=== PATIENT | female | born 1960 | race Caucasian/White ===

== ENCOUNTER 2022-06-24 13:10 | Outpatient (CLI) | payer MEDICARE, OTHER, SELFPAY ==
[2022-06-24 15:20] LABS: Prothrombin Time 31.7 Seconds
[2022-06-24 15:52] LABS: Creatinine Urine 14.8 mg/dL
[2022-06-24 15:57] LABS: Microalbumin Creatinine Ratio 60 mg/g (0-30); Microalbumin Urine < 1 mg/dL
== END 2022-06-24 13:11 | disposition home or self-care (01) ==
PROVIDERS: PCP Internal Medicine; Visit Provider Internal Medicine
DX: E11.9 Type 2 diabetes mellitus without complications (principal); I48.91 Unspecified atrial fibrillation
CPT/HCPCS: 82043; 82570; 85610

== ENCOUNTER 2022-07-14 13:48 | Outpatient (CLI) | payer OTHER, SELFPAY ==
--- NOTE | 2022-07-14 14:00 | CRLHL7_ITS ---
For Patients: As a result of the Cures Act, medical imaging exams and procedure reports are released immediately into your electronic medical record. You may view this report before your referring provider. If you have questions, please contact your health care provider. BILATERAL SCREENING MAMMOGRAM WITH COMPUTER-AIDED DETECTION AND TOMOSYNTHESIS TECHNIQUE: CC and MLO views were obtained. These mammographic images have been obtained using full-field digital technique. These mammographic images were interpreted with the benefit of computer-aided detection. Breast Tomosynthesis was used in this interpretation. COMPARISON FILM: 03/24/14, 03/01/13. FINDINGS: The breasts are heterogeneously dense, which may obscure small masses IMPRESSION: There is no radiographic evidence for malignancy. ASSESSMENT: BI-RADS Category 1: Negative RECOMMENDATION: Routine screening mammogram in 1 year. A lay language report of this examination will be provided to the patient. Jasper Amador M.D. Diagnostic Radiologist [email or web address] Transcribed: 2:47 p.mStephany baca/Dictated by: Jasper Amador MD @ 07/15/2022 9:51:00 AM (Electronically Signed)
--- NOTE | 2022-09-11 18:32 | ED.NURSE ---
Patient called as her med planning assistant (lives at [facility]) gave her incorrect evening medications. She reports she was given oxycodone instead of diluadid. She wants advice on what to take, interactions, etc. Patient advised to contact poison control for information re: interactions, etc. Patient understands she can call primary care # for triage line assistance as well. We are available to evaluate patient in emergency department if she'd like. Patient verbalizes understanding, denies further questions or concerns.
== END 2022-07-14 13:49 | disposition home or self-care (01) ==
LOC: MAMMO 13:50
PROVIDERS: PCP Internal Medicine; Visit Provider Internal Medicine
DX: Z12.31 Encounter for screening mammogram for malignant neoplasm of breast (principal); R92.2 Inconclusive mammogram
CPT/HCPCS: 77063; 77067

== ENCOUNTER 2022-11-11 09:28 | Outpatient (CLI) | payer MEDICAID, SELFPAY ==
--- OUTSIDE RECORDS SUMMARY | 2022-11-11 09:31 | XMS_ITS | Continuity of Care Document ---
Author Name Unknown Organization [facility] Address [address] [place] [id number] Care Team Providers Care Breaker Engineer Name Role Phone Simba Lowry CRNA Unavailable Unavailable Procedures Procedure Date ANESTH, HEAD/NECK/PTRUNK ANESTH PERC IMG TX SP PROC Advance Directives Directive Yes / No Effective Date File Name No Information Encounters Encounter Description Practice Location Reason(s) For Visit Diagnoses Date Provider Providers Copied on Encounter [facility], [address] [place] [address], [id number], [facility] No Information Alen Cottrell. [address] [place] [address], [id number], . tel:[phone] Referring Provider: Michelle Cummings, [address] [place] [address], [id number] . tel:[phone] [facility], [address] [place] [address], [id number], [facility] No Information Asad Ramirez. [address], [place], [place], [id number], . tel:[phone] Referring Provider: Too Del Cid, [address] [place], [address] . tel:[phone] Family History Family Member Type Diagnosis Age At Onset No Information Payers Payer name Insurance type Covered alliance party ID Authoriza tion(s) No Information Social History Type Description Quantity Date Captured Comments Sex Female Smoking Status No Information Chief Complaint And Reason For Visit No Information Reason For Referral Reason For Referral No Information Plan Of Treatment Date Type Action Status No Information History Of Present Illness Encounter Date Complaint History Of Prese nt Illness No Information Functional Status Date Functional Assessmen t No Information Instructions Date Instruction Additional Infor mation No Information Assessments Type Assessment Date No Information Patient Care Teams Name Effective Dates (start - stop) Status Members No Information
--- OUTSIDE RECORDS SUMMARY | 2022-11-11 09:31 | XMS_ITS | Continuity of Care Document ---
Author Name Unknown Organization [facility] Address [address] [place] [id number] Care Team Providers Care Road Inspector Name Role Phone [facility] Unavailable Unav ailable Procedures Procedure Date IMPLANT NEUROELECTRODES IMPLANT NEUROELECTRODES INSRT/REDO SPINE N GENERATOR Implt neurostim elctr each FLUOROGUIDE FOR SPINE INJECT IMPLANT NEUROELECTRODES IMPLANT NEUROELECTRODES IMPLANT NEUROELECTRODES Implt neurostim elctr each Inj, bupivacaine liposome FLUOROGUIDE FOR SPINE INJECT No Charge For Visit Per Prov Advance Directives Directive Yes / No Effective Date File Name No Information Encounters Encounter Description Practice Location Reason(s) For Visit Diagnoses Date Provider Providers Copied on Encounter [facility], [address] [place] [address], [id number], [facility] No Information [facility]. [address] [place], [place], [id number], [place]. tel:[phone] Referring Provider: Michelle Cummings, [address] [place], [address]. tel:[phone] [facility], [address] [place], [place], [id number], [facility] No Information [facility]. [address] [facility] [place], [place], [id number], [place]. tel:[phone] Referring Provider: Too Del Cid, [address] [place], [address]. tel:[phone] [facility], [address] [place], [place], [id number], [place] [facility] No Information [facility]. [address] [place], [place], [id number], . tel:[phone] Referring Provider: Michelle Cummings, [address] [place], [address]. tel:[phone] Family History Family Member Type Diagnosis Age [...]
--- OUTSIDE RECORDS SUMMARY | 2022-11-11 09:32 | XMS_ITS | Continuity of Care Document ---
Author Name Unknown Organization [facility] rajiv Address [address] [place] [address] Phone Care Team Providers Care Hotel General Manager Name Role Phone Dionte Granados Unavailable Unavailable Allergies, Adverse Reactions, Alerts Substance Reaction Status Criticality ragweed pollen Active No Informatio n tree and shrub pollen Active No Inf ormation mold Active No Information TRAMADOL HCL Rash Active No Information troleandomycin Active No Informatio n tolmetin Active No Information sulfanilamide Rash Active No Information penicillin G procaine Rash Active No Inf ormation NSAIDS (Non-Steroidal Anti-Inflammatory Drug) Active No Information naproxen Rash Active No Information Macrolide Antibiotics Active No Inf ormation etodolac GI ProblemsEdema Active No Informat ion ciprofloxacin Rash Active No Information Cephalosporins Unknown Active No Informatio n CEPHALEXIN MONOHYDRATE Rash Active No In formation trimethoprim RashEdema Active No Information sulfamethoxazole RashEdema Active No Informat ion aspirin GI Bleeding Active No Information adhesive Rash Active No Information Sulfa (Sulfonamide Antibiotics) Rash Active No Information PENICILLIN Rash Active No Information erythromycin base RashEdema Active No Informa tion cephalexin RashEdema Active No Information Medications Medication Instructions Dosage Effective Dates (start - stop) Status Comments pregabalin 150 mg capsule take 1 capsule by oral route 3 times every day 150 MG - Active topiramate 25 mg tablet Take two tablets at bedtime - Active haloperidol 0.5 mg tablet Take 0.5-1 Tablets (0.25-0.5 mg) by mouth 2 times daily if needed for Agitation (anxiety). Further refills will be prescribed during an appointment - Active hydroxyzine HCl 50 mg tablet Take one tablet every six hours as needed - Active cyclobenzaprine 10 mg tablet take 1 tablet by oral route 3 times every day 10 MG - Active triamcinolone acetonide 0.1 % topical cream APPLY THIN LAYER TO ITCHY AREA OF SKIN 1-2X DAILY FOR UP TO 2 WEEKS AT A TIME , TAKE 2 WEEKS OF THEN REPEAT NEEDED FOR FLARES - Active ketoconazole 2 % shampoo WASH TO AFFECTED AREA ON SCALP AND CHEST 3 TIMES WEEKLY LATHER AND LET SIT FOR SEVERAL MINUTES BEFORE RINSING - Active clindamycin 1 % lotion - Active sumatriptan 50 mg tablet One tablet at onset of migraine headache, may repeat in 2 hours if needed. Give at minimum 2hrs apart. Max Dose: 100mg per 24hrs. Maximum use 10 tablets per month. - Active Triple Antibiotic 3.5 mg-400 unit-5,000 unit/gram topical ointment - Active cephalexin 500 mg capsule take 1 capsule by oral route every 6 hours 500 MG - Active dextroamphetamine sulfate 5 mg tablet take 1 tablet by oral route 2 times every day 5 MG - Active HYDROXYZINE HCL (unknown strength) Not Available - Active prazosin 1 mg capsule take 2 capsule by oral route every day 2 MG - Active nystatin 100,000 unit/gram topical cream apply by topical route 3 times every day to the affected area(s) Not Available - Active ammonium lactate 12 % topical cream - Active senna 8.6 mg capsule take 1 capsule by oral route 2 times every day 8.6 MG - Active sotalol 120 mg tablet take 1 tablet by oral route 2 times every day 120 MG - Active loratadine 10 mg tablet take 1 tablet by oral route every day 10 MG - Active metoprolol tartrate 100 mg tablet take 1 tablet by oral route 2 times every day with meals 100 MG - Active Vitamin D2 1,250 mcg (50,000 unit) capsule - Active Linda-Lanta 200 mg-200 mg-20 mg/5 mL oral suspension take 10 milliliter by oral route between meals and at bedtime as needed as needed 10.00 milliliter - Active Replens vaginal gel as needed - Active cyanocobalamin (vit B-12) 1,000 mcg/mL injection solution inject 1 milliliter by subcutaneous route every month 1000 MCG - Active doxycycline monohydrate 50 mg capsule take 1 capsule by oral route every 12 hours 50 MG - Active ALBUTEROL SULFATE (unknown strength) inhale 1 milliliter by nebulization route 4 times every day Not Available - Active ondansetron HCl 4 mg tablet take 1 tablet by oral route every day 4 MG - Active Beano 300 unit disintegrating tablet - Active Gas Relief Extra Strength 125 mg capsule - Active metformin 500 mg tablet take 1 tablet by oral route every day with morning and evening meals 500 MG - Active polyethylene glycol 3350 17 gram/dose oral powder take (17G) by oral route every day mixed with 8 oz. water, juice, soda, coffee or tea - Active Wixela Inhub 250 mcg-50 mcg/dose powder for inhalation inhale 1 puff by inhalation route 2 times every day in the morning and evening approximately 12 hours apart 1.00 puff - Active zolpidem 5 mg tablet take 1 tablet by ORAL route every day at bedtime as needed 5 MG - Active Biotene Dry Mouth Oral Rinse mouthwash - Active WARFARIN SODIUM (unknown strength) take 1 tablet by oral route every day Not Available - Active Senexon-S 8.6 mg-50 mg tablet take 2 tablet by oral route 2 times every day 2 tablet - Active Flonase Allergy Relief 50 mcg/actuation nasal spray,suspension spray 1 - 2 spray by intranasal route every day in each nostril as needed 50-100 MCG - Active chlorhexidine gluconate 0.12 % mouthwash place 15 milliliter by mucous membrane route 2 times every day in the mouth (after meals), swish in mouth for 30 seconds then spit out 15.00 milliliter - Active Banophen 25 mg capsule take 2 capsule by oral route every 4 - 6 hours as needed as needed 50 MG - Active Nystop 100,000 unit/gram topical powder apply by topical route 2 times every day to the affected area(s) as needed 0.00 - Active Milk of Magnesia 400 mg/5 mL oral suspension take 30 milliliter by oral route every day as needed, followed by a full glass (8 oz) of liquid 30.00 milliliter - Active Lyrica 100 mg capsule take 1 capsule by oral route 3 times every day 100 MG - Active pantoprazole 40 mg tablet,delayed release take 1 tablet by oral route every day 40 MG - Active sertraline 100 mg tablet take 1 tablet by oral route every day 100 MG - Active torsemide 20 mg tablet take 2 tablet by oral route every day 40 MG - Active clindamycin HCl 150 mg capsule take 1 capsule by oral route every 6 hours 150 MG - Active hydrocortisone 1 % topical ointment apply by topical route 2 times every day a thin layer to the affected area(s) 0.00 - Active Tylenol Extra Strength 500 mg tablet take 2 tablet by oral route every 4 - 6 hours as needed not to exceed 8 tablets per 24hrs 1000 MG - Active atorvastatin 40 mg tablet take 1 tablet by oral route every day 40 MG - Active azelastine 137 mcg (0.1 %) nasal spray aerosol spray 2 spray by intranasal route 2 times every day in each nostril - Active Calci-Mix 500 mg calcium (1,250 mg) capsule - Active ipratropium 0.5 mg-albuterol 3 mg (2.5 mg base)/3 mL nebulization soln inhale 3 milliliter by nebulization route 4 times every day 3.00 milliliter - Active Dilaudid 2 mg tablet take 1 -2 tablets by oral route every 4 - 6 hours as needed for chronic pain; max 5/day - No Longer Active Fill when able Dilaudid 2 mg tablet take 1 -2 tablets by oral route every 4 - 6 hours as needed for chronic pain; max 5/day - No Longer Active may fill and start 06/30 Emgality Pen 120 mg/mL subcutaneous pen injector inject (120MG) by subcutaneous route every month in the abdomen, thigh, outer upper arm, or buttocks 120 MG - No Longer Active Vistaril 50 mg capsule take 1 capsule by oral route 4 times daily as needed every 4-6 hours - No Longer Active Procedures Procedure Date Foll-up eval q3mo opiod tx OFFICE VISIT, EST TELEMEDICINE Foll-up eval q3mo opiod tx OFFICE VISIT, EST TELEMEDICINE PT EVAL MOD COMPLEX 30 MIN Psych Dx Eval Psych Dx Eval OFFICE/OUTPATIENT VISIT, EST Drug Urine Toxology With Chromatography Drug test def 15-21 classes Foll-up eval q3mo opiod tx OFFICE VISIT, EST TELEMEDICINE Foll-up eval q3mo opiod tx OFFICE VISIT, EST TELEMEDICINE Foll-up eval q3mo opiod tx OFFICE VISIT, EST TELEMEDICINE Foll-up eval q3mo opiod tx OFFICE/OUTPATIENT VISIT, EST Foll-up eval q3mo opiod tx OFFICE/OUTPATIENT VISIT, EST INJECT TRIGGER POINTS, =/> 3 Foll-up eval q3mo opiod tx INJECT TRIGGER POINTS, =/> 3 OFFICE/OUTPATIENT VISIT, EST Foll-up eval q3mo opiod tx OFFICE VISIT, EST TELEMEDICINE INJECT TRIGGER POINTS, =/> 3 Foll-up eval q3mo opiod tx OFFICE/OUTPATIENT VISIT, EST Drug Urine Toxology With Chromatography Drug test def 1-7 classes INJECT TRIGGER POINTS, =/> 3 PT-FOCUSED HLTH RISK ASSMT OFFICE/OUTPATIENT VISIT, EST Foll-up eval q3mo opiod tx Foll-up eval q3mo opiod tx OFFICE VISIT, EST TELEMEDICINE INJECT TRIGGER POINTS, =/> 3 OFFICE/OUTPATIENT VISIT, EST Foll-up eval q3mo opiod tx OFFICE VISIT, EST TELEMEDICINE ANALYZE NEUROSTIM, COMPLEX INJECT TRIGGER POINTS, =/> 3 Foll-up eval q3mo opiod tx OFFICE/OUTPATIENT VISIT, EST INJ TRIGGER POINT, 1/2 MUSCL Foll-up eval q3mo opiod tx OFFICE/OUTPATIENT VISIT, EST INJECT TRIGGER POINTS, =/> 3 Foll-up eval q3mo opiod tx OFFICE/OUTPATIENT VISIT, EST ANALYZE NEUROSTIM, COMPLEX INJECT TRIGGER POINTS, =/> 3 Foll-up eval q3mo opiod tx OFFICE/OUTPATIENT VISIT, EST ANALYZE NEUROSTIM, COMPLEX PT-FOCUSED HLTH RISK ASSMT INJECT TRIGGER POINTS, =/> 3 Foll-up eval q3mo opiod tx OFFICE/OUTPATIENT VISIT, EST INJECT TRIGGER POINTS, =/> 3 Injection, bupivicaine hydro OFFICE/OUTPATIENT VISIT, EST Foll-up eval q3mo opiod tx ANALYZE NEUROSTIM, COMPLEX Foll-up eval q3mo opiod tx OFFICE/OUTPATIENT VISIT, EST SCS Post Op Satellite OFFICE VISIT, EST TELEMEDICINE Foll-up eval q3mo opiod tx SCS Post Op Valorie No Charge For Visit Per Prov IMPLANT NEUROELECTRODES ASC IMPLANT NEUROELECTRODES ASC INSRT/REDO SPINE N GENERATOR OFFICE VISIT, EST TELEMEDICINE Foll-up eval q3mo opiod tx INJECT TRIGGER POINTS, =/> 3 Kenalog Triamcinolone acetonide inj Foll-up eval q3mo opiod tx OFFICE/OUTPATIENT VISIT, EST Ketorolac tromethamine inj SCS Lead Pull Satellite INJECT TRIGGER POINTS, =/> 3 Ketorolac tromethamine inj No Charge For Visit Per Prov SCS Mid Trial Satellite No Charge For Visit Per Prov IMPLANT NEUROELECTRODES ASC IMPLANT NEUROELECTRODES ASC Implt neurostim elctr each FLUOROGUIDE FOR SPINE INJECTION 020 Foll-up eval q3mo opiod tx OFFICE VISIT, EST TELEMEDICINE 20 Intramuscular Injection Ketorolac tromethamine inj Intramuscular Injection No Charge For Visit Per Prov OFFICE VISIT, EST TELEMEDICINE 20 Foll-up eval q3mo opiod tx OFFICE VISIT, EST TELEMEDICINE 20 Foll-up eval q3mo opiod tx OFFICE VISIT, EST TELEMEDICINE 20 Foll-up eval q3mo opiod tx Foll-up eval q3mo opiod tx OFFICE VISIT, EST TELEMEDICINE 20 Psych Dx Eval Foll-up eval q3mo opiod tx OFFICE VISIT, EST TELEMEDICINE 20 OFFICE VISIT, EST TELEMEDICINE 20 Foll-up eval q3mo opiod tx Foll-up eval q3mo opiod tx OFFICE VISIT, EST TELEMEDICINE 20 Foll-up eval q3mo opiod tx OFFICE VISIT, EST TELEMEDICINE 20 Foll-up eval q3mo opiod tx OFFICE VISIT, EST TELEMEDICINE 20 Foll-up eval q3mo opiod tx OFFICE VISIT, EST TELEMEDICINE 20 OFFICE VISIT, [facility] TELEMEDICINE 20 Foll-up eval q3mo opiod tx OFFICE/OUTPATIENT VISIT, EST Drug Urine Toxology With Chromatography SCS Trial Procedure Ordered INJ TRIGGER POINT, 1/2 MUSCL OFFICE/OUTPATIENT VISIT, NEW Advance Directives Directive Yes / No Effective Date File Name No Information Encounters Encounter Description Practice Location Reason(s) For Visit Diagnoses Date Provider Providers Copied on Encounter OFFICE VISIT, [facility], [address] [place], [place], [id number] , [place] tel:[phone] [facility] [place] Widespread pain (chief complaint) Pain in right kneePain in left ankle and joints of left footRadiculopa thy, lumbar regionMyalgia, other sitePostlamine ctomy syndrome, not elsewhere classifiedLong term (current) use of opiate analgesic 3 Mayra Rapp. [address], [place], [place], [id number] , [place]. tel:[phone] anticoagulant prescriber: Aleksey Smith [address], [address]. tel:[phone] Provider: Too Del Cid, [address] [place], [address]. tel:[phone] OFFICE VISIT, [facility], [address] [place], [place], [id number] , [place] tel:[phone] [facility] Widespread pain (chief complaint) Postlaminectom y syndrome, not elsewhere classifiedRadi culopathy, lumbar regionMyalgia, other sitePain in left ankle and joints of left footPain in right kneeLong term (current) use of opiate analgesic 3 Shay Morales. [address], [place], [id number] , [place]. tel:[phone] anticoagulant prescriber: Aleksey Smith [address], [address]. tel:[phone] [facility], [address] [place] [address], [id number] , [place] tel:[phone] [facility] [place] pain (chief complaint) Postlaminectom y syndrome, not elsewhere classified 2 Indu Dalal. [address] [place] [address], [id number] , [place]. tel:[phone] Psych Dx Eval [facility], [address] [place] [address], [id number] , [place] tel:[phone] Telehealth Pain disorder with related psychological factorsPost-tr aumatic stress disorder, unspecified 2 Tess Cristiano Peg. [address] [place] [address], [id number] , [place]. tel:[phone] Referring Provider: Too Del Cid, [address] [place] [address], [address]. tel:[phone] Psych Dx al [facility], [address] [place] [address], [id number] , [place] tel:[phone] Telehealth Pain disorder with related psychological factorsAnxiety disorder 2 Tess Cristiano Peg. [address] [place] [address], [id number] , [place]. tel:[phone] OFFICE/OUTPAT IENT VISIT, EST [facility], [address] [place] [address], [id number] , [place] tel:[phone] [facility] [place] Widespread pain (chief complaint) Pain in right hipPain in right kneePain in left ankle and joints of left footRadiculopa thy, lumbar regionPostlami nectomy syndrome, not elsewhere classifiedLong term (current) use of opiate analgesicMyalg ia, other site 2 Heriberto Gage. [address] [place] [address], [id number] , [place]. [phone] anticoagulant prescriber: Aleksey Smith, [address], [address]. tel:[phone] Provider: Too Del Cid, [address] [place] [address], [id number]. tel:[phone] OFFICE VISIT, EST TELEMEDICINE [facility], [address] [place] [address], [id number] , [place] tel:[phone] [facility] [place] Back Pain (chief complaint) Pain in right kneePain in left ankle and joints of left footRadiculopa thy, lumbar regionMyalgia, other sitePostlamine ctomy syndrome, not elsewhere classifiedLong term (current) use of opiate analgesicPain in right hip Apr- 2 Nunezjonny Rapp. [address] [place] [address] [address], [place], [place], [id number] , [place]. tel:[phone] anticoagulant prescriber: Aleksey Smith, [address], [address]. tel:[phone] OFFICE VISIT, EST TELEMEDICINE [facility], [address] [place] [address], [id number] , [place] tel:[phone] [facility] Back Pain (chief complaint) Pain in right kneePain in left ankle and joints of left footRadiculopa thy, lumbar regionMyalgia, other sitePostlamine ctomy syndrome, not elsewhere classifiedLong term (current) use of opiate analgesic Mar- 2 Nunez Dionte. [address] [place] [address] [address], [place], [place], [id number] , [place]. tel:[phone] anticoagulant prescriber: Aleksey Smith, [address], [address]. tel:[phone] OFFICE VISIT, EST TELEMEDICINE [facility], [address] [place] [address], [id number] , [place] tel:[phone] [facility] Back Pain (chief complaint) Pain in right kneePain in left ankle and joints of left footRadiculopa thy, lumbar regionMyalgia, other sitePostlamine ctomy syndrome, not elsewhere classifiedLong term (current) use of opiate analgesic Sep-2 2 Nunez Dionte. [address] [place] [address] [address], [place], [place], [id number] , [place]. tel:[phone] Referring Provider: Too Del Cid, [address] [place] [address], [address]. tel:[phone] OFFICE/OUTPAT IENT VISIT, [facility], [address] [place] [address], [id number] , [place] tel:[phone] [facility] Back Pain (chief complaint) Pain in right kneePain in right ankle and joints of right footPain in left ankle and joints of left footRadiculopa thy, lumbar regionMyalgia, other sitePostlamine ctomy syndrome, not elsewhere classifiedLong term (current) use of opiate analgesic 2 Nunez Dionte. [address] [place] [address] [address] [facility] [address], [place], [place], [id number] , [place]. tel:[phone] Referring Provider: Too Del Cid, [address] [place] [address], [id number]. tel:[phone] [facility], [address] [place] [address], [id number] , [place] tel:[phone] [facility] No Information 2 Will Too. [address] [place] [address], [id number] , [place]. tel:[phone] OFFICE/OUTPAT IENT VISIT, [facility], [address] [place] [address], [id number] , [place] tel:[phone] [facility] Back Pain (chief complaint) Pain in right shoulderPain in right kneePain in right ankle and joints of right footPain in left ankle and joints of left footRadiculopa thy, lumbar regionMyalgia, other sitePostlamine ctomy syndrome, not elsewhere classifiedLong term (current) use of opiate analgesic 2 Nuneznadeen Rapp. [address] [place] [address] [address], [place], [id number] , [place]. tel:[phone] Referring Provider: Too Del Cid, [address] [place] [address], [id number]. tel:[phone] OFFICE/OUTPAT IENT VISIT, [facility], [address] [place] [address], [id number] , [place] [phone] [facility] Back Pain (chief complaint) Chronic migraine without aura, intractable, without status migrainosusPai n in right shoulderPain in right kneePain in right ankle and joints of right footPain in left ankle and joints of left footRadiculopa thy, lumbar regionMyalgia, other sitePostlamine ctomy syndrome, not elsewhere classifiedLong term (current) use of opiate analgesicSpond ylosis without myelopathy or radiculopathy, lumbar region 2 Mayra Rapp. [address] [place] [address] [address], [facility] [place], [id number] , [place]. tel:[phone] Referring Provider: Too Del Cid, [address] [place] [address], [id number]. tel:[phone] OFFICE VISIT, EST [facility], [address] [place] [address], [id number] , [place] [phone] [facility] Back Pain (chief complaint) Chronic migraine without aura, intractable, without status migrainosusPai n in right shoulderPain in right kneeRadiculopa thy, lumbar regionMyalgia, other sitePostlamine ctomy syndrome, not elsewhere classifiedLong term (current) use of opiate analgesicPain in left ankle and joints of left footPain in right ankle and joints of right foot 2 Mayra Rapp. [address] [place] [address] [address], [place], [id number] , [place]. [phone] OFFICE/OUTPAT IENT VISIT, [facility], [address] [place] [address], [id number] , [place] [phone] [facility] Back Pain (chief complaint) Myalgia, other sitePain in right shoulderPain in right kneeRadiculopa thy, lumbar regionPostlami nectomy syndrome, not elsewhere classifiedLong term (current) use of opiate analgesicChron ic migraine without aura, intractable, without status migrainosus Aug- 2 Mayra Rapp. [address] [place] [address] [address], [place], [place], [id number] , [place]. tel:[phone] Referring Provider: Too Del Cid, [address] [place] [address], [id number]. tel:[phone] [facility], [address] [place] [address], [id number] , [place] tel:[phone] [facility] No Information 2 Will Too. [address] [place] [address], [id number] , [place]. tel:[phone] [facility], [address] [place] [address], [id number] , [place] tel:[phone] [facility] No Information 2 Mayra Rapp. [address] [place] [address] [address], [place], [place], [id number] , [place]. tel:[phone] Referring Provider: Too Del Cid, [address] [place] [address], [address]. tel:[phone] OFFICE/OUTPAT IENT VISIT, EST [facility], [address] [place] [address], [id number] , [place] tel:[phone] [facility] Back Pain (chief complaint) Radiculopathy, lumbar regionMyalgia, other sitePostlamine ctomy syndrome, not elsewhere classifiedLong term (current) use of opiate analgesicEncou nter for therapeutic drug level monitoringEnco unter for screening for other disorderPain in right shoulderPain in right knee Jul- 2 Mayra Rapp. [address] [place] [address] [address], [place], [place], [id number] , [place]. tel:[phone] Referring Provider: Caleb Ontiveros, [place] [address] [place], [address]. tel:[phone] OFFICE VISIT, [facility], [address] [place] [address], [id number] , [place] tel: [phone] [facility] Back Pain (chief complaint) Postlaminectom y syndrome, not elsewhere classifiedRadi culopathy, lumbar regionMyalgia, other siteLong term (current) use of opiate analgesic 2 Mayra Rapp. [address] [place] [address] [address], [place], [place], [id number] , [place]. tel:[phone] Referring Provider: Too Del Cid, [address] [place] [address], [address]. tel:[phone] OFFICE/OUTPAT IENT VISIT, [facility], [address] [place] [address], [id number] , [place] tel:[phone] [facility] Back Pain (chief complaint) Myalgia, other sitePostlamine ctomy syndrome, not elsewhere classifiedRadi culopathy, lumbar regionLong term (current) use of opiate analgesic 1 Mayra Rapp. [address] [place] [address] [address], [place], [place], [id number] , [place]. tel:[phone] Referring Provider: Too Del Cid, [address] [place] [address], [address]. tel:[phone] OFFICE VISIT, [facility], [address] [place] [address], [id number] , [place] tel:[phone] [facility] low back pain (chief complaint) Radiculopathy, lumbar regionMyalgia, other siteLong term (current) use of opiate analgesicPostl aminectomy syndrome, not elsewhere classified Nov- 1 Mayra Rapp. [address] [place] [address] [address], [place], [place], [id number] , [place]. tel:[phone] Referring Provider: Too Del Cid, [address] [place] [address], [address]. tel:[phone] [facility], [address] [place] [address], [id number] , [place] tel:[phone] [facility] Postlaminectom y syndrome, not elsewhere classified 1 Nuneznadeen Wilburnel. [address] [place] [address] [address], [place], [place], [id number] , [place]. tel:[phone] Referring Provider: Too Del Cid, [address] [place] [address], [address]. tel:[phone] OFFICE/OUTPAT IENT VISIT, [facility], [address] [place] [address], [id number] , [place] tel:[phone] [facility] Widespread pain (chief complaint) Postlaminectom y syndrome, not elsewhere classifiedRadi culopathy, lumbar regionMyalgia, other siteLong term (current) use of opiate analgesic 1 Mayra Rapp. [address] [place] [address] [address], [place], [place], [id number] , [place]. tel:[phone] Referring Provider: Too Del Cid, [address] [place] [address], [address]. tel:[phone] [facility], [address] [place] [address], [id number] , [place] tel:[phone] [facility] No Information 1 Mayra Rapp. [address] [place] [address] [address], [place], [place], [id number] , [place]. tel:[phone] Referring Provider: Too Del Cid, [address] [place] [address], [address]. tel:[phone] OFFICE/OUTPAT IENT VISIT, [facility], [address] [place] [address], [id number] , [place] tel:[phone] [facility] Widespread pain (chief complaint) Postlaminectom y syndrome, not elsewhere classifiedRadi culopathy, lumbar regionMyalgia, other siteLong term (current) use of opiate analgesic 1 Mayra Rapp. [address] [place] [address] [address], [place], [place], [id number] , [place]. [phone] Referring Provider: Too Del Cid, [address] [place] [address], [address]. tel:[phone] OFFICE/OUTPAT IENT VISIT, [facility], [address] [place] [address], [id number] , [place] tel:[phone] [facility] Widespread pain (chief complaint) Postlaminectom y syndrome, not elsewhere classifiedRadi culopathy, lumbar regionMyalgia, other siteLong term (current) use of opiate analgesic 1 Mayra Rapp. [address] [place] [address] [address], [place], [place], [id number] , [place]. [phone] Referring Provider: Too Del Cid, [address] [place] [address], [address]. tel:[phone] [facility], [address] [place] [address], [id number] , [place] [phone] [facility] Postlaminectom y syndrome, not elsewhere classified 1 Mayra Rapp. [address] [place] [address] [address], [place], [place], [id number] , [place]. [phone] Referring Provider: Too Del Cid, [address] [place] [address], [address]. tel:[phone] OFFICE/OUTPAT IENT VISIT, [facility], [address] [place] [address], [id number] , [place] [phone] [facility] Widespread pain (chief complaint) Radiculopathy, lumbar regionMyalgia, other siteLong term (current) use of opiate analgesicPostl aminectomy syndrome, not elsewhere classified 1 Mayra Rapp. [address] [place] [address] [address], [place], [place], [id number] , [place]. [phone] Referring Provider: Too Del Cid, [address] [place] [address], [address]. tel:[phone] [facility], [address] [place] [address], [id number] , [place] tel:[phone] [facility] Postlaminectom y syndrome, not elsewhere classified Apr-0 - 1 Mayra Rapp. [address] [place] [address] [address], [place], [place], [id number] , [place]. tel:[phone] Referring Provider: Too Del Cid, [address] [place] [address], [address]. tel:[phone] OFFICE/OUTPAT IENT VISIT, [facility], [address] [place] [address], [id number] , [place] tel:[phone] [facility] Widespread pain (chief complaint) Postlaminectom y syndrome, not elsewhere classifiedRadi culopathy, lumbar regionMyalgia, other siteLong term (current) use of opiate analgesicEncou nter for screening for other disorder Apr-0 - 1 Mayra Rapp. [address] [place] [address] [address], [place], [place], [id number] , [place]. tel:[phone] Referring Provider: Too Del Cid, [address] [place] [address], [address]. tel:[phone] OFFICE/OUTPAT IENT VISIT, [facility], [address] [place] [address], [id number] , [place] tel:[phone] [facility] Widespread pain (chief complaint) Postlaminectom y syndrome, not elsewhere classifiedRadi culopathy, lumbar regionMyalgia, other siteLong term (current) use of opiate analgesic Mar-0 1 Mayra Rapp. [address] [place] [address] [address], [place], [place], [id number] , [place]. tel:[phone] Referring Provider: Too Del Cid, [address] [place] [address], [address]. tel:[phone] [facility], [address] [place] [address], [id number] , [place] [phone] [facility] [place] Postlaminectom y syndrome, not elsewhere classified 1 Mayra Rapp. [address] [place] [address] [address], [facility], [place], [id number] , [place]. [phone] Referring Provider: Too Del Cid, [address] [place] [address], [address]. tel:[phone] [facility], [address] [place] [address], [id number] , [place] tel:[phone] [facility] [place] No Information 1 Mayra Rapp. [address] [place] [address] [address], [place], [place], [id number] , [place]. [phone] OFFICE/OUTPAT IENT VISIT, EST [facility], [address] [place] [address], [id number] , [place] tel:[phone] [facility] Widespread pain (chief complaint) Postlaminectom y syndrome, not elsewhere classifiedRadi culopathy, lumbar regionMyalgia, other siteLong term (current) use of opiate analgesicPain in right kneeChronic pain syndrome 1 Mayra Rapp. [address] [place] [address] [address], [place], [place], [id number] , [place]. tel:[phone] Referring Provider: Too Del Cid, [address] [place] [address], [address]. tel:[phone] OFFICE VISIT, EST TELEMEDICINE [facility], [address] [place] [address], [id number] , [place] [phone] [facility] [place] Widespread pain (chief complaint) Postlaminectom y syndrome, not elsewhere classifiedRadi culopathy, lumbar regionMyalgia, other siteLong term (current) use of opiate analgesicPain in right kneeChronic pain syndrome 0 Nunez Dionte. [address] [facility] [address], [place], [place], [id number] , [place]. tel:[phone] Referring Provider: Too Del Cid, [address] [place] [address], [address]. tel:[phone] [facility], [address] [place] [address], [id number] , [place] tel:[phone] [facility] Postlaminectom y syndrome, not elsewhere classified 0 Nunez Dionte. [address] [facility] [address], [place], [place], [id number] , [place]. tel:[phone] Referring Provider: Too Del Cid, [address] [place] [address], [address]. tel:[phone] [facility], [address] [place] [address], [id number] , [place] tel:[phone] [facility] Postlaminectom y syndrome, not elsewhere classified 0 Emiliano Martinez. [address] [place] [address], [id number] , [place]. tel:[phone] Referring Provider: Too Del Cid, [address] [place] [address], [address]. tel:[phone] OFFICE VISIT, EST TELEMEDICINE [facility], [address] [place] [address], [id number] , [place] tel:[phone] [facility] Widespread pain (chief complaint) Radiculopathy, lumbar regionMyalgia, other siteLong term (current) use of opiate analgesicPain in right kneeChronic pain syndromePostla minectomy syndrome, not elsewhere classified 3 0 Mayra Rapp. [address] [facility] [address], [place], [place], [id number] , [place]. tel:[phone] Referring Provider: Too Del Cid, [address] [place] [address], [address]. tel:[phone] OFFICE/OUTPAT IENT VISIT, EST [facility], [address] [place] [address], [id number] , [place] tel:[phone] [facility] [place] Widespread pain (chief complaint) Myalgia, other siteRadiculopa thy, lumbar regionPostlami nectomy syndrome, not elsewhere classifiedLong term (current) use of opiate analgesicPain in right kneeChronic pain syndrome 0 Mayra Rapp. [address] [facility] [address], [place], [place], [id number] , [place]. tel:[phone] Referring Provider: Too Del Cid, [address] [place] [address], [address]. tel:[phone] [facility], [address] [place] [address], [id number] , [place] tel:[phone] [facility] Postlaminectom y syndrome, not elsewhere classifiedMyal isabel, other site 0 Mayra Hays. [address] [facility] [address], [place], [place], [id number] , [place]. tel:[phone] Referring Provider: Too Del Cid, [address] [place] [address], [address]. tel:[phone] [facility], [address] [place] [address], [id number] , [place] tel:[phone] [facility] [place] Radiculopathy, lumbar regionPostlami nectomy syndrome, not elsewhere classified 0 Mayra Rapp. [address] [facility] [address], [place], [place], [id number] , [place]. tel:[phone] Referring Provider: Too Del Cid, [address] [place] [address], [address]. tel:[phone] [facility], [address] [place] [address], [id number] , [place] tel: [phone] [facility] No Information Oct-0 6-202 0 Will Too. [address] [place] [address], [id number] , [place]. tel:[phone] Referring Provider: Too Del Cid, [address] [place] [address], [address]. tel:[phone] OFFICE VISIT, EST TELEMEDICINE [facility], [address] [place] [address], [id number] , [place] tel:[phone] [facility] [place] Widespread pain (chief complaint) Radiculopathy, lumbar regionLong term (current) use of opiate analgesicMyalg ia, other sitePain in right kneeChronic pain syndromePostla minectomy syndrome, not elsewhere classified Sep-2 5-202 0 Mayra Rapp. [address] [facility] [address], [place], [place], [id number] , [place]. tel:[phone] Referring Provider: Too Del Cid, [address] [place] [address], [address]. tel:[phone] [facility], [address] [place] [address], [id number] , [place] tel:[phone] [facility] Radiculopathy, lumbar region Sep-0 3-202 0 Cummings Michelle. [address] [place] [address], [id number] , [place]. tel:[phone] Referring Provider: Too Del Cid, [address] [place] [address], [address]. tel:[phone] [facility], [address] [place] [address], [id number] , [place] tel:[phone] [facility] No Information Sep-0 3-202 0 Cummings Michelle. [address] [place] [address], [id number] , [place]. tel:[phone] Referring Provider: Too Del Cid, [address] [place] [address], [address]. tel:[phone] OFFICE VISIT, EST TELEMEDICINE [facility], [address] [place] [address], [id number] , [place] tel:[phone] [facility] [place] Widespread pain (chief complaint) Postlaminectom y syndrome, not elsewhere classifiedLong term (current) use of opiate analgesicRadic ulopathy, lumbar regionMyalgia, other sitePain in right kneeChronic pain syndrome 0 Nunez Dionte. [address] [place] [address] [address], [facility], [place], [id number] , [place]. tel: [phone] Referring Provider: Too Del Cid, [address] [place] [address], [address]. tel:[phone] [facility], [address] [place] [address], [id number] , [place] tel: [phone] [facility] [place] Postlaminectom y syndrome, not elsewhere classified 0 Nunez Dionte. [address] [place] [address] [address], [facility], [place], [id number] , [place]. tel: [phone] OFFICE VISIT, EST TELEMEDICINE [facility], [address] [place] [address], [id number] , [place] tel: [phone] [facility] Widespread pain (chief complaint) Pain in right kneeChronic pain syndromePostla minectomy syndrome, not elsewhere classifiedLong term (current) use of opiate analgesicRadic ulopathy, lumbar regionMyalgia, other site 0 Nunez Dionte. [address] [place] [address] [address], [place], [place], [id number] , [place]. tel:[phone] Referring Provider: Too Del Cid, [address] [place] [address], [address]. tel:[phone] OFFICE VISIT, EST TELEMEDICINE [facility], [address] [place] [address], [id number] , [place] tel:[phone] [facility] Widespread pain (chief complaint) Pain in right kneeChronic pain syndromePostla minectomy syndrome, not elsewhere classifiedLong term (current) use of opiate analgesicRadic ulopathy, lumbar regionMyalgia, other site 0 Mayra Rapp. [address] [place] [address] [address], [place], [place], [id number] , [place]. tel:[phone] Referring Provider: Too Del Cid, [address] [place] [address], [address]. tel:[phone] OFFICE VISIT, EST TELEMEDICINE [facility], [address] [place] [address], [id number] , [place] tel:[phone] [facility] Widespread pain (chief complaint) Postlaminectom y syndrome, not elsewhere classifiedPain in right kneeChronic pain syndromeLong term (current) use of opiate analgesicRadic ulopathy, lumbar regionMyalgia, other site 0 Mayra Rapp. [address] [place] [address] 100, [place], [place], [id number] , [place]. tel:[phone] Referring Provider: Too Del Cid, [address] [place] [address], [address]. tel:[phone] Psych Dx Eval [facility], [address] [place] [address], [id number] , [place] tel:[phone] [facility] Pain disorder with related psychological factorsPost-tr aumatic stress disorder, unspecified 0 Tess Aguialr. [address] [place] [address], [id number] , [place]. [phone] Referring Provider: Too Del Cid, [address] [place] [address], [address]. tel:[phone] OFFICE VISIT, EST TELEMEDICINE [facility], [address] [place] [address], [id number] , [place] [phone] [facility] Widespread pain (chief complaint) Chronic pain syndromePain in right kneePostlamine ctomy syndrome, not elsewhere classifiedLong term (current) use of opiate analgesicMyalg ia, other siteRadiculopa thy, lumbar region 0 Mayra Rapp. [address] [place] [address] [address], [place], [place], [id number] , [place]. tel:[phone] Referring Provider: Too Del Cid, [address] [place] [address], [address]. tel:[phone] OFFICE VISIT, [facility] TELEMEDICINE [facility], [address] [place] [address], [id number] , [place] tel:[phone] [facility] Widespread pain (chief complaint) Chronic pain syndromePain in right kneePostlamine ctomy syndrome, not elsewhere classifiedLong term (current) use of opiate analgesic Amos-0 2-202 0 Nunez Dionte. [address] [place] [address] [address], [place], [place], [id number] , [place]. tel:[phone] Referring Provider: Too Del Cid, [address] [place] [address], [address]. tel:[phone] OFFICE VISIT, [facility], [address] [place] [address], [id number] , [place] tel: [phone] [facility] Widespread pain (chief complaint) Postlaminectom y syndrome, not elsewhere classifiedPain in right kneeChronic pain syndromeLong term (current) use of opiate analgesic September- 0 Nunez Dionte. [address] [place] [address] [address], [place], [place], [id number] , [place]. tel:[phone] Referring Provider: Too Del Cid, [address] [place] [address], [address]. tel:[phone] OFFICE VISIT, EST [facility], [address] [place] [address], [id number] , [place] tel: [phone] [facility] Widespread pain (chief complaint) Postlaminectom y syndrome, not elsewhere classifiedPain in right kneeChronic pain syndromeLong term (current) use of opiate analgesicPain in left hip September-0 - 0 Nunez Dionte. [address] [place] [address] [address], [place], [place], [id number] , [place]. tel:[phone] OFFICE VISIT, EST [facility], [address] [place] [address], [id number] , [place] tel: [phone] [facility] Widespread pain (chief complaint) Postlaminectom y syndrome, not elsewhere classifiedPain in right kneeChronic pain syndromeLong term (current) use of opiate analgesic Apr-2 0-202 0 Nunez Dionte. [address] [place] [address] [address], [place], [place], [id number] , [place]. tel:[phone] Referring Provider: Too Del Cid, [address] [place] [address], [address]. tel:[phone] OFFICE VISIT, EST TELEMEDICINE [facility], [address] [place] [address], [id number] , [place] tel:[phone] [facility] Widespread pain (chief complaint) Postlaminectom y syndrome, not elsewhere classifiedPain in right kneeChronic pain syndromeLong term (current) use of opiate analgesic Apr-0 2-202 0 Nunez Dionte. [address] [place] [address] [address], [place], [place], [id number] , [place]. tel:[phone] Referring Provider: Too Del Cid, [address] [place] [address], [address]. 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 [address] [place] [address] [address], [place], [place], [id number] , [place]. tel:[phone] Referring Provider: Too Del Cid, [address] [place] [address], [address]. tel:[phone] [facility], [address] [place] [address], [id number] , [place] tel:[phone] [facility] [place] No Information Jul- 0-202 0 Mayra Rapp. [address] [place] [address] [address], [facility], [place], [id number] , [place]. tel:[phone] OFFICE/OUTPAT IENT VISIT, [facility], [address] [place], [place], [id number] , [place] tel:[phone] [facility] Widespread pain (chief complaint) Chronic pain syndromePostla minectomy syndrome, not elsewhere classifiedPain in right kneeLong term (current) use of opiate analgesic Jul-0 0 Mayra Rapp. [address] [facility] [address], [place], [place], [id number] , [place]. tel:[phone] Referring Provider: Too Del Cid, [address] [place], [address]. tel:[phone] OFFICE/OUTPAT IENT VISIT, [facility], [address] [place], [place], [id number] , [place] tel:[phone] [facility] Widespread pain (chief complaint) Chronic pain syndromePostla minectomy syndrome, not elsewhere classifiedMyal isabel, other sitePain in right kneeEncounter for therapeutic drug level monitoringLong term (current) use of opiate analgesic 0 Mayra Rapp. [address] [facility] [address], [place], [place], [id number] , [place]. tel:[phone] Referring Provider: Caleb Ontiveros, [facility] [address] [facility], [place], [address]. tel:[phone] Family History Family Member Type Diagnosis Age At Onset No Information Payers Payer name Insurance type Covered libertarian ID Authoriza tiada(s) Harryfermin MA [facility] Replacement [id number] Social History Type Description Quantity Date Captured Comments Alcohol Use Details Unknown Caffeine Use Details Unknown Tobacco Use Status Smoking Status No Information Sex Female Chief Complaint And Reason For Visit From encounter dated '07/17/2022 08:53'. Widespread pain (chief complaint). Description: Severity level is 9. Duration: chronic. It occurs persistently. The problem is worsening. Reason For Referral Reason For Referral No Information Plan Of Treatment Date Type Action Status Goal Order Annual PT. Due on due Goal ALT (SGPT). Due on due Goal OARS. Due on due Goal UDT. Due on due Goal AST (SGOT). Due on due Goal METROLOGY SPECIALIST Scanned. Due on due Goal HUMAN RESOURCES TRAINING MANAGER Paperwork. Due on due Goal Creatinine. Due on due Goal Height. Due on d ue Goal Tobacco Use. Due on due Goal Weight. Due on d ue Goal Lipid panel. Due on due Goal Update Social Hi story. Due on due Goal Unhealthy drug u se screening. Due on due Goal Review Allergy L ist. Due on due Goal FIT-DNA. Due on due Goal Hepatitis C scre ening. Due on due Goal PHQ-9. Due on du e Goal Zoster vaccine ( 1st). Due on due Goal HPV. Due on due Goal FIT. Due on due Goal Medication Recon ciliation. Due on due Goal CT-Colonography. Due on due Goal HUMAN RESOURCES TRAINING MANAGER Paperwork. Due on due Goal OARS. Due on due Goal METROLOGY SPECIALIST Scanned. Due on due Goal ALT (SGPT). Due on due Goal Order Annual PT. Due on due Goal UDT. Due on due Goal Creatinine. Due on due Goal AST (SGOT). Due on due Goal Tobacco Use. Due on due Goal Height. Due on d ue Goal HPV. Due on due Goal FIT-DNA. Due on due Goal PHQ-9. Due on du e Goal Zoster vaccine ( ). Due on due Goal FIT. Due on due Goal Unhealthy drug u se screening. Due on due Goal Review Allergy L ist. Due on due Goal Hepatitis C scre ening. Due on due Goal Update Social Hi story. Due on due Goal Weight. Due on d ue Goal CT-Colonography. Due on due Goal Medication Recon ciliation. Due on due Goal Lipid panel. Due on due Goal ALT (SGPT). Due on due Goal OARS. Due on due Goal HUMAN RESOURCES TRAINING MANAGER Paperwork. Due on due Goal Creatinine. Due on due Goal UDT. Due on due Goal Order Annual PT. Due on due Goal AST (SGOT). Due on due Goal METROLOGY SPECIALIST Scanned. Due on due Goal Unhealthy drug u se screening. Due on due Goal Hepatitis C scre ening. Due on due Goal PHQ-9. Due on du e Goal Height. Due on d ue Goal Weight. Due on d ue Goal FIT-DNA. Due on due Goal Review Allergy L ist. Due on due Goal HPV. Due on due Goal Tobacco Use. Due on due Goal CT-Colonography. Due on due Goal Zoster vaccine ( 1st). Due on due Goal FIT. Due on due Goal Update Social Hi story. Due on due Goal Lipid panel. Due on due Goal Medication Recon ciliation. Due on due Goal Creatinine. Due on due Goal OARS. Due on due Goal METROLOGY SPECIALIST Scanned. Due on due Goal Order Annual PT. Due on due Goal AST (SGOT). Due on due Goal ALT (SGPT). Due on due Goal HUMAN RESOURCES TRAINING MANAGER Paperwork. Due on due Goal UDT. Due on due Goal Zoster vaccine ( ). Due on due Goal CT-Colonography. Due on due Goal Weight. Due on d ue Goal Medication Recon ciliation. Due on due Goal PHQ-9. Due on du e Goal Tobacco Use. Due on due Goal Update Social Hi story. Due on due Goal Review Allergy L ist. Due on due Goal FIT. Due on due Goal Height. Due on d ue Goal FIT-DNA. Due on due Goal HPV. Due on due Goal Hepatitis C scre ening. Due on due Goal Unhealthy drug u se screening. Due on due Goal Lipid panel. Due on due Goal METROLOGY SPECIALIST Scanned. Due on due Goal Zoster vaccine ( ). Due on due Goal Creatinine. Due on due Goal OARS. Due on due Goal AST (SGOT). Due on due Goal Order Annual PT. Due on due Goal UDT. Due on due Goal HUMAN RESOURCES TRAINING MANAGER Paperwork. Due on due Goal ALT (SGPT). Due on due Goal Review Allergy L ist. Due on due Goal Update Social Hi story. Due on due Goal FIT. Due on due Goal Hepatitis C scre ening. Due on due Goal Medication Recon ciliation. Due on due Goal Lipid panel. Due on due Goal FIT-DNA. Due on due Goal PHQ-9. Due on du e Goal Height. Due on d ue Goal Weight. Due on d ue Goal Tobacco Use. Due on due Goal Unhealthy drug u se screening. Due on due Goal CT-Colonography. Due on due Goal HPV. Due on due Goal Creatinine. Due on due Goal HUMAN RESOURCES TRAINING MANAGER Paperwork. Due on due Goal ALT (SGPT). Due on due Goal Order Annual PT. Due on due Goal METROLOGY SPECIALIST Scanned. Due on due Goal OARS. Due on due Goal AST (SGOT). Due on due Goal UDT. Due on due Goal CT-Colonography. Due on due Goal Medication Recon ciliation. Due on due Goal Zoster vaccine ( 1st). Due on due Goal Update Social Hi story. Due on due Goal Unhealthy drug u se screening. Due on due Goal Review Allergy L ist. Due on due Goal PHQ-9. Due on du e Goal HPV. Due on due Goal Weight. Due on d ue Goal FIT-DNA. Due on due Goal Height. Due on d ue Goal Tobacco Use. Due on due Goal FIT. Due on due Goal Hepatitis C scre ening. Due on due Goal Lipid panel. Due on due Goal Creatinine. Due on due Goal METROLOGY SPECIALIST Scanned. Due on due Goal HUMAN RESOURCES TRAINING MANAGER Paperwork. Due on due Goal OARS. Due on due Goal AST (SGOT). Due on due Goal UDT. Due on due Goal ALT (SGPT). Due on due Goal Order Annual PT. Due on due Goal Update Social Hi story. Due on due Goal Height. Due on d ue Goal Review Allergy L ist. Due on due Goal FIT. Due on due Goal FIT-DNA. Due on due Goal Hepatitis C scre ening. Due on due Goal Lipid panel. Due on due Goal PHQ-9. Due on du e Goal Medication Recon ciliation. Due on due Goal CT-Colonography. Due on due Goal HPV. Due on due Goal Weight. Due on d ue Goal Unhealthy drug u se screening. Due on due Goal Zoster vaccine ( 1st). Due on due Goal Tobacco Use. Due on due Goal UDT. Due on due Goal METROLOGY SPECIALIST Scanned. Due on due Goal Creatinine. Due on due Goal ALT (SGPT). Due on due Goal Order Annual PT. Due on due Goal HUMAN RESOURCES TRAINING MANAGER Paperwork. Due on due Goal OARS. Due on due Goal AST (SGOT). Due on due Goal Weight. Due on d ue Goal Height. Due on d ue Goal Unhealthy drug u se screening. Due on due Goal Hepatitis C scre ening. Due on due Goal Update Social Hi story. Due on due Goal Tobacco Use. Due on due Goal FIT-DNA. Due on due Goal CT-Colonography. Due on due Goal Lipid panel. Due on due Goal FIT. Due on due Goal Review Allergy L ist. Due on due Goal PHQ-9. Due on du e Goal Medication Recon ciliation. Due on due Goal HPV. Due on due Goal Zoster vaccine ( 1st). Due on due Goal UDT. Due on due Goal Creatinine. Due on due Goal METROLOGY SPECIALIST Scanned. Due on due Goal OARS. Due on due Goal AST (SGOT). Due on due Goal ALT (SGPT). Due on due Goal Order Annual PT. Due on due Goal HUMAN RESOURCES TRAINING MANAGER Paperwork. Due on due Goal Unhealthy drug u se screening. Due on due Goal Medication Recon ciliation. Due on due Goal CT-Colonography. Due on due Goal PHQ-9. Due on du e Goal Height. Due on d ue Goal FIT-DNA. Due on due Goal HPV. Due on due Goal FIT. Due on due Goal Tobacco Use. Due on due Goal Lipid panel. Due on due Goal Weight. Due on d ue Goal Hepatitis C scre ening. Due on due Goal Zoster vaccine ( ). Due on due Goal Update Social Hi story. Due on due Goal Review Allergy L ist. Due on due Goal METROLOGY SPECIALIST Scanned. Due on due Goal ALT (SGPT). Due on due Goal UDT. Due on due Goal AST (SGOT). Due on due Goal HUMAN RESOURCES TRAINING MANAGER Paperwork. Due on due Goal Order Annual PT. Due on due Goal Creatinine. Due on due Goal OARS. Due on due Goal Height. Due on d ue Goal FIT. Due on due Goal CT-Colonography. Due on due Goal Review Allergy L ist. Due on due Goal HPV. Due on due Goal Weight. Due on d ue Goal Unhealthy drug u se screening. Due on due Goal Tobacco Use. Due on due Goal Medication Recon ciliation. Due on due Goal Zoster vaccine ( ). Due on due Goal FIT-DNA. Due on due Goal Update Social Hi story. Due on due Goal PHQ-9. Due on du e Goal Lipid panel. Due on due Goal Hepatitis C scre ening. Due on due Goal Order Annual PT. Due on due Goal HUMAN RESOURCES TRAINING MANAGER Paperwork. Due on due Goal AST (SGOT). Due on due Goal ALT (SGPT). Due on due Goal UDT. Due on due Goal OARS. Due on due Goal METROLOGY SPECIALIST Scanned. Due on due Goal Creatinine. Due on due Goal CT-Colonography. Due on due Goal Lipid panel. Due on due Goal Update Social Hi story. Due on due Goal Zoster vaccine ( ). Due on due Goal FIT-DNA. Due on due Goal HPV. Due on due Goal FIT. Due on due Goal Tobacco Use. Due on due Goal Review Allergy L ist. Due on due Goal Height. Due on d ue Goal Hepatitis C scre ening. Due on due Goal Medication Recon ciliation. Due on due Goal Weight. Due on d ue Goal PHQ-9. Due on du e Goal Unhealthy drug u se screening. Due on due Goal METROLOGY SPECIALIST Scanned. Due on due Goal HUMAN RESOURCES TRAINING MANAGER Paperwork. Due on due Goal ALT (SGPT). Due on due Goal OARS. Due on due Goal AST (SGOT). Due on due Goal UDT. Due on due Goal Creatinine. Due on due Goal Order Annual PT. Due on due Goal Hepatitis C scre ening. Due on due Goal Update Social Hi story. Due on due Goal Lipid panel. Due on due Goal Height. Due on d ue Goal Weight. Due on d ue Goal FIT. Due on due Goal PHQ-9. Due on du e Goal Unhealthy drug u se screening. Due on due Goal HPV. Due on due Goal FIT-DNA. Due on due Goal Review Allergy L ist. Due on due Goal Zoster vaccine ( 1st). Due on due Goal Medication Recon ciliation. Due on due Goal CT-Colonography. Due on due Goal Tobacco Use. Due on due Goal HUMAN RESOURCES TRAINING MANAGER Paperwork. Due on due Goal Creatinine. Due on due Goal AST (SGOT). Due on due Goal OARS. Due on due Goal ALT (SGPT). Due on due Goal UDT. Due on due Goal METROLOGY SPECIALIST Scanned. Due on due Goal Order Annual PT. Due on due Goal Review Allergy L ist. Due on due Goal HPV. Due on due Goal Weight. Due on d ue Goal CT-Colonography. Due on due Goal FIT. Due on due Goal FIT-DNA. Due on due Goal PHQ-9. Due on du e Goal Medication Recon ciliation. Due on due Goal Unhealthy drug u se screening. Due on due Goal Lipid panel. Due on due Goal Update Social Hi story. Due on due Goal Zoster vaccine ( 1st). Due on due Goal Hepatitis C scre ening. Due on due Goal Height. Due on d ue Goal Tobacco Use. Due on due Goal HUMAN RESOURCES TRAINING MANAGER Paperwork. Due on due Goal UDT. Due on due Goal METROLOGY SPECIALIST Scanned. Due on due Goal Order Annual PT. Due on due Goal Creatinine. Due on due Goal AST (SGOT). Due on due Goal OARS. Due on due Goal ALT (SGPT). Due on due Goal FIT-DNA. Due on due Goal Lipid panel. Due on due Goal HPV. Due on due Goal Medication Recon ciliation. Due on due Goal Weight. Due on d ue Goal Zoster vaccine ( 1st). Due on due Goal FIT. Due on due Goal Review Allergy L ist. Due on due Goal CT-Colonography. Due on due Goal Hepatitis C scre ening. Due on due Goal Height. Due on d ue Goal Update Social Hi story. Due on due Goal Tobacco Use. Due on due Goal PHQ-9. Due on du e Goal Unhealthy drug u se screening. Due on due Goal AST (SGOT). Due on due Goal UDT. Due on due Goal HUMAN RESOURCES TRAINING MANAGER Paperwork. Due on due Goal OARS. Due on due Goal Creatinine. Due on due Goal METROLOGY SPECIALIST Scanned. Due on due Goal Order Annual PT. Due on due Goal ALT (SGPT). Due on due Goal FIT-DNA. Due on due Goal Weight. Due on d ue Goal CT-Colonography. Due on due Goal Lipid panel. Due on due Goal Hepatitis C scre ening. Due on due Goal FIT. Due on due Goal Medication Recon ciliation. Due on due Goal Review Allergy L ist. Due on due Goal Zoster vaccine ( 1st). Due on due Goal Unhealthy drug u se screening. Due on due Goal Update Social Hi story. Due on due Goal PHQ-9. Due on du e Goal Height. Due on d ue Goal HPV. Due on due Goal Tobacco Use. Due on due Goal Order Annual PT. Due on due Goal METROLOGY SPECIALIST Scanned. Due on due Goal UDT. Due on due Goal AST (SGOT). Due on due Goal Creatinine. Due on due Goal OARS. Due on due Goal HUMAN RESOURCES TRAINING MANAGER Paperwork. Due on due Goal ALT (SGPT). Due on due Goal FIT. Due on due Goal PHQ-9. Due on du e Goal Medication Recon ciliation. Due on due Goal Unhealthy drug u se screening. Due on due Goal Review Allergy L ist. Due on due Goal FIT-DNA. Due on due Goal CT-Colonography. Due on due Goal Update Social Hi story. Due on due Goal Lipid panel. Due on due Goal Height. Due on d ue Goal Zoster vaccine ( 1st). Due on due Goal Weight. Due on d ue Goal Hepatitis C scre ening. Due on due Goal HPV. Due on due Goal Tobacco Use. Due on due Goal Order Annual PT. Due on due Goal AST (SGOT). Due on due Goal OARS. Due on due Goal ALT (SGPT). Due on due Goal METROLOGY SPECIALIST Scanned. Due on due Goal Creatinine. Due on due Goal HUMAN RESOURCES TRAINING MANAGER Paperwork. Due on due Goal UDT. Due on due Goal Zoster vaccine ( 1st). Due on due Goal FIT. Due on due Goal Unhealthy drug u se screening. Due on due Goal Weight. Due on d ue Goal Height. Due on d ue Goal Medication Recon ciliation. Due on due Goal HPV. Due on due Goal CT-Colonography. Due on due Goal FIT-DNA. Due on due Goal Tobacco Use. Due on due Goal Review Allergy L ist. Due on due Goal Lipid panel. Due on due Goal PHQ-9. Due on du e Goal Update Social Hi story. Due on due Goal Hepatitis C scre ening. Due on due Goal METROLOGY SPECIALIST Scanned. Due on due Goal OARS. Due on due Goal Creatinine. Due on due Goal HUMAN RESOURCES TRAINING MANAGER Paperwork. Due on due Goal ALT (SGPT). Due on due Goal UDT. Due on due Goal AST (SGOT). Due on due Goal Order Annual PT. Due on due Goal Medication Recon ciliation. Due on due Goal Tobacco Use. Due on due Goal Review Allergy L ist. Due on due Goal PHQ-9. Due on du e Goal Update Social Hi story. Due on due Goal Height. Due on d ue Goal Weight. Due on d ue Goal CT-Colonography. Due on due Goal FIT. Due on due Goal FIT-DNA. Due on due Goal Hepatitis C scre ening. Due on due Goal HPV. Due on due Goal Lipid panel. Due on due Goal Unhealthy drug u se screening. Due on due Goal Zoster vaccine ( 1st). Due on due Goal Order Annual PT. Due on due Goal HUMAN RESOURCES TRAINING MANAGER Paperwork. Due on due Goal AST (SGOT). Due on due Goal METROLOGY SPECIALIST Scanned. Due on due Goal ALT (SGPT). Due on due Goal UDT. Due on due Goal OARS. Due on due Goal Creatinine. Due on due Goal PHQ-9. Due on du e Goal Height. Due on d ue Goal Review Allergy L ist. Due on due Goal Weight. Due on d ue Goal Medication Recon ciliation. Due on due Goal Update Social Hi story. Due on due Goal Tobacco Use. Due on due Goal Order Annual PT. Due on due Goal HUMAN RESOURCES TRAINING MANAGER Paperwork. Due on due Goal AST (SGOT). Due on due Goal METROLOGY SPECIALIST Scanned. Due on due Goal ALT (SGPT). Due on due Goal UDT. Due on due Goal OARS. Due on due Goal Creatinine. Due on due Goal PHQ-9. Due on du e Goal Height. Due on d ue Goal Review Allergy L ist. Due on due Goal Weight. Due on d ue Goal Medication Recon ciliation. Due on due Goal Update Social Hi story. Due on due Goal Tobacco Use. Due on due Goal UDT. Due on due Goal OARS. Due on due Goal Creatinine. Due on due Goal Order Annual PT. Due on due Goal HUMAN RESOURCES TRAINING MANAGER Paperwork. Due on due Goal AST (SGOT). Due on due Goal METROLOGY SPECIALIST Scanned. Due on due Goal ALT (SGPT). Due on due Goal PHQ-9. Due on du e Goal Height. Due on d ue Goal Review Allergy L ist. Due on due Goal Weight. Due on d ue Goal Medication Recon ciliation. Due on due Goal Update Social Hi story. Due on due Goal Tobacco Use. Due on due Goal UDT. Due on due Goal OARS. Due on due Goal Creatinine. Due on due Goal Order Annual PT. Due on due Goal HUMAN RESOURCES TRAINING MANAGER Paperwork. Due on due Goal AST (SGOT). Due on due Goal METROLOGY SPECIALIST Scanned. Due on due Goal ALT (SGPT). Due on due Goal PHQ-9. Due on du e Goal Height. Due on d ue Goal Review Allergy L ist. Due on due Goal Weight. Due on d ue Goal Medication Recon ciliation. Due on due Goal Update Social Hi story. Due on due Goal Tobacco Use. Due on due Goal UDT. Due on due Goal OARS. Due on due Goal Creatinine. Due on due Goal Order Annual PT. Due on due Goal HUMAN RESOURCES TRAINING MANAGER Paperwork. Due on due Goal AST (SGOT). Due on due Goal METROLOGY SPECIALIST Scanned. Due on due Goal ALT (SGPT). Due on due Goal PHQ-9. Due on du e Goal Height. Due on d ue Goal Review Allergy L ist. Due on due Goal Weight. Due on d ue Goal Medication Recon ciliation. Due on due Goal Update Social Hi story. Due on due Goal Tobacco Use. Due on due Goal UDT. Due on due Goal OARS. Due on due Goal Creatinine. Due on due Goal Order Annual PT. Due on due Goal HUMAN RESOURCES TRAINING MANAGER Paperwork. Due on due Goal AST (SGOT). Due on due Goal METROLOGY SPECIALIST Scanned. Due on due Goal ALT (SGPT). Due on due Goal PHQ-9. Due on du e Goal Height. Due on d ue Goal Review Allergy L ist. Due on due Goal Weight. Due on d ue Goal Medication Recon ciliation. Due on due Goal Update Social Hi story. Due on due Goal Tobacco Use. Due on due Goal UDT. Due on due Goal OARS. Due on due Goal Creatinine. Due on due Goal Order Annual PT. Due on due Goal HUMAN RESOURCES TRAINING MANAGER Paperwork. Due on due Goal AST (SGOT). Due on due Goal METROLOGY SPECIALIST Scanned. Due on due Goal ALT (SGPT). Due on due Goal PHQ-9. Due on du e Goal Height. Due on d ue Goal Review Allergy L ist. Due on due Goal Weight. Due on d ue Goal Medication Recon ciliation. Due on due Goal Update Social Hi story. Due on due Goal Tobacco Use. Due on due Goal OARS. Due on due Goal Creatinine. Due on due Goal Order Annual PT. Due on due Goal HUMAN RESOURCES TRAINING MANAGER Paperwork. Due on due Goal AST (SGOT). Due on due Goal METROLOGY SPECIALIST Scanned. Due on due Goal ALT (SGPT). Due on due Goal UDT. Due on due Goal PHQ-9. Due on du e Goal Height. Due on d ue Goal Review Allergy L ist. Due on due Goal Weight. Due on d ue Goal Medication Recon ciliation. Due on due Goal Update Social Hi story. Due on due Goal Tobacco Use. Due on due Goal OARS. Due on due Goal Creatinine. Due on due Goal Order Annual PT. Due on due Goal HUMAN RESOURCES TRAINING MANAGER Paperwork. Due on due Goal AST (SGOT). Due on due Goal METROLOGY SPECIALIST Scanned. Due on due Goal ALT (SGPT). Due on due Goal UDT. Due on due Goal PHQ-9. Due on du e Goal Height. Due on d ue Goal Review Allergy L ist. Due on due Goal Weight. Due on d ue Goal Medication Recon ciliation. Due on due Goal Update Social Hi story. Due on due Goal Tobacco Use. Due on due Goal OARS. Due on due Goal Creatinine. Due on due Goal Order Annual PT. Due on due Goal HUMAN RESOURCES TRAINING MANAGER Paperwork. Due on due Goal AST (SGOT). Due on due Goal METROLOGY SPECIALIST Scanned. Due on due Goal ALT (SGPT). Due on due Goal UDT. Due on due Goal PHQ-9. Due on du e Goal Height. Due on d ue Goal Review Allergy L ist. Due on due Goal Weight. Due on d ue Goal Medication Recon ciliation. Due on due Goal Update Social Hi story. Due on due Goal Tobacco Use. Due on due Goal Tobacco cessation counseling completed [facility], [facility] Referral Ordered: [facility] : Family Medicine (related to Radiculopathy, lumbar region) ordered Referral Referred To: [facility] [address] [place], [address] [phone] Ordered: Referrals: Family Medicine. [facility] ordered Referral Ordered: X-RAY EXAM OF HIPS LT hip ordered Referral Ordered: [facility] : Family Medicine (related to Postlaminectomy syndrome, not elsewhere classified) ordered Referral Referred To: Azael Regan [facility]
[address] [place], [address] [phone] Ordered: Referrals: [facility] : Family Medicine. Azael Regan ordered Future Order: Radiology Order MR I Scan (CDIMRI), Sent on: Sent Future Order: Radiology Order MR Lumbar WO ([id number]), Sent on: Sent Future Order: Radiology Order MR Cervical WO (MRCERVWO), Sent on: Sent Future Order: Radiology Order MR Thoracic WO (MRTHORWO), Sent on: Sent Future Order: Radiology Order MR Shoulder WO Right (MRSHOUWO), Sent on: Sent Future Order: Lab Order Drug Mari t Def 22+ Classes (G0483), Ordered on: Ordered History Of Present Illness Encounter Date Complaint History Of Prese nt Illness Comments: Brandee is present here today for virtual follow up and medication refill for ongoing widespread pain, more so in mid-low back and left ankle. States pain has gotten worse since last OV. Most of today's visit was spent discussing the patient's recent discharge from the clinic d/t her inappropriate behavior and language used toward staff. Patient expresses frustrations with termination.Reports current medication regimen provides 60% pain relief. Denies any side effects with current medication. Medications continue to provide pain relief and allows the patient to do everyday tasks. No other concerns today. Widespread pain Severity level i s 9. Duration: chronic. It occurs persistently. The problem is worsening. Comments: Brandee is present here today for follow up and medication refill for ongoing widespread pain, more so in mid-low back and left ankle. States pain has gotten worse since last OV. She has been schedule for the IT pain pump trial on 07/24 and presents with questions today. Reports current medication regimen provides 60% pain relief. Denies any side effects with current medication. Medications continue to provide pain relief and allows the patient to do everyday tasks, however she had run out of her oral Dilaudid about 2 days ago and is currently experiencing withdrawal symptoms. No other concerns today. Widespread pain Severity level i s 9. Duration: chronic. Location of the pain is lower back, right hip and left ankle. It occurs persistently. The problem is worsening. Pertinent negatives include diarrhea, fatigue, fever and incontinence (urinary). pain Patient is a 62 year old female presenting with complaints of complex severe chronic lower back pain ,hip pain and knee pain that has been on going for around 3 years. She notes that she is currently experiencing severe pain located across her lower back into her right hip and occasionally down the left leg as well as midback pain. Her symptoms also include sharp shooting pain and deep achy pain in her lower back. she also gets hot poker pain in her left foot. Her symptoms are increased with standing, walking, lifting, carrying, bending, and sitting to long. Patient is currently living in an assisted living facility which helps with food prep and cares as needed. She is able to walk only short distance with her wheeled walker and is looking into using her scooter for improved mobility. Symptoms are somewhat relieved with lying down, medications, use of rest and heat. She has tried multiple different interventions, including PT but has very low tolerance due to the pain. She notes that her current level of discomfort limits all of her daily activity including ADLS. She lives in an assisted living and has occasional help with personal cares. She struggles with standing longer than a few minutes for ADLs. . She would like to decrease her overall discomfort to allow her to perform her daily, functional activities with less limitation and an improved quality of life. Patient is hopeful that the implantable pump device will give her adequate relief to perform her daily activities with less limitation.Upper extremity MMT strength assessment unable to be performed due to virtual session. 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 The distance site for this visit was the providers office, the originating site was the patients home. The patient and we understand the limitations of a telemedicine visit and the possibility of missing subtle findings on physical exam. The patient elected to proceed with the visit. Widespread pain Location of the pain is lower back, right hip and left ankle. The client describes it as stiff, sharp and achy. It occurs persistently. The problem is worsening. Symptom is aggravated by bending, walking upstairs, walking downstairs and pulling. Pertinent negatives include diarrhea, fatigue, fever and incontinence (urinary). Comments: Brandee presents for a follow up and medication refill in the setting of chronic low back, right hip and left ankle pain. Overall, pain has worsened since her last office visit. She reports that she is scheduled to undergo a right hip MRI in the near future for worsening discomfort. Patient was meeting with Jose from [employer] today and expressed her frustration with charging. She states that the SCS has not provided great pain relief and that she would like the device explanted. After conversation, she expressed that she would be open to moving the device to the anterior and possibly switching to the rechargeable option. The patient also expressed interest in a IT pain pump, but questioned if she would have to remove the SCS if pursuing the pump. She reports >50% relief with her medication regimen. Denies any side effects. Of note, her medications are managed by her living facility. No other concerns. Back Pain Severity level i s 8. Duration: chronic. The problem is worsening. It occurs persistently. Location of pain is lower back. Comments: Brandee presents for a virtual follow up and medication refill. Patient c/o chronic low back pain with radiation down her BLE. Pain has been worse since last visit. Continues to report difficulties with her [employer] lumbar SCS. She is still interested in pursuing explantation, but has not scheduled at this time. Notes increased pain in her right hip. States she is only able to walk 10-15 weeks. Reports swelling on the lateral aspect. She has completed imaging which was unremarkable, per patient. Inquires about completing an MRI. Her left ankle pain continues to persist. She will f/u with her orthopedic surgeon on 04/30/2022. Medication provides 60% relief and allows for increased functionality per patient intake. Notes decreased efficacy with use of Dilaudid 2mg. Inquires about addition of Tramadol or IT pain pump. Denies side effects from current medication regimen. No other concerns today. Back Pain Duration: chroni c. The problem is stable. It occurs persistently. Location of pain is lower back. Comments: Brandee is here for phone follow up and medication management. Reports her pain today is worse lately and feels it may be due to the weather.Notes that she is still having issues with her [employer] lumbar spinal cord stimulator and will schedule the explant after 04/06/2022. She will plan to update her imaging following her SCS explant. She reports >50% relief with her medication regimen. Denies any side effects. Of note, her medications are managed by her living facility. No other concerns. Back Pain Severity level i s 8. Duration: chronic. The problem is changing in character. It occurs intermittently. Location of pain is middle back, lower back and neck. Pain is radiated to the left calf and right calf. The client describes the pain as deep. Symptoms are aggravated by ascending stairs, changing positions, descending stairs and walking. Symptoms are relieved by pain meds/drugs and rest. Comments: Brandee is here for follow up and medication management. She reports >50% relief with her medication regimen. Denies any side effects. Requests a refill on her Dilaudid today. Of note, her medications are properly manged by her living facility.Reports her pain today is fluctuating. Notes that she is still having issues with her [employer]tronic lumbar spinal cord stimulator. She plans to move forward with her explant as previously discussed, however, transportation is an issue for her.She will plan to update her imaging following her SCS explant. Remains interested in pursuing lumbar RFA. No other concerns. Back Pain Severity level i s 9. Duration: chronic. The problem is worsening. It occurs persistently. The client describes the pain as an ache, burning and sharp. Symptoms are aggravated by running, sitting, standing, twisting, walking and prolonged positioning. Symptoms are relieved by heat, lying down, pain meds/drugs and rest. Comments: Brandee is here today for follow up and medication management. Reports that her low back pain is worsening today. Notes pain in BL legs. States that she has ongoing frustrations with her [employer]onic spinal cord stimulator in regards to charging and programming. Hopes to obtain updated imaging. Reports difficulties getting imaging d/t SCS. Requests explant as it no longer provides relief.She also reports BL (L>R) ankle/foot pain, worsening since last OV, with swelling in her left ankle. Presents wearing left ankle brace. Considering a left ankle fusion.She reports 50% relief with the treatment plan and has been taking her daily medication beginning during the night and runs out in the middle of the day. Denies any side effects. Of note, her medications are currently controlled by her living facility. Patient is not accompanied today. No other concerns. Back Pain Duration: chroni c. The problem is worsening. It occurs persistently. Location of pain is lower back. The client describes the pain as an ache, burning and sharp. Symptoms are aggravated by bending, lifting, running, sitting, standing, twisting, walking and prolonged positioning. Symptoms are relieved by heat, lying down, pain meds/drugs and rest. Comments: Brandee is here today for follow up and medication management. Reports that her low back pain is worsening today. States that she has ongoing frustrations with her [employer]onic spinal cord stimulator in regards to charging and programming. Continues to consider explant and is scheduling imaging for the next week.She also reports BL (L>R) ankle/foot pain, worsening since last OV, with swelling in her left ankle. Presents wearing left ankle brace. Considering a left ankle fusion.She reports 50% relief with the treatment plan and has been taking her daily medication beginning during the night and runs out in the middle of the day. Denies any side effects. Of note, her medications are currently controlled by her living facility. Patient is not accompanied today. No other concerns. Comments: Brandee is here today for follow up medication management. She reports greater than 60% relief with the treatment plan. Denies any side effects. Requests TPIs today. Notes increased pain and inflammation in feet and ankles. Reports new burning sensation. Inquires about RFA.Reports that her mid back pain is worsening today. States that she has ongoing frustrations with her Medtronic spinal cord stimulator in regards to charging and programming. Continues to consider explant.Continues to struggle with worsening right shoulder pain and headaches. She also reports new concern of ankle/foot pain since she was last seen. Endorses significant inflammation that has progressively worsened. She would like to proceed with updated imaging and possible consideration of injection for management.Of note, her medications are currently controlled by her living facility. Patient is not accompanied today. No other concerns. Back Pain Severity level i s 9. Duration: chronic. The problem is worsening. It occurs persistently. The client describes the pain as an ache, burning, sharp and shooting. Symptoms are aggravated by ascending stairs, bending, descending stairs, lifting, lying/rest, running, sitting, standing, twisting, walking, prolonged positioning, housework and movement. Symptoms are relieved by heat, ice, lying down, massage, pain meds/drugs, physical therapy, stretching, rest, sitting and changing positions. Comments: Brandee is here today virtually for medication management and trigger point injections. She reports greater than 50% relief with the treatment plan. Denies any side effects.Reports that her mid back pain is worsening today. States that she has ongoing frustrations with her Medtronic spinal cord stimulator in regards to charging and programming.Continues to struggle with worsening right shoulder pain and headaches. She also reports new concern of ankle/foot pain since she was last seen. Endorses significant inflammation that has progressively worsened. She would like to proceed with updated imaging and possible consideration of injection for management.Of note, her medications are currently controlled by her living facility. Patient is not accompanied today. No other concerns. Back Pain Severity level i s 7. Duration: chronic. The problem is worsening. It occurs persistently. Location of pain is lower back and neck. The client describes the pain as an ache, burning and sharp. Symptoms are aggravated by bending, lying/rest, housework and movement. Symptoms are relieved by heat, ice, lying down, pain meds/drugs, rest and chiropractic. Comments: Brandee is here today for medication management and trigger point injections. She reports greater than 50% relief with the treatment plan. Denies any side effects.Reports that her mid back pain is worsening today. States that she has ongoing frustrations with her Medtronic spinal cord stimulator in regards to charging and programming.Reports that right knee pain is well-controlled status post right TKA on July 09, 2021.Continues to struggle with worsening right shoulder pain and headaches. States that her Imitrex prescribed by Dr. Regan is starting to become less effective. Reports that her headaches are poorly controlled. She inquired today about alternative medications.Requests points today as they provide ongoing significant relief along with her medications. Of note, her medications are currently controlled by her living facility.Patient is not accompanied today. No other concerns. Back Pain Severity level i s 7. The client describes the pain as an ache, burning, sharp and tingling. Symptoms are aggravated by ascending stairs, bending, lifting, lying/rest, sitting, standing, twisting, walking, housework, movement and prolonged positioning. Symptoms are relieved by heat, ice, lying down, massage, pain meds/drugs, physical therapy, stretching, rest, sitting, changing positions, walking and chiropractic. Associated symptoms include weakness, weight gain, leg swelling and anxiety. Pertinent negatives include bladder incontinence and diarrhea. Back Pain Severity level i s 7. Duration: chronic. The problem is fluctuating. It occurs persistently. The client describes the pain as an ache, burning, sharp, shooting and tingling. Symptoms are aggravated by ascending stairs, bending, descending stairs, lifting, lying/rest, sitting, standing, twisting, walking, housework, movement, reaching and prolonged positioning. Symptoms are relieved by heat, ice, lying down, massage, pain meds/drugs, physical therapy, stretching, rest, changing positions, chiropractor and walking. Comments: Brandee is here for follow-up and medication management. Her current medication regimen offers greater than 50% pain relief. Her medications are currently managed by her living facility.S/p right TKA on 07/09/[address] Camara from [facility]. [facility] was reviewed and shows pt was rx'ed 2mg Dilaudid max 7/day for post op pain. She was rx'ed #49tabs on 08/23/21, #49tabs on 08/19/21 and #49 tabs on 08/08/21. Her chronic dose at [facility] is #5tabs a day, patient agreeable to returning to this dose. Neck and back pain continues to be especially bothersome. Presents with her SCS turned off because she does not charge her device. She states she is considering explant with replacement of non-rechargeable battery. She expresses interest in updated imaging of her entire spine. Additionally, she reports an onset of increased R shoulder pain with crepitus. Agreeable to updating imaging of her R shoulder. Patient is not accompanied today. No other concerns. Back Pain Severity level i s 8. Duration: chronic. The problem is worsening. It occurs persistently. Location of pain is lower back and bilateral knees.The patient describes the pain as an ache, burning, sharp and tingling. Symptoms are aggravated by bending, lifting, standing, twisting, walking and movement. Symptoms are relieved by pain meds/drugs, physical therapy, stretching, rest and walking. Back Pain (comments) Brandee is he re for follow-up and medication management. Her current medication regimen offers greater than 50% pain relief. Her medications are currently managed by her living facility.Her chronic pain today is worse. Notes that her right TKA was rescheduled for 07/09/[address] Camara from [facility]. Surgeon will manage post-op pain. Lower back pain continues to be especially bothersome. She would like updated imaging and to potentially pursue RFW. Discussed that we will wait to work on her back until after she is healed from R TKA, patient was agreeable. Patient is not accompanied today. No other concerns. Back Pain Severity level i s 8. Duration: chronic. The problem is worsening. It occurs intermittently. Location of pain is middle back, lower back and gluteal area. Pain is radiated to the left calf and right calf.The patient describes the pain as an ache, burning and deep. Symptoms are aggravated by ascending stairs, changing positions and descending stairs. Symptoms are relieved by pain meds/drugs and rest. Back Pain (comments) Brandee is he re for follow-up and medication management. Her current medication regimen offers greater than 50% pain relief. Her medications are currently managed by her living facility.Her chronic pain today is worse. Notes that her right TKA was rescheduled for [address] Lino or from [facility]. It was canceled due to no hospital beds available with [facility].Expresses her ongoing frustration regarding her lumbar Medtronic spinal cord stimulator. Notes that it is turned off again. She is interested in pursuing a non-rechargeable battery for the future.Request to repeat TPI's today as they provide good relief along with her Dilaudid. Notes that her med riot has not been compliant with her appointments. She is frustrated regarding that today.Patient is not accompanied today. No other concerns. low back pain Severity level i s 7. Duration: chronic. The problem is fluctuating. It occurs intermittently. Location of pain is middle back and gluteal area.The patient describes the pain as an ache, burning and dull. Symptoms are aggravated by ascending stairs, daily activities and defecation. Symptoms are relieved by pain meds/drugs and rest. low back pain (comments) Brandee arrieta resents for followup and medication management for her widespread pain. Continues to heal from R hip replacement. In the next month, she has scheduled R TKA with Dr. Camara through [facility]. Discussed post-op pain management. Also continues to detail difficulty with SCS. States it has been and she has been unable to charge it. Reports current medication regimen provides 50% pain relief and allows increased functionality. Denies side effects from current medication regimen. No other concerns today. Widespread pain Severity level i s 6. Location of the pain is lower back, mid back, upper back, bilateral shoulder and widespread. The patient describes it as achy, burning and tingling. Symptom is aggravated by bending, walking upstairs, walking downstairs, running, sitting, standing, walking, supine, twisting, prolonged positioning and housework. Relieving factors include heat, cold, meds, PT, TENs, walking, supine and changing position. Widespread pain (comments) Brandee presents for followup and medication management for her widespread pain. Presents after recent R hip replacement. Continues to heal from R hip replacement. Has a follow-up scheduled with her surgeon d/t an in-grown stitch. No signs or symptoms of infection are present or reported. Continues to participate in OT and PT, requests new PT order. She looks forward to reprogramming with [employer] today as she has had questions about her device. Requests TPIs today as they have provided significant relief in the past. Reports current medication regimen provides 50% pain relief and allows increased functionality. Denies side effects from current medication regimen. No other concerns today. Widespread pain Severity level i s 6. Duration: chronic. Location of the pain is feet, legs, lower back and L shoulder. The patient describes it as sharp, achy and burning. It occurs persistently. The problem is fluctuating. Symptom is aggravated by bending, walking upstairs, walking downstairs, running, sitting, standing, walking, supine, prolonged positioning, movement and housework. Relieving factors include sitting, walking, stretching, rest, heat, cold, changing positions, massage and chiro. Pertinent negatives include diarrhea, fatigue, fever and incontinence (urinary). Widespread pain (comments) Brandee presents for followup and medication management for her widespread pain. Presents after recent R hip replacement. Notes healing has been going well, but does have some concerns about the wound. Continues to participate in OT and PT. Requests TPIs today as they have provided significant relief in the past. Of note, continues to have the SCS device turned off.Reports current medication regimen provides 50% pain relief and allows increased functionality. Denies side effects from current medication regimen. No other concerns today. Widespread pain Duration: chroni c. Location of the pain is lower back and mid back. It occurs persistently. The problem is stable. Symptom is aggravated by bending, walking downstairs, sitting, standing and walking. Relieving factors include rest, heat, cold and medications. Pertinent negatives include diarrhea, fatigue, fever and incontinence (urinary). Widespread pain (comments) Brandee presents for followup and medication management for her widespread pain. Presents after recent R hip replacement. She has been managed on Dilaudid, max of 6 per day. Notes she has been participating in extensive OT and PT. She denies relief with previous use of oxycodone and requests to be managed on Dilaudid. Requests TPIs today. Of note, continues to have the SCS device turned off and requests to meet with [employer]. She is not accompanied today and has no other concerns today. Widespread pain Duration: chroni c. It occurs persistently. The problem is stable. Pertinent negatives include diarrhea, fatigue, fever and incontinence (urinary). Widespread pain (comments) Brandee is here for follow-up and medication refills. She returns with widespread pain most bothersome in her low back and knees. Pain has been worse. She went to [facility] two weeks ago with atrial fibrillation. She completed work-up and was put on warfarin. She met with her orthopedist at [facility] regarding her R knee pain. Orthopedist recommended replacement and she plans to schedule surgery next month. She requests repeat TPIs today. She is looking forward to meeting with [employer] later today for SCS reprogramming. Reports current medication regimen provides at least 50% pain relief. Denies side effects from current medication regimen. No other concerns today. Widespread pain (comments) Brandee is here for follow-up and medication refills. She presents with widespread pain most bothersome in her low back pain and abdomen. Her wound from panniculectomy completed in June continues to heal. She is no longer using a wound vac but she has a home nurse three times a week that helps her pack her wound. She is scheduled for a follow up with a wound doctor on Thursday. She is looking forward to meeting with [employer] for reprogramming later today. She requests repeat TPIs today and a refill of her current medication regimen. Reports current medication regimen provides at least 50% pain relief. Denies side effects from current medication regimen. No other concerns today. Widespread pain Severity level i s 6. Duration: chronic. Location of the pain is lower back and mid back. It occurs persistently. The problem is stable. Symptom is aggravated by bending, walking upstairs, walking downstairs and standing. Relieving factors include rest, heat and cold. Pertinent negatives include diarrhea, fatigue, fever and incontinence (urinary). Widespread pain Severity level i s 8. Duration: chronic. Location of the pain is lower back and hip. The patient describes it as sharp, achy and burning. It occurs persistently. The problem is stable. Symptom is aggravated by bending, walking upstairs, walking downstairs and standing. Relieving factors include rest, heat, cold and Rx Meds. Pertinent negatives include diarrhea, fatigue, fever and incontinence (urinary). Widespread pain (comments) Brandee is here for follow-up and medication refills. She presents with widespread pain most bothersome in her low back and hip pain. Pain has been fluctuating. Her open wound from panniculectomy in early June continues to heal with wound vac. She also has a a nurse come out to her house three times a week to monitor her wound. R knee steroid injection with orthopedist is on hold until her wound heals. Notes her SCS implant is currently turned off and she requests a full reboot at the next reprogramming. Interested in TPIs today. Requests a refill of her current medication regimen.Reports current medication regimen provides at least 50% pain relief. Denies side effects from current medication regimen. No other concerns today. Widespread pain (comments) Brandee is here for follow-up and medication refills. She returns with widespread pain most bothersome in her low back, R knee and abdomen. Brandee had a panniculectomy in early June. She has an open abdominal wound which is managed with a wound vac.She used her chronic medication regimen of oxycodone 5mg QID for post-operative pain. Her surgeon also prescribed her post-operative medication. There was confusion between her facility nurse, who manages her medication, and Brandee on which medication she was suppose to use for post-operative pain. She explains this will not happen again.Reports her SCS has not been working well for multiple days. She feels like the battery might be coming through her skin. She forgot her recharging battery system at home and she will reschedule reprogramming for next month.Reports current medication regimen provides at least 50% pain relief. Denies side effects from current medication regimen. No other concerns today. Widespread pain Duration: chroni c. The patient describes it as sharp, achy and burning. It occurs persistently. The problem is stable. Symptom is aggravated by bending, walking upstairs, walking downstairs and standing. Relieving factors include rest, heat, cold and Rx Meds. Pertinent negatives include diarrhea, fatigue, fever and incontinence (urinary). Widespread pain (comments) Brandee is here for 2-week post-op and medication refills. S/p lumbar [employer] SCS implant with Dr. Cummings on 05/07. She notes her right leg and right hip is not getting much relief. She will also have to charge her battery more often than she was told. Reports good pain relief in her low back and left leg. She can walk farther distances without her walker since the implant. She is able to fully straighten her back while she walks which she has not been able to do in the past. She will be having another surgery on June 07 and notes her orthopedist will be prescribing her post-op medication. Reports current medication regimen provides at least 50% pain relief. Denies side effects from current medication regimen. No other concerns today. Widespread pain Duration: chroni c. Location of the pain is lower back and R knee. The patient describes it as sharp, achy and burning. Symptom is aggravated by bending, walking upstairs, walking downstairs, standing and walking. Relieving factors include rest, heat and cold. Pertinent negatives include diarrhea, fatigue, fever and incontinence (urinary). Widespread pain (comments) Brandee is here for virtual follow-up and medication refills. Ongoing low back pain persists, tolerable with medication. Pain has been fluctuating. She is looking forward to [employer] SCS implant with Dr. Cummings on 05/07. She is aware she has to hold Eliquis 6 days prior to the procedure. She notes she recently switched living facilities. Reports current medication regimen provides at least 50% pain relief. Denies side effects from current medication regimen. No other concerns today. Widespread pain Duration: chroni c. Location of the pain is lower back. The patient describes it as sharp, achy and burning. It occurs persistently. The problem is stable. Symptom is aggravated by bending, walking upstairs, walking downstairs and standing. Relieving factors include rest, heat and Rx Meds. Widespread pain (comments) Brandee is here for follow-up and medication refills. She presents with widespread pain most bothersome in her low back which radiates down to her BL groin. Reports her pain has been worse since her SCS lead pull on 03/09. Inquires about the status of her SCS implant with insurance. She request a Toradol injection and repeat TPIs today.Reports current medication regimen provides at least 50% pain relief. Denies side effects from current medication regimen. No other concerns today. Widespread pain Duration: chroni c. Location of the pain is lower back, mid back and legs. It occurs persistently. The problem is stable. Symptom is aggravated by bending, walking upstairs, walking downstairs, sitting and standing. Relieving factors include rest, heat, cold and Rx Meds. Widespread pain Duration: chroni c. Location of the pain is lower back, L hip andR knee. The patient describes it as sharp, achy and burning. It occurs persistently. The problem is worsening. Symptom is aggravated by bending, walking upstairs, walking downstairs, standing and supine. Relieving factors include supine, walking, rest, heat, cold and Rx Meds. Pertinent negatives include diarrhea, fatigue, fever and incontinence (urinary). Widespread pain (comments) Brandee is here for follow-up and medication refills. She presents with widespread pain which has been worse. Notes increased nerve pain radiating down her R knee. She recently had imaging completed yesterday. Per patient, her orthopedic surgeon believes her hardware has moved in her R hip. She is scheduled to follow up with Dr. Gleason on Thursday to further discuss the results. She is looking forward to SCS trial. Reports current medication regimen provides at less than 50% pain relief. Denies side effects from current medication regimen. No other concerns today. Widespread pain (comments) Brandee is here for virtual follow-up and medication refills. Ongoing low back pain persists, tolerable with medication. Reports new mid back pain that radiates down her legs and groin and up her spine. Inquires if she should be completing lumbar LEANDRA before SCS trial. She is looking forward to Medtronic SCS trial on 02/[address] Cummings. Continues to follow-up with chiropractics, PT, and acupuncture. Reports current medication regimen provides 50% pain relief. Denies side effects from current medication regimen. No other concerns today. Widespread pain Duration: chroni c. Location of the pain is lower back and R knee. The patient describes it as sharp, achy and burning. It occurs persistently. The problem is stable. Symptom is aggravated by bending, walking upstairs, walking downstairs, sitting, standing and walking. Relieving factors include rest, heat, cold, Rx Meds and chiropractic. Pertinent negatives include diarrhea, fatigue, fever and incontinence (urinary). Widespread pain Severity level i s 10. Duration: chronic. Location of the pain is lower back, mid back and L hip. The patient describes it as sharp, achy, burning and tingling. It occurs persistently. The problem is worsening. Symptom is aggravated by bending, walking upstairs, walking downstairs, lifting and housework. Relieving factors include rest, heat, Rx Meds and TENs. Pertinent negatives include diarrhea, fatigue, fever and incontinence (urinary). Widespread pain (comments) Loni hines is here for virtual follow-up and medication refills. She presents with wide spread pain most bothersome in her low back. She reports a new pain in her L hip which radiates down the back and front of her thigh and groin.Brandee reports her pain has been worse this month due to visiting her daughter in [place]. She realized she can not walk long distances with her walker. Had a injection scheduled with [facility] but taxi service could not provide her the ride from [place]. She is excited about the recently approved for lumbar Medtronic SCS trial. She will not go forward with rescheduling injection and just focus on the SCS trial. Reports current medication regimen provides 50% pain relief. Denies side effects from current medication regimen. No other concerns today. Widespread pain Severity level i s 9. Location of the pain is back and R knee. The patient describes it as sharp, achy and burning. It occurs persistently. The problem is worsening. Symptom is aggravated by bending, supine, housework and movement. Relieving factors include supine, stretching, cold, Rx Meds and changing positions. Widespread pain (comments) Loni hines is here for follow-up and medication refills. She presents with widespread pain, most bothersome in the low back and R knee. She is still interested in Medtronic SCS trial.She had a recent lumbar MRI with [facility] and per patient the imaging showed herniation and disc slippage at multiple levels. She said [facility] recommend a injection. With previous injections, she explains having a reaction to the procedure. She scheduled the injection on 12/[address] estrella at [facility].Reports current medication regimen provides at least 20% pain relief. She reports her current medication only lasting 1.5 hours. She also manages her pain with ice, heat, and stretching. She inquires about pain medication cream. Denies side effects from current medication regimen. No other concerns today. Widespread pain Severity level i s 8. Duration: chronic. Location of the pain is lower back and right knee. The patient describes it as sharp, achy, burning and tingling. It occurs persistently. The problem is stable. Symptom is aggravated by bending, walking, lifting, movement and housework. Relieving factors include rest, heat, cold, Rx Meds and chiropractic. Widespread pain (comments) Brandee presents for a virtual follow up and medications refill for her widespread pain. Pain has been worse with her back which radiates into her hips. She is still interested in pursuing SCS trial pending insurance approval. Notes an upcoming appt. with a back surgeon through [facility] next week to be evaluated. Reports current medication regimen provides 20+% pain relief and allows for increased functionality. Denies side effects from current medication regimen.No other concerns today. Widespread pain Severity level i s 8. Duration: chronic. Location of the pain is lower back. The patient describes it as sharp, achy, burning and numbness. It occurs persistently. The problem is worsening. Symptom is aggravated by bending, lifting, lying down and movement. Relieving factors include heat, changing positions, chiropractic and lying down. Widespread pain (comments) Brandee presents for follow up and medication refill. Reports current medication is providing a 20% for pain relief and allows for increased functioning. Denies side effects from current medication regimen. C/o increased Neck pain r/t whiplash secondary to low and mid-back pain radiating into BL groin. Notes of increase pain in the BL buttocks (R>L) having to tilt her hip when she sits. She fell asleep with her TENS unit on and almost had to go to the ER for her shot nerves. Has been having worse pain. Inquires about scheduling a psych eval for her Medtronic SCS implant trial. Inquires if she may keep the Stimulator on and sleep on it without any drawbacks. Inquires if she may have a dose increase of her opioids of muscle relaxers. Has been seeing chiropractor over the last year with her next appointment being in July.No other concerns today. Widespread pain (comments) Brandee is here for a follow up via virtual visit.Reports that she returned home from her daughters and quarantined herself for 2 weeks. States that she visited her grandchild although c/o increased low and mid-back pain radiating into BL groin when sitting and holding her. Notes that pain radiates into R groin when walking but not the L side. Pt feels that pressure in her back is reduced when bending forward. Pt is hopeful that SCS trial is effective because she feels that her TENs unit is helpful. Notes that her quality of life is decreased because she is having difficulty performing daily activities.Pt feels that tizanidine has not been working well. Inquires if she could increase oxycodone because she feels that the 4/day does not provide long-lasting relief. Notes that she occasionally will need to take her nighttime dose during the day and therefore will not have a pill to use at nighttime which is difficult for her. Pt notes that she dropped off her psych implant evaluation paperwork at the clinic, although it has not been uploaded into EHR to be reviewed. Pt is scheduled to follow up with her psychologist today and will have the paperwork faxed over.Notes that she followed up with her fine arts model yesterday. States that she has arrythmia although not currently. Widespread pain Severity level i s 7. Duration: chronic. Location of the pain is lower back and bilateral hip. The patient describes it as sharp, achy, tingling and numbness. It occurs persistently. The problem is stable. Symptom is aggravated by bending, sitting, standing, walking, supine, housework, lifting, movement and prolonged positionin. Relieving factors include supine, stretching, rest, heat, cold, Rx Meds, changing positions, chiropractic, TENS and PT. Pertinent negatives include diarrhea, fatigue, fever and incontinence (urinary). Widespread pain Severity level i s 7. Duration: chronic. Location of the pain is lower back. It occurs persistently. The problem is stable. Symptom is aggravated by bending, walking upstairs, walking downstairs, running, standing and walking. Relieving factors include massage, rest, heat, cold, Rx Meds and chiropractic. Widespread pain (comments) Brandee presents for follow up and medication management. Reports 70-80% relief with current medication regime. Denies SE.Pt checked in 15 minutes late to today's scheduled virtual visit.C/o worsening back pain, describes she feels her back pain is deteriorating. Pt continues to stay active and walk daily, but notes she is sore several days after. Continues to use TENS unit as needed with benefit. Secondarily, pt reports her knee pain clicks, but notes she is pushing through it. Pt continues to be interested in pursuing lumbar Medtronic SCS trial. Reports she presented to [facility] and dropped off her psych evaluation report, completed by her psychologist Gasper Patterson (note not available in EHR for review). Of note, pt c/o increased frequency of hot flashes and is unsure if she is experiencing post-menopausal symptoms. No other concerns today. Widespread pain Severity level i s 7. Duration: chronic. The patient describes it as achy, burning, tingling and numbness. It occurs persistently. The problem is improving. Symptom is aggravated by daily activities. Relieving factors include rest, heat, cold, changing positions, chiropractic, lying down and TENS. Widespread pain (comments) Brandee presents for follow up and medication management. Reports 70-80% relief with current medication regime. Denies SE.States she has been utilizing her walker so that she is able to be more active in efforts towards weight loss. Recently started traction belt that was given to her after surgery which has offered relief. Remains interested in SCS trial when able. Requests updated imaging of L hip prior to this as she has been experiencing more clicking. Ongoing increased anxiety when in more pain, but continues with regular psych appointments. No further questions or concerns. Widespread pain Duration: chroni c. The patient describes it as sharp, achy, burning, tingling and numbness. It occurs persistently. The problem is worsening. Symptom is aggravated by housework, lifting and movement. Relieving factors include stretching, massage, rest, heat, cold, Rx Meds, changing positions, lying down, chiropractic and PT. Pertinent negatives include diarrhea, fatigue, fever and incontinence (urinary). Widespread pain (comments) Brandee presents for follow up and medication management. Reports three hours of relief with each dose of current regimen and denies any side effects.Details increased pain over the past month with not being able to participate in chiropractic sessions. TENS unit and hot baths are helpful. Notes she was out of medication all weekend as she had difficulty setting up a virtual visit. More pain tends to lead to increased anxiety. No further questions or concerns. Widespread pain Severity level i s moderate-severe. Duration: chronic. Location of the pain is lower back and mid back. The patient describes it as tender and throbbing. It occurs persistently. The problem is fluctuating. Symptom is aggravated by overuse. Relieving factors include rest, heat, cold and Rx Meds. Pertinent negatives include diarrhea, fatigue, fever and incontinence (urinary). Widespread pain (comments) Brandee is here today for follow up and medication management via telephone visit d/t the ongoing COVID-19 pandemic. Reports 50%+ pain relief with her current regimen and denies any side effects. She is disappointed that her lumbar SCS trial will be delayed due to the ongoing Coronavirus and she is also unable to attend managed care provider which she significantly benefits from. She still has routine foot injections with Dr. Caleb Ontiveros. She inquires if she can temporarily increase her medications until she is able to trial the spinal cord stimulator.No additional questions or concerns. Patient is not accompanied today and has no other questions or concerns. Widespread pain (comments) Brandee is here today for a followup and medication refill for persistent widespread pain. Pain today is worse across L>R low back traveling down her left leg. Remains interested in SCS trial and was able to complete psychology evaluation last week. States her psychologist should have sent her approval via fax last week. States her anxiety is also exacerbated by her pain. Reports only about 3 hours of pain relief from her medication. Medications are managed by [facility]. Denies side effects.Patient is not accompanied today and has no further questions or other concerns. Widespread pain Duration: chroni c. Location of the pain is lower back, left hip and right knee. The patient describes it as sharp, achy, burning and tingling. It occurs persistently. Symptom is aggravated by bending, housework, lifting, lying down and movement. Relieving factors include Rx Meds, changing positions, chiropractic, heat and ice. Pertinent negatives include diarrhea, fatigue, fever and incontinence (urinary). Widespread pain (comments) Brandee is here today for a followup and after initial consult for widespread pain. Pain today is worse, especially in her right hip. Reports minimal benefit from trigger point injections administered last OV. She has started physical therapy at [facility] and intends on continuing twice weekly. She would like to restart oxycodone therapy today which has provided good relief in the past. Inquires about prescription for muscle relaxant which she recalls providing her with some pain relief previously as well.Patient is not accompanied today and has no further questions or other concerns. Widespread pain Severity level i s 8. Duration: chronic. Location of the pain is lower back, mid back, upper back, neck, bilateral shoulder, right hip, right knee and left ankle. The patient describes it as sharp, achy, burning and tingling. It occurs persistently. The problem is worsening. Symptom is aggravated by bending, walking upstairs, walking downstairs, running, sitting, standing, walking and all activity. Relieving factors include stretching, rest, chiropractic, heat, ice, lying down, PT and TENS. Pertinent negatives include diarrhea, fatigue, fever and incontinence (urinary). Widespread pain Severity level i s 8. Duration: chronic. Location of the pain is lower back, mid back, upper back, neck, bilateral shoulder and bilateral knee. The patient describes it as sharp, achy, burning and pins & needles. It occurs persistently. Symptom is aggravated by bending, walking upstairs, walking downstairs, walking, lifting, lying down, sitting, twisting and walking. Relieving factors include stretching, rest, heat, cold and chiropractic. Pertinent negatives include diarrhea, dyspnea, fever and incontinence (urinary). Widespread pain (comments) Brandee is here for an initial consult for widespread pain, referred by Dr. Ontiveros. States her pain began gradually 3-4 years ago without inciting event or injury. Pain is widespread and varies day to day. Reports hx of lumbar fusion and frequently experiences back pain in the levels above her surgeries. She also has a hx of L MED. Secondary concern of R>L knee pain. Has been recommended for possible R TKA at [facility], but no date has been scheduled. States her pain causes her lots of anxiety because she has tried many treatments without significant benefit. She is currently enrolled in PT at [facility] in [facility]. She also regularly attends the chiropractor. TENS unit, heat therapy, and rest are somewhat helpful. She has trialed HAWK injections and RFA without significant pain reduction. She takes 4,000mg Tylenol and Ibuprofen prn daily. Reports she has previously trialed Gabapentin, Lyrica, Cymbalta, muscle relaxers, and various opiates. She reports oxycodone has provided significant relief in the past and she expresses interest in restarting. Brandee is interested in medication management and other recommended therapies and would like [facility] to assume management of pain care. Functional Status Date Functional Assessmen t No Information Instructions Date Instruction Additional Infor mation No Information Assessments Type Assessment Date assessment Pain in right knee impression S/p right TKA on 12/[address] Camara from [facility]. Has been participating in PT with good benefit. Pain has been worse since [facility] assessment Pain in left ankle and joints of left foot impression Worsening pain in th e left ankle and is considering an ankle fusion assessment Radiculopathy, lumbar region Jul impression Lower back pain with radiation into her BLE, continues to worsen since [facility] assessment Myalgia, other site impression TPIs in the past wit hout benefit. PO muscle relaxers provide moderate relief assessment Postlaminectomy syndrome, not el sewhere classified impression Hx of L4-S1 fusion. She has an SCS implant but may be interested in an explant assessment group home (current) use of opiat e analgesic impression The medication relie ves at least 60% of the pain, does not cause significant side effects, increases the patient's daily activity level. Medication managed by facility.Most of today's visit was spent discussing the patient's recent discharge from the clinic d/t her inappropriate behavior and language used toward staff. Patient expresses frustrations with termination. H[employer] TRAIN[employer]NA[employer] terminated.Most recent UDT results reviewed and appropriate. Not appropriate to continue opioid therapy d/t issues with inappropriate behavior. Current MME 30 Mental Status Date Cognitive Assessment Orientation - Harwood ed to time, place, person, situation. Patient Care Teams Name Effective Dates (start - stop) Status Members No Information
--- OUTSIDE RECORDS SUMMARY | 2022-11-11 09:32 | XMS_ITS | Continuity of Care Document ---
Author Name Unknown Organization [facility] Address [address] [place] [address] Phone Care Team Providers Care Hydration Plant Operator Name Role Phone Odalys BOLES, Homar Unavailable Unavailable Allergies, Adverse Reactions, Alerts Substance Reaction Status Criticality tramadol Active No Information CEPHALEXIN MONOHYDRATE Active No In formation Sulfa (Sulfonamide Antibiotics) Active No Information Penicillins Active No Information erythromycin base Active No Informa tion Medications Medication Instructions Dosage Effective Dates (start - stop) Status Comments Do Not Prescribe NO MORE meds this office. These were written by VERA due to med restrictions and Donn is taking these to hospital for pt. d/c to a SNIF - Active Procedures Procedure Date Pa Assist Lumbar Spine Fusion, Posterola teral Pa Assist Spine Fusion, Each Add'Lverteb ra Remove Lumbar Spine Lamina, 1 Seg Pa Assist Insert Spine Seg Fix, Post, 3- 6 Seg PA Assist Insert interbody cage w/fusion Lumbar Spine Fusion, Posterolateral Spine Fusion, Each Add'Lvertebra 2017 Lumbar Spine Fusion W/Bone Graft 2017 Spinal Fusion, Ea Add'L Interspace Remove Lumbar Spine Lamina, 1 Seg Insert Spine Seg Fix, Post, 3-6 Seg Insert interbody cage w/fusion 18 Office/Outpatient Visit,Est, Mod 2016 X-Ray Exam Lower Spine 2-3 Views 2016 Postop Followup Visit Arthdsis Post/Posterolatrl/Postinterbody Lumbar Arthdsis Post/Posterlatrl/Postintrbdyadl Spc/Seg Insert Spine Seg Fix, Post, 3-6 Seg Apply Spinal Prosthetic Device 16 Allograft, Spine Surg, Morselized Autograft, Spine Surgery, Local 016 Pa Arthdsis Post/Posterolatrl/Postinterb ivana Lumbar Pa Arthdsis Post/Posterlatrl/Postintrbdy adl Spc/Seg Pa Assist Insert Spine Seg Fix, Post, 3- 6 Seg Pa Assist Apply Spinal Prosthetic Device Advance Directives Directive Yes / No Effective Date File Name No Information Encounters Encounter Description Practice Location Reason(s) For Visit Diagnoses Date Provider Providers Copied on Encounter [facility], [address], [place], [place], [id number], [place] tel:[phone] [facility] No Information 8 Odalys Graf. [facility], [address] [place] [address] [address], [place], [place], [id number] , [place]. tel:[phone] [facility], [address], [place], [place], [id number], [place] tel:[phone] [facility] No Information 8 Odalys Graf. [facility], [address] [place] [address] [address], [place], [place], [id number] , [place]. tel:[phone] [facility], [address], [place], [place], [id number], [place] tel:[phone] [facility] No Information 8 Rodrick Pop. [facility], [address] [place] [address] [address], [place], [place], [id number] , [place]. tel:[phone] Referring Provider: Homar Morrow, [facility] [address] [place] [address] [address], [place], [address] . tel:[phone] [facility], [address], [place], [id number], [place] tel:[phone] [facility] No Information 6 8 Odalys Graf. [facility], [address], [place], [place], [id number] , [place]. [phone] Referring Provider: Homar Morrow, [facility] [address], [place], [address] . tel:[phone] Office/Outpat ient Visit,Est, Mod [facility], [address], [place], [place], [id number], [place] tel:[phone] [facility] Spinal stenosis, lumbar region 5 7 Odalys Graf. [facility], [address], [place], [place], [address] , [place]. [phone] Referring Provider: Homar Morrow, [facility] [address], [place], [address] . tel:[phone] [facility], [address], [place], [place], [id number], [place] tel:[phone] [facility] Spinal stenosis, lumbar region 0-201 6 Odalys Graf. [facility], [address], [place], [place], [address] , [place]. [phone] Referring Provider: Homar Morrow, [facility] [address], [place], [address] . tel:[phone] [facility], [address], [place], [place], [id number], [place] tel:[phone] [facility] Arthrodesis status 1-201 6 Odalys Graf. [facility], [address], [place], [place], [id number] , [place]. [phone] [facility], [address], [place], [id number], [place] tel:[phone] [facility] No Information Sep-2 6 Odalys Rowlandin. [facility], [address], [place], [id number] , [place]. tel:[phone] Referring Provider: Homar Morrow, [facility] [address], [place], [address] . tel:[phone] Family History Family Member Type Diagnosis Age At Onset No Information Payers Payer name Insurance type Covered green party ID Authoreneida aaron(s) Medicare [id number] Social History Type Description Quantity Date Captured Comments Sex Female Smoking Status No Information Chief Complaint And Reason For Visit No Information Reason For Referral Reason For Referral No Information Plan Of Treatment Date Type Action Status Future Order: Radiology Order AP Lateral Lumbar (APLatLumb), Ordered on: Ordered Future Order: Radiology Order Fe rguson (Padilla), Ordered on: Ordered History Of Present Illness Encounter Date Complaint History Of Prese nt Illness No Information Functional Status Date Functional Assessmen t No Information Instructions Date Instruction Additional Infor jaylene Weight Management Education Rela brodie to Overweight Weight management: I nstructed to return to General Practitioner timeframe: 1 Month. Related to Overweight Assessments Type Assessment Date No Information Patient Care Teams Name Effective Dates (start - stop) Status Members No Information
== END 2022-11-11 09:29 | disposition home or self-care (01) ==
LOC: NFLDREF 09:29
PROVIDERS: PCP Internal Medicine; Visit Provider Internal Medicine
DX: I48.91 Unspecified atrial fibrillation (principal); Z79.01 Long term (current) use of anticoagulants; R53.83 Other fatigue
CPT/HCPCS: 85610

== ENCOUNTER 2022-12-03 09:56 | Outpatient (CLI) | payer OTHER, SELFPAY ==
--- OUTSIDE RECORDS SUMMARY | 2022-12-03 10:03 | XMS_ITS | Continuity of Care Document ---
Author Name Unknown Organization [facility] Address [address] [place] [address] Phone Care Team Providers Care Plastic Boat Buffer Name Role Phone Odalys BOLES, Homar Unavailable [...] C, [address], [place], [place], [id number], [place] tel:[phone] [facility] No Information 8 Odalys Graf. [facility], [address] [place] [address] [address], [place], [place], [id number] , [place]. tel:[phone] [facility], [address], [place], [place], [id number], [place] tel:[phone] [facility] No Information 8 Odalys Graf. [facility], [address] [place] [address] [address], [place], [place], [id number] , [place]. tel:[phone] [facility], [address], [place], [id number], [place] tel:[phone] [facility] No Information 8 Rodrick Pop. [facility], [address] [place] [address] [address], [place], [place], [id number] , [place]. tel:[phone] Referring Provider: Homar Morrow, [facility] [address] [place] [address] [address], [place], [address] . tel:[phone] [facility], [address], [place], [id number], [place] tel:[phone] [facility] No Information 6 8 Odalys Graf. [facility], [address], [place], [place], [id number] , [place]. [phone] Referring Provider: Homar Morrow, [facility] [address], [place], [address] . tel:[phone] Office/Outpat ient Visit,Est, Mod [facility], [address], [place], [id number], [place] tel:[phone] [facility] Spinal stenosis, lumbar region 5 7 Odalys Graf. [facility], [address], [place], [place], [id number] , [place]. [phone] Referring Provider: Homar Morrow, [facility] [address], [place], [address] . tel:[phone] [facility], [address], [place], [id number], [place] tel:[phone] [facility] Spinal stenosis, lumbar region 0-201 6 Odalys Graf. [facility], [address], [place], [address] , [place]. [phone] Referring Provider: Homar Morrow, [facility] [address], [place], [address] . tel:[phone] [facility], [address], [place], [id number], [place] tel:[phone] [facility] Arthrodesis status 1-201 6 Odalys Graf. [facility], [address], [place], [address] , [place]. [phone] [facility], [address], [place], [id number], [place] tel:[phone] [facility] No Information Sep-2 6 Odalys Rowlandin. [facility], [address], [place], [id number] , [place]. tel:[phone] Referring Provider: Homar Morrow, [facility] [address], [place], [address] . tel:[phone] Family History Family Member Type Diagnosis Age At Onset No Information Payers Payer name Insurance type Covered libertarian ID Authoreneida aaron(s) Medicare [id number] Social History Type Description Quantity Date Captured [...]
--- OUTSIDE RECORDS SUMMARY | 2022-12-03 10:03 | XMS_ITS | Continuity of Care Document ---
Author Name Unknown Organization [facility] Address [address] [place] [address] Care Team Providers Care Student Support Advisor Name Role Phone [facility] Unavailable Unav ailable Procedures Procedure Date IMPLANT [...] Diagnoses Date Provider Providers Copied on Encounter [facility], [address] [place] [address], [id number], [facility] No Information [facility]. [address] [place], [place], [id number], [place]. tel:[phone] Referring Provider: Michelle Cummings, [address] [place], [address]. tel:[phone] [facility], [address] [place], [place], [id number], [facility] No Information [facility]. [address] [facility] [place], [place], [id number], [place]. tel:[phone] Referring Provider: Too Del Cid, [address] [place], [address]. tel:[phone] [facility], [address] [place], [place], [id number], [place] [facility] No Information [facility]. [address] [place], [place], [id number], . tel:[phone] Referring Provider: Michelle Cummings, [address] [place], [address]. tel:[phone] Family History Family Member Type Diagnosis Age [...]
--- OUTSIDE RECORDS SUMMARY | 2022-12-03 10:03 | XMS_ITS | Continuity of Care Document ---
Author Name Unknown Organization [facility] Address [address] [place] [address] Care Team Providers Care Brim Blocker Name Role Phone Simba Lowry CRNA Unavailable Unavailable Procedures Procedure Date ANESTH, HEAD/NECK/PTRUNK ANESTH PERC IMG TX SP PROC Advance Directives Directive Yes / No Effective Date File Name No Information Encounters Encounter Description Practice Location Reason(s) For Visit Diagnoses Date Provider Providers Copied on Encounter [facility], [address] [place] [address], [id number], [facility] No Information Alen Cottrell. [address] [place] [address], [id number], . tel:[phone] Referring Provider: Michelle Cummings, [address] [place] [address], [address] . tel:[phone] [facility], [address] [place] [address], [id number], [facility] No Information Asad Ramirez. [address], [place], [place], [id number], . tel:[phone] Referring Provider: Too Del Cid, [address] [place], [address] . tel:[phone] Family History Family Member Type Diagnosis Age [...]
--- OUTSIDE RECORDS SUMMARY | 2022-12-03 10:04 | XMS_ITS | Continuity of Care Document ---
Author Name Unknown Organization [facility] rajiv Address [address] [place] [address] Phone Care Team Providers Care Senior Linux Engineer Name Role Phone Dionte Granados Unavailable Unavailable [...] Effective Dates (start - stop) Status Comments topiramate 25 mg tablet Take two tablets at bedtime - Active haloperidol 0.5 mg tablet Take 0.5-1 Tablets (0.25-0.5 mg) by mouth 2 times daily if needed for Agitation (anxiety). Further refills will be prescribed during an appointment - Active hydroxyzine HCl 50 mg tablet Take one tablet every six hours as needed - Active triamcinolone acetonide 0.1 % topical [...] Longer Active may fill and start 06/30 pregabalin 150 mg capsule take 1 capsule by oral route 3 times every day 150 MG - No Longer Active cyclobenzaprine 10 mg tablet take 1 tablet by oral route 3 times every day 10 MG - No Longer Active Emgality Pen 120 mg/mL subcutaneous pen injector [...] eval q3mo opiod tx SCS Post Op [place] No Charge For Visit Per Prov IMPLANT [...] OFFICE VISIT, EST TELEMEDICINE 20 OFFICE VISIT, [facility] TELEMEDICINE 20 Foll-up eval q3mo opiod tx OFFICE/OUTPATIENT VISIT, EST Drug Urine Toxology With Chromatography SCS Trial Procedure Ordered INJ TRIGGER POINT, 1/2 MUSCL OFFICE/OUTPATIENT VISIT, NEW Advance Directives Directive Yes / No Effective Date File Name No Information Encounters Encounter Description Practice Location Reason(s) For Visit Diagnoses Date Provider Providers Copied on Encounter OFFICE VISIT, [facility], [address] [place], [place], [id number] , [place] tel:[phone] [facility] [place] Widespread pain (chief complaint) Pain in right kneePain in left ankle and joints of left footRadiculopa thy, lumbar regionMyalgia, other sitePostlamine ctomy syndrome, not elsewhere classifiedLong term (current) use of opiate analgesic 3 Mayra Rapp. [address] [facility] [address], [place], [place], [id number] , [place]. tel:[phone] anticoagulant prescriber: Aleksey Smith [address], [address]. tel:[phone] Provider: Too Del Cid, [address] [place], [address]. tel:[phone] OFFICE VISIT, [facility], [address] [place], [place], [id number] , [place] tel:[phone] [facility] Widespread pain (chief complaint) Postlaminectom y syndrome, not elsewhere classifiedRadi culopathy, lumbar regionMyalgia, other sitePain in left ankle and joints of left footPain in right kneeLong term (current) use of opiate analgesic 3 Shay Morales. [address] [place], [place], [id number] , [place]. tel:[phone] anticoagulant prescriber: Aleksey Smith [address], [address]. tel:[phone] [facility], [address] [place] [address], [id number] , [place] tel:[phone] [facility] [place] pain (chief complaint) Postlaminectom y syndrome, not elsewhere classified 2 Indu Dalal. [address] [place] [address], [id number] , [place]. tel:[phone] Psych Dx Eval [facility], [address] [place] [address], [id number] , [place] tel:[phone] Telehealth Pain disorder with related psychological factorsPost-tr aumatic stress disorder, unspecified 2 Tess Cristiano Peg. [address] [place] [address], [id number] , [place]. tel:[phone] Referring Provider: Too Del Cid, [address] [place] [address], [address]. tel:[phone] Psych Dx al [facility], [address] [place] [address], [id number] , [place] tel: [phone] Telehealth Pain disorder with related psychological factorsAnxiety disorder 2 Tess Cristiano Peg. [address] [place] [address], [id number] , [place]. tel:[phone] OFFICE/OUTPAT IENT VISIT, EST [facility], [address] [place] [address], [id number] , [place] tel: [phone] [facility] [place] Widespread pain (chief complaint) Pain in right hipPain in right kneePain in left ankle and joints of left footRadiculopa thy, lumbar regionPostlami nectomy syndrome, not elsewhere classifiedLong term (current) use of opiate analgesicMyalg ia, other site 2 Heriberto Gage. [address] [place] [address], [id number] , [place]. tel:[phone] anticoagulant prescriber: Aleksey Smith, [address], [address]. tel:[phone] Provider: Too Del Cid, [address] [place] [address], [address]. tel:[phone] OFFICE VISIT, EST TELEMEDICINE [facility], [address] [place] [address], [id number] , [place] tel:[phone] [facility] Back Pain (chief complaint) Pain in right kneePain in left ankle and joints of left footRadiculopa thy, lumbar regionMyalgia, other sitePostlamine ctomy syndrome, not elsewhere classifiedLong term (current) use of opiate analgesicPain in right hip 2 Nunez Idonte. [address] [place] [address] [address], [place], [place], [id number] , [place]. tel:[phone] anticoagulant prescriber: Aleksey Smith, [address], [address]. tel:[phone] OFFICE VISIT, EST TELEMEDICINE [facility], [address] [place] [address], [id number] , [place] tel:[phone] [facility] Back Pain (chief complaint) Pain in right kneePain in left ankle and joints of left footRadiculopa thy, lumbar regionMyalgia, other sitePostlamine ctomy syndrome, not elsewhere classifiedLong term (current) use of opiate analgesic Mar- 2 Mayra Rapp. [address] [place] [address] [address], [place], [place], [id number] , [place]. tel:[phone] anticoagulant prescriber: Aleksey Smith, [address], [address]. tel:[phone] OFFICE VISIT, EST TELEMEDICINE [facility], [address] [place] [address], [id number] , [place] tel:[phone] [facility] Back Pain (chief complaint) Pain in right kneePain in left ankle and joints of left footRadiculopa thy, lumbar regionMyalgia, other sitePostlamine ctomy syndrome, not elsewhere classifiedLong term (current) use of opiate analgesic 2 Nuneznadeen Rapp. [address] [place] [address] [address], [place], [id number] , [place]. tel:[phone] Referring Provider: Too Del Cid, [address] [place] [address], [address]. tel:[phone] OFFICE/OUTPAT IENT VISIT, [facility], [address] [place] [address], [id number] , [place] [phone] [facility] Back Pain (chief complaint) Pain in right kneePain in right ankle and joints of right footPain in left ankle and joints of left footRadiculopa thy, lumbar regionMyalgia, other sitePostlamine ctomy syndrome, not elsewhere classifiedLong term (current) use of opiate analgesic 2 Mayra Wilburnel. [address] [place] [address] [address] [facility] [address], [place], [id number] , [place]. [phone] Referring Provider: Too Del Cid, [address] [place] [address], [address]. tel:[phone] [facility], [address] [place] [address], [id number] , [place] tel:[phone] [facility] No Information 2 Will Too. [address] [place] [address], [id number] , [place]. [phone] OFFICE/OUTPAT IENT VISIT, [facility], [address] [place] [address], [id number] , [place] tel:[phone] [facility] Back Pain (chief complaint) Pain in right shoulderPain in right kneePain in right ankle and joints of right footPain in left ankle and joints of left footRadiculopa thy, lumbar regionMyalgia, other sitePostlamine ctomy syndrome, not elsewhere classifiedLong term (current) use of opiate analgesic 2 Nunezjonny Rapp. [address] [place] [address] [address], [place], [id number] , [place]. tel:[phone] Referring Provider: Too Del Cid, [address] [place] [address], [address]. tel:[phone] OFFICE/OUTPAT IENT VISIT, [facility], [address] [place] [address], [id number] , [place] [phone] [facility] Back Pain (chief complaint) Chronic migraine without aura, intractable, without status migrainosusPai n in right shoulderPain in right kneePain in right ankle and joints of right footPain in left ankle and joints of left footRadiculopa thy, lumbar regionMyalgia, other sitePostlamine ctomy syndrome, not elsewhere classifiedLong term (current) use of opiate analgesicSpond ylosis without myelopathy or radiculopathy, lumbar region 2 Mayra Rapp. [address] [place] [address] [address], [place], [id number] , [place]. [phone] Referring Provider: Too Del Cid, [address] [place] [address], [address]. tel:[phone] OFFICE VISIT, EST [facility], [address] [place] [address], [id number] , [place] [phone] [facility] Back Pain (chief complaint) Chronic migraine without aura, intractable, without status migrainosusPai n in right shoulderPain in right kneeRadiculopa thy, lumbar regionMyalgia, other sitePostlamine ctomy syndrome, not elsewhere classifiedLong term (current) use of opiate analgesicPain in left ankle and joints of left footPain in right ankle and joints of right foot 2 Mayra Rapp. [address] [place] [address] [address], [place], [id number] , [place]. tel:[phone] OFFICE/OUTPAT IENT VISIT, [facility], [address] [place] [address], [id number] , [place] [phone] [facility] Back Pain (chief complaint) Myalgia, other sitePain in right shoulderPain in right kneeRadiculopa thy, lumbar regionPostlami nectomy syndrome, not elsewhere classifiedLong term (current) use of opiate analgesicChron ic migraine without aura, intractable, without status migrainosus 2 Mayra Rapp. [address] [place] [address] [address], [place], [place], [id number] , [place]. tel:[phone] Referring Provider: Too Del Cid, [address] [place] [address], [address]. tel:[phone] [facility], [address] [place] [address], [id number] , [place] tel:[phone] [facility] [place] No Information 2 Will Too. [address] [place] [address], [id number] , [place]. tel:[phone] [facility], [address] [place] [address], [id number] , [place] tel:[phone] [facility] No Information 2 Mayra Rapp. [address] [place] [address] [address], [place], [place], [id number] , [place]. tel:[phone] Referring Provider: Too Del Cid, [address] [place] [address], [address]. tel:[phone] OFFICE/OUTPAT IENT VISIT, EST [facility], [address] [place] [address], [id number] , [place] tel:[phone] [facility] Back Pain (chief complaint) Radiculopathy, lumbar regionMyalgia, other sitePostlamine ctomy syndrome, not elsewhere classifiedLong term (current) use of opiate analgesicEncou nter for therapeutic drug level monitoringEnco unter for screening for other disorderPain in right shoulderPain in right knee 2 Mayra Rapp. [address] [place] [address] [address], [place], [place], [id number] , [place]. tel:[phone] Referring Provider: Caleb Ontiveros, [address], [place], [address]. tel:[phone] OFFICE VISIT, [facility], [address] [place] [address], [id number] , [place] tel:[phone] [facility] Back Pain (chief complaint) Postlaminectom y syndrome, not elsewhere classifiedRadi culopathy, lumbar regionMyalgia, other siteLong term (current) use of opiate analgesic 0- 2 Mayra Rapp. [address] [place] [address] [address], [place], [place], [id number] , [place]. tel:[phone] Referring Provider: Too Del Cid, [address] [place] [address], [address]. tel:[phone] OFFICE/OUTPAT IENT VISIT, [facility], [address] [place] [address], [id number] , [place] tel:[phone] [facility] Back Pain (chief complaint) Myalgia, other sitePostlamine ctomy syndrome, not elsewhere classifiedRadi culopathy, lumbar regionLong term (current) use of opiate analgesic May- 1 Mayra Rapp. [address] [place] [address] [address], [place], [place], [id number] , [place]. tel:[phone] Referring Provider: Too Del Cid, [address] [place] [address], [address]. tel:[phone] OFFICE VISIT, [facility], [address] [place] [address], [id number] , [place] tel:[phone] [facility] low back pain (chief complaint) Radiculopathy, lumbar regionMyalgia, other siteLong term (current) use of opiate analgesicPostl aminectomy syndrome, not elsewhere classified Nov-0 - 1 Mayra Rapp. [address] [place] [address] [address], [place], [place], [id number] , [place]. tel:[phone] Referring Provider: Too Del Cid, [address] [place] [address], [address]. tel:[phone] [facility], [address] [place] [address], [id number] , [place] tel:[phone] [facility] Postlaminectom y syndrome, not elsewhere classified 1 Nunez Dionte. [address] [place] [address] [address], [place], [place], [id number] , [place]. tel: [phone] Referring Provider: Too Del Cid, [address] [place] [address], [address]. [phone] OFFICE/OUTPAT IENT VISIT, EST [facility], [address] [place] [address], [id number] , [place] tel:[phone] [facility] Widespread pain (chief complaint) Postlaminectom y syndrome, not elsewhere classifiedRadi culopathy, lumbar regionMyalgia, other siteLong term (current) use of opiate analgesic 1 Mayra Rapp. [address] [place] [address] [address], [place], [place], [id number] , [place]. tel:[phone] Referring Provider: Too Del Cid, [address] [place] [address], [address]. tel:[phone] [facility], [address] [place] [address], [id number] , [place] tel: [phone] [facility] No Information 1 Nunez Dionte. [address] [place] [address] [address], [place], [place], [id number] , [place]. tel: [phone] Referring Provider: Too Del Cid, [address] [place] [address], [address]. tel:[phone] OFFICE/OUTPAT IENT VISIT, [facility], [address] [place] [address], [id number] , [place] tel: [phone] [facility] Widespread pain (chief complaint) Postlaminectom y syndrome, not elsewhere classifiedRadi culopathy, lumbar regionMyalgia, other siteLong term (current) use of opiate analgesic 1 Mayra Rapp. [address] [place] [address] [address], [place], [place], [id number] , [place]. [phone] Referring Provider: Too Del Cid, [address] [place] [address], [address]. [phone] OFFICE/OUTPAT IENT VISIT, [facility], [address] [place] [address], [id number] , [place] [phone] [facility] Widespread pain (chief complaint) Postlaminectom y syndrome, not elsewhere classifiedRadi culopathy, lumbar regionMyalgia, other siteLong term (current) use of opiate analgesic 1 Mayra Rapp. [address] [place] [address] [address], [place], [place], [id number] , [place]. [phone] Referring Provider: Too Del Cid, [address] [place] [address], [address]. tel:[phone] [address] [place] [address] Pain Clinic, [address] [place] [address], [id number] , [place] [phone] [facility] Postlaminectom y syndrome, not elsewhere classified 1 Mayra Rapp. [address] [place] [address] [address], [place], [place], [id number] , [place]. [phone] Referring Provider: Too Del Cid, [address] [place] [address], [address]. tel:[phone] OFFICE/OUTPAT IENT VISIT, [facility], [address] [place] [address], [id number] , [place] tel:[phone] [facility] Widespread pain (chief complaint) Radiculopathy, lumbar regionMyalgia, other siteLong term (current) use of opiate analgesicPostl aminectomy syndrome, not elsewhere classified 1 Mayra Rapp. [address] [place] [address] [address], [place], [place], [id number] , [place]. tel:[phone] Referring Provider: Too Del Cid, [address] [place] [address], [address]. [phone] [address] [place] [address] Pain Clinic, [address] [place] [address], [id number] , [place] tel:[phone] [facility] Postlaminectom y syndrome, not elsewhere classified Apr-0 - 1 Mayra Rapp. [address] [place] [address] [address], [place], [place], [id number] , [place]. tel:[phone] Referring Provider: Too Del Cid, [address] [place] [address], [address]. tel:[phone] OFFICE/OUTPAT IENT VISIT, [facility], [address] [place] [address], [id number] , [place] tel: [phone] [facility] Widespread pain (chief complaint) Postlaminectom y syndrome, not elsewhere classifiedRadi culopathy, lumbar regionMyalgia, other siteLong term (current) use of opiate analgesicEncou nter for screening for other disorder Apr-0 1 Mayra Rapp. [address] [place] [address] [address], [place], [place], [id number] , [place]. tel: [phone] Referring Provider: Too Del Cid, [address] [place] [address], [address]. tel:[phone] OFFICE/OUTPAT IENT VISIT, [facility], [address] [place] [address], [id number] , [place] tel: [phone] [facility] Widespread pain (chief complaint) Postlaminectom y syndrome, not elsewhere classifiedRadi culopathy, lumbar regionMyalgia, other siteLong term (current) use of opiate analgesic Mar-0 1 Mayra Rapp. [address] [place] [address] [address], [place], [place], [id number] , [place]. tel:[phone] Referring Provider: Too Del Cid, [address] [place] [address], [address]. tel:[phone] [facility], [address] [place] [address], [id number] , [place] tel:[phone] [facility] [place] Postlaminectom y syndrome, not elsewhere classified 1 Mayra Rapp. [address] [place] [address] [address], [place], [place], [id number] , [place]. [phone] Referring Provider: Too Del Cid, [address] [place] [address], [address]. tel:[phone] [facility], [address] [place] [address], [id number] , [place] tel:[phone] [facility] [place] No Information 1 Mayra Rapp. [address] [place] [address] [address], [place], [place], [id number] , [place]. tel:[phone] OFFICE/OUTPAT IENT VISIT, EST [facility], [address] [place] [address], [id number] , [place] tel:[phone] [facility] Widespread pain (chief complaint) Postlaminectom y syndrome, not elsewhere classifiedRadi culopathy, lumbar regionMyalgia, other siteLong term (current) use of opiate analgesicPain in right kneeChronic pain syndrome 1 Mayra Rapp. [address] [place] [address] [address], [place], [place], [id number] , [place]. tel:[phone] Referring Provider: Too Del Cid, [address] [place] [address], [address]. tel:[phone] OFFICE VISIT, EST TELEMEDICINE [facility], [address] [place] [address], [id number] , [place] tel:[phone] [facility] [place] Widespread pain (chief complaint) Postlaminectom y syndrome, not elsewhere classifiedRadi culopathy, lumbar regionMyalgia, other siteLong term (current) use of opiate analgesicPain in right kneeChronic pain syndrome 0 Mayra Rapp. [address] [facility] [address], [place], [place], [id number] , [place]. tel:[phone] Referring Provider: Too Del Cid, [address] [place] [address], [address]. tel:[phone] [facility], [address] [place] [address], [id number] , [place] tel:[phone] [facility] Postlaminectom y syndrome, not elsewhere classified [address] [place] [address] [address], [place], [place], [id number] , [place]. tel:[phone] Referring Provider: Too Del Cid, [address] [place] [address], [address]. tel:[phone] [facility], [address] [place] [address], [id number] , [place] tel:[phone] [facility] [place] Postlaminectom y syndrome, not elsewhere classified 0 Emiliano Martinez. [address] [place] [address], [id number] , [place]. tel:[phone] Referring Provider: Too eDl Cid, [address] [place] [address], [address]. tel:[phone] OFFICE VISIT, EST TELEMEDICINE [facility], [address] [place] [address], [id number] , [place] tel:[phone] [facility] Widespread pain (chief complaint) Radiculopathy, lumbar regionMyalgia, other siteLong term (current) use of opiate analgesicPain in right kneeChronic pain syndromePostla minectomy syndrome, not elsewhere classified 0 Mayra Rapp. [address] [facility] [address], [place], [place], [id number] , [place]. tel:[phone] Referring Provider: Too Del Cid, [address] [place] [address], [address]. tel:[phone] OFFICE/OUTPAT IENT VISIT, EST [facility], [address] [place] [address], [id number] , [place] tel: [phone] [facility] [place] Widespread pain (chief complaint) Myalgia, other siteRadiculopa thy, lumbar regionPostlami nectomy syndrome, not elsewhere classifiedLong term (current) use of opiate analgesicPain in right kneeChronic pain syndrome 0 Mayra Rapp. [address] [facility] [address], [place], [place], [id number] , [place]. tel: [phone] Referring Provider: Too Del Cid, [address] [place] [address], [address]. [phone] [address] [place] [address] Pain Clinic, [address] [place] [address], [id number] , [place] tel: [phone] [facility] Postlaminectom y syndrome, not elsewhere classifiedMyal isabel, other site 0 Mayra Hays. [address] [facility] [address], [place], [place], [id number] , [place]. tel:[phone] Referring Provider: Too Del Cid, [address] [place] [address], [address]. tel:[phone] [facility], [address] [place] [address], [id number] , [place] tel:[phone] [facility] Radiculopathy, lumbar regionPostlami nectomy syndrome, not elsewhere classified 0 Mayra Rapp. [address] [facility] [address], [place], [place], [id number] , [place]. tel:[phone] Referring Provider: Too Del Cid, [address] [place] [address], [address]. tel:[phone] [facility], [address] [place] [address], [id number] , [place] tel:[phone] [facility] No Information 0 Heriberto Gage. [address] [place] [address], [id number] , [place]. tel:[phone] Referring Provider: Too Del Cid, [address] [place] [address], [address]. tel:[phone] OFFICE VISIT, EST TELEMEDICINE [facility], [address] [place] [address], [id number] , [place] tel:[phone] [facility] [place] Widespread pain (chief complaint) Radiculopathy, lumbar regionLong term (current) use of opiate analgesicMyalg ia, other sitePain in right kneeChronic pain syndromePostla minectomy syndrome, not elsewhere classified Sep-2 5-202 0 Mayra Rapp. [facility] [facility] [address], [place], [place], [id number] , [place]. tel:[phone] Referring Provider: Too Del Cid, [address] [place] [address], [address]. tel:[phone] [facility], [address] [place] [address], [id number] , [place] tel:[phone] [facility] Pain [facility] Radiculopathy, lumbar region Sep-0 3-202 0 Cummings Michelle. [address] [place] [address], [id number] , [place]. tel:[phone] Referring Provider: Too Del Cid, [address] [place] [address], [id number]. tel:[phone] [facility], [address] [place] [address], [id number] , [place] tel:[phone] [facility] No Information Sep-0 3-202 0 Cummings Michelle. [address] [place] [address], [id number] , [place]. tel:[phone] Referring Provider: Too Del Cid, [address] [place] [address], [id number]. tel:[phone] OFFICE VISIT, EST TELEMEDICINE [facility], [address] [place] [address], [id number] , [place] tel: [phone] [facility] [place] Widespread pain (chief complaint) Postlaminectom y syndrome, not elsewhere classifiedLong term (current) use of opiate analgesicRadic ulopathy, lumbar regionMyalgia, other sitePain in right kneeChronic pain syndrome 0 Nunez Dionte. [address] [place] [address] [address], [facility], [place], [id number] , [place]. tel:[phone] Referring Provider: Too Del Cid, [address] [place] [address], [address]. tel:[phone] [facility], [address] [place] [address], [id number] , [place] tel:[phone] [facility] [place] Postlaminectom y syndrome, not elsewhere classified 0 Nunez Dionte. [facility]5 [facility] [address], [facility], [place], [id number] , [place]. tel:[phone] OFFICE VISIT, EST TELEMEDICINE [facility], [address] [place] [address], [id number] , [place] tel: [phone] [facility] Pain [facility] Widespread pain (chief complaint) Pain in right kneeChronic pain syndromePostla minectomy syndrome, not elsewhere classifiedLong term (current) use of opiate analgesicRadic ulopathy, lumbar regionMyalgia, other site 0 Nunez Dionte. [address] [place] [address] [address], [place], [place], [id number] , [place]. tel:[phone] Referring Provider: Too Del Cid, [address] [place] [address], [address]. tel:[phone] OFFICE VISIT, EST TELEMEDICINE [facility], [address] [place] [address], [id number] , [place] tel:[phone] [facility] Widespread pain (chief complaint) Pain in right kneeChronic pain syndromePostla minectomy syndrome, not elsewhere classifiedLong term (current) use of opiate analgesicRadic ulopathy, lumbar regionMyalgia, other site 0 Nunez Dionte. [address] [place] [address] [address], [place], [place], [id number] , [place]. tel:[phone] Referring Provider: Too Del Cid, [address] [place] [address], [id number]. tel:[phone] OFFICE VISIT, EST TELEMEDICINE [facility], [address] [place] [address], [id number] , [place] [phone] [facility] Widespread pain (chief complaint) Postlaminectom y syndrome, not elsewhere classifiedPain in right kneeChronic pain syndromeLong term (current) use of opiate analgesicRadic ulopathy, lumbar regionMyalgia, other site 0 Mayra Rapp. [address] [place] [address] [address], [place], [place], [id number] , [place]. [phone] Referring Provider: Too Del Cid, [address] [place] [address], [address]. tel:[phone] Psych Dx Eval [facility], [address] [place] [address], [id number] , [place] tel:[phone] [facility] Pain disorder with related psychological factorsPost-tr aumatic stress disorder, unspecified 0 Tess Aguilar. [address] [place] [address], [id number] , [place]. tel:[phone] Referring Provider: Too Del Cid, [address] [place] [address], [address]. tel:[phone] OFFICE VISIT, EST TELEMEDICINE [facility], [address] [place] [address], [id number] , [place] tel:[phone] [facility] Widespread pain (chief complaint) Chronic pain syndromePain in right kneePostlamine ctomy syndrome, not elsewhere classifiedLong term (current) use of opiate analgesicMyalg ia, other siteRadiculopa thy, lumbar region 0 Mayra Rapp. [address] [place] [address] [address], [place], [place], [id number] , [place]. tel:[phone] Referring Provider: Too Del Cid, [address] [place] [address], [address]. tel:[phone] OFFICE VISIT, [facility], [address] [place] [address], [id number] , [place] tel: [phone] [facility] Widespread pain (chief complaint) Chronic pain syndromePain in right kneePostlamine ctomy syndrome, not elsewhere classifiedLong term (current) use of opiate analgesic Amos-0 - 0 Nunez Dionte. [address] [place] [address] [address], [place], [place], [id number] , [place]. tel: [phone] Referring Provider: Too Del Cid, [address] [place] [address], [address]. tel:[phone] OFFICE VISIT, [facility], [address] [place] [address], [id number] , [place] tel: [phone] [facility] Widespread pain (chief complaint) Postlaminectom y syndrome, not elsewhere classifiedPain in right kneeChronic pain syndromeLong term (current) use of opiate analgesic September- 0 Nunez Dionte. [address] [place] [address] [address], [place], [place], [id number] , [place]. tel: [phone] Referring Provider: Too Del Cid, [address] [place] [address], [address]. tel:[phone] OFFICE VISIT, [facility], [address] [place] [address], [id number] , [place] tel: [phone] [facility] Widespread pain (chief complaint) Postlaminectom y syndrome, not elsewhere classifiedPain in right kneeChronic pain syndromeLong term (current) use of opiate analgesicPain in left hip September-0 0 Nunez Dionte. [address] [place] [address] [address], [place], [place], [id number] , [place]. tel: [phone] OFFICE VISIT, [facility], [address] [place] [address], [id number] , [place] tel: [phone] [facility] Widespread pain (chief complaint) Postlaminectom y syndrome, not elsewhere classifiedPain in right kneeChronic pain syndromeLong term (current) use of opiate analgesic Apr-2 0-202 0 Mayra Rapp. [address] [facility] [address], [place], [place], [id number] , [place]. tel:[phone] Referring Provider: Too Del Cid, [address] [place] [address], [address]. [phone] OFFICE VISIT, EST TELEMEDICINE [facility], [address] [place] [address], [id number] , [place] tel:[phone] [facility] Widespread pain (chief complaint) Postlaminectom y syndrome, not elsewhere classifiedPain in right kneeChronic pain syndromeLong term (current) use of opiate analgesic Apr-0 2-202 0 Mayra Rapp. [address] [place] [address] [address], [place], [place], [id number] , [place]. tel:[phone] Referring Provider: Too Del Cid, [address] [place] [address], [address]. tel:[phone] OFFICE VISIT, EST TELEMEDICINE [facility], [address] [place] [address], [id number] , [place] tel:[phone] [facility] Pain [facility] Widespread pain (chief complaint) longterm (current) use of opiate analgesicPostl aminectomy syndrome, not elsewhere classifiedPain in right kneeChronic pain syndrome 8 0 Mayra Rapp. [address] [place] [address] [address], [place], [place], [id number] , [place]. tel:[phone] Referring Provider: Too Del Cid, [address] [place] [address], [address]. tel:[phone] [facility], [address] [place] [address], [id number] , [place] tel:[phone] [facility] [place] No Information Jul- 0-202 0 Mayra Rapp. [address] [place] [address] [address], [place], [place], [id number] , [place]. tel:[phone] OFFICE/OUTPAT IENT VISIT, [facility], [address] [place], [place], [id number] , [place] tel:[phone] [facility] Pain [facility] Widespread pain (chief complaint) Chronic pain syndromePostla minectomy syndrome, not elsewhere classifiedPain in right kneeLong term (current) use of opiate analgesic Jul-0 - 0 Mayra Rapp. [address] [facility] [address], [place], [place], [id number] , [place]. tel:[phone] Referring Provider: Too Del Cid, [address] [place] [address], [address]. tel:[phone] OFFICE/OUTPAT IENT VISIT, [facility], [address] [place], [place], [id number] , [place] tel:[phone] [facility] Widespread pain (chief complaint) Chronic pain syndromePostla minectomy syndrome, not elsewhere classifiedMyal isabel, other sitePain in right kneeEncounter for therapeutic drug level monitoringLong term (current) use of opiate analgesic Jul-2 0 Nunez Dionte. [address] [facility] [address], [place], [place], [id number] , [place]. tel:[phone] Referring Provider: Caleb Ontiveros [facility] [address] [facility], [place], [address]. tel:[phone] Family History Family Member Type Diagnosis Age At Onset No Information Payers Payer name Insurance type Covered alliance party ID Authorfrankoa agnieszka(s) Marcela MA [facility] Replacement [id number] Social History Type Description Quantity Date Captured [...] due Goal OARS. Due on due Goal Update Social Hi story. Due on due Goal Hepatitis C scre ening. Due on due Goal VISUAL AID EXPERT Scanned. Due on due Goal Creatinine. Due on due Goal Tobacco Use. Due on due Goal PHQ-9. Due on du e Goal Height. Due on d ue Goal Weight. Due on d ue Goal FIT-DNA. Due on due Goal ALT (SGPT). Due on due Goal Review Allergy L ist. Due on due Goal Lipid panel. Due on due Goal Zoster vaccine ( 1st). Due on due Goal MANAGER SHAREPOINT Paperwork. Due on due Goal UDT. Due on due Goal Unhealthy drug u se screening. Due on due Goal HPV. Due on due Goal Medication Recon ciliation. Due on due Goal FIT. Due on due Goal CT-Colonography. Due on due Goal Height. Due on d ue Goal Order Annual PT. Due on due Goal Tobacco Use. Due on due Goal PHQ-9. Due on du e Goal VISUAL AID EXPERT Scanned. Due on due Goal MANAGER SHAREPOINT Paperwork. Due on due Goal Creatinine. Due on due Goal Unhealthy drug u se screening. Due on due Goal ALT (SGPT). Due on due Goal Review Allergy L ist. Due on due Goal OARS. Due on due Goal UDT. Due on due Goal AST (SGOT). Due on due Goal FIT-DNA. Due on due Goal Zoster vaccine ( 1st). Due on due Goal HPV. Due on due Goal FIT. Due on due Goal Hepatitis C scre ening. Due on due Goal Medication Recon ciliation. Due on due Goal CT-Colonography. Due on due Goal Weight. Due on d ue Goal Lipid panel. Due on due Goal Update Social Hi story. Due on due Goal UDT. Due on due Goal PHQ-9. Due on du e Goal FIT-DNA. Due on due Goal Weight. Due on d ue Goal Creatinine. Due on due Goal MANAGER SHAREPOINT Paperwork. Due on due Goal OARS. Due on due Goal ALT (SGPT). Due on due Goal Hepatitis C scre ening. Due on due Goal VISUAL AID EXPERT Scanned. Due on due Goal Order Annual PT. Due on due Goal Height. Due on d ue Goal Unhealthy drug u se screening. Due on due Goal HPV. Due on due Goal Review Allergy L ist. Due on due Goal AST (SGOT). Due on due Goal Zoster vaccine ( 1st). Due on due Goal FIT. Due on due Goal Medication Recon ciliation. Due on due Goal CT-Colonography. Due on due Goal Lipid panel. Due on due Goal Update Social Hi story. Due on due Goal Tobacco Use. Due on due Goal Unhealthy drug u se screening. Due on due Goal ALT (SGPT). Due on due Goal Hepatitis C scre ening. Due on due Goal PHQ-9. Due on du e Goal OARS. Due on due Goal MANAGER SHAREPOINT Paperwork. Due on due Goal Height. Due on d ue Goal Weight. Due on d ue Goal FIT-DNA. Due on due Goal Review Allergy L ist. Due on due Goal Creatinine. Due on due Goal HPV. Due on due Goal UDT. Due on due Goal Tobacco Use. Due on due Goal CT-Colonography. Due on due Goal Zoster vaccine ( ). Due on due Goal FIT. Due on due Goal Update Social Hi story. Due on due Goal Lipid panel. Due on due Goal Order Annual PT. Due on due Goal Medication Recon ciliation. Due on due Goal AST (SGOT). Due on due Goal VISUAL AID EXPERT Scanned. Due on due Goal VISUAL AID EXPERT Scanned. Due on due Goal Zoster vaccine ( ). Due on due Goal ALT (SGPT). Due on due Goal MANAGER SHAREPOINT Paperwork. Due on due Goal Creatinine. Due on due Goal UDT. Due on due Goal AST (SGOT). Due on due Goal Review Allergy L ist. Due on due Goal OARS. Due on due Goal Update Social Hi story. Due on due Goal Order Annual PT. Due on due Goal Lipid panel. Due on due Goal Unhealthy drug u se screening. Due on due Goal Hepatitis C scre ening. Due on due Goal HPV. Due on due Goal FIT. Due on due Goal FIT-DNA. Due on due Goal Height. Due on d ue Goal Tobacco Use. Due on due Goal PHQ-9. Due on du e Goal Medication Recon ciliation. Due on due Goal Weight. Due on d ue Goal CT-Colonography. Due on due Goal VISUAL AID EXPERT Scanned. Due on due Goal Creatinine. Due on due Goal Review Allergy L ist. Due on due Goal OARS. Due on due Goal Update Social Hi story. Due on due Goal Zoster vaccine ( 1st). Due on due Goal FIT. Due on due Goal Hepatitis C scre ening. Due on due Goal AST (SGOT). Due on due Goal Order Annual PT. Due on due Goal Medication Recon ciliation. Due on due Goal UDT. Due on due Goal Lipid panel. Due on due Goal FIT-DNA. Due on due Goal PHQ-9. Due on du e Goal MANAGER SHAREPOINT Paperwork. Due on due Goal Height. Due on d ue Goal Weight. Due on d ue Goal Tobacco Use. Due on due Goal Unhealthy drug u se screening. Due on due Goal ALT (SGPT). Due on due Goal CT-Colonography. Due on due Goal HPV. Due on due Goal Creatinine. Due on due Goal CT-Colonography. Due on due Goal MANAGER SHAREPOINT Paperwork. Due on due Goal ALT (SGPT). Due on due Goal Medication Recon ciliation. Due on due Goal Order Annual PT. Due on due Goal Zoster vaccine ( 1st). Due on due Goal Update Social Hi story. Due on due Goal Unhealthy drug u se screening. Due on due Goal Review Allergy L ist. Due on due Goal PHQ-9. Due on du e Goal HPV. Due on due Goal Weight. Due on d ue Goal VISUAL AID EXPERT Scanned. Due on due Goal FIT-DNA. Due on due Goal Height. Due on d ue Goal Tobacco Use. Due on due Goal FIT. Due on due Goal OARS. Due on due Goal AST (SGOT). Due on due Goal UDT. Due on due Goal Hepatitis C scre ening. Due on due Goal Lipid panel. Due on due Goal UDT. Due on due Goal Weight. Due on d ue Goal AST (SGOT). Due on due Goal Creatinine. Due on due Goal Order Annual PT. Due on due Goal VISUAL AID EXPERT Scanned. Due on due Goal ALT (SGPT). Due on due Goal Height. Due on d ue Goal OARS. Due on due Goal MANAGER SHAREPOINT Paperwork. Due on due Goal Lipid panel. Due on due Goal Update Social Hi story. Due on due Goal Zoster vaccine ( 1st). Due on due Goal FIT-DNA. Due on due Goal Tobacco Use. Due on due Goal PHQ-9. Due on du e Goal Review Allergy L ist. Due on due Goal FIT. Due on due Goal CT-Colonography. Due on due Goal HPV. Due on due Goal Medication Recon ciliation. Due on due Goal Unhealthy drug u se screening. Due on due Goal Hepatitis C scre ening. Due on due Goal UDT. Due on due Goal Unhealthy drug u se screening. Due on due Goal VISUAL AID EXPERT Scanned. Due on due Goal Tobacco Use. Due on due Goal FIT-DNA. Due on due Goal CT-Colonography. Due on due Goal Lipid panel. Due on due Goal Creatinine. Due on due Goal FIT. Due on due Goal Review Allergy L ist. Due on due Goal ALT (SGPT). Due on due Goal PHQ-9. Due on du e Goal Medication Recon ciliation. Due on due Goal Order Annual PT. Due on due Goal MANAGER SHAREPOINT Paperwork. Due on due Goal HPV. Due on due Goal Zoster vaccine ( 1st). Due on due Goal OARS. Due on due Goal AST (SGOT). Due on due Goal Weight. Due on d ue Goal Height. Due on d ue Goal Hepatitis C scre ening. Due on due Goal Update Social Hi story. Due on due Goal MANAGER SHAREPOINT Paperwork. Due on due Goal OARS. Due on due Goal ALT (SGPT). Due on due Goal VISUAL AID EXPERT Scanned. Due on due Goal UDT. Due on due Goal Creatinine. Due on due Goal AST (SGOT). Due on due Goal Order Annual PT. Due on due Goal Lipid panel. Due on due Goal CT-Colonography. Due on due Goal Unhealthy drug u se screening. Due on due Goal FIT. Due on due Goal Tobacco Use. Due on due Goal Update Social Hi story. Due on due Goal Zoster vaccine ( 1st). Due on due Goal Medication Recon ciliation. Due on due Goal Weight. Due on d ue Goal HPV. Due on due Goal Review Allergy L ist. Due on due Goal PHQ-9. Due on du e Goal Hepatitis C scre ening. Due on due Goal Height. Due on d ue Goal FIT-DNA. Due on due Goal UDT. Due on due Goal ALT (SGPT). Due on due Goal AST (SGOT). Due on due Goal Order Annual PT. Due on due Goal MANAGER SHAREPOINT Paperwork. Due on due Goal Creatinine. Due on due Goal VISUAL AID EXPERT Scanned. Due on due Goal OARS. Due on due Goal Medication Recon ciliation. Due on due Goal Lipid panel. Due on due Goal Review Allergy L ist. Due on due Goal HPV. Due on due Goal Tobacco Use. Due on due Goal Height. Due on d ue Goal CT-Colonography. Due on due Goal Zoster vaccine ( 1st). Due on due Goal PHQ-9. Due on du e Goal Weight. Due on d ue Goal Update Social Hi story. Due on due Goal FIT-DNA. Due on due Goal FIT. Due on due Goal Unhealthy drug u se screening. Due on due Goal Hepatitis C scre ening. Due on due Goal VISUAL AID EXPERT Scanned. Due on due Goal Creatinine. Due on due Goal OARS. Due on due Goal Order Annual PT. Due on due Goal MANAGER SHAREPOINT Paperwork. Due on due Goal AST (SGOT). Due on due Goal ALT (SGPT). Due on due Goal UDT. Due on due Goal Tobacco Use. Due on due Goal Review Allergy L ist. Due on due Goal Height. Due on d ue Goal Hepatitis C scre ening. Due on due Goal FIT-DNA. Due on due Goal HPV. Due on due Goal FIT. Due on due Goal CT-Colonography. [...] Social Hi story. Due on due Goal UDT. Due on due Goal CT-Colonography. Due on due Goal Unhealthy drug u se screening. Due on due Goal Order Annual PT. Due on due Goal FIT-DNA. Due on due Goal HPV. Due on due Goal VISUAL AID EXPERT Scanned. Due on due Goal AST (SGOT). Due on due Goal Lipid panel. Due on due Goal PHQ-9. Due on du e Goal Creatinine. Due on due Goal FIT. Due on due Goal Medication Recon ciliation. Due on due Goal Weight. Due on d ue Goal MANAGER SHAREPOINT Paperwork. Due on due Goal Review Allergy L ist. Due on due Goal ALT (SGPT). Due on due Goal OARS. Due on due Goal Height. Due on d ue Goal Hepatitis C scre ening. Due on due Goal Zoster vaccine ( 1st). Due on due Goal Tobacco Use. Due on due Goal Zoster vaccine ( 1st). Due on due Goal Medication Recon ciliation. Due on due Goal Hepatitis C scre ening. Due on due Goal FIT. Due on due Goal Weight. Due on d ue Goal VISUAL AID EXPERT Scanned. Due on due Goal ALT (SGPT). Due on due Goal Order Annual PT. Due on due Goal AST (SGOT). Due on due Goal Unhealthy drug u se screening. Due on due Goal PHQ-9. Due on du e Goal Height. Due on d ue Goal Creatinine. Due on due Goal FIT-DNA. Due on due Goal Lipid panel. Due on due Goal Update Social Hi story. Due on due Goal Review Allergy L ist. Due on due Goal CT-Colonography. Due on due Goal MANAGER SHAREPOINT Paperwork. Due on due Goal OARS. Due on due Goal UDT. Due on due Goal Tobacco Use. Due on due Goal HPV. Due on due Goal MANAGER SHAREPOINT Paperwork. Due on due Goal FIT-DNA. Due on due Goal Lipid panel. Due on due Goal Weight. Due on d ue Goal UDT. Due on due Goal VISUAL AID EXPERT Scanned. Due on due Goal OARS. Due on due Goal Hepatitis C scre ening. Due on due Goal ALT (SGPT). Due on due Goal Creatinine. Due on due Goal Order Annual PT. Due on due Goal AST (SGOT). Due on due Goal CT-Colonography. Due on due Goal Update Social Hi story. Due on due Goal Zoster vaccine ( 1st). Due on due Goal Tobacco Use. Due on due Goal PHQ-9. Due on du e Goal Unhealthy drug u se screening. Due on due Goal Height. Due on d ue Goal FIT. Due on due Goal Review Allergy L ist. Due on due Goal HPV. Due on due Goal Medication Recon ciliation. Due on due Goal UDT. Due on due Goal Order Annual PT. Due on due Goal VISUAL AID EXPERT Scanned. Due on due Goal Creatinine. Due on due Goal OARS. Due on due Goal AST (SGOT). Due on due Goal FIT-DNA. Due on due Goal Weight. Due on d ue Goal CT-Colonography. Due on due Goal Lipid panel. Due on due Goal Hepatitis C scre ening. Due on due Goal FIT. Due on due Goal Medication Recon ciliation. Due on due Goal Review Allergy L ist. Due on due Goal ALT (SGPT). Due on due Goal Height. Due on d ue Goal PHQ-9. Due on du e Goal Update Social Hi story. Due on due Goal Unhealthy drug u se screening. Due on due Goal Tobacco Use. Due on due Goal HPV. Due on due Goal Zoster vaccine ( 1st). Due on due Goal MANAGER SHAREPOINT Paperwork. Due on due Goal Order Annual PT. Due on due Goal FIT. Due on due Goal VISUAL AID EXPERT Scanned. Due on due Goal PHQ-9. Due on du e Goal UDT. Due on due Goal Medication Recon ciliation. Due on due Goal Unhealthy drug u se screening. Due on due Goal Review Allergy L ist. Due on due Goal FIT-DNA. Due on due Goal CT-Colonography. Due on due Goal Update Social Hi story. Due on due Goal Lipid panel. Due on due Goal Height. Due on d ue Goal Zoster vaccine ( ). Due on due Goal AST (SGOT). Due on due Goal Weight. Due on d ue Goal Hepatitis C scre ening. Due on due Goal HPV. Due on due Goal Creatinine. Due on due Goal OARS. Due on due Goal MANAGER SHAREPOINT Paperwork. Due on due Goal ALT (SGPT). Due on due Goal Tobacco Use. Due on due Goal Zoster vaccine ( ). Due on due Goal Order Annual PT. Due on due Goal FIT. Due on due Goal AST (SGOT). Due on due Goal Unhealthy drug u se screening. Due on due Goal Weight. Due on d ue Goal OARS. Due on due Goal Height. Due on d ue Goal ALT (SGPT). Due on due Goal Medication Recon ciliation. Due on due Goal HPV. Due on due Goal CT-Colonography. Due on due Goal VISUAL AID EXPERT Scanned. Due on due Goal FIT-DNA. Due on due Goal Tobacco Use. Due on due Goal Creatinine. Due on due Goal Review Allergy L ist. Due on due Goal Lipid panel. Due on due Goal MANAGER SHAREPOINT Paperwork. Due on due Goal UDT. Due on due Goal PHQ-9. Due on du e Goal Update Social Hi story. Due on due Goal Hepatitis C scre ening. Due on due Goal VISUAL AID EXPERT Scanned. Due on due Goal Medication Recon ciliation. Due on due Goal OARS. Due on due Goal Tobacco Use. Due on due Goal Creatinine. Due on due Goal MANAGER SHAREPOINT Paperwork. Due on due Goal ALT (SGPT). Due on due Goal Review Allergy L ist. Due on due Goal PHQ-9. Due on du e Goal Update Social Hi story. Due on due Goal Height. Due on d ue Goal UDT. Due on due Goal AST (SGOT). Due on due Goal Weight. Due on d ue Goal Order Annual PT. Due on due Goal AST (SGOT). Due on due Goal ALT (SGPT). Due on due Goal MANAGER SHAREPOINT Paperwork. Due on due Goal PHQ-9. Due on du e Goal Creatinine. Due on due Goal UDT. Due on due Goal Medication Recon ciliation. Due on due Goal VISUAL AID EXPERT Scanned. Due on due Goal Update Social Hi story. Due on due Goal Height. Due on d ue Goal Weight. Due on d ue Goal Review Allergy L ist. Due on due Goal Tobacco Use. Due on due Goal OARS. Due on due Goal Order Annual PT. Due on due Goal MANAGER SHAREPOINT Paperwork. Due on due Goal Tobacco Use. Due on due Goal PHQ-9. Due on du e Goal ALT (SGPT). Due on due Goal Update Social Hi story. Due on due Goal OARS. Due on due Goal Order Annual PT. Due on due Goal Creatinine. Due on due Goal AST (SGOT). Due on due Goal VISUAL AID EXPERT Scanned. Due on due Goal Review Allergy L ist. Due on due Goal Height. Due on d ue Goal UDT. Due on due Goal Weight. Due on d ue Goal Medication Recon ciliation. Due on due Goal OARS. Due on due Goal Creatinine. Due on due Goal VISUAL AID EXPERT Scanned. Due on due Goal Order Annual PT. Due on due Goal ALT (SGPT). Due on due Goal Update Social Hi story. Due on due Goal Review Allergy L ist. Due on due Goal AST (SGOT). Due on due Goal UDT. Due on due Goal Weight. Due on d ue Goal Medication Recon ciliation. Due on due Goal MANAGER SHAREPOINT Paperwork. Due on due Goal PHQ-9. Due on du e Goal Height. Due on d ue Goal Tobacco Use. Due on due Goal Creatinine. Due on due Goal OARS. Due on due Goal ALT (SGPT). Due on due Goal AST (SGOT). Due on due Goal Order Annual PT. Due on due Goal Review Allergy L ist. Due on due Goal Weight. Due on d ue Goal VISUAL AID EXPERT Scanned. Due on due Goal PHQ-9. Due on du e Goal MANAGER SHAREPOINT Paperwork. Due on due Goal Medication Recon ciliation. Due on due Goal Tobacco Use. Due on due Goal UDT. Due on due Goal Update Social Hi story. Due on due Goal Height. Due on d ue Goal VISUAL AID EXPERT Scanned. Due on due Goal Order Annual PT. Due on due Goal MANAGER SHAREPOINT Paperwork. Due on due Goal UDT. Due on due Goal Height. Due on d ue Goal PHQ-9. Due on du e Goal AST (SGOT). Due on due Goal Creatinine. Due on due Goal OARS. Due on due Goal ALT (SGPT). Due on due Goal Update Social Hi story. Due on due Goal Tobacco Use. Due on due Goal Medication Recon ciliation. Due on due Goal Weight. Due on d ue Goal Review Allergy L ist. Due on due Goal UDT. Due on due Goal AST (SGOT). Due on due Goal Order Annual PT. Due on due Goal OARS. Due on due Goal MANAGER SHAREPOINT Paperwork. Due on due Goal VISUAL AID EXPERT Scanned. Due on due Goal Creatinine. Due on due Goal Review Allergy L ist. Due on due Goal Height. Due on d ue Goal Tobacco Use. Due on due Goal Weight. Due on d ue Goal ALT (SGPT). Due on due Goal Medication Recon ciliation. Due on due Goal PHQ-9. Due on du e Goal Update Social Hi story. Due on due Goal Update Social Hi story. Due on due Goal ALT (SGPT). Due on due Goal Tobacco Use. Due on due Goal Height. Due on d ue Goal VISUAL AID EXPERT Scanned. Due on due Goal OARS. Due on due Goal Creatinine. Due on due Goal Weight. Due on d ue Goal UDT. Due on due Goal AST (SGOT). Due on due Goal Order Annual PT. Due on due Goal PHQ-9. Due on du e Goal MANAGER SHAREPOINT Paperwork. Due on due Goal Review Allergy L ist. Due on due Goal Medication Recon ciliation. Due on due Goal AST (SGOT). Due on due Goal Height. Due on d ue Goal PHQ-9. Due on du e Goal Order Annual PT. Due on due Goal Medication Recon ciliation. Due on due Goal Tobacco Use. Due on due Goal MANAGER SHAREPOINT Paperwork. Due on due Goal Review Allergy L ist. Due on due Goal Creatinine. Due on due Goal ALT (SGPT). Due on due Goal Update Social Hi story. Due on due Goal UDT. Due on due Goal OARS. Due on due Goal Weight. Due on d ue Goal VISUAL AID EXPERT Scanned. Due on due Goal UDT. Due on due Goal OARS. Due on due Goal Creatinine. Due on due Goal VISUAL AID EXPERT Scanned. Due on due Goal Review Allergy L ist. Due on due Goal Order Annual PT. Due on due Goal ALT (SGPT). Due on due Goal Tobacco Use. Due on due Goal PHQ-9. Due on du e Goal Update Social Lancope story. Due on due Goal MANAGER SHAREPOINT Paperwork. Due on due Goal AST (SGOT). Due on due Goal Medication Recon ciliation. Due on due Goal Height. Due on d ue Goal Weight. Due on d ue Goal Tobacco cessation counseling completed [facility] Referral Ordered: Azael Regan [facility] : Family Medicine (related to Radiculopathy, lumbar region) ordered Referral Referred To: [facility] [address] [facility] [place], [address] [phone] Ordered: Referrals: Family Medicine. [facility] Health ordered Referral Ordered: X-RAY EXAM OF HIPS LT hip ordered Referral Ordered: Azael Regan [facility] : Family Medicine (related to Postlaminectomy syndrome, not elsewhere classified) ordered Referral Referred To: Azael Regan [facility]
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 Patient was meeting with Jose from [employer] today and expressed her frustration with charging. [...] TKA on 07/09/[address] Camara from [facility]. VISUAL AID EXPERT was reviewed and shows pt was rx'ed 2mg Dilaudid max 7/day for post op pain. She was rx'ed #49tabs on 08/23/21, #49tabs on 08/19/21 and #49 tabs on 08/08/21. Her chronic dose at [facility] is #5tabs a day, patient agreeable to [...] rescheduled for 07/09/[address] Camara from [facility]. Surgeon will manage post-op pain. Lower [...] for [address] Lino or from [facility]. It was canceled due to no hospital beds available with [facility].Expresses her ongoing frustration regarding her lumbar Medtronic [...] scheduled R TKA with Dr. Camara through [facility]. Discussed post-op pain management. Also continues [...] order. She looks forward to reprogramming with [employer] today as she has had questions about [...] Pain has been worse. She went to [facility] two weeks ago with atrial fibrillation. She completed work-up and was put on warfarin. She met with her orthopedist at [facility] regarding her R knee pain. Orthopedist recommended [...] month due to visiting her daughter in [place]. She realized she can not walk long distances with her walker. Had a injection scheduled with [facility] but [employer] service could not provide her the ride from [place]. She is excited about the recently approved [...] trial.She had a recent lumbar MRI with [facility] and per patient the imaging showed herniation and disc slippage at multiple levels. She said [facility] recommend a injection. With previous injections, she explains having a reaction to the procedure. She scheduled the injection on 12/[address] estrella at [facility].Reports current medication regimen provides at least [...] upcoming appt. with a back surgeon through [facility] next week to be evaluated. Reports [...] over.Notes that she followed up with her billing spec yesterday. States that she has arrythmia although [...] Medtronic SCS trial. Reports she presented to [facility] and dropped off her psych evaluation report, [...] and she is also unable to attend adult caregiver which she significantly benefits from. She still [...] her medication. Medications are managed by [facility]. Denies side effects.Patient is not accompanied today [...] been recommended for possible R TKA at [facility], but no date has been scheduled. States her pain causes her lots of anxiety because she has tried many treatments without significant benefit. She is currently enrolled in PT at [facility] in [facility]. She also regularly attends the chiropractor. TENS [...] and other recommended therapies and would like [facility] to assume management of pain care. Functional Status Date Functional Assessmen t No Information Instructions Date Instruction Additional Infor mation No Information Assessments Type Assessment Date assessment Pain in right knee impression S/p right TKA on 12/[address] Camara from [facility]. Has been participating in PT with good benefit. Pain has been worse since [facility] assessment Pain in left ankle and joints of left foot impression Worsening pain in th e left ankle and is considering an ankle fusion assessment Radiculopathy, lumbar region Jul impression Lower back pain with radiation into her BLE, continues to worsen since [facility] assessment Myalgia, other site impression TPIs in the past wit hout benefit. PO muscle relaxers provide moderate relief assessment Postlaminectomy syndrome, not el sewhere classified impression Hx of L4-S1 fusion. 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 Medication managed by facility.Most of today's visit was spent discussing the patient's recent discharge from the clinic d/t her inappropriate behavior and language used toward staff. Patient expresses frustrations with termination. MANAGER SHAREPOINT terminated.Most recent UDT results reviewed and appropriate. Not appropriate to continue opioid therapy d/t issues with inappropriate behavior. Current MME 30 Mental Status Date Cognitive Assessment Orientation - Hooper ed to time, place, person, situation. Patient Care Teams Name Effective Dates (start - stop) Status Members No Information"
== END 2022-12-03 09:57 | disposition home or self-care (01) ==
PROVIDERS: PCP Internal Medicine; Visit Provider Internal Medicine
DX: I48.91 Unspecified atrial fibrillation (principal); R10.9 Unspecified abdominal pain; R53.83 Other fatigue; I10 Essential (primary) hypertension; E11.9 Type 2 diabetes mellitus without complications
CPT/HCPCS: 80053; 85610

== ENCOUNTER 2022-12-17 11:56 | Outpatient (CLI) | payer OTHER, SELFPAY ==
--- OUTSIDE RECORDS SUMMARY | 2022-12-17 12:01 | XMS_ITS | Continuity of Care Document ---
Author Name Unknown Organization [facility] Address [address] [place] [address] Care Team Providers Care Ultrasonographer Name Role Phone [facility] Unavailable Unav ailable Procedures Procedure Date IMPLANT [...] Diagnoses Date Provider Providers Copied on Encounter [facility], [address] [place] [address], [id number], [facility] No Information [facility]. [address] [place], [place], [id number], [place]. tel:[phone] Referring Provider: Michelle Cummings, [address] [place], [address]. tel:[phone] [facility], [address] [place], [place], [id number], [facility] No Information [facility]. [address] [facility] [place], [place], [id number], [place]. tel:[phone] Referring Provider: Too Del Cid, [address] [place], [address]. tel:[phone] [facility], [address] [place], [place], [id number], [place] [facility] No Information [facility]. [address] [place], [place], [id number], . tel:[phone] Referring Provider: Michelle Cummings, [address] [place], [address]. tel:[phone] Family History Family Member Type Diagnosis Age [...]
--- OUTSIDE RECORDS SUMMARY | 2022-12-17 12:01 | XMS_ITS | Continuity of Care Document ---
Author Name Unknown Organization [facility] Address [address] [place] [address] Phone Care Team Providers Care Patient Monitor Name Role Phone Odalys BOLES, Homar Unavailable [...] C, [address], [place], [place], [id number], [place] tel:[phone] [facility] No Information 8 Odalys Graf. [facility], [address] [place] [address] [address], [place], [place], [id number] , [place]. tel:[phone] [facility], [address], [place], [place], [id number], [place] tel:[phone] [facility] No Information 8 Odalys Graf. [facility], [address] [place] [address] [address], [place], [place], [id number] , [place]. tel:[phone] [facility], [address], [place], [place], [id number], [place] tel:[phone] [facility] No Information 8 Rodrick Pop. [facility], [address] [place] [address] [address], [place], [place], [id number] , [place]. tel:[phone] Referring Provider: Homar Morrow, [facility] [address] [place] [address] [address], [place], [address] . tel:[phone] [facility], [address], [place], [id number], [place] tel:[phone] [facility] No Information 6 8 Odalys Graf. [facility], [address], [place], [place], [address] , [place]. [phone] Referring Provider: Homar Morrow, [facility] [address], [place], [address] . tel:[phone] Office/Outpat ient Visit,Est, Mod [facility], [address], [place], [id number], [place] tel:[phone] [facility] Spinal stenosis, lumbar region 5 7 Odalys Graf. [facility], [address], [place], [address] , [place]. [phone] Referring Provider: Homar Morrow, [facility] [address], [place], [address] . tel:[phone] [facility], [address], [place], [id number], [place] tel:[phone] [facility] Spinal stenosis, lumbar region 0-201 6 Odalys Graf. [facility], [address], [place], [place], [address] , [place]. [phone] Referring Provider: Homar Morrow, [facility] [address], [place], [address] . tel:[phone] [facility], [address], [place], [id number], [place] tel:[phone] [facility] Arthrodes[facility] status [phone] Odalys Graf. [facility], [address], [place], [address] , [place]. [phone] [facility], [address], [place], [id number], [place] tel:[phone] [facility] No Information Sep-2 6 Odalys Rowlandin. [facility], [address], [place], [id number] , [place]. tel:[phone] Referring Provider: Homar Morrow, [facility] [address], [place], [address] . tel:[phone] Family History Family Member Type Diagnosis Age At Onset No Information Payers Payer name Insurance type Covered constitution party ID Authoreneida aaron(s) Medicare [id number] Social History Type Description Quantity Date Captured [...] Additional Infor jaylene Weight Management Education Rela bordie to Overweight Weight management: I nstructed to return to General Practitioner timeframe: 1 Month. Related to Overweight Assessments Type Assessment Date No Information Patient Care Teams Name Effective Dates (start - stop) Status Members No Information
--- OUTSIDE RECORDS SUMMARY | 2022-12-17 12:01 | XMS_ITS | Continuity of Care Document ---
Author Name Unknown Organization [facility] Address [address] [place] [address] Care Team Providers Care Neck Band Maker Name Role Phone Simba Lowry CRNA Unavailable Unavailable Procedures Procedure Date ANESTH, HEAD/NECK/PTRUNK ANESTH PERC IMG TX SP PROC Advance Directives Directive Yes / No Effective Date File Name No Information Encounters Encounter Description Practice Location Reason(s) For Visit Diagnoses Date Provider Providers Copied on Encounter [facility], [address] [place] [address], [id number], [facility] No Information Alen Cottrell. [address] [place] [address], [id number], . tel:[phone] Referring Provider: Michelle Cummings, [address] [place] [address], [address] . tel:[phone] [facility], [address] [place] [address], [id number], [facility] No Information Asad Ramirez. [address], [place], [place], [id number], . tel:[phone] Referring Provider: Too Del Cid, [address] [place], [address] . tel:[phone] Family History Family Member Type Diagnosis Age [...]
--- OUTSIDE RECORDS SUMMARY | 2022-12-17 12:02 | XMS_ITS | Continuity of Care Document ---
Author Name Unknown Organization [facility] rajiv Address [address] [place] [address] Phone Care Team Providers Care Layboy Operator Name Role Phone Dionte Granados Unavailable Unavailable [...] eval q3mo opiod tx [facility] Post Op [place] No Charge For Visit Per Prov IMPLANT [...] OFFICE VISIT, EST TELEMEDICINE 20 OFFICE VISIT, [facility] TELEMEDICINE 20 Foll-up eval q3mo opiod tx OFFICE/OUTPATIENT VISIT, EST Drug Urine Toxology With Chromatography SCS Trial Procedure Ordered INJ TRIGGER POINT, 1/2 MUSCL OFFICE/OUTPATIENT VISIT, NEW Advance Directives Directive Yes / No Effective Date File Name No Information Encounters Encounter Description Practice Location Reason(s) For Visit Diagnoses Date Provider Providers Copied on Encounter OFFICE VISIT, [facility], [address] [place], [place], [id number] , [place] tel:[phone] [facility] [place] Widespread pain (chief complaint) Pain in right kneePain in left ankle and joints of left footRadiculopa thy, lumbar regionMyalgia, other sitePostlamine ctomy syndrome, not elsewhere classifiedLong term (current) use of opiate analgesic 3 Mayra Rapp. [address], [place], [place], [id number] , [place]. tel:[phone] anticoagulant prescriber: Aleksey Smith [address], [address]. tel:[phone] Provider: Too Del Cid, [address] [place], [address]. tel:[phone] OFFICE VISIT, [facility], [address], [place], [id number] , [place] tel:[phone] [facility] Widespread pain (chief complaint) Postlaminectom y syndrome, not elsewhere classifiedRadi culopathy, lumbar regionMyalgia, other sitePain in left ankle and joints of left footPain in right kneeLong term (current) use of opiate analgesic 3 Shay Morales. [address], [place], [id number] , [place]. tel:[phone] anticoagulant prescriber: Aleksey Smith [address], [address]. tel:[phone] [facility], [address] [place] [address], [id number] , [place] tel:[phone] [facility] [place] pain (chief complaint) Postlaminectom y syndrome, not elsewhere classified 2 Indu Dalal. [address] [place] [address], [id number] , [place]. tel:[phone] Psych Dx Eval [facility], [address] [place] [address], [id number] , [place] tel:[phone] Telehealth Pain disorder with related psychological factorsPost-tr aumatic stress disorder, unspecified 2 Tess Cristiano Peg. [address] [place] [address], [id number] , [place]. tel:[phone] Referring Provider: Too Del Cid, [address] [place] [address], [address]. tel:[phone] Psych Dx al [facility], [address] [place] [address], [id number] , [place] tel: [phone] Telehealth Pain disorder with related psychological factorsAnxiety disorder 2 Tess Cristiano Peg. [address] [place] [address], [id number] , [place]. tel:[phone] OFFICE/OUTPAT IENT VISIT, EST [facility], [address] [place] [address], [id number] , [place] tel: [phone] [facility] [place] Widespread pain (chief complaint) Pain in right hipPain in right kneePain in left ankle and joints of left footRadiculopa thy, lumbar regionPostlami nectomy syndrome, not elsewhere classifiedLong term (current) use of opiate analgesicMyalg ia, other site 2 Heriberto Gage. [address] [place] [address], [id number] , [place]. tel:[phone] anticoagulant prescriber: Aleksey Smith, [address], [address]. tel:[phone] Provider: Too Del Cid, [address] [place] [address], [address]. tel:[phone] OFFICE VISIT, EST TELEMEDICINE [facility], [address] [place] [address], [id number] , [place] tel:[phone] [facility] Back Pain (chief complaint) Pain in right kneePain in left ankle and joints of left footRadiculopa thy, lumbar regionMyalgia, other sitePostlamine ctomy syndrome, not elsewhere classifiedLong term (current) use of opiate analgesicPain in right hip 2 Nunez Dionte. [address] [place] [address] [address], [place], [place], [id number] , [place]. tel:[phone] anticoagulant prescriber: Aleksey Smith, [address], [address]. tel:[phone] OFFICE VISIT, EST TELEMEDICINE [facility], [address] [place] [address], [id number] , [place] tel:[phone] [facility] Back Pain (chief complaint) Pain in right kneePain in left ankle and joints of left footRadiculopa thy, lumbar regionMyalgia, other sitePostlamine ctomy syndrome, not elsewhere classifiedLong term (current) use of opiate analgesic Mar- 2 Mayra Rapp. [address] [place] [address] [address], [place], [place], [id number] , [place]. tel:[phone] anticoagulant prescriber: Aleksey Smith, [address], [address]. tel:[phone] OFFICE VISIT, EST TELEMEDICINE [facility], [address] [place] [address], [id number] , [place] tel:[phone] [facility] Back Pain (chief complaint) Pain in right kneePain in left ankle and joints of left footRadiculopa thy, lumbar regionMyalgia, other sitePostlamine ctomy syndrome, not elsewhere classifiedLong term (current) use of opiate analgesic 2 Nuneznadeen Rapp. [address] [place] [address] [address], [place] Daniels, [id number] , [place]. tel:[phone] Referring Provider: Too Del Cid, [address] [place] [address], [address]. tel:[phone] OFFICE/OUTPAT IENT VISIT, [facility], [address] [place] [address], [id number] , [place] [phone] [facility] Back Pain (chief complaint) Pain in right kneePain in right ankle and joints of right footPain in left ankle and joints of left footRadiculopa thy, lumbar regionMyalgia, other sitePostlamine ctomy syndrome, not elsewhere classifiedLong term (current) use of opiate analgesic 2 Mayra Wilburnel. [address] [place] [address] [address] [facility] [address], [place], [id number] , [place]. [phone] Referring Provider: Too Del Cid, [address] [place] [address], [address]. tel:[phone] [facility], [address] [place] [address], [id number] , [place] tel:[phone] [facility] No Information 2 Will Too. [address] [place] [address], [id number] , [place]. [phone] OFFICE/OUTPAT IENT VISIT, [facility], [address] [place] [address], [id number] , [place] tel:[phone] [facility] Back Pain (chief complaint) Pain in right shoulderPain in right kneePain in right ankle and joints of right footPain in left ankle and joints of left footRadiculopa thy, lumbar regionMyalgia, other sitePostlamine ctomy syndrome, not elsewhere classifiedLong term (current) use of opiate analgesic 2 Nunezjonny Rapp. [address] [place] [address] [address], [place], [id number] , [place]. tel:[phone] Referring Provider: Too Del Cid, [address] [place] [address], [address]. tel:[phone] OFFICE/OUTPAT IENT VISIT, [facility], [address] [place] [address], [id number] , [place] [phone] [facility] Back Pain (chief complaint) Chronic migraine without aura, intractable, without status migrainosusPai n in right shoulderPain in right kneePain in right ankle and joints of right footPain in left ankle and joints of left footRadiculopa thy, lumbar regionMyalgia, other sitePostlamine ctomy syndrome, not elsewhere classifiedLong term (current) use of opiate analgesicSpond ylosis without myelopathy or radiculopathy, lumbar region 2 Mayra Rapp. [address] [place] [address] [address], [place], [id number] , [place]. [phone] Referring Provider: Too Del Cid, [address] [place] [address], [address]. tel:[phone] OFFICE VISIT, EST [facility], [address] [place] [address], [id number] , [place] [phone] [facility] Back Pain (chief complaint) Chronic migraine without aura, intractable, without status migrainosusPai n in right shoulderPain in right kneeRadiculopa thy, lumbar regionMyalgia, other sitePostlamine ctomy syndrome, not elsewhere classifiedLong term (current) use of opiate analgesicPain in left ankle and joints of left footPain in right ankle and joints of right foot 2 Mayra Rapp. [address] [place] [address] [address], [place], [id number] , [place]. tel:[phone] OFFICE/OUTPAT IENT VISIT, [facility], [address] [place] [address], [id number] , [place] [phone] [facility] Back Pain (chief complaint) Myalgia, other sitePain in right shoulderPain in right kneeRadiculopa thy, lumbar regionPostlami nectomy syndrome, not elsewhere classifiedLong term (current) use of opiate analgesicChron ic migraine without aura, intractable, without status migrainosus 2 Mayra Rapp. [address] [place] [address] [address], [place], [place], [id number] , [place]. tel:[phone] Referring Provider: Too Del Cid, [address] [place] [address], [address]. tel:[phone] [facility], [address] [place] [address], [id number] , [place] tel:[phone] [facility] [place] No Information 2 Will Too. [address] [place] [address], [id number] , [place]. tel: [phone] [facility], [address] [place] [address], [id number] , [place] tel:[phone] [facility] No Information 2 Mayra Rapp. [address] [place] [address] [address], [place], [place], [id number] , [place]. tel:[phone] Referring Provider: Too Del Cid, [address] [place] [address], [address]. tel:[phone] OFFICE/OUTPAT IENT VISIT, EST [facility], [address] [place] [address], [id number] , [place] tel:[phone] [facility] Back Pain (chief complaint) Radiculopathy, lumbar regionMyalgia, other sitePostlamine ctomy syndrome, not elsewhere classifiedLong term (current) use of opiate analgesicEncou nter for therapeutic drug level monitoringEnco unter for screening for other disorderPain in right shoulderPain in right knee 2 Mayra Rapp. [address] [place] [address] [address], [place], [place], [id number] , [place]. tel:[phone] Referring Provider: Caleb Ontiveros, [address], [place], [address]. tel:[phone] OFFICE VISIT, [facility], [address] [place] [address], [id number] , [place] tel:[phone] [facility] Back Pain (chief complaint) Postlaminectom y syndrome, not elsewhere classifiedRadi culopathy, lumbar regionMyalgia, other siteLong term (current) use of opiate analgesic 0- 2 Mayra Rapp. [address] [place] [address] [address], [place], [place], [id number] , [place]. tel:[phone] Referring Provider: Too Del Cid, [address] [place] [address], [address]. tel:[phone] OFFICE/OUTPAT IENT VISIT, [facility], [address] [place] [address], [id number] , [place] tel:[phone] [facility] Back Pain (chief complaint) Myalgia, other sitePostlamine ctomy syndrome, not elsewhere classifiedRadi culopathy, lumbar regionLong term (current) use of opiate analgesic May- 1 Mayra Rapp. [address] [place] [address] [address], [place], [place], [id number] , [place]. tel:[phone] Referring Provider: Too Del Cid, [address] [place] [address], [address]. tel:[phone] OFFICE VISIT, [facility], [address] [place] [address], [id number] , [place] tel:[phone] [facility] low back pain (chief complaint) Radiculopathy, lumbar regionMyalgia, other siteLong term (current) use of opiate analgesicPostl aminectomy syndrome, not elsewhere classified Nov-0 - 1 Mayra Rapp. [address] [place] [address] [address], [place], [place], [id number] , [place]. tel:[phone] Referring Provider: Too Del Cid, [address] [place] [address], [address]. tel:[phone] [facility], [address] [place] [address], [id number] , [place] tel:[phone] [facility] Postlaminectom y syndrome, not elsewhere classified 1 Nunez Dionte. [address] [place] [address] [address], [place], [place], [id number] , [place]. tel: [phone] Referring Provider: Too Del Cid, [address] [place] [address], [address]. tel:[phone] OFFICE/OUTPAT IENT VISIT, EST [facility], [address] [place] [address], [id number] , [place] tel:[phone] [facility] Widespread pain (chief complaint) Postlaminectom y syndrome, not elsewhere classifiedRadi culopathy, lumbar regionMyalgia, other siteLong term (current) use of opiate analgesic 1 Mayra Rapp. [address] [place] [address] [address], [place], [place], [id number] , [place]. tel:[phone] Referring Provider: Too Del Cid, [address] [place] [address], [address]. [phone] [facility], [address] [place] [address], [id number] , [place] tel: [phone] [facility] No Information 1 Nunez Dionte. [address] [place] [address] [address], [place], [place], [id number] , [place]. tel: [phone] Referring Provider: Too Del Cid, [address] [place] [address], [address]. tel:[phone] OFFICE/OUTPAT IENT VISIT, [facility], [address] [place] [address], [id number] , [place] tel: [phone] [facility] Widespread pain (chief complaint) Postlaminectom y syndrome, not elsewhere classifiedRadi culopathy, lumbar regionMyalgia, other siteLong term (current) use of opiate analgesic 1 Mayra Rapp. [address] [place] [address] [address], [place], [place], [id number] , [place]. [phone] Referring Provider: Too Del Cid, [address] [place] [address], [address]. tel:[phone] OFFICE/OUTPAT IENT VISIT, [facility], [address] [place] [address], [id number] , [place] [phone] [facility] Widespread pain (chief complaint) Postlaminectom y syndrome, not elsewhere classifiedRadi culopathy, lumbar regionMyalgia, other siteLong term (current) use of opiate analgesic 1 Mayra Rapp. [address] [place] [address], [place], [place], [id number] , [place]. [phone] Referring Provider: Too Del Cid, [address] [place] [address], [address]. tel:[phone] [address] [place] [address] Pain Clinic, [address] [place] [address], [id number] , [place] [phone] [facility] Postlaminectom y syndrome, not elsewhere classified 1 Mayra Rapp. [address] [place] [address] [address], [place], [place], [id number] , [place]. [phone] Referring Provider: Too Del Cid, [address] [place] [address], [address]. tel:[phone] OFFICE/OUTPAT IENT VISIT, [facility], [address] [place] [address], [id number] , [place] tel:[phone] [facility] Widespread pain (chief complaint) Radiculopathy, lumbar regionMyalgia, other siteLong term (current) use of opiate analgesicPostl aminectomy syndrome, not elsewhere classified 1 Mayra Rapp. [address] [place] [address] [address], [place], [place], [id number] , [place]. tel:[phone] Referring Provider: Too Del Cid, [address] [place] [address], [address]. [phone] [place] [address] Pain Clinic, [address] [place] [address], [id number] , [place] tel:[phone] [facility] Postlaminectom y syndrome, not elsewhere classified Apr-0 - 1 Mayra Rapp. [address] [place] [address] [address], [place], [place], [id number] , [place]. tel:[phone] Referring Provider: Too Del Cid, [address] [place] [address], [address]. tel:[phone] OFFICE/OUTPAT IENT VISIT, [facility], [address] [place] [address], [id number] , [place] tel: [phone] [facility] Widespread pain (chief complaint) Postlaminectom y syndrome, not elsewhere classifiedRadi culopathy, lumbar regionMyalgia, other siteLong term (current) use of opiate analgesicEncou nter for screening for other disorder Apr-0 1 Mayra Rapp. [address] [place] [address] [address], [place], [place], [id number] , [place]. tel: [phone] Referring Provider: oTo Del Cid, [address] [place] [address], [address]. tel:[phone] OFFICE/OUTPAT IENT VISIT, [facility], [address] [place] [address], [id number] , [place] tel: [phone] [facility] Widespread pain (chief complaint) Postlaminectom y syndrome, not elsewhere classifiedRadi culopathy, lumbar regionMyalgia, other siteLong term (current) use of opiate analgesic Mar-0 1 Mayra Rapp. [address] [place] [address] [address], [place], [place], [id number] , [place]. tel:[phone] Referring Provider: Too Del Cid, [address] [place] [address], [address]. tel:[phone] [facility], [address] [place] [address], [id number] , [place] tel:[phone] [facility] [place] Postlaminectom y syndrome, not elsewhere classified 1 Mayra Rapp. [address] [place] [address] [address], [place], [place], [id number] , [place]. [phone] Referring Provider: Too Del Cid, [address] [place] [address], [address]. tel:[phone] [facility], [address] [place] [address], [id number] , [place] tel:[phone] [facility] [place] No Information 1 Mayra Rapp. [address] [place] [address] [address], [place], [place], [id number] , [place]. tel:[phone] OFFICE/OUTPAT IENT VISIT, EST [facility], [address] [place] [address], [id number] , [place] tel:[phone] [facility] Widespread pain (chief complaint) Postlaminectom y syndrome, not elsewhere classifiedRadi culopathy, lumbar regionMyalgia, other siteLong term (current) use of opiate analgesicPain in right kneeChronic pain syndrome 1 Mayra Rapp. [address] [place] [address] [address], [place], [place], [id number] , [place]. tel:[phone] Referring Provider: Too Del Cid, [address] [place] [address], [address]. tel:[phone] OFFICE VISIT, EST TELEMEDICINE [facility], [address] [place] [address], [id number] , [place] tel:[phone] [facility] [place] Widespread pain (chief complaint) Postlaminectom y syndrome, not elsewhere classifiedRadi culopathy, lumbar regionMyalgia, other siteLong term (current) use of opiate analgesicPain in right kneeChronic pain syndrome 0 Mayra Rapp. [address] [facility] [address], [place], [place], [id number] , [place]. tel:[phone] Referring Provider: Too Del Cid, [address] [place] [address], [address]. tel:[phone] [facility], [address] [place] [address], [id number] , [place] tel:[phone] [facility] Postlaminectom y syndrome, not elsewhere classified 0 Mayra Rapp. [address] [place] [address] [address], [place], [place], [id number] , [place]. tel:[phone] Referring Provider: Too Del Cid, [address] [place] [address], [address]. tel:[phone] [facility], [address] [place] [address], [id number] , [place] tel:[phone] [facility] [place] Postlaminectom y syndrome, not elsewhere classified 0 Emiliano Martinez. [address] [place] [address], [id number] , [place]. tel:[phone] Referring Provider: Too Del Cid, [address] [place] [address], [address]. tel:[phone] OFFICE VISIT, EST TELEMEDICINE [facility], [address] [place] [address], [id number] , [place] tel:[phone] [facility] Widespread pain (chief complaint) Radiculopathy, lumbar regionMyalgia, other siteLong term (current) use of opiate analgesicPain in right kneeChronic pain syndromePostla minectomy syndrome, not elsewhere classified 0 Mayra Rapp. [address] [facility] [address], [place], [place], [id number] , [place]. tel:[phone] Referring Provider: Too Del Cid, [address] [place] [address], [address]. tel:[phone] OFFICE/OUTPAT IENT VISIT, EST [facility], [address] [place] [address], [id number] , [place] tel: [phone] [facility] [place] Widespread pain (chief complaint) Myalgia, other siteRadiculopa thy, lumbar regionPostlami nectomy syndrome, not elsewhere classifiedLong term (current) use of opiate analgesicPain in right kneeChronic pain syndrome 0 Mayra Rapp. [address] [facility] [address], [place], [place], [id number] , [place]. tel: [phone] Referring Provider: Too Del Cid, [address] [place] [address], [address]. tel:[phone] [phone] [place] [address] Pain Clinic, [address] [place] [address], [id number] , [place] tel: [phone] [facility] Postlaminectom y syndrome, not elsewhere classifiedMyal isabel, other site 0 Mayra Hays. [address] [facility] [address], [place], [place], [id number] , [place]. tel:[phone] Referring Provider: Too Del Cid, [address] [place] [address], [address]. tel:[phone] [facility], [address] [place] [address], [id number] , [place] tel:[phone] [facility] Radiculopathy, lumbar regionPostlami nectomy syndrome, not elsewhere classified 0 Mayra Rapp. [address] [facility] [address], [place], [place], [id number] , [place]. tel:[phone] Referring Provider: Too Del Cid, [address] [place] [address], [address]. tel:[phone] [facility], [address] [place] [address], [id number] , [place] tel:[phone] [facility] No Information 0 Heriberto Gage. [address] [place] [address], [id number] , [place]. tel:[phone] Referring Provider: Too Del Cid, [address] [place] [address], [address]. tel:[phone] OFFICE VISIT, EST TELEMEDICINE [facility], [address] [place] [address], [id number] , [place] tel:[phone] [facility] [place] Widespread pain (chief complaint) Radiculopathy, lumbar regionLong term (current) use of opiate analgesicMyalg ia, other sitePain in right kneeChronic pain syndromePostla minectomy syndrome, not elsewhere classified Sep-2 5-202 0 Mayra Rapp. [facility] [facility] [address], [place], [place], [id number] , [place]. tel:[phone] Referring Provider: Too Del Cid, [address] [place] [address], [address]. tel:[phone] [facility], [address] [place] [address], [id number] , [place] tel:[phone] [facility] Radiculopathy, lumbar region Sep-0 3-202 0 Cummings Michelle. [address] [place] [address], [id number] , [place]. tel:[phone] Referring Provider: Too Del Cid, [address] [place] [address], [address]. tel:[phone] [facility], [address] [place] [address], [id number] , [place] tel:[phone] [facility] No Information Sep-0 3-202 0 Cummings Michelle. [address] [place] [address], [id number] , [place]. tel:[phone] Referring Provider: Too Del Cid, [address] [place] [address], [address]. tel:[phone] OFFICE VISIT, EST TELEMEDICINE [facility], [address] [place] [address], [id number] , [place] tel: [phone] [facility] [place] Widespread pain (chief complaint) Postlaminectom y syndrome, not elsewhere classifiedLong term (current) use of opiate analgesicRadic ulopathy, lumbar regionMyalgia, other sitePain in right kneeChronic pain syndrome 0 Nunez Dionte. [address] [place] [address] [address], [facility], [place], [id number] , [place]. tel:[phone] Referring Provider: Too Del Cid, [address] [place] [address], [address]. tel:[phone] [facility], [address] [place] [address], [id number] , [place] tel:[phone] [facility] [place] Postlaminectom y syndrome, not elsewhere classified 0 Nunez Dionte. [facility] [address], [facility], [place], [id number] , [place]. tel:[phone] OFFICE VISIT, EST TELEMEDICINE [facility], [address] [place] [address], [id number] , [place] tel: [phone] [facility] Widespread pain (chief complaint) Pain in right kneeChronic pain syndromePostla minectomy syndrome, not elsewhere classifiedLong term (current) use of opiate analgesicRadic ulopathy, lumbar regionMyalgia, other site 0 Nunez Dionte. [address] [place] [address] [address], [place], [place], [id number] , [place]. tel:[phone] Referring Provider: Too Del Cid, [address] [place] [address], [address]. tel:[phone] OFFICE VISIT, EST TELEMEDICINE [facility], [address] [place] [address], [id number] , [place] tel:[phone] Tele[facility] Widespread pain (chief complaint) Pain in right kneeChronic pain syndromePostla minectomy syndrome, not elsewhere classifiedLong term (current) use of opiate analgesicRadic ulopathy, lumbar regionMyalgia, other site 0 Nunez Dionte. [address] [place] [address] [address], [place], [place], [id number] , [place]. tel:[phone] Referring Provider: Too Del Cid, [address] [place] [address], [address]. tel:[phone] OFFICE VISIT, EST TELEMEDICINE [facility], [address] [place] [address], [id number] , [place] [phone] Tele[facility] Widespread pain (chief complaint) Postlaminectom y syndrome, not elsewhere classifiedPain in right kneeChronic pain syndromeLong term (current) use of opiate analgesicRadic ulopathy, lumbar regionMyalgia, other site 0 Mayra Rapp. [address] [place] [address] [address], [place], [place], [id number] , [place]. [phone] Referring Provider: Too Del Cid, [address] [place] [address], [address]. tel:[phone] Psych Dx Eval [facility], [address] [place] [address], [id number] , [place] tel:[phone] Telehealth Pain disorder with related psychological factorsPost-tr aumatic stress disorder, unspecified 0 Tess Aguilar. [address] [place] [address], [id number] , [place]. tel:[phone] Referring Provider: Too Del iCd, [address] [place] [address], [address]. tel:[phone] OFFICE VISIT, EST TELEMEDICINE [facility], [address] [place] [address], [id number] , [place] tel:[phone] Tele[facility] Widespread pain (chief complaint) Chronic pain syndromePain in right kneePostlamine ctomy syndrome, not elsewhere classifiedLong term (current) use of opiate analgesicMyalg ia, other siteRadiculopa thy, lumbar region 0 Mayra Rapp. [address] [place] [address] [address], [place], [place], [id number] , [place]. tel:[phone] Referring Provider: Too Del Cid, [address] [place] [address], [address]. tel:[phone] OFFICE VISIT, [facility], [address] [place] [address], [id number] , [place] tel: [phone] Telehealth Widespread pain (chief complaint) Chronic pain syndromePain in right kneePostlamine ctomy syndrome, not elsewhere classifiedLong term (current) use of opiate analgesic Amos-0 - 0 Nunez Dionte. [address] [place] [address] [address], [place], [place], [id number] , [place]. tel: [phone] Referring Provider: Too Del Cid, [address] [place] [address], [address]. tel:[phone] OFFICE VISIT, [facility], [address] [place] [address], [id number] , [place] tel: [phone] Telehealth Widespread pain (chief complaint) Postlaminectom y syndrome, not elsewhere classifiedPain in right kneeChronic pain syndromeLong term (current) use of opiate analgesic September- 0 Nunez Dionte. [address] [place] [address] [address], [place], [place], [id number] , [place]. tel: [phone] Referring Provider: Too Del Cid, [address] [place] [address], [address]. tel:[phone] OFFICE VISIT, [facility], [address] [place] [address], [id number] , [place] tel: [phone] Tele[facility] Widespread pain (chief complaint) Postlaminectom y syndrome, not elsewhere classifiedPain in right kneeChronic pain syndromeLong term (current) use of opiate analgesicPain in left hip September-0 0 Nunez Dionte. [address] [place] [address] [address], [place], [place], [id number] , [place]. tel: [phone] OFFICE VISIT, [facility], [address] [place] [address], [id number] , [place] tel: [phone] Tele[facility] Widespread pain (chief complaint) Postlaminectom y syndrome, not elsewhere classifiedPain in right kneeChronic pain syndromeLong term (current) use of opiate analgesic Apr-2 0-202 0 Mayra Rapp. [address] [facility] [address], [place], [place], [id number] , [place]. tel:[phone] Referring Provider: Too Del Cid, [address] [place] [address], [address]. tel:[phone] OFFICE VISIT, EST TELEMEDICINE [facility], [address] [place] [address], [id number] , [place] tel:[phone] Tele[facility] Widespread pain (chief complaint) Postlaminectom y syndrome, not elsewhere classifiedPain in right kneeChronic pain syndromeLong term (current) use of opiate analgesic Apr-0 2-202 0 Mayra Rapp. [address] [place] [address] [address], [place], [place], [id number] , [place]. tel:[phone] Referring Provider: Too Del Cid, [address] [place] [address], [address]. 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 [address] [place] [address] [address], [place], [place], [id number] , [place]. tel:[phone] Referring Provider: Too Del Cid, [address] [place] [address], [address]. tel:[phone] [facility], [address] [place] [address], [id number] , [place] tel:[phone] [facility] [place] No Information Jul- 0-202 0 Mayra Rapp. [address] [place] [address] [address], [place], [place], [id number] , [place]. tel:[phone] OFFICE/OUTPAT IENT VISIT, [facility], [address] [place], [place], [id number] , [place] tel:[phone] [facility] Widespread pain (chief complaint) Chronic pain syndromePostla minectomy syndrome, not elsewhere classifiedPain in right kneeLong term (current) use of opiate analgesic Jul-0 - 0 Mayra Rapp. [address] [facility] [address], [place], [place], [id number] , [place]. tel:[phone] Referring Provider: Too Del Cid, [address] [place] [address], [address]. tel:[phone] OFFICE/OUTPAT IENT VISIT, [facility], [address] [place], [place], [id number] , [place] tel:[phone] [facility] Widespread pain (chief complaint) Chronic pain syndromePostla minectomy syndrome, not elsewhere classifiedMyal isabel, other sitePain in right kneeEncounter for therapeutic drug level monitoringLong term (current) use of opiate analgesic Jul-2 0 Nunez Dionte. [address] [facility] [address], [place], [place], [id number] , [place]. tel:[phone] Referring Provider: Caleb Ontiveros [facility] [address] [facility], [place], [address]. tel:[phone] Family History Family Member Type Diagnosis Age At Onset No Information Payers Payer name Insurance type Covered republican ID Authorfrankoa agnieszka(s) Marcela MA [facility] Replacement [id number] Social History Type Description Quantity Date Captured [...] C scre ening. Due on due Goal DIRECTOR OF PROFESSIONAL SERVICES Scanned. Due on due Goal Creatinine. Due [...] vaccine ( 1st). Due on due Goal COLLECTION ANALYST Paperwork. Due on due Goal UDT. Due [...] Goal PHQ-9. Due on du e Goal DIRECTOR OF PROFESSIONAL SERVICES Scanned. Due on due Goal COLLECTION ANALYST Paperwork. Due on due Goal Creatinine. Due [...] due Goal CT-Colonography. Due on due Goal UDT. Due on due Goal PHQ-9. Due on du e Goal FIT-DNA. Due on due Goal Weight. Due on d ue Goal Creatinine. Due on due Goal COLLECTION ANALYST Paperwork. Due on due Goal OARS. Due on due Goal ALT (SGPT). Due on due Goal Hepatitis C scre ening. Due on due Goal DIRECTOR OF PROFESSIONAL SERVICES Scanned. Due on due Goal Order Annual PT. Due on due Goal Height. Due on d ue Goal Unhealthy drug u se screening. Due on due Goal HPV. Due on due Goal Review Allergy L ist. Due on due Goal AST (SGOT). Due on due Goal Update Social Hi [...] Goal AST (SGOT). Due on due Goal DIRECTOR OF PROFESSIONAL SERVICES Scanned. Due on due Goal ALT (SGPT). Due on due Goal Hepatitis C scre ening. Due on due Goal PHQ-9. Due on du e Goal OARS. Due on due Goal COLLECTION ANALYST Paperwork. Due on due Goal Height. Due [...] ue Goal CT-Colonography. Due on due Goal PHQ-9. Due on du e Goal DIRECTOR OF PROFESSIONAL SERVICES Scanned. Due on due Goal Zoster vaccine ( 1st). Due on due Goal Lipid panel. Due on due Goal Unhealthy drug u se screening. Due on due Goal Hepatitis C scre ening. Due on due Goal HPV. Due on due Goal FIT. Due on due Goal FIT-DNA. Due on due Goal Height. Due on d ue Goal Medication Recon ciliation. Due on due Goal ALT (SGPT). Due on due Goal COLLECTION ANALYST Paperwork. Due on due Goal Creatinine. Due [...] C scre ening. Due on due Goal DIRECTOR OF PROFESSIONAL SERVICES Scanned. Due on due Goal Creatinine. Due on due Goal Review Allergy L ist. Due on due Goal OARS. Due on due Goal Update Social Hi story. Due on due Goal Zoster vaccine ( 1st). Due on due Goal AST (SGOT). Due on due Goal Order Annual PT. Due on due Goal Medication Recon ciliation. Due on due Goal UDT. Due on due Goal Lipid panel. Due on due Goal FIT-DNA. Due on due Goal PHQ-9. Due on du e Goal COLLECTION ANALYST Paperwork. Due on due Goal Height. Due [...] ue Goal Creatinine. Due on due Goal CT-Colonography. Due on due Goal COLLECTION ANALYST Paperwork. Due on due Goal ALT (SGPT). [...] Goal Weight. Due on d ue Goal DIRECTOR OF PROFESSIONAL SERVICES Scanned. Due on due Goal Tobacco Use. Due on due Goal FIT. Due on due Goal OARS. Due on due Goal AST (SGOT). Due on due Goal UDT. Due on due Goal FIT. Due on due Goal Unhealthy drug u se screening. Due on due Goal Hepatitis C scre ening. Due on due Goal CT-Colonography. Due on due Goal UDT. Due on due Goal Weight. Due on d ue Goal AST (SGOT). Due on due Goal Creatinine. Due on due Goal Order Annual PT. Due on due Goal DIRECTOR OF PROFESSIONAL SERVICES Scanned. Due on due Goal ALT (SGPT). Due on due Goal Height. Due on d ue Goal OARS. Due on due Goal COLLECTION ANALYST Paperwork. Due on due Goal Lipid panel. [...] Order Annual PT. Due on due Goal COLLECTION ANALYST Paperwork. Due on due Goal HPV. Due [...] u se screening. Due on due Goal DIRECTOR OF PROFESSIONAL SERVICES Scanned. Due on due Goal Tobacco Use. Due on due Goal FIT-DNA. Due on due Goal CT-Colonography. Due on due Goal Lipid panel. Due on due Goal Creatinine. Due on due Goal FIT. Due on due Goal Review Allergy L ist. Due on due Goal ALT (SGPT). Due on due Goal PHQ-9. Due on du e Goal COLLECTION ANALYST Paperwork. Due on due Goal OARS. Due on due Goal ALT (SGPT). Due on due Goal DIRECTOR OF PROFESSIONAL SERVICES Scanned. Due on due Goal UDT. Due on due Goal Creatinine. Due on due Goal AST (SGOT). Due on due Goal Order Annual PT. Due on due Goal Height. Due on d ue Goal FIT-DNA. Due on due Goal Lipid [...] Order Annual PT. Due on due Goal COLLECTION ANALYST Paperwork. Due on due Goal Creatinine. Due on due Goal DIRECTOR OF PROFESSIONAL SERVICES Scanned. Due on due Goal OARS. Due on due Goal Unhealthy drug u [...] due Goal FIT. Due on due Goal ALT (SGPT). Due on due Goal UDT. Due on due Goal DIRECTOR OF PROFESSIONAL SERVICES Scanned. Due on due Goal Creatinine. Due on due Goal OARS. Due on due Goal Order Annual PT. Due on due Goal COLLECTION ANALYST Paperwork. Due on due Goal AST (SGOT). [...] due Goal HPV. Due on due Goal DIRECTOR OF PROFESSIONAL SERVICES Scanned. Due on due Goal AST (SGOT). Due on due Goal Lipid panel. Due on due Goal PHQ-9. Due on du e Goal Creatinine. Due on due Goal FIT. Due on due Goal Medication Recon ciliation. Due on due Goal Weight. Due on d ue Goal COLLECTION ANALYST Paperwork. Due on due Goal Review Allergy L ist. Due on due Goal ALT (SGPT). Due on due Goal OARS. Due on due Goal Zoster vaccine ( 1st). Due on due Goal Tobacco Use. Due on due Goal Height. Due on d ue Goal Hepatitis C scre ening. Due on due Goal Zoster vaccine ( 1st). Due on due Goal Update Social Hi story. Due on due Goal Review Allergy L ist. Due on due Goal CT-Colonography. Due on due Goal COLLECTION ANALYST Paperwork. Due on due Goal OARS. Due on due Goal UDT. Due on due Goal Tobacco Use. Due on due Goal HPV. Due on due Goal Medication Recon ciliation. Due on due Goal Hepatitis C scre ening. Due on due Goal FIT. Due on due Goal Weight. Due on d ue Goal DIRECTOR OF PROFESSIONAL SERVICES Scanned. Due on due Goal ALT (SGPT). [...] due Goal UDT. Due on due Goal DIRECTOR OF PROFESSIONAL SERVICES Scanned. Due on due Goal COLLECTION ANALYST Paperwork. Due on due Goal FIT-DNA. Due on due Goal Lipid panel. Due on due Goal Weight. Due on d ue Goal OARS. Due on due Goal Hepatitis [...] Order Annual PT. Due on due Goal DIRECTOR OF PROFESSIONAL SERVICES Scanned. Due on due Goal Creatinine. Due on due Goal OARS. Due on due Goal AST (SGOT). Due on due Goal Zoster vaccine ( 1st). Due on due Goal COLLECTION ANALYST Paperwork. Due on due Goal FIT-DNA. Due [...] due Goal HPV. Due on due Goal Order Annual PT. Due on due Goal ALT (SGPT). Due on due Goal Tobacco Use. Due on due Goal FIT. Due on due Goal DIRECTOR OF PROFESSIONAL SERVICES Scanned. Due on due Goal PHQ-9. Due [...] due Goal OARS. Due on due Goal COLLECTION ANALYST Paperwork. Due on due Goal Zoster vaccine ( [...] due Goal CT-Colonography. Due on due Goal DIRECTOR OF PROFESSIONAL SERVICES Scanned. Due on due Goal FIT-DNA. Due on due Goal Tobacco Use. Due on due Goal Creatinine. Due on due Goal Review Allergy L ist. Due on due Goal Lipid panel. Due on due Goal COLLECTION ANALYST Paperwork. Due on due Goal UDT. Due on due Goal PHQ-9. Due on du e Goal ALT (SGPT). Due on due Goal Weight. Due on d ue Goal Order Annual PT. Due on due Goal DIRECTOR OF PROFESSIONAL SERVICES Scanned. Due on due Goal Medication Recon ciliation. Due on due Goal OARS. Due on due Goal Tobacco Use. Due on due Goal Creatinine. Due on due Goal COLLECTION ANALYST Paperwork. Due on due Goal Review Allergy [...] Social Hi story. Due on due Goal DIRECTOR OF PROFESSIONAL SERVICES Scanned. Due on due Goal Medication Recon ciliation. Due on due Goal UDT. Due on due Goal Creatinine. Due on due Goal PHQ-9. Due on du e Goal COLLECTION ANALYST Paperwork. Due on due Goal ALT (SGPT). Due on due Goal AST (SGOT). Due on due Goal COLLECTION ANALYST Paperwork. Due on due Goal Tobacco Use. Due on due Goal PHQ-9. Due on du e Goal ALT (SGPT). Due on due Goal Update Social Hi story. Due on due Goal OARS. Due on due Goal Order Annual PT. Due on due Goal Creatinine. Due on due Goal AST (SGOT). Due on due Goal DIRECTOR OF PROFESSIONAL SERVICES Scanned. Due on due Goal Review Allergy L ist. Due on due Goal Height. Due on d ue Goal UDT. Due on due Goal Weight. Due on d ue Goal Medication Recon ciliation. Due on due Goal OARS. Due on due Goal Creatinine. Due on due Goal DIRECTOR OF PROFESSIONAL SERVICES Scanned. Due on due Goal Order Annual PT. Due on due Goal ALT (SGPT). Due on due Goal Update Social Hi story. Due on due Goal Review Allergy L ist. Due on due Goal AST (SGOT). Due on due Goal UDT. Due on due Goal Weight. Due on d ue Goal Medication Recon ciliation. Due on due Goal COLLECTION ANALYST Paperwork. Due on due Goal PHQ-9. Due on du e Goal Height. Due on d ue Goal Tobacco Use. Due on due Goal Weight. Due on d ue Goal DIRECTOR OF PROFESSIONAL SERVICES Scanned. Due on due Goal PHQ-9. Due on du e Goal COLLECTION ANALYST Paperwork. Due on due Goal Medication Recon ciliation. Due on due Goal Tobacco Use. Due on due Goal UDT. Due on due Goal Update Social Hi story. Due on due Goal Height. Due on d ue Goal Creatinine. Due on due Goal OARS. Due on due Goal ALT (SGPT). Due on due Goal AST (SGOT). Due on due Goal Order Annual PT. Due on due Goal Review Allergy L ist. Due on due Goal AST (SGOT). Due on due Goal Creatinine. Due on due Goal DIRECTOR OF PROFESSIONAL SERVICES Scanned. Due on due Goal Order Annual PT. Due on due Goal COLLECTION ANALYST Paperwork. Due on due Goal UDT. Due on due Goal Height. Due on d ue Goal PHQ-9. Due on du e Goal OARS. Due on due Goal ALT [...] due Goal OARS. Due on due Goal COLLECTION ANALYST Paperwork. Due on due Goal DIRECTOR OF PROFESSIONAL SERVICES Scanned. Due on due Goal Review Allergy [...] Goal Height. Due on d ue Goal DIRECTOR OF PROFESSIONAL SERVICES Scanned. Due on due Goal OARS. Due on due Goal Creatinine. Due on due Goal Weight. Due on d ue Goal UDT. Due on due Goal AST (SGOT). Due on due Goal Order Annual PT. Due on due Goal PHQ-9. Due on du e Goal COLLECTION ANALYST Paperwork. Due on due Goal Review Allergy L ist. Due on due Goal Medication Recon ciliation. Due on due Goal AST (SGOT). Due on due Goal Height. Due on d ue Goal PHQ-9. Due on du e Goal Order Annual PT. Due on due Goal Medication Recon ciliation. Due on due Goal Tobacco Use. Due on due Goal COLLECTION ANALYST Paperwork. Due on due Goal Review Allergy L ist. Due on due Goal Creatinine. Due on due Goal ALT (SGPT). Due on due Goal Update Social Hi story. Due on due Goal UDT. Due on due Goal OARS. Due on due Goal Weight. Due on d ue Goal DIRECTOR OF PROFESSIONAL SERVICES Scanned. Due on due Goal Order Annual PT. Due on due Goal ALT (SGPT). Due on due Goal Tobacco Use. Due on due Goal PHQ-9. Due on du e Goal Update Social Memet[employer] story. Due on due Goal COLLECTION ANALYST Paperwork. Due on due Goal AST (SGOT). Due on due Goal Medication Recon ciliation. Due on due Goal Height. Due on d ue Goal Weight. Due on d ue Goal Review Allergy L ist. Due on due Goal DIRECTOR OF PROFESSIONAL SERVICES Scanned. Due on due Goal Creatinine. Due on due Goal OARS. Due on due Goal UDT. Due on due Goal Tobacco cessation counseling completed Referral Ordered: Azael Regan -Allopathic [facility] Osteopathic Physicians : Family Medicine (related to Radiculopathy, lumbar region) ordered Referral Ordered: [email or web address] -Family Medicine (related to Radiculopathy, lumbar region) ordered Referral Referred To: [facility] [address] [facility] [place], [address] [phone] Ordered: Referrals: Family Medicine. [facility] ordered Referral Ordered: X-RAY EXAM OF HIPS LT hip ordered Referral Ordered: Azael Regan -[facility]opathic [facility]opathic Physicians : Family Medicine (related to Postlaminectomy syndrome, not elsewhere classified) ordered Referral [facility]
[address] [place], [address] [phone] Ordered: Referrals: Allopathic & Osteopathic Physicians : [...] It occurs persistently. The problem is worsening. Widespread pain Severity level i s 9. Duration: chronic. Location of the pain is lower back, right hip and left ankle. It occurs persistently. The problem is worsening. Pertinent negatives include diarrhea, fatigue, fever and incontinence (urinary). Comments: Brandee is present here today for [...] experiencing withdrawal symptoms. No other concerns today. 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 Comments: Brandee presents for a follow up and medication refill in the setting of chronic low back, right hip and left ankle pain. Overall, pain has worsened since her last office visit. She reports that she is scheduled to undergo a right hip MRI in the near future for worsening discomfort. Patient was meeting with Jose from [employer] today and expressed her frustration with charging. [...] by her living facility. No other concerns. Widespread pain Location of the pain is lower back, right hip and left ankle. The client describes it as stiff, sharp and achy. It occurs persistently. The problem is worsening. Symptom is aggravated by bending, walking upstairs, walking downstairs and pulling. Pertinent negatives include diarrhea, fatigue, fever and incontinence (urinary). Back Pain Severity level i s 8. [...] lying down, pain meds/drugs, rest and chiropractic. Back Pain Severity level i s 7. [...] Pertinent negatives include bladder incontinence and diarrhea. Comments: Brandee is here today for medication [...] TKA on 07/09/[address] Camara from [facility]. DIRECTOR OF PROFESSIONAL SERVICES was reviewed and shows pt was rx'ed 2mg Dilaudid max 7/day for post op pain. She was rx'ed #49tabs on 08/23/21, #49tabs on 08/19/21 and #49 tabs on 08/08/21. Her chronic dose at [facility] is #5tabs a day, patient [...] accompanied today. No other concerns. Back Pain (comments) Brandee is he re for follow-up and medication management. Her current medication regimen offers greater than 50% pain relief. Her medications are currently managed by her living facility.Her chronic pain today is worse. Notes that her right TKA was rescheduled for 07/09/[address] Camara from [facility]. Surgeon will manage post-op pain. Lower [...] therapy, stretching, rest and walking. Back Pain Severity level i s 8. [...] for [address] Lino or from [facility]. It was canceled due to no hospital beds available with [facility].Expresses her ongoing frustration regarding her lumbar Medtronic [...] scheduled R TKA with Dr. Camara through [facility]. Discussed post-op pain management. Also continues [...] order. She looks forward to reprogramming with [facility] today as she has had questions about [...] Pain has been worse. She went to [facility] two weeks ago with atrial fibrillation. She completed work-up and was put on warfarin. She met with her orthopedist at [facility] regarding her R knee pain. Orthopedist recommended [...] fatigue, fever and incontinence (urinary). Widespread pain Duration: chroni c. Location of [...] rest, heat and Rx Meds. Widespread pain Duration: chroni c. Location of the pain is lower back, mid back and legs. It occurs persistently. The problem is stable. Symptom is aggravated by bending, walking upstairs, walking downstairs, sitting and standing. Relieving factors include rest, heat, cold and Rx Meds. Widespread pain (comments) Brandee [...] month due to visiting her daughter in [place]. She realized she can not walk long distances with her walker. Had a injection scheduled with [facility] but [employer] service could not provide her the ride from [place]. She is excited about the recently approved [...] injection on 12/[address] estrella at [facility].Reports current medication regimen provides at least [...] upcoming appt. with a back surgeon through [facility] next week to be evaluated. Reports [...] over.Notes that she followed up with her general internist and physician leader yesterday. States that she has arrythmia although [...] Medtronic SCS trial. Reports she presented to [facility] and dropped off her psych [...] and she is also unable to attend md do resident urgent care which she significantly benefits from. She still [...] her medication. Medications are managed by [facility]. Denies side effects.Patient is not [...] has started physical therapy at [facility] and intends on continuing twice weekly. She [...] been recommended for possible R TKA at [facility], but no date has been scheduled. States her pain causes her lots of anxiety because she has tried many treatments without significant benefit. She is currently enrolled in PT at [facility] in [facility]. She also regularly attends the chiropractor. TENS [...] and other recommended therapies and would like [facility] to assume management of pain care. Functional Status Date Functional Assessmen t No Information Instructions Date Instruction Additional Infor mation No Information Assessments Type Assessment Date assessment Pain in right knee impression S/p right TKA on 12/[address] Camara from [facility]. Has been participating in PT with good benefit. Pain has been worse since [facility] assessment Pain in left ankle and joints of left foot impression Worsening pain in th e left ankle and is considering an ankle fusion assessment Radiculopathy, lumbar region Jul impression Lower back pain with radiation into her BLE, continues to worsen since [facility] assessment Myalgia, other site impression TPIs in the past wit hout benefit. PO muscle relaxers provide moderate relief assessment Postlaminectomy syndrome, not el sewhere classified impression Hx of L4-S1 fusion. 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 Medication managed by facility.Most of today's visit was spent discussing the patient's recent discharge from the clinic d/t her inappropriate behavior and language used toward staff. Patient expresses frustrations with termination. COLLECTION ANALYST terminated.Most recent UDT results reviewed and appropriate. Not appropriate to continue opioid therapy d/t issues with inappropriate behavior. Current MME 30 Mental Status Date Cognitive Assessment Orientation - [place] ed to time, place, person, situation. Patient Care Teams Name Effective Dates (start - stop) Status Members No Information
--- NOTE | 2022-12-17 13:00 | CRLHL7_ITS ---
For Patients: As a result of the Century Cures Act, medical imaging exams and procedure reports are released immediately into your electronic medical record. You may view this report before your referring provider. If you have questions, please contact your health care provider. INDICATION: Neck pain. COMPARISON: None. TECHNIQUE: Sagittal T1, T2, and STIR sequences. Axial T2/gradient sequences. FINDINGS: Motion artifact. Straightening of the normal cervical lordosis which may be secondary to most spasm or patient positioning. Trace degenerative anterolisthesis of C3 on C4 and C4 on C5 measuring approximately 2 mm. Otherwise, normal alignment. No fractures. No vertebral body loss of height. No ligamentous injury. No suspicious osseous lesions. Allowing for artifact, grossly normal cord signal. No intradural mass or lesion. C1-2: No spinal canal narrowing. C2-3: No spinal canal or neural foraminal narrowing. C3-4: Grade 1 anterolisthesis. No narrowing of spinal canal. Uncovertebral set joint hypertrophy results in moderate narrowing of the right neural foramen. No narrowing of the left neural foramen. C4-5: Grade 1 anterolisthesis. No narrowing of spinal canal. Uncovertebral joint hypertrophy results in mild narrowing of the right neural foramen. No narrowing of the left neural foramen. C5-6: Disc degeneration and posterior disc bulging disc osteophyte complex. Effacement of ventral thecal sac and mild narrowing of spinal canal. Moderate narrowing of bilateral foramina. C6-7: Disc degeneration with posterior disc bulge or disc osteophyte complex. No spinal canal neural foraminal narrowing. C7-T1: No spinal canal or neural foraminal narrowing. IMPRESSION: 1. Straightening of the normal cervical lordosis. 2. Trace degenerative anterolisthesis of C3 on C4 and C4 on C5. Otherwise normal alignment. No fractures 3. Grossly normal cord signal. No intradural mass or lesion. 4. At C3-4, moderate narrowing of the right neural foramen 5. At C4-5, mild narrowing of the right neuroforamen. 6. At C5-6, mild narrowing of the spinal canal. Moderate narrowing of the bilateral neural foramina Dictated by Kadeem Venegas MD @ 12/18/2022 1:48:52 PM (Electronically Signed)
--- NOTE | 2022-12-17 13:45 | CRLHL7_ITS ---
For Patients: As a result of the Century Cures Act, medical imaging exams and procedure reports are released immediately into your electronic medical record. You may view this report before your referring provider. If you have questions, please contact your health care provider. INDICATION: Back pain. COMPARISON: None. TECHNIQUE: Sagittal T1, T2, and STIR sequences. Axial T2/gradient sequences. FINDINGS: Motion artifact compromises image detail particularly on the axial sequences Normal vertebral body facet alignment. No fractures. No vertebral body loss of height. No spondylolisthesis. No ligamentous injury. No suspicious osseous lesions. Spinal stimulator lead enters the dorsal epidural space at T12-L1 and extends cephalad to the level of T8. Associated artifact. Normal cord signal. No intradural mass or lesion. Thoracic spondylosis with multilevel disc degeneration. T8-9: Disc degeneration. Posterior disc bulge. No spinal canal or neural foraminal narrowing. T9-10: Disk degeneration. No spinal canal neural foraminal narrowing. T10-11 and T11-12: Disc degeneration and posterior disc bulging. No narrowing of the spinal canal. No neural foraminal narrowing. T12-L1: Disc degeneration and posterior disc bulge. No narrowing of the spinal canal. No neural foraminal narrowing. Normal paraspinal soft tissues. IMPRESSION: 1. Motion artifact 2. Normal alignment. No fractures 3. Normal cord signal. 4. Spinal stimulator lead enters the dorsal epidural space at T12-L1 and extends cephalad to the level of T8. There is associated artifact. 5. Thoracic spondylosis. 6. At T10-11 T11-12, posterior disc bulging. Otherwise, no spinal canal or neural foraminal narrowing. 7. No spinal canal or neural foraminal narrowing at the remaining levels Dictated by Kadeem Venegas MD @ 12/18/2022 1:56:44 PM (Electronically Signed)
--- NOTE | 2022-12-17 14:00 | CRLHL7_ITS ---
For Patients: As a result of the Century Cures Act, medical imaging exams and procedure reports are released immediately into your electronic medical record. You may view this report before your referring provider. If you have questions, please contact your health care provider. INDICATION: Left-sided abdominal pain. TECHNIQUE: Contrast enhanced CT of the abdomen and pelvis. 99 cc nonionic Isovue-370 administered. COMPARISON: September 30, 2014. FINDINGS: Minor fibrosis or atelectasis at each lung base. When compared to the prior study the patient has undergone bilateral hip arthroplasties and fusion L2-S1. Surgically absent gallbladder. Post gastric bypass changes. New stimulation pack projected over the posterior right lower hemithorax with its lead wires extending into the lower thoracic spinal canal. The liver is negative for masses or biliary dilatation. The spleen is not enlarged. The pancreas, adrenal glands, and left kidney are within normal limits. 2.8 x 2.3 cm right renal cyst previously 1.1 cm. There is no bowel obstruction or ileus. No ascites or lymphadenopathy. Postsurgical change within the anterior abdominal wall from hernia repair with extensive mesh placement. Vascular calcification within a normal caliber abdominal aorta and iliac arteries. Vascular calcification within the proximal renal arteries. The urinary bladder is largely obscured by metallic artifact from bilateral hip arthroplasties. Nonvisualization of the uterus and ovaries. IMPRESSION: 1. No acute abdominopelvic process identified. 2. New postsurgical change from multilevel lumbosacral fusion, bilateral hip replacement, and stimulation pack posterior right lower hemithorax with lead wires extending into the thoracic spinal canal. 3. Old postsurgical change from gastric bypass surgery. Cholecystectomy. 4. Enlarging simple cyst right kidney. 5. Ventral abdominal wall hernia repair with mesh placement. No convincing evidence for a recurrent anterior abdominal wall hernias. Please note that all CT scans at this facility use dose modulation, iterative reconstruction, and/or weight-based dosing when appropriate to reduce radiation dose to as low as reasonably achievable. Dictated by Champ Ling MD @ 12/17/2022 7:14:01 PM (Electronically Signed)
== END 2022-12-17 11:57 | disposition home or self-care (01) ==
PROVIDERS: PCP Internal Medicine; Visit Provider Orthopaedic Surgery
DX: R10.9 Unspecified abdominal pain (principal); N28.1 Cyst of kidney, acquired; K43.9 Ventral hernia without obstruction or gangrene; M54.2 Cervicalgia; M50.21 Other cervical disc displacement, high cervical region; M50.222 Other cervical disc displacement at C5-C6 level; M40.40 Postural lordosis, site unspecified; M54.9 Dorsalgia, unspecified; M51.24 Other intervertebral disc displacement, thoracic region; M47.894 Other spondylosis, thoracic region
CPT/HCPCS: 72141; 72146; 74177; Q9967

== ENCOUNTER 2022-12-19 09:02 | Outpatient (CLI) | payer OTHER, SELFPAY ==
--- OUTSIDE RECORDS SUMMARY | 2022-12-19 09:05 | XMS_ITS | Continuity of Care Document ---
Author Name Unknown Organization [facility] Address [address] [place] [id number] Care Team Providers Care Dowel Sander Operator Name Role Phone [facility] Unavailable Unav ailable Procedures Procedure Date IMPLANT [...] Diagnoses Date Provider Providers Copied on Encounter [facility], [address] [place] [address], [id number], [facility] No Information [facility]. [address] [facility] [place], [place], [id number], [place]. tel:[phone] Referring Provider: Michelle Cummings, [address] [place], [address]. tel:[phone] [facility], [address] [place], [place], [id number], [facility] No Information [facility]. [address] [facility] [place], [place], [id number], [place]. tel:[phone] Referring Provider: Too Del Cid, [address] [place], [address]. tel:[phone] [facility], [address] [place], [place], [id number], [place] [facility] No Information [facility]. [address] [place], [place], [id number], . tel:[phone] Referring Provider: Michelle Cummings, [address] [place], [address]. tel:[phone] Family History Family Member Type Diagnosis Age At Onset No Information Payers Payer name Insurance type Covered green party ID Authoriza tion(s) No Information Social History Type Description Quantity Date Captured Comments Sex Female Smoking Status No Information Chief Complaint And Reason For Visit No Information Reason For Referral Reason For Referral No Information History Of Present Illness Encounter Date Complaint History Of Prese nt Illness No Information Functional Status Date Functional Assessmen t No Information Instructions Date Instruction Additional Infor mation No Information Assessments Type Assessment Date No Information Patient Care Teams Name Effective Dates (start - stop) Status Members No Information
--- OUTSIDE RECORDS SUMMARY | 2022-12-19 09:05 | XMS_ITS | Continuity of Care Document ---
Author Name Unknown Organization [facility] Address [address] [place] [id number] Care Team Providers Care Project Assistant Name Role Phone Simba Lowry CRNA Unavailable Unavailable Procedures Procedure Date ANESTH, HEAD/NECK/PTRUNK ANESTH PERC IMG TX SP PROC Advance Directives Directive Yes / No Effective Date File Name No Information Encounters Encounter Description Practice Location Reason(s) For Visit Diagnoses Date Provider Providers Copied on Encounter [facility], [address] [place] [address], [id number], [facility] No Information Alen Cottrell. [address] [place] [address], [id number], . tel:[phone] Referring Provider: Michelle Cummings, [address] [place] [address], [address] . tel:[phone] [facility], [address] [place] [address], [id number], [facility] No Information Asad Ramirez. [address], [place], [place], [id number], . tel:[phone] Referring Provider: Too Del Cid, [address] [place], [address] . tel:[phone] Family History Family Member Type Diagnosis Age At Onset No Information Payers Payer name Insurance type Covered libertarian ID Authoriza tion(s) No Information Social History [...]
--- OUTSIDE RECORDS SUMMARY | 2022-12-19 09:05 | XMS_ITS | Continuity of Care Document ---
Author Name Unknown Organization [facility] Address [address] [place] [address] Phone Care Team Providers Care Collection Systems Administrator Name Role Phone Odalys BOLES, Homar Unavailable [...] C, [address], [place], [place], [id number], [place] tel:[phone] [facility] No Information 8 Odalys Graf. [facility], [address] [place] [address] [address], [place], [place], [id number] , [place]. tel:[phone] [facility], [address], [place], [place], [id number], [place] tel:[phone] [facility] No Information 8 Odalys Graf. [facility], [address] [place] [address] [address], [place], [place], [id number] , [place]. tel:[phone] [facility], [address], [place], [place], [id number], [place] tel:[phone] [facility] No Information 8 Rodrick Pop. [facility], [address] [place] [address] [address], [place], [place], [id number] , [place]. tel:[phone] Referring Provider: Homar Morrow, [facility] [address] [place] [address] [address], [place], [address] . tel:[phone] [facility], [address], [place], [id number], [place] tel:[phone] [facility] No Information 6 8 Odalys Graf. [facility], [address], [place], [place], [id number] , [place]. [phone] Referring Provider: Homar Morrow, [facility] [address], [place], [address] . tel:[phone] Office/Outpat ient Visit,Est, Mod [facility], [address], [place], [place], [id number], [place] tel:[phone] [facility] Spinal stenosis, lumbar region 5 7 Odalys Graf. [facility], [address], [place], [place], [id number] , [place]. [phone] Referring Provider: Homar Morrow, [facility] [address], [place], [address] . tel:[phone] [facility], [address], [place], [id number], [place] tel:[phone] [facility] Spinal stenosis, lumbar region 0-201 6 Odalys Graf. [facility], [address], [place], [id number] , [place]. [phone] Referring Provider: Homar Morrow, [facility] [address], [place], [address] . tel:[phone] [facility], [address], [place], [place], [id number], [place] tel:[phone] [facility] Arthrodesis status 1-201 6 Odalys Graf. [facility], [address], [place], [id number] , [place]. [phone] [facility], [address], [place], [id number], [place] tel:[phone] [facility] No Information Sep-2 6 Odalys Rowlandin. [facility], [address], [place], [id number] , [place]. tel:[phone] Referring Provider: Homar Morrow, [facility] [address], [place], [address] . tel:[phone] Family History Family Member Type Diagnosis Age At Onset No Information Payers Payer name Insurance type Covered democrat ID Authoreneida aaron(s) Medicare [id number] Social History Type Description Quantity Date Captured [...]
--- OUTSIDE RECORDS SUMMARY | 2022-12-19 09:06 | XMS_ITS | Continuity of Care Document ---
Author Name Unknown Organization [facility] rajiv Address [address] [place] [address] Phone Care Team Providers Care Retoucher Photoengraving Name Role Phone Dionte Granados Unavailable Unavailable [...] be prescribed during an appointment - Active triamcinolone acetonide 0.1 % topical [...] day 150 MG - No Longer Active hydroxyzine HCl 50 mg tablet Take one tablet every six hours as needed - No Longer Active cyclobenzaprine 10 mg [...] eval q3mo opiod tx [facility] Post Op [place] No Charge For Visit Per Prov IMPLANT [...] OFFICE VISIT, EST TELEMEDICINE 20 OFFICE VISIT, [facility] TELEMEDICINE 20 Foll-up eval q3mo opiod tx OFFICE/OUTPATIENT VISIT, EST Drug Urine Toxology With Chromatography SCS Trial Procedure Ordered INJ TRIGGER POINT, 1/2 MUSCL OFFICE/OUTPATIENT VISIT, NEW Advance Directives Directive Yes / No Effective Date File Name No Information Encounters Encounter Description Practice Location Reason(s) For Visit Diagnoses Date Provider Providers Copied on Encounter OFFICE VISIT, [facility], [address], [place], [id number] , [place] tel:[phone] [facility] [place] Widespread pain (chief complaint) Pain in right kneePain in left ankle and joints of left footRadiculopa thy, lumbar regionMyalgia, other sitePostlamine ctomy syndrome, not elsewhere classifiedLong term (current) use of opiate analgesic 3 Mayra Rapp. [address] [facility] [facility] [address], [place], [place], [id number] , [place]. tel:[phone] anticoagulant prescriber: Aleksey Smith [address], [address]. tel:[phone] Provider: Too Del Cid, [address] [place], [address]. tel:[phone] OFFICE VISIT, [facility], [address], [place], [id number] , [place] tel:[phone] [facility] Widespread pain (chief complaint) Postlaminectom y syndrome, not elsewhere classifiedRadi culopathy, lumbar regionMyalgia, other sitePain in left ankle and joints of left footPain in right kneeLong term (current) use of opiate analgesic 3 Shay Morales. [address], [place], [id number] , [place]. tel:[phone] anticoagulant prescriber: Aleksey Smith [address] [place], [address]. tel:[phone] [facility], [address] [place] [address], [id number] , [place] tel:[phone] [facility] [place] pain (chief complaint) Postlaminectom y syndrome, not elsewhere classified 2 Indu Dalal. [address], [place], [id number] , [place]. tel:[phone] Psych Dx Eval [facility], [address] [place] [address], [id number] , [place] tel:[phone] Telehealth Pain disorder with related psychological factorsPost-tr aumatic stress disorder, unspecified 2 Tess Cristiano Peg. [address] [place] [address], [id number] , [place]. tel:[phone] Referring Provider: Too Del Cid, [address] [place] [address], [address]. tel:[phone] Psych Dx Eval [facility], [address] [place] [address], [id number] , [place] tel:[phone] Telehealth Pain disorder with related psychological factorsAnxiety disorder 2 Tess Cristiano Peg. [address] [place] [address], [id number] , [place]. tel:[phone] OFFICE/OUTPAT IENT VISIT, [facility], [address] [place] [address], [id number] , [place] tel:[phone] [facility] [place] Widespread pain (chief complaint) Pain in right hipPain in right kneePain in left ankle and joints of left footRadiculopa thy, lumbar regionPostlami nectomy syndrome, not elsewhere classifiedLong term (current) use of opiate analgesicMyalg ia, other site 2 Heriberto Gage. [address] [place] [address], [id number] , [place]. tel:[phone] anticoagulant prescriber: Aleksey Smith, [address], [address]. tel:[phone] Provider: Too Del Cid, [address] [place] [address], [address]. tel:[phone] OFFICE VISIT, EST TELEMEDICINE [facility], [address] [place] [address], [id number] , [place] tel:[phone] [facility] Back Pain (chief complaint) Pain in right kneePain in left ankle and joints of left footRadiculopa thy, lumbar regionMyalgia, other sitePostlamine ctomy syndrome, not elsewhere classifiedLong term (current) use of opiate analgesicPain in right hip 2 Mayra Rapp. [address] [place] [address] [address], [place], [place], [id number] , [place]. tel:[phone] anticoagulant prescriber: Aleksey Smith, [address], [address]. tel:[phone] OFFICE VISIT, EST TELEMEDICINE [facility], [address] [place] [address], [id number] , [place] tel:[phone] [facility] Back Pain (chief complaint) Pain in right kneePain in left ankle and joints of left footRadiculopa thy, lumbar regionMyalgia, other sitePostlamine ctomy syndrome, not elsewhere classifiedLong term (current) use of opiate analgesic 2 Nunez Dionte. [address] [place] [address] [address], [place], [place], [id number] , [place]. tel:[phone] anticoagulant prescriber: Aleksey Smith [address], [address]. tel:[phone] OFFICE VISIT, EST TELEMEDICINE [facility], [address] [place] [address], [id number] , [place] tel:[phone] [facility] Back Pain (chief complaint) Pain in right kneePain in left ankle and joints of left footRadiculopa thy, lumbar regionMyalgia, other sitePostlamine ctomy syndrome, not elsewhere classifiedLong term (current) use of opiate analgesic 2 Mayra Rapp. [address] [place] [address] [address], [place], [id number] , [place]. tel:[phone] Referring Provider: Too Del Cid, [address] [place] [address], [address]. tel:[phone] OFFICE/OUTPAT IENT VISIT, [facility], [address] [place] [address], [id number] , [place] tel:[phone] [facility] Back Pain (chief complaint) Pain in right kneePain in right ankle and joints of right footPain in left ankle and joints of left footRadiculopa thy, lumbar regionMyalgia, other sitePostlamine ctomy syndrome, not elsewhere classifiedLong term (current) use of opiate analgesic 2 Mayra Rapp. [address] [place] [address] [address], [place], [id number] , [place]. [phone] Referring Provider: Too Del Cid, [address] [place] [address], [address]. tel:[phone] [facility], [address] [place] [address], [id number] , [place] tel:[phone] [facility] No Information 2 Will Too. [address] [place] [address], [id number] , [place]. [phone] OFFICE/OUTPAT IENT VISIT, [facility], [address] [place] [address], [id number] , [place] tel:[phone] [facility] Back Pain (chief complaint) Pain in right shoulderPain in right kneePain in right ankle and joints of right footPain in left ankle and joints of left footRadiculopa thy, lumbar regionMyalgia, other sitePostlamine ctomy syndrome, not elsewhere classifiedLong term (current) use of opiate analgesic 2 Mayra Rapp. [address] [place] [address] [address], [place], [id number] , [place]. [phone] Referring Provider: Too Del Cid, [address] [place] [address], [address]. tel:[phone] OFFICE/OUTPAT IENT VISIT, [facility], [address] [place] [address], [id number] , [place] tel:[phone] [facility] Back Pain (chief complaint) Chronic migraine without aura, intractable, without status migrainosusPai n in right shoulderPain in right kneePain in right ankle and joints of right footPain in left ankle and joints of left footRadiculopa thy, lumbar regionMyalgia, other sitePostlamine ctomy syndrome, not elsewhere classifiedLong term (current) use of opiate analgesicSpond ylosis without myelopathy or radiculopathy, lumbar region 2 Mayra Rapp. [address] [place] [address] [address], [place], [id number] , [place]. tel:[phone] Referring Provider: Too Del Cid, [address] [place] [address], [address]. tel:[phone] OFFICE VISIT, [facility], [address] [place] [address], [id number] , [place] [phone] [facility] Back Pain (chief complaint) Chronic migraine without aura, intractable, without status migrainosusPai n in right shoulderPain in right kneeRadiculopa thy, lumbar regionMyalgia, other sitePostlamine ctomy syndrome, not elsewhere classifiedLong term (current) use of opiate analgesicPain in left ankle and joints of left footPain in right ankle and joints of right foot 2 Mayra Rapp. [address] [place] [address] [address], [place], [id number] , [place]. tel:[phone] OFFICE/OUTPAT IENT VISIT, [facility], [address] [place] [address], [id number] , [place] [phone] [facility] Back Pain (chief complaint) Myalgia, other sitePain in right shoulderPain in right kneeRadiculopa thy, lumbar regionPostlami nectomy syndrome, not elsewhere classifiedLong term (current) use of opiate analgesicChron ic migraine without aura, intractable, without status migrainosus Aug- 2 Mayra Rapp. [address] [place] [address] [address], [place], [place], [id number] , [place]. tel:[phone] Referring Provider: Too Del Cid, [address] [place] [address], [address]. tel:[phone] [facility], [address] [place] [address], [id number] , [place] tel:[phone] [facility] [place] No Information Aug- 2 Will Too. [address] [place] [address], [id number] , [place]. tel:[phone] [facility], [address] [place] [address], [id number] , [place] tel:[phone] [facility] No Information Jul- 2 Mayra Rapp. [address] [place] [address] [address], [place], [place], [id number] , [place]. tel:[phone] Referring Provider: Too Del Cid, [address] [place] [address], [address]. tel:[phone] OFFICE/OUTPAT IENT VISIT, EST [facility], [address] [place] [address], [id number] , [place] tel:[phone] [facility] Back Pain (chief complaint) Radiculopathy, lumbar regionMyalgia, other sitePostlamine ctomy syndrome, not elsewhere classifiedLong term (current) use of opiate analgesicEncou nter for therapeutic drug level monitoringEnco unter for screening for other disorderPain in right shoulderPain in right knee Jul- 2 Mayra Rapp. [address] [place] [address] [address], [place], [place], [id number] , [place]. tel:[phone] Referring Provider: Caleb Ontiveros, [facility] [address] [facility], [place], [address]. tel:[phone] OFFICE VISIT, [facility], [address] [place] [address], [id number] , [place] tel: [phone] [facility] Back Pain (chief complaint) Postlaminectom y syndrome, not elsewhere classifiedRadi culopathy, lumbar regionMyalgia, other siteLong term (current) use of opiate analgesic - 2 Mayra Rapp. [facility] [facility] [address], [place], [place], [id number] , [place]. tel:[phone] Referring Provider: Too Del Cid, [address] [place] [address], [address]. tel:[phone] OFFICE/OUTPAT IENT VISIT, [facility], [address] [place] [address], [id number] , [place] tel:[phone] [facility] Back Pain (chief complaint) Myalgia, other sitePostlamine ctomy syndrome, not elsewhere classifiedRadi culopathy, lumbar regionLong term (current) use of opiate analgesic 1 Mayra Rpap. [address] [place] [address] [address], [place], [place], [id number] , [place]. tel:[phone] Referring Provider: Too Del Cid, [address] [place] [address], [address]. tel:[phone] OFFICE VISIT, [facility], [address] [place] [address], [id number] , [place] tel:[phone] [facility] low back pain (chief complaint) Radiculopathy, lumbar regionMyalgia, other siteLong term (current) use of opiate analgesicPostl aminectomy syndrome, not elsewhere classified Nov- 1 Mayra Rapp. [address] [facility] [address], [place], [place], [id number] , [place]. tel:[phone] Referring Provider: Too Del Cid, [address] [place] [address], [address]. tel:[phone] [facility], [address] [place] [address], [id number] , [place] tel:[phone] [facility] Postlaminectom y syndrome, not elsewhere classified 1 Mayra Rapp. [address] [place] [address] [address], [place], [place], [id number] , [place]. tel:[phone] Referring Provider: Too Del Cid, [address] [place] [address], [address]. [phone] OFFICE/OUTPAT IENT VISIT, EST [facility], [address] [place] [address], [id number] , [place] tel:[phone] [facility] Widespread pain (chief complaint) Postlaminectom y syndrome, not elsewhere classifiedRadi culopathy, lumbar regionMyalgia, other siteLong term (current) use of opiate analgesic 1 Mayra Rapp. [address] [place] [address] [address], [place], [place], [id number] , [place]. tel:[phone] Referring Provider: Too Del Cid, [address] [place] [address], [address]. tel:[phone] [facility], [address] [place] [address], [id number] , [place] tel:[phone] [facility] No Information 1 Mayra Rapp. [address] [place] [address] [address], [place], [place], [id number] , [place]. tel:[phone] Referring Provider: Too Del Cid, [address] [place] [address], [address]. tel:[phone] OFFICE/OUTPAT IENT VISIT, [facility], [address] [place] [address], [id number] , [place] tel:[phone] [facility] Widespread pain (chief complaint) Postlaminectom y syndrome, not elsewhere classifiedRadi culopathy, lumbar regionMyalgia, other siteLong term (current) use of opiate analgesic 1 Mayra Rapp. [address] [place] [address] [address], [place], [place], [id number] , [place]. [phone] Referring Provider: Too Del Cid, [address] [place] [address], [address]. tel:[phone] OFFICE/OUTPAT IENT VISIT, [facility], [address] [place] [address], [id number] , [place] [phone] [facility] Widespread pain (chief complaint) Postlaminectom y syndrome, not elsewhere classifiedRadi culopathy, lumbar regionMyalgia, other siteLong term (current) use of opiate analgesic 1 Mayra Rapp. [address] [place] [address] [address], [place], [place], [id number] , [place]. [phone] Referring Provider: Too Del Cid, [address] [place] [address], [address]. tel:[phone] [place] [address] [facility] Clinic, [address] [place] [address], [id number] , [place] [phone] [facility] Postlaminectom y syndrome, not elsewhere classified 1 Mayra Rapp. [address] [place] [address] [address], [place], [place], [id number] , [place]. tel:[phone] Referring Provider: Too Del Cid, [address] [place] [address], [address]. tel:[phone] OFFICE/OUTPAT IENT VISIT, [facility], [address] [place] [address], [id number] , [place] tel:[phone] [facility] Widespread pain (chief complaint) Radiculopathy, lumbar regionMyalgia, other siteLong term (current) use of opiate analgesicPostl aminectomy syndrome, not elsewhere classified 1 Mayra Rapp. [address] [place] [address] [address], [place], [id number] , [place]. tel:[phone] Referring Provider: Too Del Cid, [address] [place] [address], [address]. tel:[phone] [facility], [address] [place] [address], [id number] , [place] tel:[phone] [facility] Postlaminectom y syndrome, not elsewhere classified Apr-0 1 Nunez Dionte. [address] [place] [address] [address], [place], [place], [id number] , [place]. tel:[phone] Referring Provider: Too Del Cid, [address] [place] [address], [address]. tel:[phone] OFFICE/OUTPAT IENT VISIT, [facility], [address] [place] [address], [id number] , [place] tel:[phone] [facility] Widespread pain (chief complaint) Postlaminectom y syndrome, not elsewhere classifiedRadi culopathy, lumbar regionMyalgia, other siteLong term (current) use of opiate analgesicEncou nter for screening for other disorder Apr-0 1 Mayra Rapp. [address] [place] [address] [address], [place], [place], [id number] , [place]. tel:[phone] Referring Provider: Too Del Cid, [address] [place] [address], [address]. [phone] OFFICE/OUTPAT IENT VISIT, [facility], [address] [place] [address], [id number] , [place] tel:[phone] [facility] Widespread pain (chief complaint) Postlaminectom y syndrome, not elsewhere classifiedRadi culopathy, lumbar regionMyalgia, other siteLong term (current) use of opiate analgesic Mar-0 1 Mayra Rapp. [address] [place] [address] [address], [place], [place], [id number] , [place]. tel:[phone] Referring Provider: Too Del Cid, [address] [place] [address], [address]. tel:[phone] [facility], [address] [place] [address], [id number] , [place] tel: [phone] [facility] [place] Postlaminectom y syndrome, not elsewhere classified 1 Mayra Rapp. [address] [place] [address] [address], [place], [place], [id number] , [place]. tel:[phone] Referring Provider: Too Del Cid, [address] [place] [address], [address]. tel:[phone] [place] [address] [facility], [address] [place] [address], [id number] , [place] tel:[phone] [facility] [place] No Information 1 Mayra Rapp. [address] [place] [address], [place], [place], [id number] , [place]. tel:[phone] OFFICE/OUTPAT IENT VISIT, EST [facility], [address] [place] [address], [id number] , [place] tel: [phone] [facility] [place] Widespread pain (chief complaint) Postlaminectom y syndrome, not elsewhere classifiedRadi culopathy, lumbar regionMyalgia, other siteLong term (current) use of opiate analgesicPain in right kneeChronic pain syndrome 1 Mayra Rapp. [address] [place] [address] [address], [place], [place], [id number] , [place]. tel:[phone] Referring Provider: Too Del Cid, [address] [place] [address], [address]. tel:[phone] OFFICE VISIT, EST TELEMEDICINE [facility], [address] [place] [address], [id number] , [place] tel: [phone] [facility] [place] Widespread pain (chief complaint) Postlaminectom y syndrome, not elsewhere classifiedRadi culopathy, lumbar regionMyalgia, other siteLong term (current) use of opiate analgesicPain in right kneeChronic pain syndrome 0 Mayra Rapp. [address] [place] [address] [address], [place], [place], [id number] , [place]. tel:[phone] Referring Provider: Too Del Cid, [address] [place] [address], [address]. tel:[phone] [facility], [address] [place] [address], [id number] , [place] tel:[phone] [facility] Postlaminectom y syndrome, not elsewhere classified 0 Mayra Rapp. [address] [place] [address] [address], [place], [place], [id number] , [place]. tel:[phone] Referring Provider: Too Del Cid, [address] [place] [address], [address]. tel:[phone] [facility], [address] [place] [address], [id number] , [place] tel:[phone] [facility] Postlaminectom y syndrome, not elsewhere classified 0 Emiliano Martinez. [address] [place] [address], [id number] , [place]. tel:[phone] Referring Provider: Too Del Cid, [address] [place] [address], [address]. tel:[phone] OFFICE VISIT, EST TELEMEDICINE [facility], [address] [place] [address], [id number] , [place] tel:[phone] [facility] Widespread pain (chief complaint) Radiculopathy, lumbar regionMyalgia, other siteLong term (current) use of opiate analgesicPain in right kneeChronic pain syndromePostla minectomy syndrome, not elsewhere classified 0 Mayra Rapp. [address] [place] [address] [address], [place], [place], [id number] , [place]. tel:[phone] Referring Provider: Too Del Cid, [address] [place] [address], [address]. tel:[phone] OFFICE/OUTPAT IENT VISIT, EST [facility], [address] [place] [address], [id number] , [place] tel:[phone] [facility] [place] Widespread pain (chief complaint) Myalgia, other siteRadiculopa thy, lumbar regionPostlami nectomy syndrome, not elsewhere classifiedLong term (current) use of opiate analgesicPain in right kneeChronic pain syndrome 0 Nunez Dionte. [address] [facility] [facility] [address], [place], [place], [id number] , [place]. tel:[phone] Referring Provider: Too Del Cid, [address] [place] [address], [address]. tel:[phone] [facility], [address] [place] [address], [id number] , [place] tel:[phone] [facility] Postlaminectom y syndrome, not elsewhere classifiedMyal isabel, other site 0 Nyjoe Hays. [address] [facility] [address], [place], [place], [id number] , [place]. tel:[phone] Referring Provider: Too Del Cid, [address] [place] [address], [address]. tel:[phone] [facility], [address] [place] [address], [id number] , [place] tel:[phone] [facility] Radiculopathy, lumbar regionPostlami nectomy syndrome, not elsewhere classified 0 Mayra Rapp. [address] [facility] [address], [place], [place], [id number] , [place]. tel:[phone] Referring Provider: Too Del Cid, [address] [place] [address], [address]. tel:[phone] [facility], [address] [place] [address], [id number] , [place] tel:[phone] [facility] No Information Oct-0 6-202 0 Will Too. [address] [place] [address], [id number] , [place]. [phone] Referring Provider: Too Del Cid, [address] [place] [address], [address]. tel:[phone] OFFICE VISIT, EST TELEMEDICINE [facility], [address] [place] [address], [id number] , [place] tel:[phone] [facility] [place] Widespread pain (chief complaint) Radiculopathy, lumbar regionLong term (current) use of opiate analgesicMyalg ia, other sitePain in right kneeChronic pain syndromePostla minectomy syndrome, not elsewhere classified Sep-2 5-202 0 Mayra Rapp. [facility] [facility] [address], [place], [place], [id number] , [place]. [phone] Referring Provider: Too Del Cid, [address] [place] [address], [address]. tel:[phone] [facility], [address] [place] [address], [id number] , [place] [phone] [facility] Radiculopathy, lumbar region Sep-0 -202 0 Cummings Michelle. [address] [place] [address], [id number] , [place]. [phone] Referring Provider: Too Del Cid, [address] [place] [address], [address]. tel:[phone] [facility], [address] [place] [address], [id number] , [place] tel:[phone] [facility] No Information Sep-0 3-202 0 Cummings Michelle. [address] [place] [address], [id number] , [place]. [phone] Referring Provider: Too Del Cid, [address] [place] [address], [address]. tel:[phone] OFFICE VISIT, EST TELEMEDICINE [facility], [address] [place] [address], [id number] , [place] tel: [phone] [facility] [place] Widespread pain (chief complaint) Postlaminectom y syndrome, not elsewhere classifiedLong term (current) use of opiate analgesicRadic ulopathy, lumbar regionMyalgia, other sitePain in right kneeChronic pain syndrome 0 Nunez Dionte. [address] [place] [address] [address], [place], [place], [id number] , [place]. tel:[phone] Referring Provider: Too Del Cid, [address] [place] [address], [address]. tel:[phone] [facility], [address] [place] [address], [id number] , [place] tel: [phone] [facility] [place] Postlaminectom y syndrome, not elsewhere classified 0 Nunez Dionte. [address] [place] [address] [address], [facility], [place], [id number] , [place]. tel:[phone] OFFICE VISIT, EST TELEMEDICINE [facility], [address] [place] [address], [id number] , [place] tel: [phone] [facility] [place] Widespread pain (chief complaint) Pain in right kneeChronic pain syndromePostla minectomy syndrome, not elsewhere classifiedLong term (current) use of opiate analgesicRadic ulopathy, lumbar regionMyalgia, other site 0 Nunez Dionte. [address] [place] [address] [address], [facility], [place], [id number] , [place]. tel:[phone] Referring Provider: Too Del Cid, [address] [place] [address], [address]. tel:[phone] OFFICE VISIT, EST TELEMEDICINE [facility], [address] [place] [address], [id number] , [place] tel:[phone] Telehealth Widespread pain (chief complaint) Pain in right kneeChronic pain syndromePostla minectomy syndrome, not elsewhere classifiedLong term (current) use of opiate analgesicRadic ulopathy, lumbar regionMyalgia, other site 0 Mayra Rapp. [address] [place] [address] [address], [place], [place], [id number] , [place]. tel:[phone] Referring Provider: Too Del Cid, [address] [place] [address], [address]. tel:[phone] OFFICE VISIT, EST TELEMEDICINE [facility], [address] [place] [address], [id number] , [place] tel:[phone] Telehealth Widespread pain (chief complaint) Postlaminectom y syndrome, not elsewhere classifiedPain in right kneeChronic pain syndromeLong term (current) use of opiate analgesicRadic ulopathy, lumbar regionMyalgia, other site 0 Mayra Rapp. [address] [place] [address] [address], [place], [place], [id number] , [place]. tel:[phone] Referring Provider: Too Del Cid, [address] [place] [address], [address]. tel:[phone] Psych Dx Eval [facility], [address] [place] [address], [id number] , [place] tel:[phone] Telehealth Pain disorder with related psychological factorsPost-tr aumatic stress disorder, unspecified 0 Tess Aguilar. [address] [place] [address], [id number] , [place]. [phone] Referring Provider: Too Del Cid, [address] [place] [address], [address]. tel:[phone] OFFICE VISIT, EST TELEMEDICINE [facility], [address] [place] [address], [id number] , [place] tel:[phone] Telehealth Widespread pain (chief complaint) Chronic pain syndromePain in right kneePostlamine ctomy syndrome, not elsewhere classifiedLong term (current) use of opiate analgesicMyalg ia, other siteRadiculopa thy, lumbar region 0 Mayra Rapp. [address] [place] [address] [address], [place], [place], [id number] , [place]. tel:[phone] Referring Provider: Too Del Cid, [address] [place] [address], [address]. tel:[phone] OFFICE VISIT, EST [facility], [address] [place] [address], [id number] , [place] tel: [phone] Telehealth Widespread pain (chief complaint) Chronic pain syndromePain in right kneePostlamine ctomy syndrome, not elsewhere classifiedLong term (current) use of opiate analgesic Amos-0 2- 0 Nunez Dionte. [address] [place] [address] [address], [place], [place], [id number] , [place]. tel:[phone] Referring Provider: Too Del Cid, [address] [place] [address], [address]. tel:[phone] OFFICE VISIT, [facility], [address] [place] [address], [id number] , [place] tel: [phone] Telehealth Widespread pain (chief complaint) Postlaminectom y syndrome, not elsewhere classifiedPain in right kneeChronic pain syndromeLong term (current) use of opiate analgesic September- 0 Nunez Dionte. [address] [place] [address] [address], [place], [place], [id number] , [place]. tel: [phone] Referring Provider: Too Del Cid, [address] [place] [address], [address]. tel:[phone] OFFICE VISIT, [facility], [address] [place] [address], [id number] , [place] tel: [phone] Telehealth Widespread pain (chief complaint) Postlaminectom y syndrome, not elsewhere classifiedPain in right kneeChronic pain syndromeLong term (current) use of opiate analgesicPain in left hip September-0 0 Nunez Dionte. [address] [place] [address] [address], [place], [place], [id number] , [place]. tel: [phone] OFFICE VISIT, EST [facility], [address] [place] [address], [id number] , [place] tel:[phone] Telehealth Widespread pain (chief complaint) Postlaminectom y syndrome, not elsewhere classifiedPain in right kneeChronic pain syndromeLong term (current) use of opiate analgesic Apr-2 0-202 0 Mayra Rapp. [address] [facility] [address], [place], [place], [id number] , [place]. [phone] Referring Provider: Too Del Cid, [address] [place] [address], [address]. tel:[phone] OFFICE VISIT, EST TELEMEDICINE [facility], [address] [place] [address], [id number] , [place] tel:[phone] Telehealth Widespread pain (chief complaint) Postlaminectom y syndrome, not elsewhere classifiedPain in right kneeChronic pain syndromeLong term (current) use of opiate analgesic Apr-0 2-202 0 Mayra Rapp. [address] [place] [address] [address], [place], [place], [id number] , [place]. tel:[phone] Referring Provider: Too Del Cid, [address] [place] [address], [address]. 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 [address] [place] [address] [address], [place], [place], [id number] , [place]. tel:[phone] Referring Provider: Too Del Cid, [address] [place] [address], [address]. tel:[phone] [facility], [address] [place] [address], [id number] , [place] [phone] [facility] [place] No Information Jul- 0- 0 Mayra Rapp. [address] [place] [address] [address], [facility], [place], [id number] , [place]. tel:[phone] OFFICE/OUTPAT IENT VISIT, [facility], [address] [place], [place], [id number] , [place] tel:[phone] [facility] Widespread pain (chief complaint) Chronic pain syndromePostla minectomy syndrome, not elsewhere classifiedPain in right kneeLong term (current) use of opiate analgesic Jul-0 - 0 Mayra Rapp. [address] [facility] [address], [place], [place], [id number] , [place]. tel: [phone] Referring Provider: Too Del Cid, [address] [place], [address]. tel:[phone] OFFICE/OUTPAT IENT VISIT, [facility], [address] [place], [place], [id number] , [place] tel:[phone] [facility] Widespread pain (chief complaint) Chronic pain syndromePostla minectomy syndrome, not elsewhere classifiedMyal isabel, other sitePain in right kneeEncounter for therapeutic drug level monitoringLong term (current) use of opiate analgesic 2 0 Nunez Dionte. [address] [facility] [address], [place], [place], [id number] , [place]. [phone] Referring Provider: Caleb Ontiveros [facility] [address] [facility], [place], [address]. tel:[phone] Family History Family Member Type Diagnosis Age At Onset No Information Payers Payer name Insurance type Covered republican ID Authoriza tiada(s) [employer] [facility] Replacement [id number] Social History Type Description Quantity Date Captured [...] vaccine ( 1st). Due on due Goal BEVERAGE MANAGER Paperwork. Due on due Goal UDT. Due on due Goal Unhealthy drug u se screening. Due on due Goal AST (SGOT). Due on due Goal OARS. Due on due Goal Update Social Hi story. Due on due Goal Hepatitis C scre ening. Due on due Goal ROOF PANEL HANGER Scanned. Due on due Goal Creatinine. Due on due Goal Tobacco Use. Due on due Goal PHQ-9. Due on du e Goal Height. Due on d ue Goal Weight. Due on d ue Goal FIT-DNA. Due on due Goal ALT (SGPT). Due on due Goal HPV. Due on due Goal Medication Recon ciliation. Due on due Goal FIT. Due on due Goal CT-Colonography. Due on due Goal Height. Due on d ue Goal Order Annual PT. Due on due Goal Tobacco Use. Due on due Goal PHQ-9. Due on du e Goal ROOF PANEL HANGER Scanned. Due on due Goal BEVERAGE MANAGER Paperwork. Due on due Goal Creatinine. [...] due Goal FIT. Due on due Goal Lipid panel. Due on due Goal Update Social Hi story. Due on due Goal Hepatitis C scre ening. Due on due Goal Medication Recon ciliation. Due on due Goal CT-Colonography. Due on due Goal Weight. Due on d ue Goal UDT. Due on due Goal PHQ-9. Due on du e Goal FIT-DNA. Due on due Goal Weight. Due on d ue Goal Creatinine. Due on due Goal BEVERAGE MANAGER Paperwork. Due on due Goal OARS. Due on due Goal ALT (SGPT). Due on due Goal Hepatitis C scre ening. Due on due Goal ROOF PANEL HANGER Scanned. Due on due Goal Order Annual [...] Goal AST (SGOT). Due on due Goal ROOF PANEL HANGER Scanned. Due on due Goal ALT (SGPT). Due on due Goal HPV. Due on [...] e Goal OARS. Due on due Goal BEVERAGE MANAGER Paperwork. Due on due Goal Height. Due [...] ue Goal CT-Colonography. Due on due Goal ROOF PANEL HANGER Scanned. Due on due Goal Zoster vaccine ( 1st). Due on due Goal ALT (SGPT). Due on due Goal BEVERAGE MANAGER Paperwork. Due on due Goal Creatinine. [...] due Goal HPV. Due on due Goal ROOF PANEL HANGER Scanned. Due on due Goal Creatinine. Due [...] Goal PHQ-9. Due on du e Goal BEVERAGE MANAGER Paperwork. Due on due Goal Height. Due [...] due Goal CT-Colonography. Due on due Goal BEVERAGE MANAGER Paperwork. Due on due Goal ALT [...] Goal Weight. Due on d ue Goal ROOF PANEL HANGER Scanned. Due on due Goal Tobacco Use. [...] Order Annual PT. Due on due Goal ROOF PANEL HANGER Scanned. Due on due Goal ALT (SGPT). Due on due Goal Height. Due on d ue Goal OARS. Due on due Goal BEVERAGE MANAGER Paperwork. Due on due Goal UDT. Due on due Goal Hepatitis C scre ening. Due on due Goal Update Social Hi story. Due on due Goal Unhealthy drug u se screening. Due on due Goal ROOF PANEL HANGER Scanned. Due on due Goal Tobacco Use. [...] Order Annual PT. Due on due Goal BEVERAGE MANAGER Paperwork. Due on due Goal HPV. Due on due Goal Zoster vaccine ( 1st). Due on due Goal OARS. Due on due Goal AST (SGOT). Due on due Goal Weight. Due on d ue Goal Height. Due on d ue Goal Medication Recon ciliation. Due on due Goal Height. Due on d ue Goal FIT-DNA. Due on due Goal Weight. Due on d ue Goal BEVERAGE MANAGER Paperwork. Due on due Goal OARS. Due on due Goal ALT (SGPT). Due on due Goal ROOF PANEL HANGER Scanned. Due on due Goal UDT. Due [...] Order Annual PT. Due on due Goal BEVERAGE MANAGER Paperwork. Due on due Goal Creatinine. Due on due Goal ROOF PANEL HANGER Scanned. Due on due Goal OARS. Due [...] due Goal FIT. Due on due Goal ROOF PANEL HANGER Scanned. Due on due Goal Creatinine. Due on due Goal Unhealthy drug u se screening. Due on due Goal OARS. Due on due Goal Order Annual PT. Due on due Goal BEVERAGE MANAGER Paperwork. Due on due Goal AST [...] due Goal HPV. Due on due Goal ROOF PANEL HANGER Scanned. Due on due Goal AST (SGOT). Due on due Goal Lipid panel. Due on due Goal PHQ-9. Due on du e Goal Creatinine. Due on due Goal FIT. Due on due Goal Medication Recon ciliation. Due on due Goal Weight. Due on d ue Goal BEVERAGE MANAGER Paperwork. Due on due Goal Review Allergy L ist. Due on due Goal ALT (SGPT). Due on due Goal OARS. Due on due Goal Zoster vaccine ( 1st). Due on due Goal Tobacco Use. Due on due Goal Height. Due on d ue Goal Hepatitis C scre ening. Due on due Goal ROOF PANEL HANGER Scanned. Due on due Goal Tobacco Use. Due on due Goal HPV. Due on due Goal ALT (SGPT). Due [...] due Goal CT-Colonography. Due on due Goal BEVERAGE MANAGER Paperwork. Due on due Goal OARS. Due on due Goal UDT. Due on due Goal BEVERAGE MANAGER Paperwork. Due on due Goal FIT-DNA. Due on due Goal Lipid panel. Due on due Goal Weight. Due on d ue Goal UDT. Due on due Goal ROOF PANEL HANGER Scanned. Due on due Goal OARS. Due [...] vaccine ( 1st). Due on due Goal BEVERAGE MANAGER Paperwork. Due on due Goal Order Annual PT. Due on due Goal ROOF PANEL HANGER Scanned. Due on due Goal Creatinine. Due [...] due Goal FIT. Due on due Goal ROOF PANEL HANGER Scanned. Due on due Goal PHQ-9. Due [...] due Goal OARS. Due on due Goal BEVERAGE MANAGER Paperwork. Due on due Goal Zoster vaccine [...] due Goal CT-Colonography. Due on due Goal ROOF PANEL HANGER Scanned. Due on due Goal FIT-DNA. Due on due Goal Tobacco Use. Due on due Goal Creatinine. Due on due Goal Review Allergy L ist. Due on due Goal Lipid panel. Due on due Goal BEVERAGE MANAGER Paperwork. Due on due Goal UDT. Due on due Goal PHQ-9. Due on du e Goal ALT (SGPT). Due on due Goal Weight. Due on d ue Goal Order Annual PT. Due on due Goal ROOF PANEL HANGER Scanned. Due on due Goal Medication Recon ciliation. Due on due Goal OARS. Due on due Goal Tobacco Use. Due on due Goal Creatinine. Due on due Goal BEVERAGE MANAGER Paperwork. Due on due Goal Review Allergy [...] Social Hi story. Due on due Goal ROOF PANEL HANGER Scanned. Due on due Goal Medication Recon ciliation. Due on due Goal UDT. Due on due Goal Creatinine. Due on due Goal PHQ-9. Due on du e Goal BEVERAGE MANAGER Paperwork. Due on due Goal ALT (SGPT). Due on due Goal AST (SGOT). Due on due Goal BEVERAGE MANAGER Paperwork. Due on due Goal Tobacco Use. Due on due Goal PHQ-9. Due on du e Goal ALT (SGPT). Due on due Goal Update Social Hi story. Due on due Goal OARS. Due on due Goal Order Annual PT. Due on due Goal Creatinine. Due on due Goal AST (SGOT). Due on due Goal ROOF PANEL HANGER Scanned. Due on due Goal Review Allergy L ist. Due on due Goal Height. Due on d ue Goal UDT. Due on due Goal Weight. Due on d ue Goal Medication Recon ciliation. Due on due Goal Creatinine. Due on due Goal ROOF PANEL HANGER Scanned. Due on due Goal Order Annual PT. Due on due Goal ALT (SGPT). Due on due Goal Update Social Hi story. Due on due Goal Review Allergy L ist. Due on due Goal AST (SGOT). Due on due Goal UDT. Due on due Goal Weight. Due on d ue Goal OARS. Due on due Goal Medication Recon ciliation. Due on due Goal BEVERAGE MANAGER Paperwork. Due on due Goal PHQ-9. Due on du e Goal Height. Due on d ue Goal Tobacco Use. Due on due Goal Weight. Due on d ue Goal ROOF PANEL HANGER Scanned. Due on due Goal PHQ-9. Due on du e Goal BEVERAGE MANAGER Paperwork. Due on due Goal Medication Recon [...] due Goal Creatinine. Due on due Goal ROOF PANEL HANGER Scanned. Due on due Goal Order Annual PT. Due on due Goal BEVERAGE MANAGER Paperwork. Due on due Goal UDT. [...] due Goal OARS. Due on due Goal BEVERAGE MANAGER Paperwork. Due on due Goal ROOF PANEL HANGER Scanned. Due on due Goal Review Allergy L ist. Due on due Goal Height. Due on d ue Goal Tobacco Use. Due on due Goal Weight. Due on d ue Goal ALT (SGPT). Due on due Goal Medication Recon ciliation. Due on due Goal PHQ-9. Due on du e Goal Update Social Hi story. Due on due Goal Creatinine. Due on due Goal Weight. Due on d ue Goal UDT. Due on due Goal AST (SGOT). Due on due Goal Order Annual PT. Due on due Goal PHQ-9. Due on du e Goal BEVERAGE MANAGER Paperwork. Due on due Goal Review Allergy L ist. Due on due Goal Medication Recon ciliation. Due on due Goal Update Social Hi story. Due on due Goal ALT (SGPT). Due on due Goal Tobacco Use. Due on due Goal Height. Due on d ue Goal ROOF PANEL HANGER Scanned. Due on due Goal OARS. Due on due Goal AST (SGOT). Due on due Goal Height. Due on d ue Goal PHQ-9. Due on du e Goal Order Annual PT. Due on due Goal Medication Recon ciliation. Due on due Goal Tobacco Use. Due on due Goal BEVERAGE MANAGER Paperwork. Due on due Goal Review Allergy L ist. Due on due Goal Creatinine. Due on due Goal ALT (SGPT). Due on due Goal Update Social Hi story. Due on due Goal UDT. Due on due Goal OARS. Due on due Goal Weight. Due on d ue Goal ROOF PANEL HANGER Scanned. Due on due Goal Order Annual PT. Due on due Goal ALT (SGPT). Due on due Goal Tobacco Use. Due on due Goal PHQ-9. Due on du e Goal Update Social Hi story. Due on due Goal BEVERAGE MANAGER Paperwork. Due on due Goal AST (SGOT). Due on due Goal Medication Recon ciliation. Due on due Goal Height. Due on d ue Goal Weight. Due on d ue Goal Review Allergy L ist. Due on due Goal ROOF PANEL HANGER Scanned. Due on due Goal Creatinine. Due on due Goal OARS. Due on due Goal UDT. Due on due Goal Tobacco cessation counseling completed Referral Ordered: Azael Regan -Allopathic & Osteopathic Physicians : Family Medicine (related to Radiculopathy, lumbar region) ordered Referral Ordered: [facility] -Family Medicine (related to Radiculopathy, lumbar region) ordered Referral Referred To: [facility] [address] [place], [address] [phone] Ordered: Referrals: Family Medicine. [facility] ordered Referral Ordered: X-RAY EXAM OF HIPS LT hip ordered Referral Ordered: Azael Regan -Allopathic & Osteopathic Physicians : Family Medicine (related to Postlaminectomy syndrome, not elsewhere classified) ordered Referral Referred To: Azael Regan [facility]
[address] [place], [phone] Ordered: Referrals: Allopathic & Osteopathic Physicians : [...] assessment:Difficulty reaching, lifting, carrying, pushing, pulling, and manager of training and development is hopeful that the SCS device will [...] discomfort. Patient was meeting with Jose from [employer] today and expressed her frustration with charging. [...] by her living facility. No other concerns. Comments: Brandee is here for follow up [...] by pain meds/drugs and rest. Back Pain Severity level i s 9. [...] therapy, stretching, rest, sitting and changing positions. Back Pain Severity level i s 7. Duration: chronic. The problem is worsening. It occurs persistently. Location of pain is lower back and neck. The client describes the pain as an ache, burning and sharp. Symptoms are aggravated by bending, lying/rest, housework and movement. Symptoms are relieved by heat, ice, lying down, pain meds/drugs, rest and chiropractic. Comments: Brandee is here today virtually for [...] No other concerns. Comments: Brandee is here for follow-up and medication management. Her current medication regimen offers greater than 50% pain relief. Her medications are currently managed by her living facility.S/p right TKA on 07/09/[address] Camara from [facility]. ROOF PANEL HANGER was reviewed and shows pt was rx'ed 2mg Dilaudid max 7/day for post op pain. She was rx'ed #49tabs on 08/23/21, #49tabs on 08/19/21 and #49 tabs on 08/08/21. Her chronic dose at [facility] is #5tabs a day, patient [...] stretching, rest, changing positions, chiropractor and walking. Back Pain (comments) Brandee is he re for follow-up and medication management. Her current medication regimen offers greater than 50% pain relief. Her medications are currently managed by her living facility.Her chronic pain today is worse. Notes that her right TKA was rescheduled for 07/09/[address] Camara from [facility]. Surgeon will manage post-op pain. Lower [...] for [address] Lino or from [facility]. It was canceled due to no hospital beds available with [facility].Expresses her ongoing frustration regarding her lumbar Medtronic [...] pain meds/drugs and rest. low back pain Severity level i s [...] scheduled R TKA with Dr. Camara through [facility]. Discussed post-op pain management. Also continues [...] order. She looks forward to reprogramming with [employer] today as she has had questions about [...] Pain has been worse. She went to [facility] two weeks ago with atrial fibrillation. She completed work-up and was put on warfarin. She met with her orthopedist at [facility] regarding her R knee pain. Orthopedist recommended [...] month due to visiting her daughter in [place]. She realized she can not walk long distances with her walker. Had a injection scheduled with [facility] but [employer] [facility] could not provide her the ride from [place]. She is excited about the recently approved [...] trial.She had a recent lumbar MRI with [facility] and per patient the imaging showed herniation and disc slippage at multiple levels. She said [facility] recommend a injection. With previous injections, she explains having a reaction to the procedure. She scheduled the injection on 12/[address] estrella at [facility].Reports current medication regimen provides at least [...] upcoming appt. with a back surgeon through [facility] next week to be evaluated. 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 States that she has arrythmia although [...] Medtronic SCS trial. Reports she presented to [facility] and dropped off her psych [...] No further questions or concerns. Widespread pain (comments) Brandee presents for follow [...] (urinary). Widespread pain Severity level i s moderate-severe. [...] and she is also unable to attend healthcare liaison which she significantly benefits from. She still [...] her medication. Medications are managed by [facility]. Denies side effects.Patient is not accompanied today [...] OV. She has started physical therapy at [facility] in [facility] and intends on continuing twice weekly. She would like to restart oxycodone therapy today which has provided good relief in the past. Inquires about prescription for muscle relaxant which she recalls providing her with some pain relief previously as well.Patient is not accompanied today and has no further questions or other concerns. Widespread pain (comments) Brandee is here for [...] been recommended for possible R TKA at [facility], but no date has been scheduled. States her pain causes her lots of anxiety because she has tried many treatments without significant benefit. She is currently enrolled in PT at [facility] in [facility]. She also regularly attends the chiropractor. TENS [...] and other recommended therapies and would like [facility] to assume management of pain care. Widespread pain Severity level i s 8. [...] include diarrhea, dyspnea, fever and incontinence (urinary). Functional Status Date Functional Assessmen t No Information Instructions Date Instruction Additional Infor mation No Information Assessments Type Assessment Date assessment Pain in right knee impression S/p right TKA on 12/[address] Camara from [facility]. Has been participating in PT with good benefit. Pain has been worse since [facility] assessment Pain in left ankle and joints of left foot impression Worsening pain in th e left ankle and is considering an ankle fusion assessment Radiculopathy, lumbar region Jul impression Lower back pain with radiation into her BLE, continues to worsen since [facility] assessment Myalgia, other site impression TPIs in the past wit hout benefit. PO muscle relaxers provide moderate relief assessment Postlaminectomy syndrome, not el sewhere classified impression Hx of L4-S1 fusion. She has an SCS implant but may be interested in an explant assessment half-way (current) use of opiat e analgesic impression The medication relie ves at least 60% of the pain, does not cause significant side effects, increases the patient's daily activity level. Medication managed by facility.Most of today's visit was spent discussing the patient's recent discharge from the clinic d/t her inappropriate behavior and language used toward staff. Patient expresses frustrations with termination. BEVERAGE MANAGER terminated.Most recent UDT results reviewed and appropriate. Not appropriate to continue opioid therapy d/t issues with inappropriate behavior. Current MME 30 Mental Status Date Cognitive Assessment Orientation - Lincoln ed to time, place, person, situation. Patient Care Teams Name Effective Dates (start - stop) Status Members No Information
--- NOTE | 2022-12-19 09:15 | CRLHL7_ITS ---
For Patients: As a result of the Century Cures Act, medical imaging exams and procedure reports are released immediately into your electronic medical record. You may view this report before your referring provider. If you have questions, please contact your health care provider. INDICATION: Low back pain. TECHNIQUE: Noncontrast MRI of the lumbar spine is performed in the usual fashion. No comparisons. FINDINGS: Postoperative changes compatible with an anterior/posterior L3-S1 fusion with solid appearing anterior bony fusion. There is degenerative retrolisthesis of L2 on 3 a distance of approximately 8 mm. The overall stature, alignment and intrinsic marrow signal within the remainder of the lumbar spine is within normal limits. Conus is within normal limits. 3.3 cm the cystic lesion in the inferior pole right kidney likely representing a simple renal cyst. T11-T12, T12-L1: Mild posterior disc bulge results in no significant central canal or foraminal narrowing. L1-2: Minor circumferential disk bulge results in no significant central canal or foraminal narrowing. L2-3: Degenerative retrolisthesis with moderate bilateral facet arthropathy results in moderate to severe central canal narrowing with severe bilateral foraminal narrowing and compression of the exiting L2 nerve roots. L3-4, L4-5: Central canal and neural foramina are patent. L5-S1: Mild endplate osteophyte and bilateral facet arthropathy results in mild bilateral foraminal narrowing with no central canal narrowing. Evidence of fatty infiltration of the posterior paraspinous musculature as well as the left gluteal muscle that may be due to denervation or disuse atrophy. IMPRESSION: 1. Solid appearing anterior/posterior L3-S1 fusion. 2. Degenerate retrolisthesis L2 on 3 resulting moderate to severe central canal narrowing with severe bilateral foraminal narrowing and compression of the exiting L2 nerve roots. 3. Milder degenerative changes within the remainder of the lumbar spine as outlined above. Dictated by Lance Samaniego MD @ 12/20/2022 3:54:42 PM (Electronically Signed)
== END 2022-12-19 09:03 | disposition home or self-care (01) ==
LOC: MRI 09:03
PROVIDERS: PCP Internal Medicine; Visit Provider Orthopaedic Surgery
DX: M54.50 Low back pain, unspecified (principal); M51.36 Other intervertebral disc degeneration, lumbar region
CPT/HCPCS: 72148

== ENCOUNTER 2023-01-05 10:06 | Outpatient (CLI) | payer OTHER, SELFPAY ==
--- OUTSIDE RECORDS SUMMARY | 2023-01-05 10:08 | XMS_ITS | Continuity of Care Document ---
Author Name Unknown Organization [facility] Address [address] [place] [address] Phone Care Team Providers Care Logistics/Shipper Name Role Phone Odalys BOLES, Homar Unavailable [...] C, [address], [place], [place], [id number], [place] tel:[phone] [facility] No Information 8 Odalys Graf. [facility], [address] [place] [address] [address], [place], [place], [id number] , [place]. tel:[phone] [facility], [address], [place], [id number], [place] tel:[phone] [facility] No Information 8 Odalys Graf. [facility], [address] [place] [address] [address], [place], [address] , [place]. tel:[phone] [facility], [address], [place], [id number], [place] tel:[phone] [facility] No Information 8 Rodrick Pop. [facility], [address] [place] [address] [address], [place], [address] , [place]. tel:[phone] Referring Provider: Homar Morrow, [facility] [address] [place] [address] [address], [place], [address] . tel:[phone] [facility], [address], [place], [address], [place] tel:[phone] [facility] No Information 6 8 Odalys Graf. [facility], [address], [place], [place], [address] , [place]. [phone] Referring Provider: Homar Morrow, [facility] [address], [place], [address] . tel:[phone] Office/Outpat ient Visit,Est, Mod [facility], [address], [place], [place], [address], [place] tel:[phone] [facility] Spinal stenosis, lumbar region 5 7 Odalys Graf. [facility], [address], [place], [place], [address] , [place]. [phone] Referring Provider: Homar Morrow, [facility] [address], [place], [address] . tel:[phone] [facility], [address], [place], [address], [place] tel:[phone] [facility] Spinal stenosis, lumbar region 0-201 6 Odalys Graf. [facility], [address], [place], [address] , [place]. [phone] Referring Provider: Homar Morrow, [facility] [address], [place], [address] . tel:[phone] [facility], [address], [place], [place], [address], [place] tel:[phone] [facility] Arthrodes[facility] status 1-201 6 Odalys Graf. [facility], [address], [place], [address] , [place]. [phone] [facility], [address], [place], [id number], [place] tel:[phone] [facility] No Information Sep-2 6 Odalys Rowlandin. [facility], [address], [place], [id number] , [place]. tel:[phone] Referring Provider: Homar Morrow, [facility] [address], [place], [address] . tel:[phone] Family History Family Member Type Diagnosis Age At Onset No Information Payers Payer name Insurance type Covered constitution party ID Authoreneida aaron(s) Medicare [id number] Social History Type Description Quantity Date Captured [...]
--- OUTSIDE RECORDS SUMMARY | 2023-01-05 10:09 | XMS_ITS | Continuity of Care Document ---
Author Name Unknown Organization [facility] Address [address] [place] [address] Care Team Providers Care Retail Sales Associate Seasonal Name Role Phone Simba Lowry CRNA Unavailable Unavailable Procedures Procedure Date ANESTH, HEAD/NECK/PTRUNK ANESTH PERC IMG TX SP PROC Advance Directives Directive Yes / No Effective Date File Name No Information Encounters Encounter Description Practice Location Reason(s) For Visit Diagnoses Date Provider Providers Copied on Encounter [facility], [address] [place] [address], [id number], [facility] No Information Alen Cottrell. [address] [place] [address], [id number], . tel:[phone] Referring Provider: Michelle Cummings, [address] [place] [address], [address] . tel:[phone] [facility], [address] [place] [address], [id number], [facility] No Information Asad Ramirez. [address], [place], [place], [id number], . tel:[phone] Referring Provider: Too Del Cid, [address] [place], [address] . tel:[phone] Family History Family Member Type Diagnosis Age At Onset No Information Payers Payer name Insurance type Covered democrat ID Authoriza tion(s) No Information Social History [...]
--- OUTSIDE RECORDS SUMMARY | 2023-01-05 10:09 | XMS_ITS | Continuity of Care Document ---
Author Name Unknown Organization [facility] Address [address] [place] [address] Care Team Providers Care Vamper Name Role Phone [facility] Unavailable Unav ailable Procedures Procedure Date [...] Diagnoses Date Provider Providers Copied on Encounter [facility], [address] [place] [address], [id number], [facility] No Information [facility]. [address] [place], [place], [id number], [place]. tel:[phone] Referring Provider: Michelle Cummings, [address] [place], [address]. tel:[phone] [facility], [address] [place], [place], [id number], [facility] No Information [facility]. [address] [facility] [place], [place], [id number], [place]. tel:[phone] Referring Provider: Too Del Cid, [address] [place], [address]. tel:[phone] [facility], [address] [place], [place], [id number], [place] [facility] No Information [facility]. [address] [place], [place], [id number], . tel:[phone] Referring Provider: Michelle Cummings, [address] [place], [address]. tel:[phone] Family History Family Member Type Diagnosis Age [...]
== END 2023-01-05 10:07 | disposition home or self-care (01) ==
LOC: NFLDREF 10:07
PROVIDERS: PCP Internal Medicine; Visit Provider Internal Medicine
DX: R10.9 Unspecified abdominal pain (principal); R53.83 Other fatigue; I10 Essential (primary) hypertension; E11.9 Type 2 diabetes mellitus without complications; Z79.01 Long term (current) use of anticoagulants
CPT/HCPCS: 84443; 85610

== ENCOUNTER 2023-01-08 07:03 | Outpatient (CLI) | payer OTHER, SELFPAY ==
--- OUTSIDE RECORDS SUMMARY | 2023-01-12 09:33 | XMS_ITS | Continuity of Care Document ---
Author Name Unknown Organization [facility] Address [address] [place] [id number] Care Team Providers Care Split [facility]ather Department Supervisor Name Role Phone [facility] [...] Diagnoses Date Provider Providers Copied on Encounter [facility], [address] [place] [address], [id number], [facility] No Information [facility]. [address] [place], [place], [id number], [place]. tel:[phone] Referring Provider: Michelle Cummings, [address] [place], [address]. tel:[phone] [facility], [address], [place], [id number], [facility] No Information [facility]. [address] [facility] [place], [place], [id number], [place]. tel:[phone] Referring Provider: Too Del Cid, [address] [place], [address]. tel:[phone] [facility] [place], [address], [place], [id number], [place] [facility] [place] No Information [facility]. [address], [place], [id number], . tel:[phone] Referring Provider: Michelle Cummings, [address] [place], [address]. tel:[phone] Family History Family Member Type Diagnosis Age [...]
--- OUTSIDE RECORDS SUMMARY | 2023-01-12 09:33 | XMS_ITS | Continuity of Care Document ---
Author Name Unknown Organization [facility] Address [address] [place] [id number] Care Team Providers Care Prescription Benefit Specialist Name Role Phone Simba Lowry CRNA Unavailable Unavailable Procedures Procedure Date ANESTH, HEAD/NECK/PTRUNK ANESTH PERC IMG TX SP PROC Advance Directives Directive Yes / No Effective Date File Name No Information Encounters Encounter Description Practice Location Reason(s) For Visit Diagnoses Date Provider Providers Copied on Encounter [facility], [address] [place] [address], [id number], [facility] No Information Alen Cottrell. [address] [place] [address], [id number], . tel:[phone] Referring Provider: Michelle Cummings, [address] [place] [address], [id number] . tel:[phone] [facility], [address] [place] [address], [id number], [facility] No Information Asad Ramirez. [address], [place], [place], [id number], . tel:[phone] Referring Provider: Too Del Cid, [address] [place], [address] . tel:[phone] Family History Family Member Type Diagnosis Age At Onset No Information Payers Payer name Insurance type Covered republican ID Authoriza tion(s) No Information Social History [...]
--- OUTSIDE RECORDS SUMMARY | 2023-01-12 09:33 | XMS_ITS | Continuity of Care Document ---
Author Name Unknown Organization [facility] Address [address] [place] [address] Phone Care Team Providers Care Rack Maker Name Role Phone Odalys BOLES, Homar Unavailable [...] C, [address], [place], [place], [id number], [place] tel:[phone] [facility] No Information 8 Odalys Graf. [facility], [address] [place] [address] [address], [place], [place], [id number] , [place]. tel:[phone] [facility], [address], [place], [place], [id number], [place] tel:[phone] [facility] No Information 8 Odalys Graf. [facility], [address] [place] [address] [address], [place], [place], [id number] , [place]. tel:[phone] [facility], [address], [place], [id number], [place] tel:[phone] [facility] No Information 8 Rodrick Pop. [facility], [address] [place] [address] [address], [place], [place], [id number] , [place]. tel:[phone] Referring Provider: Homar Morrow, [facility] [address] [place] [address] [address], [place], [address] . tel:[phone] [facility], [address], [place], [id number], [place] tel:[phone] [facility] No Information 6 8 Odalys Graf. [facility], [address], [place], [place], [id number] , [place]. [phone] Referring Provider: Homar Morrow, [facility] [address], [place], [address] . tel:[phone] Office/Outpat ient Visit,Est, Mod [facility], [address], [place], [id number], [place] tel:[phone] [facility] Spinal stenosis, lumbar region 5 7 Odalys Graf. [facility], [address], [place], [place], [id number] , [place]. [phone] Referring Provider: Homar Morrow, [facility] [address], [place], [address] . tel:[phone] [facility], [address], [place], [id number], [place] tel:[phone] [facility] Spinal stenosis, lumbar region 0-201 6 Odalys Graf. [facility], [address], [place], [id number] , [place]. [phone] Referring Provider: Homar Morrow, [facility] [address], [place], [address] . tel:[phone] [facility], [address], [place], [id number], [place] tel:[phone] [facility] Arthrodesis status 1-201 6 Odalys Graf. [facility], [address], [place], [id number] , [place]. [phone] [facility], [address], [place], [id number], [place] tel:[phone] [facility] No Information Sep-2 6 Odalys [place]. [facility], [address], [place], [id number] , [place]. tel:[phone] Referring Provider: Homar Morrow, [facility] [address], [place], [address] . tel:[phone] Family History Family Member Type Diagnosis Age At Onset No Information Payers Payer name Insurance type Covered democrat ID Authoreneida aaron(s) Medicare [id number] Social History Type Description Quantity Date Captured [...]
--- OUTSIDE RECORDS SUMMARY | 2023-01-12 09:34 | XMS_ITS | Continuity of Care Document ---
Author Name Unknown Organization [facility] rajiv Address [address] [place] [address] Phone Care Team Providers Care School Psychologist Name Role Phone Dionte Granados Unavailable Unavailable [...] be prescribed during an appointment - Active clindamycin 1 % lotion Amos-14-2022 - Active ketoconazole 2 % shampoo WASH TO AFFECTED AREA ON SCALP AND CHEST 3 TIMES WEEKLY LATHER AND LET SIT FOR SEVERAL MINUTES BEFORE RINSING - Active triamcinolone acetonide 0.1 % topical cream APPLY THIN LAYER TO ITCHY AREA OF SKIN 1-2X DAILY FOR UP TO 2 WEEKS AT A TIME , TAKE 2 WEEKS OF THEN REPEAT NEEDED FOR FLARES - Active sumatriptan 50 mg tablet One [...] HCL (unknown strength) Not Available - Active sotalol 120 mg tablet take 1 tablet by oral route 2 times every day 120 MG - Active senna 8.6 mg capsule take 1 capsule by oral route 2 times every day 8.6 MG - Active ammonium lactate 12 % topical cream - Active nystatin 100,000 unit/gram topical cream apply by topical route 3 times every day to the affected area(s) Not Available - Active prazosin 1 mg capsule take 2 capsule by oral route every day 2 MG - Active loratadine 10 mg tablet [...] Dry Mouth Oral Rinse mouthwash - Active Senexon-S 8.6 mg-50 mg tablet take 2 tablet by oral route 2 times every day 2 tablet - Active WARFARIN SODIUM (unknown strength) take 1 tablet by oral route every day Not Available - Active chlorhexidine gluconate 0.12 % mouthwash place 15 milliliter by mucous membrane route 2 times every day in the mouth (after meals), swish in mouth for 30 seconds then spit out 15.00 milliliter - Active Banophen 25 mg capsule take 2 capsule by oral route every 4 - 6 hours as needed as needed 50 MG - Active Flonase Allergy Relief 50 mcg/actuation nasal spray,suspension spray 1 - 2 spray by intranasal route every day in each nostril as needed 50-100 MCG - Active Nystop 100,000 unit/gram topical powder apply by topical route 2 times every day to the affected area(s) as needed 0.00 - Active Milk of Magnesia 400 mg/5 mL oral suspension take 30 milliliter by oral route every day as needed, followed by a full glass (8 oz) of liquid 30.00 milliliter - Active sertraline 100 mg tablet take [...] tablets per 24hrs 1000 MG - Active ipratropium 0.5 mg-albuterol 3 mg (2.5 mg base)/3 mL nebulization soln inhale 3 milliliter by nebulization route 4 times every day 3.00 milliliter - Active Calci-Mix 500 mg calcium (1,250 mg) capsule - Active azelastine 137 mcg (0.1 %) nasal spray aerosol spray 2 spray by intranasal route 2 times every day in each nostril - Active atorvastatin 40 mg tablet take 1 tablet by oral route every day 40 MG - Active pantoprazole 40 mg tablet,delayed release take 1 tablet by oral route every day 40 MG - Active Lyrica 100 mg capsule take 1 capsule by oral route 3 times every day 100 MG - Active Dilaudid 2 mg tablet take [...] eval q3mo opiod tx [facility] Post Op [place] No Charge For Visit Per Prov IMPLANT [...] OFFICE VISIT, EST TELEMEDICINE 20 OFFICE VISIT, [facility] TELEMEDICINE 20 Foll-up eval q3mo opiod tx OFFICE/OUTPATIENT VISIT, EST Drug Urine Toxology With Chromatography SCS Trial Procedure Ordered INJ TRIGGER POINT, 1/2 MUSCL OFFICE/OUTPATIENT VISIT, NEW Advance Directives Directive Yes / No Effective Date File Name No Information Encounters Encounter Description Practice Location Reason(s) For Visit Diagnoses Date Provider Providers Copied on Encounter OFFICE VISIT, [facility], [address] [place] [address], [place], [id number] , [place] tel:[phone] [facility] B[facility] Widespread pain (chief complaint) Pain in right kneePain in left ankle and joints of left footRadiculopa thy, lumbar regionMyalgia, other sitePostlamine ctomy syndrome, not elsewhere classifiedLong term (current) use of opiate analgesic 3 Mayra Rapp. [address], [place], [place], [id number] , [place]. tel:[phone] anticoagulant prescriber: Aleksey Smith [address], [address]. tel:[phone] Provider: Too Del Cid, [address] [place], [address]. tel:[phone] OFFICE VISIT, [facility], [address], [place], [id number] , [place] tel:[phone] [facility] Widespread pain (chief complaint) Postlaminectom y syndrome, not elsewhere classifiedRadi culopathy, lumbar regionMyalgia, other sitePain in left ankle and joints of left footPain in right kneeLong term (current) use of opiate analgesic 3 Shay Morales. [address] [place] [address], [place], [id number] , [place]. tel:[phone] anticoagulant prescriber: Aleksey Smith [address] [place], [address]. tel:[phone] [facility], [address] [place] [address], [id number] , [place] tel:[phone] [facility] Charenton pain (chief complaint) Postlaminectom y syndrome, not elsewhere classified 2 Indu aDlal. [address] [place], [place], [id number] , [place]. tel:[phone] Psych Dx Eval [facility], [address] [place] [address], [id number] , [place] tel: [phone] Telehealth Pain disorder with related psychological factorsPost-tr aumatic stress disorder, unspecified 2 Tess Cristiano Peg. [address] [place] [address], [id number] , [place]. tel:[phone] Referring Provider: Too Del Cid, [address] [place] [address], [address]. tel:[phone] Psych Dx Eval [facility], [address] [place] [address], [id number] , [place] tel:[phone] Telehealth Pain disorder with related psychological factorsAnxiety disorder 2 Tess Cristiano Peg. [address] [place] [address], [id number] , [place]. tel:[phone] OFFICE/OUTPAT IENT VISIT, [facility], [address] [place] [address], [id number] , [place] tel:[phone] [facility] [place] Widespread pain (chief complaint) Pain in right hipPain in right kneePain in left ankle and joints of left footRadiculopa thy, lumbar regionPostlami nectomy syndrome, not elsewhere classifiedLong term (current) use of opiate analgesicMyalg ia, other site 2 Heriberto Gage. [address] [place] [address], [id number] , [place]. tel:[phone] anticoagulant prescriber: Aleksey Smith, [address], [address]. tel:[phone] Provider: Too Del Cid, [address] [place] [address], [address]. tel:[phone] OFFICE VISIT, EST TELEMEDICINE [facility], [address] [place] [address], [id number] , [place] tel:[phone] [facility] Back Pain (chief complaint) Pain in right kneePain in left ankle and joints of left footRadiculopa thy, lumbar regionMyalgia, other sitePostlamine ctomy syndrome, not elsewhere classifiedLong term (current) use of opiate analgesicPain in right hip 2 Mayra Rapp. [address] [place] [address] Rd [address], [place], [place], [id number] , [place]. tel:[phone] anticoagulant prescriber: Aleksey Smith, [address], [address]. tel:[phone] OFFICE VISIT, EST TELEMEDICINE [facility], [address] [place] [address], [id number] , [place] tel:[phone] [facility] (chief complaint) Pain in right kneePain in left ankle and joints of left footRadiculopa thy, lumbar regionMyalgia, other sitePostlamine ctomy syndrome, not elsewhere classifiedLong term (current) use of opiate analgesic 2 Nunez Dionte. [address] [place] [address] [address], [place], [place], [id number] , [place]. tel:[phone] anticoagulant prescriber: Aleksey Smith [address], [address]. tel:[phone] OFFICE VISIT, EST TELEMEDICINE [facility], [address] [place] [address], [id number] , [place] tel:[phone] [facility] Back Pain (chief complaint) Pain in right kneePain in left ankle and joints of left footRadiculopa thy, lumbar regionMyalgia, other sitePostlamine ctomy syndrome, not elsewhere classifiedLong term (current) use of opiate analgesic 2 Mayra Rapp. [address] [place] [address] [address], [place], [id number] , [place]. tel:[phone] Referring Provider: Too Del Cid, [address] [place] [address], [address]. tel:[phone] OFFICE/OUTPAT IENT VISIT, [facility], [address] [place] [address], [id number] , [place] tel:[phone] [facility] Back Pain (chief complaint) Pain in right kneePain in right ankle and joints of right footPain in left ankle and joints of left footRadiculopa thy, lumbar regionMyalgia, other sitePostlamine ctomy syndrome, not elsewhere classifiedLong term (current) use of opiate analgesic 2 Mayra Rapp. [address] [place] [address] [address], [place], [id number] , [place]. [phone] Referring Provider: Too Del Cid, [address] [place] [address], [address]. tel:[phone] [facility], [address] [place] [address], [id number] , [place] tel:[phone] [facility] No Information 2 Will Too. [address] [place] [address], [id number] , [place]. [phone] OFFICE/OUTPAT IENT VISIT, [facility], [address] [place] [address], [id number] , [place] tel:[phone] [facility] Back Pain (chief complaint) Pain in right shoulderPain in right kneePain in right ankle and joints of right footPain in left ankle and joints of left footRadiculopa thy, lumbar regionMyalgia, other sitePostlamine ctomy syndrome, not elsewhere classifiedLong term (current) use of opiate analgesic 2 Mayra Rapp. [address] [place] [address] [address], [place], [id number] , [place]. [phone] Referring Provider: Too Del Cid, [address] [place] [address], [address]. tel:[phone] OFFICE/OUTPAT IENT VISIT, [facility], [address] [place] [address], [id number] , [place] tel:[phone] [facility] (chief complaint) Chronic migraine without aura, intractable, without status migrainosusPai n in right shoulderPain in right kneePain in right ankle and joints of right footPain in left ankle and joints of left footRadiculopa thy, lumbar regionMyalgia, other sitePostlamine ctomy syndrome, not elsewhere classifiedLong term (current) use of opiate analgesicSpond ylosis without myelopathy or radiculopathy, lumbar region 2 Mayra Rapp. [address] [place] [address] [address], [place], [id number] , [place]. tel:[phone] Referring Provider: Too Del Cid, [address] [place] [address], [address]. tel:[phone] OFFICE VISIT, [facility], [address] [place] [address], [id number] , [place] [phone] [facility] (chief complaint) Chronic migraine without aura, intractable, without status migrainosusPai n in right shoulderPain in right kneeRadiculopa thy, lumbar regionMyalgia, other sitePostlamine ctomy syndrome, not elsewhere classifiedLong term (current) use of opiate analgesicPain in left ankle and joints of left footPain in right ankle and joints of right foot 2 Mayra Rapp. [address] [place] [address] [address], [place], [id number] , [place]. tel:[phone] OFFICE/OUTPAT IENT VISIT, [facility], [address] [place] [address], [id number] , [place] [phone] [facility] Back Pain (chief complaint) Myalgia, other sitePain in right shoulderPain in right kneeRadiculopa thy, lumbar regionPostlami nectomy syndrome, not elsewhere classifiedLong term (current) use of opiate analgesicChron ic migraine without aura, intractable, without status migrainosus Aug- 2 Mayra Rapp. [address] [place] [address] [address], [place], [place], [id number] , [place]. tel:[phone] Referring Provider: Too Del Cid, [address] [place] [address], [address]. tel:[phone] [facility], [address] [place] [address], [id number] , [place] tel:[phone] [facility] [place] No Information Aug- 2 Will Too. [address] [place] [address], [id number] , [place]. tel:[phone] [facility], [address] [place] [address], [id number] , [place] tel:[phone] [facility] No Information Jul- 2 Mayra Rapp. [address] [place] [address] [address], [place], [place], [id number] , [place]. tel:[phone] Referring Provider: Too Del Cid, [address] [place] [address], [address]. tel:[phone] OFFICE/OUTPAT IENT VISIT, EST [facility], [address] [place] [address], [id number] , [place] tel:[phone] [facility] Back Pain (chief complaint) Radiculopathy, lumbar regionMyalgia, other sitePostlamine ctomy syndrome, not elsewhere classifiedLong term (current) use of opiate analgesicEncou nter for therapeutic drug level monitoringEnco unter for screening for other disorderPain in right shoulderPain in right knee Jul- 2 Mayra Rapp. [address] [place] [address] [address], [place], [place], [id number] , [place]. tel:[phone] Referring Provider: Caleb Ontiveros, [facility] [address] [facility], [place], [address]. tel:[phone] OFFICE VISIT, [facility], [address] [place] [address], [id number] , [place] tel: [phone] [facility] (chief complaint) Postlaminectom y syndrome, not elsewhere classifiedRadi culopathy, lumbar regionMyalgia, other siteLong term (current) use of opiate analgesic - 2 Mayra Rapp. [facility] Count Includes [facility] [address], [place], [place], [id number] , [place]. tel:[phone] Referring Provider: Too Del Cid, [address] [place] [address], [address]. tel:[phone] OFFICE/OUTPAT IENT VISIT, [facility], [address] [place] [address], [id number] , [place] tel:[phone] [facility] (chief complaint) Myalgia, other sitePostlamine ctomy syndrome, not elsewhere classifiedRadi culopathy, lumbar regionLong term (current) use of opiate analgesic 1 Mayra Rapp. [address] [place] [address] [address], [place], [place], [id number] , [place]. tel:[phone] Referring Provider: Too Del Cid, [address] [place] [address], [address]. tel:[phone] OFFICE VISIT, [facility], [address] [place] [address], [id number] , [place] tel:[phone] [facility] low back pain (chief complaint) Radiculopathy, lumbar regionMyalgia, other siteLong term (current) use of opiate analgesicPostl aminectomy syndrome, not elsewhere classified Nov- 1 Mayra Rapp. [address] Count Includes [facility] [address], [place], [place], [id number] , [place]. tel:[phone] Referring Provider: Too Del Cid, [address] [place] [address], [address]. tel:[phone] [facility], [address] [place] [address], [id number] , [place] tel:[phone] [facility] Postlaminectom y syndrome, not elsewhere classified 1 Mayra Rapp. [address] [place] [address] [address], [place], [place], [id number] , [place]. tel:[phone] Referring Provider: Too Del Cid, [address] [place] [address], [address]. [phone] OFFICE/OUTPAT IENT VISIT, EST [facility], [address] [place] [address], [id number] , [place] tel:[phone] [facility] Widespread pain (chief complaint) Postlaminectom y syndrome, not elsewhere classifiedRadi culopathy, lumbar regionMyalgia, other siteLong term (current) use of opiate analgesic 1 Mayra Rapp. [address] [place] [address] [address], [place], [place], [id number] , [place]. tel:[phone] Referring Provider: Too Del Cid, [address] [place] [address], [address]. tel:[phone] [facility], [address] [place] [address], [id number] , [place] tel:[phone] [facility] No Information 1 Mayra Rapp. [address] [place] [address] [address], [place], [place], [id number] , [place]. tel:[phone] Referring Provider: Too Del Cid, [address] [place] [address], [address]. tel:[phone] OFFICE/OUTPAT IENT VISIT, [facility], [address] [place] [address], [id number] , [place] tel:[phone] [facility] Widespread pain (chief complaint) Postlaminectom y syndrome, not elsewhere classifiedRadi culopathy, lumbar regionMyalgia, other siteLong term (current) use of opiate analgesic 1 Mayra Rapp. [address] [place] [address] [address], [place], [place], [id number] , [place]. [phone] Referring Provider: Too Del Cid, [address] [place] [address], [address]. tel:[phone] OFFICE/OUTPAT IENT VISIT, [facility], [address] [place] [address], [id number] , [place] [phone] [facility] Widespread pain (chief complaint) Postlaminectom y syndrome, not elsewhere classifiedRadi culopathy, lumbar regionMyalgia, other siteLong term (current) use of opiate analgesic 1 Mayra Rapp. [address] [place] [address] [address], [place], [place], [id number] , [place]. [phone] Referring Provider: Too Del Cid, [address] [place] [address], [address]. tel:[phone] [address] [place] [address] [facility], [address] [place] [address], [id number] , [place] [phone] [facility] Postlaminectom y syndrome, not elsewhere classified 1 Mayra Rapp. [address] [place] [address] [address], [place], [place], [id number] , [place]. tel:[phone] Referring Provider: Too Del Cid, [address] [place] [address], [address]. tel:[phone] OFFICE/OUTPAT IENT VISIT, [facility], [address] [place] [address], [id number] , [place] tel:[phone] [facility] Widespread pain (chief complaint) Radiculopathy, lumbar regionMyalgia, other siteLong term (current) use of opiate analgesicPostl aminectomy syndrome, not elsewhere classified 1 Mayra Rapp. [address] [place] [address] [address], [place], [id number] , [place]. tel:[phone] Referring Provider: Too Del Cid, [address] [place] [address], [address]. tel:[phone] [facility], [address] [place] [address], [id number] , [place] tel:[phone] [facility] Postlaminectom y syndrome, not elsewhere classified Apr-0 1 Nunez Dionte. [address] [place] [address] [address], [place], [place], [id number] , [place]. tel:[phone] Referring Provider: Too Del Cid, [address] [place] [address], [address]. tel:[phone] OFFICE/OUTPAT IENT VISIT, [facility], [address] [place] [address], [id number] , [place] tel:[phone] [facility] Widespread pain (chief complaint) Postlaminectom y syndrome, not elsewhere classifiedRadi culopathy, lumbar regionMyalgia, other siteLong term (current) use of opiate analgesicEncou nter for screening for other disorder Apr-0 1 Mayra Rapp. [address] [place] [address] [address], [place], [place], [id number] , [place]. tel:[phone] Referring Provider: Too Del Cid, [address] [place] [address], [address]. tel:[phone] OFFICE/OUTPAT IENT VISIT, [facility], [address] [place] [address], [id number] , [place] tel:[phone] [facility] Widespread pain (chief complaint) Postlaminectom y syndrome, not elsewhere classifiedRadi culopathy, lumbar regionMyalgia, other siteLong term (current) use of opiate analgesic Mar-0 1 Mayra Rapp. [address] [place] [address] [address], [place], [place], [id number] , [place]. tel:[phone] Referring Provider: Too Del Cid, [address] [place] [address], [address]. tel:[phone] [facility], [address] [place] [address], [id number] , [place] tel: [phone] [facility] Boring Postlaminectom y syndrome, not elsewhere classified 1 Mayra Rapp. [address] [place] [address] [address], [place], [place], [id number] , [place]. tel:[phone] Referring Provider: Too Del Cid, [address] [place] [address], [address]. tel:[phone] [address] [place] [address] [facility], [address] [place] [address], [id number] , [place] tel:[phone] [facility] No Information 1 Mayra Rapp. [address] [place] [address], [place], [place], [id number] , [place]. tel:[phone] OFFICE/OUTPAT IENT VISIT, EST [facility], [address] [place] [address], [id number] , [place] tel: [phone] [facility] Widespread pain (chief complaint) Postlaminectom y syndrome, not elsewhere classifiedRadi culopathy, lumbar regionMyalgia, other siteLong term (current) use of opiate analgesicPain in right kneeChronic pain syndrome 1 Mayra Rapp. [address] [place] [address] [address], [place], [place], [id number] , [place]. tel:[phone] Referring Provider: Too Del Cid, [address] [place] [address], [address]. tel:[phone] OFFICE VISIT, EST TELEMEDICINE [facility], [address] [place] [address], [id number] , [place] tel: [phone] [facility] [place] Widespread pain (chief complaint) Postlaminectom y syndrome, not elsewhere classifiedRadi culopathy, lumbar regionMyalgia, other siteLong term (current) use of opiate analgesicPain in right kneeChronic pain syndrome 0 Mayra Rapp. [address] [place] [address] [address], [place], [place], [id number] , [place]. tel:[phone] Referring Provider: Too Del Cid, [address] [place] [address], [address]. tel:[phone] [facility], [address] [place] [address], [id number] , [place] tel:[phone] [facility] Postlaminectom y syndrome, not elsewhere classified 0 Mayra Rapp. [address] [place] [address] [address], [place], [place], [id number] , [place]. tel:[phone] Referring Provider: Too Del Cid, [address] [place] [address], [address]. tel:[phone] [facility], [address] [place] [address], [id number] , [place] tel:[phone] [facility] Postlaminectom y syndrome, not elsewhere classified 0 Emiliano Martinez. [address] [place] [address], [id number] , [place]. tel:[phone] Referring Provider: Too Del Cid, [address] [place] [address], [address]. tel:[phone] OFFICE VISIT, EST TELEMEDICINE [facility], [address] [place] [address], [id number] , [place] tel:[phone] [facility] Widespread pain (chief complaint) Radiculopathy, lumbar regionMyalgia, other siteLong term (current) use of opiate analgesicPain in right kneeChronic pain syndromePostla minectomy syndrome, not elsewhere classified 0 Mayra Rapp. [address] [place] [address] [address], [place], [place], [id number] , [place]. tel:[phone] Referring Provider: Too Del Cid, [address] [place] [address], [address]. [phone] OFFICE/OUTPAT IENT VISIT, EST [facility], [address] [place] [address], [id number] , [place] tel: [phone] [facility] Widespread pain (chief complaint) Myalgia, other siteRadiculopa thy, lumbar regionPostlami nectomy syndrome, not elsewhere classifiedLong term (current) use of opiate analgesicPain in right kneeChronic pain syndrome 0 Nunez Dionte. [address], [place], [place], [id number] , [place]. tel:[phone] Referring Provider: Too Del Cid, [address] [place] [address], [address]. tel:[phone] [facility], [address] [place] [address], [id number] , [place] tel:[phone] [facility] Postlaminectom y syndrome, not elsewhere classifiedMyal isabel, other site 0 Nyjoe Hays. [address], [place], [place], [id number] , [place]. tel:[phone] Referring Provider: Too Del Cid, [address] [place] [address], [address]. tel:[phone] [facility], [address] [place] [address], [id number] , [place] tel:[phone] [facility] Radiculopathy, lumbar regionPostlami nectomy syndrome, not elsewhere classified 0 Mayra Rapp. [address] Count Includes [facility] [address], [place], [place], [id number] , [place]. tel:[phone] Referring Provider: Too Del Cid, [address] [place] [address], [address]. tel:[phone] [facility], [address] [place] [address], [id number] , [place] tel:[phone] [facility] No Information Oct-0 6-202 0 Will Too. [address] [place] [address], [id number] , [place]. [phone] Referring Provider: Too Del Cid, [address] [place] [address], [address]. tel:[phone] OFFICE VISIT, EST TELEMEDICINE [facility], [address] [place] [address], [id number] , [place] tel:[phone] [facility] [place] Widespread pain (chief complaint) Radiculopathy, lumbar regionLong term (current) use of opiate analgesicMyalg ia, other sitePain in right kneeChronic pain syndromePostla minectomy syndrome, not elsewhere classified Sep-2 5-202 0 Mayra Rapp. [facility], [place], [place], [id number] , [place]. [phone] Referring Provider: Too Del Cid, [address] [place] [address], [address]. tel:[phone] [facility], [address] [place] [address], [id number] , [place] [phone] [facility] Radiculopathy, lumbar region Sep-0 -202 0 Cummings Michelle. [address] [place] [address], [id number] , [place]. [phone] Referring Provider: Too Del Cid, [address] [place] [address], [address]. tel:[phone] [facility], [address] [place] [address], [id number] , [place] tel:[phone] [facility] No Information Sep-0 3-202 0 Cummings Michelle. [address] [place] [address], [id number] , [place]. [phone] Referring Provider: Too Del Cid, [address] [place] [address], [address]. tel:[phone] OFFICE VISIT, EST TELEMEDICINE [facility], [address] [place] [address], [id number] , [place] tel: [phone] [facility] [place] Widespread pain (chief complaint) Postlaminectom y syndrome, not elsewhere classifiedLong term (current) use of opiate analgesicRadic ulopathy, lumbar regionMyalgia, other sitePain in right kneeChronic pain syndrome 0 Nunez Dionte. [address] [place] [address] [address], [place], [place], [id number] , [place]. tel:[phone] Referring Provider: Too Del Cid, [address] [place] [address], [address]. tel:[phone] [facility], [address] [place] [address], [id number] , [place] tel: [phone] [facility] [place] Postlaminectom y syndrome, not elsewhere classified 0 Nunez Dionte. [address] [place] [address] [address], [facility], [place], [id number] , [place]. tel:[phone] OFFICE VISIT, EST TELEMEDICINE [facility], [address] [place] [address], [id number] , [place] tel: [phone] [facility] [place] Widespread pain (chief complaint) Pain in right kneeChronic pain syndromePostla minectomy syndrome, not elsewhere classifiedLong term (current) use of opiate analgesicRadic ulopathy, lumbar regionMyalgia, other site 0 Nunez Dionte. [address] [place] [address] 100, [facility], [place], [id number] , [place]. tel:[phone] Referring Provider: Too Del Cid, [address] [place] [address], [address]. tel:[phone] OFFICE VISIT, EST TELEMEDICINE [facility], [address] [place] [address], [id number] , [place] tel:[phone] Telehealth Widespread pain (chief complaint) Pain in right kneeChronic pain syndromePostla minectomy syndrome, not elsewhere classifiedLong term (current) use of opiate analgesicRadic ulopathy, lumbar regionMyalgia, other site 0 Mayra Rapp. [address] [place] [address] [address], [place], [place], [id number] , [place]. tel:[phone] Referring Provider: Too Del Cid, [address] [place] [address], [address]. tel:[phone] OFFICE VISIT, EST TELEMEDICINE [facility], [address] [place] [address], [id number] , [place] tel:[phone] Telehealth Widespread pain (chief complaint) Postlaminectom y syndrome, not elsewhere classifiedPain in right kneeChronic pain syndromeLong term (current) use of opiate analgesicRadic ulopathy, lumbar regionMyalgia, other site 0 Mayra Rapp. [address] [place] [address] [address], [place], [place], [id number] , [place]. tel:[phone] Referring Provider: Too Del Cid, [address] [place] [address], [address]. tel:[phone] Psych Dx Eval [facility], [address] [place] [address], [id number] , [place] tel:[phone] Telehealth Pain disorder with related psychological factorsPost-tr aumatic stress disorder, unspecified 0 Tess Aguilar. [address] [place] [address], [id number] , [place]. [phone] Referring Provider: Too Del Cid, [address] [place] [address], [address]. tel:[phone] OFFICE VISIT, EST TELEMEDICINE [facility], [address] [place] [address], [id number] , [place] tel:[phone] Telehealth Widespread pain (chief complaint) Chronic pain syndromePain in right kneePostlamine ctomy syndrome, not elsewhere classifiedLong term (current) use of opiate analgesicMyalg ia, other siteRadiculopa thy, lumbar region 0 Mayra Rapp. [address] [place] [address] [address], [place], [place], [id number] , [place]. tel:[phone] Referring Provider: Too Del Cid, [address] [place] [address], [address]. tel:[phone] OFFICE VISIT, EST [facility], [address] [place] [address], [id number] , [place] tel: [phone] Telehealth Widespread pain (chief complaint) Chronic pain syndromePain in right kneePostlamine ctomy syndrome, not elsewhere classifiedLong term (current) use of opiate analgesic Amos-0 2- 0 Nunez Dionte. [address] [place] [address] [address], [place], [place], [id number] , [place]. tel:[phone] Referring Provider: Too Del Cid, [address] [place] [address], [address]. tel:[phone] OFFICE VISIT, [facility], [address] [place] [address], [id number] , [place] tel: [phone] Telehealth Widespread pain (chief complaint) Postlaminectom y syndrome, not elsewhere classifiedPain in right kneeChronic pain syndromeLong term (current) use of opiate analgesic September- 0 Nunez Dionte. [address] [place] [address] [address], [place], [place], [id number] , [place]. tel: [phone] Referring Provider: Too Del Cid, [address] [place] [address], [address]. tel:[phone] OFFICE VISIT, [facility], [address] [place] [address], [id number] , [place] tel: [phone] Telehealth Widespread pain (chief complaint) Postlaminectom y syndrome, not elsewhere classifiedPain in right kneeChronic pain syndromeLong term (current) use of opiate analgesicPain in left hip September-0 0 Nunez Dionte. [address] [place] [address] [address], [place], [place], [id number] , [place]. tel: [phone] OFFICE VISIT, EST [facility], [address] [place] [address], [id number] , [place] tel:[phone] Telehealth Widespread pain (chief complaint) Postlaminectom y syndrome, not elsewhere classifiedPain in right kneeChronic pain syndromeLong term (current) use of opiate analgesic Apr-2 0-202 0 Mayra Rapp. [address] Count Includes [facility] [address], [place], [place], [id number] , [place]. tel:[phone] Referring Provider: Too Del Cid, [address] [place] [address], [address]. tel:[phone] OFFICE VISIT, EST TELEMEDICINE [facility], [address] [place] [address], [id number] , [place] tel:[phone] Telehealth Widespread pain (chief complaint) Postlaminectom y syndrome, not elsewhere classifiedPain in right kneeChronic pain syndromeLong term (current) use of opiate analgesic Apr-0 2-202 0 Mayra Rapp. [address] [place] [address] [address], [place], [place], [id number] , [place]. tel:[phone] Referring Provider: Too De lCid, [address] [place] [address], [address]. tel:[phone] OFFICE VISIT, EST TELEMEDICINE [facility], [address] [place] [address], [id number] , [place] tel:[phone] [facility] Widespread pain (chief complaint) detention (current) use of opiate analgesicPostl aminectomy syndrome, not elsewhere classifiedPain in right kneeChronic pain syndrome 8 0 Mayra Rapp. [address] [place] [address] [address], [place], [place], [id number] , [place]. tel:[phone] Referring Provider: Too Del Cid, [address] [place] [address], [address]. tel:[phone] [facility], [address] [place] [address], [id number] , [place] [phone] [facility] [place] No Information Jul- 0- 0 Mayra Rapp. [address] [place] [address] [address], [facility], [place], [id number] , [place]. tel:[phone] OFFICE/OUTPAT IENT VISIT, [facility], [address] [place], [place], [id number] , [place] tel:[phone] [facility] Widespread pain (chief complaint) Chronic pain syndromePostla minectomy syndrome, not elsewhere classifiedPain in right kneeLong term (current) use of opiate analgesic Jul-0 - 0 Mayra Rapp. [address] Count Includes [facility] [address], [place], [place], [id number] , [place]. tel: [phone] Referring Provider: Too Del Cid, [address] [place], [address]. tel:[phone] OFFICE/OUTPAT IENT VISIT, [facility], [address] [place], [place], [id number] , [place] tel:[phone] [facility] Widespread pain (chief complaint) Chronic pain syndromePostla minectomy syndrome, not elsewhere classifiedMyal isabel, other sitePain in right kneeEncounter for therapeutic drug level monitoringLong term (current) use of opiate analgesic 2 0 Nunez Dionte. 1455 Count Includes [facility] [address], [place], [place], [id number] , [place]. [phone] Referring Provider: Caleb Ontiveros [facility] [address] [facility], [place], [address]. tel:[phone] Family History Family Member Type Diagnosis Age At Onset No Information Payers Payer name Insurance type Covered alliance party ID Authoriza tiada(s) [employer] [facility] Replacement [id number] Social History Type Description Quantity Date Captured [...] C scre ening. Due on due Goal LEGAL PROCESS SPECIALIST Scanned. Due on due Goal Creatinine. [...] vaccine ( 1st). Due on due Goal IRB COMPLIANCE COORDINATOR Paperwork. Due on due Goal UDT. Due [...] Goal PHQ-9. Due on du e Goal LEGAL PROCESS SPECIALIST Scanned. Due on due Goal IRB COMPLIANCE COORDINATOR Paperwork. Due on due Goal Creatinine. Due [...] due Goal FIT. Due on due Goal HPV. Due on [...] ue Goal Creatinine. Due on due Goal IRB COMPLIANCE COORDINATOR Paperwork. Due on due Goal OARS. Due on due Goal ALT (SGPT). Due on due Goal Hepatitis C scre ening. Due on due Goal LEGAL PROCESS SPECIALIST Scanned. Due on due Goal Order [...] Goal AST (SGOT). Due on due Goal LEGAL PROCESS SPECIALIST Scanned. Due on due Goal ALT (SGPT). Due on due Goal Hepatitis C scre ening. Due on due Goal PHQ-9. Due on du e Goal OARS. Due on due Goal IRB COMPLIANCE COORDINATOR Paperwork. Due on due Goal Height. Due [...] ue Goal CT-Colonography. Due on due Goal Tobacco Use. Due on due Goal LEGAL PROCESS SPECIALIST Scanned. Due on due Goal Zoster [...] Goal ALT (SGPT). Due on due Goal IRB COMPLIANCE COORDINATOR Paperwork. Due on due Goal Creatinine. Due [...] Order Annual PT. Due on due Goal LEGAL PROCESS SPECIALIST Scanned. Due on due Goal Creatinine. [...] Goal PHQ-9. Due on du e Goal IRB COMPLIANCE COORDINATOR Paperwork. Due on due Goal Height. Due [...] due Goal CT-Colonography. Due on due Goal IRB COMPLIANCE COORDINATOR Paperwork. Due on due Goal ALT (SGPT). [...] Goal Weight. Due on d ue Goal LEGAL PROCESS SPECIALIST Scanned. Due on due Goal Tobacco Use. [...] Order Annual PT. Due on due Goal LEGAL PROCESS SPECIALIST Scanned. Due on due Goal ALT (SGPT). Due on due Goal Height. Due on d ue Goal OARS. Due on due Goal IRB COMPLIANCE COORDINATOR Paperwork. Due on due Goal Lipid panel. [...] u se screening. Due on due Goal LEGAL PROCESS SPECIALIST Scanned. Due on due Goal Tobacco Use. Due on due Goal Medication Recon ciliation. Due on due Goal Order Annual PT. Due on due Goal IRB COMPLIANCE COORDINATOR Paperwork. Due on due Goal HPV. Due on due Goal Zoster vaccine ( 1st). Due on due Goal OARS. Due on due Goal AST (SGOT). Due on due Goal Weight. Due on d ue Goal Height. Due on d ue Goal FIT-DNA. Due on due Goal CT-Colonography. Due on due Goal Lipid panel. Due on due Goal Creatinine. Due on due Goal FIT. Due on due Goal Review Allergy L ist. Due on due Goal ALT (SGPT). Due on due Goal PHQ-9. Due on du e Goal IRB COMPLIANCE COORDINATOR Paperwork. Due on due Goal OARS. Due on due Goal ALT (SGPT). Due on due Goal LEGAL PROCESS SPECIALIST Scanned. Due on due Goal UDT. [...] Social Hi story. Due on due Goal HPV. Due on due Goal Review Allergy L ist. Due on due Goal PHQ-9. Due on du e Goal Hepatitis C scre ening. Due on due Goal Zoster vaccine ( 1st). Due on due Goal UDT. Due on due Goal ALT (SGPT). Due on due Goal AST (SGOT). Due on due Goal Order Annual PT. Due on due Goal IRB COMPLIANCE COORDINATOR Paperwork. Due on due Goal Creatinine. Due on due Goal LEGAL PROCESS SPECIALIST Scanned. Due on due Goal OARS. [...] due Goal UDT. Due on due Goal LEGAL PROCESS SPECIALIST Scanned. Due on due Goal Creatinine. Due on due Goal OARS. Due on due Goal Order Annual PT. Due on due Goal IRB COMPLIANCE COORDINATOR Paperwork. Due on due Goal AST (SGOT). Due on due Goal PHQ-9. Due on [...] due Goal HPV. Due on due Goal LEGAL PROCESS SPECIALIST Scanned. Due on due Goal AST (SGOT). Due on due Goal Lipid panel. Due on due Goal PHQ-9. Due on du e Goal Creatinine. Due on due Goal FIT. Due on due Goal Medication Recon ciliation. Due on due Goal Weight. Due on d ue Goal IRB COMPLIANCE COORDINATOR Paperwork. Due on due Goal Review Allergy L ist. Due on due Goal ALT (SGPT). Due on due Goal OARS. Due on due Goal Zoster vaccine ( 1st). Due on due Goal Tobacco Use. Due on due Goal Height. Due on d ue Goal Hepatitis C scre ening. Due on due Goal LEGAL PROCESS SPECIALIST Scanned. Due on due Goal ALT [...] due Goal CT-Colonography. Due on due Goal IRB COMPLIANCE COORDINATOR Paperwork. Due on due Goal OARS. Due [...] ue Goal UDT. Due on due Goal LEGAL PROCESS SPECIALIST Scanned. Due on due Goal OARS. Due on due Goal Hepatitis C scre ening. Due on due Goal ALT (SGPT). Due on due Goal Creatinine. Due on due Goal Order Annual PT. Due on due Goal AST (SGOT). Due on due Goal CT-Colonography. Due on due Goal IRB COMPLIANCE COORDINATOR Paperwork. Due on due Goal FIT-DNA. Due [...] Order Annual PT. Due on due Goal LEGAL PROCESS SPECIALIST Scanned. Due on due Goal Creatinine. [...] vaccine ( 1st). Due on due Goal IRB COMPLIANCE COORDINATOR Paperwork. Due on due Goal Order Annual PT. Due on due Goal ALT (SGPT). Due on due Goal Tobacco Use. Due on due Goal FIT. Due on due Goal LEGAL PROCESS SPECIALIST Scanned. Due on due Goal PHQ-9. Due [...] due Goal OARS. Due on due Goal IRB COMPLIANCE COORDINATOR Paperwork. Due on due Goal Zoster vaccine [...] due Goal CT-Colonography. Due on due Goal LEGAL PROCESS SPECIALIST Scanned. Due on due Goal FIT-DNA. Due on due Goal Tobacco Use. Due on due Goal Creatinine. Due on due Goal Review Allergy L ist. Due on due Goal Lipid panel. Due on due Goal IRB COMPLIANCE COORDINATOR Paperwork. Due on due Goal UDT. Due on due Goal PHQ-9. Due on du e Goal ALT (SGPT). Due on due Goal Weight. Due on d ue Goal Order Annual PT. Due on due Goal LEGAL PROCESS SPECIALIST Scanned. Due on due Goal Medication Recon ciliation. Due on due Goal OARS. Due on due Goal Tobacco Use. Due on due Goal Creatinine. Due on due Goal IRB COMPLIANCE COORDINATOR Paperwork. Due on due Goal Review Allergy [...] Social Hi story. Due on due Goal LEGAL PROCESS SPECIALIST Scanned. Due on due Goal Medication Recon ciliation. Due on due Goal UDT. Due on due Goal Creatinine. Due on due Goal PHQ-9. Due on du e Goal IRB COMPLIANCE COORDINATOR Paperwork. Due on due Goal ALT (SGPT). Due on due Goal AST (SGOT). Due on due Goal Order Annual PT. Due on due Goal Creatinine. Due on due Goal IRB COMPLIANCE COORDINATOR Paperwork. Due on due Goal Tobacco Use. Due on due Goal PHQ-9. Due on du e Goal ALT (SGPT). Due on due Goal Update Social Hi story. Due on due Goal OARS. Due on due Goal AST (SGOT). Due on due Goal LEGAL PROCESS SPECIALIST Scanned. Due on due Goal Review Allergy L ist. Due on due Goal Height. Due on d ue Goal UDT. Due on due Goal Weight. Due on d ue Goal Medication Recon ciliation. Due on due Goal OARS. Due on due Goal Creatinine. Due on due Goal LEGAL PROCESS SPECIALIST Scanned. Due on due Goal Order Annual PT. Due on due Goal ALT (SGPT). Due on due Goal Update Social Hi story. Due on due Goal Review Allergy L ist. Due on due Goal AST (SGOT). Due on due Goal UDT. Due on due Goal Weight. Due on d ue Goal Medication Recon ciliation. Due on due Goal IRB COMPLIANCE COORDINATOR Paperwork. Due on due Goal PHQ-9. Due on du e Goal Height. Due on d ue Goal Tobacco Use. Due on due Goal Weight. Due on d ue Goal LEGAL PROCESS SPECIALIST Scanned. Due on due Goal PHQ-9. Due on du e Goal IRB COMPLIANCE COORDINATOR Paperwork. Due on due Goal Creatinine. Due [...] Goal Height. Due on d ue Goal AST (SGOT). Due on due Goal Creatinine. Due on due Goal OARS. Due on due Goal ALT (SGPT). Due on due Goal LEGAL PROCESS SPECIALIST Scanned. Due on due Goal Order Annual PT. Due on due Goal IRB COMPLIANCE COORDINATOR Paperwork. Due on due Goal UDT. Due [...] due Goal OARS. Due on due Goal IRB COMPLIANCE COORDINATOR Paperwork. Due on due Goal LEGAL PROCESS SPECIALIST Scanned. Due on due Goal Review Allergy [...] Goal Height. Due on d ue Goal LEGAL PROCESS SPECIALIST Scanned. Due on due Goal OARS. Due on due Goal Creatinine. Due on due Goal Weight. Due on d ue Goal UDT. Due on due Goal AST (SGOT). Due on due Goal Order Annual PT. Due on due Goal PHQ-9. Due on du e Goal IRB COMPLIANCE COORDINATOR Paperwork. Due on due Goal Review Allergy L ist. Due on due Goal Medication Recon ciliation. Due on due Goal AST (SGOT). Due on due Goal Height. Due on d ue Goal PHQ-9. Due on du e Goal Order Annual PT. Due on due Goal Medication Recon ciliation. Due on due Goal Tobacco Use. Due on due Goal IRB COMPLIANCE COORDINATOR Paperwork. Due on due Goal Review Allergy L ist. Due on due Goal Creatinine. Due on due Goal ALT (SGPT). Due on due Goal Update Social Hi story. Due on due Goal UDT. Due on due Goal OARS. Due on due Goal Weight. Due on d ue Goal LEGAL PROCESS SPECIALIST Scanned. Due on due Goal Order Annual PT. Due on due Goal ALT (SGPT). Due on due Goal Tobacco Use. Due on due Goal PHQ-9. Due on du e Goal Update Social Hi story. Due on due Goal IRB COMPLIANCE COORDINATOR Paperwork. Due on due Goal AST (SGOT). Due on due Goal Medication Recon ciliation. Due on due Goal Height. Due on d ue Goal Weight. Due on d ue Goal Review Allergy L ist. Due on due Goal LEGAL PROCESS SPECIALIST Scanned. Due on due Goal Creatinine. Due on due Goal OARS. Due on due Goal UDT. Due on due Goal Tobacco cessation counseling completed Referral Ordered: Azael Regan -Allopathic & Osteopathic Physicians : Family Medicine (related to Radiculopathy, lumbar region) ordered [facility]erral [facility] (related to Radiculopathy, lumbar region) ordered Referral [facility] To: [facility] [address] [place], [phone] Ordered: Referrals: [facility] Medicine. [facility] ordered Referral Ordered: X-RAY EXAM OF HIPS LT hip ordered Referral Ordered: Azael Regan -Allopathic & Osteopathic Physicians : Family Medicine (related to Postlaminectomy syndrome, not elsewhere classified) ordered Referral Referred To: Azael Regan [facility]
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 Patient was meeting with Jose from [employer] today and expressed her frustration with charging. [...] living facility. No other concerns. Comments: Brandee presents for a virtual follow [...] regimen. No other concerns today. Back Pain Severity level i s 8. Duration: chronic. The problem is worsening. It occurs persistently. Location of pain is lower back. Back Pain Duration: chroni c. The problem [...] TKA on 07/09/[address] Camara from [facility]. LEGAL PROCESS SPECIALIST was reviewed and shows pt was rx'ed 2mg Dilaudid max 7/day for post op pain. She was rx'ed #49tabs on 08/23/21, #49tabs on 08/19/21 and #49 tabs on 08/08/21. Her chronic dose at [facility] is #5tabs a day, patient agreeable to [...] changing positions, chiropractor and walking. Back Pain Severity level i [...] rescheduled for 07/09/[address] Camara from [facility]. Surgeon will manage post-op pain. Lower [...] for [address] Lino or from [facility]. It was canceled due to no hospital beds available with [facility].Expresses her ongoing frustration regarding her lumbar [...] scheduled R TKA with Dr. Camara through [facility]. Discussed post-op pain management. Also continues [...] order. She looks forward to reprogramming with [employer] today as she has had questions about [...] Pain has been worse. She went to [facility] two weeks ago with atrial fibrillation. She completed work-up and was put on warfarin. She met with her orthopedist at [facility] regarding her R knee pain. Orthopedist recommended [...] month due to visiting her daughter in [place]. She realized she can not walk long distances with her walker. Had a injection scheduled with [facility] but [facility] could not provide her the ride from [place]. She is excited about the recently approved [...] trial.She had a recent lumbar MRI with [facility] and per patient the imaging showed herniation and disc slippage at multiple levels. She said [facility] recommend a injection. With previous injections, she explains having a reaction to the procedure. She scheduled the injection on 12/[address] estrella at [facility].Reports current medication regimen provides at least [...] upcoming appt. with a back surgeon through [facility] next week to be evaluated. Reports [...] in July.No other concerns today. Widespread pain Severity level [...] over.Notes that she followed up with her technical product manager yesterday. States that she has arrythmia although [...] [employer] SCS trial. 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 She still [...] her medication. Medications are managed by [facility]. Denies side effects.Patient is not accompanied [...] has started physical therapy at [facility] and intends on continuing twice weekly. She [...] been recommended for possible R TKA at [facility], but no date has been scheduled. States her pain causes her lots of anxiety because she has tried many treatments without significant benefit. She is currently enrolled in PT at [facility] in [facility]. She also regularly attends the chiropractor. TENS [...] and other recommended therapies and would like [facility] [place] to assume management of pain care. Functional Status Date Functional Assessmen t No Information Instructions Date Instruction Additional Infor mation No Information Assessments Type Assessment Date assessment Pain in right knee impression S/p right TKA on 12/[address] Camara from [facility]. Has been participating in PT with good benefit. Pain has been worse since [facility] assessment Pain in left ankle and joints of left foot impression Worsening pain in th e left ankle and is considering an ankle fusion assessment Radiculopathy, lumbar region Jul impression Lower back pain with radiation into her BLE, continues to worsen since [facility] assessment Myalgia, other site impression TPIs in the past wit hout benefit. PO muscle relaxers provide moderate relief assessment Postlaminectomy syndrome, not el sewhere classified impression Hx of L4-S1 fusion. She has an SCS implant but may be interested in an explant assessment detention (current) use of opiat e analgesic impression The medication relie ves at least 60% of the pain, does not cause significant side effects, increases the patient's daily activity level. Medication managed by facility.Most of today's visit was spent discussing the patient's recent discharge from the clinic d/t her inappropriate behavior and language used toward staff. Patient expresses frustrations with termination. IRB COMPLIANCE COORDINATOR terminated.Most recent UDT results reviewed and appropriate. Not appropriate to continue opioid therapy d/t issues with inappropriate behavior. Current MME 30 Mental Status Date Cognitive Assessment Orientation - [place] ed to time, place, person, situation. Patient Care Teams Name Effective Dates (start - stop) Status Members No Information
== END 2023-01-08 07:04 | disposition home or self-care (01) ==
LOC: AMB 01-12 09:31
PROVIDERS: PCP Internal Medicine; Visit Provider Emergency Medicine
DX: R41.82 Altered mental status, unspecified (principal); T50.991A Poisoning by other drugs, medicaments and biological substances, accidental (unintentional), initial encounter
CPT/HCPCS: A0425; A0427

== ENCOUNTER 2023-01-08 07:42 | Inpatient (IN) | payer OTHER, SELFPAY ==
[2023-01-08] VITALS (53 sets, daily range): BP systolic 96–173; BP diastolic 66–124; PULSE 80–146; RESP 16–24; TEMP 35.6–36.7; O2SAT 86–100; BMI 39.3
[2023-01-08] MEDS: NALOXONE 1 MG/ML SYRINGE 0.4 MG IV ×2 (07:53→08:33)
[2023-01-08] MEDS: 0.9 % SODIUM CHLORIDE 1000 ml 1,000 ML IV (08:00)
[2023-01-08 08:34] LABS: Basophils Absolute Auto 0.04 K/uL (0.00-0.30); Basophils Percent Auto 0.6 % (0.0-3.0); Eosinophils Absolute Auto 0.07 K/uL (0.00-0.50); Eosinophils Percent Auto 1.1 % (0.0-7.0); HCO3 VBG 27 mmol/L (21-28); Hematocrit 33.9 % (33.0-51.0); Hemoglobin* 10.1 gm/dL (12.0-16.0); Immature Granulocytes Abs Auto 0.01 K/uL (0.00-0.30); Immature Granulocytes Pct Auto 0.2 %; Mean Corpuscular HGB Conc 30 gm/dL (32-36); Mean Corpuscular Hemoglobin 24 pg (26-34); Mean Corpuscular Volume 81 fL (80-100); Monocytes Percent Auto 10.1 % (0.0-11.0); PCO2 VBG 45 mmHG (40-50); PO2 VBG 32.9 mmHG (25-47); Platelet Count* 189 K/uL (140-440); RDW Coefficient of Variation % 18.2 % (11.5-15.5); White Blood Count* 6.33 K/uL (4.50-11.00); pH VBG 7.375 (7.32-7.43)
[2023-01-08 08:35] LABS: Lactate Sepsis w/Reflex* 1.1 mmol/L (0.5-1.9)
--- NOTE | 2023-01-08 08:35 | ED.NURSE ---
was given 2nd dose of narcan. is speaking now and responding, daughters and x is here.
[2023-01-08 08:36] LABS: Slide Review Reflex No
--- OUTSIDE RECORDS SUMMARY | 2023-01-08 08:48 | XMS_ITS | Continuity of Care Document ---
Author Name Unknown Organization [facility] Address [address] [place] [address] Phone Care Team Providers Care Lamp Decorator Name Role Phone Odalys BOLES, Homar Unavailable [...] C, [address], [place], [place], [address], [place] tel:[phone] [facility] No Information 8 Odalys Graf. [facility], [address] [place] [address] [address], [place], [place], [address] , [place]. tel:[phone] [facility], [address], [place], [address], [place] tel:[phone] [facility] No Information 8 Odalys Graf. [facility], [address] [place] [address] [address], [place], [place], [address] , [place]. tel:[phone] [facility], [address], [place], [place], [address], [place] tel:[phone] [facility] No Information 8 Rodrick Pop. [facility], [address] [place] [address] [address], [place], [place], [address] , [place]. tel:[phone] Referring Provider: Homar Morrow, [facility] [address] [place] [address] [address], [place], [address] . tel:[phone] [facility], [address], [place], [address], [place] tel:[phone] [facility] No Information 6 8 Odalys Graf. [facility], [address], [place], [place], [address] , [place]. [phone] Referring Provider: Homar Morrow, [facility] [address], [place], [address] . tel:[phone] Office/Outpat ient Visit,Est, Mod [facility], [address], [place], [address], [place] tel:[phone] [facility] Spinal stenosis, lumbar region 5 7 Odalys Graf. [facility], [address], [place], [place], [address] , [place]. [phone] Referring Provider: Homar Morrow, [facility] [address], [place], [address] . tel:[phone] [facility], [address], [place], [address], [place] tel:[phone] [facility] Spinal stenosis, lumbar region 0-201 6 Odalys Graf. [facility], [address], [place], [place], [address] , [place]. [phone] Referring Provider: Homar Morrow, [facility] [address], [place], [address] . tel:[phone] [facility], [address], [place], [address], [place] tel:[phone] [facility] status 1-201 6 Odalys Graf. [facility], [address], [place], [address] , [place]. [phone] [facility], [address], [place], [id number], [place] tel:[phone] [facility] No Information Sep-2 6 Odalys Rowlandin. [facility], [address], [place], [id number] , [place]. tel:[phone] Referring Provider: Homar Morrow, [facility] [address], [place], [address] . tel:[phone] Family History Family Member Type Diagnosis Age At Onset No Information Payers Payer name Insurance type Covered republican ID Authoreneida aaron(s) Medicare [id number] Social History Type Description Quantity Date Captured Comments Sex Female Smoking Status No Information Chief Complaint And Reason For Visit No Information Reason For Referral Reason For Referral No Information Plan Of Treatment Date Type Action Status Future Order: Radiology Order AP Lateral Lumbar (APLatLumb), Ordered on: Ordered Future Order: Radiology Order Fe rguson (Apdilla), Ordered on: Ordered History Of Present Illness [...]
[2023-01-08 08:51] LABS: Albumin* 3.7 g/dL (3.3-5.0); Chloride* 112 mmol/L (96-114); Sodium* 143 mmol/L (135-149)
[2023-01-08 08:52] LABS: Potassium* 4.1 mmol/L (3.6-5.1)
[2023-01-08 08:54] LABS: Alanine Aminotransferase* 45 U/L (4-35); Alkaline Phosphatase* 89 U/L (40-150); Aspartate Amino Transferase* 39 U/L (12-35); Bilirubin Total* 0.3 mg/dL (0.1-1.5); Blood Urea Nitrogen* 21 mg/dL (7-30); Calcium* 8.6 mg/dL (8.4-10.6); Carbon Dioxide* 27 mmol/L (20-32); Creatinine* 0.6 mg/dL (0.5-1.5); Estimated Glomerular Filt Rate 101 ml/min; Glucose* 162 mg/dL (60-115); Total Protein* 6.5 g/dL (6.0-8.3)
[2023-01-08 08:56] LABS: Prothrombin Time 31.7 Seconds
[2023-01-08 09:02] LABS: Appearance Urine Clear (Clear); Bilirubin Urine Negative (Negative); Blood Urine Negative (Negative); Color Urine Yellow (Yellow); Glucose Urine Negative (Negative); Ketones Urine Negative (Negative); Leukocyte Esterase Urine Negative (Negative); Nitrite Urine Negative (Negative); Protein Urine Negative (Negative); Urobilinogen Urine 0.2 (0.2-1.0)
[2023-01-08 09:03] LABS: Salicylate* < 1.0 mg/dL (1.0-10)
[2023-01-08 09:06] LABS: Acetaminophen* < 10.0 ug/mL (10.0-30.0); Ethanol* < 0.01 % (0.01-0.03); Troponin I* < 0.01 ng/mL (0.01-0.04)
[2023-01-08 09:13] LABS: Amphetamine Screen Urine POSITIVE (Negative); Barbiturate Screen Urine Negative (Negative); Benzodiazepines Screen Urine Negative (Negative); Cannabinoid Screen Urine POSITIVE (Negative); Cocaine Screen Urine Negative (Negative); Methadone Screen Urine Negative (Negative); Methamphetamines Screen Urine Negative (Negative); Opiate Screen Urine Negative (Negative); Oxycodone Screen Urine Negative (Negative); Phencyclidine Screen Urine Negative (Negative); Tricyclic Antidepressant Urine POSITIVE (Negative)
--- NOTE | 2023-01-08 09:19 | ED.NURSE ---
family reports that she has been placing topical pain med in her rectum at home. daughter at bedside. has refused to have a ct scan. is talking more and stated she didn't want it.
[2023-01-08 09:22] LABS: RBC Urine 0-2 (0-2); WBC Urine 0-2 (0-5)
--- NOTE | 2023-01-08 09:48 | XR_ITS ---
Patient: HUGO CORDOVA Facility:?[facility] Patient ID:?[id number] Site Patient ID:?[id number]. Site :?[id number] Study:?XRay-Chest PORTABLE-01/08/2023 10:16:25 AM Ordering Physician:Katerin Harris Final Report: INDICATION: Shortness of breath. TECHNIQUE: Chest 1 views. COMPARISON: None. FINDINGS: The patient is rotated leftward. Heart and mediastinum: AP technique contributes to an increased transverse dimension of the cardiac silhouette. An enlarged cardiac silhouette is not excluded. Lungs and pleural spaces: Lungs are clear. No sign of infiltrate or mass. No sign of pleural effusion. No pneumothorax. Bones and soft tissues: Intact left shoulder arthroplasty. The leads of a spinal stimulator noted superimposed upon the lower thoracic spine.. IMPRESSION: No acute cardiopulmonary process. Incidental findings described above. Dictated by Raji Gomes MD @ 01/08/2023 10:39:24 AM Signed by:?Raji Gomes MD @01/08/2023 10:39:24 AM (Electronic Signature)
[2023-01-08] MEDS: dilTIAZem 5 MG/ML inj 10 MG IVP ×3 (09:53→20:33)
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
--- NOTE | 2023-01-08 11:25 | ED.NURSE ---
daughter Rebeca was inquiring as to why she had her pain meds discontinued at [facility]. she wanted to talk to dr santos. dr costello did speak to rebeca as kina also wanted her to be transferred to [facility], report was called to Raji manning. was transferred to [facility].
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
--- NOTE | 2023-01-08 12:08 | CRLHL7_ITS ---
For Patients: As a result of the Century Cures Act, medical imaging exams and procedure reports are released immediately into your electronic medical record. You may view this report before your referring provider. If you have questions, please contact your health care provider. Indication: Altered mental status Technique: Volumetric multidetector CT images of the head were obtained without the administration of low osmolar intravenous contrast. Comparison: None available Findings: Exam is moderately limited due to motion artifact which may obscure subtle fluid collections along the cerebral convexities. No evidence of large intra-axial or extra-axial hemorrhage is identified. There is no mass effect or midline shift. There is age-related cortical atrophy with mild sulcal widening and ex vacuo dilatation of the lateral ventricles. There are chronic small vessel disease changes in the subcortical and periventricular white matter without lost smith-white differentiation. The orbits and their contents are grossly within normal limits. The bony calvarium is grossly intact. The paranasal sinuses are clear. The mastoid air cells are well aerated. Impression: Moderately limited exam due to motion artifact which may obscure subtle findings along the cerebral convexities. Otherwise, is related and chronic small-vessel disease changes of the brain without acute intracranial abnormality. Please note that all CT scans at this facility use dose modulation, iterative reconstruction, and/or weight-based dosing when appropriate to reduce radiation dose to as low as reasonably achievable. Dictated by Pb Shaw MD @ 01/08/2023 3:02:18 PM (Electronically Signed)
[2023-01-08 12:27] LABS: Creatine Kinase* 72 U/L (41-117)
[2023-01-08] MEDS: ATORVASTATIN CALCIUM 40 MG TABLET PO (14:42)
[2023-01-08] MEDS: ACETAMINOPHEN 500 MG TABLET 1000 MG PO (14:43)
[2023-01-08] MEDS: SERTRALINE 100 MG TABLET PO (14:43)
[2023-01-08] MEDS: METOPROLOL TARTRATE 50 MG TABLET PO (15:09)
[2023-01-08] MEDS: ALBUTEROL INHALER 2 PUFF IH (15:12)
[2023-01-08] MEDS: LORazepam 2 MG/ML inj 0.5 MG IVP ×2 (17:07→23:36)
[2023-01-08] MEDS: diphenhydrAMINE 50 MG/ML inj 25 MG IVP (17:07)
[2023-01-08] MEDS: 0.9 % SODIUM CHLORIDE 500 ML 500 ML IV (18:23)
[2023-01-08 18:28] LABS: Hemoglobin* 10.7 gm/dL (12.0-16.0)
[2023-01-08] MEDS: HYDROmorphone 2 MG TABLET PO ×2 (18:47→20:35)
[2023-01-08] MEDS: WARFARIN 3 MG TABLET PO (18:53)
--- NOTE | 2023-01-08 19:54 | PC.NURSE ---
end of shift., pt came up to ED via cot. o2 on @ 2L nc. [place] is patent. she is alert to self and place off to date month and year. she was tired and sleepy. 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 tele shows A-Fib. she was doing good till 1630 she woke up mad, anxious and wanted to go home. talked to md and got Ativan and Benadryl ordered. pt also had some blood in her [place]. md was update and hgb was rechecked 10.7 it was 10.1. pain in abd was 3-4 until 1730 then pt said it was 10/10. talked to md and 2 mg po Dilaudid was ordered. pt has been on RA. @ 1630 she also complained of not being able to breath o2 on RA was 94 LSC he was coughing and talking with no problems. put o2 on 2 2l nc and got RT to see her. RT saw put Sao2 was 99% and o2 was turned off, md did come to see pt and no breathing problems where noted. pt has pain at [place] site. [place] was check with female RN and everything appears normal,. asked pt if she pulled on the [place] and she said no.
[2023-01-08] MEDS: METFORMIN 500 MG TABLET PO (20:31)
[2023-01-08] MEDS: SOTALOL HCL 120 MG TABLET 60 MG PO (20:34)
[2023-01-08] MEDS: SODIUM CHLORIDE 0.9 % (FLUSH) 10 ML SYRINGE 5 ML IVF ×2 (20:34→23:36)
--- NOTE | 2023-01-08 22:02 | CRLHL7_ITS ---
For Patients: As a result of the Century Cures Act, medical imaging exams and procedure reports are released immediately into your electronic medical record. You may view this report before your referring provider. If you have questions, please contact your health care provider. Indication: Shortness of breath Technique: Chest 1 view Comparison: January 08, 2023 Findings/Impression: Cardiomegaly. Mild pulmonary venous congestion. No focal infiltrate, effusion, or pneumothorax. Status post left shoulder arthroplasty. Dictated by Cesilia Orosco MD @ 01/08/2023 10:46:01 PM (Electronically Signed)
--- NOTE | 2023-01-08 23:32 | W.PM.CROSSCO ---
Subjective Subjective Interval history: Cardiomegaly. Mild pulmonary venous congestion. No focal infiltrate, effusion, or pneumothorax. Status post left shoulder arthroplasty. prn ativan and dilaudid ordered
[2023-01-09] VITALS (50 sets, daily range): BP systolic 132–171; BP diastolic 92–133; PULSE 81–144; RESP 18–30; TEMP 36.2–36.8; O2SAT 64–96; BMI 39.3
[2023-01-09] MEDS: METOPROLOL TARTRATE 1 MG/ML inj 5 MG IVP (00:34)
[2023-01-09] MEDS: LORazepam 2 MG/ML inj 0.5 MG IVP (01:23)
[2023-01-09] MEDS: SODIUM CHLORIDE 0.9 % (FLUSH) 10 ML SYRINGE 5 ML IVF ×8 (01:23→20:46)
--- NOTE | 2023-01-09 02:27 | P.CCN_ITS ---
Subjective Subjective Time Seen by Provider: 02:25 Date Seen: 01/09/23 Principal diagnosis: Uncontrolled atrial fibrillation. Polysubstance abuse. Interval history: The [facility] Hospitalist Progress Note. The local provider initiating contact: RAQUEL Tafoya. Purpose of contact: Patient Reassessment/Rapid Response. HPI: This patient is a 62-year-old lady who was admitted in an unresponsive state earlier on 01/08/2023. She has a history of polysubstance abuse and atrial fibrillation. It was noted that the long term she is living and stopped her narcotic medications because of evidence of concurrent alcohol misuse. Patient was found to be in atrial fibrillation with RVR. She also demonstrated signs and symptoms of withdrawal. The patient's RN called tonight because the patient has a tendency to become hyperalert and agitated. This appears to contribute to increased tachycardia. Right now she is in atrial fibrillation with a heart rate of about 1 30-1 50. There is been no concurrent drop in systolic blood pressure. The patient has been given as needed Ativan and this seems to show evidence that she is less agitated at this time. The RN feels that might be beneficial if we consider a CIWA protocol. We also discussed the probable benefit of starting a Cardizem infusion with heart rate and blood pressure parameters. She is currently on sotalol and as needed IVP doses of metoprolol. Pertinent information was reviewed and gathered from the patient's hospital chart. VITAL SIGNS: T 97.8. P 141. RR 30. BP 132/113. SPO2 92%. FIO2 room air. GENERAL: Currently somnolent but arousable. Answers simple questions appropriately. Follows basic commands normally. No sign of distress are displayed. Pain level claimed: 0/10. HEENT: NC/AT. Facial features symmetric. PERRL. EOM function WNL. No jaundice seen. No cyanosis seen. Oropharynx is partially visualized. Normal mucous membranes seen. NECK: Supple. No JVD seen. CHEST: Chest wall is not tender. Respiratory motion appears normal. LUNGS: Breath sounds heard in all lung carey, bilaterally. No coarse rhonchi heard. No wheezes heard. No rales heard. HEART: RR. Tachycardia noted no murmurs heard. No gallops heard. Full, symmetric pulses palpated. ABD: Bowel sounds present in 4 quadrants. Soft. No rebound rigidity or guarding palpated. : Not examined. EXTREMITIES: No dependent leg edema seen. SKIN: No rashes seen. No primary skin lesions identified. NEUROLOGICAL: Sleepy but arousable. Moves all extremities purposefully or on command. Cranial nerve 2-12 function WNL. Strength symmetric. No tremors seen. No myoclonus seen. Assessment: 1. Atrial fibrillation with RVR. The patient is not hypotensive. There are no signs or symptoms of pulmonary edema. 2. Acute withdrawal symptoms. Patient has a history of narcotic drug abuse as well as alcohol misuse. 3. Chronic atrial fibrillation, uncontrolled. Plans: 1. CIWA protocol. 1 hour protocol requested. 2. Ativan to help control symptoms of withdrawal. 3. Diltiazem infusion. We will attempt to titrate the infusion to keep the patient's heart rate in the 60 to 110 bpm range. Will hold infusion if the systolic blood pressure is less than 100. 4. We will continue to follow the patient and provide cross coverage services and reassessments as needed for any further acute status changes. Recommendations: 1. Every 4 hours vital signs. 2. Continuous pulse oximetry if the patient tolerates monitoring. 3. Continue telemetry. 4. Continue anticoagulation therapy. I have reviewed this case in consultation. Information has been gathered from conversations with the local provider, a review of the patient's chart, and by a patient evaluation if requested by the local provider or if deemed beneficial by the [facility]. Thank you for including [facility] in the patient's care. This service is available for further assistance as requested by your care team by calling [phone]. Objective Objective Data Details: See note above. Assessment and Plan Assessment and plan (1) Atrial fibrillation with rapid ventricular response: Problem comment: - likely related to acute illness, dehydration - responded well to IV Diltiazem in ED - on oral Metoprolol as an outpatient, restart this and follow on telemetry Status: Acute (2) Altered mental status: Status: Acute Plan See above.
[2023-01-09] MEDS: dilTIAZem HCL 125 MG in 0.9 % SODIUM CHLORIDE 100 ml 100 ML 10 MG IVPB ×3 (03:01→18:14)
[2023-01-09] MEDS: LORazepam 2 MG/ML inj IVP ×10 (03:44→21:43)
[2023-01-09] MEDS: FUROSEMIDE 10 MG/ML inj 20 MG IVP (04:51)
[2023-01-09 06:50] LABS: HCO3 VBG 23 mmol/L (21-28); Ionized Calcium* 1.06 mmol/L (1.11-1.30); PCO2 VBG 32 mmHG (40-50); PO2 VBG 82.9 mmHG (25-47); pH VBG 7.466 (7.32-7.43)
[2023-01-09 06:57] LABS: Basophils Absolute Auto 0.06 K/uL (0.00-0.30); Basophils Percent Auto 0.9 % (0.0-3.0); Eosinophils Absolute Auto 0.16 K/uL (0.00-0.50); Eosinophils Percent Auto 2.5 % (0.0-7.0); Hematocrit 34.9 % (33.0-51.0); Hemoglobin* 10.6 gm/dL (12.0-16.0); Immature Granulocytes Abs Auto 0.01 K/uL (0.00-0.30); Immature Granulocytes Pct Auto 0.2 %; Mean Corpuscular HGB Conc 30 gm/dL (32-36); Mean Corpuscular Hemoglobin 24 pg (26-34); Mean Corpuscular Volume 80 fL (80-100); Neutrophils Percent Auto 72.4 % (42.0-72.0); Platelet Count* 207 K/uL (140-440); RDW Coefficient of Variation % 18.3 % (11.5-15.5); Red Blood Count 4.38 m/uL (4.00-5.20); White Blood Count* 6.38 K/uL (4.50-11.00)
[2023-01-09 07:24] LABS: INR 2.83 (0.91-1.10); Prothrombin Time 31.1 Seconds
[2023-01-09 07:25] LABS: Chloride* 107 mmol/L (96-114); Sodium* 141 mmol/L (135-149)
[2023-01-09 07:27] LABS: Bilirubin Total* 0.7 mg/dL (0.1-1.5); Creatinine* 0.4 mg/dL (0.5-1.5); Est. Creatinine Clearance* 46.13; Estimated Glomerular Filt Rate 112 ml/min
[2023-01-09 07:28] LABS: Alanine Aminotransferase* 99 U/L (4-35); Alkaline Phosphatase* 99 U/L (40-150); Aspartate Amino Transferase* 121 U/L (12-35); Blood Urea Nitrogen* 18 mg/dL (7-30); Calcium* 8.3 mg/dL (8.4-10.6); Carbon Dioxide* 24 mmol/L (20-32); Glucose* 161 mg/dL (60-115); Total Protein* 6.8 g/dL (6.0-8.3)
[2023-01-09 07:34] LABS: Slide Review Reflex No
--- NOTE | 2023-01-09 07:38 | PC.NURSE ---
shift note: Pt oriented to self and place, unaware of date/time/month. Pt restless much of the shift, dangling at bedside to wiggle around feet, legs were very restless this shift. Pt stated she was unable to get comfortable, frequently changing position from laying on back, to laying on side, to sitting up at bedside. Pt c/o abd pain, stated she gets acid reflux from Tylenol, offered tums, pt refused. Pt stated her ?tummy? pain might be ?gas pains?, offered pt a walk, pt declined & stated maybe she is constipated, PRN stool softener ordered. Pt cooperative, however is also impulsive ? thrashing or moving around in such a way she was pulling on [place]/Pulse Oximeter/BP Cuff.?Pts HR 100-150s, PRNs for HR given, HR remained elevated, Bernabe hospitalist updated on pts HR, BP and anxiety/agitation, Diltiazem Drip Initiated as well as CIWAs. Diltiazem running at 15mg/hr, HR at end of shift 90s-120s. Placed pt on O2 via NC, had pt on 3L initially, titrated down to 1L and maintaining in the low 90s, MD gave verbal order to give Lasix if pts O2 sats dropped. Oorna was draining bright red urine, with minimal output, after 20mg Lasix administered, UOP increased and urine color at end of shift is light yellow. ?
--- NOTE | 2023-01-09 07:56 | REH.OT ---
OT/PT evaluations on hold today until pt. is medically appropriate for therapy.
[2023-01-09] MEDS: POTASSIUM CHLORIDE 10 MEQ/100 ML PIGGYBACK 100 MEQ IVPB ×2 (09:28→10:05)
[2023-01-09] MEDS: TORSEMIDE 100 MG TABLET 50 MG PO (09:28)
[2023-01-09] MEDS: POTASSIUM BICARB 25 MEQ EFFERVESCENT TAB PO ×3 (09:30→17:35)
[2023-01-09] MEDS: SERTRALINE 100 MG TABLET 200 MG PO (09:34)
[2023-01-09] MEDS: ATORVASTATIN CALCIUM 40 MG TABLET PO (09:35)
[2023-01-09] MEDS: ACETAMINOPHEN 500 MG TABLET 1000 MG PO (09:35)
[2023-01-09] MEDS: SOTALOL HCL 120 MG TABLET 60 MG PO (09:36)
[2023-01-09] MEDS: METFORMIN 500 MG TABLET PO (09:38)
[2023-01-09] MEDS: HYDROmorphone 2 MG TABLET PO ×4 (10:33→16:31)
[2023-01-09 10:39] LABS: Magnesium* 1.8 mg/dL (1.5-2.6)
[2023-01-09 14:40] LABS: Albumin* 4.5 g/dL (3.3-5.0); Chloride* 100 mmol/L (96-114); Potassium* 3.6 mmol/L (3.6-5.1); Sodium* 140 mmol/L (135-149)
--- NOTE | 2023-01-09 14:40 | PM.IMPN1 ---
Progress Note: A&P Assessment and plan (1) Altered mental status: Problem details: - differential diagnosis is broad and includes substance use, including methamphetamine, cocaine, PCP, withdrawal from opiates or benzodiazepines or methamphetamine, encephalopathy, ETOH withdrawal, intracranial process, atypical ACS, serotonin syndrome - admit to CCU on telemetry, urgent head CT (patient now agreeable), follow closely - no concerning symptoms for opiate withdrawal, will continue to watch closely Status: Acute Assessment and Plan: 1. Continue with CIWA driven alcohol withdrawal protocol with as needed benzodiazepines 2. Continue one-to-one care as needed (2) Atrial fibrillation with rapid ventricular response: Problem details: - likely related to acute illness, dehydration - responding to IV Diltiazem - on oral Metoprolol as an outpatient, restart this and follow on telemetry Status: Acute Assessment and Plan: 1. Continue with IV diltiazem and oral metoprolol. 2. Continue with anticoagulation (3) Polypharmacy: Problem details: This will warrant ongoing management efforts Status: Acute (4) Diabetes mellitus: Problem details: - A1C 7.4 on 10/22/22 - continue home medications with SSI and holding parameters pending po intake Status: Acute (5) Bipolar disorder: Status: Acute Assessment and Plan: Continue to monitor this closely (6) Hypertension: Status: Acute (7) Microcytic anemia: Problem details: - chronic, likely 2/2 gastric bypass surgery - routine outpatient f/u Status: Acute (8) Hypokalemia: Status: Acute Assessment and Plan: Potassium supplementation Plan 1. Reviewed with patient. Answered her questions. 2. Will attempt to reach family. 3. Plans and recommendations as specified above. 4. Patient agreeable to above stated plan recommendations. Time Spent With Patient Total time spent: 50 minutes Subjective Time Seen by Provider: 09:00 Date Seen: 01/09/23 Interval history: Exerpts from her HPI: 62-year-old lady who was admitted in an unresponsive state earlier on 01/08/2023. She has a history of polysubstance abuse and atrial fibrillation. It was noted that the custodial she is living [in] stopped her narcotic medications because of evidence of concurrent alcohol misuse. Patient was found to be in atrial fibrillation with RVR. She also demonstrated signs and symptoms of withdrawal. The patient's RN called ... because the patient has a tendency to become hyperalert and agitated. This appears to contribute to increased tachycardia. Right now she is in atrial fibrillation with a heart rate of about [130-150]. There [has] been no concurrent drop in systolic blood pressure. The patient has been given as needed Ativan and this seems to show evidence that she is less agitated at this time. The RN feels that might be beneficial if we consider a CIWA protocol. We also discussed the probable benefit of starting a Cardizem infusion with heart rate and blood pressure parameters. She is currently on [metoprolol] and as needed IVP doses of metoprolol. This morning she is sleepy. She is arousable. Has some interaction. Does not answer questions reliably all the time. Unable to tell me what transpired in her living setting which ultimately culminated in her being admitted to the hospital. I ask her specifically about drinking alcohol, taking her prescribed medications, and using other nonprescription drugs and medications and her answer is not comprehendible. Although when she was found there was drug paraphernalia on her and in her bed, she denies this. Presently denies chest heaviness, pressure, tightness, or pain. Denies dyspnea. Denies cough. Denies syncope or near-syncope. Denies orthostasis, lightheadedness, vertigo. Denies nausea vomiting. Did eat about 25% of her morning meal. Denies palpitations or chest fluttering with heart rates 100-120 as I evaluate her. Acknowledges a sense of restlessness. Denies other discomforts. Exam Narrative: Exam Narrative: When I 1st examined her early in the morning she is sound asleep and appears comfortable. Later when I examine her she is more agitated and moves every minute or so. I ask her if she is comfortable, and in at 1 moment she says she is comfortable, and add another moment she says she feels anxious. When she is awake she is alert and oriented to self and place not so much to time or situation. Not able to engage in any spontaneous conversation. May or may not answer questions I ask her, and if she does I may or may not understand her. Able to follow simple 1 step commands. Tympanic membranes are normal. Hearing seems preserved. Grossly her vision seems intact. Pupils are equally round reactive line accommodation. Extraocular muscles are intact. No icterus or conjunctival injection. Neck is supple. Midline trachea. No JVD or hepatojugular reflux. No carotid bruits. Lungs fairly clear to auscultation. Soft systolic murmur across precordium. Tachycardia. Irregular rhythm. Abdomen is obese with active bowel sounds, soft, nontender. Extremities without edema. Palpable pulses in lower extremities and upper extremities. Capillary refill less than 3 seconds. No focal motor neurologic deficits. Const: Vital Signs, click to edit/add: Vital Signs - 24 hr 01/08/23 15:10 01/08/23 15:10 01/08/23 15:30 Temperature 97.0 F L Pulse Rate Pulse Rate [Left R adial] 118 H 118 H Respiratory Rate 16 16 16 Blood Pressure [Ri ght Arm] 145/120 H Pulse Oximetry 95 95 Oxygen Delivery Me thod Room Air Room Air Oxygen Flow Rate 01/08/23 15:35 01/08/23 16:10 01/08/23 18:24 Temperature 96.9 F L Pulse Rate 97 Pulse Rate [Left R adial] 118 H 126 H Respiratory Rate 16 22 Blood Pressure [Ri ght Arm] 166/120 H 148/112 H Pulse Oximetry 93 98 Oxygen Delivery Mt thod Room Air Room Air Oxygen Flow Rate 01/08/23 19:30 01/08/23 19:49 01/08/23 20:30 Temperature 98.1 F Pulse Rate 129 H Pulse Rate [Left R adial] 128 H 128 H Respiratory Rate 22 22 Blood Pressure [Ri ght Arm] 147/116 H Pulse Oximetry 96 Oxygen Delivery Mt thod Room Air Oxygen Flow Rate 01/08/23 21:46 01/08/23 22:30 01/08/23 23:00 Temperature 97.8 F Pulse Rate 120 H Pulse Rate [Left R adial] 107 H 118 H Respiratory Rate 22 24 Blood Pressure [Ri ght Arm] 152/117 H Pulse Oximetry 95 Oxygen Delivery Mt thod Room Air Oxygen Flow Rate 01/08/23 23:00 01/09/23 00:00 01/09/23 01:51 Temperature 97.8 F Pulse Rate Pulse Rate [Left R adial] 124 H 141 H Respiratory Rate 24 24 30 H Blood Pressure [Ri ght Arm] 148/107 H 132/113 H Pulse Oximetry 93 95 92 Oxygen Delivery Me thod Room Air Room Air Room Air Oxygen Flow Rate 01/09/23 02:30 01/09/23 03:00 01/09/23 03:15 Temperature Pulse Rate Pulse Rate [Left R adial] 135 H 144 H Respiratory Rate 24 24 24 Blood Pressure [Ri ght Arm] 144/103 H 133/113 H Pulse Oximetry 92 94 Oxygen Delivery Me thod Room Air Room Air Oxygen Flow Rate 01/09/23 03:21 01/09/23 03:32 01/09/23 03:45 Temperature Pulse Rate 133 H Pulse Rate [Left R adial] 138 H 131 H Respiratory Rate 28 H 26 H Blood Pressure [Ri ght Arm] 158/129 H 138/113 H Pulse Oximetry 92 93 Oxygen Delivery Me thod Room Air Oxygen Flow Rate 01/09/23 04:00 01/09/23 04:30 01/09/23 04:30 Temperature Pulse Rate Pulse Rate [Left R adial] 138 H 111 H Respiratory Rate 24 28 H Blood Pressure [Ri ght Arm] 141/110 H 150/118 H Pulse Oximetry 90 93 Oxygen Delivery Me thod Nasal Cannula Oxygen Flow Rate 3 01/09/23 04:45 01/09/23 05:00 01/09/23 05:03 Temperature 97.2 F L Pulse Rate Pulse Rate [Left R adial] 107 H 114 H 114 H Respiratory Rate 26 H 28 H 28 H Blood Pressure [Ri ght Arm] 145/101 H 162/115 H 162/115 H Pulse Oximetry 93 93 93 Oxygen Delivery Me thod Nasal Cannula Nasal Cannula Nasal Cannula Oxygen Flow Rate 3 3 3 01/09/23 05:15 01/09/23 05:30 01/09/23 05:45 Temperature Pulse Rate Pulse Rate [Left R adial] 97 94 103 H Respiratory Rate Blood Pressure [Ri ght Arm] 147/116 H 150/112 H 143/123 H Pulse Oximetry 93 92 91 Oxygen Delivery Me thod Nasal Cannula Nasal Cannula Nasal Cannula Oxygen Flow Rate 3 2 2 01/09/23 06:00 01/09/23 06:15 01/09/23 06:30 Temperature Pulse Rate Pulse Rate [Left R adial] 92 97 104 H Respiratory Rate Blood Pressure [Ri ght Arm] 158/100 H 137/105 H 150/109 H Pulse Oximetry 93 92 Oxygen Delivery Me thod Nasal Cannula Nasal Cannula Oxygen Flow Rate 2 2 01/09/23 06:45 01/09/23 07:00 01/09/23 07:00 Temperature Pulse Rate Pulse Rate [Left R adial] 91 95 Respiratory Rate 24 Blood Pressure [Ri ght Arm] 144/115 H 142/104 H Pulse Oximetry 92 92 64 L Oxygen Delivery Me thod Nasal Cannula Nasal Cannula Nasal Cannula Oxygen Flow Rate 1 1 1 01/09/23 07:15 01/09/23 13:00 01/09/23 13:51 Temperature Pulse Rate 99 84 Pulse Rate [Left R adial] 95 Respiratory Rate 24 Blood Pressure [Ri ght Arm] Pulse Oximetry Oxygen Delivery Me thod Oxygen Flow Rate Documenting provider has reviewed patient's vital signs: yes Labs Labs: Laboratory Results - last 24 hr 01/08/23 01/09/23 18:22 06:44 WBC 6.38 RBC 4.38 Hgb 10.7 L 10.6 L Hct 34.9 MCV 80 MCH 24 L MCHC 30 L RDW Coeff of Fito 18.3 H Plt Count 207 Neut % (Auto) 72.4 H Lymph % (Auto) 16.0 L Reagan % (Auto) 8.0 Eos % (Auto) 2.5 Baso % (Auto) 0.9 Neut # (Auto) 4.60 Lymph # (Auto) 1.00 Reagan # (Auto) 0.50 Eos # (Auto) 0.16 Baso # (Auto) 0.06 Abs Immat Gran (auto) 0.01 Imm/Tot Granulo (auto) 0.2 INR 2.83 H VBG pH 7.466 H VBG pCO2 32 L VBG pO2 82.9 H VBG HCO3 23 Sodium 141 Potassium 3.0 L Chloride 107 Carbon Dioxide 24 BUN 18 Creatinine 0.4 L Estimated Creat Clear 46.13 Estimated GFR 112 Glucose 161 H Calcium 8.3 L Ionized Calcium Jackie 1.06 L Magnesium 1.8 Total Bilirubin 0.7 AST 121 H ALT 99 H Alkaline Phosphatase 99 Total Protein 6.8 Albumin 4.0 Lab Acknowledgement Test Added
[2023-01-09 14:43] LABS: Blood Urea Nitrogen* 16 mg/dL (7-30); Calcium* 8.9 mg/dL (8.4-10.6); Carbon Dioxide* 27 mmol/L (20-32); Creatinine* 0.5 mg/dL (0.5-1.5); Est. Creatinine Clearance* 46.13; Estimated Glomerular Filt Rate 106 ml/min; Glucose* 198 mg/dL (60-115); Phosphorus* 3.3 mg/dL (2.5-4.5)
--- NOTE | 2023-01-09 14:59 | PC.SOCIAL ---
Social work requested to be present when patient's landlord ([facility]) presented a termination of her lease. Letter in her chart. Letter/Packet left for her in her room. Brandee was somewhat responsive during this meeting. Social work to follow up as needed.
--- NOTE | 2023-01-09 16:11 | PC.NURSE ---
Pt slept at onset of day shift. CIWA scores of 13 triggered 2 mg of IV Ativan @ 1020am and 1328 pm. In addition pt very restless and agitated, c/o pain with movement. She received Dilaudid 2 mg PO @ 1033 and 1339. Please see eMar for scheduled medications provided on day shift. Pt remains in atrial fibrillation, hypertensive and actively withdrawing. Needs assist with all cares and feeding. Calming patch applied with little relief. Pt was visited by 2 representatives of [facility] in [place] and notified of her eviction d/to breach in use of drugs at their facility. SW aware of this change in d/c plan. No family present at this time. Eviction paperwork in manila envelope in patient's room. Pt grunts, moans and becomes restless when her medicine wears off. She discontinued her Left AC IV during Dr. Munoz rounds. Diltiazem gtt continues at 15mg/hr. New bag mixed and verified with Royer Fink Vanessa Oron[place] to DD. Pt drops her right leg off of the bed and twirls it which causes some pink urine intermittently. Pt had two 10 mEq bags of potassium infused over 1 hour each. She drank entire 1st dose of effervescent potassium, however she completed only 1/2 of her second dose before she knocked it onto the floor I don't like the taste of that stuff. Adequate I and O. Report provided to Kanchan Acosta RN for evening shift, pt remains CCU status at this time.
[2023-01-09] MEDS: diphenhydrAMINE 50 MG/ML inj 25 MG IVP (17:19)
[2023-01-09] MEDS: WARFARIN 3 MG TABLET PO (17:35)
[2023-01-09] MEDS: HYDROmorphone 0.5 mg/0.5 ml inj IVP ×2 (18:39→21:44)
--- NOTE | 2023-01-09 20:02 | PC.NURSE ---
End of shift-- Pt oriented to person and year, but is unsure of location at times and is unsure why she is here. Hypertensive with B/Ps 160s/100s, tachycardic with HR in low 100s, occasionally tachypneic but patient is afebrile. SPO2 maintained >90% on RA. She c/o pain in her back this evening which she was unable to rate and was given Dilaudid with apparent relief. CIWAs as high as 13 this evening and pt was given Ativan per protocol. See eMAR for details. LS CTA. Telemetry shows afib with RVR. Diltiazem drip is running at 15mg/hr. She denied nausea, but was unable to eat anything this evening. [place] is patent and draining large amounts of light heriberto urine. 1:1 SILVER at bedside PRN. Report to RAQUEL Bautista.
--- NOTE | 2023-01-09 20:17 | PC.NURSE ---
Got ok from Joe to talk to her daughter Autumn. Updated daughter. Would like to be called if condition changes.
[2023-01-10] VITALS (29 sets, daily range): BP systolic 116–169; BP diastolic 79–139; PULSE 74–111; RESP 20–24; TEMP 35.9–37; O2SAT 89–95
[2023-01-10] MEDS: SODIUM CHLORIDE 0.9 % (FLUSH) 10 ML SYRINGE 5 ML IVF ×4 (00:15→21:28)
[2023-01-10] MEDS: LORazepam 2 MG/ML inj IVP ×10 (00:15→17:04)
[2023-01-10] MEDS: HYDROmorphone 2 MG TABLET PO ×3 (05:05→16:27)
--- NOTE | 2023-01-10 06:44 | PC.NURSE ---
Pt cont to withdrawl. Elevated HR and BP. Restless most of the noc. Has been getting 2mg of Ativan every hr or two for CIWA scores 10 and above. Pt knows her name and thats it at this time. Tele is still Afib with a controlled rate in the low to mid 20's. T & R as needed. received Dilaudid IV once and Dilaudid po once.minimal response to med. cont to watch. [place] draining straw colored urine She did refused her bed time meds several time.
[2023-01-10 06:54] LABS: Hematocrit 40.7 % (33.0-51.0); Hemoglobin* 12.3 gm/dL (12.0-16.0); Mean Corpuscular HGB Conc 30 gm/dL (32-36); Mean Corpuscular Hemoglobin 24 pg (26-34); Mean Corpuscular Volume 80 fL (80-100); Platelet Count* 198 K/uL (140-440); Slide Review Reflex No; White Blood Count* 6.31 K/uL (4.50-11.00)
[2023-01-10 08:01] LABS: Albumin* 4.4 g/dL (3.3-5.0); Chloride* 100 mmol/L (96-114); Sodium* 140 mmol/L (135-149)
[2023-01-10 08:02] LABS: Potassium* 3.2 mmol/L (3.6-5.1)
[2023-01-10 08:04] LABS: Creatinine* 0.5 mg/dL (0.5-1.5); Est. Creatinine Clearance* 46.13; Estimated Glomerular Filt Rate 106 ml/min
[2023-01-10 08:05] LABS: Alanine Aminotransferase* 81 U/L (4-35); Alkaline Phosphatase* 123 U/L (40-150); Aspartate Amino Transferase* 57 U/L (12-35); Bilirubin Direct* 0.3 mg/dL (0.0-0.5); Bilirubin Total* 1.3 mg/dL (0.1-1.5); Blood Urea Nitrogen* 16 mg/dL (7-30); Carbon Dioxide* 28 mmol/L (20-32); Glucose* 178 mg/dL (60-115); Lipase* 107 U/L (23-300); Magnesium* 1.9 mg/dL (1.5-2.6); Phosphorus* 3.7 mg/dL (2.5-4.5); Total Protein* 7.7 g/dL (6.0-8.3)
[2023-01-10 08:08] LABS: C Reactive Protein* 3.2 mg/dL (0.5-1.0)
[2023-01-10] MEDS: SERTRALINE 100 MG TABLET 200 MG PO (08:18)
[2023-01-10] MEDS: ATORVASTATIN CALCIUM 40 MG TABLET PO (08:18)
[2023-01-10] MEDS: METOPROLOL TARTRATE 50 MG TABLET PO ×2 (08:19→21:27)
[2023-01-10] MEDS: OMEPRAZOLE 20 MG CAPSULE DR PO ×2 (08:19→21:27)
[2023-01-10 08:24] LABS: NT Pro B Type NatriureticPept* 3950 pg/mL
[2023-01-10] MEDS: 0.9 % SODIUM CHLORIDE 500 ML 500 ML IV (08:25)
[2023-01-10] MEDS: ACETAMINOPHEN 325 MG TABLET 650 MG PO ×3 (08:32→21:27)
[2023-01-10 08:49] LABS: INR 2.63 (0.91-1.10); Prothrombin Time 29.4 Seconds
[2023-01-10 08:58] LABS: Troponin I* < 0.01 ng/mL (0.01-0.04)
[2023-01-10] MEDS: SOTALOL HCL 120 MG TABLET 60 MG PO (09:42)
[2023-01-10] MEDS: TORSEMIDE 100 MG TABLET 50 MG PO (09:44)
[2023-01-10 10:12] LABS: Lactate* 1.2 mmol/L (0.5-1.9)
[2023-01-10 10:57] LABS: Troponin I* < 0.01 ng/mL (0.01-0.04)
--- NOTE | 2023-01-10 11:09 | REH.PT ---
Per nsg, patient still not medically stable for OT/PT eval. Held evaluation for both PT and OT today and will check on status tomorrow.
[2023-01-10] MEDS: dilTIAZem HCL 125 MG in 0.9 % SODIUM CHLORIDE 100 ml 100 ML 10 MG IVPB (11:56)
--- NOTE | 2023-01-10 13:14 | PM.IMPN1 ---
Progress Note: A&P Assessment and plan (1) Altered mental status: Problem details: - differential diagnosis is broad and includes substance use, including methamphetamine, cocaine, PCP, withdrawal from opiates or benzodiazepines or methamphetamine, encephalopathy, ETOH withdrawal, intracranial process, atypical ACS, serotonin syndrome - admit to CCU on telemetry, urgent head CT (patient now agreeable), follow closely - no concerning symptoms for opiate withdrawal, will continue to watch closely Status: Acute (2) Atrial fibrillation with rapid ventricular response: Problem details: - likely related to acute illness, dehydration - responding to IV Diltiazem, and will attempt to transition to oral diltiazem - on oral Metoprolol as an outpatient, restart this and follow on telemetry - check echocardiogram Status: Acute (3) Polypharmacy: Problem details: This will warrant ongoing management efforts Status: Acute (4) Diabetes mellitus: Problem details: - A1C 7.4 on 10/22/22 - continue home medications with SSI and holding parameters pending po intake Status: Acute (5) Bipolar disorder: Problem details: Obviously this too can be driving her altered mental status state. Status: Acute (6) Hypertension: Problem details: Will attempt transitioning to scheduled oral metoprolol and scheduled diltiazem. Consider adding additional antihypertensive treatment if warranted Status: Acute (7) Microcytic anemia: Problem details: - chronic, likely 2/2 gastric bypass surgery - routine outpatient f/u Status: Acute (8) Hypokalemia: Status: Acute Assessment and Plan: Ongoing potassium supplementation Plan 1. Reviewed impression with patient. 2. Attempt to reach patient's family again. 3. Plantar conditions as specified above. Continue to monitor for now. Very slowly stabilizing. Unclear specifically why she continues to have altered mental status state. Time Spent With Patient Total time spent: 40 minutes Subjective Time Seen by Provider: 07:30 Date Seen: 01/10/23 Interval history: Exerpts from her HPI: 62-year-old lady who was admitted in an unresponsive state earlier on 01/08/2023. She has a history of polysubstance abuse and atrial fibrillation. It was noted that the snf she is living [in] stopped her narcotic medications because of evidence of concurrent alcohol misuse. Patient was found to be in atrial fibrillation with RVR. She also demonstrated signs and symptoms of withdrawal. The patient's RN called ... because the patient has a tendency to become hyperalert and agitated. This appears to contribute to increased tachycardia. Right now she is in atrial fibrillation with a heart rate of about [130-150]. There [has] been no concurrent drop in systolic blood pressure. The patient has been given as needed Ativan and this seems to show evidence that she is less agitated at this time. The RN feels that might be beneficial if we consider a CIWA protocol. We also discussed the probable benefit of starting a Cardizem infusion with heart rate and blood pressure parameters. She is currently on [metoprolol] and as needed IVP doses of metoprolol. This morning she remains sleepy. She is easily arousable. Has some interaction. Still does not answer questions reliably all the time. Remains unable to tell me what transpired in her living setting which ultimately culminated in her being admitted to the hospital. Presently denies chest heaviness, pressure, tightness, or pain. Did have a transient episode of chest pain earlier this morning which subsequently spontaneously resolved. Denies dyspnea. Denies cough. Denies syncope or near-syncope. Denies orthostasis, lightheadedness, vertigo. Denies nausea vomiting. Did eat about 25% of her morning meal. Denies palpitations or chest fluttering with heart rates 100-120 as I evaluate her. Acknowledges a sense of restlessness. Denies other discomforts. Exam Narrative: Exam Narrative: I examine her in her hospital bed in her hospital room. When we finally get her situated she finally looks comfortable otherwise she is restless. Was complaining of back discomfort, which improved with repositioning efforts. Asleep. Easily aroused with call of her name. Oriented to self, in part to time, not oriented to place or situation. Does not speak spontaneously. Responses are short and sometimes not understandable. She expresses gratitude and relief when the patient's nurse and I reposition her in her bed. Neck is supple. Midline trachea. No JVD or hepatojugular reflux. No carotid bruits. Lungs for the most part clear to auscultation. Heart tones with chaotic rhythm. Normal S1-S2. Heart rates 100-120 when I 1st see her this morning. Later in the afternoon her heart rates in the 70s to 100 range. No gallops or rubs. Abdomen obese with active bowel sounds, soft, nontender. No rebound or guarding. Extremities without edema. No focal motor neurologic deficits. Skin is intact. Const: Vital Signs, click to edit/add: Vital Signs - 24 hr 01/09/23 13:30 01/09/23 13:30 01/09/23 13:51 Temperature Pulse Rate 84 Pulse Rate [Left R adial] 81 88 Respiratory Rate 24 24 Blood Pressure [Ri ght Arm] 153/108 H 153/108 H Pulse Oximetry 88 88 Oxygen Delivery Me thod [place] Nasal Ca nnula [place] Nasal Ca nnula Oxygen Flow Rate 1 1 01/09/23 14:00 01/09/23 14:45 01/09/23 15:00 Temperature Pulse Rate Pulse Rate [Left R adial] 85 104 H Respiratory Rate 24 24 Blood Pressure [Ri ght Arm] 152/114 H 151/107 H Pulse Oximetry 95 96 96 Oxygen Delivery Me thod [place] Nasal Ca nnula [place] Nasal Ca nnula [place] Nasal Ca nnula Oxygen Flow Rate 1 1 1 01/09/23 15:00 01/09/23 15:00 01/09/23 15:11 Temperature 98.3 F 98.3 F Pulse Rate 102 H Pulse Rate [Left R adial] 118 H 118 H Respiratory Rate 24 24 Blood Pressure [Ri ght Arm] 146/102 H 146/102 H Pulse Oximetry 96 96 96 Oxygen Delivery Me thod [place] Nasal Ca nnula [place] Nasal Ca nnula Oxygen Flow Rate 1 1 01/09/23 15:15 01/09/23 16:28 01/09/23 16:29 Temperature 98.3 F Pulse Rate 92 Pulse Rate [Left R adial] 91 91 Respiratory Rate 20 20 Blood Pressure [Ri ght Arm] 159/116 H 159/116 H Pulse Oximetry 93 93 Oxygen Delivery Me thod Nasal Cannula Nasal Cannula Oxygen Flow Rate 1 1 01/09/23 17:00 01/09/23 17:00 01/09/23 17:30 Temperature Pulse Rate Pulse Rate [Left R adial] 92 87 123 H Respiratory Rate 18 24 24 Blood Pressure [Ri ght Arm] 136/111 H 136/111 H Pulse Oximetry 93 92 Oxygen Delivery Me thod Room Air Room Air Oxygen Flow Rate 01/09/23 18:00 01/09/23 18:30 01/09/23 19:49 Temperature 97.6 F 97.6 F Pulse Rate Pulse Rate [Left R adial] 103 H 87 Respiratory Rate 24 24 24 Blood Pressure [Ri ght Arm] 166/109 H 171/133 H Pulse Oximetry 92 91 91 Oxygen Delivery Me thod Room Air Room Air Room Air Oxygen Flow Rate 01/09/23 19:50 01/09/23 20:00 01/09/23 22:00 Temperature 97.6 F Pulse Rate 104 H Pulse Rate [Left R adial] 144 H 97 Respiratory Rate 24 22 Blood Pressure [Ri ght Arm] 169/131 H 167/114 H Pulse Oximetry 93 90 Oxygen Delivery Me thod Room Air Room Air Oxygen Flow Rate 01/09/23 22:00 01/09/23 23:00 01/09/23 23:00 Temperature 97.6 F Pulse Rate 101 H Pulse Rate [Left R adial] 94 Respiratory Rate 22 Blood Pressure [Ri ght Arm] 167/114 H Pulse Oximetry 91 91 Oxygen Delivery Me thod Room Air Room Air Oxygen Flow Rate 01/10/23 00:00 01/10/23 01:00 01/10/23 01:00 Temperature 97.6 F 97.6 F Pulse Rate Pulse Rate [Left R adial] 94 92 94 Respiratory Rate 24 22 Blood Pressure [Ri ght Arm] 159/100 H Pulse Oximetry 91 91 Oxygen Delivery Me thod Room Air Room Air Oxygen Flow Rate 01/10/23 02:00 01/10/23 03:00 01/10/23 04:07 Temperature 96.8 F L 97.8 F 97.9 F Pulse Rate Pulse Rate [Left R adial] 107 H 100 92 Respiratory Rate 22 22 22 Blood Pressure [Ri ght Arm] 139/112 H 156/117 H 154/115 H Pulse Oximetry 91 94 91 Oxygen Delivery Me thod Room Air Room Air Room Air Oxygen Flow Rate 01/10/23 05:00 01/10/23 05:00 01/10/23 06:00 Temperature 97.9 F 97.6 F Pulse Rate Pulse Rate [Left R adial] 111 H 111 H 99 Respiratory Rate 22 22 Blood Pressure [Ri ght Arm] 154/115 H 169/112 H Pulse Oximetry 93 94 Oxygen Delivery Me thod Room Air Room Air Oxygen Flow Rate 01/10/23 06:00 01/10/23 07:00 01/10/23 07:00 Temperature 97 F L 97.6 F Pulse Rate Pulse Rate [Left R adial] 94 101 H Respiratory Rate 22 22 Blood Pressure [Ri ght Arm] 169/112 H 156/111 H Pulse Oximetry 92 91 Oxygen Delivery Me thod Room Air Room Air Room Air Oxygen Flow Rate 01/10/23 07:00 01/10/23 08:00 01/10/23 08:00 Temperature 97.7 F Pulse Rate Pulse Rate [Left R adial] 96 111 H 96 Respiratory Rate 22 22 22 Blood Pressure [Ri ght Arm] 164/108 H 164/108 H Pulse Oximetry 95 94 Oxygen Delivery Me thod Room Air Room Air Oxygen Flow Rate 01/10/23 09:00 01/10/23 09:20 01/10/23 10:00 Temperature 98.6 F Pulse Rate 95 Pulse Rate [Left R adial] 103 H 75 Respiratory Rate 20 Blood Pressure [Ri ght Arm] 165/117 H 164/103 H Pulse Oximetry 93 90 Oxygen Delivery Me thod Room Air Room Air Oxygen Flow Rate 01/10/23 10:00 01/10/23 11:00 01/10/23 11:00 Temperature 98.6 F 98.6 F Pulse Rate Pulse Rate [Left R adial] 75 75 75 Respiratory Rate 20 24 24 Blood Pressure [Ri ght Arm] 164/103 H 154/112 H Pulse Oximetry 90 92 Oxygen Delivery Me thod Room Air Room Air Oxygen Flow Rate 0 0 01/10/23 11:15 01/10/23 11:52 01/10/23 12:00 Temperature 97.3 F L Pulse Rate 79 Pulse Rate [Left R adial] 81 83 Respiratory Rate 24 24 Blood Pressure [Ri ght Arm] 145/121 H 164/106 H Pulse Oximetry 94 90 Oxygen Delivery Me thod Room Air Room Air Oxygen Flow Rate 01/10/23 12:00 01/10/23 13:00 Temperature 97.7 F Pulse Rate Pulse Rate [Left R adial] 78 88 Respiratory Rate 22 24 Blood Pressure [Ri ght Arm] 162/125 H 156/120 H Pulse Oximetry 94 91 Oxygen Delivery Me thod Room Air Room Air Oxygen Flow Rate Documenting provider has reviewed patient's vital signs: yes Labs Labs: Laboratory Results - last 24 hr 01/09/23 01/10/23 01/10/23 14:17 06:10 07:42 WBC 6.31 RBC 5.10 Hgb 12.3 Hct 40.7 MCV 80 MCH 24 L MCHC 30 L Plt Count 198 INR 2.63 H Sodium 140 140 Potassium 3.6 3.2 L Chloride 100 100 Carbon Dioxide 27 28 BUN 16 16 Creatinine 0.5 0.5 Estimated Creat Clear 46.13 46.13 Estimated GFR 106 106 Glucose 198 H 178 H Lactate 2.0 H Calcium 8.9 9.0 Phosphorus 3.3 3.7 Magnesium 1.9 Total Bilirubin 1.3 Direct Bilirubin 0.3 AST 57 H ALT 81 H Alkaline Phosphatase 123 Troponin I < 0.01 L C-Reactive Protein 3.2 H NT-Pro-B Natriuret Pep 3950 Total Protein 7.7 Albumin 4.5 4.4 Lipase 107 TSH 1.300 Lab Acknowledgement Test Added 01/10/23 01/10/23 07:55 10:05 WBC RBC Hgb Hct MCV MCH MCHC Plt Count INR Sodium Potassium Chloride Carbon Dioxide BUN Creatinine Estimated Creat Clear Estimated GFR Glucose Lactate 1.2 Calcium Phosphorus Magnesium Total Bilirubin Direct Bilirubin AST ALT Alkaline Phosphatase Troponin I < 0.01 L C-Reactive Protein NT-Pro-B Natriuret Pep Total Protein Albumin Lipase TSH Lab Acknowledgement Test Added
[2023-01-10] MEDS: dilTIAZem 120 MG CAP.ER.24H PO (14:59)
[2023-01-10] MEDS: dilTIAZem 30 MG TABLET PO (17:15)
--- NOTE | 2023-01-10 19:22 | PC.NURSE ---
End of shift-- VSS. Pt hypertensive and tachycardic early on this shift, which improved this afternoon and Cardizem drip was discontinued. This evening pt has become increasingly tachycardic and hypertensive. MD was notified and pt was given PO Cardizem per MD order. CIWAs from 5-13 and pt was given Ativan per protocol. At times drowsy but arousable to name and at other times restless. Pt is oriented to person and year only. Primarily pleasant and cooperative, but occasionally pt appears angry. This morning pt was much more alert for a while and was up to the chair with assist of 2, belt and walker. She tolerated it well, but did appear to fall asleep on her feet longterm to the chair. Telemetry shows atrial fibrillation. LS clear but diminished. Orona is patent and drained large amounts of clear, yellow urine this shift. Report to RAQUEL Bautista.
[2023-01-11] VITALS (29 sets, daily range): BP systolic 114–164; BP diastolic 84–132; PULSE 86–157; RESP 18–35; TEMP 35.7–36.6; O2SAT 93–100
[2023-01-11] MEDS: LORazepam 2 MG/ML inj IVP ×8 (01:30→21:09)
--- NOTE | 2023-01-11 06:17 | PC.NURSE ---
Pt has been pleasant and cooperative. Up with 2 asist tothe commode and did have a moderate formed stool. Up in the chair earlier this am and tolerated that well . Is back in bed at this time. Yeyo put out 450 of urine this shift. She is much clearer this am. She adanmently wants to go home. But does remember she cant go back to [facility],
[2023-01-11 06:58] LABS: HCO3 VBG 26 mmol/L (21-28); PCO2 VBG 36 mmHG (40-50); pH VBG 7.457 (7.32-7.43)
[2023-01-11 07:01] LABS: Lactate* 1.8 mmol/L (0.5-1.9); PO2 VBG 73.2 mmHG (25-47)
[2023-01-11 07:08] LABS: Hematocrit 43.1 % (33.0-51.0); Hemoglobin* 13.2 gm/dL (12.0-16.0); Mean Corpuscular HGB Conc 31 gm/dL (32-36); Mean Corpuscular Hemoglobin 24 pg (26-34); Mean Corpuscular Volume 79 fL (80-100); Platelet Count* 224 K/uL (140-440); Red Blood Count 5.45 m/uL (4.00-5.20)
[2023-01-11 07:16] LABS: Slide Review Reflex No
[2023-01-11 07:24] LABS: D Dimer Quantitative* 0.52 ug/ml (0.00-0.50)
[2023-01-11 07:30] LABS: Chloride* 98 mmol/L (96-114); Potassium* 3.4 mmol/L (3.6-5.1); Sodium* 136 mmol/L (135-149)
[2023-01-11 07:33] LABS: Creatinine* 0.6 mg/dL (0.5-1.5); Est. Creatinine Clearance* 46.13; Estimated Glomerular Filt Rate 101 ml/min
[2023-01-11 07:34] LABS: Blood Urea Nitrogen* 21 mg/dL (7-30); Calcium* 8.9 mg/dL (8.4-10.6); Carbon Dioxide* 25 mmol/L (20-32); Glucose* 191 mg/dL (60-115); Phosphorus* 4.8 mg/dL (2.5-4.5)
[2023-01-11 07:35] LABS: Magnesium* 1.7 mg/dL (1.5-2.6)
[2023-01-11 07:37] LABS: C Reactive Protein* 2.2 mg/dL (0.5-1.0)
[2023-01-11] MEDS: dilTIAZem 30 MG TABLET 60 MG PO ×3 (07:38→20:19)
[2023-01-11 07:50] LABS: Procalcitonin* 0.08 ng/mL (<0.50)
[2023-01-11 07:51] LABS: NT Pro B Type NatriureticPept* 2670 pg/mL
[2023-01-11] MEDS: METOPROLOL TARTRATE 1 MG/ML inj 5 MG IVP ×2 (08:05→17:35)
[2023-01-11] MEDS: METOPROLOL TARTRATE 50 MG TABLET PO ×2 (09:36→21:05)
[2023-01-11] MEDS: METFORMIN 500 MG TABLET PO ×2 (09:36→21:05)
[2023-01-11] MEDS: ACETAMINOPHEN 325 MG TABLET 650 MG PO ×3 (09:36→21:04)
[2023-01-11] MEDS: OMEPRAZOLE 20 MG CAPSULE DR PO ×2 (09:37→21:05)
[2023-01-11] MEDS: SERTRALINE 100 MG TABLET 200 MG PO (09:37)
[2023-01-11] MEDS: TORSEMIDE 100 MG TABLET 50 MG PO (09:38)
[2023-01-11] MEDS: SODIUM CHLORIDE 0.9 % (FLUSH) 10 ML SYRINGE 5 ML IVF ×2 (09:38→21:07)
[2023-01-11] MEDS: ATORVASTATIN CALCIUM 40 MG TABLET PO (09:38)
[2023-01-11] MEDS: SOTALOL HCL 120 MG TABLET 60 MG PO ×2 (09:40→21:07)
[2023-01-11 10:07] LABS: INR 2.36 (0.91-1.10)
--- NOTE | 2023-01-11 12:16 | REH.PT ---
Pt refused PT eval in the AM, asleep this PM. Will reattempted eval tomorrow.
--- NOTE | 2023-01-11 12:37 | PC.NURSE ---
Patient's daughter was here and reported to the hospitalist that patient had obtained some ketamine cream and was inserting this cream rectally. Hospitalist had me contact poison control regarding this matter to see what withdrawal we might be dealing with. Poison control looked it up and said giving the patient benzodiazepine is what treatment would be for this. Explained to poison control her symptoms are similar to alcohol withdrawal and she agreed they would be but the cream would clear 4-8 hours. Explained that patient has been here since 01/08 and hasn't had any ketamine cream since before her arrival here. She explain as time passes she should be more coherent. Information was passed to Hospitalist. Poison control did give a case # [id number]
--- NOTE | 2023-01-11 13:14 | REH.OT ---
Pt alseep this PM with OT attempt to eval. Pt refused PT eval this am. Will attempt therapies again tomorrow.
--- NOTE | 2023-01-11 16:11 | P.IMPN_ITS ---
Progress Note: A&P Assessment and plan (1) Altered mental status: Problem details: - differential diagnosis is broad and includes substance use, including methamphetamine, cocaine, PCP, withdrawal from opiates or benzodiazepines or methamphetamine, encephalopathy, ETOH withdrawal, intracranial process, atypical ACS, serotonin syndrome. On 01/11/2023 we learned that patient has been administering ketamine topical lotion via her rectum for some time. [facility], [place], indicated that it is possible that her current condition is a reflection of her withdrawal from the ketamine she has been self administering in this fashion. - admit to CCU on telemetry, urgent head CT (patient now agreeable), follow closely - no concerning symptoms for opiate withdrawal, will continue to watch closely Status: Acute (2) Atrial fibrillation with rapid ventricular response: Problem details: - likely related to acute illness, dehydration - responding to IV Diltiazem, and will attempt to transition to oral diltiazem - on oral Metoprolol as an outpatient, restart this and follow on telemetry - check echocardiogram Status: Acute (3) Polypharmacy: Problem details: This will warrant ongoing management efforts Status: Acute (4) Diabetes mellitus: Problem details: - A1C 7.4 on 10/22/22 - continue home medications with SSI and holding parameters pending po intake Status: Acute (5) Bipolar disorder: Problem details: Obviously this too can be driving her altered mental status state. Status: Acute (6) Hypertension: Problem details: Will attempt transitioning to scheduled oral metoprolol and scheduled diltiazem. Consider adding additional antihypertensive treatment if warranted Status: Acute (7) Microcytic anemia: Problem details: - chronic, likely 2/2 gastric bypass surgery - routine outpatient f/u Status: Acute (8) Hypokalemia: Status: Acute Plan 1. Reviewed impression with patient and daughter. Answered their questions. 2. Continue with efforts to keep patient stable. 3. Continue to work with poison Control as warranted. Time Spent With Patient Total time spent: 45 minutes Subjective Time Seen by Provider: 13:00 Date Seen: 01/11/23 Interval history: Exerpts from her HPI: 62-year-old lady who was admitted in an unresponsive state earlier on 01/08/2023. She has a history of polysubstance abuse and atrial fibrillation. It was noted that the senior living she is living [in] stopped her narcotic medications because of evidence of concurrent alcohol misuse. Patient was found to be in atrial fibrillation with RVR. She also demonstrated signs and symptoms of withdrawal. The patient's RN called ... because the patient has a tendency to become hyperalert and agitated. This appears to contribute to increased tachycardia. Right now she is in atrial fibrillation with a heart rate of about [130-150]. There [has] been no concurrent drop in systolic blood pressure. The patient has been given as needed Ativan and this seems to show evidence that she is less agitated at this time. The RN feels that might be beneficial if we consider a CIWA protocol. We also discussed the probable benefit of starting a Cardizem infusion with heart rate and blood pressure parameters. She is currently on [metoprolol] and as needed IVP doses of metoprolol. Patient more awake and interactive. I visit the patient often on throughout the day today. This afternoon when I visit the patient, her daughter, Autumn, is with her mother as well. Autumn informs me that she and her sister are very suspicious that her mother has been administering ketamine lotion, intended for topical use, via rectum. Medardo sister informed Autumn that her mother had divulge this to her. When Autumn confronted her mother about this her mother laughed, in fashion typical of her mother when she is not speaking the truth. We subsequently call and discuss this with the poison Control staff for the [facility]. 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 Patient able to identify her daughter and 2 grandchildren that are with her today. Patient able to indicate when she is hungry and thirsty and needs to go to the bathroom in an appropriate fashion. Denies other pains or concerns. Exam Narrative: Exam Narrative: I examined the patient multiple times throughout the day in her hospital room. Patient still on telemetry. Patient's AFib RVR worsened overnight. She is responding to oral negative chronotropic agent administration efforts. For while AFib RVR rate was 120-140. More recently heart rates 80-110. Heart rates do increase with activity. Vision and hearing are grossly normal. When she is awake, she is alert and oriented to self, place, not so much to time or situation. She is articulate, cooperative. Still not entirely oriented. At times speaks nonsensically. Level in awareness and i interactiveness is vastly improved today compared to yesterday. Lungs remain clear to auscultation. Heart tones chaotic. Abdomen with active bowel sounds, soft. Able to eat and drink safely. Transfers with assist. No focal motor neurologic deficits. Const: Vital Signs, click to edit/add: Vital Signs - 24 hr 01/10/23 16:58 01/10/23 18:00 01/10/23 18:00 Temperature 97.1 F L 97.1 F L Pulse Rate Pulse Rate [Left R adial] 105 H 104 H 104 H Respiratory Rate 20 20 20 Blood Pressure [Le ft Arm] 164/138 H 164/118 H 164/118 H Blood Pressure [Ri ght Arm] Pulse Oximetry 93 93 93 Oxygen Delivery Me thod Room Air Room Air Room Air Oxygen Flow Rate 0 01/10/23 19:00 01/10/23 19:00 01/10/23 22:00 Temperature 98 F Pulse Rate Pulse Rate [Left R adial] 108 H 106 H 96 Respiratory Rate 20 22 Blood Pressure [Le ft Arm] 134/100 H 146/121 H Blood Pressure [Ri ght Arm] Pulse Oximetry 93 93 Oxygen Delivery Me thod Room Air Room Air Oxygen Flow Rate 01/10/23 23:00 01/10/23 23:30 01/11/23 00:00 Temperature 98 F Pulse Rate 107 H Pulse Rate [Left R adial] 95 Respiratory Rate 22 22 Blood Pressure [Le ft Arm] 158/128 H Blood Pressure [Ri ght Arm] Pulse Oximetry 95 93 Oxygen Delivery Me thod Room Air Room Air Oxygen Flow Rate 01/11/23 02:00 01/11/23 03:00 01/11/23 04:00 Temperature 98 F 98 F 98 F Pulse Rate Pulse Rate [Left R adial] 106 H 107 H Respiratory Rate 20 22 22 Blood Pressure [Le ft Arm] 148/103 H 155/118 H 137/116 H Blood Pressure [Ri ght Arm] Pulse Oximetry 94 95 95 Oxygen Delivery Me thod Room Air Room Air Room Air Oxygen Flow Rate 01/11/23 05:00 01/11/23 06:00 01/11/23 06:00 Temperature 98 F 98 F 98 F Pulse Rate Pulse Rate [Left R adial] 125 H 147 H 147 H Respiratory Rate 22 22 22 Blood Pressure [Le ft Arm] 138/97 H 147/126 H 147/126 H Blood Pressure [Ri ght Arm] 119/84 Pulse Oximetry 95 98 94 Oxygen Delivery Me thod Room Air Room Air Room Air Oxygen Flow Rate 01/11/23 06:03 01/11/23 07:00 01/11/23 07:00 Temperature 98 F Pulse Rate 157 H Pulse Rate [Left R adial] 147 H Respiratory Rate 22 26 H Blood Pressure [Le ft Arm] 147/126 H Blood Pressure [Ri ght Arm] 119/84 Pulse Oximetry 98 94 Oxygen Delivery Me thod Room Air Room Air Oxygen Flow Rate 01/11/23 07:33 01/11/23 08:00 01/11/23 09:00 Temperature 97.6 F Pulse Rate Pulse Rate [Left R adial] 130 H 132 H 112 H Respiratory Rate 26 H 24 22 Blood Pressure [Le ft Arm] 144/105 H 164/132 H 157/102 H Blood Pressure [Ri ght Arm] Pulse Oximetry 95 96 95 Oxygen Delivery Me thod Room Air Room Air Room Air Oxygen Flow Rate 0 01/11/23 10:00 01/11/23 10:00 01/11/23 11:00 Temperature 97.6 F 96.3 F L Pulse Rate Pulse Rate [Left R adial] 94 94 89 Respiratory Rate 18 18 24 Blood Pressure [Le ft Arm] 135/118 H 135/118 H 142/119 H Blood Pressure [Ri ght Arm] 119/84 Pulse Oximetry 93 93 95 Oxygen Delivery Me thod Room Air Room Air Room Air Oxygen Flow Rate 0 01/11/23 11:00 01/11/23 11:00 01/11/23 11:56 Temperature Pulse Rate 99 Pulse Rate [Left R adial] 113 H 110 H Respiratory Rate 24 20 Blood Pressure [Le ft Arm] 133/107 H Blood Pressure [Ri ght Arm] Pulse Oximetry 96 Oxygen Delivery Me thod Room Air Oxygen Flow Rate 01/11/23 12:00 01/11/23 12:51 01/11/23 14:00 Temperature Pulse Rate Pulse Rate [Left R adial] 114 H 113 H 98 Respiratory Rate 24 24 22 Blood Pressure [Le ft Arm] 146/125 H 146/125 H 123/109 H Blood Pressure [Ri ght Arm] Pulse Oximetry 96 95 96 Oxygen Delivery Me thod Room Air Room Air Room Air Oxygen Flow Rate 01/11/23 15:00 01/11/23 15:00 01/11/23 15:00 Temperature 97.6 F Pulse Rate Pulse Rate [Left R adial] 101 H 101 H Respiratory Rate 35 H 35 H 35 H Blood Pressure [Le ft Arm] 130/126 H Blood Pressure [Ri ght Arm] 119/84 Pulse Oximetry 100 95 Oxygen Delivery Me thod Room Air Room Air Oxygen Flow Rate 0 01/11/23 15:36 Temperature 97.6 F Pulse Rate Pulse Rate [Left R adial] 101 H Respiratory Rate 35 H Blood Pressure [Le ft Arm] 130/126 H Blood Pressure [Ri ght Arm] Pulse Oximetry 100 Oxygen Delivery Me thod Room Air Oxygen Flow Rate Documenting provider has reviewed patient's vital signs: yes Labs Labs: Laboratory Results - last 24 hr 01/11/23 06:22 WBC 9.90 RBC 5.45 H Hgb 13.2 Hct 43.1 MCV 79 L MCH 24 L MCHC 31 L Plt Count 224 INR 2.36 H D-Dimer Quant (PE/DVT) 0.52 H VBG pH 7.457 H VBG pCO2 36 L VBG pO2 73.2 H VBG HCO3 26 Sodium 136 Potassium 3.4 L Chloride 98 Carbon Dioxide 25 BUN 21 Creatinine 0.6 Estimated Creat Clear 46.13 Estimated GFR 101 Glucose 191 H Lactate 1.8 Calcium 8.9 Phosphorus 4.8 H Magnesium 1.7 C-Reactive Protein 2.2 H NT-Pro-B Natriuret Pep 2670 Procalcitonin 0.08
[2023-01-11] MEDS: WARFARIN 3 MG TABLET PO (16:48)
[2023-01-11] MEDS: dilTIAZem 120 MG CAP.ER.24H PO (16:48)
[2023-01-11] MEDS: LORazepam 2 MG/ML inj 0.5 MG IVP (18:29)
--- NOTE | 2023-01-11 19:37 | PC.NURSE ---
End of [id number]-- Pt more alert today and pleasant. She remains delirious, but was oriented to person, place and year today. Pt tachycardic this morning with HR noted as high as 150s-170s and MD was notified. Pt given PO Cardizem and IVP metoprolol. Pt remained tachycardic afterward, but with HR from 100-120. Hypertensive. Eupneic and afebrile. SPO2 maintained >94% on RA. CIWAs from 3-14 today and pt was given a total of 6mg Ativan per protocol. See eMAR for details. LS CTA. BS+ x4, pt denied nausea and had an XL loose BM today. She was up to the chair and commode today with assist of 2 and walker and required a great deal of direction. Telemetry shows afib with RVR. Daughter was updated at bedside today and all questions were answered. Per report from charge nurse, poison control was contacted per MD request and recommendations were to continue current treatment plan. Report to RAQUEL Quintero.
--- NOTE | 2023-01-11 20:02 | PC.NURSE ---
Nursing Care Hours: [id number] Pt this shift agitated and restless. CIWA being done hourly, treated per protocol. Treatment effective at calming pt and decreasing withdrawal symptoms. When pt calm, appears oriented to self and place and some situations. She knows that she can no longer go back to [facility] and that staff took away my meds. Pt reported to daughter over the phone that she had an echo done and that she was getting Ativan. [place] patent, draining clear yellow u/o. IV was leaking, redressed and patent. Insulin given per sliding scale. Stable on room air.
[2023-01-11] MEDS: POTASSIUM BICARB 25 MEQ EFFERVESCENT TAB PO (20:19)
[2023-01-11] MEDS: HYDROmorphone 2 MG TABLET PO (20:20)
--- NOTE | 2023-01-11 23:23 | PC.NURSE ---
SHIFT NOTE 19-23: Pt CIWA 11 around 2100, PRN Ativan given and effective. Pt up 2 assist with a walker, moves well but is hard to direct, back and forth from recliner to bed x1. [place] patent and draining. Pt with a 1:1 sitter this shift.
[2023-01-12] VITALS (28 sets, daily range): BP systolic 104–160; BP diastolic 78–123; PULSE 76–133; RESP 16–22; TEMP 35.5–36.6; O2SAT 92–100
[2023-01-12] MEDS: dilTIAZem 30 MG TABLET 60 MG PO ×3 (01:14→12:57)
[2023-01-12] MEDS: LORazepam 1 MG TABLET PO ×3 (01:14→12:57)
--- NOTE | 2023-01-12 02:27 | P.IMPN_ITS ---
Subjective Time Seen by Provider: 03:04 Date Seen: 01/12/23 Interval history: [facility] Progress Note. The local provider initiating contact: RAQUEL Vines. Purpose of contact: Rapid Response HPI: This patient is a 62-year-old lady admitted on 01/09/2020 with altered menta tion and signs and symptoms of withdrawal. She has history of polysubstance abuse including amphetamines, narcotics, and alcohol. She has a history of atrial fibrillation and had RVR on presentation. She remains on a CIWA protocol. She has had variable heart rate levels due to atrial fibrillation. She has not been hypotensive. And there is no evidence that she is experiencing chest pain or other abnormalities associated with the change in her heart rate. The RN rosa notes that the patient has been awake and experiencing episodes of less alert states. She complained of chest pain and her vital signs educated a rapid ventricular rate, [facility] An E[facility] was performed which showes atrial fibrillation with a rate of 109 bpm. The axis is -25 (moderate LVH). The QTc is 548 (prolonged), and persisting ST segment depression is noted anterolaterally. Pertinent information was reviewed and gathered from the patient's hospital chart. VITAL SIGNS: T 97.1. P 103. RR 22. BP 148/107. SPO2 95%. FIO2 room air. GENERAL APPEARANCE: Patient is somnolent but responds to voice and tactile stimuli and does wake up to answer very brief simple questions. She claims no pain at this time. No labored respirations are seen. HEENT: Facial features are symmetric. Mucous membranes are generally normal- appearing. NECK: Supple. No JVD is seen CHEST: Normal respiratory motion seen. LUNGS: The anterior lung carey are clear without rales, wheezes, and coarse rhonchi. HEART: The rhythm is irregularly irregular. No murmurs are heard. ABDOMEN: Soft and nontender. EXTREMITIES: 1/4 bilateral lower leg edema is noted. SKIN: No discoloration. No rashes. No primary skin lesions. NEUROLOGICAL: The patient is spontaneously moving all 4 extremities. No tremors or myoclonus are seen. Assessment: 1. Chest pain. Pain is currently resolved. 2. Atrial fibrillation with RVR. 3. Prolonged QTc on the latest EKG. 2. Withdrawal syndrome. 3. History of polysubstance abuse. Plans: 1. Troponin I level now. 2. Complete physical exam now. 3. Repeat troponin level in 3 hours. Recommendations: 1. Consider restarting a diltiazem infusion as patient has continuous or prolonged episodes of tachycardia with heart rates greater than 120. I have reviewed this case in consultation. Information has been gathered from conversations with the local provider, a review of the patient's chart, and by [facility] Thank you for including [facility] in the patient's care. This service is available for further assistance as requested by your care team by calling [phone]. Exam Const: Vital Signs, click to edit/add: Vital Signs - 24 hr 01/11/23 03:00 01/11/23 04:00 01/11/23 05:00 Temperature 98 F 98 F 98 F Pulse Rate Pulse Rate [Left R adial] 107 H 125 H Respiratory Rate 22 22 22 Blood Pressure [Le ft Arm] 155/118 H 137/116 H 138/97 H Blood Pressure [Ri ght Arm] 119/84 Pulse Oximetry 95 95 95 Oxygen Delivery Me thod Room Air Room Air Room Air Oxygen Flow Rate 01/11/23 06:00 01/11/23 06:00 01/11/23 06:03 Temperature 98 F 98 F 98 F Pulse Rate Pulse Rate [Left R adial] 147 H 147 H 147 H Respiratory Rate 22 22 22 Blood Pressure [Le ft Arm] 147/126 H 147/126 H 147/126 H Blood Pressure [Ri ght Arm] 119/84 Pulse Oximetry 98 94 98 Oxygen Delivery Me thod Room Air Room Air Room Air Oxygen Flow Rate 01/11/23 07:00 01/11/23 07:00 01/11/23 07:33 Temperature 97.6 F Pulse Rate 157 H Pulse Rate [Left R adial] 130 H Respiratory Rate 26 H 26 H Blood Pressure [Le ft Arm] 144/105 H Blood Pressure [Ri ght Arm] Pulse Oximetry 94 95 Oxygen Delivery Me thod Room Air Room Air Oxygen Flow Rate 01/11/23 08:00 01/11/23 09:00 01/11/23 10:00 Temperature Pulse Rate Pulse Rate [Left R adial] 132 H 112 H 94 Respiratory Rate 24 22 18 Blood Pressure [Le ft Arm] 164/132 H 157/102 H 135/118 H Blood Pressure [Ri ght Arm] Pulse Oximetry 96 95 93 Oxygen Delivery Me thod Room Air Room Air Room Air Oxygen Flow Rate 0 01/11/23 10:00 01/11/23 11:00 01/11/23 11:00 Temperature 97.6 F 96.3 F L Pulse Rate 99 Pulse Rate [Left R adial] 94 89 Respiratory Rate 18 24 Blood Pressure [Le ft Arm] 135/118 H 142/119 H Blood Pressure [Ri ght Arm] 119/84 Pulse Oximetry 93 95 Oxygen Delivery Me thod Room Air Room Air Oxygen Flow Rate 0 01/11/23 11:00 01/11/23 11:56 01/11/23 12:00 Temperature Pulse Rate Pulse Rate [Left R adial] 113 H 110 H 114 H Respiratory Rate 24 20 24 Blood Pressure [Le ft Arm] 133/107 H 146/125 H Blood Pressure [Ri ght Arm] Pulse Oximetry 96 96 Oxygen Delivery Me thod Room Air Room Air Oxygen Flow Rate 01/11/23 12:51 01/11/23 14:00 01/11/23 15:00 Temperature 97.6 F Pulse Rate Pulse Rate [Left R adial] 113 H 98 101 H Respiratory Rate 24 22 35 H Blood Pressure [Le ft Arm] 146/125 H 123/109 H 130/126 H Blood Pressure [Ri ght Arm] 119/84 Pulse Oximetry 95 96 100 Oxygen Delivery Me thod Room Air Room Air Room Air Oxygen Flow Rate 0 01/11/23 15:00 01/11/23 15:00 01/11/23 15:36 Temperature 97.6 F Pulse Rate Pulse Rate [Left R adial] 101 H 101 H Respiratory Rate 35 H 35 H 35 H Blood Pressure [Le ft Arm] 130/126 H Blood Pressure [Ri ght Arm] Pulse Oximetry 95 100 Oxygen Delivery Me thod Room Air Room Air Oxygen Flow Rate 01/11/23 16:38 01/11/23 18:50 01/11/23 19:00 Temperature Pulse Rate Pulse Rate [Left R adial] 86 90 90 Respiratory Rate 26 H 25 H 25 H Blood Pressure [Le ft Arm] 114/104 H 124/85 124/85 Blood Pressure [Ri ght Arm] Pulse Oximetry 97 99 99 Oxygen Delivery Me thod Room Air Room Air Room Air Oxygen Flow Rate 0 01/11/23 19:50 01/11/23 21:00 01/11/23 22:32 Temperature 97.2 F L 97.3 F L Pulse Rate 100 Pulse Rate [Left R adial] 101 H 86 Respiratory Rate 20 20 Blood Pressure [Le ft Arm] 133/97 H Blood Pressure [Ri ght Arm] 139/95 H Pulse Oximetry 99 98 Oxygen Delivery [place] thod Room Air Room Air Oxygen Flow Rate 0 0 01/11/23 23:00 01/11/23 23:00 01/11/23 23:06 Temperature 97.4 F L Pulse Rate 91 Pulse Rate [Left R adial] 86 Respiratory Rate 22 20 Blood Pressure [Le ft Arm] Blood Pressure [Ri ght Arm] 124/98 H Pulse Oximetry 97 99 [facility] Room Air Oxygen Flow Rate 0 01/11/23 23:13 01/11/23 23:36 01/12/23 00:00 Temperature 97.5 F L 97.5 F L Pulse Rate Pulse Rate [Left R adial] 87 87 103 H Respiratory Rate 22 22 20 Blood Pressure [Le ft Arm] Blood Pressure [Ri ght Arm] 134/107 H 134/107 H 135/111 H Pulse Oximetry 97 97 98 Oxygen Delivery [place] thod Room Air Room Air Room Air Oxygen Flow Rate 01/12/23 01:08 01/12/23 02:00 Temperature 96.8 F L 97.1 F L Pulse Rate Pulse Rate [Left R adial] 103 H 97 Respiratory Rate 20 22 Blood Pressure [Le ft Arm] Blood Pressure [Ri ght Arm] 105/78 127/91 H Pulse Oximetry 96 95 Oxygen Delivery Me thod Room Air Room Air Oxygen Flow Rate Labs Labs: Laboratory Results - last 24 hr 01/11/23 06:22 WBC 9.90 RBC 5.45 H Hgb 13.2 Hct 43.1 MCV 79 L MCH 24 L MCHC 31 L Plt Count 224 INR 2.36 H D-Dimer Quant (PE/DVT) 0.52 H VBG pH 7.457 H VBG pCO2 36 L VBG pO2 73.2 H VBG HCO3 26 Sodium 136 Potassium 3.4 L Chloride 98 Carbon Dioxide 25 BUN 21 Creatinine 0.6 Estimated Creat Clear 46.13 Estimated GFR 101 Glucose 191 H Lactate 1.8 Calcium 8.9 Phosphorus 4.8 H Magnesium 1.7 C-Reactive Protein 2.2 H NT-Pro-B Natriuret Pep 2670 Procalcitonin 0.08
[2023-01-12] MEDS: SODIUM CHLORIDE 0.9 % (FLUSH) 10 ML SYRINGE 5 ML IVF ×4 (03:04→20:49)
[2023-01-12] MEDS: LORazepam 2 MG/ML inj IVP ×3 (03:04→07:05)
[2023-01-12 03:08] LABS: Troponin I* < 0.01 ng/mL (0.01-0.04)
[2023-01-12] MEDS: METOPROLOL TARTRATE 1 MG/ML inj 5 MG IVP ×2 (05:15→18:10)
--- NOTE | 2023-01-12 06:44 | PC.NURSE ---
[id number]: Patient restless and confused. CIWA's ranging from 5-12 with Ativan administered according to protocol. Patient repeatedly asking for more Ativan. Patient educated on importance of following protocol. A2/walker/GB. at 0130 patient c/o chest pain. EKG done, Bernabe updated, BP 127/91. Bernabe assessed patient at 0230 via iPad. See orders. PRN Metoprolol administered for [id number]'s. Low urine output in [place] Cath, fluids encouraged.
[2023-01-12 06:50] LABS: Hematocrit 45.3 % (33.0-51.0); Hemoglobin* 13.9 gm/dL (12.0-16.0); Mean Corpuscular HGB Conc 31 gm/dL (32-36); Mean Corpuscular Hemoglobin 24 pg (26-34); Mean Corpuscular Volume 78 fL (80-100); Platelet Count* 290 K/uL (140-440); Red Blood Count 5.79 m/uL (4.00-5.20); White Blood Count* 11.51 K/uL (4.50-11.00)
[2023-01-12 07:04] LABS: Potassium* 3.1 mmol/L (3.6-5.1)
[2023-01-12 07:10] LABS: C Reactive Protein* 2.3 mg/dL (0.5-1.0)
[2023-01-12 07:13] LABS: INR 2.86 (0.91-1.10); Prothrombin Time 31.4 Seconds
[2023-01-12 07:27] LABS: Troponin I* < 0.01 ng/mL (0.01-0.04)
[2023-01-12 07:33] LABS: Slide Review Reflex No
[2023-01-12] MEDS: METOPROLOL TARTRATE 50 MG TABLET PO (08:19)
[2023-01-12] MEDS: TORSEMIDE 100 MG TABLET 50 MG PO (08:20)
[2023-01-12] MEDS: SOTALOL HCL 120 MG TABLET 60 MG PO (08:20)
[2023-01-12] MEDS: OMEPRAZOLE 20 MG CAPSULE DR PO ×2 (08:26→20:48)
[2023-01-12] MEDS: CALCIUM CARBONATE 500 MG CHEW PO ×2 (08:30→18:10)
--- NOTE | 2023-01-12 08:30 | PC.NURSE ---
MD notifed that BP is 160/120, HR is 130-160s, pt very restless and complaining of severe heartburn and bloating. PRN tums given, scheduled meds given.
[2023-01-12] MEDS: ACETAMINOPHEN 325 MG TABLET 650 MG PO ×4 (09:50→20:48)
[2023-01-12] MEDS: ATORVASTATIN CALCIUM 40 MG TABLET PO (09:51)
[2023-01-12] MEDS: METFORMIN 500 MG TABLET PO ×2 (09:51→20:48)
[2023-01-12] MEDS: SERTRALINE 100 MG TABLET 200 MG PO (09:52)
--- NOTE | 2023-01-12 10:30 | PC.NURSE ---
notified that patient has had 3 loose, foul smelling BMs. Order for cdiff, collected and sent to lab.
[2023-01-12 10:41] LABS: Magnesium* 1.7 mg/dL (1.5-2.6)
[2023-01-12] MEDS: SOTALOL HCL 80 MG TABLET 60 MG PO (11:30)
[2023-01-12] MEDS: POTASSIUM CHLORIDE 10 MEQ CAPSULE ER 40 MEQ PO ×2 (11:30→15:10)
[2023-01-12 11:48] LABS: C.Difficile Negative (Negative); CDIFFEPI 027 PRESUMPTIVE NEGATIVE (Negative)
--- NOTE | 2023-01-12 12:41 | NUTR.NU ---
RDN visited with patient in room on this day to discuss acceptance of ONS. Per gauger chief, patient has been eating on average 0-25% of meals since 01/09/23. Patient did not order a breakfast tray this morning. Patient reports not getting Enlive BID. RDN will re-order Enlive BID and notify culinary services and nursing staff of supplement order. Patient continues to be accepting of Enlive BID in between meals d/t poor oral intakes. Ensure Enlive BID daily provides ~700 kcals and ~40 grams protein. Per weight records, weight is down 11lbs in ~1 day with current weight at 203lbs 01/12/23 and weight of 214lbs on 01/11/23. RDN will request re-weight from nursing. RDN will continue to monitor ONS acceptance, weight, and lab values.
[2023-01-12] MEDS: 0.9 % SODIUM CHLORIDE 1000 ml 1,000 ML IV (12:54)
[2023-01-12] MEDS: LOPERAMIDE HCL 2 MG CAPSULE 4 MG PO (12:58)
--- NOTE | 2023-01-12 13:45 | PC.NURSE ---
End of shift note: Patient has been up to bedside commode 8 times this shift. Has had 4 large, loose, foul smelling BMs. Cdiff was sent and this came back negative. Did receive 1 dose of Imodium. BP and HR have been elevated most of shift. Med adjustments were made. CIWAs have been q1h as pt is still requiring lorazepam. Level of consciousness has fluctuated throughout the day. It was reported that she was up most of the night. She did complain if a bloated stomach and heart burn this morning. Omeprazole and tums were provided for that. Once she started passing liquid stool, she has started to feel better. No appetite though. Has had 2 puddings and some powerade. Might try and ensure this afternoon. [place] was removed as urine output was adequate. Has voided X1 but mixed with stool. Requiring 1-2 assist from bed to commode. Patient is unable to follow directions at times. Skin is intact. Noted that there is an intrathecal pain pump on her right lower back. MD was notified of this. Potassium was low and was replaced today. No fever. Orthostatic BPs completed and 1L bolus given due to the results of this. Patient has been cooperative and pleasant this shift but is feeling very wore out from the diarrhea. Patient spoke to her daughter Jasmyn on the phone this morning and her mother called to check on her this afternoon but pt did not feel like talking at that point. PIV in right AC is patent and intact. Wore SCDs off and on but would take them off when she was restless. Sat in the chair a couple of times today but was too weak to ambulate. PT/OT consulted. Patient received a bed bath and hair wash. pulse ox sticker and telemetry stickers were replaced today. Continues to be in Afib.
[2023-01-12] MEDS: LOPERAMIDE HCL 2 MG CAPSULE PO (15:11)
[2023-01-12] MEDS: dilTIAZem 240 MG CAP (CD) PO (16:08)
--- NOTE | 2023-01-12 16:18 | PC.SOCIAL ---
Discharge Planning: This typewriter mechanic was unable to talk with patient, as she did not wake for conversation. Talked with daughter, Autumn about plan for her mom and where she will live after discharge, as her landlord served her notice. Autumn stated that she thought the landlord was wrong and she wanted to challenge the eviction. Given number for [facility]. Stephanie work to follow up as needed.
[2023-01-12] MEDS: WARFARIN 3 MG TABLET PO (16:36)
[2023-01-12] MEDS: DIGOXIN 250 MCG TABLET PO ×3 (16:36→23:48)
--- NOTE | 2023-01-12 16:52 | P.IMPN_ITS ---
Progress Note: A&P Assessment and plan (1) Altered mental status: Problem details: - differential diagnosis is broad and includes substance use, including methamphetamine, cocaine, PCP, withdrawal from opiates or benzodiazepines or methamphetamine, encephalopathy, ETOH withdrawal, intracranial process, atypical ACS, serotonin syndrome. On 01/11/2023 we learned that patient has been administering ketamine topical lotion via her rectum for some time. [place], [place], indicated that it is possible that her current condition is a reflection of her withdrawal from the ketamine she has been self administering in this fashion. - admit to CCU on telemetry, urgent head CT (patient now agreeable), follow closely - no concerning symptoms for opiate withdrawal, will continue to watch closely Status: Acute Assessment and Plan: Condition gradually improving. (2) Atrial fibrillation with rapid ventricular response: Problem details: - likely related to acute illness, dehydration - responded to IV Diltiazem, transitioned to oral diltiazem which was successful only for short period of time. Start Cardizem CD 240 mg once daily today and continue with 60 mg p.o. q.6 hours p.r.n. of the immediate release formula. - on oral sotalol 60 mg BID as an outpatient. Increased dose to 80 mg BID 01/12/2023. - check daily electrocardiogram due to sotalol dose increase. - blood with digoxin 250 mcg for 3 doses today than starting tomorrow 125 mcg daily. Check digit level tomorrow morning. Status: Acute (3) Polypharmacy: Problem details: This will warrant ongoing management efforts Status: Acute (4) Diabetes mellitus: Problem details: - A1C 7.4 on 10/22/22 - continue home medications with SSI and holding parameters pending po intake Status: Acute (5) Bipolar disorder: Problem details: Obviously this too can be driving her altered mental status state. Status: Acute Assessment and Plan: Will hold off on adding atypical antipsychotic due to patient being on sotalol and increased risk of QT prolongation. May need to consider low-dose atypical antipsychotic in the future. (6) Hypertension: Problem details: Increased dose of sotalol and diltiazem. Consider adding additional antihypertensive treatment if warranted. Status: Acute (7) Microcytic anemia: Problem details: - chronic, likely 2/2 gastric bypass surgery - routine outpatient f/u Status: Acute (8) Hypokalemia: Problem details: Continue with potassium supplementation. Monitor magnesium. Status: Acute Plan 1. Reviewed impression with patient. 2. Continue to try to work with patient's daughter, Autumn. 3. Presser Machine now involved in assisting us with discharge disposition planning. Time Spent With Patient Total time spent: 60 minutes Subjective Time Seen by Provider: 13:00 Date Seen: 01/12/23 Interval history: Exerpts from her HPI: 62-year-old lady who was admitted in an unresponsive state earlier on 01/08/2023. She has a history of polysubstance abuse and atrial fibrillation. It was noted that the [place] [facility] [place] living [facility]in[facility] stopped her narcotic medications because of evidence of concurrent alcohol misuse. Patient was found to be in atrial fibrillation with RVR. She also demonstrated signs and symptoms of withdrawal. The patient's RN called ... because the patient has a tendency to become hyperalert and agitated. This appears to contribute to increased tachycardia. Right now she is in atrial fibrillation with a heart rate of about [130-150]. There [has] been no concurrent drop in systolic blood pressure. The patient has been given as needed Ativan and this seems to show evidence that she is less agitated at this time. The RN feels that might be beneficial if we consider a CIWA protocol. We also discussed the probable benefit of starting a Cardizem infusion with heart rate and blood pressure parameters. She is currently on sotalol and as needed IVP doses of metoprolol. Patient even slightly more awake and interactive today compared to yesterday. I visit the patient multiple times throughout the day today. She has more lightheadedness today than she had previously. She does have orthostatic changes in association with this. Drinking fluids. Not eating much. Denies nausea or vomiting. Denies abdominal pain. Denies chest heaviness, pressure, tightness, or pain. She has little recollection of any of the details that transpired that culminated in her arrival to the hospital at this time. She informs me she has never heard of ketamine in the past. Exam Narrative: Exam Narrative: I examined her in her hospital room. Vision and hearing are grossly normal. Alert and oriented to self and not so much to place, time, or situation. She tells me she is at [facility]. Unable to articulate time or situation details. Talkative. Will talk about things that are not pertinent to what is transpiring around her. For instance, I ask her how she arrived at the hospital and she starts talking about a ball bound seen in her room. Lungs are clear to auscultation. No CVA tenderness. Heart tones with chaotic rhythm. Still has intermittent AFib RVR throughout the day. Abdomen with active bowel sounds, soft, nontender. With standby assist she is able to transfer from supine to sitting sitting to standing and walk a few steps to a bedside commode or recliner chair. No dependent edema. Const: Vital Signs, click to edit/add: Vital Signs - 24 hr 01/11/23 18:50 01/11/23 19:00 01/11/23 19:50 Temperature 97.2 F L Pulse Rate Pulse Rate [Left R adial] 90 90 101 H Pulse Rate [orthos tatic lying Pulse Oximeter] Pulse Rate [orthos tatic sitting Puls e Oximeter] Pulse Rate [orthos tatic standing Pul se Oximeter] Respiratory Rate 25 H 25 H 20 Blood Pressure [Le ft Arm] 124/85 124/85 133/97 H Blood Pressure [Ri ght Arm] Blood Pressure [or thostatic lying Le ft Arm] Blood Pressure [or thostatic sitting Left Arm] Blood Pressure [or thostatic standing Left Arm] Pulse Oximetry 99 99 99 Oxygen Delivery Me thod Room Air Room Air Room Air Oxygen Flow Rate 0 0 01/11/23 21:00 01/11/23 22:32 01/11/23 23:00 Temperature 97.3 F L Pulse Rate 100 91 Pulse Rate [Left R adial] 86 Pulse Rate [orthos tatic lying Pulse Oximeter] Pulse Rate [orthos tatic sitting Puls e Oximeter] Pulse Rate [orthos tatic standing Pul se Oximeter] Respiratory Rate 20 Blood Pressure [Le ft Arm] Blood Pressure [Ri ght Arm] 139/95 H Blood Pressure [or thostatic lying Le ft Arm] Blood Pressure [or thostatic sitting Left Arm] Blood Pressure [or thostatic standing Left Arm] Pulse Oximetry 98 Oxygen Delivery Me thod Room Air Oxygen Flow Rate 0 01/11/23 23:00 01/11/23 23:06 01/11/23 23:13 Temperature 97.4 F L 97.5 F L Pulse Rate Pulse Rate [Left R adial] 86 87 Pulse Rate [orthos tatic lying Pulse Oximeter] Pulse Rate [orthos tatic sitting Puls e Oximeter] Pulse Rate [orthos tatic standing Pul se Oximeter] Respiratory Rate 22 20 22 Blood Pressure [Le ft Arm] Blood Pressure [Ri ght Arm] 124/98 H 134/107 H Blood Pressure [or thostatic lying Le ft Arm] Blood Pressure [or thostatic sitting Left Arm] Blood Pressure [or thostatic standing Left Arm] Pulse Oximetry 97 99 97 Oxygen Delivery Me thod Room Air Room Air Room Air Oxygen Flow Rate 0 01/11/23 23:36 01/12/23 00:00 01/12/23 01:08 Temperature 97.5 F L 96.8 F L Pulse Rate Pulse Rate [Left R adial] 87 103 H 103 H Pulse Rate [orthos tatic lying Pulse Oximeter] Pulse Rate [orthos tatic sitting Puls e Oximeter] Pulse Rate [orthos tatic standing Pul se Oximeter] Respiratory Rate 22 20 20 Blood Pressure [Le ft Arm] Blood Pressure [Ri ght Arm] 134/107 H 135/111 H 105/78 Blood Pressure [or thostatic lying Le ft Arm] Blood Pressure [or thostatic sitting Left Arm] Blood Pressure [or thostatic standing Left Arm] Pulse Oximetry 97 98 96 Oxygen Delivery Me thod Room Air Room Air Room Air Oxygen Flow Rate 01/12/23 01:34 01/12/23 02:00 01/12/23 03:01 Temperature 97.1 F L 97.1 F L Pulse Rate Pulse Rate [Left R adial] 76 97 114 H Pulse Rate [orthos tatic lying Pulse Oximeter] Pulse Rate [orthos tatic sitting Puls e Oximeter] Pulse Rate [orthos tatic standing Pul se Oximeter] Respiratory Rate 22 22 22 Blood Pressure [Le ft Arm] Blood Pressure [Ri ght Arm] 127/91 H 127/91 H 123/84 Blood Pressure [or thostatic lying Le ft Arm] Blood Pressure [or thostatic sitting Left Arm] Blood Pressure [or thostatic standing Left Arm] Pulse Oximetry 95 95 92 Oxygen Delivery Me thod Room Air Room Air Room Air Oxygen Flow Rate 01/12/23 03:03 01/12/23 04:00 01/12/23 05:00 Temperature 97.1 F L Pulse Rate Pulse Rate [Left R adial] 114 H 97 111 H Pulse Rate [orthos tatic lying Pulse Oximeter] Pulse Rate [orthos tatic sitting Puls e Oximeter] Pulse Rate [orthos tatic standing Pul se Oximeter] Respiratory Rate 22 20 22 Blood Pressure [Le ft Arm] Blood Pressure [Ri ght Arm] 123/84 146/112 H 154/113 H Blood Pressure [or thostatic lying Le ft Arm] Blood Pressure [or thostatic sitting Left Arm] Blood Pressure [or thostatic standing Left Arm] Pulse Oximetry 92 97 96 Oxygen Delivery Me thod Room Air Room Air Oxygen Flow Rate 0 01/12/23 06:00 01/12/23 07:30 01/12/23 08:05 Temperature 97.6 F 95.9 F L Pulse Rate 109 H Pulse Rate [Left R adial] 116 H 133 H Pulse Rate [orthos tatic lying Pulse Oximeter] Pulse Rate [orthos tatic sitting Puls e Oximeter] Pulse Rate [orthos tatic standing Pul se Oximeter] Respiratory Rate 22 16 Blood Pressure [Le ft Arm] 148/123 H 160/120 H Blood Pressure [Ri ght Arm] Blood Pressure [or thostatic lying Le ft Arm] Blood Pressure [or thostatic sitting Left Arm] Blood Pressure [or thostatic standing Left Arm] Pulse Oximetry 95 94 Oxygen Delivery Me thod Room Air Room Air Oxygen Flow Rate 01/12/23 08:45 01/12/23 09:05 01/12/23 09:45 Temperature 95.9 F L 95.9 F L 97.4 F L Pulse Rate Pulse Rate [Left R adial] 133 H 122 H 103 H Pulse Rate [orthos tatic lying Pulse Oximeter] Pulse Rate [orthos tatic sitting Puls e Oximeter] Pulse Rate [orthos tatic standing Pul se Oximeter] Respiratory Rate 16 18 16 Blood Pressure [Le ft Arm] 160/120 H 156/104 H 156/104 H Blood Pressure [Ri ght Arm] Blood Pressure [or thostatic lying Le ft Arm] Blood Pressure [or thostatic sitting Left Arm] Blood Pressure [or thostatic standing Left Arm] Pulse Oximetry 97 95 97 Oxygen Delivery Me thod Room Air Room Air Room Air Oxygen Flow Rate 01/12/23 10:02 01/12/23 10:31 01/12/23 11:44 Temperature 97.4 F L Pulse Rate Pulse Rate [Left R adial] 99 Pulse Rate [orthos tatic lying Pulse Oximeter] 107 H Pulse Rate [orthos tatic sitting Puls e Oximeter] 96 Pulse Rate [orthos tatic standing Pul se Oximeter] 117 H Respiratory Rate 16 Blood Pressure [Le ft Arm] 148/102 H Blood Pressure [Ri ght Arm] Blood Pressure [or thostatic lying Le ft Arm] 150/112 H Blood Pressure [or thostatic sitting Left Arm] 138/110 H Blood Pressure [or thostatic standing Left Arm] 120/100 H Pulse Oximetry 92 97 Oxygen Delivery Me thod Room Air Room Air Oxygen Flow Rate 01/12/23 11:46 01/12/23 12:55 01/12/23 14:04 Temperature 97.0 F L 97.5 F L Pulse Rate Pulse Rate [Left R adial] 107 H 112 H 82 Pulse Rate [orthos tatic lying Pulse Oximeter] Pulse Rate [orthos tatic sitting Puls e Oximeter] Pulse Rate [orthos tatic standing Pul se Oximeter] Respiratory Rate 16 16 16 Blood Pressure [Le ft Arm] 150/112 H 128/101 H 119/85 Blood Pressure [Ri ght Arm] Blood Pressure [or thostatic lying Le ft Arm] Blood Pressure [or thostatic sitting Left Arm] Blood Pressure [or thostatic standing Left Arm] Pulse Oximetry 97 98 95 Oxygen Delivery Me thod Room Air Room Air Room Air Oxygen Flow Rate 01/12/23 15:12 01/12/23 15:43 01/12/23 16:36 Temperature 97.1 F L Pulse Rate 104 H 114 H Pulse Rate [Left R adial] 104 H Pulse Rate [orthos tatic lying Pulse Oximeter] Pulse Rate [orthos tatic sitting Puls e Oximeter] Pulse Rate [orthos tatic standing Pul se Oximeter] Respiratory Rate 16 Blood Pressure [Le ft Arm] 121/98 H Blood Pressure [Ri ght Arm] Blood Pressure [or thostatic lying Le ft Arm] Blood Pressure [or thostatic sitting Left Arm] Blood Pressure [or thostatic standing Left Arm] Pulse Oximetry 97 Oxygen Delivery Me thod Room Air Oxygen Flow Rate Labs Labs: Laboratory Results - last 24 hr 01/12/23 01/12/23 01/12/23 02:35 05:40 05:45 WBC 11.51 H RBC 5.79 H Hgb 13.9 Hct 45.3 MCV 78 L MCH 24 L MCHC 31 L Plt Count 290 INR 2.86 H Potassium 3.1 L Magnesium 1.7 Troponin I < 0.01 L < 0.01 L Cancelled C-Reactive Protein 2.3 H Stl C. diff Tox B Gene Stl C. diff NAP-BI Lab Acknowledgement 01/12/23 01/12/23 10:21 10:53 WBC RBC Hgb Hct MCV MCH MCHC Plt Count INR Potassium Magnesium Troponin I C-Reactive Protein Stl C. diff Tox B Gene Negative Stl C. diff -BI PRESUMPTIVE NEGATIVE Lab Acknowledgement Test Added
[2023-01-12] MEDS: SOTALOL HCL 80 MG TABLET PO (20:51)
--- NOTE | 2023-01-12 22:39 | PC.NURSE ---
Shift [id number]- Patient naps on and off throughout shift. She complains of bloatedness, declines to eat. She does not have any stools this afternoon or evening, but is passing a lot of gas. Does not complain of pain, CIWAs <9. She asks for ativan, is provided education about ativan administration. SILVER remains 1:1- patient is up to chair and commode with assist. PRN metoprolol is administered for sustained HR>110- she remains in A-fib- see eMAR for administration.
[2023-01-13] VITALS (29 sets, daily range): BP systolic 86–149; BP diastolic 61–117; PULSE 84–160; RESP 16–20; TEMP 35.6–36.7; O2SAT 93–100
[2023-01-13] MEDS: METOPROLOL TARTRATE 1 MG/ML inj 5 MG IVP ×2 (01:57→05:36)
--- NOTE | 2023-01-13 06:05 | PC.NURSE ---
Shift note: Pt has been calm sleeping throughout the night. Alert and arouse by name but disoriented to place, person and time. No anxiety, perspiration, hallucination and delusion observed. Telemetry continue to show A.fib with irregular HR ranges between 88 and 113. Metoprolol PRN given 2x tonight. A1 to bedside commode. O2>90% on room air.
[2023-01-13 06:59] LABS: Hematocrit 43.1 % (33.0-51.0); Hemoglobin* 13.2 gm/dL (12.0-16.0); Mean Corpuscular HGB Conc 31 gm/dL (32-36); Mean Corpuscular Hemoglobin 24 pg (26-34); Mean Corpuscular Volume 80 fL (80-100); Platelet Count* 248 K/uL (140-440); White Blood Count* 7.94 K/uL (4.50-11.00)
[2023-01-13 07:05] LABS: Slide Review Reflex No
[2023-01-13 07:16] LABS: Chloride* 101 mmol/L (96-114); Potassium* 3.8 mmol/L (3.6-5.1); Sodium* 140 mmol/L (135-149)
[2023-01-13 07:17] LABS: INR 3.52 (0.91-1.10); Prothrombin Time 36.9 Seconds
[2023-01-13 07:18] LABS: Creatinine* 0.5 mg/dL (0.5-1.5); Est. Creatinine Clearance* 46.13; Estimated Glomerular Filt Rate 106 ml/min
[2023-01-13 07:19] LABS: Blood Urea Nitrogen* 23 mg/dL (7-30); Calcium* 9.1 mg/dL (8.4-10.6); Carbon Dioxide* 26 mmol/L (20-32); Glucose* 151 mg/dL (60-115); Phosphorus* 4.1 mg/dL (2.5-4.5)
[2023-01-13 07:42] LABS: Digoxin* 0.8 ng/mL (0.8-2.0)
[2023-01-13] MEDS: ACETAMINOPHEN 325 MG TABLET 650 MG PO ×3 (08:39→21:38)
[2023-01-13] MEDS: SERTRALINE 100 MG TABLET 200 MG PO (08:39)
[2023-01-13] MEDS: DIGOXIN 125 MCG TABLET PO (08:39)
[2023-01-13] MEDS: clonazePAM 0.5 MG TABLET 1 MG PO ×2 (08:39→21:39)
[2023-01-13] MEDS: ATORVASTATIN CALCIUM 40 MG TABLET PO (08:39)
[2023-01-13] MEDS: METFORMIN 500 MG TABLET PO ×2 (08:40→21:38)
[2023-01-13] MEDS: SODIUM CHLORIDE 0.9 % (FLUSH) 10 ML SYRINGE 5 ML IVF ×2 (08:40→21:39)
[2023-01-13] MEDS: TORSEMIDE 100 MG TABLET 50 MG PO (08:40)
--- NOTE | 2023-01-13 09:00 | PC.NURSE ---
Unable to swallow Diltiazem ER, Metoprolol ER, and Omeprazole. MD notified. Requested to give IV diltiazem in until he sorts through meds. This was given and tolerated well by patient.
[2023-01-13] MEDS: dilTIAZem 5 MG/ML inj 10 MG IVP (09:08)
[2023-01-13] MEDS: LOPERAMIDE HCL 2 MG CAPSULE PO ×2 (09:12→12:04)
--- NOTE | 2023-01-13 10:06 | PC.NURSE ---
Orthostatic BPs completed and reported findings to Dr. Villavicencio
[2023-01-13] MEDS: PANTOPRAZOLE SODIUM 40 MG INJ IVP (10:18)
[2023-01-13] MEDS: METOPROLOL TARTRATE 50 MG TABLET PO ×3 (10:19→23:12)
[2023-01-13] MEDS: 0.9 % SODIUM CHLORIDE 1000 ml 1,000 ML 6000 ML IV (10:19)
[2023-01-13] MEDS: dilTIAZem 30 MG TABLET 60 MG PO ×3 (10:19→23:12)
[2023-01-13] MEDS: 0.9 % SODIUM CHLORIDE 1000 ml 1,000 ML 75 ML IV ×2 (12:03→23:13)
[2023-01-13] MEDS: LORazepam 1 MG TABLET PO ×3 (12:12→17:47)
--- NOTE | 2023-01-13 13:00 | PC.NURSE ---
Missed a call from daughter, shawna. Attempted to call her back, no answer.
--- NOTE | 2023-01-13 14:53 | PM.IMPN1 ---
Progress Note: A&P Assessment and plan (1) Altered mental status: Problem details: - differential diagnosis is broad and includes substance use, including methamphetamine, cocaine, PCP, withdrawal from opiates or benzodiazepines or methamphetamine, encephalopathy, ETOH withdrawal, intracranial process, atypical ACS, serotonin syndrome. On 01/11/2023 we learned that patient had been administering ketamine topical lotion via her rectum for some time. [place], [place], indicated that it is possible that her current condition is a reflection of her withdrawal from the ketamine she has been self administering in this fashion. - transferred from unit status to floor status with one-to-one nursing associate as needed - 01/13/2023 initiated clonazepam 1 mg p.o. b.i.d. and for now continue with p.r.n. lorazepam Status: Acute (2) Atrial fibrillation with rapid ventricular response: Problem details: Historically has had paroxysmal atrial fibrillation for number of years. Initially treated with rate control using metoprolol and anticoagulation. My understanding of her medical records is that an attempt was made at pharmacologic cardioversion utilizing amiodarone at 1 time. That was unsuccessful. She was started on sotalol. Last time she was seen by her solvent recoverer was in March of 2021. Has not had follow-up since then. Presented to our hospital on sotalol with AFib RVR. Rhythm has not changed entire time she has been in the hospital. I made the decision to stop the antiarhythmic and focus on rate control only utilizing metoprolol, diltiazem, and digoxin. Continues with anticoagulation. Status: Acute (3) Polypharmacy: Problem details: This will warrant ongoing management efforts Status: Acute (4) Diabetes mellitus: Problem details: - A1C 7.4 on 10/22/22 - continue home medications with SSI and holding parameters pending po intake Status: Acute (5) Bipolar disorder: Problem details: Obviously this too can be driving her altered mental status state. Not able to add atypical antipsychotic until more time has evolved since her last dose of sotalol. Status: Acute (6) Hypertension: Problem details: Increased dose of metoprolol and diltiazem. With ongoing adjustment in negative chronotropic agents, will hold off on adding DAYO-inhibitor or ARB for now. Status: Acute (7) Microcytic anemia: Problem details: - chronic, likely 2/2 gastric bypass surgery - routine outpatient f/u Status: Acute (8) Hypokalemia: Problem details: Continue with potassium supplementation. Monitor magnesium. Status: Acute (9) Dehydration: Problem details: Orthostatic. Not consuming adequately to meet her needs. Status: Acute Assessment and Plan: Normal saline IV fluid bolus then 75 mL/hour x2 more L. (10) Difficulty swallowing: Status: Acute Assessment and Plan: 1. Order swallowing eval. 2. Change medications to accommodate current difficulty with swallowing. Plan 1. Reviewed impression with patient 2. Continue with plan as specified above 3. Continue work with social media campaign manager for discharge disposition planning Time Spent With Patient Total time spent: 50 Subjective Time Seen by Provider: 09:00 Date Seen: 01/13/23 Interval history: Hospital day 6. Exerpts from her HPI: 62-year-old lady who was admitted in an unresponsive state earlier on 01/08/2023. She has a history of polysubstance abuse and atrial fibrillation. It was noted that the [place] [facility] she [facility] living [facility]in] stopped her narcotic medications because of evidence of concurrent alcohol misuse. Patient was found to be in atrial fibrillation with RVR. She also demonstrated signs and symptoms of withdrawal. The patient's RN called ... because the patient has a tendency to become hyperalert and agitated. This appears to contribute to increased tachycardia. Right now she is in atrial fibrillation with a heart rate of about [130-150]. There [has] been no concurrent drop in systolic blood pressure. The patient has been given as needed Ativan and this seems to show evidence that she is less agitated at this time. The RN feels that might be beneficial if we consider a CIWA protocol. We also discussed the probable benefit of starting a Cardizem infusion with heart rate and blood pressure parameters. She is currently on sotalol and as needed IVP doses of metoprolol. Patient similarly awake and interactive today compared to yesterday. I visit the patient a few times throughout the day today. She has more lightheadedness today than she had previously. She does have orthostatic changes in association with this. Drinking fluids. Still not eating much. Denies nausea or vomiting. Denies abdominal pain. Denies chest heaviness, pressure, tightness, or pain. She is intermittently easily agitated and quite jovial with nursing staff. Exam Narrative: Exam Narrative: I examine her in her hospital room. She is requiring intermittent 1-1 attendance. When awake she is alert and oriented to self and in part to place not so much to time or situation. For the most part she is friendly and cooperative. In great measure oblivious about her condition. Lungs clear to auscultation. Heart tones chaotic. Abdomen with active bowel sounds soft. Extremities without edema. Able to transfer and ambulate with standby assist. Const: Vital Signs, click to edit/add: Vital Signs - 24 hr 01/12/23 15:12 01/12/23 15:43 01/12/23 16:00 Temperature 97.1 F L Pulse Rate 104 H Pulse Rate [Left R adial] 104 H Pulse Rate [orthos tatic lying Pulse Oximeter] Pulse Rate [orthos tatic sitting Puls e Oximeter] Pulse Rate [orthos tatic standing Pul se Oximeter] Respiratory Rate 16 Blood Pressure [Le ft Arm] 121/98 H Blood Pressure [or thostatic lying Le ft Arm] Blood Pressure [or thostatic sitting Left Arm] Blood Pressure [or thostatic standing Left Arm] Pulse Oximetry 97 98 Oxygen Delivery Me thod Room Air Room Air 01/12/23 16:00 01/12/23 16:36 01/12/23 19:15 Temperature 97.5 F L 98 F Pulse Rate 114 H Pulse Rate [Left R adial] 121 H 107 H Pulse Rate [orthos tatic lying Pulse Oximeter] Pulse Rate [orthos tatic sitting Puls e Oximeter] Pulse Rate [orthos tatic standing Pul se Oximeter] Respiratory Rate 18 18 Blood Pressure [Le ft Arm] 132/88 127/94 H Blood Pressure [or thostatic lying Le ft Arm] Blood Pressure [or thostatic sitting Left Arm] Blood Pressure [or thostatic standing Left Arm] Pulse Oximetry 98 100 Oxygen Delivery Me thod Room Air Room Air 01/12/23 19:54 01/12/23 23:00 01/12/23 23:00 Temperature 97.9 F Pulse Rate 106 H 86 Pulse Rate [Left R adial] 94 Pulse Rate [orthos tatic lying Pulse Oximeter] Pulse Rate [orthos tatic sitting Puls e Oximeter] Pulse Rate [orthos tatic standing Pul se Oximeter] Respiratory Rate 18 Blood Pressure [Le ft Arm] 104/93 H Blood Pressure [or thostatic lying Le ft Arm] Blood Pressure [or thostatic sitting Left Arm] Blood Pressure [or thostatic standing Left Arm] Pulse Oximetry 99 Oxygen Delivery Me thod Room Air 01/12/23 23:00 01/12/23 23:00 01/12/23 23:48 Temperature Pulse Rate 94 Pulse Rate [Left R adial] 94 Pulse Rate [orthos tatic lying Pulse Oximeter] Pulse Rate [orthos tatic sitting Puls e Oximeter] Pulse Rate [orthos tatic standing Pul se Oximeter] Respiratory Rate 18 Blood Pressure [Le ft Arm] Blood Pressure [or thostatic lying Le ft Arm] Blood Pressure [or thostatic sitting Left Arm] Blood Pressure [or thostatic standing Left Arm] Pulse Oximetry 99 Oxygen Delivery Me thod Room Air 01/13/23 01:56 01/13/23 03:00 01/13/23 05:34 Temperature 98 F Pulse Rate Pulse Rate [Left R adial] 113 H 95 113 H Pulse Rate [orthos tatic lying Pulse Oximeter] Pulse Rate [orthos tatic sitting Puls e Oximeter] Pulse Rate [orthos tatic standing Pul se Oximeter] Respiratory Rate 18 Blood Pressure [Le ft Arm] 113/98 H 134/94 H 128/99 H Blood Pressure [or thostatic lying Le ft Arm] Blood Pressure [or thostatic sitting Left Arm] Blood Pressure [or thostatic standing Left Arm] Pulse Oximetry 99 Oxygen Delivery Me thod Room Air 01/13/23 07:44 01/13/23 08:39 01/13/23 09:08 Temperature 96.9 F L Pulse Rate 136 H Pulse Rate [Left R adial] 110 H 160 H Pulse Rate [orthos tatic lying Pulse Oximeter] Pulse Rate [orthos tatic sitting Puls e Oximeter] Pulse Rate [orthos tatic standing Pul se Oximeter] Respiratory Rate 16 16 Blood Pressure [Le ft Arm] 129/110 H 143/94 H Blood Pressure [or thostatic lying Le ft Arm] Blood Pressure [or thostatic sitting Left Arm] Blood Pressure [or thostatic standing Left Arm] Pulse Oximetry 99 Oxygen Delivery Me thod Room Air 01/13/23 09:09 01/13/23 09:15 01/13/23 09:20 Temperature Pulse Rate Pulse Rate [Left R adial] 150 H 135 H 122 H Pulse Rate [orthos tatic lying Pulse Oximeter] Pulse Rate [orthos tatic sitting Puls e Oximeter] Pulse Rate [orthos tatic standing Pul se Oximeter] Respiratory Rate Blood Pressure [Le ft Arm] 139/80 141/92 H 149/98 H Blood Pressure [or thostatic lying Le ft Arm] Blood Pressure [or thostatic sitting Left Arm] Blood Pressure [or thostatic standing Left Arm] Pulse Oximetry Oxygen Delivery Me thod 01/13/23 09:30 01/13/23 09:31 01/13/23 09:31 Temperature Pulse Rate 96 Pulse Rate [Left R adial] 111 H Pulse Rate [orthos tatic lying Pulse Oximeter] Pulse Rate [orthos tatic sitting Puls e Oximeter] Pulse Rate [orthos tatic standing Pul se Oximeter] Respiratory Rate Blood Pressure [Le ft Arm] 149/98 H Blood Pressure [or thostatic lying Le ft Arm] Blood Pressure [or thostatic sitting Left Arm] Blood Pressure [or thostatic standing Left Arm] Pulse Oximetry 99 Oxygen Delivery Me thod Room Air 01/13/23 09:35 01/13/23 09:45 01/13/23 10:08 Temperature Pulse Rate Pulse Rate [Left R adial] 115 H 109 H Pulse Rate [orthos tatic lying Pulse Oximeter] 122 H Pulse Rate [orthos tatic sitting Puls e Oximeter] 116 H Pulse Rate [orthos tatic standing Pul se Oximeter] 126 H Respiratory Rate Blood Pressure [Le ft Arm] 149/98 H 137/98 H Blood Pressure [or thostatic lying Le ft Arm] 133/99 H Blood Pressure [or thostatic sitting Left Arm] 129/90 H Blood Pressure [or thostatic standing Left Arm] 86/61 L Pulse Oximetry Oxygen Delivery Me thod 01/13/23 11:56 01/13/23 12:41 Temperature 96.8 F L Pulse Rate Pulse Rate [Left R adial] 106 H 88 Pulse Rate [orthos tatic lying Pulse Oximeter] Pulse Rate [orthos tatic sitting Puls e Oximeter] Pulse Rate [orthos tatic standing Pul se Oximeter] Respiratory Rate 16 Blood Pressure [Le ft Arm] 127/97 H Blood Pressure [or thostatic lying Le ft Arm] Blood Pressure [or thostatic sitting Left Arm] Blood Pressure [or thostatic standing Left Arm] Pulse Oximetry 97 Oxygen Delivery Me thod Room Air Documenting provider has reviewed patient's vital signs: yes Labs Labs: Laboratory Results - last 24 hr 01/13/23 05:28 WBC 7.94 RBC 5.40 H Hgb 13.2 Hct 43.1 MCV 80 MCH 24 L MCHC 31 L Plt Count 248 INR 3.52 H Sodium 140 Potassium 3.8 Chloride 101 Carbon Dioxide 26 BUN 23 Creatinine 0.5 Estimated Creat Clear 46.13 Estimated GFR 106 Glucose 151 H Calcium 9.1 Phosphorus 4.1 Albumin 4.0 Digoxin 0.8 ECG Attestation: I personally reviewed and interpreted this ECG as follows: Prior ECG tracings: available for review Interpretation: Atrial fibrillation with rapid ventricular response, rate 90-110. QT 342 milliseconds. QTC 458 milliseconds.
--- NOTE | 2023-01-13 14:55 | PC.NURSE ---
End of shift report: Patient had an elevated heart rate of 160 at the start of the shift. Was unable to swallow the medications that are extended release so these were changed to immediate released so these could be crushed. Was given IV diltiazem in the mean time. Has maintained around 80-110 since then. New PIV placed in left wrist. 1L fluid bolus post orthostatic BPs. .9 @ 75/hr. Having chronic abominal pain. Passing a lot of flatus. Has had 2 loose stools. Has received 2 doses of Imodium. CIWAs q1h since ramping up since noon. Has received 2 doses of lorazepam PO. Patient often requesting lorazepam even when calm. States It helps my abdominal pain. Patient requested CT scan of abdomin. MD notified and stated there is no indication at this time. Patient has been frequently voiding. Bladder scanned for 6cc. Continues to go about 200-300cc every time. Ate a good breakfast, had an ensure but refused lunch. Did have a cookie. Patient is stand by assist to commode and chair. Becomes very weak and dizzy with any activity. Patient frequently asks when she can go home. Asking if she can go back into her apartment or if she is kicked out. International Guest Coordinator unsure the answer to that. Blood sugars QID. Getting SS insulin. MD continues to adjust medications. Remains in afib and attempting to get a good rate control. Patient has been on a 1:1 with an SILVER due to impusivity.
[2023-01-14] VITALS (11 sets, daily range): BP systolic 104–139; BP diastolic 84–118; PULSE 64–122; RESP 18–20; TEMP 35.6–37; O2SAT 95–100
[2023-01-14] MEDS: dilTIAZem 30 MG TABLET 60 MG PO ×4 (04:33→21:30)
[2023-01-14] MEDS: METOPROLOL TARTRATE 50 MG TABLET PO ×4 (04:34→21:31)
--- NOTE | 2023-01-14 05:21 | PC.NURSE ---
[id number]: Patient displaying increased awareness, alertness and even pleasant at times. PRN Ativan x1 for CIWA per protocol. Patient requested Ativan numerous times during shift but was easily distracted. Patient rested well during noc and cooperative with cares. A1 to BSC and remained continent. HR 80-115 but mostly stayed under 100. Encouraged PO intake with some success.
[2023-01-14 06:31] LABS: Lactate* 2.2 mmol/L (0.5-1.9)
[2023-01-14 06:42] LABS: Hemoglobin* 12.4 gm/dL (12.0-16.0); Mean Corpuscular HGB Conc 30 gm/dL (32-36); Mean Corpuscular Hemoglobin 24 pg (26-34); Mean Corpuscular Volume 80 fL (80-100); Platelet Count* 218 K/uL (140-440); Red Blood Count 5.15 m/uL (4.00-5.20); White Blood Count* 7.38 K/uL (4.50-11.00)
[2023-01-14 07:00] LABS: INR 2.69 (0.91-1.10); Prothrombin Time 29.9 Seconds; Slide Review Reflex No
[2023-01-14 07:06] LABS: Chloride* 102 mmol/L (96-114); Potassium* 3.8 mmol/L (3.6-5.1); Sodium* 139 mmol/L (135-149)
[2023-01-14 07:09] LABS: Blood Urea Nitrogen* 22 mg/dL (7-30); Calcium* 9.4 mg/dL (8.4-10.6); Carbon Dioxide* 26 mmol/L (20-32); Creatinine* 0.5 mg/dL (0.5-1.5); Est. Creatinine Clearance* 46.13; Estimated Glomerular Filt Rate 106 ml/min; Glucose* 158 mg/dL (60-115); Phosphorus* 3.8 mg/dL (2.5-4.5)
[2023-01-14 07:10] LABS: Magnesium* 1.6 mg/dL (1.5-2.6)
[2023-01-14 07:18] LABS: NT Pro B Type NatriureticPept* 983 pg/mL
[2023-01-14] MEDS: PANTOPRAZOLE SODIUM 40 MG INJ IVP (08:07)
[2023-01-14] MEDS: ATORVASTATIN CALCIUM 40 MG TABLET PO (08:07)
[2023-01-14] MEDS: clonazePAM 0.5 MG TABLET 1 MG PO ×2 (08:07→20:31)
[2023-01-14] MEDS: DIGOXIN 125 MCG TABLET PO (08:08)
[2023-01-14] MEDS: SERTRALINE 100 MG TABLET 200 MG PO (08:08)
[2023-01-14] MEDS: ACETAMINOPHEN 500 MG TABLET 1000 MG PO (08:09)
[2023-01-14] MEDS: TORSEMIDE 5 MG TABLET 25 MG PO (08:09)
[2023-01-14] MEDS: SODIUM CHLORIDE 0.9 % (FLUSH) 10 ML SYRINGE 5 ML IVF ×2 (08:09→20:31)
[2023-01-14] MEDS: METFORMIN 500 MG TABLET PO ×2 (08:12→20:30)
--- NOTE | 2023-01-14 11:50 | PC.SOCIAL ---
Discharge Planning: This feature writer contacted daughter, Autumn about recommendation on Brandee going to an SNF for temporary placement. Autumn did not want any phone calls made to facilities until she spoke to her Aunt first. Autumn says that her Aunt has contacts and will call Social work back this morning. No call back yet. Social work to follow up as needed.
[2023-01-14] MEDS: LORazepam 1 MG TABLET PO ×2 (11:53→16:04)
[2023-01-14] MEDS: ALBUTEROL INHALER 2 PUFF IH (11:54)
--- NOTE | 2023-01-14 13:07 | PM.IMPN1 ---
Progress Note: A&P Assessment and plan (1) Altered mental status: Problem details: - differential diagnosis is broad and includes substance use, including methamphetamine, cocaine, PCP, withdrawal from opiates or benzodiazepines or methamphetamine, encephalopathy, ETOH withdrawal, intracranial process, atypical ACS, serotonin syndrome. On 01/11/2023 we learned that patient had been administering ketamine topical lotion via her rectum for some time. [place], [place], indicated that it is possible that her current condition is a reflection of her withdrawal from the ketamine she has been self administering in this fashion. - continues on floor status with one-to-one nursing home director as needed - 01/13/2023 initiated clonazepam 1 mg p.o. b.i.d. and for now continue with p.r.n. lorazepam Status: Acute (2) Atrial fibrillation with rapid ventricular response: Problem details: Historically has had paroxysmal atrial fibrillation for number of years. Initially treated with rate control using metoprolol and anticoagulation. My understanding of her medical records is that an attempt was made at pharmacologic cardioversion utilizing amiodarone at 1 time. That was unsuccessful. She was started on sotalol. Last time she was seen by her inside sales account representative was in March of 2021. Has not had follow-up since then. Presented to our hospital on sotalol with AFib RVR. Rhythm has not changed entire time she has been in the hospital. I made the decision to stop the antiarhythmic and focus on rate control only utilizing metoprolol, diltiazem, and digoxin. Continues with anticoagulation. Status: Acute (3) Polypharmacy: Problem details: This will warrant ongoing supportive management efforts Status: Acute (4) Diabetes mellitus: Problem details: - A1C 7.4 on 10/22/22 - continue home medications with SSI and holding parameters pending po intake Status: Acute (5) Bipolar disorder: Problem details: Obviously this too can be driving her altered mental status state. Not able to add atypical antipsychotic until more time has evolved since her last dose of sotalol. Consider adding quetiapine as early as tomorrow starting at bedtime. Status: Acute (6) Hypertension: Problem details: Increased dose of metoprolol and diltiazem. With ongoing adjustment in negative chronotropic agents, will hold off on adding DAYO-inhibitor or ARB for now. Status: Acute (7) Microcytic anemia: Problem details: - chronic, likely 2/2 gastric bypass surgery - routine outpatient f/u Status: Acute (8) Hypokalemia: Problem details: Continue with potassium supplementation. Monitor magnesium. Status: Acute (9) Dehydration: Problem details: Orthostatic. Still not entirely consuming adequately to meet her needs. Status: Acute Assessment and Plan: Continue to monitor the status. (10) Difficulty swallowing: Problem details: Swallows liquids and food well. Does not swallow tablets or capsules well. Status: Acute (11) Physical debility: Problem details: For appeared time patient will need help with activities of daily living, safety. Continue with inpatient physical therapy and occupational therapy support. Status: Acute Plan 1. Reviewed impression with patient 2. Patient axis upset that daughters informed us the patient was self-administering ketamine lotion via her rectum. 3. Patient still agreeable to transitional care services for peer to time. Time Spent With Patient Total time spent: 45 minutes Subjective Time Seen by Provider: 09:00 Date Seen: 01/14/23 Interval history: Hospital day 7. Exerpts from her HPI: 62-year-old lady who was admitted in an unresponsive state earlier on 01/08/2023. She has a history of polysubstance abuse and atrial fibrillation. It was noted that the long-term she is living [in] stopped her narcotic medications because of evidence of concurrent alcohol misuse. Patient was found to be in atrial fibrillation with RVR. She also demonstrated signs and symptoms of withdrawal. The patient's RN called ... because the patient has a tendency to become hyperalert and agitated. This appears to contribute to increased tachycardia. Right now she is in atrial fibrillation with a heart rate of about [130-150]. There [has] been no concurrent drop in systolic blood pressure. The patient has been given as needed Ativan and this seems to show evidence that she is less agitated at this time. The RN feels that might be beneficial if we consider a CIWA protocol. We also discussed the probable benefit of starting a Cardizem infusion with heart rate and blood pressure parameters. She is currently on sotalol and as needed IVP doses of metoprolol. Patient more awake and interactive today compared to yesterday. I visit the patient a few times throughout the day today. She has less lightheadedness today than she had previously. Drinking fluids. Eating more. Denies nausea or vomiting. Denies abdominal pain. Denies chest heaviness, pressure, tightness, or pain. She is intermittently easily agitated and quite jovial with nursing staff. Bedside swallowing assessment reveals patient quite capable of drinking and eating food. She seems to have an aversion to swallowing tablets. Is able to swallow tablets with pudding or applesauce. Exam Narrative: Exam Narrative: I examine her in her hospital room. She is variously in her bed, or in the chair at the side of her bed. Still requires standby assist for transfers and short steps. Vision and hearing are grossly normal. Alert and oriented to self, and in part to a place, time, and situation. Articulate. For the most part cooperative. Moods can vary quite rapidly from jovial to agitation. When agitated she is easily redirected. Edentulous. Neck supple. No JVD or hepatojugular reflux. Weight is down to 91.6 kg. Admission weight was 97 kg. Lungs clear to auscultation. Heart tones chaotic, rate better controlled. Abdomen is obese with active bowel sounds, soft, nontender. Extremities without edema. Capillary refill less than 3 seconds. Moves all 4 extremities. No focal motor neurologic deficits. Const: Vital Signs, click to edit/add: Vital Signs - 24 hr 01/13/23 14:54 01/13/23 15:00 01/13/23 15:00 Temperature Pulse Rate 111 H Pulse Rate [Left R adial] 97 Pulse Rate [orthos tatic lying Pulse Oximeter] Pulse Rate [orthos tatic sitting Puls e Oximeter] Pulse Rate [orthos tatic standing Pul se Oximeter] Respiratory Rate 16 20 Blood Pressure [Le ft Arm] 125/72 Blood Pressure [Ri ght Arm] Blood Pressure [or thostatic lying Le ft Arm] Blood Pressure [or thostatic sitting Left Arm] Blood Pressure [or thostatic standing Left Arm] Pulse Oximetry 94 Oxygen Delivery Me thod Room Air Oxygen Flow Rate 0 01/13/23 15:00 01/13/23 15:30 01/13/23 16:00 Temperature 97.2 F L Pulse Rate Pulse Rate [Left R adial] 111 H 110 H 101 H Pulse Rate [orthos tatic lying Pulse Oximeter] Pulse Rate [orthos tatic sitting Puls e Oximeter] Pulse Rate [orthos tatic standing Pul se Oximeter] Respiratory Rate 20 20 Blood Pressure [Le ft Arm] 122/82 139/74 Blood Pressure [Ri ght Arm] Blood Pressure [or thostatic lying Le ft Arm] Blood Pressure [or thostatic sitting Left Arm] Blood Pressure [or thostatic standing Left Arm] Pulse Oximetry 97 97 Oxygen Delivery Me thod Room Air Room Air Oxygen Flow Rate 01/13/23 17:00 01/13/23 19:00 01/13/23 19:00 Temperature Pulse Rate Pulse Rate [Left R adial] 107 H 87 94 Pulse Rate [orthos tatic lying Pulse Oximeter] Pulse Rate [orthos tatic sitting Puls e Oximeter] Pulse Rate [orthos tatic standing Pul se Oximeter] Respiratory Rate 20 20 Blood Pressure [Le ft Arm] 141/86 H 109/96 H 109/96 H Blood Pressure [Ri ght Arm] Blood Pressure [or thostatic lying Le ft Arm] Blood Pressure [or thostatic sitting Left Arm] Blood Pressure [or thostatic standing Left Arm] Pulse Oximetry 98 94 97 Oxygen Delivery Me thod Room Air Room Air Room Air Oxygen Flow Rate 01/13/23 21:00 01/13/23 22:40 01/13/23 22:41 Temperature 98.1 F Pulse Rate 104 H Pulse Rate [Left R adial] 84 90 Pulse Rate [orthos tatic lying Pulse Oximeter] Pulse Rate [orthos tatic sitting Puls e Oximeter] Pulse Rate [orthos tatic standing Pul se Oximeter] Respiratory Rate 18 Blood Pressure [Le ft Arm] 144/94 H 128/117 H Blood Pressure [Ri ght Arm] Blood Pressure [or thostatic lying Le ft Arm] Blood Pressure [or thostatic sitting Left Arm] Blood Pressure [or thostatic standing Left Arm] Pulse Oximetry 93 100 Oxygen Delivery Me thod Room Air Room Air Oxygen Flow Rate 01/13/23 22:43 01/13/23 22:44 01/13/23 23:16 Temperature 96.1 F L Pulse Rate Pulse Rate [Left R adial] 104 H 104 H Pulse Rate [orthos tatic lying Pulse Oximeter] Pulse Rate [orthos tatic sitting Puls e Oximeter] Pulse Rate [orthos tatic standing Pul se Oximeter] Respiratory Rate 18 18 Blood Pressure [Le ft Arm] 128/79 Blood Pressure [Ri ght Arm] Blood Pressure [or thostatic lying Le ft Arm] Blood Pressure [or thostatic sitting Left Arm] Blood Pressure [or thostatic standing Left Arm] Pulse Oximetry 100 96 Oxygen Delivery Me thod Room Air Room Air Oxygen Flow Rate 0 01/13/23 23:19 01/14/23 03:35 01/14/23 03:40 Temperature 96.1 F L 96.1 F L 96.1 F L Pulse Rate Pulse Rate [Left R adial] 104 H 114 H 114 H Pulse Rate [orthos tatic lying Pulse Oximeter] Pulse Rate [orthos tatic sitting Puls e Oximeter] Pulse Rate [orthos tatic standing Pul se Oximeter] Respiratory Rate 18 20 20 Blood Pressure [Le ft Arm] 128/79 Blood Pressure [Ri ght Arm] 139/118 H 139/118 H Blood Pressure [or thostatic lying Le ft Arm] Blood Pressure [or thostatic sitting Left Arm] Blood Pressure [or thostatic standing Left Arm] Pulse Oximetry 96 98 98 Oxygen Delivery Ks thod Room Air Room Air Room Air Oxygen Flow Rate 0 0 01/14/23 07:00 01/14/23 07:00 01/14/23 07:00 Temperature 97.5 F L Pulse Rate 87 Pulse Rate [Left R adial] 104 H Pulse Rate [orthos tatic lying Pulse Oximeter] Pulse Rate [orthos tatic sitting Puls e Oximeter] Pulse Rate [orthos tatic standing Pul se Oximeter] Respiratory Rate 20 Blood Pressure [Le ft Arm] 133/106 H Blood Pressure [Ri ght Arm] Blood Pressure [or thostatic lying Le ft Arm] Blood Pressure [or thostatic sitting Left Arm] Blood Pressure [or thostatic standing Left Arm] Pulse Oximetry 97 97 Oxygen Delivery Me thod Room Air Room Air Oxygen Flow Rate 01/14/23 07:00 01/14/23 07:00 01/14/23 08:08 Temperature 97.4 F L Pulse Rate 104 H Pulse Rate [Left R adial] 104 H 104 H Pulse Rate [orthos tatic lying Pulse Oximeter] Pulse Rate [orthos tatic sitting Puls e Oximeter] Pulse Rate [orthos tatic standing Pul se Oximeter] Respiratory Rate 20 20 Blood Pressure [Le ft Arm] 133/106 H Blood Pressure [Ri ght Arm] Blood Pressure [or thostatic lying Le ft Arm] Blood Pressure [or thostatic sitting Left Arm] Blood Pressure [or thostatic standing Left Arm] Pulse Oximetry 97 Oxygen Delivery Me thod Room Air Oxygen Flow Rate 01/14/23 10:47 01/14/23 11:00 Temperature 97.4 F L Pulse Rate Pulse Rate [Left R adial] Pulse Rate [orthos tatic lying Pulse Oximeter] 85 Pulse Rate [orthos tatic sitting Puls e Oximeter] 64 Pulse Rate [orthos tatic standing Pul se Oximeter] 88 Respiratory Rate 20 Blood Pressure [Le ft Arm] Blood Pressure [Ri ght Arm] 126/100 H Blood Pressure [or thostatic lying Le ft Arm] 126/104 H Blood Pressure [or thostatic sitting Left Arm] 125/86 Blood Pressure [or thostatic standing Left Arm] 124/104 H Pulse Oximetry 97 Oxygen Delivery Me thod Room Air Oxygen Flow Rate Documenting provider has reviewed patient's vital signs: yes Labs Labs: Laboratory Results - last 24 hr 01/14/23 05:44 WBC 7.38 RBC 5.15 Hgb 12.4 Hct 41.0 MCV 80 MCH 24 L MCHC 30 L Plt Count 218 INR 2.69 H Sodium 139 Potassium 3.8 Chloride 102 Carbon Dioxide 26 BUN 22 Creatinine 0.5 Estimated Creat Clear 46.13 Estimated GFR 106 Glucose 158 H Lactate 2.2 H Calcium 9.4 Phosphorus 3.8 Magnesium 1.6 NT-Pro-B Natriuret Pep 983
--- NOTE | 2023-01-14 13:14 | PC.NURSE ---
End of Shift Note: Patient appears to be more orientated today. She can tell me her name, , where she is and then she complains about the primary provider discontinuing her medication prior to her arrival here. She did do most of her cares after cueing. Ate indep. Does frequently request ativan and have explained to her that we need to go by the hospitalist directions on when she can have this medication. She has received a scheduled dose of clonopin and x1 ativan as she was getting agitated without it. She did not order a lunch as she is currently sleeping will offer her lunch when she wakes up.
--- NOTE | 2023-01-14 16:05 | PC.SOCIAL ---
Discharge planning: Spoke with dtr Autumn ([phone]) regarding discharge plan. Autumn states she does not think pt should have been discharged from [facility] and has reached out to the [facility] department for assistance in challenging this decision. Dtr is aware of current need for SNF with 24/7 care available at discharge adn requested a newer facility in the [place], [place] and [place] areas. She would refuse placement at [facility]. Emailed list of area and extended list of nursing home facilities so that she can provide additional facilities to contact if those already provided do not have availability. pastoral worker called [facility] adult worker who states dtr has not left a message for her. She suggested dtr contact the [facility] office for her questions regarding [facility]. Provided [facility] contact information to dtr to follow up.pastoral worker to follow up as needed. pastoral worker to follow up as needed.
[2023-01-14] MEDS: ACETAMINOPHEN 325 MG TABLET 650 MG PO ×2 (16:43→20:30)
[2023-01-14] MEDS: HYDROmorphone 2 MG TABLET PO ×3 (18:40→23:56)
--- NOTE | 2023-01-14 22:40 | PC.NURSE ---
Addendum entered by Rubi Roche RN 01/14/23 22:47: She states her heart is hurting this afternoon. She denies pain radiation or SOB; endorses palpitations. She states this has come and gone this afternoon. updated- no new orders. Original Note: Shift [id number]- Patient pleasant and cooperative throughout shift. She requests ativan at times, and pain medication for lower back pain- see eMAR for administrations. She also requests to walk in guidry as she feel like she is a bit weak- which is done with SILVER, gait belt and walker. She is also up to chair for supper.
[2023-01-15] VITALS (11 sets, daily range): BP systolic 124–150; BP diastolic 88–110; PULSE 83–103; RESP 16–20; TEMP 36.1–37; O2SAT 95–100
[2023-01-15] MEDS: dilTIAZem 30 MG TABLET 60 MG PO ×4 (03:36→21:48)
[2023-01-15] MEDS: METOPROLOL TARTRATE 50 MG TABLET PO ×4 (03:36→21:48)
[2023-01-15] MEDS: LORazepam 1 MG TABLET PO (03:37)
--- NOTE | 2023-01-15 06:27 | PC.NURSE ---
[id number]: Patient restless during noc asking for pain medications and Ativan. PO Dilaudid x1 and Ativan x1 for minimal relief. HR 80-105 on Tele monitor. A1/walker to BR and tolerates well. Eating and voiding.
[2023-01-15] MEDS: ACETAMINOPHEN 325 MG TABLET 650 MG PO ×4 (09:15→20:24)
[2023-01-15] MEDS: ATORVASTATIN CALCIUM 40 MG TABLET PO (09:16)
[2023-01-15] MEDS: clonazePAM 0.5 MG TABLET 1 MG PO ×2 (09:16→20:25)
[2023-01-15] MEDS: METFORMIN 500 MG TABLET PO ×2 (09:17→20:24)
[2023-01-15] MEDS: DIGOXIN 125 MCG TABLET PO (09:17)
[2023-01-15] MEDS: PANTOPRAZOLE SODIUM 40 MG INJ IVP ×2 (09:17→09:36)
[2023-01-15] MEDS: SODIUM CHLORIDE 0.9 % (FLUSH) 10 ML SYRINGE 5 ML IVF ×2 (09:18→20:36)
[2023-01-15] MEDS: TORSEMIDE 5 MG TABLET 25 MG PO (09:18)
[2023-01-15] MEDS: SERTRALINE 100 MG TABLET 200 MG PO (09:18)
[2023-01-15] MEDS: HYDROmorphone 0.5 mg/0.5 ml inj IVP (09:36)
--- NOTE | 2023-01-15 10:14 | NUTR.NU ---
RDN with nutrition follow-up. Patient reports a good appetite today. Per nursing documentation, patient ate 0-25% of meals 01/12/23, 0-50% of meals 01/13/23, and 0-100% of meals on 01/14/23. Meal intakes are improving per documentation. Patient reports liking the Enlive and would like to continue with this as ordered. Mighty shake, Ensure Clear, or Magic cup offered if patient refused Enlive. Per nursing documentation, patient consumed 50-75% of Enlive on 01/13/23 and consumed 0-50% of Enlive on 01/14/23. Enlive BID provides ~700 kcals and ~40 grams of protein. VICTORIAN LITERATURE PROFESSOR completed bedside evaluation. Patient swallows liquids and foods well, but does have difficultly swallowing tablets per VICTORIAN LITERATURE PROFESSOR. Admission weight of 215lbs 01/08/23 shows weight loss of 19lbs or 8.8% with current weight at 196lbs on 01/15/23. Of note, resident is currently taking Torsemide. Resident continues on a regular diet, per MD and VICTORIAN LITERATURE PROFESSOR order. RDN will continue to follow and monitor.
--- NOTE | 2023-01-15 11:06 | PC.SOCIAL ---
Addendum entered by Shannon Castillo LCSW 01/15/23 16:17: [facility] left message that they had openings. (Fany [phone] ext [phone]) Faxed packet to [facility] in [place] (fax [phone]) Addendum entered by Shannon Castillo LCSW 01/15/23 11:49: [facility] declined patient due to needs and previous durg use Original Note: Discharge Planning: Social work made calls to facilities for placement: 1.[facility]- Message left 2.[facility]- Message left 3.[facility]- Called, packet faxed and facility is accessing. Social work to follow up a s needed.
[2023-01-15] MEDS: LORazepam 2 MG/ML inj 0.5 MG IVP ×2 (11:25→20:35)
[2023-01-15] MEDS: HYDROmorphone 2 MG TABLET PO ×3 (12:55→20:25)
--- NOTE | 2023-01-15 15:44 | PM.IMPN1 ---
Progress Note: A&P Assessment and plan (1) Altered mental status: Problem details: - differential diagnosis is broad and includes substance use, including methamphetamine, cocaine, PCP, withdrawal from opiates or benzodiazepines or methamphetamine, encephalopathy, ETOH withdrawal, intracranial process, atypical ACS, serotonin syndrome. On 01/11/2023 we learned that patient had been administering ketamine topical lotion via her rectum for some time. [place], [place], indicated that it is possible that her current condition is a reflection of her withdrawal from the ketamine she has been self administering in this fashion. - continues on floor status with one-to-one nursing home aide as needed - 01/13/2023 initiated clonazepam 1 mg p.o. b.i.d. and for now continue with p.r.n. lorazepam Status: Acute (2) Atrial fibrillation with rapid ventricular response: Problem details: Historically has had paroxysmal atrial fibrillation for number of years. Initially treated with rate control using metoprolol and anticoagulation. My understanding of her medical records is that an attempt was made at pharmacologic cardioversion utilizing amiodarone at 1 time. That was unsuccessful. She was started on sotalol. Last time she was seen by her deputy chief counsel was in March of 2021. Has not had follow-up since then. Presented to our hospital on sotalol with AFib RVR. Rhythm has not changed entire time she has been in the hospital. I made the decision to stop the antiarhythmic and focus on rate control only utilizing metoprolol, diltiazem, and digoxin. Continues with warfarin anticoagulation with daily INRs. Status: Acute (3) Polypharmacy: Problem details: This will warrant ongoing supportive management efforts Status: Acute (4) Diabetes mellitus: Problem details: - A1C 7.4 on 10/22/22 - continue home medications with SSI and holding parameters pending po intake Status: Acute (5) Bipolar disorder: Problem details: Obviously this too can be driving her altered mental status state. Not able to add atypical antipsychotic until more time has evolved since her last dose of sotalol. Consider adding quetiapine as early as tomorrow starting at bedtime. Status: Acute (6) Hypertension: Problem details: Increased dose of metoprolol and diltiazem. With ongoing adjustment in negative chronotropic agents, will hold off on adding DAYO-inhibitor or ARB for now. Status: Acute (7) Microcytic anemia: Problem details: - chronic, likely 2/2 gastric bypass surgery - routine outpatient f/u Status: Acute (8) Hypokalemia: Problem details: Continue with potassium supplementation. Monitor magnesium. Status: Acute (9) Dehydration: Problem details: Orthostatic. Still not entirely consuming adequately to meet her needs. Status: Acute (10) Difficulty swallowing: Problem details: Bedside swallow evaluation demonstrates patient quite able of swallowing liquids and food well. Does not swallow tablets or capsules well, seemingly an aversion. Status: Acute (11) Physical debility: Problem details: For appeared time patient will need help with activities of daily living, safety. Continue with inpatient physical therapy and occupational therapy support. Status: Acute Plan 1. Reviewed impression with patient 2. Discuss with hospice social worker and nursing staff and morning report. 3. Continue with plans for transitional care services if at all possible. 4. Continue with short-acting negative chronotropic agents as presently instituted. Given patient's version to swallowing tablets she is presently not a candidate for long-acting negative chronotropic agents. 5. Continue with warfarin dosing daily and INRs daily. On presentation was on warfarin 3 mg daily. Presently I am initiating warfarin 2 mg daily. 6. Continue to work with occupational therapy to assess her cognitive abilities. 7. Continue to work with physical therapy and occupational therapy for safe ambulation and ability to carry out own ADLs. Time Spent With Patient Total time spent: 40 Subjective Time Seen by Provider: 09:00 Date Seen: 01/15/23 Interval history: Hospital day 7. Exerpts from her HPI: 62-year-old lady who was admitted in an unresponsive state earlier on 01/08/2023. She has a history of polysubstance abuse and atrial fibrillation. It was noted that the residential she is living [in] stopped her narcotic medications because of evidence of concurrent alcohol misuse. Patient was found to be in atrial fibrillation with RVR. She also demonstrated signs and symptoms of withdrawal. The patient's RN called ... because the patient has a tendency to become hyperalert and agitated. This appears to contribute to increased tachycardia. Right now she is in atrial fibrillation with a heart rate of about [130-150]. There [has] been no concurrent drop in systolic blood pressure. The patient has been given as needed Ativan and this seems to show evidence that she is less agitated at this time. The RN feels that might be beneficial if we consider a CIWA protocol. We also discussed the probable benefit of starting a Cardizem infusion with heart rate and blood pressure parameters. She is currently on sotalol and as needed IVP doses of metoprolol. Continues to be generally more awake and interactive compared to previous days. I visit the patient a few times throughout the day today. Denies lightheadedness. Drinking fluids. Eating more. Denies nausea or vomiting. Denies abdominal pain. Denies chest heaviness, pressure, tightness, or pain. She is intermittently easily agitated and quite jovial with nursing and rehabilitation staff. Bedside swallowing assessment 01/14/2023 reveals patient quite capable of drinking and eating food. She seems to have an aversion to swallowing tablets. Is able to swallow tablets with pudding or applesauce. Exam Narrative: Exam Narrative: Appears comfortable and in no acute distress. Able to indicate when she needs help. Hearing and vision are grossly normal. Alert, oriented to self, place, is able to be oriented to time and somewhat to situation. Friendly and talkative. Struggles to stay on track with a conversation. Lungs clear to auscultation. Heart tones with chaotic rhythm. Abdomen with active bowel sounds, soft, nontender. Extremities without edema. Transfers with standby assist and use of walker and gait belt. Able to feed self. Const: Vital Signs, click to edit/add: Vital Signs - 24 hr 01/14/23 16:00 01/14/23 16:00 01/14/23 16:13 Temperature 97.3 F L Pulse Rate 122 H Pulse Rate [Left R adial] 81 Respiratory Rate 18 Blood Pressure [Le ft Arm] 104/84 Pulse Oximetry 98 98 Oxygen Delivery Me thod Room Air Room Air 01/14/23 18:57 01/14/23 23:00 01/14/23 23:00 Temperature Pulse Rate 101 H Pulse Rate [Left R adial] 76 Respiratory Rate 18 20 Blood Pressure [Le ft Arm] 139/89 Pulse Oximetry 100 95 Oxygen Delivery Me thod Room Air Room Air 01/14/23 23:45 01/15/23 00:32 01/15/23 03:33 Temperature 98.6 F 98.6 F 96.9 F L Pulse Rate Pulse Rate [Left R adial] 98 98 103 H Respiratory Rate 20 20 20 Blood Pressure [Le ft Arm] 136/103 H 136/103 H 125/105 H Pulse Oximetry 95 95 100 Oxygen Delivery Me thod Room Air Room Air Room Air 01/15/23 04:02 01/15/23 07:00 01/15/23 07:00 Temperature 96.9 F L Pulse Rate 83 Pulse Rate [Left R adial] 103 H 90 Respiratory Rate 20 20 Blood Pressure [Le ft Arm] 125/105 H Pulse Oximetry 100 Oxygen Delivery Or thod Room Air 01/15/23 07:00 01/15/23 07:00 01/15/23 09:17 Temperature 97.9 F Pulse Rate 85 Pulse Rate [Left R adial] 90 Respiratory Rate 20 20 Blood Pressure [Le ft Arm] 150/94 H Pulse Oximetry 99 99 Oxygen Delivery Or thod Room Air Room Air 01/15/23 10:53 Temperature 97.6 F Pulse Rate Pulse Rate [Left R adial] 90 Respiratory Rate 20 Blood Pressure [Le ft Arm] 128/110 H Pulse Oximetry 99 Oxygen Delivery Or thod Room Air Documenting provider has reviewed patient's vital signs: yes
[2023-01-15] MEDS: WARFARIN 2 MG TABLET PO (18:44)
[2023-01-16] VITALS (10 sets, daily range): BP systolic 131–164; BP diastolic 86–119; PULSE 70–119; RESP 18; TEMP 36.1–36.7; O2SAT 97–100
[2023-01-16] MEDS: HYDROmorphone 2 MG TABLET PO ×5 (00:34→20:42)
[2023-01-16] MEDS: METOPROLOL TARTRATE 50 MG TABLET PO ×3 (03:34→15:55)
[2023-01-16] MEDS: dilTIAZem 30 MG TABLET 60 MG PO ×4 (03:34→23:00)
[2023-01-16] MEDS: LORazepam 1 MG TABLET PO ×2 (03:35→12:48)
[2023-01-16] MEDS: OMEPRAZOLE 20 MG CAPSULE DR PO (06:44)
[2023-01-16 06:56] LABS: Lactate* 1.9 mmol/L (0.5-1.9)
--- NOTE | 2023-01-16 06:58 | PC.NURSE ---
A&O, pleasant and cooperative. HR in the high 90s. Pt restless, PRN Ativan given. Complains of back pain, PRN dilated given x1. A1 w/ walker and gait belt. Bed alarm in place.
[2023-01-16 07:03] LABS: Hemoglobin* 12.3 gm/dL (12.0-16.0); Mean Corpuscular HGB Conc 30 gm/dL (32-36); Mean Corpuscular Hemoglobin 25 pg (26-34); Mean Corpuscular Volume 83 fL (80-100); Platelet Count* 192 K/uL (140-440); Red Blood Count 4.95 m/uL (4.00-5.20); White Blood Count* 5.46 K/uL (4.50-11.00)
[2023-01-16 07:17] LABS: INR 1.77 (0.91-1.10); Prothrombin Time 21.6 Seconds
[2023-01-16 07:35] LABS: NT Pro B Type NatriureticPept* 1010 pg/mL
[2023-01-16 07:49] LABS: Slide Review Reflex Yes
[2023-01-16 07:55] LABS: Slide Review Acceptable Review (Acceptable)
[2023-01-16] MEDS: clonazePAM 0.5 MG TABLET 1 MG PO ×2 (09:03→20:42)
[2023-01-16] MEDS: ATORVASTATIN CALCIUM 40 MG TABLET PO (09:03)
[2023-01-16] MEDS: DIGOXIN 125 MCG TABLET PO (09:03)
[2023-01-16] MEDS: SERTRALINE 100 MG TABLET 200 MG PO (09:04)
[2023-01-16] MEDS: TORSEMIDE 5 MG TABLET 25 MG PO (09:04)
[2023-01-16] MEDS: METFORMIN 500 MG TABLET PO ×2 (09:04→20:42)
--- NOTE | 2023-01-16 13:54 | PC.SOCIAL ---
Discharge Planning: Left another message for daughterAuutmn to call back on placement. [facility] will continue to contact SNFs for possible placement. Still waiting for phone call back from [facility]. Social work to follow up.
--- NOTE | 2023-01-16 15:34 | PC.NURSE ---
Nursing Care Hours: [id number] pt this shift calm and cooperative. Alert to self. Intermittent confusion about situation. Ativan given per eMAR for restlessness and agitation. Dilaudid given PRN for low back pain. Eating and drinking. Insulin given per eMAR. pt picked scab open on R upper arm, not bleeding and pt refused bandaid. Showered end of shift with OT. Impulsive behavior and setting off bed and chair alarms and putting papers in the BSC for storage. Orthostatics pressures done.
--- NOTE | 2023-01-16 16:10 | P.IMPN_ITS ---
Progress Note: A&P Assessment and plan (1) Altered mental status: Problem details: - differential diagnosis is broad and includes substance use, including methamphetamine, cocaine, PCP, withdrawal from opiates or benzodiazepines or methamphetamine, encephalopathy, ETOH withdrawal, intracranial process, atypical ACS, serotonin syndrome. On 01/11/2023 we learned that patient had been administering ketamine topical lotion via her rectum for some time. [place], [place], indicated that it is possible that her current condition is a reflection of her withdrawal from the ketamine she has been self administering in this fashion. - continues on floor status with one-to-one occupational health nursing director as needed - 01/13/2023 initiated clonazepam 1 mg p.o. b.i.d. and for now continue with p.r.n. lorazepam Status: Acute Assessment and Plan: Condition vastly improved from when she 1st presented. Much more stable on scheduled clonazepam 1 mg b.i.d.. Consider decreasing dose if appropriate. (2) Atrial fibrillation with rapid ventricular response: Problem details: Historically has had paroxysmal atrial fibrillation for number of years. Initially treated with rate control using metoprolol and anticoagulation. My understanding of her medical records is that an attempt was made at pharmacologic cardioversion utilizing amiodarone at 1 time. That was unsuccessful. She was started on sotalol. Last time she was seen by her battery charger tester was in March of 2021. Has not had follow-up since then. Presented to our hospital on sotalol with AFib RVR. Rhythm has not changed entire time she has been in the hospital. I made the decision to stop the antiarhythmic and focus on rate control only utilizing metoprolol, diltiazem, and digoxin. Continues with warfarin anticoagulation with daily INRs. Status: Acute Assessment and Plan: Doing well on immediate release oral metoprolol and diltiazem. Does not do well with metoprolol succinate or diltiazem CD, because patient tries to chew these medicines and set of swallowing them. Continue with daily INRs and warfarin dosing. For today we will give her warfarin 4 mg and then start scheduling her back on her usual dose of warfarin 3 mg daily. INR goal is 2-3 due to her atrial fibrillation. (3) Polypharmacy: Problem details: This will warrant ongoing supportive management efforts Status: Acute (4) Diabetes mellitus: Problem details: - A1C 7.4 on 10/22/22 - continue home medications with SSI and holding parameters pending po intake Status: Acute (5) Bipolar disorder: Problem details: Obviously this too can be driving her altered mental status state. Not able to add atypical antipsychotic until more time has evolved since her last dose of sotalol. Consider adding quetiapine as early as tomorrow starting at bedtime. Status: Acute Assessment and Plan: Currently not on an atypical antipsychotic. Consider if needed. Currently not manic or hypomanic. (6) Hypertension: Problem details: Increased dose of metoprolol and diltiazem. With ongoing adjustment in negative chronotropic agents, will hold off on adding DAYO-inhibitor or ARB for now. Status: Acute (7) Microcytic anemia: Problem details: - chronic, likely 2/2 gastric bypass surgery - routine outpatient f/u Status: Acute (8) Hypokalemia: Problem details: Continue with potassium supplementation. Monitor magnesium. Status: Acute (9) Dehydration: Problem details: Orthostatic. Still not entirely consuming adequately to meet her needs. Status: Acute (10) Difficulty swallowing: Problem details: Bedside swallow evaluation demonstrates patient quite able of swallowing liquids and food well. Does not swallow tablets or capsules well, seemingly an aversion. Status: Acute (11) Physical debility: Problem details: For appeared time patient will need help with activities of daily living, safety. Continue with inpatient physical therapy and occupational therapy support. Status: Acute Plan 1. Reviewed impression with patient. It seems clear that she does not understand the complexity of her underlying conditions. She is agreeable to transitional care services. 2. Await snf facility availability. [employer] Consultant continues to work toward trying to establish this. 3. Continue with physical and occupational therapy support. Time Spent With Patient Total time spent: 30 minutes Subjective Time Seen by Provider: 09:00 Date Seen: 01/16/23 Interval history: Hospital day 8. Exerpts from her HPI: 62-year-old lady who was admitted in an unresponsive state earlier on 01/08/2023. She has a history of polysubstance abuse and atrial fibrillation. It was noted that the custodial she is living [in] stopped her narcotic medications because of evidence of concurrent alcohol misuse. Patient was found to be in atrial fibrillation with RVR. She also demonstrated signs and symptoms of withdrawal. The patient's RN called ... because the patient has a tendency to become hyperalert and agitated. This appears to contribute to increased tachycardia. Right now she is in atrial fibrillation with a heart rate of about [130-150]. There [has] been no concurrent drop in systolic blood pressure. The patient has been given as needed Ativan and this seems to show evidence that she is less agitated at this time. The RN feels that might be beneficial if we consider a CIWA protocol. We also discussed the probable benefit of starting a Cardizem infusion with heart rate and blood pressure pa rameters. She is currently on sotalol and as needed IVP doses of metoprolol. Her level of alertness and orientation remains much improved than when she 1st came in. While she takes short naps often on throughout the day she remains more awake and interactive compared to previous days. I visit the patient a few times throughout the day today. Denies lightheadedness. Drinking fluids. Eating more. Denies nausea or vomiting. Denies abdominal pain. Denies chest heaviness, pressure, tightness, or pain. She is less easily agitated and quite jovial with nursing and rehabilitation staff. She is more independent. Not requiring directing any longer. No longer requiring one-to-one nursing cares. Still impulsive and needs some supervision and monitoring. Bedside swallowing assessment 01/14/2023 reveals patient quite capable of drinking and eating food. She seems to have an aversion to swallowing tablets. Is able to swallow tablets with pudding or applesauce. Eating independently in the room after food prep and setup. Exam Narrative: Exam Narrative: I examined in her hospital room. She is sitting in a chair at bedside eating independently. Appears comfortable and in no acute distress. Alert and oriented to self, place, in part to time, in part to situation. Pleasant. Enjoys talking. Not able to stay focused when she talks. I ask her about 1 subject and she starts to answer the subject and then she wonders off when some other thoughts. Easily redirected. This is much improved from previously. Edentulous. Lungs remain clear to auscultation. Heart tones with chaotic rhythm but rate much better controlled. Abdomen with active bowel sounds, soft, nontender. Extremities without edema. Able to transfer with standby assist and gait belt and walker. Able to walk a few steps with standby assist and gait belt and walker. No focal motor neurologic deficits. Const: Vital Signs, click to edit/add: Vital Signs - 24 hr 01/15/23 19:21 01/15/23 20:06 01/15/23 23:00 Temperature 97.5 F L 97.5 F L Pulse Rate Pulse Rate [Left R adial] 88 88 Pulse Rate [orthos tatic lying Pulse Oximeter] Pulse Rate [orthos tatic sitting Puls e Oximeter] Pulse Rate [orthos tatic standing Pul se Oximeter] Respiratory Rate 16 16 20 Blood Pressure [Le ft Arm] 133/97 H 133/97 H Blood Pressure [Ri ght Arm] 126/100 H Blood Pressure [or thostatic lying Le ft Arm] Blood Pressure [or thostatic sitting Left Arm] Blood Pressure [or thostatic standing Left Arm] Pulse Oximetry 97 97 96 Oxygen Delivery Me thod Room Air Room Air Room Air Oxygen Flow Rate 0 01/15/23 23:00 01/15/23 23:30 01/16/23 03:00 Temperature 97.0 F L Pulse Rate Pulse Rate [Left R adial] 93 93 Pulse Rate [orthos tatic lying Pulse Oximeter] Pulse Rate [orthos tatic sitting Puls e Oximeter] Pulse Rate [orthos tatic standing Pul se Oximeter] Respiratory Rate 20 18 Blood Pressure [Le ft Arm] 124/92 H Blood Pressure [Ri ght Arm] 152/97 H Blood Pressure [or thostatic lying Le ft Arm] Blood Pressure [or thostatic sitting Left Arm] Blood Pressure [or thostatic standing Left Arm] Pulse Oximetry 96 Oxygen Delivery Me thod Room Air Oxygen Flow Rate 01/16/23 05:23 01/16/23 07:00 01/16/23 07:00 Temperature Pulse Rate Pulse Rate [Left R adial] 86 Pulse Rate [orthos tatic lying Pulse Oximeter] Pulse Rate [orthos tatic sitting Puls e Oximeter] Pulse Rate [orthos tatic standing Pul se Oximeter] Respiratory Rate 18 18 18 Blood Pressure [Le ft Arm] Blood Pressure [Ri ght Arm] Blood Pressure [or thostatic lying Le ft Arm] Blood Pressure [or thostatic sitting Left Arm] Blood Pressure [or thostatic standing Left Arm] Pulse Oximetry 100 Oxygen Delivery Me thod Room Air Oxygen Flow Rate 01/16/23 07:00 01/16/23 09:03 01/16/23 11:00 Temperature Pulse Rate 86 Pulse Rate [Left R adial] 107 H Pulse Rate [orthos tatic lying Pulse Oximeter] Pulse Rate [orthos tatic sitting Puls e Oximeter] Pulse Rate [orthos tatic standing Pul se Oximeter] Respiratory Rate 18 18 Blood Pressure [Le ft Arm] 145/86 H Blood Pressure [Ri ght Arm] 143/111 H Blood Pressure [or thostatic lying Le ft Arm] Blood Pressure [or thostatic sitting Left Arm] Blood Pressure [or thostatic standing Left Arm] Pulse Oximetry 100 Oxygen Delivery Me thod Room Air Oxygen Flow Rate 01/16/23 13:00 01/16/23 15:37 01/16/23 15:37 Temperature 96.9 F L Pulse Rate Pulse Rate [Left R adial] 70 Pulse Rate [orthos tatic lying Pulse Oximeter] 111 H Pulse Rate [orthos tatic sitting Puls e Oximeter] 119 H Pulse Rate [orthos tatic standing Pul se Oximeter] 108 H Respiratory Rate 18 Blood Pressure [Le ft Arm] 131/94 H Blood Pressure [Ri ght Arm] Blood Pressure [or thostatic lying Le ft Arm] 143/111 H Blood Pressure [or thostatic sitting Left Arm] 164/119 H Blood Pressure [or thostatic standing Left Arm] 157/114 H Pulse Oximetry 100 100 Oxygen Delivery Me thod Room Air Room Air Oxygen Flow Rate Documenting provider has reviewed patient's vital signs: yes Labs Labs: Laboratory Results - last 24 hr 01/16/23 05:47 WBC 5.46 RBC 4.95 Hgb 12.3 Hct 41.0 MCV 83 MCH 25 L MCHC 30 L Plt Count 192 Diff Slide Review Acceptable Review INR 1.77 H Lactate 1.9 NT-Pro-B Natriuret Pep 1010
[2023-01-16] MEDS: WARFARIN 2 MG TABLET 4 MG PO (16:30)
[2023-01-16] MEDS: METOPROLOL SUCCINATE (XL) 100 MG TAB PO (20:42)
--- NOTE | 2023-01-16 23:19 | PC.NURSE ---
Shift [id number]- Patient is pleasant and cooperative, making non-sensical (though good-natured) conversation at times. She showers with PT this afternoon. Pain medication administered per request- see eMAR.
[2023-01-17] VITALS (7 sets, daily range): BP systolic 124–141; BP diastolic 74–127; PULSE 68–96; RESP 16–18; TEMP 36.4–36.6; O2SAT 97–99
[2023-01-17] MEDS: HYDROmorphone 2 MG TABLET PO ×5 (00:22→20:24)
[2023-01-17 06:13] LABS: Hemoglobin* 12.2 gm/dL (12.0-16.0)
[2023-01-17] MEDS: OMEPRAZOLE 20 MG CAPSULE DR PO (06:15)
[2023-01-17 06:26] LABS: Chloride* 103 mmol/L (96-114); Potassium* 3.6 mmol/L (3.6-5.1); Sodium* 139 mmol/L (135-149)
[2023-01-17 06:27] LABS: INR 1.75 (0.91-1.10); Prothrombin Time 21.3 Seconds
[2023-01-17 06:29] LABS: Blood Urea Nitrogen* 18 mg/dL (7-30); Carbon Dioxide* 28 mmol/L (20-32); Creatinine* 0.5 mg/dL (0.5-1.5); Est. Creatinine Clearance* 46.13; Estimated Glomerular Filt Rate 106 ml/min; Glucose* 141 mg/dL (60-115)
[2023-01-17 06:30] LABS: Calcium* 9.2 mg/dL (8.4-10.6); Phosphorus* 4.5 mg/dL (2.5-4.5)
--- NOTE | 2023-01-17 06:55 | PC.NURSE ---
Pt pleasant and cooperative. She has slept all night. Up to BR x2. EKG done this morning.
[2023-01-17] MEDS: ATORVASTATIN CALCIUM 40 MG TABLET PO (09:56)
[2023-01-17] MEDS: METOPROLOL SUCCINATE (XL) 100 MG TAB PO ×2 (09:56→20:24)
[2023-01-17] MEDS: METFORMIN 500 MG TABLET PO ×2 (09:56→20:24)
[2023-01-17] MEDS: TORSEMIDE 5 MG TABLET 25 MG PO (09:56)
[2023-01-17] MEDS: clonazePAM 0.5 MG TABLET 1 MG PO ×2 (09:56→20:23)
[2023-01-17] MEDS: DIGOXIN 125 MCG TABLET PO (09:57)
[2023-01-17] MEDS: SERTRALINE 100 MG TABLET 200 MG PO (09:58)
[2023-01-17] MEDS: SODIUM CHLORIDE 0.9 % (FLUSH) 10 ML SYRINGE 5 ML IVF ×2 (09:59→20:28)
[2023-01-17] MEDS: LORazepam 0.5 MG TABLET PO ×2 (12:26→20:24)
--- NOTE | 2023-01-17 16:38 | PM.IMPN1 ---
Progress Note: A&P Assessment and plan (1) Altered mental status: Problem details: - differential diagnosis is broad and includes substance use, including methamphetamine, cocaine, PCP, withdrawal from opiates or benzodiazepines or methamphetamine, encephalopathy, ETOH withdrawal, intracranial process, atypical ACS, serotonin syndrome. On 01/11/2023 we learned that patient had been administering ketamine topical lotion via her rectum for some time. [place], [place], indicated that it is possible that her current condition is a reflection of her withdrawal from the ketamine she has been self administering in this fashion. - continues on floor status with one-to-one doctor of nursing practice as needed - 01/13/2023 initiated clonazepam 1 mg p.o. b.i.d. and for now continue with p.r.n. lorazepam - 01/17/23 Improving. Pleasant. Status: Acute (2) Atrial fibrillation with rapid ventricular response: Problem details: - Historically has had paroxysmal atrial fibrillation for number of years. Initially treated with rate control using metoprolol and anticoagulation. My understanding of her medical records is that an attempt was made at pharmacologic cardioversion utilizing amiodarone at 1 time. That was unsuccessful. She was started on sotalol. Last time she was seen by her research associate was in March of 2021. Has not had follow-up since then. - Presented to our hospital on sotalol with AFib RVR. Rhythm has not changed entire time she has been in the hospital. I made the decision to stop the antiarhythmic and focus on rate control only utilizing metoprolol, diltiazem, and digoxin. Continues with warfarin anticoagulation with daily INRs. - Rate control variable, elevated last evening. Continue current regimen for rate control. I do not think she would tolerate coming off digoxin. Check level on Thu or . - INR is subtherapeutic. Increase dose today. Status: Acute (3) Polypharmacy: Problem details: This will warrant ongoing supportive management efforts Status: Acute (4) Diabetes mellitus: Problem details: - A1C 7.4 on 10/22/22 - continue home medications with SSI. - Gluc elevated. Increase SSI. Status: Acute (5) Bipolar disorder: Problem details: Obviously this too can be driving her altered mental status state. Not able to add atypical antipsychotic until more time has evolved since her last dose of sotalol. Consider adding quetiapine as early as tomorrow starting at bedtime. Currently not on an atypical antipsychotic. Consider if needed. Currently not manic or hypomanic. Status: Acute (6) Hypertension: Problem details: DBP remains elevated. Add Gabe-inh. Status: Acute (7) Microcytic anemia: Problem details: - chronic, likely 2/2 gastric bypass surgery - routine outpatient f/u Status: Acute (8) Hypokalemia: Problem details: Continue with potassium supplementation. Monitor magnesium. Status: Resolved (9) Difficulty swallowing: Problem details: Bedside swallow evaluation demonstrates patient quite able of swallowing liquids and food well. Does not swallow tablets or capsules well, seemingly an aversion. Status: Acute (10) Physical debility: Problem details: For appeared time patient will need help with activities of daily living, safety. Continue with inpatient physical therapy and occupational therapy support. Status: Acute Plan Await correction facility availability. [facility]er continues to work toward trying to establish this. Continue with physical and occupational therapy support. Subjective Time Seen by Provider: 09:00 Date Seen: 01/17/23 Interval history: Brandee came out to the nurses station disheveled with one sock on and the other missing. She had a blanket wrapped around her and was just chatting with anyone at the station. I walked her back into her room and she said she was hungry for breakfast. She has no complaints. Exam Narrative: Exam Narrative: General: No acute distress. Awake, alert, oriented to self, place and month, not day or day of the week. No pallor. No jaundice. Oropharynx: Clear. Mucous membranes moist. Cardiovascular: Irregularly irregular. No murmurs, gallops, or rubs. Respiratory: Clear to auscultation bilaterally. No wheezes or crackles. Abdomen: Bowel sounds present. Soft, nondistended, nontender. Extremities: No pedal edema. Const: Vital Signs, click to edit/add: Vital Signs - 24 hr 01/16/23 19:00 01/16/23 19:52 01/16/23 23:00 Temperature 98.1 F Pulse Rate Pulse Rate [Left R adial] 89 Respiratory Rate 18 Blood Pressure [Le ft Arm] 134/101 H Pulse Oximetry 97 97 Oxygen Delivery Me thod Room Air Oxygen Flow Rate 01/16/23 23:00 01/17/23 07:00 01/17/23 07:00 Temperature 97.8 F Pulse Rate Pulse Rate [Left R adial] 89 89 Respiratory Rate 18 18 18 Blood Pressure [Le ft Arm] 145/105 H Pulse Oximetry 97 97 Oxygen Delivery Me thod Room Air Room Air Oxygen Flow Rate 0 01/17/23 07:00 01/17/23 09:57 Temperature 97.9 F Pulse Rate 91 Pulse Rate [Left R adial] 91 Respiratory Rate 18 Blood Pressure [Le ft Arm] 141/127 H Pulse Oximetry 97 Oxygen Delivery Me thod Room Air Oxygen Flow Rate 0 Labs Labs: Laboratory Results - last 24 hr 01/17/23 05:30 Hgb 12.2 INR 1.75 H Sodium 139 Potassium 3.6 Chloride 103 Carbon Dioxide 28 BUN 18 Creatinine 0.5 Estimated Creat Clear 46.13 Estimated GFR 106 Glucose 141 H Calcium 9.2 Phosphorus 4.5 Albumin 4.0
[2023-01-17] MEDS: WARFARIN 2 MG TABLET 4 MG PO (18:43)
[2023-01-17] MEDS: dilTIAZem 30 MG TABLET 60 MG PO (21:03)
[2023-01-18] VITALS (9 sets, daily range): BP systolic 124–128; BP diastolic 78–90; PULSE 87–98; RESP 16–18; TEMP 36.6; O2SAT 96–98
[2023-01-18] MEDS: OMEPRAZOLE 20 MG CAPSULE DR PO (06:09)
[2023-01-18 07:17] LABS: INR 2.03 (0.91-1.10)
[2023-01-18] MEDS: ATORVASTATIN CALCIUM 40 MG TABLET PO (08:48)
[2023-01-18] MEDS: METOPROLOL SUCCINATE (XL) 100 MG TAB PO ×2 (08:48→20:40)
[2023-01-18] MEDS: lisinopriL 10 MG TABLET PO (08:49)
[2023-01-18] MEDS: METFORMIN 500 MG TABLET PO ×2 (08:49→20:40)
[2023-01-18] MEDS: SERTRALINE 100 MG TABLET 200 MG PO (08:49)
[2023-01-18] MEDS: DIGOXIN 125 MCG TABLET PO (08:49)
[2023-01-18] MEDS: clonazePAM 0.5 MG TABLET 1 MG PO ×2 (08:49→20:40)
[2023-01-18] MEDS: TORSEMIDE 5 MG TABLET 25 MG PO (08:49)
[2023-01-18] MEDS: SODIUM CHLORIDE 0.9 % (FLUSH) 10 ML SYRINGE 5 ML IVF ×2 (08:50→20:46)
--- NOTE | 2023-01-18 09:08 | P.IMPN_ITS ---
Progress Note: A&P Assessment and plan (1) Altered mental status: Problem details: - differential diagnosis is broad and includes substance use, including methamphetamine, cocaine, PCP, withdrawal from opiates or benzodiazepines or methamphetamine, encephalopathy, ETOH withdrawal, intracranial process, atypical ACS, serotonin syndrome. On 01/11/2023 we learned that patient had been administering ketamine topical lotion via her rectum for some time. [place], [place], indicated that it is possible that her current condition is a reflection of her withdrawal from the ketamine she has been self administering in this fashion. - continues on floor status with one-to-one nursing informatics clinical analyst as needed - 01/13/2023 initiated clonazepam 1 mg p.o. b.i.d. and for now continue with p.r.n. lorazepam - 01/17/23 Improving. Pleasant. - 01/18 Mostly pleasant. Remains somewhat confused and unable to do ADLs, executive function and problem solving are significantly impaired. Status: Acute (2) Atrial fibrillation with rapid ventricular response: Problem details: - Historically has had paroxysmal atrial fibrillation for number of years. Initially treated with rate control using metoprolol and anticoagulation. My understanding of her medical records is that an attempt was made at pharmacologic cardioversion utilizing amiodarone at 1 time. That was unsuccessful. She was started on sotalol. Last time she was seen by her bonsai tender was in March of 2021. Has not had follow-up since then. - Presented to our hospital on sotalol with AFib RVR. Rhythm has not changed entire time she has been in the hospital. I made the decision to stop the antiarhythmic and focus on rate control only utilizing metoprolol, diltiazem, and digoxin. Continues with warfarin anticoagulation with daily INRs. - Rate control variable, elevated last evening. Continue current regimen for rate control. I do not think she would tolerate coming off digoxin. Check level on Mon or . - INR is therapeutic, continue current warfarin dosing, which is slightly higher than outpatient dosing. Status: Acute (3) Polypharmacy: Problem details: This will warrant ongoing supportive management efforts Status: Acute (4) Diabetes mellitus: Problem details: - A1C 7.4 on 10/22/22 - continue home medications with SSI. - 01/17 increased SSI - 01/18 glucose adequate control now. Status: Acute (5) Bipolar disorder: Problem details: Obviously this too can be driving her altered mental status state. Not able to add atypical antipsychotic until more time has evolved since her last dose of sotalol. Consider adding quetiapine as early as tomorrow starting at bedtime. Currently not on an atypical antipsychotic. Consider if needed. Currently not manic or hypomanic. Status: Acute (6) Hypertension: Problem details: - 01/17 DBP remains elevated. Added lisinopril. - 01/18 BP better control today. Monitor. Status: Acute (7) Microcytic anemia: Problem details: - chronic, likely 2/2 gastric bypass surgery - routine outpatient f/u Status: Acute (8) Hypokalemia: Problem details: Continue with potassium supplementation. Monitor magnesium. Status: Resolved (9) Difficulty swallowing: Problem details: Bedside swallow evaluation demonstrates patient quite able of swallowing liquids and food well. Does not swallow tablets or capsules well, seemingly an aversion. Status: Acute (10) Physical debility: Problem details: For appeared time patient will need help with activities of daily living, safety. Continue with inpatient physical therapy and occupational therapy support. Status: Acute Plan Await residential facility availability. Annual Greenhouse Manager continues to work toward trying to establish this. Continue with physical and occupational therapy support. Subjective Time Seen by Provider: 08:55 Date Seen: 01/18/23 Interval history: Brandee and I started to have a pleasant conversation this morning about her birthday coming up in a few days. The topic of discharge came up and she seemed unaware that we were seeking rehab at a prison for her. She said she was here in the hospital in the 1st place because the stopped giving her her pain medication for 3 days and she went through withdrawal. She was very upset that we were seeking prison placement for her and told me that she was going to go home with her daughter and live there. She refused to tell me her daughter's name. She said she had not yet talked with her daughter about this plan and did not want me doing so either. While I was talking with Brandee, her breakfast tray was delivered. She picked up some milk, which had a plastic cover over the glass, and started trying to drink it with a cover on. After being unsuccessful, she wondered out loud at how she could get the milk out, but had no idea to take off the cover. She looked at the rest of her food, which also had covers on it, and was unable to figure out how to eat it. I helped her take the covers off of her food and get it set up so she could needed to, and then she was able to drink from the milk. I have reviewed therapies notes and find that she has not demonstrated the ability to manage her self cares and mobility independently and safely yet. She continues to demonstrate need for 24 hours supervision and assistance. A setting with SNF with therapies verses other setting with 24 hour supervision in therapy available is recommended. Exam Narrative: Exam Narrative: General: No acute distress. Awake, alert, oriented to self and place. No pallor. No jaundice. Oropharynx: Clear. Mucous membranes moist. Cardiovascular: Irregularly irregular. No murmurs, gallops, or rubs. Respiratory: Clear to auscultation bilaterally. No wheezes or crackles. Abdomen: Bowel sounds present. Soft, nondistended, nontender. Extremities: No pedal edema. Const: Vital Signs, click to edit/add: Vital Signs - 24 hr 01/17/23 09:57 01/17/23 15:00 01/17/23 15:00 Temperature Pulse Rate 91 Pulse Rate [Left R adial] 91 Respiratory Rate 18 18 Blood Pressure [Le ft Arm] Blood Pressure [Ri ght Arm] Pulse Oximetry 97 Oxygen Delivery Me thod Room Air Oxygen Flow Rate 0 01/17/23 15:00 01/17/23 19:00 01/17/23 22:17 Temperature 98 F 97.5 F L 98 F Pulse Rate Pulse Rate [Left R adial] 79 68 96 Respiratory Rate 18 16 16 Blood Pressure [Le ft Arm] 132/87 125/93 H Blood Pressure [Ri ght Arm] 124/74 Pulse Oximetry 97 99 98 Oxygen Delivery Ca thod Room Air Room Air Room Air Oxygen Flow Rate 0 01/17/23 22:19 01/17/23 22:19 01/17/23 22:36 Temperature Pulse Rate Pulse Rate [Left R adial] 96 Respiratory Rate 16 16 Blood Pressure [Le ft Arm] Blood Pressure [Ri ght Arm] Pulse Oximetry 98 Oxygen Delivery Ca thod Room Air Oxygen Flow Rate 01/18/23 02:41 01/18/23 05:00 01/18/23 08:49 Temperature Pulse Rate 87 Pulse Rate [Left R adial] Respiratory Rate 16 16 Blood Pressure [Le ft Arm] Blood Pressure [Ri ght Arm] Pulse Oximetry Oxygen Delivery Me thod Oxygen Flow Rate Labs Labs: Laboratory Results - last 24 hr 01/18/23 06:36 INR 2.03 H
[2023-01-18] MEDS: HYDROmorphone 2 MG TABLET PO ×3 (12:11→20:40)
[2023-01-18] MEDS: DOCUSATE SODIUM 100 MG CAPSULE PO ×2 (12:13→17:46)
[2023-01-18] MEDS: LORazepam 0.5 MG TABLET PO (17:46)
[2023-01-18] MEDS: WARFARIN 2 MG TABLET 4 MG PO (17:46)
--- NOTE | 2023-01-18 19:23 | PC.NURSE ---
Patient pleasant and cooperative this shift. Patient does not answer questions appropriately at times and is Unable to engage in meaningful conversation. Not oriented to place or time. However easily redirectable and follows commands. Pt up for a walk in the guidry with nursing staff.
[2023-01-19] VITALS (9 sets, daily range): BP systolic 116–135; BP diastolic 84–100; PULSE 81–111; RESP 16–18; TEMP 36.5–36.7; O2SAT 95–99
[2023-01-19] MEDS: LORazepam 0.5 MG TABLET PO ×2 (00:30→09:14)
[2023-01-19] MEDS: OMEPRAZOLE 20 MG CAPSULE DR PO (06:01)
[2023-01-19 08:03] LABS: INR 2.38 (0.91-1.10); Prothrombin Time 27.2 Seconds
[2023-01-19 08:08] LABS: Chloride* 102 mmol/L (96-114); Potassium* 3.2 mmol/L (3.6-5.1); Sodium* 141 mmol/L (135-149)
[2023-01-19 08:11] LABS: Blood Urea Nitrogen* 16 mg/dL (7-30); Carbon Dioxide* 26 mmol/L (20-32); Creatinine* 0.6 mg/dL (0.5-1.5); Est. Creatinine Clearance* 46.13; Estimated Glomerular Filt Rate 101 ml/min
[2023-01-19 08:12] LABS: Calcium* 9.1 mg/dL (8.4-10.6); Glucose* 209 mg/dL (60-115)
[2023-01-19] MEDS: SERTRALINE 100 MG TABLET 200 MG PO (09:13)
[2023-01-19] MEDS: DIGOXIN 125 MCG TABLET PO (09:13)
[2023-01-19] MEDS: clonazePAM 0.5 MG TABLET 1 MG PO (09:13)
[2023-01-19] MEDS: TORSEMIDE 5 MG TABLET 25 MG PO (09:13)
[2023-01-19] MEDS: lisinopriL 10 MG TABLET PO (09:13)
[2023-01-19] MEDS: ATORVASTATIN CALCIUM 40 MG TABLET PO (09:13)
[2023-01-19] MEDS: METFORMIN 500 MG TABLET PO ×2 (09:13→20:17)
[2023-01-19] MEDS: METOPROLOL SUCCINATE (XL) 100 MG TAB PO ×2 (09:14→20:17)
[2023-01-19] MEDS: POTASSIUM BICARB 25 MEQ EFFERVESCENT TAB PO ×2 (12:09→13:55)
--- NOTE | 2023-01-19 13:30 | PC.SOCIAL ---
Discharge Planning: Met with patient in room. Brandee appeared confused when this functional tester typewriters talked about a transitional care stay for her to get stronger. Brandee stated that this functional tester typewriters has it wrong and she was not going to be picking her own words out of her own. She became a bit agitated stating that the Doctor does not know it. Brandee started eating her muffin paper wrapper and then spit it on the floor. Brandee appeared unable to comprehend or answer simple questions. This functional tester typewriters attempted to call her daughter, Autumn again, but her mailbox is now full and a message cannot be left. Awaiting possible MOCA and DEC results. Social work to follow up as needed.
[2023-01-19] MEDS: HYDROmorphone 2 MG TABLET PO ×2 (14:08→20:18)
--- NOTE | 2023-01-19 14:13 | PC.NURSE ---
Pt alert to self. Pt ambulating independently. Pt had 3 walks in hallways with staff assist.Pt had pain ranging from 0-7; see EMAR for intervention. Pt took pills in pudding. Pt pleasant and cooperative druing shift.
--- NOTE | 2023-01-19 17:28 | P.IMPN_ITS ---
Progress Note: A&P Assessment and plan (1) Altered mental status: Problem details: - differential diagnosis is broad and includes substance use, including methamphetamine, cocaine, PCP, withdrawal from opiates or benzodiazepines or methamphetamine, encephalopathy, ETOH withdrawal, intracranial process, atypical ACS, serotonin syndrome. On 01/11/2023 we learned that patient had been administering ketamine topical lotion via her rectum for some time. [place], [place], indicated that it is possible that her current condition is a reflection of her withdrawal from the ketamine she has been self administering in this fashion. - continues on floor status with one-to-one logistics assistant as needed - 01/13/2023 initiated clonazepam 1 mg p.o. b.i.d. and for now continue with p.r.n. lorazepam - 01/17/23 Improving. Pleasant. - 01/18 Mostly pleasant. Remains somewhat confused and unable to do ADLs, executive function and problem solving are significantly impaired. - 01/19 while she has been improving, it appears that she is not yet back at baseline. She is overall calm. There are no focal deficits. She had a head CT during this hospital stay which was largely unremarkable. With the amount of time that she has been here, any substances she was using would be out of her s ystem and withdrawal should be complete. She was started on clonazepam and lorazepam here. I will discontinue lorazepam and cut down clonazepam. Start Haldol as she was taking as an outpatient for agitation. If these do not help, consider repeating head CT for possible stroke. I do not think she would hold still enough for an MRI, but could consider sedating her to get 1. I am not sure if she would consent to that however. Repeat labs tomorrow. Consider tele neurology consult verses deck assessment for Psychiatry. Status: Acute (2) Atrial fibrillation with rapid ventricular response: Problem details: - Historically has had paroxysmal atrial fibrillation for number of years. Initially treated with rate control using metoprolol and anticoagulation. My understanding of her medical records is that an attempt was made at pharmacologic cardioversion utilizing amiodarone at 1 time. That was unsuccessful. She was started on sotalol. Last time she was seen by her geothermal powerplant mechanic was in March of 2021. Has not had follow-up since then. - Presented to our hospital on sotalol with AFib RVR. Rhythm has not changed entire time she has been in the hospital. I made the decision to stop the antiarhythmic and focus on rate control only utilizing metoprolol, diltiazem, and digoxin. Continues with warfarin anticoagulation with daily INRs. - Rate control variable, elevated last evening. Continue current regimen for rate control. I do not think she would tolerate coming off digoxin. Check level on Mon or . - INR is therapeutic, continue current warfarin dosing, which is slightly higher than outpatient dosing. Status: Acute (3) Polypharmacy: Problem details: This will warrant ongoing supportive management efforts Status: Acute (4) Diabetes mellitus: Problem details: - A1C 7.4 on 10/22/22 - continue home medications with SSI. - 01/17 increased SSI - 01/18 glucose adequate control now. Status: Acute (5) Bipolar disorder: Problem details: Obviously this too can be driving her altered mental status state. Not able to add atypical antipsychotic until more time has evolved since her last dose of sotalol. Consider adding quetiapine as early as tomorrow starting at bedtime. Currently not on an atypical antipsychotic. Consider if needed. Currently not manic or hypomanic. Status: Acute (6) Hypertension: Problem details: - 01/17 DBP remains elevated. Added lisinopril. - 01/18 BP better control today. Monitor. Status: Acute (7) Microcytic anemia: Problem details: - chronic, likely 2/2 gastric bypass surgery - routine outpatient f/u Status: Acute (8) Hypokalemia: Problem details: Continue with potassium supplementation. Monitor magnesium. Status: Resolved (9) Difficulty swallowing: Problem details: Bedside swallow evaluation demonstrates patient quite able of swallowing liquids and food well. Does not swallow tablets or capsules well, seemingly an aversion. Status: Acute (10) Physical debility: Problem details: For appeared time patient will need help with activities of daily living, safety. Continue with inpatient physical therapy and occupational therapy support. Status: Acute Plan Await detention facility availability. Senior Financial Analyst continues to work toward trying to establish this. Continue with physical and occupational therapy support. Subjective Time Seen by Provider: 11:00 Date Seen: 01/19/23 Interval history: Brandee's ex- was visiting when I came in. He stayed for the duration of my interview and examination of her. He also spoke with me outside the room. He talks with her about once every 2-3 weeks over the phone and says that she is not at her baseline yet. She still seems somewhat confused to him. He said he is having trouble understanding her because she jumps from topic to topic and sometimes speaks nonsense. Brandee said she was agreeable to go to rehab today because she is agrees that she could use some before going back home. Occupational therapy said that she was bumping into things with her walker today, which they had not seen her do previously. According to outpatient [facility] records, she had been using Haldol twice a day as an outpatient. Exam Narrative: Exam Narrative: General: No acute distress. Awake, alert, oriented to self and place. No pallor. No jaundice. Oropharynx: Clear. Mucous membranes moist. Extremities: No pedal edema. Neuro: No focal deficits, moves all extremities, able to ambulate with a walker to the bathroom. Const: Vital Signs, click to edit/add: Vital Signs - 24 hr 01/18/23 19:26 01/18/23 22:40 01/18/23 22:40 Temperature 98 F Pulse Rate Pulse Rate [Left R adial] 89 89 Respiratory Rate 18 18 18 Blood Pressure [Le ft Arm] 124/90 H Blood Pressure [Ri ght Arm] Pulse Oximetry 98 98 Oxygen Delivery Me thod Room Air Room Air Oxygen Flow Rate 0 0 01/18/23 22:44 01/19/23 01:17 01/19/23 05:05 Temperature Pulse Rate Pulse Rate [Left R adial] Respiratory Rate 18 16 18 Blood Pressure [Le ft Arm] Blood Pressure [Ri ght Arm] Pulse Oximetry Oxygen Delivery Me thod Oxygen Flow Rate 01/19/23 09:00 01/19/23 09:08 01/19/23 09:13 Temperature 97.7 F Pulse Rate 99 Pulse Rate [Left R adial] 99 Respiratory Rate 18 18 Blood Pressure [Le ft Arm] 135/100 H Blood Pressure [Ri ght Arm] Pulse Oximetry 99 99 Oxygen Delivery Me thod Room Air Oxygen Flow Rate 0 01/19/23 15:00 01/19/23 15:00 01/19/23 15:00 Temperature Pulse Rate Pulse Rate [Left R adial] 81 81 Respiratory Rate 18 18 18 Blood Pressure [Le ft Arm] Blood Pressure [Ri ght Arm] 135/84 Pulse Oximetry 95 95 Oxygen Delivery Me thod Room Air Room Air Oxygen Flow Rate Labs Labs: Laboratory Results - last 24 hr 01/19/23 07:38 INR 2.38 H Sodium 141 Potassium 3.2 L Chloride 102 Carbon Dioxide 26 BUN 16 Creatinine 0.6 Estimated Creat Clear 46.13 Estimated GFR 101 Glucose 209 H Calcium 9.1
[2023-01-19] MEDS: WARFARIN 2 MG TABLET 4 MG PO (18:00)
--- NOTE | 2023-01-19 18:51 | PC.NURSE ---
Nursing Care Hours: [id number] Pt this shift up independently with walker, walking halls and in room. Alert and oriented with occasional episodes of behavior or comments not appropriate for situation. Eating and drinking, voiding in toilet. Pt c/o hemorrhoids bothering her, news writer brought tucks pads but then pt refused stating I think they are taken care of. Pt picking at scabs on face, open to air. Insulin given per sliding scale. No c/o pain this shift.
[2023-01-19] MEDS: clonazePAM 0.5 MG TABLET PO (20:17)
[2023-01-19] MEDS: ACETAMINOPHEN 500 MG TABLET 1000 MG PO (20:18)
--- NOTE | 2023-01-19 22:38 | PC.NURSE ---
Pleasant and cooperative with cares. Reports low back pain, pain well managed with prn medications. Ambulates independently with walker. Denies any shortness of breath or chest pain.
[2023-01-19] MEDS: haloperidoL 1 MG TABLET 0.5 MG PO (23:47)
[2023-01-20] VITALS (8 sets, daily range): BP systolic 110–125; BP diastolic 62–102; PULSE 62–95; RESP 16–18; TEMP 35.8–36.4; O2SAT 93–99; BMI 36.7
[2023-01-20] MEDS: OMEPRAZOLE 20 MG CAPSULE DR PO (06:36)
[2023-01-20] MEDS: HYDROmorphone 2 MG TABLET PO ×4 (06:42→23:15)
--- NOTE | 2023-01-20 06:47 | PC.NURSE ---
Alert and orientated w/ bouts of confusion but pleasant and cooperative w/ cares. Pt complained of restlessness and anxiety, PRN Haldol given per pt request. Pt was able to rest after this. Complained of 7/10 back pain, PRN pain medication given. Ind w/ walker. ? ?
[2023-01-20 06:52] LABS: Hematocrit 47.1 % (33.0-51.0); Hemoglobin* 14.1 gm/dL (12.0-16.0); Mean Corpuscular Hemoglobin 25 pg (26-34); Mean Corpuscular Volume 83 fL (80-100); Red Blood Count 5.67 m/uL (4.00-5.20); White Blood Count* 7.11 K/uL (4.50-11.00)
[2023-01-20 06:53] LABS: Basophils Absolute Auto 0.05 K/uL (0.00-0.30); Basophils Percent Auto 0.7 % (0.0-3.0); Eosinophils Absolute Auto 0.26 K/uL (0.00-0.50); Eosinophils Percent Auto 3.7 % (0.0-7.0); Immature Granulocytes Abs Auto 0.03 K/uL (0.00-0.30); Immature Granulocytes Pct Auto 0.4 %; Lymphocytes Absolute Auto 1.94 K/uL (0.90-2.90); Lymphocytes Percent Auto 27.3 % (20-44); Mean Corpuscular HGB Conc 30 gm/dL (32-36); Monocytes Percent Auto 7.7 % (0.0-11.0); Neutrophils Absolute Auto 4.28 K/uL (1.7-7.0); Neutrophils Percent Auto 60.2 % (42.0-72.0); Platelet Count* 247 K/uL (140-440); RDW Coefficient of Variation % 19.3 % (11.5-15.5)
[2023-01-20 07:10] LABS: Albumin* 4.7 g/dL (3.3-5.0); Chloride* 101 mmol/L (96-114); Sodium* 142 mmol/L (135-149)
[2023-01-20 07:11] LABS: INR 2.88 (0.91-1.10); Prothrombin Time 31.5 Seconds
[2023-01-20 07:13] LABS: Alanine Aminotransferase* 111 U/L (4-35); Alkaline Phosphatase* 131 U/L (40-150); Anion Gap 12 mEq/L (7-15); Aspartate Amino Transferase* 71 U/L (12-35); Bilirubin Total* 0.5 mg/dL (0.1-1.5); Blood Urea Nitrogen* 18 mg/dL (7-30); Carbon Dioxide* 29 mmol/L (20-32); Creatinine* 0.5 mg/dL (0.5-1.5); Est. Creatinine Clearance* 46.13; Estimated Glomerular Filt Rate 106 ml/min; Total Protein* 8.1 g/dL (6.0-8.3)
[2023-01-20 07:14] LABS: Glucose* 154 mg/dL (60-115); Magnesium* 1.9 mg/dL (1.5-2.6)
[2023-01-20 07:41] LABS: Slide Review Reflex Yes
[2023-01-20 07:42] LABS: Slide Review Acceptable Review (Acceptable)
[2023-01-20 07:49] LABS: Digoxin* 0.6 ng/mL (0.8-2.0)
[2023-01-20] MEDS: SERTRALINE 100 MG TABLET 200 MG PO (08:19)
[2023-01-20] MEDS: TORSEMIDE 5 MG TABLET PO (08:19)
[2023-01-20] MEDS: DOCUSATE SODIUM 100 MG CAPSULE PO (08:20)
[2023-01-20] MEDS: lisinopriL 10 MG TABLET PO (08:20)
[2023-01-20] MEDS: METOPROLOL SUCCINATE (XL) 100 MG TAB PO ×2 (08:20→20:33)
[2023-01-20] MEDS: ATORVASTATIN CALCIUM 40 MG TABLET PO (08:20)
[2023-01-20] MEDS: DIGOXIN 125 MCG TABLET PO (08:20)
[2023-01-20] MEDS: TORSEMIDE 20 MG TABLET PO (08:20)
[2023-01-20] MEDS: METFORMIN 500 MG TABLET PO ×2 (08:21→20:33)
[2023-01-20] MEDS: clonazePAM 0.5 MG TABLET PO ×2 (08:22→21:04)
--- NOTE | 2023-01-20 09:30 | CRLHL7_ITS ---
For Patients: As a result of the Cures Act, medical imaging exams and procedure reports are released immediately into your electronic medical record. You may view this report before your referring provider. If you have questions, please contact your health care provider. Indication: Altered mental status. Technique: Multiplanar, multisequence MRI of the brain was performed without intravenous contrast. Comparison: CT head 01/08/2023. MR brain 03/01/2018. Findings: Mild thinning of the corpus callosum. The pituitary gland and clivus appear intact. Mild degenerative change visualized upper cervical spine. There is no restricted diffusion. No intracranial hemorrhage. The ventricles are proportionate to the cerebral sulci. The 4th ventricle appears midline. The basal cisterns appear patent. No abnormal extra-axial fluid collection identified. Small chronic subcortical infarct of the right precentral gyrus. Mild parenchymal volume loss. Scattered T2 FLAIR hyperintense foci within the subcortical and periventricular white matter, favored to represent chronic ischemic microvascular disease. There is no intracranial mass, abnormal mass-effect or midline shift identified. Major intracranial vascular flow voids appear grossly intact. Both globes are preserved. Impression: 1. No acute/subacute infarct. 2. 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 3. Minimal chronic ischemic microvascular disease. Dictated by Gerson Bridges MD @ 01/20/2023 12:44:43 PM (Electronically Signed)
[2023-01-20] MEDS: LORazepam 1 MG TABLET 2 MG PO (10:51)
--- NOTE | 2023-01-20 12:44 | PC.SOCIAL ---
Social work: Received communication from [facility], Carroll Ocampo, stating he has filed an appeal on patient's behalf on her contract termination from the [facility] with the Office of Administrative Hearings at [facility].
--- NOTE | 2023-01-20 12:51 | P.IMPN_ITS ---
Progress Note: A&P Assessment and plan (1) Altered mental status: Problem details: - differential diagnosis is broad and includes substance use, including methamphetamine, cocaine, PCP, withdrawal from opiates or benzodiazepines or methamphetamine, encephalopathy, ETOH withdrawal, intracranial process, atypical ACS, serotonin syndrome. On 01/11/2023 we learned that patient had been administering ketamine topical lotion via her rectum for some time. [place], [place], indicated that it is possible that her current condition is a reflection of her withdrawal from the ketamine she has been self administering in this fashion. - continues on floor status with one-to-one nursing executive as needed - 01/13/2023 initiated clonazepam 1 mg p.o. b.i.d. and for now continue with p.r.n. lorazepam - 01/17/23 Improving. Pleasant. - 01/18 Mostly pleasant. Remains somewhat confused and unable to do ADLs, executive function and problem solving are significantly impaired. - 01/19 while she has been improving, it appears that she is not yet back at baseline. She is overall calm. There are no focal deficits. She had a head CT during this hospital stay which was largely unremarkable. With the amount of time that she has been here, any substances she was using would be out of her s ystem and withdrawal should be complete. She was started on clonazepam and lorazepam here. I will discontinue lorazepam and cut down clonazepam. Start Haldol as she was taking as an outpatient for agitation. If these do not help, consider repeating head CT for possible stroke. I do not think she would hold still enough for an MRI, but could consider sedating her to get 1. I am not sure if she would consent to that however. 01/20 - it appears cutting back on ativan and clonazepam and adding haldol as made a significant improvement. she is calm, more clear, more steady on her feet. MR as above. will do tele-stroke visit 01/21 Status: Acute (2) CVA (cerebral vascular accident): Problem details: chronic subcortical infarct the right precentral gyrus - not seen on CT at admission. will do a tele-stroke consult with [facility] Status: Acute (3) Atrial fibrillation with rapid ventricular response: Problem details: - Historically has had paroxysmal atrial fibrillation for number of years. Initially treated with rate control using metoprolol and anticoagulation. My understanding of her medical records is that an attempt was made at pharmacologic cardioversion utilizing amiodarone at 1 time. That was unsuccessful. She was started on sotalol. Last time she was seen by her senior oracle database developer was in March of 2021. Has not had follow-up since then. - Presented to our hospital on sotalol with AFib RVR. Rhythm has not changed entire time she has been in the hospital. I made the decision to stop the antiarhythmic and focus on rate control only utilizing metoprolol, diltiazem, and digoxin. Continues with warfarin anticoagulation with daily INRs. - Rate control variable, elevated last evening. Continue current regimen for rate control. I do not think she would tolerate coming off digoxin. Check level on Mon or . - INR is therapeutic, continue current warfarin dosing, which is slightly higher than outpatient dosing. Status: Acute (4) Polypharmacy: Problem details: This will warrant ongoing supportive management efforts Status: Acute (5) Diabetes mellitus: Problem details: - A1C 7.4 on 10/22/22 - continue home medications with SSI. - 01/17 increased SSI - 01/18 glucose adequate control now. Status: Acute (6) Bipolar disorder: Problem details: Obviously, this too can be driving her altered mental status state. we held antipsychotic secondary to her sotalol dose; now sotalol is off and rate control is achieved. restart Haldol cautious use of benzos; the reduction has helped her sensorium. Status: Acute (7) Hypertension: Problem details: - 01/17 DBP remains elevated. Added lisinopril. - 01/18 BP better control today. Monitor. Status: Acute (8) Microcytic anemia: Problem details: - chronic, likely 2/2 gastric bypass surgery - routine outpatient f/u Status: Acute (9) Hypokalemia: Problem details: Continue with potassium supplementation. Monitor magnesium. Status: Resolved (10) Difficulty swallowing: Problem details: Bedside swallow evaluation demonstrates patient quite able of swallowing liquids and food well. Does not swallow tablets or capsules well, seemingly an aversion. Status: Acute (11) Physical debility: Problem details: For appeared time patient will need help with activities of daily living, safety. Continue with inpatient physical therapy and occupational therapy support. Status: Acute Subjective Date Seen: 01/20/23 Interval history: Daily Progress Note - Hospital Medicine Day #: 13 (admitted on 01/08) CC: AMS, OD, AFIB RVR OVERNIGHT UPDATES FROM STAFF & MED, LAB, IMAGING UPDATES Dr. Guajardo held the ativan and decreased klonopin - this may have helped clear her sensorium. She did only get a 10 on her MOCA this morning BUT at least she is cooperating and making more sense. I observe her get up from bed, walk with a subtle wide based gait to her walker and go in the bathroom. Afebrile Blood pressure 116/90. Pulse 60s to 70s. AFib but now rate controlled. Respiratory rate nonlabored at 16. Pulse ox is 97-99% on room air. Weight is 91.3 kilos CBC updated today reveals a normal white blood cell count. A normal hemoglobin. And normal platelets. Her INR this morning is 2.88 BMP is completely normal. Blood sugar 154. LFTs have been up and down. Currently AST is 71. High in this hospitalization is 121. ALT is the highest it has been at this hospitalization 111. Alk-phos and total bilirubin are normal. Brain MRI Impression: 1. No acute/subacute infarct. 2. 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 3. Minimal chronic ischemic microvascular disease. DAY OF ADMISSION NOTE: Brandee Brown is a 62 year old female who presented to the ED this morning by ambulance for AMS. Patient unable to provide me any history; I did discuss the case with interim director at [facility], where patient lives. On 01/05, patient was found by staff to be more confused and was slurring her words. They were worried that she may have been using alcohol, and called PCP (Dr. Smith) with these concerns. Dr. Smith subsequently stopped her hydromorphone, lorazepam, and Adderall: - last dose of Hydromorphone 01/06 in the morning, was taking 4-6 mg per day - last prn Alprazolam dose 01/04 in the afternoon, was taking 0.5mg once/day for anxiety - last Adderall dose 01/06 in the morning, was taking 20mg daily She continued to have access to Tylenol, Meloxicam, Sertraline, and prn Lidocaine patches for pain. Medications are all administered by [facility] staff. There was some frustration from patient and family regarding the discontinuation of medications, but no known withdrawal symptoms. This morning, family could not get hold of patient and they asked staff at [facility] to let them in her room. She was then found on her bed with drug paraphernalia surrounding her, nonresponsive. EMS transported her to ED. ER Course and Findings: - AFib with RVR on EKG, rate in the 120s - given IV diltiazem 10 mg with improvement - therapeutic INR at 2.9 (on Coumadin for AFib) - hemoglobin 10.1, close to baseline - no acute infectious process on UA, UDS + TCAs, amphetamines, Marijuana Objective: slight slur to her words; gets off topic at times but is generally cooperative and making sense. Vitals: see above Lungs: Clear. Cardiac: S1S2. legs: 1+ edema Disposition/Potential discharge - likely will need SNF - CVA rehab; chronic polysubstance rehab Today I spent 50minutes seeing the patient, reviewing Expanse and EPIC notes/diagnostics, discussing the care plan with our care time that includes social work, PT/OT, pharmacy, RT, longterm and documenting my impressions and plan in the medical record. Exam Const: Vital Signs, click to edit/add: Vital Signs - 24 hr 01/19/23 15:00 01/19/23 15:00 01/19/23 15:00 Temperature Pulse Rate Pulse Rate [Left R adial] 81 81 Pulse Rate [Pulse Oximeter] Respiratory Rate 18 18 18 Blood Pressure [Le ft Arm] Blood Pressure [Ri ght Arm] 135/84 Pulse Oximetry 95 95 Oxygen Delivery Me thod Room Air Room Air 01/19/23 23:10 01/19/23 23:11 01/19/23 23:30 Temperature 98.1 F Pulse Rate Pulse Rate [Left R adial] Pulse Rate [Pulse Oximeter] 111 H Respiratory Rate 18 18 Blood Pressure [Le ft Arm] 116/89 Blood Pressure [Ri ght Arm] Pulse Oximetry 95 95 Oxygen Delivery Me thod Room Air Room Air 01/20/23 06:00 01/20/23 07:28 01/20/23 07:30 Temperature 97.5 F L Pulse Rate Pulse Rate [Left R adial] Pulse Rate [Pulse Oximeter] 70 Respiratory Rate 18 16 Blood Pressure [Le ft Arm] 120/69 Blood Pressure [Ri ght Arm] Pulse Oximetry 97 97 Oxygen Delivery Me thod Room Air Room Air 01/20/23 08:20 01/20/23 11:01 Temperature 96.5 F L Pulse Rate 71 Pulse Rate [Left R adial] Pulse Rate [Pulse Oximeter] 62 Respiratory Rate 16 Blood Pressure [Le ft Arm] Blood Pressure [Ri ght Arm] 116/90 H Pulse Oximetry 99 Oxygen Delivery Me thod Room Air Labs Labs: Laboratory Results - last 24 hr 01/20/23 06:39 WBC 7.11 RBC 5.67 H Hgb 14.1 Hct 47.1 MCV 83 MCH 25 L MCHC 30 L RDW Coeff of Fito 19.3 H Plt Count 247 Neut % (Auto) 60.2 Lymph % (Auto) 27.3 Jefferson % (Auto) 7.7 Eos % (Auto) 3.7 Baso % (Auto) 0.7 Neut # (Auto) 4.28 Lymph # (Auto) 1.94 Jefferson # (Auto) 0.50 Eos # (Auto) 0.26 Baso # (Auto) 0.05 Abs Immat Gran (auto) 0.03 Imm/Tot Granulo (auto) 0.4 Diff Slide Review Acceptable Review INR 2.88 H Sodium 142 Potassium 4.0 Chloride 101 Carbon Dioxide 29 Anion Gap 12 BUN 18 Creatinine 0.5 Estimated Creat Clear 46.13 Estimated GFR 106 Glucose 154 H Magnesium 1.9 Total Bilirubin 0.5 AST 71 H ALT 111 H Alkaline Phosphatase 131 Total Protein 8.1 Albumin 4.7 Digoxin 0.6 L
--- NOTE | 2023-01-20 14:39 | PC.NURSE ---
End of shift note: Patient has been independent in room. Participated with OT today to perform a MOCA assessment. Showered and linen changed. MRI completed of head. No PIV. Tolerating a diabetic diet. Blood sugars monitored and insulin given. Disposition still pending. Has been pleasant and cooperative this shift. No family visited. Has complained of feeling bloated. Has not had a BM since 01/17. Gave PRN colace. Lung sounds clear, bowel sounds active, passing flatus. Alert and oriented X3, but does ask repetitive questions.
[2023-01-20] MEDS: WARFARIN 2 MG TABLET 4 MG PO (17:29)
[2023-01-20] MEDS: haloperidoL 1 MG TABLET 0.5 MG PO (23:15)
[2023-01-21] MEDS: HYDROmorphone 2 MG TABLET PO ×4 (03:30→21:17)
--- NOTE | 2023-01-21 05:55 | PC.NURSE ---
Patient alert, oriented to self and birthdate only. Reporting pain to bilateral lower extremities throughout the shift, she reports that she has restless leg syndrome, patient received PRN dilaudid with moderate relief of symptoms. Requesting medication for anxiety at bedtime, haldol administered with effective results. Ambulates independently with standard walker.
[2023-01-21] MEDS: OMEPRAZOLE 20 MG CAPSULE DR PO (06:06)
[2023-01-21 07:00] VITALS: BP 109/94; PULSE 68; PULSE 99; RESP 16; TEMP 36.4; O2SAT 97
--- NOTE | 2023-01-21 08:53 | PC.NURSE ---
Called [facility] Patient access center to get clarification on when the neuro consult will take place. Per Autumn, the only way to communicate with the physician on-call (Dr. Beltran) is to repage with a change in condition. [facility]iscose Department Worker reiterated that we attempted to place consult yesterday for today as patient received Ativan prior to MRI and we wanted this clear before consult took place. Autumn continued to recommend that we repage for a change in condition. This was done and Dr. Beltran called back right away and stated he would log into our system and then call us back to speak to MD and then see patient. This was communicated to Dr. Jayjay MD.
[2023-01-21 09:10] VITALS: PULSE 68
[2023-01-21] MEDS: lisinopriL 10 MG TABLET PO (09:10)
[2023-01-21] MEDS: METOPROLOL SUCCINATE (XL) 100 MG TAB PO ×2 (09:10→21:08)
[2023-01-21] MEDS: DIGOXIN 125 MCG TABLET PO (09:10)
[2023-01-21] MEDS: METFORMIN 500 MG TABLET PO ×2 (09:10→21:09)
[2023-01-21] MEDS: TORSEMIDE 5 MG TABLET PO (09:10)
[2023-01-21] MEDS: TORSEMIDE 20 MG TABLET PO (09:10)
[2023-01-21] MEDS: clonazePAM 0.5 MG TABLET PO ×2 (09:10→21:09)
[2023-01-21] MEDS: SERTRALINE 100 MG TABLET 200 MG PO (09:10)
[2023-01-21] MEDS: ATORVASTATIN CALCIUM 40 MG TABLET PO (09:10)
[2023-01-21] MEDS: SODIUM CHLORIDE 0.9 % (FLUSH) 10 ML SYRINGE 5 ML IVF (09:12)
[2023-01-21] MEDS: DOCUSATE SODIUM 100 MG CAPSULE PO ×2 (11:11→21:09)
[2023-01-21 12:37] LABS: Appearance Urine Clear (Clear); Bilirubin Urine Negative (Negative); Blood Urine Negative (Negative); Color Urine Yellow (Yellow); Glucose Urine Negative (Negative); Ketones Urine Negative (Negative); Leukocyte Esterase Urine Negative (Negative); Nitrite Urine Negative (Negative); Protein Urine Negative (Negative); Urobilinogen Urine 0.2 (0.2-1.0)
[2023-01-21 12:53] LABS: Calcium Oxalate Crystals Urine Few; Hyaline Casts Urine Few (None-Few); Mucus Urine Few; RBC Urine 0-2 (0-2); Squamous Epithelial Cell Urine Few (None-Few); WBC Urine 0-2 (0-5)
--- NOTE | 2023-01-21 13:43 | P.IMPN_ITS ---
Progress Note: A&P Assessment and plan (1) Altered mental status: Problem details: - At admission: differential diagnosis is broad and includes substance use, including methamphetamine, withdrawal from opiates or benzodiazepines or methamphetamine, encephalopathy, ETOH withdrawal, intracranial process, atypical ACS, serotonin syndrome. On 01/11/2023 we learned that patient had been administering ketamine topical lotion via her rectum for some time. [place], [place], indicated that it is possible that her current condition is a reflection of her withdrawal from the ketamine she has been self administering in this fashion. - continues on floor status with one-to-one hospital administrative assistant as needed - 01/13/2023 initiated clonazepam 1 mg p.o. b.i.d. and for now continue with p.r.n. lorazepam - 01/17/23 Improving. Pleasant. - 01/18 Mostly pleasant. Remains somewhat confused and unable to do ADLs, executive function and problem solving are significantly impaired. - 01/19 while she has been improving, it appears that she is not yet back at baseline. She is overall calm. There are no focal deficits. She had a head CT during this hospital stay which was largely unremarkable. With the amount of time that she has been here, any substances she was using would be out of her system and withdrawal should be complete. She was started on clonazepam and lorazepam here. I will discontinue lorazepam and cut down clonazepam. Start Haldol as she was taking as an outpatient for agitation. If these do not help, consider repeating head CT for possible stroke. I do not think she would hold still enough for an MRI, but could consider sedating her to get 1. I am not sure if she would consent to that however. 01/20 - it appears cutting back on ativan and clonazepam and adding haldol as made a significant improvement. she is calm, more clear, more steady on her feet. MR as above. will do tele-stroke visit 01/21 01/21 - CVA is a not an active contributor to her current clinical presentation/situation. Dementia with new less functional baseline considered the diagnosis and this dementia likely multifactorial related to history of alcohol and drug use, long standing HTN and resultant stroke, and acute episode on or about 01/08 with additional encephalopathy. Status: Acute (2) CVA (cerebral vascular accident): Problem details: chronic subcortical infarct the right precentral gyrus - not seen on CT at admission. [facility]: ASSESSMENT: # acute obtundation from drug abuse, improved. Now with cognitive impairment (MoCA 10/30), likely dementia. # small, chronic R precentral gyral infarct in the setting of afib. Likely incidental finding, not related to her obtundation, with negligible contribution to her dementia. Status: Acute (3) Atrial fibrillation with rapid ventricular response: Problem details: - Historically has had paroxysmal atrial fibrillation for number of years. Initially treated with rate control using metoprolol and anticoagulation. My understanding of her medical records is that an attempt was made at pharmacologic cardioversion utilizing amiodarone at 1 time. That was unsuccessful. She was started on sotalol. Last time she was seen by her special police was in March of 2021. Has not had follow-up since then. - Presented to our hospital on sotalol with AFib RVR. Rhythm has not changed entire time she has been in the hospital. I made the decision to stop the antiarhythmic and focus on rate control only utilizing metoprolol, diltiazem, and digoxin. Continues with warfarin anticoagulation with daily INRs. - Rate control variable, elevated last evening. Continue current regimen for rate control. I do not think she would tolerate coming off digoxin. Check level on Mon or . - INR is therapeutic, continue current warfarin dosing, which is slightly higher than outpatient dosing. Status: Acute (4) Polypharmacy: Problem details: This will warrant ongoing supportive management efforts Status: Acute (5) Diabetes mellitus: Problem details: - A1C 7.4 on 10/22/22 - continue home medications with SSI. - 01/17 increased SSI - 01/18 glucose adequate control now. Status: Acute (6) Bipolar disorder: Problem details: Obviously, this too can be driving her altered mental status state. we held antipsychotic secondary to her sotalol dose; now sotalol is off and rate control is achieved. restart Haldol cautious use of benzos; the reduction has helped her sensorium. Status: Acute (7) Hypertension: Problem details: - 01/17 DBP remains elevated. Added lisinopril. - 01/18 BP better control today. Monitor. Status: Acute (8) Microcytic anemia: Problem details: - chronic, likely 2/2 gastric bypass surgery - routine outpatient f/u Status: Acute (9) Hypokalemia: Problem details: Continue with potassium supplementation. Monitor magnesium. Status: Resolved (10) Difficulty swallowing: Problem details: Bedside swallow evaluation demonstrates patient quite able of swallowing liquids and food well. Does not swallow tablets or capsules well, seemingly an aversion. Status: Acute (11) Physical debility: Problem details: For appeared time patient will need help with activities of daily living, safety. Continue with inpatient physical therapy and occupational therapy support. Status: Acute Subjective Date Seen: 01/21/23 Interval history: Daily Progress Note - Hospital Medicine Day #: 14 (admitted on 01/08) CC: AMS, OD, AFIB RVR OVERNIGHT UPDATES FROM STAFF & MED, LAB, IMAGING UPDATES Stable night. Pt still demonstrates poor inhibition and executive decision making. She had her shirt off and wandered out of the room. She asks for pyschotropic meds but is easily redirectable. She is sleeping better. Much less agitation/anxiety. pleasant with conversation; loses train of thought and is confused to setting at times. Earlier this week, Dr. Guajardo held the ativan and decreased klonopin - this may have helped clear her sensorium. She did only get a 10 on her MOCA on 01/20/23 BUT at least she is cooperating and making more sense. I observe her get up from bed, walk with a subtle wide based gait to her walker and go in the bathroom. Bedside tele-Neuro done this am. No focal deficits on exam. pt cooperative with neuro exam and asked some insightful questions but at other times seemed confused and wouldn't answer questions or telling stories about radioactive substance for Lupus that was in the drawer. Not clear what she was trying to describe. Afebrile Blood pressure 116/90. Pulse 60s to 70s. AFib but now rate controlled. Respiratory rate nonlabored at 16. Pulse ox is 97-99% on room air. Weight is 91.3 kilos No new labs today. Brain MRI Impression: 1. No acute/subacute infarct. 2. 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 3. Minimal chronic ischemic microvascular disease. DAY OF ADMISSION NOTE: Brandee Brown is a 62 year old female who presented to the ED this morning by ambulance for AMS. Patient unable to provide me any history; I did discuss the case with interim director at [facility], where patient lives. On 01/05, patient was found by staff to be more confused and was slurring her words. They were worried that she may have been using alcohol, and called PCP (Dr. Smith) with these concerns. Dr. Smith subsequently stopped her hydromorphone, lorazepam, and Adderall: - last dose of Hydromorphone 01/06 in the morning, was taking 4-6 mg per day - last prn Alprazolam dose 01/04 in the afternoon, was taking 0.5mg once/day for anxiety - last Adderall dose 01/06 in the morning, was taking 20mg daily She continued to have access to Tylenol, Meloxicam, Sertraline, and prn Lidocaine patches for pain. Medications are all administered by [facility] staff. There was some frustration from patient and family regarding the discontinuation of medications, but no known withdrawal symptoms. This morning, family could not get hold of patient and they asked staff at [facility] to let them in her room. She was then found on her bed with drug paraphernalia surrounding her, nonresponsive. EMS transported her to ED. ER Course and Findings: - AFib with RVR on EKG, rate in the 120s - given IV diltiazem 10 mg with improvement - therapeutic INR at 2.9 (on Coumadin for AFib) - hemoglobin 10.1, close to baseline - no acute infectious process on UA, UDS + TCAs, amphetamines, Marijuana Objective: slight slur to her words; gets off topic at times but is generally cooperative and making sense. Vitals: see above Lungs: Clear. Cardiac: S1S2. legs: 1+ edema Disposition/Potential discharge - likely will need 24/7 memory care. Today I spent 50minutes seeing the patient, reviewing Expanse and EPIC notes/diagnostics, discussing the care plan with our care time that includes s ocial work, PT/OT, pharmacy, RT, half-way and documenting my impressions and plan in the medical record. Prolonged Physician Services [id number] ([facility]) in conjunction with: [id number] (subsequent visit; 50 mins + 15 mins extra = 65) I spent additional time 15 mins prior to my visit with Dr. Elena from [place] [facility] (by phone) discussing her history, my acute neuro concerns, MRI findings. I spent additional 15 mins after my visit with the daughter (Autumn, by phone) going over my recommendations and prognosis. I recommended we seek memory care and she should seek legal guardianship. Exam Const: Vital Signs, click to edit/add: Vital Signs - 24 hr 01/20/23 15:00 01/20/23 15:00 01/20/23 15:00 Temperature 97.6 F Pulse Rate Pulse Rate [Left R adial] 95 Pulse Rate [Pulse Oximeter] 95 Respiratory Rate 16 16 16 Blood Pressure [Le ft Arm] Blood Pressure [Ri ght Arm] 110/62 Pulse Oximetry 99 99 Oxygen Delivery Me thod Room Air Room Air Oxygen Flow Rate 0 0 01/20/23 23:00 01/20/23 23:00 01/20/23 23:30 Temperature Pulse Rate Pulse Rate [Left R adial] Pulse Rate [Pulse Oximeter] 68 Respiratory Rate 18 18 16 Blood Pressure [Le ft Arm] 125/102 H Blood Pressure [Ri ght Arm] Pulse Oximetry 93 93 Oxygen Delivery Me thod Room Air Room Air Oxygen Flow Rate 01/21/23 07:00 01/21/23 07:00 01/21/23 07:00 Temperature 97.6 F Pulse Rate Pulse Rate [Left R adial] Pulse Rate [Pulse Oximeter] 99 68 Respiratory Rate 16 16 16 Blood Pressure [Le ft Arm] 109/94 H Blood Pressure [Ri ght Arm] Pulse Oximetry 97 97 Oxygen Delivery Me thod Room Air Room Air Oxygen Flow Rate 01/21/23 09:10 Temperature Pulse Rate 68 Pulse Rate [Left R adial] Pulse Rate [Pulse Oximeter] Respiratory Rate Blood Pressure [Le ft Arm] Blood Pressure [Ri ght Arm] Pulse Oximetry Oxygen Delivery Me thod Oxygen Flow Rate Labs Labs: Laboratory Results - last 24 hr 01/21/23 12:06 Urine Color Yellow Urine Appearance Clear Urine pH 7.0 Ur Specific Bally 1.020 Urine Protein Negative Urine Glucose (UA) Negative Urine Ketones Negative Urine Blood Negative Urine Nitrite Negative Urine Bilirubin Negative Urine Urobilinogen 0.2 Ur Leukocyte Esterase Negative Urine RBC 0-2 Urine WBC 0-2 Ur Squamous Epith Cells Few Calcium Oxalate Crystal Few A Urine Bacteria None Hyaline Casts Few Urine Mucus Few A
--- NOTE | 2023-01-21 14:47 | PC.NURSE ---
End of Shift: Pt pleasant and cooperative throughout shift. Tolerating regular diet well. Intermittent confusion, pt easily redirected. Pt expressed concerns on future living situation stating they want to put me in memory care and I don't belong there. Pt c/o pain at bottom and difficulty producing BM. PRN colace administered. Redness on bottom noted. UA ordered and sent to lab, cream ordered by MD. Pain reported at 8/10, PO dilauded administered. Pain improved.
[2023-01-21 15:00] VITALS: BP 106/71; PULSE 90; RESP 18; TEMP 36.6; O2SAT 98
[2023-01-21] MEDS: ACETAMINOPHEN 500 MG TABLET 1000 MG PO (15:06)
--- NOTE | 2023-01-21 17:03 | PC.SOCIAL ---
Discharge planning: Called [facility] Yaritza ÁLVAREZ ([phone]) and left message requsting call back about whether the memory care unit at the facility could accept pt at discharge. Awaiting call back from [facility]. Called [facility] on [facility] and spoke with Zoraida kirk. Faxed information and awaiting call back with a decision on admit to [facility] unit. beet worker to follow up as needed.
[2023-01-21] MEDS: WARFARIN 2 MG TABLET 4 MG PO (17:34)
[2023-01-21] MEDS: CLOTRIMAZOLE 1 % CREAM 1 APPLIC TOPICAL ×2 (17:35→21:09)
--- NOTE | 2023-01-21 21:52 | PC.NURSE ---
End of Shift: Patient pleasant and cooperative. Afebrile. C/o pain in bottom 7/10, PRN Dilaudid x1 and cream applied. Tolerating regular diet with no nausea. Up independently in room and walking in hallway.
[2023-01-22] VITALS (8 sets, daily range): BP systolic 99–124; BP diastolic 67–105; PULSE 63–97; RESP 16–20; TEMP 36.2–36.7; O2SAT 96–100
[2023-01-22] MEDS: HYDROmorphone 2 MG TABLET PO ×4 (00:54→14:07)
--- NOTE | 2023-01-22 05:55 | PC.NURSE ---
END OF SHIFT NOTE: PT PLEASANT AND COOPERATIVE. PT DENIES CP, SOB, N/V. AMBULATES WITHIN ROOM AND HALLS INDEPENDENTLY WITH 4WW. VSS ON RA; AFEBRILE. PT REPORTS LOWER BACK PAIN 8/10 WITH RELIEF FROM REPOSITIONING AND PRN DILAUDID. CALL LIGHT WITHIN PT?S REACH.
[2023-01-22] MEDS: OMEPRAZOLE 20 MG CAPSULE DR PO (06:50)
[2023-01-22 07:00] LABS: INR 3.84 (0.91-1.10); Prothrombin Time 39.5 Seconds
[2023-01-22] MEDS: clonazePAM 0.5 MG TABLET PO ×2 (08:19→20:16)
[2023-01-22] MEDS: SENNOSIDES 1 TAB TABLET 2 TAB PO ×2 (08:20→20:15)
[2023-01-22] MEDS: METFORMIN 500 MG TABLET PO ×2 (08:21→20:16)
[2023-01-22] MEDS: DOCUSATE SODIUM 100 MG CAPSULE PO (08:21)
[2023-01-22] MEDS: CLOTRIMAZOLE 1 % CREAM 1 APPLIC TOPICAL ×3 (09:02→20:18)
[2023-01-22] MEDS: ALBUTEROL INHALER 2 PUFF IH (09:02)
[2023-01-22] MEDS: METOPROLOL SUCCINATE (XL) 100 MG TAB PO ×2 (09:03→20:16)
[2023-01-22] MEDS: DIGOXIN 125 MCG TABLET PO (09:03)
[2023-01-22] MEDS: TORSEMIDE 5 MG TABLET PO (09:03)
[2023-01-22] MEDS: lisinopriL 10 MG TABLET PO (09:03)
[2023-01-22] MEDS: TORSEMIDE 20 MG TABLET PO (09:04)
[2023-01-22] MEDS: SERTRALINE 100 MG TABLET 200 MG PO ×2 (09:04)
[2023-01-22] MEDS: ATORVASTATIN CALCIUM 40 MG TABLET PO (09:04)
--- NOTE | 2023-01-22 11:33 | PC.SOCIAL ---
Discharge planning: During previous conversations, dtr has requested pt return to [facility] or be placed in a facility in [facility] or [place]. 1. Called [facility] and spoke with PREETI Vigil, who states they are unable to accept pt back to her previous apartment or to memory care due to her needs and history of substance use and mental health needs. 2. Called [facility] and who stated they do not have a secure unit, so would not be able to meet pt's needs. Called [email or web address] and left message requesting call back. Information was faxed last week and multiple messages have been left requesting a call with decision on admit. 3. [facility] has already refused pt due to substance use history. 4. Called [facility]'s secure memory care unit, [facility], who state they are unable to accept pt. Called [facility] and left message requsting call back to discuss other areas and facilitiies for placement. [facility] PREETI provided a [facility] Payroll And Benefits Manager's contact information, Nellie Martínez [phone]. kitchen and counter worker to follow up as needed.
[2023-01-22] MEDS: CALCIUM CARBONATE 500 MG CHEW PO (14:07)
[2023-01-22] MEDS: ACETAMINOPHEN 500 MG TABLET 1000 MG PO (14:07)
--- NOTE | 2023-01-22 14:50 | PC.NURSE ---
Pt cooperative with nsg cares. Needs frequent redirection, rambling, repetitive speech, see Emar for multiple prn and scheduled meds provided on day shift. Pt frequently develops a new symptom or complaint when nurse is in the room. She also comes out to tell the same symptom to the trimming assembler at the desk. Pt awaiting evaluation by hospitalist. TITI in room and hallway. report will be provided to oncoming shift RN.
--- NOTE | 2023-01-22 15:34 | P.IMPN_ITS ---
Progress Note: A&P Assessment and plan (1) Altered mental status: Problem details: - At admission: differential diagnosis is broad and includes substance use, including methamphetamine, withdrawal from opiates or benzodiazepines or methamphetamine, encephalopathy, ETOH withdrawal, intracranial process, atypical ACS, serotonin syndrome. On 01/11/2023 we learned that patient had been administering ketamine topical lotion via her rectum for some time. [place], [place], indicated that it is possible that her current condition is a reflection of her withdrawal from the ketamine she has been self administering in this fashion. - continues on floor status with one-to-one associate of science in nursing as needed - 01/13/2023 initiated clonazepam 1 mg p.o. b.i.d. and for now continue with p.r.n. lorazepam - 01/17/23 Improving. Pleasant. - 01/18 Mostly pleasant. Remains somewhat confused and unable to do ADLs, executive function and problem solving are significantly impaired. - 01/19 while she has been improving, it appears that she is not yet back at baseline. She is overall calm. There are no focal deficits. She had a head CT during this hospital stay which was largely unremarkable. With the amount of time that she has been here, any substances she was using would be out of her system and withdrawal should be complete. She was started on clonazepam and lorazepam here. I will discontinue lorazepam and cut down clonazepam. Start Haldol as she was taking as an outpatient for agitation. If these do not help, consider repeating head CT for possible stroke. I do not think she would hold still enough for an MRI, but could consider sedating her to get 1. I am not sure if she would consent to that however. 01/20 - it appears cutting back on ativan and clonazepam and adding haldol prn as made a significant improvement. she is calm, more clear, more steady on her feet. MR as above. will do tele-stroke visit 01/21 01/21 - CVA is a not an active contributor to her current clinical presentation/situation. Dementia with new less functional baseline considered the diagnosis and this dementia likely multifactorial related to history of alcohol and drug use, long standing HTN and resultant stroke, and acute episode on or about 01/08 with additional encephalopathy. 01/22 - Patient is likely at baseline for her. No aggressive behaviors. I still feel she needs 24/7 care. Status: Acute (2) CVA (cerebral vascular accident): Problem details: chronic subcortical infarct the right precentral gyrus - not seen on CT at admission. [facility]: ASSESSMENT: # acute obtundation from drug abuse, improved. Now with cognitive impairment (MoCA 10/30), likely dementia. # small, chronic R precentral gyral infarct in the setting of afib. Likely incidental finding, not related to her obtundation, with negligible contribution to her dementia. Status: Acute (3) Atrial fibrillation with rapid ventricular response: Problem details: - Historically has had paroxysmal atrial fibrillation for number of years. Initially treated with rate control using metoprolol and anticoagulation. My understanding of her medical records is that an attempt was made at pharmacologic cardioversion utilizing amiodarone at 1 time. That was unsuccessful. She was started on sotalol. Last time she was seen by her supervisor fertilizer was in March of 2021. Has not had follow-up since then. - Presented to our hospital on sotalol with AFib RVR. Rhythm has not changed entire time she has been in the hospital. I made the decision to stop the antiarhythmic and focus on rate control only utilizing metoprolol, diltiazem, and digoxin. Continues with warfarin anticoagulation with daily INRs. - Rate control variable, elevated last evening. Continue current regimen for rate control. I do not think she would tolerate coming off digoxin. Check level on Mon or . - INR is therapeutic, continue current warfarin dosing, which is slightly higher than outpatient dosing. Status: Acute (4) Polypharmacy: Problem details: This will warrant ongoing supportive management efforts Status: Acute (5) Diabetes mellitus: Problem details: - A1C 7.4 on 10/22/22 - continue home medications with SSI. - 01/17 increased SSI - 01/18 glucose adequate control now. Status: Acute (6) Bipolar disorder: Problem details: Obviously, this too can be driving her altered mental status state. we held antipsychotic secondary to her sotalol dose; now sotalol is off and rate control is achieved. restart Haldol cautious use of benzos; the reduction has helped her sensorium. Status: Acute (7) Hypertension: Problem details: - 01/17 DBP remains elevated. Added lisinopril. - 01/18 BP better control today. Monitor. Status: Acute (8) Microcytic anemia: Problem details: - chronic, likely 2/2 gastric bypass surgery - routine outpatient f/u Status: Acute (9) Hypokalemia: Problem details: Continue with potassium supplementation. Monitor magnesium. Status: Resolved (10) Difficulty swallowing: Problem details: Bedside swallow evaluation demonstrates patient quite able of swallowing liquids and food well. Does not swallow tablets or capsules well, seemingly an aversion. Status: Acute (11) Physical debility: Problem details: For appeared time patient will need help with activities of daily living, safety. Continue with inpatient physical therapy and occupational therapy support. Status: Acute (12) Urinary tract infection: Problem details: Proteus. Given her list of allergies, Cipro 250 p.o. b.i.d. for 6 doses. apply antifungal and barrier cream to her buttocks/gluteal fold. Status: Acute Subjective Date Seen: 01/22/23 Interval history: Daily Progress Note - [facility] Medicine #: [id number] (admitted on 01/08) CC: AMS, OD, AFIB RVR OVERNIGHT UPDATES FROM STAFF & MED, LAB, IMAGING UPDATES Stable night. Pt still demonstrates poor inhibition and executive decision making. She applied hemhorroid cream to her feet and vaseline/barrier oint to her face. She changed her clothes three times today. Brain MRI Impression: 1. No acute/subacute infarct. 2. 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 3. Minimal chronic ischemic microvascular disease. DAY OF ADMISSION NOTE: Brandee Brown is a 62 year old female who presented to the ED this morning by ambulance for AMS. Patient unable to provide me any history; I did discuss the case with interim director at [facility], where patient lives. On 01/05, patient was found by staff to be more confused and was slurring her words. They were worried that she may have been using alcohol, and called PCP (Dr. Smith) with these concerns. Dr. Smith subsequently stopped her hydromorphone, lorazepam, and Adderall: - last dose of Hydromorphone 01/06 in the morning, was taking 4-6 mg per day - last prn Alprazolam dose 01/04 in the afternoon, was taking 0.5mg once/day for anxiety - last Adderall dose 01/06 in the morning, was taking 20mg daily She continued to have access to Tylenol, Meloxicam, Sertraline, and prn Lidocaine patches for pain. Medications are all administered by [facility] staff. There was some frustration from patient and family regarding the discontinuation of medications, but no known withdrawal symptoms. This morning, family could not get hold of patient and they asked staff at [facility] to let them in her room. She was then found on her bed with drug paraphernalia surrounding her, nonresponsive. EMS transported her to ED. ER Course and Findings: - AFib with RVR on EKG, rate in the 120s - given IV diltiazem 10 mg with improvement - therapeutic INR at 2.9 (on Coumadin for AFib) - hemoglobin 10.1, close to baseline - no acute infectious process on UA, UDS + TCAs, amphetamines, Marijuana Objective: slight slur to her words; gets off topic at times but is generally cooperative and making sense. Vitals: see above Lungs: Clear. Cardiac: S1S2. legs: 1+ edema Disposition/Potential discharge - likely will need / memory care. Today I spent 50minutes seeing the patient, reviewing Expanse and EPIC notes/diagnostics, discussing the care plan with our care time that includes social work, PT/OT, pharmacy, RT, long term and documenting my impressions and plan in the medical record. Exam Const: Vital Signs, click to edit/add: Vital Signs - 24 hr 01/22/23 00:52 01/22/23 00:52 01/22/23 00:52 Temperature 97.9 F Pulse Rate Pulse Rate [Left R adial] Pulse Rate [Pulse Oximeter] 82 82 Respiratory Rate 16 16 16 Blood Pressure [Le ft Arm] Blood Pressure [Ri ght Arm] 123/105 H Pulse Oximetry 97 97 Oxygen Delivery Me thod Room Air Room Air Oxygen Flow Rate 0 0 01/22/23 00:52 01/22/23 05:35 01/22/23 07:35 Temperature Pulse Rate Pulse Rate [Left R adial] Pulse Rate [Pulse Oximeter] Respiratory Rate 16 18 Blood Pressure [Le ft Arm] Blood Pressure [Ri ght Arm] Pulse Oximetry 97 Oxygen Delivery Me thod Room Air Oxygen Flow Rate 01/22/23 07:35 01/22/23 09:03 01/22/23 11:00 Temperature 97.8 F 97.7 F Pulse Rate 84 Pulse Rate [Left R adial] 83 Pulse Rate [Pulse Oximeter] 83 97 Respiratory Rate 18 20 Blood Pressure [Le ft Arm] 99/67 108/77 Blood Pressure [Ri ght Arm] Pulse Oximetry 97 96 Oxygen Delivery Me thod Room Air Room Air Oxygen Flow Rate Labs Labs: Laboratory Results - last 24 hr 01/22/23 05:42 INR 3.84 H
[2023-01-22] MEDS: diphenhydrAMINE 25 MG CAPSULE PO (18:34)
--- NOTE | 2023-01-22 19:13 | PC.NURSE ---
End of shift-- Pt has been pleasant and cooperative. Alert and oriented. VSS and pt is afebrile. SPO2 maintained >90% on RA. She c/o some mild pain in lower back, but declined intervention for it. LS CTA. BS+x4 and pt had a BM today. She denied nausea and tolerated a regular diet without difficulty. Blood sugar 121. Pt was given a Benadryl x1 this evening for itching. Report to RAQUEL Rivera.
[2023-01-22] MEDS: ROPINIROLE HCL 0.25 MG TABLET 0.5 MG PO (20:16)
[2023-01-22] MEDS: CIPROFLOXACIN 250 MG TABLET PO (20:16)
[2023-01-22 20:26] LABS: Calcium* 9.8 mg/dL (8.4-10.6)
[2023-01-23] MEDS: HYDROmorphone 2 MG TABLET PO ×3 (03:16→14:06)
--- NOTE | 2023-01-23 05:12 | PC.NURSE ---
SHIFT NOTE: Uneventful shift, pt pleasant and cooperative. Pt's birthday today, when asked by a staff member how old she was, the pt was unable to state her age, pt giggled and said I'm not quite sure, technical report writer told pt she was 63 and pt said yeah that sounds about right. Pt given PRN Dilaudid for back pain, effective. Pt Up independent, walked in the halls several times. Denied SOB, CP, and N/V. VSS on RA.
[2023-01-23 06:00] VITALS: RESP 18
[2023-01-23] MEDS: OMEPRAZOLE 20 MG CAPSULE DR PO (06:10)
[2023-01-23 06:54] LABS: INR 2.94 (0.91-1.10); Prothrombin Time 32.1 Seconds
[2023-01-23 07:40] VITALS: BP 121/88; PULSE 78; RESP 16; TEMP 36.8; O2SAT 98
[2023-01-23 08:44] VITALS: PULSE 78
[2023-01-23] MEDS: METFORMIN 500 MG TABLET PO ×2 (08:44→20:51)
[2023-01-23] MEDS: clonazePAM 0.5 MG TABLET PO ×2 (08:44→20:51)
[2023-01-23] MEDS: ATORVASTATIN CALCIUM 40 MG TABLET PO (08:44)
[2023-01-23] MEDS: DIGOXIN 125 MCG TABLET PO (08:44)
[2023-01-23] MEDS: TORSEMIDE 20 MG TABLET PO (08:44)
[2023-01-23] MEDS: lisinopriL 10 MG TABLET PO (08:45)
[2023-01-23] MEDS: CIPROFLOXACIN 250 MG TABLET PO ×2 (08:45→20:51)
[2023-01-23] MEDS: TORSEMIDE 5 MG TABLET PO (08:45)
[2023-01-23] MEDS: SENNOSIDES 1 TAB TABLET 2 TAB PO ×2 (08:45→20:52)
[2023-01-23] MEDS: METOPROLOL SUCCINATE (XL) 100 MG TAB PO ×2 (08:46→20:51)
[2023-01-23] MEDS: CLOTRIMAZOLE 1 % CREAM 1 APPLIC TOPICAL ×2 (08:46→20:52)
[2023-01-23] MEDS: CALCIUM CARBONATE 500 MG CHEW PO (11:22)
[2023-01-23] MEDS: ONDANSETRON ODT 4 MG TAB PO (11:58)
[2023-01-23] MEDS: polyethylene glycoL 3350 17 GM PACK PO (13:54)
[2023-01-23] MEDS: haloperidoL 1 MG TABLET 0.5 MG PO ×2 (14:07→21:28)
--- NOTE | 2023-01-23 14:58 | P.IMPN_ITS ---
Progress Note: A&P Assessment and plan (1) Altered mental status: Problem details: - At admission: differential diagnosis is broad and includes substance use, including methamphetamine, withdrawal from opiates or benzodiazepines or methamphetamine, encephalopathy, ETOH withdrawal, intracranial process, atypical ACS, serotonin syndrome. On 01/11/2023 we learned that patient had been administering ketamine topical lotion via her rectum for some time. [place], [place], indicated that it is possible that her current condition is a reflection of her withdrawal from the ketamine she has been self administering in this fashion. - continues on floor status with one-to-one nursing administrator as needed - 01/13/2023 initiated clonazepam 1 mg p.o. b.i.d. and for now continue with p.r.n. lorazepam - 01/17/23 Improving. Pleasant. - 01/18 Mostly pleasant. Remains somewhat confused and unable to do ADLs, executive function and problem solving are significantly impaired. - 01/19 while she has been improving, it appears that she is not yet back at baseline. She is overall calm. There are no focal deficits. She had a head CT during this hospital stay which was largely unremarkable. With the amount of time that she has been here, any substances she was using would be out of her system and withdrawal should be complete. She was started on clonazepam and lorazepam here. I will discontinue lorazepam and cut down clonazepam. Start Haldol as she was taking as an outpatient for agitation. If these do not help, consider repeating head CT for possible stroke. I do not think she would hold still enough for an MRI, but could consider sedating her to get 1. I am not sure if she would consent to that however. 01/20 - it appears cutting back on ativan and clonazepam and adding haldol prn as made a significant improvement. she is calm, more clear, more steady on her feet. MR as above. will do tele-stroke visit 01/21 01/21 - CVA is a not an active contributor to her current clinical presentation/situation. Dementia with new less functional baseline considered the diagnosis and this dementia likely multifactorial related to history of alcohol and drug use, long standing HTN and resultant stroke, and acute episode on or about 01/08 with additional encephalopathy. 01/22 - Patient is likely at baseline for her. No aggressive behaviors. I still feel she needs 24/7 care. Status: Acute (2) CVA (cerebral vascular accident): Problem details: chronic subcortical infarct the right precentral gyrus - not seen on CT at admission. [facility]: ASSESSMENT: # acute obtundation from drug abuse, improved. Now with cognitive impairment (MoCA 10/30), likely dementia. # small, chronic R precentral gyral infarct in the setting of afib. Likely incidental finding, not related to her obtundation, with negligible contribution to her dementia. Status: Acute (3) Atrial fibrillation with rapid ventricular response: Problem details: - Historically has had paroxysmal atrial fibrillation for number of years. Initially treated with rate control using metoprolol and anticoagulation. My understanding of her medical records is that an attempt was made at pharmacologic cardioversion utilizing amiodarone at 1 time. That was unsuccessful. She was started on sotalol. Last time she was seen by her clinical nurse occupational medicine was in March of 2021. Has not had follow-up since then. - Presented to our hospital on sotalol with AFib RVR. Rhythm has not changed entire time she has been in the hospital. I made the decision to stop the antiarhythmic and focus on rate control only utilizing metoprolol, diltiazem, and digoxin. Continues with warfarin anticoagulation with daily INRs. - Rate control variable, elevated last evening. Continue current regimen for rate control. I do not think she would tolerate coming off digoxin. Check level on Mon or . - INR is therapeutic, continue current warfarin dosing, which is slightly higher than outpatient dosing. Status: Acute (4) Polypharmacy: Problem details: This will warrant ongoing supportive management efforts Status: Acute (5) Diabetes mellitus: Problem details: - A1C 7.4 on 10/22/22 - continue home medications with SSI. - 01/17 increased SSI - 01/18 glucose adequate control now. Status: Acute (6) Bipolar disorder: Problem details: Obviously, this too can be driving her altered mental status state. we held antipsychotic secondary to her sotalol dose; now sotalol is off and rate control is achieved. restart Haldol cautious use of benzos; the reduction has helped her sensorium. Status: Acute (7) Hypertension: Problem details: - 01/17 DBP remains elevated. Added lisinopril. - 01/18 BP better control today. Monitor. Status: Acute (8) Microcytic anemia: Problem details: - chronic, likely 2/2 gastric bypass surgery - routine outpatient f/u Status: Acute (9) Hypokalemia: Problem details: Continue with potassium supplementation. Monitor magnesium. Status: Resolved (10) Difficulty swallowing: Problem details: Bedside swallow evaluation demonstrates patient quite able of swallowing liquids and food well. Does not swallow tablets or capsules well, seemingly an aversion. Status: Acute (11) Physical debility: Problem details: For appeared time patient will need help with activities of daily living, safety. Continue with inpatient physical therapy and occupational therapy support. Status: Acute (12) Urinary tract infection: Problem details: Proteus. Given her list of allergies, Cipro 250 p.o. b.i.d. for 6 doses. apply antifungal and barrier cream to her buttocks/gluteal fold. Status: Acute Subjective Date Seen: 01/23/23 Interval history: Daily Progress Note - Hospital Medicine #: 16 (admitted on 01/08) CC: AMS, OD, AFIB RVR OVERNIGHT UPDATES FROM STAFF & MED, LAB, IMAGING UPDATES Stable night. Asking for medications for RLS and constipation. I am not going to restart her ativan. I will scheduled her haldol, miralax. I started low dose requip for her RLS. Tobacco Vape pen was found in her room this afternoon. Pt is in need of memory care and unfortunately no specific skilled needs. We are awaiting disposition. Brain MRI Impression: 1. No acute/subacute infarct. 2. 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 3. Minimal chronic ischemic microvascular disease. DAY OF ADMISSION NOTE: Brandee Brown is a 62 year old female who presented to the ED this morning by ambulance for AMS. Patient unable to provide me any history; I did discuss the case with interim director at [facility], where patient lives. On 01/05, patient was found by staff to be more confused and was slurring her words. They were worried that she may have been using alcohol, and called PCP (Dr. Smith) with these concerns. Dr. Smith subsequently stopped her hydromorphone, lorazepam, and Adderall: - last dose of Hydromorphone 01/06 in the morning, was taking 4-6 mg per day - last prn Alprazolam dose 01/04 in the afternoon, was taking 0.5mg once/day for anxiety - last Adderall dose 01/06 in the morning, was taking 20mg daily She continued to have access to Tylenol, Meloxicam, Sertraline, and prn Lidocaine patches for pain. Medications are all administered by [facility] staff. There was some frustration from patient and family regarding the discontinuation of medications, but no known withdrawal symptoms. This morning, family could not get hold of patient and they asked staff at [facility] to let them in her room. She was then found on her bed with drug paraphernalia surrounding her, nonresponsive. EMS transported her to ED. ER Course and Findings: - AFib with RVR on EKG, rate in the 120s - given IV diltiazem 10 mg with improvement - therapeutic INR at 2.9 (on Coumadin for AFib) - hemoglobin 10.1, close to baseline - no acute infectious process on UA, UDS + TCAs, amphetamines, Marijuana Objective: slight slur to her words; gets off topic at times but is generally cooperative and making sense. Vitals: see above Lungs: Clear. Cardiac: S1S2. legs: 1+ edema Disposition/Potential discharge - likely will need 22/12 memory care. Today I spent 50minutes seeing the patient, reviewing Expanse and EPIC notes/diagnostics, discussing the care plan with our care time that includes social work, PT/OT, pharmacy, RT, intermediate and documenting my impressions and plan in the medical record. Exam Const: Vital Signs, click to edit/add: Vital Signs - 24 hr 01/22/23 15:00 01/22/23 15:00 01/22/23 15:00 Temperature 97.1 F L Pulse Rate Pulse Rate [Pulse Oximeter] 63 63 Respiratory Rate 16 16 Blood Pressure [Le ft Arm] Blood Pressure [Ri ght Arm] 101/88 Pulse Oximetry 100 100 Oxygen Delivery Me thod Room Air Room Air Oxygen Flow Rate 01/22/23 23:00 01/22/23 23:00 01/22/23 23:30 Temperature 98.1 F Pulse Rate Pulse Rate [Pulse Oximeter] 88 Respiratory Rate 18 18 18 Blood Pressure [Le ft Arm] 124/78 Blood Pressure [Ri ght Arm] Pulse Oximetry 97 97 Oxygen Delivery Me thod Room Air Room Air Oxygen Flow Rate 0 0 01/23/23 06:00 01/23/23 07:40 01/23/23 07:40 Temperature 98.2 F Pulse Rate Pulse Rate [Pulse Oximeter] 78 Respiratory Rate 18 16 16 Blood Pressure [Le ft Arm] 121/88 Blood Pressure [Ri ght Arm] Pulse Oximetry 98 98 Oxygen Delivery Me thod Room Air Room Air Oxygen Flow Rate 0 01/23/23 08:44 Temperature Pulse Rate 78 Pulse Rate [Pulse Oximeter] Respiratory Rate Blood Pressure [Le ft Arm] Blood Pressure [Ri ght Arm] Pulse Oximetry Oxygen Delivery Me thod Oxygen Flow Rate Labs Labs: Laboratory Results - last 24 hr 01/20/23 01/23/23 06:39 05:48 INR 2.94 H Calcium 9.8
[2023-01-23 15:00] VITALS: RESP 16; O2SAT 97
--- NOTE | 2023-01-23 15:39 | PC.SOCIAL ---
Discharge planning: Continuing to contact the following SNF's requesting a call back for availability and possible secure memory unit: [facility] [phone] msg left [facility] [phone] [facility] [phone] msg left This film writer spoke to patientBrandee, her daughter, Arabella and patient's ex-(?). Mentioned that this film writer was continuing to call facilities for discharge and asked if she wanted to look [facility] as daughter Autumn had mentioned. Daughter, Arabella said that she did not want her to go to a facility because of her PTSD might get worse. Ex- said that Autumn makes these decisions. Patient, Brandee stated that she did not want to go anywhere else but back home to [facility]. Brandee stated that she has an Ombudsman and that he told her that she will win the case and be able to go back home. She stated that she was not going to go to a memory care either. She then stated that it was her birthday today and she did not want to talk about this anymore. Social work to follow up.
--- NOTE | 2023-01-23 16:16 | PC.SOCIAL ---
Discharge Planning: Received call from [facility] Marilyn, Carroll Ocampo, who has met with pt and spoken with family and [place]. Per Carroll, [place] did not follow the correct procedure when she was evicted and since he has appealed on her behalf, she has a right to return to her apartment if she chooses to do that. Carroll also states that if she needs increased services the facility has to provide that and if she requests memory care, and [place] had an available bed, they would need to move her to that unit. Carroll states pt has an appointment with a airplane first officer from [employer] on Thursday at 2:15. This will be a phone appointment coordinated with her daughter, Autumn, who will be at the hospital with pt for this phone call. Hospital does not need to facilitate this call or provide any equipment for pt to participate as her daughter will be with her to facilitate.
--- NOTE | 2023-01-23 17:12 | PC.NURSE ---
Pt pleasant and cooperative. Pt alert to self and time. Pt takes medications whole in pudding. Pt had no complaints of pain. Pt up independently in room. Pt does not have IV in place. Pt had pain ranging from 4-5; see EMAR for intervention. Pt walked in hallways x 3.?
[2023-01-23 20:40] VITALS: BP 92/67; PULSE 108; RESP 18; TEMP 37; O2SAT 98
[2023-01-23] MEDS: ROPINIROLE HCL 0.25 MG TABLET 0.5 MG PO (21:30)
[2023-01-24 00:33] VITALS: RESP 18
[2023-01-24] MEDS: HYDROmorphone 2 MG TABLET PO ×3 (00:33→15:10)
--- NOTE | 2023-01-24 04:05 | PC.NURSE ---
Incident charting: Called by pt's nurse @ 194 as daughter Autumn was present and requesting vape pen back that was found under pt's pillow during the day. Call placed to wide area network administrator on-call to discuss visitation rights of driss Leyva as she left paraphernalia for pt in room. Decision was made to discuss with driss Leyva leaving paraphernalia for pt and if it were to happen again, visitation restrictions may need to be placed. Driss Leyva denied giving pt vape pen, states, I accidently left it here. Autumn also denies asking for vape pen back despite a nurse and the TELEPHONE SERVICES SALES REPRESENTATIVE confirming that she specifically asked them to get it back. Autumn verbalized understanding of discussion and left shortly after without retrieving her vape pen.
[2023-01-24 06:00] VITALS: RESP 18
[2023-01-24] MEDS: OMEPRAZOLE 20 MG CAPSULE DR PO (06:43)
--- NOTE | 2023-01-24 06:56 | PC.NURSE ---
END OF SHIFT NOTE: PT PLEASANT AND COOPERATIVE. A&Ox3. DENIES?CP, SOB, N/V. AMBULATES INDEPENDENTLY WITH 4WW. VSS ON RA; AFEBRILE. C/O LOWER BACK PAIN 02/08 WITH RELIEF FROM REPOSITIONING AND PRN DILAUDID. CALL LIGHT WITHIN PT?S REACH.?PER NURSING REPORT VAPE FOUND HIDDEN UNDER PT?S PILLOW TODAY (01/23). VAPE REMOVED FROM PT?S POSSESSION, PLACED IN BAG, LABELED PLACED IN LOCKED DRAWER. PT AND DTG-CRYSTAL EDUCATED ON HOSPITAL SMOKING AND PARAPHERNALIA POLICY BY GLOBAL CTO YANELI Benson RN.?PT REPORTED BLOOD IN STOOL. PT FLUSHED TOILET PRIOR TO NURSE OBSERVING. PLACED HAT IN TOILET TO COLLECT NEXT BM. RELEASE OF INFORMATION SIGNED AND SCANNED IN. LABS AND DOCTOR NOTES FROM 01/08-01/23 GIVEN TO DAUGHTER PER REQUEST FOR COURT DATE ON FRIDAY 01/26.
[2023-01-24 07:38] LABS: INR 1.63 (0.91-1.10); Prothrombin Time 20.3 Seconds
[2023-01-24 08:39] VITALS: BP 120/88; PULSE 92; RESP 16; TEMP 36.5; O2SAT 100
[2023-01-24 08:40] VITALS: RESP 16; O2SAT 100
[2023-01-24 08:43] VITALS: PULSE 92
[2023-01-24] MEDS: haloperidoL 1 MG TABLET 0.5 MG PO ×2 (08:43→20:50)
[2023-01-24] MEDS: CIPROFLOXACIN 250 MG TABLET PO ×2 (08:43→20:49)
[2023-01-24] MEDS: DIGOXIN 125 MCG TABLET PO (08:43)
[2023-01-24] MEDS: clonazePAM 0.5 MG TABLET PO ×2 (08:44→20:50)
[2023-01-24] MEDS: METOPROLOL SUCCINATE (XL) 100 MG TAB PO ×2 (08:44→20:50)
[2023-01-24] MEDS: METFORMIN 500 MG TABLET PO ×2 (08:44→20:49)
[2023-01-24] MEDS: TORSEMIDE 20 MG TABLET PO (08:44)
[2023-01-24] MEDS: TORSEMIDE 5 MG TABLET PO (08:44)
[2023-01-24] MEDS: polyethylene glycoL 3350 17 GM PACK PO (08:44)
[2023-01-24] MEDS: ATORVASTATIN CALCIUM 40 MG TABLET PO (08:44)
[2023-01-24] MEDS: SENNOSIDES 1 TAB TABLET 2 TAB PO ×2 (08:44→20:49)
[2023-01-24] MEDS: lisinopriL 10 MG TABLET PO (08:44)
[2023-01-24] MEDS: SERTRALINE 100 MG TABLET 200 MG PO (08:44)
[2023-01-24] MEDS: CLOTRIMAZOLE 1 % CREAM 1 APPLIC TOPICAL ×2 (08:45→20:50)
--- NOTE | 2023-01-24 09:21 | P.IMPN_ITS ---
Progress Note: A&P Assessment and plan (1) Altered mental status: Problem details: - At admission: differential diagnosis is broad and includes substance use, including methamphetamine, withdrawal from opiates or benzodiazepines or methamphetamine, encephalopathy, ETOH withdrawal, intracranial process, atypical ACS, serotonin syndrome. On 01/11/2023 we learned that patient had been administering ketamine topical lotion via her rectum for some time. [place], [place], indicated that it is possible that her current condition is a reflection of her withdrawal from the ketamine she has been self administering in this fashion. - continues on floor status with one-to-one nursing home social worker as needed - 01/13/2023 initiated clonazepam 1 mg p.o. b.i.d. and for now continue with p.r.n. lorazepam - 01/17/23 Improving. Pleasant. - 01/18 Mostly pleasant. Remains somewhat confused and unable to do ADLs, executive function and problem solving are significantly impaired. - 01/19 while she has been improving, it appears that she is not yet back at baseline. She is overall calm. There are no focal deficits. She had a head CT during this hospital stay which was largely unremarkable. With the amount of time that she has been here, any substances she was using would be out of her system and withdrawal should be complete. She was started on clonazepam and lorazepam here. I will discontinue lorazepam and cut down clonazepam. Start Haldol as she was taking as an outpatient for agitation. If these do not help, consider repeating head CT for possible stroke. I do not think she would hold still enough for an MRI, but could consider sedating her to get 1. I am not sure if she would consent to that however. 01/20 - it appears cutting back on ativan and clonazepam and adding haldol prn as made a significant improvement. she is calm, more clear, more steady on her feet. MR as above. will do tele-stroke visit 01/21 01/21 - CVA is a not an active contributor to her current clinical presentation/situation. Dementia with new less functional baseline considered the diagnosis and this dementia likely multifactorial related to history of alcohol and drug use, long standing HTN and resultant stroke, and acute episode on or about 01/08 with additional encephalopathy. 01/22 - Patient is likely at baseline for her. No aggressive behaviors. I still feel she needs 24/7 care. Status: Acute (2) CVA (cerebral vascular accident): Problem details: chronic subcortical infarct the right precentral gyrus - not seen on CT at admission. [facility]: ASSESSMENT: # acute obtundation from drug abuse, improved. Now with cognitive impairment (MoCA 10/30), likely dementia. # small, chronic R precentral gyral infarct in the setting of afib. Likely incidental finding, not related to her obtundation, with negligible contribution to her dementia. Status: Acute (3) Atrial fibrillation with rapid ventricular response: Problem details: - Historically has had paroxysmal atrial fibrillation for number of years. Initially treated with rate control using metoprolol and anticoagulation. My understanding of her medical records is that an attempt was made at pharmacologic cardioversion utilizing amiodarone at 1 time. That was unsuccessful. She was started on sotalol. Last time she was seen by her airport tower controller was in March of 2021. Has not had follow-up since then. - Presented to our hospital on sotalol with AFib RVR. Rhythm has not changed entire time she has been in the hospital. I made the decision to stop the antiarhythmic and focus on rate control only utilizing metoprolol, diltiazem, and digoxin. Continues with warfarin anticoagulation with daily INRs. - Rate control variable, elevated last evening. Continue current regimen for rate control. I do not think she would tolerate coming off digoxin. Check level on Thu or . 01/24: INR subtherapeutic; warfarin was on hold last dose 01/21; will resume at higher dose 5mg daily Status: Acute (4) Polypharmacy: Problem details: This will warrant ongoing supportive management efforts Status: Acute (5) Diabetes mellitus: Problem details: - A1C 7.4 on 10/22/22 - continue home medications with SSI. - 01/17 increased SSI - 01/18 glucose adequate control now. Status: Acute (6) Bipolar disorder: Problem details: Obviously, this too can be driving her altered mental status state. we held antipsychotic secondary to her sotalol dose; now sotalol is off and rate control is achieved. restart Haldol cautious use of benzos; the reduction has helped her sensorium. Status: Acute (7) Hypertension: Problem details: - 01/17 DBP remains elevated. Added lisinopril. - 01/18 BP better control today. Monitor. Status: Acute (8) Physical debility: Problem details: For appeared time patient will need help with activities of daily living, sa fety. Continue with inpatient physical therapy and occupational therapy support. Status: Acute (9) Hypokalemia: Problem details: Continue with potassium supplementation. Monitor magnesium. Status: Resolved (10) Anticoagulant long-term use: Problem details: - on warfarin for afib with lifelong goal of INR 2-3 - high risk patient for anticoagulation given fall risk Status: Acute Subjective Date Seen: 01/24/23 Interval history: No acute events overnight patient sleepy this morning has no complaints INR subtherapeutic today at 1.6, last dose per RN was 01/21 Exam Narrative: Exam Narrative: Gen: no acute dist ress HEENT: NCAT E KALIA mmm CV: RRR no rmal s1 s2 Lungs: CTAB Abd: Soft,nt, nd Neuro: Alert, nonfocal screening ?exam Psych: flat affect MSK: age ap propriate muscle m ass Const: Vital Signs, click to edit/add: Vital Signs - 24 hr 01/23/23 15:00 01/23/23 20:40 01/23/23 20:40 Temperature 98.6 F Pulse Rate Pulse Rate [Pulse Oximeter] 108 H Respiratory Rate 16 18 18 Blood Pressure [Le ft Arm] Blood Pressure [Ri ght Arm] 92/67 Pulse Oximetry 97 98 98 Oxygen Delivery Me thod Room Air Room Air Room Air Oxygen Flow Rate 0 01/24/23 00:33 01/24/23 06:00 01/24/23 08:39 Temperature 97.7 F Pulse Rate Pulse Rate [Pulse Oximeter] 92 Respiratory Rate 18 18 16 Blood Pressure [Le ft Arm] 120/88 Blood Pressure [Ri ght Arm] Pulse Oximetry 100 Oxygen Delivery Me thod Room Air Oxygen Flow Rate 01/24/23 08:43 Temperature Pulse Rate 92 Pulse Rate [Pulse Oximeter] Respiratory Rate Blood Pressure [Le ft Arm] Blood Pressure [Ri ght Arm] Pulse Oximetry Oxygen Delivery Me thod Oxygen Flow Rate Labs Labs: Laboratory Results - last 24 hr 01/24/23 05:30 INR 1.63 H
[2023-01-24] MEDS: ONDANSETRON ODT 4 MG TAB PO (10:16)
[2023-01-24] MEDS: CALCIUM CARBONATE 500 MG CHEW PO (15:16)
[2023-01-24] MEDS: diphenhydrAMINE 25 MG CAPSULE PO (16:31)
--- NOTE | 2023-01-24 16:35 | PC.NURSE ---
Pt pleasant and cooperative. Pt alert to self and place. Pt takes medications whole in pudding.? Pt up independently in room. Pt does not have IV in place. Pt had pain ranging from 0-8; see EMAR for intervention. Pt had nausea mid-morning; see EMAR for intervention. Pt slept most of [id number] afternoon. Pt refused lunch. Ordered snack midafternoon. Pt had complaints of stomach pain midafternoon; see EMAR for intervention. Hospitalist notified. ? ?
[2023-01-24] MEDS: WARFARIN 5 MG TABLET PO (17:31)
[2023-01-24 20:00] VITALS: BP 112/90; PULSE 83; RESP 16; TEMP 36.6; O2SAT 98
[2023-01-24] MEDS: ROPINIROLE HCL 0.25 MG TABLET 0.5 MG PO (22:03)
[2023-01-25] MEDS: HYDROmorphone 2 MG TABLET PO ×4 (00:19→17:55)
[2023-01-25] MEDS: ACETAMINOPHEN 500 MG TABLET 1000 MG PO ×2 (03:16→22:40)
[2023-01-25] MEDS: OMEPRAZOLE 20 MG CAPSULE DR PO (06:18)
--- NOTE | 2023-01-25 06:36 | PC.NURSE ---
19: pleasant and cooperative. Pt took a bath at . Walks halls with gb indep. c/o ?osteo? pain, PRN medications given, offered relief.
[2023-01-25 07:57] VITALS: BP 106/71; PULSE 78; RESP 16; TEMP 36.7; O2SAT 98
[2023-01-25] MEDS: CLOTRIMAZOLE 1 % CREAM 1 APPLIC TOPICAL ×2 (08:37→20:34)
[2023-01-25] MEDS: polyethylene glycoL 3350 17 GM PACK PO (08:38)
[2023-01-25] MEDS: haloperidoL 1 MG TABLET 0.5 MG PO ×2 (08:38→20:33)
[2023-01-25] MEDS: clonazePAM 0.5 MG TABLET PO ×2 (08:39→20:33)
[2023-01-25] MEDS: METOPROLOL SUCCINATE (XL) 100 MG TAB PO ×2 (08:39→20:33)
[2023-01-25] MEDS: CIPROFLOXACIN 250 MG TABLET PO (08:39)
[2023-01-25 08:40] VITALS: PULSE 78
[2023-01-25] MEDS: DIGOXIN 125 MCG TABLET PO (08:40)
[2023-01-25] MEDS: ATORVASTATIN CALCIUM 40 MG TABLET PO (08:40)
[2023-01-25] MEDS: SENNOSIDES 1 TAB TABLET 2 TAB PO ×2 (08:40→20:32)
[2023-01-25] MEDS: TORSEMIDE 20 MG TABLET PO (08:40)
[2023-01-25] MEDS: lisinopriL 10 MG TABLET PO (08:40)
[2023-01-25] MEDS: TORSEMIDE 5 MG TABLET PO (08:40)
[2023-01-25] MEDS: METFORMIN 500 MG TABLET PO ×2 (08:40→20:33)
[2023-01-25] MEDS: GLYCERIN SUPP (ADULT) 1 SUPP PR (08:41)
[2023-01-25] MEDS: SERTRALINE 100 MG TABLET 200 MG PO (08:41)
--- NOTE | 2023-01-25 13:13 | P.IMPN_ITS ---
Progress Note: A&P Assessment and plan (1) Altered mental status: Problem details: - At admission: Wide differential. -after 18 days of admission, CT of the brain, MRI of the brain, neuro consult: Essentially, I believe she was using recreational drugs (ketamine rectally), THC that acutely altered her sensorium. I think at a baseline she has severe personality disorder and dementia that is progressing as well as a progressive encephalopathy related to chronic drug use. -she asks for medication for every symptom or diagnosis she knows she has. She is most functional and clear minded when taking schedule doses of Haldol and clonazepam. -01/13/2023 initiated clonazepam 1 mg p.o. b.i.d. and for now continue with p.r.n. lorazepam - 01/17/23 Improving. Pleasant. - 01/18 Mostly pleasant. Remains somewhat confused and unable to do ADLs, executive function and problem solving are significantly impaired. - 01/19 while she has been improving, it appears that she is not yet back at baseline. Hold Ativan, reduce clonazepam. Haldol p.r.n. 01/20 - it appears cutting back on ativan and clonazepam as made a significant improvement. she is calm, more clear, more steady on her feet. MR revealed an old stroke. will do tele-stroke visit 01/21 01/21 - CVA is a not an active contributor to her current clinical presentation/situation. Dementia with new less functional baseline considered the diagnosis and this dementia likely multifactorial related to history of alcohol and drug use, long standing HTN and resultant stroke in longstanding psychiatric diagnoses. This is superimposed with an acute episode on or about 01/08 with additional encephalopathy from drug use. This acute episode has now resolved. 01/22 -01/25- Patient is likely at baseline for her. No aggressive behaviors. I still feel she needs 22/12 care. Status: Acute (2) CVA (cerebral vascular accident): Problem details: chronic subcortical infarct the right precentral gyrus - not seen on CT at admission. [facility]: ASSESSMENT: # acute obtundation from drug abuse, improved. Now with cognitive impairment (MoCA 10/30), likely dementia. # small, chronic R precentral gyral infarct in the setting of afib. Likely inc idental finding, not related to her obtundation, with negligible contribution to her dementia. Status: Acute (3) Atrial fibrillation with rapid ventricular response: Problem details: - Historically has had paroxysmal atrial fibrillation for number of years. Initially treated with rate control using metoprolol and anticoagulation. My understanding of her medical records is that an attempt was made at pharmacologic cardioversion utilizing amiodarone at 1 time. That was unsuccessful. She was started on sotalol. Last time she was seen by her stem setter was in March of 2021. Has not had follow-up since then. - Presented to our hospital on sotalol with AFib RVR. Rhythm has not changed en tire time she has been in the hospital. I made the decision to stop the antiarhythmic and focus on rate control only utilizing metoprolol, diltiazem, and digoxin. Continues with warfarin anticoagulation with daily INRs. - Rate control variable, elevated last evening. Continue current regimen for rate control. I do not think she would tolerate coming off digoxin. Check level on Mon or . 01/24: INR subtherapeutic; warfarin was on hold last dose 01/21; will resume at higher dose 5mg daily Status: Acute (4) Polypharmacy: Problem details: This will warrant ongoing supportive management efforts Status: Acute (5) Diabetes mellitus: Problem details: - A1C 7.4 on 10/22/22 - continue home medications with SSI. - 01/17 increased SSI - 01/18 glucose adequate control now. Status: Acute (6) Bipolar disorder: Problem details: Obviously, this too can be driving her altered mental status state. we held antipsychotic secondary to her sotalol dose; now sotalol is off and rate control is achieved. Scheduled clonazepam and Haldol cautious use of benzos; the reduction in clonazepam and discontinuing the Ativan has helped her sensorium. Status: Acute (7) Hypertension: Problem details: - 01/17 DBP remains elevated. Added lisinopril. - 01/18 BP better control today. Monitor. Status: Acute (8) Physical debility: Problem details: For appeared time patient will need help with activities of daily living, safety. Continue with inpatient physical therapy and occupational therapy support. Status: Acute (9) Hypokalemia: Problem details: Continue with potassium supplementation. Monitor magnesium. Status: Resolved (10) Anticoagulant long-term use: Problem details: - on warfarin for afib with lifelong goal of INR 2-3 - high risk patient for anticoagulation given fall risk Status: Acute Subjective Date Seen: 01/25/23 Interval history: Daily Progress Note - Hospital Medicine Day #: 18 (admitted on 01/08) CC: AMS, OD, AFIB RVR OVERNIGHT UPDATES FROM STAFF & MED, LAB, IMAGING UPDATES Stable night. Asking for medications for RLS and constipation. I am not going to restart her ativan. I will scheduled her haldol, miralax. I started low dose requip for her RLS. Tobacco Vape pen was found in her room this afternoon. Pt is in need of memory care and unfortunately no specific skilled needs. We are awaiting disposition. Brain MRI Impression: 1. No acute/subacute infarct. 2. 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 3. Minimal chronic ischemic microvascular disease. DAY OF ADMISSION NOTE: Brandee Brown is a 62 year old female who presented to the ED this morning by ambulance for AMS. Patient unable to provide me any history; I did discuss the case with interim director at [facility], where patient lives. On 01/05, patient was found by staff to be more confused and was slurring her words. They were worried that she may have been using alcohol, and called PCP (Dr. Smith) with these concerns. Dr. Smith subsequently stopped her hydromorphone, lorazepam, and Adderall: - last dose of Hydromorphone 01/06 in the morning, was taking 4-6 mg per day - last prn Alprazolam dose 01/04 in the afternoon, was taking 0.5mg once/day for anxiety - last Adderall dose 01/06 in the morning, was taking 20mg daily She continued to have access to Tylenol, Meloxicam, Sertraline, and prn Lidocaine patches for pain. Medications are all administered by [facility] staff. There was some frustration from patient and family regarding the discontinuation of medications, but no known withdrawal symptoms. This morning, family could not get hold of patient and they asked staff at [facility] to let them in her room. She was then found on her bed with drug paraphernalia surrounding her, nonresponsive. EMS transported her to ED. ER Course and Findings: - AFib with RVR on EKG, rate in the 120s - given IV diltiazem 10 mg with improvement - therapeutic INR at 2.9 (on Coumadin for AFib) - hemoglobin 10.1, close to baseline - no acute infectious process on UA, UDS + TCAs, amphetamines, Marijuana Objective: slight slur to her words; gets off topic at times but is generally cooperative and making sense. Vitals: see above Lungs: Clear. Cardiac: S1S2. legs: 1+ edema Disposition/Potential discharge - likely will need 24/ memory care. Today I spent 50minutes seeing the patient, reviewing Expanse and EPIC notes/diagnostics, discussing the care plan with our care time that includes social work, PT/OT, pharmacy, RT, fci and documenting my impressions and plan in the medical record. Exam Const: Vital Signs, click to edit/add: Vital Signs - 24 hr 01/24/23 20:00 01/25/23 07:57 01/25/23 08:40 Temperature 97.8 F 98.0 F Pulse Rate 78 Pulse Rate [Pulse Oximeter] 83 78 Respiratory Rate 16 16 Blood Pressure [Ri ght Arm] 112/90 H 106/71 Pulse Oximetry 98 98 Oxygen Delivery Me thod Room Air Room Air Oxygen Flow Rate 0 0 Labs Labs: Laboratory Results - last 24 hr 01/25/23 05:32 INR 1.30 H
[2023-01-25] MEDS: WARFARIN 5 MG TABLET PO (17:53)
--- NOTE | 2023-01-25 18:49 | PC.NURSE ---
Pt pleasant and cooperative. VSS. Pt alert to self and place, Pt takes medications whole in pudding.? Pt up independently in room. Pt does not have IV in place. Pt had pain ranging from 5-9 see EMAR for intervention. Suppository given with morning medications. Pt had bowel movement; PT flushed toilet without calling staff like instructed. Pt reported it was a small bowel movement. Pt wanted to take medications without pudding trialed with pain medication in early afternoon tolerated well. Pt took evening pills without pudding and tolerated well.?
[2023-01-25 19:00] VITALS: BP 102/57; PULSE 84; RESP 18; TEMP 36.7; O2SAT 98
[2023-01-25] MEDS: diphenhydrAMINE 25 MG CAPSULE PO (22:41)
[2023-01-25] MEDS: ROPINIROLE HCL 0.25 MG TABLET 0.5 MG PO (22:41)
[2023-01-26] MEDS: HYDROmorphone 2 MG TABLET PO ×4 (01:00→21:54)
--- NOTE | 2023-01-26 03:57 | PC.NURSE ---
PATIENT PLEASANT, VERY FORGETFUL, OFTEN REPEATS THE SAME QUESTIONS, REPORTING GI PAIN IN ABDOMEN AND SOME ITCHING ON STOMACH, SEE PRN MEDICATIONS FOR MANAGEMENT, UP IND WITH 4WW.
[2023-01-26] MEDS: OMEPRAZOLE 20 MG CAPSULE DR PO (07:31)
[2023-01-26 07:51] LABS: INR 1.83 (0.91-1.10); Prothrombin Time 22.1 Seconds
[2023-01-26 08:20] VITALS: BP 113/74; PULSE 83; RESP 16; TEMP 36.7; O2SAT 97
[2023-01-26 08:20] LABS: Chloride* 102 mmol/L (96-114); Sodium* 140 mmol/L (135-149)
[2023-01-26 08:21] LABS: Potassium* 4.3 mmol/L (3.6-5.1)
[2023-01-26 08:23] LABS: Anion Gap 8 mEq/L (7-15); Carbon Dioxide* 30 mmol/L (20-32); Creatinine* 0.4 mg/dL (0.5-1.5); Est. Creatinine Clearance* 45.54; Estimated Glomerular Filt Rate 111 ml/min
[2023-01-26 08:24] LABS: Blood Urea Nitrogen* 14 mg/dL (7-30); Calcium* 9.7 mg/dL (8.4-10.6); Glucose* 120 mg/dL (60-115)
[2023-01-26] MEDS: CLOTRIMAZOLE 1 % CREAM 1 APPLIC TOPICAL ×2 (08:32→20:33)
[2023-01-26] MEDS: polyethylene glycoL 3350 17 GM PACK PO (08:32)
[2023-01-26] MEDS: lisinopriL 10 MG TABLET PO (08:33)
[2023-01-26] MEDS: SERTRALINE 100 MG TABLET 200 MG PO (08:33)
[2023-01-26] MEDS: METFORMIN 500 MG TABLET PO ×2 (08:33→20:33)
[2023-01-26] MEDS: TORSEMIDE 20 MG TABLET PO (08:33)
[2023-01-26 08:34] VITALS: PULSE 83
[2023-01-26] MEDS: METOPROLOL SUCCINATE (XL) 100 MG TAB PO ×2 (08:34→20:33)
[2023-01-26] MEDS: DIGOXIN 125 MCG TABLET PO (08:34)
[2023-01-26] MEDS: SENNOSIDES 1 TAB TABLET 2 TAB PO ×2 (08:34→20:33)
[2023-01-26] MEDS: TORSEMIDE 5 MG TABLET PO (08:34)
[2023-01-26] MEDS: clonazePAM 0.5 MG TABLET PO ×2 (08:34→20:33)
[2023-01-26] MEDS: ATORVASTATIN CALCIUM 40 MG TABLET PO (08:34)
[2023-01-26] MEDS: haloperidoL 1 MG TABLET 0.5 MG PO ×2 (08:36→20:33)
[2023-01-26 08:43] LABS: HCO3 VBG 32 mmol/L (21-28); PCO2 VBG 52 mmHG (40-50); PO2 VBG 33.6 mmHG (25-47); pH VBG 7.392 (7.32-7.43)
[2023-01-26] MEDS: ALBUTEROL INHALER 2 PUFF IH (08:50)
--- NOTE | 2023-01-26 09:04 | REH.OTCOG ---
Addendum entered and electronically signed by MELI Rayo/Thanh 01/26/23 09:25: CPT completed on 01/25/23 by MAYELA Corado and Cognitive note recorded 01/26/23 by this OT. Original Note: Cognitive Assessment Report [facility]: Occupational Therapy Department Patient: Brandee Brown Date: 01/26/23 Tests Performed and Interpretations 1. [employer] Cognitive Assessment (MoCA) Score: 10/30 on 01/20/23 26-30 = Normal cognition A score of less than 26 indicates need for further cognitive assessments Cognitive Performance Test (CPT) Score: 4.6 on 01/24/23 Normal function = 5.6 CPT Interpretation: CPT Level 4.6-4.8: Good at some things, slipping on others. Person may not be aware of his or her own deficits and may be able to verbally speak better than they can actually perform. Can learn new information with repetition, but learning may not easily generalize to different settings. May live alone with daily assistance ? senior apartment, assisted living, home with daily checks Considerations: 1) Managing medications and health care Supervision for set-up and compliance Medication box Medication schedule 2) Managing finances May require total or close supervision Automatic bill pay Online banking for family to check transactions [place] power of trial attorney 3) Driving Driving evaluation Alternative transportation arrangements 4) Meal planning and preparation Assistance recommended with meal planning, grocery shopping, and cooking 5) Shopping Shop with someone Create shopping lists 6) Managing schedule/calendar Use of a large calendar in plain sight Assistance to establish and maintain a daily routine Daily/weekly planners 7) Safety Shower adaptive equipment: shower chair/bath bench, grab bars, and hand held shower head Supervise use of power tools Remove unsteady furniture, small rugs, and objects from floor 8) Dressing and hygiene Reminders to wash/dress appropriately Reminders to use sunscreen 9) Laundry Assistance to monitor frequency Brandee is demonstrating the ability to manage basic ADLs and mobility mod I with use of DME. This is in a controlled healthcare environment where her medications are being managed by nursing and MDs and she does not have access to unprescribed substances that were found in her system upon initial admit. It is recommended she be in a setting with assistance for showering with use of bench and grab bars, assist with meals, home management tasks, IADLs of finances, transportation, managing medical appointments.
--- NOTE | 2023-01-26 09:54 | PC.SOCIAL ---
Discharge plan: Pt has indicated she wants to return to her apartment at [facility] at discharge. Called dtr, Autumn, who is agreeable to meet at the hospital this afternoon to discuss discharge plan with physician and social media campaign manager. Autumn is aware pt will be ready for discharge tomorrow and is planning to return to [facility]. Autumn states a family member will be able to provide transportation back tomorrow. Called [facility] nurseYaritza([phone], who instructed social media campaign manager to call [facility] advertising account executive, Nellie at [phone], to discuss discharge plans. slab worker left message for Nellie and awaiting call back. slab worker to follow up as needed.
--- NOTE | 2023-01-26 13:53 | PC.NURSE ---
Pt pleasant and cooperative. VSS. Pt alert to self and place. Pt taking medications whole. Pt up independently in room. Pt does not have IV in place. Pt had pain ranging from 0-9 see EMAR for intervention. ?
--- NOTE | 2023-01-26 14:17 | PC.NURSE ---
Late entry01/26/23: Per hospitalist on 01/25/23- Okay to trial medications whole with out pudding. Pt requested this change.
--- NOTE | 2023-01-26 14:31 | P.IMPN_ITS ---
Progress Note: A&P Assessment and plan (1) Altered mental status: Problem details: - At admission: Wide differential. -after 19 days of admission, CT of the brain, MRI of the brain, neuro consult: Essentially, I believe she was using recreational drugs (ketamine rectally), THC that acutely altered her sensorium. I think at a baseline she has severe personality disorder and dementia that is progressing as well as a progressive encephalopathy related to chronic drug use. -she asks for medication for every symptom or diagnosis she knows she has. She is most functional and clear minded when taking schedule doses of Haldol and clonazepam. -01/13/2023 initiated clonazepam 1 mg p.o. b.i.d. and for now continue with p.r.n. lorazepam - 01/17/23 Improving. Pleasant. - 01/18 Mostly pleasant. Remains somewhat confused and unable to do ADLs, executive function and problem solving are significantly impaired. - 01/19 while she has been improving, it appears that she is not yet back at baseline. Hold Ativan, reduce clonazepam. Haldol p.r.n. 01/20 - it appears cutting back on ativan and clonazepam as made a significant improvement. she is calm, more clear, more steady on her feet. MR revealed an old stroke. will do tele-stroke visit 01/21 01/21 - CVA is a not an active contributor to her current clinical presentation/situation. Dementia with new less functional baseline considered the diagnosis and this dementia likely multifactorial related to history of alcohol and drug use, long standing HTN and resultant stroke in longstanding psychiatric diagnoses. This is superimposed with an acute episode on or about 01/08 with additional encephalopathy from drug use. This acute episode has now resolved. 01/26- Patient is likely at baseline for her. No aggressive behaviors. May possibly be able to reside in assisted living facility. Status: Acute (2) CVA (cerebral vascular accident): Problem details: chronic subcortical infarct the right precentral gyrus - not seen on CT at admission. [facility]: ASSESSMENT: # acute obtundation from drug abuse, improved. Now with cognitive impairment (MoCA 10/30), likely dementia. # small, chronic R precentral gyral infarct in the setting of afib. Likely incidental finding, not related to her obtundation, with negligible contribution to her dementia. Status: Acute (3) Atrial fibrillation with rapid ventricular response: Problem details: - Historically has had paroxysmal atrial fibrillation for number of years. Initially treated with rate control using metoprolol and anticoagulation. My understanding of her medical records is that an attempt was made at pharmacologic cardioversion utilizing amiodarone at 1 time. That was unsucce ssful. She was started on sotalol. Last time she was seen by her nuclear equipment test engineer was in March of 2021. Has not had follow-up since then. - Presented to our hospital on sotalol with AFib RVR. Rhythm has not changed entire time she has been in the hospital. I made the decision to stop the antiarhythmic and focus on rate control only utilizing metoprolol, diltiazem, and digoxin. Continues with warfarin anticoagulation with daily INRs. - Rate control variable, elevated last evening. Continue current regimen for rate control. I do not think she would tolerate coming off digoxin. Check level on Mon or . 01/24: INR subtherapeutic; warfarin was on hold last dose 01/21; will resume at higher dose 5mg daily Status: Acute (4) Polypharmacy: Problem details: This will warrant ongoing supportive management efforts Status: Acute (5) Diabetes mellitus: Problem details: - A1C 7.4 on 10/22/22 - continue home medications with SSI. - 01/17 increased SSI - 01/18 glucose adequate control now. Status: Acute (6) Bipolar disorder: Problem details: Obviously, this too can be driving her altered mental status state. we held antipsychotic secondary to her sotalol dose; now sotalol is off and rate control is achieved. Scheduled clonazepam and Haldol cautious use of benzos; the reduction in clonazepam and discontinuing the Ativan has helped her sensorium. Status: Acute (7) Hypertension: Problem details: - 01/17 DBP remains elevated. Added lisinopril. - 01/18 BP better control today. Monitor. Status: Acute (8) Physical debility: Problem details: For appeared time patient will need help with activities of daily living, safety. Continue with inpatient physical therapy and occupational therapy support. Status: Acute (9) Hypokalemia: Problem details: Continue with potassium supplementation. Monitor magnesium. Status: Resolved (10) Anticoagulant long-term use: Problem details: - on warfarin for afib with lifelong goal of INR 2-3 - high risk patient for anticoagulation given fall risk Status: Acute Plan 1. Reviewed with patient 2. Discussed in morning Huddle with social work program coordinator, nursing staff, physical therapy, occupational therapy, pharmacist, dietary. It is possible patient might be able to return to an assisted living facility with support as she previously had. 3. May need to attempt family conference in order to further define patient's goals, need for support, possible living setting beyond hospitalization. Time Spent With Patient Total time spent: 40 minutes Subjective Time Seen by Provider: 08:00 Date Seen: 01/26/23 Interval history: Daily Progress Note - Hospital Medicine Day #: 19 (admitted on 01/08) CC: AMS, OD, AFIB RVR Subjectively the patient indicates she is feeling well. When I cared for her earlier in the course of her hospitalization she was not as readily interactive as she presently is. She states she is feeling well and doing well. She indicates she is anxious to return to her home at the [facility]. I received word from the hospital director social welfare that it is possible that the [facility] will accept her back to their facility and provider with a similar level of support as they did previously including med passing. I also indicated to the patient that if they do ultimately decide to allow her to return that she will need to not use any street drugs or any other drugs in a non-prescribed fashion while living there. Denies chest heaviness, pressure, tightness, or pain. Denies dyspnea at rest, paroxysmal nocturnal dyspnea, orthopnea. Tolerating increased activities with use of her walker in the hallway. Eating and drinking without difficulties. Denies nausea or vomiting or abdominal pain. States bowel and bladder function are satisfactory. Brain MRI Impression: 1. No acute/subacute infarct. 2. 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 3. Minimal chronic ischemic microvascular disease. DAY OF ADMISSION NOTE: Brandee Brown is a 62 year old female who presented to the ED this morning by ambulance for AMS. Patient unable to provide me any history; I did discuss the case with interim director at [facility], where patient lives. On 01/05, patient was found by staff to be more confused and was slurring her words. They were worried that she may have been using alcohol, and called PCP (Dr. Smith) with these concerns. Dr. Smith subsequently stopped her hydromorphone, lorazepam, and Adderall: - last dose of Hydromorphone 01/06 in the morning, was taking 4-6 mg per day - last prn Alprazolam dose 01/04 in the afternoon, was taking 0.5mg once/day for anxiety - last Adderall dose 01/06 in the morning, was taking 20mg daily She continued to have access to Tylenol, Meloxicam, Sertraline, and prn Lidocaine patches for pain. Medications are all administered by [facility] staff. There was some frustration from patient and family regarding the discontinuation of medications, but no known withdrawal symptoms. This morning, family could not get hold of patient and they asked staff at [facility] to let them in her room. She was then found on her bed with drug paraphernalia surrounding her, nonresponsive. EMS transported her to ED. ER Course and Findings: - AFib with RVR on EKG, rate in the 120s - given IV diltiazem 10 mg with improvement - therapeutic INR at 2.9 (on Coumadin for AFib) - hemoglobin 10.1, close to baseline - no acute infectious process on UA, UDS + TCAs, amphetamines, Marijuana Exam Narrative: Exam Narrative: Appears comfortable and in no acute distress. I examine her in her room. Vision and hearing are grossly normal. Alert and oriented to self, place, time, and situation. Friendly, cooperative, with mood and affect congruent. Able to track conversation today Lungs clear to auscultation. Heart tones with regular rhythm. Abdomen with active bowel sounds, soft, nontender. Trace edema pretibially bilaterally lower extremities. No obvious focal motor neurologic deficits. Ambulates independently with walker. Feed self without any assistance. Const: Vital Signs, click to edit/add: Vital Signs - 24 hr 01/25/23 19:00 01/26/23 08:20 01/26/23 08:34 Temperature 98.0 F 98.0 F Pulse Rate 83 Pulse Rate [Pulse Oximeter] 84 83 Respiratory Rate 18 16 Blood Pressure [Le ft Arm] 113/74 Blood Pressure [Ri ght Arm] 102/57 L Pulse Oximetry 98 97 Oxygen Delivery Me thod Room Air Room Air Oxygen Flow Rate 0 Documenting provider has reviewed patient's vital signs: yes Labs Labs: Laboratory Results - last 24 hr 01/26/23 07:23 INR 1.83 H VBG pH 7.392 VBG pCO2 52 H VBG pO2 33.6 VBG HCO3 32 H Sodium 140 Potassium 4.3 Chloride 102 Carbon Dioxide 30 Anion Gap 8 BUN 14 Creatinine 0.4 L Estimated Creat Clear 45.54 Estimated GFR 111 Glucose 120 H Calcium 9.7
[2023-01-26] MEDS: WARFARIN 5 MG TABLET PO (17:17)
[2023-01-26 19:00] VITALS: BP 120/85; PULSE 93; RESP 18; TEMP 36.6; O2SAT 97
[2023-01-26] MEDS: ROPINIROLE HCL 0.25 MG TABLET 0.5 MG PO (20:50)
--- NOTE | 2023-01-26 22:17 | PC.NURSE ---
End of Shift: Patient pleasant and cooperative. Afebrile. C/o pain in back up to 8/10, PRN Dilaudid given x2. Up independently in room. Tolerating regular diet with no nausea.
[2023-01-27] MEDS: HYDROmorphone 2 MG TABLET PO ×4 (03:52→23:07)
--- NOTE | 2023-01-27 05:12 | PC.NURSE ---
[id number]: Patient pleasant and cooperative. Independent w/4ww. c/o lower back pain w/prn medication for relief. Appeared to rest well during noc.
[2023-01-27 06:29] LABS: HCO3 VBG 30 mmol/L (21-28); PCO2 VBG 48 mmHG (40-50); PO2 VBG 48.9 mmHG (25-47); pH VBG 7.407 (7.32-7.43)
[2023-01-27] MEDS: OMEPRAZOLE 20 MG CAPSULE DR PO (06:41)
[2023-01-27 06:46] LABS: INR 2.46 (0.91-1.10); Prothrombin Time 27.9 Seconds
[2023-01-27 06:48] LABS: Albumin* 3.6 g/dL (3.3-5.0); Chloride* 103 mmol/L (96-114); Potassium* 4.4 mmol/L (3.6-5.1); Sodium* 137 mmol/L (135-149)
[2023-01-27 06:51] LABS: Alanine Aminotransferase* 60 U/L (4-35); Alkaline Phosphatase* 80 U/L (40-150); Anion Gap 5 mEq/L (7-15); Aspartate Amino Transferase* 53 U/L (12-35); Bilirubin Direct* 0.1 mg/dL (0.0-0.5); Bilirubin Total* 0.4 mg/dL (0.1-1.5); Blood Urea Nitrogen* 17 mg/dL (7-30); Calcium* 8.8 mg/dL (8.4-10.6); Carbon Dioxide* 29 mmol/L (20-32); Creatinine* 0.4 mg/dL (0.5-1.5); Est. Creatinine Clearance* 45.54; Estimated Glomerular Filt Rate 111 ml/min; Glucose* 131 mg/dL (60-115); Total Protein* 6.2 g/dL (6.0-8.3)
[2023-01-27 07:00] VITALS: BP 115/78; PULSE 93; RESP 16; TEMP 36.6; O2SAT 99
[2023-01-27 09:06] VITALS: BMI 37.5
[2023-01-27 09:11] VITALS: PULSE 93
[2023-01-27] MEDS: DIGOXIN 125 MCG TABLET PO (09:11)
[2023-01-27] MEDS: CLOTRIMAZOLE 1 % CREAM 1 APPLIC TOPICAL ×2 (09:11→20:52)
[2023-01-27] MEDS: polyethylene glycoL 3350 17 GM PACK PO (09:11)
[2023-01-27] MEDS: SERTRALINE 100 MG TABLET 200 MG PO (09:11)
[2023-01-27] MEDS: METOPROLOL SUCCINATE (XL) 100 MG TAB PO ×2 (09:12→20:51)
[2023-01-27] MEDS: ATORVASTATIN CALCIUM 40 MG TABLET PO (09:12)
[2023-01-27] MEDS: TORSEMIDE 5 MG TABLET PO (09:12)
[2023-01-27] MEDS: TORSEMIDE 20 MG TABLET PO (09:12)
[2023-01-27] MEDS: lisinopriL 10 MG TABLET PO (09:12)
[2023-01-27] MEDS: SENNOSIDES 1 TAB TABLET 2 TAB PO ×2 (09:12→20:51)
[2023-01-27] MEDS: METFORMIN 500 MG TABLET PO ×2 (09:13→20:52)
[2023-01-27] MEDS: clonazePAM 0.5 MG TABLET PO ×2 (09:13→20:51)
[2023-01-27] MEDS: ACETAMINOPHEN 500 MG TABLET 1000 MG PO (09:21)
[2023-01-27] MEDS: haloperidoL 1 MG TABLET 0.5 MG PO ×2 (09:22→20:52)
--- NOTE | 2023-01-27 12:01 | PC.SOCIAL ---
Discharge plan: Received call back from nurse, Yaritza, at [facility], stating they have not received the information faxed form the hospital yesterday and requested it be refaxed. Refaxed information and awaiting decision on pt returning at discharge. pet care worker to follow up as needed.
[2023-01-27] MEDS: diphenhydrAMINE 25 MG CAPSULE PO (12:15)
--- NOTE | 2023-01-27 14:09 | P.IMPN_ITS ---
Progress Note: A&P Assessment and plan (1) Altered mental status: Problem details: - At admission: Wide differential. -after 19 days of admission, CT of the brain, MRI of the brain, neuro consult: Essentially, I believe she was using recreational drugs (ketamine rectally), THC that acutely altered her sensorium. I think at a baseline she has severe personality disorder and dementia that is progressing as well as a progressive encephalopathy related to chronic drug use. -she asks for medication for every symptom or diagnosis she knows she has. She is most functional and clear minded when taking schedule doses of Haldol and clonazepam. -01/13/2023 initiated clonazepam 1 mg p.o. b.i.d. and for now continue with p.r.n. lorazepam - 01/17/23 Improving. Pleasant. - 01/18 Mostly pleasant. Remains somewhat confused and unable to do ADLs, executive function and problem solving are significantly impaired. - 01/19 while she has been improving, it appears that she is not yet back at baseline. Hold Ativan, reduce clonazepam. Haldol p.r.n. 01/20 - it appears cutting back on ativan and clonazepam as made a significant improvement. she is calm, more clear, more steady on her feet. MR revealed an old stroke. will do tele-stroke visit 01/21 01/21 - CVA is a not an active contributor to her current clinical presentation/situation. Dementia with new less functional baseline considered the diagnosis and this dementia likely multifactorial related to history of alcohol and drug use, long standing HTN and resultant stroke in longstanding psychiatric diagnoses. This is superimposed with an acute episode on or about 01/08 with additional encephalopathy from drug use. This acute episode has now resolved. 01/26- Patient is likely at baseline for her. No aggressive behaviors. May possibly be able to reside in assisted living facility. Status: Acute (2) CVA (cerebral vascular accident): Problem details: chronic subcortical infarct the right precentral gyrus - not seen on CT at admission. [facility]: ASSESSMENT: # acute obtundation from drug abuse, improved. Now with cognitive impairment (MoCA 10/30), likely dementia. # small, chronic R precentral gyral infarct in the setting of afib. Likely incidental finding, not related to her obtundation, with negligible contribution to her dementia. Status: Acute (3) Atrial fibrillation with rapid ventricular response: Problem details: - Historically has had paroxysmal atrial fibrillation for number of years. Initially treated with rate control using metoprolol and anticoagulation. My understanding of her medical records is that an attempt was made at pharmacologic cardioversion utilizing amiodarone at 1 time. That was unsucce ssful. She was started on sotalol. Last time she was seen by her director intelligence analysis programs was in March of 2021. Has not had follow-up since then. - Presented to our hospital on sotalol with AFib RVR. Rhythm has not changed entire time she has been in the hospital. I made the decision to stop the antiarhythmic and focus on rate control only utilizing metoprolol, diltiazem, and digoxin. Continues with warfarin anticoagulation with daily INRs. - Rate control variable, elevated last evening. Continue current regimen for rate control. I do not think she would tolerate coming off digoxin. Check level on Mon or . 01/24: INR subtherapeutic; warfarin was on hold last dose 01/21; will resume at higher dose 5mg daily Status: Acute (4) Polypharmacy: Problem details: This will warrant ongoing supportive management efforts Status: Acute (5) Diabetes mellitus: Problem details: - A1C 7.4 on 10/22/22 - continue home medications with SSI. - 01/17 increased SSI - 01/18 glucose adequate control now. Status: Acute (6) Bipolar disorder: Problem details: Obviously, this too can be driving her altered mental status state. we held antipsychotic secondary to her sotalol dose; now sotalol is off and rate control is achieved. Scheduled clonazepam and Haldol cautious use of benzos; the reduction in clonazepam and discontinuing the Ativan has helped her sensorium. Status: Acute (7) Hypertension: Problem details: - 01/17 DBP remains elevated. Added lisinopril. - 01/18 BP better control today. Monitor. Status: Acute (8) Physical debility: Problem details: For appeared time patient will need help with activities of daily living, safety. Continue with inpatient physical therapy and occupational therapy support. Status: Acute (9) Hypokalemia: Problem details: Continue with potassium supplementation. Monitor magnesium. Status: Resolved (10) Anticoagulant long-term use: Problem details: - on warfarin for afib with lifelong goal of INR 2-3 - high risk patient for anticoagulation given fall risk Status: Acute Plan 1. Reviewed impression with patient, 2. Answered patient's questions to her satisfaction. 3. billet worker continues to work with the staff from the [facility] as well as the [facility] person. 4. Patient agreeable. Time Spent With Patient Total time spent: 25 Subjective Time Seen by Provider: 09:00 Date Seen: 01/27/23 Interval history: Daily Progress Note - Hospital Medicine Day #: 20 (admitted on 01/08) CC: AMS, OD, AFIB RVR Subjectively the patient indicates she is feeling well. When I cared for her earlier in the course of her hospitalization she was not as readily interactive as she presently is. She states she is feeling well and doing well. She indicates she is anxious to return to her home at the [facility]. Our hospital social studies department chair indicates that staff from the [facility] will perform an assessment of the patient here in the hospital to determine if they can accept her back to their facility and provider her with a similar level of support as they did previously, including med passing. I also indicated to the patient that if they do ultimately decide to allow her to return that she will need to not use any street drugs or any other drugs in a non-prescribed fashion while living there. Denies chest heaviness, pressure, tightness, or pain. Denies dyspnea at rest, paroxysmal nocturnal dyspnea, orthopnea. Tolerating increased activities with use of her walker in the hallway. Eating and drinking without difficulties. Denies nausea or vomiting or abdominal pain. States bowel and bladder function are satisfactory. Brain MRI Impression: 1. No acute/subacute infarct. 2. 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 3. Minimal chronic ischemic microvascular disease. DAY OF ADMISSION NOTE: Brandee Brown is a 62 year old female who presented to the ED this morning by ambulance for AMS. Patient unable to provide me any history; I did discuss the case with interim director at [facility], where patient lives. On 01/05, patient was found by staff to be more confused and was slurring her words. They were worried that she may have been using alcohol, and called PCP (Dr. Smith) with these concerns. Dr. Smith subsequently stopped her hydromorphone, lorazepam, and Adderall: - last dose of Hydromorphone 01/06 in the morning, was taking 4-6 mg per day - last prn Alprazolam dose 01/04 in the afternoon, was taking 0.5mg once/day for anxiety - last Adderall dose 01/06 in the morning, was taking 20mg daily She continued to have access to Tylenol, Meloxicam, Sertraline, and prn Lidocaine patches for pain. Medications are all administered by [facility] staff. There was some frustration from patient and family regarding the discontinuation of medications, but no known withdrawal symptoms. This morning, family could not get hold of patient and they asked staff at [facility] to let them in her room. She was then found on her bed with drug paraphernalia surrounding her, nonresponsive. EMS transported her to ED. ER Course and Findings: - AFib with RVR on EKG, rate in the 120s - given IV diltiazem 10 mg with improvement - therapeutic INR at 2.9 (on Coumadin for AFib) - hemoglobin 10.1, close to baseline - no acute infectious process on UA, UDS + TCAs, amphetamines, Marijuana Exam Narrative: Exam Narrative: Examined the patient in her hospital room and I observe her ambulating in the hallway with her walker without any assistance from others. Appears comfortable and in no acute distress. Vision and hearing are grossly normal. Alert and oriented to self, place, time, and situation. Friendly cooperative. Mood and affect are congruent. Lungs clear to auscultation. Heart tone and regular rhythm. Abdomen with active bowel sounds, soft, nontender. Independent with transfer and gait with use of walker. Only trace edema pretibially bilaterally. Weight 93.3 kg. Const: Vital Signs, click to edit/add: Vital Signs - 24 hr 01/26/23 19:00 01/27/23 07:00 01/27/23 07:00 Temperature 97.8 F 97.8 F Pulse Rate Pulse Rate [Pulse Oximeter] 93 93 93 Respiratory Rate 18 16 16 Blood Pressure [Le ft Arm] 120/85 115/78 Pulse Oximetry 97 99 Oxygen Delivery Me thod Room Air Room Air Oxygen Flow Rate 0 01/27/23 09:11 Temperature Pulse Rate 93 Pulse Rate [Pulse Oximeter] Respiratory Rate Blood Pressure [Le ft Arm] Pulse Oximetry Oxygen Delivery Me thod Oxygen Flow Rate Documenting provider has reviewed patient's vital signs: yes Labs Labs: Laboratory Results - last 24 hr 01/27/23 05:48 INR 2.46 H VBG pH 7.407 VBG pCO2 48 VBG pO2 48.9 H VBG HCO3 30 H Sodium 137 Potassium 4.4 Chloride 103 Carbon Dioxide 29 Anion Gap 5 L BUN 17 Creatinine 0.4 L Estimated Creat Clear 45.54 Estimated GFR 111 Glucose 131 H Calcium 8.8 Total Bilirubin 0.4 Direct Bilirubin 0.1 AST 53 H ALT 60 H Alkaline Phosphatase 80 Total Protein 6.2 Albumin 3.6
--- NOTE | 2023-01-27 15:42 | PC.SOCIAL ---
Social work: Received call from [facility] nurse, Yaritza, stating they have received the faxed information and are considering pt for a bed in their memory care unit due to the MOCA score. workers compensation defense attorney reminded nurse that the recommendation from the hospital team is for pt to return to her assisted living apartment, not memory care. Yaritza states she needs to compete an in person assessment and will come this evening around 6:00 pm to complete it. Faxed additional information with recent OT testing to Yaritza in support of assisted living placement. Called pt's dtr, Autumn who is aware and plans to be at the hospital for the in-person nursing assessment this evening. Provided Autumn with information on the POA for healthcare forms and will leave those forms for her tonight. workers compensation defense attorney to follow up as needed.
[2023-01-27] MEDS: WARFARIN 5 MG TABLET PO (17:01)
--- NOTE | 2023-01-27 19:22 | PC.NURSE ---
Patient pleasant and cooperative. Independent w/4ww. c/o lower back pain w/prn medication for relief. Patient c/o itching in legs prn Benedryl administered.
[2023-01-27 20:47] VITALS: BP 99/67; PULSE 95; RESP 20; TEMP 36.4; O2SAT 97
[2023-01-28] MEDS: ACETAMINOPHEN 500 MG TABLET 1000 MG PO ×3 (04:23→21:12)
[2023-01-28] MEDS: HYDROmorphone 2 MG TABLET PO ×4 (04:58→23:32)
[2023-01-28] MEDS: OMEPRAZOLE 20 MG CAPSULE DR PO (04:58)
--- NOTE | 2023-01-28 06:03 | PC.NURSE ---
[id number]: Patient cooperative with cares. Takes PO Dilaudid PRN for chronic lower back pain. Appeared to rest well during noc.
[2023-01-28 06:52] LABS: HCO3 VBG 30 mmol/L (21-28); PCO2 VBG 51 mmHG (40-50); PO2 VBG 42.3 mmHG (25-47); pH VBG 7.373 (7.32-7.43)
[2023-01-28 07:11] LABS: Prothrombin Time 38.3 Seconds
[2023-01-28 07:24] LABS: Chloride* 102 mmol/L (96-114); Sodium* 140 mmol/L (135-149)
[2023-01-28 07:25] LABS: Potassium* 4.2 mmol/L (3.6-5.1)
[2023-01-28 07:27] LABS: Anion Gap 7 mEq/L (7-15); Carbon Dioxide* 31 mmol/L (20-32); Creatinine* 0.4 mg/dL (0.5-1.5); Est. Creatinine Clearance* 45.54; Estimated Glomerular Filt Rate 111 ml/min
[2023-01-28 07:28] VITALS: BP 107/67; PULSE 81; RESP 16; TEMP 36.4; O2SAT 97
[2023-01-28 07:28] LABS: Blood Urea Nitrogen* 16 mg/dL (7-30); Calcium* 8.6 mg/dL (8.4-10.6); Glucose* 126 mg/dL (60-115)
[2023-01-28] MEDS: ATORVASTATIN CALCIUM 40 MG TABLET PO (08:02)
[2023-01-28] MEDS: clonazePAM 0.5 MG TABLET PO ×2 (08:02→20:31)
[2023-01-28 08:03] VITALS: PULSE 81
[2023-01-28] MEDS: METOPROLOL SUCCINATE (XL) 100 MG TAB PO ×2 (08:03→20:32)
[2023-01-28] MEDS: METFORMIN 500 MG TABLET PO ×2 (08:03→20:32)
[2023-01-28] MEDS: DIGOXIN 125 MCG TABLET PO (08:03)
[2023-01-28] MEDS: lisinopriL 10 MG TABLET PO (08:03)
[2023-01-28] MEDS: TORSEMIDE 20 MG TABLET PO ×2 (08:04→08:05)
[2023-01-28] MEDS: SERTRALINE 100 MG TABLET 200 MG PO (08:04)
[2023-01-28] MEDS: SENNOSIDES 1 TAB TABLET 2 TAB PO ×2 (08:04→20:32)
[2023-01-28] MEDS: polyethylene glycoL 3350 17 GM PACK PO (08:04)
[2023-01-28] MEDS: TORSEMIDE 5 MG TABLET PO (08:05)
[2023-01-28] MEDS: haloperidoL 1 MG TABLET 0.5 MG PO ×2 (08:06→20:31)
[2023-01-28] MEDS: CLOTRIMAZOLE 1 % CREAM 1 APPLIC TOPICAL ×2 (08:07→20:30)
--- NOTE | 2023-01-28 10:06 | PC.SOCIAL ---
Addendum entered by Maryse Mensah MEDICAL RECORD TRANSCRIBER 01/29/23 09:03: Called back and cancelled request for call from on-call [facility] has agreed to accept pt back to her assisted living apartment which is what she wishes. Original Note: Discharge planning: Called [facility], Carroll Sam, . Carroll's voicemail states he is on vacation until 02/03/23 and directed callers to contact the [facility] office and request the [facility] action finisher if needed at [phone]. Called the main office and requested call back from on-call [facility]. family service worker to follow up as needed.
--- NOTE | 2023-01-28 10:17 | PC.NURSE ---
Yaritza from [facility] here for assessment.
--- NOTE | 2023-01-28 11:18 | PC.NURSE ---
[facility] were here to assess patient. Patient was requesting to have her daughter on the phone while they were conducting their interview. I called Chian and unfortunately she was just starting a class and could not be available by phone. She asked if Brandee could record the conversation on her cell phone. I told China I would try and help Barndee with this otherwise I would stand by her behalf while they conducted their interview. Nurse Vigil asked her different questions and Brandee provided her answers. After the list of questions were asked Nurse Vigil then discussed with Brandee about what services she feels she would need. Brandee agreed to med management. Also Nurse Vigil has spoken with Dr. Smith who was the patient's primary care physician prior to her hospitalization and has agreed to continue to see Brandee. The conclusion was that Brandee will return to her assisted living apartment tomorrow with a tentative discharge time of 10 am. Also [facility] is requesting discharge orders be sent today so that they can get things arranged with patient's spring encaser Shanika.
--- NOTE | 2023-01-28 13:48 | PC.NURSE ---
End of shift note: Patient has been up independently in room. Taking pills whole with pudding. Has chronic pain and takes Dilaudid PO PRN and Tylenol PO PRN. Voiding, had a large BM today. Tolerating a regular diet. Ambulating independently with walker. Pleasant and cooperative. Did not want to shower today. VSS, lung sounds clear, active bowel sounds. Had assessment by the [facility] today and will return tomorrow with family transporting.
--- NOTE | 2023-01-28 14:05 | PC.NURSE ---
Pt requesting something for restless legs. PRN qHS ropinirole is ordered but it is 1400. MD notified and will look into options.
--- NOTE | 2023-01-28 15:08 | PM.IMPN1 ---
Progress Note: A&P Assessment and plan (1) Altered mental status: Problem details: - At admission: Wide differential. -after 19 days of admission, CT of the brain, MRI of the brain, neuro consult: Essentially, I believe she was using recreational drugs (ketamine rectally), THC that acutely altered her sensorium. I think at a baseline she has severe personality disorder and dementia that is progressing as well as a progressive encephalopathy related to chronic drug use. -she asks for medication for every symptom or diagnosis she knows she has. She is most functional and clear minded when taking schedule doses of Haldol and clonazepam. -01/13/2023 initiated clonazepam 1 mg p.o. b.i.d. and for now continue with p.r.n. lorazepam - 01/17/23 Improving. Pleasant. - 01/18 Mostly pleasant. Remains somewhat confused and unable to do ADLs, executive function and problem solving are significantly impaired. - 01/19 while she has been improving, it appears that she is not yet back at baseline. Hold Ativan, reduce clonazepam. Haldol p.r.n. 01/20 - it appears cutting back on ativan and clonazepam as made a significant improvement. she is calm, more clear, more steady on her feet. MR revealed an old stroke. will do tele-stroke visit 01/21 01/21 - CVA is a not an active contributor to her current clinical presentation/situation. Dementia with new less functional baseline considered the diagnosis and this dementia likely multifactorial related to history of alcohol and drug use, long standing HTN and resultant stroke in longstanding psychiatric diagnoses. This is superimposed with an acute episode on or about 01/08 with additional encephalopathy from drug use. This acute episode has now resolved. 01/26- Patient is likely at baseline for her. No aggressive behaviors. May possibly be able to reside in assisted living facility. Status: Acute (2) CVA (cerebral vascular accident): Problem details: chronic subcortical infarct the right precentral gyrus - not seen on CT at admission. [facility]: ASSESSMENT: # acute obtundation from drug abuse, improved. Initially had residual cognitive impairment (MoCA 10/30). Later had additional testing and although mildly abnormal was deemed quite sufficient for her to be able to reside in an assisted living facility with support. # small, chronic R precentral gyral infarct in the setting of a fib. Likely incidental finding, not related to her obtundation, with negligible contribution to her dementia. Status: Acute (3) Atrial fibrillation with rapid ventricular response: Problem details: - Historically has had paroxysmal atrial fibrillation for number of years. Initially treated with rate control using metoprolol and anticoagulation. My understanding of her medical records is that an attempt was made at pharmacologic cardioversion utilizing amiodarone at 1 time. That was unsuccessful. She was started on sotalol. 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 Has not had follow-up since then. - Presented to our hospital on sotalol with AFib RVR. Rhythm has not changed entire time she has been in the hospital. I made the decision to stop the antiarhythmic and focus on rate control only utilizing metoprolol, diltiazem, and digoxin. Continues with warfarin anticoagulation with daily INRs. - Rate control variable, elevated last evening. Continue current regimen for rate control. I do not think she would tolerate coming off digoxin. Check level on Thu or . 01/24: INR subtherapeutic; warfarin was on hold last dose 01/21; will resume at higher dose 5mg daily Status: Acute (4) Polypharmacy: Problem details: Discontinued multiple medications at time of admission. Will be discharged from hospital and not restart multiple medications that she has not required while in the hospital. Status: Acute (5) Diabetes mellitus: Problem details: - A1C 7.4 on 10/22/22 - continue home medications with SSI. - 01/17 increased SSI - 01/18 glucose adequate control now. Status: Acute (6) Bipolar disorder: Problem details: Obviously, this too can be driving her altered mental status state. we held antipsychotic secondary to her sotalol dose; now sotalol is off and rate control is achieved. Scheduled clonazepam and Haldol cautious use of benzos; the reduction in clonazepam and discontinuing the Ativan has helped her sensorium. Status: Acute (7) Hypertension: Problem details: - 01/17 DBP remains elevated. Added lisinopril. - 01/18 BP better control today. Monitor. Status: Acute (8) Physical debility: Problem details: Initially required inpatient physical therapy and occupational therapy support. After roughly 2 weeks she no longer required there daily support. Status: Acute (9) Hypokalemia: Problem details: Resolved with supplementation of potassium and magnesium. Status: Resolved (10) Anticoagulant long-term use: Problem details: - on warfarin for afib with lifelong goal of INR 2-3 - will require ongoing monitoring of INR and adjustment of warfarin. Status: Acute Plan 1. If [facility] accepts her back, it is possible she might be able to return back to the [facility] with supportive services as early as tomorrow or the following day. 2. Continue with supportive efforts. 3. Answered patient's questions are satisfaction. Time Spent With Patient Total time spent: 40 minutes Subjective Time Seen by Provider: 09:00 Date Seen: 01/28/23 Interval history: Daily Progress Note - Hospital Medicine #: [id number] (admitted on 01/08) CC: AMS, OD, AFIB RVR Subjectively the patient indicates she is feeling well. When I cared for her earlier in the course of her hospitalization she was not as readily interactive as she presently is. She states she is feeling well and doing well. She indicates she is anxious to return to her home at the [facility]. She will have the staff from the [facility] assess her today to possibly readmit to their assisted living setting if they think they could meet her healthcare needs. I again indicated to the patient that if they do ultimately decide to allow her to return that she will need to not use any street drugs or any other drugs in a non-prescribed fashion while living there. Denies chest heaviness, pressure, tightness, or pain. Denies dyspnea at rest, paroxysmal nocturnal dyspnea, orthopnea. Tolerating increased activities with use of her walker in the hallway. Eating and drinking without difficulties. Denies nausea or vomiting or abdominal pain. States bowel and bladder function are satisfactory. Patient often seeks medications to address various concerns. Today she notes she has restless legs and does not think to get up and walk but asked for medications. We try to redirect her. Brain MRI Impression: 1. No acute/subacute infarct. 2. 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 3. Minimal chronic ischemic microvascular disease. DAY OF ADMISSION NOTE: Brandee Brown is a 62 year old female who presented to the ED this morning by ambulance for AMS. Patient unable to provide me any history; I did discuss the case with interim director at [facility], where patient lives. On 01/05, patient was found by staff to be more confused and was slurring her words. They were worried that she may have been using alcohol, and called PCP (Dr. Smith) with these concerns. Dr. Smith subsequently stopped her hydromorphone, lorazepam, and Adderall: - last dose of Hydromorphone 01/06 in the morning, was taking 4-6 mg per day - last prn Alprazolam dose 01/04 in the afternoon, was taking 0.5mg once/day for anxiety - last Adderall dose 01/06 in the morning, was taking 20mg daily She continued to have access to Tylenol, Meloxicam, Sertraline, and prn Lidocaine patches for pain. Medications are all administered by [facility] staff. There was some frustration from patient and family regarding the discontinuation of medications, but no known withdrawal symptoms. This morning, family could not get hold of patient and they asked staff at [facility] to let them in her room. She was then found on her bed with drug paraphernalia surrounding her, nonresponsive. EMS transported her to ED. ER Course and Findings: - AFib with RVR on EKG, rate in the 120s - given IV diltiazem 10 mg with improvement - therapeutic INR at 2.9 (on Coumadin for AFib) - hemoglobin 10.1, close to baseline - no acute infectious process on UA, UDS + TCAs, amphetamines, Marijuana Exam Narrative: Exam Narrative: I evaluate her in her room and in the hallway. Appears comfortable no acute distress. Vision and hearing are grossly normal. Alert and oriented to self, place, time, situation. Friendly, articulate, cooperative. Continues to have difficulty with problem solving and judgment, often looking for medications to address concerns instead of other means. For instance she indicated she felt her legs were restless and wanted we can give her medications instead of getting up and trying to walk. Does accept our advice after we listen to her and assure her and give her the advice. Lungs clear to auscultation. Heart tones with regular rhythm. Abdomen benign. Independent transfer, station, and gait, with her roller walker. Const: Vital Signs, click to edit/add: Vital Signs - 24 hr 01/27/23 20:47 01/28/23 07:28 01/28/23 08:03 Temperature 97.6 F 97.6 F Pulse Rate 81 Pulse Rate [Pulse Oximeter] 95 81 Respiratory Rate 20 16 Blood Pressure [Le ft Arm] 107/67 Blood Pressure [Ri ght Arm] 99/67 Pulse Oximetry 97 97 Oxygen Delivery Me thod Room Air Room Air Documenting provider has reviewed patient's vital signs: yes Labs Labs: Laboratory Results - last 24 hr 01/28/23 05:51 INR 3.70 H VBG pH 7.373 VBG pCO2 51 H VBG pO2 42.3 VBG HCO3 30 H Sodium 140 Potassium 4.2 Chloride 102 Carbon Dioxide 31 Anion Gap 7 BUN 16 Creatinine 0.4 L Estimated Creat Clear 45.54 Estimated GFR 111 Glucose 126 H Calcium 8.6
[2023-01-28 17:03] VITALS: BP 120/96; PULSE 107; RESP 16; TEMP 36.4; O2SAT 98
--- NOTE | 2023-01-28 20:00 | PC.NURSE ---
Sent forms for Crystal to fill out and green vape pen home with granddaughter Odette @ 1999.
[2023-01-28] MEDS: ROPINIROLE HCL 0.25 MG TABLET 0.5 MG PO (20:44)
[2023-01-28 21:10] VITALS: BP 113/79; PULSE 89; RESP 16; TEMP 36.4; O2SAT 98
--- NOTE | 2023-01-28 22:31 | PC.NURSE ---
End of Shift: Patient pleasant and cooperative. Patient vitally stable, lungs clear, BS WNL, NO IV. Patient rates back and ankle pain 7-8/10, tylenol and dilauded given when due. Patient had 1 small BM. Patient tolerating regular diet and urinating. Patient independent in room and walking the halls.
[2023-01-29] MEDS: diphenhydrAMINE 25 MG CAPSULE PO (02:59)
[2023-01-29] MEDS: OMEPRAZOLE 20 MG CAPSULE DR PO (05:57)
[2023-01-29] MEDS: HYDROmorphone 2 MG TABLET PO (05:57)
--- NOTE | 2023-01-29 06:21 | PC.NURSE ---
Pain reported to low back, patient utilizing prn diluadid Q6H and prn tylenol. Brandee becomes agitated when she asks for a dilaudid but is unable to have one due to the timing, patient asked at 0250 and show card writer reminded patient it was available next at 0530. Patient will raise voice and states that's just the stupidest thing, I should be able to have it if I need it. Why don't you bring it at 0530 then and then I will call a taxi to take me home, I am not waiting for another one after that. Document Management Consultant offered relaxation techniques or repositioning for comfort. Ambulates independently with walker. Patient verbalizing happiness over being able to go back to [facility].
[2023-01-29 07:00] VITALS: BP 131/95; PULSE 92; RESP 18; TEMP 36.6; O2SAT 100
[2023-01-29 07:05] LABS: Chloride* 100 mmol/L (96-114); Potassium* 4.3 mmol/L (3.6-5.1); Sodium* 140 mmol/L (135-149)
[2023-01-29 07:06] LABS: INR 2.58 (0.91-1.10)
[2023-01-29 07:08] LABS: Anion Gap 9 mEq/L (7-15); Blood Urea Nitrogen* 15 mg/dL (7-30); Carbon Dioxide* 31 mmol/L (20-32); Creatinine* 0.5 mg/dL (0.5-1.5); Est. Creatinine Clearance* 45.54; Estimated Glomerular Filt Rate 105 ml/min
[2023-01-29 07:09] LABS: Calcium* 9.8 mg/dL (8.4-10.6); Glucose* 128 mg/dL (60-115); HCO3 VBG 31 mmol/L (21-28); PCO2 VBG 53 mmHG (40-50); PO2 VBG 20.1 mmHG (25-47)
[2023-01-29] MEDS: TORSEMIDE 5 MG TABLET PO (08:46)
[2023-01-29] MEDS: ATORVASTATIN CALCIUM 40 MG TABLET PO (08:46)
[2023-01-29 08:48] VITALS: PULSE 91
[2023-01-29] MEDS: METOPROLOL SUCCINATE (XL) 100 MG TAB PO (08:48)
[2023-01-29] MEDS: METFORMIN 500 MG TABLET PO (08:48)
[2023-01-29] MEDS: DIGOXIN 125 MCG TABLET PO (08:48)
[2023-01-29] MEDS: clonazePAM 0.5 MG TABLET PO (08:49)
[2023-01-29] MEDS: lisinopriL 10 MG TABLET PO (08:49)
[2023-01-29] MEDS: SERTRALINE 100 MG TABLET 200 MG PO (08:49)
[2023-01-29] MEDS: SENNOSIDES 1 TAB TABLET 2 TAB PO (08:49)
[2023-01-29] MEDS: TORSEMIDE 20 MG TABLET PO (08:50)
--- NOTE | 2023-01-29 09:36 | PC.NURSE ---
Have attempted to call the [facility] to verified they did receive the faxed orders we sent yesterday and to let them know that she is being picked up by her granddaughter at 10 am.
--- NOTE | 2023-01-29 10:06 | PC.NURSE ---
Received a call from Nurse Vigil from the [facility] they have received the fax both times that we have sent it. And they will be awaiting her arrival.
--- NOTE | 2023-01-29 10:37 | PC.NURSE ---
Pt UAL, assisted with packing up her belongings. Eval by Dr. Munoz. Please see eMar for medications provided. No dysphagia with meds. Adequate I and O. Pt discharged via w/c back to her apartment @ [facility] with her dtr as transportation @ 1015 with all her personal belongings. Marianne rossi RN notifed [facility] via phone that patient will be returning to their facility later today.
--- NOTE | 2023-01-29 11:54 | PM.DS1 ---
DS: Providers Provider Time Seen by Provider: 08:00 Date Seen: 01/29/23 Date of admission: 01/08/23 13:14 Primary care physician: Aleksey Smith MD Admitting Clinician: Val Teran MD Consults: 01/08/23 12:16 Consult to Nutrition [CONS] Routine Comment: Reason for consult:: Miscellaneous Comment: h/o gastric bypass, anemia, poor nutrition Consult to Physical Therapy [CONS] Routine Comment: Reason(s) for PT Consult:: Evaluate and Treat Any Restrictions?:: No Restrictions Comment: start 01/09 please 01/08/23 12:17 Consult to Occupational Therapy [CONS] Routine Comment: Reason(s) for OT Consult:: Evaluate and Treat Any Restrictions?:: No Restrictions Comment: start 01/09 please 01/14/23 08:26 Consult to Speech Therapy [CONS] Routine Comment: Reason(s) for Speech Consult:: Swallowing Difficulty Comment: Bedside swallowing evaluation Attending Physician on discharge: Wayne Munoz MD Date of Discharge: 01/29/23 DS: Diagnosis Discharge Diagnosis (1) Altered mental status: Status: Acute Problem details: - At admission: Wide differential. -after 19 days of admission, CT of the brain, MRI of the brain, neuro consult: Essentially, I believe she was using recreational drugs (ketamine rectally), THC that acutely altered her sensorium. I think at a baseline she has severe personality disorder and dementia that is progressing as well as a progressive encephalopathy related to chronic drug use. -she asks for medication for every symptom or diagnosis she knows she has. She is most functional and clear minded when taking schedule doses of Haldol and clonazepam. -01/13/2023 initiated clonazepam 1 mg p.o. b.i.d. and for now continue with p.r.n. lorazepam - 01/17/23 Improving. Pleasant. - 01/18 Mostly pleasant. Remains somewhat confused and unable to do ADLs, executive function and problem solving are significantly impaired. - 01/19 while she has been improving, it appears that she is not yet back at baseline. Hold Ativan, reduce clonazepam. Haldol p.r.n. 01/20 - it appears cutting back on ativan and clonazepam as made a significant improvement. she is calm, more clear, more steady on her feet. MR revealed an old stroke. will do tele-stroke visit 01/21 01/21 - CVA is a not an active contributor to her current clinical presentation/situation. Dementia with new less functional baseline considered the diagnosis and this dementia likely multifactorial related to history of alcohol and drug use, long standing HTN and resultant stroke in longstanding psychiatric diagnoses. This is superimposed with an acute episode on or about 01/08 with additional encephalopathy from drug use. This acute episode has now resolved. 01/26- Patient is likely at baseline for her. No aggressive behaviors. May possibly be able to reside in assisted living facility. (2) Polypharmacy: Status: Acute Problem details: Discontinued multiple medications at time of admission. Will be discharged from hospital and not restart multiple medications that she has not required while in the hospital. (3) Atrial fibrillation with rapid ventricular response: Status: Acute Problem details: - Historically has had paroxysmal atrial fibrillation for number of years. Initially treated with rate control using metoprolol and anticoagulation. My understanding of her medical records is that an attempt was made at pharmacologic cardioversion utilizing amiodarone at 1 time. That was unsuccessful. She was started on sotalol. 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 Has not had follow-up since then. - Presented to our hospital on sotalol with AFib RVR. Rhythm has not changed entire time she has been in the hospital. I made the decision to stop the antiarhythmic and focus on rate control only utilizing metoprolol, diltiazem, and digoxin. Continues with warfarin anticoagulation with daily INRs. - Rate control variable, elevated last evening. Continue current regimen for rate control. I do not think she would tolerate coming off digoxin. Check level on Thu or . 01/24: INR subtherapeutic; warfarin was on hold last dose 01/21; will resume at higher dose 5mg daily (4) Atrial fibrillation: Status: Acute (5) Anticoagulant long-term use: Status: Acute Problem details: - on warfarin for afib with lifelong goal of INR 2-3 - will require ongoing monitoring of INR and adjustment of warfarin. (6) Physical debility: Status: Acute Problem details: Initially required inpatient physical therapy and occupational therapy support. After roughly 2 weeks she no longer required there daily support. (7) Difficulty swallowing: Status: Acute Problem details: Bedside swallow evaluation demonstrates patient quite able of swallowing liquids and food well. Does not swallow tablets or capsules well, seemingly an aversion. (8) Dehydration: Status: Acute Problem details: Orthostatic. Still not entirely consuming adequately to meet her needs. (9) Hypokalemia: Status: Resolved Problem details: Resolved with supplementation of potassium and magnesium. (10) Abdominal pain: Status: Acute (11) Yeast infection: Status: Acute (12) Microcytic anemia: Status: Acute Problem details: - chronic, likely 2/2 gastric bypass surgery - routine outpatient f/u (13) Fatigue: Status: Acute (14) Chronic back pain: Status: Acute (15) Hypertension: Status: Acute Problem details: - 01/17 DBP remains elevated. Added lisinopril. - 01/18 BP better control today. Monitor. (16) ADHD: Status: Acute (17) Diabetes mellitus: Status: Acute Problem details: - A1C 7.4 on 10/22/22 - continue home medications with SSI. - 01/17 increased SSI - 01/18 glucose adequate control now. (18) Bipolar disorder: Status: Acute Problem details: Obviously, this too can be driving her altered mental status state. we held antipsychotic secondary to her sotalol dose; now sotalol is off and rate control is achieved. Scheduled clonazepam and Haldol cautious use of benzos; the reduction in clonazepam and discontinuing the Ativan has helped her sensorium. (19) Urinary tract infection: Status: Acute Problem details: Proteus. Given her list of allergies, Cipro 250 p.o. b.i.d. for 6 doses. apply antifungal and barrier cream to her buttocks/gluteal fold. (20) GERD (gastroesophageal reflux disease): Status: Acute (21) CVA (cerebral vascular accident): Status: Acute Problem details: chronic subcortical infarct the right precentral gyrus - not seen on CT at admission. [facility]: ASSESSMENT: # acute obtundation from drug abuse, improved. Initially had residual cognitive impairment (MoCA 10/30). Later had additional testing and although mildly abnormal was deemed quite sufficient for her to be able to reside in an assisted living facility with support. # small, chronic R precentral gyral infarct in the setting of a fib. Likely incidental finding, not related to her obtundation, with negligible contribution to her dementia. (22) Insomnia: Status: Acute DS: Summary Hospital Course Hospital Course: HPI: Brandee Brown is a 62 year old female who presented to the ED this morning by ambulance for AMS. Patient unable to provide me any history; I did discuss the case with interim director at [facility], where patient lives. On 01/05, patient was found by staff to be more confused and was slurring her words. They were worried that she may have been using alcohol, and called PCP (Dr. Smith) with these concerns. Dr. Smith subsequently stopped her hydromorphone, lorazepam, and Adderall: - last dose of Hydromorphone 01/06 in the morning, was taking 4-6 mg per day - last prn Alprazolam dose 01/04 in the afternoon, was taking 0.5mg once/day for anxiety - last Adderall dose 01/06 in the morning, was taking 20mg daily She continued to have access to Tylenol, Meloxicam, Sertraline, and prn Lidocaine patches for pain. Medications are all administered by [facility] staff. There was some frustration from patient and family regarding the discontinuation of medications, but no known withdrawal symptoms. This morning, family could not get hold of patient and they asked staff at [facility] to let them in her room. She was then found on her bed with drug paraphernalia surrounding her, nonresponsive. EMS transported her to ED. ER Course and Findings: - AFib with RVR on EKG, rate in the 120s - given IV diltiazem 10 mg with improvement - therapeutic INR at 2.9 (on Coumadin for AFib) - hemoglobin 10.1, close to baseline - no acute infectious process on UA, UDS + TCAs, amphetamines, Marijuana Patient declined head CT in the emergency room. Given AFib with RVR and multiple comorbidities, admitted to the hospital. Several her medications were held are not given throughout the course of hospital stay. Her mentation gradually improved over time. Did require clonazepam on a scheduled basis and p.r.n.. Did require opioid administration on a p.r.n. basis. AFib RVR eventually responded to IV diltiazem, IV metoprolol, and oral digoxin. Over time we were able to transition to oral medications. Initially required immediate acting oral medications because patient was trying to chew all her medicines. In time we were able to transition to longer acting medications. Later where we were able to stop the diltiazem altogether. Throughout this we managed to try to help her remain therapeutically anticoagulated by adjusting her dose of warfarin. Initially she was physically too weak to be able to safely move independently. Physical therapy and Occupational therapy worked with her extensively. Gradually over time she regained her ability to transfer and ambulate more safely with use of walker. As such initially there was of thrust to try to help place her in a fpc facility for transitional care services. However over time her condition normalized. At this juncture alternative placement options were again considered. In time the [facility] accepted the patient back to the assisted living setting that she was in prior to admission to this hospitalization. About 1 week into the hospitalization, Autumn, patient's daughter, informed us that her mom had been misusing a ketamine lotion which had been prescribed to her for pain control. The patient had been administering this to herself rectally. Patient has denied this throughout the hospital stay. We made it very clear to the patient that she is to only use medications or drugs that are prescribed by her physician in a manner consistent with how the medication is prescribed to be used. Patient is agreeable to this. Status at Discharge Functional status at discharge: uses cane/walker Overall status at discharge: patient is back to baseline Time Spent with Patient Time attestation: Total time spent providing and/or coordinating discharge services: Time spent: Greater than 30 minutes Exam Narrative: Exam Narrative: I evaluate her in her room and in the hallway. Appears comfortable no acute distress. Vision and hearing are grossly normal. Alert and oriented to self, place, time, situation. Friendly, articulate, cooperative. Continues to have difficulty with problem solving and judgment, often looking for medications to address concerns instead of other means. For instance she indicated she felt her legs were restless and wanted we can give her medications instead of getting up and trying to walk. Does accept our advice after we listen to her and assure her and give her the advice. Lungs clear to auscultation. Heart tones with regular rhythm. Abdomen benign. Independent transfer, station, and gait, with her roller walker. Const: Vital Signs, click to edit/add: Vital Signs - 24 hr 01/28/23 17:03 01/28/23 21:10 01/29/23 07:00 Temperature 97.5 F L 97.6 F 97.8 F Pulse Rate Pulse Rate [Pulse Oximeter] 107 H 89 92 Respiratory Rate 16 16 18 Blood Pressure [Le ft Arm] 113/79 131/95 H Blood Pressure [Ri ght Arm] 120/96 H Pulse Oximetry 98 98 100 Oxygen Delivery Me thod Room Air Room Air Room Air 01/29/23 08:48 Temperature Pulse Rate 91 Pulse Rate [Pulse Oximeter] Respiratory Rate Blood Pressure [Le ft Arm] Blood Pressure [Ri ght Arm] Pulse Oximetry Oxygen Delivery Me thod Documenting provider has reviewed patient's vital signs: yes DS: Data Data Completed and Pending Labs on day of discharge: Labs from last 24 hours 01/29/23 05:57 INR 2.58 H VBG pH 7.380 VBG pCO2 53 H VBG pO2 20.1 L VBG HCO3 31 H Sodium 140 Potassium 4.3 Chloride 100 Carbon Dioxide 31 Anion Gap 9 BUN 15 Creatinine 0.5 Estimated Creat Clear 45.54 Estimated GFR 105 Glucose 128 H Calcium 9.8 Imaging Chest x-ray: Attestation: I have reviewed the pertinent imaging results. Radiologist's impression: 01/08/2023 Findings/Impression: Cardiomegaly. Mild pulmonary venous congestion. No focal infiltrate, effusion, or pneumothorax. Status post left shoulder arthroplasty. CT scan - head: Radiologist's impression: 01/08/2023 Impression: Moderately limited exam due to motion artifact which may obscure subtle findings along the cerebral convexities. Otherwise, is related and chronic small-vessel disease changes of the brain without acute intracranial abnormality. MRI - head: Radiologist's impression: 01/20/2023 Impression: 1. No acute/subacute infarct. 2. 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 3. Minimal chronic ischemic microvascular disease. Discharge Plan Discharge Disposition: [facility] Date of Admission: 01/08/23 13:14 Attending Provider on Discharge: Wayne Munoz Primary Care Provider: Aleksey Smith Condition: Stable Anticipated Discharge Date/Time: 01/29/23 10:52 Discharge Medications: New sennosides [Senna Lax] 8.6 mg Tablet 8.6 mg PO BID 30 Days Qty: 60 1RF torsemide 20 mg Tablet 20 mg PO DAILY 30 Days Qty: 30 1RF loperamide 2 mg Capsule 2 mg PO Q2H PRN30 Days Qty: 30 0RF polyethylene glycol 3350 [Miralax] 17 gram Powder In Packet 17 g PO DAILY 30 Days Qty: 30 1RF clonazepam 0.5 mg Tablet 0.5 mg PO BID 30 Days Qty: 60 0RF metoprolol succinate 100 mg Tablet Extended Release 24 Hr 100 mg PO BID 30 Days Qty: 60 1RF haloperidol 1 mg Tablet 0.5 mg PO BID 30 Days Qty: 30 1RF ropinirole 0.25 mg Tablet 0.5 mg PO HS PRN (Reason: restless leg) 30 Days Qty: 60 1RF torsemide 5 mg Tablet 5 mg PO DAILY 30 Days Qty: 30 1RF lisinopril 10 mg Tablet 10 mg PO DAILY 30 Days Qty: 30 1RF omeprazole 20 mg Capsule,Delayed Release(Dr/Ec) 20 mg PO DAILY@0700 30 Days Qty: 30 1RF digoxin 125 mcg (0.125 mg) Tablet 125 mcg PO DAILY 30 Days Qty: 30 1RF clotrimazole 1 % Cream 1 applic topical BID 14 Days Qty: 14 1RF glycerin (adult) [Fleet Glycerin (Adult)] Suppository 1 supp VA DAILY PRN (Reason: Abdominal Distention) 30 Days Qty: 12 0RF hydromorphone 2 mg Tablet 2 mg PO Q6H PRN30 Days Qty: 20 0RF gabapentin 300 mg capsule 300 mg PO BID Qty: 60 2RF warfarin 2.5 mg tablet 2.5 mg PO DAILY Qty: 30 2RF Continued loratadine 10 mg tablet 10 mg PO DAILY metformin 500 mg tablet 500 mg PO BID sertraline 100 mg tablet 200 mg PO DAILY atorvastatin 40 mg tablet 40 mg PO HS Emgality Pen 120 mg/mL pen injector 120 mg subcut .MONTHLY Patient Comments: once monthly cyanocobalamin (vitamin B-12) 1,000 mcg/mL solution 1,000 mcg IM .MONTHLY albuterol sulfate 90 mcg/actuation HFA aerosol inhaler 2 puff inhalation Q4H PRN fluticasone propionate 50 mcg/actuation spray,suspension 1 spray intranasal BID azelastine 137 mcg (0.1 %) aerosol,spray 1 spray intranasal BID Patient Comments: [NO ORIGINAL SIG] nystatin 100,000 unit/gram powder 1 applic topical BID PRN ondansetron 4 mg tablet,disintegrating 4 mg PO Q8H PRN ketoconazole 2 % shampoo 1 applic topical .3X/WEEK PRN triamcinolone acetonide 0.1 % cream 1 applic topical BID PRN fluticasone propion-salmeterol [Wixela Inhub] 250-50 mcg/dose blister with device 1 ea inhalation BID hydroxyzine HCl 50 mg tablet 50 mg PO Q6H PRN acetaminophen 500 mg tablet 1,000 mg PO Q8H PRN calcium carbonate 500 mg/5 mL (1,250 mg/5 mL) suspension 500 mg PO DAILY Beano Ultra 800 mg PO TIDWMEAL lidocaine 5 % adhesive patch,medicated 1 patch topical DAILY prazosin 1 mg capsule 1 mg PO HS prazosin 2 mg capsule 2 mg PO HS topiramate 25 mg tablet 50 mg PO HS chlorhexidine gluconate 0.12 % mouthwash 15 ml PO BID Rx Instructions: swish and spit diclofenac sodium 1 % gel 1 ea topical QID PRN ipratropium-albuterol 0.5 mg-3 mg(2.5 mg base)/3 mL solution for nebulization 3 ml INHALATION BID carboxymethylcellulose sodium [Refresh Liquigel] 1 % drops, liquid gel 1 drp ophthalmic (eye) QID PRN naloxone 4 mg/actuation spray,non-aerosol 1 spray INTRANASAL DIRECTED PRN sumatriptan succinate 50 mg tablet 50 mg PO DIRECTED PRN ammonium lactate 12 % lotion 1 applic topical BID PRN Biotene Dry Mouth Oral Rinse Mouthwash 15 ml mucous membrane QID PRN Rx Instructions: swish for 15-30 secs , then spit out; do not swallow Replens Gel 1 ea vaginal Q72H PRN Discontinued cyclobenzaprine 10 mg tablet 10 mg PO TID mupirocin 2 % ointment 1 applic topical BID PRN Rx Instructions: SELF ADMIN torsemide 20 mg tablet 50 mg PO QAM sotalol 120 mg tablet 60 mg PO BID Rx Instructions: half tab BID pantoprazole 40 mg tablet,delayed release (DR/EC) 40 mg PO BID Qty: 90 3RF hydrocortisone 2.5 % ointment 1 applic topical BID PRN Rx Instructions: FOR UP TO 2 WEEKS AT A TIME polyethylene glycol 3350 17 gram/dose powder 17 g PO BID PRN carboxymethylcellulose sodium [Refresh Tears] 0.5 % drops 1 drp ophthalmic (eye) Q2H PRN Patient Comments: [NO ORIGINAL SIG] diphenhydramine HCl [Banophen] 25 mg capsule 25 mg PO Q6H PRN clindamycin phosphate 1 % lotion 1 applic topical BID hydromorphone 2 mg tablet 2 mg PO Q4-6H PRN (Reason: Chronic Pain) Qty: 30 0RF Hold Instructions: Doctor's Order gabapentin 600 mg tablet 600 mg PO BID simethicone [Gas Relief Extra Strength] 125 mg capsule 125 mg PO QID acetylcysteine 600 mg capsule 600 mg PO DAILY sennosides-docusate sodium [Senexon-S] 8.6-50 mg tablet 3 tab-cap PO BID warfarin [Jantoven] 3 mg tablet 3 mg PO DAILY hydrocortisone 2.5 % cream 1 applic topical BID PRN Rx Instructions: for up to 2 weeks at a time clindamycin HCl 300 mg capsule 600 mg PO DIRECTED Rx Instructions: PRIOR TO DENTAL APPT haloperidol 0.5 mg tablet 0.5 mg PO Q6H PRN capsaicin 0.025 % cream 1 applic topical TID PRN magnesium hydroxide [Milk of Magnesia] 400 mg/5 mL suspension 30 ml PO DAILY PRN zolpidem 5 mg tablet 5 mg PO HS Hold Instructions: Doctor's Order alprazolam 0.5 mg tablet 0.5 mg PO BID PRN (Reason: anxiety) Qty: 40 0RF Hold Instructions: Doctor's Order dextroamphetamine-amphetamine [Adderall] 15 mg tablet 15 mg PO QDAY Qty: 30 0RF Hold Instructions: Doctor's Order dextroamphetamine-amphetamine 20 mg capsule,extended release 24hr 1 cap PO QAM Qty: 30 0RF Hold Instructions: Doctor's Order Discharge Orders: Discharge Order (Routine); Ordered 01/29/23 Ordered By: Wayne Munoz Activity Level: Activity as Tolerated and Use Walker Discharge Diet: Diabetic and Heart Healthy (2 gm sodium, low fat) Dysphagia Food: Level 6- Soft & Bite size Follow Up Appointments: [facility] [Outside] (Patient being discharged to [facility].) Aleksey Smith MD [Primary Care Provider] - (5-10 days) Admit to: Assisted Living Discharge Potential: Poor Length of Stay: >90 days Can use facility standing orders?: Yes Code Status: Full Code Oxygen: No Urinary Catheter: No Orders are good >30 days: Yes Signature: Wayne Munoz
--- NOTE | 2023-01-29 13:54 | PC.NURSE ---
Received a call from the [facility] re: patient has not arrived to their facility and they are wondering if she has left. Patient had been picked up at 10:15 this am by her granddaughter Holly. Called daughter China who was going to follow up and find out what is going on.
--- NOTE | 2023-01-29 14:38 | PC.NURSE ---
Received another phone call from Yaritza Shaw from the [facility] stating she received a call from Brandee and that she may not check into the [facility] tonight as she has all the meds she needs for tonight. Yaritza was inquiring what medication that she may have. After checking with the primary nurse Jade only medication sent with patient was her cream and a inhaler.
== END 2023-01-29 10:15 | disposition home or self-care (01) | DRG 896 ==
LOC: ED 10:04 → MEDSURG 11:32
PROVIDERS: Emergency Medicine; Family Medicine; Hospitalist; Internal Medicine; Admitting Provider Family Medicine; Emergency Provider Family Medicine; PCP Internal Medicine; Visit Provider Family Medicine
DX: F13.139 Sedative, hypnotic or anxiolytic abuse with withdrawal, unspecified (principal); G92.8 Other toxic encephalopathy; F03.911 Unspecified dementia, unspecified severity, with agitation; N39.0 Urinary tract infection, site not specified; I48.20 Chronic atrial fibrillation, unspecified; I48.0 Paroxysmal atrial fibrillation; R41.82 Altered mental status, unspecified; F10.10 Alcohol abuse, uncomplicated; F12.10 Cannabis abuse, uncomplicated; Z79.01 Long term (current) use of anticoagulants; E87.6 Hypokalemia; E86.0 Dehydration; R00.0 Tachycardia, unspecified; F15.11 Other stimulant abuse, in remission; I10 Essential (primary) hypertension; B96.4 Proteus (mirabilis) (morganii) as the cause of diseases classified elsewhere; F60.89 Other specific personality disorders; R10.9 Unspecified abdominal pain; B37.9 Candidiasis, unspecified; Z86.73 Personal history of transient ischemic attack (TIA), and cerebral infarction without residual deficits; R94.31 Abnormal electrocardiogram [ECG] [EKG]; G47.00 Insomnia, unspecified; F31.9 Bipolar disorder, unspecified; F90.9 Attention-deficit hyperactivity disorder, unspecified type; R13.10 Dysphagia, unspecified; D50.9 Iron deficiency anemia, unspecified; E11.9 Type 2 diabetes mellitus without complications; Z79.84 Long term (current) use of oral hypoglycemic drugs; G89.29 Other chronic pain; M54.9 Dorsalgia, unspecified; E66.9 Obesity, unspecified; Z68.37 Body mass index [BMI] 37.0-37.9, adult; K21.9 Gastro-esophageal reflux disease without esophagitis
CPT/HCPCS: 36415; 51798; 70450; 70551; 71045; 80048; 80053; 80069; 80076; 80143; 80162; 80179; 80306; 81001; 82077; 82330; 82550; 82803; 82962; 83605; 83690; 83735; 83880; 84100; 84132; 84145; 84443; 84484; 85018; 85025; 85027; 85379; 85610; 86140; 87081; 87086; 87186; 87493; 92610; 93005; 93306; 94761; 97110; 97112; 97116; 97162; 97165; 97530; 97535; 99285; A9270; C9113; J1170; J1200; J1940; J2060; J2310; J3480; J3490; J7030; J7120

== ENCOUNTER 2023-02-03 22:08 | Outpatient (CLI) | payer OTHER, SELFPAY | END 2023-02-03 22:09 | disposition home or self-care (01) | LOC: AMB 02-04 12:29 | PROVIDERS: PCP Internal Medicine; Visit Provider Family Medicine | DX: R10.9 Unspecified abdominal pain (principal) | CPT/HCPCS: A0425; A0427 ==

== ENCOUNTER 2023-02-03 22:45 | Emergency (ER) | payer OTHER, SELFPAY ==
[2023-02-03 22:51] VITALS: BP 101/74; PULSE 110; RESP 20; O2SAT 96; BMI 36.6
--- NOTE | 2023-02-04 00:13 | CRLHL7_ITS ---
For Patients: As a result of the Century Cures Act, medical imaging exams and procedure reports are released immediately into your electronic medical record. You may view this report before your referring provider. If you have questions, please contact your health care provider. INDICATION: Abdominal pain. TECHNIQUE: CT abdomen and pelvis acquired with 98 cc Isovue 370 IV contrast. COMPARISON: 12/17/2022. FINDINGS: Lower chest: Bibasilar atelectasis. Coronary artery calcifications. Liver: Enlarged liver, unchanged. Hypodense lesions in the peripheral left hepatic lobe, unchanged. Gallbladder and bile ducts: Status post cholecystectomy. Spleen: Unremarkable. Normal in size. No masses. Adrenal glands: Unremarkable. No nodules. Pancreas: Unremarkable. No mass or inflammation. Kidneys: Right renal cysts. Left renal cortical scarring. 3 mm nonobstructive calculus in the left inferior pole. No hydronephrosis. GI tract: Postsurgical changes of gastric bypass. No evidence of obstruction. Moderate colonic stool load. Normal appendix. Lymph nodes: No lymphadenopathy. Vasculature: Scattered atherosclerotic calcifications. Omentum/Peritoneum/Abdominal Wall: Postsurgical changes of ventral abdominal wall hernia repair. Right flank generator pack with spinal stimulator leads. No free air or significant free fluid. Pelvis: Status post hysterectomy. Bones: Degenerative changes of the spine. L3-S1 instrumented fusion. Mild grade 1 retrolisthesis L2-L3 with vacuum disc phenomenon, suggestive of adjacent segment disease. IMPRESSION: 1. No acute abdominal or pelvic abnormality. 2. Small left nonobstructive nephrolithiasis. 3. Moderate colonic stool load. Please note that all CT scans at this facility use dose modulation, iterative reconstruction, and/or weight-based dosing when appropriate to reduce radiation dose to as low as reasonably achievable. Dictated by Michel Pennington MD @ 02/04/2023 3:28:44 AM (Electronically Signed)
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
[2023-02-04] MEDS: KETOROLAC 15 MG/ML inj IVP (00:25)
--- OUTSIDE RECORDS SUMMARY | 2023-02-04 00:40 | XMS_ITS | Continuity of Care Document ---
Author Name Unknown Organization [facility] Address [address] [place] [address] Care Team Providers Care Stone Rigger Name Role Phone [facility] Unavailable Unav ailable Procedures Procedure [...] Diagnoses Date Provider Providers Copied on Encounter [facility], [address] [place] [address], [id number], [facility] No Information [facility]. [address] [place], [place], [id number], [place]. tel:[phone] Referring Provider: Michelle Cummings, [address] [place], [address]. tel:[phone] [facility], [address] [place], [place], [id number], [facility] No Information [facility]. [address] [facility] [place], [place], [id number], [place]. tel:[phone] Referring Provider: Too Del Cid, [address] [place], [address]. tel:[phone] [facility] [place], [address] [place], [place], [id number], [place] [facility] [place] No Information [facility]. [address] [place], [place], [id number], . tel:[phone] Referring Provider: Michelle Cummings, [address] [place], [address]. tel:[phone] Family History Family Member Type Diagnosis Age At Onset No Information Payers Payer name Insurance type Covered constitution party ID Authoriza tion(s) No Information Social [...]
--- OUTSIDE RECORDS SUMMARY | 2023-02-04 00:40 | XMS_ITS | Continuity of Care Document ---
Author Name Unknown Organization [facility] Address [address] [place] [id number] Care Team Providers Care Batter Out Name Role Phone Simba Lowry CRNA Unavailable Unavailable Procedures Procedure Date ANESTH, HEAD/NECK/PTRUNK ANESTH PERC IMG TX SP PROC Advance Directives Directive Yes / No Effective Date File Name No Information Encounters Encounter Description Practice Location Reason(s) For Visit Diagnoses Date Provider Providers Copied on Encounter [facility], [address] [place] [address], [id number], [facility] No Information Alen Cottrell. [address] [place] [address], [id number], . tel:[phone] Referring Provider: Michelle Cummings, [address] [place] [address], [address] . tel:[phone] [facility], [address] [place] [address], [id number], [facility] No Information Asad Ramirez. [address] [facility] [address], [place], [place], [id number], . tel:[phone] Referring Provider: Too Del Cid, [address] [place], [address] . tel:[phone] Family History Family Member Type Diagnosis Age [...]
--- OUTSIDE RECORDS SUMMARY | 2023-02-04 00:40 | XMS_ITS | Continuity of Care Document ---
Author Name Unknown Organization [facility] Address [address] [place] [address] Phone Care Team Providers Care Foundation Coordinator Name Role Phone Odalys BOLES, Homar Unavailable [...] C, [address], [place], [id number], [place] tel:[phone] [facility] No Information 8 Odalys Graf. [facility], [address] [place] [address] [address], [place], [place], [id number] , [place]. tel:[phone] [facility], [address], [place], [id number], [place] tel:[phone] [facility] No Information 8 Odalys Graf. [facility], [address] [place] [address] [address], [place], [place], [id number] , [place]. tel:[phone] [facility], [address], [place], [id number], [place] tel:[phone] [facility] No Information 8 Rodrick Pop. [facility], [address] [place] [address] [address], [place], [id number] , [place]. tel:[phone] Referring Provider: Homar Morrow, [facility] [address] [place] [address] [address], [place], [address] . tel:[phone] [facility], [address], [place], [id number], [place] tel:[phone] [facility] No Information 6 8 Odalys Graf. [facility], [address], [place], [place], [id number] , [place]. [phone] Referring Provider: Homar Morrow, [facility] [address], [place], [address] . tel:[phone] Office/Outpat ient Visit,Est, Mod [facility], [address], [place], [id number], [place] tel:[phone] [facility] Spinal stenosis, lumbar region 5 7 Odalys Graf. [facility], [address], [place], [place], [id number] , [place]. [phone] Referring Provider: Homar Morrow, [facility] [address], [place], [address] . tel:[phone] [facility], [address], [place], [id number], [place] tel:[phone] [facility] Spinal stenosis, lumbar region 0-201 6 Odalys Graf. [facility], [address], [place], [id number] , [place]. [phone] Referring Provider: Homar Morrow, [facility] [address], [place], [address] . tel:[phone] [facility], [address], [place], [id number], [place] tel:[phone] [facility] Arthrodesis status 1-201 6 Odalys Graf. [facility], [address], [place], [id number] , [place]. [phone] [facility], [address], [place], [id number], [place] tel:[phone] [facility] No Information Sep-2 6 Odalys Rowlandin. [facility], [address], [place], [id number] , [place]. tel:[phone] Referring Provider: Homar Morrow, [facility] [address], [place], [address] . tel:[phone] Family History Family Member Type Diagnosis Age At Onset No Information Payers Payer name Insurance type Covered libertarian ID Authoreneida aaron(s) Medicare [id number] Social History Type Description Quantity Date Captured [...]
--- OUTSIDE RECORDS SUMMARY | 2023-02-04 00:41 | XMS_ITS | Continuity of Care Document ---
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 Name Role Phone Dionte Granados Unavailable Unavailable [...] eval q3mo opiod tx SCS Post Op [place] No Charge For Visit Per Prov IMPLANT [...] OFFICE VISIT, EST TELEMEDICINE 20 OFFICE VISIT, [facility] TELEMEDICINE 20 Foll-up eval q3mo opiod tx OFFICE/OUTPATIENT VISIT, EST Drug Urine Toxology With Chromatography SCS Trial Procedure Ordered INJ TRIGGER POINT, 1/2 MUSCL OFFICE/OUTPATIENT VISIT, NEW Advance Directives Directive Yes / No Effective Date File Name No Information Encounters Encounter Description Practice Location Reason(s) For Visit Diagnoses Date Provider Providers Copied on Encounter OFFICE VISIT, [facility], [address] [place], [place], [id number] , [place] tel:[phone] [facility] [place] Widespread pain (chief complaint) Pain in right kneePain in left ankle and joints of left footRadiculopa thy, lumbar regionMyalgia, other sitePostlamine ctomy syndrome, not elsewhere classifiedLong term (current) use of opiate analgesic [address], [place], [place], [id number] , [place]. tel:[phone] anticoagulant prescriber: Aleksey Smith [address], [address]. tel:[phone] Provider: Too Del Cid, [address] [place], [address]. tel:[phone] OFFICE VISIT, [facility], [address], [place], [id number] , [place] tel:[phone] [facility] Widespread pain (chief complaint) Postlaminectom y syndrome, not elsewhere classifiedRadi culopathy, lumbar regionMyalgia, other sitePain in left ankle and joints of left footPain in right kneeLong term (current) use of opiate analgesic 3 Shay Morales. [address], [place], [id number] , [place]. tel:[phone] anticoagulant prescriber: Aleksey Smith [address] [place], [address]. tel:[phone] [facility], [address] [place] [address], [id number] , [place] tel:[phone] [facility] Epsom pain (chief complaint) Postlaminectom y syndrome, not elsewhere classified 2 Indu Dalal. [address] [place], [place], [id number] , [place]. tel:[phone] Psych Dx Eval [facility], [address] [place] [address], [id number] , [place] tel:[phone] Telehealth Pain disorder with related psychological factorsPost-tr aumatic stress disorder, unspecified 2 Tess Cristiano Peg. [address] [place] [address], [id number] , [place]. tel:[phone] Referring Provider: Too Del Cid, [address] [place] [address], [address]. tel:[phone] Psych Dx Eval [facility], [address] [place] [address], [id number] , [place] tel:[phone] Telehealth Pain disorder with related psychological factorsAnxiety disorder 2 Tess Cristiano Peg. [address] [place] [address], [id number] , [place]. tel:[phone] OFFICE/OUTPAT IENT VISIT, [facility], [address] [place] [address], [id number] , [place] tel:[phone] [facility] [place] Widespread pain (chief complaint) Pain in right hipPain in right kneePain in left ankle and joints of left footRadiculopa thy, lumbar regionPostlami nectomy syndrome, not elsewhere classifiedLong term (current) use of opiate analgesicMyalg ia, other site 2 Heriberto Gage. [address] [place] [address], [id number] , [place]. tel:[phone] anticoagulant prescriber: Aleksey Smith, [address], [address]. tel:[phone] Provider: Too Del Cid, [address] [place] [address], [address]. tel:[phone] OFFICE VISIT, EST TELEMEDICINE [facility], [address] [place] [address], [id number] , [place] tel:[phone] [facility] Back Pain (chief complaint) Pain in right kneePain in left ankle and joints of left footRadiculopa thy, lumbar regionMyalgia, other sitePostlamine ctomy syndrome, not elsewhere classifiedLong term (current) use of opiate analgesicPain in right hip 2 Mayra Rapp. [address] [place] [address] Rd [address], [place], [place], [id number] , [place]. tel:[phone] anticoagulant prescriber: Aleksey Smith, [address], [address]. tel:[phone] OFFICE VISIT, EST TELEMEDICINE [facility], [address] [place] [address], [id number] , [place] tel:[phone] [facility] Back Pain (chief complaint) Pain in right kneePain in left ankle and joints of left footRadiculopa thy, lumbar regionMyalgia, other sitePostlamine ctomy syndrome, not elsewhere classifiedLong term (current) use of opiate analgesic 2 Nunez Dionte. [address] [place] [address] [address], [place], [place], [id number] , [place]. tel:[phone] anticoagulant prescriber: Aleksey Smith [address], [address]. tel:[phone] OFFICE VISIT, EST TELEMEDICINE [facility], [address] [place] [address], [id number] , [place] tel:[phone] [facility] Back Pain (chief complaint) Pain in right kneePain in left ankle and joints of left footRadiculopa thy, lumbar regionMyalgia, other sitePostlamine ctomy syndrome, not elsewhere classifiedLong term (current) use of opiate analgesic 2 Mayra Rapp. [address] [place] [address] [address], [place], [id number] , [place]. tel:[phone] Referring Provider: Too Del Cid, [address] [place] [address], [address]. tel:[phone] OFFICE/OUTPAT IENT VISIT, [facility], [address] [place] [address], [id number] , [place] tel:[phone] [facility] Back Pain (chief complaint) Pain in right kneePain in right ankle and joints of right footPain in left ankle and joints of left footRadiculopa thy, lumbar regionMyalgia, other sitePostlamine ctomy syndrome, not elsewhere classifiedLong term (current) use of opiate analgesic 2 [place]ra Rapp. [address] [place] [address] [address], [place], [id number] , [place]. [phone] Referring Provider: Too Del Cid, [address] [place] [address], [address]. tel:[phone] [facility], [address] [place] [address], [id number] , [place] tel:[phone] [facility] No Information 2 Will Too. [address] [place] [address], [id number] , [place]. [phone] OFFICE/OUTPAT IENT VISIT, [facility], [address] [place] [address], [id number] , [place] tel:[phone] [facility] Back Pain (chief complaint) Pain in right shoulderPain in right kneePain in right ankle and joints of right footPain in left ankle and joints of left footRadiculopa thy, lumbar regionMyalgia, other sitePostlamine ctomy syndrome, not elsewhere classifiedLong term (current) use of opiate analgesic 2 Mayra Rapp. [address] [place] [address] [address], [place], [id number] , [place]. [phone] Referring Provider: Too Del Cid, [address] [place] [address], [address]. tel:[phone] OFFICE/OUTPAT IENT VISIT, [facility], [address] [place] [address], [id number] , [place] tel:[phone] [facility] Back Pain (chief complaint) Chronic migraine without aura, intractable, without status migrainosusPai n in right shoulderPain in right kneePain in right ankle and joints of right footPain in left ankle and joints of left footRadiculopa thy, lumbar regionMyalgia, other sitePostlamine ctomy syndrome, not elsewhere classifiedLong term (current) use of opiate analgesicSpond ylosis without myelopathy or radiculopathy, lumbar region 2 Mayra Rapp. [address] [place] [address] [address], [place], [id number] , [place]. tel:[phone] Referring Provider: Too Del Cid, [address] [place] [address], [address]. tel:[phone] OFFICE VISIT, [facility], [address] [place] [address], [id number] , [place] [phone] [facility] Back Pain (chief complaint) Chronic migraine without aura, intractable, without status migrainosusPai n in right shoulderPain in right kneeRadiculopa thy, lumbar regionMyalgia, other sitePostlamine ctomy syndrome, not elsewhere classifiedLong term (current) use of opiate analgesicPain in left ankle and joints of left footPain in right ankle and joints of right foot 2 Mayra Rapp. [address] [place] [address] [address], [place], [id number] , [place]. tel:[phone] OFFICE/OUTPAT IENT VISIT, [facility], [address] [place] [address], [id number] , [place] [phone] [facility] Back Pain (chief complaint) Myalgia, other sitePain in right shoulderPain in right kneeRadiculopa thy, lumbar regionPostlami nectomy syndrome, not elsewhere classifiedLong term (current) use of opiate analgesicChron ic migraine without aura, intractable, without status migrainosus Aug- 2 Mayra Rapp. [address] [place] [address] [address], [place], [place], [id number] , [place]. tel:[phone] Referring Provider: Too Del Cid, [address] [place] [address], [id number]. tel:[phone] [facility], [address] [place] [address], [id number] , [place] tel:[phone] [facility] [place] No Information Aug- 2 Will Too. [address] [place] [address], [id number] , [place]. tel:[phone] [facility], [address] [place] [address], [id number] , [place] tel:[phone] [facility] No Information Jul- 2 Mayra Rapp. [address] [place] [address] [address], [place], [place], [id number] , [place]. tel:[phone] Referring Provider: Too Del Cid, [address] [place] [address], [address]. tel:[phone] OFFICE/OUTPAT IENT VISIT, EST [facility], [address] [place] [address], [id number] , [place] tel:[phone] [facility] Back Pain (chief complaint) Radiculopathy, lumbar regionMyalgia, other sitePostlamine ctomy syndrome, not elsewhere classifiedLong term (current) use of opiate analgesicEncou nter for therapeutic drug level monitoringEnco unter for screening for other disorderPain in right shoulderPain in right knee Jul- 2 Mayra Rapp. [address] [place] [address] [address], [place], [place], [id number] , [place]. tel:[phone] Referring Provider: Caleb Ontiveros, [facility] [address] [facility], [place], [address]. tel:[phone] OFFICE VISIT, [facility], [address] [place] [address], [id number] , [place] tel: [phone] [facility] Back Pain (chief complaint) Postlaminectom y syndrome, not elsewhere classifiedRadi culopathy, lumbar regionMyalgia, other siteLong term (current) use of opiate analgesic - 2 [place] Rapp. [facility] [address], [place], [place], [id number] , [place]. tel:[phone] Referring Provider: Too Del Cid, [address] [place] [address], [address]. tel:[phone] OFFICE/OUTPAT IENT VISIT, [facility], [address] [place] [address], [id number] , [place] tel:[phone] [facility] Back Pain (chief complaint) Myalgia, other sitePostlamine ctomy syndrome, not elsewhere classifiedRadi culopathy, lumbar regionLong term (current) use of opiate analgesic 1 [place] Rapp. [address] [place] [address] [address], [place], [place], [id number] , [place]. tel:[phone] Referring Provider: Too Del Cid, [address] [place] [address], [address]. tel:[phone] OFFICE VISIT, [facility], [address] [place] [address], [id number] , [place] tel:[phone] [facility] low back pain (chief complaint) Radiculopathy, lumbar regionMyalgia, other siteLong term (current) use of opiate analgesicPostl aminectomy syndrome, not elsewhere classified Nov- 1 May[place] Rapp. [address] [facility] [address], [place], [place], [id number] , [place]. tel:[phone] Referring Provider: Too Del Cid, [address] [place] [address], [address]. tel:[phone] [facility], [address] [place] [address], [id number] , [place] tel:[phone] [facility] Postlaminectom y syndrome, not elsewhere classified 1 [place]ra Rapp. [address] [place] [address] [address], [place], [place], [id number] , [place]. tel:[phone] Referring Provider: Too Del Cid, [address] [place] [address], [address]. tel:[phone] OFFICE/OUTPAT IENT VISIT, EST [facility], [address] [place] [address], [id number] , [place] tel:[phone] [facility] Widespread pain (chief complaint) Postlaminectom y syndrome, not elsewhere classifiedRadi culopathy, lumbar regionMyalgia, other siteLong term (current) use of opiate analgesic 1 Mayra Rapp. [address] [place] [address] [address], [place], [place], [id number] , [place]. tel:[phone] Referring Provider: Too Del Cid, [address] [place] [address], [address]. tel:[phone] [facility], [address] [place] [address], [id number] , [place] tel:[phone] [facility] No Information 1 Mayra Rapp. [address] [place] [address] [address], [place], [place], [id number] , [place]. tel:[phone] Referring Provider: Too Del Cid, [address] [place] [address], [address]. tel:[phone] OFFICE/OUTPAT IENT VISIT, [facility], [address] [place] [address], [id number] , [place] tel:[phone] [facility] Widespread pain (chief complaint) Postlaminectom y syndrome, not elsewhere classifiedRadi culopathy, lumbar regionMyalgia, other siteLong term (current) use of opiate analgesic 1 Mayra Rapp. [address] [place] [address] [address], [place], [place], [id number] , [place]. [phone] Referring Provider: Too Del Cid, [address] [place] [address], [address]. tel:[phone] OFFICE/OUTPAT IENT VISIT, [facility], [address] [place] [address], [id number] , [place] [phone] [facility] Widespread pain (chief complaint) Postlaminectom y syndrome, not elsewhere classifiedRadi culopathy, lumbar regionMyalgia, other siteLong term (current) use of opiate analgesic 1 Mayra Rapp. [address] [place] [address] [address], [place], [place], [id number] , [place]. [phone] Referring Provider: Too Del Cid, [address] [place] [address], [address]. tel:[phone] [place] [address] [facility], [address] [place] [address], [id number] , [place] [phone] [facility] Postlaminectom y syndrome, not elsewhere classified 1 [place]ra Rapp. [address] [place] [address] [address], [place], [place], [id number] , [place]. tel:[phone] Referring Provider: Too Del Cid, [address] [place] [address], [address]. tel:[phone] OFFICE/OUTPAT IENT VISIT, [facility], [address] [place] [address], [id number] , [place] tel:[phone] [facility] Widespread pain (chief complaint) Radiculopathy, lumbar regionMyalgia, other siteLong term (current) use of opiate analgesicPostl aminectomy syndrome, not elsewhere classified 1 Mayra Rapp. [address] [place] [address] [address], [place], [id number] , [place]. tel:[phone] Referring Provider: Too Del Cid, [address] [place] [address], [address]. tel:[phone] [facility], [address] [place] [address], [id number] , [place] tel:[phone] [facility] Postlaminectom y syndrome, not elsewhere classified Apr-0 1 Nunez Dionte. [address] [place] [address] [address], [place], [place], [id number] , [place]. tel:[phone] Referring Provider: Too Del Cid, [address] [place] [address], [address]. [phone] OFFICE/OUTPAT IENT VISIT, [facility], [address] [place] [address], [id number] , [place] tel:[phone] [facility] Widespread pain (chief complaint) Postlaminectom y syndrome, not elsewhere classifiedRadi culopathy, lumbar regionMyalgia, other siteLong term (current) use of opiate analgesicEncou nter for screening for other disorder Apr-0 1 Mayra Rapp. [address] [place] [address] [address], [place], [place], [id number] , [place]. tel:[phone] Referring Provider: Too Del Cid, [address] [place] [address], [address]. tel:[phone] OFFICE/OUTPAT IENT VISIT, [facility], [address] [place] [address], [id number] , [place] tel:[phone] [facility] Widespread pain (chief complaint) Postlaminectom y syndrome, not elsewhere classifiedRadi culopathy, lumbar regionMyalgia, other siteLong term (current) use of opiate analgesic Mar-0 1 Mayra Rapp. [address] [place] [address] [address], [place], [place], [id number] , [place]. tel:[phone] Referring Provider: Too Del Cid, [address] [place] [address], [address]. tel:[phone] [facility], [address] [place] [address], [id number] , [place] tel: [phone] [facility] [place] Postlaminectom y syndrome, not elsewhere classified 1 Mayra Rapp. [address] [place] [address] [address], [place], [place], [id number] , [place]. tel:[phone] Referring Provider: Too Del Cid, [address] [place] [address], [address]. tel:[phone] [place] [address] [facility], [address] [place] [address], [id number] , [place] tel:[phone] [facility] [place] No Information 1 Mayra Rapp. [address] [place] [address], [place], [place], [id number] , [place]. tel:[phone] OFFICE/OUTPAT IENT VISIT, EST [facility], [address] [place] [address], [id number] , [place] tel: [phone] [facility] [place] Widespread pain (chief complaint) Postlaminectom y syndrome, not elsewhere classifiedRadi culopathy, lumbar regionMyalgia, other siteLong term (current) use of opiate analgesicPain in right kneeChronic pain syndrome 1 Mayra Rapp. [address] [place] [address] [address], [place], [place], [id number] , [place]. tel:[phone] Referring Provider: Too Del Cid, [address] [place] [address], [address]. tel:[phone] OFFICE VISIT, EST TELEMEDICINE [facility], [address] [place] [address], [id number] , [place] tel: [phone] [facility] [place] Widespread pain (chief complaint) Postlaminectom y syndrome, not elsewhere classifiedRadi culopathy, lumbar regionMyalgia, other siteLong term (current) use of opiate analgesicPain in right kneeChronic pain syndrome 0 Mayra Rapp. [address] [place] [address] [address], [place], [place], [id number] , [place]. tel:[phone] Referring Provider: Too Del Cid, [address] [place] [address], [address]. tel:[phone] [facility], [address] [place] [address], [id number] , [place] tel:[phone] [facility] Postlaminectom y syndrome, not elsewhere classified 0 Mayra Rapp. [address] [place] [address] [address], [place], [place], [id number] , [place]. tel:[phone] Referring Provider: Too Del Cid, [address] [place] [address], [address]. tel:[phone] [facility], [address] [place] [address], [id number] , [place] tel:[phone] [facility] Postlaminectom y syndrome, not elsewhere classified 0 Emiliano Martinez. [address] [place] [address], [id number] , [place]. tel:[phone] Referring Provider: Too Del Cid, [address] [place] [address], [address]. tel:[phone] OFFICE VISIT, EST TELEMEDICINE [facility], [address] [place] [address], [id number] , [place] tel:[phone] [facility] Widespread pain (chief complaint) Radiculopathy, lumbar regionMyalgia, other siteLong term (current) use of opiate analgesicPain in right kneeChronic pain syndromePostla minectomy syndrome, not elsewhere classified 0 Mayra Rapp. [address] [place] [address] [address], [place], [place], [id number] , [place]. tel:[phone] Referring Provider: Too Del Cid, [address] [place] [address], [address]. tel:[phone] OFFICE/OUTPAT IENT VISIT, EST [facility], [address] [place] [address], [id number] , [place] tel:[phone] [facility] [place] Widespread pain (chief complaint) Myalgia, other siteRadiculopa thy, lumbar regionPostlami nectomy syndrome, not elsewhere classifiedLong term (current) use of opiate analgesicPain in right kneeChronic pain syndrome [address] [facility], [place], [place], [id number] , [place]. tel:[phone] Referring Provider: Too Del Cid, [address] [place] [address], [address]. tel:[phone] [facility], [address] [place] [address], [id number] , [place] tel:[phone] [facility] Postlaminectom y syndrome, not elsewhere classifiedMyal isabel, other site [address] [facility], [place], [place], [id number] , [place]. tel:[phone] Referring Provider: Too Del Cid, [address] [place] [address], [address]. tel:[phone] [facility], [address] [place] [address], [id number] , [place] tel:[phone] [facility] Radiculopathy, lumbar regionPostlami nectomy syndrome, not elsewhere classified 0 Mayra Rapp. [address] [facility] [address], [place], [place], [id number] , [place]. tel:[phone] Referring Provider: Too Del Cid, [address] [place] [address], [address]. tel:[phone] [facility], [address] [place] [address], [id number] , [place] tel:[phone] [facility] No Information Oct-0 6-202 0 Will Too. [address] [place] [address], [id number] , [place]. [phone] Referring Provider: Too Del Cid, [address] [place] [address], [id number]. tel:[phone] OFFICE VISIT, EST TELEMEDICINE [facility], [address] [place] [address], [id number] , [place] tel:[phone] [facility] [place] Widespread pain (chief complaint) Radiculopathy, lumbar regionLong term (current) use of opiate analgesicMyalg ia, other sitePain in right kneeChronic pain syndromePostla minectomy syndrome, not elsewhere classified Sep-2 5-202 0 [place] Rapp. [facility] [facility], [place], [place], [id number] , [place]. [phone] Referring Provider: Too Del Cid, [address] [place] [address], [id number]. tel:[phone] [facility], [address] [place] [address], [id number] , [place] [phone] [facility] Radiculopathy, lumbar region Sep-0 -202 0 Cummings Michelle. [address] [place] [address], [id number] , [place]. [phone] Referring Provider: Too Del Cid, [address] [place] [address], [address]. tel:[phone] [facility], [address] [place] [address], [id number] , [place] tel:[phone] [facility] No Information Sep-0 3-202 0 Cummings Michelle. [address] [place] [address], [id number] , [place]. [phone] Referring Provider: Too Del Cid, [address] [place] [address], [address]. tel:[phone] OFFICE VISIT, EST TELEMEDICINE [facility], [address] [place] [address], [id number] , [place] tel: [phone] [facility] [place] Widespread pain (chief complaint) Postlaminectom y syndrome, not elsewhere classifiedLong term (current) use of opiate analgesicRadic ulopathy, lumbar regionMyalgia, other sitePain in right kneeChronic pain syndrome 0 Nunez Dionte. [address] [place] [address] [address], [place], [place], [id number] , [place]. tel:[phone] Referring Provider: Too Del Cid, [address] [place] [address], [id number]. tel:[phone] [facility], [address] [place] [address], [id number] , [place] tel: [phone] [facility] [place] Postlaminectom y syndrome, not elsewhere classified 0 Nunez Dionte. [address] [place] [address] [address], [facility], [place], [id number] , [place]. tel:[phone] OFFICE VISIT, EST TELEMEDICINE [facility], [address] [place] [address], [id number] , [place] tel: [phone] [facility] [place] Widespread pain (chief complaint) Pain in right kneeChronic pain syndromePostla minectomy syndrome, not elsewhere classifiedLong term (current) use of opiate analgesicRadic ulopathy, lumbar regionMyalgia, other site 0 Nunez Dionte. [address] [place] [address] [address], [facility], [place], [id number] , [place]. tel:[phone] Referring Provider: Too Del Cid, [address] [place] [address], [address]. tel:[phone] OFFICE VISIT, EST TELEMEDICINE [facility], [address] [place] [address], [id number] , [place] tel:[phone] Telehealth Widespread pain (chief complaint) Pain in right kneeChronic pain syndromePostla minectomy syndrome, not elsewhere classifiedLong term (current) use of opiate analgesicRadic ulopathy, lumbar regionMyalgia, other site 0 [place] Rapp. [address] [place] [address] [address], [place], [place], [id number] , [place]. tel:[phone] Referring Provider: Too Del Cid, [address] [place] [address], [address]. tel:[phone] OFFICE VISIT, EST TELEMEDICINE [facility], [address] [place] [address], [id number] , [place] tel:[phone] Telehealth Widespread pain (chief complaint) Postlaminectom y syndrome, not elsewhere classifiedPain in right kneeChronic pain syndromeLong term (current) use of opiate analgesicRadic ulopathy, lumbar regionMyalgia, other site 0 [place] Rapp. [address] [place] [address] [address], [place], [place], [id number] , [place]. tel:[phone] Referring Provider: Too Del Cid, [address] [place] [address], [address]. tel:[phone] Psych Dx Eval [facility], [address] [place] [address], [id number] , [place] tel:[phone] Telehealth Pain disorder with related psychological factorsPost-tr aumatic stress disorder, unspecified 0 Tess Aguilar. [address] [place] [address], [id number] , [place]. [phone] Referring Provider: Too Del Cid, [address] [place] [address], [address]. tel:[phone] OFFICE VISIT, EST TELEMEDICINE [facility], [address] [place] [address], [id number] , [place] tel:[phone] Telehealth Widespread pain (chief complaint) Chronic pain syndromePain in right kneePostlamine ctomy syndrome, not elsewhere classifiedLong term (current) use of opiate analgesicMyalg ia, other siteRadiculopa thy, lumbar region 0 [place] Rapp. [address] [place] [address] [address], [place], [place], [id number] , [place]. tel:[phone] Referring Provider: Too Del Cid, [address] [place] [address], [address]. tel:[phone] OFFICE VISIT, EST [facility], [address] [place] [address], [id number] , [place] tel: [phone] Telehealth Widespread pain (chief complaint) Chronic pain syndromePain in right kneePostlamine ctomy syndrome, not elsewhere classifiedLong term (current) use of opiate analgesic Amos-0 2- 0 Nunez Dionte. [address] [place] [address] [address], [place], [place], [id number] , [place]. tel:[phone] Referring Provider: Too Del Cid, [address] [place] [address], [address]. tel:[phone] OFFICE VISIT, [facility], [address] [place] [address], [id number] , [place] tel: [phone] Telehealth Widespread pain (chief complaint) Postlaminectom y syndrome, not elsewhere classifiedPain in right kneeChronic pain syndromeLong term (current) use of opiate analgesic September- 0 Nunez Dionte. [address] [place] [address] [address], [place], [place], [id number] , [place]. tel: [phone] Referring Provider: Too Del Cid, [address] [place] [address], [address]. tel:[phone] OFFICE VISIT, [facility], [address] [place] [address], [id number] , [place] tel: [phone] Telehealth Widespread pain (chief complaint) Postlaminectom y syndrome, not elsewhere classifiedPain in right kneeChronic pain syndromeLong term (current) use of opiate analgesicPain in left hip September-0 0 Nunez Dionte. [address] [place] [address] [address], [place], [place], [id number] , [place]. tel: [phone] OFFICE VISIT, EST [facility], [address] [place] [address], [id number] , [place] tel:[phone] Telehealth Widespread pain (chief complaint) Postlaminectom y syndrome, not elsewhere classifiedPain in right kneeChronic pain syndromeLong term (current) use of opiate analgesic Apr-2 0-202 0 [place] Rapp. [address] [facility] [address], [place], [place], [id number] , [place]. tel:[phone] Referring Provider: Too Del Cid, [address] [place] [address], [address]. tel:[phone] OFFICE VISIT, EST TELEMEDICINE [facility], [address] [place] [address], [id number] , [place] tel:[phone] Telehealth Widespread pain (chief complaint) Postlaminectom y syndrome, not elsewhere classifiedPain in right kneeChronic pain syndromeLong term (current) use of opiate analgesic Apr-0 2-202 0 [place] Rapp. [address] [place] [address] [address], [place], [place], [id number] , [place]. tel:[phone] Referring Provider: Too Del Cid, [address] [place] [address], [address]. tel:[phone] OFFICE VISIT, EST TELEMEDICINE [facility], [address] [place] [address], [id number] , [place] tel:[phone] [facility] Widespread pain (chief complaint) technician terminal and repeater (current) use of opiate analgesicPostl aminectomy syndrome, not elsewhere classifiedPain in right kneeChronic pain syndrome 8 0 [place] Rapp. [address] [place] [address] [address], [place], [place], [id number] , [place]. tel:[phone] Referring Provider: Too Del Cid, [address] [place] [address], [address]. tel:[phone] [facility], [address] [place] [address], [id number] , [place] [phone] [facility] [place] No Information Jul- 0- 0 [place] Rapp. [address] [place] [address] [address], [facility], [place], [id number] , [place]. tel:[phone] OFFICE/OUTPAT IENT VISIT, [facility], [address] [place], [place], [id number] , [place] tel:[phone] [facility] Widespread pain (chief complaint) Chronic pain syndromePostla minectomy syndrome, not elsewhere classifiedPain in right kneeLong term (current) use of opiate analgesic Jul-0 - 0 [place] Rapp. [address] [facility] [address], [place], [place], [id number] , [place]. tel:[phone] Referring Provider: Too Del Cid, [address] [place], [address]. tel:[phone] OFFICE/OUTPAT IENT VISIT, [facility], [address] [place], [place], [id number] , [place] tel:[phone] [facility] Widespread pain (chief complaint) Chronic pain syndromePostla minectomy syndrome, not elsewhere classifiedMyal isabel, other sitePain in right kneeEncounter for therapeutic drug level monitoringLong term (current) use of opiate analgesic 2 0 Nunez Dionte. [address] [facility] [address], [place], [place], [id number] , [place]. tel:[phone] Referring Provider: Caleb Ontiveros [facility] [address] [facility], [place], [address]. tel:[phone] Family History Family Member Type Diagnosis Age At Onset No Information Payers Payer name Insurance type Covered alliance party ID Authoriza tiada(s) [employer] [facility] Replacement [id number] Social History Type Description Quantity Date Captured [...] Goal AST (SGOT). Due on due Goal SCREEN TENDER Scanned. Due on due Goal COLLAR FOLDER OPERATOR Paperwork. Due on due Goal Creatinine. Due [...] due Goal FIT. Due on due Goal COLLAR FOLDER OPERATOR Paperwork. Due on due Goal OARS. Due on due Goal SCREEN TENDER Scanned. Due on due Goal ALT (SGPT). [...] ue Goal CT-Colonography. Due on due Goal ALT (SGPT). Due on due Goal OARS. Due on due Goal COLLAR FOLDER OPERATOR Paperwork. Due on due Goal Creatinine. Due on due Goal UDT. Due on due Goal Order Annual PT. Due on due Goal AST (SGOT). Due on due Goal SCREEN TENDER Scanned. Due on due Goal Unhealthy drug [...] Goal Lipid panel. Due on due Goal OARS. Due on due Goal SCREEN TENDER Scanned. Due on due Goal Order Annual PT. Due on due Goal AST (SGOT). Due on due Goal ALT (SGPT). Due on due Goal COLLAR FOLDER OPERATOR Paperwork. Due on due Goal UDT. Due on due Goal Zoster vaccine ( 1st). Due on due Goal CT-Colonography. Due on [...] C scre ening. Due on due Goal SCREEN TENDER Scanned. Due on due Goal Height. Due on d ue Goal HPV. Due on due Goal Weight. Due on d ue Goal Tobacco Use. Due on due Goal Zoster vaccine ( 1st). Due on due Goal Creatinine. Due on due Goal OARS. Due on due Goal AST (SGOT). Due on due Goal Order Annual PT. Due on due Goal UDT. Due on due Goal COLLAR FOLDER OPERATOR Paperwork. Due on due Goal ALT (SGPT). [...] due Goal CT-Colonography. Due on due Goal AST (SGOT). Due on due Goal Hepatitis C scre ening. Due on due Goal Lipid panel. Due on due Goal UDT. Due on due Goal Creatinine. Due on due Goal COLLAR FOLDER OPERATOR Paperwork. Due on due Goal ALT (SGPT). Due on due Goal Order Annual PT. Due on due Goal SCREEN TENDER Scanned. Due on due Goal OARS. Due on due Goal CT-Colonography. Due on [...] e Goal Creatinine. Due on due Goal SCREEN TENDER Scanned. Due on due Goal COLLAR FOLDER OPERATOR Paperwork. Due on due Goal OARS. Due [...] vaccine ( 1st). Due on due Goal Review Allergy L ist. Due on due Goal UDT. Due on due Goal SCREEN TENDER Scanned. Due on 022 due Goal Creatinine. Due on due Goal ALT (SGPT). Due on due Goal Order Annual PT. Due on due Goal COLLAR FOLDER OPERATOR Paperwork. Due on due Goal OARS. Due [...] due Goal Creatinine. Due on due Goal SCREEN TENDER Scanned. Due on due Goal OARS. Due on due Goal AST (SGOT). Due on due Goal ALT (SGPT). Due on due Goal Order Annual PT. Due on due Goal COLLAR FOLDER OPERATOR Paperwork. Due on due Goal Unhealthy drug [...] Medication Recon ciliation. Due on due Goal SCREEN TENDER Scanned. Due on due Goal ALT (SGPT). Due on due Goal UDT. Due on due Goal AST (SGOT). Due on due Goal COLLAR FOLDER OPERATOR Paperwork. Due on due Goal Order Annual [...] Order Annual PT. Due on due Goal COLLAR FOLDER OPERATOR Paperwork. Due on due Goal AST (SGOT). Due on due Goal ALT (SGPT). Due on due Goal UDT. Due on due Goal OARS. Due on due Goal SCREEN TENDER Scanned. Due on due Goal Creatinine. Due [...] Goal Weight. Due on d ue Goal SCREEN TENDER Scanned. Due on due Goal COLLAR FOLDER OPERATOR Paperwork. Due on due Goal ALT (SGPT). Due on due Goal OARS. Due on due Goal AST (SGOT). Due on due Goal UDT. Due on due Goal Creatinine. Due on due Goal Order Annual PT. Due on due Goal CT-Colonography. Due on due Goal Tobacco Use. Due on due Goal Hepatitis C scre [...] Medication Recon ciliation. Due on due Goal COLLAR FOLDER OPERATOR Paperwork. Due on due Goal Creatinine. Due on due Goal AST (SGOT). Due on due Goal OARS. Due on due Goal ALT (SGPT). Due on due Goal UDT. Due on due Goal SCREEN TENDER Scanned. Due on 022 due Goal Order Annual PT. Due on [...] Goal Tobacco Use. Due on due Goal COLLAR FOLDER OPERATOR Paperwork. Due on due Goal UDT. Due on due Goal SCREEN TENDER Scanned. Due on due Goal Order Annual PT. Due on due Goal Creatinine. Due on due Goal Creatinine. Due on due Goal SCREEN TENDER Scanned. Due on due Goal AST (SGOT). Due on due Goal UDT. Due on due Goal COLLAR FOLDER OPERATOR Paperwork. Due on due Goal OARS. Due [...] Order Annual PT. Due on due Goal SCREEN TENDER Scanned. Due on due Goal UDT. Due on due Goal AST (SGOT). Due on due Goal Creatinine. Due on due Goal OARS. Due on due Goal HPV. Due on due Goal Tobacco Use. Due on due Goal COLLAR FOLDER OPERATOR Paperwork. Due on due Goal ALT (SGPT). [...] Goal ALT (SGPT). Due on due Goal SCREEN TENDER Scanned. Due on due Goal Creatinine. Due on due Goal COLLAR FOLDER OPERATOR Paperwork. Due on due Goal UDT. Due [...] Goal PHQ-9. Due on du e Goal SCREEN TENDER Scanned. Due on due Goal Unhealthy drug u se screening. Due on due Goal Zoster vaccine ( 1st). Due on due Goal OARS. Due on due Goal Creatinine. Due on due Goal COLLAR FOLDER OPERATOR Paperwork. Due on due Goal ALT (SGPT). [...] Goal Lipid panel. Due on due Goal OARS. Due on [...] Order Annual PT. Due on due Goal COLLAR FOLDER OPERATOR Paperwork. Due on due Goal AST (SGOT). Due on due Goal SCREEN TENDER Scanned. Due on due Goal ALT (SGPT). Due on due Goal UDT. Due on due Goal Tobacco Use. Due on due Goal Update Social Hi story. Due on due Goal Medication Recon ciliation. Due on due Goal Weight. Due on d ue Goal Review Allergy L ist. Due on due Goal Height. Due on d ue Goal PHQ-9. Due on du e Goal Creatinine. Due on due Goal OARS. Due on due Goal UDT. Due on due Goal ALT (SGPT). Due on due Goal SCREEN TENDER Scanned. Due on due Goal AST (SGOT). Due on due Goal COLLAR FOLDER OPERATOR Paperwork. Due on due Goal Order Annual PT. Due on due Goal SCREEN TENDER Scanned. Due on due Goal ALT (SGPT). Due on due Goal UDT. Due on due Goal OARS. Due on due Goal Creatinine. Due on due Goal Order Annual PT. Due on due Goal COLLAR FOLDER OPERATOR Paperwork. Due on due Goal AST (SGOT). Due on due Goal PHQ-9. Due on du e Goal Height. Due on d ue Goal Review Allergy L ist. Due on due Goal Weight. Due on d ue Goal Medication Recon ciliation. Due on due Goal Update Social Hi story. Due on due Goal Tobacco Use. Due on due Goal SCREEN TENDER Scanned. Due on due Goal ALT (SGPT). [...] Order Annual PT. Due on due Goal COLLAR FOLDER OPERATOR Paperwork. Due on due Goal AST (SGOT). [...] Order Annual PT. Due on due Goal COLLAR FOLDER OPERATOR Paperwork. Due on due Goal AST (SGOT). Due on due Goal SCREEN TENDER Scanned. Due on due Goal ALT (SGPT). Due on due Goal PHQ-9. Due on du e Goal Height. Due on d ue Goal Review Allergy L ist. Due on due Goal Review Allergy L ist. Due on due Goal Weight. Due on d ue Goal Medication Recon ciliation. Due on due Goal Update Social Hi story. Due on due Goal Tobacco Use. Due on due Goal SCREEN TENDER Scanned. Due on due Goal ALT (SGPT). Due on due Goal PHQ-9. Due on du e Goal Height. Due on d ue Goal UDT. Due on due Goal OARS. Due on due Goal Creatinine. Due on due Goal Order Annual PT. Due on due Goal COLLAR FOLDER OPERATOR Paperwork. Due on due Goal AST (SGOT). Due on due Goal UDT. Due on due Goal OARS. Due on due Goal Creatinine. Due on due Goal Order Annual PT. Due on due Goal COLLAR FOLDER OPERATOR Paperwork. Due on due Goal AST (SGOT). Due on due Goal SCREEN TENDER Scanned. Due on due Goal ALT (SGPT). Due on due Goal PHQ-9. Due on du e Goal Height. Due on d ue Goal Review Allergy L ist. Due on due Goal Weight. Due on d ue Goal Medication Recon ciliation. Due on due Goal Update Social Hi story. Due on due Goal Tobacco Use. Due on due Goal ALT (SGPT). Due [...] Order Annual PT. Due on due Goal COLLAR FOLDER OPERATOR Paperwork. Due on due Goal AST (SGOT). Due on due Goal SCREEN TENDER Scanned. Due on due Goal Tobacco Use. Due on due Goal SCREEN TENDER Scanned. Due on due Goal ALT (SGPT). Due on due Goal UDT. Due on due Goal PHQ-9. Due on du e Goal Height. Due on d ue Goal Review Allergy L ist. Due on due Goal Weight. Due on d ue Goal Medication Recon ciliation. Due on due Goal Update Social Hi story. Due on due Goal Tobacco Use. Due on due Goal AST (SGOT). Due on due Goal COLLAR FOLDER OPERATOR Paperwork. Due on due Goal Order Annual PT. Due on due Goal Creatinine. Due on due Goal OARS. Due on due Goal OARS. Due on due Goal Creatinine. Due on due Goal Order Annual PT. Due on due Goal COLLAR FOLDER OPERATOR Paperwork. Due on due Goal AST (SGOT). Due on due Goal SCREEN TENDER Scanned. Due on due Goal ALT (SGPT). [...] Goal Tobacco cessation counseling completed Referral Ordered: [facility] -Family Medicine (related to Radiculopathy, lumbar region) ordered Referral Ordered: Azael Regan -Allopathic [facility] Osteopathic Physicians : Family Medicine (related to Radiculopathy, lumbar region) ordered Referral Referred To: [facility] [address] [place], [phone] Ordered: Referrals: Family Medicine. [facility] ordered Referral Ordered: X-RAY EXAM OF HIPS LT hip ordered Referral Ordered: Azael Regan -[facility] : Family Medicine (related to Postlaminectomy syndrome, not elsewhere classified) ordered Referral Referred To: Azael Regan [facility]
[address] [place], [phone] Ordered: Referrals: Allopathic & Osteopathic Physicians : [...] assessment:Difficulty reaching, lifting, carrying, pushing, pulling, and system technologist is hopeful that the SCS device will [...] discomfort. Patient was meeting with Jose from [employer] today and expressed her frustration with charging. [...] living facility. No other concerns. Back Pain Duration: chroni c. The problem is stable. It occurs persistently. Location of pain is lower back. Comments: Brandee is here for follow up [...] TKA on 07/09/[address] Camara from [facility]. SCREEN TENDER was reviewed and shows pt was rx'ed 2mg Dilaudid max 7/day for post op pain. She was rx'ed #49tabs on 08/23/21, #49tabs on 08/19/21 and #49 tabs on 08/08/21. Her chronic dose at [facility] is #5tabs a day, patient agreeable to [...] rescheduled for 07/09/[address] Camara from [facility]. Surgeon will manage post-op pain. Lower [...] for [address] Lino or from [facility]. It was canceled due to no [...] today. No other concerns. low back pain (comments) Brandee arrieta resents for followup and medication management for her widespread pain. Continues to heal from R hip replacement. In the next month, she has scheduled R TKA with Dr. Camara through [facility]. Discussed post-op pain management. Also continues to detail difficulty with SCS. States it has been and she has been unable to charge it. Reports current medication regimen provides 50% pain relief and allows increased functionality. Denies side effects from current medication regimen. No other concerns today. low back pain Severity level i s 7. Duration: chronic. The problem is fluctuating. It occurs intermittently. Location of pain is middle back and gluteal area.The patient describes the pain as an ache, burning and dull. Symptoms are aggravated by ascending stairs, daily activities and defecation. Symptoms are relieved by pain meds/drugs and rest. Widespread pain Severity level i s 6. [...] order. She looks forward to reprogramming with [employer] today as she has had questions about her device. Requests TPIs today as they have provided significant relief in the past. Reports current medication regimen provides 50% pain relief and allows increased functionality. Denies side effects from current medication regimen. No other concerns today. Widespread pain (comments) Brandee presents for followup [...] Pain has been worse. She went to [facility] two weeks ago with atrial fibrillation. She completed work-up and was put on warfarin. She met with her orthopedist at [facility] regarding her R knee pain. Orthopedist recommended [...] month due to visiting her daughter in [place]. She realized she can not walk long distances with her walker. Had a injection scheduled with [facility] but [employer] service could not provide her the ride from [place]. She is excited about the recently approved for lumbar Medtronic SCS trial. She will not go forward with rescheduling injection and just focus on the SCS trial. Reports current medication regimen provides 50% pain relief. Denies side effects from current medication regimen. No other concerns today. Widespread pain Severity level i s 10. [...] (urinary). Widespread pain Severity level i s 9. [...] trial.She had a recent lumbar MRI with [facility] and per patient the imaging showed herniation and disc slippage at multiple levels. She said [facility] recommend a injection. With previous injections, she explains having a reaction to the procedure. She scheduled the injection on 12/[address] estrella at [facility].Reports current medication regimen provides at least 20% [...] upcoming appt. with a back surgeon through [facility] next week to be evaluated. 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 States that she has arrythmia although not currently. Widespread pain (comments) Brandee presents for follow [...] Medtronic SCS trial. Reports she presented to [facility] and dropped off her psych evaluation report, [...] cold, Rx Meds and chiropractic. Widespread pain Severity level i s 7. [...] and she is also unable to attend clinical manager home care which she significantly benefits from. She [...] her medication. Medications are managed by [facility]. Denies side effects.Patient is not accompanied [...] has started physical therapy at [facility] [place] [facility] and intends on continuing twice [...] been recommended for possible R TKA at [facility], but no date has been scheduled. States her pain causes her lots of anxiety because she has tried many treatments without significant benefit. She is currently enrolled in PT at [facility] in [facility]. She also regularly attends the [...] and other recommended therapies and would like [facility] to assume management of pain care. Functional Status Date Functional Assessmen t No Information Instructions Date Instruction Additional Infor mation No Information Assessments Type Assessment Date assessment Pain in right knee impression S/p right TKA on 12/[address] Camara from [facility]. Has been participating in PT with good benefit. Pain has been worse since [facility] assessment Pain in left ankle and joints of left foot impression Worsening pain in th e left ankle and is considering an ankle fusion assessment Radiculopathy, lumbar region Jul impression Lower back pain with radiation into her BLE, continues to worsen since [facility] assessment Myalgia, other site impression TPIs in the past wit hout benefit. PO muscle relaxers provide moderate relief assessment Postlaminectomy syndrome, not el sewhere classified impression Hx of L4-S1 fusion. She has an SCS implant but may be interested in an explant assessment [facility] (current) use of opiat e analgesic impression The medication relie ves at least 60% of the pain, does not cause significant side effects, increases the patient's daily activity level. Medication managed by facility.Most of today's visit was spent discussing the patient's recent discharge from the clinic d/t her inappropriate behavior and language used toward staff. Patient expresses frustrations with termination. [employer] terminated.Most recent UDT results reviewed and appropriate. Not appropriate to continue opioid therapy d/t issues with inappropriate behavior. Current MME 30 Mental Status Date Cognitive Assessment Orientation - [place] ed to time, place, person, situation. Patient Care Teams Name Effective Dates (start - stop) Status Members No Information
[2023-02-04 00:47] LABS: Basophils Absolute Auto 0.03 K/uL (0.00-0.30); Basophils Percent Auto 0.6 % (0.0-3.0); Eosinophils Absolute Auto 0.26 K/uL (0.00-0.50); Hematocrit 33.3 % (33.0-51.0); Hemoglobin* 10.3 gm/dL (12.0-16.0); Immature Granulocytes Abs Auto 0.01 K/uL (0.00-0.30); Immature Granulocytes Pct Auto 0.2 %; Lymphocytes Percent Auto 19.2 % (20-44); Mean Corpuscular HGB Conc 31 gm/dL (32-36); Mean Corpuscular Hemoglobin 26 pg (26-34); Mean Corpuscular Volume 84 fL (80-100); Monocytes Percent Auto 7.9 % (0.0-11.0); Neutrophils Absolute Auto 3.46 K/uL (1.7-7.0); Neutrophils Percent Auto 67.1 % (42.0-72.0); Platelet Count* 169 K/uL (140-440); RDW Coefficient of Variation % 18.9 % (11.5-15.5); Red Blood Count 3.97 m/uL (4.00-5.20); White Blood Count* 5.16 K/uL (4.50-11.00)
[2023-02-04 00:48] LABS: Slide Review Reflex No
[2023-02-04 00:50] LABS: Chloride* 101 mmol/L (96-114); Sodium* 136 mmol/L (135-149)
[2023-02-04 00:51] LABS: Potassium* 3.2 mmol/L (3.6-5.1)
[2023-02-04 00:52] LABS: Amylase* 41 U/L (18-89); Creatinine* 0.4 mg/dL (0.5-1.5); Est. Creatinine Clearance* 45.54; Estimated Glomerular Filt Rate 111 ml/min
[2023-02-04 00:53] LABS: Alanine Aminotransferase* 30 U/L (4-35); Alkaline Phosphatase* 93 U/L (40-150); Anion Gap 5 mEq/L (7-15); Aspartate Amino Transferase* 25 U/L (12-35); Bilirubin Total* 0.3 mg/dL (0.1-1.5); Blood Urea Nitrogen* 15 mg/dL (7-30); Carbon Dioxide* 30 mmol/L (20-32); Glucose* 181 mg/dL (60-115); INR 2.18 (0.91-1.10); Lipase* 45 U/L (23-300); Prothrombin Time 25.3 Seconds; Total Protein* 5.7 g/dL (6.0-8.3)
[2023-02-04 00:54] LABS: Appearance Urine Clear (Clear); Bilirubin Urine Negative (Negative); Blood Urine Negative (Negative); Color Urine Yellow (Yellow); Glucose Urine Negative (Negative); Ketones Urine Negative (Negative); Leukocyte Esterase Urine Negative (Negative); Nitrite Urine Negative (Negative); Protein Urine Negative (Negative); Urobilinogen Urine 0.2 (0.2-1.0)
[2023-02-04 00:54] LABS: Calcium* 8.4 mg/dL (8.4-10.6)
[2023-02-04 00:56] LABS: C Reactive Protein* 6.9 mg/dL (0.5-1.0)
--- NOTE | 2023-02-04 00:57 | ED.NURSE ---
patient requesting additional pain medication.
--- NOTE | 2023-02-04 04:15 | ED.NURSE ---
RN gave patient report to staff member Cosmo at [facility]. Cosmo can be reached at [phone]
[2023-02-04 04:16] VITALS: BP 92/78; PULSE 91
[2023-02-04] MEDS: polyethylene glycoL 3350 17 GM PACK PO (04:18)
--- NOTE | 2023-03-17 00:35 | ED.NURSE ---
securities underwriter in chart to print off wheelchair transport and consent forms for EMS.
== END 2023-02-04 04:40 | disposition home or self-care (01) ==
PROVIDERS: Emergency Provider Family Medicine; PCP Internal Medicine
DX: K59.00 Constipation, unspecified (principal)
CPT/HCPCS: 36415; 74177; 80053; 81003; 82150; 83690; 85025; 85610; 86140; 96374; 99283; 99284; 99285; A9270; J1885; Q9967

== ENCOUNTER 2023-02-04 04:40 | Outpatient (CLI) | payer MEDICAID, SELFPAY ==
--- OUTSIDE RECORDS SUMMARY | 2023-02-14 20:05 | XMS_ITS | Continuity of Care Document ---
Author Name Unknown Organization [facility] Address [address] [place] [address] Phone Care Team Providers Care Lug Breaker And Wire Puller Name Role Phone Odalys BOLES, Homar Unavailable [...] C, [address], [place], [place], [id number], [place] tel:[phone] [facility] No Information 8 Odalys Graf. [facility] [place], [address] [place] [address] [address], [place], [place], [id number] , [place]. tel:[phone] [facility], [address], [place], [place], [id number], [place] tel:[phone] [facility] No Information 8 Odalys Graf. [facility] [place], [address] [place] [address] [address], [place], [place], [id number] , [place]. tel:[phone] [facility], [address], [place], [place], [id number], [place] tel:[phone] [facility] No Information 8 Rodrick Pop. [facility] [place], [address] [place] [address] [address], [place], [place], [id number] , [place]. tel:[phone] Referring Provider: Homar Morrow, [facility] [place] [address] [place] [address] [address], [place], [address] . tel:[phone] [facility], [address], [place], [place], [id number], [place] tel:[phone] [facility] No Information 6 8 Odalys Graf. [facility], [address], [place], [place], [id number] , [place]. [phone] Referring Provider: Homar Morrow, [facility] [address], [place], [address] . tel:[phone] Office/Outpat ient Visit,Est, Mod [facility], [address], [place], [place], [id number], [place] tel:[phone] [facility] Spinal stenosis, lumbar region 5 7 Odalys Graf. [facility] [place], [address], [place], [place], [id number] , [place]. [phone] Referring Provider: Homar Morrow, [facility] [address], [place], [address] . tel:[phone] [facility], [address], [place], [place], [id number], [place] tel:[phone] [facility] Spinal stenosis, lumbar region 0-201 6 Odalys Graf. [facility] [place], [address], [place], [id number] , [place]. [phone] Referring Provider: Homar Morrow, [facility] [address], [place], [address] . tel:[phone] [facility], [address], [place], [place], [id number], [place] tel:[phone] [facility] Arthrodesis status 1-201 6 Odalys Graf. [facility] [place], [address], [place], [place], [id number] , [place]. [phone] [facility], [address], [place], [id number], [place] tel:[phone] [facility] No Information Sep-2 6 Odalys Rowlandin. [facility], [address], [place], [id number] , [place]. tel:[phone] Referring Provider: Homar Morrow, [facility] [address], [place], [address] . tel:[phone] Family History Family Member Type Diagnosis Age At Onset No Information Payers Payer name Insurance type Covered constitution party ID Authoreneida sampsonada(s) Medicare [id number] Social History Type Description Quantity Date Captured [...]
--- OUTSIDE RECORDS SUMMARY | 2023-02-14 20:05 | XMS_ITS | Continuity of Care Document ---
Author Name Unknown Organization [facility] Address [address] [place] [id number] Care Team Providers Care Classroom Coordinator Name Role Phone [facility] Unavailable Unav ailable Procedures Procedure [...] Diagnoses Date Provider Providers Copied on Encounter [facility], [address] [place] [address], [id number], [facility] No Information [facility]. [address] [place], [place], [id number], [place]. tel:[phone] Referring Provider: Michelle Cummings, [address] [place], [address]. tel:[phone] [facility], [address] [place], [place], [id number], [facility] No Information [facility]. [address] [facility] [place], [place], [id number], [place]. tel:[phone] Referring Provider: Too Del Cid, [address] [place], [address]. tel:[phone] [facility] [place], [address], [place], [id number], [place] [facility] No Information [facility]. [address] [place], [place], [id number], . tel:[phone] Referring Provider: Michelle Cummings, [address] [place], [address]. tel:[phone] Family History Family Member Type Diagnosis Age [...]
--- OUTSIDE RECORDS SUMMARY | 2023-02-14 20:05 | XMS_ITS | Continuity of Care Document ---
Author Name Unknown Organization [facility] Address [address] [place] [address] Care Team Providers Care Director Cloud Transformation Name Role Phone Simba Lowry CRNA Unavailable Unavailable Procedures Procedure Date ANESTH, HEAD/NECK/PTRUNK ANESTH PERC IMG TX SP PROC Advance Directives Directive Yes / No Effective Date File Name No Information Encounters Encounter Description Practice Location Reason(s) For Visit Diagnoses Date Provider Providers Copied on Encounter [facility], [address] [place] [address], [id number], [facility] No Information Alen Cottrell. [address] [place] [address], [id number], . tel:[phone] Referring Provider: Michelle Cummings, [address] [place] [address], [address] . tel:[phone] [facility], [address] [place] [address], [id number], [facility] No Information Asad Ramirez. [address] [facility] [address] [address], [place], [place], [id number], . tel:[phone] Referring Provider: Too Del Cid, [address] [place], [address] . tel:[phone] Family History Family Member Type Diagnosis Age [...]
--- OUTSIDE RECORDS SUMMARY | 2023-02-14 20:06 | XMS_ITS | Continuity of Care Document ---
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 Phone Dionte Granados Unavailable Unavailable [...] OFFICE VISIT, EST TELEMEDICINE 20 OFFICE VISIT, [facility] TELEMEDICINE 20 Foll-up eval q3mo opiod tx OFFICE/OUTPATIENT VISIT, EST Drug Urine Toxology With Chromatography SCS Trial Procedure Ordered INJ TRIGGER POINT, 1/2 MUSCL OFFICE/OUTPATIENT VISIT, NEW Advance Directives Directive Yes / No Effective Date File Name No Information Encounters Encounter Description Practice Location Reason(s) For Visit Diagnoses Date Provider Providers Copied on Encounter OFFICE VISIT, [facility], [address] [place], [place], [id number] , [place] tel:[phone] [facility] [place] Widespread pain (chief complaint) Pain in right kneePain in left ankle and joints of left footRadiculopa thy, lumbar regionMyalgia, other sitePostlamine ctomy syndrome, not elsewhere classifiedLong term (current) use of opiate analgesic 3 Mayra Rapp. [address] [facility] [address], [place], [place], [id number] , [place]. tel:[phone] anticoagulant prescriber: Aleksey Smith [address], [address]. tel:[phone] Provider: Too Del Cid, [address] [place], [address]. tel:[phone] OFFICE VISIT, [facility], [address], [place], [id number] , [place] tel:[phone] [facility] Widespread pain (chief complaint) Postlaminectom y syndrome, not elsewhere classifiedRadi culopathy, lumbar regionMyalgia, other sitePain in left ankle and joints of left footPain in right kneeLong term (current) use of opiate analgesic 3 Shay Morales. [address], [place], [id number] , [place]. tel:[phone] anticoagulant prescriber: Aleksey Smith [address] [place], [address]. tel:[phone] [facility], [address] [place] [address], [id number] , [place] tel:[phone] [facility] [place] pain (chief complaint) Postlaminectom y syndrome, not elsewhere classified 2 Indu Dalal. [address] [place], [place], [id number] , [place]. tel:[phone] Psych Dx Eval [facility], [address] [place] [address], [id number] , [place] tel:[phone] Telehealth Pain disorder with related psychological factorsPost-tr aumatic stress disorder, unspecified 2 Tess Cristiano Peg. [address] [place] [address], [id number] , [place]. tel:[phone] Referring Provider: Too Del Cid, [address] [place] [address], [address]. tel:[phone] Psych Dx Eval [facility], [address] [place] [address], [id number] , [place] tel:[phone] Telehealth Pain disorder with related psychological factorsAnxiety disorder 2 Tess Cristiano Peg. [address] [place] [address], [id number] , [place]. tel:[phone] OFFICE/OUTPAT IENT VISIT, [facility], [address] [place] [address], [id number] , [place] tel:[phone] [facility] [place] Widespread pain (chief complaint) Pain in right hipPain in right kneePain in left ankle and joints of left footRadiculopa thy, lumbar regionPostlami nectomy syndrome, not elsewhere classifiedLong term (current) use of opiate analgesicMyalg ia, other site 2 Heriberto Gage. [address] [place] [address], [id number] , [place]. tel:[phone] anticoagulant prescriber: Aleksey Smith, [address], [address]. tel:[phone] Provider: Too Del Cid, [address] [place] [address], [address]. tel:[phone] OFFICE VISIT, EST TELEMEDICINE [facility], [address] [place] [address], [id number] , [place] tel:[phone] [facility] Back Pain (chief complaint) Pain in right kneePain in left ankle and joints of left footRadiculopa thy, lumbar regionMyalgia, other sitePostlamine ctomy syndrome, not elsewhere classifiedLong term (current) use of opiate analgesicPain in right hip 2 Mayra Rapp. [address] [place] [address] [address], [place], [place], [id number] , [place]. tel:[phone] anticoagulant prescriber: Aleksey Smith, [address], [address]. tel:[phone] OFFICE VISIT, EST TELEMEDICINE [facility], [address] [place] [address], [id number] , [place] tel:[phone] [facility] Back Pain (chief complaint) Pain in right kneePain in left ankle and joints of left footRadiculopa thy, lumbar regionMyalgia, other sitePostlamine ctomy syndrome, not elsewhere classifiedLong term (current) use of opiate analgesic 2 Nunez Dionte. [address] [place] [address] [address], [place], [place], [id number] , [place]. tel:[phone] anticoagulant prescriber: Aleksey Smith [address], [address]. tel:[phone] OFFICE VISIT, EST TELEMEDICINE [facility], [address] [place] [address], [id number] , [place] tel:[phone] [facility] Back Pain (chief complaint) Pain in right kneePain in left ankle and joints of left footRadiculopa thy, lumbar regionMyalgia, other sitePostlamine ctomy syndrome, not elsewhere classifiedLong term (current) use of opiate analgesic 2 Mayra Rapp. [address] [place] [address] [address], [place], [id number] , [place]. tel:[phone] Referring Provider: Too Del Cid, [address] [place] [address], [address]. tel:[phone] OFFICE/OUTPAT IENT VISIT, [facility], [address] [place] [address], [id number] , [place] tel:[phone] [facility] Back Pain (chief complaint) Pain in right kneePain in right ankle and joints of right footPain in left ankle and joints of left footRadiculopa thy, lumbar regionMyalgia, other sitePostlamine ctomy syndrome, not elsewhere classifiedLong term (current) use of opiate analgesic 2 Mayra Rapp. [address] [place] [address] [address], [place], [id number] , [place]. [phone] Referring Provider: Too Del Cid, [address] [place] [address], [address]. tel:[phone] [facility], [address] [place] [address], [id number] , [place] tel:[phone] [facility] No Information 2 Will Too. [address] [place] [address], [id number] , [place]. [phone] OFFICE/OUTPAT IENT VISIT, [facility], [address] [place] [address], [id number] , [place] tel:[phone] [facility] Back Pain (chief complaint) Pain in right shoulderPain in right kneePain in right ankle and joints of right footPain in left ankle and joints of left footRadiculopa thy, lumbar regionMyalgia, other sitePostlamine ctomy syndrome, not elsewhere classifiedLong term (current) use of opiate analgesic 2 Mayra Rapp. [address] [place] [address] [address], [place], [id number] , [place]. [phone] Referring Provider: Too Del Cid, [address] [place] [address], [address]. tel:[phone] OFFICE/OUTPAT IENT VISIT, [facility], [address] [place] [address], [id number] , [place] tel:[phone] [facility] Back Pain (chief complaint) Chronic migraine without aura, intractable, without status migrainosusPai n in right shoulderPain in right kneePain in right ankle and joints of right footPain in left ankle and joints of left footRadiculopa thy, lumbar regionMyalgia, other sitePostlamine ctomy syndrome, not elsewhere classifiedLong term (current) use of opiate analgesicSpond ylosis without myelopathy or radiculopathy, lumbar region 2 Mayra Rapp. [address] [place] [address] [address], [place], [id number] , [place]. tel:[phone] Referring Provider: Too Del Cid, [address] [place] [address], [address]. tel:[phone] OFFICE VISIT, [facility], [address] [place] [address], [id number] , [place] [phone] [facility] Back Pain (chief complaint) Chronic migraine without aura, intractable, without status migrainosusPai n in right shoulderPain in right kneeRadiculopa thy, lumbar regionMyalgia, other sitePostlamine ctomy syndrome, not elsewhere classifiedLong term (current) use of opiate analgesicPain in left ankle and joints of left footPain in right ankle and joints of right foot 2 Mayra Rapp. [address] [place] [address] [address], [place], [id number] , [place]. tel:[phone] OFFICE/OUTPAT IENT VISIT, [facility], [address] [place] [address], [id number] , [place] [phone] [facility] Back Pain (chief complaint) Myalgia, other sitePain in right shoulderPain in right kneeRadiculopa thy, lumbar regionPostlami nectomy syndrome, not elsewhere classifiedLong term (current) use of opiate analgesicChron ic migraine without aura, intractable, without status migrainosus Aug- 2 Mayra Rapp. [address] [place] [address] [address], [place], [place], [id number] , [place]. tel:[phone] Referring Provider: Too Del Cid, [address] [place] [address], [address]. tel:[phone] [facility], [address] [place] [address], [id number] , [place] tel:[phone] [facility] [place] No Information Aug- 2 Will Too. [address] [place] [address], [id number] , [place]. tel:[phone] [facility], [address] [place] [address], [id number] , [place] tel:[phone] [facility] No Information Jul- 2 Mayra Rapp. [address] [place] [address] [address], [place], [place], [id number] , [place]. tel:[phone] Referring Provider: Too Del Cid, [address] [place] [address], [address]. tel:[phone] OFFICE/OUTPAT IENT VISIT, EST [facility], [address] [place] [address], [id number] , [place] tel:[phone] [facility] Back Pain (chief complaint) Radiculopathy, lumbar regionMyalgia, other sitePostlamine ctomy syndrome, not elsewhere classifiedLong term (current) use of opiate analgesicEncou nter for therapeutic drug level monitoringEnco unter for screening for other disorderPain in right shoulderPain in right knee Jul- 2 Mayra Rapp. [address] [place] [address] [address], [place], [place], [id number] , [place]. tel:[phone] Referring Provider: Caleb Ontiveros, [facility] [address] [facility] [place] [facility], [place], [address]. tel:[phone] OFFICE VISIT, [facility], [address] [place] [address], [id number] , [place] tel: [phone] [facility] Back Pain (chief complaint) Postlaminectom y syndrome, not elsewhere classifiedRadi culopathy, lumbar regionMyalgia, other siteLong term (current) use of opiate analgesic - 2 Mayra Rapp. [facility] [address], [place], [place], [id number] , [place]. tel:[phone] Referring Provider: Too Del Cid, [address] [place] [address], [address]. tel:[phone] OFFICE/OUTPAT IENT VISIT, [facility], [address] [place] [address], [id number] , [place] tel:[phone] [facility] Back Pain (chief complaint) Myalgia, other sitePostlamine ctomy syndrome, not elsewhere classifiedRadi culopathy, lumbar regionLong term (current) use of opiate analgesic 1 Mayra Rapp. [address] [place] [address] [address], [place], [place], [id number] , [place]. tel:[phone] Referring Provider: Too Del Cid, [address] [place] [address], [address]. tel:[phone] OFFICE VISIT, [facility], [address] [place] [address], [id number] , [place] tel:[phone] [facility] low back pain (chief complaint) Radiculopathy, lumbar regionMyalgia, other siteLong term (current) use of opiate analgesicPostl aminectomy syndrome, not elsewhere classified Nov- 1 Mayra Rapp. [address] [facility] [address], [place], [place], [id number] , [place]. tel:[phone] Referring Provider: Too Del Cid, [address] [place] [address], [address]. tel:[phone] [facility], [address] [place] [address], [id number] , [place] tel:[phone] [facility] Postlaminectom y syndrome, not elsewhere classified 1 Mayra Rapp. [address] [place] [address] [address], [place], [place], [id number] , [place]. tel:[phone] Referring Provider: Too Del Cid, [address] [place] [address], [address]. [phone] OFFICE/OUTPAT IENT VISIT, EST [facility], [address] [place] [address], [id number] , [place] tel:[phone] [facility] Widespread pain (chief complaint) Postlaminectom y syndrome, not elsewhere classifiedRadi culopathy, lumbar regionMyalgia, other siteLong term (current) use of opiate analgesic 1 Mayra Rapp. [address] [place] [address] [address], [place], [place], [id number] , [place]. tel:[phone] Referring Provider: Too Del Cid, [address] [place] [address], [address]. tel:[phone] [facility], [address] [place] [address], [id number] , [place] tel:[phone] [facility] No Information 1 Mayra Rapp. [address] [place] [address] [address], [place], [place], [id number] , [place]. tel:[phone] Referring Provider: Too Del Cid, [address] [place] [address], [address]. tel:[phone] OFFICE/OUTPAT IENT VISIT, [facility], [address] [place] [address], [id number] , [place] tel:[phone] [facility] Widespread pain (chief complaint) Postlaminectom y syndrome, not elsewhere classifiedRadi culopathy, lumbar regionMyalgia, other siteLong term (current) use of opiate analgesic 1 Mayra Rapp. [address] [place] [address] [address], [place], [place], [id number] , [place]. [phone] Referring Provider: Too Del Cid, [address] [place] [address], [address]. tel:[phone] OFFICE/OUTPAT IENT VISIT, [facility], [address] [place] [address], [id number] , [place] [phone] [facility] Widespread pain (chief complaint) Postlaminectom y syndrome, not elsewhere classifiedRadi culopathy, lumbar regionMyalgia, other siteLong term (current) use of opiate analgesic 1 Mayra Rapp. [address] [place] [address] [address], [place], [place], [id number] , [place]. [phone] Referring Provider: Too Del Cid, [address] [place] [address], [address]. tel:[phone] [place] [address] [facility] Clinic, [address] [place] [address], [id number] , [place] [phone] [facility] Postlaminectom y syndrome, not elsewhere classified 1 Mayra Rapp. [address] [place] [address] [address], [place], [place], [id number] , [place]. tel:[phone] Referring Provider: Too Del Cid, [address] [place] [address], [address]. tel:[phone] OFFICE/OUTPAT IENT VISIT, [facility], [address] [place] [address], [id number] , [place] tel:[phone] [facility] Widespread pain (chief complaint) Radiculopathy, lumbar regionMyalgia, other siteLong term (current) use of opiate analgesicPostl aminectomy syndrome, not elsewhere classified 1 Mayra Rapp. [address] [place] [address] [address], [place], [id number] , [place]. tel:[phone] Referring Provider: Too Del Cid, [address] [place] [address], [address]. tel:[phone] [facility], [address] [place] [address], [id number] , [place] tel:[phone] [facility] Postlaminectom y syndrome, not elsewhere classified Apr-0 1 Nunez Dionte. [address] [place] [address] [address], [place], [place], [id number] , [place]. tel:[phone] Referring Provider: Too Del Cid, [address] [place] [address], [address]. [phone] OFFICE/OUTPAT IENT VISIT, [facility], [address] [place] [address], [id number] , [place] tel:[phone] [facility] Widespread pain (chief complaint) Postlaminectom y syndrome, not elsewhere classifiedRadi culopathy, lumbar regionMyalgia, other siteLong term (current) use of opiate analgesicEncou nter for screening for other disorder Apr-0 1 Mayra Rapp. [address] [place] [address] [address], [place], [place], [id number] , [place]. tel:[phone] Referring Provider: Too Del Cid, [address] [place] [address], [address]. [phone] OFFICE/OUTPAT IENT VISIT, [facility], [address] [place] [address], [id number] , [place] tel:[phone] [facility] Widespread pain (chief complaint) Postlaminectom y syndrome, not elsewhere classifiedRadi culopathy, lumbar regionMyalgia, other siteLong term (current) use of opiate analgesic Mar-0 1 Mayra Rapp. [address] [place] [address] [address], [place], [place], [id number] , [place]. tel:[phone] Referring Provider: Too Del Cid, [address] [place] [address], [address]. tel:[phone] [facility], [address] [place] [address], [id number] , [place] tel: [phone] [facility] [place] Postlaminectom y syndrome, not elsewhere classified 1 Mayra Rapp. [address] [place] [address] [address], [place], [place], [id number] , [place]. tel:[phone] Referring Provider: Too Del Cid, [address] [place] [address], [address]. tel:[phone] [place] [address] [facility], [address] [place] [address], [id number] , [place] tel:[phone] [facility] [place] No Information 1 Mayra Rapp. [address] [place] [address], [place], [place], [id number] , [place]. tel:[phone] OFFICE/OUTPAT IENT VISIT, EST [facility], [address] [place] [address], [id number] , [place] tel: [phone] [facility] [place] Widespread pain (chief complaint) Postlaminectom y syndrome, not elsewhere classifiedRadi culopathy, lumbar regionMyalgia, other siteLong term (current) use of opiate analgesicPain in right kneeChronic pain syndrome 1 Mayra Rapp. [address] [place] [address] [address], [place], [place], [id number] , [place]. tel:[phone] Referring Provider: Too Del Cid, [address] [place] [address], [address]. tel:[phone] OFFICE VISIT, EST TELEMEDICINE [facility], [address] [place] [address], [id number] , [place] tel: [phone] [facility] [place] Widespread pain (chief complaint) Postlaminectom y syndrome, not elsewhere classifiedRadi culopathy, lumbar regionMyalgia, other siteLong term (current) use of opiate analgesicPain in right kneeChronic pain syndrome 0 Mayra Rapp. [address] [place] [address] [address], [place], [place], [id number] , [place]. tel:[phone] Referring Provider: Too Del Cid, [address] [place] [address], [address]. tel:[phone] [facility], [address] [place] [address], [id number] , [place] tel:[phone] [facility] Postlaminectom y syndrome, not elsewhere classified 0 Mayra Rapp. [address] [place] [address] [address], [place], [place], [id number] , [place]. tel:[phone] Referring Provider: Too Del Cid, [address] [place] [address], [address]. tel:[phone] [facility], [address] [place] [address], [id number] , [place] tel:[phone] [facility] Postlaminectom y syndrome, not elsewhere classified 0 Emiliano Martinez. [address] [place] [address], [id number] , [place]. tel:[phone] Referring Provider: Too Del Cid, [address] [place] [address], [address]. tel:[phone] OFFICE VISIT, EST TELEMEDICINE [facility], [address] [place] [address], [id number] , [place] tel:[phone] [facility] Widespread pain (chief complaint) Radiculopathy, lumbar regionMyalgia, other siteLong term (current) use of opiate analgesicPain in right kneeChronic pain syndromePostla minectomy syndrome, not elsewhere classified 0 Mayra Rapp. [address] [place] [address] [address], [place], [place], [id number] , [place]. tel:[phone] Referring Provider: Too Del Cid, [address] [place] [address], [address]. tel:[phone] OFFICE/OUTPAT IENT VISIT, EST [facility], [address] [place] [address], [id number] , [place] tel:[phone] [facility] [place] Widespread pain (chief complaint) Myalgia, other siteRadiculopa thy, lumbar regionPostlami nectomy syndrome, not elsewhere classifiedLong term (current) use of opiate analgesicPain in right kneeChronic pain syndrome 0 Nunez Dionte. [address] [facility] [address], [place], [place], [id number] , [place]. tel:[phone] Referring Provider: Too Del Cid, [address] [place] [address], [address]. tel:[phone] [facility], [address] [place] [address], [id number] , [place] tel:[phone] [facility] Postlaminectom y syndrome, not elsewhere classifiedMyal isabel, other site 0 Nyjoe Hays. [address] [facility] [address], [place], [place], [id number] , [place]. tel:[phone] Referring Provider: Too Del Cid, [address] [place] [address], [address]. tel:[phone] [facility], [address] [place] [address], [id number] , [place] tel:[phone] [facility] Radiculopathy, lumbar regionPostlami nectomy syndrome, not elsewhere classified 0 Mayra Rapp. [address] [facility] [address], [place], [place], [id number] , [place]. tel:[phone] Referring Provider: Too Del Cid, [address] [place] [address], [address]. tel:[phone] [facility], [address] [place] [address], [id number] , [place] tel:[phone] [facility] No Information Oct-0 6-202 0 Will Too. [address] [place] [address], [id number] , [place]. [phone] Referring Provider: Too Del Cid, [address] [place] [address], [address]. tel:[phone] OFFICE VISIT, EST TELEMEDICINE [facility], [address] [place] [address], [id number] , [place] tel:[phone] [facility] [place] Widespread pain (chief complaint) Radiculopathy, lumbar regionLong term (current) use of opiate analgesicMyalg ia, other sitePain in right kneeChronic pain syndromePostla minectomy syndrome, not elsewhere classified Sep-2 5-202 0 Mayra Rapp. [facility] [address], [place], [place], [id number] , [place]. [phone] Referring Provider: Too Del Cid, [address] [place] [address], [address]. tel:[phone] [facility], [address] [place] [address], [id number] , [place] [phone] [facility] Radiculopathy, lumbar region Sep-0 -202 0 Cummings Michelle. [address] [place] [address], [id number] , [place]. [phone] Referring Provider: Too Del Cid, [address] [place] [address], [address]. tel:[phone] [facility], [address] [place] [address], [id number] , [place] tel:[phone] [facility] No Information Sep-0 3-202 0 Cummings Michelle. [address] [place] [address], [id number] , [place]. [phone] Referring Provider: Too Del Cid, [address] [place] [address], [address]. tel:[phone] OFFICE VISIT, EST TELEMEDICINE [facility], [address] [place] [address], [id number] , [place] tel: [phone] [facility] [place] Widespread pain (chief complaint) Postlaminectom y syndrome, not elsewhere classifiedLong term (current) use of opiate analgesicRadic ulopathy, lumbar regionMyalgia, other sitePain in right kneeChronic pain syndrome 0 Nunez Dionte. [address] [place] [address] [address], [place], [id number] , [place]. tel:[phone] Referring Provider: Too Del Cid, [address] [place] [address], [address]. tel:[phone] [facility], [address] [place] [address], [id number] , [place] tel: [phone] [facility] [place] Postlaminectom y syndrome, not elsewhere classified 0 Nunez Dionte. [address] [place] [address] [address], [facility], [place], [id number] , [place]. tel:[phone] OFFICE VISIT, EST TELEMEDICINE [facility], [address] [place] [address], [id number] , [place] tel: [phone] [facility] [place] Widespread pain (chief complaint) Pain in right kneeChronic pain syndromePostla minectomy syndrome, not elsewhere classifiedLong term (current) use of opiate analgesicRadic ulopathy, lumbar regionMyalgia, other site 0 Nunez Dionte. [address] [place] [address] 100, [facility], [place], [id number] , [place]. tel:[phone] Referring Provider: Too Del Cid, [address] [place] [address], [address]. tel:[phone] OFFICE VISIT, EST TELEMEDICINE [facility], [address] [place] [address], [id number] , [place] tel:[phone] Telehealth Widespread pain (chief complaint) Pain in right kneeChronic pain syndromePostla minectomy syndrome, not elsewhere classifiedLong term (current) use of opiate analgesicRadic ulopathy, lumbar regionMyalgia, other site 0 Mayra Rapp. [address] [place] [address] [address], [place], [place], [id number] , [place]. tel:[phone] Referring Provider: Too Del Cid, [address] [place] [address], [address]. tel:[phone] OFFICE VISIT, EST TELEMEDICINE [facility], [address] [place] [address], [id number] , [place] tel:[phone] Tele[facility] Widespread pain (chief complaint) Postlaminectom y syndrome, not elsewhere classifiedPain in right kneeChronic pain syndromeLong term (current) use of opiate analgesicRadic ulopathy, lumbar regionMyalgia, other site 0 Mayra Rapp. [address] [place] [address] [address], [place], [place], [id number] , [place]. tel:[phone] Referring Provider: Too Del Cid, [address] [place] [address], [address]. tel:[phone] Psych Dx Eval [facility], [address] [place] [address], [id number] , [place] tel:[phone] Telehealth Pain disorder with related psychological factorsPost-tr aumatic stress disorder, unspecified 0 Tess Aguilar. [address] [place] [address], [id number] , [place]. [phone] Referring Provider: Too Del Cid, [address] [place] [address], [address]. tel:[phone] OFFICE VISIT, EST TELEMEDICINE [facility], [address] [place] [address], [id number] , [place] tel:[phone] Telehealth Widespread pain (chief complaint) Chronic pain syndromePain in right kneePostlamine ctomy syndrome, not elsewhere classifiedLong term (current) use of opiate analgesicMyalg ia, other siteRadiculopa thy, lumbar region 0 Mayra Rapp. [address] [place] [address] [address], [place], [place], [id number] , [place]. tel:[phone] Referring Provider: Too Del Cid, [address] [place] [address], [address]. tel:[phone] OFFICE VISIT, EST [facility], [address] [place] [address], [id number] , [place] tel: [phone] Telehealth Widespread pain (chief complaint) Chronic pain syndromePain in right kneePostlamine ctomy syndrome, not elsewhere classifiedLong term (current) use of opiate analgesic Amos-0 2- 0 Nunez Dionte. [address] [place] [address] [address], [place], [place], [id number] , [place]. tel:[phone] Referring Provider: Too Del Cid, [address] [place] [address], [address]. tel:[phone] OFFICE VISIT, [facility], [address] [place] [address], [id number] , [place] tel: [phone] Telehealth Widespread pain (chief complaint) Postlaminectom y syndrome, not elsewhere classifiedPain in right kneeChronic pain syndromeLong term (current) use of opiate analgesic September- 0 Nunez Dionte. [address] [place] [address] [address], [place], [place], [id number] , [place]. tel: [phone] Referring Provider: Too Del Cid, [address] [place] [address], [address]. tel:[phone] OFFICE VISIT, [facility], [address] [place] [address], [id number] , [place] tel: [phone] Telehealth Widespread pain (chief complaint) Postlaminectom y syndrome, not elsewhere classifiedPain in right kneeChronic pain syndromeLong term (current) use of opiate analgesicPain in left hip September-0 0 Nunez Dionte. [address] [place] [address] [address], [place], [place], [id number] , [place]. tel: [phone] OFFICE VISIT, EST [facility], [address] [place] [address], [id number] , [place] tel:[phone] Telehealth Widespread pain (chief complaint) Postlaminectom y syndrome, not elsewhere classifiedPain in right kneeChronic pain syndromeLong term (current) use of opiate analgesic Apr-2 0-202 0 Mayra Rapp. [address] [facility] [address], [place], [place], [id number] , [place]. tel:[phone] Referring Provider: Too Del Cid, [address] [place] [address], [address]. tel:[phone] OFFICE VISIT, EST TELEMEDICINE [facility], [address] [place] [address], [id number] , [place] tel:[phone] Telehealth Widespread pain (chief complaint) Postlaminectom y syndrome, not elsewhere classifiedPain in right kneeChronic pain syndromeLong term (current) use of opiate analgesic Apr-0 2-202 0 Mayra Rapp. [address] [place] [address] [address], [place], [place], [id number] , [place]. tel:[phone] Referring Provider: Too Del Cid, [address] [place] [address], [address]. 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 [address] [place] [address] [address], [place], [place], [id number] , [place]. tel:[phone] Referring Provider: Too Del Cid, [address] [place] [address], [address]. tel:[phone] [facility], [address] [place] [address], [id number] , [place] [phone] [facility] [place] No Information Jul- 0- 0 Mayra Rapp. [address] [place] [address] [address], [facility], [place], [id number] , [place]. tel:[phone] OFFICE/OUTPAT IENT VISIT, [facility], [address] [place], [place], [id number] , [place] tel:[phone] [facility] Widespread pain (chief complaint) Chronic pain syndromePostla minectomy syndrome, not elsewhere classifiedPain in right kneeLong term (current) use of opiate analgesic Jul-0 - 0 Mayra Rapp. 1455 [facility] [address], [place], [place], [id number] , [place]. tel:[phone] Referring Provider: Too Del Cid, [address] [place], [address]. tel:[phone] OFFICE/OUTPAT IENT VISIT, [facility], [address] [place], [place], [id number] , [place] tel:[phone] [facility] Widespread pain (chief complaint) Chronic pain syndromePostla minectomy syndrome, not elsewhere classifiedMyal isabel, other sitePain in right kneeEncounter for therapeutic drug level monitoringLong term (current) use of opiate analgesic 2 0 Nunez Dionte. 14[address] [facility] [address], [place], [place], [id number] , [place]. tel: [phone] Referring Provider: Caleb Ontiveros [facility] [address] [facility] [place] [facility], [place], [address]. tel:[phone] Family History Family Member Type Diagnosis Age At Onset No Information Payers Payer name Insurance type Covered democrat ID Authoriza tiada(s) [employer] MA [facility] Replacement [id number] Social History Type Description Quantity Date Captured [...] Goal AST (SGOT). Due on due Goal HOT DIP TINNING SUPERVISOR Scanned. Due on due Goal FISH STRINGER ASSEMBLER Paperwork. Due on due Goal Creatinine. Due [...] due Goal FIT. Due on due Goal FISH STRINGER ASSEMBLER Paperwork. Due on due Goal Medication Recon ciliation. Due on due Goal Lipid panel. Due on due Goal OARS. Due on due Goal HOT DIP TINNING SUPERVISOR Scanned. Due on due Goal ALT (SGPT). [...] Goal ALT (SGPT). Due on due Goal Lipid panel. Due on due Goal Medication Recon ciliation. Due on due Goal OARS. Due on due Goal FISH STRINGER ASSEMBLER Paperwork. Due on due Goal Creatinine. Due on due Goal UDT. Due on due Goal Order Annual PT. Due on due Goal AST (SGOT). Due on due Goal HOT DIP TINNING SUPERVISOR Scanned. Due on due Goal Unhealthy drug [...] due Goal OARS. Due on due Goal HOT DIP TINNING SUPERVISOR Scanned. Due on due Goal Order Annual PT. Due on due Goal AST (SGOT). Due on due Goal ALT (SGPT). Due on due Goal FISH STRINGER ASSEMBLER Paperwork. Due on due Goal UDT. Due [...] C scre ening. Due on due Goal Weight. Due on d ue Goal CT-Colonography. Due on due Goal HPV. Due on due Goal Tobacco Use. Due on due Goal HOT DIP TINNING SUPERVISOR Scanned. Due on due Goal Zoster vaccine [...] u se screening. Due on due Goal Creatinine. Due on due Goal OARS. Due on due Goal AST (SGOT). Due on due Goal Order Annual PT. Due on due Goal UDT. Due on due Goal FISH STRINGER ASSEMBLER Paperwork. Due on due Goal ALT (SGPT). Due on due Goal Review Allergy L ist. Due on due Goal Update Social Hi story. Due on due Goal AST (SGOT). Due on due Goal Hepatitis C scre ening. Due on due Goal Lipid panel. Due on due Goal UDT. Due on due Goal Creatinine. Due on due Goal FISH STRINGER ASSEMBLER Paperwork. Due on due Goal ALT (SGPT). Due on due Goal Order Annual PT. Due on due Goal HOT DIP TINNING SUPERVISOR Scanned. Due on due Goal OARS. Due [...] due Goal FIT. Due on due Goal Creatinine. Due on due Goal Zoster vaccine ( 1st). Due on due Goal Tobacco Use. Due on due Goal HOT DIP TINNING SUPERVISOR Scanned. Due on due Goal FISH STRINGER ASSEMBLER Paperwork. Due on due Goal OARS. Due [...] due Goal UDT. Due on due Goal HOT DIP TINNING SUPERVISOR Scanned. Due on due Goal Creatinine. Due on due Goal ALT (SGPT). Due on due Goal Order Annual PT. Due on due Goal FISH STRINGER ASSEMBLER Paperwork. Due on due Goal OARS. Due [...] due Goal Creatinine. Due on due Goal HOT DIP TINNING SUPERVISOR Scanned. Due on due Goal OARS. Due on due Goal FIT-DNA. Due on due Goal HPV. Due on due Goal FIT. Due on due Goal Tobacco Use. Due on due Goal Lipid panel. Due on due Goal Weight. Due on d ue Goal Hepatitis C scre ening. Due on due Goal Zoster vaccine ( 1st). Due on due Goal Update Social Hi story. Due on due Goal AST (SGOT). Due on due Goal ALT (SGPT). Due on due Goal Order Annual PT. Due on due Goal FISH STRINGER ASSEMBLER Paperwork. Due on due Goal Unhealthy drug u se screening. Due on due Goal Medication Recon ciliation. Due on due Goal CT-Colonography. Due on due Goal PHQ-9. Due on du e Goal HOT DIP TINNING SUPERVISOR Scanned. Due on due Goal ALT (SGPT). Due on due Goal UDT. Due on due Goal AST (SGOT). Due on due Goal FISH STRINGER ASSEMBLER Paperwork. Due on due Goal Order Annual PT. Due on due Goal Creatinine. Due on due Goal OARS. Due on due Goal Lipid panel. Due [...] u se screening. Due on due Goal FISH STRINGER ASSEMBLER Paperwork. Due on due Goal AST (SGOT). Due on due Goal ALT (SGPT). Due on due Goal UDT. Due on due Goal OARS. Due on due Goal HOT DIP TINNING SUPERVISOR Scanned. Due on due Goal Creatinine. Due [...] ue Goal Creatinine. Due on due Goal Order Annual PT. Due on due Goal HOT DIP TINNING SUPERVISOR Scanned. Due on due Goal FISH STRINGER ASSEMBLER Paperwork. Due on due Goal ALT (SGPT). [...] Medication Recon ciliation. Due on due Goal FISH STRINGER ASSEMBLER Paperwork. Due on due Goal Creatinine. Due on due Goal AST (SGOT). Due on due Goal OARS. Due on due Goal ALT (SGPT). Due on due Goal UDT. Due on due Goal HOT DIP TINNING SUPERVISOR Scanned. Due on 022 due Goal Order [...] vaccine ( 1st). Due on due Goal FISH STRINGER ASSEMBLER Paperwork. Due on due Goal UDT. Due on due Goal HOT DIP TINNING SUPERVISOR Scanned. Due on due Goal Order Annual [...] due Goal UDT. Due on due Goal FISH STRINGER ASSEMBLER Paperwork. Due on due Goal OARS. Due on due Goal Creatinine. Due on due Goal HOT DIP TINNING SUPERVISOR Scanned. Due on due Goal Order Annual PT. Due on due Goal ALT (SGPT). Due on due Goal FIT-DNA. Due on due Goal Weight. Due on d ue Goal CT-Colonography. Due on due Goal Lipid panel. Due on due Goal Hepatitis C scre ening. Due on due Goal FIT. Due on due Goal Medication Recon ciliation. Due on due Goal FISH STRINGER ASSEMBLER Paperwork. Due on due Goal ALT (SGPT). [...] Order Annual PT. Due on due Goal HOT DIP TINNING SUPERVISOR Scanned. Due on due Goal UDT. Due [...] Goal ALT (SGPT). Due on due Goal HOT DIP TINNING SUPERVISOR Scanned. Due on due Goal Creatinine. Due on due Goal FISH STRINGER ASSEMBLER Paperwork. Due on due Goal UDT. Due [...] Goal PHQ-9. Due on du e Goal HOT DIP TINNING SUPERVISOR Scanned. Due on due Goal Unhealthy drug u se screening. Due on due Goal Zoster vaccine ( 1st). Due on due Goal OARS. Due on due Goal Creatinine. Due on due Goal FISH STRINGER ASSEMBLER Paperwork. Due on due Goal ALT (SGPT). [...] Order Annual PT. Due on due Goal FISH STRINGER ASSEMBLER Paperwork. Due on due Goal AST (SGOT). Due on due Goal HOT DIP TINNING SUPERVISOR Scanned. Due on due Goal ALT (SGPT). [...] Goal ALT (SGPT). Due on due Goal HOT DIP TINNING SUPERVISOR Scanned. Due on due Goal AST (SGOT). Due on due Goal FISH STRINGER ASSEMBLER Paperwork. Due on due Goal Order Annual PT. Due on due Goal UDT. Due on due Goal OARS. Due on due Goal Creatinine. Due on due Goal Order Annual PT. Due on due Goal FISH STRINGER ASSEMBLER Paperwork. Due on due Goal AST (SGOT). Due on due Goal HOT DIP TINNING SUPERVISOR Scanned. Due on due Goal ALT (SGPT). [...] Order Annual PT. Due on due Goal FISH STRINGER ASSEMBLER Paperwork. Due on due Goal AST (SGOT). Due on due Goal HOT DIP TINNING SUPERVISOR Scanned. Due on due Goal ALT (SGPT). Due on due Goal PHQ-9. Due on du e Goal Height. Due on d ue Goal UDT. Due on due Goal Review Allergy L ist. Due on due Goal Weight. Due on d ue Goal Medication Recon ciliation. Due on due Goal Update Social Hi story. Due on due Goal Tobacco Use. Due on due Goal HOT DIP TINNING SUPERVISOR Scanned. Due on due Goal ALT (SGPT). [...] Order Annual PT. Due on due Goal FISH STRINGER ASSEMBLER Paperwork. Due on due Goal AST (SGOT). Due on due Goal UDT. Due on due Goal OARS. Due on due Goal Creatinine. Due on due Goal Order Annual PT. Due on due Goal FISH STRINGER ASSEMBLER Paperwork. Due on due Goal AST (SGOT). Due on due Goal HOT DIP TINNING SUPERVISOR Scanned. Due on due Goal ALT (SGPT). Due on due Goal PHQ-9. Due on du e Goal Height. Due on d ue Goal Review Allergy L ist. Due on due Goal Weight. Due on d ue Goal Medication Recon ciliation. Due on due Goal Update Social Hi story. Due on due Goal Tobacco Use. Due on due Goal HOT DIP TINNING SUPERVISOR Scanned. Due on due Goal UDT. Due on due Goal OARS. Due on due Goal Creatinine. Due on due Goal Order Annual PT. Due on due Goal FISH STRINGER ASSEMBLER Paperwork. Due on due Goal AST (SGOT). [...] Order Annual PT. Due on due Goal FISH STRINGER ASSEMBLER Paperwork. Due on due Goal AST (SGOT). Due on due Goal HOT DIP TINNING SUPERVISOR Scanned. Due on due Goal OARS. Due on due Goal Creatinine. Due on due Goal Order Annual PT. Due on due Goal FISH STRINGER ASSEMBLER Paperwork. Due on due Goal AST (SGOT). Due on due Goal HOT DIP TINNING SUPERVISOR Scanned. Due on due Goal ALT (SGPT). Due on due Goal UDT. Due on due Goal PHQ-9. Due on du e Goal Height. Due on d ue Goal Review Allergy L ist. Due on due Goal Weight. Due on d ue Goal Medication Recon ciliation. Due on due Goal Update Social Hi story. Due on due Goal Tobacco Use. Due on due Goal HOT DIP TINNING SUPERVISOR Scanned. Due on due Goal ALT (SGPT). [...] Goal AST (SGOT). Due on due Goal FISH STRINGER ASSEMBLER Paperwork. Due on due Goal Order Annual PT. Due on due Goal Creatinine. Due on due Goal OARS. Due on due Goal Tobacco cessation counseling completed Referral Ordered: [facility] -Family Medicine (related to Radiculopathy, lumbar region) ordered Referral Ordered: Azael Regan -Allopathic & Osteopathic Physicians : Family Medicine (related to Radiculopathy, lumbar region) ordered Referral Referred To: [facility] [address] [place], [address] [phone] Ordered: Referrals: Family Medicine. [facility] ordered Referral Ordered: X-RAY EXAM OF HIPS LT hip ordered Referral Ordered: Azael Regan -[facility] Phys[facility] : Family Medicine (related to Postlaminectomy syndrome, not elsewhere classified) ordered Referral Referred To: Azael Regan [facility]
[address] [place], [address] [phone] Ordered: Referrals: Allopathic & Osteopathic Physicians : [...] assessment:Difficulty reaching, lifting, carrying, pushing, pulling, and tuck pointer is hopeful that the SCS device will [...] discomfort. Patient was meeting with Jose from [facility] today and expressed her frustration with charging. [...] current medication regimen. No other concerns today. Comments: Brandee is here for phone follow [...] incontinence and diarrhea. Comments: Brandee is here for follow-up and medication management. Her current medication regimen offers greater than 50% pain relief. Her medications are currently managed by her living facility.S/p right TKA on 07/09/[address] Camara from [facility]. HOT DIP TINNING SUPERVISOR was reviewed and shows pt was rx'ed 2mg Dilaudid max 7/day for post op pain. She was rx'ed #49tabs on 08/23/21, #49tabs on 08/19/21 and #49 tabs on 08/08/21. Her chronic dose at [facility] is #5tabs a day, patient [...] rescheduled for 07/09/[address] Camara from [facility]. Surgeon will manage post-op pain. Lower [...] for [address] Lino or from [facility]. It was canceled due to no [...] scheduled R TKA with Dr. Camara through [facility]. Discussed post-op pain management. Also continues [...] order. She looks forward to reprogramming with [employer] today as she has had questions about [...] Pain has been worse. She went to [facility] two weeks ago with atrial fibrillation. She completed work-up and was put on warfarin. She met with her orthopedist at [facility] regarding her R knee pain. Orthopedist recommended [...] month due to visiting her daughter in [place]. She realized she can not walk long distances with her walker. Had a injection scheduled with [facility] but [employer] service could not provide her the ride from [place]. She is excited about the recently approved [...] trial.She had a recent lumbar MRI with [facility] and per patient the imaging showed herniation and disc slippage at multiple levels. She said [facility] recommend a injection. With previous injections, she explains having a reaction to the procedure. She scheduled the injection on 12/[address] estrella at [facility].Reports current medication regimen provides at least [...] upcoming appt. with a back surgeon through [facility] next week to be evaluated. Reports [...] over.Notes that she followed up with her window trimmer apprentice yesterday. States that she has arrythmia although [...] trial. Reports she presented to [facility] and dropped off her psych [...] and she is also unable to attend career coach which she significantly benefits from. She still has routine foot injections with Dr. Caleb Ontievros. She inquires if she can temporarily increase [...] her medication. Medications are managed by [facility]. Denies side effects.Patient is not accompanied [...] has started physical therapy at [facility] and intends on continuing twice weekly. She [...] been recommended for possible R TKA at [facility], but no date has been scheduled. States her pain causes her lots of anxiety because she has tried many treatments without significant benefit. She is currently enrolled in PT at [facility] in [facility]. She also regularly attends the chiropractor. [...] recommended therapies and would like [facility] to assume management of pain care. Functional Status Date Functional Assessmen t No Information Instructions Date Instruction Additional Infor mation No Information Assessments Type Assessment Date assessment Pain in right knee impression S/p right TKA on 12/[address] Camara from [facility]. Has been participating in PT with good benefit. Pain has been worse since [facility] assessment Pain in left ankle and joints of left foot impression Worsening pain in th e left ankle and is considering an ankle fusion assessment Radiculopathy, lumbar region Jul impression Lower back pain with radiation into her BLE, continues to worsen since [facility] assessment Myalgia, other site impression TPIs in the past wit hout benefit. PO muscle relaxers provide moderate relief assessment Postlaminectomy syndrome, not el sewhere classified impression Hx of L4-S1 fusion. She has an SCS implant but may be interested in an explant assessment skilled nursing (current) use of opiat e analgesic impression The medication relie ves at least 60% of the pain, does not cause significant side effects, increases the patient's daily activity level. Medication managed by facility.Most of today's visit was spent discussing the patient's recent discharge from the clinic d/t her inappropriate behavior and language used toward staff. Patient expresses frustrations with termination. FISH STRINGER ASSEMBLER terminated.Most recent UDT results reviewed and appropriate. Not appropriate to continue opioid therapy d/t issues with inappropriate behavior. Current MME 30 Mental Status Date Cognitive Assessment Orientation - [place] ed to time, place, person, situation. Patient Care Teams Name Effective Dates (start - stop) Status Members No Information
== END 2023-02-04 04:41 | disposition home or self-care (01) ==
PROVIDERS: PCP Internal Medicine; Visit Provider Family Medicine
DX: Z99.3 Dependence on wheelchair (principal)
CPT/HCPCS: A0425; A0428

== ENCOUNTER 2023-02-06 12:15 | Outpatient (CLI) | payer OTHER, SELFPAY | END 2023-02-06 12:16 | disposition home or self-care (01) | PROVIDERS: PCP Internal Medicine; Visit Provider Family Medicine | DX: R10.9 Unspecified abdominal pain (principal) | CPT/HCPCS: A0425; A0427 ==

== ENCOUNTER 2023-02-06 12:49 | Observation (INO) | payer OTHER, SELFPAY ==
[2023-02-06] VITALS (14 sets, daily range): BP systolic 118–141; BP diastolic 84–100; PULSE 82–130; RESP 14–22; TEMP 36.4–36.6; O2SAT 89–98; BMI 32.9; BMI 39.3
--- NOTE | 2023-02-06 13:29 | ED.NURSE ---
Per report from Dyana KELLY; Pt states she feels nobody cares about her and that she is ready to walk out. This was after pt was assisted to the bathroom and proceeded to urinate all over the ER bathroom floor. UA and U Tox was collected from this urine. Vitals repeated by LETICIA. Dr. Troy notified of pt's increasing behavior. Security present. Video monitoring in place for patient and staff safety at this time.
[2023-02-06 13:33] LABS: Appearance Urine Clear (Clear); Bilirubin Urine Negative (Negative); Blood Urine Negative (Negative); Color Urine Yellow (Yellow); Glucose Urine Negative (Negative); Ketones Urine Negative (Negative); Leukocyte Esterase Urine Negative (Negative); Nitrite Urine Negative (Negative); Protein Urine Negative (Negative); Specific Gravity Urine 1.015 (1.000-1.030); Urobilinogen Urine 0.2 (0.2-1.0)
[2023-02-06 13:40] LABS: Amphetamine Screen Urine Negative (Negative); Barbiturate Screen Urine Negative (Negative); Benzodiazepines Screen Urine Negative (Negative); Cannabinoid Screen Urine Negative (Negative); Cocaine Screen Urine Negative (Negative); Methadone Screen Urine Negative (Negative); Methamphetamines Screen Urine Negative (Negative); Opiate Screen Urine POSITIVE (Negative); Oxycodone Screen Urine Negative (Negative); Phencyclidine Screen Urine Negative (Negative); Tricyclic Antidepressant Urine Negative (Negative)
[2023-02-06 14:00] LABS: RBC Urine 0-2 (0-2); Squamous Epithelial Cell Urine Few (None-Few); WBC Urine 0-2 (0-5)
--- NOTE | 2023-02-06 14:00 | CRLHL7_ITS ---
For Patients: As a result of the Century Cures Act, medical imaging exams and procedure reports are released immediately into your electronic medical record. You may view this report before your referring provider. If you have questions, please contact your health care provider. Indication: Mid abdominal Pain Technique: Supine view abdomen was obtained. Comparison: CT abdomen and pelvis February 04, 2023 Findings: There is a non-obstructive, non-specific bowel gas pattern. There is a moderate amount of stool seen throughout the colon. There is no pathologic calculus. Postoperative changes of the lumbar spine and bilateral hips are appreciated Surgical clips are seen scattered over the abdomen with prior ventral hernia repair. Impression: Nonspecific, nonobstructive bowel gas pattern. Mild to moderate stool. No evidence of pathologic calculus. Dictated by Pb Shaw MD @ 02/06/2023 3:51:24 PM (Electronically Signed)
[2023-02-06] MEDS: droperidoL 2.5 MG/ML inj 0.625 MG IV (14:17)
[2023-02-06] MEDS: 0.9 % SODIUM CHLORIDE 1000 ml 1,000 ML 1200 ML IV (14:18)
--- NOTE | 2023-02-06 14:53 | ED_ITS ---
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 (0.00-0.50) K/uL Baso # (Auto) (0.00-0.30) K/uL Abs Immat Gran (auto) (0.00-0.30) K/uL Imm/Tot Granulo (auto) % INR (0.91-1.10) Sodium (135-149) mmol/L Potassium Cancelled (3.6-5.1) mmol/L Chloride 107 Cancelled (96-114) mmol/L Carbon Dioxide 28 Cancelled (20-32) mmol/L Anion Gap 7 (7-15) mEq/L BUN (7-30) mg/dL Creatinine (0.5-1.5) mg/dL Estimated Creat Clear Estimated GFR ml/min Glucose (60-115) mg/dL Calcium (8.4-10.6) mg/dL Magnesium (1.5-2.6) mg/dL Total Bilirubin (0.1-1.5) mg/dL Direct Bilirubin (0.0-0.5) mg/dL AST (12-35) U/L ALT (4-35) U/L Alkaline Phosphatase (40-150) U/L C-Reactive Protein (0.5-1.0) mg/dL Total Protein (6.0-8.3) g/dL Albumin (3.3-5.0) g/dL Lipase (23-300) U/L Urine Color (Yellow) Urine Appearance (Clear) Urine pH (5.0-8.5) Ur Specific [place] (1.000-1.030) Urine Protein (Negative) Urine Glucose (UA) (Negative) Urine Ketones (Negative) Urine Blood (Negative) Urine Nitrite (Negative) Urine Bilirubin (Negative) Urine Urobilinogen (0.2-1.0) Ur Leukocyte Esterase (Negative) Urine RBC (0-2) Urine WBC (0-5) Ur Squamous Epith Cells (None-Few) Urine Bacteria (None) Digoxin (0.8-2.0) ng/mL Urine Opiates Screen (Negative) Ur Oxycodone Screen (Negative) Urine Methadone Screen (Negative) Ur Propoxyphene Screen (Negative) Ur Barbiturates Screen (Negative) U Tricyclic Antidepress (Negative) Ur Phencyclidine Scrn (Negative) Ur Amphetamines Screen (Negative) U Methamphetamines Scrn (Negative) U Benzodiazepines Scrn (Negative) Urine Cocaine Screen (Negative) U Marijuana (THC) Screen (Negative) Ur Drug Screen Comment 02/06/23 02/06/23 02/06/23 Range/Units 17:24 17:24 17:24 WBC (4.50-11.00) K/uL RBC (4.00-5.20) m/uL Hgb (12.0-16.0) gm/dL Hct (33.0-51.0) % MCV (80-100) fL MCH (26-34) pg MCHC (32-36) gm/dL RDW Coeff of Fito (11.5-15.5) % Plt Count (140-440) K/uL Neut % (Auto) (42.0-72.0) % Lymph % (Auto) (20-44) % [place] % (Auto) (0.0-11.0) % Eos % (Auto) (0.0-7.0) % Baso % (Auto) (0.0-3.0) % Neut # (Auto) (1.7-7.0) K/uL Lymph # (Auto) (0.90-2.90) K/uL [place] # (Auto) (0.00-0.90) K/UL Eos # (Auto) (0.00-0.50) K/uL Baso # (Auto) (0.00-0.30) K/uL Abs Immat Gran (auto) (0.00-0.30) K/uL Imm/Tot Granulo (auto) % INR (0.91-1.10) Sodium (135-149) mmol/L Potassium (3.6-5.1) mmol/L Chloride (96-114) mmol/L Carbon Dioxide (20-32) mmol/L Anion Gap Cancelled (7-15) mEq/L BUN 9 Cancelled (7-30) mg/dL Creatinine 0.5 Cancelled (0.5-1.5) mg/dL Estimated Creat Clear 45.54 Estimated GFR ml/min Glucose (60-115) mg/dL Calcium (8.4-10.6) mg/dL Magnesium (1.5-2.6) mg/dL Total Bilirubin (0.1-1.5) mg/dL Direct Bilirubin (0.0-0.5) mg/dL AST (12-35) U/L ALT (4-35) U/L Alkaline Phosphatase (40-150) U/L C-Reactive Protein (0.5-1.0) mg/dL Total Protein (6.0-8.3) g/dL Albumin (3.3-5.0) g/dL Lipase (23-300) U/L Urine Color (Yellow) Urine Appearance (Clear) Urine pH (5.0-8.5) Ur Specific [place] (1.000-1.030) Urine Protein (Negative) Urine Glucose (UA) (Negative) Urine Ketones (Negative) Urine Blood (Negative) Urine Nitrite (Negative) Urine Bilirubin (Negative) Urine Urobilinogen (0.2-1.0) Ur Leukocyte Esterase (Negative) Urine RBC (0-2) Urine WBC (0-5) Ur Squamous Epith Cells (None-Few) Urine Bacteria (None) Digoxin (0.8-2.0) ng/mL Urine Opiates Screen (Negative) Ur Oxycodone Screen (Negative) Urine Methadone Screen (Negative) Ur Propoxyphene Screen (Negative) Ur Barbiturates Screen (Negative) U Tricyclic Antidepress (Negative) Ur Phencyclidine Scrn (Negative) Ur Amphetamines Screen (Negative) U Methamphetamines Scrn (Negative) U Benzodiazepines Scrn (Negative) Urine Cocaine Screen (Negative) U Marijuana (THC) Screen (Negative) Ur Drug Screen Comment 02/06/23 02/06/23 02/06/23 Range/Units 17:24 17:24 17:24 WBC (4.50-11.00) K/uL RBC (4.00-5.20) m/uL Hgb (12.0-16.0) gm/dL Hct (33.0-51.0) % MCV (80-100) fL MCH (26-34) pg MCHC (32-36) gm/dL RDW Coeff of Fito (11.5-15.5) % Plt Count (140-440) K/uL Neut % (Auto) (42.0-72.0) % Lymph % (Auto) (20-44) % [place] % (Auto) (0.0-11.0) % Eos % (Auto) (0.0-7.0) % Baso % (Auto) (0.0-3.0) % Neut # (Auto) (1.7-7.0) K/uL Lymph # (Auto) (0.90-2.90) K/uL [place] # (Auto) (0.00-0.90) K/UL Eos # (Auto) (0.00-0.50) K/uL Baso # (Auto) (0.00-0.30) K/uL Abs Immat Gran (auto) (0.00-0.30) K/uL Imm/Tot Granulo (auto) % INR (0.91-1.10) Sodium (135-149) mmol/L Potassium (3.6-5.1) mmol/L Chloride (96-114) mmol/L Carbon Dioxide (20-32) mmol/L Anion Gap (7-15) mEq/L BUN (7-30) mg/dL Creatinine (0.5-1.5) mg/dL Estimated Creat Clear Cancelled Estimated GFR 105 Cancelled ml/min Glucose 132 H Cancelled (60-115) mg/dL Calcium 8.6 (8.4-10.6) mg/dL Magnesium (1.5-2.6) mg/dL Total Bilirubin (0.1-1.5) mg/dL Direct Bilirubin (0.0-0.5) mg/dL AST (12-35) U/L ALT (4-35) U/L Alkaline Phosphatase (40-150) U/L C-Reactive Protein (0.5-1.0) mg/dL Total Protein (6.0-8.3) g/dL Albumin (3.3-5.0) g/dL Lipase (23-300) U/L Urine Color (Yellow) Urine Appearance (Clear) Urine pH (5.0-8.5) Ur Specific [place] (1.000-1.030) Urine Protein (Negative) Urine Glucose (UA) (Negative) Urine Ketones (Negative) Urine Blood (Negative) Urine Nitrite (Negative) Urine Bilirubin (Negative) Urine Urobilinogen (0.2-1.0) Ur Leukocyte Esterase (Negative) Urine RBC (0-2) Urine WBC (0-5) Ur Squamous Epith Cells (None-Few) Urine Bacteria (None) Digoxin (0.8-2.0) ng/mL Urine Opiates Screen (Negative) Ur Oxycodone Screen (Negative) Urine Methadone Screen (Negative) Ur Propoxyphene Screen (Negative) Ur Barbiturates Screen (Negative) U Tricyclic Antidepress (Negative) Ur Phencyclidine Scrn (Negative) Ur Amphetamines Screen (Negative) U Methamphetamines Scrn (Negative) U Benzodiazepines Scrn (Negative) Urine Cocaine Screen (Negative) U Marijuana (THC) Screen (Negative) Ur Drug Screen Comment 02/06/23 Range/Units 17:24 WBC (4.50-11.00) K/uL RBC (4.00-5.20) m/uL Hgb (12.0-16.0) gm/dL Hct (33.0-51.0) % MCV (80-100) fL MCH (26-34) pg MCHC (32-36) gm/dL RDW Coeff of Fito (11.5-15.5) % Plt Count (140-440) K/uL Neut % (Auto) (42.0-72.0) % Lymph % (Auto) (20-44) % [place] % (Auto) (0.0-11.0) % Eos % (Auto) (0.0-7.0) % Baso % (Auto) (0.0-3.0) % Neut # (Auto) (1.7-7.0) K/uL Lymph # (Auto) (0.90-2.90) K/uL [place] # (Auto) (0.00-0.90) K/UL Eos # (Auto) (0.00-0.50) K/uL Baso # (Auto) (0.00-0.30) K/uL Abs Immat Gran (auto) (0.00-0.30) K/uL Imm/Tot Granulo (auto) % INR (0.91-1.10) Sodium (135-149) mmol/L Potassium (3.6-5.1) mmol/L Chloride (96-114) mmol/L Carbon Dioxide (20-32) mmol/L Anion Gap (7-15) mEq/L BUN (7-30) mg/dL Creatinine (0.5-1.5) mg/dL Estimated Creat Clear Estimated GFR ml/min Glucose (60-115) mg/dL Calcium Cancelled (8.4-10.6) mg/dL Magnesium 2.2 (1.5-2.6) mg/dL Total Bilirubin 0.2 (0.1-1.5) mg/dL Direct Bilirubin 0.1 (0.0-0.5) mg/dL AST 28 (12-35) U/L ALT 29 (4-35) U/L Alkaline Phosphatase 94 (40-150) U/L C-Reactive Protein 2.2 H (0.5-1.0) mg/dL Total Protein 5.9 L (6.0-8.3) g/dL Albumin 3.2 L (3.3-5.0) g/dL Lipase 83 (23-300) U/L Urine Color (Yellow) Urine Appearance (Clear) Urine pH (5.0-8.5) Ur Specific [place] (1.000-1.030) Urine Protein (Negative) Urine Glucose (UA) (Negative) Urine Ketones (Negative) Urine Blood (Negative) Urine Nitrite (Negative) Urine Bilirubin (Negative) Urine Urobilinogen (0.2-1.0) Ur Leukocyte Esterase (Negative) Urine RBC (0-2) Urine WBC (0-5) Ur Squamous Epith Cells (None-Few) Urine Bacteria (None) Digoxin 0.7 L (0.8-2.0) ng/mL Urine Opiates Screen (Negative) Ur Oxycodone Screen (Negative) Urine Methadone Screen (Negative) Ur Propoxyphene Screen (Negative) Ur Barbiturates Screen (Negative) U Tricyclic Antidepress (Negative) Ur Phencyclidine Scrn (Negative) Ur Amphetamines Screen (Negative) U Methamphetamines Scrn (Negative) U Benzodiazepines Scrn (Negative) Urine Cocaine Screen (Negative) U Marijuana (THC) Screen (Negative) Ur Drug Screen Comment Discharge Plan Discharge Clinical Impression: Other social stressor, Anemia, Abdominal pain, Vomiting Patient Disposition: Admitted As Observation Condition: Stable Activity Level: Activity as Tolerated Discharge Diet: Regular
--- NOTE | 2023-02-06 15:59 | ED.NURSE ---
Received call from nurse, Lis, and director, Yaritza, at [facility]. They expressed concerns about taking patient back due to behaviors. She states the patient is verbally aggressive towards staff and other residents. They state she enters the locked memory care unit seeking her narcotic medications frequently. They stated Lida is already involved with this patient. This justowriter operator informed them that the patient has been calm, cooperative, and sleeping the majority of her time in the ER. They requested we speak to Dr. Smith regarding patient. Call transferred to Dr. Troy to discuss next steps of patient since facility will not take patient back.
--- OUTSIDE RECORDS SUMMARY | 2023-02-06 16:08 | XMS_ITS | Continuity of Care Document ---
Author Name Unknown Organization [facility] Address [address] [place] [address] Care Team Providers Care Sportspersons Name Role Phone Simba Lowry CRNA Unavailable Unavailable Procedures Procedure Date ANESTH, HEAD/NECK/PTRUNK ANESTH PERC IMG TX SP PROC Advance Directives Directive Yes / No Effective Date File Name No Information Encounters Encounter Description Practice Location Reason(s) For Visit Diagnoses Date Provider Providers Copied on Encounter [facility], [address] [place] [address], [id number], [facility] No Information Alen Cottrell. [address] [place] [address], [id number], . tel:[phone] Referring Provider: Michelle Cummings, [address] [place] [address], [id number] . tel:[phone] [facility], [address] [place] [address], [id number], [facility] No Information Asad Ramirez. [address], [place], [place], [id number], . tel:[phone] Referring Provider: Too Del Cid, [address] [place], [address] . tel:[phone] Family History Family Member Type Diagnosis Age [...]
--- OUTSIDE RECORDS SUMMARY | 2023-02-06 16:08 | XMS_ITS | Continuity of Care Document ---
Author Name Unknown Organization [facility] Address [address] [place] [address] Phone Care Team Providers Care Tool/Die Maker Name Role Phone Odalys BOLES, Homar [...] C, [address], [place], [place], [id number], [place] tel:[phone] [facility] No Information 8 Odalys Graf. [facility], [address] [place] [address] [address], [place], [place], [id number] , [place]. tel:[phone] [facility], [address], [place], [place], [id number], [place] tel:[phone] [facility] No Information 8 Odalys Graf. [facility], [address] [place] [address] [address], [place], [place], [id number] , [place]. tel:[phone] [facility], [address], [place], [id number], [place] tel:[phone] [facility] No Information 8 Rodrick Pop. [facility], [address] [place] [address] [address], [place], [place], [id number] , [place]. tel:[phone] Referring Provider: Homar Morrow, [facility] [address] [place] [address] [address], [place], [address] . tel:[phone] [facility], [address], [place], [id number], [place] tel:[phone] [facility] No Information 6 8 Odalys Graf. [facility], [address], [place], [id number] , [place]. [phone] Referring Provider: Homar Morrow, [facility] [address], [place], [address] . tel:[phone] Office/Outpat ient Visit,Est, Mod [facility], [address], [place], [id number], [place] tel:[phone] [facility] Spinal stenosis, lumbar region 5 7 Odalys Graf. [facility], [address], [place], [place], [id number] , [place]. [phone] Referring Provider: Homar Morrow, [facility] [address], [place], [address] . tel:[phone] [facility], [address], [place], [id number], [place] tel:[phone] [facility] Spinal stenosis, lumbar region 0-201 6 Odalys Grfa. [facility], [address], [place], [id number] , [place]. [phone] Referring Provider: Homar Morrow, [facility] [address], [place], [address] . tel:[phone] [facility], [address], [place], [id number], [place] tel:[phone] [facility] Arthrodesis status 1-201 6 Odalys Graf. [facility], [address], [place], [id number] , [place]. [phone] [facility], [address], [place], [id number], [place] tel:[phone] [facility] No Information Sep-2 6 Odalys Rowlandin. [facility], [address], [place], [id number] , [place]. tel:[phone] Referring Provider: Homar Morrow, [facility] [address], [place], [address] . tel:[phone] Family History Family Member Type Diagnosis Age At Onset No Information Payers Payer name Insurance type Covered libertarian ID Authoreneida sampsonada(s) Medicare [id number] Social History Type Description Quantity Date Captured [...] Instructions Date Instruction Additional Infor jaylene Weight management: I nstructed to return to General Practitioner timeframe: 1 Month. Related to Overweight Weight Management Education Rela brodie to Overweight Assessments Type Assessment Date No Information Patient Care Teams Name Effective Dates (start - stop) Status Members No Information
--- OUTSIDE RECORDS SUMMARY | 2023-02-06 16:08 | XMS_ITS | Continuity of Care Document ---
Author Name Unknown Organization [facility] Address [address] [place] [address] Care Team Providers Care Observation Nurse Name Role Phone [facility] Unavailable Unav ailable Procedures Procedure [...] Diagnoses Date Provider Providers Copied on Encounter [facility], [address] [place] [address], [id number], [facility] No Information [facility]. [address] [place], [place], [id number], [place]. tel:[phone] Referring Provider: Michelle Cummings, [address] [place], [address]. tel:[phone] [facility], [address] [place], [place], [id number], [facility] No Information [facility]. [address] [facility] [place], [place], [id number], [place]. tel:[phone] Referring Provider: Too Del Cid, [address] [place], [address]. tel:[phone] [facility], [address] [place], [place], [id number], [place] [facility] No Information [facility]. [address] [place], [place], [id number], . tel:[phone] Referring Provider: Michelle Cummings, [address] [place], [address]. tel:[phone] Family History Family Member Type Diagnosis Age [...]
--- OUTSIDE RECORDS SUMMARY | 2023-02-06 16:09 | XMS_ITS | Continuity of Care Document ---
Author Name Unknown Organization [facility] rajiv Address [address] [place] [address] Phone Care Team Providers Care Product Development Assistant Name Role Phone Dionte Granados Unavailable Unavailable [...] eval q3mo opiod tx [facility] Post Op [place] No Charge For Visit Per Prov IMPLANT [...] OFFICE VISIT, EST TELEMEDICINE 20 OFFICE VISIT, [facility] TELEMEDICINE 20 Foll-up eval q3mo opiod tx OFFICE/OUTPATIENT VISIT, EST Drug Urine Toxology With Chromatography SCS Trial Procedure Ordered INJ TRIGGER POINT, 1/2 MUSCL OFFICE/OUTPATIENT VISIT, NEW Advance Directives Directive Yes / No Effective Date File Name No Information Encounters Encounter Description Practice Location Reason(s) For Visit Diagnoses Date Provider Providers Copied on Encounter OFFICE VISIT, [facility], [address] [place], [place], [id number] , [place] tel:[phone] [facility] Max Widespread pain (chief complaint) Pain in right kneePain in left ankle and joints of left footRadiculopa thy, lumbar regionMyalgia, other sitePostlamine ctomy syndrome, not elsewhere classifiedLong term (current) use of opiate analgesic 3 Mayra Rapp. [address] [facility] [address], [place], [place], [id number] , [place]. tel:[phone] anticoagulant prescriber: Aleksey Smith [address], [address]. tel:[phone] Provider: Too Del Cid, [address] [place], [address]. tel:[phone] OFFICE VISIT, [facility], [address] [place], [place], [id number] , [place] tel:[phone] [facility] Widespread pain (chief complaint) Postlaminectom y syndrome, not elsewhere classifiedRadi culopathy, lumbar regionMyalgia, other sitePain in left ankle and joints of left footPain in right kneeLong term (current) use of opiate analgesic 3 Shay Morales. [address] [place], [place], [id number] , [place]. tel:[phone] anticoagulant prescriber: Aleksey Smith [address] [place], [address]. tel:[phone] [facility], [address] [place] [address], [id number] , [place] tel:[phone] [facility] [place] pain (chief complaint) Postlaminectom y syndrome, not elsewhere classified 2 Indu Dalal. [address] [place], [place], [id number] , [place]. tel:[phone] Psych Dx Eval [facility], [address] [place] [address], [id number] , [place] tel:[phone] Telehealth Pain disorder with related psychological factorsPost-tr aumatic stress disorder, unspecified 2 Tess Cristiano Peg. [address] [place] [address], [id number] , [place]. tel:[phone] Referring Provider: Too Del Cid, [address] [place] [address], [address]. tel:[phone] Psych Dx Eval [facility], [address] [place] [address], [id number] , [place] tel:[phone] Telehealth Pain disorder with related psychological factorsAnxiety disorder 2 Tess Cristiano Peg. [address] [place] [address], [id number] , [place]. tel:[phone] OFFICE/OUTPAT IENT VISIT, [facility], [address] [place] [address], [id number] , [place] tel:[phone] [facility] Max Widespread pain (chief complaint) Pain in right hipPain in right kneePain in left ankle and joints of left footRadiculopa thy, lumbar regionPostlami nectomy syndrome, not elsewhere classifiedLong term (current) use of opiate analgesicMyalg ia, other site 2 Heriberto Gage. [address] [place] [address], [id number] , [place]. tel:[phone] anticoagulant prescriber: Aleksey Smith, [address], [address]. tel:[phone] Provider: Too Del Cid, [address] [place] [address], [address]. tel:[phone] OFFICE VISIT, EST TELEMEDICINE [facility], [address] [place] [address], [id number] , [place] tel:[phone] [facility] Back Pain (chief complaint) Pain in right kneePain in left ankle and joints of left footRadiculopa thy, lumbar regionMyalgia, other sitePostlamine ctomy syndrome, not elsewhere classifiedLong term (current) use of opiate analgesicPain in right hip 2 Mayra Rapp. [address] [place] [address] [address], [place], [place], [id number] , [place]. tel:[phone] anticoagulant prescriber: Aleksey Smith, [address], [address]. tel:[phone] OFFICE VISIT, EST TELEMEDICINE [facility], [address] [place] [address], [id number] , [place] tel:[phone] [facility] Back Pain (chief complaint) Pain in right kneePain in left ankle and joints of left footRadiculopa thy, lumbar regionMyalgia, other sitePostlamine ctomy syndrome, not elsewhere classifiedLong term (current) use of opiate analgesic 2 Nunez Dionte. [address] [place] [address] [address], [place], [place], [id number] , [place]. tel:[phone] anticoagulant prescriber: Aleksey Smith [address], [address]. tel:[phone] OFFICE VISIT, EST TELEMEDICINE [facility], [address] [place] [address], [id number] , [place] tel:[phone] [facility] Back Pain (chief complaint) Pain in right kneePain in left ankle and joints of left footRadiculopa thy, lumbar regionMyalgia, other sitePostlamine ctomy syndrome, not elsewhere classifiedLong term (current) use of opiate analgesic 2 Mayra Rapp. [address] [place] [address] [address], [place], [id number] , [place]. tel:[phone] Referring Provider: Too Del Cid, [address] [place] [address], [address]. tel:[phone] OFFICE/OUTPAT IENT VISIT, [facility], [address] [place] [address], [id number] , [place] tel:[phone] [facility] Back Pain (chief complaint) Pain in right kneePain in right ankle and joints of right footPain in left ankle and joints of left footRadiculopa thy, lumbar regionMyalgia, other sitePostlamine ctomy syndrome, not elsewhere classifiedLong term (current) use of opiate analgesic 2 Mayra Rapp. [address] [place] [address] [address], [place], [id number] , [place]. [phone] Referring Provider: Too Del Cid, [address] [place] [address], [address]. tel:[phone] [facility], [address] [place] [address], [id number] , [place] tel:[phone] [facility] No Information 2 Will Too. [address] [place] [address], [id number] , [place]. [phone] OFFICE/OUTPAT IENT VISIT, [facility], [address] [place] [address], [id number] , [place] tel:[phone] [facility] Back Pain (chief complaint) Pain in right shoulderPain in right kneePain in right ankle and joints of right footPain in left ankle and joints of left footRadiculopa thy, lumbar regionMyalgia, other sitePostlamine ctomy syndrome, not elsewhere classifiedLong term (current) use of opiate analgesic 2 Mayra Rapp. [address] [place] [address] [address], [place], [id number] , [place]. [phone] Referring Provider: Too Del Cid, [address] [place] [address], [id number]. tel:[phone] OFFICE/OUTPAT IENT VISIT, [facility], [address] [place] [address], [id number] , [place] tel:[phone] [facility] Back Pain (chief complaint) Chronic migraine without aura, intractable, without status migrainosusPai n in right shoulderPain in right kneePain in right ankle and joints of right footPain in left ankle and joints of left footRadiculopa thy, lumbar regionMyalgia, other sitePostlamine ctomy syndrome, not elsewhere classifiedLong term (current) use of opiate analgesicSpond ylosis without myelopathy or radiculopathy, lumbar region 2 Mayra Rapp. [address] [place] [address] [address], [place], [id number] , [place]. tel:[phone] Referring Provider: Too Del Cid, [address] [place] [address], [id number]. tel:[phone] OFFICE VISIT, [facility], [address] [place] [address], [id number] , [place] [phone] [facility] Back Pain (chief complaint) Chronic migraine without aura, intractable, without status migrainosusPai n in right shoulderPain in right kneeRadiculopa thy, lumbar regionMyalgia, other sitePostlamine ctomy syndrome, not elsewhere classifiedLong term (current) use of opiate analgesicPain in left ankle and joints of left footPain in right ankle and joints of right foot 2 Mayra Rapp. [address] [place] [address] [address], [place], [id number] , [place]. tel:[phone] OFFICE/OUTPAT IENT VISIT, [facility], [address] [place] [address], [id number] , [place] [phone] [facility] Back Pain (chief complaint) Myalgia, other sitePain in right shoulderPain in right kneeRadiculopa thy, lumbar regionPostlami nectomy syndrome, not elsewhere classifiedLong term (current) use of opiate analgesicChron ic migraine without aura, intractable, without status migrainosus Aug- 2 Mayra Rapp. [address] [place] [address] [address], [place], [place], [id number] , [place]. tel:[phone] Referring Provider: Too Del Cid, [address] [place] [address], [address]. tel:[phone] [facility], [address] [place] [address], [id number] , [place] tel:[phone] [facility] [place] No Information Aug- 2 Will Too. [address] [place] [address], [id number] , [place]. tel:[phone] [facility], [address] [place] [address], [id number] , [place] tel:[phone] [facility] No Information Jul- 2 Mayra Rapp. [address] [place] [address] [address], [place], [place], [id number] , [place]. tel:[phone] Referring Provider: Too Del Cid, [address] [place] [address], [address]. tel:[phone] OFFICE/OUTPAT IENT VISIT, EST [facility], [address] [place] [address], [id number] , [place] tel:[phone] [facility] Back Pain (chief complaint) Radiculopathy, lumbar regionMyalgia, other sitePostlamine ctomy syndrome, not elsewhere classifiedLong term (current) use of opiate analgesicEncou nter for therapeutic drug level monitoringEnco unter for screening for other disorderPain in right shoulderPain in right knee Jul- 2 Mayra Rapp. [address] [place] [address] [address], [place], [place], [id number] , [place]. tel:[phone] Referring Provider: Caleb Ontiveros, [facility] [address] [facility], [place], [address]. tel:[phone] OFFICE VISIT, [facility], [address] [place] [address], [id number] , [place] tel: [phone] [facility] Back Pain (chief complaint) Postlaminectom y syndrome, not elsewhere classifiedRadi culopathy, lumbar regionMyalgia, other siteLong term (current) use of opiate analgesic - 2 Mayra Rapp. [facility]5 [facility] [address], [place], [place], [id number] , [place]. tel:[phone] Referring Provider: Too Del Cid, [address] [place] [address], [address]. tel:[phone] OFFICE/OUTPAT IENT VISIT, [facility], [address] [place] [address], [id number] , [place] tel:[phone] [facility] Back Pain (chief complaint) Myalgia, other sitePostlamine ctomy syndrome, not elsewhere classifiedRadi culopathy, lumbar regionLong term (current) use of opiate analgesic 1 Mayra Rapp. [address] [place] [address] [address], [place], [place], [id number] , [place]. tel:[phone] Referring Provider: Too Del Cid, [address] [place] [address], [address]. tel:[phone] OFFICE VISIT, [facility], [address] [place] [address], [id number] , [place] tel:[phone] [facility] low back pain (chief complaint) Radiculopathy, lumbar regionMyalgia, other siteLong term (current) use of opiate analgesicPostl aminectomy syndrome, not elsewhere classified Nov- 1 Mayra Rapp. [address] [facility] [address], [place], [place], [id number] , [place]. tel:[phone] Referring Provider: Too Del Cid, [address] [place] [address], [address]. tel:[phone] [facility], [address] [place] [address], [id number] , [place] tel:[phone] [facility] Postlaminectom y syndrome, not elsewhere classified 1 Mayra Rapp. [address] [place] [address] [address], [place], [place], [id number] , [place]. tel:[phone] Referring Provider: Too Del Cid, [address] [place] [address], [address]. [phone] OFFICE/OUTPAT IENT VISIT, EST [facility], [address] [place] [address], [id number] , [place] tel:[phone] [facility] Widespread pain (chief complaint) Postlaminectom y syndrome, not elsewhere classifiedRadi culopathy, lumbar regionMyalgia, other siteLong term (current) use of opiate analgesic 1 Mayra Rapp. [address] [place] [address] [address], [place], [place], [id number] , [place]. tel:[phone] Referring Provider: Too Del Cid, [address] [place] [address], [address]. tel:[phone] [facility], [address] [place] [address], [id number] , [place] tel:[phone] [facility] No Information 1 Mayra Rapp. [address] [place] [address] [address], [place], [place], [id number] , [place]. tel:[phone] Referring Provider: Too Del Cid, [address] [place] [address], [address]. tel:[phone] OFFICE/OUTPAT IENT VISIT, [facility], [address] [place] [address], [id number] , [place] tel:[phone] [facility] Widespread pain (chief complaint) Postlaminectom y syndrome, not elsewhere classifiedRadi culopathy, lumbar regionMyalgia, other siteLong term (current) use of opiate analgesic 1 Mayra Rapp. [address] [place] [address] [address], [place], [place], [id number] , [place]. [phone] Referring Provider: Too Del Cid, [address] [place] [address], [address]. tel:[phone] OFFICE/OUTPAT IENT VISIT, [facility], [address] [place] [address], [id number] , [place] [phone] [facility] Widespread pain (chief complaint) Postlaminectom y syndrome, not elsewhere classifiedRadi culopathy, lumbar regionMyalgia, other siteLong term (current) use of opiate analgesic 1 Mayra Rapp. [address] [place] [address] [address], [place], [place], [id number] , [place]. [phone] Referring Provider: Too Del Cid, [address] [place] [address], [id number]. tel:[phone] [place] [address] [facility] Clinic, [address] [place] [address], [id number] , [place] [phone] [facility] Postlaminectom y syndrome, not elsewhere classified 1 Mayra Rapp. [address] [place] [address] [address], [place], [place], [id number] , [place]. tel:[phone] Referring Provider: Too Del Cid, [address] [place] [address], [address]. tel:[phone] OFFICE/OUTPAT IENT VISIT, [facility], [address] [place] [address], [id number] , [place] tel:[phone] [facility] Widespread pain (chief complaint) Radiculopathy, lumbar regionMyalgia, other siteLong term (current) use of opiate analgesicPostl aminectomy syndrome, not elsewhere classified 1 Mayra Rapp. [address] [place] [address] [address], [place], [id number] , [place]. tel:[phone] Referring Provider: Too Del Cid, [address] [place] [address], [address]. tel:[phone] [facility], [address] [place] [address], [id number] , [place] tel:[phone] [facility] Postlaminectom y syndrome, not elsewhere classified Apr-0 1 Nunez Dionte. [address] [place] [address] [address], [place], [place], [id number] , [place]. tel:[phone] Referring Provider: Too Del Cid, [address] [place] [address], [address]. [phone] OFFICE/OUTPAT IENT VISIT, [facility], [address] [place] [address], [id number] , [place] tel:[phone] [facility] Widespread pain (chief complaint) Postlaminectom y syndrome, not elsewhere classifiedRadi culopathy, lumbar regionMyalgia, other siteLong term (current) use of opiate analgesicEncou nter for screening for other disorder Apr-0 1 Mayra Rapp. [address] [place] [address] [address], [place], [place], [id number] , [place]. tel:[phone] Referring Provider: Too Del Cid, [address] [place] [address], [address]. tel:[phone] OFFICE/OUTPAT IENT VISIT, [facility], [address] [place] [address], [id number] , [place] tel:[phone] [facility] Widespread pain (chief complaint) Postlaminectom y syndrome, not elsewhere classifiedRadi culopathy, lumbar regionMyalgia, other siteLong term (current) use of opiate analgesic Mar-0 1 Mayra Rapp. [address] [place] [address] [address], [place], [place], [id number] , [place]. tel:[phone] Referring Provider: Too Del Cid, [address] [place] [address], [address]. tel:[phone] [facility], [address] [place] [address], [id number] , [place] tel: [phone] [facility] Max Postlaminectom y syndrome, not elsewhere classified 1 Mayra Rapp. [address] [place] [address] [address], [place], [place], [id number] , [place]. tel:[phone] Referring Provider: Too Del Cid, [address] [place] [address], [address]. tel:[phone] [place] [address] [facility], [address] [place] [address], [id number] , [place] tel:[phone] [facility] Max No Information 1 Mayra Rapp. [address] [place] [address], [place], [place], [id number] , [place]. tel:[phone] OFFICE/OUTPAT IENT VISIT, EST [facility], [address] [place] [address], [id number] , [place] tel: [phone] [facility] Max Widespread pain (chief complaint) Postlaminectom y syndrome, not elsewhere classifiedRadi culopathy, lumbar regionMyalgia, other siteLong term (current) use of opiate analgesicPain in right kneeChronic pain syndrome 1 Mayra Rapp. [address] [place] [address] [address], [place], [place], [id number] , [place]. tel:[phone] Referring Provider: Too Del Cid, [address] [place] [address], [address]. tel:[phone] OFFICE VISIT, EST TELEMEDICINE [facility], [address] [place] [address], [id number] , [place] tel: [phone] [facility] [place] Widespread pain (chief complaint) Postlaminectom y syndrome, not elsewhere classifiedRadi culopathy, lumbar regionMyalgia, other siteLong term (current) use of opiate analgesicPain in right kneeChronic pain syndrome [address] Rapp[address] [place] [address] [address], [place], [place], [id number] , [place]. tel:[phone] Referring Provider: Too Del Cid, [address] [place] [address], [address]. tel:[phone] [facility], [address] [place] [address], [id number] , [place] tel:[phone] [facility] Postlaminectom y syndrome, not elsewhere classified 0 Mayra Rapp. [address] [place] [address] [address], [place], [place], [id number] , [place]. tel:[phone] Referring Provider: Too Del Cid, [address] [place] [address], [address]. tel:[phone] [facility], [address] [place] [address], [id number] , [place] tel:[phone] [facility] Postlaminectom y syndrome, not elsewhere classified 0 Emiliano Martinez. [address] [place] [address], [id number] , [place]. tel:[phone] Referring Provider: Too Del Cid, [address] [place] [address], [address]. tel:[phone] OFFICE VISIT, EST TELEMEDICINE [facility], [address] [place] [address], [id number] , [place] tel:[phone] [facility] Widespread pain (chief complaint) Radiculopathy, lumbar regionMyalgia, other siteLong term (current) use of opiate analgesicPain in right kneeChronic pain syndromePostla minectomy syndrome, not elsewhere classified 0 Mayra Rapp. [address] [place] [address] [address], [place], [place], [id number] , [place]. tel:[phone] Referring Provider: Too Del Cid, [address] [place] [address], [address]. tel:[phone] OFFICE/OUTPAT IENT VISIT, EST [facility], [address] [place] [address], [id number] , [place] tel:[phone] [facility] Max Widespread pain (chief complaint) Myalgia, other siteRadiculopa thy, lumbar regionPostlami nectomy syndrome, not elsewhere classifiedLong term (current) use of opiate analgesicPain in right kneeChronic pain syndrome 0 Nunez Dionte. [address] [facility] [address], [place], [place], [id number] , [place]. tel:[phone] Referring Provider: Too Del Cid, [address] [place] [address], [address]. tel:[phone] [facility], [address] [place] [address], [id number] , [place] tel:[phone] [facility] Postlaminectom y syndrome, not elsewhere classifiedMyal isabel, other site 0 Nyjoe Hays. [address] [facility] [address], [place], [place], [id number] , [place]. tel:[phone] Referring Provider: Too Del Cid, [address] [place] [address], [address]. tel:[phone] [facility], [address] [place] [address], [id number] , [place] tel:[phone] [facility] Radiculopathy, lumbar regionPostlami nectomy syndrome, not elsewhere classified 0 Mayra Rapp. 14[address] [facility] [address], [place], [place], [id number] , [place]. tel:[phone] Referring Provider: Too Del Cid, [address] [place] [address], [address]. tel:[phone] [facility], [address] [place] [address], [id number] , [place] tel:[phone] [facility] No Information Oct-0 6-202 0 Will Too. [address] [place] [address], [id number] , [place]. [phone] Referring Provider: Too Del Cid, [address] [place] [address], [address]. tel:[phone] OFFICE VISIT, EST TELEMEDICINE [facility], [address] [place] [address], [id number] , [place] tel:[phone] [facility] [facility] Widespread pain (chief complaint) Radiculopathy, lumbar regionLong term (current) use of opiate analgesicMyalg ia, other sitePain in right kneeChronic pain syndromePostla minectomy syndrome, not elsewhere classified Sep-2 5-202 0 Mayra Rapp. [facility] [facility] [address], [place], [place], [id number] , [place]. [phone] Referring Provider: Too Del Cid, [address] [place] [address], [address]. tel:[phone] [facility], [address] [place] [address], [id number] , [place] [phone] [facility] Radiculopathy, lumbar region Sep-0 -202 0 Cummings Michelle. [address] [place] [address], [id number] , [place]. [phone] Referring Provider: Too Del Cid, [address] [place] [address], [address]. tel:[phone] [facility], [address] [place] [address], [id number] , [place] tel:[phone] [facility] No Information Sep-0 3-202 0 Cummings Michelle. [address] [place] [address], [id number] , [place]. [phone] Referring Provider: Too Del Cid, [address] [place] [address], [address]. tel:[phone] OFFICE VISIT, EST TELEMEDICINE [facility], [address] [place] [address], [id number] , [place] tel: [phone] [facility] Max Widespread pain (chief complaint) Postlaminectom y syndrome, not elsewhere classifiedLong term (current) use of opiate analgesicRadic ulopathy, lumbar regionMyalgia, other sitePain in right kneeChronic pain syndrome 0 Nunez Dionte. [address] [place] [address] [address], [place], [place], [id number] , [place]. tel:[phone] Referring Provider: Too Del Cid, [address] [place] [address], [id number]. tel:[phone] [facility], [address] [place] [address], [id number] , [place] tel: [phone] [facility] [place] Postlaminectom y syndrome, not elsewhere classified 0 Nunez Dionte. [address] [place] [address] [address], [facility], [place], [id number] , [place]. tel:[phone] OFFICE VISIT, EST TELEMEDICINE [facility], [address] [place] [address], [id number] , [place] tel: [phone] [facility] Max Widespread pain (chief complaint) Pain in right kneeChronic pain syndromePostla minectomy syndrome, not elsewhere classifiedLong term (current) use of opiate analgesicRadic ulopathy, lumbar regionMyalgia, other site 0 Nunez Dionte. [address] [place] [address] 100, [facility], [place], [id number] , [place]. tel:[phone] Referring Provider: Too Del Cid, [address] [place] [address], [address]. tel:[phone] OFFICE VISIT, EST TELEMEDICINE [facility], [address] [place] [address], [id number] , [place] tel:[phone] Telehealth Widespread pain (chief complaint) Pain in right kneeChronic pain syndromePostla minectomy syndrome, not elsewhere classifiedLong term (current) use of opiate analgesicRadic ulopathy, lumbar regionMyalgia, other site 0 Mayra Rapp. [address] [place] [address] [address], [place], [place], [id number] , [place]. tel:[phone] Referring Provider: Too Del Cid, [address] [place] [address], [id number]. tel:[phone] OFFICE VISIT, EST TELEMEDICINE [facility], [address] [place] [address], [id number] , [place] tel:[phone] Telehealth Widespread pain (chief complaint) Postlaminectom y syndrome, not elsewhere classifiedPain in right kneeChronic pain syndromeLong term (current) use of opiate analgesicRadic ulopathy, lumbar regionMyalgia, other site 0 Mayra Rapp. [address] [place] [address] [address], [place], [place], [id number] , [place]. tel:[phone] Referring Provider: Too Del Cid, [address] [place] [address], [address]. tel:[phone] Psych Dx Eval [facility], [address] [place] [address], [id number] , [place] tel:[phone] Telehealth Pain disorder with related psychological factorsPost-tr aumatic stress disorder, unspecified 0 Tess Aguilar. [address] [place] [address], [id number] , [place]. [phone] Referring Provider: Too Del Cid, [address] [place] [address], [address]. tel:[phone] OFFICE VISIT, EST TELEMEDICINE [facility], [address] [place] [address], [id number] , [place] tel:[phone] Telehealth Widespread pain (chief complaint) Chronic pain syndromePain in right kneePostlamine ctomy syndrome, not elsewhere classifiedLong term (current) use of opiate analgesicMyalg ia, other siteRadiculopa thy, lumbar region 0 Mayra Rapp. [address] [place] [address] [address], [place], [place], [id number] , [place]. tel:[phone] Referring Provider: Too Del Cid, [address] [place] [address], [address]. tel:[phone] OFFICE VISIT, EST [facility], [address] [place] [address], [id number] , [place] tel: [phone] Telehealth Widespread pain (chief complaint) Chronic pain syndromePain in right kneePostlamine ctomy syndrome, not elsewhere classifiedLong term (current) use of opiate analgesic Amos-0 2- 0 Nunez Dionte. [address] [place] [address] [address], [place], [place], [id number] , [place]. [phone] Referring Provider: Too Del Cid, [address] [place] [address], [id number]. tel:[phone] OFFICE VISIT, [facility], [address] [place] [address], [id number] , [place] tel: [phone] Telehealth Widespread pain (chief complaint) Postlaminectom y syndrome, not elsewhere classifiedPain in right kneeChronic pain syndromeLong term (current) use of opiate analgesic September- 0 Nunez Dionte. [address] [place] [address] [address], [place], [place], [id number] , [place]. tel: [phone] Referring Provider: Too Del Cid, [address] [place] [address], [address]. tel:[phone] OFFICE VISIT, [facility], [address] [place] [address], [id number] , [place] tel: [phone] Telehealth Widespread pain (chief complaint) Postlaminectom y syndrome, not elsewhere classifiedPain in right kneeChronic pain syndromeLong term (current) use of opiate analgesicPain in left hip September-0 0 Nunez Dionte. [address] [place] [address] [address], [place], [place], [id number] , [place]. tel: [phone] OFFICE VISIT, EST [facility], [address] [place] [address], [id number] , [place] tel:[phone] Telehealth Widespread pain (chief complaint) Postlaminectom y syndrome, not elsewhere classifiedPain in right kneeChronic pain syndromeLong term (current) use of opiate analgesic Apr-2 0-202 0 Mayra Rapp. 1455 [facility] [address], [place], [place], [id number] , [place]. [phone] Referring Provider: Too Del Cid, [address] [place] [address], [address]. tel:[phone] OFFICE VISIT, EST TELEMEDICINE [facility], [address] [place] [address], [id number] , [place] tel:[phone] Telehealth Widespread pain (chief complaint) Postlaminectom y syndrome, not elsewhere classifiedPain in right kneeChronic pain syndromeLong term (current) use of opiate analgesic Apr-0 2-202 [address] Mayra Rapp[address] [place] [address] [address], [place], [place], [id number] , [place]. [phone] Referring Provider: Too Del Cid, [address] [place] [address], [address]. 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 [address] [place] [address] [address], [place], [place], [id number] , [place]. tel:[phone] Referring Provider: Too Del Cid, [address] [place] [address], [address]. tel:[phone] [facility], [address] [place] [address], [id number] , [place] [phone] [facility] Max No Information Jul- 0- 0 Mayra Rapp. [address] [place] [address] [address], [facility], [place], [id number] , [place]. tel:[phone] OFFICE/OUTPAT IENT VISIT, [facility], [address] [place], [place], [id number] , [place] tel:[phone] [facility] Widespread pain (chief complaint) Chronic pain syndromePostla minectomy syndrome, not elsewhere classifiedPain in right kneeLong term (current) use of opiate analgesic Jul-0 - 0 Mayra Rapp. 1455 [facility] [address], [place], [place], [id number] , [place]. tel:[phone] Referring Provider: Too Del Cid, [address] [place], [address]. tel:[phone] OFFICE/OUTPAT IENT VISIT, [facility], [address] [place], [place], [id number] , [place] tel:[phone] [facility] Widespread pain (chief complaint) Chronic pain syndromePostla minectomy syndrome, not elsewhere classifiedMyal isabel, other sitePain in right kneeEncounter for therapeutic drug level monitoringLong term (current) use of opiate analgesic 2 0 Nunez Dionte. 1455 [facility] [address], [place], [place], [id number] , [place]. [phone] Referring Provider: Caleb Ontiveros [facility] [address] [facility], [place], [address]. tel:[phone] Family History Family Member Type Diagnosis Age At Onset No Information Payers Payer name Insurance type Covered democrat ID Authoriza tiada(s) [employer] [facility] Replacement [id number] Social History Type Description Quantity Date Captured [...] Of Treatment Date Type Action Status Goal Medication Recon ciliation. Due on due Goal FIT. Due on due Goal CT-Colonography. Due on due Goal Order Annual PT. Due on due Goal AST (SGOT). Due on due Goal OARS. Due on due Goal Update Social Hi story. Due on due Goal Hepatitis C scre ening. Due on due Goal [employer] Scanned. Due on due Goal Creatinine. Due [...] vaccine ( 1st). Due on due Goal [employer] Paperwork. Due on due Goal UDT. Due on due Goal Unhealthy drug u se screening. Due on due Goal HPV. Due on due Goal Height. Due on d ue Goal Order Annual PT. Due on due Goal Tobacco Use. Due on due Goal PHQ-9. Due on du e Goal [employer] Scanned. Due on due Goal [employer] Paperwork. Due on due Goal Creatinine. Due [...] ue Goal Creatinine. Due on due Goal [employer] Paperwork. Due on due Goal OARS. Due on due Goal ALT (SGPT). Due on due Goal Hepatitis C scre ening. Due on due Goal [employer] Scanned. Due on due Goal Order Annual [...] Goal AST (SGOT). Due on due Goal [employer] Scanned. Due on due Goal ALT (SGPT). Due on due Goal Hepatitis C scre ening. Due on due Goal PHQ-9. Due on du e Goal OARS. Due on due Goal [employer] Paperwork. Due on due Goal Height. Due on d ue Goal Weight. Due on d ue Goal FIT-DNA. Due on due Goal Review Allergy L ist. Due on due Goal Creatinine. Due on due Goal Zoster vaccine ( ). Due on due Goal [employer] Scanned. Due on due Goal Weight. Due on d ue Goal ALT (SGPT). Due on due Goal [employer] Paperwork. Due on due Goal Creatinine. Due [...] due Goal CT-Colonography. Due on due Goal FIT. Due on due Goal CT-Colonography. Due on due Goal HPV. Due on due Goal Hepatitis C scre ening. Due on due Goal [employer] Scanned. Due on due Goal Creatinine. Due [...] Goal PHQ-9. Due on du e Goal [employer] Paperwork. Due on due Goal Height. Due [...] due Goal CT-Colonography. Due on due Goal DR[employer] Paperwork. Due on due Goal ALT (SGPT). [...] Goal Weight. Due on d ue Goal [employer] Scanned. Due on due Goal Tobacco Use. [...] Order Annual PT. Due on due Goal [employer] Scanned. Due on due Goal ALT (SGPT). Due on due Goal Height. Due on d ue Goal OARS. Due on due Goal [employer] Paperwork. Due on due Goal UDT. Due on due Goal Hepatitis C scre ening. Due on due Goal Update Social Hi story. Due on due Goal Unhealthy drug u se screening. Due on due Goal [employer] Scanned. Due on due Goal Tobacco Use. [...] Order Annual PT. Due on due Goal [employer] Paperwork. Due on due Goal HPV. Due [...] Goal Weight. Due on d ue Goal DRY[employer] Paperwork. Due on due Goal OARS. Due on due Goal ALT (SGPT). Due on due Goal [employer] Scanned. Due on due Goal UDT. Due [...] Order Annual PT. Due on due Goal [employer] Paperwork. Due on due Goal Creatinine. Due on due Goal [employer] Scanned. Due on due Goal OARS. Due [...] due Goal FIT. Due on due Goal [employer] Scanned. Due on due Goal Creatinine. Due on due Goal OARS. Due on due Goal Order Annual PT. Due on due Goal [employer] Paperwork. Due on due Goal AST (SGOT). [...] due Goal HPV. Due on due Goal [employer] Scanned. Due on due Goal AST (SGOT). Due on due Goal Lipid panel. Due on due Goal PHQ-9. Due on du e Goal Creatinine. Due on due Goal FIT. Due on due Goal Medication Recon ciliation. Due on due Goal Weight. Due on d ue Goal [employer] Paperwork. Due on due Goal Review Allergy [...] due Goal CT-Colonography. Due on due Goal [employer] Paperwork. Due on due Goal OARS. Due on due Goal Zoster vaccine ( 1st). Due on due Goal Medication Recon ciliation. Due on due Goal Hepatitis C scre ening. Due on due Goal FIT. Due on due Goal Weight. Due on d ue Goal [employer] Scanned. Due on due Goal UDT. Due on due Goal UDT. Due on due Goal [employer] Scanned. Due on due Goal DR[employer] Paperwork. Due on due Goal FIT-DNA. Due [...] Order Annual PT. Due on due Goal [employer] Scanned. Due on due Goal Creatinine. Due on due Goal OARS. Due on due Goal AST (SGOT). Due on due Goal Zoster vaccine ( 1st). Due on due Goal DR[employer] Paperwork. Due on due Goal FIT-DNA. Due [...] due Goal FIT. Due on due Goal [employer] Scanned. Due on due Goal PHQ-9. Due [...] due Goal OARS. Due on due Goal DRY[employer] Paperwork. Due on due Goal Zoster vaccine [...] due Goal CT-Colonography. Due on due Goal [employer] Scanned. Due on due Goal FIT-DNA. Due on due Goal Tobacco Use. Due on due Goal Creatinine. Due on due Goal Review Allergy L ist. Due on due Goal Lipid panel. Due on due Goal DR[employer] Paperwork. Due on due Goal UDT. Due on due Goal PHQ-9. Due on du e Goal ALT (SGPT). Due on due Goal Weight. Due on d ue Goal Order Annual PT. Due on due Goal [employer] Scanned. Due on due Goal Medication Recon ciliation. Due on due Goal OARS. Due on due Goal Tobacco Use. Due on due Goal Creatinine. Due on due Goal DR[employer] Paperwork. Due on due Goal Review Allergy [...] Social Hi story. Due on due Goal [employer] Scanned. Due on due Goal Medication Recon ciliation. Due on due Goal UDT. Due on due Goal Creatinine. Due on due Goal PHQ-9. Due on du e Goal [employer] Paperwork. Due on due Goal ALT (SGPT). Due on due Goal AST (SGOT). Due on due Goal Order Annual PT. Due on due Goal Creatinine. Due on due Goal [employer] Paperwork. Due on due Goal Tobacco Use. Due on due Goal PHQ-9. Due on du e Goal ALT (SGPT). Due on due Goal Update Social Hi story. Due on due Goal OARS. Due on due Goal AST (SGOT). Due on due Goal [employer] Scanned. Due on due Goal Review Allergy L ist. Due on due Goal Height. Due on d ue Goal UDT. Due on due Goal Weight. Due on d ue Goal Medication Recon ciliation. Due on due Goal Tobacco Use. Due on due Goal Creatinine. Due on due Goal [employer] Scanned. Due on due Goal Order Annual PT. Due on due Goal ALT (SGPT). Due on due Goal Update Social Hi story. Due on due Goal Review Allergy L ist. Due on due Goal AST (SGOT). Due on due Goal UDT. Due on due Goal Weight. Due on d ue Goal Medication Recon ciliation. Due on due Goal [employer] Paperwork. Due on due Goal PHQ-9. Due on du e Goal Height. Due on d ue Goal OARS. Due on due Goal OARS. Due on due Goal ALT (SGPT). Due on due Goal AST (SGOT). Due on due Goal Order Annual PT. Due on due Goal Review Allergy L ist. Due on due Goal Weight. Due on d ue Goal [employer] Scanned. Due on due Goal PHQ-9. Due on du e Goal DR[employer] Paperwork. Due on due Goal Medication Recon ciliation. Due on due Goal Tobacco Use. Due on due Goal UDT. Due on due Goal Update Social Hi story. Due on due Goal Height. Due on d ue Goal Creatinine. Due on due Goal [employer] Scanned. Due on due Goal Order Annual PT. Due on due Goal DRY[employer]ALL [employer] Paperwork. Due on due Goal UDT. Due [...] due Goal OARS. Due on due Goal [employer] Paperwork. Due on due Goal [employer] Scanned. Due on due Goal Review Allergy [...] Goal Height. Due on d ue Goal [employer] Scanned. Due on due Goal OARS. Due on due Goal Creatinine. Due on due Goal Weight. Due on d ue Goal UDT. Due on due Goal AST (SGOT). Due on due Goal Order Annual PT. Due on due Goal PHQ-9. Due on du e Goal DRY[employer]ALL [employer]EM[employer] Paperwork. Due on due Goal Review Allergy [...] Goal Tobacco Use. Due on due Goal [employer] Paperwork. Due on due Goal Review Allergy L ist. Due on due Goal Creatinine. Due on due Goal ALT (SGPT). Due on due Goal Update Social Hi story. Due on due Goal UDT. Due on due Goal OARS. Due on due Goal Weight. Due on d ue Goal [employer] Scanned. Due on due Goal Order Annual PT. Due on due Goal ALT (SGPT). Due on due Goal Tobacco Use. Due on due Goal PHQ-9. Due on du e Goal Update Social Hi story. Due on due Goal [employer] Paperwork. Due on due Goal AST (SGOT). Due on due Goal Medication Recon ciliation. Due on due Goal Height. Due on d ue Goal Weight. Due on d ue Goal Review Allergy L ist. Due on due Goal [employer] Scanned. Due on due Goal Creatinine. Due on due Goal OARS. Due on due Goal UDT. Due on due Goal Tobacco cessation counseling completed Referral Ordered: Azael Regan -Allopathic & Osteopathic Physicians : Family Medicine (related to Radiculopathy, lumbar region) ordered Referral Ordered: [facility] [facility] -[facility] Medicine (related to Radiculopathy, lumbar region) ordered Referral Referred To: [facility] [facility] [address] [place], [phone] Ordered: Referrals: Family Medicine. [employer] [facility] [facility] ordered Referral Ordered: X-RAY EXAM OF HIPS LT hip ordered Referral Ordered: Azael Regan -[facility] Phys[facility] : Family Medicine (related to Postlaminectomy syndrome, not elsewhere classified) ordered Referral Referred To: Azael Regan [facility]
[address] [place], [phone] Ordered: Referrals: Allopathic & Osteopathic Physicians : [...] assessment:Difficulty reaching, lifting, carrying, pushing, pulling, and publicist is hopeful that the SCS device will [...] discomfort. Patient was meeting with Jose from [facility] today and expressed her frustration with charging. [...] heat, lying down, pain meds/drugs and rest. Back Pain Duration: chroni c. The problem [...] TKA on 07/09/[address] Camara from [facility]. [employer] was reviewed and shows pt was rx'ed 2mg Dilaudid max 7/day for post op pain. She was rx'ed #49tabs on 08/23/21, #49tabs on 08/19/21 and #49 tabs on 08/08/21. Her chronic dose at [facility] is #5tabs a day, patient [...] rescheduled for 07/09/[address] Camara from [facility]. Surgeon will manage post-op pain. Lower [...] for [address] Lino or from [facility]. It was canceled due to no hospital beds available with [facility].Expresses her ongoing frustration regarding her lumbar Medtronic [...] scheduled R TKA with Dr. Camara through [facility]. Discussed post-op pain management. Also continues [...] order. She looks forward to reprogramming with [employer] today as she has had questions about [...] Pain has been worse. She went to [facility] two weeks ago with atrial fibrillation. She completed work-up and was put on warfarin. She met with her orthopedist at [facility] regarding her R knee pain. Orthopedist recommended [...] SCS trial. She is looking forward to [employer] SCS trial on 02/[address] Cummings. [...] month due to visiting her daughter in [place]. She realized she can not walk long distances with her walker. Had a injection scheduled with [facility] but [facility] service could not provide her the ride from [place]. She is excited about the recently approved [...] trial.She had a recent lumbar MRI with [facility] and per patient the imaging showed herniation and disc slippage at multiple levels. She said [facility] recommend a injection. With previous injections, she explains having a reaction to the procedure. She scheduled the injection on 12/[address] estrella at [facility].Reports current medication regimen provides at least 20% [...] upcoming appt. with a back surgeon through [facility] next week to be evaluated. 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 States that she has arrythmia although [...] Medtronic SCS trial. 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 She still [...] her medication. Medications are managed by [facility]. Denies side effects.Patient is not [...] been recommended for possible R TKA at [facility], but no date has been scheduled. States her pain causes her lots of anxiety because she has tried many treatments without significant benefit. She is currently enrolled in [facility] at [facility] [...] and other recommended therapies and would like [facility] to assume management of pain care. Functional Status Date Functional Assessmen t No Information Instructions Date Instruction Additional Infor mation No Information Assessments Type Assessment Date assessment Pain in right knee impression S/p right TKA on 12/[address] Camara from [facility]. Has been participating in PT with good benefit. Pain has been worse since [facility] assessment Pain in left ankle and joints of left foot impression Worsening pain in th e left ankle and is considering an ankle fusion assessment Radiculopathy, lumbar region Jul impression Lower back pain with radiation into her BLE, continues to worsen since [facility] assessment Myalgia, other site impression TPIs in the past wit hout benefit. PO muscle relaxers provide moderate relief assessment Postlaminectomy syndrome, not el sewhere classified impression Hx of L4-S1 fusion. She has an SCS implant but may be interested in an explant assessment alf (current) use of opiat e analgesic impression The medication relie ves at least 60% of the pain, does not cause significant side effects, increases the patient's daily activity level. Medication managed by facility.Most of today's visit was spent discussing the patient's recent discharge from the clinic d/t her inappropriate behavior and language used toward staff. Patient expresses frustrations with termination. [employer] terminated.Most recent UDT results reviewed and appropriate. Not appropriate to continue opioid therapy d/t issues with inappropriate behavior. Current MME 30 Mental Status Date Cognitive Assessment Orientation - [place] ed to time, place, person, situation. Patient Care Teams Name Effective Dates (start - stop) Status Members No Information
--- NOTE | 2023-02-06 17:26 | PC.SOCIAL ---
Addendum entered by SÁNCHEZ Altamirano 02/09/23 13:17: Additional notes from phone call with PREETI Vigil at [facility] on 02/06/23. Discussed with Yaritza, that pt has been medically cleared by physician for discharge back to [facility]. Yaritza stated that if pt is discharged back to [facility], they will call the police again and have her sent right back to the hospital by EMS. Per Yaritza, she expected pt to be sent for an in-pt mental health stay from [facility] and that she did not think she would be returning to their facility today. Addendum entered by SÁNCHEZ Altamirano 02/06/23 19:04: weld lay out worker filed [facility] report #[id number]. Addendum entered by SÁNCHEZ Altamirano 02/06/23 18:22: Spoke with pt's dtr, Autumn, by phone regarding discharge plan. Autumn states the facility has not contacted her about any behavior concerns. Dtr states she spoke with a staff person at [facility] who told her pt was being sent to the hospital because they were unable to get the pain medication that was prescribed and would not have any staff to administer it over the weekend even if they could get it. Per dtr, staff told pt the only way she would get pain medication was to come to the hospital, so that is why pt agreed to come to the hospital. Dtr states there is a meeting with the staff at [facility] on Thursday. Dtr would like pt to return to her apartment at [facility] from the hospital. Dtr states that if pt can fill pain medication prescription, then dtr will manage her medications over the weekend as she has been spending a lot of time at pt's apartment. Dtr states that maybe pt can come home with her and spend the weekend with her if the pain medications can be provided. Dtr was appreciative of the phone call and is willing and requesting to be involved with discussions on discharge options. Dtr shared multiple concerns about lack of appropriate caregiving at [facility] by staff, including that pt was not fed for four days and has not been receiving her medications as prescribed. Provided dtr with [facility] reporting contact phone number and informed her of the opportunity for her to make a [facility] report based on her concerns. weld lay out worker to make [facility] report based on concerns shared by dtr and conversation with [facility] nurse, Yaritza. Original Note: Social work: Called DON at [facility] (where pt resides), Yaritza, who states they were instructed by pt's primary care physician, Dr. Smith, to send pt to the hospital for mental health placement. Yaritza states they are unable to accept her back because of her behaviors. She is looking for narcotics at their facility and they will not take her back. Yaritza stated they have filed a [facility] report and are working with the [facility] and have a court case that will determine if she can return. Asked Yaritza what the criteria pt needs to achieve to return to their facility are, and she stated she can not return to the facility. Attempted to contact [facility], Carroll Vargas, and left message as it was after hours. Called [facility] main number , to talk with [facility] non clinical advisor and recorded message stated they are closed for the weekend. weld lay out worker to follow up as needed.
--- NOTE | 2023-02-06 17:44 | ED.NURSE ---
[facility] 17:43:29; case file number: [id number].
[2023-02-06 17:55] LABS: INR 2.65 (0.91-1.10); Prothrombin Time 29.6 Seconds
[2023-02-06 17:56] LABS: Albumin* 3.2 g/dL (3.3-5.0); Chloride* 107 mmol/L (96-114)
[2023-02-06 17:57] LABS: Potassium* 4.1 mmol/L (3.6-5.1); Sodium* 142 mmol/L (135-149)
[2023-02-06 17:59] LABS: Creatinine* 0.5 mg/dL (0.5-1.5); Est. Creatinine Clearance* 45.54; Estimated Glomerular Filt Rate 105 ml/min
[2023-02-06 18:00] LABS: Alanine Aminotransferase* 29 U/L (4-35); Alkaline Phosphatase* 94 U/L (40-150); Anion Gap 7 mEq/L (7-15); Aspartate Amino Transferase* 28 U/L (12-35); Bilirubin Direct* 0.1 mg/dL (0.0-0.5); Bilirubin Total* 0.2 mg/dL (0.1-1.5); Blood Urea Nitrogen* 9 mg/dL (7-30); Calcium* 8.6 mg/dL (8.4-10.6); Carbon Dioxide* 28 mmol/L (20-32); Glucose* 132 mg/dL (60-115); Lipase* 83 U/L (23-300); Magnesium* 2.2 mg/dL (1.5-2.6); Total Protein* 5.9 g/dL (6.0-8.3)
[2023-02-06 18:02] LABS: C Reactive Protein* 2.2 mg/dL (0.5-1.0)
[2023-02-06 18:09] LABS: Basophils Percent Auto 0.5 % (0.0-3.0); Eosinophils Percent Auto 4.8 % (0.0-7.0); Hemoglobin* 10.1 gm/dL (12.0-16.0); Immature Granulocytes Pct Auto 1.3 %; Lymphocytes Percent Auto 22.2 % (20-44); Mean Corpuscular HGB Conc 30 gm/dL (32-36); Mean Corpuscular Hemoglobin 26 pg (26-34); Mean Corpuscular Volume 87 fL (80-100); Monocytes Percent Auto 9.3 % (0.0-11.0); Neutrophils Percent Auto 61.9 % (42.0-72.0); Platelet Count* 172 K/uL (140-440); RDW Coefficient of Variation % 19.3 % (11.5-15.5); Red Blood Count 3.91 m/uL (4.00-5.20); Slide Review Reflex No; White Blood Count* 3.96 K/uL (4.50-11.00)
[2023-02-06 18:13] LABS: Digoxin* 0.7 ng/mL (0.8-2.0)
--- NOTE | 2023-02-06 18:25 | ED.NURSE ---
Patient continues to be calm and cooperative. Video monitoring continues to be in place.
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
[2023-02-06] MEDS: hydrOXYzine pamoate 25 MG CAPSULE 50 MG PO (19:51)
[2023-02-06] MEDS: HYDROmorphone 2 MG TABLET PO (19:51)
[2023-02-06] MEDS: SODIUM CHLORIDE 0.9 % (FLUSH) 10 ML SYRINGE 5 ML IVF (20:47)
[2023-02-06] MEDS: GABAPENTIN 300 MG CAPSULE PO (20:48)
[2023-02-06] MEDS: SENNOSIDES/DOCUSATE TABLET 2 TAB PO (20:48)
[2023-02-06] MEDS: clonazePAM 0.5 MG TABLET PO (20:48)
[2023-02-06] MEDS: ATORVASTATIN CALCIUM 40 MG TABLET PO (20:48)
[2023-02-06] MEDS: METOPROLOL SUCCINATE (XL) 100 MG TAB PO (20:48)
[2023-02-06] MEDS: IPRAT-ALBUT 0.5-2.5 MG/3 ML NEB 1 NEB IH (20:49)
[2023-02-06] MEDS: FLUTICASONE PROPIONATE NASAL 1 SPRAY NOSTRIL-B (21:15)
[2023-02-06] MEDS: PRAZOSIN HCL 1 MG CAPSULE PO (21:15)
[2023-02-06] MEDS: haloperidoL 1 MG TABLET 0.5 MG PO (21:15)
[2023-02-06] MEDS: METFORMIN 500 MG TABLET PO (21:15)
[2023-02-06] MEDS: TOPIRAMATE 25 MG TABLET 50 MG PO (21:18)
--- NOTE | 2023-02-06 22:19 | PC.NURSE ---
Shift [id number]- Patient arrives ~1900 from ED. She is pleasant, cooperative, and oriented. She states abdominal discomfort, understands need to eliminate stool. She states she spurts small amounts during bowel movements. She is up with walker ad tracy. A couple small scabs to face.
[2023-02-07] VITALS (8 sets, daily range): BP systolic 102–144; BP diastolic 75–122; PULSE 82–120; RESP 16–20; TEMP 36.6; O2SAT 94–97
[2023-02-07] MEDS: HYDROmorphone 2 MG TABLET PO ×4 (03:54→17:25)
--- NOTE | 2023-02-07 04:09 | PC.NURSE ---
Patient is alert and oriented. Much more lucid than previous stay. Requesting pain meds. Pleasant and cooperative. Up Walking halls. Afebrile.
[2023-02-07] MEDS: OMEPRAZOLE 20 MG CAPSULE DR PO (06:52)
[2023-02-07] MEDS: METFORMIN 500 MG TABLET PO ×2 (07:35→17:19)
[2023-02-07] MEDS: SENNOSIDES/DOCUSATE TABLET 2 TAB PO ×2 (07:51→20:12)
[2023-02-07] MEDS: polyethylene glycoL 3350 17 GM PACK PO (07:51)
[2023-02-07] MEDS: LIDOCAINE 5% PATCH 1 PATCH TRANSDERMA (09:52)
[2023-02-07] MEDS: CALCIUM CARBONATE 500 MG TABLET PO (09:55)
[2023-02-07] MEDS: clonazePAM 0.5 MG TABLET PO ×2 (09:56→20:13)
[2023-02-07] MEDS: DIGOXIN 125 MCG TABLET PO (09:56)
[2023-02-07] MEDS: FLUTICASONE PROPIONATE NASAL 1 SPRAY NOSTRIL-B ×2 (09:56→20:13)
[2023-02-07] MEDS: IPRAT-ALBUT 0.5-2.5 MG/3 ML NEB 1 NEB IH (09:57)
[2023-02-07] MEDS: lisinopriL 10 MG TABLET PO (09:57)
[2023-02-07] MEDS: GABAPENTIN 300 MG CAPSULE PO ×2 (09:57→20:11)
[2023-02-07] MEDS: haloperidoL 1 MG TABLET 0.5 MG PO ×2 (09:57→20:13)
[2023-02-07] MEDS: SERTRALINE 100 MG TABLET 200 MG PO (09:58)
[2023-02-07] MEDS: LORATADINE 10 MG TABLET PO (09:58)
[2023-02-07] MEDS: METOPROLOL SUCCINATE (XL) 100 MG TAB PO ×2 (09:58→20:13)
[2023-02-07] MEDS: SODIUM CHLORIDE 0.9 % (FLUSH) 10 ML SYRINGE 5 ML IVF ×2 (09:59→20:09)
[2023-02-07] MEDS: TORSEMIDE 20 MG TABLET PO (09:59)
--- NOTE | 2023-02-07 11:37 | P.IMPN_ITS ---
Progress Note: A&P Assessment and plan (1) Abdominal pain: Problem details: Chronic. 02/06/2023 in part related to constipation. Status: Acute (2) Constipation: Problem details: Noted on CT scan of abdomen and pelvis on 02/04/2023 and on abdominal x-ray 02/06/2023. At least in part related to chronic opioid use and inadequate nonpharmacologic and pharmacologic measures to address this. -daily scheduled suppositories for the next 2-3 days -increased fluid intake Status: Acute (3) Chronic, continuous use of opioids: Problem details: Dilaudid p.o. p.r.n. Hydroxyzine p.o. p.r.n. Robinul p.r.n. Scheduled Klonopin b.i.d. Status: Acute (4) Polypharmacy: Problem details: Discontinued multiple medications at time of admission. Will be discharged from hospital and not restart multiple medications that she has not required while in the hospital. As of 02/07/2023 -scheduled gabapentin, Haldol, prazosin -in addition to her other chronic medical, non psychological, medications Status: Acute (5) Polysubstance abuse: Problem details: History of polysubstance abuse with on going continuous use of opioids through pain clinic Status: Acute (6) Microcytic anemia: Problem details: - chronic, likely 2/2 gastric bypass surgery - routine outpatient f/u - Hemoglobin had been trending 12-14 mg/dL. 02/04/2023 hemoglobin dropped to 10. 02/07/2023 hemoglobin remains 10. - Dr. Ro spoke with Dr. Smith her PCP today, 02/07/2023. He is not planning on scoping her any time soon. He feels her chronic iron deficiency anemia is likely related to her history of gastric bypass Status: Acute (7) Other social stressor: Problem details: Her living situation at the [facility] currently seems uncertain, at best. Status: Acute (8) Diabetes mellitus: Problem details: - A1C 7.4 on 10/22/22 - continue home medications with SSI. - 01/17 increased SSI - 01/18 glucose adequate control now. Status: Acute (9) GERD (gastroesophageal reflux disease): Problem details: -increasing omeprazole to 40 mg b.i.d., 1 dose of IV pantoprazole this morning. Status: Acute (10) Hypertension: Problem details: - 01/17 DBP remains elevated. Added lisinopril. - 01/18 BP better control today. Monitor. Status: Acute (11) Chronic back pain: Status: Acute (12) Anxiety: Status: Acute Subjective Date Seen: 02/07/23 Interval history: Daily Progress Note - Hospital Medicine Day #: 2 CC: No meds. OVERNIGHT UPDATES FROM STAFF & MED, LAB, IMAGING UPDATES See admission H&P. Quiet night. Patient is having some heartburn and increased burping today. This is a chronic issue. Ordered some increased PPI cares, Maalox, Tums and a suppository. Really this is just a [place] care situation as Brandee is at her baseline. Objective: better than I've ever seen her. She is up walking with walker, insightful, and at her baseline. Vitals: see above Lungs: Clear. Cardiac: S1S2. Disposition/Potential discharge - Difficult issue. will need supervised setting. Today I spent 50minutes seeing the patient, reviewing Expanse and EPIC notes/diagnostics, discussing the care plan with our care time that includes social work, PT/OT, pharmacy, RT, correction and documenting my impressions and plan in the medical record. Exam Const: Vital Signs, click to edit/add: Vital Signs - 24 hr 02/06/23 12:57 02/06/23 16:58 02/06/23 16:59 Temperature 97.5 F L Pulse Rate 95 Pulse Rate [Pulse Oximeter] Pulse Rate [Right Femoral] 130 H 93 Respiratory Rate 18 14 Blood Pressure 121/87 Blood Pressure [Le ft Arm] Blood Pressure [Ri ght Upper Arm] 122/84 121/87 Pulse Oximetry 97 98 96 Oxygen Delivery Me thod Room Air Room Air 02/06/23 16:59 02/06/23 17:00 02/06/23 17:02 Temperature Pulse Rate 92 107 H 82 Pulse Rate [Pulse Oximeter] Pulse Rate [Right Femoral] Respiratory Rate Blood Pressure 129/100 H Blood Pressure [Le ft Arm] Blood Pressure [Ri ght Upper Arm] Pulse Oximetry 98 97 98 Oxygen Delivery Me thod 02/06/23 17:30 02/06/23 17:32 02/06/23 18:00 Temperature Pulse Rate 97 88 88 Pulse Rate [Pulse Oximeter] Pulse Rate [Right Femoral] Respiratory Rate Blood Pressure 135/98 H Blood Pressure [Le ft Arm] Blood Pressure [Ri ght Upper Arm] Pulse Oximetry 89 98 94 [facility] 02/06/23 18:02 02/06/23 18:30 02/06/23 18:32 Temperature Pulse Rate 97 109 H 101 H Pulse Rate [Pulse Oximeter] Pulse Rate [Right Femoral] Respiratory Rate Blood Pressure 122/95 H 141/84 H Blood Pressure [Le ft Arm] Blood Pressure [Ri ght Upper Arm] Pulse Oximetry 94 91 91 Oxygen Delivery [facility] 02/06/23 19:44 02/06/23 22:25 02/06/23 22:27 Temperature 98 F 98 F Pulse Rate Pulse Rate [Pulse Oximeter] 103 H 112 H Pulse Rate [Right Femoral] Respiratory Rate 22 20 20 Blood Pressure Blood Pressure [Le ft Arm] 135/92 H 118/95 H Blood Pressure [Ri ght Upper Arm] Pulse Oximetry 93 94 94 Oxygen Delivery [facility] Room Air Room Air Room Air 02/06/23 22:27 02/07/23 02:48 02/07/23 07:00 Temperature 98 F Pulse Rate Pulse Rate [Pulse Oximeter] 112 H 96 104 H Pulse Rate [Right Femoral] Respiratory Rate 20 16 18 Blood Pressure Blood Pressure [Le ft Arm] 102/83 Blood Pressure [Ri ght Upper Arm] Pulse Oximetry 96 Oxygen Delivery [facility] 02/07/23 07:00 02/07/23 07:00 02/07/23 09:56 Temperature Pulse Rate 104 H Pulse Rate [Pulse Oximeter] 104 H Pulse Rate [Right Femoral] Respiratory Rate 18 18 Blood Pressure Blood Pressure [Le ft Arm] 142/103 H Blood Pressure [Ri ght Upper Arm] Pulse Oximetry 97 97 [facility] Room Air Labs Labs: Laboratory Results - last 24 hr 02/06/23 02/06/23 02/06/23 13:20 17:24 17:24 WBC 3.96 L RBC 3.91 L Hgb 10.1 L Hct 34.0 MCV 87 MCH 26 MCHC 30 L RDW Coeff of Fito 19.3 H Plt Count 172 Neut % (Auto) 61.9 Lymph % (Auto) 22.2 [place] % (Auto) 9.3 Eos % (Auto) 4.8 Baso % (Auto) 0.5 Neut # (Auto) 2.50 Lymph # (Auto) 0.90 [place] # (Auto) 0.40 Eos # (Auto) 0.20 Baso # (Auto) 0.00 Abs Immat Gran (auto) 0.10 Imm/Tot Granulo (auto) 1.3 INR 2.65 H Sodium 142 Cancelled Potassium 4.1 Chloride Carbon Dioxide Anion Gap BUN Creatinine Estimated Creat Clear Estimated GFR Glucose Calcium Magnesium Total Bilirubin Direct Bilirubin AST ALT Alkaline Phosphatase C-Reactive Protein Total Protein Albumin Lipase Urine Color Yellow Urine Appearance Clear Urine pH 7.0 Ur Specific [place] 1.015 Urine Protein Negative Urine Glucose (UA) Negative Urine Ketones Negative Urine Blood Negative Urine Nitrite Negative Urine Bilirubin Negative Urine Urobilinogen 0.2 Ur Leukocyte Esterase Negative Urine RBC 0-2 Urine WBC 0-2 Ur Squamous Epith Cells Few Urine Bacteria None Digoxin Urine Opiates Screen POSITIVE A Ur Oxycodone Screen Negative Urine Methadone Screen Negative Ur Propoxyphene Screen Negative Ur Barbiturates Screen Negative U Tricyclic Antidepress Negative Ur Phencyclidine Scrn Negative Ur Amphetamines Screen Negative U Methamphetamines Scrn Negative U Benzodiazepines Scrn Negative Urine Cocaine Screen Negative U Marijuana (THC) Screen Negative Ur Drug Screen Comment See Note 02/06/23 02/06/23 02/06/23 17:24 17:24 17:24 WBC RBC Hgb Hct MCV MCH MCHC RDW Coeff of Fito Plt Count Neut % (Auto) Lymph % (Auto) [place] % (Auto) Eos % (Auto) Baso % (Auto) Neut # (Auto) Lymph # (Auto) [place] # (Auto) Eos # (Auto) Baso # (Auto) Abs Immat Gran (auto) Imm/Tot Granulo (auto) INR Sodium Potassium Cancelled Chloride 107 Cancelled Carbon Dioxide 28 Cancelled Anion Gap 7 BUN Creatinine Estimated Creat Clear Estimated GFR Glucose Calcium Magnesium Total Bilirubin Direct Bilirubin AST ALT Alkaline Phosphatase C-Reactive Protein Total Protein Albumin Lipase Urine Color Urine Appearance Urine pH Ur Specific [place] Urine Protein Urine Glucose (UA) Urine Ketones Urine Blood Urine Nitrite Urine Bilirubin Urine Urobilinogen Ur Leukocyte Esterase Urine RBC Urine WBC Ur Squamous Epith Cells Urine Bacteria Digoxin Urine Opiates Screen Ur Oxycodone Screen Urine Methadone Screen Ur Propoxyphene Screen Ur Barbiturates Screen U Tricyclic Antidepress Ur Phencyclidine Scrn Ur Amphetamines Screen U Methamphetamines Scrn U Benzodiazepines Scrn Urine Cocaine Screen U Marijuana (THC) Screen Ur Drug Screen Comment 02/06/23 02/06/23 02/06/23 17:24 17:24 17:24 WBC RBC Hgb Hct MCV MCH MCHC RDW Coeff of Fito Plt Count Neut % (Auto) Lymph % (Auto) [place] % (Auto) Eos % (Auto) Baso % (Auto) Neut # (Auto) Lymph # (Auto) [place] # (Auto) Eos # (Auto) Baso # (Auto) Abs Immat Gran (auto) Imm/Tot Granulo (auto) INR Sodium Potassium Chloride Carbon Dioxide Anion Gap Cancelled BUN 9 Cancelled Creatinine 0.5 Cancelled Estimated Creat Clear 45.54 Estimated GFR Glucose Calcium Magnesium Total Bilirubin Direct Bilirubin AST ALT Alkaline Phosphatase C-Reactive Protein Total Protein Albumin Lipase Urine Color Urine Appearance Urine pH Ur Specific [place] Urine Protein Urine Glucose (UA) Urine Ketones Urine Blood Urine Nitrite Urine Bilirubin Urine Urobilinogen Ur Leukocyte Esterase Urine RBC Urine WBC Ur Squamous Epith Cells Urine Bacteria Digoxin Urine Opiates Screen Ur Oxycodone Screen Urine Methadone Screen Ur Propoxyphene Screen Ur Barbiturates Screen U Tricyclic Antidepress Ur Phencyclidine Scrn Ur Amphetamines Screen U Methamphetamines Scrn U Benzodiazepines Scrn Urine Cocaine Screen U Marijuana (THC) Screen Ur Drug Screen Comment 02/06/23 02/06/23 02/06/23 17:24 17:24 17:24 WBC RBC Hgb Hct MCV MCH MCHC RDW Coeff of Fito Plt Count Neut % (Auto) Lymph % (Auto) [place] % (Auto) Eos % (Auto) Baso % (Auto) Neut # (Auto) Lymph # (Auto) [place] # (Auto) Eos # (Auto) Baso # (Auto) Abs Immat Gran (auto) Imm/Tot Granulo (auto) INR Sodium Potassium Chloride Carbon Dioxide Anion Gap BUN Creatinine Estimated Creat Clear Cancelled Estimated GFR 105 Cancelled Glucose 132 H Cancelled Calcium 8.6 Magnesium Total Bilirubin Direct Bilirubin AST ALT Alkaline Phosphatase C-Reactive Protein Total Protein Albumin Lipase Urine Color Urine Appearance Urine pH Ur Specific [place] Urine Protein Urine Glucose (UA) Urine Ketones Urine Blood Urine Nitrite Urine Bilirubin Urine Urobilinogen Ur Leukocyte Esterase Urine RBC Urine WBC Ur Squamous Epith Cells Urine Bacteria Digoxin Urine Opiates Screen Ur Oxycodone Screen Urine Methadone Screen Ur Propoxyphene Screen Ur Barbiturates Screen U Tricyclic Antidepress Ur Phencyclidine Scrn Ur Amphetamines Screen U Methamphetamines Scrn U Benzodiazepines Scrn Urine Cocaine Screen U Marijuana (THC) Screen Ur Drug Screen Comment 02/06/23 17:24 WBC RBC Hgb Hct MCV MCH MCHC RDW Coeff of Fito Plt Count Neut % (Auto) Lymph % (Auto) [place] % (Auto) Eos % (Auto) Baso % (Auto) Neut # (Auto) Lymph # (Auto) [place] # (Auto) Eos # (Auto) Baso # (Auto) Abs Immat Gran (auto) Imm/Tot Granulo (auto) INR Sodium Potassium Chloride Carbon Dioxide Anion Gap BUN Creatinine Estimated Creat Clear Estimated GFR Glucose Calcium Cancelled Magnesium 2.2 Total Bilirubin 0.2 Direct Bilirubin 0.1 AST 28 ALT 29 Alkaline Phosphatase 94 C-Reactive Protein 2.2 H Total Protein 5.9 L Albumin 3.2 L Lipase 83 Urine Color Urine Appearance Urine pH Ur Specific [place] Urine Protein Urine Glucose (UA) Urine Ketones Urine Blood Urine Nitrite Urine Bilirubin Urine Urobilinogen Ur Leukocyte Esterase Urine RBC Urine WBC Ur Squamous Epith Cells Urine Bacteria Digoxin 0.7 L Urine Opiates Screen Ur Oxycodone Screen Urine Methadone Screen Ur Propoxyphene Screen Ur Barbiturates Screen U Tricyclic Antidepress Ur Phencyclidine Scrn Ur Amphetamines Screen U Methamphetamines Scrn U Benzodiazepines Scrn Urine Cocaine Screen U Marijuana (THC) Screen Ur Drug Screen Comment
[2023-02-07] MEDS: MAG HYDROX/ALUMINUM HYD/SIMETH 30 ML ORAL.SUSP 15 ML PO (11:40)
[2023-02-07] MEDS: PANTOPRAZOLE SODIUM 40 MG INJ IVP (11:41)
[2023-02-07] MEDS: TORSEMIDE 5 MG TABLET PO (12:09)
--- NOTE | 2023-02-07 18:55 | PC.NURSE ---
Nursing Care Hours: [id number] pt this shift alert and oriented. Calm and cooperative. Some restlessness throughout day d/t abdominal discomfort. BS active, pt reports passing gas and sm formed BM. C/o heartburn followed by emesis x2. New orders in place, effective for sx. Pt states feeling better after PRN treatments. C/o chronic back pain, treated per eMAR. Pt accepted heating pad for back. Educated on bowel elimination techniques such as walking and water. Discussed eating small frequent meals throughout day vs large meals d/t abdominal pressure. Insulin given per sliding scale. Pt refused warfarin d/t scheduled colonoscopy on Thursday. Alignment Specialist discussed the possibility of patient needing to reschedule d/t not having the colon cleanse prep. Pt did not feel comfortable taking warfarin and so non admistered.
[2023-02-07] MEDS: TOPIRAMATE 25 MG TABLET 50 MG PO (20:10)
[2023-02-07] MEDS: ATORVASTATIN CALCIUM 40 MG TABLET PO (20:12)
[2023-02-07] MEDS: OMEPRAZOLE 20 MG CAPSULE DR 40 MG PO (20:12)
[2023-02-07] MEDS: PRAZOSIN HCL 1 MG CAPSULE PO (20:15)
[2023-02-07] MEDS: PRAZOSIN HCL 1 MG CAPSULE 2 MG PO (20:16)
[2023-02-08] VITALS (9 sets, daily range): BP systolic 103–138; BP diastolic 81–97; PULSE 73–95; RESP 14–18; TEMP 36.4–36.8; O2SAT 94–97
[2023-02-08] MEDS: HYDROmorphone 2 MG TABLET PO ×6 (02:36→22:31)
--- NOTE | 2023-02-08 06:05 | PC.NURSE ---
Pt pleasant cooperative. IND in room. No change in status.
[2023-02-08] MEDS: METFORMIN 500 MG TABLET PO ×2 (07:41→17:51)
--- NOTE | 2023-02-08 07:49 | P.IMPN_ITS ---
Progress Note: A&P Assessment and plan (1) Abdominal pain: Problem details: -improved but chronic. likely related to opioid induced constipation. Status: Acute (2) Constipation: Problem details: Noted on CT scan of abdomen and pelvis on 02/04/2023 and on abdominal x-ray 02/06/2023. At least in part related to chronic opioid use and inadequate nonpharmacologic and pharmacologic measures to address this. -daily scheduled suppositories for the next 2-3 days -increased fluid intake Status: Acute (3) Chronic, continuous use of opioids: Problem details: Dilaudid p.o. p.r.n. Hydroxyzine p.o. p.r.n. Robinul p.r.n. Scheduled Klonopin b.i.d. Status: Acute (4) Polypharmacy: Problem details: Discontinued multiple medications at time of admission. Will be discharged from hospital and not restart multiple medications that she has not required while in the hospital. As of 02/07/2023 -scheduled gabapentin, Haldol, prazosin -in addition to her other chronic medical, non psychological, medications Status: Acute (5) Polysubstance abuse: Problem details: History of polysubstance abuse with on going continuous use of opioids through pain clinic Status: Acute (6) Microcytic anemia: Problem details: - chronic, likely 2/2 gastric bypass surgery - routine outpatient f/u - Hemoglobin had been trending 12-14 mg/dL. 02/04/2023 hemoglobin dropped to 10. 02/07/2023 hemoglobin remains 10. - Dr. Ro spoke with Dr. Smith her PCP today, 02/07/2023. He is not planning on scoping her any time soon. He feels her chronic iron deficiency anemia is likely related to her history of gastric bypass Status: Acute (7) Other social stressor: Problem details: Her living situation at the [facility] [place] currently seems uncertain, at best. Status: Acute (8) Diabetes mellitus: Problem details: - A1C 7.4 on 10/22/22 - continue home medications with SSI. - 01/17 increased SSI - 01/18 glucose adequate control now. Status: Acute (9) GERD (gastroesophageal reflux disease): Problem details: -increasing omeprazole to 40 mg b.i.d., 1 dose of IV pantoprazole this morning. Status: Acute (10) Hypertension: Problem details: - 01/17 DBP remains elevated. Added lisinopril. - 01/18 BP better control today. Monitor. Status: Acute (11) Chronic back pain: Status: Acute (12) Anxiety: Status: Acute Subjective Date Seen: 02/08/23 Interval history: Daily Progress Note - Hospital Medicine #: 3 CC: No meds. OVERNIGHT UPDATES FROM STAFF & MED, LAB, IMAGING UPDATES Quiet night. Afebrile. Blood pressure is stable. Pulse rate is 80s to 90s. Respiratory rate is unlabored. She is on pauline air. RN: Pt jhonatan arteaga. IND in room. No change in status. Really this is just a correction care situation as Brandee is at her baseline. Objective: better than I've ever seen her. She is up walking with walker, insightful, and at her baseline. Vitals: see above Lungs: Clear. Cardiac: S1S2. Disposition/Potential discharge - Difficult issue. will need supervised setting. Today I spent 50minutes seeing the patient, reviewing Expanse and EPIC notes/diagnostics, discussing the care plan with our care time that includes social work, PT/OT, pharmacy, RT, fpc and documenting my impressions and plan in the medical record. Exam Const: Vital Signs, click to edit/add: Vital Signs - 24 hr 02/07/23 09:56 02/07/23 11:00 02/07/23 15:00 Temperature Pulse Rate 104 H Pulse Rate [Pulse Oximeter] 112 H 120 H Respiratory Rate 20 20 Blood Pressure [Le ft Arm] 144/122 H Pulse Oximetry 95 Oxygen Delivery Me thod Room Air 02/07/23 15:00 02/07/23 15:00 02/07/23 19:16 Temperature 98 F Pulse Rate Pulse Rate [Pulse Oximeter] 120 H 106 H Respiratory Rate 20 20 18 Blood Pressure [Le ft Arm] 120/83 109/75 Pulse Oximetry 94 94 96 Oxygen Delivery Me thod Room Air Room Air Room Air 02/07/23 22:41 02/07/23 22:41 02/07/23 22:49 Temperature 98 F Pulse Rate Pulse Rate [Pulse Oximeter] 106 H 82 Respiratory Rate 18 18 18 Blood Pressure [Le ft Arm] 109/75 Pulse Oximetry 96 94 Oxygen Delivery Me thod Room Air Room Air 02/08/23 02:37 Temperature 98 F Pulse Rate Pulse Rate [Pulse Oximeter] 90 Respiratory Rate 16 Blood Pressure [Le ft Arm] 131/88 Pulse Oximetry 95 Oxygen Delivery Me thod Room Air
[2023-02-08] MEDS: clonazePAM 0.5 MG TABLET PO ×2 (09:38→20:11)
[2023-02-08] MEDS: OMEPRAZOLE 20 MG CAPSULE DR 40 MG PO ×2 (09:39→20:11)
[2023-02-08] MEDS: GABAPENTIN 300 MG CAPSULE PO ×2 (09:39→20:10)
[2023-02-08] MEDS: DIGOXIN 125 MCG TABLET PO (09:39)
[2023-02-08] MEDS: SERTRALINE 100 MG TABLET 200 MG PO (09:40)
[2023-02-08] MEDS: CALCIUM CARBONATE 500 MG TABLET PO (09:40)
[2023-02-08] MEDS: haloperidoL 1 MG TABLET 0.5 MG PO ×2 (09:40→20:12)
[2023-02-08] MEDS: METOPROLOL SUCCINATE (XL) 100 MG TAB PO ×2 (09:40→20:11)
[2023-02-08] MEDS: SENNOSIDES/DOCUSATE TABLET 2 TAB PO ×2 (09:41→20:12)
[2023-02-08] MEDS: lisinopriL 10 MG TABLET PO ×2 (09:41)
[2023-02-08] MEDS: TORSEMIDE 20 MG TABLET PO (09:42)
[2023-02-08] MEDS: IPRAT-ALBUT 0.5-2.5 MG/3 ML NEB 1 NEB IH (09:42)
[2023-02-08] MEDS: polyethylene glycoL 3350 17 GM PACK PO (09:42)
[2023-02-08] MEDS: TORSEMIDE 5 MG TABLET PO (09:42)
[2023-02-08] MEDS: LORATADINE 10 MG TABLET PO (09:42)
[2023-02-08] MEDS: FLUTICASONE PROPIONATE NASAL 1 SPRAY NOSTRIL-B ×2 (09:43→20:14)
[2023-02-08] MEDS: bisacodyL 10 MG SUPP.RECT PR (09:43)
[2023-02-08] MEDS: SODIUM CHLORIDE 0.9 % (FLUSH) 10 ML SYRINGE 5 ML IVF ×2 (09:52→20:13)
[2023-02-08] MEDS: LIDOCAINE 5% PATCH 1 PATCH TRANSDERMA (10:20)
[2023-02-08] MEDS: WARFARIN 2.5 MG TABLET PO (17:18)
[2023-02-08] MEDS: hydrOXYzine pamoate 25 MG CAPSULE 50 MG PO (17:57)
--- NOTE | 2023-02-08 17:59 | PC.NURSE ---
End of Shift: Patient pleasant and cooperative. Patient vitally stable, lungs clear, BS WNL, IV SL and intact. Patient independent in room. Patient rates pain at most 7/10, dilauded given every 4 hours. Patient had large formed BM today and urinating well. Patient reported a deep good itchiness, 25 of Vistaril given. Patient tolerating regular diet blood sugars 177, 169, 184. Lidocaine patch on mid lower back. Patient showered today.
[2023-02-08] MEDS: TOPIRAMATE 25 MG TABLET 50 MG PO (20:11)
[2023-02-08] MEDS: ATORVASTATIN CALCIUM 40 MG TABLET PO (20:13)
[2023-02-08] MEDS: PRAZOSIN HCL 1 MG CAPSULE 2 MG PO (20:13)
[2023-02-08] MEDS: PRAZOSIN HCL 1 MG CAPSULE PO (20:13)
[2023-02-09 02:49] VITALS: BP 114/95; PULSE 90; RESP 18; TEMP 36.8; O2SAT 95
[2023-02-09] MEDS: HYDROmorphone 2 MG TABLET PO ×2 (04:14→08:13)
[2023-02-09 07:00] VITALS: BP 108/73; PULSE 82; RESP 18; TEMP 36.7; O2SAT 94
[2023-02-09] MEDS: METFORMIN 500 MG TABLET PO (07:43)
[2023-02-09] MEDS: OMEPRAZOLE 20 MG CAPSULE DR 40 MG PO (07:45)
[2023-02-09] MEDS: NON-FORMULARY MEDICATION 1 EACH TOPICAL (08:13)
[2023-02-09] MEDS: polyethylene glycoL 3350 17 GM PACK PO (09:29)
[2023-02-09] MEDS: LORATADINE 10 MG TABLET PO (09:29)
[2023-02-09] MEDS: SERTRALINE 100 MG TABLET 200 MG PO (09:29)
[2023-02-09 09:30] VITALS: PULSE 95
[2023-02-09] MEDS: GABAPENTIN 300 MG CAPSULE PO (09:30)
[2023-02-09] MEDS: CALCIUM CARBONATE 500 MG TABLET PO (09:30)
[2023-02-09] MEDS: DIGOXIN 125 MCG TABLET PO (09:30)
[2023-02-09] MEDS: clonazePAM 0.5 MG TABLET PO (09:30)
[2023-02-09] MEDS: METOPROLOL SUCCINATE (XL) 100 MG TAB PO (09:30)
[2023-02-09] MEDS: SENNOSIDES/DOCUSATE TABLET 2 TAB PO (09:30)
[2023-02-09] MEDS: TORSEMIDE 20 MG TABLET PO (09:30)
[2023-02-09] MEDS: IPRAT-ALBUT 0.5-2.5 MG/3 ML NEB 1 NEB IH (09:31)
[2023-02-09] MEDS: haloperidoL 1 MG TABLET 0.5 MG PO (09:31)
[2023-02-09] MEDS: FLUTICASONE PROPIONATE NASAL 1 SPRAY NOSTRIL-B (09:31)
[2023-02-09] MEDS: LIDOCAINE 5% PATCH 1 PATCH TRANSDERMA (09:32)
[2023-02-09] MEDS: bisacodyL 10 MG SUPP.RECT PR (09:35)
[2023-02-09] MEDS: TORSEMIDE 5 MG TABLET PO (09:35)
--- NOTE | 2023-02-09 10:51 | P.DS_ITS ---
DS: Providers Provider Date Seen: 02/09/23 Date of admission: 02/06/23 18:57 Primary care physician: Aleksey Smith MD Admitting Clinician: Wayne Munoz MD Attending Physician on discharge: Val Teran MD Date of Discharge: 02/09/23 DS: Diagnosis Discharge Diagnosis (1) Chronic, continuous use of opioids: Status: Acute Problem details: - receives #150 of Dilaudid 2mg tabs from the pain clinic monthly per PREASSEMBLER AND INSPECTOR review (2) Polysubstance abuse: Status: Acute Problem details: - history (3) Microcytic anemia: Status: Acute Problem details: - chronic, likely 2/2 gastric bypass surgery - Hemoglobin had been trending 12-14; noted to be 10 on 02/04/23 admission - no evidence of acute bleeding, normal BUN - Dr. Ro spoke PCP Luis on 02/07, will follow this as an outpatient. Given history of gastric bypass, doesn't need urgent scope (4) Anticoagulant long-term use: Status: Acute Problem details: - on warfarin for afib with lifelong goal of INR 2-3 - will require ongoing monitoring of INR and adjustment of warfarin (5) Abdominal pain: Status: Acute Problem details: - improved but chronic. likely related to opioid induced constipation - better on 02/09 (6) Constipation: Status: Acute Problem details: - noted on CT Ab/pelvis 02/04/2023; chronic opiates contributing - daily scheduled suppositories for the next 2-3 days - increased fluid intake DS: Summary Hospital Course Hospital Course: Patient admitted to the hospital on 02/06 for acute on chronic abdominal pain. She was found to have fairly severe constipation on imaging (both CT and x-ray) without associated symptoms. No evidence of obstruction noted. She was ambulating, passing gas, tolerating p.o. intake, and did have a bowel movement during stay. She felt comfortable with discharge home on 02/09. She did not have access to her chronic opiates (on 2 mg of hydromorphone every 4-6 hours; receives #150 tabs per month through her pain clinic). Brandee had a lengthy hospital stay in December, was discharged back to her assisted living facility on 01/29. During this time period, the assisted living facility destroyed her oral hydromorphone and patient did not have an appointment with her clinic set up until this Thursday, 02/13. I called patient's assisted living facility to confirm that her medications had been destroyed, and prescribed a 5 day course to bridge her until her appointment on Thursday. Discussed that tapering opiates would be a good idea given her chronic constipation and acute on chronic abdominal pain. Brandee is pre contemplative regarding this recommendation. Status at Discharge Functional status at discharge: uses cane/walker Overall status at discharge: patient is back to baseline Time Spent with Patient Time attestation: Total time spent providing and/or coordinating discharge services: Time spent: Greater than 30 minutes Specific discharge activities: Medication reconciliation, discussing plan of care with Pain Clinic and patient, update to family and assisted living center Exam Narrative: Exam Narrative: GEN: Alert and answering questions appropriately HEENT: Poor dentition without evidence of acute infection, no scleral icterus CV: RRR, No concerning murmurs, rubs, or gallops R: LCTA bilaterally without concerning wheezing, rales, or rhonchi Ext: wwp, no concerning edema Neuro: No focal deficits, no resting tremor Psych: Appears to have mild cognitive impairment, no agitation, fairly appropriate with responses Const: Vital Signs, click to edit/add: Vital Signs - 24 hr 02/08/23 11:00 02/08/23 15:24 02/08/23 15:24 Temperature 97.5 F L 97.8 F Pulse Rate Pulse Rate [Pulse Oximeter] 89 73 73 Respiratory Rate 16 14 14 Blood Pressure [Le ft Arm] 138/92 H 135/81 Pulse Oximetry 94 95 Oxygen Delivery Ny thod Room Air Room Air 02/08/23 15:24 02/08/23 19:15 02/08/23 22:34 Temperature 98.2 F 98.2 F Pulse Rate Pulse Rate [Pulse Oximeter] 90 95 Respiratory Rate 14 16 16 Blood Pressure [Le ft Arm] 127/95 H 111/97 H Pulse Oximetry 95 97 [facility] Room Air 02/08/23 23:23 02/08/23 23:23 02/09/23 02:49 Temperature 98.2 F Pulse Rate Pulse Rate [Pulse Oximeter] 95 90 Respiratory Rate 16 18 18 Blood Pressure [Le ft Arm] 114/95 H Pulse Oximetry 95 95 [facility] Air 02/09/23 07:00 02/09/23 07:00 02/09/23 07:00 Temperature 98.1 F Pulse Rate Pulse Rate [Pulse Oximeter] 82 82 Respiratory Rate 18 18 Blood Pressure [Le ft Arm] 108/73 Pulse Oximetry 94 94 Oxygen Delivery Me thod Room Air Room Air 02/09/23 09:30 Temperature Pulse Rate 95 Pulse Rate [Pulse Oximeter] Respiratory Rate Blood Pressure [Le ft Arm] Pulse Oximetry Oxygen Delivery Me thod DS: Data Data Completed and Pending Completed studies during hospitalization: Procedures Detoxification Services for Substance Abuse Treatment (01/08/23) Discharge Plan Discharge Disposition: Xfer Other Date of Admission: 02/06/23 18:57 Attending Provider on Discharge: Val Teran Primary Care Provider: Aleksey Smith Condition: Stable Anticipated Discharge Date/Time: 02/09/23 10:43 Discharge Medications: New hydromorphone 2 mg Tablet 2 mg PO Q4H PRNQty: 25 0RF Rx Instructions: Max of 5 tabs in 24 hours. No refill until f/u with Pain Clinic on 02/13 Continued loratadine 10 mg tablet 10 mg PO DAILY metformin 500 mg tablet 500 mg PO BID sertraline 100 mg tablet 200 mg PO DAILY atorvastatin 40 mg tablet 40 mg PO HS Emgality Pen 120 mg/mL pen injector 120 mg subcut .MONTHLY Patient Comments: once monthly cyanocobalamin (vitamin B-12) 1,000 mcg/mL solution 1,000 mcg IM .MONTHLY albuterol sulfate 90 mcg/actuation HFA aerosol inhaler 2 puff inhalation Q4H PRN fluticasone propionate 50 mcg/actuation spray,suspension 1 spray intranasal BID azelastine 137 mcg (0.1 %) aerosol,spray 1 spray intranasal BID Patient Comments: [NO ORIGINAL SIG] nystatin 100,000 unit/gram powder 1 applic topical BID PRN ondansetron 4 mg tablet,disintegrating 4 mg PO Q8H PRN ketoconazole 2 % shampoo 1 applic topical .3X/WEEK PRN triamcinolone acetonide 0.1 % cream 1 applic topical BID PRN fluticasone propion-salmeterol [Wixela Inhub] 250-50 mcg/dose blister with device 1 ea inhalation BID hydroxyzine HCl 50 mg tablet 50 mg PO Q6H PRN acetaminophen 500 mg tablet 1,000 mg PO Q8H PRN calcium carbonate 500 mg/5 mL (1,250 mg/5 mL) suspension 500 mg PO DAILY Beano Ultra 800 mg PO TIDWMEAL lidocaine 5 % adhesive patch,medicated 1 patch topical DAILY prazosin 1 mg capsule 1 mg PO HS prazosin 2 mg capsule 2 mg PO HS topiramate 25 mg tablet 50 mg PO HS chlorhexidine gluconate 0.12 % mouthwash 15 ml PO BID Rx Instructions: swish and spit diclofenac sodium 1 % gel 1 ea topical QID PRN ipratropium-albuterol 0.5 mg-3 mg(2.5 mg base)/3 mL solution for nebulization 3 ml INHALATION BID carboxymethylcellulose sodium [Refresh Liquigel] 1 % drops, liquid gel 1 drp ophthalmic (eye) QID PRN naloxone 4 mg/actuation spray,non-aerosol 1 spray INTRANASAL DIRECTED PRN sumatriptan succinate 50 mg tablet 50 mg PO DIRECTED PRN ammonium lactate 12 % lotion 1 applic topical BID PRN Biotene Dry Mouth Oral Rinse Mouthwash 15 ml mucous membrane QID PRN Rx Instructions: swish for 15-30 secs , then spit out; do not swallow Replens Gel 1 ea vaginal Q72H PRN torsemide 20 mg Tablet 20 mg PO DAILY 30 Days Qty: 30 1RF loperamide 2 mg Capsule 2 mg PO Q2H PRN30 Days Qty: 30 0RF polyethylene glycol 3350 [Miralax] 17 gram Powder In Packet 17 g PO DAILY 30 Days Qty: 30 1RF clonazepam 0.5 mg Tablet 0.5 mg PO BID 30 Days Qty: 60 0RF metoprolol succinate 100 mg Tablet Extended Release 24 Hr 100 mg PO BID 30 Days Qty: 60 1RF haloperidol 1 mg Tablet 0.5 mg PO BID 30 Days Qty: 30 1RF ropinirole 0.25 mg Tablet 0.5 mg PO HS PRN (Reason: restless leg) 30 Days Qty: 60 1RF torsemide 5 mg Tablet 5 mg PO DAILY 30 Days Qty: 30 1RF lisinopril 10 mg Tablet 10 mg PO DAILY 30 Days Qty: 30 1RF omeprazole 20 mg Capsule,Delayed Release(Dr/Ec) 20 mg PO DAILY@0700 30 Days Qty: 30 1RF digoxin 125 mcg (0.125 mg) Tablet 125 mcg PO DAILY 30 Days Qty: 30 1RF clotrimazole 1 % Cream 1 applic topical BID 14 Days Qty: 14 1RF glycerin (adult) [Fleet Glycerin (Adult)] Suppository 1 supp MS DAILY PRN (Reason: Abdominal Distention) 30 Days Qty: 12 0RF hydromorphone 2 mg Tablet 2 mg PO Q6H PRN30 Days Qty: 20 0RF gabapentin 300 mg capsule 300 mg PO BID Qty: 60 2RF warfarin 2.5 mg tablet 2.5 mg PO DAILY Qty: 30 2RF Discharge Orders: Discharge Order (Routine); Ordered 02/09/23 Ordered By: Val Teran Additional Instructions: We are sending you home with a short course of pain medications (same dose as with Pain Clinic, no more that 5 tabs/24 hours). You have an appointment at the Pain Clinic's [place] location on 02/13 at NOON. Make sure you keep that appointment to discuss [facility] pain management plan. Activity Level: Activity as Tolerated Discharge Diet: Regular Follow Up Appointments: Aleksey Smith MD [Primary Care Provider] - 02/10/23 9:30 am ([facility] appt already scheduled at the [facility] pain clinic in [place] on Thursday, 02/13 at noon.) [facility]: [facility]
--- NOTE | 2023-02-09 11:34 | PC.SOCIAL ---
Discharge plan: At pt request, called [employer] for transport at 12:30. [facility] to pay for this transport at discharge.
--- NOTE | 2023-02-09 12:39 | PC.NURSE ---
End of shift-- Pleasant and cooperative, alert and oriented patient discharged to [facility] (where patient resides) at 12:30pm via [facility]. VSS and pt is afebrile. SPO2 maintained >90% on RA. Back pain appears to be well managed with PO Dilaudid q4-6 hours PRN and lidocaine patch which was applied this morning. LS CTA. BS+ x4 and pt was given suppository per MD order this morning with small result. She denied nausea and ate a regular diet independently without difficulty. SL was removed with tip intact.
== END 2023-02-09 12:30 | disposition other institution (70) ==
LOC: ED 18:19 → MEDSURG 18:58
PROVIDERS: Admitting Provider Internal Medicine; Emergency Provider Family Medicine; PCP Internal Medicine; Visit Provider Internal Medicine
DX: K59.00 Constipation, unspecified (principal); Z79.891 Long term (current) use of opiate analgesic; D64.9 Anemia, unspecified; Z65.9 Problem related to unspecified psychosocial circumstances; E11.9 Type 2 diabetes mellitus without complications; K21.9 Gastro-esophageal reflux disease without esophagitis; I10 Essential (primary) hypertension; I48.91 Unspecified atrial fibrillation; D50.9 Iron deficiency anemia, unspecified; R12 Heartburn; M54.9 Dorsalgia, unspecified; G89.29 Other chronic pain; F41.9 Anxiety disorder, unspecified; F17.290 Nicotine dependence, other tobacco product, uncomplicated; R11.10 Vomiting, unspecified; Z79.899 Other long term (current) drug therapy; R10.9 Unspecified abdominal pain; F19.10 Other psychoactive substance abuse, uncomplicated; Z79.01 Long term (current) use of anticoagulants; Z79.84 Long term (current) use of oral hypoglycemic drugs; Z87.898 Personal history of other specified conditions; Z96.643 Presence of artificial hip joint, bilateral; Z96.612 Presence of left artificial shoulder joint; Z96.651 Presence of right artificial knee joint; Z98.890 Other specified postprocedural states; Z87.19 Personal history of other diseases of the digestive system; Z90.711 Acquired absence of uterus with remaining cervical stump; Z98.84 Bariatric surgery status
CPT/HCPCS: 36415; 74018; 80048; 80076; 80162; 80306; 81001; 82962; 83690; 83735; 85025; 85610; 86140; 94640; 96361; 96372; 96374; 99284; 99285; A9270; C9113; G0378; J1790; J7030

== ENCOUNTER 2023-02-16 13:41 | Outpatient (CLI) | payer OTHER, SELFPAY ==
--- OUTSIDE RECORDS SUMMARY | 2023-02-16 13:44 | XMS_ITS | Continuity of Care Document ---
Author Name Unknown Organization [facility] Address [address] [place] [id number] Care Team Providers Care Institutional Cook Name Role Phone Simba Lowry CRNA Unavailable Unavailable Procedures Procedure Date ANESTH, HEAD/NECK/PTRUNK ANESTH PERC IMG TX SP PROC Advance Directives Directive Yes / No Effective Date File Name No Information Encounters Encounter Description Practice Location Reason(s) For Visit Diagnoses Date Provider Providers Copied on Encounter [facility], [address] [place] [address], [id number], [facility] No Information Alen Cottrell. [address] [place] [address], [id number], . tel:[phone] Referring Provider: Michelle Cummings, [address] [place] [address], [address] . tel:[phone] [facility], [address] [place] [address], [id number], [facility] No Information Asad Ramirez. [address], [place], [place], [id number], . tel:[phone] Referring Provider: Too Del Cid, [address] [place], [address] . tel:[phone] Family History Family Member Type Diagnosis Age [...]
--- OUTSIDE RECORDS SUMMARY | 2023-02-16 13:44 | XMS_ITS | Continuity of Care Document ---
Author Name Unknown Organization [facility] Address [address] [place] [id number] Care Team Providers Care Communications Instructor Name Role Phone [facility] Unavailable Unav ailable Procedures Procedure Date [...] Diagnoses Date Provider Providers Copied on Encounter [facility], [address] [place] [address], [id number], [facility] No Information [facility]. [address] [place], [place], [id number], [place]. tel:[phone] Referring Provider: Michelle Cummings, [address] [place], [address]. tel:[phone] [facility], [address] [place], [place], [id number], [facility] No Information [facility]. [address] [facility] [place], [place], [id number], [place]. tel:[phone] Referring Provider: Too Del Cid, [address] [place], [address]. tel:[phone] [facility], [address] [place], [place], [id number], [place] [facility] No Information [facility]. [address] [place], [place], [id number], . tel:[phone] Referring Provider: Michelle Cummings, [address] [place], [address]. tel:[phone] Family History Family Member Type Diagnosis Age [...]
--- OUTSIDE RECORDS SUMMARY | 2023-02-16 13:44 | XMS_ITS | Continuity of Care Document ---
Author Name Unknown Organization [facility] Address [address] [place] [address] Phone Care Team Providers Care Group Activities Aide Name Role Phone Odalys BOLES, Homar Unavailable [...] C, [address], [place], [id number], [place] tel:[phone] [facility] No Information 8 Odalys Graf. [facility], [address] [place] [address] [address], [place], [place], [id number] , [place]. tel:[phone] [facility], [address], [place], [place], [id number], [place] tel:[phone] [facility] No Information 8 Odalys Graf. [facility], [address] [place] [address] [address], [place], [place], [id number] , [place]. tel:[phone] [facility], [address], [place], [id number], [place] tel:[phone] [facility] No Information 8 Rodrick Pop. [facility], [address] [place] [address] [address], [place], [place], [id number] , [place]. tel:[phone] Referring Provider: Homar Morrow, [facility] [address] [place] [address] [address], [place], [address] . tel:[phone] [facility], [address], [place], [id number], [place] tel:[phone] [facility] No Information 6 8 Odalys Graf. [facility], [address], [place], [place], [id number] , [place]. [phone] Referring Provider: Homar Morrow, [facility] [address], [place], [address] . tel:[phone] Office/Outpat ient Visit,Est, Mod [facility], [address], [place], [id number], [place] tel:[phone] [facility] Spinal stenosis, lumbar region 5 7 Odalys Graf. [facility], [address], [place], [id number] , [place]. [phone] Referring Provider: Homar Morrow, [facility] [address], [place], [address] . tel:[phone] [facility], [address], [place], [id number], [place] tel:[phone] [facility] Spinal stenosis, lumbar region 0-201 6 Odalys Graf. [facility], [address], [place], [id number] , [place]. [phone] Referring Provider: Homar Morrow, [facility] [address], [place], [address] . tel:[phone] [facility], [address], [place], [id number], [place] tel:[phone] [facility] Arthrodesis status 1-201 6 Odalys Graf. [facility], [address], [place], [id number] , [place]. [phone] [facility], [address], [place], [id number], [place] tel:[phone] [facility] No Information Sep-2 6 Odalys Rowlandin. [facility], [address], [place], [id number] , [place]. tel:[phone] Referring Provider: Homar Morrow, [facility] [address], [place], [address] . tel:[phone] Family History Family Member Type Diagnosis Age At Onset No Information Payers Payer name Insurance type Covered libertarian ID Authoreneida aaron(s) Medicare [id number] Social History Type Description Quantity Date Captured [...]
--- OUTSIDE RECORDS SUMMARY | 2023-02-16 13:45 | XMS_ITS | Continuity of Care Document ---
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, [address] [place], [place], [id number] , [place] tel:[phone] [facility] [place] Widespread pain (chief complaint) Pain in right kneePain in left ankle and joints of left footRadiculopa thy, lumbar regionMyalgia, other sitePostlamine ctomy syndrome, not elsewhere classifiedLong term (current) use of opiate analgesic 3 Mayra Rapp. [address], [place], [place], [id number] , [place]. tel:[phone] anticoagulant prescriber: Aleksey Smith [address], [address]. tel:[phone] Provider: Too Del Cid, [address] [place], [address]. tel:[phone] OFFICE VISIT, [facility], [address] [place], [place], [id number] , [place] tel:[phone] [facility] Widespread pain (chief complaint) Postlaminectom y syndrome, not elsewhere classifiedRadi culopathy, lumbar regionMyalgia, other sitePain in left ankle and joints of left footPain in right kneeLong term (current) use of opiate analgesic 3 Shay Morales. [address] [place], [place], [id number] , [place]. tel:[phone] anticoagulant prescriber: Aleksey Smith [address] [place], [address]. tel:[phone] [facility], [address] [place] [address], [id number] , [place] tel:[phone] [facility] [place] pain (chief complaint) Postlaminectom y syndrome, not elsewhere classified 2 Indu Dalal. [address] [place], [place], [id number] , [place]. tel:[phone] Psych Dx Eval [facility], [address] [place] [address], [id number] , [place] tel:[phone] Telehealth Pain disorder with related psychological factorsPost-tr aumatic stress disorder, unspecified 2 Tess Cristiano Peg. [address] [place] [address], [id number] , [place]. tel:[phone] Referring Provider: Too Del Cid, [address] [place] [address], [address]. tel:[phone] Psych Dx Eval [facility], [address] [place] [address], [id number] , [place] tel:[phone] Telehealth Pain disorder with related psychological factorsAnxiety disorder 2 Tess Cirstiano Peg. [address] [place] [address], [id number] , [place]. tel:[phone] OFFICE/OUTPAT IENT VISIT, [facility], [address] [place] [address], [id number] , [place] tel:[phone] [facility] [place] Widespread pain (chief complaint) Pain in right hipPain in right kneePain in left ankle and joints of left footRadiculopa thy, lumbar regionPostlami nectomy syndrome, not elsewhere classifiedLong term (current) use of opiate analgesicMyalg ia, other site 2 Heriberto Gage. [address] [place] [address], [id number] , [place]. tel:[phone] anticoagulant prescriber: Aleksey Smith, [address], [address]. tel:[phone] Provider: Too Del Cid, [address] [place] [address], [address]. tel:[phone] OFFICE VISIT, EST TELEMEDICINE [facility], [address] [place] [address], [id number] , [place] tel:[phone] [facility] Back Pain (chief complaint) Pain in right kneePain in left ankle and joints of left footRadiculopa thy, lumbar regionMyalgia, other sitePostlamine ctomy syndrome, not elsewhere classifiedLong term (current) use of opiate analgesicPain in right hip 2 Mayra Rapp. [address] [place] [address] [address], [place], [place], [id number] , [place]. tel:[phone] anticoagulant prescriber: Aleksey Smith, [address], [address]. tel:[phone] OFFICE VISIT, EST TELEMEDICINE [facility], [address] [place] [address], [id number] , [place] tel:[phone] [facility] Back Pain (chief complaint) Pain in right kneePain in left ankle and joints of left footRadiculopa thy, lumbar regionMyalgia, other sitePostlamine ctomy syndrome, not elsewhere classifiedLong term (current) use of opiate analgesic 2 Nunez Dionte. [address] [place] [address] [address], [place], [place], [id number] , [place]. tel:[phone] anticoagulant prescriber: Aleksey Smith [address], [address]. tel:[phone] OFFICE VISIT, EST TELEMEDICINE [facility], [address] [place] [address], [id number] , [place] tel:[phone] [facility] Back Pain (chief complaint) Pain in right kneePain in left ankle and joints of left footRadiculopa thy, lumbar regionMyalgia, other sitePostlamine ctomy syndrome, not elsewhere classifiedLong term (current) use of opiate analgesic 2 Mayra Rapp. [address] [place] [address] [address], [place] Daniels, [id number] , [place]. tel:[phone] Referring Provider: Too Del Cid, [address] [place] [address], [address]. tel:[phone] OFFICE/OUTPAT IENT VISIT, [facility], [address] [place] [address], [id number] , [place] tel:[phone] [facility] Back Pain (chief complaint) Pain in right kneePain in right ankle and joints of right footPain in left ankle and joints of left footRadiculopa thy, lumbar regionMyalgia, other sitePostlamine ctomy syndrome, not elsewhere classifiedLong term (current) use of opiate analgesic 2 Mayra Rapp. [address] [place] [address] [address], [place], [id number] , [place]. [phone] Referring Provider: Too Del Cid, [address] [place] [address], [address]. tel:[phone] [facility], [address] [place] [address], [id number] , [place] tel:[phone] [facility] No Information 2 Will Too. [address] [place] [address], [id number] , [place]. [phone] OFFICE/OUTPAT IENT VISIT, [facility], [address] [place] [address], [id number] , [place] tel:[phone] [facility] Back Pain (chief complaint) Pain in right shoulderPain in right kneePain in right ankle and joints of right footPain in left ankle and joints of left footRadiculopa thy, lumbar regionMyalgia, other sitePostlamine ctomy syndrome, not elsewhere classifiedLong term (current) use of opiate analgesic 2 Mayra Rapp. [address] [place] [address] [address], [place], [id number] , [place]. [phone] Referring Provider: Too Del Cid, [address] [place] [address], [address]. tel:[phone] OFFICE/OUTPAT IENT VISIT, [facility], [address] [place] [address], [id number] , [place] tel:[phone] [facility] Back Pain (chief complaint) Chronic migraine without aura, intractable, without status migrainosusPai n in right shoulderPain in right kneePain in right ankle and joints of right footPain in left ankle and joints of left footRadiculopa thy, lumbar regionMyalgia, other sitePostlamine ctomy syndrome, not elsewhere classifiedLong term (current) use of opiate analgesicSpond ylosis without myelopathy or radiculopathy, lumbar region 2 Mayra Rapp. [address] [place] [address] [address], [place], [id number] , [place]. tel:[phone] Referring Provider: Too Del Cid, [address] [place] [address], [address]. tel:[phone] OFFICE VISIT, [facility], [address] [place] [address], [id number] , [place] [phone] [facility] Back Pain (chief complaint) Chronic migraine without aura, intractable, without status migrainosusPai n in right shoulderPain in right kneeRadiculopa thy, lumbar regionMyalgia, other sitePostlamine ctomy syndrome, not elsewhere classifiedLong term (current) use of opiate analgesicPain in left ankle and joints of left footPain in right ankle and joints of right foot 2 Mayra Rapp. [address] [place] [address] [address], [place], [id number] , [place]. tel:[phone] OFFICE/OUTPAT IENT VISIT, [facility], [address] [place] [address], [id number] , [place] [phone] [facility] Back Pain (chief complaint) Myalgia, other sitePain in right shoulderPain in right kneeRadiculopa thy, lumbar regionPostlami nectomy syndrome, not elsewhere classifiedLong term (current) use of opiate analgesicChron ic migraine without aura, intractable, without status migrainosus Aug- 2 Mayra Rapp. [address] [place] [address] [address], [place], [place], [id number] , [place]. tel:[phone] Referring Provider: Too Del Cid, [address] [place] [address], [address]. tel:[phone] [facility], [address] [place] [address], [id number] , [place] tel:[phone] [facility] [place] No Information Aug- 2 Will Too. [address] [place] [address], [id number] , [place]. tel:[phone] [facility], [address] [place] [address], [id number] , [place] tel:[phone] [facility] No Information Jul- 2 Mayra Rapp. [address] [place] [address] [address], [place], [place], [id number] , [place]. tel:[phone] Referring Provider: Too Del Cid, [address] [place] [address], [address]. tel:[phone] OFFICE/OUTPAT IENT VISIT, EST [facility], [address] [place] [address], [id number] , [place] tel:[phone] [facility] Back Pain (chief complaint) Radiculopathy, lumbar regionMyalgia, other sitePostlamine ctomy syndrome, not elsewhere classifiedLong term (current) use of opiate analgesicEncou nter for therapeutic drug level monitoringEnco unter for screening for other disorderPain in right shoulderPain in right knee Jul- 2 Mayra Rapp. [address] [place] [address] [address], [place], [place], [id number] , [place]. tel: [phone] Referring Provider: Caleb Ontiveros, [facility] [address] [facility], [place], [address]. tel:[phone] OFFICE VISIT, [facility], [address] [place] [address], [id number] , [place] tel: [phone] [facility] Back Pain (chief complaint) Postlaminectom y syndrome, not elsewhere classifiedRadi culopathy, lumbar regionMyalgia, other siteLong term (current) use of opiate analgesic - 2 Mayra Rapp. [facility] [address], [place], [place], [id number] , [place]. tel:[phone] Referring Provider: Too Del Cid, [address] [place] [address], [address]. tel:[phone] OFFICE/OUTPAT IENT VISIT, [facility], [address] [place] [address], [id number] , [place] tel:[phone] [facility] Back Pain (chief complaint) Myalgia, other sitePostlamine ctomy syndrome, not elsewhere classifiedRadi culopathy, lumbar regionLong term (current) use of opiate analgesic 1 Mayra Rapp. [address] [place] [address] [address], [place], [place], [id number] , [place]. tel:[phone] Referring Provider: Too Del Cid, [address] [place] [address], [address]. tel:[phone] OFFICE VISIT, [facility], [address] [place] [address], [id number] , [place] tel:[phone] [facility] low back pain (chief complaint) Radiculopathy, lumbar regionMyalgia, other siteLong term (current) use of opiate analgesicPostl aminectomy syndrome, not elsewhere classified Nov- 1 Mayra Rapp. [address] [facility] [address], [place], [place], [id number] , [place]. tel:[phone] Referring Provider: Too Del Cid, [address] [place] [address], [address]. tel:[phone] [facility], [address] [place] [address], [id number] , [place] tel:[phone] [facility] Postlaminectom y syndrome, not elsewhere classified 1 Mayra Rapp. [address] [place] [address] [address], [place], [place], [id number] , [place]. tel:[phone] Referring Provider: Too Del Cid, [address] [place] [address], [address]. tel:[phone] OFFICE/OUTPAT IENT VISIT, EST [facility], [address] [place] [address], [id number] , [place] tel:[phone] [facility] Widespread pain (chief complaint) Postlaminectom y syndrome, not elsewhere classifiedRadi culopathy, lumbar regionMyalgia, other siteLong term (current) use of opiate analgesic 1 Mayra Rapp. [address] [place] [address] [address], [place], [place], [id number] , [place]. tel:[phone] Referring Provider: Too Del Cid, [address] [place] [address], [address]. tel:[phone] [facility], [address] [place] [address], [id number] , [place] tel:[phone] [facility] No Information 1 Mayra Rapp. [address] [place] [address] [address], [place], [place], [id number] , [place]. tel:[phone] Referring Provider: Too Del Cid, [address] [place] [address], [address]. tel:[phone] OFFICE/OUTPAT IENT VISIT, [facility], [address] [place] [address], [id number] , [place] tel:[phone] [facility] Widespread pain (chief complaint) Postlaminectom y syndrome, not elsewhere classifiedRadi culopathy, lumbar regionMyalgia, other siteLong term (current) use of opiate analgesic 1 Mayra Rapp. [address] [place] [address] [address], [place], [place], [id number] , [place]. [phone] Referring Provider: Too Del Cid, [address] [place] [address], [address]. tel:[phone] OFFICE/OUTPAT IENT VISIT, [facility], [address] [place] [address], [id number] , [place] [phone] [facility] Widespread pain (chief complaint) Postlaminectom y syndrome, not elsewhere classifiedRadi culopathy, lumbar regionMyalgia, other siteLong term (current) use of opiate analgesic 1 Mayra Rapp. [address] [place] [address] [address], [place], [place], [id number] , [place]. [phone] Referring Provider: oTo Del Cid, [address] [place] [address], [address]. tel:[phone] [place] [address] Pain Clinic, [address] [place] [address], [id number] , [place] [phone] [facility] Postlaminectom y syndrome, not elsewhere classified 1 Mayra Rapp. [address] [place] [address] [address], [place], [place], [id number] , [place]. tel:[phone] Referring Provider: Too Del Cid, [address] [place] [address], [address]. tel:[phone] OFFICE/OUTPAT IENT VISIT, [facility], [address] [place] [address], [id number] , [place] tel:[phone] [facility] Widespread pain (chief complaint) Radiculopathy, lumbar regionMyalgia, other siteLong term (current) use of opiate analgesicPostl aminectomy syndrome, not elsewhere classified 1 Mayra Rapp. [address] [place] [address] [address], [place], [id number] , [place]. tel:[phone] Referring Provider: Too Del Cid, [address] [place] [address], [address]. tel:[phone] [facility], [address] [place] [address], [id number] , [place] tel:[phone] [facility] Postlaminectom y syndrome, not elsewhere classified Apr-0 1 Nunez Dionte. [address] [place] [address] [address], [place], [place], [id number] , [place]. tel:[phone] Referring Provider: Too Del Cid, [address] [place] [address], [address]. tel:[phone] OFFICE/OUTPAT IENT VISIT, [facility], [address] [place] [address], [id number] , [place] tel:[phone] [facility] Widespread pain (chief complaint) Postlaminectom y syndrome, not elsewhere classifiedRadi culopathy, lumbar regionMyalgia, other siteLong term (current) use of opiate analgesicEncou nter for screening for other disorder Apr-0 1 Mayra Rapp. [address] [place] [address] [address], [place], [place], [id number] , [place]. tel:[phone] Referring Provider: Too Del Cid, [address] [place] [address], [address]. tel:[phone] OFFICE/OUTPAT IENT VISIT, [facility], [address] [place] [address], [id number] , [place] tel:[phone] [facility] Widespread pain (chief complaint) Postlaminectom y syndrome, not elsewhere classifiedRadi culopathy, lumbar regionMyalgia, other siteLong term (current) use of opiate analgesic Mar-0 1 Mayra Rapp. [address] [place] [address] [address], [place], [place], [id number] , [place]. tel:[phone] Referring Provider: Too Del Cid, [address] [place] [address], [address]. tel:[phone] [facility], [address] [place] [address], [id number] , [place] tel: [phone] [facility] Postlaminectom y syndrome, not elsewhere classified 1 Mayra Rapp. [address] [place] [address] [address], [place], [place], [id number] , [place]. tel:[phone] Referring Provider: Too Del Cid, [address] [place] [address], [address]. tel:[phone] [place] [address] [facility] Clinic, [address] [place] [address], [id number] , [place] tel:[phone] [facility] No Information 1 Mayra Rapp. [address] [place] [address], [place], [place], [id number] , [place]. tel:[phone] OFFICE/OUTPAT IENT VISIT, EST [facility], [address] [place] [address], [id number] , [place] tel: [phone] [facility] Widespread pain (chief complaint) Postlaminectom y syndrome, not elsewhere classifiedRadi culopathy, lumbar regionMyalgia, other siteLong term (current) use of opiate analgesicPain in right kneeChronic pain syndrome 1 Mayra Rapp. [address] [place] [address] [address], [place], [place], [id number] , [place]. tel: [phone] Referring Provider: Too Del Cid, [address] [place] [address], [address]. tel:[phone] OFFICE VISIT, EST TELEMEDICINE [facility], [address] [place] [address], [id number] , [place] tel: [phone] [facility] [place] Widespread pain (chief complaint) Postlaminectom y syndrome, not elsewhere classifiedRadi culopathy, lumbar regionMyalgia, other siteLong term (current) use of opiate analgesicPain in right kneeChronic pain syndrome 0 Mayra Rapp. [address] [place] [address] [address], [place], [place], [id number] , [place]. tel:[phone] Referring Provider: Too Del Cid, [address] [place] [address], [address]. tel:[phone] [facility], [address] [place] [address], [id number] , [place] tel:[phone] [facility] Postlaminectom y syndrome, not elsewhere classified 0 Mayra Rapp. [address] [place] [address] [address], [place], [place], [id number] , [place]. tel:[phone] Referring Provider: Too Del Cid, [address] [place] [address], [address]. tel:[phone] [facility], [address] [place] [address], [id number] , [place] tel:[phone] [facility] Postlaminectom y syndrome, not elsewhere classified 0 Emiliano Martinez. [address] [place] [address], [id number] , [place]. tel:[phone] Referring Provider: Too Del Cid, [address] [place] [address], [address]. tel:[phone] OFFICE VISIT, EST TELEMEDICINE [facility], [address] [place] [address], [id number] , [place] tel:[phone] [facility] Widespread pain (chief complaint) Radiculopathy, lumbar regionMyalgia, other siteLong term (current) use of opiate analgesicPain in right kneeChronic pain syndromePostla minectomy syndrome, not elsewhere classified 0 Mayra Rapp. [address] [place] [address] [address], [place], [place], [id number] , [place]. tel:[phone] Referring Provider: Too Del Cid, [address] [place] [address], [address]. tel:[phone] OFFICE/OUTPAT IENT VISIT, EST [facility], [address] [place] [address], [id number] , [place] tel:[phone] [facility] Widespread pain (chief complaint) Myalgia, other siteRadiculopa thy, lumbar regionPostlami nectomy syndrome, not elsewhere classifiedLong term (current) use of opiate analgesicPain in right kneeChronic pain syndrome 0 Nunez Dionte. [address] [facility] [address] [facility] [address], [place], [place], [id number] , [place]. tel:[phone] Referring Provider: Too Del Cid, [address] [place] [address], [address]. tel:[phone] [facility], [address] [place] [address], [id number] , [place] tel:[phone] [facility] Postlaminectom y syndrome, not elsewhere classifiedMyal isabel, other site 0 Nyjoe Hays. [address] [facility] [address], [place], [place], [id number] , [place]. tel:[phone] Referring Provider: Too Del Cid, [address] [place] [address], [address]. tel:[phone] [facility], [address] [place] [address], [id number] , [place] tel:[phone] [facility] Radiculopathy, lumbar regionPostlami nectomy syndrome, not elsewhere classified 0 Mayra Rapp. [address] [facility] [address], [place], [place], [id number] , [place]. tel:[phone] Referring Provider: Too Del Cid, [address] [place] [address], [address]. tel:[phone] [facility], [address] [place] [address], [id number] , [place] tel:[phone] [facility] No Information Oct-0 6-202 0 Will Too. [address] [place] [address], [id number] , [place]. [phone] Referring Provider: Too Del Cid, [address] [place] [address], [address]. tel:[phone] OFFICE VISIT, EST TELEMEDICINE [facility], [address] [place] [address], [id number] , [place] tel:[phone] [facility] Widespread pain (chief complaint) Radiculopathy, lumbar regionLong term (current) use of opiate analgesicMyalg ia, other sitePain in right kneeChronic pain syndromePostla minectomy syndrome, not elsewhere classified Sep-2 5-202 0 Mayra Rapp. [facility] [facility] [address], [place], [place], [id number] , [place]. [phone] Referring Provider: Too Del Cid, [address] [place] [address], [address]. tel:[phone] [facility], [address] [place] [address], [id number] , [place] [phone] [facility] Radiculopathy, lumbar region Sep-0 -202 0 Cummings Michelle. [address] [place] [address], [id number] , [place]. [phone] Referring Provider: Too Del Cid, [address] [place] [address], [address]. tel:[phone] [facility], [address] [place] [address], [id number] , [place] tel:[phone] [facility] No Information Sep-0 3-202 0 Cummings Michelle. [address] [place] [address], [id number] , [place]. [phone] Referring Provider: Too Del Cid, [address] [place] [address], [id number]. tel:[phone] OFFICE VISIT, EST TELEMEDICINE [facility], [address] [place] [address], [id number] , [place] tel: [phone] [facility] Pax Widespread pain (chief complaint) Postlaminectom y syndrome, not elsewhere classifiedLong term (current) use of opiate analgesicRadic ulopathy, lumbar regionMyalgia, other sitePain in right kneeChronic pain syndrome 0 Nunez Dionte. [address] [place] [address] [address], [place], [id number] , [place]. tel:[phone] Referring Provider: Too Del Cid, [address] [place] [address], [address]. tel:[phone] [facility], [address] [place] [address], [id number] , [place] tel: [phone] [facility] [place] Postlaminectom y syndrome, not elsewhere classified 0 Nunez Dionte. [address] [place] [address] [address], [facility], [place], [id number] , [place]. tel:[phone] OFFICE VISIT, EST TELEMEDICINE [facility], [address] [place] [address], [id number] , [place] tel: [phone] [facility] Pax Widespread pain (chief complaint) Pain in right kneeChronic pain syndromePostla minectomy syndrome, not elsewhere classifiedLong term (current) use of opiate analgesicRadic ulopathy, lumbar regionMyalgia, other site 0 Nunez Dionte. [address] [place] [address] 100, [facility], [place], [id number] , [place]. tel:[phone] Referring Provider: Too Del Cid, [address] [place] [address], [address]. tel:[phone] OFFICE VISIT, EST TELEMEDICINE [facility], [address] [place] [address], [id number] , [place] tel:[phone] Telehealth Widespread pain (chief complaint) Pain in right kneeChronic pain syndromePostla minectomy syndrome, not elsewhere classifiedLong term (current) use of opiate analgesicRadic ulopathy, lumbar regionMyalgia, other site 0 Mayra Rapp. [address] [place] [address] [address], [place], [place], [id number] , [place]. tel:[phone] Referring Provider: Too Del Cid, [address] [place] [address], [address]. tel:[phone] OFFICE VISIT, EST TELEMEDICINE [facility], [address] [place] [address], [id number] , [place] tel:[phone] Telehealth Widespread pain (chief complaint) Postlaminectom y syndrome, not elsewhere classifiedPain in right kneeChronic pain syndromeLong term (current) use of opiate analgesicRadic ulopathy, lumbar regionMyalgia, other site 0 Mayra Rapp. [address] [place] [address] [address], [place], [place], [id number] , [place]. tel:[phone] Referring Provider: Too Del Cid, [address] [place] [address], [address]. tel:[phone] Psych Dx Eval [facility], [address] [place] [address], [id number] , [place] tel:[phone] Telehealth Pain disorder with related psychological factorsPost-tr aumatic stress disorder, unspecified 0 Tess Aguilar. [address] [place] [address], [id number] , [place]. [phone] Referring Provider: Too Del Cid, [address] [place] [address], [address]. tel:[phone] OFFICE VISIT, EST TELEMEDICINE [facility], [address] [place] [address], [id number] , [place] tel:[phone] Telehealth Widespread pain (chief complaint) Chronic pain syndromePain in right kneePostlamine ctomy syndrome, not elsewhere classifiedLong term (current) use of opiate analgesicMyalg ia, other siteRadiculopa thy, lumbar region 0 Mayra Rapp. [address] [place] [address] [address], [place], [place], [id number] , [place]. tel:[phone] Referring Provider: Too Del Cid, [address] [place] [address], [address]. tel:[phone] OFFICE VISIT, EST [facility], [address] [place] [address], [id number] , [place] tel: [phone] Telehealth Widespread pain (chief complaint) Chronic pain syndromePain in right kneePostlamine ctomy syndrome, not elsewhere classifiedLong term (current) use of opiate analgesic Amos-0 2- 0 Nunez Dionte. [address] [place] [address] [address], [place], [place], [id number] , [place]. tel:[phone] Referring Provider: Too Del Cid, [address] [place] [address], [address]. tel:[phone] OFFICE VISIT, [facility], [address] [place] [address], [id number] , [place] tel: [phone] Telehealth Widespread pain (chief complaint) Postlaminectom y syndrome, not elsewhere classifiedPain in right kneeChronic pain syndromeLong term (current) use of opiate analgesic September- 0 Nunez Dionte. [address] [place] [address] [address], [place], [place], [id number] , [place]. tel: [phone] Referring Provider: Too Del Cid, [address] [place] [address], [address]. tel:[phone] OFFICE VISIT, [facility], [address] [place] [address], [id number] , [place] tel: [phone] Telehealth Widespread pain (chief complaint) Postlaminectom y syndrome, not elsewhere classifiedPain in right kneeChronic pain syndromeLong term (current) use of opiate analgesicPain in left hip September-0 0 Nunez Dionte. [address] [place] [address] [address], [place], [place], [id number] , [place]. tel: [phone] OFFICE VISIT, EST [facility], [address] [place] [address], [id number] , [place] tel:[phone] Telehealth Widespread pain (chief complaint) Postlaminectom y syndrome, not elsewhere classifiedPain in right kneeChronic pain syndromeLong term (current) use of opiate analgesic Apr-2 0-202 0 Mayra Rapp. [address] [facility] [address], [place], [place], [id number] , [place]. tel:[phone] Referring Provider: Too Del Cid, [address] [place] [address], [address]. tel:[phone] OFFICE VISIT, EST TELEMEDICINE [facility], [address] [place] [address], [id number] , [place] tel:[phone] Telehealth Widespread pain (chief complaint) Postlaminectom y syndrome, not elsewhere classifiedPain in right kneeChronic pain syndromeLong term (current) use of opiate analgesic Apr-0 2-202 0 Mayra Rapp. [address] [place] [address] [address], [place], [place], [id number] , [place]. tel:[phone] Referring Provider: Too Del Cid, [address] [place] [address], [address]. 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 [address] [place] [address] [address], [place], [place], [id number] , [place]. tel:[phone] Referring Provider: Too Del Cid, [address] [place] [address], [address]. tel:[phone] [facility], [address] [place] [address], [id number] , [place] [phone] [facility] Pax No Information Jul- 0- 0 Mayra Rapp. [address] [place] [address] [address], [facility], [place], [id number] , [place]. tel:[phone] OFFICE/OUTPAT IENT VISIT, [facility], [address] [place], [place], [id number] , [place] tel:[phone] [facility] Widespread pain (chief complaint) Chronic pain syndromePostla minectomy syndrome, not elsewhere classifiedPain in right kneeLong term (current) use of opiate analgesic Jul-0 - 0 Mayra Rapp. [address] [facility] [address], [place], [place], [id number] , [place]. tel:[phone] Referring Provider: Too Del Cid, [address] [place], [address]. tel:[phone] OFFICE/OUTPAT IENT VISIT, [facility], [address] [place], [place], [id number] , [place] tel:[phone] [facility] Widespread pain (chief complaint) Chronic pain syndromePostla minectomy syndrome, not elsewhere classifiedMyal isabel, other sitePain in right kneeEncounter for therapeutic drug level monitoringLong term (current) use of opiate analgesic 2 0 Nunez Dionte. [address] [facility] [address], [place], [place], [id number] , [place]. tel:[phone] Referring Provider: Caleb Ontiveros [facility] [address] [facility], [place], [address]. tel:[phone] Family History Family Member Type Diagnosis Age At Onset No Information Payers Payer name Insurance type Covered constitution party ID Authoriza tiada(s) [facility] Replacement [id number] Social History Type Description Quantity Date Captured [...] C scre ening. Due on due Goal SENIOR BILLING CONSULTANT Scanned. Due on due Goal Creatinine. Due [...] vaccine ( 1st). Due on due Goal MEDIA INTERN Paperwork. Due on due Goal UDT. Due [...] Goal PHQ-9. Due on du e Goal SENIOR BILLING CONSULTANT Scanned. Due on due Goal MEDIA INTERN Paperwork. Due on due Goal Creatinine. Due [...] ue Goal Creatinine. Due on due Goal MEDIA INTERN Paperwork. Due on due Goal OARS. Due on due Goal ALT (SGPT). Due on due Goal Hepatitis C scre ening. Due on due Goal SENIOR BILLING CONSULTANT Scanned. Due on due Goal Order Annual [...] e Goal OARS. Due on due Goal MEDIA INTERN Paperwork. Due on due Goal Height. Due [...] Goal AST (SGOT). Due on due Goal SENIOR BILLING CONSULTANT Scanned. Due on due Goal SENIOR BILLING CONSULTANT Scanned. Due on due Goal Zoster vaccine ( 1st). Due on due Goal ALT (SGPT). Due on due Goal MEDIA INTERN Paperwork. Due on due Goal Creatinine. Due [...] ue Goal CT-Colonography. Due on due Goal SENIOR BILLING CONSULTANT Scanned. Due on due Goal Creatinine. Due [...] Goal PHQ-9. Due on du e Goal MEDIA INTERN Paperwork. Due on due Goal Height. Due on d ue Goal Weight. Due on d ue Goal Tobacco Use. Due on due Goal Unhealthy drug u se screening. Due on due Goal ALT (SGPT). Due on due Goal CT-Colonography. Due on due Goal HPV. Due on due Goal Creatinine. Due on due Goal CT-Colonography. Due on due Goal MEDIA INTERN Paperwork. Due on due Goal ALT (SGPT). [...] Goal Weight. Due on d ue Goal SENIOR BILLING CONSULTANT Scanned. Due on due Goal FIT-DNA. Due [...] Order Annual PT. Due on due Goal SENIOR BILLING CONSULTANT Scanned. Due on due Goal ALT (SGPT). Due on due Goal Height. Due on d ue Goal OARS. Due on due Goal MEDIA INTERN Paperwork. Due on due Goal Lipid panel. [...] u se screening. Due on due Goal SENIOR BILLING CONSULTANT Scanned. Due on due Goal Tobacco Use. [...] Order Annual PT. Due on due Goal MEDIA INTERN Paperwork. Due on due Goal HPV. Due on due Goal Zoster vaccine ( 1st). Due on due Goal OARS. Due on due Goal AST (SGOT). Due on due Goal Weight. Due on d ue Goal Height. Due on d ue Goal Hepatitis C scre ening. Due on due Goal Update Social Hi story. Due on due Goal MEDIA INTERN Paperwork. Due on due Goal OARS. Due on due Goal ALT (SGPT). Due on due Goal SENIOR BILLING CONSULTANT Scanned. Due on due Goal UDT. Due [...] Order Annual PT. Due on due Goal MEDIA INTERN Paperwork. Due on due Goal Creatinine. Due on due Goal SENIOR BILLING CONSULTANT Scanned. Due on due Goal OARS. Due [...] C scre ening. Due on due Goal SENIOR BILLING CONSULTANT Scanned. Due on due Goal Creatinine. Due on due Goal OARS. Due on due Goal Order Annual PT. Due on due Goal MEDIA INTERN Paperwork. Due on due Goal AST (SGOT). [...] due Goal HPV. Due on due Goal SENIOR BILLING CONSULTANT Scanned. Due on due Goal AST (SGOT). Due on due Goal Lipid panel. Due on due Goal PHQ-9. Due on du e Goal Creatinine. Due on due Goal FIT. Due on due Goal Medication Recon ciliation. Due on due Goal Weight. Due on d ue Goal MEDIA INTERN Paperwork. Due on due Goal Review Allergy [...] Goal Weight. Due on d ue Goal SENIOR BILLING CONSULTANT Scanned. Due on due Goal ALT (SGPT). [...] due Goal CT-Colonography. Due on due Goal MEDIA INTERN Paperwork. Due on due Goal OARS. Due on due Goal UDT. Due on due Goal Tobacco Use. Due on due Goal HPV. Due on due Goal MEDIA INTERN Paperwork. Due on due Goal FIT-DNA. Due on due Goal Lipid panel. Due on due Goal Weight. Due on d ue Goal UDT. Due on due Goal SENIOR BILLING CONSULTANT Scanned. Due on due Goal OARS. Due [...] Order Annual PT. Due on due Goal SENIOR BILLING CONSULTANT Scanned. Due on due Goal Creatinine. Due [...] vaccine ( 1st). Due on due Goal MEDIA INTERN Paperwork. Due on due Goal Order Annual PT. Due on due Goal FIT. Due on due Goal SENIOR BILLING CONSULTANT Scanned. Due on due Goal PHQ-9. Due [...] due Goal OARS. Due on due Goal MEDIA INTERN Paperwork. Due on due Goal ALT (SGPT). [...] due Goal CT-Colonography. Due on due Goal SENIOR BILLING CONSULTANT Scanned. Due on due Goal FIT-DNA. Due on due Goal Tobacco Use. Due on due Goal Creatinine. Due on due Goal Review Allergy L ist. Due on due Goal Lipid panel. Due on due Goal MEDIA INTERN Paperwork. Due on due Goal UDT. Due on due Goal PHQ-9. Due on du e Goal Update Social Hi story. Due on due Goal Hepatitis C scre ening. Due on due Goal SENIOR BILLING CONSULTANT Scanned. Due on due Goal Medication Recon ciliation. Due on due Goal OARS. Due on due Goal Tobacco Use. Due on due Goal Creatinine. Due on due Goal MEDIA INTERN Paperwork. Due on due Goal ALT (SGPT). [...] Goal ALT (SGPT). Due on due Goal MEDIA INTERN Paperwork. Due on due Goal PHQ-9. Due on du e Goal Creatinine. Due on due Goal UDT. Due on due Goal Medication Recon ciliation. Due on due Goal SENIOR BILLING CONSULTANT Scanned. Due on due Goal Update Social Hi story. Due on due Goal Height. Due on d ue Goal Weight. Due on d ue Goal Review Allergy L ist. Due on due Goal Tobacco Use. Due on due Goal OARS. Due on due Goal Order Annual PT. Due on due Goal MEDIA INTERN Paperwork. Due on due Goal Tobacco Use. Due on due Goal PHQ-9. Due on du e Goal ALT (SGPT). Due on due Goal Update Social Hi story. Due on due Goal OARS. Due on due Goal Order Annual PT. Due on due Goal Creatinine. Due on due Goal AST (SGOT). Due on due Goal SENIOR BILLING CONSULTANT Scanned. Due on due Goal Review Allergy L ist. Due on due Goal Height. Due on d ue Goal UDT. Due on due Goal Weight. Due on d ue Goal Medication Recon ciliation. Due on due Goal OARS. Due on due Goal Creatinine. Due on due Goal SENIOR BILLING CONSULTANT Scanned. Due on due Goal Order Annual PT. Due on due Goal ALT (SGPT). Due on due Goal Update Social Hi story. Due on due Goal Review Allergy L ist. Due on due Goal AST (SGOT). Due on due Goal UDT. Due on due Goal Weight. Due on d ue Goal Medication Recon ciliation. Due on due Goal MEDIA INTERN Paperwork. Due on due Goal PHQ-9. Due [...] Goal Weight. Due on d ue Goal SENIOR BILLING CONSULTANT Scanned. Due on due Goal PHQ-9. Due on du e Goal MEDIA INTERN Paperwork. Due on due Goal Medication Recon ciliation. Due on due Goal Tobacco Use. Due on due Goal UDT. Due on due Goal Update Social Hi story. Due on due Goal Height. Due on d ue Goal SENIOR BILLING CONSULTANT Scanned. Due on due Goal Order Annual PT. Due on due Goal MEDIA INTERN Paperwork. Due on due Goal UDT. Due [...] due Goal OARS. Due on due Goal MEDIA INTERN Paperwork. Due on due Goal SENIOR BILLING CONSULTANT Scanned. Due on due Goal Creatinine. Due [...] Goal Height. Due on d ue Goal SENIOR BILLING CONSULTANT Scanned. Due on due Goal OARS. Due on due Goal Creatinine. Due on due Goal Weight. Due on d ue Goal UDT. Due on due Goal AST (SGOT). Due on due Goal Order Annual PT. Due on due Goal PHQ-9. Due on du e Goal MEDIA INTERN Paperwork. Due on due Goal Review Allergy L ist. Due on due Goal Medication Recon ciliation. Due on due Goal AST (SGOT). Due on due Goal Height. Due on d ue Goal PHQ-9. Due on du e Goal Order Annual PT. Due on due Goal Medication Recon ciliation. Due on due Goal Tobacco Use. Due on due Goal MEDIA INTERN Paperwork. Due on due Goal Review Allergy L ist. Due on due Goal Creatinine. Due on due Goal ALT (SGPT). Due on due Goal Update Social Hi story. Due on due Goal UDT. Due on due Goal OARS. Due on due Goal Weight. Due on d ue Goal SENIOR BILLING CONSULTANT Scanned. Due on due Goal UDT. Due on due Goal OARS. Due on due Goal Creatinine. Due on due Goal SENIOR BILLING CONSULTANT Scanned. Due on due Goal Review Allergy L ist. Due on due Goal Order Annual PT. Due on due Goal ALT (SGPT). Due on due Goal Tobacco Use. Due on due Goal PHQ-9. Due on du e Goal Update Social [place] story. Due on due Goal MEDIA INTERN Paperwork. Due on due Goal AST (SGOT). [...] Radiculopathy, lumbar region) ordered Referral Referred To: [facility] [address] [place], [address] [phone] Ordered: Referrals: Family Medicine. [facility] ordered Referral Ordered: X-RAY EXAM OF HIPS LT hip ordered Referral Ordered: Azael Regan -[facility] : Family Medicine (related to Postlaminectomy syndrome, not elsewhere classified) ordered Referral Referred To: Azael Regan [facility]
[address] [place], [address] [phone] Ordered: Referrals: [facility]opathic Physicians : [...] assessment:Difficulty reaching, lifting, carrying, pushing, pulling, and ore tester is hopeful that the SCS device will [...] discomfort. Patient was meeting with Jose from [facility] [employer] [facility] today and expressed her frustration with charging. [...] TKA on 07/09/[address] Camara from [facility]. SENIOR BILLING CONSULTANT was reviewed and shows pt was rx'ed 2mg Dilaudid max 7/day for post op pain. She was rx'ed #49tabs on 08/23/21, #49tabs on 08/19/21 and #49 tabs on 08/08/21. Her chronic dose at [facility] is #5tabs a day, patient [...] rescheduled for 07/09/[address] Camara from [facility]. Surgeon will manage post-op pain. Lower [...] for [address] Lino or from [facility]. It was canceled due to no hospital beds available with [facility].Expresses her ongoing frustration regarding her lumbar [...] scheduled R TKA with Dr. Camara through [facility]. Discussed post-op pain management. Also continues [...] order. She looks forward to reprogramming with [facility] [employer] [facility] today as she has had questions about [...] Pain has been worse. She went to [facility] two weeks ago with atrial fibrillation. She completed work-up and was put on warfarin. She met with her orthopedist at [facility] regarding her R knee pain. Orthopedist recommended [...] and incontinence (urinary). Widespread pain (comments) Loni hinse is here for virtual follow-up and medication refills. She presents with wide spread pain most bothersome in her low back. She reports a new pain in her L hip which radiates down the back and front of her thigh and groin.Brandee reports her pain has been worse this month due to visiting her daughter in [place]. She realized she can not walk long distances with her walker. Had a injection scheduled with [facility] but [employer] service could not provide her the ride from [place]. She is excited about the recently approved [...] trial.She had a recent lumbar MRI with [facility] and per patient the imaging showed herniation and disc slippage at multiple levels. She said [facility] recommend a injection. With previous injections, she explains having a reaction to the procedure. She scheduled the injection on 12/[address] estrella at [facility].Reports current medication regimen provides at least [...] upcoming appt. with a back surgeon through [facility] next week to be evaluated. Reports [...] over.Notes that she followed up with her spectral scientist yesterday. States that she has arrythmia although [...] [employer] SCS trial. 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 She still has routine foot injections with Dr. Caleb Ontiveros. She inquires if she can temporarily increase her medications until she is able to trial the spinal cord stimulator.No additional questions or concerns. Patient is not accompanied today and has no other questions or concerns. Widespread pain (comments) Branede is here today for a followup and [...] medication. Medications are managed by [facility] facility. Denies side effects.Patient is not accompanied today [...] She is currently enrolled in PT at [facility] in [facility]. She also regularly attends the chiropractor. [...] and other recommended therapies and would like [facility] to assume management of pain care. Functional Status Date Functional Assessmen t No Information Instructions Date Instruction Additional Infor mation No Information Assessments Type Assessment Date assessment Pain in right knee impression S/p right TKA on 12/[address] Camara from [facility]. Has been participating in PT with good benefit. Pain has been worse since [facility] assessment Pain in left ankle and joints of left foot impression Worsening pain in th e left ankle and is considering an ankle fusion assessment Radiculopathy, lumbar region Jul impression Lower back pain with radiation into her BLE, continues to worsen since [facility] assessment Myalgia, other site impression TPIs in the past wit hout benefit. PO muscle relaxers provide moderate relief assessment Postlaminectomy syndrome, not el sewhere classified impression Hx of L4-S1 fusion. She has an SCS implant but may be interested in an explant assessment [facility] (current) use of opiat e analgesic impression The medication relie ves at least 60% of the pain, does not cause significant side effects, increases the patient's daily activity level. Medication managed by facility.Most of today's visit was spent discussing the patient's recent discharge from the clinic d/t her inappropriate behavior and language used toward staff. Patient expresses frustrations with termination. MEDIA INTERN terminated.Most recent UDT results reviewed and appropriate. Not appropriate to continue opioid therapy d/t issues with inappropriate behavior. Current MME 30 Mental Status Date Cognitive Assessment Orientation - [place] ed to time, place, person, situation. Patient Care Teams Name Effective Dates (start - stop) Status Members No Information
== END 2023-02-16 13:42 | disposition home or self-care (01) ==
PROVIDERS: PCP Internal Medicine; Visit Provider Internal Medicine
DX: I48.91 Unspecified atrial fibrillation (principal); R53.83 Other fatigue
CPT/HCPCS: 85610

== ENCOUNTER 2023-03-03 10:25 | Outpatient (CLI) | payer OTHER, SELFPAY ==
--- OUTSIDE RECORDS SUMMARY | 2023-03-03 10:29 | XMS_ITS | Continuity of Care Document ---
Author Name Unknown Organization [facility] Address [address] [place] [id number] Care Team Providers Care [employer] Name Role Phone [facility] Unavailable Unav ailable Procedures Procedure Date [...] Date Provider Providers Copied on Encounter [facility], [address] [place] [address], [id number], [facility] No Information [facility]. [address] [place], [place], [id number], [place]. tel:[phone] Referring Provider: Michelle Cummings, [address] [place], [address]. tel:[phone] [facility], [address] [place], [place], [id number], [facility] No Information [facility]. [address] [facility] [place], [place], [id number], [place]. tel:[phone] Referring Provider: Too Del Cid, [address] [place], [address]. tel:[phone] [facility], [address] [place], [place], [id number], [place] [facility] No Information [facility]. [address], [place], [id number], . tel:[phone] Referring Provider: Michelle Cummings, [address] [place], [address]. tel:[phone] Family History Family Member Type Diagnosis Age [...]
--- OUTSIDE RECORDS SUMMARY | 2023-03-03 10:29 | XMS_ITS | Continuity of Care Document ---
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 TELEMEDICINE 20 Foll-up eval q3mo opiod tx OFFICE/OUTPATIENT VISIT, EST Drug Urine Toxology With Chromatography SCS Trial Procedure Ordered INJ TRIGGER POINT, 1/2 MUSCL OFFICE/OUTPATIENT VISIT, NEW Advance Directives Directive Yes / No Effective Date File Name No Information Encounters Encounter Description Practice Location Reason(s) For Visit Diagnoses Date Provider Providers Copied on Encounter OFFICE VISIT, [facility], [address] [place], [place], [id number] , [place] tel:[phone] [facility] [place] Widespread pain (chief complaint) Pain in right kneePain in left ankle and joints of left footRadiculopa thy, lumbar regionMyalgia, other sitePostlamine ctomy syndrome, not elsewhere classifiedLong term (current) use of opiate analgesic 3 Mayra Rapp. [address] [facility] [address], [place], [place], [id number] , [place]. tel:[phone] anticoagulant prescriber: Aleksey Smith [address], [address]. tel:[phone] Provider: Too Del Cid, [address] [place], [address]. tel:[phone] OFFICE VISIT, [facility], [address], [place], [id number] , [place] tel:[phone] [facility] Widespread pain (chief complaint) Postlaminectom y syndrome, not elsewhere classifiedRadi culopathy, lumbar regionMyalgia, other sitePain in left ankle and joints of left footPain in right kneeLong term (current) use of opiate analgesic 3 Shay Morales. [address], [place], [id number] , [place]. tel:[phone] anticoagulant prescriber: Aleksey Smith [address] [place], [address]. tel:[phone] [facility], [address] [place] [address], [id number] , [place] tel:[phone] [facility] Rebecca pain (chief complaint) Postlaminectom y syndrome, not elsewhere classified 2 Indu Dalal. [address] [place], [place], [id number] , [place]. tel:[phone] Psych Dx Eval [facility], [address] [place] [address], [id number] , [place] tel:[phone] Telehealth Pain disorder with related psychological factorsPost-tr aumatic stress disorder, unspecified 2 Tess Cristiano Peg. [address] [place] [address], [id number] , [place]. tel:[phone] Referring Provider: Too Del Cid, [address] [place] [address], [address]. tel:[phone] Psych Dx Eval [facility], [address] [place] [address], [id number] , [place] tel:[phone] Telehealth Pain disorder with related psychological factorsAnxiety disorder 2 Tess Cristiano Peg. [address] [place] [address], [id number] , [place]. tel:[phone] OFFICE/OUTPAT IENT VISIT, [facility], [address] [place] [address], [id number] , [place] tel:[phone] [facility] [place] Widespread pain (chief complaint) Pain in right hipPain in right kneePain in left ankle and joints of left footRadiculopa thy, lumbar regionPostlami nectomy syndrome, not elsewhere classifiedLong term (current) use of opiate analgesicMyalg ia, other site 2 Heriberto Gage. [address] [place] [address], [id number] , [place]. tel:[phone] anticoagulant prescriber: Aleksey Smith, [address], [address]. tel:[phone] Provider: Too Del Cid, [address] [place] [address], [address]. tel:[phone] OFFICE VISIT, EST TELEMEDICINE [facility], [address] [place] [address], [id number] , [place] tel:[phone] [facility] Back Pain (chief complaint) Pain in right kneePain in left ankle and joints of left footRadiculopa thy, lumbar regionMyalgia, other sitePostlamine ctomy syndrome, not elsewhere classifiedLong term (current) use of opiate analgesicPain in right hip 2 Mayra Rapp. [address] [place] [address] [address], [place], [place], [id number] , [place]. tel:[phone] anticoagulant prescriber: Aleksey Smith, [address], [address]. tel:[phone] OFFICE VISIT, EST TELEMEDICINE [facility], [address] [place] [address], [id number] , [place] tel:[phone] [facility] Back Pain (chief complaint) Pain in right kneePain in left ankle and joints of left footRadiculopa thy, lumbar regionMyalgia, other sitePostlamine ctomy syndrome, not elsewhere classifiedLong term (current) use of opiate analgesic 2 Nunez Dionte. [address] [place] [address] [address], [place], [place], [id number] , [place]. tel:[phone] anticoagulant prescriber: Aleksey Smith [address], [address]. tel:[phone] OFFICE VISIT, EST TELEMEDICINE [facility], [address] [place] [address], [id number] , [place] tel:[phone] [facility] Back Pain (chief complaint) Pain in right kneePain in left ankle and joints of left footRadiculopa thy, lumbar regionMyalgia, other sitePostlamine ctomy syndrome, not elsewhere classifiedLong term (current) use of opiate analgesic 2 Mayra Rapp. [address] [place] [address] [address], [place] Daniels, [id number] , [place]. tel:[phone] Referring Provider: Too Del Cid, [address] [place] [address], [address]. tel:[phone] OFFICE/OUTPAT IENT VISIT, [facility], [address] [place] [address], [id number] , [place] tel:[phone] [facility] Back Pain (chief complaint) Pain in right kneePain in right ankle and joints of right footPain in left ankle and joints of left footRadiculopa thy, lumbar regionMyalgia, other sitePostlamine ctomy syndrome, not elsewhere classifiedLong term (current) use of opiate analgesic 2 Mayra Rapp. [address] [place] [address] [address], [place], [id number] , [place]. [phone] Referring Provider: Too Del Cid, [address] [place] [address], [address]. tel:[phone] [facility], [address] [place] [address], [id number] , [place] tel:[phone] [facility] No Information 2 Will Too. [address] [place] [address], [id number] , [place]. [phone] OFFICE/OUTPAT IENT VISIT, [facility], [address] [place] [address], [id number] , [place] tel:[phone] [facility] Back Pain (chief complaint) Pain in right shoulderPain in right kneePain in right ankle and joints of right footPain in left ankle and joints of left footRadiculopa thy, lumbar regionMyalgia, other sitePostlamine ctomy syndrome, not elsewhere classifiedLong term (current) use of opiate analgesic 2 Mayra Rapp. [address] [place] [address] [address], [place], [id number] , [place]. [phone] Referring Provider: Too Del Cid, [address] [place] [address], [address]. tel:[phone] OFFICE/OUTPAT IENT VISIT, [facility], [address] [place] [address], [id number] , [place] tel:[phone] [facility] Back Pain (chief complaint) Chronic migraine without aura, intractable, without status migrainosusPai n in right shoulderPain in right kneePain in right ankle and joints of right footPain in left ankle and joints of left footRadiculopa thy, lumbar regionMyalgia, other sitePostlamine ctomy syndrome, not elsewhere classifiedLong term (current) use of opiate analgesicSpond ylosis without myelopathy or radiculopathy, lumbar region 2 Mayra Rapp. [address] [place] [address] [address], [place], [id number] , [place]. tel:[phone] Referring Provider: Too Del Cid, [address] [place] [address], [address]. tel:[phone] OFFICE VISIT, [facility], [address] [place] [address], [id number] , [place] [phone] [facility] Back Pain (chief complaint) Chronic migraine without aura, intractable, without status migrainosusPai n in right shoulderPain in right kneeRadiculopa thy, lumbar regionMyalgia, other sitePostlamine ctomy syndrome, not elsewhere classifiedLong term (current) use of opiate analgesicPain in left ankle and joints of left footPain in right ankle and joints of right foot 2 Mayra Rapp. [address] [place] [address] [address], [place], [id number] , [place]. tel:[phone] OFFICE/OUTPAT IENT VISIT, [facility], [address] [place] [address], [id number] , [place] [phone] [facility] Back Pain (chief complaint) Myalgia, other sitePain in right shoulderPain in right kneeRadiculopa thy, lumbar regionPostlami nectomy syndrome, not elsewhere classifiedLong term (current) use of opiate analgesicChron ic migraine without aura, intractable, without status migrainosus Aug- 2 Mayra Rapp. [address] [place] [address] [address], [place], [place], [id number] , [place]. tel:[phone] Referring Provider: Too Dle Cid, [address] [place] [address], [address]. tel:[phone] [facility], [address] [place] [address], [id number] , [place] tel:[phone] [facility] [place] No Information Aug- 2 Will Too. [address] [place] [address], [id number] , [place]. tel:[phone] [facility], [address] [place] [address], [id number] , [place] tel:[phone] [facility] No Information Jul- 2 Mayra Rapp. [address] [place] [address] [address], [place], [place], [id number] , [place]. tel:[phone] Referring Provider: Too Del Cid, [address] [place] [address], [address]. tel:[phone] OFFICE/OUTPAT IENT VISIT, EST [facility], [address] [place] [address], [id number] , [place] tel:[phone] [facility] Back Pain (chief complaint) Radiculopathy, lumbar regionMyalgia, other sitePostlamine ctomy syndrome, not elsewhere classifiedLong term (current) use of opiate analgesicEncou nter for therapeutic drug level monitoringEnco unter for screening for other disorderPain in right shoulderPain in right knee Jul- 2 Mayra Rapp. [address] [place] [address] [address], [place], [place], [id number] , [place]. tel:[phone] Referring Provider: Caleb Ontiveros, [facility] [address] [facility], [place], [address]. tel:[phone] OFFICE VISIT, [facility], [address] [place] [address], [id number] , [place] tel: [phone] [facility] Back Pain (chief complaint) Postlaminectom y syndrome, not elsewhere classifiedRadi culopathy, lumbar regionMyalgia, other siteLong term (current) use of opiate analgesic - 2 Mayra Rapp. [facility] [address], [place], [place], [id number] , [place]. tel:[phone] Referring Provider: Too Del Cid, [address] [place] [address], [address]. tel:[phone] OFFICE/OUTPAT IENT VISIT, [facility], [address] [place] [address], [id number] , [place] tel:[phone] [facility] Back Pain (chief complaint) Myalgia, other sitePostlamine ctomy syndrome, not elsewhere classifiedRadi culopathy, lumbar regionLong term (current) use of opiate analgesic 1 Mayra Rapp. [address] [place] [address] [address], [place], [place], [id number] , [place]. tel:[phone] Referring Provider: Too Del Cid, [address] [place] [address], [address]. tel:[phone] OFFICE VISIT, [facility], [address] [place] [address], [id number] , [place] tel:[phone] [facility] low back pain (chief complaint) Radiculopathy, lumbar regionMyalgia, other siteLong term (current) use of opiate analgesicPostl aminectomy syndrome, not elsewhere classified Nov- 1 Mayra Rapp. [address] [facility] [address], [place], [place], [id number] , [place]. tel:[phone] Referring Provider: Too Del Cid, [address] [place] [address], [address]. tel:[phone] [facility], [address] [place] [address], [id number] , [place] tel:[phone] [facility] Postlaminectom y syndrome, not elsewhere classified 1 Mayra Rapp. [address] [place] [address] [address], [place], [place], [id number] , [place]. tel:[phone] Referring Provider: Too Del Cid, [address] [place] [address], [address]. tel:[phone] OFFICE/OUTPAT IENT VISIT, EST [facility], [address] [place] [address], [id number] , [place] tel:[phone] [facility] Widespread pain (chief complaint) Postlaminectom y syndrome, not elsewhere classifiedRadi culopathy, lumbar regionMyalgia, other siteLong term (current) use of opiate analgesic 1 Mayra Rapp. [address] [place] [address] [address], [place], [place], [id number] , [place]. tel:[phone] Referring Provider: Too Del Cid, [address] [place] [address], [address]. tel:[phone] [facility], [address] [place] [address], [id number] , [place] tel:[phone] [facility] No Information 1 Mayra Rapp. [address] [place] [address] [address], [place], [place], [id number] , [place]. tel:[phone] Referring Provider: Too Del Cid, [address] [place] [address], [address]. tel:[phone] OFFICE/OUTPAT IENT VISIT, [facility], [address] [place] [address], [id number] , [place] tel:[phone] [facility] Widespread pain (chief complaint) Postlaminectom y syndrome, not elsewhere classifiedRadi culopathy, lumbar regionMyalgia, other siteLong term (current) use of opiate analgesic 1 aMyra Rapp. [address] [place] [address] [address], [place], [place], [id number] , [place]. [phone] Referring Provider: Too Del Cid, [address] [place] [address], [address]. tel:[phone] OFFICE/OUTPAT IENT VISIT, [facility], [address] [place] [address], [id number] , [place] [phone] [facility] Widespread pain (chief complaint) Postlaminectom y syndrome, not elsewhere classifiedRadi culopathy, lumbar regionMyalgia, other siteLong term (current) use of opiate analgesic 1 Mayra Rapp. [address] [place] [address] [address], [place], [place], [id number] , [place]. [phone] Referring Provider: Too Del Cid, [address] [place] [address], [address]. tel:[phone] [place] [address] [facility] Clinic, [address] [place] [address], [id number] , [place] [phone] [facility] Postlaminectom y syndrome, not elsewhere classified 1 Mayra Rapp. [address] [place] [address] [address], [place], [place], [id number] , [place]. tel:[phone] Referring Provider: Too Del Cid, [address] [place] [address], [address]. tel:[phone] OFFICE/OUTPAT IENT VISIT, [facility], [address] [place] [address], [id number] , [place] tel:[phone] [facility] Widespread pain (chief complaint) Radiculopathy, lumbar regionMyalgia, other siteLong term (current) use of opiate analgesicPostl aminectomy syndrome, not elsewhere classified 1 Mayra Rapp. [address] [place] [address] [address], [place], [id number] , [place]. tel:[phone] Referring Provider: Too Del Cid, [address] [place] [address], [address]. tel:[phone] [facility], [address] [place] [address], [id number] , [place] tel:[phone] [facility] Postlaminectom y syndrome, not elsewhere classified Apr-0 1 Nunez Dionte. [address] [place] [address] [address], [place], [place], [id number] , [place]. tel:[phone] Referring Provider: Too Del Cid, [address] [place] [address], [address]. tel:[phone] OFFICE/OUTPAT IENT VISIT, [facility], [address] [place] [address], [id number] , [place] tel:[phone] [facility] Widespread pain (chief complaint) Postlaminectom y syndrome, not elsewhere classifiedRadi culopathy, lumbar regionMyalgia, other siteLong term (current) use of opiate analgesicEncou nter for screening for other disorder Apr-0 1 Mayra Rapp. [address] [place] [address] [address], [place], [place], [id number] , [place]. tel:[phone] Referring Provider: Too Del Cid, [address] [place] [address], [address]. [phone] OFFICE/OUTPAT IENT VISIT, [facility], [address] [place] [address], [id number] , [place] tel:[phone] [facility] Widespread pain (chief complaint) Postlaminectom y syndrome, not elsewhere classifiedRadi culopathy, lumbar regionMyalgia, other siteLong term (current) use of opiate analgesic Mar-0 1 Mayra Rapp. [address] [place] [address] [address], [place], [place], [id number] , [place]. tel:[phone] Referring Provider: Too Del Cid, [address] [place] [address], [address]. tel:[phone] [facility], [address] [place] [address], [id number] , [place] tel: [phone] [facility] [place] Postlaminectom y syndrome, not elsewhere classified 1 Mayra Rapp. [address] [place] [address] [address], [place], [place], [id number] , [place]. tel:[phone] Referring Provider: Too Del Cid, [address] [place] [address], [address]. tel:[phone] [place] [address] [facility], [address] [place] [address], [id number] , [place] tel:[phone] [facility] [place] No Information 1 Mayra Rapp. [address] [place] [address], [place], [place], [id number] , [place]. tel:[phone] OFFICE/OUTPAT IENT VISIT, EST [facility], [address] [place] [address], [id number] , [place] tel: [phone] [facility] [place] Widespread pain (chief complaint) Postlaminectom y syndrome, not elsewhere classifiedRadi culopathy, lumbar regionMyalgia, other siteLong term (current) use of opiate analgesicPain in right kneeChronic pain syndrome 1 Mayra Rapp. [address] [place] [address] [address], [place], [place], [id number] , [place]. tel:[phone] Referring Provider: Too Del Cid, [address] [place] [address], [address]. tel:[phone] OFFICE VISIT, EST TELEMEDICINE [facility], [address] [place] [address], [id number] , [place] tel: [phone] [facility] [place] Widespread pain (chief complaint) Postlaminectom y syndrome, not elsewhere classifiedRadi culopathy, lumbar regionMyalgia, other siteLong term (current) use of opiate analgesicPain in right kneeChronic pain syndrome 0 Mayra Rapp. [address] [place] [address] [address], [place], [place], [id number] , [place]. tel:[phone] Referring Provider: Too Del Cid, [address] [place] [address], [address]. tel:[phone] [facility], [address] [place] [address], [id number] , [place] tel:[phone] [facility] Postlaminectom y syndrome, not elsewhere classified 0 Mayra Rapp. [address] [place] [address] [address], [place], [place], [id number] , [place]. tel:[phone] Referring Provider: Too Del Cid, [address] [place] [address], [address]. tel:[phone] [facility], [address] [place] [address], [id number] , [place] tel:[phone] [facility] Postlaminectom y syndrome, not elsewhere classified 0 Emiliano Martinez. [address] [place] [address], [id number] , [place]. tel:[phone] Referring Provider: Too Del Cid, [address] [place] [address], [address]. tel:[phone] OFFICE VISIT, EST TELEMEDICINE [facility], [address] [place] [address], [id number] , [place] tel:[phone] [facility] Widespread pain (chief complaint) Radiculopathy, lumbar regionMyalgia, other siteLong term (current) use of opiate analgesicPain in right kneeChronic pain syndromePostla minectomy syndrome, not elsewhere classified 0 Mayra Rapp. [address] [place] [address] [address], [place], [place], [id number] , [place]. tel:[phone] Referring Provider: Too Del Cid, [address] [place] [address], [address]. tel:[phone] OFFICE/OUTPAT IENT VISIT, EST [facility], [address] [place] [address], [id number] , [place] tel:[phone] [facility] [place] Widespread pain (chief complaint) Myalgia, other siteRadiculopa thy, lumbar regionPostlami nectomy syndrome, not elsewhere classifiedLong term (current) use of opiate analgesicPain in right kneeChronic pain syndrome 0 Nunez Dionte. [address] [facility] [address], [place], [place], [id number] , [place]. tel:[phone] Referring Provider: Too Del Cid, [address] [place] [address], [address]. tel:[phone] [facility], [address] [place] [address], [id number] , [place] tel:[phone] [facility] Postlaminectom y syndrome, not elsewhere classifiedMyal isabel, other site 0 Nyjoe Hays. [address] [facility] [address], [place], [place], [id number] , [place]. tel:[phone] Referring Provider: Too Del Cid, [address] [place] [address], [address]. tel:[phone] [facility], [address] [place] [address], [id number] , [place] tel:[phone] [facility] Radiculopathy, lumbar regionPostlami nectomy syndrome, not elsewhere classified 0 Mayra Rapp. [address] [facility] [address], [place], [place], [id number] , [place]. tel:[phone] Referring Provider: Too Del Cid, [address] [place] [address], [address]. tel:[phone] [facility], [address] [place] [address], [id number] , [place] tel:[phone] [facility] No Information Oct-0 6-202 0 Will Too. [address] [place] [address], [id number] , [place]. [phone] Referring Provider: Too Del Cid, [address] [place] [address], [address]. tel:[phone] OFFICE VISIT, EST TELEMEDICINE [facility], [address] [place] [address], [id number] , [place] tel:[phone] [facility] [place] Widespread pain (chief complaint) Radiculopathy, lumbar regionLong term (current) use of opiate analgesicMyalg ia, other sitePain in right kneeChronic pain syndromePostla minectomy syndrome, not elsewhere classified Sep-2 5-202 0 Mayra Rapp. [facility] [facility] [address], [place], [place], [id number] , [place]. [phone] Referring Provider: Too Del Cid, [address] [place] [address], [address]. tel:[phone] [facility], [address] [place] [address], [id number] , [place] [phone] [facility] Radiculopathy, lumbar region Sep-0 -202 0 Cummings Michelle. [address] [place] [address], [id number] , [place]. [phone] Referring Provider: Too Del Cid, [address] [place] [address], [address]. tel:[phone] [facility], [address] [place] [address], [id number] , [place] tel:[phone] [facility] No Information Sep-0 3-202 0 Cummings Michelle. [address] [place] [address], [id number] , [place]. [phone] Referring Provider: Too Del Cid, [address] [place] [address], [address]. tel:[phone] OFFICE VISIT, EST TELEMEDICINE [facility], [address] [place] [address], [id number] , [place] tel: [phone] [facility] [place] Widespread pain (chief complaint) Postlaminectom y syndrome, not elsewhere classifiedLong term (current) use of opiate analgesicRadic ulopathy, lumbar regionMyalgia, other sitePain in right kneeChronic pain syndrome 0 Nunez Dionte. [address] [place] [address] [address], [place], [id number] , [place]. tel:[phone] Referring Provider: Too Del Cid, [address] [place] [address], [address]. tel:[phone] [facility], [address] [place] [address], [id number] , [place] tel: [phone] [facility] Rebecca Postlaminectom y syndrome, not elsewhere classified 0 Nunez Dionte. [address] [place] [address] [address], [facility], [place], [id number] , [place]. tel:[phone] OFFICE VISIT, EST TELEMEDICINE [facility], [address] [place] [address], [id number] , [place] tel: [phone] [facility] [place] Widespread pain (chief complaint) Pain in right kneeChronic pain syndromePostla minectomy syndrome, not elsewhere classifiedLong term (current) use of opiate analgesicRadic ulopathy, lumbar regionMyalgia, other site 0 Nunez Dionte. [address] [place] [address] 100, [facility], [place], [id number] , [place]. tel:[phone] Referring Provider: Too Del Cid, [address] [place] [address], [address]. tel:[phone] OFFICE VISIT, EST TELEMEDICINE [facility], [address] [place] [address], [id number] , [place] tel:[phone] Telehealth Widespread pain (chief complaint) Pain in right kneeChronic pain syndromePostla minectomy syndrome, not elsewhere classifiedLong term (current) use of opiate analgesicRadic ulopathy, lumbar regionMyalgia, other site 0 Mayra Rapp. [address] [place] [address] [address], [place], [place], [id number] , [place]. tel:[phone] Referring Provider: Too Del Cid, [address] [place] [address], [address]. tel:[phone] OFFICE VISIT, EST TELEMEDICINE [facility], [address] [place] [address], [id number] , [place] tel:[phone] Telehealth Widespread pain (chief complaint) Postlaminectom y syndrome, not elsewhere classifiedPain in right kneeChronic pain syndromeLong term (current) use of opiate analgesicRadic ulopathy, lumbar regionMyalgia, other site 0 Mayra Rapp. [address] [place] [address] [address], [place], [place], [id number] , [place]. tel:[phone] Referring Provider: Too Del Cid, [address] [place] [address], [address]. tel:[phone] Psych Dx Eval [facility], [address] [place] [address], [id number] , [place] tel:[phone] Telehealth Pain disorder with related psychological factorsPost-tr aumatic stress disorder, unspecified 0 Tess Aguilar. [address] [place] [address], [id number] , [place]. [phone] Referring Provider: Too Del Cid, [address] [place] [address], [address]. tel:[phone] OFFICE VISIT, EST TELEMEDICINE [facility], [address] [place] [address], [id number] , [place] tel:[phone] Telehealth Widespread pain (chief complaint) Chronic pain syndromePain in right kneePostlamine ctomy syndrome, not elsewhere classifiedLong term (current) use of opiate analgesicMyalg ia, other siteRadiculopa thy, lumbar region 0 Mayra Rapp. [address] [place] [address] [address], [place], [place], [id number] , [place]. tel:[phone] Referring Provider: Too Del Cid, [address] [place] [address], [address]. tel:[phone] OFFICE VISIT, EST [facility], [address] [place] [address], [id number] , [place] tel: [phone] Telehealth Widespread pain (chief complaint) Chronic pain syndromePain in right kneePostlamine ctomy syndrome, not elsewhere classifiedLong term (current) use of opiate analgesic Amos-0 2- 0 Nunez Dionte. [address] [place] [address] [address], [place], [place], [id number] , [place]. tel:[phone] Referring Provider: Too Del Cid, [address] [place] [address], [address]. tel:[phone] OFFICE VISIT, [facility], [address] [place] [address], [id number] , [place] tel: [phone] Telehealth Widespread pain (chief complaint) Postlaminectom y syndrome, not elsewhere classifiedPain in right kneeChronic pain syndromeLong term (current) use of opiate analgesic September- 0 Nunez Dionte. [address] [place] [address] [address], [place], [place], [id number] , [place]. tel: [phone] Referring Provider: Too Del Cid, [address] [place] [address], [address]. tel:[phone] OFFICE VISIT, [facility], [address] [place] [address], [id number] , [place] tel: [phone] Telehealth Widespread pain (chief complaint) Postlaminectom y syndrome, not elsewhere classifiedPain in right kneeChronic pain syndromeLong term (current) use of opiate analgesicPain in left hip September-0 0 Nunez Dionte. [address] [place] [address] [address], [place], [place], [id number] , [place]. tel: [phone] OFFICE VISIT, EST [facility], [address] [place] [address], [id number] , [place] tel:[phone] Telehealth Widespread pain (chief complaint) Postlaminectom y syndrome, not elsewhere classifiedPain in right kneeChronic pain syndromeLong term (current) use of opiate analgesic Apr-2 0-202 0 Mayra Rapp. 1455 [facility] [address], [place], [place], [id number] , [place]. tel:[phone] Referring Provider: Too Del Cid, [address] [place] [address], [address]. tel:[phone] OFFICE VISIT, EST TELEMEDICINE [facility], [address] [place] [address], [id number] , [place] tel:[phone] Telehealth Widespread pain (chief complaint) Postlaminectom y syndrome, not elsewhere classifiedPain in right kneeChronic pain syndromeLong term (current) use of opiate analgesic Apr-0 2-202 0 Mayra Rapp. [address] [place] [address] [address], [place], [place], [id number] , [place]. tel:[phone] Referring Provider: Too Del Cid, [address] [place] [address], [address]. tel:[phone] OFFICE VISIT, EST TELEMEDICINE [facility], [address] [place] [address], [id number] , [place] tel:[phone] [facility] Widespread pain (chief complaint) halfway (current) use of opiate analgesicPostl aminectomy syndrome, not elsewhere classifiedPain in right kneeChronic pain syndrome 8 0 Mayra Rapp. [address] [place] [address] [address], [place], [place], [id number] , [place]. tel:[phone] Referring Provider: Too Del Cid, [address] [place] [address], [address]. tel:[phone] [facility], [address] [place] [address], [id number] , [place] [phone] [facility] [place] No Information Jul- 0- 0 Mayra Rapp. [address] [place] [address] [address], [facility], [place], [id number] , [place]. tel:[phone] OFFICE/OUTPAT IENT VISIT, [facility], [address] [place], [place], [id number] , [place] tel:[phone] [facility] Widespread pain (chief complaint) Chronic pain syndromePostla minectomy syndrome, not elsewhere classifiedPain in right kneeLong term (current) use of opiate analgesic Jul-0 - 0 Mayra Rapp. 1455 [facility] [address], [place], [place], [id number] , [place]. tel:[phone] Referring Provider: Too Del Cid, [address] [place], [address]. tel:[phone] OFFICE/OUTPAT IENT VISIT, [facility], [address] [place], [place], [id number] , [place] tel: [phone] [facility] Widespread pain (chief complaint) Chronic pain syndromePostla minectomy syndrome, not elsewhere classifiedMyal isabel, other sitePain in right kneeEncounter for therapeutic drug level monitoringLong term (current) use of opiate analgesic 2 0 Nunez Dionte. 1455 [facility] [address], [place], [place], [id number] , [place]. tel:[phone] Referring Provider: Caleb Ontiveros [facility] [address] [facility], [place], [address]. tel:[phone] Family History Family Member Type Diagnosis Age At Onset No Information Payers Payer name Insurance type Covered libertarian ID Authoriza tiada(s) [employer] [place] [facility] Replacement [id number] Social History Type Description Quantity Date Captured [...] Goal AST (SGOT). Due on due Goal SCRAP COLLECTOR Scanned. Due on due Goal EXPLOSIVE ORDNANCE MANAGER Paperwork. Due on due Goal Creatinine. [...] due Goal CT-Colonography. Due on due Goal EXPLOSIVE ORDNANCE MANAGER Paperwork. Due on due Goal OARS. Due on due Goal SCRAP COLLECTOR Scanned. Due on due Goal ALT (SGPT). [...] due Goal OARS. Due on due Goal EXPLOSIVE ORDNANCE MANAGER Paperwork. Due on due Goal Creatinine. Due on due Goal UDT. Due on due Goal Order Annual PT. Due on due Goal AST (SGOT). Due on due Goal SCRAP COLLECTOR Scanned. Due on due Goal Unhealthy drug [...] due Goal OARS. Due on due Goal SCRAP COLLECTOR Scanned. Due on due Goal Order Annual PT. Due on due Goal AST (SGOT). Due on due Goal ALT (SGPT). Due on due Goal EXPLOSIVE ORDNANCE MANAGER Paperwork. Due on due Goal UDT. [...] Goal Lipid panel. Due on due Goal SCRAP COLLECTOR Scanned. Due on due Goal Zoster vaccine ( ). Due on due Goal Creatinine. Due on due Goal OARS. Due on due Goal AST (SGOT). Due on due Goal Order Annual PT. Due on due Goal UDT. Due on due Goal EXPLOSIVE ORDNANCE MANAGER Paperwork. Due on due Goal ALT [...] due Goal Creatinine. Due on due Goal EXPLOSIVE ORDNANCE MANAGER Paperwork. Due on due Goal ALT (SGPT). Due on due Goal Order Annual PT. Due on due Goal SCRAP COLLECTOR Scanned. Due on due Goal OARS. Due [...] due Goal Creatinine. Due on due Goal SCRAP COLLECTOR Scanned. Due on due Goal EXPLOSIVE ORDNANCE MANAGER Paperwork. Due on due Goal OARS. [...] due Goal UDT. Due on due Goal SCRAP COLLECTOR Scanned. Due on due Goal Creatinine. Due on due Goal ALT (SGPT). Due on due Goal Order Annual PT. Due on due Goal EXPLOSIVE ORDNANCE MANAGER Paperwork. Due on due Goal OARS. [...] due Goal Creatinine. Due on due Goal SCRAP COLLECTOR Scanned. Due on due Goal OARS. Due on due Goal AST (SGOT). Due on due Goal ALT (SGPT). Due on due Goal Order Annual PT. Due on due Goal EXPLOSIVE ORDNANCE MANAGER Paperwork. Due on due Goal Unhealthy [...] Allergy L ist. Due on due Goal SCRAP COLLECTOR Scanned. Due on due Goal ALT (SGPT). Due on due Goal UDT. Due on due Goal AST (SGOT). Due on due Goal EXPLOSIVE ORDNANCE MANAGER Paperwork. Due on due Goal Order [...] Order Annual PT. Due on due Goal EXPLOSIVE ORDNANCE MANAGER Paperwork. Due on due Goal AST (SGOT). Due on due Goal ALT (SGPT). Due on due Goal UDT. Due on due Goal OARS. Due on due Goal SCRAP COLLECTOR Scanned. Due on due Goal Creatinine. Due [...] u se screening. Due on due Goal SCRAP COLLECTOR Scanned. Due on due Goal EXPLOSIVE ORDNANCE MANAGER Paperwork. Due on due Goal ALT [...] Goal Tobacco Use. Due on due Goal EXPLOSIVE ORDNANCE MANAGER Paperwork. Due on due Goal Creatinine. Due on due Goal AST (SGOT). Due on due Goal OARS. Due on due Goal ALT (SGPT). Due on due Goal UDT. Due on due Goal SCRAP COLLECTOR Scanned. Due on due Goal Order Annual [...] Goal Tobacco Use. Due on due Goal EXPLOSIVE ORDNANCE MANAGER Paperwork. Due on due Goal UDT. Due on due Goal SCRAP COLLECTOR Scanned. Due on due Goal Order Annual [...] due Goal UDT. Due on due Goal EXPLOSIVE ORDNANCE MANAGER Paperwork. Due on due Goal OARS. Due on due Goal Creatinine. Due on due Goal SCRAP COLLECTOR Scanned. Due on due Goal Order Annual [...] Order Annual PT. Due on due Goal SCRAP COLLECTOR Scanned. Due on due Goal UDT. Due on due Goal AST (SGOT). Due on due Goal Creatinine. Due on due Goal OARS. Due on due Goal EXPLOSIVE ORDNANCE MANAGER Paperwork. Due on due Goal ALT [...] Goal ALT (SGPT). Due on due Goal SCRAP COLLECTOR Scanned. Due on due Goal Creatinine. Due on due Goal EXPLOSIVE ORDNANCE MANAGER Paperwork. Due on due Goal UDT. [...] C scre ening. Due on due Goal SCRAP COLLECTOR Scanned. Due on due Goal OARS. Due on due Goal Creatinine. Due on due Goal EXPLOSIVE ORDNANCE MANAGER Paperwork. Due on due Goal ALT [...] Order Annual PT. Due on due Goal EXPLOSIVE ORDNANCE MANAGER Paperwork. Due on due Goal AST (SGOT). Due on due Goal SCRAP COLLECTOR Scanned. Due on due Goal ALT (SGPT). [...] Order Annual PT. Due on due Goal EXPLOSIVE ORDNANCE MANAGER Paperwork. Due on due Goal AST (SGOT). Due on due Goal SCRAP COLLECTOR Scanned. Due on due Goal ALT (SGPT). [...] Order Annual PT. Due on due Goal EXPLOSIVE ORDNANCE MANAGER Paperwork. Due on due Goal AST (SGOT). Due on due Goal SCRAP COLLECTOR Scanned. Due on due Goal ALT (SGPT). [...] Order Annual PT. Due on due Goal EXPLOSIVE ORDNANCE MANAGER Paperwork. Due on due Goal AST (SGOT). Due on due Goal SCRAP COLLECTOR Scanned. Due on due Goal ALT (SGPT). [...] Order Annual PT. Due on due Goal EXPLOSIVE ORDNANCE MANAGER Paperwork. Due on due Goal AST (SGOT). Due on due Goal SCRAP COLLECTOR Scanned. Due on due Goal ALT (SGPT). [...] Order Annual PT. Due on due Goal EXPLOSIVE ORDNANCE MANAGER Paperwork. Due on due Goal AST (SGOT). Due on due Goal SCRAP COLLECTOR Scanned. Due on due Goal ALT (SGPT). [...] Order Annual PT. Due on due Goal EXPLOSIVE ORDNANCE MANAGER Paperwork. Due on due Goal AST (SGOT). Due on due Goal SCRAP COLLECTOR Scanned. Due on due Goal ALT (SGPT). [...] Order Annual PT. Due on due Goal EXPLOSIVE ORDNANCE MANAGER Paperwork. Due on due Goal AST (SGOT). Due on due Goal SCRAP COLLECTOR Scanned. Due on due Goal ALT (SGPT). [...] Order Annual PT. Due on due Goal EXPLOSIVE ORDNANCE MANAGER Paperwork. Due on due Goal AST (SGOT). Due on due Goal SCRAP COLLECTOR Scanned. Due on due Goal ALT (SGPT). [...] Order Annual PT. Due on due Goal EXPLOSIVE ORDNANCE MANAGER Paperwork. Due on due Goal AST (SGOT). Due on due Goal SCRAP COLLECTOR Scanned. Due on due Goal ALT (SGPT). [...] Radiculopathy, lumbar region) ordered Referral Referred To: [facility] [address] [place], [phone] Ordered: Referrals: Family Medicine. [facility] ordered Referral Ordered: X-RAY EXAM OF HIPS LT hip ordered Referral Ordered: Azael Regan -[facility] : Family Medicine (related to Postlaminectomy syndrome, not elsewhere classified) ordered Referral Referred To: Azael Regan [facility]
[address] [place], [phone] Ordered: Referrals: [facility]opathic [facility] Osteopathic Physicians : [...] assessment:Difficulty reaching, lifting, carrying, pushing, pulling, and strainer tender is hopeful that the SCS device will [...] discomfort. Patient was meeting with Jose from [employer] today and expressed her frustration with [...] TKA on 07/09/[address] Camara from [facility]. SCRAP COLLECTOR was reviewed and shows pt was rx'ed 2mg Dilaudid max 7/day for post op pain. She was rx'ed #49tabs on 08/23/21, #49tabs on 08/19/21 and #49 tabs on 08/08/21. Her chronic dose at [facility] is #5tabs a day, patient [...] rescheduled for 07/09/[address] Camara from [facility]. Surgeon will manage post-op pain. Lower [...] for [address] Lino or from [facility]. It was canceled due to no hospital beds available with [facility].Expresses her ongoing frustration regarding her lumbar [...] scheduled R TKA with Dr. Camara through [facility]. Discussed post-op pain management. Also continues [...] order. She looks forward to reprogramming with [employer] today as she has had questions about [...] warfarin. She met with her orthopedist at [facility] regarding her R knee pain. Orthopedist recommended [...] month due to visiting her daughter in [place]. She realized she can not walk long distances with her walker. Had a injection scheduled with [facility] but [employer] [facility] could not provide her the ride from [place]. She is excited about the recently approved [...] trial.She had a recent lumbar MRI with [facility] and per patient the imaging showed herniation and disc slippage at multiple levels. She said [facility] recommend a injection. With previous injections, she explains having a reaction to the procedure. She scheduled the injection on 12/[address] estrella at [facility].Reports current medication regimen provides at least [...] upcoming appt. with a back surgeon through [facility] next week to be evaluated. Reports [...] over.Notes that she followed up with her authorization nurse yesterday. States that she has arrythmia although [...] [employer] SCS trial. 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 She still [...] her medication. Medications are managed by [facility] facility. Denies side effects.Patient is not accompanied [...] been recommended for possible R TKA at [facility], but no date has been scheduled. States her pain causes her lots of anxiety because she has tried many treatments without significant benefit. She is currently enrolled in PT at [facility] in [facility]. She also regularly attends the chiropractor. TENS [...] and other recommended therapies and would like [facility] to assume management of pain care. Functional Status Date Functional Assessmen t No Information Instructions Date Instruction Additional Infor mation No Information Assessments Type Assessment Date assessment Pain in right knee impression S/p right TKA on 12/[address] Camara from [facility]. Has been participating in PT with good benefit. Pain has been worse since [facility] assessment Pain in left ankle and joints of left foot impression Worsening pain in th e left ankle and is considering an ankle fusion assessment Radiculopathy, lumbar region Jul impression Lower back pain with radiation into her BLE, continues to worsen since [facility] assessment Myalgia, other site impression TPIs in the past wit hout benefit. PO muscle relaxers provide moderate relief assessment Postlaminectomy syndrome, not el sewhere classified impression Hx of L4-S1 fusion. She has an SCS implant but may be interested in an explant assessment halfway (current) use of opiat e analgesic impression The medication relie ves at least 60% of the pain, does not cause significant side effects, increases the patient's daily activity level. Medication managed by facility.Most of today's visit was spent discussing the patient's recent discharge from the clinic d/t her inappropriate behavior and language used toward staff. Patient expresses frustrations with termination. EXPLOSIVE ORDNANCE MANAGER terminated.Most recent UDT results reviewed and appropriate. Not appropriate to continue opioid therapy d/t issues with inappropriate behavior. Current MME 30 Mental Status Date Cognitive Assessment Orientation - Wyano ed to time, place, person, situation. Patient Care Teams Name Effective Dates (start - stop) Status Members No Information
--- OUTSIDE RECORDS SUMMARY | 2023-03-03 10:29 | XMS_ITS | Continuity of Care Document ---
Author Name Unknown Organization [facility] Address [address] [place] [id number] Care Team Providers Care Saloon Keeper Name Role Phone Simba Lowry CRNA Unavailable Unavailable Procedures Procedure Date ANESTH, HEAD/NECK/PTRUNK ANESTH PERC IMG TX SP PROC Advance Directives Directive Yes / No Effective Date File Name No Information Encounters Encounter Description Practice Location Reason(s) For Visit Diagnoses Date Provider Providers Copied on Encounter [facility], [address] [place] [address], [id number], [facility] No Information Alen Cottrell. [address] [place] [address], [id number], . tel:[phone] Referring Provider: Michelle Cummings, [address] [place] [address], [address] . tel:[phone] [facility], [address] [place] [address], [id number], [facility] No Information Asad Ramirez. [address], [place], [place], [id number], . tel:[phone] Referring Provider: Too Del Cid, [address] [place], [address] . tel:[phone] Family History Family Member Type Diagnosis Age [...]
--- OUTSIDE RECORDS SUMMARY | 2023-03-03 10:29 | XMS_ITS | Continuity of Care Document ---
Author Name Unknown Organization [facility] Address [address] [place] [address] Phone Care Team Providers Care Enrobing Machine Operator Name Role Phone Odalys BOLES, Homar [...] C, [address], [place], [place], [id number], [place] tel:[phone] [facility] No Information 8 Odalys Graf. [facility], [address] [place] [address] [address], [place], [place], [id number] , [place]. tel:[phone] [facility], [address], [place], [id number], [place] tel:[phone] [facility] No Information 8 Odalys Graf. [facility], [address] [place] [address] [address], [place], [address] , [place]. tel:[phone] [facility], [address], [place], [address], [place] tel:[phone] [facility] No Information 8 Rodrick Pop. [facility], [address] [place] [address] [address], [place], [address] , [place]. tel:[phone] Referring Provider: Homar Morrow, [facility] [address] [place] [address] [address], [place], [address] . tel:[phone] [facility], [address], [place], [id number], [place] tel:[phone] [facility] No Information 6 8 Odalys Graf. [facility], [address], [place], [address] , [place]. [phone] Referring Provider: Homar Morrow, [facility] [address], [place], [address] . tel:[phone] Office/Outpat ient Visit,Est, Mod [facility], [address], [place], [id number], [place] tel:[phone] [facility] Spinal stenosis, lumbar region 5 7 Odalys Graf. [facility], [address], [place], [address] , [place]. [phone] Referring Provider: Homar Morrow, [facility] [address], [place], [address] . tel:[phone] [facility], [address], [place], [id number], [place] tel:[phone] [facility] Spinal stenosis, lumbar region 0-201 6 Odalys Graf. [facility], [address], [place], [address] , [place]. [phone] Referring Provider: Homar Morrow, [facility] [address], [place], [address] . tel:[phone] [facility], [address], [place], [id number], [place] tel:[phone] [facility] Arthrodesis status 1-201 6 Odalys Graf. [facility], [address], [place], [address] , [place]. tel: [phone] [facility], [address], [place], [id number], [place] tel:[phone] [facility] No Information Sep-2 6 Odalys Rowlandin. [facility], [address], [place], [id number] , [place]. tel:[phone] Referring Provider: Homar Morrow, [facility] [address], [place], [address] . tel:[phone] Family History Family Member Type Diagnosis Age At Onset No Information Payers Payer name Insurance type Covered libertarian ID Authoreneida aaron(s) Medicare [id number] Social History Type Description Quantity Date Captured [...]
== END 2023-03-03 10:26 | disposition home or self-care (01) ==
PROVIDERS: PCP Internal Medicine; Visit Provider Internal Medicine
DX: R53.83 Other fatigue (principal); I48.91 Unspecified atrial fibrillation; E11.9 Type 2 diabetes mellitus without complications
CPT/HCPCS: 80053; 80162; 85610

== ENCOUNTER 2023-04-08 10:10 | Outpatient (CLI) | payer OTHER, SELFPAY ==
--- OUTSIDE RECORDS SUMMARY | 2023-04-08 10:12 | XMS_ITS | Continuity of Care Document ---
Author Name Unknown Organization [facility] Address [address] [place] [address] Phone Care Team Providers Care Artificial Snow Making Machine Operator Name Role Phone Odalys BOLES, [...] C, [address], [place], [address], [place] tel:[phone] [facility] No Information 8 Odalys Graf. [facility] [place], [address] [place] [address] [address], [place], [address] , [place]. tel:[phone] [facility], [address], [place], [address], [place] tel:[phone] [facility] No Information 8 Odalys Graf. [facility] [place], [address] [place] [address] [address], [place], [address] , [place]. tel:[phone] [facility], [address], [place], [address], [place] tel:[phone] [facility] No Information 8 Rodrick Pop. [facility] [place], [address] [place] [address] [address], [place], [place], [address] , [place]. tel:[phone] Referring Provider: Homar Morrow, [facility] [place] [address] [place] [address] [address], [place], [address] . tel:[phone] [facility], [address], [place], [address], [place] tel:[phone] [facility] No Information 6 8 Odalys Graf. [facility], [address], [place], [address] , [place]. [phone] Referring Provider: Homar Morrow, [facility] [address], [place], [address] . tel:[phone] Office/Outpat ient Visit,Est, Mod [facility], [address], [place], [id number], [place] tel:[phone] [facility] Spinal stenosis, lumbar region 5 7 Odalys Graf. [facility] [place], [address], [place], [address] , [place]. [phone] Referring Provider: Homar Morrow, [facility] [address], [place], [address] . tel:[phone] [facility], [address], [place], [address], [place] tel:[phone] [facility] Spinal stenosis, lumbar region 0-201 6 Odalys Garf. [facility] [place], [address], [place], [address] , [place]. [phone] Referring Provider: Homar Morrow, [facility] [address], [place], [address] . tel:[phone] [facility], [address], [place], [address], [place] tel:[phone] [facility] Arthrodesis status 1-201 6 Odalys Graf. [facility] [place], [address], [place], [address] , [place]. [phone] [facility], [address], [place], [id number], [place] tel:[phone] [facility] No Information Sep-2 6 Odalys Rowlandin. [facility], [address], [place], [id number] , [place]. tel:[phone] Referring Provider: Homar Morrow, [facility] [address], [place], [address] . tel:[phone] Family History Family Member Type Diagnosis Age At Onset No Information Payers Payer name Insurance type Covered green party ID Authoreneida aaron(s) Medicare [id number] Social History Type Description Quantity Date Captured [...]
--- OUTSIDE RECORDS SUMMARY | 2023-04-08 10:12 | XMS_ITS | Continuity of Care Document ---
Author Name Unknown Organization [facility] Address [address] [place] [address] Care Team Providers Care Electronics Recycler Name Role Phone Simba Lowry CRNA Unavailable Unavailable Procedures Procedure Date ANESTH, HEAD/NECK/PTRUNK ANESTH PERC IMG TX SP PROC Advance Directives Directive Yes / No Effective Date File Name No Information Encounters Encounter Description Practice Location Reason(s) For Visit Diagnoses Date Provider Providers Copied on Encounter [facility], [address] [place] [address], [id number], [facility] No Information Alen Cottrell. [address] [place] [address], [id number], . tel:[phone] Referring Provider: Michelle Cummings, [address] [place] [address], [address] . tel:[phone] [facility], [address] [place] [address], [id number], [facility] No Information Asad Ramirez. [address], [place], [place], [id number], . tel:[phone] Referring Provider: Too Del Cid, [address] [place], [address] . tel:[phone] Family History Family Member Type Diagnosis Age [...]
--- OUTSIDE RECORDS SUMMARY | 2023-04-08 10:12 | XMS_ITS | Continuity of Care Document ---
Author Name Unknown Organization [facility] Address [address] [place] [address] Care Team Providers Care Auto Service Station Attendant Name Role Phone [facility] Unavailable Unav ailable Procedures Procedure Date [...] Diagnoses Date Provider Providers Copied on Encounter [facility], [address] [place] [address], [id number], [facility] No Information [facility]. [address] [place], [place], [id number], [place]. tel:[phone] Referring Provider: Michelle Cummings, [address] [place], [address]. tel:[phone] [facility], [address] [place], [place], [address], [facility] No Information [facility]. [address] [facility] [place], [place], [address], [place]. tel:[phone] Referring Provider: Too Del Cid, [address] [place], [address]. tel:[phone] [facility], [address] [place], [place], [address], [place] [facility] No Information [facility]. [address] [place], [place], [address], . tel:[phone] Referring Provider: Michelle Cummings, [address] [place], [address]. tel:[phone] Family History Family Member Type Diagnosis Age [...]
--- OUTSIDE RECORDS SUMMARY | 2023-04-08 10:13 | XMS_ITS | Continuity of Care Document ---
Author Name Unknown Organization [facility] rajiv Address [address] [place] [address] Phone Care Team Providers Care Lathe Tender Name Role Phone Dionte Granados Unavailable Unavailable [...] OFFICE VISIT, EST TELEMEDICINE 20 OFFICE VISIT, [facility] TELEMEDICINE 20 Foll-up eval q3mo opiod tx OFFICE/OUTPATIENT VISIT, EST Drug Urine Toxology With Chromatography SCS Trial Procedure Ordered INJ TRIGGER POINT, 1/2 MUSCL OFFICE/OUTPATIENT VISIT, NEW Advance Directives Directive Yes / No Effective Date File Name No Information Encounters Encounter Description Practice Location Reason(s) For Visit Diagnoses Date Provider Providers Copied on Encounter OFFICE VISIT, [facility], [address], [place], [id number] , [place] tel:[phone] [facility] [place] Widespread pain (chief complaint) Pain in right kneePain in left ankle and joints of left footRadiculopa thy, lumbar regionMyalgia, other sitePostlamine ctomy syndrome, not elsewhere classifiedLong term (current) use of opiate analgesic 3 Mayra Rapp. [address], [place], [place], [id number] , [place]. tel:[phone] anticoagulant prescriber: Aleksey Smith [address], [address]. tel:[phone] Provider: Too Del Cid, [address] [place], [address]. tel:[phone] OFFICE VISIT, [facility], [address], [place], [id number] , [place] tel:[phone] [facility] Widespread pain (chief complaint) Postlaminectom y syndrome, not elsewhere classifiedRadi culopathy, lumbar regionMyalgia, other sitePain in left ankle and joints of left footPain in right kneeLong term (current) use of opiate analgesic 3 Shay Morales. [address], [place], [id number] , [place]. tel:[phone] anticoagulant prescriber: Aleksey Smith [address] [place], [address]. tel:[phone] [facility], [address] [place] [address], [id number] , [place] tel:[phone] [facility] [place] pain (chief complaint) Postlaminectom y syndrome, not elsewhere classified 2 Indu Dalal. [address] [place], [place], [id number] , [place]. tel:[phone] Psych Dx Eval [facility], [address] [place] [address], [id number] , [place] tel:[phone] Telehealth Pain disorder with related psychological factorsPost-tr aumatic stress disorder, unspecified 2 Tess Cristiano Peg. [address] [place] [address], [id number] , [place]. tel:[phone] Referring Provider: Too Del Cid, [address] [place] [address], [address]. tel:[phone] Psych Dx Eval [facility], [address] [place] [address], [id number] , [place] tel:[phone] Telehealth Pain disorder with related psychological factorsAnxiety disorder 2 Tess Cristiano Peg. [address] [place] [address], [id number] , [place]. tel:[phone] OFFICE/OUTPAT IENT VISIT, [facility], [address] [place] [address], [id number] , [place] tel:[phone] [facility] [place] Widespread pain (chief complaint) Pain in right hipPain in right kneePain in left ankle and joints of left footRadiculopa thy, lumbar regionPostlami nectomy syndrome, not elsewhere classifiedLong term (current) use of opiate analgesicMyalg ia, other site 2 Heriberto Gage. [address] [place] [address], [id number] , [place]. tel:[phone] anticoagulant prescriber: Aleksey Smith, [address], [address]. tel:[phone] Provider: Too Del Cid, [address] [place] [address], [address]. tel:[phone] OFFICE VISIT, EST TELEMEDICINE [facility], [address] [place] [address], [id number] , [place] tel:[phone] [facility] Back Pain (chief complaint) Pain in right kneePain in left ankle and joints of left footRadiculopa thy, lumbar regionMyalgia, other sitePostlamine ctomy syndrome, not elsewhere classifiedLong term (current) use of opiate analgesicPain in right hip 2 Mayra Rapp. [address] [place] [address] [address], [place], [place], [id number] , [place]. tel:[phone] anticoagulant prescriber: Aleksey Smith, [address], [address]. tel:[phone] OFFICE VISIT, EST TELEMEDICINE [facility], [address] [place] [address], [id number] , [place] tel:[phone] [facility] Back Pain (chief complaint) Pain in right kneePain in left ankle and joints of left footRadiculopa thy, lumbar regionMyalgia, other sitePostlamine ctomy syndrome, not elsewhere classifiedLong term (current) use of opiate analgesic 2 Nunez Dionte. [address] [place] [address] [address], [place], [place], [id number] , [place]. tel:[phone] anticoagulant prescriber: Aleksey Smith [address], [address]. tel:[phone] OFFICE VISIT, EST TELEMEDICINE [facility], [address] [place] [address], [id number] , [place] tel:[phone] [facility] Back Pain (chief complaint) Pain in right kneePain in left ankle and joints of left footRadiculopa thy, lumbar regionMyalgia, other sitePostlamine ctomy syndrome, not elsewhere classifiedLong term (current) use of opiate analgesic 2 Mayra Rapp. [address] [place] [address] [address], [place], [id number] , [place]. tel:[phone] Referring Provider: Too Del Cid, [address] [place] [address], [address]. tel:[phone] OFFICE/OUTPAT IENT VISIT, [facility], [address] [place] [address], [id number] , [place] tel:[phone] [facility] Back Pain (chief complaint) Pain in right kneePain in right ankle and joints of right footPain in left ankle and joints of left footRadiculopa thy, lumbar regionMyalgia, other sitePostlamine ctomy syndrome, not elsewhere classifiedLong term (current) use of opiate analgesic 2 Mayra aRpp. [address] [place] [address] [address], [place], [id number] , [place]. [phone] Referring Provider: Too Del Cid, [address] [place] [address], [address]. tel:[phone] [facility], [address] [place] [address], [id number] , [place] tel:[phone] [facility] No Information 2 Will Too. [address] [place] [address], [id number] , [place]. [phone] OFFICE/OUTPAT IENT VISIT, [facility], [address] [place] [address], [id number] , [place] tel:[phone] [facility] Back Pain (chief complaint) Pain in right shoulderPain in right kneePain in right ankle and joints of right footPain in left ankle and joints of left footRadiculopa thy, lumbar regionMyalgia, other sitePostlamine ctomy syndrome, not elsewhere classifiedLong term (current) use of opiate analgesic 2 Mayra Rpap. [address] [place] [address] [address], [place], [id number] , [place]. [phone] Referring Provider: Too Del Cid, [address] [place] [address], [address]. tel:[phone] OFFICE/OUTPAT IENT VISIT, [facility], [address] [place] [address], [id number] , [place] tel:[phone] [facility] Back Pain (chief complaint) Chronic migraine without aura, intractable, without status migrainosusPai n in right shoulderPain in right kneePain in right ankle and joints of right footPain in left ankle and joints of left footRadiculopa thy, lumbar regionMyalgia, other sitePostlamine ctomy syndrome, not elsewhere classifiedLong term (current) use of opiate analgesicSpond ylosis without myelopathy or radiculopathy, lumbar region 2 Mayra Rapp. [address] [place] [address] [address], [place], [id number] , [place]. tel:[phone] Referring Provider: Too Del Cid, [address] [place] [address], [address]. tel:[phone] OFFICE VISIT, [facility], [address] [place] [address], [id number] , [place] [phone] [facility] Back Pain (chief complaint) Chronic migraine without aura, intractable, without status migrainosusPai n in right shoulderPain in right kneeRadiculopa thy, lumbar regionMyalgia, other sitePostlamine ctomy syndrome, not elsewhere classifiedLong term (current) use of opiate analgesicPain in left ankle and joints of left footPain in right ankle and joints of right foot 2 Mayra Rapp. [address] [place] [address] [address], [place], [id number] , [place]. tel:[phone] OFFICE/OUTPAT IENT VISIT, [facility], [address] [place] [address], [id number] , [place] [phone] [facility] Back Pain (chief complaint) Myalgia, other sitePain in right shoulderPain in right kneeRadiculopa thy, lumbar regionPostlami nectomy syndrome, not elsewhere classifiedLong term (current) use of opiate analgesicChron ic migraine without aura, intractable, without status migrainosus Aug- 2 Mayra Rapp. [address] [place] [address] [address], [place], [place], [id number] , [place]. tel:[phone] Referring Provider: Too Del Cid, [address] [place] [address], [address]. tel:[phone] [facility], [address] [place] [address], [id number] , [place] tel:[phone] [facility] [place] No Information Aug- 2 Will Too. [address] [place] [address], [id number] , [place]. tel:[phone] [facility], [address] [place] [address], [id number] , [place] tel: [phone] [facility] No Information Jul- 2 Mayra Rapp. [address] [place] [address] [address], [place], [place], [id number] , [place]. tel:[phone] Referring Provider: Too Del Cid, [address] [place] [address], [address]. tel:[phone] OFFICE/OUTPAT IENT VISIT, EST [facility], [address] [place] [address], [id number] , [place] tel:[phone] [facility] Back Pain (chief complaint) Radiculopathy, lumbar regionMyalgia, other sitePostlamine ctomy syndrome, not elsewhere classifiedLong term (current) use of opiate analgesicEncou nter for therapeutic drug level monitoringEnco unter for screening for other disorderPain in right shoulderPain in right knee Jul- 2 Mayra Rapp. [address] [place] [address] [address], [place], [place], [id number] , [place]. tel:[phone] Referring Provider: Caleb Ontiveros, [facility] [address] [facility], [place], [address]. tel:[phone] OFFICE VISIT, [facility], [address] [place] [address], [id number] , [place] tel: [phone] [facility] Back Pain (chief complaint) Postlaminectom y syndrome, not elsewhere classifiedRadi culopathy, lumbar regionMyalgia, other siteLong term (current) use of opiate analgesic - 2 Mayra Rapp. [facility]5 [facility] [address], [place], [place], [id number] , [place]. tel:[phone] Referring Provider: Too Del Cid, [address] [place] [address], [address]. tel:[phone] OFFICE/OUTPAT IENT VISIT, [facility], [address] [place] [address], [id number] , [place] tel:[phone] [facility] Back Pain (chief complaint) Myalgia, other sitePostlamine ctomy syndrome, not elsewhere classifiedRadi culopathy, lumbar regionLong term (current) use of opiate analgesic 1 Mayra Rapp. [address] [place] [address] [address], [place], [place], [id number] , [place]. tel:[phone] Referring Provider: Too Del Cid, [address] [place] [address], [address]. tel:[phone] OFFICE VISIT, [facility], [address] [place] [address], [id number] , [place] tel:[phone] [facility] low back pain (chief complaint) Radiculopathy, lumbar regionMyalgia, other siteLong term (current) use of opiate analgesicPostl aminectomy syndrome, not elsewhere classified Nov- 1 Mayra Rapp. [address] [facility] [address], [place], [place], [id number] , [place]. tel:[phone] Referring Provider: Too Del Cid, [address] [place] [address], [address]. tel:[phone] [facility], [address] [place] [address], [id number] , [place] tel:[phone] [facility] Postlaminectom y syndrome, not elsewhere classified 1 Mayra Rapp. [address] [place] [address] [address], [place], [place], [id number] , [place]. tel:[phone] Referring Provider: Too Del Cid, [address] [place] [address], [address]. [phone] OFFICE/OUTPAT IENT VISIT, EST [facility], [address] [place] [address], [id number] , [place] tel:[phone] [facility] Widespread pain (chief complaint) Postlaminectom y syndrome, not elsewhere classifiedRadi culopathy, lumbar regionMyalgia, other siteLong term (current) use of opiate analgesic 1 Mayra Rapp. [address] [place] [address] [address], [place], [place], [id number] , [place]. tel:[phone] Referring Provider: Too Del Cid, [address] [place] [address], [address]. tel:[phone] [facility], [address] [place] [address], [id number] , [place] tel:[phone] [facility] No Information 1 Mayra Rapp. [address] [place] [address] [address], [place], [place], [id number] , [place]. tel:[phone] Referring Provider: Too Del Cid, [address] [place] [address], [address]. tel:[phone] OFFICE/OUTPAT IENT VISIT, [facility], [address] [place] [address], [id number] , [place] tel:[phone] [facility] Widespread pain (chief complaint) Postlaminectom y syndrome, not elsewhere classifiedRadi culopathy, lumbar regionMyalgia, other siteLong term (current) use of opiate analgesic 1 Mayra Rapp. [address] [place] [address] [address], [place], [place], [id number] , [place]. [phone] Referring Provider: Too Del Cid, [address] [place] [address], [address]. tel:[phone] OFFICE/OUTPAT IENT VISIT, [facility], [address] [place] [address], [id number] , [place] [phone] [facility] Widespread pain (chief complaint) Postlaminectom y syndrome, not elsewhere classifiedRadi culopathy, lumbar regionMyalgia, other siteLong term (current) use of opiate analgesic 1 Mayra Rapp. [address] [place] [address] [address], [place], [place], [id number] , [place]. [phone] Referring Provider: Too Del Cid, [address] [place] [address], [address]. tel:[phone] [place] [address] [facility] Clinic, [address] [place] [address], [id number] , [place] [phone] [facility] Postlaminectom y syndrome, not elsewhere classified 1 Mayra Rapp. [address] [place] [address] [address], [place], [place], [id number] , [place]. tel:[phone] Referring Provider: Too Del Cid, [address] [place] [address], [address]. tel:[phone] OFFICE/OUTPAT IENT VISIT, [facility], [address] [place] [address], [id number] , [place] tel:[phone] [facility] Widespread pain (chief complaint) Radiculopathy, lumbar regionMyalgia, other siteLong term (current) use of opiate analgesicPostl aminectomy syndrome, not elsewhere classified 1 Mayra Rapp. [address] [place] [address] [address], [place], [id number] , [place]. tel:[phone] Referring Provider: Too Del Cid, [address] [place] [address], [address]. tel:[phone] [facility], [address] [place] [address], [id number] , [place] tel:[phone] [facility] Postlaminectom y syndrome, not elsewhere classified Apr-0 1 Nunez Dionte. [address] [place] [address] [address], [place], [place], [id number] , [place]. tel:[phone] Referring Provider: Too Del Cid, [address] [place] [address], [address]. tel:[phone] OFFICE/OUTPAT IENT VISIT, [facility], [address] [place] [address], [id number] , [place] tel:[phone] [facility] Widespread pain (chief complaint) Postlaminectom y syndrome, not elsewhere classifiedRadi culopathy, lumbar regionMyalgia, other siteLong term (current) use of opiate analgesicEncou nter for screening for other disorder Apr-0 1 Mayra Rapp. [address] [place] [address] [address], [place], [place], [id number] , [place]. tel:[phone] Referring Provider: Too Del Cid, [address] [place] [address], [address]. [phone] OFFICE/OUTPAT IENT VISIT, [facility], [address] [place] [address], [id number] , [place] tel:[phone] [facility] Widespread pain (chief complaint) Postlaminectom y syndrome, not elsewhere classifiedRadi culopathy, lumbar regionMyalgia, other siteLong term (current) use of opiate analgesic Mar-0 1 Mayra Rapp. [address] [place] [address] [address], [place], [place], [id number] , [place]. tel:[phone] Referring Provider: Too Del Cid, [address] [place] [address], [address]. tel:[phone] [facility], [address] [place] [address], [id number] , [place] tel: [phone] [facility] [place] Postlaminectom y syndrome, not elsewhere classified 1 Mayra Rapp. [address] [place] [address] [address], [place], [place], [id number] , [place]. tel:[phone] Referring Provider: Too Del Cid, [address] [place] [address], [address]. tel:[phone] [place] [address] [facility], [address] [place] [address], [id number] , [place] tel:[phone] [facility] [place] No Information 1 Mayra Rapp. [address] [place] [address], [place], [place], [id number] , [place]. tel:[phone] OFFICE/OUTPAT IENT VISIT, EST [facility], [address] [place] [address], [id number] , [place] tel: [phone] [facility] [place] Widespread pain (chief complaint) Postlaminectom y syndrome, not elsewhere classifiedRadi culopathy, lumbar regionMyalgia, other siteLong term (current) use of opiate analgesicPain in right kneeChronic pain syndrome 1 Mayra Rapp. [address] [place] [address] [address], [place], [place], [id number] , [place]. tel:[phone] Referring Provider: Too Del Cid, [address] [place] [address], [address]. tel:[phone] OFFICE VISIT, EST TELEMEDICINE [facility], [address] [place] [address], [id number] , [place] tel: [phone] [facility] [place] Widespread pain (chief complaint) Postlaminectom y syndrome, not elsewhere classifiedRadi culopathy, lumbar regionMyalgia, other siteLong term (current) use of opiate analgesicPain in right kneeChronic pain syndrome 0 Mayra Rapp. [address] [place] [address] [address], [place], [place], [id number] , [place]. tel:[phone] Referring Provider: Too Del Cid, [address] [place] [address], [address]. tel:[phone] [facility], [address] [place] [address], [id number] , [place] tel:[phone] [facility] Postlaminectom y syndrome, not elsewhere classified 0 Mayra Rapp. [address] [place] [address] [address], [place], [place], [id number] , [place]. tel:[phone] Referring Provider: Too Del Cid, [address] [place] [address], [address]. tel:[phone] [facility], [address] [place] [address], [id number] , [place] tel:[phone] [facility] Postlaminectom y syndrome, not elsewhere classified 0 Emiliano Martinez. [address] [place] [address], [id number] , [place]. tel:[phone] Referring Provider: Too Del Cid, [address] [place] [address], [address]. tel:[phone] OFFICE VISIT, EST TELEMEDICINE [facility], [address] [place] [address], [id number] , [place] tel:[phone] [facility] Widespread pain (chief complaint) Radiculopathy, lumbar regionMyalgia, other siteLong term (current) use of opiate analgesicPain in right kneeChronic pain syndromePostla minectomy syndrome, not elsewhere classified 0 Mayra Rapp. [address] [place] [address] [address], [place], [place], [id number] , [place]. tel:[phone] Referring Provider: Too Del Cid, [address] [place] [address], [address]. tel:[phone] OFFICE/OUTPAT IENT VISIT, EST [facility], [address] [place] [address], [id number] , [place] tel:[phone] [facility] [place] Widespread pain (chief complaint) Myalgia, other siteRadiculopa thy, lumbar regionPostlami nectomy syndrome, not elsewhere classifiedLong term (current) use of opiate analgesicPain in right kneeChronic pain syndrome 0 Nunez Dionte. [address], [place], [place], [id number] , [place]. tel:[phone] Referring Provider: Too Del Cid, [address] [place] [address], [address]. tel:[phone] 2012 [facility], [address] [place] [address], [id number] , [place] tel:[phone] [facility] Postlaminectom y syndrome, not elsewhere classifiedMyal isabel, other site 0 Nyjoe Hays. [address], [place], [place], [id number] , [place]. tel:[phone] Referring Provider: Too Del Cid, [address] [place] [address], [address]. tel:[phone] [facility], [address] [place] [address], [id number] , [place] tel:[phone] [facility] Radiculopathy, lumbar regionPostlami nectomy syndrome, not elsewhere classified 0 Mayra Rapp. 14[address] [facility] [address], [place], [place], [id number] , [place]. tel:[phone] Referring Provider: Too Del Cid, [address] [place] [address], [address]. tel:[phone] [facility], [address] [place] [address], [id number] , [place] tel:[phone] [facility] No Information Oct-0 6-202 0 Will Too. [address] [place] [address], [id number] , [place]. [phone] Referring Provider: Too Del Cid, [address] [place] [address], [address]. tel:[phone] OFFICE VISIT, EST TELEMEDICINE [facility], [address] [place] [address], [id number] , [place] tel:[phone] [facility] [place] Widespread pain (chief complaint) Radiculopathy, lumbar regionLong term (current) use of opiate analgesicMyalg ia, other sitePain in right kneeChronic pain syndromePostla minectomy syndrome, not elsewhere classified Sep-2 5-202 0 Mayra Rapp. [facility], [place], [place], [id number] , [place]. [phone] Referring Provider: Too Del Cid, [address] [place] [address], [address]. tel:[phone] [facility], [address] [place] [address], [id number] , [place] [phone] [facility] Radiculopathy, lumbar region Sep-0 -202 0 Cummings Michelle. [address] [place] [address], [id number] , [place]. [phone] Referring Provider: Too Del Cid, [address] [place] [address], [address]. tel:[phone] [facility], [address] [place] [address], [id number] , [place] tel:[phone] [facility] No Information Sep-0 3-202 0 Cummings Michelle. [address] [place] [address], [id number] , [place]. [phone] Referring Provider: Too Del Cid, [address] [place] [address], [address]. tel:[phone] OFFICE VISIT, EST TELEMEDICINE [facility], [address] [place] [address], [id number] , [place] tel: [phone] [facility] [place] Widespread pain (chief complaint) Postlaminectom y syndrome, not elsewhere classifiedLong term (current) use of opiate analgesicRadic ulopathy, lumbar regionMyalgia, other sitePain in right kneeChronic pain syndrome 0 Nunez Dionte. [address] [place] [address] [address], [place], [place], [id number] , [place]. [phone] Referring Provider: Too Del Cid, [address] [place] [address], [address]. tel:[phone] [facility], [address] [place] [address], [id number] , [place] tel: [phone] [facility] [place] Postlaminectom y syndrome, not elsewhere classified 0 Nunez Dionte. [address] [place] [address] [address], [facility], [place], [id number] , [place]. tel:[phone] OFFICE VISIT, EST TELEMEDICINE [facility], [address] [place] [address], [id number] , [place] tel: [phone] [facility] [place] Widespread pain (chief complaint) Pain in right kneeChronic pain syndromePostla minectomy syndrome, not elsewhere classifiedLong term (current) use of opiate analgesicRadic ulopathy, lumbar regionMyalgia, other site 0 Nunez Dionte. [address] [place] [address] [address], [facility], [place], [id number] , [place]. tel:[phone] Referring Provider: Too Del Cid, [address] [place] [address], [address]. tel:[phone] OFFICE VISIT, EST TELEMEDICINE [facility], [address] [place] [address], [id number] , [place] tel:[phone] Telehealth Widespread pain (chief complaint) Pain in right kneeChronic pain syndromePostla minectomy syndrome, not elsewhere classifiedLong term (current) use of opiate analgesicRadic ulopathy, lumbar regionMyalgia, other site 0 Mayra Rapp. [address] [place] [address] [address], [place], [place], [id number] , [place]. tel:[phone] Referring Provider: Too Del Cid, [address] [place] [address], [address]. tel:[phone] OFFICE VISIT, EST TELEMEDICINE [facility], [address] [place] [address], [id number] , [place] tel:[phone] Telehealth Widespread pain (chief complaint) Postlaminectom y syndrome, not elsewhere classifiedPain in right kneeChronic pain syndromeLong term (current) use of opiate analgesicRadic ulopathy, lumbar regionMyalgia, other site 0 Mayra Rapp. [address] [place] [address] [address], [place], [place], [id number] , [place]. tel:[phone] Referring Provider: Too Del Cid, [address] [place] [address], [address]. tel:[phone] Psych Dx Eval [facility], [address] [place] [address], [id number] , [place] tel:[phone] Telehealth Pain disorder with related psychological factorsPost-tr aumatic stress disorder, unspecified 0 Tess Aguilar. [address] [place] [address], [id number] , [place]. [phone] Referring Provider: Too Del Cid, [address] [place] [address], [address]. tel:[phone] OFFICE VISIT, EST TELEMEDICINE [facility], [address] [place] [address], [id number] , [place] tel:[phone] Telehealth Widespread pain (chief complaint) Chronic pain syndromePain in right kneePostlamine ctomy syndrome, not elsewhere classifiedLong term (current) use of opiate analgesicMyalg ia, other siteRadiculopa thy, lumbar region 0 Mayra Rapp. [address] [place] [address] [address], [place], [place], [id number] , [place]. tel:[phone] Referring Provider: Too Del Cid, [address] [place] [address], [address]. tel:[phone] OFFICE VISIT, EST [facility], [address] [place] [address], [id number] , [place] tel: [phone] Telehealth Widespread pain (chief complaint) Chronic pain syndromePain in right kneePostlamine ctomy syndrome, not elsewhere classifiedLong term (current) use of opiate analgesic Amos-0 2- 0 Nunez Dionte. [address] [place] [address] [address], [place], [place], [id number] , [place]. tel:[phone] Referring Provider: Too Del Cid, [address] [place] [address], [address]. tel:[phone] OFFICE VISIT, [facility], [address] [place] [address], [id number] , [place] tel: [phone] Telehealth Widespread pain (chief complaint) Postlaminectom y syndrome, not elsewhere classifiedPain in right kneeChronic pain syndromeLong term (current) use of opiate analgesic September- 0 Nunez Dionte. [address] [place] [address] [address], [place], [place], [id number] , [place]. tel: [phone] Referring Provider: Too Del Cid, [address] [place] [address], [address]. tel:[phone] OFFICE VISIT, [facility], [address] [place] [address], [id number] , [place] tel: [phone] Telehealth Widespread pain (chief complaint) Postlaminectom y syndrome, not elsewhere classifiedPain in right kneeChronic pain syndromeLong term (current) use of opiate analgesicPain in left hip September-0 0 Nunez Dionte. [address] [place] [address] [address], [place], [place], [id number] , [place]. tel: [phone] OFFICE VISIT, EST [facility], [address] [place] [address], [id number] , [place] tel:[phone] Telehealth Widespread pain (chief complaint) Postlaminectom y syndrome, not elsewhere classifiedPain in right kneeChronic pain syndromeLong term (current) use of opiate analgesic Apr-2 0-202 0 Mayra Rapp. [address] [facility] [address], [place], [place], [id number] , [place]. tel:[phone] Referring Provider: Too Del Cid, [address] [place] [address], [address]. tel:[phone] OFFICE VISIT, EST TELEMEDICINE [facility], [address] [place] [address], [id number] , [place] tel:[phone] Telehealth Widespread pain (chief complaint) Postlaminectom y syndrome, not elsewhere classifiedPain in right kneeChronic pain syndromeLong term (current) use of opiate analgesic Apr-0 2-202 0 Mayra Rapp. [address] [place] [address] [address], [place], [place], [id number] , [place]. tel:[phone] Referring Provider: Too Del Cid, [address] [place] [address], [address]. tel:[phone] OFFICE VISIT, EST TELEMEDICINE [facility], [address] [place] [address], [id number] , [place] tel:[phone] [facility] Widespread pain (chief complaint) [facility] (current) use of opiate analgesicPostl aminectomy syndrome, not elsewhere classifiedPain in right kneeChronic pain syndrome 8 0 Mayra Rapp. [address] [place] [address] [address], [place], [place], [id number] , [place]. tel:[phone] Referring Provider: Too Del Cid, [address] [place] [address], [address]. tel:[phone] [facility], [address] [place] [address], [id number] , [place] [phone] [facility] [place] No Information Jul- 0- 0 Mayra Rapp. [address] [place] [address] [address], [facility], [place], [id number] , [place]. tel:[phone] OFFICE/OUTPAT IENT VISIT, [facility], [address] [place], [place], [id number] , [place] tel:[phone] [facility] Widespread pain (chief complaint) Chronic pain syndromePostla minectomy syndrome, not elsewhere classifiedPain in right kneeLong term (current) use of opiate analgesic Jul-0 - 0 Mayra Rapp. 1455 [facility] [address], [place], [place], [id number] , [place]. tel:[phone] Referring Provider: Too Del Cid, [address] [place], [address]. tel:[phone] OFFICE/OUTPAT IENT VISIT, [facility], [address], [place], [id number] , [place] tel:[phone] [facility] Widespread pain (chief complaint) Chronic pain syndromePostla minectomy syndrome, not elsewhere classifiedMyal isabel, other sitePain in right kneeEncounter for therapeutic drug level monitoringLong term (current) use of opiate analgesic 2 0 Nunez Dionte. 14[address] [facility] [address], [place], [place], [id number] , [place]. tel:[phone] Referring Provider: Caleb Ontiveros [facility] [address] [facility], [place], [address]. tel:[phone] Family History Family Member Type Diagnosis Age At Onset No Information Payers Payer name Insurance type Covered libertarian ID Authoriza tiada(s) [employer] MA [facility] Replacement [id number] Social History Type Description Quantity Date Captured [...] Goal AST (SGOT). Due on due Goal ACID ADJUSTER Scanned. Due on due Goal SOA INTEGRATION DEVELOPER Paperwork. Due on due Goal Creatinine. Due [...] due Goal CT-Colonography. Due on due Goal SOA INTEGRATION DEVELOPER Paperwork. Due on due Goal OARS. Due on due Goal ACID ADJUSTER Scanned. Due on due Goal ALT (SGPT). [...] due Goal OARS. Due on due Goal SOA INTEGRATION DEVELOPER Paperwork. Due on due Goal Creatinine. Due on due Goal UDT. Due on due Goal Order Annual PT. Due on due Goal AST (SGOT). Due on due Goal ACID ADJUSTER Scanned. Due on due Goal Unhealthy drug [...] due Goal OARS. Due on due Goal ACID ADJUSTER Scanned. Due on due Goal Order Annual PT. Due on due Goal AST (SGOT). Due on due Goal ALT (SGPT). Due on due Goal SOA INTEGRATION DEVELOPER Paperwork. Due on due Goal UDT. Due [...] Goal Lipid panel. Due on due Goal ACID ADJUSTER Scanned. Due on due Goal Zoster vaccine ( ). Due on due Goal Creatinine. Due on due Goal OARS. Due on due Goal AST (SGOT). Due on due Goal Order Annual PT. Due on due Goal UDT. Due on due Goal SOA INTEGRATION DEVELOPER Paperwork. Due on due Goal ALT (SGPT). [...] due Goal Creatinine. Due on due Goal SOA INTEGRATION DEVELOPER Paperwork. Due on due Goal ALT (SGPT). Due on due Goal Order Annual PT. Due on due Goal ACID ADJUSTER Scanned. Due on due Goal OARS. Due [...] due Goal Creatinine. Due on due Goal ACID ADJUSTER Scanned. Due on due Goal SOA INTEGRATION DEVELOPER Paperwork. Due on due Goal OARS. Due [...] due Goal UDT. Due on due Goal ACID ADJUSTER Scanned. Due on due Goal Creatinine. Due on due Goal ALT (SGPT). Due on due Goal Order Annual PT. Due on due Goal SOA INTEGRATION DEVELOPER Paperwork. Due on due Goal OARS. Due [...] due Goal Creatinine. Due on due Goal ACID ADJUSTER Scanned. Due on due Goal OARS. Due on due Goal AST (SGOT). Due on due Goal ALT (SGPT). Due on due Goal Order Annual PT. Due on due Goal SOA INTEGRATION DEVELOPER Paperwork. Due on due Goal Unhealthy drug [...] Allergy L ist. Due on due Goal ACID ADJUSTER Scanned. Due on due Goal ALT (SGPT). Due on due Goal UDT. Due on due Goal AST (SGOT). Due on due Goal SOA INTEGRATION DEVELOPER Paperwork. Due on due Goal Order Annual [...] Order Annual PT. Due on due Goal SOA INTEGRATION DEVELOPER Paperwork. Due on due Goal AST (SGOT). Due on due Goal ALT (SGPT). Due on due Goal UDT. Due on due Goal OARS. Due on due Goal ACID ADJUSTER Scanned. Due on due Goal Creatinine. Due [...] u se screening. Due on due Goal ACID ADJUSTER Scanned. Due on due Goal SOA INTEGRATION DEVELOPER Paperwork. Due on due Goal ALT (SGPT). [...] Goal Tobacco Use. Due on due Goal SOA INTEGRATION DEVELOPER Paperwork. Due on due Goal Creatinine. Due on due Goal AST (SGOT). Due on due Goal OARS. Due on due Goal ALT (SGPT). Due on due Goal UDT. Due on due Goal ACID ADJUSTER Scanned. Due on due Goal Order Annual [...] Goal Tobacco Use. Due on due Goal SOA INTEGRATION DEVELOPER Paperwork. Due on due Goal UDT. Due on due Goal ACID ADJUSTER Scanned. Due on due Goal Order Annual [...] due Goal UDT. Due on due Goal SOA INTEGRATION DEVELOPER Paperwork. Due on due Goal OARS. Due on due Goal Creatinine. Due on due Goal ACID ADJUSTER Scanned. Due on due Goal Order Annual [...] Order Annual PT. Due on due Goal ACID ADJUSTER Scanned. Due on due Goal UDT. Due on due Goal AST (SGOT). Due on due Goal Creatinine. Due on due Goal OARS. Due on due Goal SOA INTEGRATION DEVELOPER Paperwork. Due on due Goal ALT (SGPT). [...] Goal ALT (SGPT). Due on due Goal ACID ADJUSTER Scanned. Due on due Goal Creatinine. Due on due Goal SOA INTEGRATION DEVELOPER Paperwork. Due on due Goal UDT. Due [...] C scre ening. Due on due Goal ACID ADJUSTER Scanned. Due on due Goal OARS. Due on due Goal Creatinine. Due on due Goal SOA INTEGRATION DEVELOPER Paperwork. Due on due Goal ALT (SGPT). [...] Order Annual PT. Due on due Goal SOA INTEGRATION DEVELOPER Paperwork. Due on due Goal AST (SGOT). Due on due Goal ACID ADJUSTER Scanned. Due on due Goal ALT (SGPT). [...] Order Annual PT. Due on due Goal SOA INTEGRATION DEVELOPER Paperwork. Due on due Goal AST (SGOT). Due on due Goal ACID ADJUSTER Scanned. Due on due Goal ALT (SGPT). [...] Order Annual PT. Due on due Goal SOA INTEGRATION DEVELOPER Paperwork. Due on due Goal AST (SGOT). Due on due Goal ACID ADJUSTER Scanned. Due on due Goal ALT (SGPT). [...] Order Annual PT. Due on due Goal SOA INTEGRATION DEVELOPER Paperwork. Due on due Goal AST (SGOT). Due on due Goal ACID ADJUSTER Scanned. Due on due Goal ALT (SGPT). [...] Order Annual PT. Due on due Goal SOA INTEGRATION DEVELOPER Paperwork. Due on due Goal AST (SGOT). Due on due Goal ACID ADJUSTER Scanned. Due on due Goal ALT (SGPT). [...] Order Annual PT. Due on due Goal SOA INTEGRATION DEVELOPER Paperwork. Due on due Goal AST (SGOT). Due on due Goal ACID ADJUSTER Scanned. Due on due Goal ALT (SGPT). [...] Order Annual PT. Due on due Goal SOA INTEGRATION DEVELOPER Paperwork. Due on due Goal AST (SGOT). Due on due Goal ACID ADJUSTER Scanned. Due on due Goal ALT (SGPT). [...] Order Annual PT. Due on due Goal SOA INTEGRATION DEVELOPER Paperwork. Due on due Goal AST (SGOT). Due on due Goal ACID ADJUSTER Scanned. Due on due Goal ALT (SGPT). [...] Order Annual PT. Due on due Goal SOA INTEGRATION DEVELOPER Paperwork. Due on due Goal AST (SGOT). Due on due Goal ACID ADJUSTER Scanned. Due on due Goal ALT (SGPT). [...] Order Annual PT. Due on due Goal SOA INTEGRATION DEVELOPER Paperwork. Due on due Goal AST (SGOT). Due on due Goal ACID ADJUSTER Scanned. Due on due Goal ALT (SGPT). [...] Radiculopathy, lumbar region) ordered Referral Referred To: [facility] [address] [place], [phone] Ordered: Referrals: Family Medicine. [facility] ordered Referral Ordered: X-RAY EXAM OF HIPS LT hip ordered Referral Ordered: Azael Regan -[facility] : Family Medicine (related to Postlaminectomy syndrome, not elsewhere classified) ordered Referral Referred To: Azael Regan [facility]
[address] [place], [phone] Ordered: Referrals: Allopathic & Osteopathic Physicians : [...] assessment:Difficulty reaching, lifting, carrying, pushing, pulling, and culinary director is hopeful that the SCS device will [...] discomfort. Patient was meeting with Jose from [employer] today and expressed her frustration with charging. [...] TKA on 07/09/[address] Camara from [facility]. ACID ADJUSTER was reviewed and shows pt was rx'ed 2mg Dilaudid max 7/day for post op pain. She was rx'ed #49tabs on 08/23/21, #49tabs on 08/19/21 and #49 tabs on 08/08/21. Her chronic dose at [facility] is #5tabs a day, patient [...] rescheduled for 07/09/[address] Camara from [facility]. Surgeon will manage post-op pain. Lower [...] for [address] Lino or from [facility]. It was canceled due to no hospital beds available with [facility].Expresses her ongoing frustration regarding her lumbar [...] scheduled R TKA with Dr. Camara through [facility]. Discussed post-op pain management. Also continues [...] order. She looks forward to reprogramming with [facility] today as she has had questions about [...] Pain has been worse. She went to [facility] two weeks ago with atrial fibrillation. She completed work-up and was put on warfarin. She met with her orthopedist at [facility] regarding her R knee pain. Orthopedist recommended [...] month due to visiting her daughter in [place]. She realized she can not walk long distances with her walker. Had a injection scheduled with [facility] but [employer] service could not provide her the ride from [place]. She is excited about the recently approved [...] trial.She had a recent lumbar MRI with [facility] and per patient the imaging showed herniation and disc slippage at multiple levels. She said [facility] recommend a injection. With previous injections, she explains having a reaction to the procedure. She scheduled the injection on 12/[address] estrella at [facility].Reports current medication regimen provides at least [...] upcoming appt. with a back surgeon through [facility] next week to be evaluated. Reports [...] over.Notes that she followed up with her diffuser operator yesterday. States that she has arrythmia although [...] Rx Meds and chiropractic. Widespread pain (comments) Branede presents for follow up and medication management. [...] [employer]onic SCS trial. Reports she presented to [facility] and dropped off her psych [...] and she is also unable to attend neurocritical care physician which she significantly benefits from. She still [...] Medications are managed by [facility] facility. Denies side effects.Patient is not [...] been recommended for possible R TKA at [facility], but no date has been scheduled. States her pain causes her lots of anxiety because she has tried many treatments without significant benefit. She is currently enrolled in PT at [facility] in [facility]. She also regularly attends the [...] and other recommended therapies and would like [facility] to assume management of pain care. Functional Status Date Functional Assessmen t No Information Instructions Date Instruction Additional Infor mation No Information Assessments Type Assessment Date assessment Pain in right knee impression S/p right TKA on 12/[address] Camara from [facility]. Has been participating in PT with good benefit. Pain has been worse since [facility] assessment Pain in left ankle and joints of left foot impression Worsening pain in th e left ankle and is considering an ankle fusion assessment Radiculopathy, lumbar region Jul impression Lower back pain with radiation into her BLE, continues to worsen since [facility] assessment Myalgia, other site impression TPIs in the past wit hout benefit. PO muscle relaxers provide moderate relief assessment Postlaminectomy syndrome, not el sewhere classified impression Hx of L4-S1 fusion. She has an SCS implant but may be interested in an explant assessment [facility] (current) use of opiat e analgesic impression The medication relie ves at least 60% of the pain, does not cause significant side effects, increases the patient's daily activity level. Medication managed by facility.Most of today's visit was spent discussing the patient's recent discharge from the clinic d/t her inappropriate behavior and language used toward staff. Patient expresses frustrations with termination. SOA INTEGRATION DEVELOPER terminated.Most recent UDT results reviewed and appropriate. Not appropriate to continue opioid therapy d/t issues with inappropriate behavior. Current MME 30 Mental Status Date Cognitive Assessment Orientation - [place] ed to time, place, person, situation. Patient Care Teams Name Effective Dates (start - stop) Status Members No Information
== END 2023-04-08 10:11 | disposition home or self-care (01) ==
LOC: NFLDREF 10:11
PROVIDERS: PCP Internal Medicine; Visit Provider Internal Medicine
DX: I48.91 Unspecified atrial fibrillation (principal)
CPT/HCPCS: 80162

== ENCOUNTER 2023-05-12 10:42 | Outpatient (CLI) | payer OTHER, SELFPAY | END 2023-05-12 10:43 | disposition home or self-care (01) | PROVIDERS: PCP Internal Medicine; Visit Provider Internal Medicine | DX: R53.83 Other fatigue (principal); I48.91 Unspecified atrial fibrillation; E11.9 Type 2 diabetes mellitus without complications; Z79.01 Long term (current) use of anticoagulants | CPT/HCPCS: 82043; 82570; 85610 ==

== ENCOUNTER 2023-05-21 23:29 | Outpatient (CLI) | payer OTHER, SELFPAY ==
--- OUTSIDE RECORDS SUMMARY | 2023-05-23 06:53 | XMS_ITS | Continuity of Care Document ---
Author Name Unknown Organization [facility] Address [address] [place] [address] Phone Care Team Providers Care Trauma Director Name Role Phone Odalys BOLES, Homar Unavailable [...] C, [address], [place], [place], [id number], [place] tel:[phone] [facility] No Information 8 Odalys Graf. [facility] [place], [address] [place] [address] [address], [place], [place], [id number] , [place]. tel:[phone] [facility], [address], [place], [id number], [place] tel:[phone] [facility] No Information 8 Odalys Graf. [facility] [place], [address] [place] [address] [address], [place], [address] , [place]. tel:[phone] [facility], [address], [place], [id number], [place] tel:[phone] [facility] No Information 8 Rodrick Pop. [facility] [place], [address] [place] [address] [address], [place], [place], [address] , [place]. tel:[phone] Referring Provider: Homar Morrow, [facility] [place] [address] [place] [address] [address], [place], [address] . tel:[phone] [facility], [address], [place], [id number], [place] tel:[phone] [facility] No Information 6 8 Odalys Graf. [facility], [address], [place], [address] , [place]. [phone] Referring Provider: Homar Morrow, [facility] [address], [place], [address] . tel:[phone] Office/Outpat ient Visit,Est, Mod [facility], [address], [place], [id number], [place] tel:[phone] [facility] Spinal stenosis, lumbar region 5 7 Odalys Graf. [facility] [place], [address], [place], [address] , [place]. [phone] Referring Provider: Homar Morrow, [facility] [address], [place], [address] . tel:[phone] [facility], [address], [place], [id number], [place] tel:[phone] [facility] Spinal stenosis, lumbar region 0-201 6 Odalys Graf. [facility] [place], [address], [place], [address] , [place]. [phone] Referring Provider: Homar Morrow, [facility] [address], [place], [address] . tel:[phone] [facility], [address], [place], [id number], [place] tel:[phone] [facility] Arthrodesis status 1-201 6 Odalys Graf. [facility] [place], [address], [place], [address] , [place]. [phone] [facility], [address], [place], [id number], [place] tel:[phone] [facility] No Information Sep-2 6 Odalys Rowlandin. [facility], [address], [place], [id number] , [place]. tel:[phone] Referring Provider: Homar Morrow, [facility] [address], [place], [address] . tel:[phone] Family History Family Member Type Diagnosis Age At Onset No Information Payers Payer name Insurance type Covered democrat ID Authoreneida aaron(s) Medicare [id number] Social History Type Description Quantity Date Captured [...]
--- OUTSIDE RECORDS SUMMARY | 2023-05-23 06:53 | XMS_ITS | Continuity of Care Document ---
Author Name Unknown Organization [facility] Address [address] [place] [address] Care Team Providers Care Healthcare Or Medical Name Role Phone Simba Lowry CRNA Unavailable Unavailable Procedures Procedure Date ANESTH, HEAD/NECK/PTRUNK ANESTH PERC IMG TX SP PROC Advance Directives Directive Yes / No Effective Date File Name No Information Encounters Encounter Description Practice Location Reason(s) For Visit Diagnoses Date Provider Providers Copied on Encounter [facility], [address] [place] [address], [id number], [facility] No Information Alen Cottrell. [address] [place] [address], [id number], . tel:[phone] Referring Provider: Michelle Cummings, [address] [place] [address], [address] . tel:[phone] [facility], [address] [place] [address], [id number], [facility] No Information Asad Ramirez. [address], [place], [place], [id number], . tel:[phone] Referring Provider: Too Del Cid, [address] [place], [address] . tel:[phone] Family History Family Member Type Diagnosis Age [...]
--- OUTSIDE RECORDS SUMMARY | 2023-05-23 06:53 | XMS_ITS | Continuity of Care Document ---
Author Name Unknown Organization [facility] Address [address] [facility] [place] [address] Phone Care Team Providers Care Industrial Design Engineer Name Role Phone Echo BOLES MD, Montserrat Unavailable Unavailable Allergies, Adverse Reactions, Alerts Substance Reaction Status Criticality iohexol Rash Active No Information TRAMADOL HCL Active No Information TRAMADOL HCL Active No Information sulfamethoxazole Active No Informat ion penicillin G Active No Information NSAIDS (Non-Steroidal Anti-Inflammatory Drug) Active No Information naproxen Active No Information cephalexin Active No Information aspirin Active No Information WARNIN allergy(ies) could not be collected because the type is not supported. Please contact the source practice for further details. Medications Medication Instructions Dosage Effective Dates (start - stop) Status Comments PROVENTIL HFA (unknown strength) 0.083% inhale 3mL via nebulizer every 4 hour and as needed for shortness of breath. Not Available - Active Adderall 20 mg tablet take 1 tablet by oral route every 2 days before breakfast 20 MG - Active Anusol-HC 2.5 % rectal cream apply by topical route 2 times every day to the affected area(s) - Active Ventolin HFA 90 mcg/actuation aerosol inhaler inhale 2 puff by inhalation route every 4 - 6 hours as needed - Active atenolol 100 mg tablet take 1 tablet by oral route every day 100 MG - Active Blood Glucose Test strips - Active cetirizine 10 mg tablet take 1 tablet by oral route every day 10 MG - Active CLONAZEPAM (unknown strength) take 1 tablet by oral route every day Not Available - Active Comp-Air XLT Compressor for Nebulizer - Active Physicians EZ Use B-12 1,000 mcg/mL injection kit inject 1 milliliter by intramuscular route every month 1000 MCG - Active Benadryl 25 mg capsule take 2 capsule by oral route every 4 - 6 hours as needed 50 MG - Active Epifoam 1 %-1 % topical apply by topical route 3 times every day to the affected area(s) as needed 0.00 - Active ergocalciferol (vitamin D2) 50,000 unit capsule take 1 capsule by oral route every week - Active esterified estrogens-methyltesto sterone 1.25 mg-2.5 mg tablet take 1 tablet by oral route for 21 consecutive days, followed by 7 days off 1.00 tablet - Active Flovent Diskus 50 mcg/actuation powder for inhalation inhale 1 puff by inhalation route 2 times every day 50 MCG - Active Lasix 40 mg tablet take 1 tablet by oral route every day 40 MG - Active hydrocortisone 2.5 % rectal cream apply by topical route 2 times every day to the affected area(s) - Active Imitrex 50 mg tablet take 1 tablet by oral route after onset of migraine; may repeat after 2 hours if headache returns,not to exceed 200mg in 24hrs 50 MG - Active ketoconazole 2 % shampoo apply by topical route every day to the affected area(s), lather, leave in place for 5 minutes, and then rinse off with water 0.00 - Active lancets - Active lisinopril 5 mg tablet take 1 tablet by oral route every day 5 MG - Active Singulair 10 mg tablet take 1 tablet by oral route every day in the evening 10 MG - Active TAB A RAIZA 18 mg-0.4 mg tablet - Active Nasonex 50 mcg/actuation Boley spray 2 spray by intranasal route every day in each nostril - Active Micro Air misc - Active Patanol 0.1 % eye drops instill 1 drop by ophthalmic route 2 times every day into affected eye(s) at an interval of 6 to 8 hours - Active Miralax 17 gram/dose oral powder take (17G) by oral route every day mixed with 8 oz. water, juice, soda, coffee or tea - Active Prilosec 20 mg capsule,delayed release take 2 capsule by oral route every day 30 minutes to 1 hour before a meal 40 MG - Active Risperdal 1 mg tablet take 1 tablet by oral route 2 times every day 1 MG - Active Ambien CR 6.25 mg tablet,extended release take 1 tablet by oral route every day at bedtime 6.25 MG - Active TOPAMAX (unknown strength) take 1 Tablet by oral route at bed time Not Available - Active DULERA (unknown strength) inhale 2 puff by inhalation route 2 times every day in the morning and evening Not Available - Active Procedures Procedure Date RF Lumbar/Sacral Single Level 5 RF Lumbar/Sacral Addt'l Level 5 RF Lumbar/Sacral Addt'l Level 5 RF Lumbar/Sacral Single Level 5 RF Lumbar/Sacral Addtl Level RF Lumbar/Sacral Addtl Level Mod cs by same phys, 5 yrs + Inj Anes Facet Jt; Lumb/sac-3rd Level Oc Inj Anes Facet Jt; Lumb/sac-1st Level Oc Inj Anes Facet Jt; Lumb/sac-2nd Level Oc IV Cons Sed First 30M Inj Anes Facet Jt; Lumb/sac-1st Level Oc Inj Anes Facet Jt; Lumb/sac-2nd Level Oc Inj Anes Facet Jt; Lumb/sac-2nd Level Oc Inj Anes Facet Jt; Lumb/sac-1st Level Oc Inj Anes Facet Jt; Lumb/sac-3rd Level Oc Inj Anes Facet Jt; Lumb/sac-3rd Level Oc Inj Anes Facet Jt; Lumb/sac-1st Level Oc Inj Anes Facet Jt; Lumb/sac-2nd Level Oc Inj Anes Facet Jt; Lumb/sac-3rd Level Oc Mod cs by same phys, 5 yrs + Phys Therap Eval Self-care /home management training Inj Anes Facet Jt; Lumb/sac-1st Level Se Inj Anes Facet Jt; Lumb/sac-3rd Level Se Inj Anes Facet Jt; Lumb/sac-2nd Level Se IV Cons Sed First 30M Inj Anes Facet Jt; Lumb/sac-1st Level Se Inj Anes Facet Jt; Lumb/sac-1st Level Se Inj Anes Facet Jt; Lumb/sac-2nd Level Se Inj Anes Facet Jt; Lumb/sac-2nd Level Se Inj Anes Facet Jt; Lumb/sac-3rd Level Se Inj Anes Facet Jt; Lumb/sac-3rd Level Se Inj Not Lytic-epidur; Cerv/tho 15 Epid/SAB Cerv/Thor Inj Not Lytic-epidur; Lumb/sac 15 Epid/SAB Lumbosacral Mod cs by same phys, 5 yrs + New Pt Eval 45 Min Pain Assessment And Follow Up Plan Docum ented Advance Directives Directive Yes / No Effective Date File Name No Information Encounters Encounter Description Practice Location Reason(s) For Visit Diagnoses Date Provider Providers Copied on Encounter [facility], [address] [facility], [place], [address], [place] tel:[phone] [facility] [place] Other spondylosis, lumbosacral regionOther spondylosis, lumbar region -201 5 Echo Mariano. [address] [place], [address] [facility], [place], [address]. tel:[phone] Referring Provider: Montserrat Dodge MD, [address] [place] [address] [facility], [place], [address]. tel:[phone] [facility], [address], [place], [place], [id number], [place] tel:[phone] [facility] [place] No Information 5 Echo Mariano. [address] [place], [address] [facility], [place], [address]. tel:[phone] Referring Provider: Azael Regan DO, [place], [address]. tel:[phone] [facility], [address], [place], [address], [place] tel:[phone] [facility] [place] Spondylosis without myelopathy or radiculopathy , lumbosacral regionSpondyl osis without myelopathy or radiculopathy , lumbar region 5 Echo Mariano. [address] [place], [address] [facility], [place], [address]. tel:[phone] Referring Provider: Montserrat Dodge MD, [address] [place] [address] [facility], [place], [address]. tel:[phone] [facility], [address], [place], [place], [id number], [place] tel:[phone] [facility] No Information 5 Echo Mariano. [address] [place], [address] [facility], [place], [address]. tel:[phone] Referring Provider: Maureen Olmedo [place], [place], [address]. tel:[phone] [facility], [address], [place], [place], [id number], [place] tel:[phone] [facility] No Information Jan- 5 Brigida Hays. [address], [address], [place], [place], [id number], [place]. tel:[phone] Referring Provider: Azael Regan DO, [address], [place], [address]. tel:[phone] [facility], [address], [place], [address], [place] tel:[phone] [facility] [place] No Information 5 Echo Mariano. [address] [place], [address] [facility], [place], [address]. tel:[phone] Referring Provider: Montserrat Dodge MD, [address] [place] [address] [facility], [place], [address]. tel:[phone] [facility], [address], [place], [address], [place] tel:[phone] [facility] [place] No Information Dec- 5 Echo Mariano. [address] [place], [facility], [place], [address]. tel:[phone] Referring Provider: Montserrat Dodge MD, [address] [place] [address] [facility], [place], [address]. tel:[phone] [facility], [address], [place], [place], [id number], [place] tel:[phone] [facility] No Information 5 Echo Mariano. [address] [place], [address] [facility], [place], [address]. tel:[phone] Referring Provider: Azael Regan DO, [place], [address]. tel:[phone] [facility], [address], [place], [address], [place] tel:[phone] [facility] No Information 5 Echo Mariano. [address] [place], [address] [facility], [place], [address]. tel:[phone] Referring Provider: Montserrat Dodge MD, [address] [place] [address] [facility], [place], [address]. tel:[phone] [facility], [address], [place], [place], [id number], [place] tel:[phone] [facility] [place] No Information 5 Echo Mariano. [address] [place], [address] [facility], [place], [address]. tel:[phone] Referring Provider: Maureen [place]medo DO, [place], [address]. tel:[phone] New Pt Eval 45 Min [facility], [facility], [address], [place], [place], [id number], [place] tel:[phone] [facility] No Information 5 Echo Mariano. [address] [place], [address] [facility], [place], [address]. tel:[phone] Referring Provider: Maureen [place]medo DO, [place], [address]. tel:[phone] [facility], [address] [facility] [address], [place], [place], [id number], [place] tel:[phone] [facility] No Information 4 Shravan Arguello. [address] [facility] [place], [address], [place]. Family History Family Member Type Diagnosis Age At Onset N/A Problem (finding) No Significant Family H istory Payers Payer name Insurance type Covered alliance party ID Authoreneida aaron(s) [employer] Medicaid O [id number] Social History Type Description Quantity Date Captured Comments Alcohol Use Details 1 drink occasionally Caffeine Use Details coffee Tobacco Use Status Smoking Status Light tobacco smoker Sex Female Vital Signs Date / Time: Height Weight BMI Pulse Rate Blood Pressure Temperature Respiratory Rate Body Surface Area Head Circumference Head Circ. Percentile Wt./Jim. Percentile BMI percentile Pulse Ox Inhaled Ox 63.00 in 212.00 lbs 37.5 5 kg/m eter (2) 64 /min 119/85 mm[Hg] 97.60 F 2.07 meter(2) 100 % 10:56 AM 67 /min 130/90 mm[Hg] 100 % 10:24 AM 59 /min 145/87 mm[Hg] 99 % 10:29 AM 58 /min 122/83 mm[Hg] 94 % 10:34 AM 64 /min 117/80 mm[Hg] 97 % 10:39 AM 62 /min 152/98 mm[Hg] 100 % 10:44 AM 60 /min 131/87 mm[Hg] 99 % 11:00 AM 61 /min 130/90 mm[Hg] 97 % 11:04 AM 61 /min 116/86 mm[Hg] 98 % 11:05 AM 61 /min 114/82 mm[Hg] 100 % Chief Complaint And Reason For Visit No Information Reason For Referral Reason For Referral No Information History Of Present Illness Encounter Date Complaint History Of Prese nt Illness No Information Functional Status Date Functional Assessmen t Pain Score 01/08 Pain Score 06/10 Pain Score 06/10 Pain Score 07/11 Pain Score 06/10 Instructions Date Instruction Additional Infor mation No Information Assessments Type Assessment Date No Information Patient Care Teams Name Effective Dates (start - stop) Status Members No Information
--- OUTSIDE RECORDS SUMMARY | 2023-05-23 06:54 | XMS_ITS | Continuity of Care Document ---
Author Name Unknown Organization [facility] Address [address] [place] [address] Care Team Providers Care Media Senior Recruiter Name Role Phone [facility] Unavailable Unav ailable Procedures Procedure Date [...] Diagnoses Date Provider Providers Copied on Encounter [facility], [address] [place] [address], [id number], [facility] No Information [facility]. [address] [facility] [place], [place], [id number], [place]. tel:[phone] Referring Provider: Michelle Cummings, [address] [place], [address]. tel:[phone] [facility], [address] [place], [place], [id number], [facility] No Information [facility]. [address] [facility] [place], [place], [id number], [place]. tel:[phone] Referring Provider: Too Del Cid, [address] [place], [address]. tel:[phone] [facility], [address] [place], [place], [id number], [place] [facility] No Information [facility]. [address] [place], [place], [id number], . tel:[phone] Referring Provider: Michelle Cummings, [address] [place], [address]. tel:[phone] Family History Family Member Type Diagnosis Age [...]
--- OUTSIDE RECORDS SUMMARY | 2023-05-23 06:54 | XMS_ITS | Continuity of Care Document ---
Author Name Unknown Organization [facility] rajiv Address [address] [place] [address] Phone Care Team Providers Care Nurse Office Name Role Phone Dionte Granados Unavailable Unavailable [...] eval q3mo opiod tx [facility] Post Op [place] No Charge For Visit Per Prov IMPLANT [...] OFFICE VISIT, EST TELEMEDICINE 20 OFFICE VISIT, [facility] TELEMEDICINE 20 Foll-up eval q3mo opiod tx OFFICE/OUTPATIENT VISIT, EST Drug Urine Toxology With Chromatography SCS Trial Procedure Ordered INJ TRIGGER POINT, 1/2 MUSCL OFFICE/OUTPATIENT VISIT, NEW Advance Directives Directive Yes / No Effective Date File Name No Information Encounters Encounter Description Practice Location Reason(s) For Visit Diagnoses Date Provider Providers Copied on Encounter OFFICE VISIT, [facility], [address], [place], [id number] , [place] tel:[phone] [facility] [place] Widespread pain (chief complaint) Pain in right kneePain in left ankle and joints of left footRadiculopa thy, lumbar regionMyalgia, other sitePostlamine ctomy syndrome, not elsewhere classifiedLong term (current) use of opiate analgesic 3 Mayra Rapp. [address] [facility] [address], [place], [place], [id number] , [place]. tel:[phone] anticoagulant prescriber: Aleksey Smith [address], [address]. tel:[phone] Provider: Too Del Cid, [address] [place], [address]. tel:[phone] OFFICE VISIT, [facility], [address], [place], [id number] , [place] tel:[phone] [facility] Widespread pain (chief complaint) Postlaminectom y syndrome, not elsewhere classifiedRadi culopathy, lumbar regionMyalgia, other sitePain in left ankle and joints of left footPain in right kneeLong term (current) use of opiate analgesic 3 Shay Morales. [address], [place], [id number] , [place]. tel:[phone] anticoagulant prescriber: Aleksey Smith [address] [place], [address]. tel:[phone] [facility], [address] [place] [address], [id number] , [place] tel:[phone] [facility] [place] pain (chief complaint) Postlaminectom y syndrome, not elsewhere classified 2 Indu Dalal. [address] [place], [place], [id number] , [place]. tel:[phone] Psych Dx Eval [facility], [address] [place] [address], [id number] , [place] tel:[phone] Telehealth Pain disorder with related psychological factorsPost-tr aumatic stress disorder, unspecified 2 Tess Cristiano Peg. [address] [place] [address], [id number] , [place]. tel:[phone] Referring Provider: Too Del Cid, [address] [place] [address], [address]. tel:[phone] Psych Dx Eval [facility], [address] [place] [address], [id number] , [place] tel:[phone] Telehealth Pain disorder with related psychological factorsAnxiety disorder 2 Tess Cristiano Peg. [address] [place] [address], [id number] , [place]. tel:[phone] OFFICE/OUTPAT IENT VISIT, [facility], [address] [place] [address], [id number] , [place] tel:[phone] [facility] [place] Widespread pain (chief complaint) Pain in right hipPain in right kneePain in left ankle and joints of left footRadiculopa thy, lumbar regionPostlami nectomy syndrome, not elsewhere classifiedLong term (current) use of opiate analgesicMyalg ia, other site 2 Heriberto Gage. [address] [place] [address], [id number] , [place]. tel:[phone] anticoagulant prescriber: Aleksey Smith, [address], [address]. tel:[phone] Provider: Too Del Cid, [address] [place] [address], [address]. tel:[phone] OFFICE VISIT, EST TELEMEDICINE [facility], [address] [place] [address], [id number] , [place] tel:[phone] [facility] Back Pain (chief complaint) Pain in right kneePain in left ankle and joints of left footRadiculopa thy, lumbar regionMyalgia, other sitePostlamine ctomy syndrome, not elsewhere classifiedLong term (current) use of opiate analgesicPain in right hip 2 Mayra Rapp. [address] [place] [address] [address], [place], [place], [id number] , [place]. tel:[phone] anticoagulant prescriber: Aleksey Smith, [address], [address]. tel:[phone] OFFICE VISIT, EST TELEMEDICINE [facility], [address] [place] [address], [id number] , [place] tel:[phone] [facility] Back Pain (chief complaint) Pain in right kneePain in left ankle and joints of left footRadiculopa thy, lumbar regionMyalgia, other sitePostlamine ctomy syndrome, not elsewhere classifiedLong term (current) use of opiate analgesic 2 Nunez Dionte. [address] [place] [address] [address], [place], [place], [id number] , [place]. tel:[phone] anticoagulant prescriber: Aleksey Smith [address], [address]. tel:[phone] OFFICE VISIT, EST TELEMEDICINE [facility], [address] [place] [address], [id number] , [place] tel:[phone] [facility] Back Pain (chief complaint) Pain in right kneePain in left ankle and joints of left footRadiculopa thy, lumbar regionMyalgia, other sitePostlamine ctomy syndrome, not elsewhere classifiedLong term (current) use of opiate analgesic 2 Mayra Rapp. [address] [place] [address] [address], [place], [id number] , [place]. tel:[phone] Referring Provider: Too Del Cid, [address] [place] [address], [address]. tel:[phone] OFFICE/OUTPAT IENT VISIT, [facility], [address] [place] [address], [id number] , [place] tel:[phone] [facility] Back Pain (chief complaint) Pain in right kneePain in right ankle and joints of right footPain in left ankle and joints of left footRadiculopa thy, lumbar regionMyalgia, other sitePostlamine ctomy syndrome, not elsewhere classifiedLong term (current) use of opiate analgesic 2 Mayra Rapp. [address] [place] [address] [address], [place], [id number] , [place]. [phone] Referring Provider: Too Del Cid, [address] [place] [address], [address]. tel:[phone] [facility], [address] [place] [address], [id number] , [place] tel:[phone] [facility] No Information 2 Will Too. [address] [place] [address], [id number] , [place]. [phone] OFFICE/OUTPAT IENT VISIT, [facility], [address] [place] [address], [id number] , [place] tel:[phone] [facility] Back Pain (chief complaint) Pain in right shoulderPain in right kneePain in right ankle and joints of right footPain in left ankle and joints of left footRadiculopa thy, lumbar regionMyalgia, other sitePostlamine ctomy syndrome, not elsewhere classifiedLong term (current) use of opiate analgesic 2 Mayra Rapp. [address] [place] [address] [address], [place], [id number] , [place]. [phone] Referring Provider: Too Del Cid, [address] [place] [address], [address]. tel:[phone] OFFICE/OUTPAT IENT VISIT, [facility], [address] [place] [address], [id number] , [place] tel:[phone] [facility] Back Pain (chief complaint) Chronic migraine without aura, intractable, without status migrainosusPai n in right shoulderPain in right kneePain in right ankle and joints of right footPain in left ankle and joints of left footRadiculopa thy, lumbar regionMyalgia, other sitePostlamine ctomy syndrome, not elsewhere classifiedLong term (current) use of opiate analgesicSpond ylosis without myelopathy or radiculopathy, lumbar region 2 Mayra Rapp. [address] [place] [address] [address], [place], [id number] , [place]. tel:[phone] Referring Provider: Too Del Cid, [address] [place] [address], [address]. tel:[phone] OFFICE VISIT, [facility], [address] [place] [address], [id number] , [place] [phone] [facility] Back Pain (chief complaint) Chronic migraine without aura, intractable, without status migrainosusPai n in right shoulderPain in right kneeRadiculopa thy, lumbar regionMyalgia, other sitePostlamine ctomy syndrome, not elsewhere classifiedLong term (current) use of opiate analgesicPain in left ankle and joints of left footPain in right ankle and joints of right foot 2 Mayra Rapp. [address] [place] [address] [address], [place], [id number] , [place]. tel:[phone] OFFICE/OUTPAT IENT VISIT, [facility], [address] [place] [address], [id number] , [place] [phone] [facility] Back Pain (chief complaint) Myalgia, other sitePain in right shoulderPain in right kneeRadiculopa thy, lumbar regionPostlami nectomy syndrome, not elsewhere classifiedLong term (current) use of opiate analgesicChron ic migraine without aura, intractable, without status migrainosus Aug- 2 Mayra Rapp. [address] [place] [address] [address], [place], [place], [id number] , [place]. tel:[phone] Referring Provider: Too Del Cid, [address] [place] [address], [address]. tel:[phone] [facility], [address] [place] [address], [id number] , [place] tel:[phone] [facility] [place] No Information Aug- 2 Will Too. [address] [place] [address], [id number] , [place]. tel:[phone] [facility], [address] [place] [address], [id number] , [place] tel:[phone] [facility] No Information Jul- 2 Mayra Rapp. [address] [place] [address] [address], [place], [place], [id number] , [place]. tel:[phone] Referring Provider: Too Del Cid, [address] [place] [address], [address]. tel:[phone] OFFICE/OUTPAT IENT VISIT, EST [facility], [address] [place] [address], [id number] , [place] tel:[phone] [facility] Back Pain (chief complaint) Radiculopathy, lumbar regionMyalgia, other sitePostlamine ctomy syndrome, not elsewhere classifiedLong term (current) use of opiate analgesicEncou nter for therapeutic drug level monitoringEnco unter for screening for other disorderPain in right shoulderPain in right knee Jul- 2 Mayra Rapp. [address] [place] [address] [address], [place], [place], [id number] , [place]. tel:[phone] Referring Provider: Caleb Ontiveros, [facility] [address] [facility], [place], [address]. tel:[phone] OFFICE VISIT, [facility], [address] [place] [address], [id number] , [place] tel: [phone] [facility] Back Pain (chief complaint) Postlaminectom y syndrome, not elsewhere classifiedRadi culopathy, lumbar regionMyalgia, other siteLong term (current) use of opiate analgesic - 2 Mayra Rapp. [facility] [address], [place], [place], [id number] , [place]. tel:[phone] Referring Provider: Too Del Cid, [address] [place] [address], [address]. tel:[phone] OFFICE/OUTPAT IENT VISIT, [facility], [address] [place] [address], [id number] , [place] tel:[phone] [facility] Back Pain (chief complaint) Myalgia, other sitePostlamine ctomy syndrome, not elsewhere classifiedRadi culopathy, lumbar regionLong term (current) use of opiate analgesic 1 Mayra Rapp. [address] [place] [address] [address], [place], [place], [id number] , [place]. tel:[phone] Referring Provider: Too Del Cid, [address] [place] [address], [address]. tel:[phone] OFFICE VISIT, [facility], [address] [place] [address], [id number] , [place] tel:[phone] [facility] low back pain (chief complaint) Radiculopathy, lumbar regionMyalgia, other siteLong term (current) use of opiate analgesicPostl aminectomy syndrome, not elsewhere classified Nov- 1 Mayra Rapp. [address] [facility] [address], [place], [place], [id number] , [place]. tel:[phone] Referring Provider: Too Del Cid, [address] [place] [address], [address]. [phone] [facility], [address] [place] [address], [id number] , [place] tel:[phone] [facility] Postlaminectom y syndrome, not elsewhere classified 1 Mayra Rapp. [address] [place] [address] [address], [place], [place], [id number] , [place]. tel:[phone] Referring Provider: Too Del Cid, [address] [place] [address], [address]. [phone] OFFICE/OUTPAT IENT VISIT, EST [facility], [address] [place] [address], [id number] , [place] tel:[phone] [facility] Widespread pain (chief complaint) Postlaminectom y syndrome, not elsewhere classifiedRadi culopathy, lumbar regionMyalgia, other siteLong term (current) use of opiate analgesic 1 Mayra Rapp. [address] [place] [address] [address], [place], [place], [id number] , [place]. tel:[phone] Referring Provider: Too Del Cid, [address] [place] [address], [address]. tel:[phone] [facility], [address] [place] [address], [id number] , [place] tel:[phone] [facility] No Information 1 Mayra Rapp. [address] [place] [address] [address], [place], [place], [id number] , [place]. tel:[phone] Referring Provider: Too Del Cid, [address] [place] [address], [address]. tel:[phone] OFFICE/OUTPAT IENT VISIT, [facility], [address] [place] [address], [id number] , [place] tel:[phone] [facility] Widespread pain (chief complaint) Postlaminectom y syndrome, not elsewhere classifiedRadi culopathy, lumbar regionMyalgia, other siteLong term (current) use of opiate analgesic 1 Mayra Rapp. [address] [place] [address] [address], [place], [place], [id number] , [place]. [phone] Referring Provider: Too Del Cid, [address] [place] [address], [address]. tel:[phone] OFFICE/OUTPAT IENT VISIT, [facility], [address] [place] [address], [id number] , [place] [phone] [facility] Widespread pain (chief complaint) Postlaminectom y syndrome, not elsewhere classifiedRadi culopathy, lumbar regionMyalgia, other siteLong term (current) use of opiate analgesic 1 Mayra Rapp. [address] [place] [address] [address], [place], [place], [id number] , [place]. [phone] Referring Provider: Too Del Cid, [address] [place] [address], [address]. [phone] [address] [place] [address] [facility] Clinic, [address] [place] [address], [id number] , [place] [phone] [facility] Postlaminectom y syndrome, not elsewhere classified 1 Mayra Rapp. [address] [place] [address] [address], [place], [place], [id number] , [place]. tel:[phone] Referring Provider: Too Del Cid, [address] [place] [address], [address]. tel:[phone] OFFICE/OUTPAT IENT VISIT, [facility], [address] [place] [address], [id number] , [place] tel:[phone] [facility] Widespread pain (chief complaint) Radiculopathy, lumbar regionMyalgia, other siteLong term (current) use of opiate analgesicPostl aminectomy syndrome, not elsewhere classified 1 Mayra Rapp. [address] [place] [address] [address], [place], [id number] , [place]. tel:[phone] Referring Provider: Too Del Cid, [address] [place] [address], [address]. tel:[phone] [facility], [address] [place] [address], [id number] , [place] tel:[phone] [facility] Postlaminectom y syndrome, not elsewhere classified Apr-0 1 Nunez Dionte. [address] [place] [address] [address], [place], [place], [id number] , [place]. tel:[phone] Referring Provider: Too Del Cid, [address] [place] [address], [address]. tel:[phone] OFFICE/OUTPAT IENT VISIT, [facility], [address] [place] [address], [id number] , [place] tel:[phone] [facility] Widespread pain (chief complaint) Postlaminectom y syndrome, not elsewhere classifiedRadi culopathy, lumbar regionMyalgia, other siteLong term (current) use of opiate analgesicEncou nter for screening for other disorder Apr-0 1 Mayra Rapp. [address] [place] [address] [address], [place], [place], [id number] , [place]. tel:[phone] Referring Provider: Too Del Cid, [address] [place] [address], [address]. tel:[phone] OFFICE/OUTPAT IENT VISIT, [facility], [address] [place] [address], [id number] , [place] tel:[phone] [facility] Widespread pain (chief complaint) Postlaminectom y syndrome, not elsewhere classifiedRadi culopathy, lumbar regionMyalgia, other siteLong term (current) use of opiate analgesic Mar-0 1 Mayra Rapp. [address] [place] [address] [address], [place], [place], [id number] , [place]. tel:[phone] Referring Provider: Too Del Cid, [address] [place] [address], [address]. tel:[phone] [facility], [address] [place] [address], [id number] , [place] tel: [phone] [facility] [place] Postlaminectom y syndrome, not elsewhere classified 1 Mayra Rapp. [address] [place] [address] [address], [place], [place], [id number] , [place]. tel:[phone] Referring Provider: Too Del Cid, [address] [place] [address], [address]. tel:[phone] [address] [place] [address] [facility], [address] [place] [address], [id number] , [place] tel:[phone] [facility] [place] No Information 1 Mayra Rapp. [address] [place] [address], [place], [place], [id number] , [place]. tel:[phone] OFFICE/OUTPAT IENT VISIT, EST [facility], [address] [place] [address], [id number] , [place] tel: [phone] [facility] [place] Widespread pain (chief complaint) Postlaminectom y syndrome, not elsewhere classifiedRadi culopathy, lumbar regionMyalgia, other siteLong term (current) use of opiate analgesicPain in right kneeChronic pain syndrome 1 Mayra Rapp. [address] [place] [address] [address], [place], [place], [id number] , [place]. tel:[phone] Referring Provider: Too Del Cid, [address] [place] [address], [address]. tel:[phone] OFFICE VISIT, EST TELEMEDICINE [facility], [address] [place] [address], [id number] , [place] tel: [phone] [facility] [place] Widespread pain (chief complaint) Postlaminectom y syndrome, not elsewhere classifiedRadi culopathy, lumbar regionMyalgia, other siteLong term (current) use of opiate analgesicPain in right kneeChronic pain syndrome 0 Mayra Rapp. [address] [place] [address] [address], [place], [place], [id number] , [place]. tel:[phone] Referring Provider: Too Del Cid, [address] [place] [address], [address]. tel:[phone] [facility], [address] [place] [address], [id number] , [place] tel:[phone] [facility] Postlaminectom y syndrome, not elsewhere classified 0 Mayra Rapp. [address] [place] [address] [address], [place], [place], [id number] , [place]. tel:[phone] Referring Provider: Too Del Cid, [address] [place] [address], [address]. tel:[phone] [facility], [address] [place] [address], [id number] , [place] tel:[phone] [facility] Postlaminectom y syndrome, not elsewhere classified 0 Emiliano Martinez. [address] [place] [address], [id number] , [place]. tel:[phone] Referring Provider: Too Del Cid, [address] [place] [address], [address]. tel:[phone] OFFICE VISIT, EST TELEMEDICINE [facility], [address] [place] [address], [id number] , [place] tel:[phone] [facility] Widespread pain (chief complaint) Radiculopathy, lumbar regionMyalgia, other siteLong term (current) use of opiate analgesicPain in right kneeChronic pain syndromePostla minectomy syndrome, not elsewhere classified 0 Mayra Rapp. [address] [place] [address] [address], [place], [place], [id number] , [place]. tel:[phone] Referring Provider: Too Del Cid, [address] [place] [address], [address]. [phone] OFFICE/OUTPAT IENT VISIT, EST [facility], [address] [place] [address], [id number] , [place] tel:[phone] [facility] [place] Widespread pain (chief complaint) Myalgia, other siteRadiculopa thy, lumbar regionPostlami nectomy syndrome, not elsewhere classifiedLong term (current) use of opiate analgesicPain in right kneeChronic pain syndrome 0 Nunez Dionte. [address] [facility] [address], [place], [place], [id number] , [place]. tel:[phone] Referring Provider: Too Del Cid, [address] [place] [address], [address]. tel:[phone] [facility], [address] [place] [address], [id number] , [place] tel:[phone] [facility] Postlaminectom y syndrome, not elsewhere classifiedMyal isabel, other site 0 Nyjoe Hays. [address] [facility] [address], [place], [place], [id number] , [place]. tel:[phone] Referring Provider: Too Del Cid, [address] [place] [address], [address]. tel:[phone] [facility], [address] [place] [address], [id number] , [place] tel:[phone] [facility] Radiculopathy, lumbar regionPostlami nectomy syndrome, not elsewhere classified 0 Mayra Rapp. [address] [facility] [address], [place], [place], [id number] , [place]. tel:[phone] Referring Provider: Too Del Cid, [address] [place] [address], [address]. tel:[phone] [facility], [address] [place] [address], [id number] , [place] tel:[phone] [facility] No Information Oct-0 6-202 0 Will Too. [address] [place] [address], [id number] , [place]. [phone] Referring Provider: Too Del Cid, [address] [place] [address], [address]. tel:[phone] OFFICE VISIT, EST TELEMEDICINE [facility], [address] [place] [address], [id number] , [place] tel:[phone] [facility] [place] Widespread pain (chief complaint) Radiculopathy, lumbar regionLong term (current) use of opiate analgesicMyalg ia, other sitePain in right kneeChronic pain syndromePostla minectomy syndrome, not elsewhere classified Sep-2 5-202 0 Mayra Rapp. [facility]5 [facility] [address], [place], [place], [id number] , [place]. [phone] Referring Provider: Too Del Cid, [address] [place] [address], [address]. tel:[phone] [facility], [address] [place] [address], [id number] , [place] [phone] [facility] Radiculopathy, lumbar region Sep-0 -202 0 Cummings Michelle. [address] [place] [address], [id number] , [place]. [phone] Referring Provider: Too Del Cid, [address] [place] [address], [address]. tel:[phone] [facility], [address] [place] [address], [id number] , [place] tel:[phone] [facility] No Information Sep-0 3-202 0 Cummings Michelle. [address] [place] [address], [id number] , [place]. [phone] Referring Provider: Too Del Cid, [address] [place] [address], [address]. tel:[phone] OFFICE VISIT, EST TELEMEDICINE [facility], [address] [place] [address], [id number] , [place] tel: [phone] [facility] [place] Widespread pain (chief complaint) Postlaminectom y syndrome, not elsewhere classifiedLong term (current) use of opiate analgesicRadic ulopathy, lumbar regionMyalgia, other sitePain in right kneeChronic pain syndrome 0 Nunez Dionte. [address] [place] [address] [address], [place], [id number] , [place]. tel:[phone] Referring Provider: Too Del Cid, [address] [place] [address], [id number]. tel:[phone] [facility], [address] [place] [address], [id number] , [place] tel: [phone] [facility] [place] Postlaminectom y syndrome, not elsewhere classified 0 Nunez Dionte. [address] [place] [address] [address], [facility], [place], [id number] , [place]. tel:[phone] OFFICE VISIT, EST TELEMEDICINE [facility], [address] [place] [address], [id number] , [place] tel: [phone] [facility] [place] Widespread pain (chief complaint) Pain in right kneeChronic pain syndromePostla minectomy syndrome, not elsewhere classifiedLong term (current) use of opiate analgesicRadic ulopathy, lumbar regionMyalgia, other site 0 Nunez Dionte. [address] [place] [address] [address], [facility], [place], [id number] , [place]. tel:[phone] Referring Provider: Too Del Cid, [address] [place] [address], [address]. tel:[phone] OFFICE VISIT, EST TELEMEDICINE [facility], [address] [place] [address], [id number] , [place] tel:[phone] Telehealth Widespread pain (chief complaint) Pain in right kneeChronic pain syndromePostla minectomy syndrome, not elsewhere classifiedLong term (current) use of opiate analgesicRadic ulopathy, lumbar regionMyalgia, other site 0 Mayra Rapp. [address] [place] [address] [address], [place], [place], [id number] , [place]. tel:[phone] Referring Provider: Too Del Cid, [address] [place] [address], [id number]. tel:[phone] OFFICE VISIT, EST TELEMEDICINE [facility], [address] [place] [address], [id number] , [place] tel:[phone] Telehealth Widespread pain (chief complaint) Postlaminectom y syndrome, not elsewhere classifiedPain in right kneeChronic pain syndromeLong term (current) use of opiate analgesicRadic ulopathy, lumbar regionMyalgia, other site 0 Mayra Rapp. [address] [place] [address] [address], [place], [place], [id number] , [place]. tel:[phone] Referring Provider: Too Del Cid, [address] [place] [address], [address]. tel:[phone] Psych Dx Eval [facility], [address] [place] [address], [id number] , [place] tel:[phone] Telehealth Pain disorder with related psychological factorsPost-tr aumatic stress disorder, unspecified 0 Tess Aguilar. [address] [place] [address], [id number] , [place]. [phone] Referring Provider: oTo Del Cid, [address] [place] [address], [address]. tel:[phone] OFFICE VISIT, EST TELEMEDICINE [facility], [address] [place] [address], [id number] , [place] tel:[phone] Telehealth Widespread pain (chief complaint) Chronic pain syndromePain in right kneePostlamine ctomy syndrome, not elsewhere classifiedLong term (current) use of opiate analgesicMyalg ia, other siteRadiculopa thy, lumbar region 0 Mayra Rapp. [address] [place] [address] [address], [place], [place], [id number] , [place]. tel:[phone] Referring Provider: Too Del Cid, [address] [place] [address], [address]. tel:[phone] OFFICE VISIT, EST [facility], [address] [place] [address], [id number] , [place] tel: [phone] Telehealth Widespread pain (chief complaint) Chronic pain syndromePain in right kneePostlamine ctomy syndrome, not elsewhere classifiedLong term (current) use of opiate analgesic Amos-0 2- 0 Nunez Dionte. [address] [place] [address] [address], [place], [place], [id number] , [place]. tel:[phone] Referring Provider: Too Del Cid, [address] [place] [address], [address]. tel:[phone] OFFICE VISIT, [facility], [address] [place] [address], [id number] , [place] tel: [phone] Telehealth Widespread pain (chief complaint) Postlaminectom y syndrome, not elsewhere classifiedPain in right kneeChronic pain syndromeLong term (current) use of opiate analgesic September- 0 Nunez Dionte. [address] [place] [address] [address], [place], [place], [id number] , [place]. tel: [phone] Referring Provider: Too Del Cid, [address] [place] [address], [address]. tel:[phone] OFFICE VISIT, [facility], [address] [place] [address], [id number] , [place] tel: [phone] Telehealth Widespread pain (chief complaint) Postlaminectom y syndrome, not elsewhere classifiedPain in right kneeChronic pain syndromeLong term (current) use of opiate analgesicPain in left hip September-0 0 Nunez Dionte. [address] [place] [address] [address], [place], [place], [id number] , [place]. tel: [phone] OFFICE VISIT, EST [facility], [address] [place] [address], [id number] , [place] tel:[phone] Telehealth Widespread pain (chief complaint) Postlaminectom y syndrome, not elsewhere classifiedPain in right kneeChronic pain syndromeLong term (current) use of opiate analgesic Apr-2 0-202 0 Mayra Rapp. [address] [facility] [address], [place], [place], [id number] , [place]. tel:[phone] Referring Provider: Too Del Cid, [address] [place] [address], [address]. tel:[phone] OFFICE VISIT, EST TELEMEDICINE [facility], [address] [place] [address], [id number] , [place] tel:[phone] Telehealth Widespread pain (chief complaint) Postlaminectom y syndrome, not elsewhere classifiedPain in right kneeChronic pain syndromeLong term (current) use of opiate analgesic Apr-0 2-202 0 Mayra Rapp. [address] [place] [address] [address], [place], [place], [id number] , [place]. tel:[phone] Referring Provider: Too Del Cid, [address] [place] [address], [address]. 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 [address] [place] [address] [address], [place], [place], [id number] , [place]. tel:[phone] Referring Provider: Too Del Cid, [address] [place] [address], [address]. tel:[phone] [facility], [address] [place] [address], [id number] , [place] [phone] [facility] [place] No Information Jul- 0- 0 Mayra Rapp. [address] [place] [address] [address], [facility], [place], [id number] , [place]. tel:[phone] OFFICE/OUTPAT IENT VISIT, [facility], [address] [place], [place], [id number] , [place] tel:[phone] [facility] Widespread pain (chief complaint) Chronic pain syndromePostla minectomy syndrome, not elsewhere classifiedPain in right kneeLong term (current) use of opiate analgesic Jul-0 - 0 Mayra Rapp. [address] [facility] [address], [place], [place], [id number] , [place]. tel:[phone] Referring Provider: Too Del Cid, [address] [place], [address]. tel:[phone] OFFICE/OUTPAT IENT VISIT, [facility], [address] [place], [place], [id number] , [place] tel:[phone] [facility] Widespread pain (chief complaint) Chronic pain syndromePostla minectomy syndrome, not elsewhere classifiedMyal isabel, other sitePain in right kneeEncounter for therapeutic drug level monitoringLong term (current) use of opiate analgesic 2 0 Nunez Dionte. [address] [facility] [address], [place], [place], [id number] , [place]. tel:[phone] Referring Provider: Caleb Ontiveros [facility] [address] [facility], [place], [address]. tel:[phone] Family History Family Member Type Diagnosis Age At Onset No Information Payers Payer name Insurance type Covered libertarian ID Authoriza tiada(s) [employer] [facility] Replacement [id number] Social History Type Description Quantity Date Captured [...] C scre ening. Due on due Goal VALET ATTENDANT Scanned. Due on due Goal Creatinine. Due [...] vaccine ( 1st). Due on due Goal TRADE SPECIALIST Paperwork. Due on due Goal UDT. Due [...] Goal PHQ-9. Due on du e Goal VALET ATTENDANT Scanned. Due on due Goal TRADE SPECIALIST Paperwork. Due on due Goal Creatinine. Due [...] ue Goal Creatinine. Due on due Goal TRADE SPECIALIST Paperwork. Due on due Goal OARS. Due on due Goal ALT (SGPT). Due on due Goal Hepatitis C scre ening. Due on due Goal VALET ATTENDANT Scanned. Due on due Goal Order Annual [...] e Goal OARS. Due on due Goal TRADE SPECIALIST Paperwork. Due on due Goal Height. Due [...] Goal AST (SGOT). Due on due Goal VALET ATTENDANT Scanned. Due on due Goal VALET ATTENDANT Scanned. Due on due Goal Zoster vaccine ( 1st). Due on due Goal ALT (SGPT). Due on due Goal TRADE SPECIALIST Paperwork. Due on due Goal Creatinine. Due [...] ue Goal CT-Colonography. Due on due Goal VALET ATTENDANT Scanned. Due on due Goal Creatinine. Due [...] Goal PHQ-9. Due on du e Goal TRADE SPECIALIST Paperwork. Due on due Goal Height. Due on d ue Goal Weight. Due on d ue Goal Tobacco Use. Due on due Goal Unhealthy drug u se screening. Due on due Goal ALT (SGPT). Due on due Goal CT-Colonography. Due on due Goal HPV. Due on due Goal Creatinine. Due on due Goal CT-Colonography. Due on due Goal TRADE SPECIALIST Paperwork. Due on due Goal ALT (SGPT). [...] Goal Weight. Due on d ue Goal VALET ATTENDANT Scanned. Due on due Goal FIT-DNA. Due [...] Order Annual PT. Due on due Goal VALET ATTENDANT Scanned. Due on due Goal ALT (SGPT). Due on due Goal Height. Due on d ue Goal OARS. Due on due Goal TRADE SPECIALIST Paperwork. Due on due Goal Lipid panel. [...] u se screening. Due on due Goal VALET ATTENDANT Scanned. Due on due Goal Tobacco Use. [...] Order Annual PT. Due on due Goal TRADE SPECIALIST Paperwork. Due on due Goal HPV. Due on due Goal Zoster vaccine ( 1st). Due on due Goal OARS. Due on due Goal AST (SGOT). Due on due Goal Weight. Due on d ue Goal Height. Due on d ue Goal Hepatitis C scre ening. Due on due Goal Update Social Hi story. Due on due Goal TRADE SPECIALIST Paperwork. Due on due Goal OARS. Due on due Goal ALT (SGPT). Due on due Goal VALET ATTENDANT Scanned. Due on due Goal UDT. Due [...] Order Annual PT. Due on due Goal TRADE SPECIALIST Paperwork. Due on due Goal Creatinine. Due on due Goal VALET ATTENDANT Scanned. Due on due Goal OARS. Due [...] C scre ening. Due on due Goal VALET ATTENDANT Scanned. Due on due Goal Creatinine. Due on due Goal OARS. Due on due Goal Order Annual PT. Due on due Goal TRADE SPECIALIST Paperwork. Due on due Goal AST (SGOT). [...] due Goal HPV. Due on due Goal VALET ATTENDANT Scanned. Due on due Goal AST (SGOT). Due on due Goal Lipid panel. Due on due Goal PHQ-9. Due on du e Goal Creatinine. Due on due Goal FIT. Due on due Goal Medication Recon ciliation. Due on due Goal Weight. Due on d ue Goal TRADE SPECIALIST Paperwork. Due on due Goal Review Allergy [...] Goal Weight. Due on d ue Goal VALET ATTENDANT Scanned. Due on due Goal ALT (SGPT). [...] due Goal CT-Colonography. Due on due Goal TRADE SPECIALIST Paperwork. Due on due Goal OARS. Due on due Goal UDT. Due on due Goal Tobacco Use. Due on due Goal HPV. Due on due Goal TRADE SPECIALIST Paperwork. Due on due Goal FIT-DNA. Due on due Goal Lipid panel. Due on due Goal Weight. Due on d ue Goal UDT. Due on due Goal VALET ATTENDANT Scanned. Due on due Goal OARS. Due [...] Order Annual PT. Due on due Goal VALET ATTENDANT Scanned. Due on due Goal Creatinine. Due [...] vaccine ( 1st). Due on due Goal TRADE SPECIALIST Paperwork. Due on due Goal Order Annual PT. Due on due Goal FIT. Due on due Goal VALET ATTENDANT Scanned. Due on due Goal PHQ-9. Due [...] due Goal OARS. Due on due Goal TRADE SPECIALIST Paperwork. Due on due Goal ALT (SGPT). [...] due Goal CT-Colonography. Due on due Goal VALET ATTENDANT Scanned. Due on due Goal FIT-DNA. Due on due Goal Tobacco Use. Due on due Goal Creatinine. Due on due Goal Review Allergy L ist. Due on due Goal Lipid panel. Due on due Goal TRADE SPECIALIST Paperwork. Due on due Goal UDT. Due on due Goal PHQ-9. Due on du e Goal Update Social Hi story. Due on due Goal Hepatitis C scre ening. Due on due Goal VALET ATTENDANT Scanned. Due on due Goal Medication Recon ciliation. Due on due Goal OARS. Due on due Goal Tobacco Use. Due on due Goal Creatinine. Due on due Goal TRADE SPECIALIST Paperwork. Due on due Goal ALT (SGPT). [...] Goal ALT (SGPT). Due on due Goal TRADE SPECIALIST Paperwork. Due on due Goal PHQ-9. Due on du e Goal Creatinine. Due on due Goal UDT. Due on due Goal Medication Recon ciliation. Due on due Goal VALET ATTENDANT Scanned. Due on due Goal Update Social Hi story. Due on due Goal Height. Due on d ue Goal Weight. Due on d ue Goal Review Allergy L ist. Due on due Goal Tobacco Use. Due on due Goal OARS. Due on due Goal Order Annual PT. Due on due Goal TRADE SPECIALIST Paperwork. Due on due Goal Tobacco Use. Due on due Goal PHQ-9. Due on du e Goal ALT (SGPT). Due on due Goal Update Social Hi story. Due on due Goal OARS. Due on due Goal Order Annual PT. Due on due Goal Creatinine. Due on due Goal AST (SGOT). Due on due Goal VALET ATTENDANT Scanned. Due on due Goal Review Allergy L ist. Due on due Goal Height. Due on d ue Goal UDT. Due on due Goal Weight. Due on d ue Goal Medication Recon ciliation. Due on due Goal OARS. Due on due Goal Creatinine. Due on due Goal VALET ATTENDANT Scanned. Due on due Goal Order Annual PT. Due on due Goal ALT (SGPT). Due on due Goal Update Social Hi story. Due on due Goal Review Allergy L ist. Due on due Goal AST (SGOT). Due on due Goal UDT. Due on due Goal Weight. Due on d ue Goal Medication Recon ciliation. Due on due Goal TRADE SPECIALIST Paperwork. Due on due Goal PHQ-9. Due [...] Goal Weight. Due on d ue Goal VALET ATTENDANT Scanned. Due on due Goal PHQ-9. Due on du e Goal TRADE SPECIALIST Paperwork. Due on due Goal Medication Recon ciliation. Due on due Goal Tobacco Use. Due on due Goal UDT. Due on due Goal Update Social Hi story. Due on due Goal Height. Due on d ue Goal VALET ATTENDANT Scanned. Due on due Goal Order Annual PT. Due on due Goal TRADE SPECIALIST Paperwork. Due on due Goal UDT. Due [...] due Goal OARS. Due on due Goal TRADE SPECIALIST Paperwork. Due on due Goal VALET ATTENDANT Scanned. Due on due Goal Creatinine. Due [...] Goal Height. Due on d ue Goal VALET ATTENDANT Scanned. Due on due Goal OARS. Due on due Goal Creatinine. Due on due Goal Weight. Due on d ue Goal UDT. Due on due Goal AST (SGOT). Due on due Goal Order Annual PT. Due on due Goal PHQ-9. Due on du e Goal TRADE SPECIALIST Paperwork. Due on due Goal Review Allergy L ist. Due on due Goal Medication Recon ciliation. Due on due Goal AST (SGOT). Due on due Goal Height. Due on d ue Goal PHQ-9. Due on du e Goal Order Annual PT. Due on due Goal Medication Recon ciliation. Due on due Goal Tobacco Use. Due on due Goal TRADE SPECIALIST Paperwork. Due on due Goal Review Allergy L ist. Due on due Goal Creatinine. Due on due Goal ALT (SGPT). Due on due Goal Update Social Hi story. Due on due Goal UDT. Due on due Goal OARS. Due on due Goal Weight. Due on d ue Goal VALET ATTENDANT Scanned. Due on due Goal UDT. Due on due Goal OARS. Due on due Goal Creatinine. Due on due Goal VALET ATTENDANT Scanned. Due on due Goal Review Allergy L ist. Due on due Goal Order Annual PT. Due on due Goal ALT (SGPT). Due on due Goal Tobacco Use. Due on due Goal PHQ-9. Due on du e Goal Update Social [employer] story. Due on due Goal TRADE SPECIALIST Paperwork. Due on due Goal AST (SGOT). [...] Radiculopathy, lumbar region) ordered Referral Referred To: [facility] [address] [place], [address] [phone] Ordered: Referrals: Family Medicine. [facility] ordered Referral Ordered: X-RAY EXAM OF HIPS LT hip ordered Referral Ordered: Azael Regan -[facility] : Family Medicine (related to Postlaminectomy syndrome, not elsewhere classified) ordered Referral Referred To: Azael Regan [facility]
[address] [place], [phone] Ordered: Referrals: [facility] Phys[facility] : [...] assessment:Difficulty reaching, lifting, carrying, pushing, pulling, and facilities maintenance engineer is hopeful that the SCS device will [...] discomfort. Patient was meeting with Jose from [facility] today and expressed her frustration with charging. [...] TKA on 07/09/[address] Camara from [facility]. VALET ATTENDANT was reviewed and shows pt was rx'ed 2mg Dilaudid max 7/day for post op pain. She was rx'ed #49tabs on 08/23/21, #49tabs on 08/19/21 and #49 tabs on 08/08/21. Her chronic dose at [facility] is #5tabs a day, patient agreeable [...] rescheduled for 07/09/[address] Camara from [facility]. Surgeon will manage post-op pain. Lower [...] for [address] Lino or from [facility]. It was canceled due to no hospital beds available with [facility].Expresses her ongoing frustration regarding her [...] scheduled R TKA with Dr. Camara through [facility]. Discussed post-op pain management. Also continues [...] order. She looks forward to reprogramming with [facility] today as she has had questions about [...] Pain has been worse. She went to [facility] two weeks ago with atrial fibrillation. She completed work-up and was put on warfarin. She met with her orthopedist at [facility] regarding her R knee pain. Orthopedist recommended [...] month due to visiting her daughter in [place]. She realized she can not walk long distances with her walker. Had a injection scheduled with [facility] but [employer] service could not provide her the ride from [place]. She is excited about the recently approved [...] trial.She had a recent lumbar MRI with [facility] and per patient the imaging showed herniation and disc slippage at multiple levels. She said [facility] recommend a injection. With previous injections, she explains having a reaction to the procedure. She scheduled the injection on 12/[address] estrella at [facility].Reports current medication regimen provides at [...] upcoming appt. with a back surgeon through [facility] next week to be evaluated. [...] over.Notes that she followed up with her loading machine adjuster yesterday. States that she has arrythmia although [...] [employer] SCS trial. Reports she presented to [facility] and dropped off her psych evaluation [...] and she is also unable to attend transitional care manager which she significantly benefits from. She still [...] are managed by [facility] facility. Denies side effects.Patient is not accompanied [...] been recommended for possible R TKA at [facility], but no date has been scheduled. States her pain causes her lots of anxiety because she has tried many treatments without significant benefit. She is currently enrolled in PT at [facility] in [facility]. She also regularly attends the [...] and other recommended therapies and would like [facility] to assume management of pain care. Functional Status Date Functional Assessmen t No Information Instructions Date Instruction Additional Infor mation No Information Assessments Type Assessment Date assessment Pain in right knee impression S/p right TKA on 12/[address] Camara from [facility]. Has been participating in PT with good benefit. Pain has been worse since [facility] assessment Pain in left ankle and joints of left foot impression Worsening pain in th e left ankle and is considering an ankle fusion assessment Radiculopathy, lumbar region Jul impression Lower back pain with radiation into her BLE, continues to worsen since [facility] assessment Myalgia, other site impression TPIs in the past wit hout benefit. PO muscle relaxers provide moderate relief assessment Postlaminectomy syndrome, not el sewhere classified impression Hx of L4-S1 fusion. 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 Medication managed by facility.Most of today's visit was spent discussing the patient's recent discharge from the clinic d/t her inappropriate behavior and language used toward staff. Patient expresses frustrations with termination. TRADE SPECIALIST terminated.Most recent UDT results reviewed and appropriate. Not appropriate to continue opioid therapy d/t issues with inappropriate behavior. Current MME 30 Mental Status Date Cognitive Assessment Orientation - [place] ed to time, place, person, situation. Patient Care Teams Name Effective Dates (start - stop) Status Members No Information
== END 2023-05-21 23:30 | disposition home or self-care (01) ==
LOC: AMB 05-23 06:51
PROVIDERS: PCP Internal Medicine; Visit Provider Emergency Medicine
DX: U07.1 COVID-19 (principal); R53.1 Weakness
CPT/HCPCS: A0425; A0427

== ENCOUNTER 2023-06-16 10:36 | Outpatient (CLI) | payer OTHER, SELFPAY ==
--- OUTSIDE RECORDS SUMMARY | 2023-06-16 10:40 | XMS_ITS | Encounter Summary ---
Author Name Unknown Organization [facility] Address [address] [place] [address] Care Team Providers Care Solar Power Installer Name Role Phone Aleksey Smith MD Primary Care Provider +1- [phone] Encounter Details Date Type Department Care Team Description 03/22/2021 Lab Requisition [facility] [address] [place] [address] Azael Regan DO [address] [address] Unspecified atrial fibrillation (HRC) Discharge Disposition: Home Social History Tobacco Use Types Packs/Day Years Used Date Smoking Tobacco: Every Day Cigarettes Smokeless Tobacco: Former Quit: 12/02/2014 Alcohol Use Standard Drinks/Week Comments Yes 0 (1 standard drink = 0.6 oz pure alcohol) occasional, one-two glass of wine monthly Sex and Gender Information Value Date Recorded Sex Assigned at Not on file Gender Identity Not on file Sexual Orientation Not on file documented as of this encounter Plan of Treatment Upcoming Encounters Date Type Department Care Team Description 07/09/2023 11:40 AM PALLET RECTIFIER Appointment [facility] Medicine [address] [place], [place] [address] [place] [address] [place] [id number] documented as of this encounter Procedures Procedure Name Priority Date/Time Associated Diagnosis Comments INR/PROTIME Routine 04/04/2021 10:15 AM CDT Unspecified atrial fibrillation (HRC) documented in this encounter Results * (ABNORMAL) INR/Protime (04/04/2021 10:15 AM CDT) Protime 24.7(H) 11.8 - 14.6 Seconds 04/04/2021 1:30 PM CDT [facility] INR 2.3(H) 0.9 - 1.1 04/04/2021 1:30 PM CDT [facility] Blood Venipuncture / Unknown 04/04/2021 10:15 AM CDT 04/04/2021 1:04 PM CDT Narrative [facility] - 04/04/2021 1:30 PM CDT Therapeutic range determined by protocol established by anticoagulation provider. Azael Regan DO LAB_1 [facility] [address] documented in this encounter Visit Diagnoses Diagnosis Unspecified atrial fibrillation (HRC) documented in this encounter Care Teams Solar Power Installer Relationship Specialty Start Date End Date Aleksey Smith MD [address] [place] [address] PCP - General 02/09/13 documented as of this encounter
--- OUTSIDE RECORDS SUMMARY | 2023-06-16 10:40 | XMS_ITS | Encounter Summary ---
Author Name Unknown Organization [facility] Address [address] [place] [address] Care Team Providers Care Tire Tester Name Role Phone Aleksey Smith MD Primary Care Provider +1- [phone] Encounter Details Date Type Department Care Team Description 02/22/2021 Lab Requisition [facility] [address] [place], [place] [address] Azael Regan DO [address] [address] Unspecified atrial fibrillation (HRC) Social History Tobacco Use Types Packs/Day Years [...] Department Care Team Description 07/09/2023 11:40 AM DIE BAKER Appointment [facility] Medicine [address] [place], [place] [address] [place] [address] [place] Com[place] [id number] documented as of this encounter Visit Diagnoses Diagnosis Unspecified atrial fibrillation (HRC) documented in this encounter Care Teams Tire Tester Relationship Specialty Start Date End Date Aleksey Smith MD [address] [place] [address] PCP - General 02/09/13 documented as of this encounter
--- OUTSIDE RECORDS SUMMARY | 2023-06-16 10:40 | XMS_ITS | Encounter Summary ---
Author Name Unknown Organization [facility] Address [address] [place] [address] Care Team Providers Care Coffin Maker Name Role Phone Aleksey Smith MD Primary Care Provider +1- [phone] Encounter Details Date Type Department Care Team Description 01/23/2021 Lab Requisition [facility] [address] [place] [address] Azael Regan DO [address] [address] Unspecified atrial fibrillation (HRC) Discharge Disposition: Home [...] Department Care Team Description 07/09/2023 11:40 AM BANKING ATTORNEY Appointment [facility] Medicine [address] [place], [place] 3[address] [place] [address] [place] [id number] documented as of this encounter Procedures Procedure Name Priority Date/Time Associated Diagnosis Comments INR/PROTIME Routine 2021 2:22 PM CDT Unspecified atrial fibrillation (HRC) documented in this encounter Results * (ABNORMAL) INR/Protime (2021 2:22 PM CDT) Protime 22.5(H) 11.8 - 14.6 Seconds 2021 5:08 PM CDT [facility] INR 2.0(H) 0.9 - 1.1 2021 5:08 PM CDT [facility] Blood Venipuncture / Unknown 2021 2:22 PM CDT 2021 4:34 PM CDT Narrative [facility] - 2021 5:08 PM CDT Therapeutic range determined by protocol established by anticoagulation provider. Azael Regan DO LAB_1 [facility] [address] [place] [address], [facility] documented in this encounter Visit Diagnoses Diagnosis Unspecified atrial fibrillation (HRC) documented in this encounter Care Teams Coffin Maker Relationship Specialty Start Date End Date Aleksey Smith MD [address] [place] [address] PCP - General 02/09/13 documented as of this encounter
--- OUTSIDE RECORDS SUMMARY | 2023-06-16 10:40 | XMS_ITS | Encounter Summary ---
Author Name Unknown Organization [facility] Address [address] [place] [address] Care Team Providers Care Tankage Supervisor Name Role Phone Aleksey Smith MD Primary Care Provider +1- [phone] Encounter Details Date Type Department Care Team Description 03/28/2021 Lab Requisition [facility] [address] [place] [address] Azael Regan DO [address] [address] Unspecified atrial fibrillation (HRC) Discharge Disposition: Home [...] Department Care Team Description 07/09/2023 11:40 AM RN CHEMICAL DEPENDENCY Appointment [facility] Medicine [address] [place], [place] [address] [place] [address] [place] [id number] documented as of this encounter Procedures Procedure Name Priority Date/Time Associated Diagnosis Comments INR/PROTIME Routine 04/02/2021 1:40 PM CDT Unspecified atrial fibrillation (HRC) documented in this encounter Results * (ABNORMAL) INR/Protime (04/02/2021 1:40 PM CDT) Protime 23.5(H) 11.8 - 14.6 Seconds 04/02/2021 4:52 PM CDT [facility] INR 2.2(H) 0.9 - 1.1 04/02/2021 4:52 PM CDT [facility] Blood Venipuncture / Unknown 04/02/2021 1:40 PM CDT 04/02/2021 4:14 PM CDT Narrative [facility] - 04/02/2021 4:52 PM CDT Therapeutic range determined by protocol established by anticoagulation provider. Azael Regan DO LAB_1 [facility] [address] documented in this encounter Visit Diagnoses Diagnosis Unspecified atrial fibrillation (HRC) documented in this encounter Care Teams Tankage Supervisor Relationship Specialty Start Date End Date Aleksey Smith MD [address] [place] [address] PCP - General 02/09/13 documented as of this encounter
--- OUTSIDE RECORDS SUMMARY | 2023-06-16 10:40 | XMS_ITS | Encounter Summary ---
Author Name Unknown Organization [facility] Address [address] [place] [address] Care Team Providers Care Abstract Manager Name Role Phone Aleksey Smith MD Primary Care Provider +1- [phone] Encounter Details Date Type Department Care Team Description 03/26/2021 Lab Requisition [facility] [address] [place], [place] [address] Azael Regan DO [address] [address] Vitamin D deficiency, unspecified Social History Tobacco Use Types Packs/Day Years [...] Department Care Team Description 07/09/2023 11:40 AM TOY DESIGNER Appointment [facility] Medicine [address] [place], [place] [address] [place] [address] [place] JOE Combs [phone] documented as of this encounter Visit Diagnoses Diagnosis Vitamin D deficiency, unspecified (HRC) documented in this encounter Care Teams Abstract Manager Relationship Specialty Start Date End Date Aleksey Smith MD [address] [place] [address] PCP - General 02/09/13 documented as of this encounter
--- OUTSIDE RECORDS SUMMARY | 2023-06-16 10:40 | XMS_ITS | Encounter Summary ---
Author Name Unknown Organization [facility] Address [address] [place] [address] Care Team Providers Care Supervisor Word Processing Name Role Phone Aleksey Smith MD Primary Care Provider +1- [phone] Encounter Details Date Type Department Care Team Description 03/20/2021 Lab Requisition [facility] [address] [place] [address] Azael Regan DO [address] [address] Unspecified atrial fibrillation (HRC) Discharge Disposition: Home [...] Department Care Team Description 07/09/2023 11:40 AM SAND SIFTER Appointment [facility] Medicine [address] [place], [place] [address] [place] [address] [place] [id number] documented as of this encounter Procedures Procedure Name Priority Date/Time Associated Diagnosis Comments INR/PROTIME Routine 03/21/2021 2:17 PM CDT Unspecified atrial fibrillation (HRC) documented in this encounter Results * (ABNORMAL) INR/Protime (03/21/2021 2:17 PM CDT) Protime 16.0(H) 11.8 - 14.6 Seconds 03/21/2021 8:34 PM CDT [facility] INR 1.3(H) 0.9 - 1.1 03/21/2021 8:34 PM CDT [facility] Blood Venipuncture / Unknown 03/21/2021 2:17 PM CDT 03/21/2021 7:58 PM CDT Narrative [facility] - 03/21/2021 8:34 PM CDT Therapeutic range determined by protocol established by anticoagulation provider. Azael Regan DO LAB_1 [facility] [address] documented in this encounter Visit Diagnoses Diagnosis Unspecified atrial fibrillation (HRC) documented in this encounter Care Teams Supervisor Word Processing Relationship Specialty Start Date End Date Aleksey Smith MD [address] [place] [address] PCP - General 02/09/13 documented as of this encounter
--- OUTSIDE RECORDS SUMMARY | 2023-06-16 10:40 | XMS_ITS | Encounter Summary ---
Author Name Unknown Organization [facility] Address [address] [place] [address] Care Team Providers Care Supervisor Cigarette Making Department Name Role Phone Aleksey Smith MD Primary Care Provider +1- [phone] Encounter Details Date Type Department Care Team Description 03/22/2021 Lab Requisition [facility] [address] [place], [place] [address] Azael Regan DO [address] [address] Unspecified atrial fibrillation (HRC) Social History Tobacco [...] Department Care Team Description 07/09/2023 11:40 AM PRODUCE DEPARTMENT MANAGER Appointment [facility] Medicine [address] [place], [place] [address] [place] [address] [place] JOE Combs [id number] documented as of this encounter Visit Diagnoses Diagnosis Unspecified atrial fibrillation (HRC) documented in this encounter Care Teams Supervisor Cigarette Making Department Relationship Specialty Start Date End Date Aleksey Smith MD [address] [place] [address] PCP - General 02/09/13 documented as of this encounter
--- OUTSIDE RECORDS SUMMARY | 2023-06-16 10:40 | XMS_ITS | Encounter Summary ---
Author Name Unknown Organization [facility] Address [address] [place] [address] Care Team Providers Care Training Representative Name Role Phone Aleksey Smith MD Primary Care Provider +1- [phone] Encounter Details Date Type Department Care Team Description 03/04/2021 Lab Requisition [facility] [address] [place], [place] [address] Azael Regan DO [address] [address] Unspecified atrial fibrillation (HRC) Social History Tobacco [...] Department Care Team Description 07/09/2023 11:40 AM HOT BLASTER Appointment [facility] [address] [place], [place] [address] [place] [address] [place] Combs [id number] documented as of this encounter Visit Diagnoses Diagnosis Unspecified atrial fibrillation (HRC) documented in this encounter Care Teams Training Representative Relationship Specialty Start Date End Date Aleksey Smith MD [address] [place] [address] PCP - General 02/09/13 documented as of this encounter
--- OUTSIDE RECORDS SUMMARY | 2023-06-16 10:40 | XMS_ITS | Encounter Summary ---
Author Name Unknown Organization [facility] Address [address] [place] [address] Care Team Providers Care Retinal Surgeon Name Role Phone Aleksey Smith MD Primary Care Provider +1- [phone] Encounter Details Date Type Department Care Team Description 03/22/2021 Lab Requisition [facility] [address] [place] [address] Azael Regan DO [address] [address] Unspecified atrial fibrillation (HRC) Social History Tobacco [...] Department Care Team Description 07/09/2023 11:40 AM PERFORMANCE IMPROVEMENT COORDINATOR Appointment [facility] Medicine [address] [place], [place] [address] [place] [address] [place] JOE Combs [id number] Scheduled Orders Name Type Priority Associated Diagnoses Orde r Schedule INR/Protime Lab Routine Unspecified atrial fibrillation (HRC) Ordered: 03/22/2021 documented as of this encounter Visit Diagnoses Diagnosis Unspecified atrial fibrillation (HRC) documented in this encounter Care Teams Retinal Surgeon Relationship Specialty Start Date End Date Aleksey Smith MD [address] [place] [address] PCP - General 02/09/13 documented as of this encounter
--- OUTSIDE RECORDS SUMMARY | 2023-06-16 10:40 | XMS_ITS | Encounter Summary ---
Author Name Unknown Organization [facility] Address [address] [place] [address] Care Team Providers Care Flume Maker Name Role Phone Aleksey Smith MD Primary Care Provider +1- [phone] Encounter Details Date Type Department Care Team Description 02/05/2021 Lab Requisition [facility] [address] [place] [address] Azael Regan DO [address] [address] Acute embolism and thrombosis of unspecified deep veins of right lower extremity (HRC) Discharge Disposition: Home Social History Tobacco [...] Department Care Team Description 07/09/2023 11:40 AM PEOPLESOFT FSCM DEVELOPER Appointment [facility] [address] [place] [address] [place] [address] [place] [address] documented as of this encounter Procedures Procedure Name Priority Date/Time Associated Diagnosis Comments INR/PROTIME Routine 02/07/2021 3:35 PM CDT Acute embolism and thrombosis of unspecified deep veins of right lower extremity (HRC) documented in this encounter Results * (ABNORMAL) INR/Protime (02/07/2021 3:35 PM CDT) Protime 24.0(H) 11.8 - 14.6 Seconds 02/07/2021 5:27 PM CDT [facility] INR 2.2(H) 0.9 - 1.1 02/07/2021 5:27 PM CDT [facility] Blood Venipuncture / Unknown 02/07/2021 3:35 PM CDT 02/07/2021 5:03 PM CDT Narrative [facility] - 02/07/2021 5:27 PM CDT Therapeutic range determined by protocol established by anticoagulation provider. Azael Regan DO LAB_1 [facility] [address] documented in this encounter Visit Diagnoses Diagnosis Acute embolism and thrombosis of unspecified deep veins of right lower extremity (HRC) documented in this encounter Care Teams Flume Maker Relationship Specialty Start Date End Date Aleksey Smith MD [address] [place] [address] PCP - General 02/09/13 documented as of this encounter
--- OUTSIDE RECORDS SUMMARY | 2023-06-16 10:40 | XMS_ITS | Encounter Summary ---
Author Name Unknown Organization [facility] Address [address] [place] [address] Care Team Providers Care Antique Furniture Repairer Name Role Phone Aleksey Smith MD Primary Care Provider +1- [phone] Encounter Details Date Type Department Care Team Description 02/08/2021 Lab Requisition [facility] [address] [place] [address] Azael Regan DO [address] [address] Unspecified atrial fibrillation (HRC) Discharge Disposition: Home [...] Department Care Team Description 07/09/2023 11:40 AM RELIGIOUS EDUCATION TEACHER Appointment [facility] Medicine [address] [place], [place] [address] [place] [address] [place] [id number] documented as of this encounter Procedures Procedure Name Priority Date/Time Associated Diagnosis Comments INR/PROTIME Routine 02/14/2021 4:56 PM CDT Unspecified atrial fibrillation (HRC) documented in this encounter Results * (ABNORMAL) INR/Protime (02/14/2021 4:56 PM CDT) Protime 22.9(H) 11.8 - 14.6 Seconds 02/14/2021 7:53 PM CDT [facility] INR 2.1(H) 0.9 - 1.1 02/14/2021 7:53 PM CDT [facility] Blood Venipuncture / Unknown 02/14/2021 4:56 PM CDT 02/14/2021 7:23 PM CDT Narrative [facility] - 02/14/2021 7:53 PM CDT Therapeutic range determined by protocol established by anticoagulation provider. Azael Regan DO LAB_1 [facility] [address] [place] [address], [facility] documented in this encounter Visit Diagnoses Diagnosis Unspecified atrial fibrillation (HRC) documented in this encounter Care Teams Antique Furniture Repairer Relationship Specialty Start Date End Date Aleksey Smith MD [address] [place] [address] PCP - General 02/09/13 documented as of this encounter
--- OUTSIDE RECORDS SUMMARY | 2023-06-16 10:40 | XMS_ITS | Encounter Summary ---
Author Name Unknown Organization [facility] Address [address] [place] [address] Care Team Providers Care Agricultural Purchasing Agent Name Role Phone Aleksey Smith MD Primary Care Provider +1- [phone] Encounter Details Date Type Department Care Team Description 04/10/2021 Lab Requisition [facility] [address] [place], [place] [address] Azael Regan DO [address] [address] Unspecified atrial fibrillation (HRC) Social History Tobacco [...] Department Care Team Description 07/09/2023 11:40 AM TELEVISION RECEIVER ANALYZER Appointment [facility] Medicine [address] [place], [place] [address] [place] [address] [place] JOE Combs [id number] documented as of this encounter Visit Diagnoses Diagnosis Unspecified atrial fibrillation (HRC) documented in this encounter Care Teams Agricultural Purchasing Agent Relationship Specialty Start Date End Date Aleksey Smith MD [address] [place] [address] PCP - General 02/09/13 documented as of this encounter
--- OUTSIDE RECORDS SUMMARY | 2023-06-16 10:40 | XMS_ITS | Clinical Summary ---
Author Name Unknown Organization [facility] Address [address] [place] [address] Care Team Providers Care Artificial Stone Applicator Name Role Phone Aleksey Smith MD Primary Care Provider [phone]- [phone] Source Comments You are receiving this document as you are listed as the primary care provider,follow-up provider, or the patient has been referred to you for consultation.This is in compliance with the Medicare and[facility] Incentive Program,which states Providers who transition their patient to another setting of careor provider of care or refers their patient to another provider of care shouldprovide summary care record for each transition of care or referral. [facility] All[facility] Active Allergy Reactions Criticality Noted Date Comments Adhesive Rash 03/12/2017 Patient allergic to pressure tape or foam tape. Aspirin 05/18/2015 PN: anthony stomach Cephalexin Rash 03/14/2013 Erythromycin Rash 03/14/2013 Etodolac 03/11/2017 Macrolides And Ketolides Rash 03/12/2017 Patient unsure if she also had angioedema from these medications. Naproxen Rash 04/25/2009 Nsaids Other, see comments 07/03/2011 Pt had bariatric surgery, should not ever take oral NSAIDS due to risk of gastric ulcers. Penicillin G Procaine Other, see comments,Rash 07/21/2005 Penicillins Rash 03/14/2013 Sulfa Antibiotics Rash 03/14/2013 Sulfamethoxazole-Trimet hoprim Other, see comments,Rash 07/21/2005 Sulfanilamide Other, see comments Comment: Rash, Description: Tramadol Rash 05/18/2015 Medications Medication Sig Dispensed Refills Start Date End Date Status azelastine (ASTELIN) 0.1 % nasal solutionIndications :Vasomotor Rhinitis 1 [place] by Nasal route. Indications: Vasomotor Rhinitis 0 02/18/2016 Active simethicone (MYLICON) 125 MG chewable tabletIndications:F latulence Take 125 mg by mouth every 6 hours as needed. Indications: Gas 0 07/02/2016 Active fluticasone (FLONASE) 50 MCG/ACT nasal solutionIndications :Nasal Signs and Symptoms 2 Sprays by Nasal route two times a day. Indications: Signs and Symptoms of Nose Diseases 0 06/26/2016 Active blood glucose (TRUETEST TEST) test strip Dispense test strips covered by insurance 0 01/20/2016 Active Blood Glucose Monitoring Suppl (FIFTY50 GLUCOSE METER 2.0) W/DEVICE KIT Dispense meter, test strips, lancets covered by pt ins. E11.9 NIDDM type II - Test two times per week 0 09/15/2016 Active polyethylene glycol-propylene glycol (SYSTANE) 0.4-0.3 % eye drop solutionIndications :Xerophthalmia (Dry Eye) Place 1-2 Drops into both eyes three times a day as needed. Indications: Extremely Dry Eyes 0 05/06/2016 Active cyanocobalamin (BCXRMIJR59) 1000 MCG/ML injectionIndication s:Vitamin B12 Deficiency Inject 1,000 mcg intramuscularly every 30 days. Indications: Inadequate Vitamin B12 0 12/14/2016 Active triamcinolone acetonide (KENALOG) 0.1 % ointment Apply topically. 0 11/20/2016 Acti ve polyethylene glycol (MIRALAX) packetIndications:C onstipation Take 17 g by mouth daily. Indications: Constipation 0 09/25/2016 Active multivitamin (THERAGRAN) tabletIndications:s upplement Take 1 Tab by mouth daily. Indications: supplement 0 09/08/2016 Active tamsulosin (FLOMAX) 0.4 MG CAPS capsuleIndications: Urinary Frequency Take 0.4 mg by mouth daily. Indications: Urinary Frequency 0 Active ketoconazole (NIZORAL) 2 % shampooIndications: Seborrheic Dermatitis of Scalp Apply topically daily as needed. Indications: Dandruff 0 Active ALBUterol sulfate HFA 108 (90 BASE) MCG/ACT inhaler Inhale 1-2 Puffs every 4 hours as needed for Wheezing. 0 Active budesonide-formoter ol (SYMBICORT) 80-4.5 MCG/ACT inhalerIndications: Lung Health Inhale 2 Puffs two times a day. Rinse mouth/gargle after use. Indications: Lung Health 0 Active carisoprodol (SOMA) 350 MG tablet Take 350 mg by mouth three times a day as needed for Muscle Spasms. 0 Active calcium carbonate-vitamin D (OSCAL 500/200 D-3) 500-200 MG-UNIT per tablet Take 1 Tab by mouth two times a day with meals. 0 Active magnesium hydroxide (MILK OF MAGNESIA) 400 MG/5ML suspensionIndicatio ns:constipation Take 15-30 mL by mouth daily as needed for Constipation. Indications: constipation 0 Active cholecalciferol (VITAMIN D3) 1000 UNITS tabletIndications:s upplement Take 1,000 Units by mouth daily. Indications: supplement 0 Active senna (SENOKOT) 8.6 MG tabletIndications:C onstipation Take 1 Tab by mouth daily. Take while on narcotics. Hold for loose stools. Indications: Constipation 30 Tab 0 03/17/2017 Active acetaminophen (TYLENOL) 325 MG tabletIndications:P ain Take 2 Tabs by mouth 4 times a day. 24 hour limit of acetaminophen (TYLENOL) is 4000mg. Each tablet contains 325mg of acetaminophen. Please be aware of acetaminophen limit when taking other medications that contain acetaminophen. Indications: Pain 100 Tab 0 03/17/2017 Active amphetamine-dextroa mphetamine (ADDERALLXR) 30 MG 24 hour release capsuleIndications: Attention Deficit Hyperactivity Disorder Take 1 Cap by mouth daily. Indications: Attention Deficit Hyperactivity Disorder 30 Cap 0 03/17/2017 Active Additional Information Patient not taking.Reported on 12/29/2019 furosemide (LASIX) 40 MG tabletIndications:H ypertension Take 0.5 Tabs by mouth daily. Indications: High Blood Pressure Disorder 0 03/17/2017 Active sertraline (ZOLOFT) 100 MG tabletIndications:M ood Take 2 Tabs by mouth daily. Indications: Mood 30 Tab 0 03/17/2017 Active zolpidem (AMBIEN) 5 MG tabletIndications:I nsomnia Take 1 Tab by mouth daily at bedtime. Indications: Trouble Sleeping 15 Tab 0 03/17/2017 Active benzonatate (TESSALON) 100 MG capsule Take 1 Cap by mouth three times a day as needed for Cough. 30 Cap 0 03/26/2017 Active dextromethorphan-gu aifenesin (ROBITUSSIN-DM) 10-100 MG/5ML syrupIndications:Co ugh Take 10 mL by mouth every 4 hours as needed. Indications: Cough 236 mL 0 03/26/2017 Active hydrOXYzine pamoate (VISTARIL) 50 MG capsule Take 1 Cap by mouth three times a day as needed for Itching, Anxiety or Other (pain). 90 Cap 0 03/26/2017 Active ipratropium-albuter ol (DUONEB) 0.5-2.5 MG/3ML nebulizer solution Inhale 3 mL every 6 hours as needed. 60 Each 1 03/26/2017 Active pregabalin (LYRICA) 300 MG capsuleIndications: Neuropathic Pain Take 1 Cap by mouth two times a day. Indications: Neuropathic Pain 60 Cap 0 10/07/2017 Active oxyCODONE (ROXICODONE) 5 MG immediate release tablet Take 1-2 Tabs by mouth daily as needed for Pain (wean to off). Max 5 tablets/day. 5 Tab 0 10/30/2017 Active ammonium lactate (LAC-HYDRIN) 12 % lotion Apply topically. 0 07/19/2019 Active amiodarone (PACERONE) 200 MG tablet Take 200 mg by mouth. 0 02/07/2019 Act bisi ALMACONE II 400-400-40 MG/5ML suspension 0 09/19/2019 Active aluminum & magnesium hydroxide (ALAMAG) 200-200 MG/5ML suspension Take 30 mL by mouth. 0 Active apixaban (ELIQUIS) 5 MG tablet Take 5 mg by mouth. 0 02/07/2019 Acti ve atenolol (TENORMIN) 50 MG tablet Take 100 mg by mouth. 0 A ctive atorvastatin (LIPITOR) 40 MG tablet Take 40 mg by mouth. 0 01/13/2018 Acti ve Blood Gluc Meter Disp-Strips (SIDEKICK) Check blood sugar every Thursday and at rotating times Dispense item covered by pt ins. E11.65 NIDDM type II, controlled 0 06/06/2019 Active calcium carbonate (TITRALAC) 1250 MG/5ML One teaspoon once a day Indications: low amount of calcium in the blood 0 07/14/2017 Active chlorhexidine gluconate (PERIDEX) 0.12 % solution RINSE WITH ONE CAPFUL FOR 30 SECONDS TWICE DAILY 0 01/22/2019 Active diphenhydrAMINE (BENADRYL) 25 MG capsule Take 25 mg by mouth. 0 06/08/2019 Acti ve BANOPHEN 25 MG capsule 0 11/20/2019 Active estradiol (ESTRACE) 0.1 MG/GM vaginal cream Insert one gram into vagina twice a week. 0 08/20/2019 Active estrogens, conjugated (PREMARIN) 0.625 MG/GM vaginal cream INSERT ONE APPLICATORFUL INTO THE VAGINA AT BEDTIME TWICE A WEEK 0 05/26/2019 Active hydrocortisone 1 % ointment Apply topically. 0 06/29/2019 Active ibuprofen (MOTRIN) 600 MG tablet Take 600 mg by mouth. 0 03/14/2019 Active Incontinence Supply Disposable (DEPEND FITTED BRIEFS SM/MED) MISC For home use. Will use 2 per day. Size large. 0 04/28/2018 Active ONETOUCH DELICA lancets TEST 2 TIMES PER WEEK 0 07/19/2017 Act bisi Respiratory Therapy Supplies (AIRS DISPOSABLE NEBULIZER) For home use. Length of need: 12 months 0 03/16/2018 Active saline (SODIUM CHLORIDE) 0.65 % nasal solution by Nasal route. 0 01/25/2018 Activ e Sharps Container (VIVLZO-U-VRYKU LOCKING BRACKET) MISC Length: calf Strength: 16-20 mmHg Circumference in cm: For calf: Ankle 12, Calf 18.5 , Ankle to calf length 12 . 0 03/15/2018 Active SYRINGE-NEEDLE, DISP, 3 ML (3CC SAFETY SYRINGE 80FQ6-5/2) 21G X 1-1/2 3 ML As directed. 0 10/11/2019 Active terbinafine (LAMISIL) 1 % cream 0 11/23/2019 Activ e torsemide (DEMADEX) 20 MG tablet Take 40 mg by mouth. 0 02/08/2019 Ac tive Vaginal Lubricant (REPLENS) Insert one applicator into vagina every three days as needed for vaginal dryness 0 09/23/2019 Active pregabalin (LYRICA) 100 MG capsule Take by mouth. 0 Active sertraline (ZOLOFT) 100 MG tablet Take 100 mg by mouth. 0 Active zolpidem (AMBIEN) tablet Take 2.5 mg by mouth. 0 Act bisi Active Problems Problem Noted Date Diagnosed Date Status post replacement of left shoulder joint 1 ADHD 03/24/2017 Acute respiratory failure with hypoxia 7 Controlled type 2 diabetes m ellitus without complication, without long-term current use of insulin 03/12/2017 Essential hypertension 03/12/2017 Morbid obesity with BMI of 45.0-49.9, adult 03/01 S/P gastric bypass 03/12/2017 Bipolar 2 disorder 03/12/2017 Narcotic abuse 03/12/2017 Anxiety 03/12/2017 Major depressive disorder, r ecurrent, in remission, unspecified 03/12/2017 GERD (gastroesophageal reflux disease) 7 Mild persistent asthma 03/12/2017 Left glenohumeral DJD, advanced 01/22/2017 Chronic pain syndrome 12/31/2016 Immunizations Name Administration Dates Next Due Influenza IIV4 (Quadrivalent) 0.5mL (76680) 01/30 Social History Tobacco Use Types Packs/Day Years Used Date Smoking Tobacco: Every Day Cigarettes Smokeless Tobacco: Former Quit: 12/02/2014 Alcohol Use Standard Drinks/Week Comments Yes 0 (1 standard drink = 0.6 oz pure alcohol) occasional, one-two glass of wine monthly Sex and Gender Information Value Date Recorded Sex Assigned at Not on file Gender Identity Not on file Sexual Orientation Not on file Last Filed Vital Signs Vital Sign Reading Time Taken Comments Blood Pressure 133/84 03/27/2017 7:24 AM CDT Pulse 65 03/27/2017 7:24 AM CDT Temperature 36.8 ??C (98.2 ??F) 03/27/2017 7:24 AM CD T Respiratory Rate 18 03/27/2017 7:24 AM CDT Oxygen Saturation 97% 03/27/2017 7:24 AM CDT Inhaled Oxygen Concentration - - Weight 110.2 kg (242 lb 14.4 oz) 12/06/2019 9:17 AM CDT Height 157.5 cm (5' 2) 12/06/2019 9:17 AM CDT Body Mass Index 44.43 12/06/2019 9:17 AM CDT Plan of Treatment Upcoming Encounters Date Type Department Care Team Description 07/09/2023 11:40 AM STRAW HAT PRESSER Appointment [facility] [address] [place] [address] [place] [address] [place] [id number] Health Maintenance Due Date Last Done Comments Cervical Cancer Screening Due 1960 Colon Cancer Screening Plan Due 1960 Diabetes: Eye Exam 1960 Diabetes: Foot Exam 1960 Diabetes: Lipid Panel 1960 Diabetes: Urine Microalbumin 1960 Hep C Screening (Preventive Services) 1960 Mammogram 1960 COVID-19 Vaccine (#1) 1960 HIV Screening (Preventive Services) 1976 Pneumococcal (2 - PCV) 07/08/2002 07/08/2001 Zoster/Shingles (1 of 2) 01/23/2010 Diabetes: Creatinine 03/27/2018 03/27/2017, 03/26/2017, 03/25/2017, Additional history exists DTaP/Tdap/Td (2 - Tdap) 09/01/2021 09/02/2011, 07/25 Diabetes: HGBA1C 10/02/2021 07/05/2021, , 11/21/2019, Additional history exists Influenza (#1) 2023 03/18/2021, 03/01, 02/14/2019, Additional history exists Medicare Annual Wellness Visit 06/01/2023 HepA Aged Out No longer eligi ble based on patient's age to complete this topic HepB Aged Out No longer eligi ble based on patient's age to complete this topic Hib Aged Out No longer eligi ble based on patient's age to complete this topic IPV ([place]) Aged Out No longer eligi ble based on patient's age to complete this topic MCV4 Aged Out No longer eligi ble based on patient's age to complete this topic Advance Directives Latest Code Status on File Code Status Date Activated Date Inactivated Comments Full Code 03/12/2017 11:58 AM 03/27/2017 1:30 PM Care Teams Artificial Stone Applicator Relationship Specialty Start Date End Date Aleksey Smith MD [address] [place] [address] PCP - General 02/09/13
--- OUTSIDE RECORDS SUMMARY | 2023-06-16 10:40 | XMS_ITS | Encounter Summary ---
Author Name Unknown Organization [facility] Address [address] [place] [address] Care Team Providers Care Letter Sorting Machine Operator Name Role Phone Aleksey Smith MD Primary Care Provider [phone]- [phone] Encounter Details Date Type Department Care Team Description 02/28/2021 Lab Requisition [facility] [address] [place], [place] [id number] Azael Regan DO [address] [address] Unspecified atrial fibrillation (HRC) Social History Tobacco [...] Department Care Team Description 07/09/2023 11:40 AM HEEL MOLDER Appointment [facility] [address] [place], [place] [id number] [place] [address] [address] [place] [id number] documented as of this encounter Visit Diagnoses Diagnosis Unspecified atrial fibrillation (HRC) documented in this encounter Care Teams Letter Sorting Machine Operator Relationship Specialty Start Date End Date Aleksey Smith MD [address] [place] [address] PCP - General 02/09/13 documented as of this encounter
--- OUTSIDE RECORDS SUMMARY | 2023-06-16 10:41 | XMS_ITS | Encounter Summary ---
Author Name Unknown Organization [facility] Address [address] [place] [address] Care Team Providers Care Research Professional Name Role Phone Aleksey Smith MD Primary Care Provider [phone]- [phone] Encounter Details Date Type Department Care Team Description 2020 Lab Requisition [facility] [address] [facility] [place], [place] [id number] [place] [address] [place] [address] [id number] Neoplasm of uncertain behavior of urethra Social History Tobacco Use Types Packs/Day Years [...] Department Care Team Description 07/09/2023 11:40 AM TRANSMISSION DESIGN ENGINEER Appointment [facility] [address] [place] [address] [place] [address] [place] [address] documented as of this encounter Visit Diagnoses Diagnosis Neoplasm of uncertain behavior of urethra Neoplasm of uncertain behavior of other and unspecified urinary organs documented in this encounter Care Teams Research Professional Relationship Specialty Start Date End Date Aleksey Smith MD [address] [place] [address] PCP - General 02/09/13 documented as of this encounter
--- OUTSIDE RECORDS SUMMARY | 2023-06-16 10:41 | XMS_ITS | Encounter Summary ---
Author Name Unknown Organization [facility] Address [address] [place] [address] Care Team Providers Care Stationary Fireman Name Role Phone Aleksey Smith MD Primary Care Provider [phone]- [phone] Encounter Details Date Type Department Care Team Description 02/07/2003 [facility] Duglas Murray MD [address] [place] [id number] BRIEF PSYCHOTIC DISORDER; AMPHETAMINE ABUSE UNSPECIFIED; SPECIAL SYMPTOM NEC/NOS; PERS HX OF PAST NONCOMPLIANCE Social History Tobacco Use Types Packs/Day Years [...] on file documented as of this encounter Discharge Summaries * Champ Christianson - 02/07/2003 12:00 AM CDTREVISED ADDENDUM: Additional discharge plan information, the patient's outpatient psychiatric medication management follow up at [facility] in [place], has been set for 02/22/2003, at 11:[address] Berkowitz. Cfp PATIENT IDENTIFICATION: The patient presents as a 43-year-old female admitted via [facility] emergency department on 02/07/03. The patient presents with continual symptoms of psychosis, not taking current medications, history of treatment for psychosis. She originally presented to [facility]. Per the patient's brother, the patient had been quite paranoid, hearing voices stating you're . She has been fearful that people are after her. She has been using methamphetamine and alcohol. Please refer to the typed admission history and physical examination dated 02/07/03 for the following sections: history of presenting illness, past psychiatric history, past medical history, drug allergies, current medications, review of systems, family history, social history, admission physical examination, admission mental status examination, and admission laboratory data. HOSPITAL COURSE: The patient is admitted to [address] on 02/07/03 via the emergency department. She originally presented at the [facility] urgent [facility]. She has been paranoid, fearing that people are after her, having auditory hallucinations, specifically whispers stating you're . Current methamphetamine use and alcohol consumption when using methamphetamine. She reports ongoing depressed mood for over 3 years since her was imprisoned and her father and brother . She also cites paranoia, worsening recently. Risperdal had been started approximately 10 days prior to admission by a psychiatrist in [place], but compliance has been poor. She denies medical problems but does admit to hypertension. She has not been working since October but looking for a job. Medications are ordered, including Zoloft and Seroquel. Lasix and atenolol are also ordered. A chemical dependency evaluation is ordered, with consequent recommendations for chemical dependency treatment at [facility] post discharge from the hospital. The patient is using Seroquel as a p.r.n. She initially refuses to go to groups because of a stomachache. She is still having paranoia. She says that someone outside may be trying to get her. She is willing to continue medication. She eventually agrees to go to hospital programming groups. She does deny suicidality and/or homicidality. She does deny much methamphetamine use. A brother reports that he is not convinced that she will remain clean and sober. He states that she will do anything she can get to get out of the hospital. Discussions via the psychiatric examiner with family reveal a long history of substance use leading to psychosis. Her problems has always been secondary to drug usage and she would be okay when clean, but she always relapses. They are invested in helping. Zoloft is increased. Seroquel as a p.r.n. is increased. As her course of stay continues, she reports her mood as good. She feels anxious about getting a number of things done prior to discharge. Scheduled passes are ordered. As her course of stay continues, coping skills and anger management as well as overall agitation are improving. The patient is using Seroquel p.r.n. Sleep is improved. She has good judgment regarding chemical dependency treatment follow up. Topamax is added to the medication regime as of 02/13/03. At times, she sits at the edge of groups without participating. By 02/14/03, the patient reports her mood as hopeful. Her affect has full range. She denies suicidality and/or homicidality. She has sustained attention, goal-directed through process. She feels good about discharge to [facility] on this date. She has been very reasonable on the unit, getting clean, arranging her own followup appointments, less hostile, interacting with family members. On 02/14/03, the patient's discharge is approved. She will be entering chemical dependency at [facility] to have outpatient psychiatric medication management follow up via an [facility] behavioral health clinic in [place]. The patient is arranging this follow up. DISCHARGE DIAGNOSIS [place] I: Major depressive disorder. Polysubstance chemical dependency. [place] II: Borderline personality disorder. [place] III: History of hypertension, status post gastric bypass in August 2002. [place] IV: Moderate psychosocial stressors. [place] V: Global assessment of functioning is 51/100. As noted on the date of discharge, the patient denies any auditory hallucinations. No delusions. No paranoia. DISCHARGE MEDICATIONS: Seroquel 200 mg p.o. q.h.s. Seroquel 25 mg to 50 mg p.o. q.i.d. p.r.n. Topamax 25 mg p.o. q.h.s. Zoloft 50 mg p.o. q.a.m. Atenolol 25 mg p.o. q.d. Lasix 20 mg p.o. q.d. Vitamin B12 injection every month. Metamucil 1 scoop in water p.o. q.d. DISCHARGE PLAN: The patient is approved for discharge from [address] on 02/14/03. She will be entering chemical dependency treatment at [facility] on the date of discharge. She will have outpatient psychiatric medication management and outpatient therapy follow up via an [facility] health clinic at [place]. The patient is arranging this followup appointment herself. An addendum will be done to the discharge summary if the patient is able to give the name of the clinic for follow up prior to her discharge. llc Dictated: 02/14/2003 09:02:06 Champ Christianson MA, LP Transcribed: 02/14/2003 09:12:52 Staff: Duglas Murray MD Doc #: [id number] cc: Duglas Murray MD - [facility] Patient Name: BRANDEE GARCES DISCHARGE SUMMARY CONFIDENTIAL MEDICAL RECORD [address] [address] Page 1 Patient: BRANDEE GARCES Location: [facility] HPN: Admit Date: 02/07/2003 Date of : 1960 Discharge Date: 02/14/2003 DISCHARGE SUMMARY documented in this encounter OR Notes * H&P - Champ Christianson - 02/07/2003 12:00 AM CDTREVISED ADDENDUM ADDITIONAL HISTORY OF PRESENT ILLNESS INFORMATION: The patient reports ongoing depressed mood for over 3 years, since her was imprisoned and father/brother . Also, cites paranoia, worsening recently. Denies using crack. Admits to one bump of cocaine. Risperdal had been started approximately 10 days ago by psychiatrist in [place], but compliance poor. Denies current medical problems, but does admit to hypertension. Not working since October, but looking for a job. Wants to be able to cope. ADMISSION DIAGNOSES [place] I. Depression, not otherwise specified. 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 History of polysubstance abuse. Rule out panic disorder. [place] II. Deferred. [place] III. History of hypertension. Status post gastric bypass 08/2002. [place] IV. Moderate psychosocial stressors. [place] V. Overall Global Assessment of Functioning 25 out of 100. ADMISSION PHYSICAL EXAMINATION: Remarkable for signs of peeling secondary to sunburn on skin examination. Strength 4/5 lower extremities and 5/5 upper extremities. ADDITIONAL ASSESSMENT INFORMATION: Need to discriminate between psychotic depression and substance induced psychosis. The patient is currently evasive about substance usage. ADDITIONAL PLAN INFORMATION: Medications are ordered including Zoloft and Seroquel. Hypertension medications to begin. Chemical dependency consultation is ordered. [id number] [facility] HISTORY/PRESENTING ILLNESS: The patient presents as a 43-year-old female admitted via [facility] Emergency Department on 02/07/2003. Patient presents with continual symptoms of psychosis, not taking current medications, history of treatment for psychosis. Blood alcohol level in the emergency department was 0.1. Patient originally presented to [facility]. Per patient's brother, the patient has been quite paranoid, hearing voices, stating you're . She has been fearful that people are after her. She has a history of alcohol and cocaine usage, as well as methamphetamine usage. The most current use includes methamphetamine and alcohol. She has been hearing voices. Risperdal apparently was started 11/2 weeks ago. The patient has had variable consistency with taking this medication. She had alcohol use prior to this admission. She does report some depression, disturbed sleep, decreased appetite, decreased concentration and feelings of hopelessness, as well as lowered self-esteem. She denies any anhedonia. She denies any suicidal ideation. She denies homicidality. No past history for suicide attempts, no self-injurious behavior, no manic episodes. She does report current feelings of generalized anxiety. She reports panic attacks one time a day for the past month with the following symptomatology: Heart racing, chest pounding, and shortness of breath. She denies a history of physical and/or sexual trauma. As noted, she does report positive auditory hallucinations, whispers stating you're , and paranoia, fearful that people are after her. She denies a history of eating disorder symptomatology, obsessions and/or compulsions. Substance of choice is methamphetamines. She states that she dabbles in her usage, if someone has a line then she will use. The most recent use was a line this past Thursday. She has a remote history of cocaine usage greater than 10 years ago. Variable alcohol usage, especially when using methamphetamine, history of DWI 10+ years ago. No apparent history for withdrawal seizures, tremors, hallucinations, and/or delirium tremens related to chemical usage. She had one chemical dependency treatment in [place] 5-6 years ago as an inpatient x 28 days. PAST PSYCHIATRIC HISTORY: She has seen a psychiatrist in [place], but does not remember the name. She does not have a current therapist. She was at [facility], hospitalized psychiatrically 5-6 years ago, most recently on [facility] from 06/25/2001 to 06/30/2001 with a diagnosis of psychosis, not otherwise specified, and amphetamine dependence. No history for ECT. Past medications have included Neurontin, atenolol, Lasix, and albuterol inhaler. PAST MEDICAL HISTORY: She cites the [facility] as her outpatient provider. She has been on Meridia and Xenical for obesity. She is status post gastric bypass in 08/2002. There is a history of asthma, currently stable. History of gastritis. No history for fractures and/or head injuries. History of hypertension. She has had four pregnancies and four live childbirths. DRUG ALLERGIES: PENICILLIN, ERYTHROMYCIN AND KEFLEX. CURRENT MEDICATIONS: Risperdal, she states that she has been taking 1 tab a day of variable consistency for the past 1+ week. She was given Haldol 5 mg and Ativan 2 mg at the [facility] prior to admission. The Risperdal was prescribed by a psychiatrist at [place]. Nonprescription medications/dietary supplements: None. REVIEW OF SYSTEMS: Remarkable for a history of gastritis. Remarkable for a history of asthma, currently stable. Status post gastric bypass in 08/2002. FAMILY HISTORY: Unremarkable except for a history of diabetes and hypertension in the family. SOCIAL HISTORY: Patient is the 3rd out of 6 children. She has 3 brothers and 2 sisters. She was raised in [place], [place], by her parents. Her father of a myocardial infarction in 01/2000. She is a high school graduate with one year of [employer] training. She is unemployed. She is a heterosexual, x 6 years. She has four children, a son age 19, three daughters, ages 27, 15, and 13. No current relationship. Her oldest daughter has her two youngest daughters. Her son lives on his own. She currently rents a duplex. She receives no case management services. She reports no legal problems. She has never been jailed and/or imprisoned. She has never served in the . She denies ownership of and/or access to any firearms, guns, and/or weapons. She states that she likes to do crafts for leisure activity. ADMISSION MENTAL STATUS EXAMINATION: The patient appears older than her stated age, slightly disheveled, dressed in hospital garb. She appears as a reliable historian. She is engagable, cooperative, psychomotor activities are within normal limits. There is no evidence for any involuntary movements, her affect is sad. Thought, attention, and processing appear intact with somewhat slowed thought processing. Speech production is regular rate and rhythm, soft tone. She does present with auditory hallucinations, whispers the saying you're , and paranoia, fearful that others are after her. Speech content is appropriate to questions asked. She denies suicidality. She denies homicidality. Insight and judgment appear fair. Cognition appears grossly intact. She scores 2 out of 3 in overall item recall. She scores 25 out of 29 overall on the mini mental status examination. Admission physical examination is pending. LABORATORY DATA: Admission labs: BUN decreased at 3, potassium decreased at 3.2, chloride elevated at 107, carbon dioxide decreased at 21. ASSESSMENT: This is the second [facility] psychiatric admission for this 43-year-old female, most recently at [address] from 06/25/2001 to 06/30/2001 with diagnoses of psychosis, not otherwise specified, and amphetamine dependence. She currently presents via [facility] Emergency Department, originally presenting at the [facility]. Patient has been paranoid, fearing that people are after her, positive auditory hallucinations, specifically whispers stating you're . She has a remote history of cocaine usage, current methamphetamine use, and alcohol consumption when using methamphetamines. She has been seeing at times a psychiatrist in [place], most currently on Risperdal in the past 11/2 weeks. Patient did use alcohol prior to her admission. She is voluntary. PLAN: The patient is admitting to [address] Routine safety precautions have been placed and will be discontinued as appropriate. Routine labs and psychological testing will be done. Patient education is done with regards to [place] expectations, differential diagnosis and treatment options. Risks, benefits, and side effects of medications are reviewed with her. mf/trayf Dictated: 02/07/2003 08:03:00 Champ Christianson MA, MATY Transcribed: 02/07/2003 10:34:13 Duglas Murray MD Doc #: [id number] cc: Duglas Murray MD 2 Page 2 Patient Name: BRANDEE GARCES HISTORY & PHYSICAL CONFIDENTIAL MEDICAL RECORD [address] [address] Page 1 Patient: BRANDEE GARCES Location: [facility] HPN: Admit Date: 02/07/2003 Date of : 1960 HISTORY & PHYSICAL documented in this encounter ED Notes * Rhett Fink - 02/07/2003 12:00 AM CDTLog Number: [id number] COMPLAINT: Agitated. HISTORY OF PRESENT ILLNESS: The patient is a 43-year-old female who presented to the [facility] with paranoid behavior and agitated. She received Ativan, Benadryl and Haldol. The primary doctor there contacted the family. They state a multiple street drug history and previous psychiatric history, hospitalization 3-4 months ago. The patient currently is somnolent on my evaluation but is arousable. He has normal vital signs. She denies any suicidal attempt, no drug ingestions. She also denies any chemical drug use. States she drank a lot of 3/2 beer today. Blood sugar is 130. PAST MEDICAL HISTORY: Unknown. MEDICATIONS: Risperdal, Benadryl, Haldol and Ativan prior to arrival. ALLERGIES: PENICILLIN, ERYTHROMYCIN, KEFLEX. SOCIAL HISTORY, FAMILY HISTORY, REVIEW OF SYSTEMS: Refer to emergency department shingle. PHYSICAL EXAMINATION: VITAL SIGNS: Blood pressure 120/61, pulse of 95, respirations 22, temperature is 97.8 orally. GENERAL: Alert, oriented female when you arouse her, but in no apparent distress. HEENT: Pupils are equal, round and reactive to light at 3 mm. Mucous membranes are moist. LUNGS: Clear. HEART: S1 and S2 , no murmur. ABDOMEN: Soft, nontender. No signs of trauma. EXTREMITIES: No trauma, no bony tenderness. NEUROLOGIC: Cranial nerves II-XII are grossly intact. No focal motor or sensory deficit. She is somewhat somnolent and sleepy on my examination. She has poor insight. She is not suicidal or homicidal. EMERGENCY DEPARTMENT COURSE AND TREATMENT MANAGEMENT: I contacted [facility] who sent the patient here. The physician there states that the patient was acutely psychotic on arrival. She came with her daughters who brought her in. She has had a history of similar episodes due to amphetamine abuse here at [facility] on 06/2001. The patient also had an episode in the medical records library professor rig of outburst of psychosis. On arrival here she has been somewhat somnolent. She is arousable at the time of admission. She is able to walk and she is alert and oriented. Will go ahead and admit her to the hospital for further evaluation as she has been on some antipsychotic medications in the past and according to the family and the foster care social worker I talked to, has not been taking them. The U-tox is positive for amphetamines. ADMISSION DIAGNOSES: 1. Psychosis NOS. 2. [place]hetamine abuse[place] [facility] [place] Dictated: 02/07/2003 06:55:19 Rhett Fink MD Transcribed: 02/07/2003 13:13:48 Staff: Doc #: [id number] cc: Duglas Murray MD Attending Page 2 Patient Name: BRANDEE GARCES Visit Date: 02/07/2003 EMERGENCY MEDICINE NOTE CONFIDENTIAL MEDICAL RECORD [address] [id number] Page 1 Patient: BRANDEE GARCES Location: 5 HPN: Date of : 1960 Visit Date: 02/07/2003 EMERGENCY MEDICINE NOTE documented in this encounter Plan of Treatment Upcoming Encounters Date Type Department Care Team Description 07/09/2023 11:40 AM INDUSTRIAL DESIGN INTERN Appointment [address] [address] [place] [address] [place] JOE Combs [id number] documented as of this encounter Visit Diagnoses Diagnosis Other and unspecified reactive psychosis Nondependent amphetamine or related acting sympathomimetic abuse, unspecified Other and unspecified special symptom or syndrome, not elsewhere classified Personal history of noncompliance with medical treatment, presenting hazards to health documented in this encounter Care Teams Stationary Fireman Relationship Specialty Start Date End Date Aleksey Smith MD [address] [place] [address] PCP - General 02/09/13 documented as of this encounter
--- OUTSIDE RECORDS SUMMARY | 2023-06-16 10:41 | XMS_ITS | Encounter Summary ---
Author Name Unknown Organization [facility] Address [address] [place] [address] Care Team Providers Care Human Resources Records Clerk Name Role Phone Aleksey Smith MD Primary Care Provider +1- [phone] Encounter Details Date Type Department Care Team Description 10/01/2020 Lab Requisition [facility] [address] [place] [address] Azael Regan DO [address] [address] Personal history of transient ischemic attack (TIA), and cerebral infarction without residual deficits Discharge Disposition: Home Social History Tobacco Use [...] Department Care Team Description 07/09/2023 11:40 AM CATECHIST Appointment [facility] [address] [place] [address] [place] [address] [place] [id number] documented as of this encounter Procedures Procedure Name Priority Date/Time Associated Diagnosis Comments INR/PROTIME Routine 10/02/2020 9:30 AM CDT Personal history of transient ischemic attack (TIA), and cerebral infarction without residual deficits documented in this encounter Results * (ABNORMAL) INR/Protime (10/02/2020 9:30 AM CDT) Protime 21.2(H) 11.8 - 14.6 Seconds 10/02/2020 12:30 PM CDT [facility] INR 1.9(H) 0.9 - 1.1 10/02/2020 12:30 PM CDT [facility] Blood Venipuncture / Unknown 10/02/2020 9:30 AM CDT 10/02/2020 11:56 AM CDT Narrative [facility] - 10/02/2020 12:30 PM CDT Therapeutic range determined by protocol established by anticoagulation provider. Azael Regan DO LAB_1 [facility] [address] documented in this encounter Visit Diagnoses Diagnosis Personal history of transient ischemic attack (TIA), and cerebral infarction without residual deficits documented in this encounter Care Teams Human Resources Records Clerk Relationship Specialty Start Date End Date Aleksey Smith MD [address] [place] [address] PCP - General 02/09/13 documented as of this encounter
--- OUTSIDE RECORDS SUMMARY | 2023-06-16 10:41 | XMS_ITS | Encounter Summary ---
Author Name Unknown Organization [facility] Address [address] [place] [address] Care Team Providers Care Coordinate Measuring Machine Technician Name Role Phone Aleksey Smith MD Primary Care Provider [phone]- [phone] Encounter Details Date Type Department Care Team Description 12/16/2020 Lab Requisition [facility] [address] [place], [place] [address] Farshad Lopez MD [address] [facility] [address] [place] [id number] Acute embolism and thrombosis of unspecified deep veins of right lower extremity (HRC) Social History Tobacco Use Types Packs/Day [...] Department Care Team Description 07/09/2023 11:40 AM PARTNER ALLIANCE MANAGER Appointment [facility] [address] [place], [place] [address] Mehrdad [place]rez, [place] [id number] [place] [address] [place] [id number] documented as of this encounter Visit Diagnoses Diagnosis Acute embolism and thrombosis of unspecified deep veins of right lower extremity (HRC) documented in this encounter Care Teams Coordinate Measuring Machine Technician Relationship Specialty Start Date End Date Aleksey Smith MD [address] [place] [address] PCP - General 02/09/13 documented as of this encounter
--- OUTSIDE RECORDS SUMMARY | 2023-06-16 10:43 | XMS_ITS | Continuity of Care Document ---
Author Name Unknown Organization [facility] Address [address] [place] [address] Phone Care Team Providers Care Dehydration Plant Operator Name Role Phone Echo BOLES MD, Montserrat [...] mg tablet - Active Nasonex 50 mcg/actuation Wallagrass spray 2 spray by intranasal route every [...] Date Provider Providers Copied on Encounter [facility] [place], [address], [place], [address], [place] tel:[phone] [facility] [place] Other spondylosis, lumbar regionOther spondylosis, lumbosacral region -201 5 Echo Mariano. [address] [place], [address] [facility], [place], [address]. tel:[phone] Referring Provider: Montserrat Dodge MD, [address] [place] [address] [facility], [place], [address]. tel:[phone] [facility], [facility], [address], [place], [place], [id number], [place] tel:[phone] [facility] [place] No Information 5 Echo Mariano. [address] [place], [address] [facility], [place], [address]. tel:[phone] Referring Provider: Azael Regan DO, [place], [address]. tel:[phone] [facility], [address], [place], [address], [place] tel:[phone] [facility] [place] Spondylosis without myelopathy or radiculopathy , lumbar regionSpondyl osis without myelopathy or radiculopathy , lumbosacral region 5 Echo Mariano. [address] [place], [address] [facility], [place], [address]. tel:[phone] Referring Provider: Montserrat Dodge MD, [address] [place] [address] [facility], [place], [address]. tel:[phone] [facility], [address], [place], [place], [id number], [place] tel:[phone] [facility] [place] No Information 5 Echo Mariano. [address] [place], [address] [facility], [place], [address]. tel:[phone] Referring Provider: Maureen [place], [place], [address]. tel:[phone] [facility], [facility], [address], [place], [place], [id number], [place] tel:[phone] [facility] No Information Jan- 5 Brigida Hays. [address], [place], [place], [id number], [place]. tel:[phone] Referring Provider: Azael Regan DO, [address], [place], [address]. tel:[phone] [facility], [address], [place], [address], [place] tel:[phone] [facility] [place] No Information 5 Echo Mariano. [address] [place], [address] [facility], [place], [address]. tel:[phone] Referring Provider: Montserrat Dodge MD, [address] [place] [address] [facility], [place], [address]. tel:[phone] [facility] [place], [address], [place], [address], [place] tel:[phone] [facility] [place] No Information Dec- 5 Echo Mariano. [address] [place], [address] [facility], [place], [address]. tel:[phone] Referring Provider: Montserrat Dodge MD, [address] [place] [address] [facility], [place], [address]. tel:[phone] [facility], [facility], [address], [place], [place], [id number], [place] tel:[phone] [facility] [place] No Information 5 Echo Mariano. [address] [place], [address] [facility], [place], [address]. tel:[phone] Referring Provider: Azael Regan DO, [place], [address]. tel:[phone] [facility], [address], [place], [address], [place] tel:[phone] [facility] [place] No Information 5 Echo Mariano. [address] [place], [address] [facility], [place], [address]. tel:[phone] Referring Provider: Montserrat Dodge MD, [address] [place] [address] [facility], [place], [address]. tel:[phone] [facility], [facility], [address], [place], [place], [id number], [place] tel:[phone] [facility] [place] No Information 5 Echo Mariano. [address] [place], [address] [facility], [place], [address]. tel:[phone] Referring Provider: Maureen [place], [place], [address]. tel:[phone] New Pt Eval 45 Min [facility], [facility], [address], [place], [place], [id number], [place] tel:[phone] [facility] No Information 5 Echo Mariano. [address] [place], [address] [facility], [place], [address]. tel:[phone] Referring Provider: Maureen [place], [place], [address]. tel:[phone] [facility], [address], [place], [place], [id number], [place] tel:[phone] [facility] No Information 4 Shravan Arguello. [address] [place], [address], [place]. Family History Family Member Type Diagnosis Age At Onset N/A Problem (finding) No Significant Family H istory Payers Payer name Insurance type Covered green party ID Authoreneida aaron(s) [employer] O [id number] Social History Type Description Quantity Date Captured [...]
--- OUTSIDE RECORDS SUMMARY | 2023-06-16 10:44 | XMS_ITS | Clinical Summary ---
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 10:52 AM CDT Pulse 80 01/16/2022 10:52 AM CDT Temperature 36.2 ??C (97.2 ??F) 08/29/2021 2:11 PM CD T Respiratory Rate 16 08/08/2021 11:59 AM SPINAL SURGEON Oxygen Saturation 96% 08/29/2021 2:11 PM CDT Inhaled Oxygen Concentration - - Weight 103 kg (227 lb) 07/04/2022 7:59 AM SPINAL SURGEON Height 154.3 cm (5' 0.75) 07/04/2022 7:59 AM CS T Body Mass Index 43.25 07/04/2022 7:59 AM SPINAL SURGEON Plan of Treatment Health Maintenance Due Date Last Done Comments Pneumococcal series for age 6-64 (2 of 2 - PCV) 07/08/2002 07/08/2001 Zoster (shingles) series for age 50+ (1 of 2) 01/23/2010 Mammogram for age 45-75 07/29/2020 07/29/19 20, 03/05/2018, 03/22/2015, Additional history exists Tetanus booster 09/28/2021 09/29/2011, 04/0 07/2011, 07/25/2006, Additional history exists Depression screening for age 12+ 12/21/2022 12/21/2021, 12/19/2021, 12/19/2021, Additional history exists COVID-19 vaccine series (2022- season) 2023 04/09/2022, 07/16/2020, 06/18/2020 Influenza for age 50-64 01/30/2023 03/18/20, 03/12/2020, 02/14/2019, Additional history exists BMI (ht and wt on same day) for age 18+ 07/04/2023 07/04/2022, 01/16/2022, 12/18/2021, Additional history exists Lipids for age 45-75 11/20/2024 11/21/2019, 06/06/2019, 11/05/2015, Additional history exists Colonoscopy through age 75 03/26/2025 03/26/2015, Hepatitis C screening for ag e 18-79 Completed 07/11/2005, 08/01/2002 Tdap Completed 09/02/2011 HIV for age 15-65 Completed 09/06/2015 Medical Devices Implanted Type Area Refractory Technician Device Identifier Shelf Expiration Date Model / Serial / Lot Aftab Lmdanny 70x5.5mm [facility] 3d Cvd Titnm - [id number] Implanted:Qty: 2 on 02/26/2016 by Homar Morrow MD at [facility] Spine Implants N/A: Lumbar Vertebrae Medtronic Spine/Ortho [id number]# / / Bone 60cc Mtf Crushed Canclls Frozen - [id number] Implanted:Qty: 1 on 02/26/2016 by Homar Morrow MD at [facility] N/A: Lumbar Vertebrae Musculoskeletal Transplant 08/14/2019 [id number]# / [id number] / Cnnctr Alissa Leger Ts 3dx Offsettitnm - [id number] Implanted:Qty: 1 on 02/26/2016 by Homar Morrow MD at [facility] N/A: Lumbar Vertebrae Medtronic Spine/Ortho [id number]# / / Spacer Lmbr [id number] Capstone Tlif Titnm Coating - [id number] Implanted:Qty: 1 on 02/26/2016 by Homar Morrow MD at [facility] N/A: Lumbar Vertebrae Medtronic Spine/Ortho 07/03/2023 [id number]# / / [id number] Bone Matrix 6cc Karin Dbf Putty Dbm - [id number] Implanted:Qty: 1 on 02/26/2016 by Homar Morrow MD at [facility] N/A: Lumbar Vertebrae Medtronic Spine/Ortho 01/14/2018 [id number]# / [id number] / Bone Matrix 6cc [place] Dbf Putty Dbm - [id number] Implanted:Qty: 1 on 02/26/2016 by Homar Morrow MD at [facility] N/A: Lumbar Vertebrae Medtronic Spine/Ortho 2018 [id number]# / [id number] / Spacer Lmbr 01j43ht Capstone Tlif Titnm Coating - [id number] Implanted:Qty: 1 on 02/26/2016 by Homar Morrow MD at [facility] N/A: Lumbar Vertebrae Medtronic Spine/Ortho 06/09/2023 [id number]# / / [id number] Set Screw Lmbr Tsrh 3dx - [id number] Implanted:Qty: 6 on 02/26/2016 by Homar Morrow MD at [facility] N/A: Lumbar Vertebrae Medtronic Spine/Ortho [id number]# / / Cnnctr Lmbr Sm Tsrh 3dx Offsettitnm - [id number] Implanted:Qty: 5 on 02/26/2016 by Homar Morrow MD at [facility] N/A: Lumbar Vertebrae Medtronic Spine/Ortho [id number]# / / Bone 1-4mm 60cc Medtronic Chips Canclls Frozen - [id number] Implanted:Qty: 1 on 08/24/2017 by Homar Morrow MD at [facility] N/A: Lumbar Vertebrae Medtronic Spine/Ortho 04/15/2022 [id number]# / [id number] / Bone Matrix Lg Ii Infuse Bmp - [id number] Implanted:Qty: 1 on 08/24/2017 by Homar Morrow MD at [facility] N/A: Lumbar Vertebrae Medtronic Spine/Ortho [id number]# / / [id number] Bone Matrix 10cc Mastergraft Putty Dbm - [id number] Implanted:Qty: 1 on 08/24/2017 by Homar Morrow MD at [facility] N/A: Lumbar Vertebrae Medtronic Spine/Ortho 12/29/2020 [id number]# / / [id number] Spacer Lmbr Lg 16mm 8deg Perimeter Alif Peek - [id number] Implanted:Qty: 1 on 08/24/2017 by Homar Morrow MD at [facility] N/A: Lumbar Vertebrae Medtronic Spine/Ortho 11/20/2018 [id number]# / / [id number] Spacer Lmbr Lg 14mm 8deg Perimeter Alif Peek - [id number] Implanted:Qty: 1 on 08/24/2017 by Homar Morrow MD at [facility] N/A: Lumbar Vertebrae Medtronic Spine/Ortho 11/20/2023 [id number]# / / [id number] Spacer Lmbr Lg 14mm 8deg Perimeter Alif Peek - [id number] Implanted:Qty: 1 on 08/24/2017 by Homar Morrow MD at [facility] N/A: Lumbar Vertebrae Medtronic Spine/Ortho 03/08/2021 [id number]# / / [id number] Washer 17mm - [id number] Implanted:Qty: 1 on 08/24/2017 by Homar Morrow MD at [facility] N/A: Lumbar Vertebrae Medtronic Spine/Ortho [id number]# / / Screw Lmbr Ant 6.5x25mm Pyramid Plus Va - [id number] Implanted:Qty: 1 on 08/24/2017 by Homar Morrow MD at [facility] N/A: Lumbar Vertebrae Medtronic Spine/Ortho [id number] # / / Screw Lmbr Post 8.5x45mm Tsrh 3dx Og Thin Va - [id number] Implanted:Qty: 2 on 08/24/2017 by Homar Morrow MD at [facility] N/A: Lumbar Vertebrae Medtronic Spine/Ortho [id number] # / / Screw Lmbr Post 7.5x45mm Tsrh 3dx Og Thin Va - [id number] Implanted:Qty: 4 on 08/24/2017 by Homar Morrow MD at [facility] N/A: Lumbar Vertebrae Medtronic Spine/Ortho [id number] # / / Screw Lmbr Post 6.5x45mm Tsrh 3dx Og Thin Va - [id number] Implanted:Qty: 2 on 08/24/2017 by Homar Morrow MD at [facility] N/A: Lumbar Vertebrae Medtronic Spine/Ortho [id number] # / / Cnnctr Lmbr Tsrh 3dx Offsettitnm - [id number] Implanted:Qty: 7 on 08/24/2017 by Homar Morrow MD at [facility] N/A: Lumbar Vertebrae Medtronic Spine/Ortho [id number]# / / Cnnctr Lmbr Az Tsrh 3dx Offsettitnm - [id number] Implanted:Qty: 1 on 08/24/2017 by oHmar Morrow MD at [facility] N/A: Lumbar Vertebrae Medtronic Spine/Ortho [id number]# / / Aftab Lmbr 90x5.5mm Tsrh 3d Cvd Titnm - [id number] Implanted:Qty: 2 on 08/24/2017 by Homar Morrow MD at [facility] N/A: Lumbar Vertebrae Medtronic Spine/Ortho [id number]# / / Set Screw Lmbr Tsrh 3dx - [id number] Implanted:Qty: 8 on 08/24/2017 by Homar Morrow MD at [facility] N/A: Lumbar Vertebrae Medtronic Spine/Ortho [id number]# / / Explanted Type Area Refractory Technician Device Identifier Shelf Expiration Date Model / Serial / Lot Screw Lmbr Post 6.5x45mm Tsrh 3dx Og Thin Va - [id number] Implanted:Qty : 4 on 02/26/2016 by Homar Morrow MD at [facility] Explanted:Qty : 4 on 08/24/2017 at [facility] N/A: Lumbar Vertebrae Medtronic Spine/Ortho [id number]# / / Screw Lmbr Post 7.5x45mm Tsrh 3dx Og Thin Va - [id number] Implanted:Qty : 2 on 02/26/2016 by Homar Morrow MD at [facility] Explanted:Qty : 2 on 08/24/2017 at [facility] N/A: Lumbar Vertebrae Medtronic Spine/Ortho [id number]# / / Advance Directives Documents on File Type Date Recorded 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 POLST 03/27/2020 2:38 PM Latest Code Status on File Code Status Date Activated Date Inactivated Comments Full Code 09/25/2020 10:17 PM 09/28/2020 3:55 PM Question Answer Comments Code Status Discussion: Discussed Code Status History Code Status Date Activated Date Inactivated Comments Full Code 08/26/2017 4:54 PM 09/01/2017 1:33 PM Question Answer Comments Code Status Discussion: Per Existing Order Full Code 08/24/2017 7:53 AM 08/24/2017 7:40 PM Question Answer Comments Code Status Discussion: Not Discussed Full Code 07/14/2016 9:43 PM 07/16/2016 1:53 PM Full Code 02/26/2016 6:02 PM 03/03/2016 1:15 PM Care Teams Information Technology Administrator Relationship Specialty Start Date End Date Aleksey Smith MD [address] [place] [id number] PCP - General Internal Medicine 01/02/22 Celia Kumar MD [address] [place] [id number] Plastic and Reconstructive Surgery 10/31/19 Shi Ware RN [address] [address] Registered Nurse 06/12/20 Gricelda Meredith, ANDREINA [address] [place] [id number] Consulting Physician Nurse Practitioner - Adult 06/12/20 Minoo Hugo CNS [address] [place] [address] Nurse Practitioner Clinical Nurse Specialist 09/06/20 Amparo Dawson, LAKHWINDER [address] [place] [address] Registered Dietitian Mixer Foam Rubber 09/06/20
--- OUTSIDE RECORDS SUMMARY | 2023-06-16 10:44 | XMS_ITS | Referral Summary ---
Author Name Unknown Organization [facility] Address [facility] [place] [address] Care Team Providers Care Hospitality Director Name Role Phone JoséCelia MD Unavailable [phone] Charan Corbin MD Unavailable Adams Barrera Primary Care Provider Deborah Walsh MD Unavailable Greta Thao APRN PATIENT SCHEDULING MANAGER Unavailable [phone] Encounters Date Type Department Care Team Description 05/22/2023 Travel 05/22/2023 7:44 AM AGED OR DISABLED CARER - 05/22/2023 7:45 AM AGED OR DISABLED CARER Emergency [facility] Emergency Dept [address] [place] [address] Discharge Disposition: Home or Self Care 05/22/2023 [facility] [address] [place] [address] Amanda Abdi RN Patient Request 05/22/2023 12:25 AM AGED OR DISABLED CARER - 05/22/2023 4:24 AM AGED OR DISABLED CARER Emergency [facility] Emergency Dept [address] [place] [address] Chapm Madrid MD COVID-19 virus infection; Chronic anemia; Warfarin anticoagulation; Other fatigue; Chronic atrial fibrillation (H) Discharge Disposition: Home or Self Care from Last 3 Months Allergies Active Allergy Reactions Criticality Noted Date Comments Adhesive Tape Unknown 04/05/2021 Aspirin Low 03/14/2009 Other reaction(s): Other (see comments) Due to gastric bypass Cephalosporins Rash Low 04/02/2020 Ciprofloxacin Rash Low 04/02/2020 Erythromycin Rash Medium 03/11/2009 Latex 07/09/2021 Added based on information entered during log entry, please review and add reactions, type, and severity as needed Liquid Adhesive Rash Low 03/12/2017 Patient allergic to pressure tape or foam tape. Macrolides And Ketolides Rash Low 04/02/2020 Nsaids GI Disturbance 03/09/2015 Penicillins Rash Medium 03/11/2009 Sulfa Antibiotics Rash Medium 03/11/2009 Tolmetin Rash Low 07/03/2011 Pt had bariatric surgery, should not ever take oral NSAIDS due to risk of gastric ulcers. Tramadol Rash Low 05/18/2015 Troleandomycin Rash Low 03/12/2017 Patient unsure if she also had angioedema from these medications. Medications Medication Sig Dispensed Refills Start Date End Date Status torsemide 20 MG PO tablet Take 50 mg by mouth daily 0 9 Active MILK OF MAGNESIA 400 MG/5ML PO suspension Take 30 mLs by mouth daily as needed for constipation 0 9 Active nystatin 866148 UNIT/GM EX external powder Apply topically 2 times daily as needed 0 9 Active SM GAS RELIEF EXTRA STRENGTH 125 MG PO CAPS Take 1 capsule by mouth 4 times daily 0 0 Active albuterol (VENTOLIN HFA) 108 (90 Base) MCG/ACT IN inhaler Inhale 2 puffs into the lungs every 6 hours as needed 0 9 Active atorvastatin 40 MG PO tablet Take 40 mg by mouth At Bedtime 0 9 Active azelastine 0.1 % NA nasal sprayIndications: allergies Clare 1 spray into both nostrils 2 times daily 0 6 Active calcium carbonate 1250 MG/5ML PO SUSP suspension Take 1,250 mg by mouth daily 0 9 Active cyanocobalamin 1000 MCG/ML IJ injection Inject 1 mL into the muscle every 30 days 0 0 Active diclofenac (VOLTAREN) 1 % topical gel Apply 2 g topically 4 times daily Apply to affected area. 6AM, 12PM, 6PM, 12AM 0 0 Active fluticasone (FLONASE) 50 MCG/ACT nasal spray Clare 1 spray into both nostrils 2 times daily 0 0 Active Incontinence Supply Disposable (DEPEND FITTED BRIEFS SM/MED) MISC For home use. Will use 2 per day. Size large. 0 8 Active Vaginal Lubricant (REPLENS) GEL Place vaginally every 72 hours as needed (dryness) 0 0 Active Sharps Container (RBZBXM-P-UWQES LOCKING BRACKET) MISC Length: calf Strength: 16-20 mmHg Circumference in cm: For calf: Ankle 12, Calf 18.5 , Ankle to calf length 12 . 0 8 Active HYDROmorphone (DILAUDID) 2 MG tabletIndications :Open wound Take 1 tablet (2 mg) by mouth every 6 hours as needed for severe pain 12 tablet 0 1 Active Additional Information Patient taking differently: 2-4 mgOralEVERY 4 HOURS PRN, severe pain,Max 5 per day, Reported on 07/08/2021 metFORMIN (GLUCOPHAGE) 500 MG tablet Take 500 mg by mouth 2 times daily (with meals) 0 Active warfarin ANTICOAGULANT (COUMADIN) 2 MG tablet Take 3-4 mg by mouth See Admin Instructions Take 3 mg on Sundays. Take 4 mg all other days of the week. 0 Active BANOPHEN 25 MG capsule Take 25 mg by mouth every 4 hours as needed for sleep 0 1 Active fluticasone-salme terol (ADVAIR) 250-50 MCG/DOSE inhalerIndication s:Asthma Inhale 1 puff into the lungs 2 times daily 0 1 Active loratadine (CLARITIN) 10 MG tablet Take 10 mg by mouth daily 0 1 Active artificial saliva (BIOTENE DRY MOUTHWASH) LIQD liquid Swish and spit 15 mLs in mouth every 6 hours as needed for dry mouth 0 1 Active pantoprazole (PROTONIX) 40 MG EC tablet Take 40 mg by mouth daily 0 1 Active sertraline (ZOLOFT) 100 MG tablet Take 200 mg by mouth daily 0 1 Active ammonium lactate (LAC-HYDRIN) 12 % external lotion Apply topically 2 times daily as needed (irritation) 0 1 Active ipratropium - albuterol 0.5 mg/2.5 mg/3 mL (DUONEB) 0.5-2.5 (3) MG/3ML neb solution Take 1 vial by nebulization 2 times daily 0 1 Active DIPHENHYDRAMINE HCL PO Take 25 mg by mouth every 4 hours as needed 0 Active MARY-LANTA 200-200-20 MG/5ML SUSP suspension Take 10 mLs by mouth 4 times daily as needed for indigestion 0 2 Active prazosin (MINIPRESS) 2 MG capsule Take 2 mg by mouth At Bedtime 0 2 Active pregabalin (LYRICA) 100 MG capsule Take 100 mg by mouth 3 times daily 0 2 Active SUMAtriptan (IMITREX) 50 MG tablet Take 50 mg by mouth at onset of headache for migraine May repeat x1 in 2 hours if needed. 0 2 Active hydrocortisone (CORTAID) 1 % external cream Apply topically 4 times daily as needed for rash 0 2 Active zolpidem (AMBIEN) 5 MG tablet Take 5 mg by mouth At Bedtime 0 2 Active ulpjn-t-fyjumkdfk dase (BEANO) tablet Take 1 tablet by mouth 3 times daily (before meals) 0 Active polyethylene glycol (MIRALAX) 17 g packet Take 1 packet by mouth 2 times daily 0 Active senna-docusate (SENOKOT-S/MARGARET LACE) 8.6-50 MG tablet Take 3 tablets by mouth 2 times daily 0 Active ondansetron (ZOFRAN-ODT) 4 MG ODT tab Take 4 mg by mouth every 8 hours as needed for nausea 0 Active sotalol (BETAPACE) 120 MG tabletIndications :Paroxysmal atrial fibrillation (H) Take 0.5 tablets (60 mg) by mouth 2 times daily 0 2 Active hydrOXYzine (VISTARIL) 50 MG capsuleIndication s:Status post total right knee replacement Take 1 capsule (50 mg) by mouth 3 times daily as needed for itching 30 capsule 0 2 Active acetaminophen 500 MG PO tablet Take 1,000 mg by mouth 3 times daily as needed 0 8 05/22/20 23 Discontinued Blood Glucose Monitoring Suppl (FIFTY50 GLUCOSE METER 2.0) w/Device XX KIT Dispense meter, test strips, lancets covered by pt ins. E11.9 NIDDM type II - Test two times per week 0 7 05/22/20 23 Discontinued Respiratory Therapy Supplies (AIRS DISPOSABLE NEBULIZER) KIT For home use. Length of need: 12 months 0 8 05/22/20 23 Discontinued Syringe/Needle, Disp, (BD LUER-SAMIR SYRINGE) 25G X 1-1/2 3 ML MISC 0 0 05/22/20 23 Discontinued Syringe/Needle, Disp, (SAFETY SYRINGE) 21G X 1-1/2 3 ML MISC As directed. 0 0 05/22/20 23 Discontinued Syringe/Needle, Disp, (SAFETY SYRINGE) 21G X 1-1/2 3 ML MISC As directed. 0 0 05/22/20 23 Discontinued Gauze Pads & Dressings (GAUZE DRESSING) 4X4 PADSIndications:E xcess skin of abdomen 1 box 24 each 3 1 05/22/20 23 Discontinued clindamycin (CLEOCIN) 300 MG capsule Take 600 mg by mouth daily as needed PRN prior to dental work 0 1 05/22/20 23 Discontinued doxycycline monohydrate (ADOXA) 50 MG tablet Take 50 mg by mouth 2 times daily 0 1 05/22/20 23 Discontinued apixaban ANTICOAGULANT (ELIQUIS) 2.5 MG tabletIndications :Status post total right knee replacement Take 1 tablet (2.5 mg) by mouth 2 times daily 60 tablet 0 2 05/22/20 23 Discontinued acetaminophen (TYLENOL) 500 MG tabletIndications :Status post total right knee replacement Take 1-2 tablets (500-1,000 mg) by mouth every 6 hours as needed for mild pain 60 tablet 0 2 05/22/20 23 Discontinued nirmatrelvir and ritonavir (PAXLOVID) 300 mg/100 mg therapy pack Take 3 tablets by mouth 2 times daily for 5 days 30 tablet 0 3 05/27/20 23 Active Problems Problem Noted Date Diagnosed Date Total knee replacement status 07/09/2021 Excess skin of abdomen 03/29/2020 Overview: Added automatically from request for surgery [id number] Nasal septal deviation 02/08/2020 Nasal trauma 02/08/2020 Nasal valve collapse 02/08/2020 Asthma 02/03/2019 Overview: Asthma. mild. only with URI. Asthma. mild. only with URI. Longstanding persistent atrial fibrillation 09/2018 Status post replacement of left shoulder joint 1 Diastasis of rectus abdominis 01/29/2018 Lacunar stroke 01/20/2018 Overview: Right parietal per [facility] Recurrent major depressive disorder (H24) 2017 Overview: Per psychiatry management Spinal stenosis 08/24/2017 Overview: Overview: ~ May 2014:L5-S1 Interlaminar epidural steroid injection by Dr. Ontiveros. Thrombocytopenia (H24) 08/24/2017 Bilateral high frequency sensorineural hearing l oss 08/20/2017 History of acute respiratory distress syndrome ( ARDS) 08/09/2017 ADHD 03/24/2017 Acute respiratory failure with hypoxia 7 Mild persistent asthma 03/12/2017 Morbid obesity 03/12/2017 Osteoarthritis of left glenohumeral joint 2016 Chronic pain disorder 12/31/2016 Hot flashes due to menopause 07/20/2016 Psychiatric disorder 07/15/2016 Overview: Per psychiatry management Bipolar II disorder 06/20/2016 Overview: Per psychiatry mangament Per psychiatry mangament Hesitancy of micturition 04/23/2015 Recurrent UTI 04/23/2015 Bariatric surgery status 03/23/2015 Overview: ORYGB, Dr Bahena Joint pain 03/23/2015 Back pain 03/23/2015 Constipation 02/01/2015 Controlled substance agreement terminated 2014 Overview: Overview: See letter to patient, patient not currently receiving chronic opioids Disability examination 09/07/2014 Overview: Overview: Per Social Security, July 2014 Type 2 diabetes mellitus without complication Tobacco dependence 05/30/2014 Neural foraminal stenosis of lumbar spine 2013 S/P gastric bypass 03/23/2014 Vitamin B12 deficiency 01/15/2012 Narcotic abuse in remission 02/27/2011 Overview: Overview: receiving narcotic from multiple physicians 02/27/11 Last Assessment & Plan: History of of positive drug screen for meth and cocaine from ER visit Essential hypertension, benign 03/11/2009 Overview: Hypertension Adjustment disorder with depressed mood 12/09/19 07 Depressive disorder 12/08/2006 Anxiety 11/02/2006 Gastroesophageal reflux disease 11/02/2006 Overview: Overview: EGD 03/2014 normal gastric bypass EGD 03/2014 normal gastric bypass Insomnia 11/02/2006 Mixed hyperlipidemia 11/02/2006 Tobacco use 11/02/2006 Bleeding ulcer 02/04/2005 Allergic rhinitis 02/07/2004 Ventral hernia 02/07/2004 History of hysterectomy 06/01/2002 Overview: hyst prior to 2002, cervix removed, paps not indicated Immunizations Name Administration Dates Next Due DTaP, Unspecified 09/02/2011 Flu 65+ Years 04/03/2010,03/31/2005,03/23/2003 Flu, Unspecified 03/22/2015,03/15/2013 Influenza (IIV3) PF 02/13/2017, 0,03/31/2005,2002 Influenza Vaccine >6 months,quad, PF 05/2020,02/14/2019,02/15/2018,2016,03/22/2015 Influenza Vaccine IM 18-49 Yrs, RIV3 02/27/2014 Influenza Vaccine, 6+MO IM (QUADRIVALENT W/PRESERVATIVES) 03/18/2021 Pneumococcal 23 valent 07/08/2001 TD,PF 7+ (Tenivac) 07/25/2006 TDAP (Adacel,Boostrix) 09/02/2011 Tdap (Adult) Unspecified Formulation 07/25/2006 Social History Tobacco Use Types Packs/Day Years Used Date Smoking Tobacco: Every Day Cigarettes 0.1 Last attempted to quit: 07/02/2020 Hookah Smokeless Tobacco: Never Comments:3 cigarettes a day Alcohol Use Standard Drinks/Week Comments Not Currently 0 (1 standard drink = 0.6 oz pure alcohol) former, maybe once at holidays Social Connection and Isolat ion Panel [NHANES] Answer Date Recorded In a typical week, how many times do you talk on the phone with family, friends, or neighbors? More than three times a week 07/05/2021 Frequency of Social Gatherin gs with Friends and Family Not on file 07/05/2021 How often do you attend [facility] or adventism services? More than 4 times per year 07/05/2021 Do you belong to any clubs o r organizations such as buddhism groups, unions, fraternal or athletic groups, or school groups? No 07/05/2021 Attends Club or Organization Meetings Not on charles e 07/05/2021 Are you , , di vorced, , never , or living with a partner? 07/05/2021 AUDIT-C Answer Date Recorded Q1: How often do you have a drink containing alc ohol? Monthly or less 07/05/2021 Q2: How many drinks containi ng alcohol do you have on a typical day when you are drinking? 1 or 2 07/05/2021 Q3: How often do you have si x or more drinks on one occasion? Never 07/05/2021 Overall Financial Resource Strain (CARDIA) Answe r Date Recorded How hard is it for you to pa y for the very basics like food, housing, medical care, and heating? Somewhat hard 07/05/2021 PHQ-2 Answer Date Recorded PHQ-2 Score 1 07/20/2019 [facility] Occupat ional Health - Occupational Stress Questionnaire Answer Date Recorded Do you feel stress - tense, restless, nervous, or anxious, or unable to sleep at night because your mind is troubled all the time - these days? Only a little 07/05/2021 Exercise Vital Sign Answer Date Recorde d On average, how many days pe r week do you engage in moderate to strenuous exercise (like a brisk walk)? 0 days 07/05/2021 On average, how many minutes do you engage in exercise at this level? 10 min 07/05/2021 Hunger Vital Sign Answer Date Recorded Within the past 12 months, y ou worried that your food would run out before you got the money to buy more. Never true 07/05/19 Within the past 12 months, t he food you bought just didn't last and you didn't have money to get more. Never true 07/05/2021 PRAPARE - Transportation Answer Date Re corded In the past 12 months, has l ack of transportation kept you from medical appointments or from getting medications? No 08/2021 In the past 12 months, has l ack of transportation kept you from meetings, work, or from getting things needed for daily living? No 07/05/2021 Housing Stability Vital Sign Answer Steve e Recorded In the last 12 months, was t here a time when you were not able to pay the mortgage or rent on time? No 07/05/2021 In the last 12 months, how many places have you lived? 1 07/05/2021 In the last 12 months, was t here a time when you did not have a steady place to sleep or slept in a retirement (including now)? No 07/05/2021 Adolescent Education Answer Date Record ed Getting School Help Needed Not on file 02/20 Sex and Gender Information Value Date Recorded Sex Assigned at Not on file Gender Identity Not on file Sexual Orientation Not on file Last Filed Vital Signs Vital Sign Reading Time Taken Comments Blood Pressure 143/105 05/22/2023 7:14 AM AGED OR DISABLED CARER Pulse 108 05/22/2023 7:14 AM AGED OR DISABLED CARER Temperature 36.8 ??C (98.3 ??F) 05/22/2023 7:14 AM CS T Respiratory Rate 20 05/22/2023 7:14 AM AGED OR DISABLED CARER Oxygen Saturation 98% 05/22/2023 7:14 AM AGED OR DISABLED CARER Inhaled Oxygen Concentration - - Weight 110.3 kg (243 lb 3.2 oz) 07/12/2021 7:00 AM AGED OR DISABLED CARER Height 157.5 cm (5' 2) 07/09/2021 6:14 AM AGED OR DISABLED CARER Body Mass Index 44.48 07/09/2021 6:14 AM AGED OR DISABLED CARER Plan of Treatment Upcoming Encounters Date Type Department Care Team (Late st Contact Info) Description 06/16/2023 3:30 PM AGED OR DISABLED CARER Office Visit [facility] Heart [facility] [address] [place] [phone] Greta Thao APRN PATIENT SCHEDULING MANAGER [facility] [address] [place] [phone] Medical Devices Implanted Type Area Professor Of Historical Theology Device Identifier Shelf Expiration Date Model / Serial / Lot Cement Surgical Tobramycin 6197-9-001 - [id number] Implanted:Qty : 2 on 07/09/2021 by Jamin Siegel MD at [facility] Cement, Bone Right: Knee [employer] 07/01/2022 6197-9-001 / / [id number] Insert Jj Attune Post Stab Fx Br Sys Sz5 12mm [id number] - [id number] Implanted:Qty : 1 on 07/09/2021 by Jamin Siegel MD at [facility] Total Joint Componen t/Insert Right: Knee [employer] [id number] 07/29/2024 [id number] / / [id number] Procedures Procedure Name Priority Date/Time Associated Diagnosis Comments XR CHEST PORT 1 VIEW STAT 05/22/2023 1:26 AM AGED OR DISABLED CARER EKG 12-LEAD, TRACING ONLY STAT 05/22/2023 12:53 AM AGED OR DISABLED CARER CBC WITH PLATELETS & DIFFERENTIAL STAT 05/22/2023 12:39 AM AGED OR DISABLED CARER INR STAT 05/22/2023 12:39 AM AGED OR DISABLED CARER EXTRA GREEN TOP (LITHIUM HEPARIN) ON ICE STAT 05/22/2023 12:39 AM AGED OR DISABLED CARER EXTRA RED TOP TUBE STAT 05/22/2023 12 :39 AM AGED OR DISABLED CARER EXTRA BLUE TOP TUBE STAT 05/22/2023 1 2:39 AM AGED OR DISABLED CARER CBC WITH PLATELETS AND DIFFERENTIAL STAT 05/22/2023 12:39 AM AGED OR DISABLED CARER INFLUENZA A/B, RSV, & SARS-COV2 PCR STAT 05/22/2023 12:39 AM AGED OR DISABLED CARER EXTRA TUBE STAT 05/22/2023 12:39 AM AGED OR DISABLED CARER BASIC METABOLIC PANEL STAT 05/22/2023 12:39 AM AGED OR DISABLED CARER from Last 3 Months Results * XR Chest Port 1 View (05/22/2023 1:26 AM AGED OR DISABLED CARER) Anatomical Region Laterality Modality Chest Digital Radiogra phy 05/22/2023 1:26 AM AGED OR DISABLED CARER Impressions 05/22/2023 1:33 AM AGED OR DISABLED CARER IMPRESSION: Minimal change. Modest cardiomegaly with central vascular congestion. Mild interstitial prominence similar to prior study. No definite focal pneumonia. Left shoulder arthroplasty. Narrative 05/22/2023 1:33 AM AGED OR DISABLED CARER EXAM: XR CHEST PORT 1 VIEW LOCATION: [facility] DATE: 05/22/2023 INDICATION: covid +, SOB COMPARISON: 04/08/2021 Procedure Note Farshad Vale MD - 05/22/2023 EXAM: XR CHEST PORT 1 VIEW LOCATION: [facility] DATE: 05/22/2023 INDICATION: covid +, SOB COMPARISON: 04/08/2021 IMPRESSION: Minimal change. Modest cardiomegaly with central vascularcongestion. Mild interstitial prominence similar to prior study. Nodefinite focal pneumonia. Left shoulder arthroplasty. Champ Madrid MD IMG DIAGNOSTIC IMAGI NG ORDERABLES * EKG 12-lead, tracing only (05/22/2023 12:53 AM AGED OR DISABLED CARER) Systolic Blood Pressure mmHg RADIOLOGY RESULTS Diastolic Blood Pressure mmHg RADIOLOGY RESULTS Ventricular Rate 94 BPM RAD IOLOGY RESULTS Atrial Rate 375 BPM RADIOLOG Y RESULTS OR Interval ms RADIOLOG Y RESULTS QRS Duration 82 ms RADIOLO GY RESULTS QT 406 ms RADIOLOGY RESULTS QTc 507 ms RADIOLOGY RESULTS P [place] degrees RADIOLOGY RESULTS R AXIS -10 degrees RADIOLOGY RESULTS T [place] 17 degrees RADIOLOGY RESULTS Interpretation ECG Atrial fibrillation Nonspecific ST and T wave abnormality Prolonged QT Abnormal ECG When compared with ECG of 13-JUL-2021 07:15, Nonspecific T wave abnormality now evident in Lateral leads Confirmed by - EMERGENCY ROOM, PHYSICIAN ([id number]), general expeditor ISMAEL BARBOZA ([id number]) on 05/22/2023 7:16:31 AM RADIOLOGY RESULTS 05/22/2023 12:5 3 AM AGED OR DISABLED CARER 05/22/2023 7:16 AM AGED OR DISABLED CARER Champ Madrid MD ECG ORDERABLES RADIOLOGY RESULTS * Extra Green Top ([place] Heparin) ON ICE (05/22/2023 12:39 AM AGED OR DISABLED CARER) Hold Specimen [facility] 05/22/2023 2:02 AM AGED OR DISABLED CARER LABORATORY Blood BLOOD SPECIMEN / Unknown Venipuncture / Unknown 05/22/2023 12:39 AM AGED OR DISABLED CARER 05/22/2023 12:47 AM AGED OR DISABLED CARER Champ Madrid MD LAB - BLOOD ORDERABL ES LABORATORY [facility] Acute Care Lab [address] Lab (1st floor, no room number) [place] [address], [facility] [phone] * Extra Red Top Tube (05/22/2023 12:39 AM AGED OR DISABLED CARER) Hold Specimen [facility] 05/22/2023 2:02 AM AGED OR DISABLED CARER LABORATORY Blood BLOOD SPECIMEN / Unknown Venipuncture / Unknown 05/22/2023 12:39 AM AGED OR DISABLED CARER 05/22/2023 12:47 AM AGED OR DISABLED CARER Champ Madrid MD LAB - BLOOD ORDERABL ES [facility] Acute Care Lab [address] Lab (1st floor, no room number) [place] [address], [facility] [phone] * Extra Blue Top Tube (05/22/2023 12:39 AM AGED OR DISABLED CARER) Hold Specimen [facility] 05/22/2023 2:02 AM AGED OR DISABLED CARER LABORATORY Blood BLOOD SPECIMEN / Unknown Venipuncture / Unknown 05/22/2023 12:39 AM AGED OR DISABLED CARER 05/22/2023 12:47 AM AGED OR DISABLED CARER Champ Madrid MD LAB - BLOOD ORDERABL ES Performing Organization Address [facility]/ZIP Co de Phone Number [facility] Care Lab [address] Lab (1st floor, no room number) [place] [phone], [facility] [phone] * (ABNORMAL) CBC with platelets and differential (05/22/2023 12:39 AM AGED OR DISABLED CARER) WBC Count 5.4 4.0 - 11.0 10e3/uL 05/22/2023 12:54 AM AGED OR DISABLED CARER [facility] LABORATORY RBC Count 3.59(L) 3.80 - 5.20 10e6/uL 05/22/2023 12:54 AM AGED OR DISABLED CARER [facility] Hemoglobin 8.0(L) 11.7 - 15.7 g/dL 05/22/2023 12:54 AM AGED OR DISABLED CARER [facility] LABORATORY Hematocrit 27.8(L) 35.0 - 47.0 % 05/22/2023 12:54 AM AGED OR DISABLED CARER [facility] LABORATORY MCV 77(L) 78 - 100 fL 05/22/2023 12:54 AM AGED OR DISABLED CARER [facility] LABORATORY MCH 22.3(L) 26.5 - 33.0 pg 05/22/2023 12:54 AM AGED OR DISABLED CARER [facility] LABORATORY MCHC 28.8(L) 31.5 - 36.5 g/dL 05/22/2023 12:54 AM AGED OR DISABLED CARER [facility] LABORATORY RDW 18.2(H) 10.0 - 15.0 % 05/22/2023 12:54 AM AGED OR DISABLED CARER [facility] LAB[facility]ATORY Platelet Count 142(L) 150 - 450 10e3/uL 05/22/2023 12:54 AM AGED OR DISABLED CARER [facility] LAB[facility]AT[facility] % Neutrophils 82 % 05/22/2023 12:54 AM AGED OR DISABLED CARER [facility] LAB[facility]AT[facility] % Lymphocytes 10 % 05/22/2023 12:54 AM AGED OR DISABLED CARER [facility] LAB[facility]AT[facility] % Monocytes 7 % 05/22/2023 12:54 AM AGED OR DISABLED CARER [facility] LAB[facility]AT[facility] % Eosinophils 0 % 05/22/2023 12:54 AM AGED OR DISABLED CARER [facility] LAB[facility] % Basophils 0 % 05/22/2023 12:54 AM AGED OR DISABLED CARER [facility] LAB[facility] % Immature Granulocytes 1 % 05/22/2023 12:54 AM AGED OR DISABLED CARER [facility] LABORATORY NRBCs per 100 WBC 0 <1 /100 023 12:54 AM AGED OR DISABLED CARER [facility] LABORATORY Absolute Neutrophils 4.4 1.6 - 8.3 10e3/uL 05/22/2023 12:54 AM AGED OR DISABLED CARER [facility] LABORATORY Absolute Lymphocytes 0.6(L) 0.8 - 5.3 10e3/uL 05/22/2023 12:54 AM AGED OR DISABLED CARER [facility] LABORATORY Absolute Monocytes 0.4 0.0 - 1.3 10e3/uL 05/22/2023 12:54 AM AGED OR DISABLED CARER [facility] LABORATORY Absolute Eosinophils 0.0 0.0 - 0.7 10e3/uL 05/22/2023 12:54 AM AGED OR DISABLED CARER [facility] LABORATORY Absolute Basophils 0.0 0.0 - 0.2 10e3/uL 05/22/2023 12:54 AM AGED OR DISABLED CARER LABORATORY Absolute Immature Granulocytes 0.0 <=0.4 10e3/uL 05/22/2023 12:54 AM AGED OR DISABLED CARER LABORATORY Absolute NRBCs 0.0 10e3/uL 05/22/2023 12:54 AM AGED OR DISABLED CARER [facility] LABORATORY Blood BLOOD SPECIMEN / Unknown Venipuncture / Unknown 05/22/2023 12:39 AM AGED OR DISABLED CARER 05/22/2023 12:47 AM AGED OR DISABLED CARER Champ Madrid MD LAB - BLOOD ORDERABL ES RH LABORATORY [facility] Acute Care Lab [address] Lab (1st floor, no room number) [place] [address], [facility] [phone] * (ABNORMAL) Symptomatic Influenza A/B, RSV, & SARS-CoV2 PCR (COVID-19) Nasopharyngeal (05/22/2023 12:39 AM AGED OR DISABLED CARER) Influenza A PCR Negative Negative 05/22/2023 1:25 AM AGED OR DISABLED CARER [facility] LABORATORY Influenza B PCR Negative Negative 05/22/2023 1:25 AM AGED OR DISABLED CARER [facility] LABORATORY RSV PCR Negative Negative 05/22/2023 1:25 AM AGED OR DISABLED CARER [facility] LABORATORY SARS CoV2 PCR Positive(A) Negative 05/22/2023 1:25 AM AGED OR DISABLED CARER LABORATORY Comment:POSITIVE: SARS-CoV-2 (COVID-19) RNA detected, presumed positive. Swab NASOPHARYNGEAL STRUCTURE / Unknown Non-blood Collection / Unknown 05/22/2023 12:39 AM AGED OR DISABLED CARER 05/22/2023 12:47 AM AGED OR DISABLED CARER Narrative LABORATORY - 05/22/2023 1:25 AM AGED OR DISABLED CARER Testing was performed using the Xpert Xpress CoV2/Flu/RSV Assay on the [employer] GeneXpert Instrument. This test should be ordered for the detection of SARS-CoV-2, influenza, and RSV viruses in individuals who meet clinical and/or epidemiological criteria. Test performance is unknown in asymptomatic patients. This test is for in vitro diagnostic use under the FDA EUA for laboratories certified under CLIA to perform high or moderate complexity testing. This test has not been FDA cleared or approved. A negative result does not rule out the presence of PCR inhibitors in the specimen or target RNA in concentration below the limit of detection for the assay. If only one viral target is positive but coinfection with multiple targets is suspected, the sample should be re-tested with another FDA cleared, approved, or authorized test, if coinfection would change clinical management. This test was validated by the [facility]. These laboratories are certified under the Clinical Laboratory Improvement Amendments of 1988 (CLIA-88) as qualified to perform high complexity laboratory testing. Champ Madrid MD LAB - MICRO GENERAL ORDERABLES LABORATORY [facility] Acute Care Lab [address] [facility] Lab (1st floor, no room number) [place] [address], [facility] [phone] * (ABNORMAL) INR (05/22/2023 12:39 AM AGED OR DISABLED CARER) INR 2.74(H) 0.85 - 1.15 05/22/2023 1:40 AM [facility] LABORATORY Blood BLOOD SPECIMEN / Unknown Venipuncture / Unknown 05/22/2023 12:39 AM AGED OR DISABLED CARER 05/22/2023 12:47 AM AGED OR DISABLED CARER Champ Madrid MD LAB - BLOOD ORDERABL ES LABORATORY [facility] Acute Care Lab [address] [facility] Lab (1st floor, no room number) [place] [address], [facility] [phone] * (ABNORMAL) Basic metabolic panel (BMP) (05/22/2023 12:39 AM AGED OR DISABLED CARER) Sodium 142 135 - 145 mmol/L 05/22/2023 1:17 AM [facility] LABORATORY Comment:Reference intervals for this test were updated on 02/24/2023 to more accurately reflect our healthy population. There may be differences in the flagging of prior results with similar values performed with this method. Interpretation of those prior results can be made in the context of the updated reference intervals. Potassium 3.7 3.4 - 5.3 mmol/L 05/22/2023 1:17 AM [facility] LABORATORY Chloride 106 98 - 107 mmol/L 05/22/2023 1:17 AM [facility] LABORATORY Carbon Dioxide (CO2) 23 22 - 29 mmol/L 05/22/2023 1:17 AM [facility] LABORATORY Anion Gap 13 7 - 15 mmol/L 05/22/2023 1:17 AM [facility] LABORATORY Urea Nitrogen 10.3 8.0 - 23.0 mg/dL 05/22/2023 1:17 AM [facility] LABORATORY Creatinine 0.50(L) 0.51 - 0.95 mg/dL 05/22/2023 1:17 AM [facility] LABORATORY GFR Estimate >90 >60 mL/min/1. 73m2 05/22/2023 1:17 AM [facility] LABORATORY Calcium 8.2(L) 8.8 - 10.2 mg/dL 05/22/2023 1:17 AM [facility] LABORATORY Glucose 137(H) 70 - 99 mg/dL 05/22/2023 1:17 AM AGED OR DISABLED CARER RH LABORATORY Blood BLOOD SPECIMEN / Unknown Venipuncture / Unknown 05/22/2023 12:39 AM AGED OR DISABLED CARER 05/22/2023 12:47 AM AGED OR DISABLED CARER Champ Madrid MD LAB - BLOOD ORDERABL ES RH LABORATORY [facility] Acute Care Lab [address] Lab (1st floor, no room number) [place] [address], [facility] [phone] from Last 3 Months Advance Directives For more information, please contact: [phone] Latest Code Status on File Code Status Date Activated Date Inactivated Comments Full Code 07/09/2021 11:23 AM 07/13/2021 7:43 PM All b asic and advanced life-sustaining interventions are performed as appropriate Question Answer Comments Code status determined by: Discussion with patient/ legal decision maker Care Teams Hospitality Director Relationship Specialty Start Date End Date Adams Barrera [address] [facility] [address] [place], [place] [id number] PCP - General 03/30/20 Celia Kumar MD [address] [facility] [address] [place] [address] Plastic Surgery 04/20/15 Charan Corbin MD 420 [facility] EM[facility]ENC[facility]PART[facility] [address] [place] [address] INTERNAL MEDICINE - ENDOCRINOLOGY, DIABETES & METABOLISM 06/19/15 [place] [address] [place] [address] Assigned PCP 03/21/21 Greta Thao APRN PATIENT SCHEDULING MANAGER [facility] [address] [place] [address] Nurse Practitioner Cardiology 06/09/23
--- OUTSIDE RECORDS SUMMARY | 2023-06-16 10:44 | XMS_ITS | Clinical Summary ---
Author Name Unknown Organization [facility] Address [address] [place] [address] Care Team Providers Care Chocolate Dipper Name Role Phone Celia Kumar MD Unavailable [phone] Charan Corbin MD Unavailable [phone] Adams Barrera Primary Care Provider [phone] Deborah Walsh MD Unavailable Greta Thao APRN METAPHYSICS TEACHER Unavailable + [phone] Allergies Active Allergy Reactions Criticality Noted Date [...] needed for constipation 0 9 Active nystatin 108011 UNIT/GM EX external powder Apply topically 2 [...] azelastine 0.1 % NA nasal sprayIndications: allergies [place] 1 spray into both nostrils 2 times [...] Active fluticasone (FLONASE) 50 MCG/ACT nasal spray [place] 1 spray into both nostrils 2 times daily 0 0 Active Incontinence Supply Disposable (DEPEND FITTED BRIEFS SM/MED) MISC For home use. Will use 2 per day. Size large. 0 8 Active Vaginal Lubricant (REPLENS) GEL Place vaginally every 72 hours as needed (dryness) 0 0 Active Sharps Container (FLEKUM-T-TBKQB LOCKING BRACKET) MISC Length: calf Strength: 16-20 [...] by mouth At Bedtime 0 2 Active lxpxj-z-mnnfuvyoh dase (BEANO) tablet Take 1 tablet by [...] 5 days 30 tablet 0 3 05/27/20 Active Problems Problem Noted Date Diagnosed Date Total knee replacement status 07/09/2021 Excess skin of abdomen 03/29/2020 Overview: Added automatically from request for surgery [id number] Nasal septal deviation 02/08/2020 Nasal trauma 02/08/2020 Nasal valve collapse 02/08/2020 Asthma 02/03/2019 Overview: Asthma. mild. only with URI. Asthma. mild. only with URI. Longstanding persistent atrial fibrillation 09/2018 Status post replacement of left shoulder joint 1 Diastasis of rectus abdominis 01/29/2018 Lacunar stroke 01/20/2018 Overview: Right parietal per [facility] Recurrent major depressive disorder (H24) 2017 Overview: [...] UTI 04/23/2015 Bariatric surgery status 03/23/2015 Overview: Dr Josef MAGDALENO Joint pain 03/23/2015 Back pain 03/23/2015 Constipation [...] to 2002, cervix removed, paps not indicated Encounters Date Type Department Care Team Description 05/22/2023 7:44 AM GRAVEL ROOFER - 05/22/2023 7:45 AM GRAVEL ROOFER Emergency [facility] Emergency Dept [address] [place] [address] Discharge Disposition: Home or Self Care 05/22/2023 12:25 AM GRAVEL ROOFER - 05/22/2023 4:24 AM GRAVEL ROOFER Emergency [facility] Emergency Dept [address] [place] [address] Champ Madrid MD COVID-19 virus infection; Chronic anemia; Warfarin anticoagulation; Other fatigue; Chronic atrial fibrillation (H) Discharge Disposition: Home or Self Care 05/22/2023 Travel 05/22/2023 [facility] [address] [place] [phone] Amanda Abdi RN Patient Request from Last 3 Months Immunizations Name Administration Dates Next Due DTaP, Unspecified 09/02/2011 Flu 65+ Years 04/03/2010,03/31/2005,03/23/2003 Flu, Unspecified 03/22/2015,03/15/2013 Influenza (IIV3) PF 02/13/2017, 0,03/31/2005,2002 Influenza Vaccine >6 months,quad, PF 05/2020,02/14/2019,02/15/2018,2016,03/22/2015 Influenza Vaccine IM 18-49 Yrs, RIV3 02/27/2014 Influenza Vaccine, 6+MO IM (QUADRIVALENT W/PRESERVATIVES) 03/18/2021 Pneumococcal 23 valent 07/08/2001 TD,PF 7+ (Tenivac) 07/25/2006 TDAP (Adacel,Boostrix) 09/02/2011 Tdap (Adult) Unspecified Formulation 07/25/2006 Family History Medical History Relation Comments Diabetes Brother Cerebrovascular Disease Father Diabetes Father Atrial fibrillation Mother Relation Status Comments Brother Father Mother Social History Tobacco Use Types Packs/Day Years [...] file 07/05/2021 How often do you attend chur ch or protestant services? More than 4 times per year 07/05/2021 Do you belong to any clubs o r organizations such as gnosticist groups, unions, fraternal or athletic groups, or [...] Answer Date Recorded PHQ-2 Score 1 07/20/2019 [facility] [place] of Occupat ional Health - Occupational Stress [...] place to sleep or slept in a long term (including now)? No 07/05/2021 Adolescent Education Answer Date Record ed Getting School Help Needed Not on file 02/20 Sex and Gender Information Value Date Recorded Sex Assigned at Not on file Gender Identity Not on file Sexual Orientation Not on file Last Filed Vital Signs Vital Sign Reading Time Taken Comments Blood Pressure 143/105 05/22/2023 7:14 AM GRAVEL ROOFER Pulse 108 05/22/2023 7:14 AM GRAVEL ROOFER Temperature 36.8 ??C (98.3 ??F) 05/22/2023 7:14 AM CS T Respiratory Rate 20 05/22/2023 7:14 AM GRAVEL ROOFER Oxygen Saturation 98% 05/22/2023 7:14 AM GRAVEL ROOFER Inhaled Oxygen Concentration - - Weight 110.3 kg (243 lb 3.2 oz) 07/12/2021 7:00 AM GRAVEL ROOFER Height 157.5 cm (5' 2) 07/09/2021 6:14 AM GRAVEL ROOFER Body Mass Index 44.48 07/09/2021 6:14 AM GRAVEL ROOFER Plan of Treatment Upcoming Encounters Date Type Department Care Team (Late st Contact Info) Description 06/16/2023 3:30 PM GRAVEL ROOFER Office Visit [facility] [address] [place] [address] Greta Thao APRN [facility] [address] [place] [address] Health Maintenance Due Date Last Done Comments ADVANCE CARE PLANNING 1960 ANNUAL REVIEW OF HM ORDERS 1960 ASTHMA ACTION PLAN 1960 ASTHMA CONTROL TEST 1960 CT COLONOGRAPHY 1960 DIABETIC FOOT EXAM 1960 EYE EXAM 1960 FIT 1960 FLEX SIG 1960 MICROALBUMIN 1960 NICOTINE/TOBACCO CESSATION COUNSELING Q 1 YR 1960 sDNA (Cologuard) 1960 COLONOSCOPY 01/23/1970 COLORECTAL CANCER SCREENING 01/23/1970 HIV SCREENING 01/23/1975 HEPATITIS C SCREENING 01/23/1978 LIPID 03/09/2016 03/09/2015 RSV VACCINE ( & 60+) (1 - 1-dose 60+ series) 2020 MAMMO SCREENING 07/29/2021 07/29/2019 A1C 10/02/2021 07/05/2021, 11/0 12/2020, 11/14/2020, Additional history exists ZOSTER IMMUNIZATION (2 of 2) 03/05/2022 01/08/2022 MEDICARE ANNUAL WELLNESS VISIT 05/06/2022 05/06/2021 URINE DRUG SCREEN 07/05/2022 07/05/2021 LUNG CANCER SCREENING 07/11/2022 07/11/2021 , 11/09/2020, 03/19/2017 COVID-19 Vaccine ( season) 2023 04/09/2022, 04/09/2022, 07/16/2020, Additional history exists BMP 05/22/2024 05/22/2023, 07/02, 07/10/2021, Additional history exists DTAP/TDAP/TD IMMUNIZATION (7 - Td or Tdap) 06/24/2032 06/24/2022, 09/29/2011, 09/02/2011, Additional history exists INFLUENZA VACCINE Completed 04/08/2023, , 04/23/2022, Additional history exists Pneumococcal Vaccine: Pediatrics (0 to 5 Years) and At-Risk Patients (6 to 64 Years) Completed 05/12/2023, 01/08/2022, 07/08/2001 HPV IMMUNIZATION Aged Out No longer e ligible based on patient's age to complete this topic IPV IMMUNIZATION Aged Out No longer e ligible based on patient's age to complete this topic MENINGITIS IMMUNIZATION Aged Out No l onger eligible based on patient's age to complete this topic PAP Discontinued RSV MONOCLONAL ANTIBODY Aged Out No l onger eligible based on patient's age to complete this topic Medical Devices Implanted Type Area Undercar Specialist Device Identifier Shelf Expiration Date Model / Serial / Lot Cement Surgical Tobramycin 6197-9-001 - [id number] Implanted:Qty : 2 on 07/09/2021 by Jamin Siegel MD at [facility] Cement, Bone Right: Knee [employer] 07/01/2022 6197-9-001 / / [id number] Insert Jj Attune Post Stab Fx Br Sys Sz5 12mm [id number] - [id number] Implanted:Qty : 1 on 07/09/2021 by Jamin Siegel MD at [facility] Total Joint Componen t/Insert Right: Knee [employer] [id number] 07/29/2024 [id number] / / [id number] Procedures Procedure Name Priority Date/Time Associated Diagnosis Comments XR CHEST PORT 1 VIEW STAT 05/22/2023 1:26 AM GRAVEL ROOFER EKG 12-LEAD, TRACING ONLY STAT 05/22/2023 12:53 AM GRAVEL ROOFER CBC WITH PLATELETS & DIFFERENTIAL STAT 05/22/2023 12:39 AM GRAVEL ROOFER INR STAT 05/22/2023 12:39 AM GRAVEL ROOFER EXTRA GREEN TOP (LITHIUM HEPARIN) ON ICE STAT 05/22/2023 12:39 AM GRAVEL ROOFER EXTRA RED TOP TUBE STAT 05/22/2023 12 :39 AM GRAVEL ROOFER EXTRA BLUE TOP TUBE STAT 05/22/2023 1 2:39 AM GRAVEL ROOFER CBC WITH PLATELETS AND DIFFERENTIAL STAT 05/22/2023 12:39 AM GRAVEL ROOFER INFLUENZA A/B, RSV, & SARS-COV2 PCR STAT 05/22/2023 12:39 AM GRAVEL ROOFER EXTRA TUBE STAT 05/22/2023 12:39 AM GRAVEL ROOFER BASIC METABOLIC PANEL STAT 05/22/2023 12:39 AM GRAVEL ROOFER from Last 3 Months Results * XR Chest Port 1 View (05/22/2023 1:26 AM GRAVEL ROOFER) Anatomical Region Laterality Modality Chest Digital Radiogra phy 05/22/2023 1:26 AM GRAVEL ROOFER Impressions 05/22/2023 1:33 AM GRAVEL ROOFER IMPRESSION: Minimal change. Modest cardiomegaly with central vascular congestion. Mild interstitial prominence similar to prior study. No definite focal pneumonia. Left shoulder arthroplasty. Narrative 05/22/2023 1:33 AM GRAVEL ROOFER EXAM: XR CHEST PORT 1 VIEW LOCATION: [facility] DATE: 05/22/2023 INDICATION: covid +, SOB COMPARISON: 04/08/2021 Procedure Note Farshad Vale MD - 05/22/2023 EXAM: XR CHEST PORT 1 VIEW LOCATION: [facility] DATE: 05/22/2023 INDICATION: covid +, SOB COMPARISON: 04/08/2021 IMPRESSION: Minimal change. Modest cardiomegaly with central vascularcongestion. Mild interstitial prominence similar to prior study. Nodefinite focal pneumonia. Left shoulder arthroplasty. Champ Madrid MD IMG DIAGNOSTIC IMAGI NG ORDERABLES * EKG 12-lead, tracing only (05/22/2023 12:53 AM GRAVEL ROOFER) Systolic Blood Pressure mmHg RADIOLOGY RESULTS Diastolic Blood Pressure mmHg RADIOLOGY RESULTS Ventricular Rate 94 BPM RAD IOLOGY RESULTS Atrial Rate 375 BPM RADIOLOG Y RESULTS MS Interval ms RADIOLOG Y RESULTS QRS Duration 82 ms RADIOLO GY RESULTS QT 406 ms RADIOLOGY RESULTS QTc 507 ms RADIOLOGY RESULTS P [place] degrees RADIOLOGY RESULTS R AXIS -10 degrees RADIOLOGY RESULTS T [place] 17 degrees RADIOLOGY RESULTS Interpretation ECG Atrial fibrillation Nonspecific ST and T wave abnormality Prolonged QT Abnormal ECG When compared with ECG of 13-JUL-2021 07:15, Nonspecific T wave abnormality now evident in Lateral leads Confirmed by - EMERGENCY ROOM, PHYSICIAN ([id number]), features editor ISMAEL BARBOZA ([id number]) on 05/22/2023 7:16:31 AM RADIOLOGY RESULTS 05/22/2023 12:5 3 AM GRAVEL ROOFER 05/22/2023 7:16 AM GRAVEL ROOFER Champ Madrid MD ECG ORDERABLES RADIOLOGY RESULTS * Extra Green Top ([place] Heparin) ON ICE (05/22/2023 12:39 AM GRAVEL ROOFER) Hold Specimen [facility] 05/22/2023 2:02 AM GRAVEL ROOFER LABORATORY Blood BLOOD SPECIMEN / Unknown Venipuncture / Unknown 05/22/2023 12:39 AM GRAVEL ROOFER 05/22/2023 12:47 AM GRAVEL ROOFER Champ Madrid MD LAB - BLOOD ORDERABL ES LABORATORY [facility] Acute Care Lab [address] Lab (1st floor, no room number) [place] [address], [facility] [phone] * Extra Red Top Tube (05/22/2023 12:39 AM GRAVEL ROOFER) Hold Specimen [facility] 05/22/2023 2:02 AM GRAVEL ROOFER RH LABORATORY Blood BLOOD SPECIMEN / Unknown Venipuncture / Unknown 05/22/2023 12:39 AM GRAVEL ROOFER 05/22/2023 12:47 AM GRAVEL ROOFER Champ Madrid MD LAB - BLOOD ORDERABL ES [facility] Lab [address] Lab (1st floor, no room number) [place] [address], [facility] [phone] * Extra Blue Top Tube (05/22/2023 12:39 AM GRAVEL ROOFER) Hold Specimen [facility] 05/22/2023 2:02 AM GRAVEL ROOFER RH LABORATORY Blood BLOOD SPECIMEN / Unknown Venipuncture / Unknown 05/22/2023 12:39 AM GRAVEL ROOFER 05/22/2023 12:47 AM GRAVEL ROOFER Champ Madrid MD LAB - BLOOD ORDERABL ES [facility] Lab [address] Lab (1st floor, no room number) [place] [address], [facility] [phone] * (ABNORMAL) CBC with platelets and differential (05/22/2023 12:39 AM GRAVEL ROOFER) WBC Count 5.4 4.0 - 11.0 10e3/uL 05/22/2023 12:54 AM GRAVEL ROOFER RH LABORATORY RBC Count 3.59(L) 3.80 - 5.20 10e6/uL 05/22/2023 12:54 AM GRAVEL ROOFER RH LABORATORY Hemoglobin 8.0(L) 11.7 - 15.7 g/dL 05/22/2023 12:54 AM GRAVEL ROOFER RH LABORATORY Hematocrit 27.8(L) 35.0 - 47.0 % 05/22/2023 12:54 AM GRAVEL ROOFER RH LABORATORY MCV 77(L) 78 - 100 fL 05/22/2023 12:54 AM GRAVEL ROOFER RH LABORATORY MCH 22.3(L) 26.5 - 33.0 pg 05/22/2023 12:54 AM GRAVEL ROOFER RH LABORATORY MCHC 28.8(L) 31.5 - 36.5 g/dL 05/22/2023 12:54 AM GRAVEL ROOFER RH LABORATORY RDW 18.2(H) 10.0 - 15.0 % 05/22/2023 12:54 AM GRAVEL ROOFER RH LABORATORY Platelet Count 142(L) 150 - 450 10e3/uL 05/22/2023 12:54 AM GRAVEL ROOFER RH LABORATORY % Neutrophils 82 % 05/22/2023 12:54 AM GRAVEL ROOFER RH LABORATORY % Lymphocytes 10 % 05/22/2023 12:54 AM GRAVEL ROOFER RH LABORATORY % Monocytes 7 % 05/22/2023 12:54 AM GRAVEL ROOFER RH LABORATORY % Eosinophils 0 % 05/22/2023 12:54 AM GRAVEL ROOFER RH LABORATORY % Basophils 0 % 05/22/2023 12:54 AM GRAVEL ROOFER RH LABORATORY % Immature Granulocytes 1 % 05/22/2023 12:54 AM GRAVEL ROOFER RH LABORATORY NRBCs per 100 WBC 0 <1 /100 023 12:54 AM GRAVEL ROOFER RH LABORATORY Absolute Neutrophils 4.4 1.6 - 8.3 10e3/uL 05/22/2023 12:54 AM GRAVEL ROOFER RH LABORATORY Absolute Lymphocytes 0.6(L) 0.8 - 5.3 10e3/uL 05/22/2023 12:54 AM GRAVEL ROOFER RH LABORATORY Absolute Monocytes 0.4 0.0 - 1.3 10e3/uL 05/22/2023 12:54 AM GRAVEL ROOFER RH LABORATORY Absolute Eosinophils 0.0 0.0 - 0.7 10e3/uL 05/22/2023 12:54 AM GRAVEL ROOFER RH LABORATORY Absolute Basophils 0.0 0.0 - 0.2 10e3/uL 05/22/2023 12:54 AM GRAVEL ROOFER RH LABORATORY Absolute Immature Granulocytes 0.0 <=0.4 10e3/uL 05/22/2023 12:54 AM GRAVEL ROOFER RH LABORATORY Absolute NRBCs 0.0 10e3/uL 05/22/2023 12:54 AM GRAVEL ROOFER RH LABORATORY Blood BLOOD SPECIMEN / Unknown Venipuncture / Unknown 05/22/2023 12:39 AM GRAVEL ROOFER 05/22/2023 12:47 AM GRAVEL ROOFER Champ Madrid MD LAB - BLOOD ORDERABL ES LABORATORY [facility] Acute Care Lab [address] [facility] Lab (1st floor, no room number) [place] [address], [facility] [phone] * (ABNORMAL) Symptomatic Influenza A/B, RSV, & SARS-CoV2 PCR (COVID-19) Nasopharyngeal (05/22/2023 12:39 AM GRAVEL ROOFER) Influenza A PCR Negative Negative 05/22/2023 1:25 AM GRAVEL ROOFER LABORATORY Influenza B PCR Negative Negative 05/22/2023 1:25 AM GRAVEL ROOFER LABORATORY RSV PCR Negative Negative 05/22/2023 1:25 AM GRAVEL ROOFER LABORATORY SARS CoV2 PCR Positive(A) Negative 05/22/2023 1:25 AM GRAVEL ROOFER LABORATORY Comment:POSITIVE: SARS-CoV-2 (COVID-19) RNA detected, presumed positive. Swab NASOPHARYNGEAL STRUCTURE / Unknown Non-blood Collection / Unknown 05/22/2023 12:39 AM GRAVEL ROOFER 05/22/2023 12:47 AM GRAVEL ROOFER Narrative LABORATORY - 05/22/2023 1:25 AM GRAVEL ROOFER Testing was performed using the Xpert Xpress CoV2/Flu/RSV Assay on the [employer] GeneXpert Instrument. This test should be ordered [...] management. This test was validated by the [facility] [employer]. These laboratories are certified under the Clinical Laboratory Improvement Amendments of 1988 (CLIA-88) as qualified to perform high complexity laboratory testing. Champ Madrid MD LAB - MICRO GENERAL ORDERABLES Performing Organization Address City/[facility]/ZIP Co de Phone Number LABORATORY [facility] Lab [address] Lab (1st floor, no room number) [place] [address], [facility] [phone] * (ABNORMAL) INR (05/22/2023 12:39 AM GRAVEL ROOFER) INR 2.74(H) 0.85 - 1.15 05/22/2023 1:40 AM GRAVEL ROOFER LABORATORY Blood BLOOD SPECIMEN / Unknown Venipuncture / Unknown 05/22/2023 12:39 AM GRAVEL ROOFER 05/22/2023 12:47 AM GRAVEL ROOFER Champ Madrid MD LAB - BLOOD ORDERABL ES Performing Organization Address [facility]/ZIP Co de Phone Number LABORATORY [facility] Lab [address] [employer] Lab (1st floor, no room number) [place] [address], [facility] [phone] * (ABNORMAL) Basic metabolic panel (BMP) (05/22/2023 12:39 AM GRAVEL ROOFER) Pathologist [facility] Sodium 142 135 - 145 mmol/L 05/22/2023 1:17 AM GRAVEL ROOFER LABORATORY Comment:Reference intervals for this test were updated on 02/24/2023 to more accurately reflect our healthy population. There may be differences in the flagging of prior results with similar values performed with this method. Interpretation of those prior results can be made in the context of the updated reference intervals. Potassium 3.7 3.4 - 5.3 mmol/L 05/22/2023 1:17 AM GRAVEL ROOFER LABORATORY Chloride 106 98 - 107 mmol/L 05/22/2023 1:17 AM GRAVEL ROOFER LABORATORY Carbon Dioxide (CO2) 23 22 - 29 mmol/L 05/22/2023 1:17 AM GRAVEL ROOFER LABORATORY Anion Gap 13 7 - 15 mmol/L 05/22/2023 1:17 AM GRAVEL ROOFER LABORATORY Urea Nitrogen 10.3 8.0 - 23.0 mg/dL 05/22/2023 1:17 AM [facility] LABORATORY Creatinine 0.50(L) 0.51 - 0.95 mg/dL 05/22/2023 1:17 AM GRAVEL ROOFER RH LABORATORY GFR Estimate >90 >60 mL/min/1. 73m2 05/22/2023 1:17 AM GRAVEL ROOFER LABORATORY Calcium 8.2(L) 8.8 - 10.2 mg/dL 05/22/2023 1:17 AM GRAVEL ROOFER RH LABORATORY Glucose 137(H) 70 - 99 mg/dL 05/22/2023 1:17 AM GRAVEL ROOFER RH LABORATORY Blood BLOOD SPECIMEN / Unknown Venipuncture / Unknown 05/22/2023 12:39 AM GRAVEL ROOFER 05/22/2023 12:47 AM GRAVEL ROOFER Champ Madrid MD LAB - BLOOD ORDERABL ES RH LABORATORY [facility] Acute Care Lab [address] [facility] Lab (1st floor, no room number) [place] [address], [facility] [phone] from Last 3 Months Advance Directives For more information, please contact: [phone] Latest Code Status on File Code Status Date Activated Date Inactivated Comments Full Code 07/09/2021 11:23 AM 07/13/2021 7:43 PM All b asic and advanced life-sustaining interventions are performed as appropriate Question Answer Comments Code status determined by: Discussion with patient/ legal decision maker Care Teams Chocolate Dipper Relationship Specialty Start Date End Date Adams Barrera [address] [place] [address] [address] [place] [address] PCP - General 03/30/20 Celia Kumar MD [address] [facility] [address] [place] [address] Plastic Surgery 04/20/15 Charan Corbin MD [address] [facility] [address] [place], [place] [address] INTERNAL MEDICINE - ENDOCRINOLOGY, DIABETES & METABOLISM 06/19/15 [place] [address] [address] [address] Assigned PCP 03/21/21 Greta Thao APRN METAPHYSICS TEACHER [facility] [address] [place] [address] Nurse Practitioner Cardiology 06/09/23
--- OUTSIDE RECORDS SUMMARY | 2023-06-16 10:44 | XMS_ITS | Continuity of Care Document ---
Author Name Unknown Organization [facility] Address [address] [place] [address] Phone Care Team Providers Care Regional Account Director Name Role Phone Odalys BOLES, Homar [...] C, [address], [place], [place], [id number], [place] tel:[phone] [facility] No Information 8 Odalys Graf. [facility], [address] [place] [address] [address], [place], [place], [id number] , [place]. tel:[phone] [facility], [address], [place], [place], [id number], [place] tel:[phone] [facility] No Information 8 Odalys Graf. [facility], [address] [place] [address] [address], [place], [place], [id number] , [place]. tel:[phone] [facility], [address], [place], [id number], [place] tel:[phone] [facility] No Information 8 Rodrick Pop. [facility], [address] [place] [address] [address], [place], [address] , [place]. tel:[phone] Referring Provider: Homar Morrow, [facility] [address] [place] [address] [address], [place], [address] . tel:[phone] [facility], [address], [place], [id number], [place] tel:[phone] [facility] No Information 6 8 Odalys Graf. [facility], [address], [place], [place], [address] , [place]. [phone] Referring Provider: Homar Morrow, [facility] [address], [place], [address] . tel:[phone] Office/Outpat ient Visit,Est, Mod [facility], [address], [place], [place], [address], [place] tel:[phone] [facility] Spinal stenosis, lumbar region 5 7 Odalys Graf. [facility], [address], [place], [place], [address] , [place]. [phone] Referring Provider: Homar Morrow, [facility] [address], [place], [address] . tel:[phone] [facility], [address], [place], [address], [place] tel:[phone] [facility] Spinal stenosis, lumbar region [phone] Odalys Graf. [facility], [address], [place], [address] , [place]. [phone] Referring Provider: Homar Morrow, [facility] [address], [place], [address] . tel:[phone] [facility], [address], [place], [address], [place] tel:[phone] [facility] Arthrodesis status 1-201 6 Odalys Graf. [facility], [address], [place], [address] , [place]. [phone] [facility], [address], [place], [id number], [place] tel:[phone] [facility] No Information Sep-2 6 Odalys Rowlandin. [facility], [address], [place], [id number] , [place]. tel:[phone] Referring Provider: Homar Morrow, [facility] [address], [place], [address] . tel:[phone] Family History Family Member Type Diagnosis Age At Onset No Information Payers Payer name Insurance type Covered green party ID Authoreneida aaron(s) Medicare [id number] Social History Type Description Quantity Date Captured [...]
--- OUTSIDE RECORDS SUMMARY | 2023-06-16 10:45 | XMS_ITS | Encounter Summary ---
Author Name Unknown Organization [facility] Address [address] [place] [address] Care Team Providers Care Senior Patrol Agent Name Role Phone José, Celia Garcia MD Unavailable [phone] Charan Corbin MD Unavailable [phone] Adams Barrera Primary Care Provider [phone] Deborah Walsh MD Unavailable Reason for Visit * Reason Onset Date Comments Patient Request 05/22/2023 Encounter Details Date Type Department Care Team (Late st Contact Info) Description 05/22/2023 Telephone [facility] [address] [place] [address] Amanda Abdi, RN Patient Request Social History Tobacco Use Types Packs/Day Years [...] often do you attend chur ch or congregation services? More than 4 times per year 07/05/2021 Do you belong to any clubs o r organizations such as pentecostal groups, unions, fraternal or athletic groups, or school groups? No 07/05/2021 Attends Club or Organization Meetings Not on charels e 07/05/2021 Are you , , di [...] Answer Date Recorded PHQ-2 Score 1 07/20/2019 [facility] of Occupat ional Health - Occupational Stress [...] money to buy more. Never true 07/05/19 22 Within the past 12 months, t he [...] place to sleep or slept in a skilled nursing (including now)? No 07/05/2021 Adolescent Education Answer Date Record ed Getting School Help Needed Not on file 02/20 Sex and Gender Information Value Date Recorded Sex Assigned at Not on file Gender Identity Not on file Sexual Orientation Not on file documented as of this encounter Miscellaneous Notes * Telephone Encounter - Amanda Abdi RN - 05/22/2023 4:05 AM WINDOWS SERVER ARCHITECT Caller only provided 2 identifiers (name and ). Pt states she was discharged from [facility] ED due to stable condition, has COVID and O2 sats 88% but were able to get it to 90s. Now pt calling number on then back of her card to get a ride home. FNA advised that she called the nurse line and we do not offer this service, and unfortunately unable to provide more information. Advised to call a cab or rideshare. Pt verbalized understanding and hung up. Amanda Abdi RN/[facility] OWS SERVER ARCHITECT documented in this encounter Plan of Treatment Upcoming Encounters Date Type Department Care Team (Late st Contact Info) Description 06/16/2023 3:30 PM WINDOWS SERVER ARCHITECT Office Visit [facility] [address] [place] [phone] Greta Thao APRN [facility] [address] [address] [place] [address] documented as of this encounter Visit Diagnoses Not on filedocumented in this encounter Additional Health Concerns Infection Onset Date Last Indicated Resolved Time Rule Out COVID-19 05/22/2023 05/22/2023 05/22/2023 1:25 AM WINDOWS SERVER ARCHITECT COVID-19 05/22/2023 05/22/2023 06/12/2023 11:3 9 PM WINDOWS SERVER ARCHITECT documented as of this encounter Care Teams Senior Patrol Agent Relationship Specialty Start Date End Date Adams Barrera [address] [facility] [address] [place] [address] PCP - General 03/30/20 Celia Kumar MD [address] [facility] [address] [place], [place] [address] Plastic Surgery 04/20/15 Charan Corbin MD [address] [facility] [address] [place], [place] [address] INTERNAL MEDICINE - ENDOCRINOLOGY, DIABETES & METABOLISM 06/19/15 [place] [address] [place] [address] Assigned PCP 03/21/21 documented as of this encounter
--- OUTSIDE RECORDS SUMMARY | 2023-06-16 10:45 | XMS_ITS | Encounter Summary ---
Author Name Unknown Organization [facility] Address [address] [place] [address] Care Team Providers Care Supervisor Major Appliance Assembly Name Role Phone Celia Kumar MD Unavailable [phone] Charan Corbin MD Unavailable [phone] Celia Kumar MD Unavailable [phone] Adams Barrera Primary Care Provider [phone] Carolina De Dios ENGINEERED WOOD DESIGNER WINDOW AND SIDING CRAFTSMAN Unavailable [phone] Deborah Walsh MD Unavailable Greta Thao ENGINEERED WOOD DESIGNER WINDOW AND SIDING CRAFTSMAN Unavailable + [phone] Encounter Details Date Type Department Care Team (Late st Contact Info) Description 07/15/2021 Community Resource Summary INTERFACED REPORT Social History Tobacco Use Types Packs/Day Years [...] often do you attend chur ch or anabaptism services? More than 4 times per year 07/05/2021 Do you belong to any clubs o r organizations such as taoist groups, unions, fraternal or athletic groups, or [...] Answer Date Recorded PHQ-2 Score 1 07/20/2019 [facility] of Occupat ional Health - Occupational Stress [...] place to sleep or slept in a prison (including now)? No 07/05/2021 Sex and Gender Information Value Date Recorded Sex Assigned at Not on file Gender Identity Not on file Sexual Orientation Not on file COVID-19 Exposure Response Date Recorded In the last month, have you been in contact with someone who was confirmed or suspected to have Coronavirus / COVID-19? No / Unsure 07/05/2021 9:03 AM CEO AND FOUNDER documented as of this encounter Plan of Treatment Upcoming Encounters Date Type Department Care Team (Late st Contact Info) Description 06/16/2023 3:30 PM CEO AND FOUNDER Office Visit [address] [place] [address] Greta Thao APRN [facility] [address] [address] [place] [address] documented as of this encounter Visit Diagnoses Not on filedocumented in this encounter Additional Health Concerns Infection Onset Date Last Indicated Resolved Time Rule Out COVID-19 05/22/2023 05/22/2023 05/22/2023 1:25 AM CEO AND FOUNDER COVID-19 05/22/2023 05/22/2023 06/12/2023 11:3 9 PM CEO AND FOUNDER documented as of this encounter Care Teams Supervisor Major Appliance Assembly Relationship Specialty Start Date End Date Adams Barrera [address] [place] [address] PCP - General 03/30/20 Celia Kumar MD [address] [facility] [address] [place] [address] Plastic Surgery 04/20/15 Charan Corbin MD [address] [facility] [address] [place] [address] INTERNAL MEDICINE - ENDOCRINOLOGY, DIABETES & METABOLISM 06/19/15 Celia Kumar MD [address] [facility] [address] [place] [address] Assigned Surgical Provider 03/23/20 12/20/21 Carolina De Dios APRN WINDOW AND SIDING CRAFTSMAN [address] [facility] [address] [place], [place] [address] Assigned Heart and Vascular Provider 12/14/20 09/12/22 [place] [address] [place] [address] Assigned PCP 03/21/21 Greta Thao APRN WINDOW AND SIDING CRAFTSMAN [facility] [address] [place] [address] Nurse Practitioner Cardiology 06/09/23 documented as of this encounter
--- OUTSIDE RECORDS SUMMARY | 2023-06-16 10:45 | XMS_ITS | Encounter Summary ---
Author Name Unknown Organization [facility] Address [address] [place] [address] Care Team Providers Care Claims Collector Name Role Phone Celia Kumar MD Unavailable [phone] Charan Corbin MD Unavailable Celia Kumar MD Unavailable [phone] Adams Barrera Primary Care Provider [phone] Carolina De Dios APRN STEAM CLEANING MACHINE OPERATOR Unavailable [phone] Deborah Walsh MD Unavailable Greta Thao APRN STEAM CLEANING MACHINE OPERATOR Unavailable [phone] Reason for Visit * Reason Onset Date Comments Medication Question 06/26/2021 Rx Vyvanse Encounter Details Date Type Department Care Team (Late st Contact Info) Description 06/26/2021 Telephone [facility] [address] [facility] [address] [place] [address] Carolina De Dios, SALES REPRESENTATIVE [employer] STEAM CLEANING MACHINE OPERATOR [address] [facility] [address] [place] [address] (work) Medication Question (Rx Vyvanse ) Social History Tobacco Use Types Packs/Day Years Used Date Smoking Tobacco: Former Cigarettes 0.1 Q uit: 07/02/2020 Hookah Smokeless Tobacco: Never Alcohol Use Standard Drinks/Week Comments Never 0 (1 standard drink = 0.6 oz pur e alcohol) former PHQ-2 Answer Date Recorded PHQ-2 Score 1 07/20/2019 Sex and Gender Information Value Date Recorded Sex Assigned at Not on file Gender Identity Not on file Sexual Orientation Not on file COVID-19 Exposure Response Date Recorded In the last month, have you been in contact with someone who was confirmed or suspected to have Coronavirus / COVID-19? No / Unsure 06/19/2021 7:08 AM TELEGRAPH AND TELETYPE OPERATOR documented as of this encounter Miscellaneous Notes * Telephone Encounter - Acacai Choudhary - 07/02/2021 10:56 AM CST Patient called and spoke with appeals writer, she states she is still waiting to hear from care team.Pleasecall patient at [phone]. GRAPH AND TELETYPE OPERATOR * Telephone Encounter - Katerin Isabel - 06/26/2021 12:58 PM CST [facility] Phone Message May a detailed message be left on voicemail: no Reason for Call: Other: Brandee called to request clarification if Rx Vyvanse can be used safely without crossing the heart? If so, please provide a wriiten E- mail with approval for use to [email or web address]. If you have any questions, please reach out to Brandee's daughter Keyla Rivas at . Action Taken: Other: [facility] Travel Screening: Not Applicable GRAPH AND TELETYPE OPERATOR documented in this encounter Plan of Treatment Upcoming Encounters Date Type Department Care Team (Late st Contact Info) Description 06/16/2023 3:30 PM TELEGRAPH AND TELETYPE OPERATOR Office Visit [place] [id number] [facility] [address] [place] [address] Greta Thao APRN STEAM CLEANING MACHINE OPERATOR [facility] [address] [place] [address] documented as of this encounter Visit Diagnoses Not on filedocumented in this encounter Additional Health Concerns Infection Onset Date Last Indicated Resolved Time Rule Out COVID-19 05/22/2023 05/22/2023 05/22/2023 1:25 AM TELEGRAPH AND TELETYPE OPERATOR COVID-19 05/22/2023 05/22/2023 06/12/2023 11:3 9 PM TELEGRAPH AND TELETYPE OPERATOR documented as of this encounter Care Teams Claims Collector Relationship Specialty Start Date End Date Adams Barrera [address] [facility] [address] [place] [address] PCP - General 03/30/20 Celia Kumar MD [address] [facility] [address] [place] [address] Plastic Surgery 04/20/15 Charan Corbin MD [address] [address] INTERNAL MEDICINE - ENDOCRINOLOGY, DIABETES & METABOLISM 06/19/15 Celia Kumar MD [address] [address] Assigned Surgical Provider 03/23/20 12/20/21 Carolina De Dios APRN STEAM CLEANING MACHINE OPERATOR [address] [facility] [address] [place] [address] Assigned Heart and Vascular Provider 12/14/20 09/12/22 [place] [address] [place] [address] Assigned PCP 03/21/21 Greta Thao APRN STEAM CLEANING MACHINE OPERATOR [facility] [address] [place] [address] Nurse Practitioner Cardiology 06/09/23 documented as of this encounter
--- OUTSIDE RECORDS SUMMARY | 2023-06-16 10:45 | XMS_ITS | Encounter Summary ---
Author Name Unknown Organization [facility] Address [address] [place] [address] Care Team Providers Care Senior Landscape Architect Name Role Phone Celia Kumar MD Unavailable [phone] Charan Corbin MD Unavailable [phone] Celia Kumar MD Unavailable [phone] Adams Barrera Primary Care Provider [phone] Carolina De Dios FIELD CASHIER STAFF MIDWIFE Unavailable [phone] Deborah Walsh MD Unavailable Greta Thao FIELD CASHIER STAFF MIDWIFE Unavailable + [phone] Encounter Details Date Type Department Care Team (Late st Contact Info) Description 03/14/2021 Documentation Only INTERFACED REPORT Unknown, Provider Social History Tobacco Use Types Packs/Day Years Used Date Smoking Tobacco: Former Cigarettes 0.1 Q uit: 01/31/2020 Smokeless Tobacco: Never Comments:smokes maybe 1 cig/ month Alcohol Use Standard Drinks/Week Comments Never 0 [...] have Coronavirus / COVID-19? No / Unsure 03/13/2021 8:28 AM CDT documented as of this encounter Plan of Treatment Upcoming Encounters Date Type Department Care Team (Late st Contact Info) Description 06/16/2023 3:30 PM AUTOMATIC LEHR OPERATOR Office Visit [facility] [address] [facility] [address] [place] [address] Greta Thao APRN [facility] [address] [address] [place] [address] documented as of this encounter Visit Diagnoses Not on filedocumented in this encounter Additional Health Concerns Infection Onset Date Last Indicated Resolved Time Rule Out COVID-19 05/22/2023 05/22/2023 05/22/2023 1:25 AM AUTOMATIC LEHR OPERATOR COVID-19 05/22/2023 05/22/2023 06/12/2023 11:3 9 PM AUTOMATIC LEHR OPERATOR documented as of this encounter Care Teams Senior Landscape Architect Relationship Specialty Start Date End Date Adams Barrera [address] [facility] [address] [place], [place] [address] PCP - General 03/30/20 Celia Kumar MD [address] [facility] [address] [place], [place] [address] Plastic Surgery 04/20/15 Charan Corbin MD [address] [facility] [address] [place], [place] [address] INTERNAL MEDICINE - ENDOCRINOLOGY, DIABETES & METABOLISM 06/19/15 Celia Kumar MD [address] [facility] [address] [place] [address] Assigned Surgical Provider 03/23/20 12/20/21 Carolina De Dios APRN STAFF MIDWIFE [address] [facility] [address] [place] [address] Assigned Heart and Vascular Provider 12/14/20 09/12/22 [place] [address] [place] [address] Assigned PCP 03/21/21 Greta Thao APRN STAFF MIDWIFE [facility] [address] [address] [place] [address] Nurse Practitioner Cardiology 06/09/23 documented as of this encounter
--- OUTSIDE RECORDS SUMMARY | 2023-06-16 10:45 | XMS_ITS | Encounter Summary ---
Author Name Unknown Organization [facility] Address [facility] [place] [address] Care Team Providers Care Truck Driver Rubbish Collector Name Role Phone Celia Kumar MD Unavailable [phone] Charan Corbin MD Unavailable [phone] Celia Kumar MD Unavailable [phone] Adams Barrera Primary Care Provider [phone] Carolina De Dios ITALIAN LECTURER MAINTENANCE MECHANIC TECHNICIAN Unavailable + [phone] Deborah Walsh MD Unavailable Greta Thao ITALIAN LECTURER MAINTENANCE MECHANIC TECHNICIAN Unavailable + [phone] Encounter Details Date Type Department Care Team (Late st Contact Info) Description 11/02/2020 External Order Results [facility] [address] [place] [address] Outside, Provider Social History Tobacco Use Types Packs/Day Years Used Date Smoking Tobacco: Former Cigarettes 0.1 Smokeless Tobacco: Never Comments:smokes maybe 1 cig/ month Alcohol Use Standard Drinks/Week Comments Yes 0 [...] have Coronavirus / COVID-19? No / Unsure 11/01/2020 4:19 PM CDT documented as of this encounter Plan of Treatment Upcoming Encounters Date Type Department Care Team (Late st Contact Info) Description 06/16/2023 3:30 PM OPEN HEARTH DOOR LINER Office Visit [facility] [address] [facility] [address] [place] [phone] Greta Thao APRN [facility] [address] [place] [address] documented as of this encounter Visit Diagnoses Not on filedocumented in this encounter Additional Health Concerns Infection Onset Date Last Indicated Resolved Time Rule Out COVID-19 05/22/2023 05/22/2023 05/22/2023 1:25 AM OPEN HEARTH DOOR LINER COVID-19 05/22/2023 05/22/2023 06/12/2023 11:3 9 PM OPEN HEARTH DOOR LINER documented as of this encounter Care Teams Truck Driver Rubbish Collector Relationship Specialty Start Date End Date Adams Barrera [address] [facility] [address] [place], [place] [address] PCP - General 03/30/20 Celia Kumar MD [address] [facility] [address] [place], [place] [address] Plastic Surgery 04/20/15 Charan Corbin MD [address] [facility] [address] [place], [place] [address] INTERNAL MEDICINE - ENDOCRINOLOGY, DIABETES & METABOLISM 06/19/15 Celia Kumar MD 420 [facility] [address] [place] [address] Assigned Surgical Provider 03/23/20 12/20/21 Carolina De Dios APRN MAINTENANCE MECHANIC TECHNICIAN [address] [facility] [address] [place], [place] [address] Assigned Heart and Vascular Provider 12/14/20 09/12/22 [place] [address] [place] [address] Assigned PCP 03/21/21 Greta Thao APRN MAINTENANCE MECHANIC TECHNICIAN [facility] [address] [place] [address] Nurse Practitioner Cardiology 06/09/23 documented as of this encounter
--- OUTSIDE RECORDS SUMMARY | 2023-06-16 10:45 | XMS_ITS | Encounter Summary ---
Author Name Unknown Organization [facility] Address [address] [place] [address] Care Team Providers Care Splicer Machine Operator Name Role Phone Joés, Celia Garcia MD Unavailable [phone] Charan Corbin MD Unavailable Adams Barrera Primary Care Provider [phone] Deborah Walsh MD Unavailable Reason for Visit * Reason Comments Otalgia Encounter Details Date Type Department Care Team ([facility] st Contact Info) Description 05/22/2023 7:44 AM SACK SEWER MACHINE - 05/22/2023 7:45 AM [facility] Emergency [facility] Emergency Dept [address] [place] [address] Discharge Disposition: Home or Self Care Social History Tobacco Use Types Packs/Day Years [...] often do you attend chur ch or tenriism services? More than 4 times per year 07/05/2021 Do you belong to any clubs o r organizations such as mu-ism groups, unions, fraternal or athletic groups, or [...] Answer Date Recorded PHQ-2 Score 1 07/20/2019 [facility] Occupat ional Health - Occupational Stress [...] place to sleep or slept in a halfway (including now)? No 07/05/2021 Adolescent Education Answer Date Record ed Getting School Help Needed Not on file 02/20 Sex and Gender Information Value Date Recorded Sex Assigned at Not on file Gender Identity Not on file Sexual Orientation Not on file documented as of this encounter Last Filed Vital Signs Vital Sign Reading Time Taken Comments Blood Pressure 143/105 05/22/2023 7:14 AM SACK SEWER MACHINE Pulse 108 05/22/2023 7:14 AM SACK SEWER MACHINE Temperature 36.8 ??C (98.3 ??F) 05/22/2023 7:14 AM CS T Respiratory Rate 20 05/22/2023 7:14 AM SACK SEWER MACHINE Oxygen Saturation 98% 05/22/2023 7:14 AM SACK SEWER MACHINE Inhaled Oxygen Concentration - - Weight - - Height - - Body Mass Index - - documented in this encounter Medications at Time of Discharge Medication Sig Dispensed Refills Start Date End Date albuterol (VENTOLIN HFA) 108 (90 Base) MCG/ACT IN inhaler Inhale 2 puffs into the lungs every 6 hours as needed 0 01/02/2019 byclo-k-lmgoqhpruorci (BEANO) tablet Take 1 tablet by mouth 3 times daily (before meals) 0 ammonium lactate (LAC-HYDRIN) 12 % external lotion Apply topically 2 times daily as needed (irritation) 0 03/08/2021 artificial saliva (BIOTENE DRY MOUTHWASH) LIQD liquid Swish and spit 15 mLs in mouth every 6 hours as needed for dry mouth 0 12/14/2020 atorvastatin 40 MG PO tablet Take 40 mg by mouth At Bedtime 0 01/29/2019 azelastine 0.1 % NA nasal sprayIndications:stephen rgies [place] 1 spray into both nostrils 2 times daily 0 02/18/2016 BANOPHEN 25 MG capsule Take 25 mg by mouth every 4 hours as needed for sleep 0 01/28/2021 calcium carbonate 1250 MG/5ML PO SUSP suspension Take 1,250 mg by mouth daily 0 12/28/2018 cyanocobalamin 1000 MCG/ML IJ injection Inject 1 mL into the muscle every 30 days 0 07/15/2019 diclofenac (VOLTAREN) 1 % topical gel Apply 2 g topically 4 times daily Apply to affected area. 6AM, 12PM, 6PM, 12AM 0 02/02/2020 DIPHENHYDRAMINE HCL PO Take 25 mg by mouth every 4 hours as needed 0 fluticasone (FLONASE) 50 MCG/ACT nasal spray [place] 1 spray into both nostrils 2 times daily 0 02/08/2020 fluticasone-salmetero l (ADVAIR) 250-50 MCG/DOSE inhalerIndications:As thma Inhale 1 puff into the lungs 2 times daily 0 12/14/2020 MARY-LANTA 200-200-20 MG/5ML SUSP suspension Take 10 mLs by mouth 4 times daily as needed for indigestion 0 06/03/2021 hydrocortisone (CORTAID) 1 % external cream Apply topically 4 times daily as needed for rash 0 06/03/2021 HYDROmorphone (DILAUDID) 2 MG tabletIndications:Ope n wound Take 1 tablet (2 mg) by mouth every 6 hours as needed for severe pain 12 tablet 0 06/26/2020 hydrOXYzine (VISTARIL) 50 MG capsuleIndications:St atus post total right knee replacement Take 1 capsule (50 mg) by mouth 3 times daily as needed for itching 30 capsule 0 07/13/2021 Incontinence Supply Disposable (DEPEND FITTED BRIEFS SM/MED) MISC For home use. Will use 2 per day. Size large. 0 04/28/2018 ipratropium - albuterol 0.5 mg/2.5 mg/3 mL (DUONEB) 0.5-2.5 (3) MG/3ML neb solution Take 1 vial by nebulization 2 times daily 0 02/25/2021 loratadine (CLARITIN) 10 MG tablet Take 10 mg by mouth daily 0 01/25/2021 metFORMIN (GLUCOPHAGE) 500 MG tablet Take 500 mg by mouth 2 times daily (with meals) 0 MILK OF MAGNESIA 400 MG/5ML PO suspension Take 30 mLs by mouth daily as needed for constipation 0 05/18/2019 nystatin 728160 UNIT/GM EX external powder Apply topically 2 times daily as needed 0 03/19/2019 ondansetron (ZOFRAN-ODT) 4 MG ODT tab Take 4 mg by mouth every 8 hours as needed for nausea 0 pantoprazole (PROTONIX) 40 MG EC tablet Take 40 mg by mouth daily 0 12/14/2020 polyethylene glycol (MIRALAX) 17 g packet Take 1 packet by mouth 2 times daily 0 prazosin (MINIPRESS) 2 MG capsule Take 2 mg by mouth At Bedtime 0 06/18/2021 pregabalin (LYRICA) 100 MG capsule Take 100 mg by mouth 3 times daily 0 06/17/2021 senna-docusate (SENOKOT-S/PERICOLACE ) 8.6-50 MG tablet Take 3 tablets by mouth 2 times daily 0 sertraline (ZOLOFT) 100 MG tablet Take 200 mg by mouth daily 0 01/25/2021 Sharps Container (TCRXOP-V-SRBLK LOCKING BRACKET) MISC Length: calf Strength: 16-20 mmHg Circumference in cm: For calf: Ankle 12, Calf 18.5 , Ankle to calf length 12 . 0 03/15/2018 SM GAS RELIEF EXTRA STRENGTH 125 MG PO CAPS Take 1 capsule by mouth 4 times daily 0 07/15/2019 sotalol (BETAPACE) 120 MG tabletIndications:Par oxysmal atrial fibrillation (H) Take 0.5 tablets (60 mg) by mouth 2 times daily 0 07/10/2021 SUMAtriptan (IMITREX) 50 MG tablet Take 50 mg by mouth at onset of headache for migraine May repeat x1 in 2 hours if needed. 0 06/10/2021 torsemide 20 MG PO tablet Take 50 mg by mouth daily 0 04/25/2019 Vaginal Lubricant (REPLENS) GEL Place vaginally every 72 hours as needed (dryness) 0 09/23/2019 warfarin ANTICOAGULANT (COUMADIN) 2 MG tablet Take 3-4 mg by mouth See Admin Instructions Take 3 mg on Sundays. Take 4 mg all other days of the week. 0 zolpidem (AMBIEN) 5 MG tablet Take 5 mg by mouth At Bedtime 0 06/17/2021 nirmatrelvir and ritonavir (PAXLOVID) 300 mg/100 mg therapy pack Take 3 tablets by mouth 2 times daily for 5 days 30 tablet 0 05/22/2023 05/27/2023 documented as of this encounter ED Notes * Brandy Novak RN - 05/22/2023 7:44 AM CST Patient states she is leaving because her Uber is here. SEWER MACHINE * Mali Brown RN - 05/22/2023 7:13 AM CST Patient presents with complaints of left ear pain. Patient was seen here this morning and diagnosedwith Covid Patient states that her ear was bothering her at that time and she had mentioned it to the doctor. ABC intact without need for intervention at this time. SEWER MACHINE documented in this encounter Plan of Treatment Upcoming Encounters Date Type Department Care Team (Late st Contact Info) Description 06/16/2023 3:30 PM SACK SEWER MACHINE Office Visit [facility] [address] [place] [phone] Greta Thao APRN [facility] [address] [place] [phone] documented as of this encounter Visit Diagnoses Not on filedocumented in this encounter Additional Health Concerns Infection Onset Date Last Indicated Resolved Time COVID-19 05/22/2023 05/22/2023 06/12/2023 11:3 9 PM SACK SEWER MACHINE documented as of this encounter Care Teams Splicer Machine Operator Relationship Specialty Start Date End Date Adams Barrera [address] [place] [id number] PCP - General 03/30/20 Celia Kumar MD [address] [facility] [address] [place], [place] [address] Plastic Surgery 04/20/15 Charan Corbin MD [address] [facility] [address] [place], [place] [address] INTERNAL MEDICINE - ENDOCRINOLOGY, DIABETES & METABOLISM 06/19/15 [place] [address] [place] [address] Assigned PCP 03/21/21 documented as of this encounter
--- OUTSIDE RECORDS SUMMARY | 2023-06-16 10:45 | XMS_ITS | Encounter Summary ---
Author Name Unknown Organization [facility] Address [address] [place] [address] Care Team Providers Care Business Objects Report Developer Name Role Phone José, Celia Garcia MD Unavailable [phone] Charan Corbin MD Unavailable [phone] Adams Barrera Primary Care Provider Deborah Walsh MD Unavailable Encounter Details Date Type Department Care Team (Latest Contact Info) Description 05/22/2023 Travel Social History Tobacco Use Types Packs/Day Years [...] file 07/05/2021 How often do you attend [facility] or buddhism services? More than 4 times per year 07/05/2021 Do you belong to any clubs o r organizations such as scientologist groups, unions, fraternal or athletic groups, or [...] Answer Date Recorded PHQ-2 Score 1 07/20/2019 [facility] of Occupat ional Health - Occupational Stress [...] st Contact Info) Description 06/16/2023 3:30 PM KNOCKDOWN MAN Office Visit [place] [id number] [facility] [address] [place] [phone] Greta Thao APRN [facility] [address] [place] [phone] documented as of this encounter Visit Diagnoses Not on filedocumented in this encounter Additional Health Concerns Infection Onset Date Last Indicated Resolved Time Rule Out COVID-19 05/22/2023 05/22/2023 05/22/2023 1:25 AM KNOCKDOWN MAN COVID-19 05/22/2023 05/22/2023 06/12/2023 11:3 9 PM KNOCKDOWN MAN documented as of this encounter Care Teams Business Objects Report Developer Relationship Specialty Start Date End Date Adams Barrera [address] [facility] [address] [place], [place] [phone] PCP - General 03/30/20 Celia Kumar MD [address] [facility] [address] [place], [place] [address] Plastic Surgery 04/20/15 Charan Corbin MD [address] [facility] [address] [place] [address] INTERNAL MEDICINE - ENDOCRINOLOGY, DIABETES & METABOLISM 06/19/15 [place] [address] [place] [address] Assigned PCP 03/21/21 documented as of this encounter
--- OUTSIDE RECORDS SUMMARY | 2023-06-16 10:45 | XMS_ITS | Encounter Summary ---
Author Name Unknown Organization [facility] Address Replaced by [facility] [place] [address] Care Team Providers Care Assessment Specialist Name Role Phone Celia Kumar MD Unavailable [phone] Charan Corbin MD Unavailable [phone] Celia Kumar MD Unavailable [phone] Adams Barrera Primary Care Provider [phone] Carolina De Dios FOOD SERVICE ORDER CLERK WHITE SUGAR SUPERVISOR Unavailable + [phone] Deborah Walsh MD Unavailable Greta Thao FOOD SERVICE ORDER CLERK WHITE SUGAR SUPERVISOR Unavailable + [phone] Encounter Details Date Type Department Care Team (Late st Contact Info) Description 11/10/2020 Records - [facility] CONVERSION Scan, Non-Provider Social History Tobacco Use Types Packs/Day Years [...] st Contact Info) Description 06/16/2023 3:30 PM DRIVER/REFUSE COLLECTOR Office Visit [facility] [address] [place] [phone] Greta Thao APRN [facility] [address] [place] [phone] documented as of this encounter Visit Diagnoses Not on filedocumented in this encounter Additional Health Concerns Infection Onset Date Last Indicated Resolved Time Rule Out COVID-19 05/22/2023 05/22/2023 05/22/2023 1:25 AM DRIVER/REFUSE COLLECTOR COVID-19 05/22/2023 05/22/2023 06/12/2023 11:3 9 PM DRIVER/REFUSE COLLECTOR documented as of this encounter Care Teams Assessment Specialist Relationship Specialty Start Date End Date Adams Barrera [address] [facility] [address] [place], [place] [phone] PCP - General 03/30/20 Celia Kumar MD [address] [facility] [address] [place], [place] [phone] Plastic Surgery 04/20/15 Charan Corbin MD [address] [facility] [address] [place], [place] [phone] INTERNAL MEDICINE - ENDOCRINOLOGY, DIABETES & METABOLISM 06/19/15 Celia Kumar MD [address] [facility] [address] [place], [place] [phone] Assigned Surgical Provider 03/23/20 12/20/21 Carolina De Dios APRN [employer]ITE [employer]GAR SUPERVISOR [address] [facility] [address] [place], [place] [phone] Assigned Heart and Vascular Provider 12/14/20 09/12/22 [place] [address] [place] [address] Assigned PCP 03/21/21 Greta Thao APRN [employer] [facility] [address] [place] [phone] Nurse Practitioner Cardiology 06/09/23 documented as of this encounter
--- OUTSIDE RECORDS SUMMARY | 2023-06-16 10:45 | XMS_ITS | Encounter Summary ---
Author Name Unknown Organization [facility] Address [address] [place] [address] Care Team Providers [facility] [place] [facility] Name Role Phone Celia Kumar MD Unavailable Charan Corbin MD Unavailable Adams Barrera Primary Care Provider [phone] Deborah Walsh MD Unavailable Reason for Visit * Reason Comments Shortness of Breath Encounter Details Date Type Department Care Team ([facility] st Contact Info) Description 05/22/2023 12:25 AM TRAINING CONSULTANT - 05/22/2023 4:24 AM [facility] Emergency [facility] Emergency Dept [address] [place] [address] Champ Madrid MD [facility] [address] [place], [place] [id number] COVID-19 virus infection; Chronic anemia; Warfarin anticoagulation; Other fatigue; Chronic atrial fibrillation (H) Discharge Disposition: Home or Self Care Social [...] often do you attend chur ch or anabaptist services? More than 4 times per year 07/05/2021 Do you belong to any clubs o r organizations such as spiritism groups, unions, fraternal or athletic groups, or [...] Answer Date Recorded PHQ-2 Score 1 07/20/2019 [facility] - Occupational [...] place to sleep or slept in a group home (including now)? No 07/05/2021 Adolescent Education Answer Date Record ed Getting School Help Needed Not on file 02/20 Sex and Gender Information Value Date Recorded Sex Assigned at Not on file Gender Identity Not on file Sexual Orientation Not on file documented as of this encounter Last Filed Vital Signs Vital Sign Reading Time Taken Comments Blood Pressure 177/117 05/22/2023 2:00 AM TRAINING CONSULTANT Pulse 88 05/22/2023 2:15 AM TRAINING CONSULTANT Temperature 36.7 ??C (98.1 ??F) 05/22/2023 12:[address] Respiratory Rate 23 05/22/2023 2:15 AM TRAINING CONSULTANT Oxygen Saturation 99% 05/22/2023 3:00 AM TRAINING CONSULTANT Inhaled Oxygen Concentration - - Weight - - Height - - Body Mass Index - - documented in this encounter Discharge Instructions * Discharge Instructions* Champ Madrid MD - 05/22/2023 2:52 AM TRAINING CONSULTANT Since we are starting Paxlovid for your COVID infection, it is very important that you stop taking the following medication while you are on Paxlovid: Atorvastatin Warfarin Hydroxyzine Advair Discharge Instructions COVID-19 COVID-19 is the disease caused by a new coronavirus. The virus spreads from [id number] primarily by droplets when an infected person coughs or sneezes and the droplets are then breathed in by another person. Symptoms of COVID-19 Many people have no symptoms or mild symptoms. Symptoms usually appear within a few days, but up [id number], after contact with a person with COVID-19. A mild COVID-19 illness is like a cold and can have fever, cough, sneezing, sore throat, tiredness,headache, and muscle pain. A moderate COVID-19 illness might include shortness of breath or pneumonia on a chest x-ray. A severe COVID-19 illness causes significant breathing problems such as low oxygen levels or more serious pneumonia. Some patients experience loss of taste or smell which is somewhat unique to COVID-19. Isolation and Quarantine Testing is recommended for any person with symptoms that could be COVID-19 and often for those exposed to COVID-19. The best way to stop the spread of the virus is to avoid contact with others. A close contact exposure is being within 6 feet of someone with COVID for 15 minutes. Isolation refers to sick people staying away from people who are not sick. A person in quarantine is limiting activity because they were exposed and are waiting to see if they might become sick. If you test positive for COVID and have no symptoms, you should stay home (isolation) for 5 full days after the day of the test. You should then wear a mask when around others for another 5 days. If you test positive for COVID and have mild symptoms, you should stay home (isolation) for at least 5 days after your symptoms began. You can return to normal activities at that time, wearing a maskwhen around others, for another 5 days as long as your symptoms are improving/resolving and you have been without a fever for 24 hours (without using fever-reducing medicine). If you test positive for COVID and have more than mild symptoms, you should stay home (isolation) for at least 10 days after your symptoms began. You can return to normal activities at that time as long as your symptoms are improving and you have been without a fever for 24 hours (without using fever-reducing medicine). For example, if you have a fever and cough for 6 days, you need to stay home 4 more days with no fever for a total of 10 days. Or, if you have a fever and cough for 10 days, you need to stay home onemore day with no fever for a total of 11 days. If you were exposed to COVID and are not vaccinated (or it has been more than six months from your Pfizer or Moderna vaccine or two months from J&J vaccine), you should stay home (quarantine) for5 days and then wear a mask around others for 5 additional days. A COVID test at day 5 is recommended. If you were exposed to COVID and are vaccinated (had a booster, had two shots of Pfizer or Moderna vaccine in the last five months, or had J&J vaccine within two months), you do not need to quarantine but should wear a mask around others for 10 days and get a COVID test on day 5. If you have symptoms but a negative test, you should stay at home until you have mild/improving symptoms and are without fever for 24 hours, using the same judgment you would for when it is safe to return to work/school from strep throat, influenza, or the common cold. If you worsen, you should consider being re-evaluated. If you are being tested for COVID because of symptoms and your test is pending, you should stay home until you know your test result. More details on isolation and quarantine can be found on this website from the CDC: https://www.cdc.gov/coronavirus/2019-ncov/your-health/quarantine-isolation.html If I have COVID, how should I protect myself and others? Do not go to work or school. Have a friend or relative do your shopping. Do not use public transportation (bus, train) or ridesharing (Lyft, Uber). Separate yourself from other people in your home. As much as possible, you should stay in one room and away from other people in your home. Also, use a separate bathroom, if possible. Avoid handling pets or other animals while sick. Wear a facemask if you need to be around other people and cover your mouth and nose with a tissue when you cough or sneeze. Avoid sharing personal household items. You should not share dishes, drinking glasses, forks/knives/spoons, towels, or bedding with other people in your home. After using these items, they should be washed with soap and water. Clean parts of your home that are touched often (doorknobs, faucets, countertops, etc.) daily. Wash your hands often with soap and water for at least 20 seconds or use an alcohol-based hand home management supervisor containing at least 60% alcohol. Avoid touching your face. Treat your symptoms. You can take Acetaminophen (Tylenol) to treat body aches and fever as needed for comfort. Ibuprofen (Advil or Motrin) can be used as well if you still have symptoms after taking Tylenol. Drink fluids. Rest. Watch for worsening symptoms such as shortness of breath/difficulty breathing or very severe weakness. Employers/workplaces are being asked by the Centers for Disease Control (CDC) to not request notes/documentation for you to return to work or prove that you were ill. You may choose to show your employer this paperwork. Also, repeat testing should not be required to return to work. Exercise/Sports in rare cases, COVID could affect your heart in a way that makes exercise or participation in sports dangerous. If you have a mild COVID illness (fever, cough, sore throat, and similar symptoms but no difficultybreathing or abnormalities of the lung): After your COVID symptoms have resolved, wait 14-days before returning to activity. If you have more than a mild illness (meaning that you have problems with your breathing or lungs) or if you participate in competitive or strenuous activity or have a history of heart disease: Please see your primary doctor/provider prior to return to activity/competition. COVID treatments such as antiviral and antibody medications are available. They are recommended forthose patients who have a risk for developing more severe COVID illness. Importantly, the treatments must be started early in the illness (within 5-7 days, depending on which treatment). These treatments may have been considered today during your visit. If you have other questions, contact your primary doctor/clinic. You can learn more about COVID treatments from the [place] [facility]: https://www.health.[facility].[place].us/diseases/coronavirus/meds.html Return to the Emergency Department if: If you are developing worsening breathing, shortness of breath, or feel worse you should seek medical attention. If you are uncertain, contact your health care provider/clinic. If you need emergency medical attention, call 911 and tell them you have been ill. NING CONSULTANT documented in this encounter Medications at Time of Discharge Medication Sig Dispensed Refills Start Date End Date albuterol (VENTOLIN HFA) 108 (90 Base) MCG/ACT IN inhaler Inhale 2 puffs into the lungs every 6 hours as needed 0 01/02/2019 gqazj-b-sqtndnsadeamu (BEANO) tablet Take 1 tablet by mouth [...] azelastine 0.1 % NA nasal sprayIndications:stephen rgies [place] 1 spray into both nostrils 2 times [...] 0 fluticasone (FLONASE) 50 MCG/ACT nasal spray [place] 1 spray into both nostrils 2 times [...] Incontinence Supply Disposable (DEPEND FITTED BRIEFS SM/MED) [facility] For [facility] use. Will use 2 per [...] as needed for constipation 0 05/18/2019 nystatin 362654 UNIT/GM EX external powder Apply topically 2 [...] by mouth daily 0 01/25/2021 [employer] (FWWBCV-S-FQKKR LOCKING BRACKET) [facility] [place]: calf Strength: 16-20 mmHg Circumference in [...] as of this encounter ED Notes * Ingrid Golden - 05/22/2023 2:20 AM CST Ambulation trial-passed 97% RA while walking with walker. NING CONSULTANT * Yulissa Carr RN - 05/22/2023 12:28 AM CST Images from the original note were not included. Pt BIBA from independent living after O2 sats dropped to the 80's per daughter. Pt tested positive for COVID yesterday. Pt reports chest tightness, SOB & cough. Wheezing noted. Sats stable on RA.Tachycardic, hx of A-fib per pt. BP (!) 140/103 Pulse 104 Temp 98.1 ??F (36.7 ??C) (Oral) Resp 22 SpO2 97% Triage Assessment (Adult) Row Name 05/22/23 0027 Triage Assessment Airway WDL WDL Respiratory WDL Respiratory WDL X Wheezing, SOB per pt Cardiac WDL Cardiac WDL X;rhythm Pulse Rate & Regularity tachycardic Peripheral/Neurovascular WDL Peripheral Neurovascular WDL WDL Cognitive/Neuro/Behavioral WDL Cognitive/Neuro/Behavioral WDL WDL NING CONSULTANT * Kory Andrews RN - 05/22/2023 12:25 AM CST Bed: ED01 Expected date: Expected time: Means of arrival: Comments: [id number] NING CONSULTANT * Champ Madrid MD - 05/22/2023 12:24 AM CST History Chief Complaint: Shortness of Breath The history is provided by the patient. Brandee Brown is a 63 year old female on Coumadin with history of atrial fibrillation, type 2diabetes mellitus, and asthma who presents to the ED via EMS from assisted living for evaluation ofshortness of breath. Brandee reports she tested positive for Covid yesterday and has 3 days of symptoms including a cough and nasal congestion. Yesterday (05/21) she developed shortness of breath and chest tightness, and her O2 sats dropped to the upper-80's. Her Covid vaccination series is up to date. Independent Historian: None - Patient Only Review of External Notes: I reviewed Care Everywhere and updated Epic. Medications: albuterol (VENTOLIN HFA) 108 (90 Base) MCG/ACT IN inhaler seivf-g-ibbytuylbkejk (BEANO) tablet ammonium lactate (LAC-HYDRIN) 12 % external lotion artificial saliva (BIOTENE DRY MOUTHWASH) LIQD liquid atorvastatin 40 MG PO tablet azelastine 0.1 % NA nasal spray BANOPHEN 25 MG capsule calcium carbonate 1250 MG/5ML PO SUSP suspension cyanocobalamin 1000 MCG/ML IJ injection diclofenac (VOLTAREN) 1 % topical gel DIPHENHYDRAMINE HCL PO fluticasone (FLONASE) 50 MCG/ACT nasal spray fluticasone-salmeterol (ADVAIR) 250-50 MCG/DOSE inhaler MARY-LANTA 200-200-20 MG/5ML SUSP suspension hydrocortisone (CORTAID) 1 % external cream HYDROmorphone (DILAUDID) 2 MG tablet hydrOXYzine (VISTARIL) 50 MG capsule Incontinence Supply Disposable (DEPEND FITTED BRIEFS SM/MED) MISC ipratropium - albuterol 0.5 mg/2.5 mg/3 mL (DUONEB) 0.5-2.5 (3) MG/3ML neb solution loratadine (CLARITIN) 10 MG tablet metFORMIN (GLUCOPHAGE) 500 MG tablet MILK OF MAGNESIA 400 MG/5ML PO suspension nystatin [id number] UNIT/GM EX external powder ondansetron (ZOFRAN-ODT) 4 MG ODT tab pantoprazole (PROTONIX) 40 MG EC tablet polyethylene glycol (MIRALAX) 17 g packet prazosin (MINIPRESS) 2 MG capsule pregabalin (LYRICA) 100 MG capsule senna-docusate (SENOKOT-S/PERICOLACE) 8.6-50 MG tablet sertraline (ZOLOFT) 100 MG tablet [employer] (GBLEYS-R-CRMLX LOCKING BRACKET) MISC SM GAS RELIEF EXTRA STRENGTH 125 MG PO CAPS sotalol (BETAPACE) 120 MG tablet SUMAtriptan (IMITREX) 50 MG tablet torsemide 20 MG PO tablet Vaginal Lubricant (REPLENS) GEL warfarin ANTICOAGULANT (COUMADIN) 2 MG tablet zolpidem (AMBIEN) 5 MG tablet Past Medical History: Past Medical History: Diagnosis Date Alcohol abuse Anemia Anxiety Arthritis Asthma Bipolar 1 disorder CHF (congestive heart failure) Chronic back pain Depression Diabetes mellitus Gastroesophageal reflux disease History of cocaine 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/2010 Hypertension Obesity Paroxysmal atrial fibrillation 2018 Peptic ulcer disease PTSD (post-traumatic stress disorder) Rosacea Stroke 2016 Past Surgical History: Past Surgical History: Procedure Laterality Date Abdominal hernia repair with mesh ANKLE SURGERY ARTHROPLASTY HIP Left ARTHROPLASTY KNEE Right 07/09/2021 Procedure: RIGHT TOTAL KNEE ARTHROPLASTY; Surgeon: Jamin Siegel MD; Location: [facility] Main OR ARTHROPLASTY SHOULDER Left BAND HEMORRHOIDECTOMY BLADDER SUSPENSION CHOLECYSTECTOMY ESOPHAGOSCOPY, GASTROSCOPY, DUODENOSCOPY (EGD), COMBINED N/A 05/02/2015 Procedure: COMBINED ESOPHAGOSCOPY, GASTROSCOPY, DUODENOSCOPY (EGD), BIOPSY SINGLE OR MULTIPLE; Surgeon: Dionte Rodriges MD; Location: GI GASTRIC BYPASS 2002 HYSTERECTOMY LUMBAR FUSION PANNICULECTOMY N/A 06/04/2020 Procedure: PANNICULECTOMY; Surgeon: Celia Kumar MD; Location: OR SINUS SURGERY SPINAL CORD STIMULATOR IMPLANT ZZC TOTAL HIP ARTHROPLASTY Right 11/06/2020 Procedure: RIGHT POSTERIOR APPROACH TOTAL HIP ARTHROPLASTY; Surgeon: Jamin Siegel MD; Location: [facility]; Service: Orthopedics Physical Exam Patient Vitals for the past 24 hrs: BP Temp Temp src Pulse Resp SpO2 05/22/23 0245 -- -- -- -- -- 99 % 05/22/23 0230 -- -- -- -- -- 96 % 05/22/23 0215 -- -- -- 88 23 92 % 05/22/23 0200 177/117 -- -- 98 22 98 % 05/22/23 0153 -- -- -- -- -- 100 % 05/22/23 0152 -- -- -- -- -- 95 % 05/22/23 0151 -- -- -- -- -- 95 % 05/22/23 0150 -- -- -- -- -- 94 % 05/22/23 0149 -- -- -- -- -- 93 % 05/22/23 0148 -- -- -- -- -- 93 % 05/22/23 0147 -- -- -- -- -- 96 % 05/22/23 0146 -- -- -- -- -- 91 % 05/22/23 0145 183/126 -- -- 91 20 99 % 05/22/23 0130 171/115 -- -- 95 21 99 % 05/22/23 0115 186/115 -- -- 93 20 100 % 05/22/23 0100 176/117 -- -- 98 20 100 % 05/22/23 0045 160/118 -- -- 106 -- 100 % 05/22/23 0026 140/103 98.1 ??F (36.7 ??C) Oral 104 22 97 % Physical Exam Nursing note and vitals reviewed. Constitutional: Cooperative. Resting comfortably HENT: Mouth/Throat: Mucous membranes are normal. Cardiovascular: Normal rate, irregularly irregular rhythm and normal heart sounds. No murmur. Pulmonary/Chest: Effort normal. No respiratory distress. No rales. Fine expiratory wheeze. Abdominal: Soft. Normal appearance. There is no tenderness. Musculoskeletal: No lower extremity edema Neurological: Alert. Oriented x 3 Skin: Skin is warm and dry. Psychiatric: Normal mood and affect. Emergency Department Course ECG ECG taken at 0053, ECG read at [address] and T wave abnormality Prolonged QT Rate 94 bpm. UT interval * ms. QRS duration 82 ms. QT/QTc 406/507 ms. P-R-T axes * -10 17. Imaging: XR Chest Port 1 View Final Result IMPRESSION: Minimal change. Modest cardiomegaly with central vascular congestion. Mild interstitialprominence similar to prior study. No definite focal pneumonia. Left shoulder arthroplasty. Report per radiology Laboratory: Labs Ordered and Resulted from Time of ED Arrival to Time of ED Departure BASIC METABOLIC PANEL - Abnormal Result Value Sodium 142 Potassium 3.7 Chloride 106 Carbon Dioxide (CO2) 23 Anion Gap 13 Urea Nitrogen 10.3 Creatinine 0.50 (*) GFR Estimate >90 Calcium 8.2 (*) Glucose 137 (*) INFLUENZA A/B, RSV, & SARS-COV2 PCR - Abnormal Influenza A PCR Negative Influenza B PCR Negative RSV PCR Negative SARS CoV2 PCR Positive (*) CBC WITH PLATELETS AND DIFFERENTIAL - Abnormal WBC Count 5.4 RBC Count 3.59 (*) Hemoglobin 8.0 (*) Hematocrit 27.8 (*) MCV 77 (*) MCH 22.3 (*) MCHC 28.8 (*) RDW 18.2 (*) Platelet Count 142 (*) % Neutrophils 82 % Lymphocytes 10 % Monocytes 7 % Eosinophils 0 % Basophils 0 % Immature Granulocytes 1 NRBCs per 100 WBC 0 Absolute Neutrophils 4.4 Absolute Lymphocytes 0.6 (*) Absolute Monocytes 0.4 Absolute Eosinophils 0.0 Absolute Basophils 0.0 Absolute Immature Granulocytes 0.0 Absolute NRBCs 0.0 INR - Abnormal INR 2.74 (*) Interventions: Medications HYDROmorphone (DILAUDID) tablet 2 mg (2 mg Oral $Given 05/22/23 0115) Assessments: 0109 I obtained history and examined the patient as noted above. 0227 Passed trial of ambulation. O2 97% walking on room air. 0242 I rechecked the patient and explained findings. Patient discharged home with instructions regarding supportive care, medications, and reasons to return. The importance of close follow-up was reviewed. 0248 Medication review for Paxlovid. Independent Interpretation (X-rays, CTs, rhythm strip): I independently reviewed the chest x-ray. No large pleural effusion or lobar infiltrate. Consultations/Discussion of Management or Tests: None Social Determinants of Health affecting care: None Disposition: The patient was discharged to home. Impression & Plan Medical Decision Making: Brandee Brown is a 63 year old female who presents for evaluation of shortness of breath and congestion. Given that the patient is otherwise hemodynamically stable without significant hypoxia, I do not believe that the patient requires admission here today. There is report of oxygen saturation in the upper 80s at home but here her oxygen saturations been in the high 90s even with ambulation. They are at risk for pneumonia but no signs of this are detected on today's visit. Return to the ED for high fevers > 103 for more than 48 hours more, increasing productive cough, shortness of breath, or confusion. After discussion we will start her on Paxlovid. She was advised to stop taking her Coumadin, atorvastatin, Advair and hydroxyzine while on this medication after reviewing possible drug interactions. Her kidney function is normal. I discussed my findings and plan with the patient and they are amenable at this time. All questions were answered and patient will be discharged home in stable condition. Diagnosis: ICD-10-CM 1. COVID-19 virus infection U07.1 2. Chronic anemia D64.9 3. Warfarin anticoagulation Z79.01 4. Other fatigue R53.83 Discharge Medications: New Prescriptions NIRMATRELVIR AND RITONAVIR (PAXLOVID) 300 MG/100 MG THERAPY PACK Take 3 tablets by mouth 2 times daily for 5 days Scribe Disclosure: Carol Dugan Hailie, am serving as a scribe at 1:13 AM on 05/22/2023 to document services personally performed by Champ Madrid MD based on my observations and the provider's statements to me. 05/22/2023 Champ Madrid MD Amdahl, John, MD 05/22/23 0334 NING CONSULTANT documented in this encounter Plan of Treatment Upcoming Encounters Date Type Department Care Team (Late st Contact Info) Description 06/16/2023 3:30 PM TRAINING CONSULTANT Office Visit [facility] [address] [facility] [address] [place] [phone] Greta Thao APRN MANAGER [facility] [address] [place] [phone] documented as of this encounter Procedures Procedure Name Priority Date/Time Associated Diagnosis Comments XR CHEST PORT 1 VIEW STAT 05/22/2023 1:26 AM TRAINING CONSULTANT EKG 12-LEAD, TRACING ONLY STAT 05/22/2023 12:53 AM TRAINING CONSULTANT EXTRA GREEN TOP (LITHIUM HEPARIN) ON ICE STAT 05/22/2023 12:39 AM TRAINING CONSULTANT EXTRA TUBE STAT 05/22/2023 12:39 AM TRAINING CONSULTANT EXTRA RED TOP TUBE STAT 05/22/2023 12 :39 AM TRAINING CONSULTANT EXTRA BLUE TOP TUBE STAT 05/22/2023 1 2:39 AM TRAINING CONSULTANT CBC WITH PLATELETS AND DIFFERENTIAL STAT 05/22/2023 12:39 AM TRAINING CONSULTANT INFLUENZA A/B, RSV, & SARS-COV2 PCR STAT 05/22/2023 12:39 AM TRAINING CONSULTANT CBC WITH PLATELETS & DIFFERENTIAL STAT 05/22/2023 12:39 AM TRAINING CONSULTANT INR STAT 05/22/2023 12:39 AM TRAINING CONSULTANT BASIC METABOLIC PANEL STAT 05/22/2023 12:39 AM TRAINING CONSULTANT documented in this encounter Results * XR Chest Port 1 View (05/22/2023 1:26 AM TRAINING CONSULTANT) Anatomical Region Laterality Modality Chest Digital Radiogra phy 05/22/2023 1:26 AM TRAINING CONSULTANT Impressions 05/22/2023 1:33 AM TRAINING CONSULTANT IMPRESSION: Minimal change. Modest cardiomegaly with central vascular congestion. Mild interstitial prominence similar to prior study. No definite focal pneumonia. Left shoulder arthroplasty. Narrative 05/22/2023 1:33 AM TRAINING CONSULTANT EXAM: XR CHEST PORT 1 VIEW LOCATION: [facility] DATE: 05/22/2023 INDICATION: covid +, SOB COMPARISON: 04/08/2021 Procedure Note Farshad Vale MD - 05/22/2023 EXAM: XR CHEST PORT 1 VIEW LOCATION: [facility] DATE: 05/22/2023 INDICATION: covid +, SOB COMPARISON: 04/08/2021 IMPRESSION: Minimal change. Modest cardiomegaly with central vascularcongestion. Mild interstitial prominence similar to prior study. Nodefinite focal pneumonia. Left shoulder arthroplasty. Champ Madrid MD IMG DIAGNOSTIC IMAGI NG ORDERABLES * EKG 12-lead, tracing only (05/22/2023 12:53 AM TRAINING CONSULTANT) Systolic Blood Pressure mmHg RADIOLOGY RESULTS Diastolic Blood Pressure mmHg RADIOLOGY RESULTS Ventricular Rate 94 BPM RAD IOLOGY RESULTS Atrial Rate 375 BPM RADIOLOG Y RESULTS UT Interval ms RADIOLOG Y RESULTS QRS Duration 82 ms RADIOLO GY RESULTS QT 406 ms RADIOLOGY RESULTS QTc 507 ms RADIOLOGY RESULTS P [place] degrees RADIOLOGY RESULTS R AXIS -10 degrees RADIOLOGY RESULTS T [place] 17 degrees RADIOLOGY RESULTS Interpretation ECG Atrial fibrillation Nonspecific ST and T wave abnormality Prolonged QT Abnormal ECG When compared with ECG of 13-JUL-2021 07:15, Nonspecific T wave abnormality now evident in Lateral leads Confirmed by - EMERGENCY ROOM, PHYSICIAN ([id number]), newspaper or periodical editor ISMAEL BARBOZA ([id number]) on 05/22/2023 7:16:31 AM RADIOLOGY RESULTS 05/22/2023 12:5 3 AM TRAINING CONSULTANT 05/22/2023 7:16 AM TRAINING CONSULTANT Champ Madrid MD ECG ORDERABLES Performing Organization Address [facility] Co de Phone Number RADIOLOGY RESULTS * (ABNORMAL) INR (05/22/2023 12:39 AM TRAINING CONSULTANT) INR 2.74(H) 0.85 - 1.15 05/22/2023 1:40 AM TRAINING CONSULTANT [facility] Blood BLOOD SPECIMEN / Unknown Venipuncture / Unknown 05/22/2023 12:39 AM TRAINING CONSULTANT 05/22/2023 12:47 AM TRAINING CONSULTANT Champ Madrid MD LAB - BLOOD ORDERABL ES Performing Organization Address [facility] de Phone Number [facility] [address] [address] Lab (1st floor, no room number) [place] [phone], [facility] [phone] * Extra Green Top ([place] Heparin) ON ICE (05/22/2023 12:39 AM TRAINING CONSULTANT) Hold Specimen [facility] 05/22/2023 2:02 AM TRAINING CONSULTANT [facility] Blood BLOOD SPECIMEN / Unknown Venipuncture / Unknown 05/22/2023 12:39 AM TRAINING CONSULTANT 05/22/2023 12:47 AM TRAINING CONSULTANT Champ Madrid MD LAB - BLOOD ORDERABL ES Performing Organization Address [facility] de Phone Number [facility] [address] Lab (1st floor, no room number) [place] [phone], [facility] [phone] * Extra Red Top Tube (05/22/2023 12:39 AM TRAINING CONSULTANT) Hold Specimen JI 05/22/2023 2:02 AM TRAINING CONSULTANT [facility] Blood BLOOD SPECIMEN / Unknown Venipuncture / Unknown 05/22/2023 12:39 AM TRAINING CONSULTANT 05/22/2023 12:47 AM TRAINING CONSULTANT Champ Madrid MD LAB - BLOOD ORDERABL ES LABORATORY [facility] [address] Lab (1st floor, no room number) [place] [address], [facility] [phone] * Extra Blue Top Tube (05/22/2023 12:39 AM TRAINING CONSULTANT) Hold Specimen JI 05/22/2023 2:02 AM TRAINING CONSULTANT LABORATORY Blood BLOOD SPECIMEN / Unknown Venipuncture / Unknown 05/22/2023 12:39 AM TRAINING CONSULTANT 05/22/2023 12:47 AM TRAINING CONSULTANT Champ Madrid MD LAB - BLOOD ORDERABL ES LABORATORY [facility] [address] Lab (1st floor, no room number) [place] [address], [facility] [phone] * (ABNORMAL) CBC with platelets and differential (05/22/2023 12:39 AM TRAINING CONSULTANT) WBC Count 5.4 4.0 - 11.0 10e3/uL 05/22/2023 12:54 AM TRAINING CONSULTANT [facility] RBC Count 3.59(L) 3.80 - 5.20 10e6/uL 05/22/2023 12:54 AM TRAINING CONSULTANT [facility] Hemoglobin 8.0(L) 11.7 - 15.7 g/dL 05/22/2023 12:54 AM TRAINING CONSULTANT [facility] Hematocrit 27.8(L) 35.0 - 47.0 % 05/22/2023 12:54 AM TRAINING CONSULTANT [facility] MCV 77(L) 78 - 100 fL 05/22/2023 12:54 AM TRAINING CONSULTANT [facility] MCH 22.3(L) 26.5 - 33.0 pg 05/22/2023 12:54 AM TRAINING CONSULTANT [facility] MCHC 28.8(L) 31.5 - 36.5 g/dL 05/22/2023 12:54 AM TRAINING CONSULTANT [facility] RDW 18.2(H) 10.0 - 15.0 % 05/22/2023 12:54 AM TRAINING CONSULTANT [facility] Platelet Count 142(L) 150 - 450 10e3/uL 05/22/2023 12:54 AM TRAINING CONSULTANT [facility] % Neutrophils 82 % 05/22/2023 12:54 AM TRAINING CONSULTANT [facility] % Lymphocytes 10 % 05/22/2023 12:54 AM TRAINING CONSULTANT [facility] % Monocytes 7 % 05/22/2023 12:54 AM TRAINING CONSULTANT [facility] % Eosinophils 0 % 05/22/2023 12:54 AM TRAINING CONSULTANT [facility] % Basophils 0 % 05/22/2023 12:54 AM TRAINING CONSULTANT [facility] % Immature Granulocytes 1 % 05/22/2023 12:54 AM TRAINING CONSULTANT [facility] NRBCs per 100 WBC 0 <1 /100 023 12:54 AM TRAINING CONSULTANT LABORATORY Absolute Neutrophils 4.4 1.6 - 8.3 10e3/uL 05/22/2023 12:54 AM TRAINING CONSULTANT LABORATORY Absolute Lymphocytes 0.6(L) 0.8 - 5.3 10e3/uL 05/22/2023 12:54 AM TRAINING CONSULTANT LABORATORY Absolute Monocytes 0.4 0.0 - 1.3 10e3/uL 05/22/2023 12:54 AM TRAINING CONSULTANT LABORATORY Absolute Eosinophils 0.0 0.0 - 0.7 10e3/uL 05/22/2023 12:54 AM TRAINING CONSULTANT LABORATORY Absolute Basophils 0.0 0.0 - 0.2 10e3/uL 05/22/2023 12:54 AM TRAINING CONSULTANT LABORATORY Absolute Immature Granulocytes 0.0 <=0.4 10e3/uL 05/22/2023 12:54 AM TRAINING CONSULTANT LABORATORY Absolute NRBCs 0.0 10e3/uL 05/22/2023 12:54 AM TRAINING CONSULTANT LABORATORY Blood BLOOD SPECIMEN / Unknown Venipuncture / Unknown 05/22/2023 12:39 AM TRAINING CONSULTANT 05/22/2023 12:47 AM TRAINING CONSULTANT Champ Madrid MD LAB - BLOOD ORDERABL ES LABORATORY [facility] [address] Lab (1st floor, no room number) [place] [address], [facility] [phone] * (ABNORMAL) Symptomatic Influenza A/B, RSV, & SARS-CoV2 PCR (COVID-19) Nasopharyngeal (05/22/2023 12:39 AM TRAINING CONSULTANT) Influenza A PCR Negative Negative 05/22/2023 1:25 AM TRAINING CONSULTANT LABORATORY Influenza B PCR Negative Negative 05/22/2023 1:25 AM TRAINING CONSULTANT LABORATORY RSV PCR Negative Negative 05/22/2023 1:25 AM TRAINING CONSULTANT LABORATORY SARS CoV2 PCR Positive(A) Negative 05/22/2023 1:25 AM TRAINING CONSULTANT LABORATORY Comment:POSITIVE: SARS-CoV-2 (COVID-19) RNA detected, presumed positive. Swab NASOPHARYNGEAL STRUCTURE / Unknown Non-blood Collection / Unknown 05/22/2023 12:39 AM TRAINING CONSULTANT 05/22/2023 12:47 AM TRAINING CONSULTANT Narrative [facility] - 05/22/2023 1:25 AM TRAINING CONSULTANT Testing was performed using the Xpert Xpress CoV2/Flu/RSV Assay on the Arteriocyte Medical SystemsXpert Instrument. This test should be ordered for [...] management. This test was validated by the [facility]. These laboratories are certified under the Clinical Laboratory Improvement Amendments of 1988 (CLIA-88) as qualified to perform high complexity laboratory testing. Champ Madrid MD LAB - MICRO GENERAL ORDERABLES LABORATORY [facility] [address] [facility] Lab (1st floor, no room number) [place] [address], [facility] [phone] * (ABNORMAL) Basic metabolic panel (BMP) (05/22/2023 12:39 AM TRAINING CONSULTANT) Pathologist [facility] Sodium 142 135 - 145 mmol/L 05/22/2023 1:17 AM TRAINING CONSULTANT [facility] Comment:Reference intervals for this test were updated on 02/24/2023 to more accurately reflect our healthy population. There may be differences in the flagging of prior results with similar values performed with this method. Interpretation of those prior results can be made in the context of the updated reference intervals. Potassium 3.7 3.4 - 5.3 mmol/L 05/22/2023 1:17 AM [facility] Chloride 106 98 - 107 mmol/L 05/22/2023 1:17 AM [facility] Carbon Dioxide (CO2) 23 22 - 29 mmol/L 05/22/2023 1:17 AM [facility] Anion Gap 13 7 - 15 mmol/L 05/22/2023 1:17 AM [facility] Urea Nitrogen 10.3 8.0 - 23.0 mg/dL 05/22/2023 1:17 AM [facility] Creatinine 0.50(L) 0.51 - 0.95 mg/dL 05/22/2023 1:17 AM [facility] GFR Estimate >90 >60 mL/min/1. 73m2 05/22/2023 1:17 AM [facility] Calcium 8.2(L) 8.8 - 10.2 mg/dL 05/22/2023 1:17 AM [facility] Glucose 137(H) 70 - 99 mg/dL 05/22/2023 1:17 AM [facility] Blood BLOOD SPECIMEN / Unknown Venipuncture / Unknown 05/22/2023 12:39 AM TRAINING CONSULTANT 05/22/2023 12:47 AM [facility] Champ Madrid MD LAB - BLOOD ORDERABL ES LABORATORY [facility] [address] [facility] Lab (1st floor, no room number) [place] [address], [facility] [phone] documented in this encounter Visit Diagnoses Diagnosis COVID-19 virus infection Chronic anemia Anemia, unspecified Warfarin anticoagulation Encounter for long-term (current) use of anticoagulants Other fatigue Chronic atrial fibrillation (H) Atrial fibrillation documented in this encounter Administered Medications Inactive Administered Medications - up to 3 most recent administrations Medication Order MAR Action Action Date Dose Rate Site acetaminophen (TYLENOL) tablet 1,000 mg 1,000 mg, Oral, ONCE, On Thu05/22/23 at 0405, For 1 dose, Maximum acetaminophen dose from all sources = 75 mg/kg/day not to exceed 4 gram $Given 05/22/2023 4:01 AM TRAINING CONSULTANT 1,000 mg HYDROmorphone (DILAUDID) tablet 2 mg 2 mg, Oral, ONCE, On Thu05/22/23 at 0115, For 1 dose $Given 05/22/2023 1:15 AM TRAINING CONSULTANT 2 mg documented in this encounter Active and Recently Administered Medications Times are shown in TRAINING CONSULTANT. Scheduled Medication Order 05/20/2023 05/21/2023 05/22/2023 acetaminophen (TYLENOL) tablet 1,000 mg (COMPLETED) 1,000 mg, Oral, ONCE, On Thu05/22/23 at 0405, For 1 dose, Maximum acetaminophen dose from all sources = 75 mg/kg/day not to exceed 4 gram 0401 ($Given - Provi cami: Yulissa Carr RN) HYDROmorphone (DILAUDID) tablet 2 mg (COMPLETED) 2 mg, Oral, ONCE, On Thu05/22/23 at 0115, For 1 dose 0115 ($Given - Provi cami: Yulissa Carr RN) documented in this encounter Additional Health Concerns Infection Onset Date Last Indicated Resolved Time Rule Out COVID-19 05/22/2023 05/22/2023 05/22/2023 1:25 AM TRAINING CONSULTANT COVID-19 05/22/2023 05/22/2023 06/12/2023 11:3 9 PM TRAINING CONSULTANT documented as of this encounter Care Teams City Mail Carrier Relationship Specialty Start Date End Date Adams Barrera [address] [facility] [address] [place], [place] [phone] PCP - General 03/30/20 Celia Kumar MD [address] [facility] [address] [place] [address] Plastic Surgery 04/20/15 Charan Corbin MD [address] [facility] [address] [place] [address] INTERNAL MEDICINE - ENDOCRINOLOGY, DIABETES & METABOLISM 06/19/15 [place] [address] [address] [address] Assigned PCP 03/21/21 documented as of this encounter
--- OUTSIDE RECORDS SUMMARY | 2023-06-16 10:45 | XMS_ITS | Encounter Summary ---
Author Name Unknown Organization [place] Address [facility] [place] [address] Care Team Providers Care Panelbeater Name Role Phone Celia Kumar MD Unavailable [phone] Charan Corbin MD Unavailable [phone] Celia Kumar MD Unavailable [phone] Adams Barrera Primary Care Provider [phone] Carolina De Dios MULTIPLE CUT OFF SAW OPERATOR TREE FELLER Unavailable +- [phone] Deborah Walsh MD Unavailable Greta Thao MULTIPLE CUT OFF SAW OPERATOR TREE FELLER Unavailable + [phone] Encounter Details Date Type Department Care Team (Late st Contact Info) Description 06/05/2021 Documentation Only INTERFACED REPORT Unknown, Provider Social History Tobacco Use Types Packs/Day Years Used Date Smoking Tobacco: Some Days Cigarettes 0.1 Hookah Smokeless Tobacco: Never Comments:smokes maybe 1 cig/ [...] st Contact Info) Description 06/16/2023 3:30 PM SENIOR INFORMATION SECURITY CONSULTANT Office Visit [facility] [address] [facility] [address] [place] [address] Greta Thao APRN [facility] [place] [address] [place] [phone] documented as of this encounter Visit Diagnoses Not on filedocumented in this encounter Additional Health Concerns Infection Onset Date Last Indicated Resolved Time Rule Out COVID-05/22/2023 05/22/2023 05/22/2023 1:25 AM SENIOR INFORMATION SECURITY CONSULTANT COVID-19 05/22/2023 05/22/2023 06/12/2023 11:3 9 PM SENIOR INFORMATION SECURITY CONSULTANT documented as of this encounter Care Teams Panelbeater Relationship Specialty Start Date End Date Adams Barrera [address] [facility] 195 [place] [address] PCP - General 03/30/20 Celia Kumar MD [address] [facility] 195 [place] [address] Plastic Surgery 04/20/15 Charan Corbin MD [address] [facility] 101 [place] [address] INTERNAL MEDICINE - ENDOCRINOLOGY, DIABETES & METABOLISM 06/19/15 Celia Kumar MD [address] [facility] 195 [place] [address] Assigned Surgical Provider 03/23/20 12/20/21 Carolina De Dios APRN [facility] [address] [facility] [place] [place] [address] Assigned Heart and Vascular Provider 12/14/20 09/12/22 [place] [address] [place] [address] Assigned PCP 03/21/21 Greta Thao APRN [facility] [place] [address] [place] [address] Nurse Practitioner Cardiology 06/09/23 documented as of this encounter
--- OUTSIDE RECORDS SUMMARY | 2023-06-16 10:45 | XMS_ITS | Encounter Summary ---
Author Name Unknown Organization [place] Address [facility] [place] [address] Care Team Providers Care Emt P Name Role Phone Celia Kumar MD Unavailable [phone] Charan Corbin MD Unavailable [phone] Celia Kumar MD Unavailable [phone] Adams Barrera Primary Care Provider [phone] Carolina De Dios PIPE SMOKING MACHINE OPERATOR PRISONER CLASSIFICATION INTERVIEWER Unavailable + [phone] Deborah Walsh MD Unavailable Greta Thao PIPE SMOKING MACHINE OPERATOR PRISONER CLASSIFICATION INTERVIEWER Unavailable + [phone] Encounter Details Date Type Department Care Team (Late st Contact Info) Description 11/06/2020 Records - [facility] HE CONVERSION Scan, Non-Provider [...] st Contact Info) Description 06/16/2023 3:30 PM KAYAK MAKER Office Visit [facility] [address] [facility] [address] [place] [phone] Greta Thao APRN [facility] [place] [address] [place] [address] documented as of this encounter Visit Diagnoses Not on filedocumented in this encounter Additional Health Concerns Infection Onset Date Last Indicated Resolved Time Rule Out COVID-19 05/22/2023 05/22/2023 05/22/2023 1:25 AM KAYAK MAKER COVID-19 05/22/2023 05/22/2023 06/12/2023 11:3 9 PM KAYAK MAKER documented as of this encounter Care Teams Emt P Relationship Specialty Start Date End Date Adams Barrera [address] [facility] 195 [place], [place] [address] PCP - General 03/30/20 Celia Kumar MD [address] [facility] 195 [place], [place] [address] Plastic Surgery 04/20/15 Charan Corbin MD [address] [facility] 101 [place], [place] [phone] INTERNAL MEDICINE - ENDOCRINOLOGY, DIABETES & METABOLISM 06/19/15 Celia Kumar MD [address] [facility] 195 [place], [place] [address] Assigned Surgical Provider 03/23/20 12/20/21 Carolina De Dios APRN PRISONER CLASSIFICATION INTERVIEWER [address] [facility] [address] [place], [place] [address] Assigned Heart and Vascular Provider 12/14/20 09/12/22 [place] [address] [place] [address] Assigned PCP 03/21/21 Greta Thao APRN PRISONER CLASSIFICATION INTERVIEWER [facility] [place] [address] [place] [phone] Nurse Practitioner Cardiology 06/09/23 documented as of this encounter
--- OUTSIDE RECORDS SUMMARY | 2023-06-16 10:45 | XMS_ITS | Encounter Summary ---
Author Name Unknown Organization [place] Address [facility] [place] [address] Care Team Providers Care Paper Guillotine Operator Name Role Phone Celia Kumar MD Unavailable [phone] Charan Corbin MD Unavailable [phone] Celia Kumar MD Unavailable [phone] Adams Barrera Primary Care Provider [phone] Carolina De Dios PROCESS COACH SEXUAL ASSAULT RESPONSE COORDINATOR Unavailable + [phone] Deborah Walsh MD Unavailable Greta Thao PROCESS COACH SEXUAL ASSAULT RESPONSE COORDINATOR Unavailable + [phone] Encounter Details Date Type Department Care Team (Late st Contact Info) Description 10/17/2020 Records - [facility] HE CONVERSION Priscilla Mckay MD [address] [address] Social History Tobacco Use Types Packs/Day Years [...] have Coronavirus / COVID-19? No / Unsure 09/24/2020 2:22 PM CDT documented as of this encounter Plan of Treatment Upcoming Encounters Date Type Department Care Team (Late st Contact Info) Description 06/16/2023 3:30 PM CLERK OPERATOR Office Visit [facility] [address] [facility] [address] [place] [phone] Greta Thao APRN [facility] [place] [address] [place] [phone] documented as of this encounter Visit Diagnoses Not on filedocumented in this encounter Additional Health Concerns Infection Onset Date Last Indicated Resolved Time Rule Out COVID-19 05/22/2023 05/22/2023 05/22/2023 1:25 AM CLERK OPERATOR COVID-19 05/22/2023 05/22/2023 06/12/2023 11:3 9 PM CLERK OPERATOR documented as of this encounter Care Teams Paper Guillotine Operator Relationship Specialty Start Date End Date Adams Barrera [address] [facility] 195 [place], [place] [phone] PCP - General 03/30/20 Celia Kumar MD [address] [facility] 195 [place], [place] [address] Plastic Surgery 04/20/15 Charan Corbin MD [address] [facility] 101 [place], [place] [address] INTERNAL MEDICINE - ENDOCRINOLOGY, DIABETES & METABOLISM 06/19/15 Celia Kumar MD [address] [facility] 195 [place] [address] Assigned Surgical Provider 03/23/20 12/20/21 Carolina De Dios APRN SEXUAL ASSAULT RESPONSE COORDINATOR [address] [facility] [address] [place], [place] [address] Assigned Heart and Vascular Provider 12/14/20 09/12/22 [place] [address] [place] [address] Assigned PCP 03/21/21 Greta Thao APRN SEXUAL ASSAULT RESPONSE COORDINATOR [facility] [address] [place] [phone] Nurse Practitioner Cardiology 06/09/23 documented as of this encounter
--- OUTSIDE RECORDS SUMMARY | 2023-06-16 10:46 | XMS_ITS | Encounter Summary ---
Author Name Unknown Organization [place] Address [address] [place] [address] Care Team Providers Care Supervisor Harvesting Name Role Phone Celia Kumar MD Unavailable [phone] Charan Corbin MD Unavailable [phone] Celia Kumar MD Unavailable [phone] Adams Barrera Primary Care Provider [phone] Carolina De Dios EXECUTIVE DIRECTOR CONTRACT SHOP INDEPENDENT CONSULTANT Unavailable + [phone] Deborah Walsh MD Unavailable Greta Thao EXECUTIVE DIRECTOR CONTRACT SHOP INDEPENDENT CONSULTANT Unavailable + [phone] Encounter Details Date Type Department Care Team (Late st Contact Info) Description 06/25/2020 Records - [facility] OR [address] [place] [address] Zoraida Ellis, RN Social History Tobacco Use Types Packs/Day Years [...] have Coronavirus / COVID-19? No / Unsure 06/28/2020 1:07 PM [place] TRUCK OPERATOR documented as of this encounter Progress Notes * Zoraida Ellis, RN - 06/25/2020 12:15 PM CST 05/23/20 0001 Discharge Planning Patient expects to be discharged to: Assisted Living Facility Living Arrangements Alone Type of Residence Assisted living Do you have stairs? No Support Systems Other (Comment) (Help from assisted living staff) Pt/Rep Education / Interventions Discuss d/c H TRUCK OPERATOR documented in this encounter Plan of Treatment Upcoming Encounters Date Type Department Care Team (Late st Contact Info) Description 06/16/2023 3:30 PM WINCH TRUCK OPERATOR Office Visit [facility] [address] [facility] [address] [place] [phone] Greta Thao APRN [facility] [place] [address] [place] [phone] documented as of this encounter Visit Diagnoses Not on filedocumented in this encounter Additional Health Concerns Infection Onset Date Last Indicated Resolved Time Rule Out COVID-19 05/22/2023 05/22/2023 05/22/2023 1:25 AM WINCH TRUCK OPERATOR COVID-19 05/22/2023 05/22/2023 06/12/2023 11:3 9 PM WINCH TRUCK OPERATOR documented as of this encounter Care Teams Supervisor Harvesting Relationship Specialty Start Date End Date Adams Barrera [address] [place] [address] 195 [place] [address] PCP - General 03/30/20 Celia Kumar MD 420 [facility] 195 [place] [address] Plastic Surgery 04/20/15 Charan Corbin MD [address] [facility] 101 [place] [address] INTERNAL MEDICINE - ENDOCRINOLOGY, DIABETES & METABOLISM 06/19/15 Celia Kumar MD [address] [facility] 195 [place] [address] Assigned Surgical Provider 03/23/20 12/20/21 Carolina De Dios APRN INDEPENDENT CONSULTANT [address] [facility] [address] [place] [address] Assigned Heart and Vascular Provider 12/14/20 09/12/22 [place] [address] [place] [address] Assigned PCP 03/21/21 Greta Thao APRN INDEPENDENT CONSULTANT [facility] [place] [address] [place] [phone] Nurse Practitioner Cardiology 06/09/23 documented as of this encounter
--- OUTSIDE RECORDS SUMMARY | 2023-06-16 10:46 | XMS_ITS | Encounter Summary ---
Author Name Unknown Organization [place] Address [facility] [place] [address] Care Team Providers Care Drum Handler Name Role Phone Celia Kumar MD Unavailable [phone] Charan Corbin MD Unavailable [phone] Celia Kumar MD Unavailable [phone] Adams Barrera Primary Care Provider [phone] Carolina De Dios SALES LEDGER ADMINISTRATOR CLIENT SPECIALIST Unavailable + [phone] Deborah Walsh MD Unavailable Greta Thao SALES LEDGER ADMINISTRATOR CLIENT SPECIALIST Unavailable + [phone] Encounter Details Date Type Department Care Team (Late st Contact Info) Description 07/02/2020 Records - [facility] HE CONVERSION Priscilla Mckay MD [address] [address] Social History Tobacco Use Types [...] or suspected to have Coronavirus / COVID-19? Unable to assess 07/05/2020 1:28 PM KNITTING DEMONSTRATOR documented as of this encounter Plan of Treatment Upcoming Encounters Date Type Department Care Team (Late st Contact Info) Description 06/16/2023 3:30 PM KNITTING DEMONSTRATOR Office Visit [facility] [address] [facility] [address] [place] [phone] Greta Thao APRN [facility] [place] [address] [place] [phone] documented as of this encounter Visit Diagnoses Not on filedocumented in this encounter Additional Health Concerns Infection Onset Date Last Indicated Resolved Time Rule Out COVID-19 05/22/2023 05/22/2023 05/22/2023 1:25 AM KNITTING DEMONSTRATOR COVID-19 05/22/2023 05/22/2023 06/12/2023 11:3 9 PM KNITTING DEMONSTRATOR documented as of this encounter Care Teams Drum Handler Relationship Specialty Start Date End Date Adams Barrera [address] [facility] 195 [place], [place] [address] PCP - General 03/30/20 Celia Kumar MD [address] [facility] 195 [place], [place] [address] Plastic Surgery 04/20/15 Charan Corbin MD [address] [facility] 101 [place], [place] [address] INTERNAL MEDICINE - ENDOCRINOLOGY, DIABETES & METABOLISM 06/19/15 Celia Kumar MD 420 [facility] 195 [place] [address] Assigned Surgical Provider 03/23/20 12/20/21 Carolina De Dios APRN CLIENT SPECIALIST [address] [facility] [address] [place], [place] [address] Assigned Heart and Vascular Provider 12/14/20 09/12/22 [place] [address] [place] [address] Assigned PCP 03/21/21 Greta Thao APRN CLIENT SPECIALIST [facility] [place] [address] [place] [phone] Nurse Practitioner Cardiology 06/09/23 documented as of this encounter
== END 2023-06-16 10:37 | disposition home or self-care (01) ==
PROVIDERS: PCP Internal Medicine; Visit Provider Internal Medicine
DX: E11.9 Type 2 diabetes mellitus without complications (principal); I48.91 Unspecified atrial fibrillation; Z79.01 Long term (current) use of anticoagulants
CPT/HCPCS: 80053; 85610

== ENCOUNTER 2023-08-30 09:18 | Outpatient (CLI) | payer MEDICAID, SELFPAY | END 2023-08-30 09:19 | disposition home or self-care (01) | LOC: AMB 09-05 06:11 | PROVIDERS: Visit Provider Family Medicine | DX: R41.82 Altered mental status, unspecified (principal) | CPT/HCPCS: A0998 ==

== ENCOUNTER 2023-10-23 21:06 | Outpatient (CLI) | payer OTHER, SELFPAY ==
--- OUTSIDE RECORDS SUMMARY | 2023-10-27 17:09 | XMS_ITS | Encounter Summary ---
Author Organization [facility] Address [address] [place] [id number] Care Team Providers Care Cell Builder Name Role Phone Elsewhere, Pcp Primary Care Provider Unavailabl e Reason for Visit * Reason Onset Date Comments Anticoagulation 08/27/2023 Appointment ques tion Encounter Details Date Type Department Care Team (Latest Contact Info) Description 08/27/2023 Clinical Communication Department of Anticoagulation in [place], [place] [address] [place] [phone] Gasper Alvarez RStephanyN. [address] [place] [phone] Anticoagulation (Appointment question) Social History Tobacco Use Types Packs/Day Years Used Date Smoking Tobacco: Former Cigarettes Smokeless Tobacco: Never Comments:Quit in 2022. Alcohol Use Standard Drinks/Week Comments No 0 (1 standard drink = 0.6 oz pur e alcohol) PHQ-2 Answer Date Recorded PHQ-2 Score 1 07/30/2023 Depression Answer Date Recor ded PHQ-9 Total Score (max 27) 7 Nutrition Answer Date Recorded Nutrition: EVOO Fat Source 13 12/26 Nutrition: Servings of Fruits/Vegetables per Day Not on file 12/27/2019 Dental Answer Date Recorded Dental: Regular Dentist Unknown 08/03/19 21 Sex and Gender Information Value Date Recorded Sex Assigned at Not on file Gender Identity Female 08/13/2017 10:05 AM CDT Sexual Orientation Not on file documented as of this encounter Miscellaneous Notes * Telephone Encounter - Gasper Alvarez RRosemary. - 08/27/2023 1:36 PM CDT Attempted to contact patient for follow up on cancelled appointment. Per previous communications, patient noted that she will be following up with a new provider. Her anticoagulation episode will be resolved at this time. * Addendum Note - Orlin Spann, Pharm.D., R.Ph. - 08/27/2023 1:13 PM CDT Addended by: ORLIN SPANN on: 08/27/2023 01:13 PM Modules accepted: Orders * Addendum Note - Reinaldo Cortez R.N. - 08/27/2023 12:35 PM CDTAddended by: REINALDO CORTEZ on: 08/27/2023 12:35 PM Modules accepted: Orders * Telephone Encounter - Reinaldo Cortez R.N. - 08/27/2023 12:29 PM CDT Patient called the [facility] service t cancel her INR appointment for today in [place].. Patient is going to try to get into Urgent Care in [place] this afternoon to get her INR done. Eventually patient will be transferring her medical care to Dr. Mayer in [place]. Patient is looking for a refill of her warfarin as she states she does not have enough to get through the weekend. Patient uses [facility] pharmacy * Telephone Encounter - Gasper Alvarez R.N. - 08/27/2023 12:18 PM CDT Received call from Lis, caregiver at the [facility]. Patient is currently staying there. Lis calls regarding concerns that the patient will cancel/reschedule her appointment. She was supposed to follow up on her INR on 08/19, and has rescheduled her lab for today. It is currently scheduled at 1:30 pm. Noted while talking with Lis that patient no longer has a [facility] primary care physician. Communication on 08/19 notes that today's anticoagulation visit (08/26) will be her last visit, due to not having established PCP. Noted that her new provider, Dr. Mayer at the [facility] will be managing her warfarin going forward. Lis, from [place], was not aware that this change was made. She is going to touch base with the patient, and will be contacting us later today for clarification. documented in this encounter Plan of Treatment Not on file documented as of this encounter Visit Diagnoses Diagnosis Atrial Fibrillation Longstanding Persistent (HCC)- Primary Branch Operation Evaluation Manager (Current) Anticoagulant Treatment Stroke Cerebrovascular Accident Personal History Monitoring For Therapeutic Drug Therapy documented in this encounter Additional Health Concerns Assessment Noted Time PHQ-9 Depression Total Score: 7 07/30/19 24 4:37 PM IMPROVEMENT INTERN documented as of this encounter Care Teams Cell Builder Relationship Specialty Start Date End Date Elsewhere, Pcp PCP - General Internal Medicine 08/18/23 documented as of this encounter
--- OUTSIDE RECORDS SUMMARY | 2023-10-27 17:09 | XMS_ITS | Referral Summary ---
Author Organization [facility] Address [address] [place] [address] Care Team Providers Care [place] Hand Name Role Phone Elsewhere, Pcp Primary Care Provider Unavailabl e Source Comments Patient records contain information from all sites at [facility]. For routine questions regarding patient records, call [phone] during business hours, M-F 8:00 AM - 5:00 PM Central Time. Record requests for emergency care only can be directed to [phone] at any time.[facility] Encounters Date Type Department Care Team Description 10/21/2023 Refill Department of Family Medicine, [facility], in [address] [phone] Kinsey Villatoro M.D. Med Refill 09/28/2023 12:05 PM CDT - 09/28/2023 12:49 PM CDT Emergency [facility] [address] [place] [phone] Simba Patricio M.D. Medication Management Issue (Primary Dx); Pain Back Lumbar; Fracture Ankle Closed Subsequent Right Discharge Disposition: Home or Self Care 08/27/2023 Clinical Communication Department of Anticoagulation in [place], [place] [address] [place] [address] Gasper Alvarez RStephanyNStephany Anticoagulation (Appointment question) 08/27/2023 Refill Department of Family Medicine, [facility], in [address] [phone] Kinsey Villatoro M.D. Med Refill 08/24/2023 Clinical Communication Pharmacy Prior Auth [phone] Gasper Easton 08/20/2023 Clinical Communication Department of Anticoagulation in [place], [place] [address] [place] [phone] Freya Olea RStephanyN. Anticoagulation (Anticoagulation Department- Medication Refill) 08/20/2023 Orders Only Department of Anticoagulation in [place], [place] [address] [place] [phone] Tiffany Jonyer R.N. 08/20/2023 Orders Only Department of Anticoagulation in [place], [place] [address] [place] [phone] Tiffany Joyner R.N. Atrial Fibrillation Longstanding Persistent (HCC) (Primary Dx); Assisted (Current) Anticoagulant Treatment; Stroke Cerebrovascular Accident Personal History; Monitoring For Therapeutic Drug Therapy 08/19/2023 Clinical Communication Department of Family [facility], [facility], in [address] [phone] Kinsey Villatoro M.D. Form Review ([facility] - orders needed ) 08/18/2023 Clinical Communication Department of [facility], [facility], in [address] [phone] Kinsey Villatoro M.D. Rx Prior Authorization (Imitrex) 08/17/2023 Refill Department of [facility], [facility], in [address] [phone] Kinsey Villatoro M.D. Med Refill 08/14/2023 Clinical Communication Department of [facility], [facility], in [address] [phone] Kinsey Villatoro M.D. 08/13/2023 1:30 PM CDT Anticoagulation Visit Department of Anticoagulation in [place], [place] [address] [place] [phone] Atrial Fibrillation Longstanding Persistent (HCC) (Primary Dx); Assisted (Current) Anticoagulant Treatment; Stroke Cerebrovascular Accident Personal History; Monitoring For Therapeutic Drug Therapy 08/13/2023 9:14 AM CDT - 08/13/2023 11:59 PM CDT Hospital Encounter Department of Laboratory Medicine in [address] [phone] Kinsey Villatoro M.D. Atrial Fibrillation Longstanding Persistent (HCC) Discharge Disposition: Home or Self Care 08/13/2023 8:30 AM CDT Comprehensive Visit Department of [facility], [facility], [address] [phone] Kinsey Villatoro M.D. Deficiency Iron (Primary Dx); Chronic Pain Syndrome; Chronic Diastolic (Congestive) Heart Failure (HCC); Asthma Mild Persistent (HCC); Rhinitis Allergic Discharge Disposition: Home or Self Care 08/12/2023 Orders Only Department of Anticoagulation in [address] [phone] Carolina Ace R.N. Atrial Fibrillation Longstanding Persistent (HCC) (Primary Dx) 08/12/2023 Clinical Communication Department of Family [facility], [facility], [address] [phone] Kinsey Villatoro M.D. Form Review ([facility] annual order ) 08/11/2023 Clinical Communication Department of Family Medicine, [facility], [address] [phone] Kinsey Villatoro M.D. 08/10/2023 Clinical Communication Department of Family [facility], [facility], in [address] [phone] Kinsey Villatoro M.D. Form Review (Gift cards - annual wellness, A1c test) 08/07/2023 Clinical Communication Department of Family Medicine, [facility], in [address] [phone] Kinsey Villatoro M.D. Order Request 08/07/2023 3:00 PM BUSHING AND BROACH OPERATOR Anticoagulation Visit Department of Anticoagulation in [place], [place] [address] [place] [address] Kinsey Villatoro M.D. Atrial Fibrillation Longstanding Persistent (HCC) (Primary Dx); Assisted (Current) Anticoagulant Treatment; Stroke Cerebrovascular Accident Personal History; Monitoring For Therapeutic Drug Therapy 08/06/2023 Refill Department of Family Medicine, [facility], in [address] [phone] Kinsey Villatoro M.D. Med Refill 08/06/2023 Clinical Communication Department of Family [facility], [facility], [address] [phone] Kinsey Villatoro M.D. 08/06/2023 Clinical Communication Department of Family Medicine, [facility], in [address] [place] [address] Kinsey Villatoro M.D. 08/04/2023 Clinical Communication Department of Family Medicine, [facility], in [address] [phone] Knisey Villatoro M.D. New Med Request 08/04/2023 Refill Department of Family Medicine, [facility], in [address] [phone] Kinsey Villatoro M.D. Med Refill 08/03/2023 Orders Only Department of Anticoagulation in [place], [place] [address] [place] [address] Greta Castellanos R.N. 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 07/31/2023 Clinical Communication Department of Family Medicine, [facility], in [address] [phone] Kinsey Villatoro M.D. Form Review ([facility] new admit) 07/31/2023 Clinical Communication Department of Anticoagulation in [address] [phone] Armand Flores R.N. Anticoagulation (CCM Enrollment) 07/31/2023 Clinical Communication Department of Anticoagulation in [address] [phone] Gasper Aguilar Anticoagulation (New Enrollment ) 07/30/2023 3:30 PM BUSHING AND BROACH OPERATOR Office Visit Department of Family Medicine, [facility], in [address] [phone] Kinsey Villatoro M.D. Chronic Pain Syndrome (Primary Dx); Polypharmacy; Attention Deficit Hyperactive Disorder; Bipolar II Disorder ([facility]); Restless Leg Syndrome; Anemia; Deficiency Iron; Bypass Gastric Anne En Y Status Post; Deficiency Of Other Specified B Group Vitamins; Atrial Fibrillation Longstanding Persistent ([facility]); Diabetes Mellitus Type 2 Without Complication ([facility]); Morbid Obesity Body Mass Index >= 35 with Comorbid Condition ([facility]); Menopausal And Female Climacteric States Discharge Disposition: Home or Self Care 07/29/2023 Orders Only Department of [facility], [facility], in [address] [phone] Kinsey Villatoro M.D. Annual Medicare Examination Return (Primary Dx) from Last 3 Months Allergies Active Allergy Reactions Criticality Noted Date Comments Adhesive Rash 03/12/2017 Patient allergic to pressure tape or foam tape. Aspirin Other (see comments) Low 03/14/2009 Due to gastric bypass Cephalexin Rash Medium 03/11/2009 Erythromycin Rash Medium 03/11/2009 Latex Other (see comments) 07/09/2021 Added based on information entered during log entry, please review and add reactions, type, and severity as needed Mold Other (see comments) 05/13/2023 Naproxen Rash 04/25/2009 Nsaids (Non-Steroidal Anti-Inflammatory Drug) GI intolerance 03/09/2015 Penicillins Rash Medium 03/11/2009 Sulfa (Sulfonamide Antibiotics) Rash Medium 03/11/2009 Sulfamethoxazole-Trimet hoprim Rash 07/21/2005 Tolmetin Rash 07/03/2011 Pt had bariatric surgery, should not ever take oral NSAIDS due to risk of gastric ulcers. Pt had bariatric surgery, should not ever take oral NSAIDS due to risk of gastric ulcers. Pt had bariatric surgery, should not ever take oral NSAIDS due to risk of gastric ulcers. Tramadol Rash 05/18/2015 Troleandomycin Rash 03/12/2017 Patient unsure if she also had angioedema from these medications. Medications Medication Sig Dispensed Refills Start Date End Date Status sertraline (for_ZOLOFT) 100 mg tablet Take 200 mg by mouth daily. 03/17/2017 Active zolpidem (for_AMBIEN) 5 mg tablet Take 5 mg by mouth at bedtime. 1 04/14/2017 Active polyethylene glycol (for_MIRALAX) 17 gram powder packet Take 17 g by mouth daily. Mix in 4-8 ounces of water or juice and drink two times daily Active ONETOUCH DELICA LANCETS 33 gauge misc TEST 2 TIMES PER WEEK 3 07/19/2017 Active lancets misc One touch delica lancets 33g Dispense item covered by pt ins. E11.9 NIDDM type II - Test 2 times per week 07/19/2017 Active budesonide-formoter ol (for_SYMBICORT) 80-4.5 mcg/actuation inhaler Inhale 2 puffs 2 (two) times a day. Rinse mouth with water after use to reduce aftertaste and incidence of candidiasis. Do not swallow. Active ipratropium-albuter ol (for_DUO-NEB) 0.5-2.5 mg/3 mL nebulizer solution Take 3 mL by nebulization 2 (two) times a day. Take at 7:00 am, 4:00 pm Active acetaminophen (TYLENOL) 500 mg tablet Take 1,000 mg by mouth 4 (four) times a day. Take at 7:00 am, 12:00 pm, 5:00 pm, 10:00 pm Active magnesium hydroxide (magnesium hydroxide) 400 mg/5 mL suspension Take 30 mL by mouth at bedtime as needed (constipation). Active hydrocortisone (CORTIZONE) 1 % ointment Apply topically to hemorrhoid two times daily as needed Active diphenhydrAMINE (BENADRYL) 25 mg capsule Take 25 mg by mouth every 4 (four) hours as needed for itching. Active aluminum-magnesium hydroxide 200-200 mg/5 mL suspension Take 30 mL by mouth 3 (three) times a day with meals. Shake Well. Active lisinopril (PRINIVIL,ZESTRIL) 10 mg tablet Take 1 tablet (10 mg total) by mouth daily. 90 tablet 02/08/2019 Active torsemide (DEMADEX) 20 mg tablet Take 2 tablets (40 mg total) by mouth daily. 180 tablet 02/08/2019 Active pregabalin (LYRICA) 100 mg capsule Take 1 capsule (100 mg total) by mouth 3 (three) times a day. Take at 7:00 am, 4:00 pm, 8:00 pm 90 capsule 02/07/2019 Active terbinafine (LamISIL) 1 % cream 11/23/2019 Activ e omeprazole (PriLOSEC) [address] capsule Take 40 mg by mouth. 04/13/2013 Acti ve nebulizer accessories kit For home use. Length of need: 12 months 03/16/2018 Active miscellaneous medical supply [facility] Length: calf Strength: 16-20 mmHg Circumference in cm: For calf: Ankle 12, Calf 18.5 , Ankle to calf length 12 . 03/15/2018 Active blood glucose strip-disp meter kit Check blood sugar every Thursday and at rotating times Dispense item covered by pt ins. E11.65 NIDDM type II, controlled 06/06/2019 Active dextroamphetamine-a mphetamine (ADDERALL) 10 mg tablet Take 10 mg by mouth 2 (two) times a day. Active frulf-e-zofxbambvjn se 300 unit capsule Take 300 Units by mouth. 12/17/2020 Active Xanax 0.5 mg tablet Take 0.5 mg by mouth 2 (two) times a day as needed. 06/18/2023 Active busPIRone (BUSPAR) 10 mg tablet 07/06/2023 Active clindamycin (CLEOCIN) 150 mg capsule Take 600 mg by mouth daily as needed. 01/03/2021 Active ergocalciferol (DRISDOL) 50,000 Unit capsule Take 50,000 Units by mouth over 168 hr. 01/23/2021 Active fluticasone propion-salmeteroL 250-50 mcg/dose diskus inhaler Inhale 1 puff. 12/14/2020 Active haloperidoL (HALDOL) 1 mg tablet Take by mouth. 01/30/2023 Active ketoconazole (NIZORAL) 2 % shampoo WASH TO AFFECTED AREA ON SCALP AND CHEST 3 TIMES WEEKLY LATHER AND LET SIT FOR SEVERAL MINUTES BEFORE RINSING 11/12/2021 Active loperamide (IMODIUM A-D) 2 mg capsule Take by mouth. 01/30/2023 Act bisi metFORMIN (GLUCOPHAGE) 500 mg tablet Take 500 mg by mouth. 01/21/2021 Active multivitamin (FLINTSTONES) chewable Take two daily Active rOPINIRole (REQUIP) 0.5 mg tablet Take by mouth daily. 07/08/2023 A ctive saliva substitution (Biotene Dry Mouth Oral Rinse) mouthwash Take 15 mL by mouth every 6 (six) hours as needed. 12/14/2020 Active sennosides-docusate sodium (SENOKOT-S) 8.6-50 mg per tablet Take 2-3 tablets by mouth 2 (two) times a day as needed. 09/28/2020 Active tacrolimus (PROTOPIC) 0.1 % ointment 07/21/2023 Active triamcinolone (KENALOG) 0.1 % cream APPLY THIN LAYER TO ITCHY AREA OF SKIN 1-2X DAILY FOR UP TO 2 WEEKS AT A TIME , TAKE 2 WEEKS OF THEN REPEAT NEEDED FOR FLARES 11/12/2021 Active fluticasone propionate (FLONASE) 50 mcg/actuation nasal spray Administer 1 spray into each nostril 2 (two) times a day. 16 g 11 07/30/2023 Active azelastine (ASTELIN) 137 mcg/spray (0.1 %) nasal spray Administer 1 spray into each nostril 2 (two) times a day. 30 mL 3 07/30/2023 Active nystatin (NYSTOP) 100,000 unit/gram powder Apply topically 2 (two) times a day as needed (rash/irritation). 30 g 11 08/05/2023 Active cyanocobalamin (VITAMIN B12) 1,000 mcg tablet Take 1 tablet (1,000 mcg total) by mouth daily. 90 tablet 3 08/10/2023 Active SUMAtriptan (IMITREX) 50 mg tablet Take 1 tablet (50 mg total) by mouth as needed for migraine. May repeat dose once in 2 hours if migraine is unresolved. Do not exceed 200 mg in 24 hours. 20 tablet 11 08/12/2023 Active haloperidoL (HALDOL) 0.5 mg tablet 08/10/2023 Active ondansetron ODT (ZOFRAN-ODT) 4 mg disintegrating tablet Dissolve 1 tablet (4 mg total) in the mouth every 8 (eight) hours as needed for nausea or vomiting. 10 tablet 08/13/2023 Active metoprolol tartrate (LOPRESSOR) 50 mg tablet Take 1 tablet (50 mg total) by mouth 2 (two) times a day. 180 tablet 08/13/2023 Active loratadine (CLARITIN) 10 mg tablet Take 1 tablet (10 mg total) by mouth daily. 90 tablet 3 08/13/2023 Active atorvastatin (LIPITOR) 40 mg tablet Take 1 tablet (40 mg total) by mouth at bedtime. 90 tablet 08/13/2023 Active simethicone (MYLICON) 125 mg chewable tablet Chew 1 tablet (125 mg total) 4 (four) times a day as needed for flatulence. Take at 7:00 am, 12:00 pm, 5:00 pm, 8:00 pm 180 tablet 1 08/13/2023 Active diaper,brief,adult, disposable misc Use daily as needed for incontinence. 32 each 08/13/2023 Active Ventolin HFA 90 mcg/actuation inhaler Inhale 2 puffs every 4 (four) hours as needed for shortness of breath. 6.7 g 2 08/13/2023 Active Jantoven 3 mg tablet Please take as directed by your Anticoagulation Clinic. 15 tablet 08/27/2023 Active Active Problems Problem Noted Date Diagnosed Date Chronic Migraine 08/19/2023 History Of Falling 08/16/2023 Hyperlipidemia 08/04/2023 Restless Leg Syndrome 08/04/2023 Monitoring For Therapeutic Drug Therapy 07/31/19 Bypass Gastric Anne En Y Status Post 07/30/2023 Anemia 07/30/2023 Deficiency Iron 07/30/2023 Assisted (Current) Anticoagulant Treatment 07/03 Stroke Cerebrovascular Accident Personal History 07/30/2023 Deficiency Vitamin D 01/16/2022 Phobia Social 01/02/2022 Other Stimulant Dependence In Remission 12/21/19 Moderate Or Severe Use Disor cami (Dependence) Drug Cocaine Remission 12/20/2021 Posttraumatic Stress Disorder Prolonged 12/13/19 Chronic Diastolic (Congestive) Heart Failure 12/2020 Postlaminectomy Syndrome 05/01/2020 Deviation Nasal Septal 02/08/2020 Deformity Nasal 02/08/2020 Atrial Fibrillation Longstanding Persistent 09/2018 Anxiety 01/11/2018 Major Depressive Disorder, Recurrent, Unspecifie d 01/11/2018 Loss Hearing Sensorineural Bilateral 08/20/2017 Attention Deficit Hyperactive Disorder 7 Morbid Obesity Body Mass Ind ex >= 35 with Comorbid Condition 03/12/2017 Asthma Mild Persistent 03/12/2017 Chronic Pain Syndrome 12/31/2016 Menopausal And Female Climacteric States 017 Bipolar II Disorder 06/20/2016 Diabetes Mellitus Type 2 Without Complication Abuse Tobacco Smoking 05/30/2014 Spinal Stenosis Lumbar Regio n Without Neurogenic Claudication 05/01/2014 Deficiency Of Other Specified B Group Vitamins 0 01/15/2012 Hypertensive Heart Disease With Heart Failure Gastroesophageal Reflux Disease NOS 11/02/2006 Insomnia 11/02/2006 Ventral Hernia Without Obstruction Or Gangrene 0 02/07/2004 Rhinitis Allergic 02/07/2004 Resolved Problems Problem Noted Date Diagnosed Date Resolved Date Poisoning By Unspecified Jacoby gs Medicaments And Biological Substances Accidental Unintentional Initial 12/12/2021 07/30/2023 Hemiplegia And Hemiparesis F ollowing Cerebral Infarction Affecting Left Nondominant Side 10/15/2020 07/30/2023 Stroke 01/11/2018 07/30/2023 Acute Respiratory Failure With Hypoxia 03/19/2017 07/30/2023 Peptic Ulcer Site Unspecifie d Unspecified As Acute Or Chronic Without Hemorrhage Or Perforation 03/31/2011 07/30/2023 Immunizations Name Administration Dates Next Due Influenza TIV (IM) 04/03/2010,03/31/2005, 003 Influenza, Unspecified 03/22/2015 PPSV23 07/08/2001 Td, (Adult) Unspecified 07/25/2006 Tdap 09/02/2011 influenza vaccine quad (FLUZ ONE/FLUARIX) (6 months and older)(PF) 02/12/2017 Social History Tobacco Use Types Packs/Day Years Used Date Smoking Tobacco: Former Cigarettes Smokeless Tobacco: Never Tobacco Cessation:Counseling Given: Not Answered Comments:Quit in 2022. Alcohol Use Standard Drinks/Week [...] AM CDT Sexual Orientation Not on file Last Filed Vital Signs Vital Sign Reading Time Taken Comments Blood Pressure 133/105 09/28/2023 12:30 PM CDT Pulse 85 09/28/2023 12:44 PM CDT Temperature 36.8 ??C (98.2 ??F) 09/28/2023 12:09 PM C DT Respiratory Rate 18 09/28/2023 12:26 PM CDT Oxygen Saturation 97% 09/28/2023 12:44 PM CDT Inhaled Oxygen Concentration - - Weight 91.8 kg (202 lb 6.1 oz) 08/13/2023 8:39 A M CDT Height 157.5 cm (5' 2) 07/30/2023 2:52 PM BUSHING AND BROACH OPERATOR Body Mass Index 37.02 07/30/2023 2:52 PM BUSHING AND BROACH OPERATOR Plan of Treatment Not on file Medical Devices Implanted Type Area Combat Rifle Crewmember Device Identifier Shelf Expiration Date Model / Serial / Lot Orthopedic Other Orthopedic Other Back Orthopedic Other Orthopedic Other Hip Orthopedic Other Orthopedic Other Shoulder Procedures Procedure Name Priority Date/Time Associated Diagnosis Comments INR REFLEX, POCT, B Routine 08/13/2023 9 :24 AM CDT Atrial Fibrillation Longstanding Persistent (HCC) CBC WITH DIFFERENTIAL, B Routine 07/30/2023 4:48 PM BUSHING AND BROACH OPERATOR Deficiency Iron Anemia FERRITIN, S Routine 07/30/2023 4:48 PM BUSHING AND BROACH OPERATOR Deficiency Iron Anemia IRON AND TOT IRON-BINDING CAPACITY, S/P Routine 07/30/2023 4:48 PM BUSHING AND BROACH OPERATOR Deficiency Iron Anemia HEMOGLOBIN A1C, B Routine 07/30/2023 4:4 8 PM BUSHING AND BROACH OPERATOR Diabetes Mellitus Type 2 Without Complication (HCC) COMPREHENSIVE METABOLIC PANEL, S/P Routine 07/30/2023 4:47 PM BUSHING AND BROACH OPERATOR Atrial Fibrillation Longstanding Persistent (HCC) OUTSIDE MG MAMMOGRAM Routine 07/14/2022 2:10 PM BUSHING AND BROACH OPERATOR EXTI LIPID PANEL W REFLEX MEASURED LDL Routine 11/21/2019 12:02 PM CDT from Last 3 Months or Most Recently Relevant to Health Maintenance Results * INR Reflex, POCT, Blood (08/13/2023 9:24 AM CDT) INR Reflex, POCT, B 1.7 08/13/2023 9:24 AM CDT [facility] Comment: ----ADDITIONAL INFORMATION---- Standard intensity warfarin therapeutic range: 2.0 to 3.0 ?? High intensity warfarin therapeutic range: 2.5 to 3.5 Blood (Blood, Capillary) 08/13/2023 9:24 AM CDT 08/13/2023 9:24 AM CDT Kinsey Villatoro M.D. LAB POCT ORDERABLE S - DEVICE Performing Organization Address City/State/[facility] Co de Phone Number [facility] [address] [place] [id number], [facility] CNFL [facility] in [address] [address] * (ABNORMAL) Iron and Total Iron-Binding Capacity (07/30/2023 4:48 PM BUSHING AND BROACH OPERATOR) Pathologist [facility] Iron 22(L) 35 - 145 mcg/dL 07/31/2023 1:44 PM BUSHING AND BROACH OPERATOR RDWG Total Iron Binding Capacity 507(H) 250 - 400 mcg/dL 07/31/2023 1:44 PM BUSHING AND BROACH OPERATOR RDWG Percent Saturation 4(L) 14 - 50 % 07/31/2023 1:44 PM BUSHING AND BROACH OPERATOR RDWG Blood (Blood, Venous) 07/30/2023 4:48 PM BUSHING AND BROACH OPERATOR 07/31/2023 1:21 PM BUSHING AND BROACH OPERATOR Kinsey Villatoro M.D. LAB BLOOD ADD-ON [facility] [address] [place] [address], [facility] RDWG [facility] in [place] [address] [place] [address] * (ABNORMAL) CBC with Differential, Blood (07/30/2023 4:48 PM BUSHING AND BROACH OPERATOR) [facility] Hemoglobin 10.1(L) 11.6 - 15.0 g/dL 07/30/2023 5:26 PM BUSHING AND BROACH OPERATOR CNFL Hematocrit 34.3(L) 35.5 - 44.9 % 07/30/2023 5:26 PM BUSHING AND BROACH OPERATOR CNFL Erythrocytes 4.57 3.92 - 5.13 x10(12)/L 07/30/2023 5:26 PM BUSHING AND BROACH OPERATOR CNFL MCV 75.1(L) 78.2 - 97.9 fL 07/30/2023 5:26 PM BUSHING AND BROACH OPERATOR CNFL RBC Distrib Width 18.2(H) 12.2 - 16.1 % 07/30/2023 5:26 PM BUSHING AND BROACH OPERATOR CNFL Platelet Count 244 157 - 371 x10(9)/L 07/30/2023 5:26 PM BUSHING AND BROACH OPERATOR CNFL Leukocytes 7.0 3.4 - 9.6 x10(9)/L 07/30/2023 5:26 PM BUSHING AND BROACH OPERATOR CNFL Neutrophils 5.10 1.56 - 6.45 x10(9)/L 07/30/2023 5:26 PM BUSHING AND BROACH OPERATOR CNFL Lymphocytes 1.06 0.95 - 3.07 x10(9)/L 07/30/2023 5:26 PM BUSHING AND BROACH OPERATOR CNFL Monocytes 0.61 0.26 - 0.81 x10(9)/L 07/30/2023 5:26 PM BUSHING AND BROACH OPERATOR CNFL Eosinophils 0.20 0.03 - 0.48 x10(9)/L 07/30/2023 5:26 PM BUSHING AND BROACH OPERATOR CNFL Basophils 0.06 0.01 - 0.08 x10(9)/L 07/30/2023 5:26 PM BUSHING AND BROACH OPERATOR CNFL Blood (Blood, Venous) 07/30/2023 4:48 PM BUSHING AND BROACH OPERATOR 07/30/2023 4:49 PM BUSHING AND BROACH OPERATOR Kinsey Villatoro M.D. LAB BLOOD ADD-ON Performing Organization Address City/[facility]/ZIP Co de Phone Number [address] [address], [facility] [address] [address] * (ABNORMAL) Hemoglobin A1c (07/30/2023 4:48 PM BUSHING AND BROACH OPERATOR) Pathologist [facility] Hemoglobin A1c, B 6.9(H) 4.2 - 5.6 % 07/30/2023 5:10 PM BUSHING AND BROACH OPERATOR CNFL Comment: Hemoglobin A1c values greater than or equal to 6.5 percent are diagnostic for diabetes mellitus. ??Diagnosis should be confirmed by repeat testing. ??In diabetic patients, HbA1c goals should be discussed with healthcare provider. Blood (Blood, Venous) 07/30/2023 4:48 PM BUSHING AND BROACH OPERATOR 07/30/2023 4:49 PM BUSHING AND BROACH OPERATOR Kinsey Villatoro M.D. LAB BLOOD ADD-ON [facility] [address] [place] [address], [facility] CNFL [address] [address] * Ferritin (07/30/2023 4:48 PM BUSHING AND BROACH OPERATOR) Ferritin, S 21 11 - 328 mcg/L 07/31/2023 1:53 PM BUSHING AND BROACH OPERATOR RDWG Comment: Biotin has been identified by the slitter scorer cut off operator as a potential interfering substance. Higher concentrations of biotin may be found in multivitamins, hair/nail supplements, and workout supplements. If the result does not match clinical observations, repeat testing after patient refrains from the use of supplements for at least 12 hours. Blood (Blood, Venous) 07/30/2023 4:48 PM BUSHING AND BROACH OPERATOR 07/31/2023 1:21 PM BUSHING AND BROACH OPERATOR Kinsey Villatoro M.D. LAB BLOOD ADD-ON [facility] [address] [place] [address], [place] [facility] in [place] [address] [place] [id number] * (ABNORMAL) Comprehensive Metabolic Panel (07/30/2023 4:47 PM BUSHING AND BROACH OPERATOR) Potassium, P 4.0 3.6 - 5.2 mmol/L 07/30/2023 5:11 PM BUSHING AND BROACH OPERATOR CNFL Sodium, P 137 135 - 145 mmol/L 07/30/2023 5:11 PM BUSHING AND BROACH OPERATOR CNFL Chloride, P 98 98 - 107 mmol/L 07/30/2023 5:11 PM BUSHING AND BROACH OPERATOR CNFL Bicarbonate, P 28 22 - 29 mmol/L 07/30/2023 5:11 PM BUSHING AND BROACH OPERATOR CNFL Anion Gap, P 11 7 - 15 07/30/2023 5:11 PM BUSHING AND BROACH OPERATOR CNFL BUN (Blood Urea Nitrogen), P 15 6 - 21 mg/dL 07/30/2023 5:11 PM BUSHING AND BROACH OPERATOR CNFL Creatinine 0.62 0.59 - 1.04 mg/dL 07/30/2023 5:11 PM BUSHING AND BROACH OPERATOR CNFL Estimated GFR (eGFR) >90 >=60 mL/min/BS A 07/30/2023 5:11 PM BUSHING AND BROACH OPERATOR CNFL Comment: Estimated GFR calculated using the 2020 CKD_EPI creatinine equation. Calcium, Total, P 8.5(L) 8.8 - 10.2 mg/dL 07/30/2023 5:11 PM BUSHING AND BROACH OPERATOR CNFL Glucose, P 113 70 - 140 mg/dL 07/30/2023 5:11 PM BUSHING AND BROACH OPERATOR CNFL Protein, Total, P 7.0 6.3 - 7.9 g/dL 07/30/2023 5:11 PM BUSHING AND BROACH OPERATOR CNFL Albumin, P 4.1 3.5 - 5.0 g/dL 07/30/2023 5:11 PM BUSHING AND BROACH OPERATOR CNFL Aspartate Aminotransferase (AST), P 42 8 - 43 U/L 07/30/2023 5:11 PM BUSHING AND BROACH OPERATOR CNFL Alkaline Phosphatase, P 116(H) 35 - 104 U/L 07/30/2023 5:11 PM BUSHING AND BROACH OPERATOR CNFL Alanine Aminotransferase (ALT), P 47(H) 7 - 45 U/L 07/30/2023 5:11 PM BUSHING AND BROACH OPERATOR CNFL Bilirubin, Total, P <0.2 0.0 - 1.2 mg/dL 07/30/2023 5:11 PM BUSHING AND BROACH OPERATOR CNFL Blood (Blood, Venous) 07/30/2023 4:47 PM BUSHING AND BROACH OPERATOR 07/30/2023 4:49 PM BUSHING AND BROACH OPERATOR Kinsey Villatoro M.D. LAB BLOOD ADD-ON [facility] [address] [place] [id number], [facility] CNFL [facility] [place] [address] * MM screening mammo BI-Outside Mammogram (07/14/2022 2:10 PM BUSHING AND BROACH OPERATOR) Narrative IIMS - 08/05/2023 1:25 PM BUSHING AND BROACH OPERATOR This order has been created and auto-finalized to support the import of outside images. If available, original interpretation can be found on the Media Tab in Chart Review, in Document Viewer, or as an image in QREADS. If a re-interpretation or overread is required please follow defined workflow. ?? Provider Not In System IMG BI PROCEDURES IIMS NA from Last 3 Months or Most Recently Relevant to Health Maintenance Advance Directives For more information, please contact: [phone] * Full Code (Latest Code Status on File) Date Activated Date Inactivated Comments 01/11/2018 4:46 PM 01/13/2018 6:25 PM Question Answer Comments Full Code: Discussed * Full Code Date Activated Date Inactivated Comments 05/29/2017 12:36 AM 05/29/2017 6:55 PM Question Answer Comments Full Code: Discussed Care Teams Washhouse Hand Relationship Specialty Start Date End Date Elsewhere, Pcp PCP - General Internal Medicine 08/18/23
--- OUTSIDE RECORDS SUMMARY | 2023-10-27 17:09 | XMS_ITS | Encounter Summary ---
Author Organization [facility] Address [address] [place] [id number] Care Team Providers Care Canvassing Manager Name Role Phone Elsewhere, Pcp Primary Care Provider Unavailabl e Reason for Visit * Reason Comments Med Refill Pt presents from SNF with ongoing ankle pain from fx on 09/14. Pt reports she ran out of pain medications last night. Encounter Details Date Type Department Care Team ([facility] st Contact Info) Description 09/28/2023 12:05 PM CDT - 09/28/2023 12:49 PM CDT Emergency [place] [facility] [address] [place] [phone] Simba Patricio M.D. [address] [place] [phone] Medication Management Issue (Primary Dx); Pain Back Lumbar; Fracture Ankle Closed Subsequent Right Discharge Disposition: Home or Self Care Social [...] CDT Inhaled Oxygen Concentration - - Weight - - Height - - Body Mass Index - - documented in this encounter Discharge Instructions * Attachments The following attachments cannot be sent through Care Everywhere. * Chronic Back Pain Ldem-nf-Juvc ([place]an) documented in this encounter Medications at Time of Discharge Medication Sig Dispensed Refills Start Date End Date acetaminophen (TYLENOL) 500 mg tablet Take 1,000 mg by mouth 4 (four) times a day. Take at 7:00 am, 12:00 pm, 5:00 pm, 10:00 pm bhpiw-z-ufgenbytcxodu 300 unit capsule Take 300 Units by mouth. 12/17/2020 aluminum-magnesium hydroxide 200-200 mg/5 mL suspension Take 30 mL by mouth 3 (three) times a day with meals. Shake Well. atorvastatin (LIPITOR) 40 mg tablet Take 1 tablet (40 mg total) by mouth at bedtime. 90 tablet 08/13/2023 azelastine (ASTELIN) 137 mcg/spray (0.1 %) nasal spray Administer 1 spray into each nostril 2 (two) times a day. 30 mL 3 07/30/2023 blood glucose strip-disp meter kit Check blood sugar every Thursday and at rotating times Dispense item covered by pt ins. E11.65 NIDDM type II, controlled 06/06/2019 budesonide-formoterol (for_SYMBICORT) 80-4.5 mcg/actuation inhaler Inhale 2 puffs 2 (two) times a day. Rinse mouth with water after use to reduce aftertaste and incidence of candidiasis. Do not swallow. busPIRone (BUSPAR) 10 mg tablet 07/06/2023 clindamycin (CLEOCIN) 150 mg capsule Take 600 mg by mouth daily as needed. 01/03/2021 cyanocobalamin (VITAMIN B12) 1,000 mcg tablet Take 1 tablet (1,000 mcg total) by mouth daily. 90 tablet 3 08/10/2023 dextroamphetamine-amph etamine (ADDERALL) 10 mg tablet Take 10 mg by mouth 2 (two) times a day. diaper,brief,adult,dis posable misc Use daily as needed for incontinence. 32 each 08/13/2023 diphenhydrAMINE (BENADRYL) 25 mg capsule Take 25 mg by mouth every 4 (four) hours as needed for itching. ergocalciferol (DRISDOL) 50,000 Unit capsule Take 50,000 Units by mouth over 168 hr. 01/23/2021 fluticasone propion-salmeteroL 250-50 mcg/dose diskus inhaler Inhale 1 puff. 12/14/2020 fluticasone propionate (FLONASE) 50 mcg/actuation nasal spray Administer 1 spray into each nostril 2 (two) times a day. 16 g 11 07/30/2023 haloperidoL (HALDOL) 0.5 mg tablet 08/10/2023 haloperidoL (HALDOL) 1 mg tablet Take by mouth. 01/30/2023 hydrocortisone (CORTIZONE) 1 % ointment Apply topically to hemorrhoid two times daily as needed ipratropium-albuterol (for_DUO-NEB) 0.5-2.5 mg/3 mL nebulizer solution Take 3 mL by nebulization 2 (two) times a day. Take at 7:00 am, 4:00 pm Jantoven 3 mg tablet Please take as directed by your Anticoagulation Clinic. 15 tablet 08/27/2023 ketoconazole (NIZORAL) 2 % shampoo WASH TO AFFECTED AREA ON SCALP AND CHEST 3 TIMES WEEKLY LATHER AND LET SIT FOR SEVERAL MINUTES BEFORE RINSING 11/12/2021 lancets misc One touch delica lancets 33g Dispense item covered by pt ins. E11.9 NIDDM type II - Test 2 times per week 07/19/2017 loperamide (IMODIUM A-D) 2 mg capsule Take by mouth. 01/30/2023 loratadine (CLARITIN) 10 mg tablet Take 1 tablet (10 mg total) by mouth daily. 90 tablet 3 08/13/2023 magnesium hydroxide (magnesium hydroxide) 400 mg/5 mL suspension Take 30 mL by mouth at bedtime as needed (constipation). metFORMIN (GLUCOPHAGE) 500 mg tablet Take 500 mg by mouth. 01/21/2021 metoprolol tartrate (LOPRESSOR) 50 mg tablet Take 1 tablet (50 mg total) by mouth 2 (two) times a day. 180 tablet 08/13/2023 miscellaneous medical supply [facility] Length: calf Strength: 16-20 mmHg Circumference in cm: For calf: Ankle 12, Calf 18.5 , Ankle to calf length 12 . 03/15/2018 multivitamin (FLINTSTONES) chewable Take two daily nebulizer accessories kit For home use. Length of need: 12 months 03/16/2018 nystatin (NYSTOP) 100,000 unit/gram powder Apply topically 2 (two) times a day as needed (rash/irritation). 30 g 11 08/05/2023 omeprazole (PriLOSEC) [address] capsule Take 40 mg by mouth. 04/13/2013 ondansetron ODT (ZOFRAN-ODT) 4 mg disintegrating tablet Dissolve 1 tablet (4 mg total) in the mouth every 8 (eight) hours as needed for nausea or vomiting. 10 tablet 08/13/2023 ONETOUCH DELICA LANCETS 33 gauge [facility] TEST 2 TIMES PER WEEK 3 07/19/2017 polyethylene glycol (for_MIRALAX) 17 gram powder packet Take 17 g by mouth daily. Mix in 4-8 ounces of water or juice and drink two times daily pregabalin (LYRICA) 100 mg capsule Take 1 capsule (100 mg total) by mouth 3 (three) times a day. Take at 7:00 am, 4:00 pm, 8:00 pm 90 capsule 11 02/07/2019 rOPINIRole (REQUIP) 0.5 mg tablet Take by mouth daily. 07/08/2023 saliva substitution (Biotene Dry Mouth Oral Rinse) mouthwash Take 15 mL by mouth every 6 (six) hours as needed. 12/14/2020 sennosides-docusate sodium (SENOKOT-S) 8.6-50 mg per tablet Take 2-3 tablets by mouth 2 (two) times a day as needed. 09/28/2020 sertraline (for_ZOLOFT) 100 mg tablet Take 200 mg by mouth daily. 03/17/2017 simethicone (MYLICON) 125 mg chewable tablet Chew 1 tablet (125 mg total) 4 (four) times a day as needed for flatulence. Take at 7:00 am, 12:00 pm, 5:00 pm, 8:00 pm 180 tablet 1 08/13/2023 SUMAtriptan (IMITREX) 50 mg tablet Take 1 tablet (50 mg total) by mouth as needed for migraine. May repeat dose once in 2 hours if migraine is unresolved. Do not exceed 200 mg in 24 hours. 20 tablet 11 08/12/2023 tacrolimus (PROTOPIC) 0.1 % ointment 07/21/2023 terbinafine (LamISIL) 1 % cream 11/23/2019 triamcinolone (KENALOG) 0.1 % cream APPLY THIN LAYER TO ITCHY AREA OF SKIN 1-2X DAILY FOR UP TO 2 WEEKS AT A TIME , TAKE 2 WEEKS OF THEN REPEAT NEEDED FOR FLARES 11/12/2021 Ventolin HFA 90 mcg/actuation inhaler Inhale 2 puffs every 4 (four) hours as needed for shortness of breath. 6.7 g 2 08/13/2023 Xanax 0.5 mg tablet Take 0.5 mg by mouth 2 (two) times a day as needed. 06/18/2023 zolpidem (for_AMBIEN) 5 mg tablet Take 5 mg by mouth at bedtime. 1 04/14/2017 documented as of this encounter ED Notes * Simba Patricio M.D. - 09/28/2023 12:25 PM CDT SUBJECTIVE CHIEF COMPLAINT/REASON FOR VISIT Med Refill (Pt presents from [facility] with ongoing ankle pain from fx on 09/14. Pt reports she ran out ofpain medications last night. ) HISTORY OF PRESENT ILLNESS 63-year-old female, chronic low back pain, sustained ankle fracture September 11. Patient maintained on Dilaudid 2 mg q.i.d., and apparently ran out of her medications yesterday. Attempted to call primary care multiple times today, not able to obtain medication refill, so elected to come to the emergency department. However, during her travel time, chart review notes that a limited refill of the patient's pain medication was called in by her primary care team, which was communicated to the patient upon arrival. She was state that her back and ankle pain is significant, 8/10 severity, upon arrival. Also notes nausea given significant pain. Denies any fevers chills or other symptomatology. History provided by: Patient REVIEW OF SYSTEMS Constitutional: Negative. HENT: Negative. Gastrointestinal: Positive for diarrhea and nausea. Negative for vomiting. Musculoskeletal: Positive for back pain (Chronic) and extremity pain (Right ankle, known fracture). Skin: Negative. OBJECTIVE Initial Vitals [09/28/23 1209] Temperature 36.8 ??C Pulse Rate 87 Heart Rate Resp Rate 20 BP SpO2 96 % Pain Score 8 PHYSICAL EXAMINATION Constitutional: Nursing note and vitals reviewed. She is cooperative. Non-toxic appearance. She does not have a sickly appearance. She does not appear ill. She appears distressed. HENT: Head: Normocephalic and atraumatic. Mouth/Throat: Oropharynx is clear and moist. Neck: Neck supple. Cardiovascular: Normal rate. An irregularly irregular rhythm present. Patient with a history of atrial fibrillation Pulmonary/Chest: Effort normal and breath sounds normal. Musculoskeletal: Cervical back: Neck supple. Lumbar back: Tenderness present. No bony tenderness. Right ankle: Tenderness present. Neurological: Alert. Skin: Skin is warm and dry. Psychiatric: She has a normal mood and affect. ASSESSMENT/PLAN Assessment and Plan Impression: Medication refill request, Chronic low back pain, right ankle fracture Plan: 63-year-old female with a history of chronic low back pain and recent right ankle fracture presents to the emergency department requesting refill of her Dilaudid. I did discuss with the patientthat a limited refill was prescribed, though she was wondering if there was any medication she can have some she was here to help improve her discomfort, and help with her mild nausea. After discussion, she states Toradol has worked well in the past, so an injection of Toradol 15 mg IM x1 as well as Zofran 4 mg ODT x1 was given. Patient reported for discharge, as patient states that her prescription medication refills should be delivered to her this afternoon. No narcotic refills were provided to the patient during this emergency department encounter.. Final Diagnoses: as of 09/28/23 1233 Medication Management Issue Pain Back Lumbar - Chronic Fracture Ankle Closed Subsequent Right Simba Patricio M.D. 09/28/23 1233 documented in this encounter Plan of Treatment Not on file documented as of this encounter Visit Diagnoses Diagnosis Medication Management Issue- Primary Pain Back Lumbar Fracture Ankle Closed Subsequent Right documented in this encounter Administered Medications Inactive Administered Medications - up to 3 most recent administrations Medication Order MAR Action Action Date Dose Rate Site ketorolac injection 15 mg (TORADOL) 15 mg, intramuscular, Once as needed, moderate pain or score 4-6 of 10, Starting on Thu09/28/23 at 1226, For 1 dose, Adult IV push rate: Over 15 seconds. Peds IV push rate: Over 1 minute. Doses > 15 mg IV/IM are discouraged due to lack of additional analgesic benefit. Given 09/28/2023 12:26 PM CDT 15 mg Left Deltoid ondansetron ODT disintegrating tablet 4 mg (ZOFRAN-ODT) 4 mg, oral, Once, On Thu09/28/23 at 1221, For 1 dose, When splitting ODT at bedside, handle with gloves and a pill splitter to prevent moisture contact. Given 09/28/2023 12:26 PM CDT 4 mg documented in this encounter Active and Recently Administered Medications Times are shown in CDT. Scheduled Medication Order 09/26/2023 09/27/2023 09/28/2023 ondansetron ODT disintegrating tablet 4 mg (ZOFRAN-ODT) (COMPLETED) 4 mg, oral, Once, On Thu09/28/23 at 1221, For 1 dose, When splitting ODT at bedside, handle with gloves and a pill splitter to prevent moisture contact. 1226 (Given - Provid er: Althea Smalls R.N.) PRN Medication Order 09/26/2023 09/27/2023 09/28/2023 ketorolac injection 15 mg (TORADOL) (COMPLETED) 15 mg, intramuscular, Once as needed, moderate pain or score 4-6 of 10, Starting on Thu09/28/23 at 1226, For 1 dose, Adult IV push rate: Over 15 seconds. Peds IV push rate: Over 1 minute. Doses > 15 mg IV/IM are discouraged due to lack of additional analgesic benefit. 1226 (Given - Provid er: Althea Smalls R.N.) documented in this encounter Additional Health Concerns Assessment Noted Time PHQ-9 Depression Total Score: 7 07/30/19 24 4:37 PM GEOPHYSICAL MANAGER documented as of this encounter Care Teams Canvassing Manager Relationship Specialty Start Date End Date Elsewhere, Pcp PCP - General Internal Medicine 08/18/23 documented as of this encounter
--- OUTSIDE RECORDS SUMMARY | 2023-10-27 17:09 | XMS_ITS | Encounter Summary ---
Author Organization [facility] Address [address] [place] [address] Care Team Providers Care Adult Parole Officer Name Role Phone Elsewhere, Pcp Primary Care Provider Unavailabl e Reason for Visit * Reason Comments Med Refill Encounter Details Date Type Department Care Team (Late st Contact Info) Description 08/27/2023 Refill Department of Family Medicine, [facility], in [address] [phone] Kinsey Villatoro M.D. [address] [place] [phone] Med Refill Social History Tobacco Use Types Packs/Day Years [...] encounter Miscellaneous Notes * Telephone Encounter - Kevin Moreno, RStephanyNStephany - 08/27/2023 2:13 PM CDT See 08/27/23 ACO clinical comm encounter. documented in this encounter Plan of Treatment Not on file documented as of this encounter Visit Diagnoses Not on filedocumented in this encounter Additional Health Concerns Assessment Noted Time PHQ-9 Depression Total Score: 7 07/30/19 24 4:37 PM FORENSIC MEDICAL EXAMINER documented as of this encounter Care Teams Adult Parole Officer Relationship Specialty Start Date End Date Elsewhere, Pcp PCP - General Internal Medicine 08/18/23 documented as of this encounter
--- OUTSIDE RECORDS SUMMARY | 2023-10-27 17:09 | XMS_ITS | Encounter Summary ---
Author Organization [facility] Address [address] [place] [address] Care Team Providers Care Professional Bondsman Name Role Phone Elsewhere, Pcp Primary Care Provider Unavailabl e Reason for Visit * Reason Onset Date Comments Anticoagulation 08/20/2023 Anticoagulation Department- Medication Refill Encounter Details Date Type Department Care Team (Latest Contact Info) Description 08/20/2023 Clinical Communication Department of Anticoagulation in [place], [place] [address] [place] [phone] Freya Olea R.N. [address] [phone] Anticoagulation (Anticoagulation Department- Medication Refill) Social History Tobacco Use Types Packs/Day Years [...] Date Recorded Dental: Regular Dentist Unknown 08/03/19 Sex and Gender Information Value Date Recorded Sex Assigned at Not on file Gender Identity Female 08/13/2017 10:05 AM CDT Sexual Orientation Not on file documented as of this encounter Patient Instructions * Patient Instructions* Freya Olea, R.N. - 08/20/2023 2:48 PM CDT Your next INR will be 3-28-24. This will be your last ACO visit with [facility] Primary Care Anticoagulation Department. You willneed to have your new provider, Dr. Mayer at at the [facility] manage your Warfarin Therapy Plan going forward. You will need to call the Anticoagulation Program for warfarin dosing at the scheduled time for your nurse visit, as indicated on your Patient Appointment Guide (PAG). To reschedule your appointment or for questions about your warfarin, please call Primary Care Anticoagulation Program at [phone] from 7:30 am to 4:30 pm. Thursday-Thursday . When To Contact Your Health Care Provider If you are experiencing any of the following symptoms, Call 911 or go to the emergency room: chest pain, shortness of breath, vomiting or coughing up blood, large amounts of rectal bleeding, symptomsof a stroke- sudden weakness or inability to move a body part (the face, arm or leg), difficulty speaking or trouble understanding others, sudden blurred, decreased vision, or double vision, dizziness, loss of balance /coordination or a sudden, severe headache. If you fall and or hit your head or suffer a blow to the head, seek emergency treatment. Contact your health care provider about your Warfarin dose: Before any surgical procedures (including tooth extractions) and certain non- surgical procedures (for example, colonoscopies). When you are sick with a fever or develop persistent diarrhea or vomiting. If you doubt that you took your Warfarin as directed. If you start an antibiotic or any prescription drug or if you start any herbal or other obbu-yjh-vyfexml product (check with your doctor, a nurse, or pharmacist). If you change your diet significantly. If you decide to stop or start using tobacco or alcohol. If you notice unusual bruising or bleeding. If you notice dark, tarry, or bright red stools or blood in your urine. If you have a painful and swollen calf. documented in this encounter Miscellaneous Notes * Telephone Encounter - Freya Olea R.N. - 08/20/2023 2:34 PM CDT Warfarin Maintenance Nursing Protocol Goal Range 2.0-3.0 (version approved 07/2021) Visit Type: Telephone Primary reason for visit: Routine f/u OR f/u per previous visit recommendations Information provided by:patient INR result: no INR today Goal range: 2.0-3.0 Inclusion Criteria: All inclusion criteria met. Proceeded to exclusion criteria. Exclusion Criteria: Section 1: No Section 1 exclusion criteria, proceeded to Section 2. Section 2: No Section 2 exclusion criteria, proceeded to screening criteria. Screening Criteria: All screening criteria negative. Did not have an INR though today. Not schedule until 08/27/23 Additional Info: No INR today Previous INR was subtherapeutic. Today???s INR is no INR . Dosing and follow up recommendation: Protocol does not apply based on positive exclusion criteria indicated above stating consult required. Consulted Anticoagulation [facility] for plan. Currently bridging: no bridging currently. Additional dosing or follow-up information: None. Pt is on injectable anticoagulant: No. Plan used: Consult. See Anticoagulation Track Calendar for dosing and plan details. Anticoagulation Visit Summary: [facility] Patient repeats back dosing instructions, date of next INR, and has no further questions at this time. Total time spent with patient: N/A * Telephone Encounter - Freya Olea R.N. - 08/20/2023 2:03 PM CDT Patient called by ACO program today as she is overdue for INR. Patient states that she did not knowshe needed an INR today and was under the understanding that she needed one in two weeks. Patient is able to get transportation to an appointment on 08/27/23 but that is the soonest she can come in for an INR. Noticed that patient no longer has a PCP listed, review noted that PCP was changed to elsewhere on 08-18-23. Patient was asked if she had terminated her PCP and was seeking care elsewhere. Shared with patientthat from previous provider notes it appeared that provider Shauna was bridging her until she could find a provider. Patient states that she does have an appointment with another provider to try her out soon. Noted the upcoming appointment with a provider in [place] and patient confirmed she is having an appointment on 08/31/23. Patient is out of warfarin and as their is no PCP listed, the ACO program nurses are unable to senda rx to patients pharmacy. Patient asks if provider Shauna would send enough warfarin for her to get to her 08/31/23 appt. Pharmacy: [facility] Patient was scheduled for an INR on 08-27-23 with an ACO nurse visit. Patient is going to continue taking the same dosing she took this past week. So patient would need Warfarin 3mg tablets #12 to get her to the 08/31/23 appt. Please reach out to patient if a prescription will not be sent. documented in this encounter Plan of Treatment Not on file documented as of this encounter Visit Diagnoses Diagnosis Atrial Fibrillation Longstanding Persistent (HCC)- Primary Chemical Lab Supervisor (Current) Anticoagulant Treatment Stroke Cerebrovascular Accident Personal History Monitoring For Therapeutic Drug Therapy documented in this encounter Additional Health Concerns Assessment Noted Time PHQ-9 Depression Total Score: 7 07/30/19 24 4:37 PM PRESENTATION TEAM MEMBER documented as of this encounter Care Teams Professional Bondsman Relationship Specialty Start Date End Date Elsewhere, Pcp PCP - General Internal Medicine 08/18/23 documented as of this encounter
--- OUTSIDE RECORDS SUMMARY | 2023-10-27 17:09 | XMS_ITS ---
Author Organization [facility] Address [address] [place] [address] Care Team Providers Care Fur Sorter Name Role Phone Unavailable Unavailable Unavailable Surgery Details Not on file Complications Check Surgery Details section. Procedure Estimated Blood Loss Check Surgery Details section. Procedure Findings Check Surgery Details section. Procedure Specimens Taken Check Surgery Details section.
--- OUTSIDE RECORDS SUMMARY | 2023-10-27 17:09 | XMS_ITS | Encounter Summary ---
Author Organization [facility] Address [address] [place] [address] Care Team Providers Care Field Crop Farming Supervisor Name Role Phone Elsewhere, Pcp Primary Care Provider Unavailabl e Reason for Visit * Reason Comments Med Refill Encounter Details Date Type Department Care Team (Late st Contact Info) Description 10/21/2023 Refill Department of Family Medicine, [facility], in [address] [phone] Kinsey Villatoro M.D. [address] [place] [phone] Med Refill Social History Tobacco Use Types [...] as of this encounter Plan of Treatment Not on file documented as of this encounter Visit Diagnoses Not on filedocumented in this encounter Additional Health Concerns Assessment Noted Time PHQ-9 Depression Total Score: 7 07/30/19 24 4:37 PM RV SERVICE TECHNICIAN documented as of this encounter Care Teams Field Crop Farming Supervisor Relationship Specialty Start Date End Date Elsewhere, Pcp PCP - General Internal Medicine 08/18/23 documented as of this encounter
--- OUTSIDE RECORDS SUMMARY | 2023-10-27 17:09 | XMS_ITS | Encounter Summary ---
Author Organization [facility] Address [address] [place] [address] Care Team Providers Care Record Librarian Name Role Phone Elsewhere, Pcp Primary Care Provider Unavailabl e Reason for Referral * Outpatient (Routine) - Authorized Specialty Diagnoses / Procedures Referred By Contac t Referred To Contact Anticoagulation Kinsey Villatoro M.D. [address] [place] [phone] [facility] Referral ID Status Reason Start Date Expiration Date V isits Requested Visits Authorized [id number] Authorized 08/20/2023 02/18/2025 [id number] Encounter Details Date Type Department Care Team (Late st Contact Info) Description 08/20/2023 Orders Only Department of Anticoagulation in [place], [place] [address] [place] [address] Tiffany Joyner, RStephanyNStephany Social History Tobacco Use Types Packs/Day Years [...] as of this encounter Plan of Treatment Scheduled Referrals Name Type Priority Associated Diagnoses Order Schedule Anticoagulation nurse visit (clinic) Outpatient Referral Routine 355 Occurrences starting 08/20/2023 until 11/19/2024 documented as of this encounter Visit Diagnoses Not on filedocumented in this encounter Additional Health Concerns Assessment Noted Time PHQ-9 Depression Total Score: 7 07/30/19 24 4:37 PM PEDIATRIC RN documented as of this encounter Care Teams Record Librarian Relationship Specialty Start Date End Date Elsewhere, Pcp PCP - General Internal Medicine 08/18/23 documented as of this encounter
--- OUTSIDE RECORDS SUMMARY | 2023-10-27 17:09 | XMS_ITS | Encounter Summary ---
Author Organization [facility] Address [address] [place] [address] Care Team Providers Care X Ray Nurse Name Role Phone Elsewhere, Pcp Primary Care Provider Unavailabl e Encounter Details Date Type Department Care Team (Late st Contact Info) Description 08/24/2023 Clinical Communication Pharmacy Prior Auth MARCELINO [phone] Gasper Easton Social History Tobacco Use Types Packs/Day Years [...] Total Score: 7 07/30/19 24 4:37 PM MEDICATION ADMINISTRATION PROFESSIONAL documented as of this encounter Care Teams X Ray Nurse Relationship Specialty Start Date End Date Elsewhere, Pcp PCP - General Internal Medicine 08/18/23 documented as of this encounter
--- OUTSIDE RECORDS SUMMARY | 2023-10-27 17:09 | XMS_ITS | Clinical Summary ---
Author Organization [facility] Address [address] [place] [address] Care Team Providers Care Optical Manufacturing Technician Name Role Phone Elsewhere, Pcp Primary Care Provider Unavailabl e Source Comments Patient records contain information from all sites at [facility]. For routine questions regarding patient records, call [phone] during business hours, M-F 8:00 AM - 5:00 PM Central Time. Record requests for emergency care only can be directed to [phone] at any time.[facility] Allergies Active Allergy Reactions Criticality Noted Date [...] mg total) by mouth daily. 90 tablet 11 02/08/2019 Active torsemide (DEMADEX) 20 mg tablet Take 2 tablets (40 mg total) by mouth daily. 180 tablet 11 02/08/2019 Active pregabalin (LYRICA) 100 mg capsule Take 1 capsule (100 mg total) by mouth 3 (three) times a day. Take at 7:00 am, 4:00 pm, 8:00 pm 90 capsule 11 02/07/2019 Active terbinafine (LamISIL) 1 % cream 11/23/2019 Activ e omeprazole (PriLOSEC) [address] capsule Take 40 mg by mouth. 04/13/2013 Acti ve nebulizer accessories kit For home use. Length of need: 12 months 03/16/2018 Active miscellaneous medical supply misc Length: calf Strength: 16-20 mmHg Circumference in [...] mouth 2 (two) times a day. 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 Med Refill 09/28/2023 12:05 PM CDT - 09/28/2023 12:49 PM CDT Emergency [facility] [address] [place] [address] Simba Patricio M.D. Medication Management Issue (Primary Dx); Pain Back Lumbar; Fracture Ankle Closed Subsequent Right Discharge Disposition: Home or Self Care 08/27/2023 Clinical Communication Department of Anticoagulation in [place], [place] [address] [place] [address] Gasper Alvarez R.N. Anticoagulation (Appointment question) 08/27/2023 Refill Department of [facility], [facility], [address] [phone] Kinsey Villatoro M.D. Med Refill 08/24/2023 Clinical Communication Pharmacy Prior Auth RO [phone] Gasper Easton 08/20/2023 Clinical Communication Department of Anticoagulation in [address] [phone] Freya Olea R.N. Anticoagulation (Anticoagulation Department- Medication Refill) 08/20/2023 Orders Only Department of Anticoagulation in [address] [phone] Tiffany Joyner R.N. 08/20/2023 Orders Only Department of Anticoagulation in [address] [phone] Tiffany Joyner RStephanyN. 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 Form Review ([place] [facility] [place] - orders needed ) 08/18/2023 Clinical Communication Department of [facility], [facility], [address] [phone] Kinsey Villatoro M.D. Rx Prior Authorization (Imitrex) 08/17/2023 Refill Department of [facility], [address] [phone] Kinsey Villatoro M.D. Med Refill 08/14/2023 Clinical Communication Department of [facility], [facility], [address] [place] [phone] Kinsey Villatoro M.D. 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 Atrial Fibrillation Longstanding Persistent (HCC) Discharge Disposition: Home or Self Care 08/13/2023 8:30 AM CDT Comprehensive Visit Department of [facility], [facility], [address] [phone] Kinsey Villatoro M.D. Deficiency Iron (Primary Dx); Chronic Pain Syndrome; Chronic Diastolic (Congestive) Heart Failure (HCC); Asthma Mild Persistent (HCC); Rhinitis Allergic Discharge Disposition: Home or Self Care 08/12/2023 Orders Only Department of Anticoagulation in [address] [phone] Carolina Ace R.N. Atrial Fibrillation Longstanding Persistent (HCC) (Primary Dx) 08/12/2023 Clinical Communication Department of Family Medicine, [facility], in [address] [phone] Kinsey Villatoro M.D. Form Review ([place] annual order ) 08/11/2023 Clinical Communication Department of Family Medicine, [facility], in [address] [phone] Kinsey Villatoro M.D. 08/10/2023 Clinical Communication Department of Family Medicine, [facility], [address] [place] [address] Kinsey Villatoro M.D. Form Review (Gift cards - annual wellness, A1c test) 08/07/2023 3:00 PM MOLDER MACHINE Anticoagulation Visit Department of Anticoagulation in [place], [place] [address] [place] [phone] Kinsey Villatoro M.D. Atrial Fibrillation Longstanding Persistent (HCC) (Primary Dx); Jail (Current) Anticoagulant Treatment; Stroke Cerebrovascular Accident Personal History; Monitoring For Therapeutic Drug Therapy 08/07/2023 Clinical Communication Department of Family Medicine, [facility], [address] [phone] Kinsey Villatoro M.D. Order Request 08/06/2023 Refill Department of Family Medicine, [facility], [address] [phone] Kinsey Villatoro M.D. Med Refill 08/06/2023 Clinical Communication Department of Family Medicine, [facility], in [address] [phone] Kinsey Villatoro M.D. 08/06/2023 Clinical Communication Department of Family Medicine, [facility], in [address] [phone] Kinsey Villatoro M.D. 08/04/2023 Clinical Communication Department of Family Medicine, [facility], in [address] [phone] Kinsey Villatoro M.D. New Med Request 08/04/2023 Refill Department of Family Medicine, [facility], in [address] [phone] Kinsey Villatoro M.D. Med Refill 08/03/2023 Orders Only Department of Anticoagulation in [place], [place] [address] [place] [address] Greta Castellanos R.N. Atrial Fibrillation Longstanding Persistent (HCC) (Primary Dx); Jail (Current) Anticoagulant Treatment; Stroke Cerebrovascular Accident Personal History; Monitoring For Therapeutic Drug Therapy 07/31/2023 Clinical Communication Department of Family Medicine, [facility], [address] [phone] Kinsey Villatoro M.D. 07/31/2023 Clinical Communication Department of Family Medicine, [facility], in [address] [phone] Kinsey Villatoro M.D. Form Review ([place]) 07/31/2023 Clinical Communication Department of Anticoagulation in [address] [phone] Armand Flores R.N. Anticoagulation (CCM Enrollment) 07/31/2023 Clinical Communication Department of Anticoagulation in [address] [phone] Gasper Aguilar Anticoagulation (New Enrollment ) 07/30/2023 3:30 PM MOLDER MACHINE Office Visit Department of Family Medicine, [facility], [address] [phone] Kinsey Villatoro M.D. Chronic Pain Syndrome (Primary Dx); Polypharmacy; Attention Deficit Hyperactive Disorder; Bipolar II Disorder (HCC); Restless Leg Syndrome; Anemia; Deficiency Iron; Bypass Gastric Anne En Y Status Post; Deficiency Of Other Specified B Group Vitamins; Atrial Fibrillation Longstanding Persistent (HCC); Diabetes Mellitus Type 2 Without Complication (HCC); Morbid Obesity Body Mass Index >= 35 with Comorbid Condition (HCC); Menopausal And Female Climacteric States Discharge Disposition: Home or Self Care 07/29/2023 Orders Only Department of Family Medicine, [facility], in [address] [phone] Kinsey Villatoro M.D. Annual Medicare Examination Return (Primary Dx) from Last 3 Months Immunizations Name Administration Dates Next Due Influenza TIV (IM) 04/03/2010,03/31/2005, 003 Influenza, Unspecified 03/22/2015 PPSV23 07/08/2001 Td, (Adult) Unspecified 07/25/2006 Tdap 09/02/2011 influenza vaccine quad (FLUZ ONE/FLUARIX) (6 months and older)(PF) 02/12/2017 Family History Medical History Relation Name Comments Diabetes Brother Diabetes Father Hypertension Mother Multiple sclerosis Sister Relation Name Status Comments Brother Father Mother Sister Social History Tobacco Use Types Packs/Day Years [...] 157.5 cm (5' 2) 07/30/2023 2:52 PM MOLDER MACHINE Body Mass Index 37.02 07/30/2023 2:52 PM MOLDER MACHINE Plan of Treatment Health Maintenance Due Date Last Done Comments CT Colonography 1960 Cervical Cancer Screening 1960 Cologuard 1960 Diabetic Office Visit with F oot Exam 1960 FIT 1960 HIV Screening 1960 Hepatitis C Screening 1960 Urine Albumin 1960 Dilated Eye Exam 01/04/2014 01/04/2013 Tobacco Cessation counseling 07/29/2018 07/29/2017 Hepatitis B Vaccines (1 of 3 - Risk 3-dose series) 2020 Zoster Vaccines (2 of 2) 03/05/2022 01/08/2022 COVID-19 Vaccine (4 - 2022-2 4 season) 2023 04/09/2022, 07/16/2020, 06/18/2020 Mammogram 07/14/2023 07/14/2022, 07/03, 07/29/2019 Office Visit for Blood Press ure Check / Re-check 11/13/2023 08/13/2023 Hemoglobin A1C 01/28/2024 07/30/2023, 06/30/2017 Creatinine Level (Kidney Fun ction Test) 07/29/2024 07/30/2023, 05/22/2023, 07/12/2021, Additional history exists Potassium Level 07/29/2024 07/30/2023, 05/02, 07/12/2021, Additional history exists Sodium Level 07/29/2024 07/30/2023, 05/02, 07/12/2021, Additional history exists Lipid (Cholesterol) Screening 11/20/2024, 06/06/2019, 01/12/2018, Additional history exists Colonoscopy 03/26/2025 03/26/2015 Colorectal Cancer Screening 03/26/2025 DTaP,Tdap,and Td Vaccines (4 - Td or Tdap) 06/24/2032 06/24/2022, 09/29/2011, 09/02/2011, Additional history exists Influenza Vaccine Completed 04/08/2023, , 03/18/2021, Additional history exists Pneumococcal vaccine (0-64 years) Completed 05/12/2023, 01/08/2022, 07/08/2001 Depression Screening (Annual PHQ-2) Completed 07/30/2023 Medical Devices Implanted Type Area Mass Spectrometry Specialist Device Identifier Shelf Expiration Date Model / Serial / Lot Orthopedic Other Orthopedic Other Back Orthopedic Other Orthopedic Other Hip Orthopedic Other Orthopedic Other Shoulder Procedures Procedure Name Priority Date/Time Associated Diagnosis Comments INR REFLEX, POCT, B Routine 08/13/2023 9 :24 AM CDT Atrial Fibrillation Longstanding Persistent (HCC) CBC WITH DIFFERENTIAL, B Routine 07/30/2023 4:48 PM MOLDER MACHINE Deficiency Iron Anemia FERRITIN, S Routine 07/30/2023 4:48 PM MOLDER MACHINE Deficiency Iron Anemia IRON AND TOT IRON-BINDING CAPACITY, S/P Routine 07/30/2023 4:48 PM MOLDER MACHINE Deficiency Iron Anemia HEMOGLOBIN A1C, B Routine 07/30/2023 4:4 8 PM MOLDER MACHINE Diabetes Mellitus Type 2 Without Complication (HCC) COMPREHENSIVE METABOLIC PANEL, S/P Routine 07/30/2023 4:47 PM MOLDER MACHINE Atrial Fibrillation Longstanding Persistent (HCC) OUTSIDE MG MAMMOGRAM Routine 07/14/2022 2:10 PM MOLDER MACHINE EXTI LIPID PANEL W REFLEX MEASURED LDL Routine 11/21/2019 12:02 PM CDT from Last 3 Months or Most Recently Relevant to Health Maintenance Results * INR Reflex, POCT, Blood (08/13/2023 9:24 AM CDT) INR Reflex, POCT, B 1.7 08/13/2023 9:24 AM CDT CNFL Comment: ----ADDITIONAL INFORMATION---- Standard intensity warfarin therapeutic range: 2.0 to 3.0 ?? High intensity warfarin therapeutic range: 2.5 to 3.5 Blood (Blood, Capillary) 08/13/2023 9:24 AM CDT 08/13/2023 9:24 AM CDT Kinsey Villatoro M.D. LAB POCT ORDERABLE S - DEVICE Performing Organization Address City/State/[facility] Co de Phone Number [facility] [address] [place] [address], [facility] CNFL [facility] in [address] [address] * (ABNORMAL) Iron and Total Iron-Binding Capacity (07/30/2023 4:48 PM MOLDER MACHINE) Iron 22(L) 35 - 145 mcg/dL 07/31/2023 1:44 PM MOLDER MACHINE RDWG Total Iron Binding Capacity 507(H) 250 - 400 mcg/dL 07/31/2023 1:44 PM MOLDER MACHINE RDWG Percent Saturation 4(L) 14 - 50 % 07/31/2023 1:44 PM MOLDER MACHINE RDWG Blood (Blood, Venous) 07/30/2023 4:48 PM MOLDER MACHINE 07/31/2023 1:21 PM MOLDER MACHINE Kinsey Villatoro M.D. LAB BLOOD ADD-ON Performing Organization Address City/[facility] Co de Phone Number [facility] [address] [place] [address], [facility] RDWG [facility] in [place] [address] [place] [address], [place] [address] * (ABNORMAL) CBC with Differential, Blood (07/30/2023 4:48 PM MOLDER MACHINE) Hemoglobin 10.1(L) 11.6 - 15.0 g/dL 07/30/2023 5:26 PM MOLDER MACHINE CNFL Hematocrit 34.3(L) 35.5 - 44.9 % 07/30/2023 5:26 PM MOLDER MACHINE CNFL Erythrocytes 4.57 3.92 - 5.13 x10(12)/L 07/30/2023 5:26 PM MOLDER MACHINE CNFL MCV 75.1(L) 78.2 - 97.9 fL 07/30/2023 5:26 PM MOLDER MACHINE CNFL RBC Distrib Width 18.2(H) 12.2 - 16.1 % 07/30/2023 5:26 PM MOLDER MACHINE CNFL Platelet Count 244 157 - 371 x10(9)/L 07/30/2023 5:26 PM MOLDER MACHINE CNFL Leukocytes 7.0 3.4 - 9.6 x10(9)/L 07/30/2023 5:26 PM MOLDER MACHINE CNFL Neutrophils 5.10 1.56 - 6.45 x10(9)/L 07/30/2023 5:26 PM MOLDER MACHINE CNFL Lymphocytes 1.06 0.95 - 3.07 x10(9)/L 07/30/2023 5:26 PM MOLDER MACHINE CNFL Monocytes 0.61 0.26 - 0.81 x10(9)/L 07/30/2023 5:26 PM MOLDER MACHINE CNFL Eosinophils 0.20 0.03 - 0.48 x10(9)/L 07/30/2023 5:26 PM MOLDER MACHINE CNFL Basophils 0.06 0.01 - 0.08 x10(9)/L 07/30/2023 5:26 PM MOLDER MACHINE CNFL Blood (Blood, Venous) 07/30/2023 4:48 PM MOLDER MACHINE 07/30/2023 4:49 PM MOLDER MACHINE Kinsey Villatoro M.D. LAB BLOOD ADD-ON [facility] [address] [place] [address], [place] [address] * (ABNORMAL) Hemoglobin A1c (07/30/2023 4:48 PM MOLDER MACHINE) Hemoglobin A1c, B 6.9(H) 4.2 - 5.6 % 07/30/2023 5:10 PM MOLDER MACHINE CNFL Comment: Hemoglobin A1c values greater than or equal to 6.5 percent are diagnostic for diabetes mellitus. ??Diagnosis should be confirmed by repeat testing. ??In diabetic patients, HbA1c goals should be discussed with healthcare provider. Blood (Blood, Venous) 07/30/2023 4:48 PM MOLDER MACHINE 07/30/2023 4:49 PM MOLDER MACHINE Kinsey Villatoro M.D. LAB BLOOD ADD-ON [facility] [address] [place] [address], [place] CNFL [facility] in [address] [address] * Ferritin (07/30/2023 4:48 PM MOLDER MACHINE) Ferritin, S 21 11 - 328 mcg/L 07/31/2023 1:53 PM MOLDER MACHINE RDWG Comment: Biotin has been identified by the whipper as a potential interfering substance. Higher concentrations of biotin may be found in multivitamins, hair/nail supplements, and workout supplements. If the result does not match clinical observations, repeat testing after patient refrains from the use of supplements for at least 12 hours. Blood (Blood, Venous) 07/30/2023 4:48 PM MOLDER MACHINE 07/31/2023 1:21 PM MOLDER MACHINE Kinsey Villatoro M.D. LAB BLOOD ADD-ON [facility] [address] [place] [address], [facility] RDWG [facility] in [address] [phone] * (ABNORMAL) Comprehensive Metabolic Panel (07/30/2023 4:47 PM MOLDER MACHINE) Potassium, P 4.0 3.6 - 5.2 mmol/L 07/30/2023 5:11 PM MOLDER MACHINE CNFL Sodium, P 137 135 - 145 mmol/L 07/30/2023 5:11 PM MOLDER MACHINE CNFL Chloride, P 98 98 - 107 mmol/L 07/30/2023 5:11 PM MOLDER MACHINE CNFL Bicarbonate, P 28 22 - 29 mmol/L 07/30/2023 5:11 PM MOLDER MACHINE CNFL Anion Gap, P 11 7 - 15 07/30/2023 5:11 PM MOLDER MACHINE CNFL BUN (Blood Urea Nitrogen), P 15 6 - 21 mg/dL 07/30/2023 5:11 PM MOLDER MACHINE CNFL Creatinine 0.62 0.59 - 1.04 mg/dL 07/30/2023 5:11 PM MOLDER MACHINE CNFL Estimated GFR (eGFR) >90 >=60 mL/min/BS A 07/30/2023 5:11 PM MOLDER MACHINE CNFL Comment: Estimated GFR calculated using the 2020 CKD_EPI creatinine equation. Calcium, Total, P 8.5(L) 8.8 - 10.2 mg/dL 07/30/2023 5:11 PM MOLDER MACHINE CNFL Glucose, P 113 70 - 140 mg/dL 07/30/2023 5:11 PM MOLDER MACHINE CNFL Protein, Total, P 7.0 6.3 - 7.9 g/dL 07/30/2023 5:11 PM MOLDER MACHINE CNFL Albumin, P 4.1 3.5 - 5.0 g/dL 07/30/2023 5:11 PM MOLDER MACHINE CNFL Aspartate Aminotransferase (AST), P 42 8 - 43 U/L 07/30/2023 5:11 PM MOLDER MACHINE CNFL Alkaline Phosphatase, P 116(H) 35 - 104 U/L 07/30/2023 5:11 PM MOLDER MACHINE CNFL Alanine Aminotransferase (ALT), P 47(H) 7 - 45 U/L 07/30/2023 5:11 PM MOLDER MACHINE CNFL Bilirubin, Total, P <0.2 0.0 - 1.2 mg/dL 07/30/2023 5:11 PM MOLDER MACHINE CNFL Blood (Blood, Venous) 07/30/2023 4:47 PM MOLDER MACHINE 07/30/2023 4:49 PM MOLDER MACHINE Kinsey Villatoro M.D. LAB BLOOD ADD-ON [facility] [address] [place] [address], [facility] CNFL [facility] in [address] [address] * MM screening mammo BI-Outside Mammogram (07/14/2022 2:10 PM MOLDER MACHINE) Narrative IIMS - 08/05/2023 1:25 PM MOLDER MACHINE This order has been created and auto-finalized [...] Advance Directives For more information, please contact: [phone] * Full Code (Latest Code Status on File) Date Activated Date Inactivated Comments 01/11/2018 4:46 PM 01/13/2018 6:25 PM Question Answer Comments Full Code: Discussed * Full Code Date Activated Date Inactivated Comments 05/29/2017 12:36 AM 05/29/2017 6:55 PM Question Answer Comments Full Code: Discussed Care Teams Optical Manufacturing Technician Relationship Specialty Start Date End Date Elsewhere, Pcp PCP - General Internal Medicine 08/18/23
--- OUTSIDE RECORDS SUMMARY | 2023-10-27 17:10 | XMS_ITS | Encounter Summary ---
Author Organization [facility] Address [address] [place] [address] Care Team Providers Care Truck Body Repairer Name Role Phone Kinsey Villatoro M.D. Primary Care Provider +1- [phone] Reason for Referral * Outpatient (Routine) - Authorized Specialty Diagnoses / Procedures Referred By Contac t Referred To Contact Video Medicine Diagnoses Atrial Fibrillation Longstanding Persistent (HCC) Shelter (Current) Anticoagulant Treatment Stroke Cerebrovascular Accident Personal History Monitoring For Therapeutic Drug Therapy Kinsey Villatoro M.D. [address] [place] [phone] [facility] Referral ID Status Reason Start Date Expiration Date V isits Requested Visits Authorized [id number] Authorized 07/31/2023 01/29/2025 300 300 * Outpatient (Routine) - Authorized Specialty Diagnoses / Procedures Referred By Contac t Referred To Contact Anticoagulation Kinsey Villatoro M.D. [address] [place] [phone] [facility] Referral ID Status Reason Start Date Expiration Date V isits Requested Visits Authorized [id number] Authorized 07/31/2023 01/29/2025 300 300 Reason for Visit * Reason Onset Date Comments Anticoagulation 07/31/2023 New Enrollment Encounter Details Date Type Department Care Team (Latest Contact Info) Description 07/31/2023 Clinical Communication Department of Anticoagulation in [place], [place] [address] [place] [address] Gasper Aguilar Celia Anticoagulation (New Enrollment ) Social History Tobacco Use Types Packs/Day [...] this encounter Patient Instructions * Patient Instructions* Feng Flores R.N. - 07/31/2023 1:31 PM LSW URGENT - ANTICOAGULATION ORDERS For today's INR result, future warfarin dosing and next INR date please see the attached anticoagulation visit summary. Bridging with Enoxaparin needed: No. Warfarin is a daily dose taken in the evening. This dose is reflected in each date on the attached warfarin calendar Authorized by Feng Flores R.N. per RN protocol Authorized by Kinsey Villatoro M.D. Your Next INR Check: August 05. If you have sent the faxed assessment form and have not received Warfarin dosing instructions by 2 pm or have questions about these instructions, please contact the Anticoagulation Program for assistance at [phone], Thursday-Thursday from 7:30 am to 4:30 pm. . When To Contact Your Health Care [...] if you start any herbal or other uqxe-hfe-kizljta product (check with your doctor, a nurse, [...] encounter Miscellaneous Notes * Telephone Encounter - Alicia Pinzon - 08/03/2023 1:45 PM CST WIND PROJECT MANAGER: [place] PHONE NUMBER: [phone] INFO REQUESTED: new admit Attached: 07/30/23 Office notes INSTRUCTIONS: Fax information to [phone] * Telephone Encounter - Alicia Pinzon - 08/03/2023 1:29 PM CST Contacted patient today and welcomed them to the Primary Care Anticoagulation Program. Reviewed that the patient has enough warfarin pills and injectable heparin (if applicable) to take until next INR lab appointment. Discussed INR testing. Patient will monitor INR via venipuncture because closer to [place] Discussed face to face follow-up via video visit. Patient declined video visit due to no portal. They were given the designated phone number for Primary Care Anticoagulation Program at [phone] from 7:30 am to 4:30 pm. Thursday-Thursday . Patient verbalized understanding of needing to call the Anticoagulation Program for warfarin dosing at the scheduled time for their nurse visit, as indicated on their Patient Appointment Guide (PAG). Discussed with patient the option of leaving a detailed message on patient???s voicemail. Patient understands permission for anticoagulation staff to leave a detailed message will not unless patient asks anticoagulation staff to discontinue leaving a detailed message on voicemail. Patient provided permission for anticoagulation staff to leave a detailed message on voicemail. Education: Offered to patient to attend the Warfarin: Managing Your Medication Patient Education Class. Patient declined attending today but may attend in the future. Order is available for patient to schedule class when they are ready. Patient Education packet for patients new to warfarin was mailed to the patient today. * Telephone Encounter - Alicia Pinzon - 08/03/2023 11:21 AM CST JAIL nurse states that pt sets up appointments. * Telephone Encounter - Gasper Aguilar - 07/31/2023 1:59 PM CST Left Message for Welcome Call * Addendum Note - Feng Flores, R.N. - 07/31/2023 1:31 PM CSTAddended by: FENG FLORES on: 07/31/2023 01:31 PM Modules accepted: Orders * Telephone Encounter - Gasper Aguilar - 07/31/2023 8:54 AM CST New Primary Care Anticoagulation referral order received. Has the patient previously been enrolled in the Anticoagulation Program? No, Patient has not been previously enrolled in the Anticoagulation Program Does the patient have a Primary Care Provider (PCP) in the [facility] region and have they received care from a Primary Care provider within the last 3 years? OR does the patient have an appointment to establish care? Yes. Did the patient dismiss/discharge from the hospital? No, referral is from facility where patient resides. Is the enrollment order from PCP? Yes. Are there bolded items/changes in the enrollment order? No, this is a New enrollment Is CCM active or in process? No. Is the next PT/INR date noted or scheduled within 4 days? No, INR date not noted or scheduled. Are these medications on the patient's medication list? (Warfarin/Jantoven, Enoxaparin (Lovenox), Heparin)? No, RN please follow up with the patient. 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) Anticoagulant Treatment Stroke Cerebrovascular Accident Personal History Monitoring For Therapeutic Drug Therapy 300 Occurrences starting 07/31/2023 until 07/30/2025 documented as of this encounter Procedures Procedure Name Priority Date/Time Associated Diagnosis Comments PROTHROMBIN TIME (PT), P Routine 07/09/2023 documented in this encounter Results * Prothrombin Time (PT) (07/09/2023) EXT INR 2.30 OTHER (SPE CIFY IN PHARMACOLOGY PROFESSOR) Comment:Outside lab Blood (Blood, Venous) Narrative Resulting Agency Comment Historical Provider LAB BLOOD ADD-ON OTHER (SPECIFY IN PHARMACOLOGY PROFESSOR) N/A documented in this encounter Visit Diagnoses Diagnosis Atrial Fibrillation Longstanding Persistent (HCC)- Primary Shelter (Current) Anticoagulant Treatment Stroke Cerebrovascular Accident Personal History Monitoring For Therapeutic Drug Therapy documented in this encounter Additional Health Concerns Assessment Noted Time PHQ-9 Depression Total Score: 7 07/30/19 24 4:37 PM LSW documented as of this encounter Care Teams Truck Body Repairer Relationship Specialty Start Date End Date Kinsey Villatoro M.D. [address] [phone] PCP - General Family Medicine 07/28/23 08/17/23 documented as of this encounter
--- OUTSIDE RECORDS SUMMARY | 2023-10-27 17:10 | XMS_ITS | Encounter Summary ---
Author Organization [facility] Address [address] [place] [address] Care Team Providers Care Dry Cell Tester Name Role Phone Elsewhere, Pcp Primary Care Provider Unavailabl e Reason for Visit * Reason Onset Date Comments Form Review 08/19/2023 [facility] - orders needed Encounter Details Date Type Department Care Team (Latest Contact Info) Description 08/19/2023 Clinical Communication Department of Family Medicine, [facility], in [address] [phone] Kinsey Villatoro M.D. [address] [place] [phone] Form Review ([place] - orders needed ) Social History Tobacco Use Types Packs/Day [...] encounter Miscellaneous Notes * Telephone Encounter - Grace Hinson - 08/19/2023 3:05 PM CDT Form completed by the provider. Faxed back and sent to scanning. * Telephone Encounter - Grace Hinson - 08/19/2023 11:34 AM CDT Form emailed to Dr. Villatoro for review/signature COMMERCIAL OR INSTITUTIONAL CLEANER: Berny PHONE NUMBER: INFO REQUESTED: Orders INSTRUCTIONS: Fax back to [phone] documented in this encounter Plan of Treatment Not on file documented as of this encounter Visit Diagnoses Not on filedocumented in this encounter Additional Health Concerns Assessment Noted Time PHQ-9 Depression Total Score: 7 07/30/19 4:37 PM AIR CONDITIONING ENGINEER documented as of this encounter Care Teams Dry Cell Tester Relationship Specialty Start Date End Date Elsewhere, Pcp PCP - General Internal Medicine 08/18/23 documented as of this encounter
--- OUTSIDE RECORDS SUMMARY | 2023-10-27 17:10 | XMS_ITS | Encounter Summary ---
Author Organization [facility] Address [address] [place] [address] Care Team Providers Care Gift Shop Assistant Name Role Phone Kinsey Villatoro M.D. Primary Care Provider +1- [phone] Reason for Referral * Medication Prior Authorization - Authorized Specialty Diagnoses / Procedures Referred By Katina t Referred To Contact Kinsey Villatoro M.D. [address] [place] [phone] Referral ID Status Reason Start Date Expiration Date V isits Requested Visits Authorized [id number] Authorized 08/23/2023 05/31/2024 1 1 Encounter Details Date Type Department Care Team (Late st Contact Info) Description 08/11/2023 Clinical Communication Department of Family Medicine, [facility], in [address] [phone] Kinsey Villatoro M.D. [address] [place] [phone] Social History Tobacco Use Types Packs/Day Years [...] Miscellaneous Notes * Telephone Encounter - Gasper Aguilar - 08/12/2023 9:25 AM CDT Patient has been rescheduled for 3-14 Per message below. documented in this encounter Plan of Treatment Not on file documented as of this encounter Visit Diagnoses Not on filedocumented in this encounter Additional Health Concerns Assessment Noted Time PHQ-9 Depression Total Score: 7 07/30/19 24 4:37 PM TIE MAN documented as of this encounter Care Teams Gift Shop Assistant Relationship Specialty Start Date End Date Kinsey Villatoro M.D. [address] [place] [phone] PCP - General Family Medicine 07/28/23 08/17/23 documented as of this encounter
--- OUTSIDE RECORDS SUMMARY | 2023-10-27 17:10 | XMS_ITS | Encounter Summary ---
Author Organization [facility] Address [address] [place] [address] Care Team Providers Care Burial Vault Setter Name Role Phone Kinsey Villatoro M.D. Primary Care Provider +1- [phone] Reason for Visit * Outpatient (Routine) - Authorized Specialty Diagnoses / Procedures Referred By Contac t Referred To Contact Anticoagulation Kinsey Villatoro M.D. [phone] [place] [phone] [facility] Referral ID Status Reason Start Date Expiration Date V isits Requested Visits Authorized [id number] Authorized 07/31/2023 01/29/2025 300 300 Encounter Details Date Type Department Care Team (Latest Contact Info) Description 08/07/2023 3:00 PM PARALEGAL Anticoagulation Visit Department of Anticoagulation in [place], [place] [address] [place] [address] Kinsey Villatoro M.D. [address] [place] [phone] Atrial Fibrillation Longstanding Persistent (HCC) (Primary Dx); Atg Architect (Current) Anticoagulant Treatment; Stroke Cerebrovascular Accident Personal History; Monitoring For Therapeutic Drug Therapy Social History Tobacco Use Types Packs/Day Years [...] this encounter Patient Instructions * Patient Instructions* Dee Calderon R.N. - 08/07/2023 3:00 PM PARALEGAL URGENT - ANTICOAGULATION ORDERS For today's INR result, future warfarin dosing and next INR date please see the attached anticoagulation visit summary. Bridging with Enoxaparin needed: No. Warfarin is a daily dose taken in the evening. This dose is reflected in each date on the attached warfarin calendar Authorized by Dee Calderon R.N. per RN protocol Authorized by Kinsey Villatoro M.D. Your Next INR Check: 08/12/23 . Faxed assessment form needs to be received by the Anticoagulation Program by 11 am on theday of INR draw to ensure same day dosing. If assessment has not been received by this time you mayneed to consult your animal control specialist provider for Warfarin dosing. If you have sent the faxed assessment form and have not received Warfarin dosing instructions by 2 pm or have questions about these instructions, please contact the Anticoagulation Program for assistance at [phone], Thursday-Thursday from 7:30 am to 4:30 pm. [...] if you start any herbal or other lpni-khd-kicsuwb product (check with your doctor, a nurse, or pharmacist). If you change your diet significantly. If you decide to stop or start using tobacco or alcohol. If you notice unusual bruising or bleeding. If you notice dark, tarry, or bright red stools or blood in your urine. If you have a painful and swollen calf. LEGAL documented in this encounter Progress Notes * Dee Calderon R.N. - 08/07/2023 3:00 PM CST Warfarin Maintenance Nursing Protocol Goal Range 2.0-3.0 (version approved 07/2021) Visit Type: Telephone Primary reason for visit: Routine f/u OR f/u per previous visit recommendations Information [facility] by:[facility] result: no INR Goal range: 2.0-3.0 Inclusion Criteria: All inclusion criteria met. Proceeded to exclusion criteria. Exclusion Criteria: Section 1: No Section 1 exclusion criteria, proceeded to Section 2. Section 2: No Section 2 exclusion criteria, proceeded to screening criteria. Screening Criteria: All screening criteria negative. Testing interval extension evaluation: INR in range today? No. Patient is not eligible for testing interval extension. Proceeded to maintenance warfarin dosing and follow-up. No INR today Additional Info: Patient states that she is unable to get the clinic today for INR- States that she needs 2 full days to get transportation lined up. She is requesting Thursday INR check. MACHINE III COREMAKER anticoagulation program was discussed as a possibility in the future, if she establishes care there Previous INR was therapeutic. Today???s INR is none . Dosing and follow up recommendation: Protocol does not apply based on positive exclusion criteria indicated above stating consult required. Consulted Anticoagulation [facility] for plan. Currently bridging: No- No INR - enrollment visit rescheduled per patient request and inability to obtain INR today Additional dosing or follow-up information: None. Provider consulted: Linda Reyes -Anticoagulation [facility] See above Pt is on injectable anticoagulant: No. Plan used: Consult. See Anticoagulation Track Calendar for dosing and plan details. Anticoagulation Visit Summary: Today's visit faxed for continuity of care to: [facility] Total time spent with patient: N/A LEGAL documented in this encounter Plan of Treatment Not on file documented as of this encounter Visit Diagnoses Diagnosis Atrial Fibrillation Longstanding Persistent (HCC)- Primary Atg Architect (Current) Anticoagulant Treatment Stroke Cerebrovascular Accident Personal History Monitoring For Therapeutic Drug Therapy documented in this encounter Additional Health Concerns Assessment Noted Time PHQ-9 Depression Total Score: 7 07/30/19 24 4:37 PM PARALEGAL documented as of this encounter Care Teams Burial Vault Setter Relationship Specialty Start Date End Date Kinsey Villatoro M.D. [address] [place] [phone] PCP - General Family Medicine 07/28/23 08/17/23 documented as of this encounter
--- OUTSIDE RECORDS SUMMARY | 2023-10-27 17:10 | XMS_ITS | Encounter Summary ---
Author Organization [facility] Address [address] [place] [address] Care Team Providers Care Cell Attendant Helper Name Role Phone Kinsey Villatoro M.D. Primary Care Provider +1- [phone] Encounter Details Date Type Department Care Team (Latest Contact Info) Description 08/13/2023 9:14 AM CDT - 08/13/2023 11:59 PM CDT Hospital Encounter Department of Laboratory Medicine in [address] [phone] Kinsey Villatoro M.D. [address] [place] [phone] Atrial Fibrillation Longstanding Persistent (HCC) Discharge Disposition: Home or Self Care Social [...] on file documented as of this encounter Medications at Time of Discharge Medication Sig Dispensed Refills Start Date End Date acetaminophen (TYLENOL) 500 mg tablet Take 1,000 mg by mouth 4 (four) times a day. Take at 7:00 am, 12:00 pm, 5:00 pm, 10:00 pm kyrgc-m-heytlfwljpwdm 300 unit capsule Take 300 Units by [...] by mouth daily. 90 tablet 3 08/10/2023 dextroamphetamine-amp hetamine (ADDERALL) 10 mg tablet Take 10 mg by mouth 2 (two) times a day. diaper,brief,adult,di sposable misc Use daily as needed for incontinence. [...] day. Take at 7:00 am, 4:00 pm ketoconazole (NIZORAL) 2 % shampoo WASH TO AFFECTED AREA ON SCALP AND CHEST 3 TIMES WEEKLY LATHER AND LET SIT FOR SEVERAL MINUTES BEFORE RINSING 11/12/2021 lancets [facility] One touch [employer] lancets 33g Dispense item covered by pt [...] day. 180 tablet 08/13/2023 miscellaneous medical supply [facility] Length: calf Strength: 16-20 mmHg Circumference in [...] nausea or vomiting. 10 tablet 08/13/2023 ONETOUCH DELIMMANUEL LANCETS 33 gauge misc TEST 2 TIMES [...] mg by mouth at bedtime. 1 04/14/2017 HYDROmorphone (DILAUDID) 2 mg tabletIndications:Chr onic Pain/Nonacute Pain Take 1 tablet (2 mg total) by mouth every 6 (six) hours as needed for pain for up to 10 days Indication: Chronic Pain/Nonacute Pain. 40 tablet 08/07/2023 08/18/2023 Jantoven 3 mg tablet Please take as directed by your Anticoagulation Clinic. 8 tablet 08/13/2023 08/20/2023 documented as of this encounter Plan of Treatment Not on file documented as of this encounter Procedures Procedure Name Priority Date/Time Associated Diagnosis Comments INR REFLEX, POCT, B Routine 08/13/2023 9:24 AM CDT Atrial Fibrillation Longstanding Persistent (HCC) documented in this encounter Results * INR Reflex, POCT, Blood (08/13/2023 9:24 AM CDT) INR Reflex, POCT, B 1.7 08/13/2023 9:24 AM CDT [facility] Comment: ----ADDITIONAL INFORMATION---- Standard intensity warfarin therapeutic range: 2.0 to 3.0 ?? High intensity warfarin therapeutic range: 2.5 to 3.5 Blood (Blood, Capillary) 08/13/2023 9:24 AM CDT 08/13/2023 9:24 AM CDT Kinsey Villatoro M.D. 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 [address] [place] [phone] PCP - General Family Medicine 07/28/23 08/17/23 documented as of this encounter
--- OUTSIDE RECORDS SUMMARY | 2023-10-27 17:10 | XMS_ITS | Encounter Summary ---
Author Organization [facility] Address [address] [place] [address] Care Team Providers Care Car Pincher Name Role Phone Osman Villatoro M.D. Primary Care Provider +1- [phone] Encounter Details Date Type Department Care Team (Late st Contact Info) Description 08/06/2023 Clinical Communication Department of Family Medicine, [facility], in [address] [phone] Osman Villatoro M.D. [address] [place] [phone] Social History Tobacco Use Types Packs/Day Years [...] as of this encounter Miscellaneous Notes * Addendum Note - Osman Villatoro M.D. - 08/10/2023 4:28 PM CDTAddended by: OSMAN VILLATORO on: 08/10/2023 04:28 PM Modules accepted: Orders documented in this encounter Plan of Treatment Not on file documented as of this encounter Visit Diagnoses Not on filedocumented in this encounter Additional Health Concerns Assessment Noted Time PHQ-9 Depression Total Score: 7 07/30/19 4:37 PM ELECTRIC SERVICEMAN documented as of this encounter Care Teams Car Pincher Relationship Specialty Start Date End Date Osman Villatoro M.D. [address] [place] [phone] PCP - General Family Medicine 07/28/23 08/17/23 documented as of this encounter
--- OUTSIDE RECORDS SUMMARY | 2023-10-27 17:10 | XMS_ITS | Encounter Summary ---
Author Organization [facility] Address [address] [place] [address] Care Team Providers Care Tire Mold Tester Name Role Phone Kinsey Villatoro M.D. Primary Care Provider +1- [phone] Encounter Details Date Type Department Care Team (Latest Contact Info) Description 08/12/2023 Orders Only Department of Anticoagulation in [place], [place] [address] [place] [address] Carolina Ace, R.N. [address] [place] [address] Atrial Fibrillation Longstanding Persistent (HCC) (Primary Dx) Social History Tobacco Use Types Packs/Day Years [...] on file documented as of this encounter Results * INR Reflex, POCT, Blood (08/13/2023 9:24 AM CDT) INR Reflex, POCT, B 1.7 08/13/2023 9:24 AM CDT [facility] Comment: ----ADDITIONAL INFORMATION---- Standard intensity warfarin therapeutic range: 2.0 to 3.0 ?? High intensity warfarin therapeutic range: 2.5 to 3.5 Blood (Blood, Capillary) 08/13/2023 9:24 AM CDT 08/13/2023 9:24 AM CDT Kinsey Villatoro M.D. LAB POCT ORDERABLE S - DEVICE [facility] [address] [place] [address], [facility] [address] [address] documented in this encounter Visit Diagnoses Diagnosis Atrial Fibrillation Longstanding Persistent (HCC)- Primary documented in this encounter Additional Health Concerns Assessment Noted Time PHQ-9 Depression Total Score: 7 07/30/19 24 4:37 PM PARTRIDGE FARMER documented as of this encounter Care Teams Tire Mold Tester Relationship Specialty Start Date End Date Kinsey Villatoro M.D. [address] [place] [phone] PCP - General Family Medicine 07/28/23 08/17/23 documented as of this encounter
--- OUTSIDE RECORDS SUMMARY | 2023-10-27 17:10 | XMS_ITS | Encounter Summary ---
Author Organization [facility] Address [address] [place] [address] Care Team Providers Care Roll Former Name Role Phone Kinsey Villatoro M.D. Primary Care Provider +1- [phone] Encounter Details Date Type Department Care Team (Late st Contact Info) Description 07/31/2023 Clinical Communication Department of Family Medicine, [facility], in [address] [phone] Kinsey Villatoro M.D. [address] [place] [phone] Social History Tobacco Use Types Packs/Day Years [...] Total Score: 7 07/30/19 24 4:37 PM MEDICAL REIMBURSEMENT SPECIALIST documented as of this encounter Care Teams Roll Former Relationship Specialty Start Date End Date Kinsey Villatoro M.D. [address] [phone] PCP - General Family Medicine 07/28/23 08/17/23 documented as of this encounter
--- OUTSIDE RECORDS SUMMARY | 2023-10-27 17:10 | XMS_ITS | Encounter Summary ---
Author Organization [facility] Address [address] [place] [address] Care Team Providers Care Cold Header Name Role Phone Kinsey Villatoro M.D. Primary Care Provider +1- [phone] Reason for Visit * Reason Onset Date Comments Order Request 08/07/2023 Encounter Details Date Type Department Care Team (Late st Contact Info) Description 08/07/2023 Clinical Communication Department of Family Medicine, [facility], in [address] [phone] Kinsey Villatoro M.D. [address] [place] [phone] Order Request Social History Tobacco Use Types Packs/Day [...] Total Score: 7 07/30/19 24 4:37 PM SITE PROJECT MANAGER documented as of this encounter Care Teams Cold Header Relationship Specialty Start Date End Date Kinsey Villatoro M.D. [address] [phone] PCP - General Family Medicine 07/28/23 08/17/23 documented as of this encounter
--- OUTSIDE RECORDS SUMMARY | 2023-10-27 17:10 | XMS_ITS | Encounter Summary ---
Author Organization [facility] Address [address] [place] [address] Care Team Providers Care City Mail Carrier Name Role Phone Kinsey Villatoro M.D. Primary Care Provider +1- [phone] Reason for Visit * Reason Onset Date Comments New Med Request 08/04/2023 Encounter Details Date Type Department Care Team (Latest Contact Info) Description 08/04/2023 Clinical Communication Department of Family Medicine, [facility], in [address] [phone] Kinsey Villatoro M.D. [address] [place] [phone] New Med Request Social History Tobacco Use Types Packs/Day [...] Total Score: 7 07/30/19 24 4:37 PM BILLING CLINICIAN documented as of this encounter Care Teams City Mail Carrier Relationship Specialty Start Date End Date Kinsey Villatoro M.D. [address] [phone] PCP - General Family Medicine 07/28/23 08/17/23 documented as of this encounter
--- OUTSIDE RECORDS SUMMARY | 2023-10-27 17:10 | XMS_ITS | Encounter Summary ---
Author Organization [facility] Address [address] [place] [address] Care Team Providers Care Elevator Operator Name Role Phone Elsewhere, Pcp Primary Care Provider Unavailabl e Reason for Visit * Reason Comments Med Refill Encounter Details Date Type Department Care Team (Late st Contact Info) Description 08/06/2023 Refill Department of Family Medicine, [facility], in [address] [phone] Kinsey Villatoro M.D. [address] [place] [phone] Med Refill Social History Tobacco Use Types [...] encounter Miscellaneous Notes * Telephone Encounter - Sima Jenkins, L.P.N. - 08/10/2023 9:13 AM CDT Controlled substance renewal for Adderall 20 mg: Patient verified she is taking 1/2 tablet daily. Patient has not stopped the Adderall yet and it requesting a refill. Patient noted her new Psychiatrist will need to review her records before prescribing alternative medication. No nursing concerns Renewal is pended how patient reported taking. Date last renewed (start date): 07/14/23 (15 tablets) Last provider visit: 07/30/23 Next provider visit due: appointment is scheduled 08/13/23 * Telephone Encounter - Sima Jenkins L.P.NStephany - 08/10/2023 9:02 AM CDT Per 07/30/23 progress note PCP recommended to discontinue the Adderall and discuss alternative treatment option with new Psychiatrist. * Telephone Encounter - Jose Chun - 08/06/2023 11:13 AM CST Images from the original note were not included. Nurse review: Med Refill Team is unable to forward request to provider; Controlled Substance and Discrepancy; Request is not on the current med list. Primary Provider: Kinsey Villatoro M.D. MOLDER documented in this encounter Plan of Treatment Not on file documented as of this encounter Visit Diagnoses Diagnosis Attention Deficit Hyperactive Disorder- Primary documented in this encounter Additional Health Concerns Assessment Noted Time PHQ-9 Depression Total Score: 7 07/30/19 24 4:37 PM SOLE MOLDER documented as of this encounter Care Teams Elevator Operator Relationship Specialty Start Date End Date Elsewhere, Pcp PCP - General Internal Medicine 08/18/23 documented as of this encounter
--- OUTSIDE RECORDS SUMMARY | 2023-10-27 17:10 | XMS_ITS | Encounter Summary ---
Author Organization [facility] Address [address] [place] [address] Care Team Providers Care Mechanical Engineering Lecturer Name Role Phone Elsewhere, Pcp Primary Care Provider Unavailabl e Reason for Visit * Reason Onset Date Comments Form Review 08/10/2023 Gift cards - [place] ual wellness, A1c test Encounter Details Date Type Department Care Team (Latest Contact Info) Description 08/10/2023 Clinical Communication Department of Family Medicine, [facility], in [address] [phone] Kinsey Villatoro M.D. [address] [place] [phone] Form Review (Gift cards - annual wellness, A1c test) Social History Tobacco Use Types Packs/Day Years [...] encounter Miscellaneous Notes * Telephone Encounter - Fani Schwartz - 08/10/2023 2:41 PM CDT Form faxed back to facility and sent for scanning. * Telephone Encounter - Fani Schwartz - 08/10/2023 10:43 AM CDT Form was emailed to Dr. Villatoro for electronic review/signature. WATER QUALITY SPECIALIST: Brandee Florentinotracichrista (Patient) PHONE NUMBER: [phone] INFO REQUESTED: gift cards - annual wellness, A1c test INSTRUCTIONS: Fax information to [phone] documented in this encounter Plan of Treatment Not on file documented as of this encounter Visit Diagnoses Not on filedocumented in this encounter Additional Health Concerns Assessment Noted Time PHQ-9 Depression Total Score: 7 07/30/19 24 4:37 PM ACID WASH OPERATOR documented as of this encounter Care Teams Mechanical Engineering Lecturer Relationship Specialty Start Date End Date Elsewhere, Pcp PCP - General Internal Medicine 08/18/23 documented as of this encounter
--- OUTSIDE RECORDS SUMMARY | 2023-10-27 17:10 | XMS_ITS | Encounter Summary ---
Author Organization [facility] Address [address] [place] [address] Care Team Providers Care Sand Control Worker Name Role Phone Kinsey Villatoro M.D. Primary Care Provider +1- [phone] Encounter Details Date Type Department Care Team (Late st Contact Info) Description 08/06/2023 Clinical Communication Department of Family Medicine, [facility], in [address] [phone] Kinsey Villatoro M.D. [address] [place] [address] [phone] Social History Tobacco Use Types Packs/Day Years [...] Encounter - Sima Jenkins, L.P.N. - 08/10/2023 9:36 AM CDT Patient was notified she was dispensed the #40 tablets on 08/07/23. Patient states she does not handle her own medications. Patient is concerned about running out of the pain medication. She does have enough for 10 days and was instructed to discuss at upcoming appointment. documented in this encounter Plan of Treatment Not on file documented as of this encounter Visit Diagnoses Not on filedocumented in this encounter Additional Health Concerns Assessment Noted Time PHQ-9 Depression Total Score: 7 07/30/19 24 4:37 PM MARKETING STRATEGIST documented as of this encounter Care Teams Sand Control Worker Relationship Specialty Start Date End Date Kinsey Villatoro M.D. [address] [place] [phone] PCP - General Family Medicine 07/28/23 08/17/23 documented as of this encounter
--- OUTSIDE RECORDS SUMMARY | 2023-10-27 17:10 | XMS_ITS | Encounter Summary ---
Author Organization [facility] Address [address] [place] [address] Care Team Providers Care Support Team Member Name Role Phone Elsewhere, Pcp Primary Care Provider Unavailabl e Encounter Details Date Type Department Care Team (Late st Contact Info) Description 08/14/2023 Clinical Communication Department of Family Medicine, [facility], in [address] [phone] Kinsey Villatoro M.D. [address] [place] [phone] Social History Tobacco Use Types Packs/Day Years [...] as of this encounter Visit Diagnoses Diagnosis Incontinence Urinary- Primary documented in this encounter Additional Health Concerns Assessment Noted Time PHQ-9 Depression Total Score: 7 07/30/19 24 4:37 PM PLANT PROTECTION SUPERVISOR documented as of this encounter Care Teams Support Team Member Relationship Specialty Start Date End Date Elsewhere, Pcp PCP - General Internal Medicine 08/18/23 documented as of this encounter
--- OUTSIDE RECORDS SUMMARY | 2023-10-27 17:10 | XMS_ITS | Encounter Summary ---
Author Organization [facility] Address [address] [place] [address] Care Team Providers Care Trauma Coordinator Name Role Phone Kinsey Villatoro M.D. Primary Care Provider +1- [phone] Reason for Visit * Reason Comments Med Management Hydromorphone refill s * Appointment Request (Routine) - Closed Specialty Diagnoses / Procedures Referred By Katina ribera Referred To Contact Family Medicine Referral ID Status Reason Start Date Expiration Date Visits Re quested Visits Authorized [id number] Closed 07/28/2023 07/27/2024 1 1 Encounter Details Date Type Department Care Team (Latest Contact Info) Description 08/13/2023 8:30 AM CDT Comprehensive Visit Department of Family Medicine, [facility], in [address] [phone] Kinsey Villatoro M.D. [address] [place] [phone] Deficiency Iron (Primary Dx); Chronic Pain Syndrome; Chronic Diastolic (Congestive) Heart Failure (HCC); Asthma Mild Persistent (HCC); Rhinitis Allergic Discharge Disposition: Home or Self Care Social [...] Sign Reading Time Taken Comments Blood Pressure 145/92 08/13/2023 8:39 AM CDT Pulse 98 08/13/2023 8:39 AM CDT Temperature 36.5 ??C (97.7 ??F) 08/13/2023 8:34 AM CD T Respiratory Rate - - Oxygen Saturation 97% 08/13/2023 8:39 AM CDT Inhaled Oxygen Concentration - - Weight 91.8 kg (202 lb 6.1 oz) 08/13/2023 8:39 A M CDT Height - - Body Mass Index 37.02 07/30/2023 2:52 PM PROGRAM MANAGEMENT PROFESSIONAL documented in this encounter Progress Notes * Kinsey Villatoro M.D. - 08/13/2023 8:30 AM CDT SUBJECTIVE REASON FOR VISIT Med Management (Hydromorphone refills ) HISTORY OF PRESENT ILLNESS Brandee Brown is a 63 y.o. female patient who presents to the clinic today for above concern. Brandee is here today for medication refills. She does not have any concerns or symptoms to discuss today. OBJECTIVE VITAL SIGNS Vitals reviewed as below: BP (!) 145/92 (BP Location: Left arm, Patient Position: Sitting, Cuff Size: Regular) Pulse 98 Temp 36.5 ??C (Temporal) Wt 91.8 kg SpO2 97% BMI 37.02 kg/m?? PHYSICAL EXAMINATION Constitutional General: She is not in acute distress. Appearance: Normal appearance. Pulmonary Effort: Pulmonary effort is normal. Musculoskeletal Right lower leg: No edema. Left lower leg: No edema. Neurological Mental Status: She is alert. Mental status is at baseline. Psychiatric Mood and Affect: Mood normal. Behavior: Behavior normal. ASSESSMENT / PLAN #1 Deficiency Iron Labs consistent with iron deficiency anemia. Goal ferritin >75 for comorbid restless legs syndrome. Iron infusion ordered with repeat iron studies 12 weeks following her infusion. #2 Chronic Pain Syndrome Please see H&P dated 07/30/23. I continue to have concerns about the safety of her medication regimen. It is still her intention to establish with a new primary care physician. I am willing to provide short-term prescriptions to bridge this transition. #3 Chronic Diastolic (Congestive) Heart Failure (HCC) She has both furosemide and torsemide on her medication list. States she is only taking torsemide. She appears euvolemic. #4 Asthma Mild Persistent (HCC) No acute concerns. Albuterol refilled. #5 Rhinitis Allergic Loratadine refilled. Kinsey Villatoro M.D. documented in this encounter Plan of Treatment Not on file documented as of this encounter Visit Diagnoses Diagnosis Deficiency Iron- Primary Chronic Pain Syndrome Chronic Diastolic (Congestive) Heart Failure (HCC) Asthma Mild Persistent (HCC) Rhinitis Allergic documented in this encounter Additional Health Concerns Assessment Noted Time PHQ-9 Depression Total Score: 7 07/30/19 24 4:37 PM PROGRAM MANAGEMENT PROFESSIONAL documented as of this encounter Care Teams Trauma Coordinator Relationship Specialty Start Date End Date Kinsey Villatoro M.D. [address] [place] [phone] PCP - General Family Medicine 07/28/23 08/17/23 documented as of this encounter
--- OUTSIDE RECORDS SUMMARY | 2023-10-27 17:10 | XMS_ITS | Encounter Summary ---
Author Organization [facility] Address [address] [place] [address] Care Team Providers Care Cigar Head Perforator Name Role Phone Kinsey Villatoro M.D. Primary Care Provider +1- [phone] Reason for Visit * Reason Onset Date Comments Form Review 08/12/2023 [employer] armendariz annual order Encounter Details Date Type Department Care Team (Latest Contact Info) Description 08/12/2023 Clinical Communication Department of Family Medicine, [facility], in [address] [phone] Kinsey Villatoro M.D. [address] [place] [phone] Form Review ([employer] [place] annual order ) Social History Tobacco Use Types Packs/Day [...] encounter Miscellaneous Notes * Telephone Encounter - Aleida Shook - 08/13/2023 1:35 PM CDT Form completed and faxed to listed facility. Copy sent to scanning. * Telephone Encounter - Marianne Sanchez - 08/12/2023 8:45 AM CDT Form was emailed to Dr. Shauna medina for electronic review/signature. MANAGER RAIL: Marc Bethany PHONE NUMBER: [phone] INFO REQUESTED: annual order INSTRUCTIONS: Fax information to [phone] documented in this encounter Plan of Treatment Not on file documented as of this encounter Visit Diagnoses Not on filedocumented in this encounter Additional Health Concerns Assessment Noted Time PHQ-9 Depression Total Score: 7 07/30/19 24 4:37 PM SHELLFISH GROWER documented as of this encounter Care Teams Cigar Head Perforator Relationship Specialty Start Date End Date Kinsey Villatoro M.D. [address] [place] [phone] PCP - General Family Medicine 07/28/23 08/17/23 documented as of this encounter
--- OUTSIDE RECORDS SUMMARY | 2023-10-27 17:10 | XMS_ITS | Encounter Summary ---
Author Organization [facility] Address [address] [place] [address] Care Team Providers Care Vegetable Worker Name Role Phone Elsewhere, Pcp Primary Care Provider Unavailabl e Reason for Visit * Reason Comments Med Refill Encounter Details Date Type Department Care Team (Late st Contact Info) Description 08/17/2023 Refill Department of Family Medicine, [facility], in [address] [phone] Kinsey Villatoro M.D. [address] [place] [phone] Med Refill Social History Tobacco Use Types [...] Total Score: 7 07/30/19 24 4:37 PM PROCESS CHEMIST documented as of this encounter Care Teams Vegetable Worker Relationship Specialty Start Date End Date Elsewhere, Pcp PCP - General Internal Medicine 08/18/23 documented as of this encounter
--- OUTSIDE RECORDS SUMMARY | 2023-10-27 17:10 | XMS_ITS | Encounter Summary ---
Author Organization [facility] Address [address] [place] [address] Care Team Providers Care Head Of Sales Promotion Name Role Phone Elsewhere, Pcp Primary Care Provider Unavailabl e Reason for Visit * Outpatient (Routine) - Authorized Specialty Diagnoses / Procedures Referred By Contac t Referred To Contact Anticoagulation Kinsey Villatoro M.D. 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 - 08/13/2023 1:30 PM CDT URGENT - ANTICOAGULATION ORDERS For today's INR result, future warfarin dosing and next INR date please see the attached anticoagulation visit summary. Bridging with Enoxaparin needed: No. Warfarin is a daily dose taken in the evening. This dose is reflected in each date on the attached warfarin calendar Authorized by Amparo Cardona R.N. per RN protocol Authorized by Kinsey Villatoro M.D. Your Next INR Check: 08/20/23 If you have sent the faxed assessment form and have not received Warfarin dosing instructions by 2 pm or have questions about these instructions, please contact the Anticoagulation Program for assistance at [phone], Thursday-Thursday from 7:30 am to 4:30 pm. [...] if you start any herbal or other [id number] product (check with your doctor, a nurse, or pharmacist). If you change your diet significantly. If you decide to stop or start using tobacco or alcohol. If you notice unusual bruising or bleeding. If you notice dark, tarry, or bright red stools or blood in your urine. If you have a painful and swollen calf. documented in this encounter Progress Notes * Amparo Cardona R.N. - 08/13/2023 1:30 PM CDT Patient had first visit with Primary Care Anticoagulation Program RN today. Reviewed that the patient has been taking and that Warfarin therapy will continue indefinitely. Reviewed that the patient has connell (3 mg) tablets and has been taking Warfarin, 3 mg daily Reviewed that the patient is not using an injectable anticoagulant at this time. Current medications were not reconciled because patient refused due to completing medication reconciliation recently with primary care team. Mc education points covered today were: ?? Indication for Warfarin and INR goal range. ?? How often the patient's INR is checked will vary. ?? Importance of the need to talk with the anticoagulation nurse the day of the INR check or day after INR check if a venous draw. ?? The tablet strength and the number of tablets patients take each day may change based on their INR results. It is important to take warfarin as instructed. ?? Use of a pill box and/or calendar to track doses taken and INR results may be helpful. ?? Accessing the After Visit Summary (AVS) is very important. How to access AVS in patient portal, find warfarin dosing, signs and symptoms of bleeding and clotting, and when to contact the AC Program. - Additional education documented in patient education module. Patient verified knowledge of the designated phone number for Primary Care Anticoagulation Program is [phone] and office hours are from 7:30 am to 4:30 pm. Thursday-Thursday . Warfarin Maintenance Nursing Protocol Goal Range 2.0-3.0 (version approved 07/2021) Visit Type: Telephone Primary reason for visit: Routine f/u OR f/u per previous visit recommendations Information provided by:patient INR result: 1.7 Goal range: 2.0-3.0 Inclusion Criteria: All inclusion [...] Proceeded to maintenance warfarin dosing and follow-up. Additional Info: Pt states she will come to [facility] lab for next INR; she declined to schedule at this time and said she'd call back. She became frustrated that the phone call was taking too long and said she doesn't knowwhy she needs to talk to us because she doesn't manage her own medications. Informed her we are aware we need to send dosing instructions to her assisted living facility, but we need to complete the assessment with her in order to determine dosing. Pt interrupted health underwriter and said she would not be onthe phone any longer and hung up. Previous INR was therapeutic. Today???s INR is Subtherapeutic, Causes: Unknown. Dosing and follow up recommendation: Protocol dosing range for INR 1.5-1.7: Consult required due to indication: no. Increase last 7 daysdosing by 10%. Currently bridging: no. Next INR in 5-7 days. Additional dosing or follow-up information: None. Pt is on injectable anticoagulant: No. Plan used: Protocol. See Anticoagulation Track Calendar for dosing and plan details. 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
--- OUTSIDE RECORDS SUMMARY | 2023-10-27 17:10 | XMS_ITS | Encounter Summary ---
Author Organization [facility] Address [address] [place] [address] Care Team Providers Care Senior Quality Analyst Name Role Phone Kinsey Villatoro M.D. Primary Care Provider +1- [phone] Encounter Details Date Type Department Care Team (Latest Contact Info) Description 08/03/2023 Orders Only Department of Anticoagulation in [place], [place] [address] [place] [phone] Greta Castellanos R.NStephany [address] [place] [phone] Atrial Fibrillation Longstanding Persistent (HCC) (Primary Dx); Founder / Ceo (Current) Anticoagulant Treatment; Stroke Cerebrovascular Accident Personal [...] Diagnosis Atrial Fibrillation Longstanding Persistent (HCC)- Primary Founder / Ceo (Current) Anticoagulant Treatment Stroke Cerebrovascular Accident Personal History Monitoring For Therapeutic Drug Therapy documented in this encounter Additional Health Concerns Assessment Noted Time PHQ-9 Depression Total Score: 7 07/30/19 24 4:37 PM WELDING SPECIALIST documented as of this encounter Care Teams Senior Quality Analyst Relationship Specialty Start Date End Date Kinsey Villatoro M.D. [address] [place] [phone] PCP - General Family Medicine 07/28/23 08/17/23 documented as of this encounter
--- OUTSIDE RECORDS SUMMARY | 2023-10-27 17:10 | XMS_ITS | Encounter Summary ---
Author Organization [facility] Address [address] [place] [address] Care Team Providers Care Field Artillery Fire Control Man Name Role Phone Kinsey Villatoro M.D. Primary Care Provider [phone]- [phone] Reason for Visit * Reason Comments Med Refill Encounter Details Date Type Department Care Team (Late st Contact Info) Description 08/04/2023 Refill Department of Family Medicine, [facility], in [address] [phone] Kinsey Villatoro M.D. [address] [place] [phone] Med Refill Social History Tobacco Use Types [...] encounter Miscellaneous Notes * Telephone Encounter - Tenisha Alcala - 08/04/2023 4:56 PM CST Lab Results Component Value Date HGBA1C 6.9 (H) 07/30/2023 Nurse review: Med Refill Team is unable to forward request to provider; Discrepancy; Verification Required. Nystatin request is missing Strength and Directions Primary Provider: Kinsey Villatoro M.D. Requested Prescriptions Pending Prescriptions Disp Refills BD Luer-Tonie Syringe 3 mL 25 x 1 1/2 syringe pregabalin (LYRICA) 100 mg capsule 90 capsule 11 Sig: Take 1 capsule (100 mg total) by mouth 3 (three) times a day. 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 [address] [place] [phone] PCP - General Family Medicine 07/28/23 08/17/23 documented as of this encounter
--- OUTSIDE RECORDS SUMMARY | 2023-10-27 17:10 | XMS_ITS | Encounter Summary ---
Author Organization [facility] Address [address] [place] [address] Care Team Providers Care Stone Repairer Name Role Phone Elsewhere, Pcp Primary Care Provider Unavailabl e Encounter Details Date Type Department Care Team (Latest Contact Info) Description 08/20/2023 Orders Only Department of Anticoagulation in [place], [place] [address] [place] [phone] Tiffany Joyner, RStephanyNStephany Atrial Fibrillation Longstanding Persistent (HCC) (Primary Dx); Bench Scientist (Current) Anticoagulant Treatment; Stroke Cerebrovascular Accident Personal [...] Diagnosis Atrial Fibrillation Longstanding Persistent (HCC)- Primary Bench Scientist (Current) Anticoagulant Treatment Stroke Cerebrovascular Accident Personal History Monitoring For Therapeutic Drug Therapy documented in this encounter Additional Health Concerns Assessment Noted Time PHQ-9 Depression Total Score: 7 07/30/19 24 4:37 PM FREIGHT SEPARATOR documented as of this encounter Care Teams Stone Repairer Relationship Specialty Start Date End Date Elsewhere, Pcp PCP - General Internal Medicine 08/18/23 documented as of this encounter
--- OUTSIDE RECORDS SUMMARY | 2023-10-27 17:10 | XMS_ITS | Encounter Summary ---
Author Organization [facility] Address [address] [place] [address] Care Team Providers Care Textile Cutting Machine Operator Name Role Phone Elsewhere, Pcp Primary Care Provider Unavailabl e Reason for Visit * Reason Onset Date Comments Rx Prior Authorization 08/18/2023 Imitrex Encounter Details Date Type Department Care Team (Latest Contact Info) Description 08/18/2023 Clinical Communication Department of Family Medicine, [facility], in [address] [phone] Kinsey Villatoro M.D. [address] [place] [address] [phone] Rx Prior Authorization (Imitrex) Social History Tobacco Use Types Packs/Day Years [...] as of this encounter Visit Diagnoses Diagnosis Chronic Migraine- Primary documented in this encounter Additional Health Concerns Assessment Noted Time PHQ-9 Depression Total Score: 7 07/30/19 24 4:37 PM UNIFORM FORCE CAPTAIN documented as of this encounter Care Teams Textile Cutting Machine Operator Relationship Specialty Start Date End Date Elsewhere, Pcp PCP - General Internal Medicine 08/18/23 documented as of this encounter
--- OUTSIDE RECORDS SUMMARY | 2023-10-27 17:10 | XMS_ITS | Encounter Summary ---
Author Organization [facility] Address [address] [place] [address] Care Team Providers Care Outsole Compressor Name Role Phone Elsewhere, Pcp Primary Care Provider Unavailabl e Reason for Visit * Reason Onset Date Comments Anticoagulation 07/31/2023 CCM Enrollment Encounter Details Date Type Department Care Team (Latest Contact Info) Description 07/31/2023 Clinical Communication Department of Anticoagulation in [place], [place] [address] [place] [phone] Armand Flores, RStephanyNStephany [address] [place] [phone] Anticoagulation (CCM Enrollment) Social History Tobacco Use Types Packs/Day Years [...] encounter Miscellaneous Notes * Telephone Encounter - Armand Flores RStephanyN. - 07/31/2023 1:33 PM BASIN OPERATOR Brandee Brown is eligible for Chronic Care Management requiring moderate or high complexity medical decision making for two or more chronic illnesses placing the patient at significant riskof , acute exacerbation/decompensation, or functional decline. Please review the information above, determine if you agree with the assessment, and complete the following. It is required that a recommendation from you be documented in the medical record prior to using these billing codes for this patient. Your recommendation does NOT include services provided by the Primary Care Care Coordination program. Care management allows for management of chronic conditions and reimbursement for services provided outside of [id number] office visits. If you agree with this recommendation a letter will be sent via portal or mail. ACTION ITEM: Pleasereply YES to recommend or NO for the patient to not be considered for care management. I will follow up with the patient. Additional information related to use of specific codes and determining moderate to complex decision making (if applicable) is found here: Provider Recommendation Reference Guide. Please assure your documentation as a provider supports the level of complexity recommended. N OPERATOR documented in this encounter Plan of Treatment Not on file documented as of this encounter Visit Diagnoses Diagnosis Atrial Fibrillation Longstanding Persistent (HCC)- Primary [facility] (Current) Anticoagulant Treatment Stroke Cerebrovascular Accident Personal History Monitoring For Therapeutic Drug Therapy documented in this encounter Additional Health Concerns Assessment Noted Time PHQ-9 Depression Total Score: 7 07/30/19 4:37 PM BASIN OPERATOR documented as of this encounter Care Teams Outsole Compressor Relationship Specialty Start Date End Date Elsewhere, Pcp PCP - General Internal Medicine 08/18/23 documented as of this encounter
--- OUTSIDE RECORDS SUMMARY | 2023-10-27 17:10 | XMS_ITS | Encounter Summary ---
Author Organization [facility] Address [address] [place] [phone] Care Team Providers Care Junior Programmer Analyst Name Role Phone Kinsey Villatoro M.D. Primary Care Provider +1- [phone] Reason for Visit * Reason Onset Date Comments Form Review [facility] Encounter Details Date Type Department Care Team (Latest Contact Info) Description 07/31/2023 Clinical Communication Department of Family Medicine, [facility], in [address] [phone] Kinsey Villatoro M.D. [address] [place] [phone] Form Review ([facility]) Social History Tobacco Use Types Packs/Day Years [...] encounter Miscellaneous Notes * Telephone Encounter - Marianne Sanchez - 08/05/2023 9:26 AM CST Form faxed back to facility and sent for scanning. TECHNICIAN * Telephone Encounter - Marianne Sanchez - 07/31/2023 2:31 PM CST Form was emailed to Dr. Laureano Larsen for electronic review/signature. GRAPE CUTTER: Berny PHONE NUMBER: [phone] INFO REQUESTED: new admit Attached: 07/30/23 Office notes INSTRUCTIONS: Fax information to [phone] TECHNICIAN documented in this encounter Plan of Treatment Not on file documented as of this encounter Visit Diagnoses Not on filedocumented in this encounter Additional Health Concerns Assessment Noted Time PHQ-9 Depression Total Score: 7 07/30/19 4:37 PM TEST TECHNICIAN documented as of this encounter Care Teams Junior Programmer Analyst Relationship Specialty Start Date End Date Kinsey Villatoro M.D. [address] [place] [phone] PCP - General Family Medicine 07/28/23 08/17/23 documented as of this encounter
--- OUTSIDE RECORDS SUMMARY | 2023-10-27 17:11 | XMS_ITS | Encounter Summary ---
Author Organization [facility] Address [address] [place] [address] Care Team Providers Care Gang Leader Name Role Phone Aleksey Smith MD Primary Care Provider +1- [phone] Encounter Details Date Type Department Care Team (Late st Contact Info) Description 03/20/2021 Lab Requisition [facility] [address] [facility] [place] [place] [address] Azael Regan, [facility] [address] [place], [place] [phone] Unspecified atrial fibrillation (HRC) Social History Tobacco [...] Encounters Date Type Department Care Team (Late Contact Info) Description 11/11/2023 10:20 AM CDT Appointment [facility] [address] [facility] [address] [facility] [place] [address] Leticia Jim MD [address] [facility] [place] [address] documented as of this encounter Procedures Procedure Name Priority Date/Time Associated Diagnosis Comments INR/PROTIME Routine 03/21/2021 2:17 PM CDT Unspecified atrial fibrillation (HRC) documented in this encounter Results * (ABNORMAL) INR/Protime (03/21/2021 2:17 PM CDT) Protime 16.0(H) 11.8 - 14.6 Seconds 03/21/2021 8:34 PM CDT [facility] INR 1.3(H) 0.9 - 1.1 03/21/2021 8:34 PM CDT [facility] Blood Venipuncture / Unknown 03/21/2021 2:17 PM CDT 03/21/2021 7:58 PM CDT Narrative [facility] - 03/21/2021 8:34 PM CDT Therapeutic range determined by protocol established by anticoagulation provider. Azael Regan DO LAB[facility] [address] documented in this encounter Visit Diagnoses Diagnosis Unspecified atrial fibrillation (HRC) documented in this encounter Care Teams Gang Leader Relationship Specialty Start Date End Date Aleksey Smith MD [address] [place] [address] PCP - General 02/09/13 documented as of this encounter
--- OUTSIDE RECORDS SUMMARY | 2023-10-27 17:11 | XMS_ITS | Encounter Summary ---
Author Organization [facility] Address [address] [place] [id number] Care Team Providers Care Job Captain Name Role Phone Kinsey Villatoro M.D. Primary Care Provider [phone] Reason for Referral * Outpatient (Routine) - Authorized Specialty Diagnoses / Procedures Referred By Contact Referred To Contact Hematology / Anticoagulation Diagnoses Atrial Fibrillation Longstanding Persistent (HCC) Kinsey Villatoro M.D. [address] [place] [phone] Referral ID Status Reason Start Date Expiration Date Visits Requested Visits Authorized [id number] Authorized Specialty Services Required 07/30/2023 07/29/2025 1 1 Scheduling Instructions Per [facility] warfarin management protocols CARE INSURANCE SPECIALIST Reason for Visit * Reason Comments Establish Care Moved into [facility] four years ago for help with her meds. Will have them fax a corrected medication list as patient is unaware what she's taking for sure. Multiple joint replacements needed but unable to get those started due to low Fe. H/O back fusion.In need of refills but should have staff indicate which ones after med list obtained. Encounter Details Date Type Department Care Team (Late st Contact Info) Description 07/30/2023 3:30 PM MEDICARE INSURANCE SPECIALIST Office Visit Department of Family Medicine, [facility], in [address] [phone] Kinsey Villatoro M.D. [address] [place] [phone] Chronic Pain Syndrome (Primary Dx); Polypharmacy; Attention [...] States Discharge Disposition: Home or Self Care Social [...] Sign Reading Time Taken Comments Blood Pressure - - Pulse 95 07/30/2023 2:52 PM MEDICARE INSURANCE SPECIALIST Temperature - - Respiratory Rate - - Oxygen Saturation - - Inhaled Oxygen Concentration - - Weight 92.6 kg (204 lb 2.3 oz) 07/30/2023 2:52 P M MEDICARE INSURANCE SPECIALIST Height 157.5 cm (5' 2) 07/30/2023 2:52 PM MEDICARE INSURANCE SPECIALIST Body Mass Index 37.34 07/30/2023 2:52 PM MEDICARE INSURANCE SPECIALIST documented in this encounter H&P Notes * Kinsey Villatoro M.D. - 07/30/2023 3:30 PM CST SUBJECTIVE REASON FOR VISIT Establish Care (Moved into [facility] four years ago for help with her meds. Will have them fax a corrected medication list as patient is unaware what she's taking for sure. /Multiple joint replacements needed but unable to get those started due to low Fe. H/O back fusion./In need of refills but should have staff indicate which ones after med list obtained. ) HISTORY OF PRESENT ILLNESS: Brandee Brown is a 63 y.o. female presenting to clinic to establish care. Last PCP through [facility]. Lives in an assisted living. On disability. Has a spinal cord stimulator. Placed through [facility]. Hasn't been working. She would like this removed. Chronic back pain. Uses heat, hot tub, rest, chiropractic, acupuncture. Planning to follow-up with her spine doctor through [facility]. Looking at having a L ankle surgery and possible knee replacement. Goes to [facility]. Would like to have one alcoholic beverage per month. States she got in trouble for having an empty beer can in her room at the assisted living. States this belonged to her daughter. Was told she could not get further refills on her medications due to this incident. Seeing a psychiatrist through [facility]. She is planning to change providers. She is scheduled for a video visit with a new provider in [place]. Diagnosed with ADHD in 2nd grade. 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 Having hot flashes. Previously on hormone replacement therapy over a year ago. Wants to go back on. On ropinerole for restless legs. Not effective. Has not tolerated iron supplementation well in the past due to GI side effects. She takes xanax twice daily. ALLERGIES Allergies Allergen Reactions Cephalexin Rash Erythromycin Rash Penicillins Rash Sulfa (Sulfonamide Antibiotics) Rash Adhesive Rash Patient allergic to pressure tape or foam tape. Naproxen Rash Nsaids (Non-Steroidal Anti-Inflammatory Drug) GI intolerance Sulfamethoxazole-Trimethoprim Rash Tolmetin Rash Pt had bariatric surgery, should not ever take oral NSAIDS due to risk of gastric ulcers. Pt had bariatric surgery, should not ever take oral NSAIDS due to risk of gastric ulcers. Pt had bariatric surgery, should not ever take oral NSAIDS due to risk of gastric ulcers. Tramadol Rash Troleandomycin Rash Patient unsure if she also had angioedema from these medications. Aspirin Other (see comments) Due to gastric bypass MEDICATIONS Current Outpatient Medications Medication Sig acetaminophen (TYLENOL) 500 mg tablet Take 1,000 mg by mouth 4 (four) times a day. Take at 7:00 am,12:00 pm, 5:00 pm, 10:00 pm yogex-e-[id number] 300 unit capsule Take 300 Units by mouth. aluminum-magnesium hydroxide 200-200 mg/5 mL suspension Take 30 mL by mouth 3 (three) times a day with meals. Shake Well. azelastine (ASTELIN) 137 mcg/spray (0.1 %) nasal spray Administer 1 spray into each nostril 2 (two)times a day. BD Luer-Tonie Syringe 3 mL 25 x 1 1/2 syringe blood glucose strip-disp meter kit Check blood sugar every Thursday and at rotating times Dispense item covered by pt ins. E11.65 NIDDM type II, controlled budesonide-formoterol (for_SYMBICORT) 80-4.5 mcg/actuation inhaler Inhale 2 puffs 2 (two) times a day. Rinse mouth with water after use to reduce aftertaste and incidence of candidiasis. Do not swallow. busPIRone (BUSPAR) 10 mg tablet clindamycin (CLEOCIN) 150 mg capsule Take 600 mg by mouth daily as needed. cyanocobalamin (VITAMIN B12) 1,000 mcg/mL injection Inject 1 mL (1,000 mcg total) intramuscularly every 28 (twenty-eight) days. diaper,brief,adult,disposable misc For home use. Will use 2 per day. Size large. diphenhydrAMINE (BENADRYL) 25 mg capsule Take 25 mg by mouth every 4 (four) hours as needed for itching. ergocalciferol (DRISDOL) 50,000 Unit capsule Take 50,000 Units by mouth over 168 hr. fluticasone propion-salmeteroL 250-50 mcg/dose diskus inhaler Inhale 1 puff. fluticasone propionate (FLONASE) 50 mcg/actuation nasal spray Administer 1 spray into each nostril 2 (two) times a day. furosemide (LASIX) 40 mg tablet Take 20 mg by mouth daily. haloperidoL (HALDOL) 1 mg tablet Take by mouth. hydrocortisone (CORTIZONE) 1 % ointment Apply topically to hemorrhoid two times daily as needed [START ON 08/07/2023] HYDROmorphone (DILAUDID) 2 mg tablet Take 1 tablet (2 mg total) by mouth every 6 (six) hours as needed for pain for up to 10 days Indication: Chronic Pain/Nonacute Pain. ipratropium-albuterol (for_DUO-NEB) 0.5-2.5 mg/3 mL nebulizer solution Take 3 mL by nebulization 2 (two) times a day. Take at 7:00 am, 4:00 pm Jantoven 3 mg tablet Take by mouth. ketoconazole (NIZORAL) 2 % shampoo WASH TO AFFECTED AREA ON SCALP AND CHEST 3 TIMES WEEKLY LATHER AND LET SIT FOR SEVERAL MINUTES BEFORE RINSING lancets [facility] One touch delica lancets 33g Dispense item covered by pt ins. E11.9 NIDDM type II - Test 2 times per week loperamide (IMODIUM A-D) 2 mg capsule Take by mouth. loratadine (CLARITIN) 10 mg tablet Take 10 mg by mouth as needed. magnesium hydroxide (magnesium hydroxide) 400 mg/5 mL suspension Take 30 mL by mouth at bedtime as needed (constipation). metFORMIN (GLUCOPHAGE) 500 mg tablet Take 500 mg by mouth. miscellaneous medical supply [facility] Length: calf Strength: 16-20 mmHg Circumference in cm: For calf: Ankle 12, Calf 18.5 , Ankle to calf length 12 . nystatin (NYSTOP) 100,000 unit/gram powder Apply topically. omeprazole (PriLOSEC) [address] capsule Take 40 mg by mouth. ondansetron ODT (ZOFRAN-ODT) 4 mg disintegrating tablet Dissolve 4 mg in the mouth. ONETOUCH DELICA LANCETS 33 gauge [facility] TEST 2 TIMES PER WEEK polyethylene glycol (for_MIRALAX) 17 gram powder packet Take 17 g by mouth daily. Mix in 4-8 ouncesof water or juice and drink two times daily pregabalin (LYRICA) 100 mg capsule Take 1 capsule (100 mg total) by mouth 3 (three) times a day. Take at 7:00 am, 4:00 pm, 8:00 pm rOPINIRole (REQUIP) 0.5 mg tablet Take by mouth daily. saliva substitution (Biotene Dry Mouth Oral Rinse) mouthwash Take 15 mL by mouth every 6 (six) hours as needed. sennosides-docusate sodium (SENOKOT-S) 8.6-50 mg per tablet Take 2-3 tablets by mouth 2 (two) timesa day as needed. sertraline (for_ZOLOFT) 100 mg tablet Take 200 mg by mouth daily. simethicone (for_MYLICON) 125 mg chewable tablet Chew 125 mg 4 (four) times a day. Take at 7:00 am,12:00 pm, 5:00 pm, 8:00 pm tacrolimus (PROTOPIC) 0.1 % ointment triamcinolone (KENALOG) 0.1 % cream APPLY THIN LAYER TO ITCHY AREA OF SKIN 1-2X DAILY FOR UP TO 2 WEEKS AT A TIME , TAKE 2 WEEKS OF THEN REPEAT NEEDED FOR FLARES VENTOLIN HFA 90 mcg/actuation inhaler 2 puffs every 4 (four) hours as needed for shortness of breath. Xanax 0.5 mg tablet Take 0.5 mg by mouth 2 (two) times a day as needed. zolpidem (for_AMBIEN) 5 mg tablet Take 5 mg by mouth at bedtime. atorvastatin (LIPITOR) 40 mg tablet Take 1 tablet (40 mg total) by mouth at bedtime. dextroamphetamine-amphetamine (ADDERALL) 10 mg tablet Take 10 mg by mouth 2 (two) times a day. lisinopril (PRINIVIL,ZESTRIL) 10 mg tablet Take 1 tablet (10 mg total) by mouth daily. metoprolol tartrate (LOPRESSOR) 50 mg tablet Take 1 tablet (50 mg total) by mouth 2 (two) times a day. multivitamin (FLINTSTONES) chewable Take two daily nebulizer accessories kit For home use. Length of need: 12 months terbinafine (LamISIL) 1 % cream torsemide (DEMADEX) 20 mg tablet Take 2 tablets (40 mg total) by mouth daily. MEDICAL HISTORY Past Medical History: Diagnosis Date Acute Respiratory Failure With Hypoxia (HCC) 03/19/2017 Anxiety Generalized Disorder Peptic Ulcer Site Unspecified Unspecified As Acute Or Chronic Without Hemorrhage Or Perforation 03/31/2011 Poisoning By Unspecified Drugs Medicaments And Biological Substances Accidental Unintentional Initial 12/12/2021 Stroke ([facility]) Patient Active Problem List Diagnosis Anxiety Depression Major Recurrent (HCC) Atrial Fibrillation Longstanding Persistent (HCC) Abuse Tobacco Smoking Bipolar II Disorder (HCC) Chronic Pain Syndrome Gastroesophageal Reflux Disease NOS Insomnia Diabetes Mellitus Type 2 Without Complication (HCC) Hypertension Essential Primary Morbid Obesity Body Mass Index >= 35 with Comorbid Condition (HCC) Ventral Hernia Without Obstruction Or Gangrene Spinal Stenosis Lumbar Region Without Neurogenic Claudication Rhinitis Allergic Posttraumatic Stress Disorder Prolonged Postlaminectomy Syndrome Phobia Social Other Stimulant Dependence In Remission (HCC) Moderate Or Severe Use Disorder (Dependence) Drug Cocaine Remission (HCC) Menopausal And Female Climacteric States Loss Hearing Sensorineural Bilateral Deviation Nasal Septal Deformity Nasal Deficiency Vitamin D Deficiency Of Other Specified B Group Vitamins Chronic Diastolic (Congestive) Heart Failure (HCC) Attention Deficit Hyperactive Disorder Asthma Mild Persistent (HCC) Bypass Gastric Anne En Y Status Post Anemia Deficiency Iron [facility] (Current) Anticoagulant Treatment Stroke Cerebrovascular Accident Personal History Monitoring For Therapeutic Drug Therapy Hyperlipidemia Restless Leg Syndrome SURGICAL HISTORY Past Surgical History: Procedure Laterality Date GASTRIC BYPASS FAMILY HISTORY Family History Problem Relation Age of Onset Hypertension Mother Diabetes Father Multiple sclerosis Sister Diabetes Brother VITAL SIGNS Pulse 95 Ht 157.5 cm Wt 92.6 kg BMI 37.34 kg/m?? PHYSICAL EXAMINATION Vitals reviewed. Constitutional General: She is not in acute distress. Cardiovascular Rate and Rhythm: Normal rate. Rhythm irregular. Pulmonary Effort: Pulmonary effort is normal. Breath sounds: Normal breath sounds. No wheezing, rhonchi or rales. Musculoskeletal Right lower leg: No edema. Left lower leg: No edema. Skin General: Skin is warm and dry. Neurological Mental Status: She is alert. Psychiatric Attention and Perception: Attention normal. Mood and Affect: Mood is anxious. Speech: Speech is tangential. Thought Content: Thought content normal. ASSESSMENT / PLAN Brandee Brown is a 63 y.o. female presenting to clinic to establish care. #1 Chronic Pain Syndrome #2 Polypharmacy Patient's current medication list includes: Dilaudid, 2 mg every 6 hours. Clonazepam, 0.5 mg twice daily. Haloperidol, 1 mg daily. Adderall IR, 10 mg twice daily. Pregabalin, 100 mg three times daily. Ambien, 5 mg daily at bedtime. Per notes from [facility], in December of 2022, she was admitted with acute encephalopathy presumably secondary to polysubstance use, including methamphetamine, cocaine, PCP, and ketamine. I cannot see detailed records of this incident. She has also been diagnosed with cognitive impairment, with MOCA score of 10/30 in 2022. I do not have records from her last PCP through [facility] at this time, however they have been requested. Per patient report, she was denied ongoing prescriptions from [facility] due to being found with a beer can in her room, though she denies current alcohol use and states this belonged to her daughter. Today, she is requesting an increase in her Dilaudid, Adderall, and Pregabalin. I have significant concerns about the safety of her current medication regimen, particularly in thecontext of cognitive impairment, gait instability with high risk of falls while on anticoagulation,and possible substance abuse. I was clear with Brandee that I recommend gradual changes to this regimen to reduce the risks of polypharmacy out of concern for her safety. She became upset at this recomm endation and expresses that she will find a new physician. I told her that I am willing to provide prescriptions in the short-term to bridge her care. #3 Attention Deficit Hyperactive Disorder #4 Bipolar II Disorder (HCC) She will be establishing with a new Psychiatry provider in [place]. She does not feel that her Adderall is effective in managing her ADHD symptoms and she requests a dose increase. Due to her history of atrial fibrillation with RVR and disability status, in addition to polypharmacy issues as above, I think the risk of stimulant medications outweighs benefit. I recommend that she discontinue the Adderall and discuss alternative treatment options with her new Psychiatrist. #5 Restless Leg Syndrome #6 Anemia #7 Deficiency Iron #8 Bypass Gastric Anne En Y Status Post #9 Deficiency Of Other Specified B Group Vitamins Her ferritin level was last checked in 2019 and was low at 9.6. She has not tolerated oral supplementation well in the past and with her history of gastric bypass, I think an iron infusion would be more effective to improve her iron levels. Will repeat labs today and if persistently iron deficient,will proceed with infusion. Will reassess her restless leg symptoms after ferritin is >75. She will also continue vitamin B12 injections. #10 Atrial Fibrillation Longstanding Persistent (HCC) She has been following with Cardiology through [facility] and would like to transfer her care to [facility]. Cardiology referral is placed. She is also referred to the anticoagulation clinic for ongoing management of her warfarin. #11 Diabetes Mellitus Type 2 Without Complication (HCC) #12 Morbid Obesity Body Mass Index >= 35 with Comorbid Condition ([facility]) She states that she does not have a diagnosis of diabetes, however she is on metformin with multiple hemoglobin A1c readings >6.5. Repeat a hemoglobin A1c today. #13 Menopausal And Female Climacteric States She is having hot flashes and is interested in restarting HRT. I think risk likely outweighs benefits. Discussed nonpharmacologic management. Kinsey Villatoro M.D. CARE INSURANCE SPECIALIST documented in this encounter Plan of Treatment Scheduled Referrals Name Type Priority Associated Diagnoses Orde r Schedule Anticoagulation monitoring consult (clinic) Outpatient Referral Routine Atrial Fibrillation Longstanding Persistent (HCC) Ordered: 07/30/2023 documented as of this encounter Procedures Procedure Name Priority Date/Time Associated Diagnosis Comments IRON AND TOT IRON-BINDING CAPACITY, S/P Routine 07/30/2023 4:48 PM MEDICARE INSURANCE SPECIALIST Deficiency Iron Anemia CBC WITH DIFFERENTIAL, B Routine 07/30/2023 4:48 PM MEDICARE INSURANCE SPECIALIST Deficiency Iron Anemia HEMOGLOBIN A1C, B Routine 07/30/2023 4:4 8 PM MEDICARE INSURANCE SPECIALIST Diabetes Mellitus Type 2 Without Complication (HCC) FERRITIN, S Routine 07/30/2023 4:48 PM MEDICARE INSURANCE SPECIALIST Deficiency Iron Anemia COMPREHENSIVE METABOLIC PANEL, S/P Routine 07/30/2023 4:47 PM MEDICARE INSURANCE SPECIALIST Atrial Fibrillation Longstanding Persistent (HCC) documented in this encounter Results * (ABNORMAL) Hemoglobin A1c (07/30/2023 4:48 PM MEDICARE INSURANCE SPECIALIST) Hemoglobin A1c, B 6.9(H) 4.2 - 5.6 % 07/30/2023 5:10 PM MEDICARE INSURANCE SPECIALIST CNFL Comment: Hemoglobin A1c values greater than or equal to 6.5 percent are diagnostic for diabetes mellitus. ??Diagnosis should be confirmed by repeat testing. ??In diabetic patients, HbA1c goals should be discussed with healthcare provider. Blood (Blood, Venous) 07/30/2023 4:48 PM MEDICARE INSURANCE SPECIALIST 07/30/2023 4:49 PM MEDICARE INSURANCE SPECIALIST Kinsey Villatoro M.D. LAB BLOOD ADD-ON [facility] [address] [place] [id number], [facility] CNFL [facility] [place] [id number] [place] [address] [address] [place] [address] * (ABNORMAL) Iron and Total Iron-Binding Capacity (07/30/2023 4:48 PM MEDICARE INSURANCE SPECIALIST) Iron 22(L) 35 - 145 mcg/dL 07/31/2023 1:44 PM MEDICARE INSURANCE SPECIALIST RDWG Total Iron Binding Capacity 507(H) 250 - 400 mcg/dL 07/31/2023 1:44 PM MEDICARE INSURANCE SPECIALIST RDWG Percent Saturation 4(L) 14 - 50 % 07/31/2023 1:44 PM MEDICARE INSURANCE SPECIALIST RDWG Blood (Blood, Venous) 07/30/2023 4:48 PM MEDICARE INSURANCE SPECIALIST 07/31/2023 1:21 PM MEDICARE INSURANCE SPECIALIST Kinsey Villatoro M.D. LAB BLOOD ADD-ON Performing Organization Address [facility] Co de Phone Number [facility] [address] [place] [id number], [facility] RDWG [facility] in [place] [phone] * Ferritin (07/30/2023 4:48 PM MEDICARE INSURANCE SPECIALIST) Ferritin, S 21 11 - 328 mcg/L 07/31/2023 1:53 PM MEDICARE INSURANCE SPECIALIST RDWG Comment: Biotin has been identified by the ring cutter lathe operator as a potential interfering substance. Higher concentrations of biotin may be found in multivitamins, hair/nail supplements, and workout supplements. If the result does not match clinical observations, repeat testing after patient refrains from the use of supplements for at least 12 hours. Blood (Blood, Venous) 07/30/2023 4:48 PM MEDICARE INSURANCE SPECIALIST 07/31/2023 1:21 PM MEDICARE INSURANCE SPECIALIST Kinsey Villatoro M.D. LAB BLOOD ADD-ON Performing Organization Address City/[facility]/ZIP Co de Phone Number [facility] [address] [place] [address] [place] [phone], [facility] RDWG [facility] [place] [address], [place] [phone] * (ABNORMAL) CBC with Differential, Blood (07/30/2023 4:48 PM MEDICARE INSURANCE SPECIALIST) Hemoglobin 10.1(L) 11.6 - 15.0 g/dL 07/30/2023 5:26 PM MEDICARE INSURANCE SPECIALIST CNFL Hematocrit 34.3(L) 35.5 - 44.9 % 07/30/2023 5:26 PM MEDICARE INSURANCE SPECIALIST CNFL Erythrocytes 4.57 3.92 - 5.13 x10(12)/L 07/30/2023 5:26 PM MEDICARE INSURANCE SPECIALIST CNFL MCV 75.1(L) 78.2 - 97.9 fL 07/30/2023 5:26 PM MEDICARE INSURANCE SPECIALIST CNFL RBC Distrib Width 18.2(H) 12.2 - 16.1 % 07/30/2023 5:26 PM MEDICARE INSURANCE SPECIALIST CNFL Platelet Count 244 157 - 371 x10(9)/L 07/30/2023 5:26 PM MEDICARE INSURANCE SPECIALIST CNFL Leukocytes 7.0 3.4 - 9.6 x10(9)/L 07/30/2023 5:26 PM MEDICARE INSURANCE SPECIALIST CNFL Neutrophils 5.10 1.56 - 6.45 x10(9)/L 07/30/2023 5:26 PM MEDICARE INSURANCE SPECIALIST CNFL Lymphocytes 1.06 0.95 - 3.07 x10(9)/L 07/30/2023 5:26 PM MEDICARE INSURANCE SPECIALIST CNFL Monocytes 0.61 0.26 - 0.81 x10(9)/L 07/30/2023 5:26 PM MEDICARE INSURANCE SPECIALIST CNFL Eosinophils 0.20 0.03 - 0.48 x10(9)/L 07/30/2023 5:26 PM MEDICARE INSURANCE SPECIALIST CNFL Basophils 0.06 0.01 - 0.08 x10(9)/L 07/30/2023 5:26 PM MEDICARE INSURANCE SPECIALIST CNFL Blood (Blood, Venous) 07/30/2023 4:48 PM MEDICARE INSURANCE SPECIALIST 07/30/2023 4:49 PM MEDICARE INSURANCE SPECIALIST Kinsey Villatoro M.D. LAB BLOOD ADD-ON [facility] [address] [place] [phone], [facility] CNFL [facility] in [address] [address] * (ABNORMAL) Comprehensive Metabolic Panel (07/30/2023 4:47 PM MEDICARE INSURANCE SPECIALIST) Potassium, P 4.0 3.6 - 5.2 mmol/L 07/30/2023 5:11 PM MEDICARE INSURANCE SPECIALIST CNFL Sodium, P 137 135 - 145 mmol/L 07/30/2023 5:11 PM MEDICARE INSURANCE SPECIALIST CNFL Chloride, P 98 98 - 107 mmol/L 07/30/2023 5:11 PM MEDICARE INSURANCE SPECIALIST CNFL Bicarbonate, P 28 22 - 29 mmol/L 07/30/2023 5:11 PM MEDICARE INSURANCE SPECIALIST CNFL Anion Gap, P 11 7 - 15 07/30/2023 5:11 PM MEDICARE INSURANCE SPECIALIST CNFL BUN (Blood Urea Nitrogen), P 15 6 - 21 mg/dL 07/30/2023 5:11 PM MEDICARE INSURANCE SPECIALIST CNFL Creatinine 0.62 0.59 - 1.04 mg/dL 07/30/2023 5:11 PM MEDICARE INSURANCE SPECIALIST CNFL Estimated GFR (eGFR) >90 >=60 mL/min/BS A 07/30/2023 5:11 PM MEDICARE INSURANCE SPECIALIST CNFL Comment: Estimated GFR calculated using the 2020 CKD_EPI creatinine equation. Calcium, Total, P 8.5(L) 8.8 - 10.2 mg/dL 07/30/2023 5:11 PM MEDICARE INSURANCE SPECIALIST CNFL Glucose, P 113 70 - 140 mg/dL 07/30/2023 5:11 PM MEDICARE INSURANCE SPECIALIST CNFL Protein, Total, P 7.0 6.3 - 7.9 g/dL 07/30/2023 5:11 PM MEDICARE INSURANCE SPECIALIST CNFL Albumin, P 4.1 3.5 - 5.0 g/dL 07/30/2023 5:11 PM MEDICARE INSURANCE SPECIALIST CNFL Aspartate Aminotransferase (AST), P 42 8 - 43 U/L 07/30/2023 5:11 PM MEDICARE INSURANCE SPECIALIST CNFL Alkaline Phosphatase, P 116(H) 35 - 104 U/L 07/30/2023 5:11 PM MEDICARE INSURANCE SPECIALIST CNFL Alanine Aminotransferase (ALT), P 47(H) 7 - 45 U/L 07/30/2023 5:11 PM MEDICARE INSURANCE SPECIALIST CNFL Bilirubin, Total, P <0.2 0.0 - 1.2 mg/dL 07/30/2023 5:11 PM MEDICARE INSURANCE SPECIALIST CNFL Blood (Blood, Venous) 07/30/2023 4:47 PM MEDICARE INSURANCE SPECIALIST 07/30/2023 4:49 PM MEDICARE INSURANCE SPECIALIST Kinsey Villatoro M.D. LAB BLOOD ADD-ON [facility] [address] [place] [phone], [facility] CNFL [facility] in [address] [address] documented in this encounter Visit Diagnoses Diagnosis Chronic Pain Syndrome- Primary Polypharmacy Attention Deficit Hyperactive Disorder Bipolar II Disorder (HCC) Restless Leg Syndrome Anemia Deficiency Iron Bypass Gastric Anne En Y Status Post Deficiency Of Other Specified B Group Vitamins Atrial Fibrillation Longstanding Persistent (HCC) Diabetes Mellitus Type 2 Without Complication (HCC) Morbid Obesity Body Mass Index >= 35 with Comorbid Condition (HCC) Menopausal And Female Climacteric States documented in this encounter Additional Health Concerns Assessment Noted Time PHQ-9 Depression Total Score: 7 07/30/19 4:37 PM MEDICARE INSURANCE SPECIALIST documented as of this encounter Care Teams Job Captain Relationship Specialty Start Date End Date Kinsey Villatoro M.D. [address] [place] [phone] PCP - General Family Medicine 07/28/23 08/17/23 documented as of this encounter
--- OUTSIDE RECORDS SUMMARY | 2023-10-27 17:11 | XMS_ITS | Encounter Summary ---
Author Organization [facility] Address [address] [place] [address] Care Team Providers Care Wood Router Name Role Phone Aleksey Smith MD Primary Care Provider +1- [phone] Reason for Referral * (Routine) - New Request Specialty Diagnoses / Procedures Referred By Katina ribera Referred To Contact Diagnoses Myofascial pain Procedures Betamethasone Acet&[place] [address] [place] [address] Referral ID Status Reason Start Date Expiration Date V isits Requested Visits Authorized [id number] New Request 09/03/2023 12/02/2024 1 1 * Procedure/Equipment (Routine) - Authorized Specialty Diagnoses / Procedures Referred By Katina ribera Referred To Contact Diagnoses Neuroforaminal stenosis of lumbar spine Lumbar radiculopathy Procedures FL Spinal Injection For Pain [place] [address] [place] [address] Referral ID Status Reason Start Date Expiration Date V isits Requested Visits Authorized [id number] Authorized 09/03/2023 12/02/2024 1 1 Reason for Visit * Reason Comments Follow-up TPIs Encounter Details Date Type Department Care Team (Latest Contact Info) Description 09/03/2023 1:40 PM CDT Office Visit [facility] [address] [place] [address] Mehrdad Torrez, [address] [facility] [place] [address] Neuroforaminal stenosis of lumbar spine (Primary Dx); Lumbar radiculopathy; Myofascial pain; Chronic bilateral low back pain with left-sided sciatica (HRC) Social History Tobacco Use Types Packs/Day [...] this encounter Patient Instructions * Patient Instructions* Mehrdad Torrez DO - 09/03/2023 1:40 PM CDT Follow-up. Since last being seen she did complete her lumbar CT scan. This did note severe neural foraminal stenosis at L L2-3. She did also note some temporary benefit from the trigger point injections. 1. Discussed risks benefits alternatives of trigger point injections. Patient elected proceed, performed in clinic today. 2. I did place an order for lumbar epidural injection. Hopefully this will provide significant benefit. I did provide her with a prescription for Valium to help manage anxiety prior to the procedure.Day of the procedure I would not recommend taking her hydromorphone as this could cause excessive sedation when the Valium for the procedure. 3. Follow-up as needed. She was potentially going to be having surgery in the future. If she does she will continue care with the surgical team afterward Trigger Point Injections A trigger point is a tight, painful ???knot?? of muscle fibers. Injecting a trigger point can helprelax the affected muscle and relieve pain. A local anesthetic medication and corticosteroid medication are used for trigger point injections. Several injections may be needed in each trigger point to best relieve pain. These may be performed in sessions 2-3 weeks apart. Complications are very rare but may include infection, bleeding, increased pain, or lung puncture (pneumothorax). You will be monitored for a short period of time after each injection. The injection sites may be sore for a day or so. You may put ice on the treated sites to reduce pain after the injections. If you feel fine after the procedure, you may resume light activities over the next several days and thenreturn to your usual activities. You may notice you have pain relief for several hours followed by a return to your baseline pain. Longer lasting pain relief may be noticed 18-72 hours later. documented in this encounter Progress Notes * Mehrdad Torrez DO - 09/03/2023 1:40 PM CDT PROCEDURE NOTE Procedure: Trigger point injections Indication: Myofascial pain Examination of the involved area revealed findings consistent with the referral indication. I reviewed patient allergies and discussed the risks and benefits of the procedure with the patient. Benefits include potential improvement of pain and function. Risks include, but are not limited to, infection, allergic reaction, local tissue breakdown, bleeding, damage to a nerve, post-injection flare, hyperglycemia, and increased pain. The patient indicated understanding, gave verbal consent and agreed to proceed. The area of the pain was examined and the areas identified for injections were marked. 8 Trigger points were identified in the bilateral lower thoracic paraspinals x4, bilateral lumbar paraspinals x4. These areas were cleaned with alcohol in the usual manner. The procedure was carried out under aseptic technique. A mixture of 7mL of 1% lidocaine and 1 mL of 6 mg/mL betamethasone was used. A 25-gauge, 1.5-inch needle was atraumatically introduced and advanced into each trigger point. Following negative aspiration for blood, 1 mL of the mixture was injected into each trigger point. The patient tolerated the procedure well without immediate complication. The patient was given post-procedure care instructions. The patient was observed and was dismissed in good condition. Assessment: Successful trigger point injections * Mehrdad Torrez DO - 09/03/2023 1:40 PM CDT PHYSICAL MEDICINE AND REHABILITATION Follow up Chief Complaint: Chief Complaint Patient presents with Follow-up TPIs History of Present Illness: Brandee Brown is a 63 y.o. female who presents for evaluation of low back pain and left leg pain. History from initial consult: Has past medical history significant for hypertension, DM 2, cardiomyopathy, atrial fibrillation, 2018 lacunar CVA, bipolar, ADHD, anxiety, depression, morbid obesity, 2002 gastric bypass, polysubstance abuse, cognitive impairment. Patient has a history of lumbar fusion L3-sacrum and bilateral hip replacements. Patient presents to clinic for evaluation of bilateral lower thoracic, lumbar and leftleg pain. She notes that she was severe pain in many different areas. She receives her medications from her primary care. She does live in an assisted living facility where her medications are distributed. She does think that she has taken gabapentin in the past but does not recall if it was helpful. She previously has been seen in the [facility]. She does have a history of a fusion done by Dr. Morrow previously band she has been scheduled to trial a lumbar epidural in the past. She has not seen them since 2019. Patient notes that her pain does seem to be getting worse. She has a history of a spinal cord stimulator placed by [facility] in May of 2020. This is not currently on and did not seem to provide significant benefit. She notes that her activity has become more limitedshe was only able to walk a short distance. She was not able to walk even 3 blocks. She was wondering if something has gone wrong with her fusion and what options there are. She was not feel that hercurrent medications are adequately controlling her pain. Patient returns to clinic for follow-up. She continues to experience significant pain in the lower back with pain traveling into the left anterior thigh, inner knee and in her lower leg. She does note that she completed her CT scan. She was also had a consultation with spine surgery and is planningto undergo an extension of her fusion with hardware removal and spinal cord stimulator removal. Trigger point injections in the last visit did seem to provide some temporary benefit. Symptoms aregetting worse. Pain up to 9/10. Does note numbness and nerve pain going down the left leg. Denies bowel or bladder incontinence. Medications: Dilaudid 2 mg q.i.d. Alprazolam b.i.d. Zolpidem nightly Pregabalin 75 mg b.i.d. Physical activity: Activity around her apartment. Some stretches, performs back bridges. Social History: Single. Physical Examination: General: Well-developed, well-nourished individual in no acute distress. Eyes: No scleral injection noted Psych: Calm, pleasant affect. Pulmonary: Non-labored breathing. Lumbar Spine: ROM: Limited motion lumbar spine with both flexion and extension. Palpation: Significantly tender to palpation in lower thoracic paraspinals and lumbar paraspinals. Data: MRI L-spine 12/07/2019 IMPRESSION: 1. Transitional anatomy with partial lumbarization of S1. 2. New surgical fusion changes from L3 to S1. 3. Resolution of prior severe spinal canal narrowing at L4-L5. 4. Increased degenerative findings at the nonfused levels, most pronounced at L2-L3 where there is increased severe left and moderate right neural foraminal narrowing, moderate spinal canal narrowing, with lateral recess narrowing. Assessment: ICD-10-CM 1. Neuroforaminal stenosis of lumbar spine M48.061 FL Spinal Injection For Pain Management 2. Lumbar radiculopathy M54.16 FL Spinal Injection For Pain Management 3. Myofascial pain M79.18 Betamethasone Acet&Sod Phosp Inj; Single/Mx Trig Point 3/> Muscl 4. Chronic bilateral low back pain with left-sided sciatica (HRC) M54.42 G89.29 Recommendations: Follow-up. Since last being seen she did complete her lumbar CT scan. This did note severe neural foraminal stenosis at L L2-3. She did also note some temporary benefit from the trigger point injections. 1. Discussed risks benefits alternatives of trigger point injections. Patient elected proceed, performed in clinic today. 2. I did place an order for lumbar epidural injection. Hopefully this will provide significant benefit. I did provide her with a prescription for Valium to help manage anxiety prior to the procedure.Day of the procedure I would not recommend taking her hydromorphone as this could cause excessive sedation when the Valium for the procedure. 3. Follow-up as needed. She was potentially going to be having surgery in the future. If she does she will continue care with the surgical team afterward Patient Education: The diagnosis, anatomy, basic pathophysiology, and management plan of the disorder were discussed with the patient. This note was created using voice recognition software and may contain typographical errors. Mehrdad Torrez DO Physical Medicine and Rehabilitation documented in this encounter Plan of Treatment Upcoming Encounters Date Type Department Care Team (Late st Contact Info) Description 11/11/2023 10:[address] [facility] [address] [facility]. [place], [place] [address] Leticia Jim MD [address] [facility] [address] [place], [place] [address] Scheduled Orders Name Type Priority Associated Diagnoses Orde r Schedule FL Spinal Injection For Pain Management Imaging New Routine Neuroforaminal stenosis of lumbar spine Lumbar radiculopathy Expected: 09/03/2023 (Approximate), Expires: 09/02/2024 documented as of this encounter Visit Diagnoses Diagnosis Neuroforaminal stenosis of lumbar spine- Primary Lumbar radiculopathy Thoracic or lumbosacral neuritis or radiculitis, unspecified Myofascial pain Mylagia and myositis, unspecified Chronic bilateral low back pain with left-sided sciatica (HRC) documented in this encounter Care Teams Wood Router Relationship Specialty Start Date End Date Aleksey Smith MD [address] [place] [address] PCP - General 02/09/13 documented as of this encounter
--- OUTSIDE RECORDS SUMMARY | 2023-10-27 17:11 | XMS_ITS | Encounter Summary ---
[facility] Organization [facility] Address [address] [place] [address] Care Team Providers Care Rug Setter Velvet Name Role Phone Aleksey Smith MD Primary Care Provider +1- [phone] Reason for Referral * (Routine) - New Request Specialty Diagnoses / Procedures Referred By Katina ribera Referred To Contact Diagnoses Myofascial pain Procedures Betamethasone Acet&[place] [address] [place] [address] Referral ID Status Reason Start Date Expiration Date V isits Requested Visits Authorized [id number] New Request 10/05/2023 01/03/2025 1 1 Reason for Visit * Reason Comments Follow-up TPI Encounter Details Date Type Department Care Team (Late st Contact Info) Description 10/05/2023 12:30 PM CDT Office Visit [facility] Medicine [address] [place] [address] [place] [address] [place] [phone] Myofascial pain (Primary Dx); Lumbar radiculopathy; Chronic bilateral low back pain with left-sided sciatica (HRC); History of lumbar fusion; Chronic pain syndrome; Pain in thoracic spine (HRC) Social History Tobacco Use Types Packs/Day [...] encounter Patient Instructions * Patient Instructions* Mehrdad Torrez, - 10/05/2023 12:30 PM CDT Patient returns to clinic for follow-up. Unfortunately since last being seen she is continued to experience significant pain. She reports that she has tapered off of her Dilaudid as her primary care is no longer refilling this medication. She notes that the trigger point injections provided benefit. 1. Discussed risks benefits alternatives of repeat trigger point injections. Patient elected proceed, performed in clinic today. 2. Patient does have her pain clinic consult scheduled. This is in [facility]. 3. She also has a epidural injections scheduled. 4. For temporary pain management I did provide her with a prescription for methocarbamol. I did discuss that I do not prescribe opioids in patients who are already taking a benzodiazepine. 5. Follow-up in 2 months. Trigger Point Injections A trigger point is a tight, painful ???knot?? of muscle fibers. Injecting a trigger point can helprelax the affected muscle and relieve pain. Typically a local anesthetic medication and corticosteroid medication are used for trigger point injections. Other medications such as botulinum toxin are used in some situations. Several injections may be needed in each [...] day or so. You may put ice or heat on the treated sites as instructed by your doctor. If you feel fine after the procedure, you may resume light activities over the next several days and then return to your usual activities. You may notice you have pain relief for several hours followed bya return to your baseline pain. Longer lasting pain relief may be noticed 18-72 hours later. documented in this encounter Progress Notes * Mehrdad Torrez DO - 10/05/2023 12:30 PM CDT PROCEDURE NOTE Procedure: Trigger point [...] point injections * Mehrdad Torrez DO - 10/05/2023 12:30 PM CDT PHYSICAL MEDICINE AND REHABILITATION Follow up Chief Complaint: Chief Complaint Patient presents with Follow-up TPI History of Present Illness: Brandee Brown is a 63 y.o. female who presents for evaluation of low back pain and left leg pain. History from initial consult: Has past medical history significant for hypertension, DM 2, cardiomyopathy, atrial fibrillation, 2018 lacunar CVA, bipolar, ADHD, anxiety, depression, morbid obesity, 2003 gastric bypass, polysubstance abuse, cognitive impairment. Patient [...] of a spinal cord stimulator placed by [facility] in May of 2020. This is not [...] hercurrent medications are adequately controlling her pain. Interval update 10/05/2023: Patient continues to experience significant pain in several different areas particularly in the mid and low back. She notes that she has been tapering off of her Dilaudid because her primary care does not want to provide this anymore. She was not yet been able to get into the pain clinic. She did ask if I could provide her with a small prescription of Dilaudid. Today: Pain 7/10, constant sharp/stabbing, staying the same. Aggravated sitting standing, walking, bending, twisting reaching, housework. Alleviated by heat, injections, walking, chiropractic treatment, physical therapy. Medications: Dilaudid 2 mg q.i.d. has recently discontinued. Alprazolam b.i.d. Zolpidem nightly Pregabalin 75 mg [...] with lateral recess narrowing. Assessment: ICD-10-CM 1. Myofascial pain M79.18 Betamethasone Acet&Sod Phosp Inj; Single/Mx Trig Point 3/> Muscl 2. Lumbar radiculopathy M54.16 3. Chronic bilateral low back pain with left-sided sciatica (HRC) M54.42 G89.29 4. History of lumbar fusion Z98.1 5. Chronic pain syndrome G89.4 6. Pain in thoracic spine (HRC) M54.6 Recommendations: Patient returns to clinic for follow-up. Unfortunately since last being seen she is continued to experience significant pain. She reports that she has tapered off of her Dilaudid as her primary care is no longer refilling this medication. She notes that the trigger point injections provided benefit. 1. Discussed risks benefits alternatives of repeat trigger point injections. Patient elected proceed, performed in clinic today. 2. Patient does have her pain clinic consult scheduled. This is in [facility]. 3. She also has a epidural injections scheduled. 4. For temporary pain management I did provide her with a prescription for methocarbamol. I did discuss that I do not prescribe opioids in patients who are already taking a benzodiazepine. 5. Follow-up in 2 months. Patient Education: The diagnosis, anatomy, basic pathophysiology, and management plan of the disorder were discussed with the patient. This note was created using voice recognition software and may contain typographical errors. Mehrdad Torrez DO Physical Medicine and Rehabilitation documented in this encounter Plan of Treatment Upcoming Encounters Date Type Department Care Team (Late st Contact Info) Description 11/11/2023 10:20 AM CDT Appointment [facility] [address] Pain Clinic [address] [facility] [place], [place] [address] Leticia Jim MD [address] [facility] [place] [address] documented as of this encounter Visit Diagnoses Diagnosis Myofascial pain- Primary Mylagia and myositis, unspecified Lumbar radiculopathy Thoracic or lumbosacral neuritis or radiculitis, unspecified Chronic bilateral low back pain with left-sided sciatica (HRC) History of lumbar fusion Chronic pain syndrome Pain in thoracic spine (HRC) Pain in thoracic spine documented in this encounter Care Teams Rug Setter Velvet Relationship Specialty Start Date End Date Aleksey Smith MD [address] [place] [address] PCP - General 02/09/13 documented as of this encounter
--- OUTSIDE RECORDS SUMMARY | 2023-10-27 17:11 | XMS_ITS | Encounter Summary ---
Author Organization [facility] Address [address] [place] [address] Care Team Providers Care Supervisor Mending Name Role Phone Aleksey Smith MD Primary Care Provider +1- [phone] Reason for Visit * Reason Comments RESULTS, TEST Encounter Details Date Type Department Care Team (Late st Contact Info) Description 07/28/2023 Telephone [facility] [facility] [address] [facility] [place] [address] [place] [address] [place] [phone] RESULTS, TEST Social History Tobacco Use Types Packs/Day Years [...] on file documented as of this encounter Nursing Notes * Sarah Guerrero RN - 08/03/2023 11:29 AM CST Updated patient. No further questions or concerns at this time. RIBUTED GENERATION PROJECT MANAGER * Mehrdad Torrez DO - 07/28/2023 7:02 AM CST I received the results of the patient's CT scan. The impression is listed below. The surgical changes at L3 through S1 appear to be stable. There is significant degenerative change above the level ofher fusion at L2-3. We will review these findings in greater detail at follow-up. IMPRESSION: 1. Comparison to MRI lumbar spine 12/07/2019 . 2. Substantial progression of endplate degeneration, disc space narrowing, and retrolisthesis at L2-3. 3. Stable postoperative changes at L3-4 through L5-S1 as above. 4. Slight progression of degenerative changes at T12-L1 and L1-2. RIBUTED GENERATION PROJECT MANAGER documented in this encounter Plan of Treatment Upcoming Encounters Date Type Department Care Team (Late st Contact Info) Description 11/11/2023 10:20 AM CDT Appointment [facility] [address] Pain Clinic [address] [facility] [place] [address] Leticia Jim MD [address] [place] [address] documented as of this encounter Visit Diagnoses Not on filedocumented in this encounter Care Teams Supervisor Mending Relationship Specialty Start Date End Date Aleksey Smith MD [address] [place] [address] PCP - General 02/09/13 documented as of this encounter
--- OUTSIDE RECORDS SUMMARY | 2023-10-27 17:11 | XMS_ITS | Encounter Summary ---
Author Organization [facility] Address [address] [place] [address] Care Team Providers Care Sheep Farm Manager Name Role Phone Elsewhere, Pcp Primary Care Provider Unavailabl e Encounter Details Date Type Department Care Team (Late st Contact Info) Description 07/28/2023 Clinical Communication Department of Family Medicine, [facility], in [address] [phone] Kinsey Villatoro M.D. [address] [place] [phone] Social History Tobacco Use Types Packs/Day Years Used Date Smoking Tobacco: Every Day Cigarettes Smokeless Tobacco: Never Comments:plan on quiting bef ore surgery July Alcohol Use Standard Drinks/Week Comments No 0 [...] on filedocumented in this encounter Care Teams Sheep Farm Manager Relationship Specialty Start Date End Date Elsewhere, Pcp PCP - General Internal Medicine 08/18/23 documented as of this encounter
--- OUTSIDE RECORDS SUMMARY | 2023-10-27 17:11 | XMS_ITS | Encounter Summary ---
Author Organization [facility] Address [address] [place] [address] Care Team Providers Care Sumatra Opener Name Role Phone Aleksey Smith MD Primary Care Provider +1- [phone] Encounter Details Date Type Department Care Team (Late st Contact Info) Description 03/22/2021 Lab Requisition [facility] [address] [facility] [place] [address] Azael Regan, [facility] [address] [place], [place] [address] Unspecified atrial fibrillation (HRC) Social History Tobacco [...] Info) Description 11/11/2023 10:20 AM CDT Appointment [facility] Clinic [address] [facility] [place] [address] Leticia Jim MD [address] [place] [address] Scheduled Orders Name Type Priority Associated Diagnoses Orde r Schedule INR/Protime Lab Routine Unspecified atrial fibrillation (HRC) Ordered: 03/22/2021 documented as of this encounter Visit Diagnoses Diagnosis Unspecified atrial fibrillation (HRC) documented in this encounter Care Teams Sumatra Opener Relationship Specialty Start Date End Date Aleksey Smith MD [address] [place] [address] PCP - General 02/09/13 documented as of this encounter
--- OUTSIDE RECORDS SUMMARY | 2023-10-27 17:11 | XMS_ITS | Encounter Summary ---
Author Organization [facility] Address [address] [place] [address] Care Team Providers Care Gamma Operator Name Role Phone Aleksey Smith MD Primary Care Provider +1- [phone] Encounter Details Date Type Department Care Team (Late st Contact Info) Description 03/26/2021 Lab Requisition [facility] [address] [facility] [place] [address] Azael Regan, [facility] [address] [place] [address] Vitamin D deficiency, unspecified Social History Tobacco [...] Description 11/11/2023 10:[address] [facility] [address] Pain Clinic [address] [facility] [place], [place] [address] Leticia Jim MD [address] [facility] [place] [address] documented as of this encounter Visit Diagnoses Diagnosis Vitamin D deficiency, unspecified (HRC) documented in this encounter Care Teams Gamma Operator Relationship Specialty Start Date End Date Aleksey Smiht MD [address] [place] [address] PCP - General 02/09/13 documented as of this encounter
--- OUTSIDE RECORDS SUMMARY | 2023-10-27 17:11 | XMS_ITS | Encounter Summary ---
Author Organization [facility] Address [address] [place] [address] Care Team Providers Care Cleaner And Polisher Name Role Phone Aleksey Smith MD Primary Care Provider +1- [phone] Encounter Details Date Type Department Care Team (Late st Contact Info) Description 03/22/2021 Lab Requisition [facility] [address] [facility] [place] [address] Azael Regan, [facility] [address] [place], [place] [id number] Unspecified atrial fibrillation (HRC) Social History Tobacco [...] Info) Description 11/11/2023 10:20 AM CDT Appointment [facility] [address] [facility] [address] [facility] [place] [address] Leticia Jim MD [address] [facility] [address] documented as of this encounter Procedures Procedure Name Priority Date/Time Associated Diagnosis Comments INR/PROTIME Routine 04/04/2021 10:15 AM CDT Unspecified atrial fibrillation (HRC) documented in this encounter Results * (ABNORMAL) INR/Protime (04/04/2021 10:15 AM CDT) Protime 24.7(H) 11.8 - 14.6 Seconds 04/04/2021 1:30 PM CDT [facility] INR 2.3(H) 0.9 - 1.1 04/04/2021 1:30 PM CDT [facility] Blood Venipuncture / Unknown 04/04/2021 10:15 AM CDT 04/04/2021 1:04 PM CDT Narrative [facility] - 04/04/2021 1:30 PM CDT Therapeutic range determined by protocol established by anticoagulation provider. Azael Regan DO [facility] [address] documented in this encounter Visit Diagnoses Diagnosis Unspecified atrial fibrillation (HRC) documented in this encounter Care Teams Cleaner And Polisher Relationship Specialty Start Date End Date Aleksey Smith MD [address] [place] [address] PCP - General 02/09/13 documented as of this encounter
--- OUTSIDE RECORDS SUMMARY | 2023-10-27 17:11 | XMS_ITS | Encounter Summary ---
Author Organization [facility] Address [address] [place] [address] Care Team Providers Care Converter Supervisor Name Role Phone Aleksey Smith MD Primary Care Provider +1- [phone] Encounter Details Date Type Department Care Team (Late st Contact Info) Description 03/22/2021 Lab Requisition [facility] [address] [facility] [place] [address] Azael Regan, [facility] [address] [place], [place] [id number] Unspecified atrial fibrillation (HRC) Social History Tobacco [...] Info) Description 11/11/2023 10:20 AM CDT Appointment [facility] [address] [facility] [place] [address] Leticia Jim MD [address] [facility] [place] [address] documented as of this encounter Visit Diagnoses Diagnosis Unspecified atrial fibrillation (HRC) documented in this encounter Care Teams Converter Supervisor Relationship Specialty Start Date End Date Aleksey Smith MD [address] [place] [address] PCP - General 02/09/13 documented as of this encounter
--- OUTSIDE RECORDS SUMMARY | 2023-10-27 17:11 | XMS_ITS | Encounter Summary ---
Author Organization [facility] Address [address] [place] [address] Care Team Providers Care Surveying Crew Stake Runner Name Role Phone Aleksey Smith MD Primary Care Provider +1- [phone] Reason for Visit * Procedure/Equipment (Routine) - Incomplete Specialty Diagnoses / Procedures Referred By Katina t Referred To Contact Diagnoses History of lumbar fusion Chronic bilateral low back pain with left-sided sciatica (HRC) Procedures CT Lumbar Spine [place] [address] [place] [address] Referral ID Status Reason Start Date Expiration Date V isits Requested Visits Authorized [id number] Incomplete 07/09/2023 10/07/2024 1 1 Encounter Details Date Type Department Care Team (Latest Contact Info) Description 07/23/2023 11:20 AM MEDICATION SPECIALIST Ancillary Procedure [place] [facility] Scan [address] [place] [address] [place] [address] [place] [id number] History of lumbar fusion; Chronic bilateral low back pain with left-sided [...] Info) Description 11/11/2023 10:20 AM CDT Appointment [facility] [address] [place] [address] Leticia Jim MD [address] [facility] [place] [address] documented as of this encounter Procedures Procedure Name Priority Date/Time Associated Diagnosis Comments CT LUMBAR SPINE WO IV CONT Routine 07/23/2023 11:58 AM MEDICATION SPECIALIST History of lumbar fusion Chronic bilateral low back pain with left-sided sciatica (HRC) documented in this encounter Results * CT Lumbar Spine WO IV Cont (07/23/2023 11:58 AM MEDICATION SPECIALIST) Anatomical Region Laterality Modality Spine, L-Spine Computed Tomogra phy 07/23/2023 11:3 9 AM MEDICATION SPECIALIST Impressions 07/23/2023 2:30 PM MEDICATION SPECIALIST INDICATION: Increasing pain above fusion. ??Evaluate for adjacent segment disease. TECHNIQUE: Non-contrast CT scan of the lumbar spine with axial acquisition and 2-D reformatting. ?? COMPARISON: MRI lumbar spine 12/07/2019. FINDINGS: Sagittal: ??Five lumbar-type vertebral bodies. ??Normal vertebral body height. ??Substantial progression of disc space narrowing, endplate degeneration with endplate sclerosis, and disc vacuum phenomena at L2-3. Progression of grade 1 retrolisthesis of L2 on L3. Again identified are postoperative changes of discectomies with interbody spacers at L3-4, L4-5, and L5-S1 with solid bony fusion across the disc spaces. Anterior screw fixation at S1. Posterior beatris and pedicle screw fixation at L3-S1 bilaterally. Laminectomies at L3-4, L4-5, and L5-S1. Stability leads entering the dorsal spinal canal at T12-L1 extending cephalad. Multiple right renal cysts. Axial: T12-L1: Posterior osteophytic ridging. Mild spinal canal narrowing. Mild bilateral neural foraminal narrowing. L1-2: Posterior osteophytic ridging. Mild spinal canal narrowing. Mild bilateral neural foraminal narrowing. L2-3: Grade 1 retrolisthesis of L2 on L3. Posterior osteophytic ridging. Severe bilateral neural foraminal stenosis. Moderate spinal canal narrowing. ?? L3-4: Discectomy with posterior fusion and laminectomy. No neural foraminal or spinal canal narrowing. L4-5: Discectomy and posterior fusion and laminectomy. No neural foraminal or spinal canal narrowing. L5-S1: Discectomy with posterior and anterior fusion. Laminectomy. Mild right neural foraminal narrowing. ?? IMPRESSION: ?? 1. Comparison to MRI lumbar spine 12/07/2019 . 2. Substantial progression of endplate degeneration, disc space narrowing, and retrolisthesis at L2-3. 3. Stable postoperative changes at L3-4 through L5-S1 as above. 4. Slight progression of degenerative changes at T12-L1 and L1-2. Narrative Procedure Note Nick Martinez MD - 07/23/2023 IMPRESSION INDICATION: Increasing pain above fusion. Evaluate for adjacent segmentdisease. TECHNIQUE: Non-contrast CT scan of the lumbar spine with axial acquisitionand 2- D reformatting. COMPARISON: MRI lumbar spine 12/07/2019. FINDINGS: Sagittal: Five lumbar-type vertebral bodies. Normal vertebral bodyheight. Substantial progression of disc space narrowing, endplatedegeneration with endplate sclerosis, and disc vacuum phenomena at L2-3.Progression of grade 1 retrolisthesis of L2 on L3. Again identified arepostoperative changes of discectomies with interbody spacers at L3-4,L4-5, and L5-S1 with solid bony fusion across the disc spaces. Anteriorscrew fixation at S1. Posterior beatris and pedicle screw fixation at L3-G5bpoecuifdrm. Laminectomies at L3-4, L4-5, and L5-S1. Stability leadsentering the dorsal spinal canal at T12-L1 extending cephalad. Multipleright renal cysts. Axial: T12-L1: Posterior osteophytic ridging. Mild spinal canal narrowing. Mildbilateral neural foraminal narrowing. L1-2: Posterior osteophytic ridging. Mild spinal canal narrowing. Mildbilateral neural foraminal narrowing. L2-3: Grade 1 retrolisthesis of L2 on L3. Posterior osteophytic ridging.Severe bilateral neural foraminal stenosis. Moderate spinal canalnarrowing. L3-4: Discectomy with posterior fusion and laminectomy. No neuralforaminal or spinal canal narrowing. L4-5: Discectomy and posterior fusion and laminectomy. No neural foraminalor spinal canal narrowing. L5-S1: Discectomy with posterior and anterior fusion. Laminectomy. Mildright neural foraminal narrowing. IMPRESSION: 1. Comparison to MRI lumbar spine 12/07/2019 . 2. Substantial progression of endplate degeneration, disc space narrowing,and retrolisthesis at L2-3. 3. Stable postoperative changes at L3-4 through L5-S1 as above. 4. Slight progression of degenerative changes at T12-L1 and L1-2. Mehrdad Torrez DO RAD CT documented in this encounter Visit Diagnoses Diagnosis History of lumbar fusion Chronic bilateral low back pain with left-sided sciatica (HRC) documented in this encounter Care Teams Surveying Crew Stake Runner Relationship Specialty Start Date End Date Aleksey [place] MD [address] [place] [address] PCP - General 02/09/13 documented as of this encounter
--- OUTSIDE RECORDS SUMMARY | 2023-10-27 17:11 | XMS_ITS | Encounter Summary ---
Author Organization [facility] Address [address] [place] [address] Care Team Providers Care Costume Mistress Name Role Phone Aleksey Smith MD Primary Care Provider +1- [phone] Encounter Details Date Type Department Care Team (Late st Contact Info) Description 03/28/2021 Lab Requisition [facility] [address] [facility] [place] [address] Azael Regan, [facility] [address] [place], [place] [address] Unspecified atrial fibrillation (HRC) Social History Tobacco [...] Info) Description 11/11/2023 10:20 AM CDT Appointment [facility] [address] [facility] [place] [address] Leticia Jim MD [address] [facility] [place] [address] documented as of this encounter Procedures Procedure Name Priority Date/Time Associated Diagnosis Comments INR/PROTIME Routine 04/02/2021 1:40 PM CDT Unspecified atrial fibrillation (HRC) documented in this encounter Results * (ABNORMAL) INR/Protime (04/02/2021 1:40 PM CDT) Protime 23.5(H) 11.8 - 14.6 Seconds 04/02/2021 4:52 PM CDT [facility] INR 2.2(H) 0.9 - 1.1 04/02/2021 4:52 PM CDT [facility] Blood Venipuncture / Unknown 04/02/2021 1:40 PM CDT 04/02/2021 4:14 PM CDT Narrative [facility] - 04/02/2021 4:52 PM CDT Therapeutic range determined by protocol established by anticoagulation provider. Azael Regan DO [facility] [address] documented in this encounter Visit Diagnoses Diagnosis Unspecified atrial fibrillation (HRC) documented in this encounter Care Teams Costume Mistress Relationship Specialty Start Date End Date Aleksey Smith MD [address] [place] [address] PCP - General 02/09/13 documented as of this encounter
--- OUTSIDE RECORDS SUMMARY | 2023-10-27 17:11 | XMS_ITS | Encounter Summary ---
Author Organization [facility] Address [address] [place] [address] Care Team Providers Care Center Manager Name Role Phone Aleksey Smith MD Primary Care Provider +1- [phone] Reason for Visit * Reason Comments Injection Encounter Details Date Type Department Care Team (Late st Contact Info) Description 09/10/2023 Telephone [id number] PM&R Injections [address] [facility]. [place], [place] [id number] [place] [address] [place] [id number] Injection Social History Tobacco Use Types Packs/Day Years [...] Nursing Notes * Sarah Guerrero RN - 10/05/2023 9:41 AM CDT Spoke to nurse Quintero at [facility] whom gave approval to hold warfarin x 5 days. I talked to patient about INR check, she is going to have her INR drawn that morning at local clinic and come with those results due to her taxi ride is already lined up and she cannot change the time. She is aware INR needs to be around 1.1-1.3. Patient asked to have the nurse contacted at [facility] to advise about holding medication and INR draw. Faxed over to [facility] nurse Lis * Sarah Guerrero RN - 09/14/2023 2:26 PM CDT Called over to [facility] Hotline: [phone] to discuss if we can hold Warfarin x 5 days prior to Lumbar LEANDRA on 10/19/23. Aura, RN sent over a message to PCP about this hold. They will follow up with us. A message was left for the patient to return our call to confirm who prescribed Warfarin- [facility]. * Angel Morejon - 09/10/2023 12:41 PM CDT Patient is scheduled for an injection and is currently taking Warfarin- ok to lvm Please call patient to discuss whether they need to discontinue prioir to injection appt. Pt is also taking doxycyline. Please verify with pt. Pt states she has a script for oral sedation. Please confirm with pt for check in time. Thank you. documented in this encounter Plan of Treatment Upcoming Encounters Date Type Department Care Team (Late st Contact Info) Description 11/11/2023 10:20 AM CDT Appointment [place] [address] [place] [address]. [place] [address] Leticia Jim MD [address] [facility] [place] [address] documented as of this encounter Visit Diagnoses Not on filedocumented in this encounter Care Teams Center Manager Relationship Specialty Start Date End Date Aleksey [place] MD [address] [place] [address] PCP - General 02/09/13 documented as of this encounter
--- OUTSIDE RECORDS SUMMARY | 2023-10-27 17:11 | XMS_ITS | Clinical Summary ---
[facility] Organization [email or web address] Address [address] [place] [address] Care Team Providers Care Livestock Farmer Name Role Phone Aleksey Smith MD Primary Care Provider +1- [phone] Source Comments You are receiving this document as you are listed as the primary care provider,follow-up provider, or the patient has been referred to you for consultation.This is in compliance with the Medicare and[facility] EHR Incentive Program,which states Providers who transition their patient to another setting of careor provider of care or refers their patient to another provider of care shouldprovide summary care record for each transition of care or referral. [employer] Liaison Allergies Active Allergy Reactions Criticality Noted Date [...] 0.1 % nasal solutionIndications :Vasomotor Rhinitis 1 [place] by Nasal route. Indications: Nasal Mucous Membrane Swelling without Infection/Allergy 02/18/2016 Active simethicone (MYLICON) 125 MG chewable tabletIndications:F latulence Chew and swallow 1 Tablet (125 mg) by mouth every 6 hours as needed. Indications: Gas 07/02/2016 Active fluticasone (FLONASE) 50 MCG/ACT nasal solutionIndications :Nasal Signs and Symptoms 2 Sprays by Nasal route two times a day. Indications: Signs and Symptoms of Nose Diseases 06/26/2016 Active blood glucose (TRUETEST TEST) test strip Dispense test strips covered by insurance 01/20/2016 Active Blood Glucose Monitoring Suppl (FIFTY50 GLUCOSE METER 2.0) W/DEVICE KIT Dispense meter, test strips, lancets covered by pt ins. E11.9 NIDDM type II - Test two times per week 09/15/2016 Active polyethylene glycol-propylene glycol (SYSTANE) 0.4-0.3 % eye drop solutionIndications :Xerophthalmia (Dry Eye) Place 1-2 Drops into both eyes three times a day as needed. Indications: Excessive Cornea and Conjunctiva Dryness 05/06/2016 Active cyanocobalamin (OPDDTEBF39) 1000 MCG/ML injectionIndication s:Vitamin B12 Deficiency Inject 1,000 mcg intramuscularly every 30 days. Indications: Inadequate Vitamin B12 12/14/2016 Active triamcinolone acetonide (KENALOG) 0.1 % ointment Apply topically. 11/20/2016 Acti ve polyethylene glycol (MIRALAX) packetIndications:C onstipation Take 17 g by mouth daily. Indications: Constipation 09/25/2016 Active multivitamin (THERAGRAN) tabletIndications:s upplement Take 1 Tablet by mouth daily. Indications: supplement 09/08/2016 Active tamsulosin (FLOMAX) 0.4 MG CAPS capsuleIndications: Urinary Frequency Take 1 Capsule (0.4 mg) by mouth daily. Indications: Urinary Frequency Active ketoconazole (NIZORAL) 2 % shampooIndications: Seborrheic Dermatitis of Scalp Apply topically daily as needed. Indications: Dandruff Active ALBUterol sulfate HFA 108 (90 BASE) MCG/ACT inhaler Inhale 1-2 Puffs every 4 hours as needed for Wheezing. Active budesonide-formoter ol (SYMBICORT) 80-4.5 MCG/ACT inhalerIndications: Lung Health Inhale 2 Puffs two times a day. Rinse mouth/gargle after use. Indications: Lung Health Active calcium carbonate-vitamin D (OSCAL 500/200 D-3) 500-200 MG-UNIT per tablet Take 1 Tablet by mouth two times a day with meals. Active magnesium hydroxide (MILK OF MAGNESIA) 400 MG/5ML suspensionIndicatio ns:constipation Take 15-30 mL by mouth daily as needed for Constipation. Indications: constipation Active cholecalciferol (VITAMIN D3) 1000 UNITS tabletIndications:s upplement Take 1 Tablet (1,000 Units) by mouth daily. Indications: supplement Active senna (SENOKOT) 8.6 MG tabletIndications:C onstipation Take 1 Tab by mouth daily. Take while on narcotics. Hold for loose stools. Indications: Constipation 30 Tab 03/17/2017 Active acetaminophen (TYLENOL) 325 MG tabletIndications:P ain Take 2 Tabs by mouth 4 times a day. 24 hour limit of acetaminophen (TYLENOL) is 4000mg. Each tablet contains 325mg of acetaminophen. Please be aware of acetaminophen limit when taking other medications that contain acetaminophen. Indications: Pain 100 Tab 03/17/2017 Active amphetamine-dextroa mphetamine (ADDERALLXR) 30 MG 24 hour release capsuleIndications: Attention Deficit Hyperactivity Disorder Take 1 Cap by mouth daily. Indications: Attention Deficit Hyperactivity Disorder 30 Cap 03/17/2017 Active furosemide (LASIX) 40 MG tabletIndications:H ypertension Take 0.5 Tablets (20 mg) by mouth daily. Indications: High Blood Pressure Disorder 03/17/2017 Active sertraline (ZOLOFT) 100 MG tabletIndications:M ood Take 2 Tabs by mouth daily. Indications: Mood 30 Tab 03/17/2017 Active zolpidem (AMBIEN) 5 MG tabletIndications:I nsomnia Take 1 Tab by mouth daily at bedtime. Indications: Trouble Sleeping 15 Tab 03/17/2017 Active benzonatate (TESSALON) 100 MG capsule Take 1 Cap by mouth three times a day as needed for Cough. 30 Cap 03/26/2017 Active dextromethorphan-gu aifenesin (ROBITUSSIN-DM) 10-100 MG/5ML syrupIndications:Co ugh Take 10 mL by mouth every 4 hours as needed. Indications: Cough 236 mL 03/26/2017 Active hydrOXYzine pamoate (VISTARIL) 50 MG capsule Take 1 Cap by mouth three times a day as needed for Itching, Anxiety or Other (pain). 90 Cap 03/26/2017 Active ipratropium-albuter ol (DUONEB) 0.5-2.5 MG/3ML nebulizer solution Inhale 3 mL every 6 hours as needed. 60 Each 1 03/26/2017 Active ammonium lactate (LAC-HYDRIN) 12 % lotion Apply topically. 07/19/2019 Active amiodarone (PACERONE) 200 MG tablet Take 1 Tablet (200 mg) by mouth. 02/07/2019 Active ALMACONE II 400-400-40 MG/5ML suspension 09/19/2019 Active aluminum & magnesium hydroxide (ALAMAG) 200-200 MG/5ML suspension Take 30 mL by mouth. Active atorvastatin (LIPITOR) 40 MG tablet Take 1 Tablet (40 mg) by mouth. 01/13/2018 Active Blood Gluc Meter Disp-Strips (Mobile Multimedia) Check blood sugar every Thursday and at rotating times Dispense item covered by pt ins. E11.65 NIDDM type II, controlled 06/06/2019 Active calcium carbonate (TITRALAC) 1250 MG/5ML One teaspoon once a day Indications: low amount of calcium in the blood 07/14/2017 Active chlorhexidine gluconate (PERIDEX) 0.12 % solution RINSE WITH ONE CAPFUL FOR 30 SECONDS TWICE DAILY 01/22/2019 Active diphenhydrAMINE (BENADRYL) 25 MG capsule Take 1 Capsule (25 mg) by mouth. 06/08/2019 Active BANOPHEN 25 MG capsule 11/20/2019 Active estradiol (ESTRACE) 0.1 MG/GM vaginal cream Insert one gram into vagina twice a week. 08/20/2019 Active estrogens, conjugated (PREMARIN) 0.625 MG/GM vaginal cream INSERT ONE APPLICATORFUL INTO THE VAGINA AT BEDTIME TWICE A WEEK 05/26/2019 Active hydrocortisone 1 % ointment Apply topically. 06/29/2019 Active ibuprofen (MOTRIN) 600 MG tablet Take 1 Tablet (600 mg) by mouth. 03/14/2019 Active Incontinence Supply Disposable (DEPEND FITTED BRIEFS SM/MED) MISC For home use. Will use 2 per day. Size large. 04/28/2018 Active ONETOUCH DELICA lancets TEST 2 TIMES PER WEEK 07/19/2017 Active Respiratory Therapy Supplies (AIRS DISPOSABLE NEBULIZER) For home use. Length of need: 12 months 03/16/2018 Active saline (SODIUM CHLORIDE) 0.65 % nasal solution by Nasal route. 01/25/2018 Activ e Sharps Container (LXNCEA-Y-SVFNK LOCKING BRACKET) MISC Length: calf Strength: 16-20 mmHg Circumference in cm: For calf: Ankle 12, Calf 18.5 , Ankle to calf length 12 . 03/15/2018 Active SYRINGE-NEEDLE, DISP, 3 ML (3CC SAFETY SYRINGE 47LN2-5/2) 21G X 1-1/2 3 ML As directed. 10/11/2019 Active terbinafine (LAMISIL) 1 % cream 11/23/2019 Activ e torsemide (DEMADEX) 20 MG tablet Take 2 Tablets (40 mg) by mouth. 02/08/2019 Active Vaginal Lubricant (REPLENS) Insert one applicator into vagina every three days as needed for vaginal dryness 09/23/2019 Active sertraline (ZOLOFT) 100 MG tablet Take 1 Tablet (100 mg) by mouth. Active XANAX 0.5 MG tablet Take 1 Tablet (0.5 mg) by mouth two times daily as needed. 06/18/2023 Active digoxin (LANOXIN) 125 MCG tablet Take 1 Tablet (125 mcg) by mouth daily. 06/29/2023 Active dextroamphetamine (DEXEDRINE) 5 MG tablet Take by mouth every 12 hours. Active haloperidol (HALDOL) 0.5 MG tablet Take 1 Tablet (0.5 mg) by mouth every 6 hours as needed. 06/18/2023 Active haloperidol (HALDOL) 1 MG tablet Take by mouth. 01/30/2023 Active HYDROmorphone (DILAUDID) 2 MG tablet Take 1 Tablet (2 mg) by mouth 4 times a day. 06/29/2023 Active lisinopril (ZESTRIL) 10 MG tablet Take 1 Tablet (10 mg) by mouth daily. 06/29/2023 Active loperamide (IMODIUM) 2 MG capsule Take by mouth. 01/30/2023 Active metFORMIN (GLUCOPHAGE) 500 MG tablet Take 1 Tablet (500 mg) by mouth. Active metoprolol succinate (TOPROL XL) 100 MG 24 hour release tablet Take 1 Tablet (100 mg) by mouth two times a day. 06/29/2023 Active mupirocin (BACTROBAN) 2 % ointment SMARTSI Application Topical 2-3 Times Daily 06/08/2023 Active omeprazole (PRILOSEC) 20 MG capsule Take 1 Capsule (20 mg) by mouth daily. 06/29/2023 Active ondansetron (ZOFRAN-ODT) 4 MG disintegrating tablet Take 1 Tablet (4 mg) by mouth. Active Pediatric Multiple Vitamins (FLINTSTONES PLUS EXTRA C) CHEW daily. Active rOPINIRole (REQUIP) 0.5 MG tablet Take by mouth daily. 07/08/2023 A ctive sennosides-docusate sodium (SENOKOT S) 8.6-50 MG per tablet Take 3 Tablets by mouth two times a day. Active JANTOVEN 3 MG tablet Take by mouth. 06/18/2023 Active diazePAM (VALIUM) 5 MG tablet Take one tablet 30 minutes prior to procedure. Bring the other tablet with you to the procedure and can repeat if needed. Do not take Dilaudid on the day of the procedure 2 Tablet 09/03/2023 Active methocarbamol (ROBAXIN) 500 MG tablet Take 1 Tablet (500 mg) by mouth two times daily as needed. 60 Tablet 1 10/05/2023 Active Active Problems Problem Noted Date Diagnosed [...] remission, unspecified 03/12/2017 GERD (gastroesophageal reflux disease) Mild persistent asthma 03/12/2017 Left glenohumeral DJD, advanced 01/22/2017 Chronic pain syndrome 12/31/2016 Encounters Date Type Department Care Team Description 10/07/2023 Telephone [facility] [address] [facility] [address] [facility] 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 [place] [address] Leticia Jim MD [address] [facility] [place] [address] Health Maintenance Due Date Last Done Comments Cervical Cancer Screening Due 1960 Colon Cancer Screening Plan Due 1960 Diabetes: Eye Exam 1960 Diabetes: Foot Exam 1960 Diabetes: Lipid Panel 1960 Diabetes: Urine Microalbumin 1960 Hep C Screening (Preventive Services) 1960 Diabetes: Creatinine 03/27/2018 03/27/2017, 03/26/2017, 03/25/2017, Additional history exists Mammogram 07/29/2020 07/29/2019, 02/2 12/2019, 03/05/2018 Zoster/Shingles (2 of 2) 03/05/2022 01/08/2022 COVID-19 Vaccine ( season) 2023 04/09/2022, 07/16/2020, 06/18/2020 Medicare Annual Wellness Visit 06/01/2023 Diabetes: HGBA1C 10/28/2023 07/30/2023, , 07/05/2021, Additional history exists Pneumococcal (3 - PPSV23 or PCV20) 01/23/2025 01/08/2022, 07/08/2001 DTaP/Tdap/Td (3 - Tdap) 06/24/2032 06/24/19 23, 09/02/2011, 07/25/2006 HIV Screening (Preventive Services) Completed 09/06/2015 Influenza Completed 04/08/2023, 04/02, 03/18/2021, Additional history exists HepA Aged Out No longer eligi ble [...] on patient's age to complete this topic Procedures Procedure Name Priority Date/Time Associated Diagnosis Comments XR SCOLIOSIS 2 VIEWS Routine 09/03/2023 2:53 PM CDT Lumbar pain Thoracic spine pain (HRC) HGB A1C (EXTERNAL RESULT) Routine 07/30/2023 4:48 PM JOGGLE PRESS OPERATOR MM MAMMOGRAM SCREENING BILAT W 3D RILEY W CAD Routine 07/29/2019 11:25 AM JOGGLE PRESS OPERATOR CREATININE / GFR Specified Time 03/27/2017 7:21 AM CDT from Last 3 Months or Most Recently Relevant to Health Maintenance Results * XR Scoliosis 2 Views (09/03/2023 2:53 PM CDT) Anatomical Region Laterality Modality Spine, C-Spine, T-Spine, L-Spine Digital Radiography 09/03/2023 2:33 PM CDT Impressions 09/03/2023 2:59 PM CDT COMPARISON: ??None. FINDINGS: There are 12 rib bearing and 5 lumbar type vertebral bodies. There are postsurgical changes in the lumbar spine consistent with posterior fusion spanning L3-S1. There is also a neurostimulator device with a lead in the central canal, terminating at roughly the T7-8 level. There is a slight curvature of the lumbar spine, convex to the left. This measures roughly 16 degrees from the top of T11 through the bottom of L3. Narrative Procedure Note Alexandria Grijalva MD - 09/03/2023 IMPRESSION COMPARISON: None. FINDINGS: There are 12 rib bearing and 5 lumbar type vertebral bodies.There are postsurgical changes in the lumbar spine consistent withposterior fusion spanning L3-S1. There is also a neurostimulator devicewith a lead in the central canal, terminating at roughly the T7-8 level.There is a slight curvature of the lumbar spine, convex to the left. Thismeasures roughly 16 degrees from the top of T11 through the bottom ofL3. Rodolfo Mccormick MD RAD GD * (ABNORMAL) Creatinine / GFR (03/27/2017 7:21 AM CDT) Creatinine Serum 0.47(L) 0.55 - 1.02 mg/dL PN SOFT Est GFR Am >60 >60 mL/min/1.7 3m2 PN SOFT Est GFR Non-Afr Am >60 >60 mL/min/1.7 3m2 PN SOFT Comment: Normal>60, moderate decrease 30 - 59, severe decrease 15 - 29, renal failure <15 mL/min/1.73 m2 NOTE: ??Choose the eGFR result above appropriate for the race of the patient. 03/27/2017 7:21 AM CDT 03/27/2017 7:42 AM CDT Narrative PN SOFT - 03/27/2017 8:12 AM CDT Performed at [address] [address] CLIA number [id number] Chay Spicer MD LAB_1 PN SOFT [address] [place] [phone] from Last 3 Months or Most Recently Relevant to Health Maintenance Advance Directives * Full Code (Latest Code Status on File) Date Activated Date Inactivated Comments 03/12/2017 11:58 AM 03/27/2017 1:30 PM Care Teams Livestock Farmer Relationship Specialty Start Date End Date Aleksey Smith MD [address] [place] [address] PCP - General 02/09/13
--- OUTSIDE RECORDS SUMMARY | 2023-10-27 17:11 | XMS_ITS | Encounter Summary ---
Author Organization [facility] Address [address] [place] [address] Care Team Providers Care Senior Construction Project Manager Name Role Phone Kinsey Villatoro M.D. Primary Care Provider [phone]- [phone] Encounter Details Date Type Department Care Team (Late st Contact Info) Description 07/29/2023 Orders Only Department of Family Medicine, [facility], in [address] [phone] Kinsey Villatoro M.D. [address] [place] [phone] Annual Medicare Examination Return (Primary Dx) Social History Tobacco Use Types [...] as of this encounter Visit Diagnoses Diagnosis Annual Medicare Examination Return- Primary documented in this encounter Care Teams Senior Construction Project Manager Relationship Specialty Start Date End Date Kinsey Villatoro M.D. [address] [phone] PCP - General Family Medicine 07/28/23 08/17/23 documented as of this encounter
--- OUTSIDE RECORDS SUMMARY | 2023-10-27 17:11 | XMS_ITS | Encounter Summary ---
Author Organization [facility] Address [address] [place] [address] Care Team Providers Care Key Cutter Name Role Phone Aleksey Smith MD Primary Care Provider [phone]- [phone] Encounter Details Date Type Department Care Team (Late st Contact Info) Description 04/10/2021 Lab Requisition [facility] [address] [facility] [place] [address] Azael Regan, [facility] [address] [place], [place] [phone] Unspecified atrial fibrillation (HRC) Social History Tobacco [...] Info) Description 11/11/2023 10:20 AM CDT Appointment [facility] [facility] [address] [facility] [place] [address] Leticia Jim MD [address] [facility] [place] [address] documented as of this encounter Visit Diagnoses Diagnosis Unspecified atrial fibrillation (HRC) documented in this encounter Care Teams Key Cutter Relationship Specialty Start Date End Date Aleksey Smith MD [address] [place] [address] PCP - General 02/09/13 documented as of this encounter
--- OUTSIDE RECORDS SUMMARY | 2023-10-27 17:11 | XMS_ITS | Encounter Summary ---
Author Organization [facility] Address [address] [place] [address] Care Team Providers Care Rehabilitation Technician Name Role Phone Elsewhere, Pcp Primary Care Provider Unavailabl e Encounter Details Date Type Department Care Team (Late st Contact Info) Description 01/04/2013 Historical Ophthalmology RST OPH Ronald Lucas O.D., Ph.D. Social History Tobacco Use Types Packs/Day Years Used Date Smoking Tobacco: Never Assessed Sex and Gender Information Value Date Recorded Sex Assigned at Not on file Gender Identity Female 08/13/2017 10:05 AM CDT Sexual Orientation Not on file documented as of this encounter Progress Notes * Ronald Lucas O.D., Ph.D. - 01/04/2013 1:05 PM CDT Eye General HISTORY OF PRESENT ILLNESS Eyes haven't been checked in a few years. Did have bifocals or a +2.5 OTC readers. Noticing the blur more up close but a distance. Feels that eyes are dry. Uses patinol about every other. Not using artifical tears but requests restasis. No double vision. No flashes. No eye pain other than the dry eye. Stable floaters. IMPRESSION / REPORT / PLAN #1 Borderline diabetes, no retinopathy #2 Refractive error (myopic astigmatism, presbyopia, anisometropia). Plan: spectacle prescription (Refraction 1) given. DIAGNOSIS #1 Borderline diabetes, no retinopathy #2 Refractive error (myopic astigmatism, presbyopia, anisometropia). [facility] Reports - EYEGEN Id: [id number] Status: Fnl documented in this encounter Plan of Treatment Not on file documented as of this encounter Visit Diagnoses Not on filedocumented in this encounter Care Teams Rehabilitation Technician Relationship Specialty Start Date End Date Elsewhere, Pcp PCP - General Internal Medicine 08/18/23 documented as of this encounter
--- OUTSIDE RECORDS SUMMARY | 2023-10-27 17:11 | XMS_ITS | Encounter Summary ---
Author Organization [facility] Address [address] [facility] [place] [address] Care Team Providers Care Hardware Sales Assistant Name Role Phone Aleksey Smith MD Primary Care Provider +1- [phone] Reason for Visit * Reason Comments Injection Encounter Details Date Type Department Care Team (Late st Contact Info) Description 10/07/2023 Telephone [facility] [address] Rehabilitative Medicine [address] [facility] [place] [address] [place] [address] [place] [id number] Injection Social History Tobacco Use Types Packs/Day [...] as of this encounter Nursing Notes * Sandra Dubose RN - 10/16/2023 9:08 AM CDT Attempted to call pt. Unable to LM. Pt does have an appt with Dr. Duenas next week on 10/20. Closingencounter. * Greta Ford RN - 10/07/2023 1:15 PM CDT A message was left for the patient to return our call. Please inform patient that it will be about 6-8 weeks before we can get her scheduled for LEANDRA with IV sedation. If she hopes to get in sooner, we can fax order over to [facility] if they can schedule her sooner. * Shelley Diego - 10/07/2023 12:58 PM CDT Brandee is calling in wondering if we can place a new referral for her spinal injection to be done with IV sedation. She's no longer interested in having the injection with oral sedation. She is aware that her current appt (30 min duration) will need to be rescheduled into a longer appt slot. Thanks. Shelley Diego 10/07/2023, 1:01 PM documented in this encounter Plan of Treatment Upcoming Encounters Date Type Department Care Team (Late st Contact Info) Description 11/11/2023 10:20 AM CDT Appointment [place] [id number] [place] [address] Leticia Jim MD [address] [facility] [place] [address] documented as of this encounter Visit Diagnoses Not on filedocumented in this encounter Care Teams Hardware Sales Assistant Relationship Specialty Start Date End Date Aleksey Smith MD [address] [place] [address] PCP - General 02/09/13 documented as of this encounter
--- OUTSIDE RECORDS SUMMARY | 2023-10-27 17:11 | XMS_ITS | Encounter Summary ---
Author Organization [facility] Address [address] [place] [address] Care Team Providers Care Netsuite Developer Name Role Phone Elsewhere, Pcp Primary Care Provider Unavailabl e Reason for Visit * Reason Onset Date Comments Appointment 07/28/2023 Request came in from call center staff Encounter Details Date Type Department Care Team (Latest Contact Info) Description 07/28/2023 Clinical Communication Department of Family Medicine, [facility], in [address] [phone] Kinsey Villatoro M.D. [address] [place] [phone] Appointment (Request came in from call center staff ) Social History Tobacco Use Types Packs/Day [...] on filedocumented in this encounter Care Teams Netsuite Developer Relationship Specialty Start Date End Date Elsewhere, Pcp PCP - General Internal Medicine 08/18/23 documented as of this encounter
--- OUTSIDE RECORDS SUMMARY | 2023-10-27 17:11 | XMS_ITS | Encounter Summary ---
Author Organization [facility] Address [address] [place] [address] Care Team Providers Care Production Material Handler Name Role Phone Aleksey Smith MD Primary Care Provider +1- [phone] Reason for Visit * Procedure/Equipment (Routine) - Incomplete Specialty Diagnoses / Procedures Referred By Contac t Referred To Contact Diagnoses Lumbar pain Thoracic spine pain (HRC) Procedures XR Scoliosis 2 Views Rodolfo Mccormick MD [address] [facility] [address] [place] [address] Referral ID Status Reason Start Date Expiration Date V isits Requested Visits Authorized [id number] Incomplete 08/27/2023 11/25/2024 1 1 Encounter Details Date Type Department Care Team (Latest Contact Info) Description 09/03/2023 2:35 PM CDT Ancillary Procedure [facility] [address] Radiology [address] [place] [address] Rodolfo Mccormick MD [address] [facility] [address] [place] [address] Lumbar pain; Thoracic spine pain (HRC) Social History Tobacco Use Types Packs/Day [...] Info) Description 11/11/2023 10:20 AM CDT Appointment [facility] [address] [facility] [address] [place] [address] Leticia Jim MD [address] [place] [address] documented as of this encounter Procedures Procedure Name Priority Date/Time Associated Diagnosis Comments XR SCOLIOSIS 2 VIEWS Routine 09/03/2023 2:53 PM CDT Lumbar pain Thoracic spine pain (HRC) documented in this encounter Results * XR Scoliosis 2 Views (09/03/2023 [...] bottom ofL3. Rodolfo Mccormick MD RAD GD documented in this encounter Visit Diagnoses Diagnosis Lumbar pain Lumbago Thoracic spine pain (HRC) Pain in thoracic spine documented in this encounter Care Teams Production Material Handler Relationship Specialty Start Date End Date Aleksey Smith MD [address] [place] [address] PCP - General 02/09/13 documented as of this encounter
--- OUTSIDE RECORDS SUMMARY | 2023-10-27 17:12 | XMS_ITS | Encounter Summary ---
Author Organization [facility] Address [address] [place] [address] Care Team Providers Care Deputy General Counsel Name Role Phone Aleksey Smith MD Primary Care Provider +1- [phone] Encounter Details Date Type Department Care Team (Late st Contact Info) Description 02/08/2021 Lab Requisition [facility] [address] [facility] [place] [address] Azael Regan, [facility] [address] [place], [place] [address] Unspecified atrial fibrillation (HRC) Social History Tobacco [...] Info) Description 11/11/2023 10:20 AM CDT Appointment [facility] [address] [facility] [address] [facility] [place] [address] Leticia Jim MD [address] [facility] [place] [address] documented as of this encounter Procedures Procedure Name Priority Date/Time Associated Diagnosis Comments INR/PROTIME Routine 02/14/2021 4:56 PM CDT Unspecified atrial fibrillation (HRC) documented in this encounter Results * (ABNORMAL) INR/Protime (02/14/2021 4:56 PM CDT) Protime 22.9(H) 11.8 - 14.6 Seconds 02/14/2021 7:53 PM CDT [facility] INR 2.1(H) 0.9 - 1.1 02/14/2021 7:53 PM CDT [facility] Blood Venipuncture / Unknown 02/14/2021 4:56 PM CDT 02/14/2021 7:23 PM CDT Narrative [facility] - 02/14/2021 7:53 PM CDT Therapeutic range determined by protocol established by anticoagulation provider. Azael Regan DO LAB_1 [facility] [address] documented in this encounter Visit Diagnoses Diagnosis Unspecified atrial fibrillation (HRC) documented in this encounter Care Teams Deputy General Counsel Relationship Specialty Start Date End Date Aleksey Smith MD [address] [place] [address] PCP - General 02/09/13 documented as of this encounter
--- OUTSIDE RECORDS SUMMARY | 2023-10-27 17:12 | XMS_ITS | Encounter Summary ---
Author Organization [facility] Address [address] [place] [address] Care Team Providers Care Santa'S Helper Name Role Phone Aleksey Smith MD Primary Care Provider +1- [phone] Encounter Details Date Type Department Care Team (Late st Contact Info) Description 02/28/2021 Lab Requisition [facility] [address] [facility] [place] [address] Azael Regan, [facility] [address] [place], [place] [address] Unspecified atrial fibrillation (HRC) Social History Tobacco [...] Info) Description 11/11/2023 10:20 AM CDT Appointment [facility] 3800 Pain [address] [facility] [place] [address] Leticia Jim MD [address] [facility] [place] [address] documented as of this encounter Visit Diagnoses Diagnosis Unspecified atrial fibrillation (HRC) documented in this encounter Care Teams Santa'S Helper Relationship Specialty Start Date End Date Aleksey Smith MD [address] [place] [address] PCP - General 02/09/13 documented as of this encounter
--- OUTSIDE RECORDS SUMMARY | 2023-10-27 17:12 | XMS_ITS | Encounter Summary ---
Author Organization [facility] Address [address] [place] [address] Care Team Providers Care Bridge Repair Crew Person Name Role Phone Aleksey Smith MD Primary Care Provider +1- [phone] Encounter Details Date Type Department Care Team (Late st Contact Info) Description 02/05/2021 Lab Requisition [facility] [address] [facility] [place] [address] Azael Regan, [facility] [address] [place] [address] Acute embolism and thrombosis of unspecified deep [...] [facility] Clinic [address] [place] [address] Leticia Jim MD [address] [place] [address] documented as of this encounter Procedures Procedure Name Priority Date/Time Associated Diagnosis Comments INR/PROTIME Routine 02/07/2021 3:35 PM CDT Acute embolism and thrombosis of unspecified deep veins of right lower extremity (HRC) documented in this encounter Results * (ABNORMAL) INR/Protime (02/07/2021 3:35 PM CDT) Protime 24.0(H) 11.8 - 14.6 Seconds 02/07/2021 5:27 PM CDT [facility] INR 2.2(H) 0.9 - 1.1 02/07/2021 5:27 PM CDT [facility] Blood Venipuncture / Unknown 02/07/2021 3:35 PM CDT 02/07/2021 5:03 PM CDT Narrative [facility] - 02/07/2021 5:27 PM CDT Therapeutic range determined by protocol established by anticoagulation provider. Azael Regan DO LAB_1 [facility] [address] [place], [place] [address] documented in this encounter Visit Diagnoses Diagnosis Acute embolism and thrombosis of unspecified deep veins of right lower extremity (HRC) documented in this encounter Care Teams Bridge Repair Crew Person Relationship Specialty Start Date End Date Aleksey Smith MD [address] [place] [address] PCP - General 02/09/13 documented as of this encounter
--- OUTSIDE RECORDS SUMMARY | 2023-10-27 17:12 | XMS_ITS | Encounter Summary ---
Author [facility] Address [address] [place] [address] Care Team Providers Care Breast Trimmer Name Role Phone Aleksey Smith MD Primary Care Provider +1- [phone] Encounter Details Date Type Department Care Team (Late st Contact Info) Description 02/07/2003 [facility] Duglas Murray MD [address] [place] [id number] BRIEF PSYCHOTIC DISORDER; AMPHETAMINE ABUSE UNSPECIFIED; SPECIAL [...] outpatient psychiatric medication management follow up at [facility] in [place], has been set for 02/22/2003, at 11:[address] Berkowitz. Cfp PATIENT IDENTIFICATION: The patient presents as a 43-year-old female admitted via [facility] emergency department on 02/07/03. The patient presents with continual symptoms of psychosis, not taking current medications, history of treatment for psychosis. She originally presented to [place] [facility]. Per the patient's brother, the [...] HOSPITAL COURSE: The patient is admitted to [address] on 02/07/03 via the emergency department. She originally presented at the [place] urgent care. She has been paranoid, fearing [...] prior to admission by a psychiatrist in [place], but compliance has been poor. She denies medical problems but does admit to hypertension. She has not been working since October but looking for a job. Medications are ordered, including Zoloft and Seroquel. Lasix and atenolol are also ordered. A chemical dependency evaluation is ordered, with consequent recommendations for chemical dependency treatment at [facility] post discharge from the hospital. The patient [...] process. She feels good about discharge to [facility] on this date. She has been very reasonable on the unit, getting clean, arranging her own followup appointments, less hostile, interacting with family members. On 02/14/03, the patient's discharge is approved. She will be entering chemical dependency at [facility] to have outpatient psychiatric medication management follow up via an [facility] clinic in [place]. The patient is arranging this follow up. DISCHARGE DIAGNOSIS Henderson I: Major depressive disorder. Polysubstance chemical dependency. Henderson II: Borderline personality disorder. Henderson III: History of hypertension, status post gastric bypass in August 2002. Henderson IV: Moderate psychosocial stressors. Henderson V: Global assessment of functioning is 51/100. [...] The patient is approved for discharge from [address] on 02/14/03. She will be entering chemical dependency treatment at [facility] on the date of discharge. She will have outpatient psychiatric medication management and outpatient therapy follow up via an [facility] health clinic at [place]. The patient is arranging this followup appointment herself. An addendum will be done to the discharge summary if the patient is able to give the name of the clinic for follow up prior to her discharge. llc Dictated: 02/14/2003 09:02:06 Champ Christianson MA, Transcribed: 02/14/2003 09:12:52 Staff: Duglas Murray MD Doc #: [id number] cc: Duglas Murray MD - Attending Dr Berkowitz, [facility] Page 2 Patient Name: BRANDEE GARCES DISCHARGE SUMMARY CONFIDENTIAL MEDICAL RECORD [address] [address] Page 1 Patient: BRANDEE GARCES Location: [facility] HPN: Admit Date: 02/07/2003 Date of [...] approximately 10 days ago by psychiatrist in [place], but compliance poor. Denies current medical problems, but does admit to hypertension. Not working since October, but looking for a job. Wants to be able to cope. ADMISSION DIAGNOSES Henderson I. Depression, not otherwise specified. 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 History of polysubstance abuse. Rule out panic disorder. Henderson II. Deferred. Henderson III. History of hypertension. Status post gastric bypass 08/2002. Henderson IV. Moderate psychosocial stressors. Henderson V. Overall Global Assessment of Functioning 25 [...] Chemical dependency consultation is ordered. [id number] [facility] HISTORY/PRESENTING ILLNESS: The patient presents as a 43-year-old female admitted via [facility] Emergency Department on 02/07/2003. Patient presents with continual symptoms of psychosis, not taking current medications, history of treatment for psychosis. Blood alcohol level in the emergency department was 0.1. Patient originally presented to [facility]. Per patient's brother, the patient [...] She had one chemical dependency treatment in [place] 5-6 years ago as an inpatient x 28 days. PAST PSYCHIATRIC HISTORY: She has seen a psychiatrist in [place], but does not remember the name. She does not have a current therapist. She was at [facility], hospitalized psychiatrically 5-6 years ago, most recently on 4 from 06/25/2001 to 06/30/2001 with a diagnosis of psychosis, not otherwise specified, and amphetamine dependence. No history for ECT. Past medications have included Neurontin, atenolol, Lasix, and albuterol inhaler. PAST MEDICAL HISTORY: She cites the [facility] as her outpatient provider. She has [...] and Ativan 2 mg at the [facility] prior to admission. The Risperdal was prescribed by a psychiatrist at [place]. Nonprescription medications/dietary supplements: None. REVIEW OF SYSTEMS: Remarkable for a history of gastritis. Remarkable for a history of asthma, currently stable. Status post gastric bypass in 08/2002. FAMILY HISTORY: Unremarkable except for a history of diabetes and hypertension in the family. SOCIAL HISTORY: Patient is the 3rd out of 6 children. She has 3 brothers and 2 sisters. She was raised in [place], [place], by her parents. Her father of a myocardial infarction in 01/2000. She is a high school graduate with one year of [employer] training. She is unemployed. She is a [...] at 21. ASSESSMENT: This is the second [facility] psychiatric admission for this 43-year-old female, most recently at [address] from 06/25/2001 to 06/30/2001 with diagnoses of psychosis, not otherwise specified, and amphetamine dependence. She currently presents via [facility] Emergency Department, originally presenting at the [facility]. Patient has been paranoid, fearing that people are after her, positive auditory hallucinations, specifically whispers stating you're . She has a remote history of cocaine usage, current methamphetamine use, and alcohol consumption when using methamphetamines. She has been seeing at times a psychiatrist in [place], most currently on Risperdal in the past 11/2 weeks. Patient did use alcohol prior to her admission. She is voluntary. PLAN: The patient is admitting to station [facility]. Routine safety precautions have been placed and will be discontinued as appropriate. Routine labs and psychological testing will be done. Patient education is done with regards to weston expectations, differential diagnosis and treatment options. Risks, benefits, and side effects of medications are reviewed with her. mf/trayf Dictated: 02/07/2003 08:03:00 Champ Christianson MA, MATY Transcribed: 02/07/2003 10:34:13 Duglas Murray MD Doc #: [id number] cc: Duglas Murray MD 2 Page 2 Patient Name: BRANDEE GARCES HISTORY & PHYSICAL CONFIDENTIAL MEDICAL RECORD [address] [address] Page 1 Patient: BRANDEE GARCES Location: [facility] HPN: Admit Date: 02/07/2003 Date of : 1960 HISTORY & PHYSICAL documented in this encounter ED Notes * Rhett Fink - 02/07/2003 12:00 AM CDTLog Number: [id number] COMPLAINT: Agitated. HISTORY OF PRESENT ILLNESS: The patient is a 43-year-old female who presented to the [facility] with paranoid behavior and agitated. She received [...] COURSE AND TREATMENT MANAGEMENT: I contacted [facility] who sent the patient here. The physician there states that the patient was acutely psychotic on arrival. She came with her daughters who brought her in. She has had a history of similar episodes due to amphetamine abuse here at [facility] on 06/2001. The patient also had an episode in the principal network engineer rig of outburst of psychosis. On arrival here she has been somewhat somnolent. She is arousable at the time of admission. She is able to walk and she is alert and oriented. Will go ahead and admit her to the hospital for further evaluation as she has been on some antipsychotic medications in the past and according to the family and the social science teacher I talked to, has not been taking them. The U-tox is positive for amphetamines. ADMISSION DIAGNOSES: 1. Psychosis NOS. 2. Amphetamine abuse. [facility] Dictated: 02/07/2003 06:55:19 Rhett Fink MD Transcribed: 02/07/2003 13:13:48 Staff: Doc #: [id number] cc: Duglas Murray MD Attending Page 2 Patient Name: BRANDEE GARCES Visit Date: 02/07/2003 EMERGENCY MEDICINE NOTE CONFIDENTIAL MEDICAL RECORD [address] [address] Page 1 Patient: BRANDEE GARCES Location: 5 HPN: Date of : 1960 Visit Date: 02/07/2003 EMERGENCY MEDICINE NOTE documented in this encounter Plan of Treatment Upcoming Encounters Date Type Department Care Team (Late st Contact Info) Description 11/11/2023 10:20 AM CDT Appointment [facility] 3800 Pain Clinic [address] [place], [place] [address] Leticia Jim MD [address] [place] [address] documented as of this encounter Visit Diagnoses Diagnosis Other and unspecified reactive psychosis Nondependent amphetamine or related acting sympathomimetic abuse, unspecified Other and unspecified special symptom or syndrome, not elsewhere classified Personal history of noncompliance with medical treatment, presenting hazards to health documented in this encounter Care Teams Breast Trimmer Relationship Specialty Start Date End Date Aleksey Smith MD [address] [place] [address] PCP - General 02/09/13 documented as of this encounter
--- OUTSIDE RECORDS SUMMARY | 2023-10-27 17:12 | XMS_ITS | Encounter Summary ---
Author Organization [facility] Address [address] [place] [address] Care Team Providers Care Load Blocker Name Role Phone Aleksey Smith MD Primary Care Provider +1- [phone] Encounter Details Date Type Department Care Team (Late st Contact Info) Description 12/16/2020 Lab Requisition [facility] [address] [facility] [place], [place] [address] Farshad Lopez MD [address] [facility] [address] [place], [place] [id number] Acute embolism and thrombosis of unspecified deep [...] Info) Description 11/11/2023 10:20 AM CDT Appointment [facility] 3800 Pain Clinic [address] [place] [address] Leticia Jim MD [address] [place] [address] documented as of this encounter Visit Diagnoses Diagnosis Acute embolism and thrombosis of unspecified deep veins of right lower extremity (HRC) documented in this encounter Care Teams Load Blocker Relationship Specialty Start Date End Date Aleksey Smith MD [address] [place] [address] PCP - General 02/09/13 documented as of this encounter
--- OUTSIDE RECORDS SUMMARY | 2023-10-27 17:12 | XMS_ITS | Encounter Summary ---
Author Organization [facility] Address [address] [place] [address] Care Team Providers Care Machine Deicer Element Winder Name Role Phone Aleksey Smith MD Primary Care Provider +1- [phone] Encounter Details Date Type Department Care Team (Late st Contact Info) Description 03/04/2021 Lab Requisition [facility] [address] [facility] [place] [address] Azael Regan, [facility] [address] [place], [place] [address] Unspecified atrial fibrillation (HRC) Social History Tobacco [...] Info) Description 11/11/2023 10:20 AM CDT Appointment [facility] 3800 Pain Clinic [address] [facility] [place] [address] Leticia Jim MD [address] [facility] [place] [address] documented as of this encounter Visit Diagnoses Diagnosis Unspecified atrial fibrillation (HRC) documented in this encounter Care Teams Machine Deicer Element Winder Relationship Specialty Start Date End Date Aleksey Smith MD [address] [place] [address] PCP - General 02/09/13 documented as of this encounter
--- OUTSIDE RECORDS SUMMARY | 2023-10-27 17:12 | XMS_ITS | Encounter Summary ---
Author Organization [facility] Address [address] [place] [address] Care Team Providers Care Nuclear Engineer Name Role Phone Aleksey Smith MD Primary Care Provider +1- [phone] Encounter Details Date Type Department Care Team (Late Contact Info) Description 2020 Lab Requisition [facility] [address] [place], [place] [address] Adams Regan MD [address] [facility] [address] [place] [address] Neoplasm of uncertain behavior of urethra Social [...] Info) Description 11/11/2023 10:20 AM CDT Appointment [facility] 3800 Pain Clinic 38[address] [place] [address] Leticia Jim MD [address] [facility] [place] [place] [address] documented as of this encounter Visit Diagnoses Diagnosis Neoplasm of uncertain behavior of urethra Neoplasm of uncertain behavior of other and unspecified urinary organs documented in this encounter Care Teams Nuclear Engineer Relationship Specialty Start Date End Date Aleksey Smith MD [address] [place] [address] PCP - General 02/09/13 documented as of this encounter
--- OUTSIDE RECORDS SUMMARY | 2023-10-27 17:12 | XMS_ITS | Continuity of Care Document ---
Author Organization [facility] Address [address] [place] [address] Care Team Providers Care Marketing Support Assistant Name Role Phone Simba Lowry CRNA Unavailable Unavailable Procedures Procedure Date ANESTH, HEAD/NECK/PTRUNK ANESTH PERC IMG TX SP PROC Advance Directives Directive Yes / No Effective Date File Name No Information Encounters Encounter Description Practice Location Reason(s) For Visit Diagnoses Date Provider Providers Copied on Encounter [facility], [address] [place] [address], [id number], [facility] No Information Alen Cottrell. [address] [place] [address], [id number], . tel:[phone] Referring Provider: Michelle Cummings, [address] [place], [address] . tel:[phone] [facility], [address] [place] [address], [id number], [facility] No Information Asad Ramirez. [address], [place], [place], [id number], . tel:[phone] Referring Provider: Too Del Cid, [address] [place], [address] . tel:[phone] Family History Family Member Type Diagnosis Age At Onset No Information Payers Payer name Insurance type Covered constitution party ID Authoriza tiada(s) No Information Social History Type Description Quantity [...]
--- OUTSIDE RECORDS SUMMARY | 2023-10-27 17:12 | XMS_ITS | Encounter Summary ---
Author Organization [facility] Address [address] [place] [address] Care Team Providers Care Quality Improvement Manager Name Role Phone Aleksey Smith MD Primary Care Provider +1- [phone] Encounter Details Date Type Department Care Team (Late st Contact Info) Description 01/23/2021 Lab Requisition [facility] [address] [facility] [place] [address] Azael Regan, [facility] [address] [place], [place] [address] Unspecified atrial fibrillation (HRC) Social History Tobacco [...] Info) Description 11/11/2023 10:20 AM CDT Appointment [facility] 3800 [address] [facility] [place] [address] Leticia Jim MD [address] [facility] [place] [address] documented as of this encounter Procedures Procedure Name Priority Date/Time Associated Diagnosis Comments INR/PROTIME Routine 2021 2:22 PM CDT Unspecified atrial fibrillation (HRC) documented in this encounter Results * (ABNORMAL) INR/Protime (2021 2:22 PM CDT) Protime 22.5(H) 11.8 - 14.6 Seconds 2021 5:08 PM CDT [facility] INR 2.0(H) 0.9 - 1.1 2021 5:08 PM CDT [facility] Blood Venipuncture / Unknown 2021 2:22 PM CDT 2021 4:34 PM CDT Narrative [facility] - 2021 5:08 PM CDT Therapeutic range determined by protocol established by anticoagulation provider. Azael Regan DO LAB_1 [facility] [address] documented in this encounter Visit Diagnoses Diagnosis Unspecified atrial fibrillation (HRC) documented in this encounter Care Teams Quality Improvement Manager Relationship Specialty Start Date End Date Aleksey Smith MD [address] [place] [address] PCP - General 02/09/13 documented as of this encounter
--- OUTSIDE RECORDS SUMMARY | 2023-10-27 17:12 | XMS_ITS | Continuity of Care Document ---
Author Organization [facility] Address [address] [place] [address] Phone Care Team Providers Care Binder Layer Name Role Phone Echo BOLES MD, Montserrat [...] by inhalation route 2 times every day - Active Lasix 40 mg tablet take [...] mg tablet - Active Nasonex 50 mcg/actuation [place] spray 2 spray by intranasal route every [...] Inj Anes Facet Jt; Lumb/sac-1st Level Se p Inj Anes Facet Jt; Lumb/sac-2nd Level Se [...] Date Provider Providers Copied on Encounter [facility] [place], [address] [facility], [facility] [address], [place], [address], [place] tel:[phone] [facility] [place] Other spondylosis, lumbar regionOther spondylosis, lumbosacral region -201 5 Echo Mariano. [address] [facility], [place], [address]. tel:[phone] Referring Provider: Montserrat Dodge MD, [address] [place] [facility], [place], [address]. tel:[phone] [facility], [address], [place], [place], [id number], [place] tel:[phone] [facility] [place] No Information 5 Echo Mariano. [address] [place], [address] [facility], [place], [address]. tel:[phone] Referring Provider: Azael Regan DO, [place], [address]. tel:[phone] [facility], [address], [place], [address], [place] tel:[phone] [facility] [place] Spondylosis without myelopathy or radiculopathy , lumbar regionSpondyl osis without myelopathy or radiculopathy , lumbosacral region 5 Echo Mariano. [address] [place], [address] [facility], [place], [address]. tel:[phone] Referring Provider: Montserrat Dodge MD, [address] [place] [facility], [place], [address]. tel:[phone] [facility], [address], [place], [place], [address], [place] tel:[phone] [facility] [place] No Information 5 Echo Mariano. [address] [place], [facility], [place], [address]. tel:[phone] Referring Provider: Azael Regan DO, [place], [address]. tel:[phone] [facility], [facility], [address], [place], [place], [id number], [place] tel:[phone] [facility] 7390 No Information Jan- 5 Brigida Hays. [address], [place], [place], [id number], [place]. tel:[phone] Referring Provider: Azael Regan DO, [address] [facility], [place], [address]. tel:[phone] [facility] [place], [address], [place], [address], [place] tel:[phone] [facility] [place] No Information 5 Echo Mariano. [address] [place], [address] [facility], [place], [address]. tel:[phone] Referring Provider: Montserrat Dodge MD, [address] [place] [facility], [place], [address]. tel:[phone] [facility] [place], [address], [place], [address], [place] tel:[phone] [facility] [place] No Information Dec- 5 Echo Mariano. [address] [place], [facility], [place], [address]. tel:[phone] Referring Provider: Montserrat Dodge MD, [address] [place] [facility], [place], [address]. tel:[phone] [facility], [facility], [address], [place], [place], [id number], [place] tel:[phone] [facility] [place] No Information 5 Echo Mariano. [address] [place], [facility], [place], [address]. tel:[phone] Referring Provider: Azael Regan DO, [place], [address]. tel:[phone] [facility], [address], [place], [address], [place] tel:[phone] [facility] [place] No Information 5 Echo Mariano. [address] [place], [facility], [place], [address]. tel:[phone] Referring Provider: Montserrat Dodge MD, [address] [place] [facility], [place], [address]. tel:[phone] [facility], [facility], [address], [place], [place], [address], [place] tel:[phone] [facility] [place] No Information 5 Echo Mariano. [address] [place], [facility], [place], [address]. tel:[phone] Referring Provider: Maure[place], [place], [address]. tel:[phone] New Pt Eval 45 Min [facility], [facility], [address], [place], [place], [id number], [place] tel:[phone] [facility] No Information 5 Echo Mariano. [address] [place], [facility], [place], [address]. tel:[phone] Referring Provider: Maureen [place]o [place], [place], [address]. tel:[phone] [facility], [address], [place], [place], [address], [place] tel:[phone] [facility] No Information 4 Shravan Arguello. [address] [place], [address], [place]. Family History Family Member Type Diagnosis Age At Onset N/A Problem (finding) No Significant Family H istory Payers Payer name Insurance type Covered alliance party ID Authoriza tiada(s) [employer] O [id number] Social History Type Description Quantity Date Captured [...]
--- OUTSIDE RECORDS SUMMARY | 2023-10-27 17:12 | XMS_ITS | Continuity of Care Document ---
Author Organization [facility] Address [address] [place] [address] Care Team Providers Care Cutter Finisher Name Role Phone [facility] Unavailable Unav ailable Procedures Procedure Date IMPLANT [...] Date Provider Providers Copied on Encounter [facility], [address] [place] [address], [id number], [facility] No Information [facility]. [address] [place], [place], [id number], [place]. tel:[phone] Referring Provider: Michelle Cummings, [address] [place], [address]. tel:[phone] [facility], [address] [place], [place], [id number], [facility] No Information [facility]. [address] [place] [address] [place], [place], [id number], [place]. tel:[phone] Referring Provider: Too Del Cid, [address] [place], [address]. tel:[phone] [facility], [address] [place], [place], [address], [facility] [place] No Information [facility]. [address] [place], [place], [id number], . tel:[phone] Referring Provider: Michelle Cummings, [address] [place], [address]. tel:[phone] Family History Family Member Type Diagnosis Age [...]
--- OUTSIDE RECORDS SUMMARY | 2023-10-27 17:12 | XMS_ITS | Encounter Summary ---
Author Organization [facility] Address [address] [place] [address] Care Team Providers Care Natural Gas Plant Supervisor Name Role Phone Aleksey Smith MD Primary Care Provider [phone] Encounter Details Date Type Department Care Team (Late st Contact Info) Description 02/22/2021 Lab Requisition [facility] [address] [place] [address] Azael Regan, [facility] [address] [place], [place] [address] Unspecified atrial fibrillation (HRC) Social History Tobacco [...] Info) Description 11/11/2023 10:20 AM CDT Appointment [facility] [address] [facility] [address] [facility] [place] [address] Leticia Jim MD [address] [facility] [place] [address] documented as of this encounter Visit Diagnoses Diagnosis Unspecified atrial fibrillation (HRC) documented in this encounter Care Teams Natural Gas Plant Supervisor Relationship Specialty Start Date End Date Aleksey Smith MD [address] [place] [address] PCP - General 02/09/13 documented as of this encounter
--- OUTSIDE RECORDS SUMMARY | 2023-10-27 17:12 | XMS_ITS | Encounter Summary ---
Author Organization [facility] Address [address] [place] [address] Care Team Providers Care Television Journalist Name Role Phone Aleksey Smith MD Primary Care Provider [phone] Encounter Details Date Type Department Care Team (Late Contact Info) Description 10/01/2020 Lab Requisition [facility] [address] [place] [address]. [place], [place] [address] Azael Regan, [facility] [address] [place], [place] [address] Personal history of transient ischemic attack (TIA), and cerebral infarction without residual deficits Social History Tobacco Use Types Packs/Day Years [...] Info) Description 11/11/2023 10:20 AM CDT Appointment [facility] [address] [facility] [address] [place] [facility] [place] [address] Leticia Jim MD [address] [place] [address] documented as of this encounter Procedures Procedure [...] Azael Regan DO LAB_1 [facility] [address] [place] [address], [facility] documented in this encounter Visit Diagnoses Diagnosis Personal history of transient ischemic attack (TIA), and cerebral infarction without residual deficits documented in this encounter Care Teams Television Journalist Relationship Specialty Start Date End Date Aleksey Smith MD [address] [place] [address] PCP - General 02/09/13 documented as of this encounter
--- OUTSIDE RECORDS SUMMARY | 2023-10-27 17:13 | XMS_ITS | Continuity of Care Document ---
Author Organization [facility] Address [address] [place] [address] Phone Care Team Providers Care Endoscopy Support Specialist Name Role Phone Odalys BOLES, Homar Unavailable [...] C, [address], [place], [place], [id number], [place] tel:[phone] [facility] No Information 8 Odalys Graf. [facility] [place], [address] [place] [address] [address], [place], [place], [address] , [place]. tel:[phone] [facility], [address], [place], [place], [id number], [place] tel:[phone] [facility] No Information 8 Odalys Graf. [facility], [address] [place] [address] [address], [place], [place], [address] , [place]. tel:[phone] [facility], [address], [place], [address], [place] tel:[phone] [facility] No Information 8 Rodrick Pop. [facility], [address], [place], [place], [address] , [place]. tel:[phone] Referring Provider: Homar Morrow, [facility] [place] [address] [place] [address] [address], [place], [address] . tel:[phone] [facility], [address], [place], [address], [place] tel:[phone] [facility] No Information 6 8 Odalys Graf. [facility], [address], [place], [address] , [place]. [phone] Referring Provider: Homar Morrow, [facility] [address], [place], [address] . tel:[phone] Office/Outpat ient Visit,Est, Mod [facility], [address], [place], [address], [place] tel:[phone] [facility] Spinal stenosis, lumbar region [address] [facility], [address], [place], [place], [address] , [place]. [phone] Referring Provider: Homar Morrow, [facility] [address], [place], [address] . tel:[phone] [facility], [address], [place], [address], [place] tel:[phone] [facility] Spinal stenosis, lumbar region 0201 6 Odalys Graf. [facility] [place], [address], [place], [address] , [place]. [phone] Referring Provider: Hoamr Morrow, [facility] [address], [place], [address] . tel:[phone] [facility], [address], [place], [address], [place] tel:[phone] [facility] Arthrodesis status 1-201 6 Odalys Graf. [facility] [place], [address], [place], [address] , [place]. tel:[phone] [facility], [address], [place], [id number], [place] tel:[phone] [facility] No Information Sep- 6 Odalys Rowlandin. [facility], [address], [place], [id number] , [place]. tel:[phone] Referring Provider: Homar Morrow, [facility] [address], [place], [address] . tel:[phone] Family History Family Member Type Diagnosis Age At Onset No Information Payers Payer name Insurance type Covered alliance party ID Authoreneida aaron(s) Medicare [id number] Social History Type Description Quantity Date Captured [...]
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
--- OUTSIDE RECORDS SUMMARY | 2023-10-27 17:13 | XMS_ITS | Continuity of Care Document ---
Author Organization [facility] rajiv Address [address] [place] [address] Phone Care Team Providers Care Lead Housekeeper Name Role Phone Dionte Granados Unavailable Unavailable [...] Psych Dx Eval OFFICE/OUTPATIENT VISIT, EST Drug test def 15-21 classes Drug Urine Toxology With Chromatography Foll-up eval q3mo opiod tx OFFICE VISIT, [...] eval q3mo opiod tx [facility] Post Op [place] No Charge For Visit Per Prov IMPLANT [...] Provider Providers Copied on Encounter OFFICE VISIT, [facility], [address] [place], [place], [id number] , [place] tel:[phone] [facility] [place] Widespread pain (chief complaint) Pain in right kneePain in left ankle and joints of left footRadiculopa thy, lumbar regionMyalgia, other sitePostlamine ctomy syndrome, not elsewhere classifiedLong term (current) use of opiate analgesic 3 Mayra Rapp. [address], [place], [place], [id number] , [place]. tel:[phone] anticoagulant prescriber: Aleksey Smith [address], [address]. tel:[phone] Provider: Too Del Cid, [address] [place], [address]. tel:[phone] OFFICE VISIT, [facility], [address] [place], [place], [id number] , [place] tel:[phone] [facility] Widespread pain (chief complaint) Postlaminectom y syndrome, not elsewhere classifiedRadi culopathy, lumbar regionMyalgia, other sitePain in left ankle and joints of left footPain in right kneeLong term (current) use of opiate analgesic 3 Shay Morales. [address] [place], [place], [id number] , [place]. tel:[phone] anticoagulant prescriber: Aleksey Smith [address], [address]. tel:[phone] [facility], [address] [place] [address], [id number] , [place] tel:[phone] [facility] [place] pain (chief complaint) Postlaminectom y syndrome, not elsewhere classified 2 Indu Dalal. [address] [place] [address], [id number] , [place]. tel:[phone] Psych Dx Eval [facility], [address] [place] [address], [id number] , [place] tel:[phone] Telehealth Pain disorder with related psychological factorsPost-tr aumatic stress disorder, unspecified 2 Tess Cristiano Peg. [address] [place] [address], [id number] , [place]. tel:[phone] Referring Provider: Too Del Cid, [address] [place] [address], [address]. tel:[phone] Psych Dx al [facility], [address] [place] [address], [id number] , [place] tel: [phone] Telehealth Pain disorder with related psychological factorsAnxiety disorder 2 Tess Cristiano Peg. [address] [place] [address], [id number] , [place]. tel:[phone] OFFICE/OUTPAT IENT VISIT, EST [facility], [address] [place] [address], [id number] , [place] tel: [phone] [facility] [place] Widespread pain (chief complaint) Pain in right hipPain in right kneePain in left ankle and joints of left footRadiculopa thy, lumbar regionPostlami nectomy syndrome, not elsewhere classifiedLong term (current) use of opiate analgesicMyalg ia, other site 2 Heriberto Gage. [address] [place] [address], [id number] , [place]. tel:[phone] anticoagulant prescriber: Aleksey Smith, [address], [address]. tel:[phone] Provider: Too Del Cid, [address] [place] [address], [address]. tel:[phone] OFFICE VISIT, EST TELEMEDICINE [facility], [address] [place] [address], [id number] , [place] tel:[phone] [facility] Back Pain (chief complaint) Pain in right kneePain in left ankle and joints of left footRadiculopa thy, lumbar regionMyalgia, other sitePostlamine ctomy syndrome, not elsewhere classifiedLong term (current) use of opiate analgesicPain in right hip 2 Nunez Dionte. [address] [place] [address] [address], [place], [place], [id number] , [place]. tel:[phone] anticoagulant prescriber: Aleksey Smith, [address], [address]. tel:[phone] OFFICE VISIT, EST TELEMEDICINE [facility], [address] [place] [address], [id number] , [place] tel:[phone] [facility] Back Pain (chief complaint) Pain in right kneePain in left ankle and joints of left footRadiculopa thy, lumbar regionMyalgia, other sitePostlamine ctomy syndrome, not elsewhere classifiedLong term (current) use of opiate analgesic Mar- 2 Mayra Rapp. [address] [place] [address] [address], [place], [place], [id number] , [place]. tel:[phone] anticoagulant prescriber: Aleksey Smith, [address], [address]. tel:[phone] OFFICE VISIT, EST TELEMEDICINE [facility], [address] [place] [address], [id number] , [place] tel:[phone] [facility] Back Pain (chief complaint) Pain in right kneePain in left ankle and joints of left footRadiculopa thy, lumbar regionMyalgia, other sitePostlamine ctomy syndrome, not elsewhere classifiedLong term (current) use of opiate analgesic 2 Nuneznadeen Rapp. [address] [place] [address] [address], [place], [id number] , [place]. tel:[phone] Referring Provider: Too Del Cid, [address] [place] [address], [address]. tel:[phone] OFFICE/OUTPAT IENT VISIT, [facility], [address] [place] [address], [id number] , [place] [phone] [facility] Back Pain (chief complaint) Pain in right kneePain in right ankle and joints of right footPain in left ankle and joints of left footRadiculopa thy, lumbar regionMyalgia, other sitePostlamine ctomy syndrome, not elsewhere classifiedLong term (current) use of opiate analgesic 2 Mayra Wilburnel. [address] [place] [address] [address] [facility] [address], [place], [id number] , [place]. [phone] Referring Provider: Too Del Cid, [address] [place] [address], [address]. tel:[phone] [facility], [address] [place] [address], [id number] , [place] tel:[phone] [facility] No Information 2 Will Too. [address] [place] [address], [id number] , [place]. [phone] OFFICE/OUTPAT IENT VISIT, [facility], [address] [place] [address], [id number] , [place] tel:[phone] [facility] Back Pain (chief complaint) Pain in right shoulderPain in right kneePain in right ankle and joints of right footPain in left ankle and joints of left footRadiculopa thy, lumbar regionMyalgia, other sitePostlamine ctomy syndrome, not elsewhere classifiedLong term (current) use of opiate analgesic 2 Nunezjonny Rapp. [address] [place] [address] [address], [place], [id number] , [place]. tel:[phone] Referring Provider: Too Del Cid, [address] [place] [address], [address]. tel:[phone] OFFICE/OUTPAT IENT VISIT, [facility], [address] [place] [address], [id number] , [place] [phone] [facility] Back Pain (chief complaint) Chronic migraine without aura, intractable, without status migrainosusPai n in right shoulderPain in right kneePain in right ankle and joints of right footPain in left ankle and joints of left footRadiculopa thy, lumbar regionMyalgia, other sitePostlamine ctomy syndrome, not elsewhere classifiedLong term (current) use of opiate analgesicSpond ylosis without myelopathy or radiculopathy, lumbar region 2 Mayra Rapp. [address] [place] [address] [address], [place], [id number] , [place]. [phone] Referring Provider: Too Del Cid, [address] [place] [address], [address]. tel:[phone] OFFICE VISIT, EST [facility], [address] [place] [address], [id number] , [place] [phone] [facility] Back Pain (chief complaint) Chronic migraine without aura, intractable, without status migrainosusPai n in right shoulderPain in right kneeRadiculopa thy, lumbar regionMyalgia, other sitePostlamine ctomy syndrome, not elsewhere classifiedLong term (current) use of opiate analgesicPain in left ankle and joints of left footPain in right ankle and joints of right foot 2 Mayra Rapp. [address] [place] [address] [address], [place], [id number] , [place]. tel:[phone] OFFICE/OUTPAT IENT VISIT, [facility], [address] [place] [address], [id number] , [place] [phone] [facility] Back Pain (chief complaint) Myalgia, other sitePain in right shoulderPain in right kneeRadiculopa thy, lumbar regionPostlami nectomy syndrome, not elsewhere classifiedLong term (current) use of opiate analgesicChron ic migraine without aura, intractable, without status migrainosus 2 Mayra Rapp. [address] [place] [address] [address], [place], [place], [id number] , [place]. tel:[phone] Referring Provider: Too Del Cid, [address] [place] [address], [address]. tel:[phone] [facility], [address] [place] [address], [id number] , [place] tel:[phone] [facility] [place] No Information 2 Will Too. [address] [place] [address], [id number] , [place]. tel:[phone] [facility], [address] [place] [address], [id number] , [place] tel:[phone] [facility] No Information 2 Mayra Rapp. [address] [place] [address] [address], [place], [place], [id number] , [place]. tel:[phone] Referring Provider: Too Del Cdi, [address] [place] [address], [address]. tel:[phone] OFFICE/OUTPAT IENT VISIT, EST [facility], [address] [place] [address], [id number] , [place] tel:[phone] [facility] Back Pain (chief complaint) Radiculopathy, lumbar regionMyalgia, other sitePostlamine ctomy syndrome, not elsewhere classifiedLong term (current) use of opiate analgesicEncou nter for therapeutic drug level monitoringEnco unter for screening for other disorderPain in right shoulderPain in right knee 2 Mayra Rapp. [address] [place] [address] [address], [place], [place], [id number] , [place]. tel:[phone] Referring Provider: Caleb Ontiveros, [address], [place], [address]. tel:[phone] OFFICE VISIT, [facility], [address] [place] [address], [id number] , [place] tel:[phone] [facility] Back Pain (chief complaint) Postlaminectom y syndrome, not elsewhere classifiedRadi culopathy, lumbar regionMyalgia, other siteLong term (current) use of opiate analgesic 0- 2 Mayra Rapp. [address] [place] [address] [address], [place], [place], [id number] , [place]. tel:[phone] Referring Provider: Too Del Cid, [address] [place] [address], [address]. tel:[phone] OFFICE/OUTPAT IENT VISIT, [facility], [address] [place] [address], [id number] , [place] tel:[phone] [facility] Back Pain (chief complaint) Myalgia, other sitePostlamine ctomy syndrome, not elsewhere classifiedRadi culopathy, lumbar regionLong term (current) use of opiate analgesic May- 1 Mayra Rapp. [address] [place] [address] [address], [place], [place], [id number] , [place]. tel:[phone] Referring Provider: Too Del Cid, [address] [place] [address], [address]. tel:[phone] OFFICE VISIT, [facility], [address] [place] [address], [id number] , [place] tel:[phone] [facility] low back pain (chief complaint) Radiculopathy, lumbar regionMyalgia, other siteLong term (current) use of opiate analgesicPostl aminectomy syndrome, not elsewhere classified Nov-0 - 1 Mayra Rapp. [address] [place] [address] [address], [place], [place], [id number] , [place]. tel:[phone] Referring Provider: Too Del Cid, [address] [place] [address], [address]. tel:[phone] [facility], [address] [place] [address], [id number] , [place] tel:[phone] [facility] Postlaminectom y syndrome, not elsewhere classified 1 Nunez Dionte. [address] [place] [address] [address], [place], [place], [id number] , [place]. tel: [phone] Referring Provider: Too Del Cid, [address] [place] [address], [address]. tel:[phone] OFFICE/OUTPAT IENT VISIT, EST [facility], [address] [place] [address], [id number] , [place] tel:[phone] [facility] Widespread pain (chief complaint) Postlaminectom y syndrome, not elsewhere classifiedRadi culopathy, lumbar regionMyalgia, other siteLong term (current) use of opiate analgesic 1 Mayra Rapp. [address] [place] [address] [address], [place], [place], [id number] , [place]. tel:[phone] Referring Provider: Too Del Cid, [address] [place] [address], [address]. [phone] [facility], [address] [place] [address], [id number] , [place] tel: [phone] [facility] No Information 1 Nunez Dionte. [address] [place] [address] [address], [place], [place], [id number] , [place]. tel: [phone] Referring Provider: Too Del Cid, [address] [place] [address], [address]. tel:[phone] OFFICE/OUTPAT IENT VISIT, [facility], [address] [place] [address], [id number] , [place] tel: [phone] [facility] Widespread pain (chief complaint) Postlaminectom y syndrome, not elsewhere classifiedRadi culopathy, lumbar regionMyalgia, other siteLong term (current) use of opiate analgesic 1 Mayra Rapp. [address] [place] [address] [address], [place], [place], [id number] , [place]. [phone] Referring Provider: Too Del Cid, [address] [place] [address], [address]. tel:[phone] OFFICE/OUTPAT IENT VISIT, [facility], [address] [place] [address], [id number] , [place] [phone] [facility] Widespread pain (chief complaint) Postlaminectom y syndrome, not elsewhere classifiedRadi culopathy, lumbar regionMyalgia, other siteLong term (current) use of opiate analgesic 1 Mayra Rapp. [address] [place] [address] [address], [place], [place], [id number] , [place]. [phone] Referring Provider: Too Del Cid, [address] [place] [address], [address]. tel:[phone] [place] [address] [facility], [address] [place] [address], [id number] , [place] [phone] [facility] Postlaminectom y syndrome, not elsewhere classified 1 Mayra Rapp. [address] [place] [address] [address], [place], [place], [id number] , [place]. [phone] Referring Provider: Too Del Cid, [address] [place] [address], [address]. tel:[phone] OFFICE/OUTPAT IENT VISIT, [facility], [address] [place] [address], [id number] , [place] tel:[phone] [facility] Widespread pain (chief complaint) Radiculopathy, lumbar regionMyalgia, other siteLong term (current) use of opiate analgesicPostl aminectomy syndrome, not elsewhere classified 1 Mayra Rapp. [address] [place] [address] [address], [place], [place], [id number] , [place]. tel:[phone] Referring Provider: Too Del Cid, [address] [place] [address], [address]. [phone] [place] [address] [facility], [address] [place] [address], [id number] , [place] tel:[phone] [facility] Postlaminectom y syndrome, not elsewhere classified Apr-0 - 1 Mayra Rapp. [address] [place] [address] [address], [place], [place], [id number] , [place]. tel:[phone] Referring Provider: Too Del Cid, [address] [place] [address], [address]. [phone] OFFICE/OUTPAT IENT VISIT, [facility], [address] [place] [address], [id number] , [place] tel: [phone] [facility] Widespread pain (chief complaint) Postlaminectom y syndrome, not elsewhere classifiedRadi culopathy, lumbar regionMyalgia, other siteLong term (current) use of opiate analgesicEncou nter for screening for other disorder Apr-0 1 Mayra Rapp. [address] [place] [address] [address], [place], [place], [id number] , [place]. tel: [phone] Referring Provider: Too Del Cid, [address] [place] [address], [address]. tel:[phone] OFFICE/OUTPAT IENT VISIT, [facility], [address] [place] [address], [id number] , [place] tel: [phone] [facility] Widespread pain (chief complaint) Postlaminectom y syndrome, not elsewhere classifiedRadi culopathy, lumbar regionMyalgia, other siteLong term (current) use of opiate analgesic Mar-0 1 Mayra Rapp. [address] [place] [address] [address], [place], [place], [id number] , [place]. tel:[phone] Referring Provider: Too Del Cid, [address] [place] [address], [address]. tel:[phone] [facility], [address] [place] [address], [id number] , [place] tel:[phone] [facility] [place] Postlaminectom y syndrome, not elsewhere classified 1 Mayra Rapp. [address] [place] [address] [address], [place], [place], [id number] , [place]. [phone] Referring Provider: Too Del Cid, [address] [place] [address], [address]. tel:[phone] [facility], [address] [place] [address], [id number] , [place] tel:[phone] [facility] [place] No Information 1 Mayra Rapp. [address] [place] [address] [address], [place], [place], [id number] , [place]. tel:[phone] OFFICE/OUTPAT IENT VISIT, EST [facility], [address] [place] [address], [id number] , [place] tel:[phone] [facility] Widespread pain (chief complaint) Postlaminectom y syndrome, not elsewhere classifiedRadi culopathy, lumbar regionMyalgia, other siteLong term (current) use of opiate analgesicPain in right kneeChronic pain syndrome 1 Mayra Rapp. [address] [place] [address] [address], [place], [place], [id number] , [place]. tel:[phone] Referring Provider: Too Del Cid, [address] [place] [address], [address]. tel:[phone] OFFICE VISIT, EST TELEMEDICINE [facility], [address] [place] [address], [id number] , [place] tel:[phone] [facility] [place] Widespread pain (chief complaint) Postlaminectom y syndrome, not elsewhere classifiedRadi culopathy, lumbar regionMyalgia, other siteLong term (current) use of opiate analgesicPain in right kneeChronic pain syndrome 0 Mayra Rapp. [address] [facility] [address], [place], [place], [id number] , [place]. tel:[phone] Referring Provider: Too Del Cid, [address] [place] [address], [address]. tel:[phone] [facility], [address] [place] [address], [id number] , [place] tel:[phone] [facility] Postlaminectom y syndrome, not elsewhere classified 0 Mayra Rapp. [address] [place] [address] [address], [place], [place], [id number] , [place]. tel:[phone] Referring Provider: Too Del Cid, [address] [place] [address], [address]. tel:[phone] [facility], [address] [place] [address], [id number] , [place] tel:[phone] [facility] Postlaminectom y syndrome, not elsewhere classified 0 Emiliano Martinez. [address] [place] [address], [id number] , [place]. tel:[phone] Referring Provider: Too Del Cid, [address] [place] [address], [address]. tel:[phone] OFFICE VISIT, EST TELEMEDICINE [facility], [address] [place] [address], [id number] , [place] tel:[phone] [facility] Widespread pain (chief complaint) Radiculopathy, lumbar regionMyalgia, other siteLong term (current) use of opiate analgesicPain in right kneeChronic pain syndromePostla minectomy syndrome, not elsewhere classified 0 Mayra Rapp. [address] [facility] [address], [place], [place], [id number] , [place]. tel:[phone] Referring Provider: Too Del Cid, [address] [place] [address], [address]. tel:[phone] OFFICE/OUTPAT IENT VISIT, EST [facility], [address] [place] [address], [id number] , [place] tel: [phone] [facility] [place] Widespread pain (chief complaint) Myalgia, other siteRadiculopa thy, lumbar regionPostlami nectomy syndrome, not elsewhere classifiedLong term (current) use of opiate analgesicPain in right kneeChronic pain syndrome 0 Mayra Rapp. [address] [facility] [address], [place], [place], [id number] , [place]. tel: [phone] Referring Provider: Too Del Cid, [address] [place] [address], [address]. [phone] [place] [address] [facility], [address] [place] [address], [id number] , [place] tel: [phone] [facility] Postlaminectom y syndrome, not elsewhere classifiedMyal isabel, other site 0 Mayra Hays. [address] [facility] [address], [place], [place], [id number] , [place]. tel:[phone] Referring Provider: Too Del Cid, [address] [place] [address], [address]. tel:[phone] [facility], [address] [place] [address], [id number] , [place] tel:[phone] [facility] Radiculopathy, lumbar regionPostlami nectomy syndrome, not elsewhere classified 0 Mayra Rapp. [address] [facility] [address], [place], [place], [id number] , [place]. tel:[phone] Referring Provider: Too Del Cid, [address] [place] [address], [address]. tel:[phone] [facility], [address] [place] [address], [id number] , [place] tel:[phone] [facility] No Information 0 Heriberto Gage. [address] [place] [address], [id number] , [place]. tel:[phone] Referring Provider: Too Del Cid, [address] [place] [address], [address]. tel:[phone] OFFICE VISIT, EST TELEMEDICINE [facility], [address] [place] [address], [id number] , [place] tel:[phone] [facility] [place] Widespread pain (chief complaint) Radiculopathy, lumbar regionLong term (current) use of opiate analgesicMyalg ia, other sitePain in right kneeChronic pain syndromePostla minectomy syndrome, not elsewhere classified Sep-2 5-202 0 Mayra Rapp. [facility] [facility] [address], [place], [place], [id number] , [place]. tel:[phone] Referring Provider: Too Del Cid, [address] [place] [address], [address]. tel:[phone] [facility], [address] [place] [address], [id number] , [place] tel:[phone] [id number] [facility] Radiculopathy, lumbar region Sep-0 3-202 0 Cummings Michelle. [address] [place] [address], [id number] , [place]. tel:[phone] Referring Provider: Too Del Cid, [address] [place] [address], [address]. tel:[phone] [facility], [address] [place] [address], [id number] , [place] tel:[phone] [facility] No Information Sep-0 3-202 0 Cummings Michelle. [address] [place] [address], [id number] , [place]. tel:[phone] Referring Provider: Too Del Cid, [address] [place] [address], [id number]. tel:[phone] OFFICE VISIT, EST TELEMEDICINE [facility], [address] [place] [address], [id number] , [place] tel: [phone] [facility] [place] Widespread pain (chief complaint) Postlaminectom y syndrome, not elsewhere classifiedLong term (current) use of opiate analgesicRadic ulopathy, lumbar regionMyalgia, other sitePain in right kneeChronic pain syndrome 0 Nunez Dionte. [address] [place] [address] [address], [facility], [place], [id number] , [place]. tel:[phone] Referring Provider: Too Del Cid, [address] [place] [address], [address]. tel:[phone] [facility], [address] [place] [address], [id number] , [place] tel:[phone] [facility] [place] Postlaminectom y syndrome, not elsewhere classified 0 Nunez Dionte. [facility] [address], [facility], [place], [id number] , [place]. tel:[phone] OFFICE VISIT, EST TELEMEDICINE [facility], [address] [place] [address], [id number] , [place] tel: [phone] [facility] Widespread pain (chief complaint) Pain in right kneeChronic pain syndromePostla minectomy syndrome, not elsewhere classifiedLong term (current) use of opiate analgesicRadic ulopathy, lumbar regionMyalgia, other site 0 Nunez Dionte. [address] [place] [address] [address], [place], [place], [id number] , [place]. tel:[phone] Referring Provider: Too Del Cid, [address] [place] [address], [address]. tel:[phone] OFFICE VISIT, EST TELEMEDICINE [facility], [address] [place] [address], [id number] , [place] tel:[phone] Telehealth Widespread pain (chief complaint) Pain in right kneeChronic pain syndromePostla minectomy syndrome, not elsewhere classifiedLong term (current) use of opiate analgesicRadic ulopathy, lumbar regionMyalgia, other site 0 Nunez Dionte. [address] [place] [address] [address], [place], [place], [id number] , [place]. tel:[phone] Referring Provider: Too Del Cid, [address] [place] [address], [address]. tel:[phone] OFFICE VISIT, EST TELEMEDICINE [facility], [address] [place] [address], [id number] , [place] [phone] Telehealth Widespread pain (chief complaint) Postlaminectom y syndrome, not elsewhere classifiedPain in right kneeChronic pain syndromeLong term (current) use of opiate analgesicRadic ulopathy, lumbar regionMyalgia, other site 0 Mayra Rapp. [address] [place] [address] [address], [place], [place], [id number] , [place]. [phone] Referring Provider: Too Del Cid, [address] [place] [address], [id number]. tel:[phone] Psych Dx Eval [facility], [address] [place] [address], [id number] , [place] tel:[phone] Telehealth Pain disorder with related psychological factorsPost-tr aumatic stress disorder, unspecified 0 Tess Aguilar. [address] [place] [address], [id number] , [place]. tel:[phone] Referring Provider: Too Del Cid, [address] [place] [address], [address]. tel:[phone] OFFICE VISIT, EST TELEMEDICINE [facility], [address] [place] [address], [id number] , [place] tel:[phone] Telehealth Widespread pain (chief complaint) Chronic pain syndromePain in right kneePostlamine ctomy syndrome, not elsewhere classifiedLong term (current) use of opiate analgesicMyalg ia, other siteRadiculopa thy, lumbar region 0 Mayra Rapp. [address] [place] [address] [address], [place], [place], [id number] , [place]. tel:[phone] Referring Provider: Too Del Cid, [address] [place] [address], [address]. tel:[phone] OFFICE VISIT, [facility], [address] [place] [address], [id number] , [place] tel: [phone] Telehealth Widespread pain (chief complaint) Chronic pain syndromePain in right kneePostlamine ctomy syndrome, not elsewhere classifiedLong term (current) use of opiate analgesic Amos-0 - 0 Nunez Dionte. [address] [place] [address] [address], [place], [place], [id number] , [place]. tel: [phone] Referring Provider: Too Del Cid, [address] [place] [address], [id number]. tel:[phone] OFFICE VISIT, [facility], [address] [place] [address], [id number] , [place] tel: [phone] Telehealth Widespread pain (chief complaint) Postlaminectom y syndrome, not elsewhere classifiedPain in right kneeChronic pain syndromeLong term (current) use of opiate analgesic September- 0 Nunez Dionte. [address] [place] [address] [address], [place], [place], [id number] , [place]. tel: [phone] Referring Provider: Too Del Cid, [address] [place] [address], [address]. tel:[phone] OFFICE VISIT, [facility], [address] [place] [address], [id number] , [place] tel: [phone] Telehealth Widespread pain (chief complaint) Postlaminectom y syndrome, not elsewhere classifiedPain in right kneeChronic pain syndromeLong term (current) use of opiate analgesicPain in left hip September-0 0 Nunez Dionte. [address] [place] [address] [address], [place], [place], [id number] , [place]. tel: [phone] OFFICE VISIT, [facility], [address] [place] [address], [id number] , [place] tel: [phone] Telehealth Widespread pain (chief complaint) Postlaminectom y syndrome, not elsewhere classifiedPain in right kneeChronic pain syndromeLong term (current) use of opiate analgesic Apr-2 0-202 0 Mayra Rapp. [address] [facility] [address], [place], [place], [id number] , [place]. tel:[phone] Referring Provider: Too Del Cid, [address] [place] [address], [address]. tel:[phone] OFFICE VISIT, EST TELEMEDICINE [facility], [address] [place] [address], [id number] , [place] tel:[phone] Telehealth Widespread pain (chief complaint) Postlaminectom y syndrome, not elsewhere classifiedPain in right kneeChronic pain syndromeLong term (current) use of opiate analgesic Apr-0 2-202 0 Mayra Rapp. [address] [place] [address] [address], [place], [place], [id number] , [place]. tel:[phone] Referring Provider: Too Del Cid, [address] [place] [address], [address]. tel:[phone] OFFICE VISIT, EST TELEMEDICINE [facility], [address] [place] [address], [id number] , [place] tel:[phone] [facility] Widespread pain (chief complaint) intermodal customer service (current) use of opiate analgesicPostl aminectomy syndrome, not elsewhere classifiedPain in right kneeChronic pain syndrome 8 0 Mayra Rapp. [address] [place] [address] [address], [place], [place], [id number] , [place]. tel:[phone] Referring Provider: Too Del Cid, [address] [place] [address], [address]. tel:[phone] [facility], [address] [place] [address], [id number] , [place] tel:[phone] [facility] [place] No Information Jul- 0-202 0 Mayra Rapp. [address] [place] [address] [address], [place], [place], [id number] , [place]. tel:[phone] OFFICE/OUTPAT IENT VISIT, [facility], [address] [place], [place], [id number] , [place] tel:[phone] [facility] Widespread pain (chief complaint) Chronic pain syndromePostla minectomy syndrome, not elsewhere classifiedPain in right kneeLong term (current) use of opiate analgesic Jul-0 - 0 Mayra Rapp. [address] [facility] [address], [place], [place], [id number] , [place]. tel:[phone] Referring Provider: Too Del Cid, [address] [place] [address], [address]. tel:[phone] OFFICE/OUTPAT IENT VISIT, [facility], [address] [place], [place], [id number] , [place] tel:[phone] [facility] Widespread pain (chief complaint) Chronic pain syndromePostla minectomy syndrome, not elsewhere classifiedMyal isabel, other sitePain in right kneeEncounter for therapeutic drug level monitoringLong term (current) use of opiate analgesic Jul-2 0 Nunez Dionte. [address] [facility] [address], [place], [place], [id number] , [place]. tel:[phone] Referring Provider: Caleb Ontiveros [facility] [address] [facility], [place], [address]. tel:[phone] Family History Family Member Type Diagnosis Age At Onset No Information Payers Payer name Insurance type Covered democrat ID Authorfrankoa agnieszka(s) Marcela MA [facility] Replacement [id number] Social History Type Description Quantity Date Captured [...] C scre ening. Due on due Goal PERSONAL CARE SERVICE PROVIDER Scanned. Due on due Goal Creatinine. Due [...] vaccine ( 1st). Due on due Goal LEAK INSPECTOR Paperwork. Due on due Goal UDT. Due on due Goal Unhealthy drug u se screening. Due on due Goal FIT. Due on due Goal CT-Colonography. Due on due Goal HPV. Due on due Goal Medication Recon ciliation. Due on due Goal Height. Due on d ue Goal Lipid panel. Due on due Goal Update Social Hi story. Due on due Goal Order Annual PT. Due on due Goal Tobacco Use. Due on due Goal PHQ-9. Due on du e Goal PERSONAL CARE SERVICE PROVIDER Scanned. Due on due Goal LEAK INSPECTOR Paperwork. Due on due Goal Creatinine. Due [...] ue Goal UDT. Due on due Goal Update Social Hi story. Due on due Goal Tobacco Use. Due on due Goal PHQ-9. Due on du e Goal FIT-DNA. Due on due Goal Weight. Due on d ue Goal Creatinine. Due on due Goal LEAK INSPECTOR Paperwork. Due on due Goal OARS. Due on due Goal ALT (SGPT). Due on due Goal Hepatitis C scre ening. Due on due Goal PERSONAL CARE SERVICE PROVIDER Scanned. Due on due Goal Order Annual [...] Goal AST (SGOT). Due on due Goal PERSONAL CARE SERVICE PROVIDER Scanned. Due on due Goal ALT (SGPT). Due on due Goal Hepatitis C scre ening. Due on due Goal PHQ-9. Due on du e Goal OARS. Due on due Goal LEAK INSPECTOR Paperwork. Due on due Goal Height. Due [...] ue Goal CT-Colonography. Due on due Goal PERSONAL CARE SERVICE PROVIDER Scanned. Due on due Goal Zoster vaccine ( 1st). Due on due Goal ALT (SGPT). Due on due Goal LEAK INSPECTOR Paperwork. Due on due Goal Creatinine. Due [...] Goal PHQ-9. Due on du e Goal LEAK INSPECTOR Paperwork. Due on due Goal Height. Due on d ue Goal Weight. Due on d ue Goal Tobacco Use. Due on due Goal Unhealthy drug u se screening. Due on due Goal ALT (SGPT). Due on due Goal CT-Colonography. Due on due Goal HPV. Due on due Goal FIT. Due on due Goal PERSONAL CARE SERVICE PROVIDER Scanned. Due on due Goal Creatinine. Due on due Goal Review Allergy L ist. Due on due Goal OARS. Due on due Goal Update Social Hi story. Due on due Goal Zoster vaccine ( 1st). Due on due Goal Creatinine. Due on due Goal Hepatitis C scre ening. Due on due Goal Lipid panel. Due on due Goal CT-Colonography. Due on due Goal LEAK INSPECTOR Paperwork. Due on due Goal ALT (SGPT). [...] Goal Weight. Due on d ue Goal PERSONAL CARE SERVICE PROVIDER Scanned. Due on due Goal FIT-DNA. Due [...] Order Annual PT. Due on due Goal PERSONAL CARE SERVICE PROVIDER Scanned. Due on due Goal ALT (SGPT). Due on due Goal Height. Due on d ue Goal OARS. Due on due Goal LEAK INSPECTOR Paperwork. Due on due Goal Lipid panel. [...] Order Annual PT. Due on due Goal LEAK INSPECTOR Paperwork. Due on due Goal HPV. Due on due Goal Zoster vaccine ( ). Due on due Goal OARS. Due on due Goal AST (SGOT). Due on due Goal Weight. Due on d ue Goal Height. Due on d ue Goal Hepatitis C scre ening. Due on due Goal Update Social Hi story. Due on due Goal Creatinine. Due on due Goal UDT. Due on due Goal Unhealthy drug u se screening. Due on due Goal PERSONAL CARE SERVICE PROVIDER Scanned. Due on due Goal Tobacco Use. Due on due Goal FIT-DNA. Due on due Goal CT-Colonography. Due on due Goal FIT. Due on due Goal Review Allergy L ist. Due on due Goal LEAK INSPECTOR Paperwork. Due on due Goal OARS. Due on due Goal ALT (SGPT). Due on due Goal PERSONAL CARE SERVICE PROVIDER Scanned. Due on due Goal UDT. Due [...] Order Annual PT. Due on due Goal LEAK INSPECTOR Paperwork. Due on due Goal Creatinine. Due on due Goal PERSONAL CARE SERVICE PROVIDER Scanned. Due on due Goal OARS. Due on due Goal ALT (SGPT). Due on due Goal UDT. Due on due Goal PERSONAL CARE SERVICE PROVIDER Scanned. Due on due Goal Creatinine. Due on due Goal OARS. Due on due Goal Order Annual PT. Due on due Goal LEAK INSPECTOR Paperwork. Due on due Goal AST (SGOT). [...] vaccine ( ). Due on due Goal Medication Recon ciliation. Due on due Goal Weight. Due on d ue Goal PHQ-9. Due on du e Goal Unhealthy drug u se screening. Due on due Goal Update Social Hi story. Due on due Goal Zoster vaccine ( ). Due on due Goal Tobacco Use. Due on due Goal UDT. Due on due Goal CT-Colonography. Due on due Goal Unhealthy drug u se screening. Due on due Goal Order Annual PT. Due on due Goal FIT-DNA. Due on due Goal HPV. Due on due Goal PERSONAL CARE SERVICE PROVIDER Scanned. Due on due Goal AST (SGOT). Due on due Goal Lipid panel. Due on due Goal PHQ-9. Due on du e Goal Creatinine. Due on due Goal FIT. Due on due Goal Medication Recon ciliation. Due on due Goal Weight. Due on d ue Goal LEAK INSPECTOR Paperwork. Due on due Goal Review Allergy L ist. Due on due Goal ALT (SGPT). Due on due Goal OARS. Due on due Goal Height. Due on d ue Goal Hepatitis C scre ening. Due on due Goal Lipid panel. Due on due Goal Tobacco Use. Due on due Goal HPV. Due on due Goal Zoster vaccine ( ). Due on due Goal Medication Recon ciliation. Due on due Goal Hepatitis C scre ening. Due on due Goal FIT. Due on due Goal Weight. Due on d ue Goal PERSONAL CARE SERVICE PROVIDER Scanned. Due on due Goal ALT (SGPT). [...] due Goal CT-Colonography. Due on due Goal LEAK INSPECTOR Paperwork. Due on due Goal OARS. Due on due Goal UDT. Due on due Goal LEAK INSPECTOR Paperwork. Due on due Goal HPV. Due on due Goal Medication Recon ciliation. Due on due Goal FIT-DNA. Due on due Goal Lipid panel. Due on due Goal Weight. Due on d ue Goal UDT. Due on due Goal PERSONAL CARE SERVICE PROVIDER Scanned. Due on due Goal OARS. Due [...] Goal ALT (SGPT). Due on due Goal Zoster vaccine ( 1st). Due on due Goal LEAK INSPECTOR Paperwork. Due on due Goal UDT. Due on due Goal Order Annual PT. Due on due Goal PERSONAL CARE SERVICE PROVIDER Scanned. Due on due Goal Creatinine. Due [...] due Goal FIT. Due on due Goal PERSONAL CARE SERVICE PROVIDER Scanned. Due on due Goal PHQ-9. Due [...] due Goal OARS. Due on due Goal LEAK INSPECTOR Paperwork. Due on due Goal Zoster vaccine [...] due Goal CT-Colonography. Due on due Goal PERSONAL CARE SERVICE PROVIDER Scanned. Due on due Goal FIT-DNA. Due on due Goal Tobacco Use. Due on due Goal Creatinine. Due on due Goal Review Allergy L ist. Due on due Goal Lipid panel. Due on due Goal LEAK INSPECTOR Paperwork. Due on due Goal UDT. Due on due Goal PHQ-9. Due on du e Goal ALT (SGPT). Due on due Goal Weight. Due on d ue Goal Order Annual PT. Due on due Goal PERSONAL CARE SERVICE PROVIDER Scanned. Due on due Goal Medication Recon ciliation. Due on due Goal OARS. Due on due Goal Tobacco Use. Due on due Goal Creatinine. Due on due Goal LEAK INSPECTOR Paperwork. Due on due Goal Review Allergy [...] Social Hi story. Due on due Goal PERSONAL CARE SERVICE PROVIDER Scanned. Due on due Goal Medication Recon ciliation. Due on due Goal UDT. Due on due Goal Creatinine. Due on due Goal PHQ-9. Due on du e Goal LEAK INSPECTOR Paperwork. Due on due Goal ALT (SGPT). Due on due Goal AST (SGOT). Due on due Goal Weight. Due on d ue Goal Medication Recon ciliation. Due on due Goal LEAK INSPECTOR Paperwork. Due on due Goal Tobacco Use. Due on due Goal PHQ-9. Due on du e Goal ALT (SGPT). Due on due Goal Update Social Hi story. Due on due Goal OARS. Due on due Goal Order Annual PT. Due on due Goal Creatinine. Due on due Goal AST (SGOT). Due on due Goal PERSONAL CARE SERVICE PROVIDER Scanned. Due on due Goal Review Allergy L ist. Due on due Goal Height. Due on d ue Goal UDT. Due on due Goal OARS. Due on due Goal Creatinine. Due on due Goal PERSONAL CARE SERVICE PROVIDER Scanned. Due on due Goal Order Annual PT. Due on due Goal ALT (SGPT). Due on due Goal Update Social Hi story. Due on due Goal Review Allergy L ist. Due on due Goal AST (SGOT). Due on due Goal UDT. Due on due Goal Weight. Due on d ue Goal Medication Recon ciliation. Due on due Goal LEAK INSPECTOR Paperwork. Due on due Goal PHQ-9. Due on du e Goal Height. Due on d ue Goal Tobacco Use. Due on due Goal Weight. Due on d ue Goal PERSONAL CARE SERVICE PROVIDER Scanned. Due on due Goal PHQ-9. Due on du e Goal LEAK INSPECTOR Paperwork. Due on due Goal Medication Recon [...] Allergy L ist. Due on due Goal PERSONAL CARE SERVICE PROVIDER Scanned. Due on due Goal Order Annual PT. Due on due Goal LEAK INSPECTOR Paperwork. Due on due Goal UDT. Due [...] due Goal OARS. Due on due Goal LEAK INSPECTOR Paperwork. Due on due Goal PERSONAL CARE SERVICE PROVIDER Scanned. Due on due Goal Review Allergy [...] Goal PHQ-9. Due on du e Goal LEAK INSPECTOR Paperwork. Due on due Goal Review Allergy L ist. Due on due Goal Medication Recon ciliation. Due on due Goal Creatinine. Due on due Goal Update Social Hi story. Due on due Goal ALT (SGPT). Due on due Goal Tobacco Use. Due on due Goal Height. Due on d ue Goal PERSONAL CARE SERVICE PROVIDER Scanned. Due on due Goal OARS. Due on due Goal AST (SGOT). Due on due Goal Height. Due on d ue Goal PHQ-9. Due on du e Goal Order Annual PT. Due on due Goal Medication Recon ciliation. Due on due Goal Tobacco Use. Due on due Goal LEAK INSPECTOR Paperwork. Due on due Goal Review Allergy L ist. Due on due Goal Creatinine. Due on due Goal ALT (SGPT). Due on due Goal Update Social Hi story. Due on due Goal UDT. Due on due Goal OARS. Due on due Goal Weight. Due on d ue Goal PERSONAL CARE SERVICE PROVIDER Scanned. Due on due Goal Order Annual PT. Due on due Goal ALT (SGPT). Due on due Goal Tobacco Use. Due on due Goal PHQ-9. Due on du e Goal Update Social [employer] story. Due on due Goal LEAK INSPECTOR Paperwork. Due on due Goal AST (SGOT). Due on due Goal Medication Recon ciliation. Due on due Goal Height. Due on d ue Goal Weight. Due on d ue Goal Review Allergy L ist. Due on due Goal PERSONAL CARE SERVICE PROVIDER Scanned. Due on due Goal Creatinine. Due on due Goal OARS. Due on due Goal UDT. Due on due Goal Tobacco cessation counseling completed Referral Ordered: Azael Regan -[facility] : Family Medicine (related to Radiculopathy, lumbar region) ordered Referral Ordered: [facility] -Family Medicine (related to Radiculopathy, lumbar region) ordered Referral Referred To: [facility] [address] [facility] [place], [address] [phone] Ordered: Referrals: Family Medicine. [facility] ordered Referral Ordered: X-RAY EXAM OF HIPS LT hip ordered Referral Ordered: Azael Regan -[facility] Phys[facility] : Family Medicine (related to Postlaminectomy syndrome, not elsewhere classified) ordered Referral [facility]
[address] [place], [phone] Ordered: Referrals: Allopathic & Osteopathic Physicians : [...] on: Sent Future Order: Lab Order Drug Mair t Def 22+ Classes (G0483), Ordered on: [...] assessment:Difficulty reaching, lifting, carrying, pushing, pulling, and mold polisher is hopeful that the SCS device will [...] discomfort. Patient was meeting with Jose from [facility] today and expressed her frustration with charging. [...] down, pain meds/drugs and rest. Back Pain Severity [...] changing positions. Comments: Brandee is here today for follow [...] other concerns. Comments: Brandee is here today virtually for [...] TKA on 07/09/[address] Camara from [facility]. PERSONAL CARE SERVICE PROVIDER was reviewed and shows pt was rx'ed 2mg Dilaudid max 7/day for post op pain. She was rx'ed #49tabs on 08/23/21, #49tabs on 08/19/21 and #49 tabs on 08/08/21. Her chronic dose at [facility] is #5tabs a day, patient [...] rescheduled for 07/09/[address] Camara from [facility]. Surgeon will manage post-op pain. Lower [...] for [address] Lino or from [facility]. It was canceled due to no [...] scheduled R TKA with Dr. Camara through [facility]. Discussed post-op pain management. Also continues [...] order. She looks forward to reprogramming with [facility] today as she has had questions about [...] Pain has been worse. She went to [facility] two weeks ago with atrial fibrillation. She completed work-up and was put on warfarin. She met with her orthopedist at [facility] regarding her R knee pain. Orthopedist recommended [...] month due to visiting her daughter in [place]. She realized she can not walk long distances with her walker. Had a injection scheduled with [facility] but [employer] service could not provide her the ride from [place]. She is excited about the recently approved [...] injection on 12/[address] estrella at [facility].Reports current medication regimen provides at least [...] upcoming appt. with a back surgeon through [facility] next week to be evaluated. Reports [...] over.Notes that she followed up with her welder tech yesterday. States that she has arrythmia although [...] [employer] SCS trial. Reports she presented to [facility] and dropped off her psych [...] and she is also unable to attend acute care certified nursing assistant which she significantly benefits from. She still [...] her medication. Medications are managed by [facility]. Denies side effects.Patient is not accompanied today [...] has started physical [facility] and intends on continuing twice weekly. [...] been recommended for possible R TKA at [facility], but no date has been scheduled. States her pain causes her lots of anxiety because she has tried many treatments without significant benefit. She is currently enrolled in PT at [facility]. She also regularly attends the chiropractor. [...] and other recommended therapies and would like [facility] to assume management of pain care. Functional Status Date Functional Assessmen t No Information Instructions Date Instruction Additional Infor mation No Information Assessments Type Assessment Date assessment Pain in right knee impression S/p right TKA on 12/[address] Camara from [facility]. Has been participating in PT with good benefit. Pain has been worse since [facility] assessment Pain in left ankle and joints of left foot impression Worsening pain in th e left ankle and is considering an ankle fusion assessment Radiculopathy, lumbar region Jul impression Lower back pain with radiation into her BLE, continues to worsen since [facility] assessment Myalgia, other site impression TPIs in the past wit hout benefit. PO muscle relaxers provide moderate relief assessment Postlaminectomy syndrome, not el sewhere classified impression Hx of L4-S1 fusion. She has an SCS implant but may be interested in an explant assessment intermodal customer service (current) use of opiat e analgesic impression The medication relie ves at least 60% of the pain, does not cause significant side effects, increases the patient's daily activity level. Medication managed by facility.Most of today's visit was spent discussing the patient's recent discharge from the clinic d/t her inappropriate behavior and language used toward staff. Patient expresses frustrations with termination. [employer]AK INSPECTOR terminated.Most recent UDT results reviewed and appropriate. Not appropriate to continue opioid therapy d/t issues with inappropriate behavior. Current MME 30 Mental Status Date Cognitive Assessment Orientation - Colona ed to time, place, person, situation. Patient Care Teams Name Effective Dates (start - stop) Status Members No Information
--- OUTSIDE RECORDS SUMMARY | 2023-10-27 17:14 | XMS_ITS | Encounter Summary ---
Author Organization [facility] Address [address] [place] [id number] Care Team Providers Care Kindergarten Teacher Name Role Phone Celia Kumar Fortino Garcia MD Unavailable [phone] Charan Corbin MD Unavailable [phone] Adams Barrera Primary Care Provider [phone] Deborah Walsh MD Unavailable Greta Thao APRN [employer] Unavailable [phone] Greta Thao APRN [employer] Unavailable [phone] Encounter Details Date Type Department Care Team (Latest Contact Info) Description 10/15/2023 Travel Social History Tobacco Use Types Packs/Day Years Used Date Smoking Tobacco: Every Day Cigarettes Last attempted to quit: 07/02/2020 Hookah Smokeless [...] file 07/05/2021 How often do you attend memorial [facility] or spiritism services? More than 4 times per year 07/05/2021 Do you belong to any clubs o r organizations such as tenriism groups, unions, fraternal or athletic groups, or [...] Answer Date Recorded PHQ-2 Score 1 07/20/2019 [facility] - [...] place to sleep or slept in a fdc (including now)? No 07/05/2021 Adolescent Education Answer Date Record ed Getting School Help Needed Not on file 02/20 Sex and Gender Information Value Date Recorded Sex Assigned at Not on file Gender Identity Not on file Sexual Orientation Not on file documented as of this encounter Plan of Treatment Upcoming Encounters Date Type Department Care Team (Late st Contact Info) Description 11/13/2023 1:30 PM CDT Office Visit [facility] [place] [address] [place] [phone] Greta Thao APRN [facility] [place] [address] [place] [phone] 12/10/2023 9:30 AM CDT Office Visit [facility] [place] [address] [facility] [facility] [address] [place], [place] [phone] [place] [address] [place], [place] [phone] documented as of this encounter Visit Diagnoses Not on filedocumented in this encounter Care Teams Kindergarten Teacher Relationship Specialty Start Date End Date Adams Barrera [address] [facility] [address] [place], [place] [phone] PCP - General 03/30/20 Celia Kumar MD [address] [facility] [address] [place], [place] [address] Plastic Surgery 04/20/15 Charan Corbin MD [address] [facility] [address] [place] [address] INTERNAL MEDICINE - ENDOCRINOLOGY, DIABETES & METABOLISM 06/19/15 [place] [address] [place] [address] Assigned PCP 03/21/21 Greta Thao APRN [employer] [facility] [place] [address] [place] [address] Nurse Practitioner Cardiology 06/09/23 Greta Thao APRN [employer] [facility] [place] [address] [place] [address] Assigned Heart and Vascular Provider 06/25/23 documented as of this encounter
--- OUTSIDE RECORDS SUMMARY | 2023-10-27 17:14 | XMS_ITS | Clinical Summary ---
Author Organization [facility] Address [address] [place] [address] Care Team Providers Care Assistant Spa Director Name Role Phone José Celia Garcia MD Unavailable [phone] Charan Corbin MD Unavailable [phone] Adams Barrera Primary Care Provider [phone] Deborah Walsh MD Unavailable Greta Thao APRN TRANSPORTATION PROJECT MANAGER Unavailable [phone] Greta Thao APRN TRANSPORTATION PROJECT MANAGER Unavailable [phone] Allergies Active Allergy Reactions Criticality Noted Date Comments Adhesive Tape Unknown,Rash Low 04/05/2021 Aspirin Low 03/14/2009 Other reaction(s): Other (see comments) Due to gastric bypass Cephalosporins Rash Low 04/02/2020 Ciprofloxacin Rash Low 04/02/2020 Erythromycin Rash Medium 03/11/2009 Gramineae Pollens Rash High 05/13/2023 Latex 07/09/2021 Added based on information entered during log entry, please review and add reactions, type, and severity as needed Liquid Adhesive Rash Low 03/12/2017 Patient allergic to pressure tape or foam tape. Mold 05/13/2023 Nsaids GI Disturbance 03/09/2015 Penicillins Rash Medium 03/11/2009 Short Ragweed Pollen Ext 06/16/2023 Sulfa Antibiotics Rash Medium 03/11/2009 Tolmetin Rash Low 07/03/2011 Pt had bariatric surgery, should not ever take oral NSAIDS due to risk of gastric ulcers. Tramadol Rash Low 05/18/2015 Trees 06/16/2023 Trimethoprim Swelling,Rash High 05/13/2023 Troleandomycin Rash Low 03/12/2017 Patient unsure if she also had angioedema from these medications. Medications Medication Sig Dispensed Refills Start Date End Date Status torsemide 20 MG PO tablet Take 50 mg by mouth daily 04/25/2019 Active MILK OF MAGNESIA 400 MG/5ML PO suspension Take 30 mLs by mouth daily as needed for constipation 05/18/2019 Active nystatin 042066 UNIT/GM EX external powder Apply topically 2 times daily as needed 03/19/2019 Active SM GAS RELIEF EXTRA STRENGTH 125 MG PO CAPS Take 1 capsule by mouth 4 times daily 07/15/2019 Active albuterol (VENTOLIN HFA) 108 (90 Base) MCG/ACT IN inhaler Inhale 2 puffs into the lungs every 6 hours as needed 01/02/2019 Active atorvastatin 40 MG PO tablet Take 40 mg by mouth At Bedtime 01/29/2019 Active azelastine 0.1 % NA nasal sprayIndications:al lergies [place] 1 spray into both nostrils 2 times daily 02/18/2016 Active cyanocobalamin 1000 MCG/ML IJ injection Inject 1 mL into the muscle every 30 days 07/15/2019 Active diclofenac (VOLTAREN) 1 % topical gel Apply 2 g topically 4 times daily Apply to affected area. 6AM, 12PM, 6PM, 12AM 02/02/2020 Active fluticasone (FLONASE) 50 MCG/ACT nasal spray [place] 1 spray into both nostrils 2 times daily 02/08/2020 Active Incontinence Supply Disposable (DEPEND FITTED BRIEFS SM/MED) MISC For home use. Will use 2 per day. Size large. 04/28/2018 Active Vaginal Lubricant (REPLENS) GEL Place vaginally every 72 hours as needed (dryness) 09/23/2019 Active Sharps Container (VDOSXI-M-RBBAV LOCKING BRACKET) MISC Length: calf Strength: 16-20 mmHg Circumference in cm: For calf: Ankle 12, Calf 18.5 , Ankle to calf length 12 . 03/15/2018 Active HYDROmorphone (DILAUDID) 2 MG tabletIndications:O pen wound Take 1 tablet (2 mg) by mouth every 6 hours as needed for severe pain 12 tablet 06/26/2020 Active Additional Information Patient taking differently: 2-4 mgOralEVERY 4 HOURS PRN, severe pain,Max 5 per day, Reported on 07/08/2021 metFORMIN (GLUCOPHAGE) 500 MG tablet Take 500 mg by mouth 2 times daily (with meals) Active warfarin ANTICOAGULANT (COUMADIN) 2 MG tablet Take 3-4 mg by mouth See Admin Instructions Take 3 mg on Sundays. Take 4 mg all other days of the week. Active BANOPHEN 25 MG capsule Take 25 mg by mouth every 4 hours as needed for sleep 01/28/2021 Active fluticasone-salmete rol (ADVAIR) 250-50 MCG/DOSE inhalerIndications: Asthma Inhale 1 puff into the lungs 2 times daily 12/14/2020 Active loratadine (CLARITIN) 10 MG tablet Take 10 mg by mouth daily 01/25/2021 Active artificial saliva (BIOTENE DRY MOUTHWASH) LIQD liquid Swish and spit 15 mLs in mouth every 6 hours as needed for dry mouth 12/14/2020 Active pantoprazole (PROTONIX) 40 MG EC tablet Take 40 mg by mouth daily 12/14/2020 Active sertraline (ZOLOFT) 100 MG tablet Take 200 mg by mouth daily 01/25/2021 Active ipratropium - albuterol 0.5 mg/2.5 mg/3 mL (DUONEB) 0.5-2.5 (3) MG/3ML neb solution Take 1 vial by nebulization 2 times daily 02/25/2021 Active DIPHENHYDRAMINE HCL PO Take 25 mg by mouth every 4 hours as needed Active MARY-LANTA 200-200-20 MG/5ML SUSP suspension Take 10 mLs by mouth 4 times daily as needed for indigestion 06/03/2021 Active prazosin (MINIPRESS) 2 MG capsule Take 2 mg by mouth At Bedtime 06/18/2021 Active pregabalin (LYRICA) 100 MG capsule Take 100 mg by mouth 3 times daily 06/17/2021 Active SUMAtriptan (IMITREX) 50 MG tablet Take 50 mg by mouth at onset of headache for migraine May repeat x1 in 2 hours if needed. 06/10/2021 Active hydrocortisone (CORTAID) 1 % external cream Apply topically 4 times daily as needed for rash 06/03/2021 Active zolpidem (AMBIEN) 5 MG tablet Take 5 mg by mouth At Bedtime 06/17/2021 Active polyethylene glycol (MIRALAX) 17 g packet Take 1 packet by mouth 2 times daily Active senna-docusate (SENOKOT-S/PERICOLA CE) 8.6-50 MG tablet Take 3 tablets by mouth 2 times daily Active ondansetron (ZOFRAN-ODT) 4 MG ODT tab Take 4 mg by mouth every 8 hours as needed for nausea Active hydrOXYzine (VISTARIL) 50 MG capsuleIndications: Status post total right knee replacement Take 1 capsule (50 mg) by mouth 3 times daily as needed for itching 30 capsule 07/13/2021 Active Additional Information Patient not taking.Reported on 06/16/2023 Active Problems Problem Noted Date Diagnosed Date Total knee replacement status 07/09/2021 Excess skin of abdomen 03/29/2020 Overview: Added automatically from request for surgery [id number] Nasal septal deviation 02/08/2020 Nasal trauma 02/08/2020 Nasal valve collapse 02/08/2020 Asthma 02/03/2019 Overview: Asthma. mild. only with URI. Asthma. mild. only with URI. Longstanding persistent atrial fibrillation 09/2018 Status post replacement of left shoulder joint 1 Diastasis of rectus abdominis 01/29/2018 Lacunar stroke 01/20/2018 Overview: Right parietal per [facility] Recurrent major depressive disorder (H24) 2017 Overview: [...] Encounters Date Type Department Care Team Description 10/15/2023 Telephone [facility] [place] [address] [facility] [address] [place], [place] [phone] Haley Khanna MD Injection Inquiry 10/15/2023 Travel 10/14/2023 1:30 PM CDT - 10/14/2023 11:59 PM CDT Hospital Encounter [facility] [address] [place] [address] Greta Thao APRN CNP Longstanding persistent atrial fibrillation (H) Discharge Disposition: Home or Self Care 10/14/2023 Travel 08/27/2023 4:15 PM CDT Office Visit [facility] Urgent [facility] [id number] [place] [phone] Ashley Camargo, YULIANA Chronic atrial fibrillation (H) (Primary Dx); Longstanding persistent atrial fibrillation (H); Anticoagulation goal of INR 2 to 3 08/27/2023 Travel 08/27/2023 Documentation Only [facility] [address] [place] [phone] Adams Barrera Lab Only 08/10/2023 Telephone [facility] [address] [facility] [address] [place] [phone] Greta Thao APRN CNP Medication Question (adderall) from Last 3 Months Immunizations Name Administration [...] to quit: 07/02/2020 Hookah Smokeless Tobacco: Never Tobacco Cessation:Ready to Q uit: Not Asked; Counseling Given: Not Answered Comments:3 cigarettes a day Alcohol Use Standard [...] often do you attend chur ch or religion services? More than 4 times per year 07/05/2021 Do you belong to any clubs o r organizations such as alevism groups, unions, fraternal or athletic groups, or [...] Answer Date Recorded PHQ-2 Score 1 07/20/2019 [facility] [place] of Occupat ional Health - Occupational Stress [...] place to sleep or slept in a senior care (including now)? No 07/05/2021 Adolescent Education Answer Date Record ed Getting School Help Needed Not on file 02/20 Sex and Gender Information Value Date Recorded Sex Assigned at Not on file Gender Identity Not on file Sexual Orientation Not on file Last Filed Vital Signs Vital Sign Reading Time Taken Comments Blood Pressure 110/74 08/27/2023 3:52 PM CDT Pulse 85 08/27/2023 3:52 PM CDT Temperature 36.6 ??C (97.8 ??F) 08/27/2023 3:52 PM CD T Respiratory Rate 18 08/27/2023 3:52 PM CDT Oxygen Saturation 99% 08/27/2023 3:52 PM CDT Inhaled Oxygen Concentration - - Weight 94.3 kg (208 lb) 08/27/2023 3:52 PM CDT Height 157.5 cm (5' 2) 08/27/2023 3:52 PM CDT Body Mass Index 38.04 08/27/2023 3:52 PM CDT Plan of Treatment Upcoming Encounters Date Type Department Care Team (Late st Contact Info) Description 11/13/2023 1:30 PM CDT Office Visit [facility] [place] [address] [facility] [address] [place] [address] Greta Thao APRN [facility] [place] [address] [place] [phone] 12/10/2023 9:30 AM CDT Office Visit [facility] [place] [address] [place], [place] [address] [place] [address] [place] [place], [place] [phone] Health Maintenance Due Date Last Done Comments ADVANCE CARE PLANNING 1960 ANNUAL REVIEW OF HM ORDERS 1960 ASTHMA ACTION PLAN 1960 ASTHMA CONTROL TEST [address] CT COLONOGRAPHY 1960 DIABETIC FOOT EXAM 1960 EYE EXAM 1960 FIT 1960 FLEX SIG 1960 HF ACTION PLAN 1960 MICROALBUMIN 1960 NICOTINE/TOBACCO CESSATION COUNSELING Q 1 YR 1960 sDNA (Cologuard) 1960 HIV SCREENING 01/23/1975 HEPATITIS C SCREENING 01/23/1978 LIPID 03/09/2016 03/09/2015 RSV VACCINE ( & 60+) (1 - 1-dose 60+ series) 2020 MAMMO SCREENING 07/29/2021 07/29/2019, 07/29/2019 A1C 10/02/2021 07/05/2021, 11/0 12/2020, 11/14/2020, Additional history exists ALT 12/12/2021 12/12/2020, 10/30, 11/09/2020, Additional history exists ZOSTER IMMUNIZATION (2 of 2) 03/05/2022 01/08/2022 MEDICARE ANNUAL WELLNESS VISIT 05/06/2022 05/06/2021 URINE DRUG SCREEN 07/05/2022 07/05/2021 LUNG CANCER SCREENING 07/11/2022 07/11/2021 , 11/09/2020, 03/19/2017 COVID-19 Vaccine ( season) 2023 04/09/2022, 07/16/2020, 06/18/2020 BMP 11/21/2023 05/22/2023, 07/02, 07/10/2021, Additional history exists CBC 05/22/2024 05/22/2023, 08/2021, 04/08/2021, Additional history exists COLONOSCOPY 03/26/2025 03/26/2015 COLORECTAL CANCER SCREENING 03/26/2025 DTAP/TDAP/TD IMMUNIZATION (7 - Td or Tdap) 06/24/2032 06/24/2022, 09/29/2011, 09/02/2011, Additional history exists TSH W/FREE T4 REFLEX Completed 12/12/2020, 11/11/19 21 INFLUENZA VACCINE Completed 04/08/2023, , 03/18/2021, Additional history exists Pneumococcal Vaccine: Pediatrics (0 [...] this topic Medical Devices Implanted Type Area Newborn Hearing Screener Device Identifier Shelf Expiration Date Model / Serial / Lot Cement Surgical Tobramycin 6197-9-001 - [id number] Implanted:Qty : 2 on 07/09/2021 by Jamin Siegel MD at [facility] Cement, Bone Right: Knee [employer] 07/01/2022 6197-9-001 / / [id number] Insert Jj Attune Medial Jaquelin Pat 38mm [id number] - [id number] Implanted:Qty : 1 on 07/09/2021 by Jamin Siegel MD at [facility] Total Joint Componen t/Insert Right: Knee [employer] [id number] 09/28/2025 [id number] / / [id number] Imp Comp Fem Jj Attune Post Stab Rt Ash Sz5 [id number] - [id number] Implanted:Qty : 1 on 07/09/2021 by Jamin Siegel MD at [facility] Total Joint Componen t/Insert Right: Knee [employer] [id number] 01/29/2026 [id number] / / [id number] Stem 50mm X 14mm - [id number] Implanted:Qty : 1 on 07/09/2021 by Jamin Siegel MD at [facility] Total Joint Componen t/Insert Right: Knee [employer] [id number] 02/28/2031 [id number] / / [id number] Tibial Base Sz 5 - [id number] Implanted:Qty : 1 on 07/09/2021 by Jamin Siegel MD at [facility] Total Joint Componen t/Insert Right: Knee [employer] [id number] 04/30/2030 [id number] / / [id number] Imp Insert Jj Attune Post Stab Fx Br Sys Sz5 12mm [id number] - [id number] Implanted:Qty : 1 on 07/09/2021 by Jamin Siegel MD at [facility] Total Joint Componen t/Insert Right: Knee [employer] [id number] 07/29/2024 [id number] / / [id number] Procedures Procedure Name Priority Date/Time Associated Diagnosis Comments INR Routine 08/27/2023 4:42 PM CDT Chronic atrial fibrillation (H) CBC WITH PLATELETS & DIFFERENTIAL STAT 05/22/2023 12:39 AM NURSING CLERK BASIC METABOLIC PANEL STAT 05/22/2023 12:[address] CHEST PULMONARY EMBOLISM W CONTRAST STAT 07/11/2021 11:08 AM NURSING CLERK URINE DRUG SCREEN CLINIC Routine 07/05/2021 10:09 AM NURSING CLERK Encounter for therapeutic drug monitoring HEMOGLOBIN A1C Add-On 07/05/2021 10:09 AM NURSING CLERK Type 2 diabetes mellitus without complication, without long-term current use of insulin (H) TSH Routine 12/12/2020 2:30 PM CDT Longstanding persistent atrial fibrillation (H) ALT Routine 12/12/2020 2:30 PM CDT Longstanding persistent atrial fibrillation (H) MA SCREENING BILATERAL W/ RILEY Routine 07/29/2019 11:25 AM NURSING CLERK LIPID PROFILE Routine 03/09/2015 3:11 PM CDT Bariatric surgery status from Last 3 Months or Most Recently Relevant to Health Maintenance Results * (ABNORMAL) INR (08/27/2023 4:42 PM CDT) INR 2.37(H) 0.85 - 1.15 08/27/2023 7:10 PM CDT LABORATORY Blood BLOOD SPECIMEN / Unknown Venipuncture / Unknown 08/27/2023 4:42 PM CDT 08/27/2023 4:43 PM CDT Ashley Camargo PA-C LAB - BLOOD ORDERAB LES LABORATORY [facility] [address] Lab (1st floor, no room number) [place] [address], [facility] * (ABNORMAL) Basic metabolic panel (BMP) (05/22/2023 12:39 AM NURSING CLERK) Sodium 142 135 - 145 mmol/L 05/22/2023 1:17 AM [facility] Comment:Reference intervals for this test were updated on 02/24/2023 to more accurately reflect our healthy population. There may be differences in the flagging of prior results with similar values performed with this method. Interpretation of those prior results can be made in the context of the updated reference intervals. Potassium 3.7 3.4 - 5.3 mmol/L 05/22/2023 1:17 AM [facility] Chloride 106 98 - 107 mmol/L 05/22/2023 1:17 AM [facility] Carbon Dioxide (CO2) 23 22 - 29 mmol/L 05/22/2023 1:17 AM [facility] Anion Gap 13 7 - 15 mmol/L 05/22/2023 1:17 AM [facility] Urea Nitrogen 10.3 8.0 - 23.0 mg/dL 05/22/2023 1:17 AM [facility] Creatinine 0.50(L) 0.51 - 0.95 mg/dL 05/22/2023 1:17 AM [facility] GFR Estimate >90 >60 mL/min/1. 73m2 05/22/2023 1:17 AM [facility] Calcium 8.2(L) 8.8 - 10.2 mg/dL 05/22/2023 1:17 AM [facility] Glucose 137(H) 70 - 99 mg/dL 05/22/2023 1:17 AM [facility] Blood BLOOD SPECIMEN / Unknown Venipuncture / Unknown 05/22/2023 12:39 AM NURSING CLERK 05/22/2023 12:47 AM NURSING CLERK Champ Madrid MD LAB - BLOOD ORDERABL ES RH LABORATORY [facility] [address] Lab (1st floor, no room number) [place] [address], [facility] [phone] * CT Chest Pulmonary Embolism w Contrast (07/11/2021 11:08 AM NURSING CLERK) Anatomical Region Laterality Modality Chest, SUBRAD CT BODY, UMP CT CHEST Computed Tomography 07/11/2021 10:5 4 AM NURSING CLERK Impressions 07/11/2021 11:27 AM NURSING CLERK IMPRESSION: 1. ??No evidence pulmonary embolism. 2. ??Coronary atherosclerosis. 3. ??Possible pulmonary arterial hypertension. Narrative 07/11/2021 11:27 AM NURSING CLERK EXAM: CT CHEST PULMONARY EMBOLISM W CONTRAST LOCATION: [facility] DATE/TIME: 07/11/2021 10:54 AM INDICATION: PE suspected, high prob. Recent knee replacement. Resting tachycardia. Elevated BNP. COMPARISON: CT 11/09/2020 TECHNIQUE: CT chest pulmonary angiogram during arterial phase injection of IV contrast. Multiplanar reformats and MIP reconstructions were performed. Dose reduction techniques were used. CONTRAST: ISOVUE 370 100mL FINDINGS: ANGIOGRAM CHEST: Pulmonary arteries are negative for pulmonary emboli. Main pulmonary artery is 3.1 cm. This mild enlargement can be seen with pulmonary arterial hypertension. Thoracic aorta is negative for dissection. LUNGS AND PLEURA: Mild nonspecific lung mosaic attenuation. This can be seen with hypersensitivity pneumonitis, pulmonary arterial hypertension, and small airway disease. MEDIASTINUM/AXILLAE: Normal. CORONARY ARTERY CALCIFICATION: Moderate. UPPER ABDOMEN: Gastric bypass. Absent gallbladder MUSCULOSKELETAL: Left shoulder arthroplasty. Right shoulder arthropathy. Intrathoracic spinal stimulator. Multilevel thoracic and lumbar disc degeneration. Procedure Note Jude Morales MD - 07/11/2021 EXAM: CT CHEST PULMONARY EMBOLISM W CONTRAST LOCATION: [facility] DATE/TIME: 07/11/2021 10:54 AM INDICATION: PE suspected, high prob. Recent knee replacement. Restingtachycardia. Elevated BNP. COMPARISON: CT 11/09/2020 TECHNIQUE: CT chest pulmonary angiogram during arterial phase injection ofIV contrast. Multiplanar reformats and MIP reconstructions were performed.Dose reduction techniques were used. CONTRAST: ISOVUE 370 100mL FINDINGS: ANGIOGRAM CHEST: Pulmonary arteries are negative for pulmonary emboli.Main pulmonary artery is 3.1 cm. This mild enlargement can be seen withpulmonary arterial hypertension. Thoracic aorta is negative fordissection. LUNGS AND PLEURA: Mild nonspecific lung mosaic attenuation. This can beseen with hypersensitivity pneumonitis, pulmonary arterial hypertension,and small airway disease. MEDIASTINUM/AXILLAE: Normal. CORONARY ARTERY CALCIFICATION: Moderate. UPPER ABDOMEN: Gastric bypass. Absent gallbladder MUSCULOSKELETAL: Left shoulder arthroplasty. Right shoulder arthropathy.Intrathoracic spinal stimulator. Multilevel thoracic and lumbar discdegeneration. IMPRESSION: 1. No evidence pulmonary embolism. 2. Coronary atherosclerosis. 3. Possible pulmonary arterial hypertension. Kj Regan DO [facility] ORDERABLES * (ABNORMAL) Drug Abuse Screen Panel 13, Urine (Pain Care Package) - lab collect (07/05/2021 10:09 AMCST) Pathologist [facility] Cannabinoids (10-omx-7-carboxy -9-THC) Not Detected Not Detected, Indeterminate 07/06/2021 2:10 PM NURSING CLERK OX LABORATORY Comment:Cutoff for a negativ e cannabinoid is 50 ng/mL or less. Phencyclidine Not Detected Not Detected, Indeterminate 07/06/2021 2:10 PM NURSING CLERK [facility] LABORATORY Comment:Cutoff for a negativ e PCP is 25 ng/mL or less. Cocaine (Benzoylecgonine) Not Detected Not Detected, Indeterminate 07/06/2021 2:10 PM NURSING CLERK [facility] LABORATORY Comment:Cutoff for a negativ e cocaine is 150 ng/ml or less. Methamphetamine (d-Methamphetamin e) Not Detected Not Detected, Indeterminate 07/06/2021 2:10 PM NURSING CLERK [facility]X LABORATORY Comment:Cutoff for a negativ e methamphetamine is 500 ng/ml or less. Opiates (Morphine) Detected(A ) Not Detected, Indeterminate 07/06/2021 2:10 PM NURSING CLERK [facility] LABORATORY Comment: Cutoff for a positive opiate is greater than 100 ng/ml. This is an unconfirmed screening result to be used for medical purposes only. Amphetamine (d-Amphetamine) Not Detected Not Detected, Indeterminate 07/06/2021 2:10 PM NURSING CLERK [facility] LABORATORY Comment:Cutoff for a negativ e amphetamine is 500 ng/mL or less. Benzodiazepines (Nordiazepam) Not Detected Not Detected, Indeterminate 07/06/2021 2:10 PM NURSING CLERK [facility] LABORATORY Comment:Cutoff for a negativ e benzodiazepine is 150 ng/ml or less. Tricyclic Antidepressants (Desipramine) Not Detected Not Detected, Indeterminate 07/06/2021 2:10 PM NURSING CLERK [facility] LABORATORY Comment:Cutoff for a negativ e tricyclic antidepressant is 300 ng/ml or less. Methadone Not Detected Not Detected, Indeterminate 07/06/2021 2:10 PM NURSING CLERK [facility] LABORATORY Comment:Cutoff for a negativ e methadone is 200 ng/ml or less. Barbiturates (Butalbital) Not Detected Not Detected, Indeterminate 07/06/2021 2:10 PM NURSING CLERK [facility] LABORATORY Comment:Cutoff for a negativ e barbituate is 200 ng/ml or less. Oxycodone Not Detected Not Detected, Indeterminate 07/06/2021 2:10 PM NURSING CLERK [facility] LABORATORY Comment:Cutoff for a negativ e oxycodone is 100 ng/mL or less. Propoxyphene (Norpropoxyphene) Not Detected Not Detected, Indeterminate 07/06/2021 2:10 PM NURSING CLERK [facility] LABORATORY Comment:Cutoff for a negativ e propoxyphene is 300 ng/ml or less. Buprenorphine Not Detected Not Detected, Indeterminate 07/06/2021 2:10 PM NURSING CLERK OX LABORATORY Comment:Cutoff for a negativ e buprenorphine is 10 ng/ml or less. Urine MID-STREAM URINE SPECIMEN / Unknown Non-blood Collection / Unknown 07/05/2021 10:09 AM NURSING CLERK 07/05/2021 10:09 AM NURSING CLERK Deborah Walsh MD LAB - URINE ORDERABL ES OX LABORATORY [facility] [address] Lab (no room number, 1st floor of clinic) [place] [address], [facility] [phone] * (ABNORMAL) Hemoglobin A1c (07/05/2021 10:09 AM NURSING CLERK) Hemoglobin A1C 6.8(H) 0.0 - 5.6 % 07/05/2021 11:24 AM NURSING CLERK LV LABORATORY Comment: Normal <5.7% Prediabetes 5.7-6.4% ?? Diabetes 6.5% or higher Note: Adopted from ADA consensus guidelines. Blood VENOUS BLOOD / Unknown Venipuncture / Unknown 07/05/2021 10:09 AM NURSING CLERK 07/05/2021 10:09 AM NURSING CLERK Deborah Walsh MD LAB - BLOOD ORDERABL ES [facility] [address] [facility] Lab (no room number, 1st floor of clinic) [place] [address], [facility] [phone] * TSH (12/12/2020 2:30 PM CDT) Pathologist [facility] TSH 1.16 0.30 - 5.00 uIU/mL 12/12/2020 3:31 PM CDT [facility] Blood BLOOD SPECIMEN / Unknown Venipuncture / Unknown 12/12/2020 2:30 PM CDT 12/12/2020 2:51 PM CDT Carolina De Dios APRN TRANSPORTATION PROJECT MANAGER LAB - BLOOD ORDERABLES Performing Organization Address City/[facility]/ZIP Co de Phone Number [facility] [address] [place], [place] [address] [place] [address], [facility] [phone] * ALT (12/12/2020 2:30 PM CDT) [facility] ALT 18 0 - 45 U/L 12/12/2020 3:10 PM CDT [facility] Blood BLOOD SPECIMEN / Unknown Venipuncture / Unknown 12/12/2020 2:30 PM CDT 12/12/2020 2:51 PM CDT Carolina De Dios APRN TRANSPORTATION PROJECT MANAGER LAB - BLOOD ORDERABLES [facility] [place] [address], [facility] [phone] * Lipid Profile [LAB18] (03/09/2015 3:11 PM CDT) Cholesterol 112 <200 mg/dL [facility] Comment: LDL Cholesterol is the primary guide to therapy. The NCEP recommends further evaluation of: patients with cholesterol greater than 200 mg/dL if additional risk factors are present, cholesterol greater than 240 mg/dL, triglycerides greater than 150 mg/dL, or HDL less than 40 mg/dL. Triglycerides 60 0 - 150 mg/dL [facility] HDL Cholesterol 69 >50 mg/dL [facility] LDL Cholesterol Calculated 32 0 - 129 mg/dL [facility] Comment: LDL Cholesterol is the primary guide to therapy: LDL-cholesterol goal in high risk patients is <100 mg/dL and in very high risk patients is <70 mg/dL. VLDL-Cholesterol 12 0 - 30 mg/dL [facility] Cholesterol/HDL Ratio 1.6 0.0 - 5.0 [facility] Blood specimen (specimen) 03/09/2015 3:11 PM CDT 03/09/2015 3:12 PM CDT Brittney Daniel APRN TRANSPORTATION PROJECT MANAGER LAB - BLOOD O RDERABLES [facility] [address] [place] [address] from Last 3 Months or Most Recently Relevant to Health Maintenance Advance Directives For more information, please contact: [phone] * Full Code (Latest Code Status on File) Date Activated Date Inactivated Comments 07/09/2021 11:23 AM 07/13/2021 7:43 PM All basic an d advanced life-sustaining interventions are performed as appropriate Question Answer Comments Code status determined by: Discussion with patie nt/ legal decision maker Care Teams Assistant Spa Director Relationship Specialty Start Date End Date Adams Barrera [address] [facility] [address] [place] [address] PCP - General 03/30/20 Celia Kumar MD [address] [id number] Plastic Surgery 04/20/15 Charan Corbin MD 420 [facility] [address] [place], [place] [address] INTERNAL MEDICINE - ENDOCRINOLOGY, DIABETES & METABOLISM 06/19/15 [place] [address] [place] [address] Assigned PCP 03/21/21 Greta Thao APRN TRANSPORTATION PROJECT MANAGER [facility] [place] [address] [place] [address] Nurse Practitioner Cardiology 06/09/23 Greta Thao APRN TRANSPORTATION PROJECT MANAGER [facility] [place] [address] [place] [address] Assigned Heart and Vascular Provider 06/25/23
--- OUTSIDE RECORDS SUMMARY | 2023-10-27 17:14 | XMS_ITS | Encounter Summary ---
Author Organization [facility] Address [address] [place] [address]. [place] [address] Care Team Providers Care Hot Strip Mill Inspector Name Role Phone Celia Kumar Fortino Garcia MD Unavailable [phone] Charan Corbin MD Unavailable [phone] Adams Barrera Primary Care Provider [phone] Deborah Walsh MD Unavailable Greta Thao APRN ROUSTABOUT PUSHER Unavailable [phone] Greta Thao APRN ROUSTABOUT PUSHER Unavailable [phone] Reason for Visit * Reason Comments Urgent Care In between PMD , dio l be out of pain medication on Thursday, has appointment to establish care. Is out of Warfarin , needs enough to get through to Thursday. Needs INR checked today. Encounter Details Date Type Department Care Team (Late st Contact Info) Description 08/27/2023 4:15 PM CDT Office Visit [facility] [place] [address] [place] [address] Ashley Camargo, YULIANA Chronic atrial fibrillation (H) (Primary Dx); Longstanding persistent atrial fibrillation (H); Anticoagulation goal of INR 2 to 3 Social History Tobacco Use Types Packs/Day Years [...] 07/05/2021 How often do you attend chur or baptist services? More than 4 times per year 07/05/2021 Do you belong to any clubs o r organizations such as lutheran groups, unions, fraternal or athletic groups, or [...] Answer Date Recorded PHQ-2 Score 1 07/20/2019 [facility] of Occupat ional Health - [...] place to sleep or slept in a snf (including now)? No 07/05/2021 Adolescent Education Answer [...] Mass Index 38.04 08/27/2023 3:52 PM CDT documented in this encounter Progress Notes * Ashley Camargo PA-C - 08/27/2023 4:15 PM CDT Assessment & Plan: ICD-10-CM 1. Chronic atrial fibrillation (H) I48.20 INR INR INR point of care (finger stick) 2. Longstanding persistent atrial fibrillation (H) I48.11 INR point of care (finger stick) 3. Anticoagulation goal of INR 2 to 3 Z51.81 INR point of care (finger stick) Z79.01 Plan/Clinical Decision Making: Patient comes in since she is in between primary care clinics. Has been with [facility] and will be establishing next week with [facility]. 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 INR goal of 2-3. She was wanting today warfarin and dilaudid that she takes for chronic pain. INR done. She was just able during time waiting to obtain refill of coumadin with [facility]. Discussed that chronic pain management will need to be done by PCP and not done in urgent care setting. INR was sent out instead of done in clinic. Unable to change. INR came back later in evening and 2.37 at goal. No change in INR dosing. Letter written with results and dosing and faxed to [facility], nurse care team. Has scheduled Follow-up next week. At the end of the encounter, I discussed results, diagnosis, medications. Discussed red flags for immediate return to clinic/ER, as well as indications for follow up if no improvement. Patient understood and agreed to plan. Patient was stable for discharge. Ashley Camargo PA-C on 08/27/2023 at 4:20 PM 30 minutes spent on the date of the encounter doing chart review, history and exam, documentation and further activities per the note Subjective: HPI: Brandee is a 63 year old female who presents to clinic today for the following health issues: Chief Complaint Patient presents with Urgent Care In between PMD , will be out of pain medication on Thursday, has appointment to establish care. Is out of Warfarin , needs enough to get through to Thursday. Needs INR checked today. HPI Patient is out of warfarin. Last INR was 1.7mg Patient takes 3mg every night and on Thursday takes 4mg. In between providers. Was at [facility] in [place] and will be seeing doctor at [facility]. Wants to get INR order done. Also wants dilaudid refilled for chronic pain. She would like results and information for nurses at assisted living faxed: Fax [facility] [phone] [place] [phone] [facility] notes: Your next INR will be 3-28-24. This will be your last ACO visit with [facility] Primary Care Anticoagulation Department. You willneed to have your new provider, Dr. Mayer at at the [facility] manage your Warfarin Therapy Plan going forward. Review of Systems Respiratory: Negative for shortness of breath. Cardiovascular: Negative for chest pain. Gastrointestinal: Negative for blood in stool. Genitourinary: Negative for hematuria. No bleeding. Chronic pain. Patient Active Problem List Diagnosis Bariatric surgery status Essential hypertension, benign Joint pain Back pain Acute respiratory failure with hypoxia (H) ADHD Adjustment disorder with depressed mood Allergic rhinitis Anxiety Asthma Bilateral high frequency sensorineural hearing loss Bipolar II disorder (H) Bleeding ulcer Chronic pain disorder Constipation Controlled substance agreement terminated Depressive disorder Diastasis of rectus abdominis Disability examination Gastroesophageal reflux disease Hesitancy of micturition History of acute respiratory distress syndrome (ARDS) Hot flashes due to menopause Insomnia Lacunar stroke (H) Longstanding persistent atrial fibrillation (H) Mild persistent asthma Morbid obesity (H) Narcotic abuse in remission (H) Mixed hyperlipidemia Nasal septal deviation Nasal trauma Nasal valve collapse Neural foraminal stenosis of lumbar spine Osteoarthritis of left glenohumeral joint Recurrent major depressive disorder (H24) Recurrent UTI S/P gastric bypass Psychiatric disorder Spinal stenosis Status post replacement of left shoulder joint Thrombocytopenia (H24) Tobacco dependence Tobacco use Vitamin B12 deficiency Ventral hernia Type 2 diabetes mellitus without complication (H) Excess skin of abdomen Total knee replacement status History of hysterectomy Past Medical History: Diagnosis Date Alcohol abuse Anemia transfusion needed s/p uterine fibroids and gastric bypass Anxiety Arthritis OA Asthma Bipolar 1 disorder CHF (congestive heart failure) Chronic back pain Depression Diabetes mellitus Gastroesophageal reflux disease History of cocaine 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/2010 Per [facility] medical record Hypertension Obesity Paroxysmal atrial fibrillation 2018 Peptic ulcer disease PTSD (post-traumatic stress disorder) Rosacea Stroke 2016 bleed on brain, denies residual Social History Tobacco Use Smoking status: Every Day Packs/day: .1 Types: Hookah, Cigarettes Last attempt to quit: 07/02/2020 Years since quittin.1 Smokeless tobacco: Never Tobacco comments: 3 cigarettes a day Substance Use Topics Alcohol use: Not Currently Comment: former, maybe once at holidays Objective: Vitals: 08/27/23 1552 BP: 110/74 Pulse: 85 Resp: 18 Temp: 97.8 ??F (36.6 ??C) TempSrc: Oral SpO2: 99% Weight: 94.3 kg (208 lb) Height: 1.575 m (5' 2) Physical Exam EXAM: Pleasant, alert, appropriate appearance. NAD. Head Exam: Normocephalic, atraumatic. Chest/Respiratory Exam: CTAB. Cardiovascular Exam: Rhythm is irregular. Skin: no bruises seen. Results: Results for orders placed or performed in visit on 08/27/23 INR Status: Abnormal Result Value Ref Range INR 2.37 (H) 0.85 - 1.15 documented in this encounter Plan of Treatment Upcoming Encounters Date Type Department Care Team (Late st Contact Info) Description 11/13/2023 1:30 PM CDT Office Visit [facility] [place] [address] [facility] [address] [place] [phone] Greta Thao APRN [facility] [place] [address] [place] [address] 12/10/2023 9:30 AM CDT Office Visit [facility] [place] [address] [facility] [address] [place] [address] [place] [address] [place], [place] [address] Scheduled Orders Name Type Priority Associated Diagnoses Orde r Schedule INR point of care (finger stick) Lab Routine Chronic atrial fibrillation (H) Longstanding persistent atrial fibrillation (H) Anticoagulation goal of INR 2 to 3 Ordered: 08/27/2023 documented as of this encounter Procedures Procedure Name Priority Date/Time Associated Diagnosis Comments INR Routine 08/27/2023 4:42 PM CDT Chronic atrial fibrillation (H) documented in this encounter Results * (ABNORMAL) INR (08/27/2023 4:42 PM CDT) INR 2.37(H) 0.85 - 1.15 08/27/2023 7:10 PM CDT LABORATORY Blood BLOOD SPECIMEN / Unknown Venipuncture / Unknown 08/27/2023 4:42 PM CDT 08/27/2023 4:43 PM CDT Ashley Camargo PA-C LAB - BLOOD ORDERAB LES LABORATORY [facility] Acute Care Lab [address] [facility] Lab (1st floor, no room number) [place] [address], [facility] documented in this encounter Visit Diagnoses Diagnosis Chronic atrial fibrillation (H)- Primary Atrial fibrillation Longstanding persistent atrial fibrillation (H) Anticoagulation goal of INR 2 to 3 Encounter for therapeutic drug monitoring documented in this encounter Care Teams Hot Strip Mill Inspector Relationship Specialty Start Date End Date Adams Barrera [address] [address] PCP - General 03/30/20 Celia Kumar MD [address] [facility] [address] [place] [address] Plastic Surgery 04/20/15 Charan Corbin MD [address] [address] INTERNAL MEDICINE - ENDOCRINOLOGY, DIABETES & METABOLISM 06/19/15 [place] [address] [address] [place] [address] Assigned PCP 03/21/21 Greta Thao APRN ROUSTABOUT PUSHER [facility] [place] [address] [place] [address] Nurse Practitioner Cardiology 06/09/23 Greta Thao APRN [facility] [place] [address] [place] [address] Assigned Heart and Vascular Provider 06/25/23 documented as of this encounter
--- OUTSIDE RECORDS SUMMARY | 2023-10-27 17:14 | XMS_ITS | Encounter Summary ---
Author Organization [facility] Address [address] [place] [address] Care Team Providers Care Wind Up Operator Name Role Phone Celia Kumar MD Unavailable [phone] Charan Corbin MD Unavailable [phone] Cleia Kumar MD Unavailable [phone] Adams Barrera Primary Care Provider [phone] Carolina De Dios MARKETING ACCOUNT EXECUTIVE RESEARCH SCHOLAR Unavailable Loyda Deborah Rust MD Unavailable Greta Thao APRN RESEARCH SCHOLAR Unavailable [phone] Greta Thao APRN RESEARCH SCHOLAR Unavailable [phone] Encounter Details Date Type Department Care Team [...] How often do you attend chur or sikh services? More than 4 times per year 07/05/2021 Do you belong to any clubs o r organizations such as hoahaoism groups, unions, fraternal or athletic groups, or [...] Answer Date Recorded PHQ-2 Score 1 07/20/2019 [facility] of Occupat ional Health - Occupational Stress [...] place to sleep or slept in a usp (including now)? No 07/05/2021 Sex and Gender Information Value Date Recorded Sex Assigned at Not on file Gender Identity Not on file Sexual Orientation Not on file COVID-19 Exposure Response Date Recorded In the last month, have you been in contact with someone who was confirmed or suspected to have Coronavirus / COVID-19? No / Unsure 07/05/2021 9:03 AM FACILITIES ADMINISTRATOR documented as of this encounter Plan of Treatment Upcoming Encounters Date Type Department Care Team (Late st Contact Info) Description 11/13/2023 1:30 PM CDT Office Visit [facility] [place] [address] [facility] [address] [place] [phone] Greta Thao APRN [facility] [place] [address] [place] [address] 12/10/2023 9:30 AM CDT Office Visit [facility] [place] [address] [place] [address] [place] [address] [place] [address] documented as of this encounter Visit Diagnoses Not on filedocumented in this encounter Additional Health Concerns Infection Onset Date Last Indicated Resolved Time Rule Out COVID-19 05/22/2023 05/22/2023 05/22/2023 1:25 AM FACILITIES ADMINISTRATOR COVID05/22/2023 05/22/2023 06/12/2023 11:3 9 PM FACILITIES ADMINISTRATOR documented as of this encounter Care Teams Wind Up Operator Relationship Specialty Start Date End Date Adams Barrera [address] [facility] [address] [place] [address] PCP - General 03/30/20 Celia Kumar MD [address] [address] Plastic Surgery 04/20/15 Charan Corbin MD [address] [address] INTERNAL MEDICINE - ENDOCRINOLOGY, DIABETES & METABOLISM 06/19/15 Celia Kumar MD [address] [address] Assigned Surgical Provider 03/23/20 12/20/21 Carolina De Dios APRN RESEARCH SCHOLAR [address] [place] [address] Assigned Heart and Vascular Provider 12/14/20 09/12/22 [place] [address] [place] [address] Assigned PCP 03/21/21 Greta Thao APRN RESEARCH SCHOLAR [facility] [place] [address] [place] [address] Nurse Practitioner Cardiology 06/09/23 Greta Thao APRN RESEARCH SCHOLAR [facility] [address] [place] [address] Assigned Heart and Vascular Provider 06/25/23 documented as of this encounter
--- OUTSIDE RECORDS SUMMARY | 2023-10-27 17:14 | XMS_ITS | Encounter Summary ---
Author Organization [facility] Address [address] [place] [address] Care Team Providers Care Global Consumer Sector Vice President Name Role Phone Celia Kumar Fortino Garcia MD Unavailable [phone] Charan Corbin MD Unavailable [phone] Adams Barrera Primary Care Provider [phone] Deborah Walsh MD Unavailable Greta Thao APRN LIME SLAKER Unavailable [phone] Greta Thao APRN LIME SLAKER Unavailable [phone] Encounter Details Date Type Department Care Team (Latest Contact Info) Description 10/14/2023 Travel Social History Tobacco Use Types Packs/Day [...] file 07/05/2021 How often do you attend [facility] or zoroastrianism services? More than 4 times per year 07/05/2021 Do you belong to any clubs o r organizations such as nondenominational groups, unions, fraternal or athletic groups, or [...] Answer Date Recorded PHQ-2 Score 1 07/20/2019 [facility] of Occupat ional Health - Occupational [...] place to sleep or slept in a custodial (including now)? No 07/05/2021 Adolescent Education Answer [...] Description 11/13/2023 1:30 PM CDT Office Visit [facility] [place] [address] [facility] [address] [place] [phone] Greta Thao APRN [facility] [place] [address] [place] [address] 12/10/2023 9:30 AM CDT Office Visit [facility] Pain Management [place] [address] [facility] [address] [place], [place] [address] [place] [address] [place], [place] [address] documented as of this encounter Visit Diagnoses Not on filedocumented in this encounter Care Teams Global Consumer Sector Vice President Relationship Specialty Start Date End Date Adams Barrera [address] [facility] [address] [place], [place] [phone] PCP - General 03/30/20 Celia Kumar MD [address] [facility] [address] [place], [place] [address] Plastic Surgery 04/20/15 Charan Corbin MD 420 [facility] [address] [place] [address] INTERNAL MEDICINE - ENDOCRINOLOGY, DIABETES & METABOLISM 06/19/15 [place] [address] [place] [address] Assigned PCP 03/21/21 Greta Thao APRN LIME SLAKER [facility] [place] [address] [place] [address] Nurse Practitioner Cardiology 06/09/23 Greta Thao APRN LIME SLAKER [facility] [place] [address] [place] [address] Assigned Heart and Vascular Provider 06/25/23 documented as of this encounter
--- OUTSIDE RECORDS SUMMARY | 2023-10-27 17:14 | XMS_ITS | Encounter Summary ---
Author Organization [facility] Address [address] [place] [address] Care Team Providers Care Ammonium Sulfate Operator Name Role Phone Celia Kumar Fortino Garcia MD Unavailable [phone] Charan Corbin MD Unavailable [phone] Adams Barrera Primary Care Provider [phone] Deborah Walsh MD Unavailable Greta Thao APRN FURNITURE INSPECTOR Unavailable [phone] Greta Thao APRN FURNITURE INSPECTOR Unavailable [phone] Encounter Details Date Type Department Care Team (Latest Contact Info) Description 08/27/2023 Travel Social History Tobacco Use Types Packs/Day [...] file 07/05/2021 How often do you attend [facility] or roman catholic services? More than 4 times per year 07/05/2021 Do you belong to any clubs o r organizations such as episcopalian groups, unions, fraternal or athletic groups, or [...] Answer Date Recorded PHQ-2 Score 1 07/20/2019 [facility] of Occupat ional Health - Occupational [...] place to sleep or slept in a longterm (including now)? No 07/05/2021 Adolescent Education Answer [...] [facility] [place] [address] [facility] [address] [place] [phone] Greta Thao APRN [facility] [place] [address] [place] [phone] 12/10/2023 9:30 AM CDT Office Visit [facility] [place] [address] [facility] [address] [place], [place] [address] [place] [address] [place], [place] [phone] documented as of this encounter Visit Diagnoses Not on filedocumented in this encounter Care Teams Ammonium Sulfate Operator Relationship Specialty Start Date End Date Adams Barrera [address] [facility] [address] [place], [place] [phone] PCP - General 03/30/20 Celia Kumar MD [address] [facility] [address] [place], [place] [address] Plastic Surgery 04/20/15 Charan Corbin MD 420 [facility] [address] [place] [address] INTERNAL MEDICINE - ENDOCRINOLOGY, DIABETES & METABOLISM 06/19/15 [place] [address] [place] [address] Assigned PCP 03/21/21 Greta Thao APRN FURNITURE INSPECTOR [facility] [place] [address] [place] [address] Nurse Practitioner Cardiology 06/09/23 Greta Thao APRN FURNITURE INSPECTOR [facility] [place] [address] [place] [address] Assigned Heart and Vascular Provider 06/25/23 documented as of this encounter
--- OUTSIDE RECORDS SUMMARY | 2023-10-27 17:14 | XMS_ITS | Encounter Summary ---
Author Organization [facility] Address [address] [place] [id number] Care Team Providers Care Wing Commander Name Role Phone JoséCelia MD Unavailable [phone] Charan Corbin MD Unavailable [phone] Adams Barrera Primary Care Provider [phone] Deborah Walsh MD Unavailable Greta Thao APRN WIRE HARNESS DESIGN ENGINEER Unavailable [phone] Greta Thao APRN, CNP Unavailable [phone] Reason for Referral * CV Testing (Routine) - Closed Specialty Diagnoses / Procedures Referred By Contac t Referred To Contact Cardiology Diagnoses Longstanding persistent atrial fibrillation (H) Procedures Adult Holter Monitor 24 hour ZZC AMB BP MONITORING W/SW >=24 HR, RECORD/SCAN/INTRP/RPT ZZHC HOLTER RECORDING 24 HRS ZZHC HOLTER SCAN 24 HRS SD HOLTER RECORDING 24 HRS SD HOLTER SCAN 24 HRS SD AMB BP MONITORING W/SW >=24 HR, RECORD/SCAN/INTRP/RPT HC HOLTER RECORDING 24 HRS HC HOLTER SCAN 24 HRS, ANALYSIS WITH REPORT Greta Thao APRN WIRE HARNESS DESIGN ENGINEER [facility] [address] [place] [address] [facility] [address] [place] [address] Referral ID Status Reason Start Date Expiration Date Visits Re quested Visits Authorized [id number] Closed 06/19/2023 06/18/2024 1 1 Reason for Visit * CV Testing (Routine) - Closed Specialty Diagnoses / Procedures Referred By Katina t Referred To Contact Cardiology Diagnoses Longstanding persistent atrial fibrillation (H) Procedures Adult Holter Monitor 24 hour ZZC AMB BP MONITORING W/SW >=24 HR, RECORD/SCAN/INTRP/RPT ZZHC HOLTER RECORDING 24 HRS ZZHC HOLTER SCAN 24 HRS SD HOLTER RECORDING 24 HRS SD HOLTER SCAN 24 HRS SD AMB BP MONITORING W/SW >=24 HR, RECORD/SCAN/INTRP/RPT HC HOLTER RECORDING 24 HRS HC HOLTER SCAN 24 HRS, ANALYSIS WITH REPORT Greta Thao APRN CNP [facility] [address] [place] [address] [facility] [address] [place] [address] Referral ID Status Reason Start Date Expiration Date Visits Re quested Visits Authorized [id number] Closed 06/19/2023 06/18/2024 1 1 Encounter Details Date Type Department Care Team (Latest Contact Info) Description 10/14/2023 1:30 PM CDT - 10/14/2023 11:59 PM CDT Hospital Encounter [facility] [address] [place] [address] Greta Thao APRN CNP [facility] [address] [place] [address] Longstanding persistent atrial fibrillation (H) Discharge Disposition: [...] often do you attend chur ch or mormon services? More than 4 times per year [...] Answer Date Recorded PHQ-2 Score 1 07/20/2019 [facility] - [...] in a prison (including now)? No 07/05/2021 Adolescent Education Answer [...] lungs every 6 hours as needed 01/02/2019 artificial saliva (BIOTENE DRY MOUTHWASH) LIQD liquid Swish and spit 15 mLs in mouth every 6 hours as needed for dry mouth 12/14/2020 atorvastatin 40 MG PO tablet Take 40 mg by mouth At Bedtime 01/29/2019 azelastine 0.1 % NA nasal sprayIndications:aller gies [place] 1 spray into both nostrils 2 times daily 02/18/2016 BANOPHEN 25 MG capsule Take 25 mg by mouth every 4 hours as needed for sleep 01/28/2021 cyanocobalamin 1000 MCG/ML IJ injection Inject 1 mL into the muscle every 30 days 07/15/2019 diclofenac (VOLTAREN) 1 % topical gel Apply 2 g topically 4 times daily Apply to affected area. 6AM, 12PM, 6PM, 12AM 02/02/2020 DIPHENHYDRAMINE HCL PO Take 25 mg by mouth every 4 hours as needed fluticasone (FLONASE) 50 MCG/ACT nasal spray [place] 1 spray into both nostrils 2 times daily 02/08/2020 fluticasone-salmeterol (ADVAIR) 250-50 MCG/DOSE inhalerIndications:Ast hma Inhale 1 puff into the lungs 2 times daily 12/14/2020 MARY-LANTA 200-200-20 MG/5ML SUSP suspension Take 10 mLs by mouth 4 times daily as needed for indigestion 06/03/2021 hydrocortisone (CORTAID) 1 % external cream Apply topically 4 times daily as needed for rash 06/03/2021 HYDROmorphone (DILAUDID) 2 MG tabletIndications:Open wound Take 1 tablet (2 mg) by mouth every 6 hours as needed for severe pain 12 tablet 06/26/2020 hydrOXYzine (VISTARIL) 50 MG capsuleIndications:Sta tus post total right knee replacement Take 1 capsule (50 mg) by mouth 3 times daily as needed for itching 30 capsule 07/13/2021 Incontinence Supply Disposable (DEPEND FITTED BRIEFS SM/MED) MISC For home use. Will use 2 per day. Size large. 04/28/2018 ipratropium - albuterol 0.5 mg/2.5 mg/3 mL (DUONEB) 0.5-2.5 (3) MG/3ML neb solution Take 1 vial by nebulization 2 times daily 02/25/2021 loratadine (CLARITIN) 10 MG tablet Take 10 mg by mouth daily 01/25/2021 metFORMIN (GLUCOPHAGE) 500 MG tablet Take 500 mg by mouth 2 times daily (with meals) MILK OF MAGNESIA 400 MG/5ML PO suspension Take 30 mLs by mouth daily as needed for constipation 05/18/2019 nystatin 048333 UNIT/GM EX external powder Apply topically 2 times daily as needed 03/19/2019 ondansetron (ZOFRAN-ODT) 4 MG ODT tab Take 4 mg by mouth every 8 hours as needed for nausea pantoprazole (PROTONIX) 40 MG EC tablet Take 40 mg by mouth daily 12/14/2020 polyethylene glycol (MIRALAX) 17 g packet Take 1 packet by mouth 2 times daily prazosin (MINIPRESS) 2 MG capsule Take 2 mg by mouth At Bedtime 06/18/2021 pregabalin (LYRICA) 100 MG capsule Take 100 mg by mouth 3 times daily 06/17/2021 senna-docusate (SENOKOT-S/PERICOLACE) 8.6-50 MG tablet Take 3 tablets by mouth 2 times daily sertraline (ZOLOFT) 100 MG tablet Take 200 mg by mouth daily 01/25/2021 Sharps Container (MSWQBN-R-AVGVZ LOCKING BRACKET) [facility] [place]: calf Strength: 16-20 mmHg Circumference in cm: For calf: Ankle 12, Calf 18.5 , Ankle to calf length 12 . 03/15/2018 SM GAS RELIEF EXTRA STRENGTH 125 MG PO CAPS Take 1 capsule by mouth 4 times daily 07/15/2019 SUMAtriptan (IMITREX) 50 MG tablet Take 50 mg by mouth at onset of headache for migraine May repeat x1 in 2 hours if needed. 06/10/2021 torsemide 20 MG PO tablet Take 50 mg by mouth daily 04/25/2019 Vaginal Lubricant (REPLENS) GEL Place vaginally every 72 hours as needed (dryness) 09/23/2019 warfarin ANTICOAGULANT (COUMADIN) 2 MG tablet Take 3-4 mg by mouth See Admin Instructions Take 3 mg on Sundays. Take 4 mg all other days of the week. zolpidem (AMBIEN) 5 MG tablet Take 5 mg by mouth At Bedtime 06/17/2021 documented as of this encounter Plan of Treatment Upcoming Encounters Date Type Department Care Team (Late st Contact Info) Description 11/13/2023 1:30 PM CDT Office Visit [facility] [place] [address] [facility] [address] [place] [phone] Greta Thao APRN [facility] [address] [place] [phone] 12/10/2023 9:30 AM CDT Office Visit [facility] [place] [address] [facility] [address] [place] [address] [place] [address] [place] [address] Pending Results Name Type Priority Associated Diagnoses Date /Time Adult Holter Monitor 24 hour Cardiac Services Routine Longstanding persistent atrial fibrillation (H) 10/14/2023 2:18 PM CDT Scheduled Orders Name Type Priority Associated Diagnoses Orde r Schedule Adult Holter Monitor 24 hour Cardiac Services Routine Longstanding persistent atrial fibrillation (H) 1 Occurrences starting 10/14/2023 until 10/14/2023 documented as of this encounter Visit Diagnoses Diagnosis Longstanding persistent atrial fibrillation (H) documented in this encounter Care Teams Wing Commander Relationship Specialty Start Date End Date Adams Barrera [address] [place] [id number] PCP - General 03/30/20 Celia Kumar MD [address] [place] [id number] Plastic Surgery 04/20/15 Charan Corbin MD [address] [place] [address] [id number] INTERNAL MEDICINE - ENDOCRINOLOGY, DIABETES & METABOLISM 06/19/15 [place] [address] [place] [address] Assigned PCP 03/21/21 Greta Thao APRN WIRE HARNESS DESIGN ENGINEER [facility] [address] [place] [phone] Nurse Practitioner Cardiology 06/09/23 Greta Thao APRN WIRE HARNESS DESIGN ENGINEER [facility] [address] [place] [phone] Assigned Heart and Vascular Provider 06/25/23 documented as of this encounter
--- OUTSIDE RECORDS SUMMARY | 2023-10-27 17:14 | XMS_ITS | Encounter Summary ---
Author Organization [facility] Address [address] [place] [address] Care Team Providers Care Tab Cutting Machine Operator Name Role Phone José Celia Garcia MD Unavailable [phone] Charan Corbin MD Unavailable [phone] Adams Barrera Primary Care Provider [phone] Deborah Walsh MD Unavailable Greta Thao APRN DEVELOPMENT DISABILITY SPECIALIST Unavailable [phone] Greta Thao APRN DEVELOPMENT DISABILITY SPECIALIST Unavailable [phone] Reason for Visit * Reason Comments Lab Only Encounter Details Date Type Department Care Team ([facility] st Contact Info) Description 08/27/2023 Documentation Only [facility] [address] [place] [address] Adams Barrera [facility] [address] [place] [address] Lab Only Social History Tobacco Use Types Packs/Day Years [...] How often do you attend chur or hinduism services? More than 4 times per year 07/05/2021 Do you belong to any clubs o r organizations such as pentecostalism groups, unions, fraternal or athletic groups, or [...] Answer Date Recorded PHQ-2 Score 1 07/20/2019 [facility] - [...] place to sleep or slept in a residential (including now)? No 07/05/2021 Adolescent Education Answer Date Record ed Getting School Help Needed Not on file 02/20 Sex and Gender Information Value Date Recorded Sex Assigned at Not on file Gender Identity Not on file Sexual Orientation Not on file documented as of this encounter Progress Notes * Kinsey Lujan - 08/27/2023 2:54 PM CDT Patient has an upcoming lab only appt and currently has no future orders in their chart. Per Appt notes she is needing an INR. Please place future orders as needed. If this appointment is not needed please have your team contact patient to cancel.Thanks! documented in this encounter Plan of Treatment Upcoming Encounters Date Type Department Care Team (Late st Contact Info) Description 11/13/2023 1:30 PM CDT Office Visit [facility] [address] [facility] [address] [place] [phone] Greta Thao APRN [facility] [address] [place] [phone] 12/10/2023 9:30 AM CDT Office Visit [facility] [place] [facility] [address] [place], [place] [address] [place] [address] [place] [address] documented as of this encounter Visit Diagnoses Not on filedocumented in this encounter Care Teams Tab Cutting Machine Operator Relationship Specialty Start Date End Date Adams Barrera [address] [facility] [address] [place] [address] PCP - General 03/30/20 Celia Kumar MD [address] [facility] [address] [place], [place] [phone] Plastic Surgery 04/20/15 Charan Corbin MD [address] [facility] [address] [place], [place] [address] INTERNAL MEDICINE - ENDOCRINOLOGY, DIABETES & METABOLISM 06/19/15 [place] [address] [place] [address] Assigned PCP 03/21/21 Greta Thao APRN DEVELOPMENT DISABILITY SPECIALIST [facility] [address] [place] [address] Nurse Practitioner Cardiology 06/09/23 Greta Thao APRN DEVELOPMENT DISABILITY SPECIALIST [facility] [address] [place] [address] Assigned Heart and Vascular Provider 06/25/23 documented as of this encounter
--- OUTSIDE RECORDS SUMMARY | 2023-10-27 17:14 | XMS_ITS | Referral Summary ---
Author Organization [facility] Address [address] [place] [address] Care Team Providers Care Patient Access Name Role Phone José Celia Garcia MD Unavailable [phone] Charan Corbin MD Unavailable Adams Barrera Primary Care Provider [phone] Deborah Walsh MD Unavailable Greta Thao APRN RISK CONTROL ANALYST Unavailable [phone] Greta Thao APRN RISK CONTROL ANALYST Unavailable [phone] Encounters Date Type Department Care Team Description 10/15/2023 Telephone [facility] [place] [address] [facility] [address] [place] [address] Haley Khanna MD Injection Inquiry 10/15/2023 Travel 10/14/2023 Travel 10/14/2023 1:30 PM CDT - 10/14/2023 11:59 PM CDT Hospital Encounter [facility] [address] [place] [address] Greta Thao APRN RISK CONTROL ANALYST Longstanding persistent atrial fibrillation (H) Discharge Disposition: Home or Self Care 08/27/2023 4:15 PM CDT Office Visit [facility] Urgent Care [place] [address] [place] [phone] Ashley Camargo PA-C Chronic atrial fibrillation (H) (Primary Dx); Longstanding persistent atrial fibrillation (H); Anticoagulation goal of INR 2 to 3 08/27/2023 Travel 08/27/2023 Documentation Only [facility] [address] [place] [address] Adams Barrera Lab Only 08/10/2023 Telephone [facility] [address] [facility] [address] [place] [address] Greta Thao APRN CNP Medication Question (adderall) from Last 3 Months Allergies Active Allergy [...] as needed for constipation 05/18/2019 Active nystatin 814055 UNIT/GM EX external powder Apply topically 2 [...] azelastine 0.1 % NA nasal sprayIndications:al lergies [place] 1 spray into both nostrils 2 times daily 02/18/2016 Active cyanocobalamin 1000 MCG/ML IJ injection Inject 1 mL into the muscle every 30 days 07/15/2019 Active diclofenac (VOLTAREN) 1 % topical gel Apply 2 g topically 4 times daily Apply to affected area. 6AM, 12PM, 6PM, 12AM 02/02/2020 Active fluticasone (FLONASE) 50 MCG/ACT nasal spray [place] 1 spray into both nostrils 2 times daily 02/08/2020 Active Incontinence Supply Disposable (DEPEND FITTED BRIEFS SM/MED) MISC For home use. Will use 2 per day. Size large. 04/28/2018 Active Vaginal Lubricant (REPLENS) GEL Place vaginally every 72 hours as needed (dryness) 09/23/2019 Active Sharps Container (FVTPUJ-W-XPONQ LOCKING BRACKET) MISC Length: calf Strength: 16-20 [...] Overview: Added automatically from request for surgery [id number] Nasal septal deviation 02/08/2020 Nasal trauma 02/08/2020 Nasal valve collapse 02/08/2020 Asthma 02/03/2019 Overview: Asthma. mild. only with URI. Asthma. mild. only with URI. Longstanding persistent atrial fibrillation 09/2018 Status post replacement of left shoulder joint 1 Diastasis of rectus abdominis 01/29/2018 Lacunar stroke 01/20/2018 Overview: Right parietal per [facility] Recurrent major depressive disorder (H24) 2017 Overview: [...] UTI 04/23/2015 Bariatric surgery status 03/23/2015 Overview: ORYGBDr [place] Joint pain 03/23/2015 Back pain 03/23/2015 [...] file 07/05/2021 How often do you attend [facility] or [facility] services? More than 4 times per year 07/05/2021 Do you belong to any clubs o r organizations such as catholic groups, unions, fraternal or athletic groups, or [...] Answer Date Recorded PHQ-2 Score 1 07/20/2019 [facility] Occupat ional Health - Occupational Stress [...] place to sleep or slept in a jail (including now)? No 07/05/2021 Adolescent Education Answer [...] Description 11/13/2023 1:30 PM CDT Office Visit [facility] [place] [address] [facility] [address] [place] [phone] Greta Thao APRN [facility] [place] [address] [place] [phone] 12/10/2023 9:30 AM CDT Office Visit [facility] Pain [facility] [place] [address] [facility] [address] [place], [place] [phone] [place] [address] [place], [place] [address] Medical Devices Implanted Type Area Warper Tender Device Identifier Shelf Expiration Date Model / Serial / Lot Cement Surgical Tobramycin 6197-9-001 - [id number] Implanted:Qty : 2 on 07/09/2021 by Jamin Siegel MD at [facility] Cement, Bone Right: Knee [employer] 07/01/2022 6197-9-001 / / [id number] Imp Insert Jj Attune Medial Jaquelin Pat 38mm [id number] - [id number] Implanted:Qty : 1 on 07/09/2021 by Jamin Siegel MD at [facility] Total Joint Componen t/Insert Right: Knee [employer] [id number] 09/28/2025 [id number] / / [id number] Imp Comp Fem Jj Attune Post Stab Rt Ash Sz5 [id number] - [id number] Implanted:Qty : 1 on 07/09/2021 by Jamin Siegel MD at [facility] Total Joint Componen t/Insert Right: Knee [employer] [id number] 01/29/2026 [id number] / / [id number] Stem 50mm X 14mm - [id number] Implanted:Qty : 1 on 07/09/2021 by Jamin Siegel MD at [facility] Total Joint Componen t/Insert Right: Knee [employer] [id number] 02/28/2031 [id number] / / [id number] Tibial Base Sz 5 - [id number] Implanted:Qty : 1 on 07/09/2021 by Jamin Siegel MD at [facility] Total Joint Componen t/Insert Right: Knee [employer] [id number] 04/30/2030 [id number] / / [id number] Imp Insert Jj Attune Post Stab Fx Br Sys Sz5 12mm [id number] - [id number] Implanted:Qty : 1 on 07/09/2021 by Jamin Siegel MD at [facility] Total Joint Componen t/Insert Right: Knee [employer] [id number] 07/29/2024 [id number] / / [id number] Procedures Procedure Name Priority Date/Time Associated Diagnosis Comments INR Routine 08/27/2023 4:42 PM CDT Chronic atrial fibrillation (H) CBC WITH PLATELETS & DIFFERENTIAL STAT 05/22/2023 12:39 AM HEALTHCARE RECRUITER BASIC METABOLIC PANEL STAT 05/22/2023 12:[address] CHEST PULMONARY EMBOLISM W CONTRAST STAT 07/11/2021 11:08 AM HEALTHCARE RECRUITER URINE DRUG SCREEN CLINIC Routine 07/05/2021 10:09 AM HEALTHCARE RECRUITER Encounter for therapeutic drug monitoring HEMOGLOBIN A1C Add-On 07/05/2021 10:09 AM HEALTHCARE RECRUITER Type 2 diabetes mellitus without complication, without long-term current use of insulin (H) TSH Routine 12/12/2020 2:30 PM CDT Longstanding persistent atrial fibrillation (H) ALT Routine 12/12/2020 2:30 PM CDT Longstanding persistent atrial fibrillation (H) MA SCREENING BILATERAL W/ RILEY Routine 07/29/2019 11:25 AM HEALTHCARE RECRUITER LIPID PROFILE Routine 03/09/2015 3:11 PM CDT Bariatric surgery status from Last 3 Months or Most Recently Relevant to Health Maintenance Results * (ABNORMAL) INR (08/27/2023 4:42 PM CDT) Pathologist [facility] INR 2.37(H) 0.85 - 1.15 08/27/2023 7:10 PM CDT [facility] Blood BLOOD SPECIMEN / Unknown Venipuncture / Unknown 08/27/2023 4:42 PM CDT 08/27/2023 4:43 PM CDT Ashley Camargo PA-C LAB - BLOOD ORDERAB LES LABORATORY [facility] Acute Care Lab [address] [facility] Lab (1st floor, no room number) [place] [address], [facility] * (ABNORMAL) Basic metabolic panel (BMP) (05/22/2023 12:39 AM HEALTHCARE RECRUITER) Pathologist [facility] Sodium 142 135 - 145 mmol/L 05/22/2023 1:17 AM HEALTHCARE RECRUITER LABORATORY Comment:Reference intervals for this test were updated on 02/24/2023 to more accurately reflect our healthy population. There may be differences in the flagging of prior results with similar values performed with this method. Interpretation of those prior results can be made in the context of the updated reference intervals. Potassium 3.7 3.4 - 5.3 mmol/L 05/22/2023 1:17 AM HEALTHCARE RECRUITER LABORATORY Chloride 106 98 - 107 mmol/L 05/22/2023 1:17 AM HEALTHCARE RECRUITER LABORATORY Carbon Dioxide (CO2) 23 22 - 29 mmol/L 05/22/2023 1:17 AM HEALTHCARE RECRUITER LABORATORY Anion Gap 13 7 - 15 mmol/L 05/22/2023 1:17 AM HEALTHCARE RECRUITER LABORATORY Urea Nitrogen 10.3 8.0 - 23.0 mg/dL 05/22/2023 1:17 AM HEALTHCARE RECRUITER LABORATORY Creatinine 0.50(L) 0.51 - 0.95 mg/dL 05/22/2023 1:17 AM HEALTHCARE RECRUITER LABORATORY GFR Estimate >90 >60 mL/min/1. 73m2 05/22/2023 1:17 AM HEALTHCARE RECRUITER LABORATORY Calcium 8.2(L) 8.8 - 10.2 mg/dL 05/22/2023 1:17 AM HEALTHCARE RECRUITER LABORATORY Glucose 137(H) 70 - 99 mg/dL 05/22/2023 1:17 AM HEALTHCARE RECRUITER LABORATORY Blood BLOOD SPECIMEN / Unknown Venipuncture / Unknown 05/22/2023 12:39 AM HEALTHCARE RECRUITER 05/22/2023 12:47 AM HEALTHCARE RECRUITER Champ Madrid MD LAB - BLOOD ORDERABL ES [facility] Acute Care Lab [address] [facility] Lab (1st floor, no room number) [place] [address], [facility] [phone] * CT Chest Pulmonary Embolism w Contrast (07/11/2021 11:08 AM HEALTHCARE RECRUITER) Anatomical Region Laterality Modality Chest, SUBRAD CT BODY, UMP CT CHEST Computed Tomography 07/11/2021 10:5 4 AM HEALTHCARE RECRUITER Impressions 07/11/2021 11:27 AM HEALTHCARE RECRUITER IMPRESSION: 1. ??No evidence pulmonary embolism. 2. ??Coronary atherosclerosis. 3. ??Possible pulmonary arterial hypertension. Narrative 07/11/2021 11:27 AM HEALTHCARE RECRUITER EXAM: CT CHEST PULMONARY EMBOLISM W CONTRAST LOCATION: [facility] DATE/TIME: 07/11/2021 10:54 AM INDICATION: PE [...] CT CHEST PULMONARY EMBOLISM W CONTRAST LOCATION: [facility] DATE/TIME: 07/11/2021 10:54 AM INDICATION: PE [...] Possible pulmonary arterial hypertension. Kj Regan DO IMG CT ORDERABLES * (ABNORMAL) Drug Abuse Screen Panel 13, Urine (Pain Care Package) - lab collect (07/05/2021 10:09 [facility]) Cannabinoids (66-pnw-7-carboxy -9-THC) Not Detected Not Detected, Indeterminate 07/06/2021 2:10 PM HEALTHCARE RECRUITER [facility] Comment:Cutoff for a negativ e cannabinoid is 50 ng/mL or less. Phencyclidine Not Detected Not Detected, Indeterminate 07/06/2021 2:10 PM HEALTHCARE RECRUITER [facility] Comment:Cutoff for a negativ e PCP is 25 ng/mL or less. Cocaine (Benzoylecgonine) Not Detected Not Detected, Indeterminate 07/06/2021 2:10 PM HEALTHCARE RECRUITER [facility] Comment:Cutoff for a negativ e cocaine is 150 ng/ml or less. Methamphetamine (d-Methamphetamin e) Not Detected Not Detected, Indeterminate 07/06/2021 2:10 PM HEALTHCARE RECRUITER [facility] Comment:Cutoff for a negativ e methamphetamine is 500 ng/ml or less. Opiates (Morphine) Detected(A ) Not Detected, Indeterminate 07/06/2021 2:10 PM HEALTHCARE RECRUITER [facility] Comment: Cutoff for a positive opiate is greater than 100 ng/ml. This is an unconfirmed screening result to be used for medical purposes only. Amphetamine (d-Amphetamine) Not Detected Not Detected, Indeterminate 07/06/2021 2:10 PM HEALTHCARE RECRUITER [facility] Comment:Cutoff for a negativ e amphetamine is 500 ng/mL or less. Benzodiazepines (Nordiazepam) Not Detected Not Detected, Indeterminate 07/06/2021 2:10 PM HEALTHCARE RECRUITER [facility] Comment:Cutoff for a negativ e benzodiazepine is 150 ng/ml or less. Tricyclic Antidepressants (Desipramine) Not Detected Not Detected, Indeterminate 07/06/2021 2:10 PM HEALTHCARE RECRUITER [facility] Comment:Cutoff for a negativ e tricyclic antidepressant is 300 ng/ml or less. Methadone Not Detected Not Detected, Indeterminate 07/06/2021 2:10 PM HEALTHCARE RECRUITER [facility] Comment:Cutoff for a negativ e methadone is 200 ng/ml or less. Barbiturates (Butalbital) Not Detected Not Detected, Indeterminate 07/06/2021 2:10 PM HEALTHCARE RECRUITER [facility] Comment:Cutoff for a negativ e barbituate is 200 ng/ml or less. Oxycodone Not Detected Not Detected, Indeterminate 07/06/2021 2:10 PM HEALTHCARE RECRUITER [facility] Comment:Cutoff for a negativ e oxycodone is 100 ng/mL or less. Propoxyphene (Norpropoxyphene) Not Detected Not Detected, Indeterminate 07/06/2021 2:10 PM HEALTHCARE RECRUITER [facility] Comment:Cutoff for a negativ e propoxyphene is 300 ng/ml or less. Buprenorphine Not Detected Not Detected, Indeterminate 07/06/2021 2:10 PM HEALTHCARE RECRUITER [facility] Comment:Cutoff for a negativ e buprenorphine is 10 ng/ml or less. Urine MID-STREAM URINE SPECIMEN / Unknown Non-blood Collection / Unknown 07/05/2021 10:09 AM HEALTHCARE RECRUITER 07/05/2021 10:09 AM HEALTHCARE RECRUITER Deborah Walsh MD LAB - URINE ORDERABL ES [facility] LAB[facility] [address] Lab (no room number, 1st floor of [facility]) [place] [address], [place] [phone] * (ABNORMAL) Hemoglobin A1c (07/05/2021 10:09 AM HEALTHCARE RECRUITER) Hemoglobin A1C 6.8(H) 0.0 - 5.6 % 07/05/2021 11:24 AM HEALTHCARE RECRUITER LABORATORY Comment: Normal <5.7% Prediabetes 5.7-6.4% ?? Diabetes 6.5% or higher Note: Adopted from ADA consensus guidelines. Blood VENOUS BLOOD / Unknown Venipuncture / Unknown 07/05/2021 10:09 AM HEALTHCARE RECRUITER 07/05/2021 10:09 AM HEALTHCARE RECRUITER Deborah Walsh MD LAB - BLOOD ORDERABL ES LABORATORY [facility] [address] [facility] Lab (no room number, 1st floor of clinic) [place] [address], [place] [phone] * TSH (12/12/2020 2:30 PM CDT) TSH 1.16 0.30 - 5.00 uIU/mL 12/12/2020 3:31 PM CDT [facility] Blood BLOOD SPECIMEN / Unknown Venipuncture / Unknown 12/12/2020 2:30 PM CDT 12/12/2020 2:51 PM CDT Carolina De Dios ANJALI RISK CONTROL ANALYST LAB - BLOOD ORDERABLES [facility] [address] [place] [address] [place] [address], [facility] [phone] * ALT (12/12/2020 2:30 PM CDT) ALT 18 0 - 45 U/L 12/12/2020 3:10 PM CDT [facility] Blood BLOOD SPECIMEN / Unknown Venipuncture / Unknown 12/12/2020 2:30 PM CDT 12/12/2020 2:51 PM CDT Carolina Toribioyeimijulia ANJALI RISK CONTROL ANALYST LAB - BLOOD ORDERABLES Performing Organization Address City/[facility]/ZIP Co de Phone Number [facility] [address] [place] [address] [place] [address], [facility] [phone] * Lipid Profile [LAB18] (03/09/2015 3:11 PM CDT) Cholesterol 112 <200 mg/dL [facility] Comment: LDL Cholesterol is the primary guide to therapy. The NCEP recommends further evaluation of: patients with cholesterol greater than 200 mg/dL if additional risk factors are present, cholesterol greater than 240 mg/dL, triglycerides greater than 150 mg/dL, or HDL less than 40 mg/dL. Triglycerides 60 0 - 150 mg/dL [facility] HDL Cholesterol 69 >50 mg/dL [facility] LDL Cholesterol Calculated 32 0 - 129 mg/dL [facility] Comment: LDL Cholesterol is the primary guide to therapy: LDL-cholesterol goal in high risk patients is <100 mg/dL and in very high risk patients is <70 mg/dL. VLDL-Cholesterol 12 0 - 30 mg/dL [facility] Cholesterol/HDL Ratio 1.6 0.0 - 5.0 [facility] Blood specimen (specimen) 03/09/2015 3:11 PM CDT 03/09/2015 3:12 PM CDT Brittney Daniel APRN RISK CONTROL ANALYST LAB - BLOOD O RDERABLES [facility] [address] [place] [address] from Last 3 Months or Most Recently Relevant to Health Maintenance Advance Directives For more information, please contact: [phone] * Full Code (Latest Code Status on File) Date Activated Date Inactivated Comments 07/09/2021 11:23 AM 07/13/2021 7:43 PM All basic an d advanced life-sustaining interventions are performed as appropriate Question Answer Comments Code status determined by: Discussion with patie nt/ legal decision maker Care Teams Patient Access Relationship Specialty Start Date End Date Adams Barrera [address] [facility] [address] [place], [place] [id number] PCP - General 03/30/20 Celia Kumar MD [address] [facility] [address] [facility] [address] [place] [address] Plastic Surgery 04/20/15 Charan Corbin MD [address] [facility] [address] [place], [place] [address] INTERNAL MEDICINE - ENDOCRINOLOGY, DIABETES & METABOLISM 06/19/15 [place] [address] [address] [place] [address] Assigned PCP 03/21/21 Greta Thao APRN RISK CONTROL ANALYST [facility] [place] [address] [place] [address] Nurse Practitioner Cardiology 06/09/23 Greta Thao APRN RISK CONTROL ANALYST [facility] [place] [address] [place] [address] Assigned Heart and Vascular Provider 06/25/23
--- OUTSIDE RECORDS SUMMARY | 2023-10-27 17:14 | XMS_ITS | Encounter Summary ---
Author Organization [facility] Address [address] [place] [address] Care Team Providers Care Compensation/Benefits Specialist Name Role Phone José Celia Garcia MD Unavailable [phone] Charan Corbin MD Unavailable [phone] Adams Barrera Primary Care Provider [phone] Deborah Walsh MD Unavailable Greta Thao APRN ANESTHESIOLOGIST Unavailable [phone] Greta Thao APRN ANESTHESIOLOGIST Unavailable [phone] Reason for Visit * Reason Onset Date Comments Medication Question 08/10/2023 adderall Encounter Details Date Type Department Care Team (Late st Contact Info) Description 08/10/2023 Telephone [facility] [place] [address] [facility] [address] [place] [address] Greta Thao APRN ANESTHESIOLOGIST [facility] [place] [address] [place] [address] Medication Question (adderall) Social History Tobacco Use Types Packs/Day Years [...] How often do you attend chur or spiritism services? More than 4 times per year 07/05/2021 Do you belong to any clubs o r organizations such as religious groups, unions, fraternal or athletic groups, or [...] Answer Date Recorded PHQ-2 Score 1 07/20/2019 [facility] Occupat ionco Health - Occupational Stress Questionnaire Answer Date [...] encounter Miscellaneous Notes * Telephone Encounter - Alesha Melvin RN - 08/12/2023 10:29 AM CDT Noted. Phone call to patient, reviewed the below information from Greta Thao. She states that Orlin De Dios had told her previously that it was safe to take. Again reviewed the information from Greta. She states she has taken many times over the course of her life due to her hx of ADHD and hasnot had any trouble. She is scheduled for follow-up with Greta on 09-11-23, she states she will try a small dose for now and discuss further with Greta at her apt. * Telephone Encounter - Greta Thao APRN CNP - 08/12/2023 10:25 AM CDT Adderall is not ideal given her cardiac history, with modestly increased risk of cardiovascular disease with stimulant properties (namely >BP, HR). That being said there is no substantial data on long-term use and risk of arrhythmias, [place] and development of cardiomyopathy. * Telephone Encounter - Alesha Melvin RN - 08/10/2023 2:10 PM CDT Noted. Pt inquiring about Adderall and if its safe for her to take due to her cardiac history. Pt with a hx of persistent atrial fibrillation, heart rates assumed to be controlled, though patient no showed for her holter montior and has not rescheduled. Additional hx of tachy mediated cardiomyopathy, last EF 40% on Echo 01-11-23. She is on no antiarrythmic medication, continues Warfarin. She is scheduled for follow-up with Greta Thao on 09-11-23. Will route to Greta and call patient with any recommendations. * Telephone Encounter - Mimi Rutledge - 08/10/2023 1:47 PM CDT [facility] Call Center Phone Message May a detailed message be left on voicemail: yes Reason for Call: Other: Patient called requesting to speak with a member of her care team. Would like to know if it is safe for her heart to take adderall. Please call back to further discuss. Action Taken: Message routed to: Other: Cardiology Travel Screening: Not Applicable Thank you! [facility] documented in this encounter Plan of Treatment Upcoming Encounters Date Type Department Care Team (Late st Contact Info) Description 11/13/2023 1:30 PM CDT Office Visit [facility] [address] [facility] [address] [place] [address] Greta Thao APRN CNP [facility] [place] [address] [place] [address] 12/10/2023 9:30 AM CDT Office Visit [facility] Pain Management [place] [address] [place], [place] [address] [place] [address] [place] [id number] documented as of this encounter Visit Diagnoses Not on filedocumented in this encounter Care Teams Compensation/Benefits Specialist Relationship Specialty Start Date End Date Adams Barrera [address] [facility] [address] [place] [address] PCP - General 03/30/20 Celia Kumar MD [address] [facility] [address] [place] [address] Plastic Surgery 04/20/15 Charan Corbin MD [address] [facility] [address] [place] [address] INTERNAL MEDICINE - ENDOCRINOLOGY, DIABETES & METABOLISM 06/19/15 [place] [address] [place] [address] Assigned PCP 03/21/21 Greta Thao APRN ANESTHESIOLOGIST [facility] [place] [address] [place] [address] Nurse Practitioner Cardiology 06/09/23 Greta Thao APRN ANESTHESIOLOGIST [facility] [place] [address] [place] [address] Assigned Heart and Vascular Provider 06/25/23 documented as of this encounter
--- OUTSIDE RECORDS SUMMARY | 2023-10-27 17:14 | XMS_ITS | Encounter Summary ---
Author Organization [facility] Address [address] [place] [address] Care Team Providers Care Elderly Caregiver Name Role Phone Celia Kumar Fortino Garcia MD Unavailable [phone] Charan Corbin MD Unavailable [phone] [place] Barrera Primary Care Provider [phone] Deborah Walsh MD Unavailable Greta Thao APRN FELLED SEAM OPERATOR CHAINSTITCH Unavailable [phone] Greta Thao APRN FELLED SEAM OPERATOR CHAINSTITCH Unavailable [phone] Reason for Visit * Reason Onset Date Comments Injection Inquiry 10/15/2023 Encounter Details Date Type Department Care Team (Late st Contact Info) Description 10/15/2023 Telephone [facility] [address] [place] [address] [place] [address] [place] [address] Injection Inquiry Social History Tobacco Use Types Packs/Day Years [...] often do you attend chur ch or gnosticist services? More than 4 times per year 07/05/2021 Do you belong to any clubs o r organizations such as episcopal groups, unions, fraternal or athletic groups, or [...] Answer Date Recorded PHQ-2 Score 1 07/20/2019 [facility] - [...] encounter Miscellaneous Notes * Telephone Encounter - Mariluz Palomino RN - 10/16/2023 9:46 AM CDT Called pt. Lm to call back to discuss upcoming appt. Chart review: Is self referred for med/spine consultation. This would not be for ongoing management like a pain consultation would be. In light of symptoms, -urinary incontinence- may be best to reschedule with Med/Spine provided that can see her prior to November (when current appt is). Advise that is followed by Pain Clinic, we would not co manage. Any pain consult referral placed would be a one time consult as PCP is in system. Mariluz SHAH, RN Vice President Of Talent Management [facility] * Telephone Encounter - Sue Elizalde - 10/15/2023 3:47 PM CDTSummary: Injection Inquiry Pt is scheduled with MD Jey. Pt is wondering if MD Jey does trigger point injections or spinal injections. Pt stated she has urine incontinence at night. Please CALL pt to discuss. Thank you. documented in this encounter Plan of Treatment Upcoming Encounters Date Type Department Care Team (Late st Contact Info) Description 11/13/2023 1:30 PM CDT Office Visit [facility] [place] [address] [facility] [address] [place] [phone] Greta Thao APRN [facility] [place] [address] [place] [address] 12/10/2023 9:30 AM CDT Office Visit [facility] [place] [address] [facility] [address] [place], [place] [address] [place] [address] [place], [place] [address] documented as of this encounter Visit Diagnoses Not on filedocumented in this encounter Care Teams Elderly Caregiver Relationship Specialty Start Date End Date [place] Barrera [address] [address] PCP - General 03/30/20 Celia Kumar MD 420 [facility] 195 [place], [place] [address] Plastic Surgery 04/20/15 Charan Corbin MD 420 [facility] 101 [place], [place] [address] INTERNAL MEDICINE - ENDOCRINOLOGY, DIABETES & METABOLISM 06/19/15 [place] [address] [address] [place] [address] Assigned PCP 03/21/21 Greta Thao APRN FELLED SEAM OPERATOR CHAINSTITCH [facility] [place] [address] [place] [address] Nurse Practitioner Cardiology 06/09/23 Greta Thao APRN FELLED SEAM OPERATOR CHAINSTITCH [facility] [place] [address] [place] [address] Assigned Heart and Vascular Provider 06/25/23 documented as of this encounter
--- OUTSIDE RECORDS SUMMARY | 2023-10-27 17:15 | XMS_ITS | Encounter Summary ---
Author Organization [facility] Address [address] [place] [address] Care Team Providers Care Bullet Lubricant Mixer Name Role Phone Celia Kumar MD Unavailable [phone] Charan Corbin MD Unavailable [phone] Celia Kumar MD Unavailable [phone] [place] Barrera Primary Care Provider [phone] Carolina De Dios CLIENT SOLUTIONS DIRECTOR BLOOD BANK CREDIT CLERK Unavailable Loyda Deborah Rust MD Unavailable Greta Thao APRN BLOOD BANK CREDIT CLERK Unavailable + [phone] Greta Thao APRN BLOOD BANK CREDIT CLERK Unavailable + [phone] Encounter Details Date Type Department Care Team (Late st Contact Info) Description 11/02/[address] [facility] [address] [place] [address] Outside, Provider Social History Tobacco Use Types Packs/Day Years Used Date Smoking Tobacco: Former Cigarettes Smokeless Tobacco: Never Comments:smokes maybe 1 cig/ [...] Description 11/13/2023 1:30 PM CDT Office Visit [facility] [place] [address] [facility] [address] [place] [address] Greta Thao APRN [facility] HEART & [facility] [place] [address] [place] [address] 12/10/2023 9:30 AM CDT Office Visit [facility] [place] [address] [facility] [address] [place], [place] [address] [place] [address] [place], [place] [address] documented as of this encounter Visit Diagnoses Not on filedocumented in this encounter Additional Health Concerns Infection Onset Date Last Indicated Resolved Time Rule Out COVID-19 05/22/2023 05/22/2023 05/22/2023 1:25 AM MATERIALS PLANNING ANALYST COVID-19 05/22/2023 05/22/2023 06/12/2023 11:3 9 PM MATERIALS PLANNING ANALYST documented as of this encounter Care Teams Bullet Lubricant Mixer Relationship Specialty Start Date End Date [place] Barrera [address] [facility] 195 [place], [place] [address] PCP - General 03/30/20 Celia Kumar MD [address] [facility] 195 [place] [address] Plastic Surgery 04/20/15 Charan Corbin MD 420 [facility] 101 [place] [address] INTERNAL MEDICINE - ENDOCRINOLOGY, DIABETES & METABOLISM 06/19/15 Celia Kumar MD 420 [facility] 195 [place] [address] Assigned Surgical Provider 03/23/20 12/20/21 Carolina De Dios APRN BLOOD BANK CREDIT CLERK 420 [facility] 195 [place] [address] Assigned Heart and Vascular Provider 12/14/20 09/12/22 [place] [address] [place] [address] Assigned PCP 03/21/21 Greta Thao APRN BLOOD BANK CREDIT CLERK [facility] [place] [address] [place] [address] Nurse Practitioner Cardiology 06/09/23 Greta Thao APRN BLOOD BANK CREDIT CLERK [facility] [place] [address] [place] [address] Assigned Heart and Vascular Provider 06/25/23 documented as of this encounter
--- OUTSIDE RECORDS SUMMARY | 2023-10-27 17:15 | XMS_ITS | Encounter Summary ---
Author Organization [facility] Address [address] [place] [address] Care Team Providers Care Press Machine Feeder Name Role Phone Celia Kumar MD Unavailable [phone] Charan Corbin MD Unavailable [phone] Celia Kumar MD Unavailable [phone] [place] Barrera Primary Care Provider [phone] Carolina De Dios AIRPLANE DISPATCHER POLITICAL ADVISOR Unavailable Loyda Deborah Rust MD Unavailable Greta Thao APRN POLITICAL ADVISOR Unavailable + [phone] Greta Thao APRN POLITICAL ADVISOR Unavailable + [phone] Encounter Details Date Type Department Care Team [...] Description 11/13/2023 1:30 PM CDT Office Visit [facility] [place] [address] [facility] [address] [place] [address] Greta Thao APRN [facility] HE[facility] [place] [address] [place] [address] 12/10/2023 9:30 AM CDT Office Visit [facility] [place] [address] [facility] [address] [place], [place] [address] [place] [address] [place], [place] [address] documented as of this encounter Visit Diagnoses Not on filedocumented in this encounter Additional Health Concerns Infection Onset Date Last Indicated Resolved Time Rule Out COVID-19 05/22/2023 05/22/2023 05/22/2023 1:25 AM FOOD SERVICE HOTEL RUNNER COVID-19 05/22/2023 05/22/2023 06/12/2023 11:3 9 PM FOOD SERVICE HOTEL RUNNER documented as of this encounter Care Teams Press Machine Feeder Relationship Specialty Start Date End Date [place] Barrera [address] [facility] 195 [place], [place] [address] PCP - General 03/30/20 Celia Kumar MD [address] [facility] 195 [place], [place] [address] Plastic Surgery 04/20/15 Charan Corbin MD [address] [facility] 101 [place], [place] [address] INTERNAL MEDICINE - ENDOCRINOLOGY, DIABETES & METABOLISM 06/19/15 Celia Kumar MD [address] [place] [address] Assigned Surgical Provider 03/23/20 12/20/21 Carolina De Dios APRN POLITICAL ADVISOR [address] [place] [address] Assigned Heart and Vascular Provider 12/14/20 09/12/22 [place] [address] [place] [address] Assigned PCP 03/21/21 Greta Thao APRN POLITICAL ADVISOR [facility]ASCULAR [place] [address] [place] [address] Nurse Practitioner Cardiology 06/09/23 Greta Thao APRN POLITICAL ADVISOR [facility]ASC[facility] [place] [address] [place] [address] Assigned Heart and Vascular Provider 06/25/23 documented as of this encounter
--- OUTSIDE RECORDS SUMMARY | 2023-10-27 17:15 | XMS_ITS | Encounter Summary ---
Author Organization [facility] Address [address] [place] [address] Care Team Providers Care Chainstitch Tunnel Elastic Operator Name Role Phone Celia Kumar MD Unavailable [phone] Charan Corbin MD Unavailable [phone] Celia Kumar MD Unavailable [phone] [place] Barrera Primary Care Provider [phone] Carolina De Dios APRN DIRECTOR FUNDS DEVELOPMENT Unavailable Loyda Deborah Rust MD Unavailable Greta Thao APRN DIRECTOR FUNDS DEVELOPMENT Unavailable + [phone] Greta Thao APRN DIRECTOR FUNDS DEVELOPMENT Unavailable + [phone] Reason for Visit * Reason Onset Date Comments Medication Question 06/26/2021 Rx Vyvanse Encounter Details Date Type Department Care Team (Late st Contact Info) Description 06/26/2021 Telephone [facility] [address] [facility] [address] [place] [address] Carolina De Dios APRN DIRECTOR FUNDS DEVELOPMENT Medication Question (Rx Vyvanse ) Social History Tobacco Use Types Packs/Day Years Used Date Smoking Tobacco: Former Cigarettes Q uit: 07/02/2020 Hookah Smokeless Tobacco: Never [...] COVID-19? No / Unsure 06/19/2021 7:08 AM UNIT AIDE documented as of this encounter Miscellaneous Notes * Telephone Encounter - Acacia Choudhary - 07/02/2021 10:56 AM CST Patient called and spoke with telegraphic typewriter operator, she states she is still waiting to hear from care team.Pleasecall patient at [phone]. AIDE * Telephone Encounter - Katerin Isabel - 06/26/2021 12:58 PM CST [facility] Phone Message May a detailed message be left on voicemail: no Reason for Call: Other: Brandee called to request clarification if Rx Vyvanse can be used safely without crossing the heart? If so, please provide a wriiten E- mail with approval for use to [email or web address]. If you have any questions, please reach out to Brandee's daughter Keyla Rivas at . Action Taken: Other: [facility] Travel Screening: Not Applicable AIDE documented in this encounter Plan of Treatment Upcoming Encounters Date Type Department Care Team (Late st Contact Info) Description 11/13/2023 1:30 PM CDT Office Visit [facility] [address] [place] [phone] Greta Thao APRN DIRECTOR FUNDS DEVELOPMENT [facility]ART & VASCULAR [place] [address] [place] [address] 12/10/2023 9:30 AM CDT Office Visit [facility] [place] [address] [place] [address] [place] [address] [place] [address] documented as of this encounter Visit Diagnoses Not on filedocumented in this encounter Additional Health Concerns Infection Onset Date Last Indicated Resolved Time Rule Out COVID-19 05/22/2023 05/22/2023 05/22/2023 1:25 AM UNIT AIDE COVID-19 05/22/2023 05/22/2023 06/12/2023 11:3 9 PM UNIT AIDE documented as of this encounter Care Teams Chainstitch Tunnel Elastic Operator Relationship Specialty Start Date End Date [place] Barrera [address] [facility] 195 [place], [place] [address] PCP - General 03/30/20 Celia Kumar MD [address] [facility] 195 [place], [place] [address] Plastic Surgery 04/20/15 Charan Corbin MD [address] [facility] 101 [place] [address] INTERNAL MEDICINE - ENDOCRINOLOGY, DIABETES & METABOLISM 06/19/15 Celia Kumar MD [address] [facility] 195 [place] [address] Assigned Surgical Provider 03/23/20 12/20/21 Carolina De Dios APRN DIRECTOR FUNDS DEVELOPMENT [address] [facility] 195 [place] [address] Assigned Heart and Vascular Provider 12/14/20 09/12/22 [place] [address] [address] [place] [address] Assigned PCP 03/21/21 Greta Thao APRN DIRECTOR FUNDS DEVELOPMENT [facility] [place] [address] [place] [address] Nurse Practitioner Cardiology 06/09/23 Greta Thao APRN DIRECTOR FUNDS DEVELOPMENT [facility] [place] [address] [place] [address] Assigned Heart and Vascular Provider 06/25/23 documented as of this encounter
--- OUTSIDE RECORDS SUMMARY | 2023-10-27 17:15 | XMS_ITS | Encounter Summary ---
Author Organization [facility] Address [address] [place] [address] Care Team Providers Care Fixed Income Director Name Role Phone Celia Kumar MD Unavailable [phone] Charan Corbin MD Unavailable [phone] Celia Kumar MD Unavailable [phone] [place] Barrera Primary Care Provider [phone] Carolina De Dios COPPER TAPPER DIRECTOR GROUP SALES Unavailable Loyda Deborah Rust MD Unavailable Greta Thao COPPER TAPPER DIRECTOR GROUP SALES Unavailable + [phone] Greta Thao APRN DIRECTOR GROUP SALES Unavailable + [phone] Encounter Details Date Type Department Care Team (Late st Contact Info) Description 07/02/2020 Records - [facility] CONVERSION Priscilla Mckay MD [address] [address] Social History Tobacco Use Types Packs/Day Years [...] COVID-19? Unable to assess 07/05/2020 1:28 PM BAILER TENDERS SUPERVISOR documented as of this encounter Plan of Treatment Upcoming Encounters Date Type Department Care Team (Late st Contact Info) Description 11/13/2023 1:30 PM CDT Office Visit [facility] [place] [address] [facility] [address] [place] [address] Greta Thao APRN [facility] HEART & VASCULAR [place] [address] [place] [address] 12/10/2023 9:30 AM CDT Office Visit [facility] Pain Management [place] [address] [facility] [address] [place], [place] [address] [place] [address] [place] [address] documented as of this encounter Visit Diagnoses Not on filedocumented in this encounter Additional Health Concerns Infection Onset Date Last Indicated Resolved Time Rule Out COVID-19 05/22/2023 05/22/2023 05/22/2023 1:25 AM BAILER TENDERS SUPERVISOR COVID-19 05/22/2023 05/22/2023 06/12/2023 11:3 9 PM BAILER TENDERS SUPERVISOR documented as of this encounter Care Teams Fixed Income Director Relationship Specialty Start Date End Date [place] Barrera [address] [facility] 195 [place], [place] [address] PCP - General 03/30/20 Celia Kumar MD [address] [facility] 195 [place], [place] [address] Plastic Surgery 04/20/15 Charan Corbin MD [address] [facility] 101 [place] [address] INTERNAL MEDICINE - ENDOCRINOLOGY, DIABETES & METABOLISM 06/19/15 Celia Kumar MD 420 [facility] 195 [place] [address] Assigned Surgical Provider 03/23/20 12/20/21 Carolina De Dios APRN DIRECTOR GROUP SALES [address] [facility] 195 [place] [address] Assigned Heart and Vascular Provider 12/14/20 09/12/22 [place] [address] [place] [address] Assigned PCP 03/21/21 Greta Thao APRN DIRECTOR GROUP SALES [facility]ART & VASCULAR [place] [address] [place] [address] Nurse Practitioner Cardiology 06/09/23 Greta Thao APRN DIRECTOR GROUP SALES [facility]ART & VASCULAR [place] [address] [place] [address] Assigned Heart and Vascular Provider 06/25/23 documented as of this encounter
--- OUTSIDE RECORDS SUMMARY | 2023-10-27 17:15 | XMS_ITS | Encounter Summary ---
Author Organization [facility] Address [address] [place] [address] Care Team Providers Care Social Services Specialist Name Role Phone Celia Kumra MD Unavailable [phone] Charan Corbin MD Unavailable [phone] Celia Kumar MD Unavailable [phone] [place] Barrera Primary Care Provider [phone] Carolina De Dios FOOTWEAR STITCHER JEWELRY FACER Unavailable Loyda Deborah Rust MD Unavailable Greta Thao FOOTWEAR STITCHER JEWELRY FACER Unavailable + [phone] Greta Thao APRN JEWELRY FACER Unavailable + [phone] Encounter Details Date Type Department Care Team (Late st Contact Info) Description 06/25/2020 Records - [facility] [place] [address] [place] [address] Zoraida Ellis, RN Social History [...] COVID-19? No / Unsure 06/28/2020 1:07 PM PEARLER documented as of this encounter Progress Notes * Zoraida Ellis, RN - 06/25/2020 12:15 PM CST 05/23/20 0001 Discharge Planning Patient expects to be discharged to: Assisted Living Facility Living Arrangements Alone Type of Residence Assisted living Do you have stairs? No Support Systems Other (Comment) (Help from assisted living staff) Pt/Rep Education / Interventions Discuss d/c LER documented in this encounter Plan of Treatment Upcoming Encounters Date Type Department Care Team (Late st Contact Info) Description 11/13/2023 1:30 PM CDT Office Visit [facility] [place] [address] [facility] [address] [place] [address] Greta Thao APRN [facility] HEART & VASCULAR [place] [address] [place] [address] 12/10/2023 9:30 AM CDT Office Visit [facility] Pain Management [place] [address] [facility] [address] [place] [address] [place] [address] [place] [address] documented as of this encounter Visit Diagnoses Not on filedocumented in this encounter Additional Health Concerns Infection Onset Date Last Indicated Resolved Time Rule Out COVID-19 05/22/2023 05/22/2023 05/22/2023 1:25 AM [place]AR[place]ER COVID-19 05/22/2023 05/22/2023 06/12/2023 11:3 9 PM [place] documented as of this encounter Care Teams Social Services Specialist Relationship Specialty Start Date End Date [place] Barrera [address] [place] [address] [facility] 195 [place] [address] PCP - General 03/30/20 Celia Kumar MD 420 [facility] 195 [place] [address] Plastic Surgery 04/20/15 Charan Corbin MD 420 [facility] 101 [place] [address] INTERNAL MEDICINE - ENDOCRINOLOGY, DIABETES & METABOLISM 06/19/15 Celia Kumar MD 420 [facility] 195 [place] [address] Assigned Surgical Provider 03/23/20 12/20/21 Carolina De Dios APRN JEWELRY FACER 420 [facility] 195 [place] [address] Assigned Heart and Vascular Provider 12/14/20 09/12/22 [place] [address] [place] [address] Assigned PCP 03/21/21 Greta Thao APRN JEWELRY FACER [facility] [place] [address] [place] [address] Nurse Practitioner Cardiology 06/09/23 Greta Thao APRN JEWELRY FACER [facility]ART & [facility]ASCULAR [place] [address] [place] [address] Assigned Heart and Vascular Provider 06/25/23 documented as of this encounter
--- OUTSIDE RECORDS SUMMARY | 2023-10-27 17:15 | XMS_ITS | Encounter Summary ---
Author Organization [facility] Address [address] [place] [address] Care Team Providers Care Bonding Molder Name Role Phone Celia Kumar MD Unavailable [phone] Charan Corbin MD Unavailable [phone] Celia Kumar MD Unavailable [phone] [place] Barrera Primary Care Provider [phone] Carolina De Dios GAS PROCESSING PLANT OPERATOR BODY CORPORATE MANAGER Unavailable Loyda Deborah Rust MD Unavailable Greta Thao APRN BODY CORPORATE MANAGER Unavailable + [phone] Greta Thao APRN BODY CORPORATE MANAGER Unavailable + [phone] Encounter Details Date Type Department Care Team (Late st Contact Info) Description 03/14/2021 Documentation Only INTERFACED REPORT Unknown, Provider Social History Tobacco Use Types Packs/Day Years Used Date Smoking Tobacco: Former Cigarettes Q uit: 01/31/2020 Smokeless Tobacco: Never Comments:smokes [...] 11/13/2023 1:30 PM CDT Office Visit [facility] [place] [address] [facility] [address] [place] [address] Greta Thao APRN [facility] HEART & VASCULAR [place] [address] [place] [address] 12/10/2023 9:30 AM CDT Office Visit [facility] Pain Management [place] [address] [facility] [address] [place], [place] [phone] [place] [address] [place], [place] [address] documented as of this encounter Visit Diagnoses Not on filedocumented in this encounter Additional Health Concerns Infection Onset Date Last Indicated Resolved Time Rule Out COVID-19 05/22/2023 05/22/2023 05/22/2023 1:25 AM SHIPPING AND RECEIVING COORDINATOR COVID-19 05/22/2023 05/22/2023 06/12/2023 11:3 9 PM SHIPPING AND RECEIVING COORDINATOR documented as of this encounter Care Teams Bonding Molder Relationship Specialty Start Date End Date [place] Barrera 420 [facility] 195 [place], [place] [address] PCP - General 03/30/20 Celia Kumar MD 420 [facility] 195 [place] [address] Plastic Surgery 04/20/15 Charan Corbin MD 420 [facility] 101 [place] [address] INTERNAL MEDICINE - ENDOCRINOLOGY, DIABETES & METABOLISM 06/19/15 Celia Kumar MD 420 [facility] 195 [place] [address] Assigned Surgical Provider 03/23/20 12/20/21 Carolina De Dios APRN BODY CORPORATE MANAGER [address] [address] Assigned Heart and Vascular Provider 12/14/20 09/12/22 [place] [address] [place] [address] Assigned PCP 03/21/21 Greta Thao APRN BODY CORPORATE MANAGER [facility]ART [facility]ASCULAR [place] [address] [place] [address] Nurse Practitioner Cardiology 06/09/23 Greta Thao APRN BODY CORPORATE MANAGER [facility]ART & VASCULAR [place] [address] [place] [address] Assigned Heart and Vascular Provider 06/25/23 documented as of this encounter
--- OUTSIDE RECORDS SUMMARY | 2023-10-27 17:15 | XMS_ITS | Encounter Summary ---
Author Organization [place] Address [address] [place] [address] Care Team Providers Care Equipment Technician Name Role Phone Celia Kumar MD Unavailable [phone] Charan Corbin MD Unavailable [phone] Celia Kumar MD Unavailable [phone] [place] Barrera Primary Care Provider [phone] Carolina De Dios MACHINIST 2ND SHIFT VARITYPE OPERATOR Unavailable Loyda Deborah Rust MD Unavailable Greta Thao MACHINIST 2ND SHIFT VARITYPE OPERATOR Unavailable + [phone] Greta Thao APRN VARITYPE OPERATOR Unavailable + [phone] Encounter Details Date Type Department Care Team (Late st Contact Info) Description 10/17/2020 Records - [facility] CONVERSION Priscilla Mckay MD [address] [address] Social History Tobacco Use Types Packs/Day Years [...] Description 11/13/2023 1:30 PM CDT Office Visit [facility] Heart Care [place] [address] [facility] [address] [place] [phone] Greta Thao APRN [facility]ART [facility] [place] [address] [place] [phone] 12/10/2023 9:30 AM CDT Office Visit [facility] Pain Management [place] [address] [facility] [address] [place], [place] [address] [place] [address] [place], [place] [address] documented as of this encounter Visit Diagnoses Not on filedocumented in this encounter Additional Health Concerns Infection Onset Date Last Indicated Resolved Time Rule Out COVID-19 05/22/2023 05/22/2023 05/22/2023 1:25 AM TECHNICAL COORDINATOR COVID-19 05/22/2023 05/22/2023 06/12/2023 11:3 9 PM TECHNICAL COORDINATOR documented as of this encounter Care Teams Equipment Technician Relationship Specialty Start Date End Date [place] Barrera [address] [facility] [address] [place], [place] [address] PCP - General 03/30/20 Celia Kumar MD [address] [facility] [address] [place], [place] [address] Plastic Surgery 04/20/15 Charan Corbin MD [address] [facility] [address] [place] [address] INTERNAL MEDICINE - ENDOCRINOLOGY, DIABETES & METABOLISM 06/19/15 Celia Kumar MD [address] [facility] [address] [place] [address] Assigned Surgical Provider 03/23/20 12/20/21 Carolina De Dios APRN VARITYPE OPERATOR [address] [facility] [address] [place] [address] Assigned Heart and Vascular Provider 12/14/20 09/12/22 [place] [address] [place] [address] Assigned PCP 03/21/21 Greta Thao APRN VARITYPE OPERATOR [facility]ART & VASCULAR [place] [address] [place] [address] Nurse Practitioner Cardiology 06/09/23 Greta Thao APRN VARITYPE OPERATOR [facility]ASC[facility] [place] [address] [place] [address] Assigned Heart and Vascular Provider 06/25/23 documented as of this encounter
--- OUTSIDE RECORDS SUMMARY | 2023-10-27 17:15 | XMS_ITS | Encounter Summary ---
Author Organization [place] Address [address] [place] [address] Care Team Providers Care Laborer Driver Name Role Phone Celia Kumar MD Unavailable [phone] Charan Corbin MD Unavailable [phone] Celia Kumar MD Unavailable [phone] [place] Barrera Primary Care Provider [phone] Carolina De Dios PLATFORM BEATER LINUX UNIX SYSTEM ADMINISTRATOR Unavailable Loyda Deborah Rust MD Unavailable Greta Thao PLATFORM BEATER LINUX UNIX SYSTEM ADMINISTRATOR Unavailable + [phone] Greta Thao APRN LINUX UNIX SYSTEM ADMINISTRATOR Unavailable + [phone] Encounter Details Date Type Department Care Team (Late Contact Info) Description 06/05/2021 Documentation Only INTERFACED REPORT Unknown, Provider Social History Tobacco Use Types Packs/Day Years Used Date Smoking Tobacco: Some Days Cigarettes Hookah Smokeless Tobacco: Never Comments:smokes maybe 1 [...] Department Care Team (Late Contact Info) Description 11/13/2023 1:30 PM CDT Office Visit [facility] Heart [facility] [place] [address] [facility] [address] [place] [phone] Greta Thao APRN [facility] HEART & VASCULAR [place] [address] [place] [phone] 12/10/2023 9:30 AM CDT Office Visit [facility] Pain Management [place] [address] [place], [place] [phone] [place] [address] [place], [place] [address] documented as of this encounter Visit Diagnoses Not on filedocumented in this encounter Additional Health Concerns Infection Onset Date Last Indicated Resolved Time Rule Out COVID-19 05/22/2023 05/22/2023 05/22/2023 1:25 AM LOADING UNIT TOOL SETTER COVID-19 05/22/2023 05/22/2023 06/12/2023 11:3 9 PM LOADING UNIT TOOL SETTER documented as of this encounter Care Teams Laborer Driver Relationship Specialty Start Date End Date [place] Barrera [address] [facility] [address] [place], [place] [address] PCP - General 03/30/20 Celia Kumar MD [address] [facility] [address] [place], [place] [address] Plastic Surgery 04/20/15 Charan Corbin MD [address] [facility] [address] [place], [place] [address] INTERNAL MEDICINE - ENDOCRINOLOGY, DIABETES & METABOLISM 06/19/15 Celia Kumar MD [address] [address] Assigned Surgical Provider 03/23/20 12/20/21 Carolina De Dios APRN LINUX UNIX SYSTEM ADMINISTRATOR [address] [address] Assigned Heart and Vascular Provider 12/14/20 09/12/22 [place] [address] [address] [place] [address] Assigned PCP 03/21/21 Greta Thao APRN LINUX UNIX SYSTEM ADMINISTRATOR [facility]ART [facility]ASCULAR [place] [address] [place] [address] Nurse Practitioner Cardiology 06/09/23 Greta Thao APRN LINUX UNIX SYSTEM ADMINISTRATOR [facility]ART & VASCULAR [place] [address] [place] [address] Assigned Heart and Vascular Provider 06/25/23 documented as of this encounter
--- OUTSIDE RECORDS SUMMARY | 2023-10-27 17:15 | XMS_ITS | Encounter Summary ---
Author Organization [place] Address [address] [place] [address] Care Team Providers Care Car Washer Name Role Phone Celia Kumar MD Unavailable [phone] Charan Corbin MD Unavailable [phone] Celia Kumar MD Unavailable [phone] [place] Barrera Primary Care Provider [phone] Carolina De Dios PLUMBER APPRENTICE SUPERVISOR BLASTING Unavailable Loyda Deborah Rust MD Unavailable Greta Thao APRN SUPERVISOR BLASTING Unavailable + [phone] Greta Thao APRN SUPERVISOR BLASTING Unavailable + [phone] Encounter Details Date Type Department Care Team [...] CDT Office Visit [facility] [place] [address] [facility] [address] [place] [phone] Greta Thao APRN [facility] HEART & VASCULAR [place] [address] [place] [phone] 12/10/2023 9:30 AM CDT Office Visit [facility] [place] [address] [facility] [address] [place], [place] [address] [place] [address] [address] [place], [place] [phone] documented as of this encounter Visit Diagnoses Not on filedocumented in this encounter Additional Health Concerns Infection Onset Date Last Indicated Resolved Time Rule Out COVID-19 05/22/2023 05/22/2023 05/22/2023 1:25 AM BARRER AND TACKER COVID-19 05/22/2023 05/22/2023 06/12/2023 11:3 9 PM BARRER AND TACKER documented as of this encounter Care Teams Car Washer Relationship Specialty Start Date End Date [place] Barrera [address] [facility] [address] [place], [place] [phone] PCP - General 03/30/20 Celia Kumar MD [address] [facility] [address] [place], [place] [address] Plastic Surgery 04/20/15 Charan Corbin MD [address] [facility] [address] [place], [place] [address] INTERNAL MEDICINE - ENDOCRINOLOGY, DIABETES & METABOLISM 06/19/15 Celia Kumar MD [address] [place] [address] Assigned Surgical Provider 03/23/20 12/20/21 Carolina De Dios APRN SUPERVISOR BLASTING [address] [place] [address] Assigned Heart and Vascular Provider 12/14/20 09/12/22 [place] [address] [place] [address] Assigned PCP 03/21/21 Greta Thao APRN SUPERVISOR BLASTING [facility]ART [facility] VASCULAR [place] [address] [place] [address] Nurse Practitioner Cardiology 06/09/23 Greta Thao APRN SUPERVISOR BLASTING [facility] VASCULAR [place] [address] [place] [address] Assigned Heart and Vascular Provider 06/25/23 documented as of this encounter
== END 2023-10-23 21:07 | disposition home or self-care (01) ==
LOC: AMB 10-27 17:06
PROVIDERS: Visit Provider Emergency Medicine
DX: R41.82 Altered mental status, unspecified (principal)
CPT/HCPCS: A0998

== ENCOUNTER 2023-11-17 23:53 | Outpatient (CLI) | payer OTHER, SELFPAY ==
--- OUTSIDE RECORDS SUMMARY | 2023-11-30 08:34 | XMS_ITS | Clinical Summary ---
Author Organization [facility] Address [address] [place] [address] Care Team Providers Care Facing Cutting Machine Operator Name Role Phone Elsewhere, Pcp Primary Care Provider Unavailabl e Source Comments Patient records contain information from all sites at [facility]. For routine questions regarding patient records, call [phone] during business hours, M-F 8:00 AM - 5:00 PM Central Time. Record requests for emergency care only can be directed to [phone] at any time.[facility] Allergies Active Allergy Reactions Criticality Noted Date [...] Dispensed Refills Start Date End Date Status dilTIAZem CD (Cardizem CD) 180 mg 24 hr capsule Take 1 capsule (180 mg total) by mouth 2 (two) times a day. 60 capsule 3 11/26/19 24 Active sertraline (for_ZOLOFT) 100 mg tablet Take 200 mg by mouth daily. 03/17/20 17 Suspended zolpidem (for_AMBIEN) 5 mg tablet Take 5 mg by mouth at bedtime. 1 04/14/20 17 Suspended polyethylene glycol (for_MIRALAX) 17 gram powder packet Take 17 g by mouth daily. Mix in 4-8 ounces of water or juice and drink two times daily Suspended ONETOUCH DELICA LANCETS 33 gauge misc TEST 2 TIMES PER WEEK 3 07/19/19 18 Suspended lancets misc One touch delica lancets 33g Dispense item covered by pt ins. E11.9 NIDDM type II - Test 2 times per week 07/19/19 18 Suspended budesonide-formote rol (for_SYMBICORT) 80-4.5 mcg/actuation inhaler Inhale 2 puffs 2 (two) times a day. Rinse mouth with water after use to reduce aftertaste and incidence of candidiasis. Do not swallow. 024 Discontinued (Therapy completed) ipratropium-albute rol (for_DUO-NEB) 0.5-2.5 mg/3 mL nebulizer solution Inhale 3 mL by nebulization 2 (two) times a day as needed for wheezing. Take at 7:00 am, 4:00 pm Suspended acetaminophen (TYLENOL) 500 mg tablet Take 1,000 mg by mouth every 6 (six) hours as needed. Take at 7:00 am, 12:00 pm, 5:00 pm, 10:00 pm Suspended magnesium hydroxide (magnesium hydroxide) 400 mg/5 mL suspension Take 30 mL by mouth at bedtime as needed (constipation). 024 Discontinued (Therapy completed) hydrocortisone (CORTIZONE) 1 % ointment Apply topically to hemorrhoid two times daily as needed Suspended diphenhydrAMINE (BENADRYL) 25 mg capsule Take 25 mg by mouth every 4 (four) hours as needed for itching. 024 Discontinued (Therapy completed) aluminum-magnesium hydroxide 200-200 mg/5 mL suspension Take 30 mL by mouth 3 (three) times a day with meals. Shake Well. Discontinued (Therapy completed) lisinopril (PRINIVIL,ZESTRIL) 10 mg tablet Take 1 tablet (10 mg total) by mouth daily. 90 tablet 02/09/20 Suspended Additional Information torsemide (DEMADEX) 20 mg tablet Take 2 tablets (40 mg total) by mouth daily. 180 tablet 02/09/20 Suspended Additional Information pregabalin (LYRICA) 100 mg capsule Take 1 capsule (100 mg total) by mouth 3 (three) times a day. Take at 7:00 am, 4:00 pm, 8:00 pm 90 capsule 02/08/20 Discontinued (Therapy completed) terbinafine (LamISIL) 1 % cream 11/23/19 Discontinued (Therapy completed) omeprazole (PriLOSEC) [address] capsule Take 20 mg by mouth every morning before breakfast. 04/13/20 13 Suspended nebulizer accessories kit For home use. Length of need: 12 months 03/16/20 Suspended miscellaneous medical supply misc Length: calf Strength: 16-20 mmHg Circumference in cm: For calf: Ankle 12, Calf 18.5 , Ankle to calf length 12 . 03/15/20 18 Suspended blood glucose strip-disp meter kit Check blood sugar every Thursday and at rotating times Dispense item covered by pt ins. E11.65 NIDDM type II, controlled 06/06/19 Suspended dextroamphetamine- amphetamine (ADDERALL) 10 mg tablet Take 10 mg by mouth 2 (two) times a day. 024 Discontinued (Therapy completed) gdfdi-s-dwmzlffeuu ase 300 unit capsule Take 300 Units by mouth. 12/18/19 Discontinued (Error) Xanax 0.5 mg tablet Take 0.5 mg by mouth 2 (two) times a day as needed. 06/18/19 Suspended busPIRone (BUSPAR) 10 mg tablet Take 15 mg by mouth every 6 (six) hours as needed (anxiety). 07/06/19 Suspended clindamycin (CLEOCIN) 150 mg capsule Take 600 mg by mouth daily as needed. 01/04/20 21 024 Discontinued (Therapy completed) ergocalciferol (DRISDOL) 50,000 Unit capsule Take 50,000 Units by mouth over 168 hr. 01/24/20 21 024 Discontinued (Therapy completed) fluticasone propion-salmeteroL 250-50 mcg/dose diskus inhaler Inhale 1 puff 2 (two) times a day. 12/15/19 21 Suspended haloperidoL (HALDOL) 1 mg tablet 1 mg 4 (four) times a day as needed. 01/31/20 23 Suspended ketoconazole (NIZORAL) 2 % shampoo 1 Application as needed. 11/13/19 22 Suspended loperamide (IMODIUM A-D) 2 mg capsule Take 2 mg by mouth 4 (four) times a day as needed. 01/31/20 23 Suspended metFORMIN (GLUCOPHAGE) 500 mg tablet Take 500 mg by mouth. 01/22/20 21 024 Discontinued (Therapy completed) multivitamin (FLINTSTONES) chewable Take two daily Suspended rOPINIRole (REQUIP) 0.5 mg tablet Take by mouth daily. 07/08/19 24 024 Discontinued (Therapy completed) saliva substitution (Biotene Dry Mouth Oral Rinse) mouthwash Take 15 mL by mouth every 6 (six) hours as needed. 12/15/19 21 024 Discontinued (Therapy completed) sennosides-docusat e sodium (SENOKOT-S) 8.6-50 mg per tablet Take 1 tablet by mouth 2 (two) times a day. 09/29/19 21 Suspended tacrolimus (PROTOPIC) 0.1 % ointment Apply 1 Application topically as directed. 1-2 times daily to feet for nerve itching 07/21/19 24 Suspended triamcinolone (KENALOG) 0.1 % cream APPLY THIN LAYER TO ITCHY AREA OF SKIN 1-2X DAILY FOR UP TO 2 WEEKS AT A TIME , TAKE 2 WEEKS OF THEN REPEAT NEEDED FOR FLARES 11/13/19 22 Suspended fluticasone propionate (FLONASE) 50 mcg/actuation nasal spray Administer 1 spray into each nostril 2 (two) times a day. 16 g 11 07/30/19 24 Suspended Additional Information azelastine (ASTELIN) 137 mcg/spray (0.1 %) nasal spray Administer 1 spray into each nostril 2 (two) times a day. 30 mL 3 07/30/19 Suspended Additional Information nystatin (NYSTOP) 100,000 unit/gram powder Apply topically 2 (two) times a day as needed (rash/irritation). 30 g 11 08/05/19 Suspended Additional Information cyanocobalamin (VITAMIN B12) 1,000 mcg tablet Take 1 tablet (1,000 mcg total) by mouth daily. 90 tablet 3 08/10/19 Suspended Additional Information SUMAtriptan (IMITREX) 50 mg tablet Take 1 tablet (50 mg total) by mouth as needed for migraine. May repeat dose once in 2 hours if migraine is unresolved. Do not exceed 200 mg in 24 hours. 20 tablet 11 08/12/19 Suspended Additional Information haloperidoL (HALDOL) 0.5 mg tablet 08/10/19 024 Discontinued (Therapy completed) ondansetron ODT (ZOFRAN-ODT) 4 mg disintegrating tablet Dissolve 1 tablet (4 mg total) in the mouth every 8 (eight) hours as needed for nausea or vomiting. 10 tablet 08/13/19 Suspended Additional Information metoprolol tartrate (LOPRESSOR) 50 mg tablet Take 1 tablet (50 mg total) by mouth 2 (two) times a day. 180 tablet 08/13/19 024 Discontinued (Stop Taking at Discharge) loratadine (CLARITIN) 10 mg tablet Take 1 tablet (10 mg total) by mouth daily. 90 tablet 3 08/13/19 Suspended Additional Information atorvastatin (LIPITOR) 40 mg tablet Take 1 tablet (40 mg total) by mouth at bedtime. 90 tablet 08/13/19 Suspended Additional Information simethicone (MYLICON) 125 mg chewable tablet Chew 1 tablet (125 mg total) 4 (four) times a day as needed for flatulence. Take at 7:00 am, 12:00 pm, 5:00 pm, 8:00 pm 180 tablet 1 08/13/19 Suspended Additional Information diaper,brief,adult ,disposable misc Use daily as needed for incontinence. 32 each 08/13/19 Suspended Additional Information Ventolin HFA 90 mcg/actuation inhaler Inhale 2 puffs every 4 (four) hours as needed for shortness of breath. 6.7 g 2 08/13/19 24 Suspended Additional Information Jantoven 3 mg tablet Please take as directed by your Anticoagulation Clinic. 15 tablet 08/27/19 24 024 Discontinued (Error) clobetasoL (Temovate) 0.05 % cream Apply 1 Application topically 2 (two) times a day as needed. Apply to dry feet Suspended glycerin suppository Insert 2 g into the rectum daily as needed for constipation. Suspended apixaban (Eliquis) 5 mg tablet Take 5 mg by mouth 2 (two) times a day. Suspended dilTIAZem CD (Cardizem CD) 120 mg 24 hr capsule Take 120 mg by mouth daily. 024 Discontinued (Stop Taking at Discharge) methocarbamoL (Robaxin) 500 mg tablet Take 500 mg by mouth 2 (two) times a day as needed for muscle spasms. Suspended metroNIDAZOLE (MetroCream) 0.75 % cream Apply 1 Application topically daily. Apply to face Suspended mupirocin (Bactroban) 2 % ointment Apply 1 Application topically daily as needed. 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 Leonel Soto M.B., Ch.B. Atrial Fibrillation Unspecified (HCC) (Primary Dx) 11/24/2023 2:52 PM CDT - 11/24/2023 11:30 PM CDT [facility] [address] [place] [address] Reuben Hodges DAriana. Atrial Fibrillation Permanent (HCC) (Primary Dx); Tachycardia; Patient's Noncompliance With Other Medical Treatment And Regimen For Other Reason Discharge Disposition: Acute Care Hospital 11/24/2023 Intake [facility] 11/12/2023 Refill Department of Family Medicine, [facility], in [address] [phone] Kinsey Villatoro M.D. Med Refill 11/10/2023 11:06 AM CDT - 11/10/2023 2:38 PM CDT [facility] [address] [place] [phone] Erlin Espinosa M.D. Shortness Of Breath (Primary Dx); Atrial Fibrillation Paroxysmal (HCC); Intussusception (HCC) Discharge Disposition: Home or Self Care 10/21/2023 Refill Department of [facility], [facility], in [address] [phone] Kinsey Villatoro M.D. Med Refill 09/28/2023 12:05 PM CDT - 09/28/2023 12:49 PM CDT [facility] [address] [place] [phone] Simba Patricio M.D. Medication Management Issue (Primary Dx); Pain Back Lumbar; Fracture Ankle Closed Subsequent Right Discharge Disposition: Home or Self Care from Last 3 Months Immunizations Name Administration [...] Recorded Dental: Regular Dentist Unknown 08/03/19 21 Housing Stability Answer Date Recorded What is your living situation today? I have a [facility] place to live 11/25/2023 Sex and Gender Information Value Date Recorded Sex Assigned at Not on file Gender Identity Female 08/13/2017 10:05 AM CDT Sexual Orientation Not on file Last Filed Vital Signs Vital Sign Reading Time Taken Comments Blood Pressure 135/97 11/30/2023 5:17 AM CDT Pulse 90 11/30/2023 2:47 AM CDT Temperature 36.3 ??C (97.3 ??F) 11/30/2023 5:17 AM CD T Respiratory Rate 15 11/30/2023 5:17 AM CDT Oxygen Saturation 98% 11/30/2023 5:17 AM CDT Inhaled Oxygen Concentration - - Weight 92.4 kg (203 lb 11.3 oz) 11/30/2023 5:22 AM CDT Height 157.5 cm (5' 2) 11/25/2023 2:08 AM CDT Body Mass Index 37.26 11/25/2023 2:08 AM CDT Plan of Treatment Health Maintenance Due Date Last Done Comments CT Colonography 1960 Cervical Cancer Screening 1960 Cologuard 1960 Diabetic Office Visit with F oot Exam 1960 FIT 1960 HIV Screening 1960 Hepatitis C Screening 1960 Urine Albumin 1960 Dilated Eye Exam 01/04/2014 01/04/2013 Hepatitis B Vaccines (1 of 3 - Risk 3-dose series) 2020 Zoster Vaccines (2 of 2) 03/05/2022 01/08/2022 COVID-19 Vaccine (4 - 2022-2 4 season) 2023 04/09/2022, 07/16/2020, 06/18/2020 Mammogram 07/14/2023 07/14/2022, 0212/2019, 07/29/2019 Office Visit for Blood Press ure Check / Re-check 11/13/2023 08/13/2023 Hemoglobin A1C 01/28/2024 07/30/2023, 06/30/2017 Influenza Vaccine (#1) 2024 , 04/23/2022, 03/18/2021, Additional history exists Lipid (Cholesterol) Screening 11/20/2024, 06/06/2019, 01/12/2018, Additional history exists Creatinine Level (Kidney Fun ction Test) 11/29/2024 11/30/2023, 11/29/2023, 11/28/2023, Additional history exists Potassium Level 11/29/2024 11/30/2023, 11/01, 11/28/2023, Additional history exists Sodium Level 11/29/2024 11/30/2023, 11/01, 11/28/2023, Additional history exists Colonoscopy 03/26/2025 03/26/2015 Colorectal Cancer Screening 03/26/2025 DTaP,Tdap,and Td Vaccines (4 - Td or Tdap) 06/24/2032 06/24/2022, 09/29/2011, 09/02/2011, Additional history exists Pneumococcal vaccine (0-64 years) Completed 05/12/2023, 01/08/2022, 07/08/2001 Depression Screening (Annual PHQ-2) Completed 07/30/2023 Medical Devices Implanted Type Area Mechanics Handyman Device Identifier Shelf Expiration Date Model / Serial / Lot Orthopedic Other Orthopedic Other Back Orthopedic Other Orthopedic Other Hip Orthopedic Other Orthopedic Other Shoulder Procedures The patient is currently admitted. The information in this section might not be complete until the patient is discharged. Procedure Name Priority Date/Time Associated Diagnosis Comments GLUCOSE POCT, B Routine 11/30/2023 7:09 AM CDT BASIC METABOLIC PANEL, S/P Routine 11/30/2023 5:45 AM CDT CBC WITH DIFFERENTIAL, B Routine 11/30/2023 5:45 AM CDT GLUCOSE POCT, B Routine 11/29/2023 7:59 PM CDT GLUCOSE POCT, B Routine 11/29/2023 4:38 PM CDT GLUCOSE POCT, B Routine 11/29/2023 12:47 PM CDT GLUCOSE POCT, B Routine 11/29/2023 9:35 AM CDT BASIC METABOLIC PANEL, S/P Routine 11/29/2023 8:21 AM CDT CBC WITH DIFFERENTIAL, B Routine 11/29/2023 8:21 AM CDT GLUCOSE POCT, B Routine 11/28/2023 8:58 PM CDT GLUCOSE POCT, B Routine 11/28/2023 4:41 PM CDT GLUCOSE POCT, B Routine 11/28/2023 11:35 AM CDT CBC WITH DIFFERENTIAL, B Routine 11/28/2023 7:30 AM CDT MAGNESIUM, S Routine 11/28/2023 7:29 AM CDT BASIC METABOLIC PANEL, S/P Routine 11/28/2023 7:29 AM CDT ECG Routine 11/27/2023 11:48 PM CDT MAGNESIUM, S Routine 11/27/2023 11:45 PM CDT BASIC METABOLIC PANEL, S/P Routine 11/27/2023 11:45 PM CDT GLUCOSE POCT, B Routine 11/27/2023 8:08 PM CDT GLUCOSE POCT, B Routine 11/27/2023 4:05 PM CDT GLUCOSE POCT, B Routine 11/27/2023 11:20 AM CDT BASIC METABOLIC PANEL, S/P Routine 11/27/2023 7:34 AM CDT CBC WITH DIFFERENTIAL, B Routine 11/27/2023 7:34 AM CDT GLUCOSE POCT, B Routine 11/26/2023 8:30 PM CDT GLUCOSE POCT, B Routine 11/26/2023 5:01 PM CDT GLUCOSE POCT, B Routine 11/26/2023 11:33 AM CDT BASIC METABOLIC PANEL, S/P Routine 11/26/2023 6:57 AM CDT CBC WITH DIFFERENTIAL, B Routine 11/26/2023 6:57 AM CDT GLUCOSE POCT, B Routine 11/26/2023 6:23 AM CDT GLUCOSE POCT, B Routine 11/25/2023 8:15 PM CDT GLUCOSE POCT, B Routine 11/25/2023 4:21 PM CDT (TTE) 2D ECHO DOPPLER COLOR AND CONTRAST Routine 11/25/2023 2:54 PM CDT GLUCOSE POCT, B Routine 11/25/2023 11:34 AM CDT PHOSPHORUS (INORGANIC), S Routine 11/25/2023 10:17 AM CDT MAGNESIUM, S Routine 11/25/2023 10:17 AM CDT COMPREHENSIVE METABOLIC PANEL, S/P Routine 11/25/2023 10:17 AM CDT CBC WITHOUT DIFFERENTIAL, B Routine 11/25/2023 10:17 AM CDT GLUCOSE POCT, B Routine 11/25/2023 8:15 AM CDT CRITICAL CARE Routine 11/24/2023 11:30 PM CDT TROPONIN T, 6H, 5TH GEN, P Timed 11/24/2023 8:54 PM CDT ECG Routine 11/24/2023 8:47 PM CDT DRUG SCREEN URINE STAT 11/24/2023 7:0 8 PM CDT TROPONIN T, BASELINE, 5TH GEN, P STAT 11/24/2023 3:00 PM CDT MORPHOLOGY EVALUATION STAT 11/24/2023 3:00 PM CDT ETHANOL, S STAT 11/24/2023 3:00 PM CDT BASIC METABOLIC PANEL, S/P STAT 11/24/2023 3:00 PM CDT CBC WITH DIFFERENTIAL, B STAT 11/24/2023 3:00 PM CDT TROPONIN T, 2H/6H REFLEX, 5TH GEN, P Timed 11/10/2023 1:34 PM CDT URINALYSIS WITH MICROSCOPIC IF INDICATED, U STAT 11/10/2023 1:[address] ABDOMEN PELVIS WITH IV CONTRAST RAD - Semiurgent (Fast; most ED patients; some inpatients) 11/10/2023 12:47 PM CDT DX CHEST AP OR PA AND LATERAL 2 VIEWS RAD - Semiurgent (Fast; most ED patients; some inpatients) 11/10/2023 12:04 PM CDT LACTATE, B/P STAT 11/10/2023 11:32 AM CDT MORPHOLOGY EVALUATION STAT 11/10/2023 11:31 AM CDT LIPASE, S/P STAT 11/10/2023 11:31 AM CDT COMPREHENSIVE METABOLIC PANEL, S/P STAT 11/10/2023 11:31 AM CDT PROTHROMBIN TIME (PT), P STAT 11/10/2023 11:31 AM CDT TROPONIN T, BASELINE, 5TH GEN, P STAT 11/10/2023 11:31 AM CDT NT-PRO B-TYPE NATRIURETIC PEPTIDE (BNP), S STAT 11/10/2023 11:31 AM CDT CBC WITH DIFFERENTIAL, B STAT 11/10/2023 11:31 AM CDT ECG STAT 11/10/2023 11:02 AM CDT HEMOGLOBIN A1C, B Routine 07/30/2023 4:4 8 PM HORSE BREAKER Diabetes Mellitus Type 2 Without Complication (HCC) OUTSIDE MG MAMMOGRAM Routine 07/14/2022 2:10 PM HORSE BREAKER EXTI LIPID PANEL W REFLEX MEASURED LDL Routine 11/21/2019 12:02 PM CDT from Last 3 Months or Most Recently Relevant to Health Maintenance Results * (ABNORMAL) Glucose, POCT (11/30/2023 7:09 AM CDT) Only the most recent of19 resultswithin the time period is included. Glucose, POCT, B 163(H) 70 - 140 mg/dL 11/30/2023 7:09 AM CDT MKTO Blood 11/30/2023 7:09 AM CDT 11/30/2023 7:16 AM CDT Generic [facility]als LAB POCT ORDERABLES- MANUAL [facility] [address] [place] [address], [facility] [place] [address] [place] [address] * (ABNORMAL) CBC with Differential, Blood (11/30/2023 5:45 AM CDT) Only the most recent of7 resultswithin the time period is included. Hemoglobin 10.0(L) 11.6 - 15.0 g/dL 11/30/2023 6:25 AM CDT MKTO Hematocrit 33.5(L) 35.5 - 44.9 % 11/30/2023 6:25 AM CDT [facility] Erythrocytes 4.15 3.92 - 5.13 x10(12)/L 11/30/2023 6:25 AM CDT [facility] MCV 80.7 78.2 - 97.9 fL 11/30/2023 6:25 AM CDT MKTO RBC Distrib Width 24.8(H) 12.2 - 16.1 % 11/30/2023 6:25 AM CDT [facility]TO Platelet Count 150(L) 157 - 371 x10(9)/L 11/30/2023 6:25 AM CDT MKTO Leukocytes 4.9 3.4 - 9.6 x10(9)/L 11/30/2023 6:25 AM CDT MKTO Neutrophils 3.15 1.56 - 6.45 x10(9)/L 11/30/2023 6:25 AM CDT MKTO Lymphocytes 0.92(L) 0.95 - 3.07 x10(9)/L 11/30/2023 6:25 AM CDT MKTO Monocytes 0.41 0.26 - 0.81 x10(9)/L 11/30/2023 6:25 AM CDT MKTO Eosinophils 0.38 0.03 - 0.48 x10(9)/L 11/30/2023 6:25 AM CDT MKTO Basophils 0.04 0.01 - 0.08 x10(9)/L 11/30/2023 6:25 AM CDT MKTO Blood (Blood, Venous) 11/30/2023 5:45 AM CDT 11/30/2023 5:59 AM CDT Leonel Roman Ch.B. LAB BLOOD ADD-ON [facility] [address] [place] [address], [place] MK[facility] [place] [address] [place] [address] * (ABNORMAL) Basic Metabolic Panel (11/30/2023 5:45 AM CDT) Only the most recent of7 resultswithin the time period is included. Potassium, P 4.1 3.6 - 5.2 mmol/L 11/30/2023 6:26 AM CDT MKTO Sodium, P 137 135 - 145 mmol/L 11/30/2023 6:26 AM CDT MKTO Chloride, P 100 98 - 107 mmol/L 11/30/2023 6:26 AM CDT MKTO Bicarbonate, P 25 22 - 29 mmol/L 11/30/2023 6:26 AM CDT MK[facility] Anion Gap, P 12 7 - 15 11/30/2023 6:26 AM CDT [facility]TO BUN (Blood Urea Nitrogen), P 21 6 - 21 mg/dL 11/30/2023 6:26 AM CDT MKTO Creatinine 0.61 0.59 - 1.04 mg/dL 11/30/2023 6:26 AM CDT MKTO Estimated GFR (eGFR) >90 >=60 mL/min/BSA 11/30/2023 6:26 AM CDT MKTO Comment: Estimated GFR calculated using the 2020 CKD_EPI creatinine equation. Calcium, Total, P 8.9 8.8 - 10.2 mg/dL 11/30/2023 6:26 AM CDT MKTO Glucose, P 153(H) 70 - 140 mg/dL 11/30/2023 6:26 AM CDT MKTO Blood (Blood, Venous) 11/30/2023 5:45 AM CDT 11/30/2023 6:00 AM CDT Leonel Roman Ch.B. LAB BLOOD ADD-ON Performing Organization Address City/[facility]/ZIP Co de Phone Number [facility] [address] [place] [address], [place] [address] * Magnesium (11/28/2023 7:29 AM CDT) Only the most recent of3 resultswithin the time period is included. Magnesium, P 2.3 1.7 - 2.3 mg/dL 11/28/2023 8:10 AM CDT TO Blood (Blood, Venous) 11/28/2023 7:29 AM CDT 11/28/2023 7:46 AM CDT Leonel Romna, Ch.B. LAB BLOOD ADD-ON Performing Organization Address [facility] Co de Phone Number [facility] [address] [place] [id number], [address] [address] * ECG 12 Lead (11/27/2023 11:48 PM CDT) Only the most recent of3 resultswithin the time period is included. Ventricular Rate ECG/Min 104 BPM MUSE QRSD Interval 96 ms MUSE QT Interval 386 ms MUSE QTC Interval 507 ms MUSE R [place] 7 degrees MUSE T Wave [place] 46 degrees MUSE 11/27/2023 11:4 8 PM CDT 11/28/2023 12:01 AM CDT Impressions MUSE - 11/28/2023 12:02 AM CDT Atrial fibrillation with rapid ventricular response Minimal voltage criteria for LVH, may be normal variant Nonspecific ST and T wave abnormality When compared with ECG of 24-Nov-2023 20:47, No significant change was found Reviewed by LORNA Dickerson Narrative Procedure Note Beto Sales M.D. - 11/28/2023 IMPRESSION: Atrial fibrillation with rapid ventricular response Minimal voltage criteria for LVH, may be normal variant Nonspecific ST and T wave abnormality When compared with ECG of 24-Nov-2023 20:47, No significant change was found Reviewed by LORNA Dickerson Maryse Barraza M.D. ECG ORDERABL ES MUSE NA * (TTE) 2D ECHO DOPPLER COLOR AND CONTRAST (11/25/2023 2:54 PM CDT) Ejection Fraction 56 MC CV EIMS Sinus of Valsalva 35 MC CV EIMS Mid-Ascending Aorta 43 MC CV EIMS LV Mass Index 110 MC CV EIMS LV End-Diastolic Diameter 49 MC CV EIMS LV End-Systolic Diameter 34 MC CV EIMS LV End-Diastolic Volume 98 MC CV EIMS LV End-Systolic Volume 44 MC CV EIMS MV E Velocity 0.9 MC CV EIMS MV e' Velocity Medial 0.11 MC CV EIMS MV e' Velocity Lateral 0.13 MC CV EIMS MV E/e' Medial 8.2 MC CV EIMS MV E/e' Lateral 6.9 MC CV EIMS Left ventricular stroke volume index 36 MC CV EIMS Cardiac Output 6.06 MC CV EIMS Cardiac Index 3.14 MC CV EIMS LV Interventricular Septal Wall Thickness 11 MC CV EIMS LV Posterior Wall Thickness 12 MC CV EIMS LV Relative Wall Thickness 49 MC CV EIMS RV 4-Chamber Basal Diameter 43 MC CV EIMS RV 4-Chamber Mid Diameter 33 MC CV EIMS RV 4-Chamber Length 71 MC CV EIMS TAPSE 15 MC CV EIMS Tricuspid Annular S? 0.09 MC CV EIMS RA Pressure 5 MC CV EIMS AV mean gradient 3 MC CV EIMS Aortic valve area 4 MC CV EIMS Aortic Valve Dimensionless Index 0.89 MC CV EIMS LA Volume Index 40 MC CV EIMS Aortic Valve Systolic Peak Velocity 1 MC CV EIMS Anatomical Region Laterality Modality Echocardiography 11/25/2023 1:30 PM CDT Impressions 11/25/2023 3:29 PM CDT Echo performed at the patient's bedside. LEFT VENTRICLE:Normal left ventricular chamber size. Normal left ventricular wall thickness. Calculated 2-D biplane volumetric left ventricular ejection fraction of 56%. No regional wall motion abnormalities. Normal left ventricular filling pressure. RIGHT VENTRICLE:Mildly enlarged right ventricular chamber size. Borderline reduced right ventricular systolic function. Unable to detect peak tricuspid regurgitation velocity for pulmonary artery systolic pressure calculation. ATRIA:Mildly enlarged left atrial size. Left atrial volume index 40 ml/m2. Moderately enlarged right atrial size. CARDIAC VALVES:Trileaflet aortic valve. Mildly thickened aortic valve. Trivial aortic valve regurgitation. Mildly calcified mitral annulus. Mildly thickened mitral valve. Trivial mitral valve regurgitation. Pulmonary valve not well visualized. Normal pulmonary valve systolic velocities. Trivial pulmonary valve regurgitation. Normal tricuspid valve. Trivial tricuspid valve regurgitation. OTHER ECHO FINDINGS:Normal inferior vena cava size with normal inspiratory collapse (>50%). Normal sinus of Valsalva diameter of 35 mm. Upper limit of normal of the sinus of Valsalva for age, sex and BSA is 39 mm. Mild-moderately enlarged mid ascending aorta diameter of 43 mm. Upper limit of normal of the mid ascending aorta, for age, sex and BSA is 38 mm. Abdominal aorta incompletely visualized. Normal abdominal aorta Doppler flow pattern. No atrial level shunt by color flow imaging. No intracardiac mass or thrombus, but the left atrial appendage cannot be visualized adequately with transthoracic echo to exclude thrombus in this location. No ??pericardial effusion. Attempts were made to optimize the echocardiographic images and two or more left ventricular segments were not visualized adequately to evaluate cardiac structure. The patient's current allergies and medications have been screened. Intravenous Definity ultrasound enhancement agent(s) administered to enhance endocardial border definition. Imaging enhancement agent administered per Echocardiography Contrast Administration Protocol Reference Document [id number] Rev 09/12/2021. Patient met an inclusion criterion and did not have contraindications in screening sections. For the complete report, see the Order-Level Documents. Narrative 11/25/2023 3:29 PM CDT For the complete report, see the Order-Level Documents. Hemodynamics Heart Rate: 93 BPM Blood Pressure: 128 / 106 mmHg ECG: Atrial fibrillation Final Impressions 1. Mildly enlarged right ventricular chamber size, borderline reduced systolic function ??(best seen on image 97). 2. Normal left ventricular chamber size, no regional wall motion abnormalities, calculated 2-D biplane volumetric ejection fraction of 56%. 3. Normal left ventricular filling pressure. 4. No ??significant valvular heart disease. 5. Mildly enlarged left atrial size. 6. Mild-moderately enlarged mid ascending aorta diameter of 43 mm, upper limit of normal for age, sex and BSA is 38 mm. 7. Normal inferior vena cava size with normal inspiratory collapse (>50%). 8. Compared to the report of 01/12/2018 the following changes have occurred: ??right ventricular filling pressure is now normal. ??Right ventricular size and function were better assessed on today's study with use of contrast. ??Side by side comparison of images performed. Procedure Note Alaina Su M.D. - 11/25/2023 For the complete report, see the Order-Level Documents. Hemodynamics Heart Rate: 93 BPM Blood Pressure: 128 / 106 mmHg ECG: Atrial fibrillation Final Impressions 1. Mildly enlarged right ventricular chamber size, borderline reducedsystolic function (best seen on image 97). 2. Normal left ventricular chamber size, no regional wall motionabnormalities, calculated 2-D biplane volumetric ejection fraction of56%. 3. Normal left ventricular filling pressure. 4. No significant valvular heart disease. 5. Mildly enlarged left atrial size. 6. Mild-moderately enlarged mid ascending aorta diameter of 43 mm, upperlimit of normal for age, sex and BSA is 38 mm. 7. Normal inferior vena cava size with normal inspiratory collapse(>50%). 8. Compared to the report of 01/12/2018 the following changes haveoccurred: right ventricular filling pressure is now normal. Rightventricular size and function were better assessed on today's study withuse of contrast. Side by side comparison of images performed. Findings Echo performed at the patient's bedside. LEFT VENTRICLE:Normal left ventricular chamber size. Normal leftventricular wall thickness. Calculated 2-D biplane volumetric leftventricular ejection fraction of 56%. No regional wall motionabnormalities. Normal left ventricular filling pressure. RIGHT VENTRICLE:Mildly enlarged right ventricular chamber size. Borderlinereduced right ventricular systolic function. Unable to detect peaktricuspid regurgitation velocity for pulmonary artery systolic pressurecalculation. ATRIA:Mildly enlarged left atrial size. Left atrial volume index 40 ml/m2.Moderately enlarged right atrial size. CARDIAC VALVES:Trileaflet aortic valve. Mildly thickened aortic valve.Trivial aortic valve regurgitation. Mildly calcified mitral annulus.Mildly thickened mitral valve. Trivial mitral valve regurgitation.Pulmonary valve not well visualized. Normal pulmonary valve systolicvelocities. Trivial pulmonary valve regurgitation. Normal tricuspid valve.Trivial tricuspid valve regurgitation. OTHER ECHO FINDINGS:Normal inferior vena cava size with normal inspiratorycollapse (>50%). Normal sinus of Valsalva diameter of 35 mm. Upper limitof normal of the sinus of Valsalva for age, sex and BSA is 39 mm.Mild-moderately enlarged mid ascending aorta diameter of 43 mm. Upperlimit of normal of the mid ascending aorta, for age, sex and BSA is 38 mm.Abdominal aorta incompletely visualized. Normal abdominal aorta Dopplerflow pattern. No atrial level shunt by color flow imaging. No intracardiacmass or thrombus, but the left atrial appendage cannot be visualizedadequately with transthoracic echo to exclude thrombus in this location.No pericardial effusion. Attempts were made to optimize theechocardiographic images and two or more left ventricular segments werenot visualized adequately to evaluate cardiac structure. The patient'scurrent allergies and medications have been screened. Intravenous Definityultrasound enhancement agent(s) administered to enhance endocardial borderdefinition. Imaging enhancement agent administered per EchocardiographyContrast Administration Protocol Reference Document [id number] Rev09/12/2021. Patient met an inclusion criterion and did not havecontraindications in screening sections. For the complete report, see the Order-Level Documents. Etelvina Beard APRN, C.N.P., D.N.P. CV ECHO PROCEDURES * (ABNORMAL) CBC without Differential (11/25/2023 10:17 AM CDT) Hemoglobin 10.1(L) 11.6 - 15.0 g/dL 11/25/2023 10:38 AM CDT MKTO Hematocrit 34.4(L) 35.5 - 44.9 % 11/25/2023 10:38 AM CDT [facility] Erythrocytes 4.32 3.92 - 5.13 x10(12)/L 11/25/2023 10:38 AM CDT MK[facility] MCV 79.6 78.2 - 97.9 fL 11/25/2023 10:38 AM CDT MKTO RBC Distrib Width 23.7(H) 12.2 - 16.1 % 11/25/2023 10:38 AM CDT MK[facility] Platelet Count 170 157 - 371 x10(9)/L 11/25/2023 10:38 AM CDT MKTO Leukocytes 5.1 3.4 - 9.6 x10(9)/L 11/25/2023 10:38 AM CDT MK[facility] Blood (Blood, Venous) 11/25/2023 10:17 AM CDT 11/25/2023 10:22 AM CDT Mil Wiggins M.D. LAB BLOOD ADD-ON Performing Organization Address City/[facility]/ZIP Co de Phone Number [facility] [address] [place] [address] * (ABNORMAL) Phosphorus Inorganic (11/25/2023 10:17 AM CDT) Phosphorus (Inorganic), P 5.0(H) 2.5 - 4.5 mg/dL 11/25/2023 10:42 AM CDT MKTO Blood (Blood, Venous) 11/25/2023 10:17 AM CDT 11/25/2023 10:22 AM CDT Mil Wiggins M.D. LAB BLOOD ADD-ON Performing Organization Address City/[facility] Co de Phone Number [facility] [address] [place] [address] * (ABNORMAL) Comprehensive Metabolic Panel (11/25/2023 10:17 AM CDT) Only the most recent of2 resultswithin the time period is included. Potassium, P 3.9 3.6 - 5.2 mmol/L 11/25/2023 10:42 AM CDT MKTO Sodium, P 138 135 - 145 mmol/L 11/25/2023 10:42 AM CDT MKTO Chloride, P 101 98 - 107 mmol/L 11/25/2023 10:42 AM CDT [facility] Bicarbonate, P 24 22 - 29 mmol/L 11/25/2023 10:42 AM CDT [facility] Anion Gap, P 13 7 - 15 11/25/2023 10:42 AM CDT [facility] BUN (Blood Urea Nitrogen), P 18 6 - 21 mg/dL 11/25/2023 10:42 AM CDT MK[facility] Creatinine 0.58(L) 0.59 - 1.04 mg/dL 11/25/2023 10:42 AM CDT MK[facility] Estimated GFR (eGFR) >90 >=60 mL/min/BS A 11/25/2023 10:42 AM CDT MKTO Comment: Estimated GFR calculated using the 2020 CKD_EPI creatinine equation. Calcium, Total, P 8.7(L) 8.8 - 10.2 mg/dL 11/25/2023 10:42 AM CDT MKTO Glucose, P 180(H) 70 - 140 mg/dL 11/25/2023 10:42 AM CDT MKTO Protein, Total, P 6.4 6.3 - 7.9 g/dL 11/25/2023 10:42 AM CDT MKTO Albumin, P 3.8 3.5 - 5.0 g/dL 11/25/2023 10:42 AM CDT MKTO Aspartate Aminotransferase (AST), P 39 8 - 43 U/L 11/25/2023 10:42 AM CDT MKTO Alkaline Phosphatase, P 103 35 - 104 U/L 11/25/2023 10:42 AM CDT MKTO Alanine Aminotransferase (ALT), P 46(H) 7 - 45 U/L 11/25/2023 10:42 AM CDT MKTO Bilirubin, Total, P 0.2 0.0 - 1.2 mg/dL 11/25/2023 10:42 AM CDT MK[facility] Blood (Blood, Venous) 11/25/2023 10:17 AM CDT 11/25/2023 10:22 AM CDT Mil Wiggins M.D. LAB BLOOD ADD-ON [facility] [address] [place] [address], [facility] MKTO [facility] [address] [place] [address] * Critical Care (11/24/2023 11:30 PM CDT) Narrative Reuben Hodges D.O. - 11/24/2023 11:30 PM CDT Reuben Hodges D.O. ? 11/25/2023 ??9:17 AM Critical Care Performed by: Reuben Hodges D.O. Authorized by: Reuben Hodges D.O. ?? Critical care provider statement: Critical care total time (minutes): 50 Critical care time was exclusive of: separately billable procedures and treating other patients Critical care was necessary to treat or prevent imminent or life-threatening deterioration of the following conditions: cardiac arrhythmia Critical care was time spent personally by me on the following activities: development of treatment plan with patient or surrogate, discussing treatment issues with family or surrogate, documenting in the patient chart, evaluation of patient's response to treatment, examination of patient, interpretation of cardiac output measurements, review of old charts, re-evaluation of patient's condition, pulse oximetry, ordering and review of laboratory studies, ordering and performing treatments and interventions and obtaining history from patient or surrogate Reuben Hodges D.O. PROCEDURE/MINOR MEGHAN GICAL ORDERABLES * (ABNORMAL) Troponin T, 6h, 5th Gen (11/24/2023 8:54 PM CDT) Pathologist [facility] [place] Troponin T, 6 hr, 5th gen 13(H) <=10 ng/L 11/24/2023 9:14 PM CDT NPRG 6H Delta 2 ng/L 11/24/2023 9:16 PM CDT NPRG 6H Delta Interp Not Changing 11/24/2023 9:16 PM CDT NPRG Blood 11/24/2023 8:54 PM CDT 11/24/2023 8:56 PM CDT Soft Results Interface LAB BLOOD TROPONI N [facility] [address] [place] [address], [facility] NPRG [facility] [address] [place] [address] * (ABNORMAL) Drug Screen Urine (11/24/2023 7:08 PM CDT) Pathologist [facility] [place] Amphetamines, U Unconfirmed Positive(A) Negative 11/24/2023 7:29 PM CDT NPRG Comment: ----ADDITIONAL INFORMATION---- Mechanics Handyman's Cutoff: 500 ng/mL Barbiturates, U Negative Negative 11/24/2023 7:29 PM CDT NPRG Comment: ----ADDITIONAL INFORMATION---- Mechanics Handyman's Cutoff: 200 ng/mL Benzodiazepin es, U Negative Negative 11/24/2023 7:29 PM CDT NPRG Comment: ----ADDITIONAL INFORMATION---- Mechanics Handyman's Cutoff: 150 ng/mL Buprenorphine , U Negative Negative 11/24/2023 7:29 PM CDT NPRG Comment: ----ADDITIONAL INFORMATION---- Mechanics Handyman's Cutoff: 10 ng/mL Cocaine, U Negative Negative 11/24/2023 7:29 PM CDT NPRG Comment: ----ADDITIONAL INFORMATION---- Mechanics Handyman's Cutoff: 150 ng/mL Methadone, U Negative Negative 11/24/2023 7:29 PM CDT NPRG Comment: ----ADDITIONAL INFORMATION---- Mechanics Handyman's Cutoff: 200 ng/mL Methamphetami vincent, U Negative Negative 11/24/2023 7:29 PM CDT NPRG Comment: ----ADDITIONAL INFORMATION---- Mechanics Handyman's Cutoff: 500 ng/mL Opiates, U Negative Negative 11/24/2023 7:29 PM CDT NPRG Comment: ----ADDITIONAL INFORMATION---- Mechanics Handyman's Cutoff: 100 ng/mL Oxycodone, U Negative Negative 11/24/2023 7:29 PM CDT NPRG Comment: ----ADDITIONAL INFORMATION---- Mechanics Handyman's Cutoff: 100 ng/mL Phencyclidine , U Negative Negative 11/24/2023 7:29 PM CDT NPRG Comment: ----ADDITIONAL INFORMATION---- Mechanics Handyman's Cutoff: 25 ng/mL Tetrahydrocan nabinol, U Unconfirmed Positive(A) Negative 11/24/2023 7:29 PM CDT NPRG Comment: ----ADDITIONAL INFORMATION---- Mechanics Handyman's Cutoff: 50 ng/mL Tricyclic Antidepressan ts, U Negative Negative 11/24/2023 7:29 PM CDT NPRG Comment: ----ADDITIONAL INFORMATION---- Mechanics Handyman's Cutoff: 300 ng/mL THE ABOVE DRUG SCREEN PANEL IS FOR MEDICAL PURPOSES ONLY Urine (Urine, Midstream) 11/24/2023 7:08 PM CDT 11/24/2023 7:17 PM CDT Reuben Hodges D.O. LAB URINE ORDERABLE S Performing Organization Address City/[facility]/ZIP Co de Phone Number [facility] [address] [place] [address], [facility] NPRG [address] [place] [address] [address] [place] [address] * (ABNORMAL) Morphology Evaluation (11/24/2023 3:00 PM CDT) Only the most recent of2 resultswithin the time period is included. RBC Morphology See Specific Findings 11/24/2023 4:19 PM CDT NPRG PLT Morphology See Specific Findings 11/24/2023 4:19 PM CDT NPRG PLT Estimate Adequate Adequate 11/24/2023 4:19 PM CDT NPRG Anisocytosis Marked(A) 11/24/2023 4:19 PM CDT NPRG Hypochromia Slight(A) Not Seen 11/24/2023 4:19 PM CDT NPRG Large PLT Present(A) Not Seen 11/24/2023 4:19 PM CDT NPRG Microcytosis Slight(A) Not Seen 11/24/2023 4:19 PM CDT NPRG Blood 11/24/2023 3:00 PM CDT 11/24/2023 3:48 PM CDT Reuben Hodges D.O. LAB BLOOD ADD-ON Performing Organization Address City/[facility]/ZIP Co de Phone Number [facility] [address] [place] [address], [facility] NPRG [address] [address] [place] [address] * (ABNORMAL) Troponin T, Baseline with 2 Hour/6 Hour Reflex Biomarker Panel (11/24/2023 3:00 PM CDT) Only the most recent of2 resultswithin the time period is included. Troponin T, Baseline, 5th gen 11(H) <=10 ng/L 11/24/2023 9:04 PM CDT NPRG Blood (Blood, Venous) 11/24/2023 3:00 PM CDT 11/24/2023 3:48 PM CDT Jason Mcleod M.D. LAB BLOOD TROPONIN Performing Organization Address City/[facility]/ZIP Co de Phone Number [facility] [address] [place] [address], [facility] [address] [address] * Ethanol Level, Serum (11/24/2023 3:00 PM CDT) Ethanol, P <10 <10 mg/dL 11/24/2023 4:1 1 PM CDT NPRG Blood (Blood, Venous) 11/24/2023 3:00 PM CDT 11/24/2023 3:51 PM CDT Reuben Hodges D.O. LAB BLOOD NON ADD-O N Performing Organization Address City/[facility] Co de Phone Number [facility] [address] [place] [address], [facility] NPRG [address] [address] * (ABNORMAL) Troponin T, 2 Hour with 6 Hour Reflex, 5th Gen (11/10/2023 1:34 PM CDT) Troponin T, 2 hr, 5th gen 13(H) <=10 ng/L 11/10/2023 1:56 PM CDT NPRG 2H Delta 2 ng/L 11/10/2023 1:56 PM CDT NPRG Comment:6 hour collection no t indicated. 2H Delta Interp Not Changing 11/10/2023 1:56 PM CDT NPRG Blood 11/10/2023 1:34 PM CDT 11/10/2023 1:38 PM CDT Erlin Espinosa M.D. LAB BLOOD TROPON IN [facility] [address] [place] [address], [facility] NPRG [facility] [address] [place] [address] * Urinalysis with Microscopic if Indicated (11/10/2023 1:20 PM CDT) Source Urine, Urine, Midstream 11/10/2023 1:31 PM CDT NPRG Clarity Clear Clear 11/10/2023 1:34 PM CDT NPRG Color Yellow 11/10/2023 1:34 PM CDT NPRG Comment: ----REFERENCE VALUE---- Colorless Yellow Sandra Blood Negative Negative 11/10/2023 1:34 PM CDT NPRG Nitrite Negative Negative 11/10/2023 1:34 PM CDT NPRG Leukocyte Esterase Negative Negative 11/10/2023 1:34 PM CDT NPRG Protein Negative mg/dL 11/10/2023 1:34 PM CDT NPRG Comment: ----REFERENCE VALUE---- Negative Trace Glucose Negative Negative mg/dL 11/10/2023 1:34 PM CDT NPRG Ketones, QI(U) Negative Negative mg/dL 11/10/2023 1:34 PM CDT NPRG Bilirubin Negative Negative 11/10/2023 1:34 PM CDT NPRG pH 6.5 5.0 - 8.0 11/10/2023 1:34 PM CDT NPRG Specific [place] 1.010 1.001 - 1.035 11/10/2023 1:34 PM CDT NPRG Urobilinogen 0.2 0.2 - 1.0 mg/dL 11/10/2023 1:34 PM CDT NPRG Urine (Urine, Midstream) 11/10/2023 1:20 PM CDT 11/10/2023 1:30 PM CDT Erlin Espinosa M.D. LAB URINE ORDERA BLES [facility] [address] [place] [address], [facility] NPRG [facility] [address] [place] [address] * CT Abdomen Pelvis with IV Contrast (11/10/2023 12:47 PM CDT) Anatomical Region Laterality Modality Abdomen, Pelvis, Abdominal R ST LOS, Abdominal ARZ LOS, Abdominal FLA LOS N/A Computed Tomography 11/10/2023 12:4 4 PM CDT Impressions 11/10/2023 12:55 PM CDT Small intussusception noted in the left lower quadrant at site of bowel anastomoses. This is slightly more prominent than on previous study. No evidence for obstruction. Narrative 11/10/2023 12:55 PM CDT EXAM: CT ABDOMEN PELVIS WITH IV CONTRAST COMPARISON: 02/06/2023 and prior FINDINGS: There is mild cardiomegaly. The lung bases are clear. There is a nonobstructing inferior pole left renal stone. There are bilateral renal cysts. The upper abdominal organs are otherwise within normal limits. The upper abdominal vasculature is patent. There is no free fluid in the pelvis. There is no adenopathy within the abdomen or pelvis. The colon and small bowel are of normal caliber. There is a small area of intussusception in the left lower quadrant at site of patient's previous bowel anastomoses. There are moderate arthritic changes of the visualized skeleton. There is a spinal nerve stimulator in place. Procedure Note Basilio Terrazas M.D. - 11/10/2023 EXAM: CT ABDOMEN PELVIS WITH IV CONTRAST COMPARISON: 02/06/2023 and prior FINDINGS: There is mild cardiomegaly. The lung bases are clear. There is anonobstructing inferior pole left renal stone. There are bilateral renalcysts. The upper abdominal organs are otherwise within normal limits. Theupper abdominal vasculature is patent. There is no free fluid in the pelvis. There is no adenopathywithin the abdomen or pelvis. The colon and small bowel are of normalcaliber. There is a small area of intussusception in the left lowerquadrant at site of patient's previous bowel anastomoses. There are moderate arthritic changes of the visualizedskeleton. There is a spinal nerve stimulator in place. IMPRESSION: Small intussusception noted in the left lower quadrant at site of bowelanastomoses. This is slightly more prominent than on previous study. Noevidence for obstruction. Erlin Espinosa M.D. IMG CT PROCEDURE S * DX Chest AP or PA and Lateral 2 Views (11/10/2023 12:04 PM CDT) Anatomical Region Laterality Modality Chest, Thoracic RST LOS, Tho racic ARZ LOS, Thoracic FLA LOS N/A Digital Radiography Impressions 11/10/2023 12:08 PM CDT Possible subluxation or dislocation of the left shoulder. No other radiographic abnormality is demonstrated. Narrative 11/10/2023 12:08 PM CDT EXAM: DX CHEST AP OR PA AND LATERAL 2 VIEWS COMPARISON: 01/08/2023 and earlier FINDINGS: The heart remains upper limits normal in size. Mediastinum is unremarkable. No infiltrate nor effusion can be seen. Left shoulder joint arthroplasty is seen. There appears to be inferior subluxation of the prosthetic humeral head from the glenoid. Note is made of stimulator device in the spine with tip at the level of T8. Procedure Note Rodrick Rainey M.D. - 11/10/2023 EXAM: DX CHEST AP OR PA AND LATERAL 2 VIEWS COMPARISON: 01/08/2023 and earlier FINDINGS: The heart remains upper limits normal in size. Mediastinum isunremarkable. No infiltrate nor effusion can be seen. Left shoulder joint arthroplasty is seen. There appears to be inferiorsubluxation of the prosthetic humeral head from the glenoid. Note is madeof stimulator device in the spine with tip at the level of T8. IMPRESSION: Possible subluxation or dislocation of the left shoulder. No otherradiographic abnormality is demonstrated. Erlin Espinosa M.D. IMG DIAGNOSTIC I MAGING PROCEDURES * (ABNORMAL) Lactate (11/10/2023 11:32 AM CDT) Lactate, P 2.5(H) 0.5 - 2.2 mmol/L 11/10/2023 11:56 AM CDT NPRG Blood (Blood, Venous) 11/10/2023 11:32 AM CDT 11/10/2023 11:34 AM CDT Erlin Espinosa M.D. LAB BLOOD NON AD D-ON Performing Organization Address City/[facility]/ZIP Co de Phone Number [facility] [address] [place] [address], [facility] NPRG [address] [address] [address] [place] [address] * (ABNORMAL) NT-Pro B-Type Natriuretic Peptide (BNP) (11/10/2023 11:31 AM CDT) NT-Pro BNP 1258(H) <=226 pg/mL 11/10/2023 12:03 PM CDT NPRG Comment: NT-proBNP values less than 300 pg/mL have a 99% negative predictive value for excluding acute congestive heart failure. A cutoff of 1200 pg/mL for patients with an eGFR<60 yields a diagnostic sensitivity and specificity of 89% and 72% for acute congestive heart failure. A diagnostic NT-proBNP cutoff of 900 pg/mL has been suggested in adults 50-75 years of age in the absence of renal failure. Blood (Blood, Venous) 11/10/2023 11:31 AM CDT 11/10/2023 11:34 AM CDT Erlin Espinosa M.D. LAB BLOOD ADD-ON Performing Organization Address City/[facility]/ZIP Co de Phone Number [facility] [address] [place] [address], [facility] NPRG [address] [address] [place] [address] * (ABNORMAL) Prothrombin Time (PT) (11/10/2023 11:31 AM CDT) Prothrombin Time, P 23.5(H) 9.4 - 12.5 sec 11/10/2023 11:41 AM CDT NPRG INR 2.1 0.9 - 1.1 11/10/2023 11:41 AM CDT NPRG Comment: ----ADDITIONAL INFORMATION---- Standard intensity warfarin therapeutic range: 2.0 to 3.0 ?? High intensity warfarin therapeutic range: 2.5 to 3.5 Blood (Blood, Venous) 11/10/2023 11:31 AM CDT 11/10/2023 11:34 AM CDT Erlin Espinosa M.D. LAB BLOOD ADD-ON Performing Organization Address [facility]/ZIP Co de Phone Number [facility] [address] [place] [address], [facility] [address] [address] * Lipase (11/10/2023 11:31 AM CDT) Lipase, P 46 13 - 60 U/L 11/10/2023 11:58 AM CDT NPR Blood (Blood, Venous) 11/10/2023 11:31 AM CDT 11/10/2023 11:34 AM CDT Erlin Espinosa M.D. LAB BLOOD ADD-ON Performing Organization Address [facility] Co de Phone Number [facility] [address] [place] [address], [address] [address] * (ABNORMAL) Hemoglobin A1c (07/30/2023 4:48 PM HORSE BREAKER) Hemoglobin A1c, B 6.9(H) 4.2 - 5.6 % 07/30/2023 5:10 PM HORSE BREAKER CNFL Comment: Hemoglobin A1c values greater than or equal to 6.5 percent are diagnostic for diabetes mellitus. ??Diagnosis should be confirmed by repeat testing. ??In diabetic patients, HbA1c goals should be discussed with healthcare provider. Blood (Blood, Venous) 07/30/2023 4:48 PM HORSE BREAKER 07/30/2023 4:49 PM HORSE BREAKER Kinsey Villatoro M.D. LAB BLOOD ADD-ON [facility] [address] [place] [address], [facility] CNFL [facility] [address] [place] [address] * MM screening mammo BI-Outside Mammogram (07/14/2022 2:10 PM HORSE BREAKER) Narrative [facility] - 08/05/2023 1:25 PM HORSE BREAKER This order has been created and auto-finalized [...] Advance Directives For more information, please contact: [phone] * Full Code (Latest Code Status on File) Date Activated Date Inactivated Comments 11/25/2023 2:01 AM Question Answer Comments Full Code: Discussed * Full Code Date Activated Date Inactivated Comments 01/11/2018 4:46 PM 01/13/2018 6:25 PM Question Answer Comments Full Code: Discussed * Full Code Date Activated Date Inactivated Comments 05/29/2017 12:36 AM 05/29/2017 6:55 PM Question Answer Comments Full Code: Discussed 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
--- OUTSIDE RECORDS SUMMARY | 2023-11-30 08:35 | XMS_ITS | Referral Summary ---
Author Organization [facility] Address [address] [place] [address] Care Team Providers Care Dinkey Operator Name Role Phone Elsewhere, Pcp Primary Care Provider Unavailabl e Source Comments Patient records contain information from all sites at [facility]. For routine questions regarding patient records, call [phone] during business hours, M-F 8:00 AM - 5:00 PM Central Time. Record requests for emergency care only can be directed to [phone] at any time.[facility] Encounters Date Type Department Care Team Description 11/25/2023 12:44 AM CDT - Present Hospital Encounter [facility], Third Floor [address] [place] [phone] Mil Wiggins M.D. Leonel Soto M.B., Ch.B. Atrial Fibrillation Unspecified (HCC) (Primary Dx) 11/24/2023 Intake [facility] 11/24/2023 2:52 PM CDT - 11/24/2023 11:30 PM CDT Emergency [facility] [address] [place] [phone] Reuben Hodges D.O. Atrial Fibrillation Permanent (HCC) (Primary Dx); Tachycardia; Patient's Noncompliance With Other Medical Treatment And Regimen For Other Reason Discharge Disposition: Acute Care Hospital 11/12/2023 Refill Department of Family Medicine, [facility], in [address] [phone] Kinsey Villatoro M.D. Med Refill 11/10/2023 11:06 AM CDT - 11/10/2023 2:38 PM CDT Emergency [facility] [address] [place] [address] Erlin Espinosa M.D. Shortness Of Breath (Primary Dx); Atrial Fibrillation Paroxysmal (HCC); Intussusception (HCC) Discharge Disposition: Home or Self Care 10/21/2023 Refill Department of Family Medicine, [facility], in [address] [phone] Kinsey Villatoro M.D. Med Refill 09/28/2023 12:05 PM CDT - 09/28/2023 12:49 PM CDT Emergency [facility] [address] [place] [address], [place] [phone] Simba Patricio M.D. Medication Management Issue (Primary [...] 4 (four) hours as needed for itching. 06/26/2 024 Discontinued (Therapy completed) aluminum-magnesium hydroxide 200-200 [...] by mouth 2 (two) times a day. Discontinued (Therapy completed) [id number] ase 300 unit capsule Take 300 Units [...] 2 (two) times a day. 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 [facility] 11/25/2023 Sex and Gender [...] 11/25/2023 2:08 AM CDT Plan of Treatment Not on file Medical Devices Implanted Type Area Still Photographer Device Identifier Shelf Expiration Date Model / [...] A1C, B Routine 07/30/2023 4:4 8 PM LAMPS TESTER AND INSPECTOR Diabetes Mellitus Type 2 Without Complication (HCC) OUTSIDE MG MAMMOGRAM Routine 07/14/2022 2:10 PM LAMPS TESTER AND INSPECTOR EXTI LIPID PANEL W REFLEX MEASURED LDL Routine 11/21/2019 12:02 PM CDT from Last 3 Months or Most Recently Relevant to Health Maintenance Results * (ABNORMAL) Glucose, POCT (11/30/2023 7:09 AM CDT) Only the most recent of19 resultswithin the time period is included. Glucose, POCT, B 163(H) 70 - 140 mg/dL 11/30/2023 7:09 AM CDT [facility] Blood 11/30/2023 7:09 AM CDT 11/30/2023 7:16 AM CDT Generic Rals LAB POCT ORDERABLES- MANUAL [facility] [address] [place] [address], [facility] MKTO [facility] [place] [address] [place] [address] * (ABNORMAL) CBC with Differential, Blood (11/30/2023 [...] AM CDT 11/30/2023 5:59 AM CDT Leonel Roman, Ch.B. LAB BLOOD ADD-ON Performing Organization Address City/[facility]/ZIP Co de Phone Number [facility] [address] [place] [address], [facility] [address] [place] [address] * (ABNORMAL) Basic Metabolic Panel (11/30/2023 5:45 [...] AM CDT 11/30/2023 6:00 AM CDT Leonel Roman, Ch.B. LAB BLOOD ADD-ON [facility] [address] [place] [address], [facility] [address] [place] [address] * Magnesium (11/28/2023 7:29 AM CDT) Only the most recent of3 resultswithin the time period is included. Magnesium, P 2.3 1.7 - 2.3 mg/dL 11/28/2023 8:10 AM CDT [facility] Blood (Blood, Venous) 11/28/2023 7:29 AM CDT 11/28/2023 7:46 AM CDT Leonel Roman, ChStephanyB. LAB BLOOD ADD-ON [facility] [address] [place] [address], [place] [address] * ECG 12 Lead (11/27/2023 11:48 PM CDT) Only the most recent of3 resultswithin the time period is included. Ventricular Rate ECG/Min 104 BPM MUSE QRSD Interval 96 ms MUSE QT Interval 386 ms MUSE QTC Interval 507 ms MUSE R [place] 7 degrees MUSE T Wave [place] 46 degrees MUSE 11/27/2023 11:4 8 PM [...] significant change was found Reviewed by LORNA Dicekrson Maryse Barraza M.D. ECG ORDERABL ES MUSE NA * (TTE) 2D ECHO DOPPLER COLOR AND CONTRAST (11/25/2023 2:54 PM CDT) Pathologist [facility] Ejection Fraction 56 MC CV EIMS Sinus [...] per Echocardiography Contrast Administration Protocol Reference Document [id number] Rev 09/12/2021. Patient met an inclusion criterion [...] administered per EchocardiographyContrast Administration Protocol Reference Document [id number] Rev09/12/2021. Patient met an inclusion criterion and [...] 10:17 AM CDT 11/25/2023 10:22 AM CDT Narrative Authorizing Provider Result Willard Wiggins M.D. LAB BLOOD ADD-ON Performing Organization Address City/[facility]/ZIP Co de Phone Number [facility] [address] [place] [address], [address] [address] * (ABNORMAL) Phosphorus Inorganic (11/25/2023 10:17 AM CDT) Phosphorus (Inorganic), P 5.0(H) 2.5 - 4.5 mg/dL 11/25/2023 10:42 AM CDT [facility] Blood (Blood, Venous) 11/25/2023 10:17 AM CDT 11/25/2023 10:22 AM CDT Narrative Authorizing Provider Result Willard Wiggins M.D. LAB BLOOD ADD-ON Performing Organization Address City/[facility]/ZIP Co de Phone Number [facility] [address] [place] [address], [address] [address] * (ABNORMAL) Comprehensive Metabolic Panel (11/25/2023 10:17 [...] CDT Mil Wiggins M.D. LAB BLOOD ADD-ON [facility] [place] [address], [facility] [place] [address] * Critical Care (11/24/2023 11:30 PM CDT) [...] 5th Gen (11/24/2023 8:54 PM CDT) Pathologist [facility] Troponin T, 6 hr, 5th gen 13(H) <=10 ng/L 11/24/2023 9:14 PM CDT [facility] 6H Delta 2 ng/L 11/24/2023 9:16 PM CDT [facility] 6H Delta Interp Not Changing 11/24/2023 9:16 PM CDT [facility] Blood 11/24/2023 8:54 PM CDT 11/24/2023 8:56 PM CDT Soft Results Interface LAB BLOOD TROPONI N [facility] [address] [place] [address], [place] NPR[facility] [address] [place] [address] * (ABNORMAL) Drug Screen Urine (11/24/2023 7:08 PM CDT) Amphetamines, U Unconfirmed Positive(A) Negative 11/24/2023 7:29 PM CDT [facility] Comment: ----ADDITIONAL INFORMATION---- Still Photographer's Cutoff: 500 ng/mL Barbiturates, U Negative Negative 11/24/2023 7:29 PM CDT [facility] Comment: ----ADDITIONAL INFORMATION---- Still Photographer's Cutoff: 200 ng/mL Benzodiazepin es, U Negative Negative 11/24/2023 7:29 PM CDT [facility] Comment: ----ADDITIONAL INFORMATION---- Still Photographer's Cutoff: 150 ng/mL Buprenorphine , U Negative Negative 11/24/2023 7:29 PM CDT [facility] Comment: ----ADDITIONAL INFORMATION---- Still Photographer's Cutoff: 10 ng/mL Cocaine, U Negative Negative 11/24/2023 7:29 PM CDT [facility] Comment: ----ADDITIONAL INFORMATION---- Still Photographer's Cutoff: 150 ng/mL Methadone, U Negative Negative 11/24/2023 7:29 PM CDT [facility] Comment: ----ADDITIONAL INFORMATION---- Still Photographer's Cutoff: 200 ng/mL Methamphetami vincent, U Negative Negative 11/24/2023 7:29 PM CDT [facility] Comment: ----ADDITIONAL INFORMATION---- Still Photographer's Cutoff: 500 ng/mL Opiates, U Negative Negative 11/24/2023 7:29 PM CDT [facility] Comment: ----ADDITIONAL INFORMATION---- Still Photographer's Cutoff: 100 ng/mL Oxycodone, U Negative Negative 11/24/2023 7:29 PM CDT [facility] Comment: ----ADDITIONAL INFORMATION---- Still Photographer's Cutoff: 100 ng/mL Phencyclidine , U Negative Negative 11/24/2023 7:29 PM CDT [facility] Comment: ----ADDITIONAL INFORMATION---- Still Photographer's Cutoff: 25 ng/mL Tetrahydrocan nabinol, U Unconfirmed Positive(A) Negative 11/24/2023 7:29 PM CDT [facility] Comment: ----ADDITIONAL INFORMATION---- Still Photographer's Cutoff: 50 ng/mL Tricyclic Antidepressan ts, U Negative Negative 11/24/2023 7:29 PM CDT [facility] Comment: ----ADDITIONAL INFORMATION---- Still Photographer's Cutoff: 300 ng/mL THE ABOVE DRUG SCREEN PANEL IS FOR MEDICAL PURPOSES ONLY Urine (Urine, Midstream) 11/24/2023 7:08 PM CDT 11/24/2023 7:17 PM CDT Reuben Hodges D.O. LAB URINE ORDERABLE S Performing Organization Address [facility] Co de Phone Number [facility] [address] [place] [address], [facility] NPRG [facility] [address] [place] [address] * (ABNORMAL) Morphology Evaluation (11/24/2023 3:00 PM [...] CDT Reuben Hodges D.O. LAB BLOOD ADD-ON [facility] [address] [place] [address], [facility] NPRG [place] [address] [place] [address] * (ABNORMAL) Troponin T, Baseline with 2 Hour/6 Hour Reflex Biomarker Panel (11/24/2023 3:00 PM CDT) Only the most recent of2 resultswithin the time period is included. Troponin T, Baseline, 5th gen 11(H) <=10 ng/L 11/24/2023 9:04 PM CDT [facility] Blood (Blood, Venous) 11/24/2023 3:00 PM CDT 11/24/2023 3:48 PM CDT Jason Mcleod M.D. LAB BLOOD TROPONIN Performing Organization Address City/[facility]/ZIP Co de Phone Number [facility] [address] [place] [address], [facility] [place] [address] [place] [address] * Ethanol Level, Serum (11/24/2023 3:00 PM CDT) Ethanol, P <10 <10 mg/dL 11/24/2023 4:1 1 PM CDT [facility] Blood (Blood, Venous) 11/24/2023 3:00 PM CDT 11/24/2023 3:51 PM CDT Reuben Hodges D.O. LAB BLOOD NON ADD-O N Performing Organization Address [facility] Co de Phone Number [facility] [address] [place] [address], [place] [address] [place] [address] * (ABNORMAL) Troponin T, 2 Hour with [...] Erlin Espinosa M.D. LAB BLOOD TROPON IN [facility] [address] [place] [address], [place] NPR[facility] [place] [address] [place] [address] * Urinalysis with Microscopic if Indicated (11/10/2023 [...] 8.0 11/10/2023 1:34 PM CDT [facility] Specific Viola 1.010 1.001 - 1.035 11/10/2023 1:34 PM CDT [facility] Urobilinogen 0.2 0.2 - 1.0 mg/dL 11/10/2023 1:34 PM CDT [facility] Urine (Urine, Midstream) 11/10/2023 1:20 PM CDT 11/10/2023 1:30 PM CDT Erlin Espinosa M.D. LAB URINE ORDERA BLES [facility] [address] [place] [address], [place] NPR[facility] [address] [place] [address] * CT Abdomen Pelvis with IV Contrast [...] Espinosa M.D. LAB BLOOD NON AD D-ON [facility] [address] [place] [address], [facility] NPRG [address] [address] * (ABNORMAL) NT-Pro B-Type Natriuretic Peptide (BNP) [...] M.D. LAB BLOOD ADD-ON Performing Organization Address City/[facility]/ZIP Co de Phone Number [facility] [address] [place] [address], [facility] NPRG [address] [address] * (ABNORMAL) Prothrombin Time (PT) (11/10/2023 11:31 [...] CDT Erlin Espinosa M.D. LAB BLOOD ADD-ON [facility] [address] [place] [address], [place] [address] [place] [address] * Lipase (11/10/2023 11:31 AM CDT) Lipase, P 46 13 - 60 U/L 11/10/2023 11:58 AM CDT [facility] Blood (Blood, Venous) 11/10/2023 11:31 AM CDT 11/10/2023 11:34 AM CDT Erlin Espinosa M.D. LAB BLOOD ADD-ON Performing Organization Address [facility] Co de Phone Number [facility] [address] [place] [address], [place] [address] [place] [address] * (ABNORMAL) Hemoglobin A1c (07/30/2023 4:48 PM LAMPS TESTER AND INSPECTOR) Hemoglobin A1c, B 6.9(H) 4.2 - 5.6 % 07/30/2023 5:10 PM LAMPS TESTER AND INSPECTOR CNFL Comment: Hemoglobin A1c values greater than or equal to 6.5 percent are diagnostic for diabetes mellitus. ??Diagnosis should be confirmed by repeat testing. ??In diabetic patients, HbA1c goals should be discussed with healthcare provider. Blood (Blood, Venous) 07/30/2023 4:48 PM LAMPS TESTER AND INSPECTOR 07/30/2023 4:49 PM LAMPS TESTER AND INSPECTOR Kinsey Villatoro M.D. LAB BLOOD ADD-ON [facility] [address] [place] [address], [place] CNFL [facility] in [address] [address] * MM screening mammo BI-Outside Mammogram (07/14/2022 2:10 PM LAMPS TESTER AND INSPECTOR) Narrative IIMS - 08/05/2023 1:25 PM LAMPS TESTER AND INSPECTOR This order has been created and auto-finalized [...] Advance Directives For more information, please contact: [phone] * Full Code (Latest Code Status on [...] Answer Comments Full Code: Discussed Care Teams Dinkey Operator Relationship Specialty Start Date End Date Elsewhere, Pcp PCP - General Internal Medicine 08/18/23
--- OUTSIDE RECORDS SUMMARY | 2023-11-30 08:35 | XMS_ITS | Encounter Summary ---
Author Organization [facility] Address [address] [place] [address] Care Team Providers Care Residential Builder Name Role Phone Elsewhere, Pcp Primary Care Provider Unavailabl e Reason for Referral * Outpatient (Routine) - Authorized Specialty Diagnoses / Procedures Referred By Contac t Referred To Contact Cardiovascular Disease Etelvina Beard APRN, C.N.P., D.N.P. [facility] [place] [address] [facility] Region Referral ID Status Reason Start Date Expiration Date V isits Requested Visits Authorized [id number] Authorized 11/26/2023 05/27/2025 1 1 Scheduling Instructions Can be seen by Kisha or [facility] Cardiology Outreach. * Outpatient (Routine) - Authorized Specialty Diagnoses / Procedures Referred By Contac t Referred To Contact Cardiovascular Diseases / Cardiovascular Disease Diagnoses Atrial Fibrillation Unspecified (HCC) Etelvina Beard APRN, C.N.P., D.N.P. [facility] [place] [address] [facility] Region Referral ID Status Reason Start Date Expiration Date V isits Requested Visits Authorized [id number] Authorized 11/25/2023 05/26/2025 1 1 Reason for Visit * Auth/Cert (Routine) Specialty Diagnoses / Procedures Referred By Contac t Referred To Contact Diagnoses Atrial Fibrillation Unspecified (HCC) Near syncope Procedures IP Referral ID Status Reason Start Date Expiration Date Visits Re quested Visits Authorized [id number] 1 1 Encounter Details Date Type Department Care Team (Latest Contact Info) Description 11/25/2023 12:44 AM CDT - Present Hospital Encounter [facility], Third Floor [address] [place] [phone] Mil Wiggins M.D. [address] [place] [phone] Leonel Soto M.B., Ch.B. [address] [place] [address] Atrial Fibrillation Unspecified (HCC) (Primary Dx) Social History Tobacco Use [...] your living situation today? I have a [facility] place to live 11/25/2023 Sex [...] Mass Index 37.26 11/25/2023 2:08 AM CDT documented in this encounter Progress Notes * Clarisa Cantor - 11/29/2023 12:48 PM CDT Internal Medicine Progress Note Date of Admission: 11/25/2023 LOS: 4 days SUBJECTIVE Ms. Brown was seen and evaluated today at the bedside. Heart rate is better controlled at rest. HR 70s-90s. Upon exertion, HR in 140-150s. Asymptomatic. Denies nausea, vomiting, chest pain, palpitations, dizziness, and lightheadedness. No acute events overnight per nursing report. Mentions chronic back pain. CHIEF COMPLAINT/REASON FOR VISIT Chest pain CURRENT MEDICATIONS Scheduled Medications: apixaban, 5 mg, oral, BID atorvastatin, 40 mg, oral, Daily at bedtime busPIRone, 10 mg, oral, BID digoxin, 125 mcg, oral, Daily dilTIAZem CD, 240 mg, oral, BID diphenhydrAMINE, 25 mg, oral, Once fluticasone furoate-vilanteroL, 1 puff, inhalation, Daily folic acid, 1 mg, oral, Daily insulin aspart, 0-7 Units, subcutaneous, TID insulin aspart, 0-7 Units, subcutaneous, Daily at bedtime lidocaine, 1 patch, transdermal, Daily [Held by provider] lisinopriL, 10 mg, oral, Daily loratadine, 10 mg, oral, Daily multivitamin/mineral-adult, 1 tablet, oral, Daily pantoprazole, 40 mg, oral, Daily before breakfast polyethylene glycol, 17 g, oral, Daily sertraline, 200 mg, oral, Daily thiamine, 100 mg, oral, Daily torsemide, 40 mg, oral, Daily zolpidem, 5 mg, oral, Daily at bedtime Continuous Infusions: PRN Medications: acetaminophen albuterol ALPRAZolam alum-mag hydroxide-simeth artificial saliva hydrocortisone HYDROmorphone ketoconazole ketorolac nicotine polacrilex simethicone sodium chloride OBJECTIVE VITAL SIGNS BP 106/87 (BP Location: Upper;Right arm) Pulse 73 Temp (!) 35.8 ??C (Temporal) Resp 16 Ht 157.5 cm Wt 99.1 kg SpO2 96% BMI 39.96 kg/m?? PHYSICAL EXAMINATION General: Alert and oriented, no acute distress, nontoxic, well appearing. HEENT: NCAT. No scleral icterus. Oral mucosa moist. Neck: Supple. No lymphadenopathy. Cardiovascular. Normal S1 and S2 heart sounds. No murmurs. Radial pulses irregular. Lungs: Clear to auscultation throughout all lung carey bilaterally. Abdomen: Soft, NT, ND, +BS. Extremities: No BLE edema. Neurological: Grossly intact. Answers questions appropriately. Intake/Output Summary (Last 24 hours) at 11/29/2023 1248 Last data filed at 11/29/2023 1156 Gross per 24 hour Intake 500 ml Output 1550 ml Net -1050 ml DIAGNOSTICS Labs: Results from last 7 days Lab Units 11/29/23 0821 11/28/23 0730 11/27/23 0734 WBC x10(9)/L 4.6 5.5 5.1 HEMOGLOBIN g/dL 10.5* 11.0* 10.6* HEMATOCRIT % 35.1* 36.7 36.0 PLATELETS AUTO x10(9)/L 146* 160 153* Results from last 7 days Lab Units 11/29/23 0821 11/28/23 0729 11/27/23 2345 SODIUM P mmol/L 140 138 135 CHLORIDE P mmol/L 99 99 98 BUN P mg/dL 19 22* 26* CREATININE mg/dL 0.59 0.61 0.72 CALCIUM P mg/dL 8.9 9.1 8.9 Results from last 7 days Lab Units 11/25/23 1017 ALBUMIN P g/dL 3.8 AST P U/L 39 ALT P U/L 46* ALK PHOS P U/L 103 BILIRUBIN TOTAL P mg/dL 0.2 Radiology: Echo Transthoracic (TTE) Final Result Echo performed at the patient's bedside. LEFT [...] velocities. Trivial pulmonary valve regurgitation. Normal tricuspid valve.Trivial [...] to exclude thrombus in this location. No pericardial effusion. Attempts were made to optimize the echocardiographic images and two or more left ventricular segments were not visualized adequately to evaluate cardiac structure. The patient's current allergies and medications have been screened. Intravenous Definity ultrasound enhancement agent(s) administered to enhance endocardial border definition. Imaging enhancement agent administered per Echocardiography Contrast Administration Protocol Reference Document [id number] Rev 09/12/2021. Patient met an inclusion criterion and did not have contraindications in screening sections. For the complete report, see the Order-Level Documents. ASSESSMENT / PLAN Brandee Brown is a 63-year-old female admitted on 11/13/2023. She has a history of persistent atrial fibrillation (previously on warfarin), tachycardia mediated cardiomyopathy, heart failure withreduced ejection fraction (28%), hypertension, hyperlipidemia, type 2 diabetes mellitus, lacunar CVA 2017, asthma, bipolar disorder, ADHD, anxiety and depression, nicotine use, morbid obesity status post gastric bypass 2002, polysubstance abuse (alcohol, methamphetamines, cocaine) and cognitive impairment and is admitted for atrial fibrillation with RVR likely due to medication noncompliance and drug use given positive amphetamine and THC and UDS. The patient endorses a lot of noncompliance with medication. # Atrial fibrillation RVR # Chest pain, resolved # Chronic heart failure with preserved ejection fraction The patient was started on IV diltiazem drip and heart rate is better controlled. She was given metoprolol 25 mg p.o. and Cardizem 120 mg p.o. in the ED. Diltiazem drip was weaned off. - Started on oral diltiazem 180 mg twice daily - Uptitrate diltiazem dose to 240 mg twice daily, yesterday - Continue digoxin - Remains in Afib. Discussed potential for cardiac ablation, outpatient follow- up with cardiology - Potassium 4.0, maintain K>4 # DM T2 Most recent A1c 6.9% in July 2023. Not on any home medications. - Continue low dose SSI - Continue to monitor glucose levels # Polysubstance use disorder (alcohol, methamphetamines, cocaine). # Nicotine use disorder The patient is positive for THC and methamphetamines in UDS. Last alcohol consumption was more than1 week ago. No signs of calcification withdrawn on exam. - Nicotine replacement therapy with nicotine gum p.r.n.. - Thiamine replacement, folic acid, multivitamins. 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 - Continue Zoloft. # Chronic back pain The patient was started on Suboxone by PCP in October 19, 2023. - No longer taking Suboxone due to side effects of forgetfulness - Continue Tylenol prn, Toradol q6h, and Dilaudid q6h for back pain - Patient has appointment scheduled with pain medicine on 12/09 for further evaluation and pain management. # Restless leg syndrome # Iron-deficiency anemia Previous iron studies showed iron-deficiency anemia. Failed treatment with ropinirole previously. Had received IV iron infusion at outside hospital. - Hemoglobin 10.8 on admission - Hemoglobin of 10.5, today. Stable. - Continue to monitor CBC, hemoglobin. - Follow up with PCP regarding iron deficiency anemia. # DVT Prophylaxis: Apixaban # Anticipated discharge and Disposition: Plan for discharge tomorrow (11/29) back to assisted living facility. Patient was seen and evaluated today alongside Dr. Soto. All questions were answered and concerns addressed. GUY [employer] attestation - Leonel Soto M.B., B. - 11/29/2023 1:43 PM CDT I saw the patient with the PA student. I was present for or re-performed the History of Present Illness. I saw and evaluated the patient, participating in the casey portions of the service and did medical decision making. I have reviewed the above documentation and agree or amended. * Leonel Soto M.B., B. - 11/28/2023 11:52 AM CDT Internal Medicine Progress Note Date of Admission: 11/25/2023 LOS: 3 days SUBJECTIVE Ms. Brown was seen today at the bedside. Heart rate is better controlled at rest. However , upon exertion , it went up to 150s. CHIEF COMPLAINT/REASON FOR VISIT Chest pain. CURRENT MEDICATIONS Scheduled Medications: apixaban, 5 mg, oral, BID atorvastatin, 40 mg, oral, Daily at bedtime busPIRone, 10 mg, oral, BID digoxin, 125 mcg, oral, Daily dilTIAZem CD, 240 mg, oral, BID fluticasone furoate-vilanteroL, 1 puff, inhalation, Daily folic acid, 1 mg, oral, Daily insulin aspart, 0-7 Units, subcutaneous, TID insulin aspart, 0-7 Units, subcutaneous, Daily at bedtime lidocaine, 1 patch, transdermal, Daily [Held by provider] lisinopriL, 10 mg, oral, Daily loratadine, 10 mg, oral, Daily multivitamin/mineral-adult, 1 tablet, oral, Daily pantoprazole, 40 mg, oral, Daily before breakfast polyethylene glycol, 17 g, oral, Daily sertraline, 200 mg, oral, Daily thiamine, 100 mg, oral, Daily torsemide, 40 mg, oral, Daily zolpidem, 5 mg, oral, Daily at bedtime Continuous Infusions: dilTIAZem in dextrose 5 % 125 mg/125 mL (1 mg/mL) infusion (Cardizem), 2.5-15mg/hr, Last Rate: Stopped (11/26/23 1620) PRN Medications: acetaminophen albuterol ALPRAZolam alum-mag hydroxide-simeth artificial saliva hydrocortisone HYDROmorphone ketoconazole ketorolac nicotine polacrilex simethicone sodium chloride OBJECTIVE VITAL SIGNS BP 125/79 (BP Location: Left leg;Upper) Pulse 101 Temp (!) 35.4 ??C (Temporal) Resp (!) 25 Ht 157.5 cm Wt 99.1 kg SpO2 97% BMI 39.96 kg/m?? PHYSICAL EXAMINATION General: Alert and oriented, no acute distress. HEENT: NCAT. No scleral icterus. Oral mucosa moist. Neck: Supple. No lymphadenopathy. Cardiovascular. Normal S1/S2. No murmurs. Lungs: Clear to auscultation bilaterally. Abdomen: Soft, NT, ND, +BS. Extremities: No BLE edema. Neurological: Grossly intact Intake/Output Summary (Last 24 hours) at 11/28/2023 1152 Last data filed at 11/28/2023 1104 Gross per 24 hour Intake 1010 ml Output 1475 ml Net -465 ml DIAGNOSTICS Labs: Results from last 7 days Lab Units 11/28/23 0730 11/27/23 0734 11/26/23 0657 WBC x10(9)/L 5.5 5.1 5.3 HEMOGLOBIN g/dL 11.0* 10.6* 10.2* HEMATOCRIT % 36.7 36.0 33.9* PLATELETS AUTO x10(9)/L 160 153* 157 Results from last 7 days Lab Units 11/28/23 0729 11/27/23 2345 11/27/23 0734 SODIUM P mmol/L 138 135 139 CHLORIDE P mmol/L 99 98 101 BUN P mg/dL 22* 26* 16 CREATININE mg/dL 0.61 0.72 0.60 CALCIUM P mg/dL 9.1 8.9 9.0 Results from last 7 days Lab Units 11/25/23 1017 ALBUMIN P g/dL 3.8 AST P U/L 39 ALT P U/L 46* ALK PHOS P U/L 103 BILIRUBIN TOTAL P mg/dL 0.2 Radiology: Echo Transthoracic (TTE) Final Result Echo performed at the patient's bedside. LEFT [...] velocities. Trivial pulmonary valve regurgitation. Normal tricuspid valve.Trivial [...] to exclude thrombus in this location. No pericardial effusion. Attempts were made to optimize the echocardiographic images and two or more left ventricular segments were not visualized adequately to evaluate cardiac structure. The patient's current allergies and medications have been screened. Intravenous Definity ultrasound enhancement agent(s) administered to enhance endocardial border definition. Imaging enhancement agent administered per Echocardiography Contrast Administration Protocol Reference Document [id number] Rev 09/12/2021. Patient met an inclusion criterion and did not have contraindications in screening sections. For the complete report, see the Order-Level Documents. ASSESSMENT / PLAN The patient is 63-year-old female admitted on 11/13/2023. She has a history of persistent atrial fibrillation (previously on warfarin), tachycardia mediated cardiomyopathy, heart failure with reducedejection fraction (28%), hypertension, hyperlipidemia, type 2 diabetes mellitus, lacunar CVA 2017, asthma, bipolar disorder, ADHD, anxiety and depression, nicotine use, morbid obesity status post gastric bypass 2002, polysubstance abuse (alcohol, methamphetamines, cocaine) and cognitive impairment and is admitted for atrial fibrillation with RVR likely due to medication noncompliance and drug usegiven positive amphetamine and THC and UDS. The patient endorses a lot of noncompliance with medication intravenous reasons. Atrial fibrillation with rapid ventricular response. Chest pain. Chronic heart failure with preserved ejection fraction. The patient was started on IV diltiazem drip and heart rate is better controlled. She was given metoprolol 25 mg p.o. and Cardizem 120 mg p.o. in the ED. We will continue to monitor in the PCU. Diltiazem drip is weaned off. She will be started on oral diltiazem 180 mg twice daily. -Heart rate not well controlled. Will uptitrate diltiazem dose to 240 mg twice daily. -Will add digoxin today Maintain K>4 and Mg>2. Type II diabetes mellitus. Most recent A1c 6.9% in July 2023. Not on any home medications. Continue low dose SSI Monitor glucose levels. Polysubstance use disorder (alcohol, methamphetamines, cocaine). Nicotine use disorder. The patient is positive for THC and methamphetamines in UDS. Last alcohol consumption was more than1 week ago. No signs of calcification withdrawn on exam. Continue to monitor. Nicotine replacement therapy with nicotine gum p.r.n.. Thiamine replacement, folic acid, multivitamins. 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 Continue Zoloft. Chronic back pain. The patient was started on Suboxone by PCP in October 19, 2023. The patient has received ketorolac, tramadol and Dilaudid for chest pain. She has no longer taking Suboxone due to side effects of forgetfulness. Continue Tylenol, Toradol on rest pain control. We will resume Dilaudid as p.r.n.. Restless leg syndrome. Iron-deficiency anemia. Previous iron studies showed iron-deficiency anemia. Failed treatment with ropinirole previously. Hemoglobin 10.8 on admission. Had received IV iron infusion at outside hospital. Continue to monitor CBC, hemoglobin. Discontinue ropinirole as she is not taking it. Follow up with PCP regarding iron deficiency anemia. # DVT Prophylaxis: Apixaban # Anticipated discharge and Disposition: Pending clinical improvement. Total time spent 35 minutes. * Leonel Soto M.B., Ch.B. - 11/27/2023 1:14 PM CDT Internal Medicine Progress Note Date of Admission: 11/25/2023 LOS: 2 days SUBJECTIVE Ms. Brown was seen today at the bedside. Heart rate was not well controlled. She is stating that she is not ready for discharge. CHIEF COMPLAINT/REASON FOR VISIT Chest pain. CURRENT MEDICATIONS Scheduled Medications: apixaban, 5 mg, oral, BID atorvastatin, 40 mg, oral, Daily at bedtime busPIRone, 10 mg, oral, BID dilTIAZem CD, 120 mg, oral, Once dilTIAZem CD, 240 mg, oral, BID fluticasone furoate-vilanteroL, 1 puff, inhalation, Daily folic acid, 1 mg, oral, Daily insulin aspart, 0-7 Units, subcutaneous, TID insulin aspart, 0-7 Units, subcutaneous, Daily at bedtime lidocaine, 1 patch, transdermal, Daily [Held by provider] lisinopriL, 10 mg, oral, Daily loratadine, 10 mg, oral, Daily multivitamin/mineral-adult, 1 tablet, oral, Daily pantoprazole, 40 mg, oral, Daily before breakfast polyethylene glycol, 17 g, oral, Daily sertraline, 200 mg, oral, Daily thiamine, 100 mg, oral, Daily torsemide, 40 mg, oral, Daily zolpidem, 5 mg, oral, Daily at bedtime Continuous Infusions: dilTIAZem in dextrose 5 % 125 mg/125 mL (1 mg/mL) infusion (Cardizem), 2.5-15mg/hr, Last Rate: Stopped (11/26/23 1620) PRN Medications: acetaminophen albuterol ALPRAZolam alum-mag hydroxide-simeth artificial saliva hydrocortisone HYDROmorphone ketoconazole ketorolac nicotine polacrilex simethicone sodium chloride OBJECTIVE VITAL SIGNS BP (!) 142/105 (BP Location: Left arm;Upper, Patient Position: Semi-recumbent) Pulse 82 Temp 36.1 ??C (Temporal) Resp 19 Ht 157.5 cm Wt 99.1 kg SpO2 97% BMI 39.96 kg/m?? PHYSICAL EXAMINATION General: Alert and oriented, no acute distress. HEENT: NCAT. No scleral icterus. Oral mucosa moist. Neck: Supple. No lymphadenopathy. Cardiovascular. Normal S1/S2. No murmurs. Lungs: Clear to auscultation bilaterally. Abdomen: Soft, NT, ND, +BS. Extremities: No BLE edema. Neurological: Grossly intact Intake/Output Summary (Last 24 hours) at 11/27/2023 1314 Last data filed at 11/27/2023 1100 Gross per 24 hour Intake 965 ml Output 1400 ml Net -435 ml DIAGNOSTICS Labs: Results from last 7 days Lab Units 11/27/23 0734 11/26/23 0657 11/25/23 1017 WBC x10(9)/L 5.1 5.3 5.1 HEMOGLOBIN g/dL 10.6* 10.2* 10.1* HEMATOCRIT % 36.0 33.9* 34.4* PLATELETS AUTO x10(9)/L 153* 157 170 Results from last 7 days Lab Units 11/27/23 0734 11/26/23 0657 11/25/23 1017 SODIUM P mmol/L 139 136 138 CHLORIDE P mmol/L 101 100 101 BUN P mg/dL 16 16 18 CREATININE mg/dL 0.60 0.50* 0.58* CALCIUM P mg/dL 9.0 8.7* 8.7* Results from last 7 days Lab Units 11/25/23 1017 ALBUMIN P g/dL 3.8 AST P U/L 39 ALT P U/L 46* ALK PHOS P U/L 103 BILIRUBIN TOTAL P mg/dL 0.2 Radiology: Echo Transthoracic (TTE) Final Result Echo performed at the patient's bedside. LEFT [...] velocities. Trivial pulmonary valve regurgitation. Normal tricuspid valve.Trivial [...] to exclude thrombus in this location. No pericardial effusion. Attempts were made to optimize the echocardiographic images and two or more left ventricular segments were not visualized adequately to evaluate cardiac structure. The patient's current allergies and medications have been screened. Intravenous Definity ultrasound enhancement agent(s) administered to enhance endocardial border definition. Imaging enhancement agent administered per Echocardiography Contrast Administration Protocol Reference Document [id number] Rev 09/12/2021. Patient met an inclusion criterion and did not have contraindications in screening sections. For the complete report, see the Order-Level Documents. ASSESSMENT / PLAN The patient is 63-year-old female admitted on 11/13/2023. She has a history of persistent atrial fibrillation (previously on warfarin), tachycardia mediated cardiomyopathy, heart failure with reducedejection fraction (28%), hypertension, hyperlipidemia, type 2 diabetes mellitus, lacunar CVA 2017, asthma, bipolar disorder, ADHD, anxiety and depression, nicotine use, morbid obesity status post gastric bypass 2002, polysubstance abuse (alcohol, methamphetamines, cocaine) and cognitive impairment and is admitted for atrial fibrillation with RVR likely due to medication noncompliance and drug usegiven positive amphetamine and THC and UDS. The patient endorses a lot of noncompliance with medication intravenous reasons. Atrial fibrillation with rapid ventricular response. Chest pain. Chronic heart failure with preserved ejection fraction. The patient was started on IV diltiazem drip and heart rate is better controlled. She was given metoprolol 25 mg p.o. and Cardizem 120 mg p.o. in the ED. We will continue to monitor in the PCU. Diltiazem drip is weaned off. She will be started on oral diltiazem 180 mg twice daily. -Heart rate not well controlled. Will uptitrate diltiazem dose to 240 mg twice daily. Maintain K>4 and Mg>2. Type II diabetes mellitus. Most recent A1c 6.9% in July 2023. Not on any home medications. Continue low dose SSI Monitor glucose levels. Polysubstance use disorder (alcohol, methamphetamines, cocaine). Nicotine use disorder. The patient is positive for THC and methamphetamines in UDS. Last alcohol consumption was more than1 week ago. No signs of calcification withdrawn on exam. Continue to monitor. Nicotine replacement therapy with nicotine gum p.r.n.. Thiamine replacement, folic acid, multivitamins. 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 Continue Zoloft. Chronic back pain. The patient was started on Suboxone by PCP in October 19, 2023. The patient has received ketorolac, tramadol and Dilaudid for chest pain. She has no longer taking Suboxone due to side effects of forgetfulness. Continue Tylenol, Toradol on rest pain control. We will resume Dilaudid as p.r.n.. Restless leg syndrome. Iron-deficiency anemia. Previous iron studies showed iron-deficiency anemia. Failed treatment with ropinirole previously. Hemoglobin 10.8 on admission. Had received IV iron infusion at outside hospital. Continue to monitor CBC, hemoglobin. Discontinue ropinirole as she is not taking it. Follow up with PCP regarding iron deficiency anemia. # DVT Prophylaxis: Apixaban # Anticipated discharge and Disposition: Pending clinical improvement. Total time spent 35 minutes. * Jacek Barker, R.N. - 11/27/2023 9:19 AM CDT SUBJECTIVE Case management following patient for discharge planning needs. OBJECTIVE Patient was admitted to the hospital with #1 Atrial Fibrillation Unspecified (HCC) ASSESSMENT / PLAN ASSESSMENT [employer] Registrar participated in bedside team rounds with Dr. Soto and bedside nurse Ingrid. Per rounds patient continues to have an elevated heart rate and is not medically stable to discharge today 11/26.Patient expressed frustration with a cut off time to return to the facility. [employer] Registrar educated patient that an assessment from a nurse and ensure patient has all the appropriate medications. Patient reported she feels like a child with a curfew. Patient expressed wanting to look at moving out of the facility in the future. Secondary School Registrar [facility]. Secondary [employer] Registrar spoke with the receivable executive to inquire if patient would be able to return to the facility over the weekend. The receivable executive reports they will have to look and see if they can accommodate the patient for a weekend return. [employer] Registrar printed off resources for assisted living facilities to provide to patient. Secondary [employer] Registrar provided patient with the list. Patient reported she is not interested in other assisted living facilities. Patient reports sign writer letterer or painter is no longer able to talk with facility regarding patient. Secondary [employer] Registrar inquired howwriter should coordinate discharge. Patient reports the facility can speak with my daughter. PLAN Care Management will continue following patient for discharge planning and care coordination. Jacek Barker R.N. 11/27/23 * Leonel Soto M.B., Ch.B. - 11/26/2023 11:52 AM CDT Internal Medicine Progress Note Date of Admission: 11/25/2023 LOS: 1 day SUBJECTIVE Ms. Brown was seen today at the bedside. Heart rate is better today. Denies fever or chills. CHIEF COMPLAINT/REASON FOR VISIT Chest pain. CURRENT MEDICATIONS Scheduled Medications: apixaban, 5 mg, oral, BID atorvastatin, 40 mg, oral, Daily at bedtime busPIRone, 10 mg, oral, BID dilTIAZem CD, 180 mg, oral, BID fluticasone furoate-vilanteroL, 1 puff, inhalation, Daily folic acid, 1 mg, oral, Daily insulin aspart, 0-7 Units, subcutaneous, TID insulin aspart, 0-7 Units, subcutaneous, Daily at bedtime lidocaine, 1 patch, transdermal, Daily [Held by provider] lisinopriL, 10 mg, oral, Daily loratadine, 10 mg, oral, Daily multivitamin/mineral-adult, 1 tablet, oral, Daily pantoprazole, 40 mg, oral, Daily before breakfast polyethylene glycol, 17 g, oral, Daily sertraline, 200 mg, oral, Daily thiamine, 100 mg, oral, Daily torsemide, 40 mg, oral, Daily zolpidem, 5 mg, oral, Daily at bedtime Continuous Infusions: dilTIAZem in dextrose 5 % 125 mg/125 mL (1 mg/mL) infusion (Cardizem), 2.5-15mg/hr, Last Rate: 7.5 mg/hr (11/26/23 1100) PRN Medications: acetaminophen albuterol ALPRAZolam alum-mag hydroxide-simeth artificial saliva hydrocortisone HYDROmorphone ketoconazole ketorolac nicotine polacrilex simethicone sodium chloride OBJECTIVE VITAL SIGNS BP 123/86 (BP Location: Left arm;Upper, Patient Position: Semi-recumbent) Pulse 78 Temp 36.2 ??C (Temporal) Resp 23 Ht 157.5 cm Wt 93.2 kg SpO2 98% BMI 37.58 kg/m?? PHYSICAL EXAMINATION General: Alert and oriented, no acute distress. HEENT: NCAT. No scleral icterus. Oral mucosa moist. Neck: Supple. No lymphadenopathy. Cardiovascular. Normal S1/S2. No murmurs. Lungs: Clear to auscultation bilaterally. Abdomen: Soft, NT, ND, +BS. Extremities: No BLE edema. Neurological: Grossly intact Intake/Output Summary (Last 24 hours) at 11/26/2023 1152 Last data filed at 11/26/2023 1105 Gross per 24 hour Intake 2644.71 ml Output 3075 ml Net -430.29 ml DIAGNOSTICS Labs: Results from last 7 days Lab Units 11/26/23 0657 11/25/23 1017 11/24/23 1500 WBC x10(9)/L 5.3 5.1 7.6 HEMOGLOBIN g/dL 10.2* 10.1* 10.8* HEMATOCRIT % 33.9* 34.4* 35.6 PLATELETS AUTO x10(9)/L 157 170 208 Results from last 7 days Lab Units 11/26/23 0657 11/25/23 1017 11/24/23 1500 SODIUM P mmol/L 136 138 141 CHLORIDE P mmol/L 100 101 106 BUN P mg/dL 16 18 16 CREATININE mg/dL 0.50* 0.58* 0.80 CALCIUM P mg/dL 8.7* 8.7* 8.7* Results from last 7 days Lab Units 11/25/23 1017 ALBUMIN P g/dL 3.8 AST P U/L 39 ALT P U/L 46* ALK PHOS P U/L 103 BILIRUBIN TOTAL P mg/dL 0.2 Radiology: Echo Transthoracic (TTE) Final Result Echo performed at the patient's bedside. LEFT [...] velocities. Trivial pulmonary valve regurgitation. Normal tricuspid valve.Trivial [...] to exclude thrombus in this location. No pericardial effusion. Attempts were made to optimize the echocardiographic images and two or more left ventricular segments were not visualized adequately to evaluate cardiac structure. The patient's current allergies and medications have been screened. Intravenous Definity ultrasound enhancement agent(s) administered to enhance endocardial border definition. Imaging enhancement agent administered per Echocardiography Contrast Administration Protocol Reference Document [id number] Rev 09/12/2021. Patient met an inclusion criterion and did not have contraindications in screening sections. For the complete report, see the Order-Level Documents. ASSESSMENT / PLAN The patient is 63-year-old female admitted on 11/13/2023. She has a history of persistent atrial fibrillation (previously on warfarin), tachycardia mediated cardiomyopathy, heart failure with reducedejection fraction (28%), hypertension, hyperlipidemia, type 2 diabetes mellitus, lacunar CVA 2017, asthma, bipolar disorder, ADHD, anxiety and depression, nicotine use, morbid obesity status post gastric bypass 2002, polysubstance abuse (alcohol, methamphetamines, cocaine) and cognitive impairment and is admitted for atrial fibrillation with RVR likely due to medication noncompliance and drug usegiven positive amphetamine and THC and UDS. The patient endorses a lot of noncompliance with medication intravenous reasons. Atrial fibrillation with rapid ventricular response. Chest pain. Chronic heart failure with preserved ejection fraction. The patient was started on IV diltiazem drip and heart rate is better controlled. She was given metoprolol 25 mg p.o. and Cardizem 120 mg p.o. in the ED. We will continue to monitor in the PCU. Diltiazem drip is weaned off. She will be started on oral diltiazem 180 mg twice daily. Maintain K>4 and Mg>2. Type II diabetes mellitus. Most recent A1c 6.9% in July 2023. Not on any home medications. Continue low dose SSI Monitor glucose levels. Polysubstance use disorder (alcohol, methamphetamines, cocaine). Nicotine use disorder. The patient is positive for THC and methamphetamines in UDS. Last alcohol consumption was more than1 week ago. No signs of calcification withdrawn on exam. Continue to monitor. Nicotine replacement therapy with nicotine gum p.r.n.. Thiamine replacement, folic acid, multivitamins. 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 Continue Zoloft. Chronic back pain. The patient was started on Suboxone by PCP in October 19, 2023. The patient has received ketorolac, tramadol and Dilaudid for chest pain. She has no longer taking Suboxone due to side effects of forgetfulness. Continue Tylenol, Toradol on rest pain control. We will resume Dilaudid as p.r.n.. Restless leg syndrome. Iron-deficiency anemia. Previous iron studies showed iron-deficiency anemia. Failed treatment with ropinirole previously. Hemoglobin 10.8 on admission. Had received IV iron infusion at outside hospital. Continue to monitor CBC, hemoglobin. Discontinue ropinirole as she is not taking it. Follow up with PCP regarding iron deficiency anemia. # DVT Prophylaxis: Apixaban # Anticipated discharge and Disposition: Pending clinical improvement. Total time spent 40 minutes. * Etelvina Beard APRN, C.N.P., D.N.P. - 11/26/2023 8:17 AM CDT Images from the original note were not included. CARDIOLOGY INPATIENT PROGRESS NOTE PRIMARY CARE PROVIDER: Greta Thao APRN [facility] SUBJECTIVE CHIEF CARDIAC COMPLAINT: Persistent atrial fibrillation with tachycardia; history of previous DCCV x2, antiarrhythmic therapy failed; systemic hypertension; obesity with BMI 37.58; anemia unknown etiology; dyslipidemia; severe anxiety/depression/PTSD/bipolar disorder; chronic pain EVENTS IN THE PAST 24 HOURS: Patient was sitting up in her bed eating breakfast at this point. She seems to be more alert and happy at this point. She is aware that the plan is to transition her to oral diltiazem twice daily with use of anticoagulation and EP as an outpatient. She was satisfied with that plan. Denies any problems with any palpitations at the current time. No presyncope syncope sensation. No chest pain or chest pressure. OBJECTIVE VITAL SIGNS Temperature: [36 ??C-36.3 ??C] 36.1 ??C Heart Rate: [71-122] 71 Resp Rate: [14-26] 14 Blood Pressure: (104-145)/(64-106) 127/96 SpO2: [92 %-98 %] 92 % Flow Rate (L/min): [0 L/min] 0 L/min Weight: [93.2 kg] 93.2 kg BMI (Calculated): [37.6 kg/m??] 37.6 kg/m?? Pulse Rate: [35-159] 92 Wt Readings from Last 3 Encounters: 11/26/23 93.2 kg 11/24/23 91 kg 11/10/23 91.3 kg Body mass index is 37.58 kg/m??. PHYSICAL EXAMINATION General: Comfortable and in no acute distress. Restless. Skin: No stasis dermatitis or ulceration of the lower extremities. Neck: No carotid bruits or jugular venous distention. Lungs: Clear bilaterally with good air entry. No crackles. Heart: Irregular rate and rhythm. Normal S1, S2, no murmurs. No S3 or S4 gallops. PMI is not displaced. Abdomen: Positive bowel sounds. No organomegaly. Soft, nontender. Liver is nonpulsatile. Extremities: Radial and carotid pulses are equal and symmetric bilaterally. Peripheral pulses equalbilaterally. Distal CMS intact. No clubbing or peripheral edema. Psych: Alert and oriented to person, place, and time. Mood is euthymic INs/OUTs Past 24 hours: Intake/Output Summary (Last 24 hours) at 11/26/2023 0818 Last data filed at 11/26/2023 0757 Gross per 24 hour Intake 2006.79 ml Output 3200 ml Net -1193.21 ml INTAKE/OUTPUT SINCE ADMIT: -198.5 SCHEDULED MEDS: apixaban, 5 mg, oral, BID atorvastatin, 40 mg, oral, Daily at bedtime busPIRone, 10 mg, oral, BID fluticasone furoate-vilanteroL, 1 puff, inhalation, Daily folic acid, 1 mg, oral, Daily insulin aspart, 0-7 Units, subcutaneous, TID insulin aspart, 0-7 Units, subcutaneous, Daily at bedtime lidocaine, 1 patch, transdermal, Daily [Held by provider] lisinopriL, 10 mg, oral, Daily loratadine, 10 mg, oral, Daily multivitamin/mineral-adult, 1 tablet, oral, Daily pantoprazole, 40 mg, oral, Daily before breakfast polyethylene glycol, 17 g, oral, Daily sertraline, 200 mg, oral, Daily thiamine, 100 mg, oral, Daily torsemide, 40 mg, oral, Daily zolpidem, 5 mg, oral, Daily at bedtime Current Anti-Coagulation and Anti-Platelet Medications Medication Dose Route Last Rate Last Admin apixaban 5 mg oral 5 mg at 11/26/23 0815 CONTINUOUS INFUSION: dilTIAZem in dextrose 5 % 125 mg/125 mL (1 mg/mL) infusion (Cardizem), 2.5-15 mg/hr, Last Rate: 12.5 mg/hr (11/26/23 0757) PRN MEDS: acetaminophen albuterol ALPRAZolam alum-mag hydroxide-simeth artificial saliva hydrocortisone HYDROmorphone ketoconazole ketorolac nicotine polacrilex simethicone sodium chloride DIAGNOSTICS Labs: Results from last 7 days Lab Units 11/26/23 0657 11/25/23101611/24/23 1500 WBC x10(9)/L 5.3 5.1 7.6 HEMOGLOBIN g/dL 10.2* 10.1* 10.8* HEMATOCRIT % 33.9* 34.4* 35.6 PLATELETS AUTO x10(9)/L 157 170 208 Results from last 7 days Lab Units 11/26/23 0657 11/25/23 1017 11/24/23 1500 SODIUM P mmol/L 136 138 141 CREATININE mg/dL 0.50* 0.58* 0.80 ESTIMATED GFR EGFR mL/min/BSA >90 >90 83 BUN P mg/dL 16 18 16 MAGNESIUM RL mg/dL -- 1.9 -- CHLORIDE P mmol/L 100 101 106 Results from last 7 days Lab Units 11/25/23 1017 ALBUMIN P g/dL 3.8 AST P U/L 39 ALT P U/L 46* ALK PHOS P U/L 103 BILIRUBIN TOTAL P mg/dL 0.2 Results from last 7 days Lab Units 11/26/23 0657 11/26/23 0623 11/25/23201411/25/23 1621 11/25/23 1134 11/25/23 1017 11/25/23 0815 11/24/23 1500 SODIUM P mmol/L 136 -- -- -- -- 138 -- 141 POTASSIUM P mmol/L 4.2 -- -- -- -- 3.9 -- 4.1 CHLORIDE P mmol/L 100 -- -- -- -- 101 -- 106 BICARBONATE PLASMA mmol/L 23 -- -- -- -- 24 -- 24 BUN P mg/dL 16 -- -- -- -- 18 -- 16 CREATININE mg/dL 0.50* -- -- -- -- 0.58* -- 0.80 CALCIUM P mg/dL 8.7* -- -- -- -- 8.7* -- 8.7* ALBUMIN P g/dL -- -- -- -- -- 3.8 -- -- PROTEIN TOTAL P g/dL -- -- -- -- -- 6.4 -- -- BILIRUBIN TOTAL P mg/dL -- -- -- -- -- 0.2 -- -- ALK PHOS P U/L -- -- -- -- -- 103 -- -- ALT P U/L -- -- -- -- -- 46* -- -- AST P U/L -- -- -- -- -- 39 -- -- GLUCOSE P mg/dL 151* -- -- -- -- 180* -- 132 POC GLUCOSE mg/dL -- 177* 141* 159* < > -- < > -- < > = values in this interval not displayed. TTE: Hemodynamics Heart Rate: 93 BPM Blood Pressure: 128 / 106 mmHg ECG: Atrial fibrillation Final Impressions 1. Mildly enlarged right ventricular chamber size, borderline reduced systolic function (best seen on image 97). 2. [...] of 01/12/2018 the following changes have occurred: right ventricular filling pressure is now normal. Right ventricular size and function were better assessed on today's study with use of contrast. Side by side comparison of images performed. LEFT VENTRICLE:Normal left ventricular chamber size. Normal [...] to exclude thrombus in this location. No pericardial effusion. TELEMETRY: ASSESSMENT / PLAN # persistent atrial fibrillation with tachycardia # History of tachy induced cardiomyopathy # systemic hypertension # Obesity with BMI 37.58 Looking back to 2019 this appears to be persistent. He was had at least 2 cardioversions in the past. She has been trialed on antiarrhythmics including amiodarone and sotalol which apparently were not effective. Despite being on rate control with metoprolol and diltiazem those have had to be adjusted secondaryto her hypotension. Last echo had shown moderate to severe left atrial enlargement and mild right atrial enlargement. Will reassess with the current echo. Will wean off her diltiazem drip and place on oral diltiazem CD 180 mg twice daily. Would recommend patient to be assessed for sleep apnea. It appears this has been recommended in thepast and she was not completed. Outpatient EP consult which patient agrees to. [facility] She will be seen by [facility] as an outpatient and then EP consultation forconsideration of ablation most likely will be done either in [place] or [place]. # Anemia Unsure of the etiology. Defer to primary service. # dyslipidemia Presents on Lipitor 40 mg daily. # polysubstance abuse (alcohol, methamphetamines, cocaine) # cognitive dysfunction # type 2 diabetes # CVA in 2018 # chronic back pain # ADHD # generalized anxiety # bipolar disorder # PTSD # chronic pain on Lyrica, tizanidine UDS Positive THC and amphetamines. Last alcohol consumption was this weekend. States has not taken her Adderall for several weeks. Managed per primary service. Total care was discussed with the patient who expressed understanding and agreement to the current plan. No further input from Cardiology this current time. Cardiology to sign off. Feel free to call with questions. Outpatient EP appointment has been scheduled. Continue to follow with her primary care provider as well as her primary cardiology provider as an outpatient. MARGIN CODE TOTAL TIME: 35 minutes with >50% time spent in counseling and coordination of care. This time isindependent of the time documented by the MD. * Leonel Soto M.B., Ch.B. - 11/25/2023 1:27 PM CDT Internal Medicine Progress Note Date of Admission: 11/25/2023 LOS: 0 days SUBJECTIVE Ms. Brown was seen today at the bedside. She denies new complaints. Denies fever or chills. CHIEF COMPLAINT/REASON FOR VISIT Chest pain. CURRENT MEDICATIONS Scheduled Medications: apixaban, 5 mg, oral, BID atorvastatin, 40 mg, oral, Daily at bedtime busPIRone, 10 mg, oral, BID fluticasone furoate-vilanteroL, 1 puff, inhalation, Daily folic acid, 1 mg, oral, Daily insulin aspart, 0-7 Units, subcutaneous, TID insulin aspart, 0-7 Units, subcutaneous, Daily at bedtime lidocaine, 1 patch, transdermal, Daily [Held by provider] lisinopriL, 10 mg, oral, Daily loratadine, 10 mg, oral, Daily multivitamin/mineral-adult, 1 tablet, oral, Daily pantoprazole, 40 mg, oral, Daily before breakfast polyethylene glycol, 17 g, oral, Daily rOPINIRole, 0.5 mg, oral, Daily sertraline, 200 mg, oral, Daily thiamine, 100 mg, oral, Daily torsemide, 40 mg, oral, Daily zolpidem, 5 mg, oral, Daily at bedtime Continuous Infusions: dilTIAZem in dextrose 5 % 125 mg/125 mL (1 mg/mL) infusion (Cardizem), 10 mg/hr, Last Rate: 10 mg/hr (11/25/23 1139) PRN Medications: acetaminophen albuterol ALPRAZolam alum-mag hydroxide-simeth artificial saliva hydrocortisone HYDROmorphone ketoconazole ketorolac nicotine polacrilex simethicone OBJECTIVE VITAL SIGNS BP (!) 128/106 Pulse 95 Temp 36 ??C (Temporal) Resp 18 Ht 157.5 cm Wt 92.6 kg SpO2 95% BMI 37.34 kg/m?? PHYSICAL EXAMINATION General: Alert and oriented, no acute distress. HEENT: NCAT. No scleral icterus. Oral mucosa moist. Neck: Supple. No lymphadenopathy. Cardiovascular. Normal S1/S2. No murmurs. Lungs: Clear to auscultation bilaterally. Abdomen: Soft, NT, ND, +BS. Extremities: No BLE edema. Neurological: Grossly intact Intake/Output Summary (Last 24 hours) at 11/25/2023 1327 Last data filed at 11/25/2023 1300 Gross per 24 hour Intake 1694.67 ml Output 1100 ml Net 594.67 ml DIAGNOSTICS Labs: Results from last 7 days Lab Units 11/25/23 1017 11/24/23 1500 WBC x10(9)/L 5.1 7.6 HEMOGLOBIN g/dL 10.1* 10.8* HEMATOCRIT % 34.4* 35.6 PLATELETS AUTO x10(9)/L 170 208 Results from last 7 days Lab Units 11/25/23 1017 11/24/23 1500 SODIUM P mmol/L 138 141 CHLORIDE P mmol/L 101 106 BUN P mg/dL 18 16 CREATININE mg/dL 0.58* 0.80 CALCIUM P mg/dL 8.7* 8.7* Results from last 7 days Lab Units 11/25/23 1017 ALBUMIN P g/dL 3.8 AST P U/L 39 ALT P U/L 46* ALK PHOS P U/L 103 BILIRUBIN TOTAL P mg/dL 0.2 Radiology: Echo Transthoracic (TTE) (Results Pending) ASSESSMENT / PLAN The patient is 63-year-old female admitted on 11/13/2023. She has a history of persistent atrial fibrillation (previously on warfarin), tachycardia mediated cardiomyopathy, heart failure with reducedejection fraction (28%), hypertension, hyperlipidemia, type 2 diabetes mellitus, lacunar CVA 2017, asthma, bipolar disorder, ADHD, anxiety and depression, nicotine use, morbid obesity status post gastric bypass 2002, polysubstance abuse (alcohol, methamphetamines, cocaine) and cognitive impairment and is admitted for atrial fibrillation with RVR likely due to medication noncompliance and drug usegiven positive amphetamine and THC and UDS. The patient endorses a lot of noncompliance with medication intravenous reasons. Atrial fibrillation with rapid ventricular response. Chest pain. Chronic heart failure with preserved ejection fraction. The patient was started on IV diltiazem drip and heart rate is better controlled. She was given metoprolol 25 mg p.o. and Cardizem 120 mg p.o. in the ED. We will continue to monitor in the PCU. Cardiology consulted. Will defer management and drug selection to them. Maintain K>4 and Mg>2. Type II diabetes mellitus. Most recent A1c 6.9% in July 2023. Not on any home medications. Continue low dose SSI Monitor glucose levels. Polysubstance use disorder (alcohol, methamphetamines, cocaine). Nicotine use disorder. The patient is positive for THC and methamphetamines in UDS. Last alcohol consumption was more than1 week ago. No signs of calcification withdrawn on exam. Continue to monitor. Nicotine replacement therapy with nicotine gum p.r.n.. Thiamine replacement, folic acid, multivitamins. 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 Continue Zoloft. Chronic back pain. The patient was started on Suboxone by PCP in October 19, 2023. The patient has received ketorolac, tramadol and Dilaudid for chest pain. She has no longer taking Suboxone due to side effects of forgetfulness. Continue Tylenol, Toradol on rest pain control. We will resume Dilaudid as p.r.n.. Restless leg syndrome. Iron-deficiency anemia. Previous iron studies showed iron-deficiency anemia. Failure treatment with ropinirole previously. Hemoglobin 10.8 on admission. Had received IV iron infusion at outside hospital. Continue to monitor CBC, hemoglobin. Discontinue ropinirole as she is not taking it. # DVT Prophylaxis: Apixaban # Anticipated discharge and Disposition: Pending clinical improvement. Total time spent 40 minutes. * Isha Vieira, Pharm.D., R.Ph. - 11/25/2023 10:32 AM CDT Images from the original note were not included. Admission Medication History Note Adherence issues: No concerns Medication list source: Patient Medication related information: pt has unresponsive episode, she think metoprolol dose is too high,she reduced dose herself and took 25 mg in am and 50 mg at bedtime. She is not sure about new diltizem Rx. She is taking Wixela not symbicort. Prior to Admission Medications Med List Status: Pharmacy Complete Set By: Isha Vieira, Pharm.D., R.Ph. at 11/25/2023 10:31 AM Taking? Last Dose Informant Start Date End Date LT acetaminophen (TYLENOL) 500 mg tablet -- -- -- -- Take 1,000 mg by mouth every 6 (six) hours as needed. Take at 7:00 am, 12:00 pm, 5:00 pm, 10:00 pm apixaban (Eliquis) 5 mg tablet 11/24/2023 -- -- -- Take 5 mg by mouth 2 (two) times a day. atorvastatin (LIPITOR) 40 mg tablet 11/24/2023 -- 08/13/23 -- Take 1 tablet (40 mg total) by mouth at bedtime. azelastine (ASTELIN) 137 mcg/spray (0.1 %) nasal spray 11/24/2023 -- 07/30/23 -- Administer 1 spray into each nostril 2 (two) times a day. blood glucose strip-disp meter kit 11/24/2023 -- 06/06/19 -- Check blood sugar every Thursday and at rotating times Dispense item covered by pt ins. E11.65 NIDDM type II, controlled busPIRone (BUSPAR) 10 mg tablet Past Week -- 07/06/23 -- Take 15 mg by mouth every 6 (six) hours as needed (anxiety). clobetasoL (Temovate) 0.05 % cream 11/24/2023 -- -- -- Apply 1 Application topically 2 (two) times a day as needed. Apply to dry feet cyanocobalamin (VITAMIN B12) 1,000 mcg tablet Past Week -- 08/10/23 -- Take 1 tablet (1,000 mcg total) by mouth daily. diaper,brief,adult,disposable misc 11/24/2023 -- 08/13/23 -- Use daily as needed for incontinence. dilTIAZem CD (Cardizem CD) 120 mg 24 hr capsule -- -- -- -- Take 120 mg by mouth daily. Notes: New Rx, not sure if taking fluticasone propion-salmeteroL 250-50 mcg/dose diskus inhaler 11/24/2023 -- 12/14/20 -- Inhale 1 puff. fluticasone propionate (FLONASE) 50 mcg/actuation nasal spray 11/24/2023 -- 07/30/23 -- Administer 1 spray into each nostril 2 (two) times a day. glycerin suppository -- -- -- -- Insert 2 g into the rectum daily as needed for constipation. haloperidoL (HALDOL) 1 mg tablet 11/24/2023 -- 01/30/23 -- 1 mg 4 (four) times a day as needed. hydrocortisone (CORTIZONE) 1 % ointment Past Week -- -- -- Apply topically to hemorrhoid two times daily as needed ipratropium-albuterol (for_DUO-NEB) 0.5-2.5 mg/3 mL nebulizer solution Past Week External Chart -- -- Inhale 3 mL by nebulization 2 (two) times a day as needed for wheezing. Take at 7:00 am, 4:00 pm ketoconazole (NIZORAL) 2 % shampoo Past Week -- 11/12/21 -- 1 Application as needed. lancets misc 11/24/2023 -- 07/19/17 -- One touch delica lancets 33g Dispense item covered by pt ins. E11.9 NIDDM type II - Test 2 times per week lisinopril (PRINIVIL,ZESTRIL) 10 mg tablet 11/24/2023 -- 02/08/19 11/25/23 Take 1 tablet (10 mg total) by mouth daily. loperamide (IMODIUM A-D) 2 mg capsule -- -- 01/30/23 -- Take 2 mg by mouth 4 (four) times a day as needed. loratadine (CLARITIN) 10 mg tablet 11/24/2023 -- 08/13/23 -- Take 1 tablet (10 mg total) by mouth daily. methocarbamoL (Robaxin) 500 mg tablet -- -- -- -- Take 500 mg by mouth 2 (two) times a day as needed for muscle spasms. metoprolol tartrate (LOPRESSOR) 50 mg tablet 11/24/2023 -- 08/13/23 -- Take 1 tablet (50 mg total) by mouth 2 (two) times a day. Patient taking differently: Take by mouth 2 (two) times a day. 50 mg in am and 100 mg at bedtime, New Rx Notes: Takes 25 mg in am and 50 mg at bedtime metroNIDAZOLE (MetroCream) 0.75 % cream 11/24/2023 -- -- -- Apply 1 Application topically daily. Apply to face miscellaneous medical supply [facility] [place] Unknown -- 03/15/18 -- Length: calf Strength: 16-20 mmHg Circumference in cm: For calf: Ankle 12, Calf 18.5 , Ankle to calf length 12 . multivitamin (FLINTSTONES) chewable 11/24/2023 -- -- -- Take two daily mupirocin (Bactroban) 2 % ointment -- -- -- -- Apply 1 Application topically daily as needed. Apply to open sores on the body nebulizer accessories kit Past Month -- 03/16/18 -- For home use. Length of need: 12 months nystatin (NYSTOP) 100,000 unit/gram powder Past Month -- 08/05/23 -- Apply topically 2 (two) times a day as needed (rash/irritation). omeprazole (PriLOSEC) [address] capsule 11/24/2023 -- 04/13/13 -- Take 20 mg by mouth every morning before breakfast. ondansetron ODT (ZOFRAN-ODT) 4 mg disintegrating tablet Past Week -- 08/13/23 -- Dissolve 1 tablet (4 mg total) in the mouth every 8 (eight) hours as needed for nausea or vomiting. ONETOUCH DELICA LANCETS 33 gauge [facility] [place] 11/24/2023 -- 07/19/17 -- TEST 2 TIMES PER WEEK polyethylene glycol (for_MIRALAX) 17 gram powder packet 11/24/2023 -- -- -- Take 17 g by mouth daily. Mix in 4-8 ounces of water or juice and drink two times daily sennosides-docusate sodium (SENOKOT-S) 8.6-50 mg per tablet 11/24/2023 -- 09/28/20 -- Take 1 tablet by mouth 2 (two) times a day. sertraline (for_ZOLOFT) 100 mg tablet 11/24/2023 -- 03/17/17 -- Take 200 mg by mouth daily. simethicone (MYLICON) 125 mg chewable tablet 11/24/2023 -- 08/13/23 -- Chew 1 tablet (125 mg total) 4 (four) times a day as needed for flatulence. Take at 7:00 am, 12:00 pm, 5:00 pm, 8:00 pm SUMAtriptan (IMITREX) 50 mg tablet Past Month -- 08/12/23 -- Take 1 tablet (50 mg total) by mouth as needed for migraine. May repeat dose once in 2 hours if migraine is unresolved. Do not exceed 200 mg in 24 hours. tacrolimus (PROTOPIC) 0.1 % ointment -- -- 07/21/23 -- Apply 1 Application topically as directed. 1-2 times daily to feet for nerve itching torsemide (DEMADEX) 20 mg tablet 11/24/2023 -- 02/08/19 11/25/23 Take 2 tablets (40 mg total) by mouth daily. triamcinolone (KENALOG) 0.1 % cream Past Week -- 11/12/21 -- APPLY THIN LAYER TO ITCHY AREA OF SKIN 1-2X DAILY FOR UP TO 2 WEEKS AT A TIME , TAKE 2 WEEKS OF THEN REPEAT NEEDED FOR FLARES Ventolin HFA 90 mcg/actuation inhaler Past Week -- 08/13/23 -- Inhale 2 puffs every 4 (four) hours as needed for shortness of breath. Notes: May substitute generic Proair, generic Ventolin or generic Proventil as appropriate for patient or insurance preference Xanax 0.5 mg tablet Past Week -- 06/18/23 -- Take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 (ABNORMAL) Basic Metabolic Panel (11/30/2023 5:45 AM CDT) Potassium, P 4.1 3.6 - 5.2 mmol/L [...] CDT Leonel Roman, Ch.B. LAB BLOOD ADD-ON [facility] [address] [place] [address], [facility] [place] [address] * (ABNORMAL) CBC with Differential, Blood (11/30/2023 5:45 AM CDT) Hemoglobin 10.0(L) 11.6 - 15.0 g/dL 11/30/2023 [...] CDT Leonel Roman, Ch.B. LAB BLOOD ADD-ON [facility] [address] [place] [address], [facility] [place] [address] * (ABNORMAL) Glucose, POCT (11/29/2023 7:59 PM CDT) [facility] Signature Glucose, POCT, B 142(H) 70 - 140 mg/dL 11/29/2023 7:59 PM CDT MKTO Blood 11/29/2023 7:59 PM CDT 11/29/2023 8:06 PM CDT Generic [facility] LAB POCT ORDERABLES- MANUAL [facility] [address] [place] [address], [address] [address] * (ABNORMAL) Glucose, POCT (11/29/2023 4:38 PM CDT) Glucose, POCT, B 224(H) 70 - 140 mg/dL 11/29/2023 4:38 PM CDT MKTO Blood 11/29/2023 4:38 PM CDT 11/29/2023 4:55 PM CDT Generic [facility] LAB POCT ORDERABLES- MANUAL [facility] [address] [place] [address], [address] [address] * (ABNORMAL) Glucose, POCT (11/29/2023 12:47 PM CDT) Glucose, POCT, B 158(H) 70 - 140 mg/dL 11/29/2023 12:47 PM CDT MKTO Blood 11/29/2023 12:4 7 PM CDT 11/29/2023 12:55 PM CDT Generic [facility] POCT ORDERABLES- MANUAL [facility] [address] [place] [address], [address] [address] * (ABNORMAL) Glucose, POCT (11/29/2023 9:35 AM CDT) Glucose, POCT, B 152(H) 70 - 140 mg/dL 11/29/2023 9:35 AM CDT MKTO Blood 11/29/2023 9:35 AM CDT 11/29/2023 9:43 AM CDT Generic [facility] POCT ORDERABLES- MANUAL Performing Organization Address City/[facility]/ZIP Co de Phone Number [facility] [address] [place] [address], [address] [address] * (ABNORMAL) Basic Metabolic Panel (11/29/2023 8:21 AM CDT) Potassium, P 4.0 3.6 - 5.2 mmol/L 11/29/2023 10:14 AM CDT MKTO Sodium, P 140 135 - 145 mmol/L 11/29/2023 10:14 AM CDT MKTO Chloride, P 99 98 - 107 mmol/L 11/29/2023 10:14 AM CDT MKTO Bicarbonate, P 27 22 - 29 mmol/L 11/29/2023 10:14 AM CDT MKTO Anion Gap, P 14 7 - 15 11/29/2023 10:14 AM CDT MKTO BUN (Blood Urea Nitrogen), P 19 6 - 21 mg/dL 11/29/2023 10:14 AM CDT MKTO Creatinine 0.59 0.59 - 1.04 mg/dL 11/29/2023 10:14 AM CDT MKTO Estimated GFR (eGFR) >90 >=60 mL/min/BSA 11/29/2023 10:14 AM CDT MKTO Comment: Estimated GFR calculated using the 2020 CKD_EPI creatinine equation. Calcium, Total, P 8.9 8.8 - 10.2 mg/dL 11/29/2023 10:14 AM CDT MKTO Glucose, P 144(H) 70 - 140 mg/dL 11/29/2023 10:14 AM CDT MKTO Blood (Blood, Venous) 11/29/2023 8:21 AM CDT 11/29/2023 9:47 AM CDT Leonel Roman, Ch.B. LAB BLOOD ADD-ON [facility] [address] [place] [address], [address] [address] * (ABNORMAL) CBC with Differential, Blood (11/29/2023 8:21 AM CDT) Hemoglobin 10.5(L) 11.6 - 15.0 g/dL 11/29/2023 9:58 AM CDT MKTO Hematocrit 35.1(L) 35.5 - 44.9 % 11/29/2023 9:58 AM CDT MKTO Erythrocytes 4.34 3.92 - 5.13 x10(12)/L 11/29/2023 9:58 AM CDT MKTO MCV 80.9 78.2 - 97.9 fL 11/29/2023 9:58 AM CDT MKTO RBC Distrib Width 24.7(H) 12.2 - 16.1 % 11/29/2023 9:58 AM CDT MKTO Platelet Count 146(L) 157 - 371 x10(9)/L 11/29/2023 9:58 AM CDT MKTO Leukocytes 4.6 3.4 - 9.6 x10(9)/L 11/29/2023 9:58 AM CDT MKTO Neutrophils 2.97 1.56 - 6.45 x10(9)/L 11/29/2023 9:58 AM CDT MKTO Lymphocytes 0.83(L) 0.95 - 3.07 x10(9)/L 11/29/2023 9:58 AM CDT MKTO Monocytes 0.45 0.26 - 0.81 x10(9)/L 11/29/2023 9:58 AM CDT MKTO Eosinophils 0.34 0.03 - 0.48 x10(9)/L 11/29/2023 9:58 AM CDT MKTO Basophils 0.03 0.01 - 0.08 x10(9)/L 11/29/2023 9:58 AM CDT MKTO Blood (Blood, Venous) 11/29/2023 8:21 AM CDT 11/29/2023 9:47 AM CDT Leonel Roman, Ch.B. LAB BLOOD ADD-ON [facility] [address] [place] [address], [address] [address] * (ABNORMAL) Glucose, POCT (11/28/2023 8:58 PM CDT) Glucose, POCT, B 155(H) 70 - 140 mg/dL 11/28/2023 8:58 PM CDT MKTO Blood 11/28/2023 8:58 PM CDT 11/28/2023 9:24 PM CDT Generic [facility] LAB POCT ORDERABLES- MANUAL [facility] [address] [place] [address], [address] [address] * Glucose, POCT (11/28/2023 4:41 PM CDT) Glucose, POCT, B 110 70 - 140 mg/dL 11/28/2023 4:41 PM CDT MKTO Blood 11/28/2023 4:41 PM CDT 11/28/2023 4:54 PM CDT Generic [facility] LAB POCT ORDERABLES- MANUAL [facility] [address] [place] [address], [address] [address] * (ABNORMAL) Glucose, POCT (11/28/2023 11:35 AM CDT) Glucose, POCT, B 276(H) 70 - 140 mg/dL 11/28/2023 11:35 AM CDT MKTO Blood 11/28/2023 11:3 5 AM CDT 11/28/2023 11:52 AM CDT Generic [facility] POCT ORDERABLES- MANUAL [facility] [address] [place] [address], [facility] MKTO [facility] [place] [address] [place] [address] * (ABNORMAL) CBC with Differential, Blood (11/28/2023 7:30 AM CDT) Hemoglobin 11.0(L) 11.6 - 15.0 g/dL 11/28/2023 8:05 AM CDT MKTO Hematocrit 36.7 35.5 - 44.9 % 11/28/2023 8:05 AM CDT MKTO Erythrocytes 4.57 3.92 - 5.13 x10(12)/L 11/28/2023 8:05 AM CDT MKTO MCV 80.3 78.2 - 97.9 fL 11/28/2023 8:05 AM CDT MKTO RBC Distrib Width 24.5(H) 12.2 - 16.1 % 11/28/2023 8:05 AM CDT MKTO Platelet Count 160 157 - 371 x10(9)/L 11/28/2023 8:05 AM CDT MKTO Leukocytes 5.5 3.4 - 9.6 x10(9)/L 11/28/2023 8:05 AM CDT MKTO Neutrophils 3.74 1.56 - 6.45 x10(9)/L 11/28/2023 8:05 AM CDT MKTO Lymphocytes 0.93(L) 0.95 - 3.07 x10(9)/L 11/28/2023 8:05 AM CDT MKTO Monocytes 0.37 0.26 - 0.81 x10(9)/L 11/28/2023 8:05 AM CDT MKTO Eosinophils 0.37 0.03 - 0.48 x10(9)/L 11/28/2023 8:05 AM CDT MKTO Basophils 0.04 0.01 - 0.08 x10(9)/L 11/28/2023 8:05 AM CDT MKTO Blood (Blood, Venous) 11/28/2023 7:30 AM CDT 11/28/2023 7:43 AM CDT Leonel Roman, Ch.B. LAB BLOOD ADD-ON [facility] [address] [place] [address] * Magnesium (11/28/2023 7:29 AM CDT) Magnesium, P 2.3 1.7 - 2.3 mg/dL 11/28/2023 8:10 AM CDT MKTO Blood (Blood, Venous) 11/28/2023 7:29 AM CDT 11/28/2023 7:46 AM CDT Leonel Roman, Ch.B. LAB BLOOD ADD-ON Performing Organization Address City/[facility] Co de Phone Number [facility] [address] [place] [address], [place] [address] * (ABNORMAL) Basic Metabolic Panel (11/28/2023 7:29 AM CDT) Potassium, P 4.6 3.6 - 5.2 mmol/L 11/28/2023 8:10 AM CDT MKTO Sodium, P 138 135 - 145 mmol/L 11/28/2023 8:10 AM CDT MKTO Chloride, P 99 98 - 107 mmol/L 11/28/2023 8:10 AM CDT MKTO Bicarbonate, P 24 22 - 29 mmol/L 11/28/2023 8:10 AM CDT MKTO Anion Gap, P 15 7 - 15 11/28/2023 8:10 AM CDT MKTO BUN (Blood Urea Nitrogen), P 22(H) 6 - 21 mg/dL 11/28/2023 8:10 AM CDT MKTO Creatinine 0.61 0.59 - 1.04 mg/dL 11/28/2023 8:10 AM CDT MKTO Estimated GFR (eGFR) >90 >=60 mL/min/BSA 11/28/2023 8:10 AM CDT MKTO Comment: Estimated GFR calculated using the 2020 CKD_EPI creatinine equation. Calcium, Total, P 9.1 8.8 - 10.2 mg/dL 11/28/2023 8:10 AM CDT MKTO Glucose, P 198(H) 70 - 140 mg/dL 11/28/2023 8:10 AM CDT MKTO Blood (Blood, Venous) 11/28/2023 7:29 AM CDT 11/28/2023 7:46 AM CDT Leonel Roman, Ch.B. LAB BLOOD ADD-ON [facility] [address] [place] [address], [facility] MKTO [facility] [address] * ECG 12 Lead (11/27/2023 11:48 PM CDT) Ventricular Rate ECG/Min 104 BPM MUSE QRSD Interval 96 ms MUSE QT Interval 386 ms MUSE QTC Interval 507 ms MUSE R [place] 7 degrees MUSE T Wave [place] 46 degrees MUSE 11/27/2023 11:4 8 PM [...] M.D. ECG ORDERABL ES MUSE NA * Magnesium (11/27/2023 11:45 PM CDT) Magnesium, P 2.1 1.7 - 2.3 mg/dL 11/28/2023 12:31 AM CDT MKTO Blood (Blood, Venous) 11/27/2023 11:45 PM CDT 11/28/2023 12:08 AM CDT Maryse Barraza M.D. LAB BLOOD AD D-ON [facility] [place] [address], [facility] MKTO [facility] [place] [address] [place] [address] * (ABNORMAL) Basic Metabolic Panel (11/27/2023 11:45 PM CDT) Potassium, P 4.7 3.6 - 5.2 mmol/L 11/28/2023 12:31 AM CDT MKTO Sodium, P 135 135 - 145 mmol/L 11/28/2023 12:31 AM CDT MKTO Chloride, P 98 98 - 107 mmol/L 11/28/2023 12:31 AM CDT MKTO Bicarbonate, P 24 22 - 29 mmol/L 11/28/2023 12:31 AM CDT MKTO Anion Gap, P 13 7 - 15 11/28/2023 12:31 AM CDT MKTO BUN (Blood Urea Nitrogen), P 26(H) 6 - 21 mg/dL 11/28/2023 12:31 AM CDT MKTO Creatinine 0.72 0.59 - 1.04 mg/dL 11/28/2023 12:31 AM CDT MKTO Estimated GFR (eGFR) >90 >=60 mL/min/BSA 11/28/2023 12:31 AM CDT MKTO Comment: Estimated GFR calculated using the 2020 CKD_EPI creatinine equation. Calcium, Total, P 8.9 8.8 - 10.2 mg/dL 11/28/2023 12:31 AM CDT MKTO Glucose, P 233(H) 70 - 140 mg/dL 11/28/2023 12:31 AM CDT MKTO Blood (Blood, Venous) 11/27/2023 11:45 PM CDT 11/28/2023 12:08 AM CDT Maryse Barraza M.D. LAB BLOOD AD D-ON [facility] [address] [place] [address], [address] [address] * (ABNORMAL) Glucose, POCT (11/27/2023 8:08 PM CDT) Glucose, POCT, B 201(H) 70 - 140 mg/dL 11/27/2023 8:08 PM CDT MKTO Blood 11/27/2023 8:08 PM CDT 11/27/2023 8:29 PM CDT Generic [facility] POCT ORDERABLES- MANUAL Performing Organization Address City/[facility]/ZIP Co de Phone Number [facility] [address] [place] [address], [address] [address] * Glucose, POCT (11/27/2023 4:05 PM CDT) Glucose, POCT, B 129 70 - 140 mg/dL 11/27/2023 4:05 PM CDT MKTO Blood 11/27/2023 4:05 PM CDT 11/27/2023 6:13 PM CDT Generic [facility] POCT ORDERABLES- MANUAL [facility] [address] [place] [address], [address] [address] * (ABNORMAL) Glucose, POCT (11/27/2023 11:20 AM CDT) Glucose, POCT, B 241(H) 70 - 140 mg/dL 11/27/2023 11:20 AM CDT MKTO Blood 11/27/2023 11:2 0 AM CDT 11/27/2023 11:27 AM CDT Generic [facility] POCT ORDERABLES- MANUAL [facility] [address] [place] [address], [facility] MKTO [facility] [place] [address] [place] [address] * (ABNORMAL) Basic Metabolic Panel (11/27/2023 7:34 AM CDT) Potassium, P 4.5 3.6 - 5.2 mmol/L 11/27/2023 8:06 AM CDT MKTO Sodium, P 139 135 - 145 mmol/L 11/27/2023 8:06 AM CDT MKTO Chloride, P 101 98 - 107 mmol/L 11/27/2023 8:06 AM CDT MKTO Bicarbonate, P 27 22 - 29 mmol/L 11/27/2023 8:06 AM CDT MKTO Anion Gap, P 11 7 - 15 11/27/2023 8:06 AM CDT MKTO BUN (Blood Urea Nitrogen), P 16 6 - 21 mg/dL 11/27/2023 8:06 AM CDT MKTO Creatinine 0.60 0.59 - 1.04 mg/dL 11/27/2023 8:06 AM CDT MKTO Estimated GFR (eGFR) >90 >=60 mL/min/BSA 11/27/2023 8:06 AM CDT MKTO Comment: Estimated GFR calculated using the 2020 CKD_EPI creatinine equation. Calcium, Total, P 9.0 8.8 - 10.2 mg/dL 11/27/2023 8:06 AM CDT MKTO Glucose, P 146(H) 70 - 140 mg/dL 11/27/2023 8:06 AM CDT MKTO Blood (Blood, Venous) 11/27/2023 7:34 AM CDT 11/27/2023 7:39 AM CDT Leonel Roman, BStephany LAB BLOOD ADD-ON [facility] [address] [place] [address], [facility] MKTO [facility] [place] [address] [place] [address] * (ABNORMAL) CBC with Differential, Blood (11/27/2023 7:34 AM CDT) Hemoglobin 10.6(L) 11.6 - 15.0 g/dL 11/27/2023 7:52 AM CDT MKTO Hematocrit 36.0 35.5 - 44.9 % 11/27/2023 7:52 AM CDT MKTO Erythrocytes 4.54 3.92 - 5.13 x10(12)/L 11/27/2023 7:52 AM CDT MKTO MCV 79.3 78.2 - 97.9 fL 11/27/2023 7:52 AM CDT MKTO RBC Distrib Width 23.9(H) 12.2 - 16.1 % 11/27/2023 7:52 AM CDT MKTO Platelet Count 153(L) 157 - 371 x10(9)/L 11/27/2023 7:52 AM CDT MKTO Leukocytes 5.1 3.4 - 9.6 x10(9)/L 11/27/2023 7:52 AM CDT MKTO Neutrophils 3.43 1.56 - 6.45 x10(9)/L 11/27/2023 7:52 AM CDT MKTO Lymphocytes 0.81(L) 0.95 - 3.07 x10(9)/L 11/27/2023 7:52 AM CDT MKTO Monocytes 0.41 0.26 - 0.81 x10(9)/L 11/27/2023 7:52 AM CDT MKTO Eosinophils 0.42 0.03 - 0.48 x10(9)/L 11/27/2023 7:52 AM CDT MKTO Basophils 0.03 0.01 - 0.08 x10(9)/L 11/27/2023 7:52 AM CDT MKTO Blood (Blood, Venous) 11/27/2023 7:34 AM CDT 11/27/2023 7:39 AM CDT Leonel Roman, ChStephanyB. LAB BLOOD ADD-ON [facility] [address] [place] [address], [place] [address] * Glucose, POCT (11/26/2023 8:30 PM CDT) Glucose, POCT, B 126 70 - 140 mg/dL 11/26/2023 8:30 PM CDT MKTO Blood 11/26/2023 8:30 PM CDT 11/26/2023 9:03 PM CDT Generic [facility] POCT ORDERABLES- MANUAL Performing Organization Address City/[facility]/ZIP Co de Phone Number [facility] [address] [place] [address], [address] [address] * (ABNORMAL) Glucose, POCT (11/26/2023 5:01 PM CDT) Glucose, POCT, B 203(H) 70 - 140 mg/dL 11/26/2023 5:01 PM CDT MKTO Blood 11/26/2023 5:01 PM CDT 11/26/2023 5:09 PM CDT Generic [facility] POCT ORDERABLES- MANUAL Performing Organization Address City/[facility]/ZIP Co de Phone Number [facility] [address] [place] [address], [place] [address] * (ABNORMAL) Glucose, POCT (11/26/2023 11:33 AM CDT) Glucose, POCT, B 179(H) 70 - 140 mg/dL 11/26/2023 11:33 AM CDT MKTO Blood 11/26/2023 11:3 3 AM CDT 11/26/2023 11:41 AM CDT Generic [facility] POCT ORDERABLES- MANUAL [facility] [place] [address], [facility] [facility] [place] [address] [place] [address] * (ABNORMAL) Basic Metabolic Panel (11/26/2023 6:57 AM CDT) Potassium, P 4.2 3.6 - 5.2 mmol/L 11/26/2023 7:50 AM CDT MKTO Sodium, P 136 135 - 145 mmol/L 11/26/2023 7:50 AM CDT MKTO Chloride, P 100 98 - 107 mmol/L 11/26/2023 7:50 AM CDT MKTO Bicarbonate, P 23 22 - 29 mmol/L 11/26/2023 7:50 AM CDT MKTO Anion Gap, P 13 7 - 15 11/26/2023 7:50 AM CDT MKTO BUN (Blood Urea Nitrogen), P 16 6 - 21 mg/dL 11/26/2023 7:50 AM CDT MKTO Creatinine 0.50(L) 0.59 - 1.04 mg/dL 11/26/2023 7:50 AM CDT MKTO Estimated GFR (eGFR) >90 >=60 mL/min/BSA 11/26/2023 7:50 AM CDT MKTO Comment: Estimated GFR calculated using the 2020 CKD_EPI creatinine equation. Calcium, Total, P 8.7(L) 8.8 - 10.2 mg/dL 11/26/2023 7:50 AM CDT MKTO Glucose, P 151(H) 70 - 140 mg/dL 11/26/2023 7:50 AM CDT MKTO Blood (Blood, Venous) 11/26/2023 6:57 AM CDT 11/26/2023 7:22 AM CDT Leonel Roman Ch.B. LAB BLOOD ADD-ON [facility] [address] [place] [address], [facility] MKTO [facility] [place] [address] [place] [address] * (ABNORMAL) CBC with Differential, Blood (11/26/2023 6:57 AM CDT) Hemoglobin 10.2(L) 11.6 - 15.0 g/dL 11/26/2023 7:35 AM CDT MKTO Hematocrit 33.9(L) 35.5 - 44.9 % 11/26/2023 7:35 AM CDT MKTO Erythrocytes 4.30 3.92 - 5.13 x10(12)/L 11/26/2023 7:35 AM CDT MKTO MCV 78.8 78.2 - 97.9 fL 11/26/2023 7:35 AM CDT MKTO RBC Distrib Width 23.6(H) 12.2 - 16.1 % 11/26/2023 7:35 AM CDT MKTO Platelet Count 157 157 - 371 x10(9)/L 11/26/2023 7:35 AM CDT MKTO Leukocytes 5.3 3.4 - 9.6 x10(9)/L 11/26/2023 7:35 AM CDT MKTO Neutrophils 3.48 1.56 - 6.45 x10(9)/L 11/26/2023 7:35 AM CDT MKTO Lymphocytes 0.97 0.95 - 3.07 x10(9)/L 11/26/2023 7:35 AM CDT MKTO Monocytes 0.38 0.26 - 0.81 x10(9)/L 11/26/2023 7:35 AM CDT MKTO Eosinophils 0.44 0.03 - 0.48 x10(9)/L 11/26/2023 7:35 AM CDT MKTO Basophils 0.06 0.01 - 0.08 x10(9)/L 11/26/2023 7:35 AM CDT MKTO Blood (Blood, Venous) 11/26/2023 6:57 AM CDT 11/26/2023 7:22 AM CDT Leonel Roman, ChStephanyB. LAB BLOOD ADD-ON [facility] [address] [place] [address], [address] [address] * (ABNORMAL) Glucose, POCT (11/26/2023 6:23 AM CDT) Glucose, POCT, B 177(H) 70 - 140 mg/dL 11/26/2023 6:23 AM CDT MKTO Blood 11/26/2023 6:23 AM CDT 11/26/2023 6:36 AM CDT Generic [facility] POCT ORDERABLES- MANUAL Performing Organization Address City/[facility]/ZIP Co de Phone Number [facility] [address] [place] [address], [address] [address] * (ABNORMAL) Glucose, POCT (11/25/2023 8:15 PM CDT) Glucose, POCT, B 141(H) 70 - 140 mg/dL 11/25/2023 8:15 PM CDT MKTO Blood 11/25/2023 8:15 PM CDT 11/25/2023 8:30 PM CDT Generic [facility] POCT ORDERABLES- MANUAL [facility] [place] [address], [place] [address] [place] [address] * (ABNORMAL) Glucose, POCT (11/25/2023 4:21 PM CDT) Glucose, POCT, B 159(H) 70 - 140 mg/dL 11/25/2023 4:21 PM CDT [facility] Blood 11/25/2023 4:21 PM CDT 11/25/2023 4:30 PM CDT Generic [facility] POCT ORDERABLES- MANUAL [facility] [address] [place] [address], [facility] [place] [address] * (TTE) 2D ECHO DOPPLER COLOR AND CONTRAST (11/25/2023 2:54 PM CDT) [facility] Ejection Fraction 56 MC CV EIMS Sinus [...] per Echocardiography Contrast Administration Protocol Reference Document [id number] Rev 09/12/2021. Patient met an inclusion criterion [...] administered per EchocardiographyContrast Administration Protocol Reference Document [id number] Rev09/12/2021. Patient met an inclusion criterion and did not havecontraindications in screening sections. For the complete report, see the Order-Level Documents. Etelvina Beard APRN, C.N.P., D.N.P. CV ECHO PROCEDURES * (ABNORMAL) Glucose, POCT (11/25/2023 11:34 AM CDT) Glucose, POCT, B 148(H) 70 - 140 mg/dL 11/25/2023 11:34 AM CDT [facility] Blood 11/25/2023 11:3 4 AM CDT 11/25/2023 4:30 PM CDT [facility] POCT ORDERABLES- MANUAL Performing Organization Address City/[facility]/ZIP Co de Phone Number [facility] [address] [place] [address], [facility] [place][note 2] [address] [place] [address] * (ABNORMAL) Phosphorus Inorganic (11/25/2023 10:17 AM CDT) Phosphorus (Inorganic), P 5.0(H) 2.5 - 4.5 mg/dL 11/25/2023 10:42 AM CDT [facility] Blood (Blood, Venous) 11/25/2023 10:17 AM CDT 11/25/2023 10:22 AM CDT Mil Wiggins M.D. LAB BLOOD ADD-ON Performing Organization Address City/[facility]/ZIP Co de Phone Number [facility] [address] [place] [address], [facility] [place][note 2] [address] [place] [address] * Magnesium (11/25/2023 10:17 AM CDT) Magnesium, P 1.9 1.7 - 2.3 mg/dL 11/25/2023 10:42 AM CDT [facility] Blood (Blood, Venous) 11/25/2023 10:17 AM CDT 11/25/2023 10:22 AM CDT Mil Wiggins M.D. LAB BLOOD ADD-ON [facility] [address] [place] [address], [address] [address] * (ABNORMAL) Comprehensive Metabolic Panel (11/25/2023 10:17 AM CDT) Potassium, P 3.9 3.6 - 5.2 mmol/L [...] M.D. LAB BLOOD ADD-ON Performing Organization Address City/[facility]/ZIP Co de Phone Number [facility] [address] [place] [address], [place] [address] * (ABNORMAL) CBC without Differential (11/25/2023 10:17 [...] CDT Mil Wiggins M.D. LAB BLOOD ADD-ON [facility] [address] [place] [id number], [address] [address] * (ABNORMAL) Glucose, POCT (11/25/2023 8:15 AM CDT) Glucose, POCT, B 148(H) 70 - 140 mg/dL 11/25/2023 8:15 AM CDT CECILIA Blood 11/25/2023 8:15 AM CDT 11/25/2023 8:26 AM CDT Generic [facility] LAB POCT ORDERABLES- MANUAL [facility] [address] [place] [id number], [facility] [address] [place] [id number] documented in this encounter Visit Diagnoses Diagnosis Atrial Fibrillation Unspecified (HCC)- Primary Atrial Fibrillation Unspecified (HCC) documented in this encounter Admitting Diagnoses Diagnosis Atrial Fibrillation Unspecified (HCC) documented in this encounter Administered Medications Active Administered Medications - up to 3 most recent administrations Medication Order MAR Action Action Date Dose Rate Site acetaminophen tablet 1,000 mg (TylenoL) 1,000 mg, oral, Every 6 hours PRN, mild pain or score 1-3 of 10, Starting on Thu11/25/23 at 0059 Given 11/30/2023 5:21 AM CDT 1,000 mg Given 11/29/2023 8:20 PM CDT 1,000 mg Given 11/29/2023 2:12 PM CDT 1,000 mg ALPRAZolam tablet 0.5 mg (Xanax) 0.5 mg, oral, 2 times daily PRN, anxiety, Starting on Thu11/25/23 at 0059 Given 11/29/2023 7:20 PM CDT 0.5 mg Given 11/28/2023 9:05 PM CDT 0.5 mg Given 11/28/2023 9:05 AM CDT 0.5 mg alum-mag hydroxide-simeth 200-200-20 mg/5 mL suspension 30 mL (Maalox) 30 mL, oral, Every 4 hours PRN, indigestion, heartburn, cramping, Starting on Thu11/25/23 at 0202 apixaban tablet 5 mg (Eliquis) 5 mg, oral, 2 times daily, First dose (after last modification) on Thu11/25/23 at 0215 Given 11/29/2023 8:06 PM CDT 5 mg Given 11/29/2023 9:00 AM CDT 5 mg Given 11/28/2023 8:55 PM CDT 5 mg atorvastatin tablet 40 mg (Lipitor) 40 mg, oral, Daily at bedtime, First dose (after last modification) on Thu11/25/23 at 0215 Given 11/29/2023 8:06 PM CDT 40 mg Given 11/28/2023 8:55 PM CDT 40 mg Given 11/27/2023 8:00 PM CDT 40 mg busPIRone tablet 10 mg (BuSpar) 10 mg, oral, 2 times daily, First dose on Thu11/25/23 at 0900 Given 11/29/2023 8:06 PM CDT 10 mg Given 11/29/2023 9:00 AM CDT 10 mg Given 11/28/2023 8:55 PM CDT 10 mg digoxin tablet 125 mcg (Lanoxin) 125 mcg, oral, Daily, First dose on Thu11/28/23 at 1215 Given 11/29/2023 9:00 AM CDT 125 mcg Given 11/28/2023 12:47 PM CDT 125 mcg dilTIAZem CD 24 hr capsule 240 mg (Cardizem CD) 240 mg, oral, 2 times daily, First dose (after last modification) on Thu11/27/23 at 2100, Swallow whole. Do NOT crush, chew or open capsule. Given 11/29/2023 8:06 PM CDT 240 mg Given 11/29/2023 8:59 AM CDT 240 mg Given 11/28/2023 8:55 PM CDT 240 mg fluticasone furoate-vilanteroL 100-25 mcg/actuation inhaler 1 puff (Breo Ellipta) 1 puff, inhalation, Daily (RT), First dose on Thu11/25/23 at 0800, fluticasone/vilanterol diskus 100/25 mcg was interchanged for Budesonide/Formoterol 1. Hold device upright in right hand with rough edge. 2. Using left hand open lid (toward left) until click is heard. 3. Tilt inhaler flat so air entrainment vents & counter face up. 4. Inhale to full breath somewhat fast. 5. Hold breath up to 10 seconds. 6. Remove inhaler from mouth. 7. Close lid. Given 11/29/2023 9:11 AM CDT 1 puff Given 11/28/2023 10:43 AM CDT 1 puff Given 11/27/2023 8:51 AM CDT 1 puff folic acid tablet 1 mg 1 mg, oral, Daily, First dose (after last modification) on Thu11/25/23 at 0215 Given 11/29/2023 9:00 AM CDT 1 mg Given 11/28/2023 9:05 AM CDT 1 mg Given 11/27/2023 8:51 AM CDT 1 mg hydrocortisone 1 % ointment topical, 2 times daily PRN, irritation, Starting on Thu11/25/23 at 0136 Given 11/28/2023 1:47 PM CDT 2 g Given 11/26/2023 12:38 PM CDT HYDROmorphone tablet 2 mg (Dilaudid) 2 mg, oral, Every 4 hours PRN, severe pain or score 7-10 of 10, Starting on Thu11/25/23 at 1324, Does patient have renal impairment, frailty, or advanced age (avoid morphine) and unable to take oxycodone? No, Did the patient fail other oral opioids during hospitalization? Yes, Does the patient have documented allergies to oxycodone and/or morphine? No, Is the patient on hydromorphone chronically for pain? Yes Given 11/30/2023 6:53 AM CDT 2 mg Given 11/30/2023 2:51 AM CDT 2 mg Given 11/29/2023 10:06 PM CDT 2 mg insulin aspart U-100 injection 0-7 Units (NovoLOG FlexPen) 0-7 Units, subcutaneous, 3 times daily, First dose on Thu11/25/23 at 0800, Insulin Scale: Mild Correction Scale, 180 - 219: 2 units, 220 - 259: 3 units, 260 - 299: 4 units, 300 - 339: 5 units, 340 - 379: 6 units, 380 - 399: 7 units, Greater than 399: Call service writing Insulin orders Given 11/29/2023 5:55 PM CDT 3 Units Left Upper Arm (Back ) Given 11/28/2023 12:52 PM CDT 4 Units L eft Upper Abdomen Given 11/27/2023 11:34 AM CDT 3 Units L eft Lower Abdomen insulin aspart U-100 injection 0-7 Units (NovoLOG FlexPen) 0-7 Units, subcutaneous, Daily at bedtime, First dose on Thu11/25/23 at 2100, Insulin Scale: Modified Bedtime Correction Scale, 220-259: 3 units, 260-299: 4 units, 300-339: 5 units, 340-379: 6 units, 380-399: 7 units, Greater than 399: Call service writing insulin orders lidocaine 5 % 1 patch (Lidoderm) 1 patch, transdermal, Administer over 12 Hours, Daily, First dose on Thu11/25/23 at 0900, Remove after 12 hours. Medication Applied 11/29/2023 9:00 AM CDT 1 patch Lower Back Medication Applied 11/28/2023 9:07 AM CDT 1 patch Lower Back Medication Applied 11/27/2023 8:51 AM CDT 1 patch Lower Back loratadine tablet 10 mg (Claritin) 10 mg, oral, Daily, First dose on Thu11/25/23 at 0900 Given 11/29/2023 9:00 AM CDT 10 mg Given 11/28/2023 9:05 AM CDT 10 mg Given 11/27/2023 8:53 AM CDT 10 mg jkttsuvbtrcv-omed-FI-Ca-minerals 400 mcg (folic acid) tablet 1 tablet 1 tablet, oral, Daily, First dose (after last modification) on Thu11/25/23 at 0215 Given 11/29/2023 9:00 AM CDT 1 tablet Given 11/28/2023 9:05 AM CDT 1 tablet Given 11/27/2023 8:53 AM CDT 1 tablet nicotine polacrilex gum 2 mg (Nicorette) 2 mg, buccal, Every 6 hours PRN, smoking cessation, Starting on Thu11/25/23 at 0114, Chew gum slowly until it tingles, then park it between your cheek and gum; when tingle disappears, Repeat process until most of the tingle is gone (about 30 min). Given 11/26/2023 5:18 AM CDT [address] tablet 40 mg (Protonix) 40 mg, oral, Daily before breakfast, First dose (after last modification) on Thu11/25/23 at 0215, pantoprazole 40 mg oral daily was interchanged for omeprazole 20 or 40 mg oral daily Swallow whole. Do NOT crush, chew, or split tablet. Given 11/30/2023 6:21 AM CDT 40 mg Given 11/29/2023 9:39 AM CDT 40 mg Given 11/28/2023 6:15 AM CDT 40 mg polyethylene glycol powder packet 17 g (Miralax) 17 g, oral, Daily, First dose on Thu11/25/23 at 0900, Dissolve in 240 mLs (8 ounces) of water prior to giving. Avoid mixing with starch-based thickened liquids. Given 11/29/2023 9:00 AM CDT 17 g Given 11/28/2023 9:08 AM CDT 17 g Given 11/27/2023 8:54 AM CDT 17 g sertraline tablet 200 mg (Zoloft) 200 mg, oral, Daily, First dose on Thu11/25/23 at 0900 Given 11/29/2023 9:00 AM CDT 200 mg Given 11/28/2023 9:05 AM CDT 200 mg Given 11/27/2023 8:53 AM CDT 200 mg simethicone chewable tablet 160 mg 160 mg, oral, 4 times daily PRN, flatulence, Starting on Thu11/25/23 at 0138 Given 11/30/2023 5:55 AM CDT 160 mg Given 11/28/2023 9:22 AM CDT 160 mg Given 11/28/2023 12:15 AM CDT 160 mg sodium chloride 0.9 % injection 10 mL 10 mL, intravenous, As needed, line care, Starting on Thu11/25/23 at 1454, Prior to and following infusion and between multiple consecutive infusions: sodium chloride 0.9 % injection Given 11/25/2023 2:29 PM CDT 10 mL thiamine tablet 100 mg (Vitamin B-1) 100 mg, oral, Daily, First dose on Thu11/25/23 at 0900 Given 11/29/2023 9:00 AM CDT 100 mg Given 11/28/2023 9:05 AM CDT 100 mg Given 11/27/2023 8:51 AM CDT 100 mg torsemide tablet 40 mg (Demadex) 40 mg, oral, Daily, First dose on Thu11/25/23 at 0900 Given 11/29/2023 9:00 AM CDT 40 mg Given 11/28/2023 9:05 AM CDT 40 mg Given 11/27/2023 8:53 AM CDT 40 mg zolpidem tablet 5 mg (Ambien) 5 mg, oral, Daily at bedtime, First dose on Thu11/25/23 at 2100 Given 11/29/2023 8:06 PM CDT 5 mg Given 11/28/2023 8:55 PM CDT 5 mg Given 11/27/2023 8:00 PM CDT 5 mg Inactive Administered Medications - up to 3 most recent administrations Medication Order MAR Action Action Date Dose Rate Site dilTIAZem CD 24 hr capsule 120 mg (Cardizem CD) 120 mg, oral, Once, On Thu11/27/23 at 1330, For 1 dose, Swallow whole. Do NOT crush, chew or open capsule. Given 11/27/2023 1:36 PM CDT 120 mg dilTIAZem CD 24 hr capsule 180 mg (Cardizem CD) 180 mg, oral, 2 times daily, First dose (after last modification) on Brenda 11/26/23 at 0900, Swallow whole. Do NOT crush, chew or open capsule. Given 11/27/2023 8:51 AM CDT 180 mg Given 11/26/2023 9:12 PM CDT 180 mg Given 11/26/2023 9:33 AM CDT 180 mg dilTIAZem in dextrose 5 % 125 mg/125 mL (1 mg/mL) infusion (Cardizem) 10 mg/hr (10 mL/hr), intravenous, Continuous, Starting on Thu11/25/23 at 0115, Type: Titrate, Initiate at: Other, Rate: 10, Titrate at: 2.5 mg/hr every 15 min., Goal: HR 60-100 New Bag 11/25/2023 11:39 AM CDT 10 mg/hr 10 mL/hr Rate/Dose Verify 11/25/2023 3:57 AM CDT 10 mg/hr 10 mL/h r New Bag 11/25/2023 2:29 AM CDT 10 mg/hr 10 mL/hr dilTIAZem in dextrose 5 % 125 mg/125 mL (1 mg/mL) infusion (Cardizem) 2.5-15 mg/hr (2.5-15 mL/hr), intravenous, Continuous, Starting on Thu11/25/23 at 1515, Type: Titrate, Initiate at: Other, Rate: 10-15, Titrate at: 2.5 mg/hr every 15 min., Goal: HR 60-100 New Bag 11/26/2023 7:57 AM CDT 12.5 mg/hr 12.5 mL/h r New Bag 11/25/2023 10:32 PM CDT 12.5 mg/hr 12.5 mL/hr Rate/Dose Change 11/25/2023 9:14 PM CDT 12.5 mg/hr 12.5 mL /hr dilTIAZem in dextrose 5 % 125 mg/125 mL (1 mg/mL) infusion (Cardizem) 2.5-15 mg/hr (2.5-15 mL/hr), intravenous, Continuous, Starting on Brenda 11/26/23 at 0845, Wean off once oral diltiazem is given, Type: Titrate, Initiate at: Other, Rate: 10-15, Titrate at: 2.5 mg/hr every 15 min., Goal: HR 60-100 Rate/Dose Change 11/26/2023 11:00 AM CDT 7.5 mg/hr 7.5 mL/hr diphenhydrAMINE capsule 25 mg (BenadryL) 25 mg, oral, Once, On 11/29/23 at 0245, For 1 dose Given 11/29/2023 2:27 AM CDT 25 mg diphenhydrAMINE capsule 25 mg (BenadryL) 25 mg, oral, Once, On 11/29/23 at 1130, For 1 dose Given 11/29/2023 5:54 PM CDT 25 mg HYDROmorphone tablet 1 mg (Dilaudid) 1 mg, oral, Every 6 hours PRN, severe pain or score 7-10 of 10, Starting on Thu11/25/23 at 1127, Does patient have renal impairment, frailty, or advanced age (avoid morphine) and unable to take oxycodone? No, Did the patient fail other oral opioids during hospitalization? Yes, Does the patient have documented allergies to oxycodone and/or morphine? No, Is the patient on hydromorphone chronically for pain? Yes Given 11/25/2023 11:39 AM CDT 1 mg HYDROmorphone tablet 4 mg (Dilaudid) 4 mg, oral, Once, On 11/28/23 at 1545, For 1 dose, Does patient have renal impairment, frailty, or advanced age (avoid morphine) and unable to take oxycodone? No, Did the patient fail other oral opioids during hospitalization? Yes, Does the patient have documented allergies to oxycodone and/or morphine? No, Is the patient on hydromorphone chronically for pain? Yes Given 11/28/2023 3:34 PM CDT 4 mg ketorolac injection 15 mg (ToradoL) 15 mg, intravenous, Every 6 hours PRN, moderate pain or score 4-6 of 10, Starting on Thu11/25/23 at 0151, For 5 days, Adult IV push rate: Over 15 seconds. Peds IV push rate: Over 1 minute. Doses > 15 mg IV/IM are discouraged due to lack of additional analgesic benefit. Given 11/29/2023 11:39 PM CDT 15 mg Given 11/29/2023 3:35 PM CDT 15 mg Given 11/29/2023 9:29 AM CDT 15 mg perflutren lipid microspheres injection (Definity) intravenous, Once in imaging, contrast, Starting on Thu11/25/23 at 1454, For 1 dose, Intraprocedure - Diagnostic, See protocol. Given 11/25/2023 2:29 PM CDT 1 .5 mL rOPINIRole tablet 0.5 mg (Requip) 0.5 mg, oral, Daily, First dose on Thu11/25/23 at 0900 Given 11/25/2023 8:16 AM CDT 0.5 mg traMADoL tablet 50 mg (Ultram) 50 mg, oral, Once, On Thu11/25/23 at 0515, For 1 dose, Restriction Criteria (Pharmacy will review and approve if criteria met): Use in adults 18 years and older Given 11/25/2023 4:54 AM CDT 50 mg documented in this encounter Active and Recently Administered Medications Times are shown in CDT. Scheduled Medication Order 11/28/2023 11/29/2023 11/30/2023 apixaban tablet 5 mg (Eliquis) 5 mg, oral, 2 times daily, First dose (after last modification) on Thu11/25/23 at 0215 0905 (Given - Provider: Raquel Kim RStephanyN.)2054 (Given - Provider: Betty Morales R.N.) 09 (Given - Provider: Yulissa Darden R.N.)2005 (Given - Provider: Danica Guzman R.N.) 899 (Due)2099 (Due) atorvastatin tablet 40 mg (Lipitor) 40 mg, oral, Daily at bedtime, First dose (after last modification) on Thu11/25/23 at 0215 2054 (Given - Provider: Betty Morales R.N.) 2005 (Given - Provider: Danica Guzman R.N.) 2099 (Due) busPIRone tablet 10 mg (BuSpar) 10 mg, oral, 2 times daily, First dose on Thu11/25/23 at 0900 09 (Given - Provider: Raquel Kim R.N.)2054 (Given - Provider: Betty Morales R.N.) 09 (Given - Provider: Yulissa Darden R.N.)2005 (Given - Provider: Danica Guzman R.N.) 899 (Due)2099 (Due) digoxin tablet 125 mcg (Lanoxin) 125 mcg, oral, Daily, First dose on Thu11/28/23 at 1215 1247 (Given - Provider: Raquel Kim R.N.) 899 (Given - Provider: Yulissa Darden R.N.) 899 (Due) dilTIAZem CD 24 hr capsule 240 mg (Cardizem CD) 240 mg, oral, 2 times daily, First dose (after last modification) on Thu11/27/23 at 2100, Swallow whole. Do NOT crush, chew or open capsule. 904 (Given - Provider: Raquel Kim R.N.)2054 (Given - Provider: Betty Morales R.N.) 0859 (Given - Provider: Yulissa Darden R.N.)2005 (Given - Provider: Danica Guzman R.N.) 899 (Due)2099 (Due) diphenhydrAMINE capsule 25 mg (BenadryL) (COMPLETED) 25 mg, oral, Once, On Thu11/29/23 at 0245, For 1 dose 0227 (Given - Provider: Betty Morales R.N.) diphenhydrAMINE capsule 25 mg (BenadryL) (COMPLETED) 25 mg, oral, Once, On 11/29/23 at 1130, For 1 dose 1754 (Given - Provider: Karie Terrell R.N.) fluticasone furoate-vilanteroL 100-25 mcg/actuation inhaler 1 puff (Breo Ellipta) 1 puff, inhalation, Daily (RT), First dose on Thu11/25/23 at 0800, fluticasone/vilanterol diskus 100/25 mcg was interchanged for Budesonide/Formoterol 1. Hold device upright in right hand with rough edge. 2. Using left hand open lid (toward left) until click is heard. 3. Tilt inhaler flat so air entrainment vents & counter face up. 4. Inhale to full breath somewhat fast. 5. Hold breath up to 10 seconds. 6. Remove inhaler from mouth. 7. Close lid. 1043 (Given - Provider: Raquel Kim R.N.) 0911 (Given - Provider: Yulissa Darden RStephanyNStephany) 0800 (Due) folic acid tablet 1 mg 1 mg, oral, Daily, First dose (after last modification) on Thu11/25/23 at 0215 0905 (Given - Provider: Raquel Kim R.N.) 0900 (Given - Provider: Yulissa Darden R.N.) 0900 (Due) HYDROmorphone tablet 4 mg (Dilaudid) (COMPLETED) 4 mg, oral, Once, On 11/28/23 at 1545, For 1 dose, Does patient have renal impairment, frailty, or advanced age (avoid morphine) and unable to take oxycodone? No, Did the patient fail other oral opioids during hospitalization? Yes, Does the patient have documented allergies to oxycodone and/or morphine? No, Is the patient on hydromorphone chronically for pain? Yes 1534 (Given - Provider: Raquel Kmi R.N.) insulin aspart U-100 injection 0-7 Units (NovoLOG FlexPen) 0-7 Units, subcutaneous, 3 times daily, First dose on Thu11/25/23 at 0800, Insulin Scale: Mild Correction Scale, 180 - 219: 2 units, 220 - 259: 3 units, 260 - 299: 4 units, 300 - 339: 5 units, 340 - 379: 6 units, 380 - 399: 7 units, Greater than 399: Call service writing Insulin orders 0704 (Not Given - Provider: Betty Morales R.N. - Reason: Order parameters not met)1252 (Given - Provider: Raquel Kim R.N. - Comment: [phone] (Not Given - Provider: Raquel Kim R.N. - Reason: Order parameters not met - Comment: [id number]) 0936 (Not Given - Provider: Karie Terrell R.N. - Reason: Order parameters not met)1249 (Not Given - Provider: Kate Morton R.N. - Reason: Order parameters not met - Comment: [phone] (Given - Provider: Karie Terrell R.N.) 0800 (Due)1200 (Due)1700 (Due) insulin aspart U-100 injection 0-7 Units (NovoLOG FlexPen) 0-7 Units, subcutaneous, Daily at bedtime, First dose on Thu11/25/23 at 2100, Insulin Scale: Modified Bedtime Correction Scale, 220-259: 3 units, 260-299: 4 units, 300-339: 5 units, 340-379: 6 units, 380-399: 7 units, Greater than 399: Call service writing insulin orders 2057 (Not Given - Provider: Betty Morales R.N. - Reason: Order parameters not met) 1999 (Not Given - Provider: Danica Guzman R.N. - Reason: Order parameters not met - Comment: BS 142) 2099 (Due) lidocaine 5 % 1 patch (Lidoderm) 1 patch, transdermal, Administer over 12 Hours, Daily, First dose on Thu11/25/23 at 0900, Remove after 12 hours. 09 (Medication Applied - Provider: Raquel Kim R.N.)2104 (Medication Removed - Provider: Betty Morales R.N.) 09 (Medication Applied - Provider: Yulissa Darden R.N.)2013 (Medication Removed - Provider: Danica Guzman R.N.) 0900 (Due) lisinopriL tablet 10 mg 10 mg, oral, Daily, First dose on Thu11/25/23 at 0900, On hold since Thu11/25/2023 at 0148 until manually unheld 899 (Dose Auto Held) 09 (Not Given - Provider: Sue Carr R.N., CCRN - Reason: See Provider Order) 09 (Dose Auto Held) loratadine tablet 10 mg (Claritin) 10 mg, oral, Daily, First dose on Thu11/25/23 at 0900 0905 (Given - Provider: Raquel Kim R.N.) 09 (Given - Provider: Yulissa Darden R.N.) 09 (Due) tmjorrytqtnz-rhna-FW-Ca- minerals 400 mcg (folic acid) tablet 1 tablet 1 tablet, oral, Daily, First dose (after last modification) on Thu11/25/23 at 0215 0905 (Given - Provider: Raquel Kim R.N.) 09 (Given - Provider: Yulissa Darden R.N.) 899 (Due) pantoprazole DR tablet 40 mg (Protonix) 40 mg, oral, Daily before breakfast, First dose (after last modification) on Thu11/25/23 at 0215, pantoprazole 40 mg oral daily was interchanged for omeprazole 20 or 40 mg oral daily Swallow whole. Do NOT crush, chew, or split tablet. 0615 (Given - Provider: Betty Morales R.N.) 0939 (Given - Provider: Karie Terrell R.N.) 0621 (Given - Provider: Danica Guzman RStephanyN.) polyethylene glycol powder packet 17 g (Miralax) 17 g, oral, Daily, First dose on Thu11/25/23 at 0900, Dissolve in 240 mLs (8 ounces) of water prior to giving. Avoid mixing with starch-based thickened liquids. 08 (Given - Provider: Raquel Kim R.N.) 09 (Given - Provider: Yulissa Darden R.N.) 09 (Due) sertraline tablet 200 mg (Zoloft) 200 mg, oral, Daily, First dose on Thu11/25/23 at 0900 09 (Given - Provider: Raquel Kim R.N.) 0900 (Given - Provider: Yulissa Darden R.N.) 09 (Due) thiamine tablet 100 mg (Vitamin B-1) 100 mg, oral, Daily, First dose on Thu11/25/23 at 0900 0905 (Given - Provider: Raquel Kim R.N.) 0900 (Given - Provider: Yulissa Darden R.N.) 09 (Due) torsemide tablet 40 mg (Demadex) 40 mg, oral, Daily, First dose on Thu11/25/23 at 0900 0905 (Given - Provider: Raquel Kim R.N.) 09 (Given - Provider: Yulissa Darden R.N.) 899 (Due) zolpidem tablet 5 mg (Ambien) 5 mg, oral, Daily at bedtime, First dose on Thu11/25/23 at 2100 2054 (Given - Provider: Betty Morales R.N.) 2005 (Given - Provider: Danica Guzman RStephanyN.) 2099 (Due) PRN Medication Order 11/28/2023 11/29/2023 11/30/2023 acetaminophen tablet 1,000 mg (TylenoL) 1,000 mg, oral, Every 6 hours PRN, mild pain or score 1-3 of 10, Starting on Thu11/25/23 at 0059 1349 (Given - Provider: Raquel Kim R.N.) 1412 (Given - Provider: Maximino Dangelo RStephanyNtSephany)2020 (Given - Provider: Danica Guzman R.N.) 0521 (Given - Provider: Barbara Steinberg RStephanyN.) albuterol nebulizer solution 2.5 mg 2.5 mg, nebulization, Every 8 hours PRN, shortness of breath, wheezing, Starting on Thu11/25/23 at 0137, Albuterol nebs were interchanged for albuterol/levalbuterol MDI (same frequency) ALPRAZolam tablet 0.5 mg (Xanax) 0.5 mg, oral, 2 times daily PRN, anxiety, Starting on Thu11/25/23 at 0059 0905 (Given - Provider: Raquel Kim R.N.)2105 (Given - Provider: Betty Morales R.N.) 1920 (Given - Provider: Danica Guzman R.N.) alum-mag hydroxide-simeth 200-200-20 mg/5 mL suspension 30 mL (Maalox) 30 mL, oral, Every 4 hours PRN, indigestion, heartburn, cramping, Starting on Thu11/25/23 at 0202 artificial saliva spray 1 Application (Mouth Kote) 1 Application, mouth/throat, As needed, dry mouth, Starting on Thu11/25/23 at 0138 hydrocortisone 1 % ointment topical, 2 times daily PRN, irritation, Starting on Thu11/25/23 at 0136 1347 (Given - Provider: Raquel Kim R.N.) HYDROmorphone tablet 2 mg (Dilaudid) 2 mg, oral, Every 4 hours PRN, severe pain or score 7-10 of 10, Starting on Thu11/25/23 at 1324, Does patient have renal impairment, frailty, or advanced age (avoid morphine) and unable to take oxycodone? No, Did the patient fail other oral opioids during hospitalization? Yes, Does the patient have documented allergies to oxycodone and/or morphine? No, Is the patient on hydromorphone chronically for pain? Yes 0016 (Given - Provider: Betty Morales R.N.)0600 (Given - Provider: Betty Morales R.N.)1105 (Given - Provider: Maximino Dangelo RStephanyN.)1933 (Given - Provider: Betty Morales R.N.)2345 (Given - Provider: Betty Morales R.N.) 0900 (Given - Provider: Yulissa Darden R.N.)1317 (Given - Provider: Kate Morton R.N.)1754 (Given - Provider: Karie Terrell R.N.)2206 (Given - Provider: Danica Guzman R.N.) 0251 (Given - Provider: Gabrielle Ann.Kevin.)0653 (Given - Provider: Gabrielle Ann.N.) ketoconazole 2 % shampoo (Nizoral) topical, As needed, dandruff, irritation, Starting on Thu11/25/23 at 0137, Allow 3 days between each shampoo. ketorolac injection 15 mg (ToradoL) () 15 mg, intravenous, Every 6 hours PRN, moderate pain or score 4-6 of 10, Starting on Thu11/25/23 at 0151, For 5 days, Adult IV push rate: Over 15 seconds. Peds IV push rate: Over 1 minute. Doses > 15 mg IV/IM are discouraged due to lack of additional analgesic benefit. 0600 (Given - Provider: Betty Morales R.N.)1247 (Given - Provider: Raquel Kim R.N.)1933 (Given - Provider: Betty Morales R.N.) 0154 (Given - Provider: Betty Morales R.N.)0929 (Given - Provider: Karie Terrell R.N.)1535 (Given - Provider: Karie Terrell R.N.)2339 (Given - Provider: Danica Guzman R.N.) nicotine polacrilex gum 2 mg (Nicorette) 2 mg, buccal, Every 6 hours PRN, smoking cessation, Starting on Thu11/25/23 at 0114, Chew gum slowly until it tingles, then park it between your cheek and gum; when tingle disappears, Repeat process until most of the tingle is gone (about 30 min). simethicone chewable tablet 160 mg 160 mg, oral, 4 times daily PRN, flatulence, Starting on Thu11/25/23 at 0138 0015 (Given - Provider: Betty Morales R.N.)0922 (Given - Provider: Raquel Kim R.N.) 0555 (Given - Provider: Danica Guzman R.N.) sodium chloride 0.9 % injection 10 mL 10 mL, intravenous, As needed, line care, Starting on Thu11/25/23 at 1454, Prior to and following infusion and between multiple consecutive infusions: sodium chloride 0.9 % injection documented in this encounter Additional Health Concerns Assessment Noted Time PHQ-9 Depression Total Score: 7 07/30/19 24 4:37 PM RN IMAGING documented as of this encounter Care Teams Residential Builder Relationship Specialty Start Date End Date Elsewhere, Pcp PCP - General Internal Medicine 08/18/23 documented as of this encounter
--- OUTSIDE RECORDS SUMMARY | 2023-11-30 08:35 | XMS_ITS | Encounter Summary ---
Author Organization [facility] Address [address] [place] [address] Care Team Providers Care Typesetting Machine Operator/Tender Name Role Phone Elsewhere, Pcp Primary Care Provider Unavailabl e Encounter Details Date Type Department Care Team (Latest Contact Info) Description 11/24/2023 Intake [facility] Social History Tobacco Use Types Packs/Day Years [...] your living situation today? I have a [facility] place to live 11/25/2023 Sex and [...] Total Score: 7 07/30/19 24 4:37 PM SALES SPECIAL AGENT documented as of this encounter Care Teams Typesetting Machine Operator/Tender Relationship Specialty Start Date End Date Elsewhere, Pcp PCP - General Internal Medicine 08/18/23 documented as of this encounter
--- OUTSIDE RECORDS SUMMARY | 2023-11-30 08:35 | XMS_ITS ---
Author Organization [facility] Address [address] [place] [id number] Care Team Providers Care Maintenance Shop Manager Name Role Phone Unavailable Unavailable Unavailable Surgery Details Not on file Complications Check Surgery Details section. Procedure Estimated Blood Loss Check Surgery Details section. Procedure Findings Check Surgery Details section. Procedure Specimens Taken Check Surgery Details section.
--- OUTSIDE RECORDS SUMMARY | 2023-11-30 08:35 | XMS_ITS | Encounter Summary ---
Author Organization [facility] Address [address] [place] [address] Care Team Providers Care Litigation Counsel Name Role Phone Elsewhere, Pcp Primary Care Provider Unavailabl e Reason for Visit * Reason Comments Chest Pain 63 yo presents for e rafal of left sided chest pain with radiation into back. Onset around 1200 today. Reports hx of afib with recent stays in [facility] ED for rate control. Was to be taking Metoprolol 150 mg but hasn't for at least 3 days because it makes her feel sick Encounter Details Date Type Department Care Team (Late st Contact Info) Description 11/24/2023 2:52 PM CDT - 11/24/2023 11:30 PM CDT [facility] [address] [place] [id number] Reuben Hodges, DStephanyO. [address] [place] [id number] Atrial Fibrillation Permanent (HCC) (Primary Dx); Tachycardia; Patient's Noncompliance With Other Medical Treatment And Regimen For Other Reason Discharge Disposition: Acute Care Hospital Social History Tobacco Use Types Packs/Day Years [...] Date Recorded Dental: Regular Dentist Unknown 08/03/19 Housing Stability Answer Date Recorded What is your living situation today? I have a [facility] place to live 11/25/2023 Sex and Gender Information Value Date Recorded Sex Assigned at Not on file Gender Identity Female 08/13/2017 10:05 AM CDT Sexual Orientation Not on file documented as of this encounter Last Filed Vital Signs Vital Sign Reading Time Taken Comments Blood Pressure 113/96 11/24/2023 11:15 PM CDT Pulse 90 11/24/2023 7:15 PM CDT Temperature 36.5 ??C (97.7 ??F) 11/24/2023 3:03 PM CD T Respiratory Rate 18 11/24/2023 11:15 PM CDT Oxygen Saturation 98% 11/24/2023 7:15 PM CDT Inhaled Oxygen Concentration - - Weight 91 kg (200 lb 9.9 oz) 11/24/2023 3:03 PM CDT Height - - Body Mass Index 36.69 11/10/2023 11:09 AM CDT documented in this encounter Medications at Time of Discharge Medication Sig Dispensed Refills Start Date End Date dilTIAZem CD (Cardizem CD) 180 mg 24 hr capsule Take 1 capsule (180 mg total) by mouth 2 (two) times a day. 60 capsule 3 11/26/2023 acetaminophen (TYLENOL) 500 mg tablet Take 1,000 mg by mouth every 6 (six) hours as needed. Take at 7:00 am, 12:00 pm, 5:00 pm, 10:00 pm [id number] 300 unit capsule Take 300 Units by mouth. 12/17/2020 11/25/2023 aluminum-magnesium hydroxide 200-200 mg/5 mL suspension Take 30 mL by mouth 3 (three) times a day with meals. Shake Well. 11/25/2023 apixaban (Eliquis) 5 mg tablet Take 5 mg by mouth 2 (two) times a day. atorvastatin (LIPITOR) 40 mg tablet Take 1 [...] ins. E11.65 NIDDM type II, controlled 06/06/2019 busPIRone (BUSPAR) 10 mg tablet Take 15 mg by mouth every 6 (six) hours as needed (anxiety). 07/06/2023 clobetasoL (Temovate) 0.05 % cream Apply 1 Application topically 2 (two) times a day as needed. Apply to dry feet cyanocobalamin (VITAMIN B12) 1,000 mcg tablet Take 1 tablet (1,000 mcg total) by mouth daily. 90 tablet 3 08/10/2023 diaper,brief,adult,di sposable misc Use daily as needed for incontinence. 32 each 08/13/2023 fluticasone propion-salmeteroL 250-50 mcg/dose diskus inhaler Inhale 1 puff 2 (two) times a day. 12/14/2020 fluticasone propionate (FLONASE) 50 mcg/actuation nasal spray Administer 1 spray into each nostril 2 (two) times a day. 16 g 11 07/30/2023 glycerin suppository Insert 2 g into the rectum daily as needed for constipation. haloperidoL (HALDOL) 1 mg tablet 1 mg 4 (four) times a day as needed. 01/30/2023 hydrocortisone (CORTIZONE) 1 % ointment Apply topically to hemorrhoid two times daily as needed ipratropium-albuterol (for_DUO-NEB) 0.5-2.5 mg/3 mL nebulizer solution Inhale 3 mL by nebulization 2 (two) times a day as needed for wheezing. Take at 7:00 am, 4:00 pm ketoconazole (NIZORAL) 2 % shampoo 1 Application as needed. 11/12/2021 lancets misc One touch delica lancets 33g Dispense item covered by pt ins. E11.9 NIDDM type II - Test 2 times per week 07/19/2017 lisinopril (PRINIVIL,ZESTRIL) 10 mg tablet Take 1 tablet (10 mg total) by mouth daily. 90 tablet 11 02/08/2019 loperamide (IMODIUM A-D) 2 mg capsule Take 2 mg by mouth 4 (four) times a day as needed. 01/30/2023 loratadine (CLARITIN) 10 mg tablet Take 1 tablet (10 mg total) by mouth daily. 90 tablet 3 08/13/2023 methocarbamoL (Robaxin) 500 mg tablet Take 500 mg by mouth 2 (two) times a day as needed for muscle spasms. metroNIDAZOLE (MetroCream) 0.75 % cream Apply 1 Application topically daily. Apply to face miscellaneous medical supply [facility] Length: calf Strength: 16-20 mmHg Circumference in cm: For calf: Ankle 12, Calf 18.5 , Ankle to calf length 12 . 03/15/2018 multivitamin (FLINTSTONES) chewable Take two daily mupirocin (Bactroban) 2 % ointment Apply 1 Application topically daily as needed. Apply to open sores on the body nebulizer accessories kit For home use. Length of need: 12 months 03/16/2018 nystatin (NYSTOP) 100,000 unit/gram powder Apply topically 2 (two) times a day as needed (rash/irritation). 30 g 11 08/05/2023 omeprazole (PriLOSEC) [address] capsule Take 20 mg by mouth every morning before breakfast. 04/13/2013 ondansetron ODT (ZOFRAN-ODT) 4 mg disintegrating tablet Dissolve 1 tablet (4 mg total) in the mouth every 8 (eight) hours as needed for nausea or vomiting. 10 tablet 08/13/2023 ONETOUCH DELICA LANCETS 33 gauge [facility] TEST 2 TIMES PER WEEK 3 07/19/2017 polyethylene glycol (for_MIRALAX) 17 gram powder packet Take 17 g by mouth daily. Mix in 4-8 ounces of water or juice and drink two times daily sennosides-docusate sodium (SENOKOT-S) 8.6-50 mg per tablet Take 1 tablet by mouth 2 (two) times a day. 09/28/2020 sertraline (for_ZOLOFT) 100 mg tablet Take [...] 11 08/12/2023 tacrolimus (PROTOPIC) 0.1 % ointment Apply 1 Application topically as directed. 1-2 times daily to feet for nerve itching 07/21/2023 torsemide (DEMADEX) 20 mg tablet Take 2 tablets (40 mg total) by mouth daily. 180 tablet 11 02/08/2019 triamcinolone (KENALOG) 0.1 % cream APPLY THIN [...] mg by mouth at bedtime. 1 04/14/2017 budesonide-formoterol (for_SYMBICORT) 80-4.5 mcg/actuation inhaler Inhale 2 puffs 2 (two) times a day. Rinse mouth with water after use to reduce aftertaste and incidence of candidiasis. Do not swallow. 11/25/2023 clindamycin (CLEOCIN) 150 mg capsule Take 600 mg by mouth daily as needed. 01/03/2021 11/25/2023 dextroamphetamine-amp hetamine (ADDERALL) 10 mg tablet Take 10 mg by mouth 2 (two) times a day. 11/25/2023 dilTIAZem CD (Cardizem CD) 120 mg 24 hr capsule Take 120 mg by mouth daily. 11/26/2023 diphenhydrAMINE (BENADRYL) 25 mg capsule Take 25 mg by mouth every 4 (four) hours as needed for itching. ergocalciferol (DRISDOL) 50,000 Unit capsule Take 50,000 Units by mouth over 168 hr. 01/23/2021 11/25/2023 haloperidoL (HALDOL) 0.5 mg tablet 08/10/2023 11/25/2023 Jantoven 3 mg tablet Please take as directed by your Anticoagulation Clinic. 15 tablet 08/27/2023 11/25/2023 magnesium hydroxide (magnesium hydroxide) 400 mg/5 mL suspension Take 30 mL by mouth at bedtime as needed (constipation). 11/25/2023 metFORMIN (GLUCOPHAGE) 500 mg tablet Take 500 mg by mouth. 01/21/20212023 metoprolol tartrate (LOPRESSOR) 50 mg tablet Take 1 tablet (50 mg total) by mouth 2 (two) times a day. 180 tablet 08/13/2023 11/26/2023 pregabalin (LYRICA) 100 mg capsule Take 1 capsule (100 mg total) by mouth 3 (three) times a day. Take at 7:00 am, 4:00 pm, 8:00 pm 90 capsule 11 02/07/2019 11/25/2023 rOPINIRole (REQUIP) 0.5 mg tablet Take by mouth daily. 07/08/20232023 saliva substitution (Biotene Dry Mouth Oral Rinse) mouthwash Take 15 mL by mouth every 6 (six) hours as needed. 12/14/2020 11/25/2023 terbinafine (LamISIL) 1 % cream 11/23/2019 11/25/2023 documented as of this encounter Procedure Notes * Reuben Hodges D.O. - 11/24/2023 11:30 PM CDTAssociated Order(s): Critical Care Procedure Critical Care Performed by: Reuben Hodges D.O. Authorized by: Reuben Hodges D.O. Critical care provider statement: Critical care total [...] or surrogate, discussing treatment issues with family orsurrogate, documenting in the patient chart, evaluation of patient's response to treatment, examination of patient, interpretation of cardiac output measurements, review of old charts, re-evaluation of patient's condition, pulse oximetry, ordering and review of laboratory studies, ordering and performing treatments and interventions and obtaining history from patient or surrogate Reuben Hodges D.O. 11/25/23 0917 documented in this encounter ED Notes * Reuben Hodges D.O. - 11/24/2023 3:37 PM CDT SUBJECTIVE CHIEF COMPLAINT / REASON FOR VISIT: Chest Pain (63 yo presents for eval of left sided chest pain with radiation into back. Onset [id number] today. Reports hx of afib with recent stays in [facility] ED for rate control. Was to be taking Metoprolol 150 mg but hasn't for at least 3 days because it makes her feel sick ) HISTORY OF PRESENT ILLNESS Brandee Brown is a 63 y.o. female who presents to the Emergency Department with a chief complaint of near-syncope, chest pain for the past 6 months, and decreasing her metoprolol due to concerns of not feeling well and recent emergency department visit outside hospital system for a heart rate in the 30s. The patient also notes chronic low back pain and previously had been on Dilaudid and was transitioned over to Suboxone. The patient notes that her use of Suboxone is still affectingher several weeks later. The patient notes that her primary care is currently an outside hospital system but wishes to establish with Cardiology and primary care within the [facility]. The patient notes that her heart always runs fast. Patient recently was transitioned off of warfarin to Eliquisat last admission. History provided by: Patient and medical records REVIEW OF SYSTEMS Constitutional: Negative for fever. Respiratory: Negative for cough and shortness of breath. Cardiovascular: Positive for chest pain. Gastrointestinal: Negative for vomiting. Genitourinary: Negative for dysuria. Musculoskeletal: Positive for back pain. Skin: Negative for rash. Neurological: Negative for headaches. Psychiatric/Behavioral: Negative for confusion. ALLERGIES / CONTRAINDICATIONS Reviewed in medical record. CURRENT MEDICATIONS Reviewed in medical record. MEDICAL HISTORY Past Medical History: Diagnosis Date Acute Respiratory Failure With Hypoxia ([facility]) 03/19/2017 Anxiety Generalized Disorder Peptic Ulcer Site Unspecified Unspecified As Acute Or Chronic Without Hemorrhage Or Perforation 03/31/2011 Poisoning By Unspecified Drugs Medicaments And Biological Substances Accidental Unintentional Initial 12/12/2021 Stroke ([facility]) Patient Active Problem List Diagnosis Date Noted Atrial Fibrillation Unspecified ([facility]) 11/24/2023 Chronic Migraine 08/19/2023 History Of Falling 08/16/2023 Hyperlipidemia 08/04/2023 Restless Leg Syndrome 08/04/2023 Monitoring For Therapeutic Drug Therapy 07/31/2023 Bypass Gastric Anne En Y Status Post 07/30/2023 Anemia 07/30/2023 Deficiency Iron 07/30/2023 Residential (Current) Anticoagulant Treatment 07/30/2023 Stroke Cerebrovascular Accident Personal History 07/30/2023 Deficiency Vitamin D 01/16/2022 Phobia Social 01/02/2022 Other Stimulant Dependence In Remission ([facility]) 12/20/2021 Moderate Or Severe Use Disorder (Dependence) Drug Cocaine Remission ([facility]) 12/20/2021 Posttraumatic Stress Disorder Prolonged 12/12/2021 Chronic Diastolic (Congestive) Heart Failure ([facility]) 11/06/2020 Postlaminectomy Syndrome 05/01/2020 Deviation Nasal Septal 02/08/2020 Deformity Nasal 02/08/2020 Atrial Fibrillation Longstanding Persistent ([facility]) 02/03/2019 Anxiety 01/11/2018 Major Depressive Disorder, Recurrent, Unspecified ([facility]) 01/11/2018 Loss Hearing Sensorineural Bilateral 08/20/2017 Attention Deficit Hyperactive Disorder 03/24/2017 Morbid Obesity Body Mass Index >= 35 with Comorbid Condition ([facility]) 03/12/2017 Asthma Mild Persistent ([facility]) 03/12/2017 Chronic Pain Syndrome 12/31/2016 Menopausal And Female Climacteric States 07/20/2016 Bipolar II Disorder ([facility]) 06/20/2016 Diabetes Mellitus Type 2 Without Complication ([facility]) 07/06/2014 Abuse Tobacco Smoking 05/30/2014 Spinal Stenosis Lumbar Region Without Neurogenic Claudication 05/01/2014 Deficiency Of Other Specified B Group Vitamins 01/15/2012 Hypertensive Heart Disease With Heart Failure ([facility]) 05/18/2009 Gastroesophageal Reflux Disease NOS 11/02/2006 Insomnia 11/02/2006 Ventral Hernia Without Obstruction Or Gangrene 02/07/2004 Rhinitis Allergic 02/07/2004 SURGICAL HISTORY Past Surgical History: Procedure Laterality Date GASTRIC BYPASS FAMILY HISTORY Reviewed in chart. SOCIAL HISTORY Social History Tobacco Use Smoking status: Former Current packs/day: 0.50 Types: Cigarettes Smokeless tobacco: Never Tobacco comments: Quit in 2022. Substance Use Topics Alcohol use: No Social History Substance and Sexual Activity Drug Use No OBJECTIVE INITIAL VITAL SIGNS: Initial Vitals Temperature 11/24/23 1503 36.5 ??C Pulse Rate 11/24/23 1500 101 Heart Rate 11/24/23 1500 (!) 145 Resp Rate 11/24/23 1500 15 Blood Pressure 11/24/23 1500 127/74 SpO2 11/24/23 1500 99 % Pain Score 11/24/23 1503 10 - Worst possible pain PHYSICAL EXAMINATION Constitutional: Nursing note and vitals reviewed. No distress. HENT: Head: Normocephalic and atraumatic. Mouth/Throat: Mucous membranes are moist. Eyes: Conjunctivae are normal. Neck: Neck supple. Cardiovascular: Tachycardia present. Irregularly irregular Pulmonary/Chest: Effort normal and breath sounds normal. There is normal air entry. No respiratory distress. Abdominal: Soft. exhibits no distension. Musculoskeletal: General: No deformity. Normal range of motion. Cervical back: Normal range of motion and neck supple. Neurological: Alert and oriented to person, place, and time. Skin: Skin is intact and normal color. No rash noted. She is not diaphoretic. Psychiatric: Cooperative ED COURSE: ED Course as of 11/25/23 0916 ThuNov 24, 2023 1810 Call for admission to PCU due to diltiazem drip and AFib with RVR. Final Diagnoses: as of 11/25/23915 Atrial Fibrillation Permanent (HCC) Tachycardia Patient's Noncompliance With Other Medical Treatment And Regimen For Other Reason - Metoprolol madefeel unwell INTERVENTIONS: Medications dilTIAZem CD 24 hr capsule 120 mg (Cardizem CD) (120 mg oral Given 11/24/23 1556) metoprolol tartrate tablet 25 mg (Lopressor) (25 mg oral Given 11/24/23 1556) ketorolac injection 15 mg (ToradoL) (15 mg intravenous Given 11/24/23 1633) traMADoL tablet 50 mg (Ultram) (50 mg oral Given 11/24/23 1628) oxyCODONE IR tablet 5 mg (Roxicodone) (5 mg oral Given 11/24/232201) ketorolac injection 15 mg (ToradoL) (15 mg intravenous Given 11/24/232255) DIAGNOSTICS LABS: Labs Reviewed CBC WITH DIFFERENTIAL, B - Abnormal Result Value Hemoglobin 10.8 (*) Hematocrit 35.6 Erythrocytes 4.52 MCV 78.8 RBC Distrib Width 23.2 (*) Platelet Count 208 Leukocytes 7.6 Neutrophils 5.31 Lymphocytes 1.27 Monocytes 0.60 Eosinophils 0.35 Basophils 0.05 BASIC METABOLIC PANEL, S/P - Abnormal Potassium, P 4.1 Sodium, P 141 Chloride, P 106 Bicarbonate, P 24 Anion Gap, P 11 BUN (Blood Urea Nitrogen), P 16 Creatinine 0.80 Estimated GFR (eGFR) 83 Calcium, Total, P 8.7 (*) Glucose, P 132 DRUG SCREEN URINE - Abnormal Amphetamines, U Unconfirmed Positive (*) Barbiturates, U Negative Benzodiazepines, U Negative Buprenorphine, U Negative Cocaine, U Negative Methadone, U Negative Methamphetamines, U Negative Opiates, U Negative Oxycodone, U Negative Phencyclidine, U Negative Tetrahydrocannabinol, U Unconfirmed Positive (*) Tricyclic Antidepressants, U Negative MORPHOLOGY EVALUATION - Abnormal RBC Morphology See Specific Findings PLT Morphology See Specific Findings PLT Estimate Adequate Anisocytosis Marked (*) Hypochromia Slight (*) Large PLT Present (*) Microcytosis Slight (*) TROPONIN T, BASELINE, 5TH GEN, P - Abnormal Troponin T, Baseline, 5th gen 11 (*) TROPONIN T, 6H, 5TH GEN, P - Abnormal Troponin T, 6 hr, 5th gen 13 (*) 6H Delta 2 6H Delta Interp Not Changing ETHANOL, S Ethanol, P <10 ECG: ECG 12 Lead Result Date: 11/24/2023 Atrial fibrillation Minimal voltage criteria for LVH, may be normal variant Nonspecific ST and T wave abnormality When compared with ECG of 24-Nov-2023 14:54, Vent. rate has decreased Premature ventricular or aberrantly conducted complexes are no longer present Reviewed by LORNA Luz RADIOLOGY: No orders to display PROCEDURES: Critical care ASSESSMENT / PLAN IMPRESSION AND PLAN Is unclear whether patient was transitioned to warfarin to Eliquis due to a supratherapeutic INR and patient's noncompliance or inconsistent medication administration. The patient notes that she hasbeen taking bites of her half of metoprolol tablet which she imagines to be about 25 mg in the morning and continuing to take 100 mg at nighttime. Initially, the patient was told the nursing team that she may not have been taking her metoprolol for the past 3 days. In review of the last hospital discharge summary, it appears as though the plan was to discharge the patient on 100 mg of metoprolol b.i.d. and diltiazem 120 mg daily. During that hospitalization, the inpatient team had been using dig oxin but this was discontinued by Cardiology at outpatient. The subsequent ER visit 2 days after discharge where EMS had reported bradycardia and hypotension, the ER team then cut the morning metoprolol to 50 mg. This is it was also complicated by patient's alcohol intoxication. Previous cocaine and methamphetamine abuse 15 to 20 years prior. The patient does not have a current medication list with her and is unclear if she was taking diltiazem. During that hospitalization as well, the patient had been on digoxin but this was discontinued after discussion with Cardiology. Patient in permanentAFib from documentation and there would be no utility in cardioversion emergently. Patient also noting that her back pain is becoming so severe that she was having difficulty performing ADLs. Patientnotes that current primary care does not want to prescribe oral Dilaudid and has a referral to painmanagement/pain clinic in the next few weeks. No new trauma and no significant changes in chronic back pain minus uncontrolled due to no longer being prescribed chronic opiates. Do anticipate likely admission for AFib with RVR will give oral diltiazem and metoprolol, based on patient's outpatient plan by previous cardiology but may require further augmentation given this episode of hypotension/bradycardia. Patient with a guardian almost 10 years prior but patient notes was able to obtain or guardianship back. Unclear if patient was able to administer medication/stay compliant with medication strategy to stay out of AFib with RVR. Did discuss other strategies such as ablation but this is notdone emergently and unclear if patient is a surgical candidate for this. Patient with limited judgme nt and focused mostly on chronic pain. 6 months of chest pain that waxes and wanes with significantcardiac workups and lower back pain without concerns for cauda equina syndrome. I reviewed previous medical records including documentation from previous visits, lab results, radiology images/report and EKG images/reports. I personally reviewed the lab result(s) and my interpretation is abnormal. DIAGNOSIS: Final diagnoses: [I48.21] Atrial Fibrillation Permanent (HCC) [R00.0] Tachycardia [Z91.198] Patient's Noncompliance With Other Medical Treatment And Regimen For Other Reason - Metoprolol made feel unwell ED DISCHARGE MEDS: ED Prescriptions None DISPOSITION: [facility] Reuben Hodges D.O. Emergency Medicine Reuben Hodges D.O. 11/25/23 0916 documented in this encounter Plan of Treatment Scheduled Orders Name Type Priority Associated Diagnoses Orde r Schedule ECG 12 Lead ECG Routine Once for 1 Oc currences starting 11/24/2023 until 11/24/2023 documented as of this encounter Procedures Procedure Name Priority Date/Time Associated Diagnosis Comments CRITICAL CARE Routine 11/24/2023 11:30 PM CDT TROPONIN T, 6H, 5TH GEN, P Timed 11/24/2023 8:54 PM CDT ECG Routine 11/24/2023 8:47 PM CDT DRUG SCREEN URINE STAT 11/24/2023 7:0 8 PM CDT MORPHOLOGY EVALUATION STAT 11/24/2023 3:00 PM CDT TROPONIN T, BASELINE, 5TH GEN, P STAT 11/24/2023 3:00 PM CDT ETHANOL, S STAT 11/24/2023 3:00 PM CDT CBC WITH DIFFERENTIAL, B STAT 11/24/2023 3:00 PM CDT BASIC METABOLIC PANEL, S/P STAT 11/24/2023 3:00 PM CDT documented in this encounter Results * Critical Care (11/24/2023 11:30 PM CDT) [...] 6h, 5th Gen (11/24/2023 8:54 PM CDT) Troponin T, 6 hr, 5th gen 13(H) <=10 ng/L 11/24/2023 9:14 PM CDT NPRG 6H Delta 2 ng/L 11/24/2023 9:16 PM CDT NPRG 6H Delta Interp Not Changing 11/24/2023 9:16 PM CDT NPRG Blood 11/24/2023 8:54 PM CDT 11/24/2023 8:56 PM CDT Soft Results Interface LAB BLOOD [facility]I [facility] [address] [place] [address], [place] NPRG [facility] [address] [place] [address] * ECG 12 Lead (11/24/2023 8:47 PM CDT) Ventricular Rate ECG/Min 85 BPM MUSE QRSD Interval 76 ms MUSE QT Interval 392 ms MUSE QTC Interval 466 ms MUSE R Wirtz 8 degrees MUSE T Wave Wirtz -36 degrees MUSE 11/24/2023 8:47 PM CDT 11/24/2023 8:52 PM CDT Impressions MUSE - 11/24/2023 8:52 PM CDT Atrial fibrillation Minimal voltage criteria for LVH, may be normal variant Nonspecific ST and T wave abnormality When compared with ECG of 24-Nov-2023 14:54, Vent. rate has decreased Premature ventricular or aberrantly conducted complexes are no longer present Reviewed by LORNA Luz Narrative Procedure Note Cuong Chen M.D., M.P.H. - 11/24/2023 IMPRESSION: Atrial fibrillation Minimal voltage criteria for LVH, may be normal variant Nonspecific ST and T wave abnormality When compared with ECG of 24-Nov-2023 14:54, Vent. rate has decreased Premature ventricular or aberrantly conducted complexes are no longerpresent Reviewed by LORNA Luz Jason Mcleod M.D. ECG ORDERABLES MUSE NA * (ABNORMAL) Drug Screen Urine (11/24/2023 7:08 PM CDT) Amphetamines, U Unconfirmed Positive(A) Negative 11/24/2023 7:29 PM CDT NPRG Comment: ----ADDITIONAL INFORMATION---- Clinical Services Manager's Cutoff: 500 ng/mL Barbiturates, U Negative Negative 11/24/2023 7:29 PM CDT NPRG Comment: ----ADDITIONAL INFORMATION---- Clinical Services Manager's Cutoff: 200 ng/mL Benzodiazepin es, U Negative Negative 11/24/2023 7:29 PM CDT NPRG Comment: ----ADDITIONAL INFORMATION---- Clinical Services Manager's Cutoff: 150 ng/mL Buprenorphine , U Negative Negative 11/24/2023 7:29 PM CDT NPRG Comment: ----ADDITIONAL INFORMATION---- Clinical Services Manager's Cutoff: 10 ng/mL Cocaine, U Negative Negative 11/24/2023 7:29 PM CDT NPRG Comment: ----ADDITIONAL INFORMATION---- Clinical Services Manager's Cutoff: 150 ng/mL Methadone, U Negative Negative 11/24/2023 7:29 PM CDT NPRG Comment: ----ADDITIONAL INFORMATION---- Clinical Services Manager's Cutoff: 200 ng/mL Methamphetami vincent, U Negative Negative 11/24/2023 7:29 PM CDT NPRG Comment: ----ADDITIONAL INFORMATION---- Clinical Services Manager's Cutoff: 500 ng/mL Opiates, U Negative Negative 11/24/2023 7:29 PM CDT NPRG Comment: ----ADDITIONAL INFORMATION---- Clinical Services Manager's Cutoff: 100 ng/mL Oxycodone, U Negative Negative 11/24/2023 7:29 PM CDT NPRG Comment: ----ADDITIONAL INFORMATION---- Clinical Services Manager's Cutoff: 100 ng/mL Phencyclidine , U Negative Negative 11/24/2023 7:29 PM CDT NPRG Comment: ----ADDITIONAL INFORMATION---- Clinical Services Manager's Cutoff: 25 ng/mL Tetrahydrocan nabinol, U Unconfirmed Positive(A) Negative 11/24/2023 7:29 PM CDT NPRG Comment: ----ADDITIONAL INFORMATION---- Clinical Services Manager's Cutoff: 50 ng/mL Tricyclic Antidepressan ts, U Negative Negative 11/24/2023 7:29 PM CDT NPRG Comment: ----ADDITIONAL INFORMATION---- Clinical Services Manager's Cutoff: 300 ng/mL THE ABOVE DRUG SCREEN PANEL IS FOR MEDICAL PURPOSES ONLY Urine (Urine, Midstream) 11/24/2023 7:08 PM CDT 11/24/2023 7:17 PM CDT Reuben Hodges D.O. LAB URINE ORDERABLE S [facility] [address] [place] [address], [facility] NPRG [facility] [address] [place] [address] * (ABNORMAL) Troponin T, Baseline with 2 Hour/6 Hour Reflex Biomarker Panel (11/24/2023 3:00 PM CDT) Troponin T, Baseline, 5th gen 11(H) <=10 ng/L 11/24/2023 9:04 PM CDT NPRG Blood (Blood, Venous) 11/24/2023 3:00 PM CDT 11/24/2023 3:48 PM CDT Jason Mcleod M.D. LAB BLOOD TROPONIN Performing Organization Address [facility] Co de Phone Number [facility] [address] [place] [address], [facility] NPRG [place] [address] [place] [address] * (ABNORMAL) Morphology Evaluation (11/24/2023 3:00 PM CDT) RBC Morphology See Specific Findings 11/24/2023 4:19 [...] D.O. LAB BLOOD ADD-ON Performing Organization Address City/[facility]/ZIP Co de Phone Number [facility] [address] [place] [address], [place] NPRG [place] [address] [place] [address] * Ethanol Level, Serum (11/24/2023 3:00 PM CDT) Ethanol, P <10 <10 mg/dL 11/24/2023 4:1 1 PM CDT NPRG Blood (Blood, Venous) 11/24/2023 3:00 PM CDT 11/24/2023 3:51 PM CDT Reuben Hodges D.O. LAB BLOOD NON ADD-O N [facility] [address] [place] [address], [facility] NPRG [facility] [address] [place] [address] * (ABNORMAL) Basic Metabolic Panel (11/24/2023 3:00 PM CDT) [facility] Potassium, P 4.1 3.6 - 5.2 mmol/L 11/24/2023 4:04 PM CDT NPRG Sodium, P 141 135 - 145 mmol/L 11/24/2023 4:04 PM CDT NPRG Chloride, P 106 98 - 107 mmol/L 11/24/2023 4:04 PM CDT NPRG Bicarbonate, P 24 22 - 29 mmol/L 11/24/2023 4:04 PM CDT NPRG Anion Gap, P 11 7 - 15 11/24/2023 4:04 PM CDT NPRG BUN (Blood Urea Nitrogen), P 16 6 - 21 mg/dL 11/24/2023 4:04 PM CDT NPRG Creatinine 0.80 0.59 - 1.04 mg/dL 11/24/2023 4:04 PM CDT NPRG Estimated GFR (eGFR) 83 >=60 mL/min/BSA 11/24/2023 4:04 PM CDT NPRG Comment: Estimated GFR calculated using the 2020 CKD_EPI creatinine equation. Calcium, Total, P 8.7(L) 8.8 - 10.2 mg/dL 11/24/2023 4:04 PM CDT NPRG Glucose, P 132 70 - 140 mg/dL 11/24/2023 4:04 PM CDT NPRG Blood (Blood, Venous) 11/24/2023 3:00 PM CDT 11/24/2023 3:48 PM CDT Reuben Hodges D.O. LAB BLOOD ADD-ON [facility] [address] [place] [address], [facility] NPRG [facility] [address] [place] [place] [address] * (ABNORMAL) CBC with Differential, Blood (11/24/2023 3:00 PM CDT) Hemoglobin 10.8(L) 11.6 - 15.0 g/dL 11/24/2023 4:19 PM CDT NPRG Hematocrit 35.6 35.5 - 44.9 % 11/24/2023 4:19 PM CDT NPRG Erythrocytes 4.52 3.92 - 5.13 x10(12)/L 11/24/2023 4:19 PM CDT NPRG MCV 78.8 78.2 - 97.9 fL 11/24/2023 4:19 PM CDT NPRG RBC Distrib Width 23.2(H) 12.2 - 16.1 % 11/24/2023 4:19 PM CDT NPRG Platelet Count 208 157 - 371 x10(9)/L 11/24/2023 4:19 PM CDT NPRG Leukocytes 7.6 3.4 - 9.6 x10(9)/L 11/24/2023 4:19 PM CDT NPRG Neutrophils 5.31 1.56 - 6.45 x10(9)/L 11/24/2023 4:19 PM CDT NPRG Lymphocytes 1.27 0.95 - 3.07 x10(9)/L 11/24/2023 4:19 PM CDT NPRG Monocytes 0.60 0.26 - 0.81 x10(9)/L 11/24/2023 4:19 PM CDT NPRG Eosinophils 0.35 0.03 - 0.48 x10(9)/L 11/24/2023 4:19 PM CDT NPRG Basophils 0.05 0.01 - 0.08 x10(9)/L 11/24/2023 4:19 PM CDT NPRG Blood (Blood, Venous) 11/24/2023 3:00 PM CDT 11/24/2023 3:48 PM CDT Reuben Hodges D.O. LAB BLOOD ADD-ON [facility] [address] [place] [address], [place] NPRG [facility] [address] [place] [address] documented in this encounter Visit Diagnoses Diagnosis Atrial Fibrillation Permanent (HCC)- Primary Tachycardia Patient's Noncompliance With Other Medical Treatment And Regimen For Other Reason documented in this encounter Administered Medications Inactive Administered Medications - up to 3 most recent administrations Medication Order MAR Action Action Date Dose Rate Site dilTIAZem 1 mg/mL in NaCl 0.9% 100 mL infusion (Cardizem) 5-15 mg/hr (5-15 mL/hr), intravenous, Continuous, Starting on Thu11/24/23 at 1550, Type: Titrate, Initiate at: 5 mg/hr, Titrate at: 2.5 mg/hr every 15 min., Goal: HR 60-100 Rate/Dose Verify 11/24/2023 9:38 PM CDT 10 mg/hr 10 mL/hr Rate/Dose Change 11/24/2023 4:46 PM CDT 10 mg/hr 10 mL/h r Rate/Dose Change 11/24/2023 4:27 PM CDT 7.5 mg/hr 7.5 mL/ hr dilTIAZem CD 24 hr capsule 120 mg (Cardizem CD) 120 mg, oral, Once, On Thu11/24/23 at 1545, For 1 dose, Swallow whole. Do NOT crush, chew or open capsule. Given 11/24/2023 3:56 PM CDT 120 mg HYDROmorphone tablet 1 mg (Dilaudid) 1 mg, oral, Every 4 hours PRN, moderate pain or score 4-6 of 10, Starting on Thu11/24/23 at 1858, Does patient have renal impairment, frailty, or advanced age (avoid morphine) and unable to take oxycodone? No, Did the patient fail other oral opioids during hospitalization? No, Does the patient have documented allergies to oxycodone and/or morphine? No, Is the patient on hydromorphone chronically for pain? Yes Given 11/24/2023 7:27 PM CDT 1 mg ketorolac injection 15 mg (ToradoL) 15 mg, intravenous, Once, On Thu11/24/23 at 1613, For 1 dose, Adult IV push rate: Over 15 seconds. Peds IV push rate: Over 1 minute. Doses > 15 mg IV/IM are discouraged due to lack of additional analgesic benefit. Given 11/24/2023 4:33 PM CDT 15 mg ketorolac injection 15 mg (ToradoL) 15 mg, intravenous, Once, On e 11/24/23 at 2254, For 1 dose, Adult IV push rate: Over 15 seconds. Peds IV push rate: Over 1 minute. Doses > 15 mg IV/IM are discouraged due to lack of additional analgesic benefit. Given 11/24/2023 10:5 6 PM CDT 15 mg metoprolol tartrate tablet 25 mg (Lopressor) 25 mg, oral, Once, On Thu11/24/23 at 1545, For 1 dose Given 11/24/2023 3:56 PM CDT 25 mg oxyCODONE IR tablet 5 mg (Roxicodone) 5 mg, oral, Once, On Thu11/24/23 at 2159, For 1 dose Given 11/24/2023 10:02 PM CDT 5 mg traMADoL tablet 50 mg (Ultram) 50 mg, oral, Once, On Thu11/24/23 at 1613, For 1 dose, Restriction Criteria (Pharmacy will review and approve if criteria met): Use in adults 18 years and older Given 11/24/2023 4:28 PM CDT 50 mg documented in this encounter Active and Recently Administered Medications Times are shown in CDT. Scheduled Medication Order 11/22/2023 11/23/2023 11/24/2023 dilTIAZem CD 24 hr capsule 120 mg (Cardizem CD) (COMPLETED) 120 mg, oral, Once, On Thu11/24/23 at 1545, For 1 dose, Swallow whole. Do NOT crush, chew or open capsule. 1556 (Given - Provid er: Emilee Mascorro R.N.) ketorolac injection 15 mg (ToradoL) (COMPLETED) 15 mg, intravenous, Once, On 11/24/23 at 1613, For 1 dose, Adult IV push rate: Over 15 seconds. Peds IV push rate: Over 1 minute. Doses > 15 mg IV/IM are discouraged due to lack of additional analgesic benefit. 1633 (Given - Provid er: Emilee Mascorro R.N.) ketorolac injection 15 mg (ToradoL) (COMPLETED) 15 mg, intravenous, Once, On Thu11/24/23 at 2254, For 1 dose, Adult IV push rate: Over 15 seconds. Peds IV push rate: Over 1 minute. Doses > 15 mg IV/IM are discouraged due to lack of additional analgesic benefit. 2256 (Given - Provid er: Kirsty Cummins R.N.) metoprolol tartrate tablet 25 mg (Lopressor) (COMPLETED) 25 mg, oral, Once, On Thu11/24/23 at 1545, For 1 dose 1556 (Given - Provid er: Emilee Mascorro R.N.) oxyCODONE IR tablet 5 mg (Roxicodone) (COMPLETED) 5 mg, oral, Once, On Thu11/24/23 at 2159, For 1 dose 2202 (Given - Provid er: Kirsty Cummins R.N.) traMADoL tablet 50 mg (Ultram) (COMPLETED) 50 mg, oral, Once, On Thu11/24/23 at 1613, For 1 dose, Restriction Criteria (Pharmacy will review and approve if criteria met): Use in adults 18 years and older 1628 (Given - Provid er: Emilee Mascorro R.N.) Continuous Medication Order 11/22/2023 11/23/2023 11/24/2023 dilTIAZem 1 mg/mL in NaCl 0.9% 100 mL infusion (Cardizem) 5-15 mg/hr (5-15 mL/hr), intravenous, Continuous, Starting on Thu11/24/23 at 1550, Type: Titrate, Initiate at: 5 mg/hr, Titrate at: 2.5 mg/hr every 15 min., Goal: HR 60-100 1610 (New Bag - Prov ider: Emilee Mascorro R.N.)1627 (Rate/Dose Change - Provider: Emilee Mascorro R.N.)1646 (Rate/Dose Change - Provider: Emilee Mascorro R.N.)1915 (Handoff - Provider: Kirsty Cummins R.N.)2138 (Rate/Dose Verify - Provider: Kirsty Cummins R.N.)4720 (Continue to External Healthcare Facility - Provider: Kirsty Cummins R.N.) PRN Medication Order 11/22/2023 11/23/2023 11/24/2023 HYDROmorphone tablet 1 mg (Dilaudid) 1 mg, oral, Every 4 hours PRN, moderate pain or score 4-6 of 10, Starting on Thu11/24/23 at 1858, Does patient have renal impairment, frailty, or advanced age (avoid morphine) and unable to take oxycodone? No, Did the patient fail other oral opioids during hospitalization? No, Does the patient have documented allergies to oxycodone and/or morphine? No, Is the patient on hydromorphone chronically for pain? Yes 1926 (Given - Provid er: Emilee Mascorro R.N.) documented in this encounter Additional Health Concerns Assessment Noted Time PHQ-9 Depression Total Score: 7 07/30/19 24 4:37 PM INFORMATICS DEVELOPER documented as of this encounter Care Teams Litigation Counsel Relationship Specialty Start Date End Date Elsewhere, Pcp PCP - General Internal Medicine 08/18/23 documented as of this encounter
--- OUTSIDE RECORDS SUMMARY | 2023-11-30 08:35 | XMS_ITS | Encounter Summary ---
Author Organization [facility] Address [address] [place] [address] Care Team Providers Care Supervisor Solder Making Name Role Phone Elsewhere, Pcp Primary Care Provider Unavailabl e Reason for Visit * Reason Comments Med Refill Encounter Details Date Type Department Care Team (Late st Contact Info) Description 11/12/2023 Refill Department of Family Medicine, [facility], in [address] [phone] Kinsey Villatoro M.D. 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
--- OUTSIDE RECORDS SUMMARY | 2023-11-30 08:36 | XMS_ITS | Clinical Summary ---
Author Organization [facility] Address [address] [place] [address] Care Team Providers Care Cost Report Clerk Name Role Phone Belkys Mayer MD Primary Care Provider [phone] Source Comments You are receiving this document as you are listed as the primary care provider,follow-up provider, or the patient has been referred to you for consultation.This is in compliance with the Medicare and[facility] EHR Incentive Program,which states Providers who transition their patient to another setting of careor provider of care or refers their patient to another provider of care shouldprovide summary care record for each transition of care or referral. [facility] Allergies Active Allergy Reactions Criticality Noted Date [...] Date Status azelastine (ASTELIN) 0.1 % nasal solutionIndication s:Vasomotor Rhinitis 1 [place] by Nasal route. Indications: Nasal Mucous Membrane Swelling without Infection/Allergy 02/18/20 16 Active simethicone (MYLICON) 125 MG chewable tabletIndications: Flatulence Chew and swallow 1 Tablet (125 mg) by mouth every 6 hours as needed. Indications: Gas 07/02/19 17 Active fluticasone (FLONASE) 50 MCG/ACT nasal solutionIndication s:Nasal Signs and Symptoms 2 Sprays by Nasal route two times a day. Indications: Signs and Symptoms of Nose Diseases 06/26/19 17 Active blood glucose (TRUETEST TEST) test strip Dispense test strips covered by insurance 01/20/20 16 Active Blood Glucose Monitoring Suppl (FIFTY50 GLUCOSE METER 2.0) W/DEVICE KIT Dispense meter, test strips, lancets covered by pt ins. E11.9 NIDDM type II - Test two times per week 09/16/19 17 Active polyethylene glycol-propylene glycol (SYSTANE) 0.4-0.3 % eye drop solutionIndication s:Xerophthalmia (Dry Eye) Place 1-2 Drops into both eyes three times a day as needed. Indications: Excessive Cornea and Conjunctiva Dryness 05/06/20 16 Active cyanocobalamin (KNNBTYGB00) 1000 MCG/ML injectionIndicatio ns:Vitamin B12 Deficiency Inject 1,000 mcg intramuscularly every 30 days. Indications: Inadequate Vitamin B12 12/15/19 17 Active triamcinolone acetonide (KENALOG) 0.1 % ointment Apply topically. 11/21/19 17 Active polyethylene glycol (MIRALAX) packetIndications: Constipation Take 17 g by mouth daily. Indications: Constipation 09/26/19 17 Active multivitamin (THERAGRAN) tabletIndications: supplement Take 1 Tablet by mouth daily. Indications: supplement 09/09/19 17 Active tamsulosin (FLOMAX) 0.4 MG CAPS capsuleIndications :Urinary Frequency Take 1 Capsule (0.4 mg) by mouth daily. Indications: Urinary Frequency Active ketoconazole (NIZORAL) 2 % shampooIndications :Seborrheic Dermatitis of Scalp Apply topically daily as needed. Indications: Dandruff Active ALBUterol sulfate HFA 108 (90 BASE) MCG/ACT inhaler Inhale 1-2 Puffs every 4 hours as needed for Wheezing. Active budesonide-formote rol (SYMBICORT) 80-4.5 MCG/ACT inhalerIndications :Lung Health Inhale 2 Puffs two times a day. Rinse mouth/gargle after use. Indications: Lung Health Active calcium carbonate-vitamin D (OSCAL 500/200 D-3) 500-200 MG-UNIT per tablet Take 1 Tablet by mouth two times a day with meals. Active magnesium hydroxide (MILK OF MAGNESIA) 400 MG/5ML suspensionIndicati ons:constipation Take 15-30 mL by mouth daily as needed for Constipation. Indications: constipation Active cholecalciferol (VITAMIN D3) 1000 UNITS tabletIndications: supplement Take 1 Tablet (1,000 Units) by mouth daily. Indications: supplement Active senna (SENOKOT) 8.6 MG tabletIndications: Constipation Take 1 Tab by mouth daily. Take while on narcotics. Hold for loose stools. Indications: Constipation 30 Tab 03/17/20 17 Active acetaminophen (TYLENOL) 325 MG tabletIndications: Pain Take 2 Tabs by mouth 4 times a day. 24 hour limit of acetaminophen (TYLENOL) is 4000mg. Each tablet contains 325mg of acetaminophen. Please be aware of acetaminophen limit when taking other medications that contain acetaminophen. Indications: Pain 100 Tab 03/17/20 17 Active amphetamine-dextro amphetamine (ADDERALLXR) 30 MG 24 hour release capsuleIndications :Attention Deficit Hyperactivity Disorder Take 1 Cap by mouth daily. Indications: Attention Deficit Hyperactivity Disorder 30 Cap 03/17/20 17 Active furosemide (LASIX) 40 MG tabletIndications: Hypertension Take 0.5 Tablets (20 mg) by mouth daily. Indications: High Blood Pressure Disorder 03/17/20 17 Active sertraline (ZOLOFT) 100 MG tabletIndications: Mood Take 2 Tabs by mouth daily. Indications: Mood 30 Tab 03/17/20 17 Active zolpidem (AMBIEN) 5 MG tabletIndications: Insomnia Take 1 Tab by mouth daily at bedtime. Indications: Trouble Sleeping 15 Tab 03/17/20 17 Active benzonatate (TESSALON) 100 MG capsule Take 1 Cap by mouth three times a day as needed for Cough. 30 Cap 03/26/20 17 Active dextromethorphan-g uaifenesin (ROBITUSSIN-DM) 10-100 MG/5ML syrupIndications:C ough Take 10 mL by mouth every 4 hours as needed. Indications: Cough 236 mL 03/26/20 17 Active hydrOXYzine pamoate (VISTARIL) 50 MG capsule Take 1 Cap by mouth three times a day as needed for Itching, Anxiety or Other (pain). 90 Cap 03/26/20 17 Active ipratropium-albute rol (DUONEB) 0.5-2.5 MG/3ML nebulizer solution Inhale 3 mL every 6 hours as needed. 60 Each 1 03/26/20 17 Active ammonium lactate (LAC-HYDRIN) 12 % lotion Apply topically. 07/19/19 20 Active amiodarone (PACERONE) 200 MG tablet Take 1 Tablet (200 mg) by mouth. 02/08/20 19 Active ALMACONE II 400-400-40 MG/5ML suspension 09/19/19 20 Active aluminum & magnesium hydroxide (ALAMAG) 200-200 MG/5ML suspension Take 30 mL by mouth. Active atorvastatin (LIPITOR) 40 MG tablet Take 1 Tablet (40 mg) by mouth. 01/14/20 18 Active Blood Gluc Meter Disp-Strips (Mojiva) Check blood sugar every Thursday and at rotating times Dispense item covered by pt ins. E11.65 NIDDM type II, controlled 06/06/19 20 Active calcium carbonate (TITRALAC) 1250 MG/5ML One teaspoon once a day Indications: low amount of calcium in the blood 07/14/19 18 Active chlorhexidine gluconate (PERIDEX) 0.12 % solution RINSE WITH ONE CAPFUL FOR 30 SECONDS TWICE DAILY 01/23/20 19 Active diphenhydrAMINE (BENADRYL) 25 MG capsule Take 1 Capsule (25 mg) by mouth. 06/08/19 20 Active BANOPHEN 25 MG capsule 11/20/19 20 Active estradiol (ESTRACE) 0.1 MG/GM vaginal cream Insert one gram into vagina twice a week. 08/20/19 20 Active estrogens, conjugated (PREMARIN) 0.625 MG/GM vaginal cream INSERT ONE APPLICATORFUL INTO THE VAGINA AT BEDTIME TWICE A WEEK 05/26/20 Active hydrocortisone 1 % ointment Apply topically. 06/29/19 20 Active ibuprofen (MOTRIN) 600 MG tablet Take 1 Tablet (600 mg) by mouth. 03/14/20 19 Active Incontinence Supply Disposable (DEPEND FITTED BRIEFS SM/MED) MISC For home use. Will use 2 per day. Size large. 04/28/20 18 Active ONETOUCH DELICA lancets TEST 2 TIMES PER WEEK 07/19/19 18 Active Respiratory Therapy Supplies (AIRS DISPOSABLE NEBULIZER) For home use. Length of need: 12 months 03/16/20 18 Active saline (SODIUM CHLORIDE) 0.65 % nasal solution by Nasal route. 01/26/20 18 Active Sharps Container (WRLZTM-C-TVDDM LOCKING BRACKET) MISC Length: calf Strength: 16-20 mmHg Circumference in cm: For calf: Ankle 12, Calf 18.5 , Ankle to calf length 12 . 03/15/20 18 Active SYRINGE-NEEDLE, DISP, 3 ML (3CC SAFETY SYRINGE 57PO0-0/2) 21G X 1-1/2 3 ML As directed. 10/11/19 20 Active terbinafine (LAMISIL) 1 % cream 11/23/19 20 Active torsemide (DEMADEX) 20 MG tablet Take 2 Tablets (40 mg) by mouth. 02/09/20 19 Active Vaginal Lubricant (REPLENS) Insert one applicator into vagina every three days as needed for vaginal dryness 09/23/19 20 Active sertraline (ZOLOFT) 100 MG tablet Take 1 Tablet (100 mg) by mouth. Active XANAX 0.5 MG tablet Take 1 Tablet (0.5 mg) by mouth two times daily as needed. 06/18/19 24 Active digoxin (LANOXIN) 125 MCG tablet Take 1 Tablet (125 mcg) by mouth daily. 06/29/19 24 Active dextroamphetamine (DEXEDRINE) 5 MG tablet Take by mouth every 12 hours. Active haloperidol (HALDOL) 0.5 MG tablet Take 1 Tablet (0.5 mg) by mouth every 6 hours as needed. 06/18/19 24 Active haloperidol (HALDOL) 1 MG tablet Take by mouth. 01/31/20 23 Active HYDROmorphone (DILAUDID) 2 MG tablet Take 1 Tablet (2 mg) by mouth 4 times a day. 06/29/19 24 Active lisinopril (ZESTRIL) 10 MG tablet Take 1 Tablet (10 mg) by mouth daily. 06/29/19 24 Active loperamide (IMODIUM) 2 MG capsule Take by mouth. 01/31/20 23 Active metFORMIN (GLUCOPHAGE) 500 MG tablet Take 1 Tablet (500 mg) by mouth. Active metoprolol succinate (TOPROL XL) 100 MG 24 hour release tablet Take 1 Tablet (100 mg) by mouth two times a day. 06/29/19 24 Active mupirocin (BACTROBAN) 2 % ointment SMARTSI Application Topical 2-3 Times Daily 06/08/19 24 Active omeprazole (PRILOSEC) 20 MG capsule Take 1 Capsule (20 mg) by mouth daily. 06/29/19 24 Active ondansetron (ZOFRAN-ODT) 4 MG disintegrating tablet Take 1 Tablet (4 mg) by mouth. Active Pediatric Multiple Vitamins (FLINTSTONES PLUS EXTRA C) CHEW daily. Active rOPINIRole (REQUIP) 0.5 MG tablet Take by mouth daily. 07/08/19 24 Active sennosides-docusat e sodium (SENOKOT S) 8.6-50 MG per tablet Take 3 Tablets by mouth two times a day. Active diazePAM (VALIUM) 5 MG tablet Take one tablet 30 minutes prior to procedure. Bring the other tablet with you to the procedure and can repeat if needed. Do not take Dilaudid on the day of the procedure 2 Tablet 09/03/19 24 Active methocarbamol (ROBAXIN) 500 MG tablet Take 1 Tablet (500 mg) by mouth two times daily as needed. 60 Tablet 1 10/05/19 24 Active JANTOVEN 3 MG tablet Managed by outside facility/provider 11/19/19 24 Active JANTOVEN 3 MG tablet Take by mouth. 06/18/19 24 024 Discontinued Active Problems Problem Noted Date Diagnosed Date [...] Encounters Date Type Department Care Team Description 11/19/2023 Notes/Orders [facility] [id number] [place] [phone] Belkys Mayer MD Atrial fibrillation, unspecified type (HRC) (Primary Dx) 10/07/2023 Telephone [facility] [address] [facility] [address] [facility] 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 [address] Edi Gage MD Injection 09/03/2023 2:35 PM CDT Ancillary Procedure 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 Pulse 96 07/09/2023 11:54 AM DEVELOPMENTAL ELECTRONICS ASSEMBLER Temperature 36.8 ??C (98.2 ??F) 03/27/2017 7:24 [...] Care Team (Late st Contact Info) Description 12/09/2023 1:00 PM CDT Appointment [facility] [address] [place], [place] [address] [place] [address] [place] [address] Lachelle Velez DO [address] [place] [address] 01/07/2024 11:20 AM CDT Appointment [facility] [address] [place], [place] [id number] Mehrdad Torrez, [address] [place] [address] Health Maintenance Due Date Last Done Comments Cervical Cancer Screening Due 1960 Colon Cancer Screening Plan Due 1960 Diabetes: Eye Exam 1960 Diabetes: Foot Exam 1960 Diabetes: Lipid Panel 1960 Diabetes: Urine Microalbumin 1960 Hep C Screening (Preventive Services) 1960 Diabetes: Creatinine 03/27/2018 03/27/2017, 03/26/2017, 03/25/2017, Additional history exists Mammogram 07/29/2020 07/29/2019, 07/03, 03/05/2018 Zoster/Shingles (2 of 2) 03/05/2022 01/08/2022 [...] A1C (EXTERNAL RESULT) Routine 07/30/2023 4:48 PM DEVELOPMENTAL ELECTRONICS ASSEMBLER MM MAMMOGRAM SCREENING BILAT W 3D RILEY W CAD Routine 07/29/2019 11:25 AM DEVELOPMENTAL ELECTRONICS ASSEMBLER CREATININE / GFR Specified Time 03/27/2017 7:21 [...] - 03/27/2017 8:12 AM CDT Performed at [address] [address] CLIA number [id number] Chay Spicer MD LAB_1 PN SOFT [address] [place] [phone] from Last 3 Months or Most Recently Relevant to Health Maintenance Advance Directives * Full Code (Latest Code Status on File) Date Activated Date Inactivated Comments 03/12/2017 11:58 AM 03/27/2017 1:30 PM Care Teams Cost Report Clerk Relationship Specialty Start [place] [address] [place] [address] PCP - General Urgent Care 11/19/23
--- OUTSIDE RECORDS SUMMARY | 2023-11-30 08:36 | XMS_ITS | Encounter Summary ---
Author Organization [facility] Address [address] [place] [address] Care Team Providers Care Tire Maker Name Role Phone Elsewhere, Pcp Primary Care Provider Unavailabl e Reason for Visit * Reason Onset Date Comments Anticoagulation 08/27/2023 Appointment ques tion Encounter Details Date Type Department Care Team (Latest Contact Info) Description 08/27/2023 Clinical Communication Department of Anticoagulation in [place], [place] [address] [place] [address] Gasper Alvarez RStephanyN. [address] [place] [phone] Anticoagulation (Appointment question) Social History Tobacco Use [...] Notes * Telephone Encounter - Gasper Alvarez RStephanyN. - 08/27/2023 1:36 PM CDT Attempted to [...] 08/27/2023 12:29 PM CDT Patient called the [facility] service t cancel her INR appointment for today in [place].. Patient is going to try to get into Urgent Care in [place] this afternoon to get her INR done. Eventually patient will be transferring her medical care to Dr. Mayer in [place]. Patient is looking for a refill of her warfarin as she states she does not have enough to get through the weekend. Patient uses [facility] * Telephone Encounter - Gasper Alvarez R.N. - 08/27/2023 12:18 PM CDT Received call from Lis, caregiver at the [facility]. Patient is currently staying there. Lis calls regarding concerns that the patient will cancel/reschedule her appointment. She was supposed to follow up on her INR on 08/19, and has rescheduled her lab for today. It is currently scheduled at 1:30 pm. Noted while talking with Lis that patient no longer has a [facility] primary care physician. Communication on 08/19 notes that today's anticoagulation visit (08/26) will be her last visit, due to not having established PCP. Noted that her new provider, Dr. Mayer at the [facility] will be managing her warfarin going forward. Lis, from [place], was not aware that this change was made. She is going to touch base with the patient, and will be contacting us later today for clarification. documented in this encounter Plan of Treatment Not on file documented as of this encounter Visit Diagnoses Diagnosis Atrial Fibrillation Longstanding Persistent (HCC)- Primary Health Lead (Current) Anticoagulant Treatment Stroke Cerebrovascular Accident Personal History Monitoring For Therapeutic Drug Therapy documented in this encounter Additional Health Concerns Assessment Noted Time PHQ-9 Depression Total Score: 7 07/30/19 24 4:37 PM PHOTOVOLTAIC FABRICATION TECHNICIAN documented as of this encounter Care Teams Tire Maker Relationship Specialty Start Date End Date Elsewhere, Pcp PCP - General Internal Medicine 08/18/23 documented as of this encounter
--- OUTSIDE RECORDS SUMMARY | 2023-11-30 08:36 | XMS_ITS | Encounter Summary ---
Author Organization [facility] Address [address] [place] [address] Care Team Providers Care Plastics And Composites Inspector Name Role Phone Elsewhere, Pcp Primary Care Provider Unavailabl e Reason for Visit * Reason Onset Date Comments Appointment 07/28/2023 Request came in from call center staff Encounter Details Date Type Department Care Team (Latest Contact Info) Description 07/28/2023 Clinical Communication Department of Family Medicine, [facility], in [address] [phone] Kinsey Villatoro M.D. [address] [place] [phone] Appointment (Request came in from call center [...] on filedocumented in this encounter Care Teams Plastics And Composites Inspector Relationship Specialty Start Date End Date Elsewhere, Pcp PCP - General Internal Medicine 08/18/23 documented as of this encounter
--- OUTSIDE RECORDS SUMMARY | 2023-11-30 08:36 | XMS_ITS | Encounter Summary ---
Author Organization [facility] Address [address] [place] [address] Care Team Providers Care Weave Defect Charting Clerk Name Role Phone Elsewhere, Pcp Primary Care Provider Unavailabl e Encounter Details Date Type Department Care Team (Late st Contact Info) Description 08/24/2023 Clinical Communication Pharmacy Prior Auth MARCELINO [phone] Gasper Easton Social History Tobacco Use Types [...] Total Score: 7 07/30/19 24 4:37 PM ENROLLMENT MANAGEMENT DIRECTOR documented as of this encounter Care Teams Weave Defect Charting Clerk Relationship Specialty Start Date End Date Elsewhere, Pcp PCP - General Internal Medicine 08/18/23 documented as of this encounter
--- OUTSIDE RECORDS SUMMARY | 2023-11-30 08:36 | XMS_ITS | Encounter Summary ---
Author Organization [facility] Address [address] [place] [address] Care Team Providers Care Beach Lifeguard Name Role Phone Elsewhere, Pcp Primary Care Provider Unavailabl e Reason for Visit * Reason Comments Med Refill Encounter Details Date Type Department Care Team (Late st Contact Info) Description 08/27/2023 Refill Department of Family Medicine, [facility], in [address] [phone] Kinsey Villatoro M.D. [address] [place] [phone] Med Refill Social History Tobacco Use Types [...] Total Score: 7 07/30/19 24 4:37 PM DIE TURNER documented as of this encounter Care Teams Beach Lifeguard Relationship Specialty Start Date End Date Elsewhere, Pcp PCP - General Internal Medicine 08/18/23 documented as of this encounter
--- OUTSIDE RECORDS SUMMARY | 2023-11-30 08:36 | XMS_ITS | Encounter Summary ---
Author Organization [facility] Address [address] [place] [address] Care Team Providers Care Shower Enclosure Installer Name Role Phone Elsewhere, Pcp Primary Care Provider Unavailabl e Reason for Referral * Outpatient (Routine) - Authorized Specialty Diagnoses / Procedures Referred By Contac t Referred To Contact Anticoagulation Kinsey Villatoro M.D. [address] [place] [phone] [facility] Referral ID Status Reason Start Date Expiration Date V isits Requested Visits Authorized [id number] Authorized 08/20/2023 02/18/[phone] Encounter Details Date Type Department Care Team (Late st Contact Info) Description 08/20/2023 Orders Only Department of Anticoagulation in [place], [place] [address] [place] [address] Tiffany Joyner, RStephanyNStephany Social History Tobacco Use [...] Total Score: 7 07/30/19 24 4:37 PM DIRECTOR LOSS PREVENTION documented as of this encounter Care Teams Shower Enclosure Installer Relationship Specialty Start Date End Date Elsewhere, Pcp PCP - General Internal Medicine 08/18/23 documented as of this encounter
--- OUTSIDE RECORDS SUMMARY | 2023-11-30 08:36 | XMS_ITS | Encounter Summary ---
Author Organization [facility] Address [address] [place] [address] Care Team Providers Care Pen Rider Name Role Phone Belkys Mayer MD Primary Care Provider [phone] Encounter Details Date Type Department Care Team (Latest Contact Info) Description 11/19/2023 Notes/Orders [facility] [id number] [address], [place] [address] Belkys Mayer MD [address] [place] [address] Atrial fibrillation, unspecified type (HRC) (Primary Dx) Social History Tobacco Use Types [...] as of this encounter Progress Notes * Sarahi Rubio RN - 11/19/2023 10:59 AM CDT Chart reviewed. Patient remains on the anticoagulant, but care is managed by an outside clinician/health system: Change the anticoagulant to historical documented in this encounter Plan of Treatment Upcoming Encounters Date Type Department Care Team (Late st Contact Info) Description 12/09/2023 1:00 PM CDT Appointment [facility] [address] [place] [address] [place] [address] [place] [address] Lachelle Velez, DO [address] [place] [address] 01/07/2024 11:20 AM CDT Appointment [facility] [address] [place] [address] [place] [address] [place] [address] documented as of this encounter Visit Diagnoses Diagnosis Atrial fibrillation, unspecified type (HRC)- Primary documented in this encounter Care Teams Pen Rider Relationship Specialty [place] [address] [place] [address] PCP - General Urgent Care 11/19/23 documented as of this encounter
--- OUTSIDE RECORDS SUMMARY | 2023-11-30 08:36 | XMS_ITS | Encounter Summary ---
Author Organization [facility] Address [address] [place] [address] Care Team Providers Care Professor Of Communication And Writing Name Role Phone Elsewhere, Pcp Primary Care Provider Unavailabl e Reason for Visit * Reason Onset Date Comments Anticoagulation 07/31/2023 CCM Enrollment Encounter Details Date Type Department Care Team (Latest Contact Info) Description 07/31/2023 Clinical Communication Department of Anticoagulation in [place], [place] [address] [place] [phone] Armand Flores, RStephanyNStephany [address] [place] [phone] Anticoagulation (CCM Enrollment) Social History Tobacco Use [...] Armand Flores RStephanyN. - 07/31/2023 1:33 PM ORACLE HYPERION CONSULTANT Brandee Brown is eligible for Chronic Care [...] and reimbursement for services provided outside of [id number] office visits. If you agree with this [...] provider supports the level of complexity recommended. LE HYPERION CONSULTANT documented in this encounter Plan of Treatment Not on file documented as of this encounter Visit Diagnoses Diagnosis Atrial Fibrillation Longstanding Persistent (HCC)- Primary Intermediate (Current) Anticoagulant Treatment Stroke Cerebrovascular Accident Personal History Monitoring For Therapeutic Drug Therapy documented in this encounter Additional Health Concerns Assessment Noted Time PHQ-9 Depression Total Score: 7 07/30/19 4:37 PM ORACLE HYPERION CONSULTANT documented as of this encounter Care Teams Professor Of Communication And Writing Relationship Specialty Start Date End Date Elsewhere, Pcp PCP - General Internal Medicine 08/18/23 documented as of this encounter
--- OUTSIDE RECORDS SUMMARY | 2023-11-30 08:36 | XMS_ITS | Encounter Summary ---
Author Organization [facility] Address [address] [place] [address] Care Team Providers Care Ceramic Tiler Name Role Phone Elsewhere, Pcp Primary Care Provider Unavailabl e Reason for Visit * Reason Comments Med Refill Encounter Details Date Type Department Care Team (Late st Contact Info) Description 10/21/2023 Refill Department of Family Medicine, [facility], in [address] [phone] Kinsey Villatoro M.D. [address] [place] [phone] Med Refill Social History Tobacco Use Types [...] Total Score: 7 07/30/19 24 4:37 PM DISTRICT ASSOCIATE JUDGE documented as of this encounter Care Teams Ceramic Tiler Relationship Specialty Start Date End Date Elsewhere, Pcp PCP - General Internal Medicine 08/18/23 documented as of this encounter
--- OUTSIDE RECORDS SUMMARY | 2023-11-30 08:36 | XMS_ITS | Encounter Summary ---
Author Organization [facility] Address [address] [facility] [place] [address] Care Team Providers Care Underground Truck Operator Name Role Phone Aleksey Smith MD Primary Care Provider [phone] Reason for Visit * Reason Comments Injection Encounter Details Date Type Department Care Team (Late st Contact Info) Description 10/07/2023 Telephone [facility] [address] Rehabil[facility] [address] [place] [address] [place] [address] [place] [phone] Injection Social History Tobacco Use Types Packs/Day [...] Info) Description 12/09/2023 1:00 PM CDT Appointment [facility] [address] [place] [address] Mehrdad Torrez, [address] [place] [address] Lachelle Velez DO [address] [place] [address] 01/07/2024 11:20 AM CDT Appointment [facility] [address] [place] [address] [place] [address] [address] [place] [address] documented as of this encounter Visit Diagnoses Not on filedocumented in this encounter Care Teams Underground Truck Operator Relationship Specialty Start Date End Date Aleksey Smith MD [address] [place] [address] PCP - General 02/09/13 11/18/23 documented as of this encounter
--- OUTSIDE RECORDS SUMMARY | 2023-11-30 08:36 | XMS_ITS | Encounter Summary ---
Author Organization [facility] Address [address] [place] [address] Care Team Providers Care Workplace Trainer And Assessor Name Role Phone Elsewhere, Pcp Primary Care Provider Unavailabl e Reason for Visit * Reason Comments Med Refill Encounter Details Date Type Department Care Team (Late st Contact Info) Description 08/17/2023 Refill Department of Family Medicine, [facility], in [address] [phone] Kinsey Villatoro M.D. [address] [place] [phone] Med Refill Social History Tobacco Use Types [...] Total Score: 7 07/30/19 24 4:37 PM PAPER WOOD CUTTER documented as of this encounter Care Teams Workplace Trainer And Assessor Relationship Specialty Start Date End Date Elsewhere, Pcp PCP - General Internal Medicine 08/18/23 documented as of this encounter
--- OUTSIDE RECORDS SUMMARY | 2023-11-30 08:36 | XMS_ITS | Encounter Summary ---
Author Organization [facility] Address [address] [place] [address] Care Team Providers Care Substation Operator Conversion Name Role Phone Elsewhere, Pcp Primary Care Provider Unavailabl e Encounter Details Date Type Department Care Team (Late st Contact Info) Description 07/28/2023 Clinical Communication Department of Family Medicine, [facility], in [address] [phone] Kinsey Villatoro M.D. [address] [place] [phone] Social History Tobacco Use Types Packs/Day Years [...] on filedocumented in this encounter Care Teams Substation Operator Conversion Relationship Specialty Start Date End Date Elsewhere, Pcp PCP - General Internal Medicine 08/18/23 documented as of this encounter
--- OUTSIDE RECORDS SUMMARY | 2023-11-30 08:36 | XMS_ITS | Encounter Summary ---
Author Organization [facility] Address [address] [place] [address] Care Team Providers Care Manager Security Name Role Phone Elsewhere, Pcp Primary Care [...] #2 Refractive error (myopic astigmatism, presbyopia, anisometropia). [facility] Reports - EYEGEN Id: [id number] Status: Fnl documented in this encounter Plan of Treatment Not on file documented as of this encounter Visit Diagnoses Not on filedocumented in this encounter Care Teams Manager Security Relationship Specialty Start Date End Date Elsewhere, Pcp PCP - General Internal Medicine 08/18/23 documented as of this encounter
--- OUTSIDE RECORDS SUMMARY | 2023-11-30 08:36 | XMS_ITS | Encounter Summary ---
Author Organization [facility] Address [address] [place] [address] Care Team Providers Care Dry Cell Tester Name Role Phone Elsewhere, Pcp Primary Care Provider Unavailabl e Encounter Details Date Type Department Care Team (Late st Contact Info) Description 08/14/2023 Clinical Communication Department of Family Medicine, [facility], in [address] [phone] Kinsey Villatoro M.D. [address] [place] [phone] Social History Tobacco Use Types Packs/Day Years [...] Total Score: 7 07/30/19 24 4:37 PM LOOP MACHINE OPERATOR documented as of this encounter Care Teams Dry Cell Tester Relationship Specialty Start Date End Date Elsewhere, Pcp PCP - General Internal Medicine 08/18/23 documented as of this encounter
--- OUTSIDE RECORDS SUMMARY | 2023-11-30 08:36 | XMS_ITS | Encounter Summary ---
Author Organization [facility] Address [address] [place] [address] Care Team Providers Care Quill Reamer Name Role Phone Elsewhere, Pcp Primary Care Provider Unavailabl e Reason for Visit * Reason Comments Med Refill Encounter Details Date Type Department Care Team (Late st Contact Info) Description 08/06/2023 Refill Department of Family Medicine, [facility], in [address] [phone] Kinsey Villatoro M.D. [address] [place] [phone] Med Refill Social History Tobacco Use Types [...] med list. Primary Provider: Kinsey Villatoro M.D. RVISOR PHOSPHORIC ACID documented in this encounter Plan of Treatment Not on file documented as of this encounter Visit Diagnoses Diagnosis Attention Deficit Hyperactive Disorder- Primary documented in this encounter Additional Health Concerns Assessment Noted Time PHQ-9 Depression Total Score: 7 07/30/19 24 4:37 PM SUPERVISOR PHOSPHORIC ACID documented as of this encounter Care Teams Quill Reamer Relationship Specialty Start Date End Date Elsewhere, Pcp PCP - General Internal Medicine 08/18/23 documented as of this encounter
--- OUTSIDE RECORDS SUMMARY | 2023-11-30 08:36 | XMS_ITS | Encounter Summary ---
Author Organization [facility] Address [address] [place] [address] Care Team Providers Care Wharf Builder Name Role Phone Elsewhere, Pcp Primary Care Provider Unavailabl e Reason for Visit * Reason Onset Date Comments Rx Prior Authorization 08/18/2023 Imitrex Encounter Details Date Type Department Care Team (Latest Contact Info) Description 08/18/2023 Clinical Communication Department of Family Medicine, [facility], in [address] [phone] Kinsey Villatoro M.D. [address] [place] [phone] Rx Prior Authorization (Imitrex) Social History Tobacco [...] Total Score: 7 07/30/19 24 4:37 PM REGRINDER documented as of this encounter Care Teams Wharf Builder Relationship Specialty Start Date End Date Elsewhere, Pcp PCP - General Internal Medicine 08/18/23 documented as of this encounter
--- OUTSIDE RECORDS SUMMARY | 2023-11-30 08:36 | XMS_ITS | Encounter Summary ---
Author Organization [facility] Address [address] [place] [address] Care Team Providers Care Cops Name Role Phone Elsewhere, Pcp Primary Care Provider Unavailabl e Reason for Visit * Reason Comments Med Refill Pt presents from SNF with ongoing ankle pain from fx on 09/14. Pt reports she ran out of pain medications last night. Encounter Details Date Type Department Care Team ([facility] st Contact Info) Description 09/28/2023 12:05 PM CDT - 09/28/2023 12:49 PM CDT [facility] [address] [place] [phone] Simba Patricio M.D. [address] [place] [phone] Medication Management Issue (Primary Dx); Pain Back [...] through Care Everywhere. * Chronic Back Pain Hxkw-em-Wjqu ([place]yan) documented in this encounter Medications at Time of Discharge Medication Sig Dispensed Refills Start Date End Date acetaminophen (TYLENOL) 500 mg tablet Take 1,000 mg by mouth every 6 (six) hours as needed. Take at 7:00 am, 12:00 pm, 5:00 pm, 10:00 pm atorvastatin (LIPITOR) 40 mg tablet Take 1 [...] 6 (six) hours as needed (anxiety). 07/06/2023 cyanocobalamin (VITAMIN B12) 1,000 mcg tablet Take [...] day. 16 g 11 07/30/2023 haloperidoL (HALDOL) 1 mg tablet 1 mg [...] shampoo 1 Application as needed. 11/12/2021 lancets [facility] One touch delica lancets 33g Dispense item [...] by mouth daily. 90 tablet 3 08/13/2023 miscellaneous medical supply [facility] Length: calf Strength: 16-20 mmHg Circumference in [...] tablet 08/13/2023 ONETOUCH DELICA LANCETS 33 gauge misc TEST [...] mg by mouth at bedtime. 1 04/14/2017 dottd-j-xjnkacfunxqvt 300 unit capsule Take 300 Units by mouth. 12/17/2020 11/25/2023 aluminum-magnesium hydroxide 200-200 mg/5 mL suspension Take 30 mL by mouth 3 (three) times a day with meals. Shake Well. 11/25/2023 budesonide-formoterol (for_SYMBICORT) 80-4.5 mcg/actuation inhaler Inhale 2 puffs 2 (two) times a day. Rinse mouth with water after use to reduce aftertaste and incidence of candidiasis. Do not swallow. 11/25/2023 clindamycin (CLEOCIN) 150 mg capsule Take 600 mg by mouth daily as needed. 01/03/2021 11/25/2023 dextroamphetamine-amp hetamine (ADDERALL) 10 mg tablet Take 10 mg by mouth 2 (two) times a day. 11/25/2023 diphenhydrAMINE (BENADRYL) 25 mg capsule Take 25 [...] 11/23/2019 11/25/2023 documented as of this encounter ED Notes * Simba Patricio M.D. - 09/28/2023 12:25 PM CDT SUBJECTIVE CHIEF COMPLAINT/REASON FOR VISIT Med Refill (Pt presents from SNF with ongoing ankle pain [...] Total Score: 7 07/30/19 24 4:37 PM OFFICE PROFESSIONAL documented as of this encounter Care Teams Cops Relationship Specialty Start Date End Date Elsewhere, Pcp PCP - General Internal Medicine 08/18/23 documented as of this encounter
--- OUTSIDE RECORDS SUMMARY | 2023-11-30 08:36 | XMS_ITS | Encounter Summary ---
Author Organization [facility] Address [address] [place] [address] Care Team Providers Care Emergency Services Dispatcher Name Role Phone Elsewhere, Pcp Primary Care Provider Unavailabl e Reason for Referral * Outpatient (Routine) - Authorized Specialty Diagnoses / Procedures Referred By Contac t Referred To Contact Emergency Medicine Diagnoses Shortness Of Breath Atrial Fibrillation Paroxysmal (HCC) Erlin Espinosa M.D. [address] [place] [phone] [facility] Region Referral ID Status Reason Start Date Expiration Date V isits Requested Visits Authorized [id number] Authorized 11/10/2023 05/11/2025 1 1 * Outpatient (Routine) - Authorized Specialty Diagnoses / Procedures Referred By Contac t Referred To Contact Emergency Medicine Diagnoses Intussusception (HCC) Erlin Espinosa M.D. [address] [place] [phone] [facility] Region Referral ID Status Reason Start Date Expiration Date V isits Requested Visits Authorized [id number] Authorized 11/10/2023 05/11/2025 1 1 Reason for Visit * Reason Comments Shortness of Breath Patient presents wit h increasing SOB, weakness and pain in left lower abdomen that has been going on for a couple months but progressively getting worse in the last couple weeks. Encounter Details Date Type Department Care Team (Late st Contact Info) Description 11/10/2023 11:06 AM CDT - 11/10/2023 2:38 PM CDT Emergency [facility] [address] [place] [phone] Erlin Espinosa M.D. [address] [place] [phone] Shortness Of Breath (Primary Dx); Atrial Fibrillation [...] Sign Reading Time Taken Comments Blood Pressure 119/93 11/10/2023 2:15 PM CDT Pulse 93 11/10/2023 2:30 PM CDT Temperature 36.7 ??C (98.1 ??F) 11/10/2023 12:23 PM C DT Respiratory Rate 16 11/10/2023 2:32 PM CDT Oxygen Saturation 98% 11/10/2023 2:30 PM CDT Inhaled Oxygen Concentration - - Weight 91.3 kg (201 lb 4.8 oz) 11/10/2023 11:09 AM CDT Height 157.5 cm (5' 2) 11/10/2023 11:09 AM CDT Body Mass Index 36.82 11/10/2023 11:09 AM CDT documented in this encounter Discharge Instructions * Discharge Instructions* Erlin Espinosa M.D. - 11/10/2023 2:21 PM CDT You were seen today for multiple concerns. Specific to your shortness of breath. No adjustments to your current medications. You do have chronic atrial fibrillation and your recommended to follow up with her environmental coordinator regarding any medication adjustments. Your INR today: 2.1. Your CT scan did show concern for intussusception, you have a surgical consultation scheduled for tomorrow morning. Your advised to continue with your current medication regimen, pain management strategy and waitingfor primary care establishment appointment which you should be called and scheduled within the next24 hours. Your always welcome to reach out to your primary care doctor for any additional care required untilyou are able to be seen. * Attachments The following attachments cannot be sent through Care Everywhere. * Shortness of Breath Adult ([place]) documented in this encounter Medications at Time of Discharge Medication Sig Dispensed Refills Start Date End Date acetaminophen (TYLENOL) 500 mg tablet Take 1,000 mg by mouth every 6 (six) hours as needed. Take at 7:00 am, 12:00 pm, 5:00 pm, 10:00 pm atorvastatin (LIPITOR) 40 mg tablet Take 1 tablet (40 mg total) by mouth at bedtime. 90 tablet 08/13/2023 vpoid-o-yddnidtrxkvtu 300 unit capsule Take 300 Units by mouth. 12/17/2020 11/25/2023 metoprolol tartrate (LOPRESSOR) 50 mg tablet Take 1 tablet (50 mg total) by mouth 2 (two) times a day. 180 tablet 08/13/2023 11/26/2023 azelastine (ASTELIN) 137 mcg/spray (0.1 %) nasal [...] shampoo 1 Application as needed. 11/12/2021 lancets [facility] One touch delica lancets 33g Dispense [...] 90 tablet 3 08/13/2023 miscellaneous medical supply [facility] Length: calf Strength: 16-20 mmHg Circumference [...] mg by mouth at bedtime. 1 04/14/2017 aluminum-magnesium hydroxide 200-200 mg/5 mL suspension Take [...] tablet Take 500 mg by mouth. 01/21/20212023 pregabalin (LYRICA) 100 mg capsule Take 1 [...] as of this encounter ED Notes * Erlin Espinosa M.D. - 11/10/2023 11:31 AM CDT SUBJECTIVE CHIEF COMPLAINT/REASON FOR VISIT Shortness of Breath (Patient presents with increasing SOB, weakness and pain in left lower abdomen that has been going on for a couple months but progressively getting worse in the last couple weeks.) HISTORY OF PRESENT ILLNESS Patient is a 63-year-old female presenting to the emergency department. Patient is currently being titrated off of her chronic hydromorphone pain management, was transition to Suboxone, does not appreciate the Suboxone, has been off of all medications for the past 2 weeks. Patient reports recent increase in shortness of breath sensation, generalized fatigue, and generalized pain in the but also is complaining of several months of left lower quadrant abdominal pain, feels like she can feel her small intestines pushing out on the left side of her abdomen. Worse with palpation. She has tried no new specific medication interventions. Denies any fever cough specific to the shortness of breath, she does note chronic atrial fibrillation with chronic anticoagulation on warfarin. Given her constellation of symptoms she has currently seeing a primary care doctor through the [facility] system, saw her3 weeks ago, feels that they are working well together and expressing she is pending to switch providers, and states that she has not yet talked to her about her months of abdominal pain. History provided by: Patient certified court/medical interpreter needed/used: no REVIEW OF SYSTEMS Constitutional: Negative for fever. HENT: Negative for sore throat. Eyes: Negative for visual disturbance. Respiratory: Positive for shortness of breath. Negative for cough. Cardiovascular: Negative for leg swelling. Gastrointestinal: Positive for abdominal pain. Negative for vomiting. Genitourinary: Negative for dysuria. Skin: Negative for rash. Neurological: Negative for headaches. Hematological: Does not bruise/bleed easily. ALLERGIES/MEDICATIONS: Reviewed in medical record. MEDICAL HISTORY Past Medical History: Diagnosis Date Acute Respiratory Failure With Hypoxia ([facility]) 03/19/2017 Anxiety Generalized Disorder Peptic Ulcer Site Unspecified Unspecified As Acute Or Chronic Without Hemorrhage Or Perforation 03/31/2011 Poisoning By Unspecified Drugs Medicaments And Biological Substances Accidental Unintentional Initial 12/12/2021 Stroke ([facility]) Patient Active Problem List Diagnosis Date Noted Chronic Migraine 08/19/2023 History Of Falling 08/16/2023 Hyperlipidemia 08/04/2023 Restless Leg Syndrome 08/04/2023 Monitoring For Therapeutic Drug Therapy 07/31/2023 Bypass Gastric Anne En Y Status Post 07/30/2023 Anemia 07/30/2023 Deficiency Iron 07/30/2023 Fdc (Current) Anticoagulant Treatment 07/30/2023 Stroke Cerebrovascular Accident Personal History 07/30/2023 Deficiency Vitamin D 01/16/2022 Phobia Social 01/02/2022 Other Stimulant Dependence In Remission ([facility]) 12/20/2021 Moderate Or Severe Use Disorder (Dependence) Drug Cocaine Remission ([facility]) 12/20/2021 Posttraumatic Stress Disorder Prolonged 12/12/2021 Chronic Diastolic (Congestive) Heart Failure ([facility]) 11/06/2020 Postlaminectomy Syndrome 05/01/2020 Deviation Nasal Septal 02/08/2020 Deformity Nasal 02/08/2020 Atrial Fibrillation Longstanding Persistent ([facility]) 02/03/2019 Anxiety 01/11/2018 Major Depressive Disorder, Recurrent, Unspecified ([facility]) 01/11/2018 Loss Hearing Sensorineural Bilateral 08/20/2017 Attention Deficit Hyperactive Disorder 03/24/2017 Morbid Obesity Body Mass Index >= 35 with Comorbid Condition ([facility]) 03/12/2017 Asthma Mild Persistent ([facility]) 03/12/2017 Chronic Pain Syndrome 12/31/2016 Menopausal And Female Climacteric States 07/20/2016 Bipolar II Disorder ([facility]) 06/20/2016 Diabetes Mellitus Type 2 Without Complication ([facility]) 07/06/2014 Abuse Tobacco Smoking 05/30/2014 Spinal Stenosis Lumbar Region Without Neurogenic Claudication 05/01/2014 Deficiency Of Other Specified B Group Vitamins 01/15/2012 Hypertensive Heart Disease With Heart Failure ([facility]) 05/18/2009 Gastroesophageal Reflux Disease NOS 11/02/2006 Insomnia 11/02/2006 Ventral Hernia Without Obstruction Or Gangrene 02/07/2004 Rhinitis Allergic 02/07/2004 SURGICAL HISTORY Past Surgical History: Procedure Laterality Date GASTRIC BYPASS FAMILY HISTORY Reviewed in chart SOCIAL HISTORY Social History Socioeconomic History Marital status: Tobacco Use Smoking status: Former Current packs/day: 0.50 Types: Cigarettes Smokeless tobacco: Never Tobacco comments: Quit in 2022. Vaping Use Vaping status: current some days use Substance and Sexual Activity Alcohol use: No Drug use: No Sexual activity: Defer Social Determinants of Health Food Insecurity: No Food Insecurity (07/05/2021) Received from [facility] Hunger Vital Sign Worried About Running Out of Food in the Last Year: Never true Ran Out of Food in the Last Year: Never true Transportation Needs: No Transportation Needs (07/05/2021) Received from [facility] PRAPARE - Transportation Lack of Transportation (Medical): No Lack of Transportation (Non-Medical): No Physical Activity: Inactive (07/05/2021) Received from [facility] Exercise Vital Sign Days of Exercise per Week: 0 days Minutes of Exercise per Session: 10 min Housing Stability: Low Risk (07/05/2021) Received from [facility] Housing Stability Vital Sign Unable to Pay for Housing in the Last Year: No Number of Places Lived in the Last Year: 1 Unstable Housing in the Last Year: No Social History Substance and Sexual Activity Alcohol Use No Social History Substance and Sexual Activity Drug Use No OBJECTIVE INITIAL VITAL SIGNS Initial Vitals Temperature 11/10/23 1108 (!) 35.8 ??C Pulse Rate 11/10/23 1100 81 Heart Rate 11/10/23 1100 101 Resp Rate 11/10/23 1100 14 Blood Pressure 11/10/23 1100 136/84 SpO2 11/10/23 1100 97 % Pain Score 11/10/23 1107 8 PHYSICAL EXAMINATION Constitutional: Nursing note and vitals reviewed. No distress. HENT: Mouth/Throat: Mucous membranes are moist. Eyes: Pupils are equal, round, and reactive to light. Cardiovascular: An irregularly irregular rhythm present. Tachycardia present. No murmur heard.Edema: no edema noted Pulmonary/Chest: Effort normal and breath sounds normal. No respiratory distress. Abdominal: Soft. There is abdominal tenderness. There is no rebound and no guarding. Musculoskeletal: General: Normal range of motion. Neurological: Alert. Skin: No cyanosis. ED COURSE ED Course as of 11/10/23 1512 Tue Nov 10, 2023 1134 ECG 12 Lead Atrial fibrillation has replaced Sinus bradycardia 1148 Prothrombin Time (PT)(!): Prothrombin Time, P 23.5(!) INR 2.1 INR therapeutic 1156 Troponin T, Baseline with 2 Hour/6 Hour Reflex Biomarker Panel(!): Troponin T, Baseline, 5th gen 11(!) Minimally elevated cardiac enzyme, low clinical suspicion for significant ACS at this time, we willobtain delta troponin. Expect it maybe rate related with underlining atrial fibrillation. 1157 CBC with Differential, Blood(!): Hemoglobin 10.2(!) Hematocrit 35.0(!) Erythrocytes 4.67 MCV 74.9(!) RBC Distrib Width 20.3(!) Platelet Count 214 Leukocytes 5.3 Neutrophils 3.51 Lymphocytes 0.90(!) Monocytes 0.48 Eosinophils 0.31 Basophils 0.06 Chronic stable anemia at 10.2, no significant change from her prior studies. She also has no evidence of leukocytosis with low clinical suspicion for infectious concern. 1157 Lactate(!): Lactate 2.5(!) Minimally elevated lactic acid, will fluid resuscitation emergency department. 1202 Kidney function is otherwise normal with no significant electrolyte derangements. She does have minimally elevated liver function tests, I did review her previous laboratory studies and they were slightly elevated as well in July. Slight up trending noted, she has no reproducible right upper quadrant pain. 1205 NT-Pro B-Type Natriuretic Peptide (BNP)(!): NT-Pro BNP 1258(!) Minimally elevated proBNP, down from prior study, no physical signs suggesting significant fluid overload in the emergency department at this time. 1212 DX Chest AP or PA and Lateral 2 Views IMPRESSION: Possible subluxation or dislocation of the left shoulder. No other radiographic abnormality is demonstrated. 1212 X-ray shows no significant pulmonary pathology. There was question of possible left shoulder dislocation versus subluxation. Clinically she has had no trauma or injury to the left shoulder, favors likely episodes of subluxation. 1221 Lactate(!): 2.5 Patient is also on metformin which may also contribute to slightly elevated lactic acid. 1301 CT Abdomen Pelvis with IV Contrast COMPARISON: 02/06/2023 and prior FINDINGS: There is [...] on previous study. No evidence for obstruction. 1337 Urinalysis with Microscopic if Indicated: Source Urine, Urine, Midstream Clarity Clear Color, U Yellow Blood Negative Nitrite, U Negative Leukocyte Esterase Negative Protein Urine Random Negative Glucose Negative Ketones, QL(U) Negative Bilirubin Negative pH 6.5 Specific [place] 1.010 Urobilinogen 0.2 Urine study negative for any significant findings. 1355 Case was discussed with GI, Dr. Holguin, who did recommend consideration for air enema given this is her area of pain versus surgical consultation. 1355 Patient was discussed with Dr. Beltran from Interventional Radiology, Noted that it is too high upfor a potential treatment with air enema. Did state that it may be chronic in nature and unsure of necessity of surgery, however at this time we will consult surgery for their recommendations and definitive disposition planning. 1356 Patient has been updated on current status. 1356 Troponin T, 2 Hour with 6 Hour Reflex, 5th Gen(!): Troponin T, 2 hr, 5th gen 13(!) 2H Delta 2 2H Delta Interp Not Changing No significant delta change. Do not believe this represents ACS. Final Diagnoses: as of 11/10/23 1512 Shortness Of Breath Atrial Fibrillation Paroxysmal (HCC) Intussusception (HCC) INTERVENTIONS Medications sodium chloride 0.9 % injection 2-10 mL (has no administration in time range) sodium chloride 0.9 % injection 3 mL (has no administration in time range) sodium chloride 0.9 % injection 10 mL (has no administration in time range) sodium chloride 0.9 % injection 3 mL (has no administration in time range) ketorolac injection 15 mg (TORADOL) (15 mg intravenous Given 11/10/23 1138) NaCl 0.9 % bolus 1,000 mL (0 mL intravenous Stopped 11/10/23 1420) sodium chloride 0.9 % injection 10 mL (10 mL intravenous Given 11/10/23 1250) sodium chloride 0.9 % flush 100 mL (100 mL intravenous Given 11/10/23 1249) iohexoL 300 mg iodine/mL solution 1-200 mL (OMNIPAQUE) (140 mL intravenous Given 11/10/23 1250) HYDROmorphone injection 0.5 mg (DILAUDID) (0.5 mg intravenous Given 11/10/23 1407) LABS Labs Reviewed CBC WITH DIFFERENTIAL, B - Abnormal Result Value Hemoglobin 10.2 (*) Hematocrit 35.0 (*) Erythrocytes 4.67 MCV 74.9 (*) RBC Distrib Width 20.3 (*) Platelet Count 214 Leukocytes 5.3 Neutrophils 3.51 Lymphocytes 0.90 (*) Monocytes 0.48 Eosinophils 0.31 Basophils 0.06 NT-PRO B-TYPE NATRIURETIC PEPTIDE (BNP), S - Abnormal NT-Pro BNP 1258 (*) TROPONIN T, BASELINE, 5TH GEN, P - Abnormal Troponin T, Baseline, 5th gen 11 (*) PROTHROMBIN TIME (PT), P - Abnormal Prothrombin Time, P 23.5 (*) INR 2.1 COMPREHENSIVE METABOLIC PANEL, S/P - Abnormal Potassium, P 4.2 Sodium, P 139 Chloride, P 102 Bicarbonate, P 26 Anion Gap, P 11 BUN (Blood Urea Nitrogen), P 18 Creatinine 0.58 (*) Estimated GFR (eGFR) >90 Calcium, Total, P 8.6 (*) Glucose, P 194 (*) Protein, Total, P 6.4 Albumin, P 3.6 Aspartate Aminotransferase (AST), P 60 (*) Alkaline Phosphatase, P 136 (*) Alanine Aminotransferase (ALT), P 62 (*) Bilirubin, Total, P 0.3 LACTATE, B/P - Abnormal Lactate, P 2.5 (*) TROPONIN T, 2H/6H REFLEX, 5TH GEN, P - Abnormal Troponin T, 2 hr, 5th gen 13 (*) 2H Delta 2 2H Delta Interp Not Changing MORPHOLOGY EVALUATION - Abnormal RBC Morphology See Specific Findings PLT Morphology See Specific Findings PLT Estimate Adequate Anisocytosis Moderate (*) Hypochromia Slight (*) Large PLT Present (*) Microcytosis Moderate (*) LIPASE, S/P Lipase, P 46 URINALYSIS WITH MICROSCOPIC IF INDICATED, U Source Urine, Urine, Midstream Clarity Clear Color Yellow Blood Negative Nitrite Negative Leukocyte Esterase Negative Protein Negative Glucose Negative Ketones, QI(U) Negative Bilirubin Negative pH 6.5 Specific [place] 1.010 Urobilinogen 0.2 ECG ECG 12 Lead Result Date: 11/10/2023 Atrial fibrillation Moderate voltage criteria for LVH, may be normal variant ST and T wave abnormality, consider inferior ischemia When compared with ECG of 07-Feb-2019 10:35, Atrial fibrillation has replaced Sinus bradycardia Reviewed by LORNA Mas RADIOLOGY CT Abdomen Pelvis with IV Contrast Final Result Small intussusception noted in the left lower quadrant at site of bowel anastomoses. This is slightly more prominent than on previous study. No evidence for obstruction. DX Chest AP or PA and Lateral 2 Views Final Result Possible subluxation or dislocation of the left shoulder. No other radiographic abnormality is demonstrated. ASSESSMENT / PLAN ASSESSMENT/PLAN IMPRESSION AND PLAN Brandee Brown is a 63 y.o. female presents emergency department for evaluation of generalized fatigue, shortness of breath, progressing over last few days with left lower quadrant abdominalpain worsening for several months. On arrival emergency department she was intermittent episodes of tachycardia with heart rate ranging between 90s to 120s, appears to be in atrial fibrillation. No evidence of acute ST-elevation myocardial infarction, she does have history of atrial fibrillation for which she is chronically anticoagulated. Recommendation for screening cardiopulmonary laboratory studies, we will obtain abdominal screeninglabs given her several months of abdominal pain with consideration of imaging as needed. Chest x-ray pending. For intervention she did request Toradol, was reasonable for her chronic pain, otherwise will hold on any additional treatment strategies until further testing. Please review ED course for care completed emergency department. DIFFERENTIAL DIAGNOSIS Ddx includes but is not limited to: COPD exacerbation, bronchitis, asthma, pulmonary embolus, acutecoronary syndrome, allergies, reactive airway disease, atrial fibrillation with a rapid ventricularresponse, pericarditis, cardiac tamponade, lung contusion, rib fracture, foreign body aspiration, tracheitis, supraglottitis. I reviewed previous medical records including lab results, radiology images/report, documentation from previous visits and EKG images/reports. DIAGNOSIS Final diagnoses: [R06.02] Shortness Of Breath [I48.0] Atrial Fibrillation Paroxysmal (HCC) [K56.1] Intussusception (HCC) ED DISCHARGE MEDS ED Prescriptions None DISPOSITION Home or Self Fci or Self Care Erlin Espinosa M.D. 11/10/23 1513 documented in this encounter Plan of Treatment Scheduled Referrals Name Type Priority Associated Diagnoses Orde r Schedule POST ED VISIT General Surgery Outpatient Referral Routine Intussusception (HCC) Expected: 11/10/2023, Expires: 02/09/2025 POST ED VISIT Family Medicine Outpatient Referral Routine Shortness Of Breath Atrial Fibrillation Paroxysmal (HCC) Expected: 11/10/2023, Expires: 02/09/2025 documented as of this encounter Procedures Procedure Name Priority Date/Time Associated Diagnosis Comments TROPONIN T, 2H/6H REFLEX, 5TH GEN, P [...] MORPHOLOGY EVALUATION STAT 11/10/2023 11:31 AM CDT TROPONIN T, BASELINE, 5TH GEN, P STAT 11/10/2023 11:31 AM CDT NT-PRO B-TYPE NATRIURETIC PEPTIDE (BNP), S STAT 11/10/2023 11:31 AM CDT PROTHROMBIN TIME (PT), P STAT 11/10/2023 11:31 AM CDT CBC WITH DIFFERENTIAL, B STAT 11/10/2023 11:31 AM CDT LIPASE, S/P STAT 11/10/2023 11:31 AM CDT COMPREHENSIVE METABOLIC PANEL, S/P STAT 11/10/2023 11:31 AM CDT ECG STAT 11/10/2023 11:02 AM CDT documented in this encounter Results * (ABNORMAL) Troponin T, 2 Hour with [...] 1:34 PM CDT 11/10/2023 1:38 PM CDT Erlni Espinosa M.D. LAB BLOOD [place] IN [facility] [address] [place] [address], [facility] NPRG [facility] [address] [place] [address] * Urinalysis with Microscopic if Indicated (11/10/2023 [...] 8.0 11/10/2023 1:34 PM CDT NPRG Specific [place] 1.010 1.001 - 1.035 11/10/2023 1:34 PM CDT NPRG Urobilinogen 0.2 0.2 - 1.0 mg/dL 11/10/2023 1:34 PM CDT NPRG Urine (Urine, Midstream) 11/10/2023 1:20 PM CDT 11/10/2023 1:30 PM CDT Erlin Espinosa M.D. LAB URINE ORDERA [facility] Organization Address City/State/ZIP Co de Phone Number [facility] [address] [place] [address], [facility] NPRG [facility] [address] [place] [address] * CT Abdomen Pelvis with IV Contrast [...] study. Noevidence for obstruction. Erlin Espinosa M.D. [facility] CT PROCEDURE S * DX Chest AP [...] * (ABNORMAL) Lactate (11/10/2023 11:32 AM CDT) Pathologist [facility] Lactate, P 2.5(H) 0.5 - 2.2 mmol/L 11/10/2023 11:56 AM CDT NPRG Blood (Blood, Venous) 11/10/2023 11:32 AM CDT 11/10/2023 11:34 AM CDT Erlin Espinosa M.D. LAB BLOOD NON AD D-ON [facility] [address] [place] [address], [facility] NPRG [facility] [address] [place] [address] * (ABNORMAL) Morphology Evaluation (11/10/2023 11:31 AM CDT) Pathologist [facility] RBC Morphology See Specific Findings 11/10/2023 11:56 AM CDT NPRG PLT Morphology See Specific Findings 11/10/2023 11:56 AM CDT NPRG PLT Estimate Adequate Adequate 11/10/2023 11:56 AM CDT NPRG Anisocytosis Moderate(A) 11/10/2023 11:56 AM CDT NPRG Hypochromia Slight(A) Not Seen 11/10/2023 11:56 AM CDT NPRG Large PLT Present(A) Not Seen 11/10/2023 11:56 AM CDT NPRG Microcytosis Moderate(A) Not Seen 11/10/2023 11:56 AM CDT NPRG Blood 11/10/2023 11:3 1 AM CDT 11/10/2023 11:34 AM CDT Erlin Espinosa M.D. LAB BLOOD ADD-ON Performing Organization Address City/[facility]/ZIP Co de Phone Number [facility] [address] [place] [phone], [facility] [address] [address] * Lipase (11/10/2023 11:31 AM CDT) Lipase, P 46 13 - 60 U/L 11/10/2023 11:58 AM CDT NPRG Blood (Blood, Venous) 11/10/2023 11:31 AM CDT 11/10/2023 11:34 AM CDT Erlin Espinosa M.D. LAB BLOOD ADD-ON Performing Organization Address City/[facility]/ZIP Co de Phone Number [facility] [address] [place] [phone], [address] [address] * (ABNORMAL) Comprehensive Metabolic Panel (11/10/2023 11:31 AM CDT) Potassium, P 4.2 3.6 - 5.2 mmol/L 11/10/2023 11:58 AM CDT NPRG Sodium, P 139 135 - 145 mmol/L 11/10/2023 11:58 AM CDT NPRG Chloride, P 102 98 - 107 mmol/L 11/10/2023 11:58 AM CDT NPRG Bicarbonate, P 26 22 - 29 mmol/L 11/10/2023 11:58 AM CDT NPRG Anion Gap, P 11 7 - 15 11/10/2023 11:58 AM CDT NPRG BUN (Blood Urea Nitrogen), P 18 6 - 21 mg/dL 11/10/2023 11:58 AM CDT NPRG Creatinine 0.58(L) 0.59 - 1.04 mg/dL 11/10/2023 11:58 AM CDT NPRG Estimated GFR (eGFR) >90 >=60 mL/min/BS A 11/10/2023 11:58 AM CDT NPRG Comment: Estimated GFR calculated using the 2020 CKD_EPI creatinine equation. Calcium, Total, P 8.6(L) 8.8 - 10.2 mg/dL 11/10/2023 11:58 AM CDT NPRG Glucose, P 194(H) 70 - 140 mg/dL 11/10/2023 11:58 AM CDT NPRG Protein, Total, P 6.4 6.3 - 7.9 g/dL 11/10/2023 11:58 AM CDT NPRG Albumin, P 3.6 3.5 - 5.0 g/dL 11/10/2023 11:58 AM CDT NPRG Aspartate Aminotransferase (AST), P 60(H) 8 - 43 U/L 11/10/2023 11:58 AM CDT NPRG Alkaline Phosphatase, P 136(H) 35 - 104 U/L 11/10/2023 11:58 AM CDT NPRG Alanine Aminotransferase (ALT), P 62(H) 7 - 45 U/L 11/10/2023 11:58 AM CDT NPRG Bilirubin, Total, P 0.3 0.0 - 1.2 mg/dL 11/10/2023 11:58 AM CDT NPRG Blood (Blood, Venous) 11/10/2023 11:31 AM CDT 11/10/2023 11:34 AM CDT Erlin Espinosa M.D. LAB BLOOD ADD-ON [facility] [address] [place] [address], [facility] NPRG [facility] [address] [place] [address] * (ABNORMAL) Prothrombin Time (PT) (11/10/2023 11:31 [...] M.D. LAB BLOOD ADD-ON Performing Organization Address City/[facility]/ZIP Co de Phone Number [facility] [address] [place] [address], [facility] [place] [address] [place] [address] * (ABNORMAL) Troponin T, Baseline with 2 Hour/6 Hour Reflex Biomarker Panel (11/10/2023 11:31 AM CDT) Pathologist [facility] Troponin T, Baseline, 5th gen 11(H) <=10 ng/L 11/10/2023 11:54 AM CDT [facility] Blood (Blood, Venous) 11/10/2023 11:31 AM CDT 11/10/2023 11:34 AM CDT Erlin Espinosa M.D. LAB BLOOD TROP[place] IN [facility] [address] [place] [address], [place] [address] [place] [address] * (ABNORMAL) NT-Pro B-Type Natriuretic Peptide (BNP) [...] CDT Erlin Espinosa M.D. LAB BLOOD ADD-ON [facility] [address] [place] [address], [facility] NPRG [facility] [address] [place] [address] * (ABNORMAL) CBC with Differential, Blood (11/10/2023 11:31 AM CDT) Hemoglobin 10.2(L) 11.6 - 15.0 g/dL 11/10/2023 11:56 AM CDT NPRG Hematocrit 35.0(L) 35.5 - 44.9 % 11/10/2023 11:56 AM CDT NPRG Erythrocytes 4.67 3.92 - 5.13 x10(12)/L 11/10/2023 11:56 AM CDT NPRG MCV 74.9(L) 78.2 - 97.9 fL 11/10/2023 11:56 AM CDT NPRG RBC Distrib Width 20.3(H) 12.2 - 16.1 % 11/10/2023 11:56 AM CDT NPRG Platelet Count 214 157 - 371 x10(9)/L 11/10/2023 11:56 AM CDT NPRG Leukocytes 5.3 3.4 - 9.6 x10(9)/L 11/10/2023 11:56 AM CDT NPRG Neutrophils 3.51 1.56 - 6.45 x10(9)/L 11/10/2023 11:56 AM CDT NPRG Lymphocytes 0.90(L) 0.95 - 3.07 x10(9)/L 11/10/2023 11:56 AM CDT NPRG Monocytes 0.48 0.26 - 0.81 x10(9)/L 11/10/2023 11:56 AM CDT NPRG Eosinophils 0.31 0.03 - 0.48 x10(9)/L 11/10/2023 11:56 AM CDT NPRG Basophils 0.06 0.01 - 0.08 x10(9)/L 11/10/2023 11:56 AM CDT NPRG Blood (Blood, Venous) 11/10/2023 11:31 AM CDT 11/10/2023 11:34 AM CDT Erlin Espinosa M.D. LAB BLOOD ADD-ON [facility] [address] [place] [address], [facility] NPRG [facility] [address] [place] [address] * ECG 12 Lead (11/10/2023 11:02 AM CDT) Ventricular Rate ECG/Min 90 BPM MUSE QRSD Interval 84 ms MUSE QT Interval 386 ms MUSE QTC Interval 472 ms MUSE R [place] -16 degrees MUSE T Wave [place] -73 degrees MUSE 11/10/2023 11:0 2 AM CDT 11/10/2023 11:26 AM CDT Impressions MUSE - 11/10/2023 11:26 AM CDT Atrial fibrillation Moderate voltage criteria for LVH, may be normal variant ST and T wave abnormality, consider inferior ischemia When compared with ECG of 07-Feb-2019 10:35, Atrial fibrillation has replaced Sinus bradycardia Reviewed by LORNA Mas Narrative Procedure Note Beto Sales M.D. - 11/10/2023 IMPRESSION: Atrial fibrillation Moderate voltage criteria for LVH, may be normal variant ST and T wave abnormality, consider inferior ischemia When compared with ECG of 07-Feb-2019 10:35, Atrial fibrillation has replaced Sinus bradycardia Reviewed by LORNA Mas Erlin Espinosa M.D. ECG ORDERABLES MUSE NA documented in this encounter Visit Diagnoses Diagnosis Shortness Of Breath- Primary Atrial Fibrillation Paroxysmal (HCC) Intussusception (HCC) documented in this encounter Administered Medications Inactive Administered Medications - up to 3 most recent administrations Medication Order MAR Action Action Date Dose Rate Site HYDROmorphone injection 0.5 mg (DILAUDID) 0.5 mg, intravenous, Once, On Thu11/10/23 at 1352, For 1 dose Given 11/10/2023 2:07 PM CDT 0.5 mg iohexoL 300 mg iodine/mL solution 1-200 mL (OMNIPAQUE) 1-200 mL, intravenous, Once in imaging, contrast, Starting on Thu11/10/23 at 1249, For 1 dose, Imaging Protocol Orders, Dose per Radiant Medication Guidelines Given 11/10/2023 12:50 PM CDT 140 mL ketorolac injection 15 mg (TORADOL) 15 mg, intravenous, Once, On Thu11/10/23 at 1126, For 1 dose, Adult IV push rate: Over 15 seconds. Peds IV push rate: Over 1 minute. Doses > 15 mg IV/IM are discouraged due to lack of additional analgesic benefit. Given 11/10/2023 11:38 AM CDT 15 mg NaCl 0.9 % bolus 1,000 mL 1,000 mL, intravenous, at 1,000 mL/hr, Administer over 1 Hours, Once, On Thu11/10/23 at 1159, For 1 dose New Bag 11/10/2023 12:23 PM CDT 1,000 mL 1000 mL/hr sodium chloride 0.9 % flush 100 mL 100 mL, intravenous, Once in imaging, line care, for CT Exam, Starting on Thu11/10/23 at 1248, For 1 dose Given 11/10/2023 12:49 PM CDT 100 mL sodium chloride 0.9 % injection 10 mL 10 mL, intravenous, As needed, line care, Starting on Thu11/10/23 at 1125, Peripheral Intravenous Catheter and Rapid Infusion Catheter, prior to blood sampling, post blood transfusion or post blood sampling sodium chloride 0.9 % injection 10 mL 10 mL, intravenous, Once in imaging, line care, Starting on Thu11/10/23 at 1248, For 1 dose Given 11/10/2023 12:50 PM CDT 10 mL sodium chloride 0.9 % injection 2-10 mL 2-10 mL, intravenous, As needed, line care, Starting on Thu11/10/23 at 1125 sodium chloride 0.9 % injection 3 mL 3 mL, intravenous, As needed, line care, Starting on Thu11/10/23 at 1125, Prior to and following infusion and between multiple consecutive infusions: sodium chloride 0.9 % injection sodium chloride 0.9 % injection 3 mL 3 mL, intravenous, Every 12 hours scheduled, First dose on Thu11/10/23 at 2100, Peripheral Intravenous Catheter and Rapid Infusion Catheter, when no infusion to maintain patency documented in this encounter Active and Recently Administered Medications Times are shown in CDT. Scheduled Medication Order 11/08/2023 11/09/2023 11/10/2023 HYDROmorphone injection 0.5 mg (DILAUDID) (COMPLETED) 0.5 mg, intravenous, Once, On Thu11/10/23 at 1352, For 1 dose 1407 (Given - Provid er: Tenisha Cha R.N., MELY) ketorolac injection 15 mg (TORADOL) (COMPLETED) 15 mg, intravenous, Once, On Thu11/10/23 at 1126, For 1 dose, Adult IV push rate: Over 15 seconds. Peds IV push rate: Over 1 minute. Doses > 15 mg IV/IM are discouraged due to lack of additional analgesic benefit. 1138 (Given - Provid er: Rhonda Red R.N.) NaCl 0.9 % bolus 1,000 mL (COMPLETED) 1,000 mL, intravenous, at 1,000 mL/hr, Administer over 1 Hours, Once, On Thu11/10/23 at 1159, For 1 dose 1223 (New Bag - Prov ider: Rhonda Red R.N.)1420 (Stopped - Provider: Rhonda Red R.N.) sodium chloride 0.9 % injection 3 mL 3 mL, intravenous, Every 12 hours scheduled, First dose on Thu11/10/23 at 2100, Peripheral Intravenous Catheter and Rapid Infusion Catheter, when no infusion to maintain patency PRN Medication Order 11/08/2023 11/09/2023 11/10/2023 iohexoL 300 mg iodine/mL solution 1-200 mL (OMNIPAQUE) (COMPLETED) 1-200 mL, intravenous, Once in imaging, contrast, Starting on Thu11/10/23 at 1249, For 1 dose, Imaging Protocol Orders, Dose per Radiant Medication Guidelines 1250 (Given - Provid er: Shaan Rivero, R.T.(R)) sodium chloride 0.9 % flush 100 mL (COMPLETED) 100 mL, intravenous, Once in imaging, line care, for CT Exam, Starting on Thu11/10/23 at 1248, For 1 dose 1249 (Given - Provid er: Gabrielle Winters.T.(R)) sodium chloride 0.9 % injection 10 mL 10 mL, intravenous, As needed, line care, Starting on Thu11/10/23 at 1125, Peripheral Intravenous Catheter and Rapid Infusion Catheter, prior to blood sampling, post blood transfusion or post blood sampling sodium chloride 0.9 % injection 10 mL (COMPLETED) 10 mL, intravenous, Once in imaging, line care, Starting on Thu11/10/23 at 1248, For 1 dose 1250 (Given - Provid er: Shaan Rivero, R.T.(R)) sodium chloride 0.9 % injection 2-10 mL(Linked Group 1) 2-10 mL, intravenous, As needed, line care, Starting on Thu11/10/23 at 1125 sodium chloride 0.9 % injection 3 mL 3 mL, intravenous, As needed, line care, Starting on Thu11/10/23 at 1125, Prior to and following infusion and between multiple consecutive infusions: sodium chloride 0.9 % injection Linked Groups Order Group 1: Place peripheral IV: No upper extremity site restrictions (COMPLETED) Upper extremity site restriction: No upper extremity site restrictions, Quantity of PIVs requested: One, STAT, Once, On Thu11/10/23 at 1126, For 1 occurrence And sodium chloride 0.9 % injection 2-10 mLJump to med 2-10 mL, intravenous, As needed, line care, Starting on Thu11/10/23 at 1125 documented in this encounter Additional Health Concerns Assessment Noted Time PHQ-9 Depression Total Score: 7 07/30/19 24 4:37 PM PARLOR CHAPERONE documented as of this encounter Care Teams Emergency Services Dispatcher Relationship Specialty Start Date End Date Elsewhere, Pcp PCP - General Internal Medicine 08/18/23 documented as of this encounter
--- OUTSIDE RECORDS SUMMARY | 2023-11-30 08:37 | XMS_ITS | Encounter Summary ---
Author Organization [facility] Address [address] [place] [address] Care Team Providers Care Regional Planner Name Role Phone Belkys Mayer MD Primary Care Provider [phone] Encounter Details Date Type Department Care Team (Late st Contact Info) Description 02/08/2021 Lab Requisition [facility] [address] [facility] [place] [address] Azael Regan DO [address] [address] Unspecified atrial fibrillation (HRC) Social History Tobacco [...] Info) Description 12/09/2023 1:00 PM CDT Appointment [facility] [address] [place], [place] [address] [place] [address] [place] [address] Lachelle Velez, DO [address] [place] [address] 01/07/2024 11:20 AM CDT Appointment [facility] Medicine [address] [place], [place] [address] [place] [address] [place] [id number] documented as of this encounter Procedures Procedure Name Priority Date/Time Associated Diagnosis Comments INR/PROTIME Routine 02/14/2021 4:56 PM CDT Unspecified atrial fibrillation (HRC) documented in this encounter Results * (ABNORMAL) INR/Protime (02/14/2021 4:56 PM CDT) Protime 22.9(H) 11.8 - 14.6 Seconds 02/14/2021 7:53 PM CDT [facility] INR 2.1(H) 0.9 - 1.1 02/14/2021 7:53 PM CDT [facility] Blood Venipuncture / Unknown 02/14/2021 4:56 PM CDT 02/14/2021 7:23 PM CDT Narrative [facility] - 02/14/2021 7:53 PM CDT Therapeutic range determined by protocol established by anticoagulation provider. Azael Regan DO LAB_1 [facility] [address] [place] [address], [facility] documented in this encounter Visit Diagnoses Diagnosis Unspecified atrial fibrillation (HRC) documented in this encounter Care Teams Regional Planner Relationship Specialty [place] [address] [place] [address] PCP - General Urgent Care 11/19/23 documented as of this encounter
--- OUTSIDE RECORDS SUMMARY | 2023-11-30 08:37 | XMS_ITS | Encounter Summary ---
Author Organization [facility] Address [address] [place] [address] Care Team Providers Care Design Assembler Name Role Phone Belkys Mayer MD Primary Care Provider Encounter Details Date Type Department Care Team (Late st Contact Info) Description 02/28/2021 Lab Requisition [facility] [address] [facility] [place] [address] Azael Regan DO [address] [address] Unspecified atrial fibrillation (HRC) Social History Tobacco [...] Info) Description 12/09/2023 1:00 PM CDT Appointment [facility] [address] [place], [place] [address] [place] [address] [place] [address] Lachelle Velez, DO [address] [place] [address] 01/07/2024 11:20 AM CDT [facility] [address] [place] [address] [place] [address] [place] [address] documented as of this encounter Visit Diagnoses Diagnosis Unspecified atrial fibrillation (HRC) documented in this encounter Care Teams Design Assembler Relationship Specialty [place] [address] [place], [place] [id number] PCP - General Urgent Care 11/19/23 documented as of this encounter
--- OUTSIDE RECORDS SUMMARY | 2023-11-30 08:37 | XMS_ITS | Encounter Summary ---
Author Organization [facility] Address [address] [place] [address] Care Team Providers Care Cutting Machine Offbearer Name Role Phone Belkys Mayer MD Primary Care Provider [phone] Encounter Details Date Type Department Care Team (Late st Contact Info) Description 01/23/2021 Lab Requisition [facility] [address] [facility] [place] [address] Azael Regan DO [address] [address] Unspecified atrial fibrillation (HRC) Social History Tobacco [...] Info) Description 12/09/2023 1:00 PM CDT Appointment [facility] [address] [place], [place] [address] [place] [address] [place] [address] Lachelle Velez, DO [address] [place] [address] 01/07/2024 11:20 AM CDT Appointment [facility] [address] [place], [place] [address] [place] [address] [address] [place] [id number] documented as of this encounter Procedures Procedure Name Priority Date/Time Associated Diagnosis Comments INR/PROTIME Routine 2021 2:22 PM CDT Unspecified atrial fibrillation (HRC) documented in this encounter Results * (ABNORMAL) INR/Protime (2021 2:22 PM CDT) Protime 22.5(H) 11.8 - 14.6 Seconds 2021 5:08 PM CDT [facility] INR 2.0(H) 0.9 - 1.1 2021 5:08 PM CDT [facility] Blood Venipuncture / Unknown 2021 2:22 PM CDT 2021 4:34 PM CDT Narrative [facility] - 2021 5:08 PM CDT Therapeutic range determined by protocol established by anticoagulation provider. Azael Regan DO LAB_1 [facility] [address] [place] [address], [facility] documented in this encounter Visit Diagnoses Diagnosis Unspecified atrial fibrillation (HRC) documented in this encounter Care Teams Cutting Machine Offbearer Relationship Specialty [place] [address] [place] [address] PCP - General Urgent Care 11/19/23 documented as of this encounter
--- OUTSIDE RECORDS SUMMARY | 2023-11-30 08:37 | XMS_ITS | Encounter Summary ---
Author Organization [facility] Address [address] [place] [address] Care Team Providers Care Engineering Drafter Name Role Phone Belkys Mayer MD Primary Care Provider [phone] Encounter Details Date Type Department Care Team (Late st Contact Info) Description 03/22/2021 Lab Requisition [facility] [address] [facility] [place] [address] Azael Regan DO [address] [address] Unspecified atrial fibrillation (HRC) Social History Tobacco [...] Info) Description 12/09/2023 1:00 PM CDT Appointment [facility] [address] [place], [place] [address] [place] [address] [place] [address] Lachelle Velez, DO [address] [place] [address] 01/07/2024 11:20 AM CDT Appointment [facility] Medicine [address] [place], [place] [address] [place] [address] [place] [address] documented as of this encounter Procedures Procedure Name Priority Date/Time Associated Diagnosis Comments INR/PROTIME Routine 04/04/2021 10:15 AM CDT Unspecified atrial fibrillation (HRC) documented in this encounter Results * (ABNORMAL) INR/Protime (04/04/2021 10:15 AM CDT) Protime 24.7(H) 11.8 - 14.6 Seconds 04/04/2021 1:30 PM CDT [facility] INR 2.3(H) 0.9 - 1.1 04/04/2021 1:30 PM CDT [facility] Blood Venipuncture / Unknown 04/04/2021 10:15 AM CDT 04/04/2021 1:04 PM CDT Narrative [facility] - 04/04/2021 1:30 PM CDT Therapeutic range determined by protocol established by anticoagulation provider. Azael Regan DO LAB_1 [facility] [address] [place] [address], [facility] documented in this encounter Visit Diagnoses Diagnosis Unspecified atrial fibrillation (HRC) documented in this encounter Care Teams Engineering Drafter Relationship Specialty [place] [address] [place] [address] PCP - General Urgent Care 11/19/23 documented as of this encounter
--- OUTSIDE RECORDS SUMMARY | 2023-11-30 08:37 | XMS_ITS | Encounter Summary ---
Author Organization [facility] Address [address] [place] [address] Care Team Providers Care Data Report Analyst Name Role Phone Belkys Mayer MD Primary Care Provider [phone] Encounter Details Date Type Department Care Team (Late st Contact Info) Description 12/16/2020 Lab Requisition [facility] [address] [facility] 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
--- OUTSIDE RECORDS SUMMARY | 2023-11-30 08:37 | XMS_ITS | Encounter Summary ---
Author Organization [facility] Address [address] [place] [address] Care Team Providers Care School Bus Aide Name Role Phone Belkys Mayer MD Primary Care Provider [phone] Encounter Details Date Type Department Care Team (Late st Contact Info) Description 04/10/2021 Lab Requisition [facility] [address] [facility] [place] [place] [address] Azael Regan DO [address] [address] Unspecified atrial fibrillation (HRC) Social History Tobacco [...] Info) Description 12/09/2023 1:00 PM CDT Appointment [facility] [address] [place], [place] [address] [place] [address] [place] [id number] Lachelle Velez, DO [address] [place] [address] 01/07/2024 11:20 AM CDT [facility] [address] [place] [address] [place] [address] [place] [id number] documented as of this encounter Visit Diagnoses Diagnosis Unspecified atrial fibrillation (HRC) documented in this encounter Care Teams School Bus Aide Relationship Specialty [place] [address] [place], [place] [phone] PCP - General Urgent Care 11/19/23 documented as of this encounter
--- OUTSIDE RECORDS SUMMARY | 2023-11-30 08:37 | XMS_ITS | Encounter Summary ---
Author Organization [facility] Address [address] [place] [address] Care Team Providers Care Transmission Calibration Engineer Name Role Phone Belkys Mayer MD Primary Care Provider [phone] Encounter Details Date Type Department Care Team (Late st Contact Info) Description 10/01/2020 Lab Requisition [facility] [address] [place] [address] Azael Regan, [address] [address] Personal history of transient ischemic attack (TIA), [...] Info) Description 12/09/2023 1:00 PM CDT Appointment [facility] [address] [place] [address] [place] [address] [place] [address] Lachelle Velez, DO [address] [place] [address] 01/07/2024 11:20 AM CDT Appointment [facility] [address] [facility] [place] [address] [place] [address] [place] [id number] documented as of this encounter Procedures Procedure Name Priority Date/Time Associated Diagnosis Comments INR/PROTIME Routine 10/02/2020 9:30 AM CDT Personal history of transient ischemic attack (TIA), and cerebral infarction without residual deficits documented in this encounter Results * (ABNORMAL) INR/Protime (10/02/2020 9:30 AM CDT) Protime 21.2(H) 11.8 - 14.6 Seconds 10/02/2020 12:30 PM CDT [facility] INR 1.9(H) 0.9 - 1.1 10/02/2020 12:30 PM CDT [facility] Blood Venipuncture / Unknown 10/02/2020 9:30 AM CDT 10/02/2020 11:56 AM CDT Narrative [facility] - 10/02/2020 12:30 PM CDT Therapeutic range determined by protocol established by anticoagulation provider. Azael Regan DO LAB_1 [facility] [address] [place] [address], [facility] documented in this encounter Visit Diagnoses Diagnosis Personal history of transient ischemic attack (TIA), and cerebral infarction without residual deficits documented in this encounter Care Teams Transmission Calibration Engineer Relationship Specialty [place] [address] [place] [address] PCP - General Urgent Care 11/19/23 documented as of this encounter
--- OUTSIDE RECORDS SUMMARY | 2023-11-30 08:37 | XMS_ITS | Encounter Summary ---
Author Organization [facility] Address [address] [place] [address] Care Team Providers Care Special Forces Warrant Officer Name Role Phone Aleksey Smith MD Primary Care Provider [phone] Reason for Visit * Reason Comments Injection Encounter Details Date Type Department Care Team (Late st Contact Info) Description 09/10/2023 Telephone [id number] [facility] [address] [facility] [place], [place] [id number] [place] [address] [place] [id number] Injection Social History Tobacco Use Types Packs/Day [...] AM CDT Spoke to nurse Quintero at [facility] whom gave approval to hold [...] asked to have the nurse contacted at [facility] to advise about holding medication and INR draw. Faxed over to [facility] nurse Lis * Sarah Guerrero RN - 09/14/2023 2:26 PM CDT Called over to [facility] Hotline: [phone] to discuss if we can hold Warfarin [...] Info) Description 12/09/2023 1:00 PM CDT Appointment [facility] [address] [facility] [place] [address] Mehrdad Torrez, [address] [place] [place] [address] Lachelle Velez, DO [address] [place] [address] 01/07/2024 11:20 AM CDT Appointment [facility] [address] [place] [address] [place] [address] [place] [address] documented as of this encounter Visit Diagnoses Not on filedocumented in this encounter Care Teams Special Forces Warrant Officer Relationship Specialty Start Date End Date Aleksey Smith MD [address] [place] [address] PCP - General 02/09/13 11/18/23 documented as of this encounter
--- OUTSIDE RECORDS SUMMARY | 2023-11-30 08:37 | XMS_ITS | Encounter Summary ---
Author Organization [facility] Address [address] [place] [address] Care Team Providers Care Retail Marketing Manager Name Role Phone Belkys Mayer MD Primary Care Provider [phone] Encounter Details Date Type Department Care Team (Late st Contact Info) Description 03/28/2021 Lab Requisition [facility] [address] [facility] [place] [address] Azael Regan DO [address] [address] Unspecified atrial fibrillation (HRC) Social History Tobacco [...] Info) Description 12/09/2023 1:00 PM CDT Appointment [facility] [address] [place], [place] [address] [place] [address] [place] [address] Lachelle Velez, DO [address] [place] [address] 01/07/2024 11:20 AM CDT Appointment [facility] [address] [place], [place] [address] [place] [address] [address] [place] [address] documented as of this encounter Procedures Procedure Name Priority Date/Time Associated Diagnosis Comments INR/PROTIME Routine 04/02/2021 1:40 PM CDT Unspecified atrial fibrillation (HRC) documented in this encounter Results * (ABNORMAL) INR/Protime (04/02/2021 1:40 PM CDT) Protime 23.5(H) 11.8 - 14.6 Seconds 04/02/2021 4:52 PM CDT [facility] INR 2.2(H) 0.9 - 1.1 04/02/2021 4:52 PM CDT [facility] Blood Venipuncture / Unknown 04/02/2021 1:40 PM CDT 04/02/2021 4:14 PM CDT Narrative [facility] - 04/02/2021 4:52 PM CDT Therapeutic range determined by protocol established by anticoagulation provider. Azael Regan DO LAB_1 [facility] [address] [place] [address], [facility] documented in this encounter Visit Diagnoses Diagnosis Unspecified atrial fibrillation (HRC) documented in this encounter Care Teams Retail Marketing Manager Relationship Specialty [place] [address] [place] [address] PCP - General Urgent Care 11/19/23 documented as of this encounter
--- OUTSIDE RECORDS SUMMARY | 2023-11-30 08:37 | XMS_ITS | Encounter Summary ---
Author Organization [facility] Address [address] [place] [address] Care Team Providers Care Neuropsychiatric Aide Name Role Phone Belkys Mayer MD Primary Care Provider [phone] Encounter Details Date Type Department Care Team (Late st Contact Info) Description 03/22/2021 Lab Requisition [facility] [address] [place] [address] Azael Regan DO [address] [address] Unspecified atrial fibrillation (HRC) Social History Tobacco [...] Info) Description 12/09/2023 1:00 PM CDT Appointment [facility] [address] [place], [place] [address] [place] [address] [place] [address] Lachelle Velez, DO 3800 [place] [address] 01/07/2024 11:20 AM CDT Appointment [facility] [address] [place] [address] [place] [address] [place] [address] Scheduled Orders Name Type Priority Associated Diagnoses Orde r Schedule INR/Protime Lab Routine Unspecified atrial fibrillation (HRC) Ordered: 03/22/2021 documented as of this encounter Visit Diagnoses Diagnosis Unspecified atrial fibrillation (HRC) documented in this encounter Care Teams Neuropsychiatric Aide Relationship Specialty [place] [address] [place] [address] PCP - General Urgent Care 11/19/23 documented as of this encounter
--- OUTSIDE RECORDS SUMMARY | 2023-11-30 08:37 | XMS_ITS | Encounter Summary ---
Author Organization [facility] Address [address] [place] [address] Care Team Providers Care Research Assoc Name Role Phone Belkys Mayer MD Primary Care Provider [phone] Encounter Details Date Type Department Care Team (Late st Contact Info) Description 03/22/2021 Lab Requisition [facility] [address] [facility] [place] [address] Azael Regan DO [address] [address] Unspecified atrial fibrillation (HRC) Social History Tobacco [...] Info) Description 12/09/2023 1:00 PM CDT Appointment [facility] [address] [place], [place] [address] [place] [address] [place] [address] Lachelle Velez, DO 3800 [place] [address] 01/07/2024 11:[address] [facility] [address] [place] [address] [place] [address] [place] [address] documented as of this encounter Visit Diagnoses Diagnosis Unspecified atrial fibrillation (HRC) documented in this encounter Care Teams Research Assoc Relationship Specialty [place] [address] [place], [place] [id number] PCP - General Urgent Care 11/19/23 documented as of this encounter
--- OUTSIDE RECORDS SUMMARY | 2023-11-30 08:37 | XMS_ITS | Encounter Summary ---
[facility] Address [address] [place] [address] Care Team Providers Care Butter Maker Name Role Phone Aleksey Smith MD Primary Care Provider [phone] Reason for Referral * (Routine) - New Request Specialty Diagnoses / Procedures Referred By Katina ribera Referred To Contact Diagnoses Myofascial pain Procedures Betamethasone Ac[place] [address] [place] [address] Referral ID Status Reason Start Date Expiration Date V isits Requested Visits Authorized [id number] New Request 10/05/2023 01/03/2025 1 1 Reason for Visit * Reason Comments Follow-up TPI Encounter Details Date Type Department Care Team (Late st Contact Info) Description 10/05/2023 12:30 PM CDT Office Visit [facility] [address] [place], [place] 68[address] [place] [address] [address] [place] [id number] Myofascial pain (Primary Dx); Lumbar radiculopathy; Chronic [...] pain clinic consult scheduled. This is in [facility]. 3. She also has a epidural injections [...] of a spinal cord stimulator placed by [facility] in May of 2020. This is not [...] pain clinic consult scheduled. This is in [facility]. 3. She also has a epidural injections [...] Info) Description 12/09/2023 1:00 PM CDT Appointment [facility] [address] [place] [address] [place] [address] [place] [address] Lachelle Velez, DO [address] [place] [address] 01/07/2024 11:20 AM CDT Appointment [facility] [address] [facility] [place] [address] [place] [address] [place] [address] documented as of this encounter Visit Diagnoses Diagnosis Myofascial pain- Primary Mylagia and myositis, unspecified Lumbar radiculopathy Thoracic or lumbosacral neuritis or radiculitis, unspecified 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
--- OUTSIDE RECORDS SUMMARY | 2023-11-30 08:37 | XMS_ITS | Encounter Summary ---
Author Organization [facility] Address [address] [place] [address] Care Team Providers Care Poultry Hanger Name Role Phone Belkys Mayer MD Primary Care Provider [phone] Encounter Details Date Type Department Care Team (Late st Contact Info) Description 02/05/2021 Lab Requisition [facility] [address] [facility] [place] [address] Azael Regan, [address] [address] Acute embolism and thrombosis of unspecified deep [...] Info) Description 12/09/2023 1:00 PM CDT Appointment [facility] [address] [place] [address] [place] [address] [place] [address] Lachelle Velez, DO 3800 [place] [address] 01/07/2024 11:20 AM CDT Appointment [facility] [address] [facility] [place] [address] [place] [address] [place] [id number] documented as of this encounter Procedures Procedure [...] provider. Azael Regan DO LAB_1 [facility] [address] [place] [address], [facility] documented in this encounter Visit Diagnoses Diagnosis Acute embolism and thrombosis of unspecified deep veins of right lower extremity (HRC) documented in this encounter Care Teams Poultry Hanger Relationship Specialty [place] [address] [place] [address] PCP - General Urgent Care 11/19/23 documented as of this encounter
--- OUTSIDE RECORDS SUMMARY | 2023-11-30 08:37 | XMS_ITS | Encounter Summary ---
Author Organization [facility] Address [address] [place] [address] Care Team Providers Care Formal Wear Rental Clerk Name Role Phone Belkys Mayer MD Primary Care Provider [phone] Encounter Details Date Type Department Care Team (Late st Contact Info) Description 2020 Lab Requisition [facility] [address] [facility]. [place], [place] [address] Adams Regan MD [address] [facility] [address] [place], [place] [address] Neoplasm of uncertain behavior of urethra Social [...] Info) Description 12/09/2023 1:00 PM CDT Appointment [facility] [address] [place] [address] [place] [address] [place] [address] Lachelle Velez, DO 3800 [place] [address] 01/07/2024 11:20 AM CDT Appointment [facility] [address] [place] [address] [place] [address] [place] [address] documented as of this encounter Visit Diagnoses Diagnosis Neoplasm of uncertain behavior of urethra Neoplasm of uncertain behavior of other and unspecified urinary organs documented in this encounter Care Teams Formal Wear Rental Clerk Relationship Specialty [place] [address] [place] [address] PCP - General Urgent Care 11/19/23 documented as of this encounter
--- OUTSIDE RECORDS SUMMARY | 2023-11-30 08:37 | XMS_ITS | Encounter Summary ---
Author Organization [facility] Address [address] [place] [address] Care Team Providers Care Poultry Pinner Name Role Phone Belkys Mayer MD Primary Care Provider [phone] Encounter Details Date Type Department Care Team (Late st Contact Info) Description 03/04/2021 Lab Requisition [facility] [address] [place] [address] Azael Regan DO [address] [address] Unspecified atrial fibrillation (HRC) Social History Tobacco [...] Info) Description 12/09/2023 1:00 PM CDT Appointment [facility] [address] [place], [place] [address] [place] [address] [place] [address] Lachelle Velez, DO 3800 [place] [address] 01/07/2024 11:20 AM CDT [facility] [address] [place] [address] [place] [address] [place] [address] documented as of this encounter Visit Diagnoses Diagnosis Unspecified atrial fibrillation (HRC) documented in this encounter Care Teams Poultry Pinner Relationship Specialty [place] [address] [place], [place] [id number] PCP - General Urgent Care 11/19/23 documented as of this encounter
--- OUTSIDE RECORDS SUMMARY | 2023-11-30 08:37 | XMS_ITS | Encounter Summary ---
Author Organization [facility] Address [address] [place] [address] Care Team Providers Care Cement Tester Assistant Name Role Phone Aleksey Smith MD Primary Care Provider [phone] Reason for Referral * (Routine) - New Request Specialty Diagnoses / Procedures Referred By Katina ribera Referred To Contact Diagnoses Myofascial pain Procedures Betamethasone Acet&[place] [address] [place] [address] Referral ID Status Reason Start Date Expiration Date V isits Requested Visits Authorized [id number] New Request 09/03/2023 12/02/2024 1 1 * Procedure/Equipment (Routine) - Authorized Specialty Diagnoses / Procedures Referred By Katina ribera Referred To Contact Diagnoses Neuroforaminal stenosis of lumbar spine Lumbar radiculopathy Procedures FL Spinal Injection For Pain [place] [address] [place] [address] Referral ID Status Reason Start Date Expiration Date V isits Requested Visits Authorized [id number] Authorized 09/03/2023 12/02/2024 1 1 Reason for Visit * Reason Comments Follow-up TPIs Encounter Details Date Type Department Care Team (Latest Contact Info) Description 09/03/2023 1:40 PM CDT Office Visit [facility] [address] [place] [address] Mehrdad Torrez, [address] [facility] [place] [address] Neuroforaminal stenosis of lumbar spine (Primary Dx); [...] of a spinal cord stimulator placed by [facility] in May of 2020. This is [...] Info) Description 12/09/2023 1:00 PM CDT Appointment [facility] [address] [place], [place] [address] [place] [address] [place], [place] [address] Lachelle Velez DO 3800 [place] [address] 01/07/2024 11:20 AM CDT Appointment [facility] [address] [place], [place] [address] [place] [address] [address] [place], [place] [address] Scheduled Orders Name Type Priority Associated Diagnoses [...] (HRC) documented in this encounter Care Teams Cement Tester Assistant Relationship Specialty Start Date End Date Aleksey Smith MD [address] [place] [address] PCP - General 02/09/13 11/18/23 documented as of this encounter
--- OUTSIDE RECORDS SUMMARY | 2023-11-30 08:37 | XMS_ITS | Encounter Summary ---
Author Organization [facility] Address [address] [place] [address] Care Team Providers Care Shipping And Receiving Clerk Name Role Phone Belkys Mayer MD Primary Care Provider [phone] Encounter Details Date Type Department Care Team (Late st Contact Info) Description 03/26/2021 Lab Requisition [facility] [address] [facility] [place] [address] Azael Regan, [address] [address] Vitamin D deficiency, unspecified Social History Tobacco [...] Info) Description 12/09/2023 1:00 PM CDT Appointment [facility] [address] [place] [address] [place] [address] [place] [address] Lachelle Velez, DO 3800 [place] [address] 01/07/2024 11:20 AM CDT Appointment [facility] [address] [place], [place] [address] Mehrdad Torrez, [address] [place] [address] documented as of this encounter Visit Diagnoses Diagnosis Vitamin D deficiency, unspecified (HRC) documented in this encounter Care Teams Shipping And Receiving Clerk Relationship Specialty [place] [address] [place], [place] [phone] PCP - General Urgent Care 11/19/23 documented as of this encounter
--- OUTSIDE RECORDS SUMMARY | 2023-11-30 08:37 | XMS_ITS | Encounter Summary ---
Author Organization [facility] Address [address] [place] [address] Care Team Providers Care Graduating Machine Operator Name Role Phone Aleksey Smith MD Primary Care Provider [phone] Reason for Visit * Procedure/Equipment (Routine) - Incomplete Specialty Diagnoses / Procedures Referred By Contac t Referred To Contact Diagnoses Lumbar pain Thoracic spine pain (HRC) Procedures XR Scoliosis 2 Views Rodolfo Mccormick MD [address] [facility] [address] [place] [address] Referral ID Status Reason Start Date Expiration Date V isits Requested Visits Authorized [id number] Incomplete 08/27/2023 11/25/2024 1 1 Encounter Details Date Type Department Care Team (Latest Contact Info) Description 09/03/2023 2:35 PM CDT Ancillary Procedure [facility] [address] Radiology [address] [place] [address] Rodolfo Mccormick MD [address] [facility] [address] [place] [address] Lumbar pain; Thoracic spine pain [...] Info) Description 12/09/2023 1:00 PM CDT Appointment [place] [facility] [address] [place] [address] [place] [address] [place] [address] Lachelle Velez, DO 3800 [place] [address] 01/07/2024 11:20 AM CDT Appointment [facility] [address] [place] [address] [place] [address] [place] [address] documented as of this encounter Procedures Procedure [...] spine documented in this encounter Care Teams Graduating Machine Operator Relationship Specialty Start Date End Date Aleksey Smith MD [address] [place] [address] PCP - General 02/09/13 11/18/23 documented as of this encounter
--- OUTSIDE RECORDS SUMMARY | 2023-11-30 08:37 | XMS_ITS | Encounter Summary ---
Author Organization [facility] Address [address] [place] [address] Care Team Providers Care Housing Specialist Name Role Phone Belkys Mayer MD Primary Care Provider [phone] Encounter Details Date Type Department Care Team (Late st Contact Info) Description 03/20/2021 Lab Requisition [facility] [address] [facility] [place] [address] Azael Regan DO [address] [address] Unspecified atrial fibrillation (HRC) Social History Tobacco [...] Info) Description 12/09/2023 1:00 PM CDT Appointment [facility] [address] [place], [place] [address] [place] [address] [place] [address] Lachelle Velez, DO 3800 [place] [address] 01/07/2024 11:20 AM CDT Appointment [facility] [address] [place], [place] [address] [place] [address] [address] [place] [address] documented as of this encounter Procedures Procedure Name Priority Date/Time Associated Diagnosis Comments INR/PROTIME Routine 03/21/2021 2:17 PM CDT Unspecified atrial fibrillation (HRC) documented in this encounter Results * (ABNORMAL) INR/Protime (03/21/2021 2:17 PM CDT) Protime 16.0(H) 11.8 - 14.6 Seconds 03/21/2021 8:34 PM CDT [facility] INR 1.3(H) 0.9 - 1.1 03/21/2021 8:34 PM CDT [facility] Blood Venipuncture / Unknown 03/21/2021 2:17 PM CDT 03/21/2021 7:58 PM CDT Narrative [facility] - 03/21/2021 8:34 PM CDT Therapeutic range determined by protocol established by anticoagulation provider. Azael Regan DO LAB_1 [facility] [address] [place] [address], [facility] documented in this encounter Visit Diagnoses Diagnosis Unspecified atrial fibrillation (HRC) documented in this encounter Care Teams Housing Specialist Relationship Specialty [place] [address] [place] [address] PCP - General Urgent Care 11/19/23 documented as of this encounter
--- OUTSIDE RECORDS SUMMARY | 2023-11-30 08:37 | XMS_ITS | Encounter Summary ---
Author Organization [facility] Address [address] [place] [address] Care Team Providers Care Barrel Lapper Name Role Phone Belkys Mayer MD Primary Care Provider [phone] Encounter Details Date Type Department Care Team (Late st Contact Info) Description 02/07/2003 [facility] Duglas Murray MD [address] [place] [address] [id number] BRIEF PSYCHOTIC DISORDER; AMPHETAMINE ABUSE UNSPECIFIED; SPECIAL [...] outpatient psychiatric medication management follow up at [facility] in [place], has been set for 02/22/2003, at 11:[address] Berkowitz. Cfp PATIENT IDENTIFICATION: The patient presents as a 43-year-old female admitted via [facility] emergency department on 02/07/03. The patient presents with continual symptoms of psychosis, not taking current medications, history of treatment for psychosis. She originally presented to [place]. Per the patient's brother, the [...] HOSPITAL COURSE: The patient is admitted to [address] on 02/07/03 via the emergency department. She originally presented at the [place] urgent [facility]. She has been paranoid, fearing [...] prior to admission by a psychiatrist in [place], but compliance has been poor. She denies medical problems but does admit to hypertension. She has not been working since October but looking for a job. Medications are ordered, including Zoloft and Seroquel. Lasix and atenolol are also ordered. A chemical dependency evaluation is ordered, with consequent recommendations for chemical dependency treatment at [facility] post discharge from the hospital. The patient [...] process. She feels good about discharge to [facility] on this date. She has been very reasonable on the unit, getting clean, arranging her own followup appointments, less hostile, interacting with family members. On 02/14/03, the patient's discharge is approved. She will be entering chemical dependency at [facility] to have outpatient psychiatric medication management follow up via an [facility] behavioral health clinic in [place]. The patient is arranging this follow up. DISCHARGE DIAGNOSIS Aurora I: Major depressive disorder. Polysubstance chemical dependency. Aurora II: Borderline personality disorder. Aurora III: History of hypertension, status post gastric bypass in August 2002. Aurora IV: Moderate psychosocial stressors. Aurora V: Global assessment of functioning is 51/100. [...] The patient is approved for discharge from [address] on 02/14/03. She will be entering chemical dependency treatment at [facility] on the date of discharge. She will have outpatient psychiatric medication management and outpatient therapy follow up via an [facility] health clinic at [place]. The patient is arranging this followup appointment herself. An addendum will be done to the discharge summary if the patient is able to give the name of the clinic for follow up prior to her discharge. llc Dictated: 02/14/2003 09:02:06 Champ Christianson MA, Transcribed: 02/14/2003 09:12:52 Staff: Duglas Murray MD Doc #: [id number] cc: Duglas Murray MD - Attending Dr Berkowitz, [facility] Page 2 Patient Name: HUGO GARCES DISCHARGE SUMMARY CONFIDENTIAL MEDICAL RECORD [address] [id number] Page 1 Patient: HUGO GARCES Location: [facility] HPN: Admit Date: 02/07/2003 Date of : [...] approximately 10 days ago by psychiatrist in [place], but compliance poor. Denies current medical problems, but does admit to hypertension. Not working since October, but looking for a job. Wants to be able to cope. ADMISSION DIAGNOSES Aurora I. Depression, not otherwise specified. 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 History of polysubstance abuse. Rule out panic disorder. Aurora II. Deferred. Aurora III. History of hypertension. Status post gastric bypass 08/2002. Aurora IV. Moderate psychosocial stressors. Aurora V. Overall Global Assessment of Functioning 25 [...] Chemical dependency consultation is ordered. [id number] [facility] HISTORY/PRESENTING ILLNESS: The patient presents as a 43-year-old female admitted via [facility] Emergency Department on 02/07/2003. Patient presents with continual symptoms of psychosis, not taking current medications, history of treatment for psychosis. Blood alcohol level in the emergency department was 0.1. Patient originally presented to [facility]. Per patient's brother, the patient [...] She had one chemical dependency treatment in [place] 5-6 years ago as an inpatient x 28 days. PAST PSYCHIATRIC HISTORY: She has seen a psychiatrist in [place], but does not remember the name. She does not have a current therapist. She was at [facility], hospitalized psychiatrically 5-6 years ago, most recently on 4 from 06/25/2001 to 06/30/2001 with a diagnosis of psychosis, not otherwise specified, and amphetamine dependence. No history for ECT. Past medications have included Neurontin, atenolol, Lasix, and albuterol inhaler. PAST MEDICAL HISTORY: She cites the [facility] as her outpatient provider. She [...] mg and Ativan 2 mg at the [facility] prior to admission. The Risperdal was prescribed by a psychiatrist at [place]. Nonprescription medications/dietary supplements: None. REVIEW OF SYSTEMS: Remarkable for a history of gastritis. Remarkable for a history of asthma, currently stable. Status post gastric bypass in 08/2002. FAMILY HISTORY: Unremarkable except for a history of diabetes and hypertension in the family. SOCIAL HISTORY: Patient is the 3rd out of 6 children. She has 3 brothers and 2 sisters. She was raised in [place], [place], by her parents. Her father of a myocardial infarction in 01/2000. She is a high school graduate with one year of [employer] training. She is unemployed. She is a [...] at 21. ASSESSMENT: This is the second [facility] psychiatric admission for this 43-year-old female, most recently at [address] from 06/25/2001 to 06/30/2001 with diagnoses of psychosis, not otherwise specified, and amphetamine dependence. She currently presents via [facility] Emergency Department, originally presenting at the [facility]. Patient has been paranoid, fearing that people are after her, positive auditory hallucinations, specifically whispers stating you're . She has a remote history of cocaine usage, current methamphetamine use, and alcohol consumption when using methamphetamines. She has been seeing at times a psychiatrist in [place], most currently on Risperdal in the past 11/2 weeks. Patient did use alcohol prior to her admission. She is voluntary. PLAN: The patient is admitting to station [facility]. Routine safety precautions have been placed and will be discontinued as appropriate. Routine labs and psychological testing will be done. Patient education is done with regards to wetson expectations, differential diagnosis and treatment options. Risks, benefits, and side effects of medications are reviewed with her. mf/trayf Dictated: 02/07/2003 08:03:00 Champ Christianson MA, MATY Transcribed: 02/07/2003 10:34:13 Duglas Murray MD Doc #: [id number] cc: Duglas Murray MD 2 Page 2 Patient Name: HUGO GARCES HISTORY & PHYSICAL CONFIDENTIAL MEDICAL RECORD [address] [id number] Page 1 Patient: HUGO GARCES Location: [facility] HPN: Admit Date: 02/07/2003 Date of : 1960 HISTORY & PHYSICAL documented in this encounter ED Notes * Rhett Fink - 02/07/2003 12:00 AM CDTLog Number: [id number] COMPLAINT: Agitated. HISTORY OF PRESENT ILLNESS: The patient is a 43-year-old female who presented to the [facility] with paranoid behavior and agitated. She [...] DEPARTMENT COURSE AND TREATMENT MANAGEMENT: I contacted [facility] who sent the patient here. The physician there states that the patient was acutely psychotic on arrival. She came with her daughters who brought her in. She has had a history of similar episodes due to amphetamine abuse here at [facility] on 06/2001. The patient also had an episode in the baggagemaster rig of outburst of psychosis. On arrival here she has been somewhat somnolent. She is arousable at the time of admission. She is able to walk and she is alert and oriented. Will go ahead and admit her to the hospital for further evaluation as she has been on some antipsychotic medications in the past and according to the family and the social service worker I talked to, has not been taking them. The U-tox is positive for amphetamines. ADMISSION DIAGNOSES: 1. Psychosis NOS. 2. Amphetamine abuse. [facility] Dictated: 02/07/2003 06:55:19 Rhett Fink MD Transcribed: 02/07/2003 13:13:48 Staff: Doc #: [id number] cc: Duglas Murray MD Attending Page 2 Patient Name: HUGO GARCES Visit Date: 02/07/2003 EMERGENCY MEDICINE NOTE CONFIDENTIAL MEDICAL RECORD [address] [address] Page 1 Patient: HUGO GARCES Location: 5 HPN: Date of : 1960 Visit Date: 02/07/2003 EMERGENCY MEDICINE NOTE documented in this encounter Plan of Treatment Upcoming Encounters Date Type Department Care Team (Late st Contact Info) Description 12/09/2023 1:00 PM CDT Appointment [facility] [address] [place] [address] [place] [address] [place] [address] Lachelle Velez, DO [address] [place] [address] 01/07/2024 11:20 AM CDT Appointment [facility] [address] [place] [address] [place] [address] [place] [address] documented as of this encounter Visit Diagnoses Diagnosis Other and unspecified reactive psychosis Nondependent amphetamine or related acting sympathomimetic abuse, unspecified Other and unspecified special symptom or syndrome, not elsewhere classified Personal history of noncompliance with medical treatment, presenting hazards to health documented in this encounter Care Teams Barrel Lapper Relationship Specialty [place] [address] [place] [address] PCP - General Urgent Care 11/19/23 documented as of this encounter
--- OUTSIDE RECORDS SUMMARY | 2023-11-30 08:37 | XMS_ITS | Encounter Summary ---
Author Organization [facility] Address [address] [place] [address] Care Team Providers Care Blow Pit Operator Name Role Phone Belkys Mayer MD Primary Care Provider [phone] Encounter Details Date Type Department Care Team (Late st Contact Info) Description 02/22/2021 Lab Requisition [facility] [address] [facility] [place] [address] Azael Regan DO [address] [address] Unspecified atrial fibrillation (HRC) Social History Tobacco [...] Info) Description 12/09/2023 1:00 PM CDT Appointment [facility] [address] [place], [place] [address] [place] [address] [place] [address] Lachelle Velez, DO [address] [place] [address] 01/07/2024 11:20 AM CDT [facility] [address] [place] [address] [place] [address] [place] [address] documented as of this encounter Visit Diagnoses Diagnosis Unspecified atrial fibrillation (HRC) documented in this encounter Care Teams Blow Pit Operator Relationship Specialty [place] [address] [place], [place] [id number] PCP - General Urgent Care 11/19/23 documented as of this encounter
--- OUTSIDE RECORDS SUMMARY | 2023-11-30 08:38 | XMS_ITS | Clinical Summary ---
Author Organization [facility] Address [address] [place] [address] Care Team Providers Care Body Sander Name Role Phone José Celia Garcia MD Unavailable [phone] Charan Corbin MD Unavailable [phone] Adams Barrera Primary Care Provider [phone] Deborah Walsh MD Unavailable Greta Thao APRN METAL FURNITURE POLISHER Unavailable [phone] Greta Thao APRN METAL FURNITURE POLISHER Unavailable [phone] Allergies Active Allergy Reactions Criticality Noted Date [...] Status torsemide 20 MG PO tablet Take 20 mg by mouth daily 04/25/20 19 Active nystatin 923667 UNIT/GM EX external powder Apply topically 2 times daily as needed for dry skin 03/19/20 19 Active SM GAS RELIEF EXTRA STRENGTH 125 MG PO CAPSIndications:F latulence Take 1 capsule by mouth 4 times daily as needed 07/15/19 20 Active albuterol (VENTOLIN HFA) 108 (90 Base) MCG/ACT IN inhaler Inhale 2 puffs into the lungs every 6 hours as needed 01/03/20 19 Active atorvastatin 40 MG PO tablet Take 40 mg by mouth At Bedtime 01/30/20 19 Active azelastine 0.1 % NA nasal sprayIndications: allergies Udall 1 spray into both nostrils 2 times daily 02/18/20 16 Active fluticasone (FLONASE) 50 MCG/ACT nasal spray Udall 1 spray into both nostrils 2 times daily 02/08/20 20 Active Incontinence Supply Disposable (DEPEND FITTED BRIEFS SM/MED) MISC For home use. Will use 2 per day. Size large. 04/28/20 18 Active fluticasone-salme terol (ADVAIR) 250-50 MCG/DOSE inhalerIndication s:Asthma Inhale 1 puff into the lungs 2 times daily 12/15/19 21 Active loratadine (CLARITIN) 10 MG tablet Take 10 mg by mouth every morning 01/26/20 21 Active sertraline (ZOLOFT) 100 MG tablet Take 200 mg by mouth every morning 01/26/20 21 Active ipratropium - albuterol 0.5 mg/2.5 mg/3 mL (DUONEB) 0.5-2.5 (3) MG/3ML neb solution Take 1 vial by nebulization 2 times daily 02/26/20 21 Active SUMAtriptan (IMITREX) 50 MG tablet Take 50 mg by mouth at onset of headache for migraine May repeat x1 in 2 hours if needed. 06/10/19 Active zolpidem (AMBIEN) 5 MG tablet Take 5 mg by mouth At Bedtime 06/17/19 Active polyethylene glycol (MIRALAX) 17 g packet Take 1 packet by mouth every morning Active senna-docusate (SENOKOT-S/MARGARET LACE) 8.6-50 MG tablet Take 1 tablet by mouth 2 times daily Active ondansetron (ZOFRAN-ODT) [address] 4 mg under the tongue every 8 hours as needed for nausea Active buprenorphine HCl-naloxone HCl (SUBOXONE) 8-[address] 1 Film under the tongue every morning Active ketoconazole (NIZORAL) 2 % external shampoo Apply topically three times a week Wash affected areas on body and chest three times weekly. Lather and let sit 3-5 minutes before rinsing. Active lisinopril (ZESTRIL) 10 MG tablet Take 10 mg by mouth every morning Active metroNIDAZOLE (METROCREAM) 0.75 % external cream Apply topically 2 times daily Apply to affected areas on face. Apply a thin layer 1-2 times daily. Active mupirocin (BACTROBAN) 2 % external ointment Apply topically daily Apply a thin layer to the open sores on the body daily. Active omeprazole (PRILOSEC) [address] capsule Take 20 mg by mouth every morning Active tacrolimus (PROTOPIC) 0.1 % external ointment Apply topically 2 times daily Apply a thin layer to affected areas on body 1-2 times daily. Active triamcinolone (KENALOG) 0.1 % external cream Apply topically 2 times daily Apply topically to affected areas on arms twice daily. Active Cyanocobalamin 1000 MCG CAPS Take 1,000 mcg by mouth every morning Active busPIRone (BUSPAR) 15 MG tablet Take 15 mg by mouth every 6 hours as needed (anxiety) Active clobetasol propionate (TEMOVATE) 0.05 % external cream Apply topically 2 times daily as needed (dry feet) Apply to affected areas on feet twice daily as needed. Active cloNIDine (CATAPRES) 0.1 MG tablet Take 0.1 mg by mouth every 6 hours as needed (for withdrawal) Active diazepam (VALIUM) 5 MG tablet Take 5 mg by mouth See Admin Instructions Take 30 minutes prior to procedure Active glycerin (ADULT) [address] 1 suppository rectally daily as needed for constipation Active haloperidol (HALDOL) 1 MG tablet Take 1 mg by mouth every 6 hours as needed for agitation May repeat twice in 24 hour period Active loperamide (IMODIUM) 2 MG capsule Take 2 mg by mouth 4 times daily as needed for diarrhea Active methocarbamol (ROBAXIN) 500 MG tablet Take 500 mg by mouth 2 times daily as needed for muscle spasms Active naloxone (NARCAN) 4 MG/0.1ML nasal spray Udall 4 mg into one nostril alternating nostrils as needed for opioid reversal every 2-3 minutes until assistance arrives Active hydrocortisone, Perianal, (ANUSOL-HC) 2.5 % cream Place rectally 2 times daily as needed for hemorrhoids Active rOPINIRole (REQUIP) 0.5 MG tablet Take 0.5 mg by mouth nightly as needed Active diltiazem ER COATED BEADS (CARDIZEM CD/CARTIA XT) 120 MG 24 hr capsuleIndication s:Atrial fibrillation with RVR (H) Take 1 capsule (120 mg) by mouth daily 90 capsule 11/16/19 24 Active apixaban ANTICOAGULANT (ELIQUIS) 5 MG tabletIndications :Afib-non valvular Take 1 tablet (5 mg) by mouth 2 times daily 180 tablet 11/16/19 24 Active metoprolol tartrate (LOPRESSOR) 100 MG tabletIndications :Atrial fibrillation with RVR (H) Take 0.5 tablets (50 mg) by mouth every morning AND 1 tablet (100 mg) every evening. Do all this for 60 days. 90 tablet 11/18/19 24 024 Active MILK OF MAGNESIA 400 MG/5ML PO suspension Take 30 mLs by mouth daily as needed for constipation 05/18/20 19 024 Discontinued(Me d Rec(No AVS / No eCancel)) cyanocobalamin 1000 MCG/ML IJ injection Inject 1 mL into the muscle every 30 days 07/15/19 20 024 Discontinued(Me d Rec(No AVS / No eCancel)) diclofenac (VOLTAREN) 1 % topical gel Apply 2 g topically 4 times daily Apply to affected area. 6AM, 12PM, 6PM, 12AM 02/02/20 024 Discontinued(Me d Rec(No AVS / No eCancel)) Vaginal Lubricant (REPLENS) GEL Place vaginally every 72 hours as needed (dryness) 09/23/19 Discontinued(Me d Rec(No AVS / No eCancel)) Sharps Container (UKTYIB-M-YZYAC LOCKING BRACKET) MISC Length: calf Strength: 16-20 mmHg Circumference in cm: For calf: Ankle 12, Calf 18.5 , Ankle to calf length 12 . 03/15/20 18 024 Discontinued HYDROmorphone (DILAUDID) 2 MG tabletIndications :Open wound Take 1 tablet (2 mg) by mouth every 6 hours as needed for severe pain 12 tablet 06/26/19 Discontinued metFORMIN (GLUCOPHAGE) 500 MG tablet Take 500 mg by mouth 2 times daily (with meals) Discontinued(Me d Rec(No AVS / No eCancel)) warfarin ANTICOAGULANT (COUMADIN) 2 MG tablet Take 1.5-3 mg by mouth See Admin Instructions Take Discontinued(Me d Rec(No AVS / No eCancel)) BANOPHEN 25 MG capsule Take 25 mg by mouth every 4 hours as needed for sleep 01/29/20 Discontinued(Me d Rec(No AVS / No eCancel)) artificial saliva (BIOTENE DRY MOUTHWASH) LIQD liquid Swish and spit 15 mLs in mouth every 6 hours as needed for dry mouth 12/15/19 Discontinued(Me d Rec(No AVS / No eCancel)) pantoprazole (PROTONIX) 40 MG EC tablet Take 40 mg by mouth daily 12/15/19 Discontinued(Me d Rec(No AVS / No eCancel)) DIPHENHYDRAMINE HCL PO Take 25 mg by mouth every 4 hours as needed Discontinued(Me d Rec(No AVS / No eCancel)) MARY-LANTA 200-200-20 MG/5ML SUSP suspension Take 10 mLs by mouth 4 times daily as needed for indigestion 06/03/19 024 Discontinued(Me d Rec(No AVS / No eCancel)) prazosin (MINIPRESS) 2 MG capsule Take 2 mg by mouth At Bedtime 06/18/19 024 Discontinued pregabalin (LYRICA) 100 MG capsule Take 100 mg by mouth 3 times daily 06/17/19 22 024 Discontinued(Me d Rec(No AVS / No eCancel)) hydrocortisone (CORTAID) 1 % external cream Apply topically 4 times daily as needed for rash 06/03/19 024 Discontinued(Me d Rec(No AVS / No eCancel)) hydrOXYzine (VISTARIL) 50 MG capsuleIndication s:Status post total right knee replacement Take 1 capsule (50 mg) by mouth 3 times daily as needed for itching 30 capsule 07/13/19 Discontinued metroNIDAZOLE (METROCREAM) 0.75 % external cream 09/24/19 24 024 Discontinued metoprolol tartrate (LOPRESSOR) 50 MG tablet Take 50 mg by mouth 2 times daily 08/13/19 24 024 Discontinued(St op at Discharge) warfarin ANTICOAGULANT (COUMADIN) 3 MG tablet Take 1.5-3 mg by mouth See Admin Instructions Take 1.5 mg (1/2 tablet) on Thursday, Thursday, Thursday, and Thursday. Take 3 mg all other days of the week. Discontinued(St op at Discharge) digoxin (LANOXIN) 125 MCG tablet Take 125 mcg by mouth every morning Discontinued(St op at Discharge) doxycycline hyclate (VIBRAMYCIN) 100 MG capsule Take 100 mg by mouth 2 times daily Discontinued(St op at Discharge) amoxicillin (AMOXIL) 500 MG capsule Take 2,000 mg by mouth See Admin Instructions Take 2,000 mg 1 hour prior to dental appointment as needed. Discontinued metoprolol tartrate (LOPRESSOR) 100 MG tabletIndications :Atrial fibrillation with RVR (H) Take 1 tablet (100 mg) by mouth 2 times daily for 90 days 180 tablet 11/15/19 24 024 Discontinued apixaban ANTICOAGULANT (ELIQUIS) 5 MG tabletIndications :Afib-non valvular Take 1 tablet (5 mg) by mouth 2 times daily for 90 days 180 tablet 11/15/19 24 024 Discontinued diltiazem ER COATED BEADS (CARDIZEM CD/CARTIA XT) 120 MG 24 hr capsuleIndication s:Atrial fibrillation with RVR (H) Take 1 capsule (120 mg) by mouth daily for 90 days 90 capsule 11/16/19 24 024 Discontinued metoprolol tartrate (LOPRESSOR) 100 MG tabletIndications :Atrial fibrillation with RVR (H) Take 1 tablet (100 mg) by mouth 2 times daily 180 tablet 11/16/19 24 024 Discontinued Active Problems Problem Noted Date Diagnosed Date Exertional dyspnea 11/13/2023 Atrial fibrillation with RVR 11/13/2023 Subtherapeutic international normalized ratio (I NR) 11/13/2023 Warfarin anticoagulation 11/13/2023 Total knee replacement status 07/09/2021 Excess skin of abdomen 03/29/2020 Overview: Added automatically from request for surgery [id number] Nasal septal deviation 02/08/2020 Nasal trauma 02/08/2020 Nasal valve collapse 02/08/2020 Asthma 02/03/2019 Overview: Asthma. mild. only with URI. Asthma. mild. only with URI. Longstanding persistent atrial fibrillation 09/2018 Status post replacement of left shoulder joint 1 Diastasis of rectus abdominis 01/29/2018 Lacunar stroke 01/20/2018 Overview: Right parietal per [facility] Recurrent major depressive disorder (H24) 2017 Overview: [...] Encounters Date Type Department Care Team Description 11/18/2023 12:22 AM CDT - 11/18/2023 4:39 AM CDT Emergency [facility] Emergency Dept [address] [place] [address] Shi Tabor MD Volume depletion; Transient hypotension; Persistent atrial fibrillation (H); Alcoholic intoxication without complication (H24); Atrial fibrillation with RVR (H) Discharge Disposition: Home or Self Care 11/18/2023 Travel 11/13/2023 2:36 PM CDT - 11/16/2023 1:34 PM CDT Hospital Encounter [facility] [address] [place] [address] Mauro Soliman MD Zekri, Sana, MD Martin, Casey S, MD Atrial fibrillation with RVR (H); Exertional dyspnea; Subtherapeutic international normalized ratio (INR); Warfarin anticoagulation Discharge Disposition: Intermediate Care Facility with Planned Hospital IP Readmission 11/13/2023 1:30 PM CDT Office Visit [facility] [address] [place] [address] Greta Thao APRN CNP Nonischemic cardiomyopathy (H) (Primary Dx); Longstanding persistent atrial fibrillation (H) 11/13/2023 Travel 10/15/2023 Telephone [facility] [place] [address] [place] [address] Haley Khanna MD Injection Inquiry 10/15/2023 Travel 10/14/2023 1:30 PM CDT - 10/14/2023 11:59 PM CDT Hospital Encounter [facility] [address] [place] [address] Greta Thao APRN CNP Longstanding persistent atrial fibrillation (H) Discharge Disposition: Home or Self Care 10/14/2023 Travel from Last 3 Months Immunizations Name [...] often do you attend chur ch or confucianism services? More than 4 times per year 07/05/2021 Do you belong to any clubs o r organizations such as jewish groups, unions, fraternal or athletic groups, or [...] Answer Date Recorded PHQ-2 Score 1 07/20/2019 [facility] - Occupational Stress Questionnaire Answer Date Recorded [...] place to sleep or slept in a correction (including now)? No 07/05/2021 Adolescent Education Answer Date Record ed Getting School Help Needed Not on file 02/20 Sex and Gender Information Value Date Recorded Sex Assigned at Not on file Gender Identity Not on file Sexual Orientation Not on file Last Filed Vital Signs Vital Sign Reading Time Taken Comments Blood Pressure 108/77 11/18/2023 3:15 AM CDT Pulse 88 11/18/2023 3:45 AM CDT Temperature 36.5 ??C (97.7 ??F) 11/18/2023 1 2:40 AM CDT Respiratory Rate 14 11/18/2023 3:45 AM CDT Oxygen Saturation 95% 11/18/2023 3:45 AM CDT Inhaled Oxygen Concentration - - Weight 89.7 kg (197 lb 12.8 oz) 024 11:00 AM CDT Height 157.5 cm (5' 2) 11/14/2023 2:28 PM CDT Body Mass Index 36.18 11/14/2023 2:28 PM CDT Plan of Treatment Upcoming Encounters Date Type Department Care Team (Late st Contact Info) Description 12/10/2023 9:30 AM CDT Office Visit [facility] [address] [place], [place] [id number] [place] [id number] [place] [phone] Health Maintenance Due Date Last Done Comments [...] 60+ series) 2020 MAMMO SCREENING 07/29/2021 07/29/2019, 07/03, 07/29/2019 A1C 10/02/2021 07/05/2021, 11/0 12/2020, 11/14/2020, Additional history exists ZOSTER IMMUNIZATION (2 of 2) 03/05/2022 01/08/2022 MEDICARE ANNUAL WELLNESS VISIT 05/06/2022 05/06/2021 COVID-19 Vaccine (4 - season) 2023 04/09/2022, 07/16/2020, 06/18/2020 BMP 05/19/2024 11/18/2023, 10/30, 11/14/2023, Additional history exists LUNG CANCER SCREENING 11/12/2024 11/13/2023 , 07/11/2021, 11/09/2020, Additional history exists ALT 11/17/2024 11/18/2023, 10/30, 12/12/2020, Additional history exists CBC 11/17/2024 11/18/2023, 10/30, 11/15/2023, Additional history exists COLONOSCOPY 03/26/2025 03/26/2015 COLORECTAL CANCER SCREENING 03/26/2025 DTAP/TDAP/TD IMMUNIZATION (7 - Td or Tdap) 06/24/2032 06/24/2022, 09/29/2011, 09/02/2011, Additional history exists INFLUENZA VACCINE Completed 04/08/2023, , 03/18/2021, Additional history exists Pneumococcal Vaccine: Pediatrics (0 to 5 Years) and At-Risk Patients (6 to 64 Years) Completed 05/12/2023, 01/08/2022, 07/08/2001 TSH W/FREE T4 REFLEX Completed 11/13/2023, 12/12/2020, 11/10/2020 HPV IMMUNIZATION Aged Out No longer e [...] this topic Medical Devices Implanted Type Area Fire Loss Prevention Engineer Device Identifier Shelf Expiration Date Model / Serial / Lot Cement Surgical Tobramycin 6197-9-001 - [id number] Implanted:Qty : 2 on 07/09/2021 by Jamin Siegel MD at [facility] Cement, Bone Right: Knee [employer] 07/01/2022 6197-9-001 / / [id number] Imp Insert Jj Attune Medial Jaquelin Pat 38mm [id number] - [id number] Implanted:Qty : 1 on 07/09/2021 by Jamin Siegel MD at [facility] Total Joint Componen t/Insert Right: Knee [employer] [id number] 09/28/2025 [id number] / / [id number] Imp Comp Fem Jj Attune Post Stab Rt Ash Sz5 [id number] - [id number] Implanted:Qty : 1 on 07/09/2021 by Jamin Siegel MD at [facility] Total Joint Componen t/Insert Right: Knee [employer] [id number] 01/29/2026 [id number] / / [id number] Stem 50mm X 14mm - [id number] Implanted:Qty : 1 on 07/09/2021 by Jamin Siegel MD at [facility] Total Joint Componen t/Insert Right: Knee [employer] [id number] 02/28/2031 [id number] / / [id number] Tibial Base Sz 5 - [id number] Implanted:Qty : 1 on 07/09/2021 by Jamin Siegel MD at [facility] Total Joint Componen t/Insert Right: Knee [employer] [id number] 04/30/2030 [id number] / / [id number] Imp Insert Jj Attune Post Stab Fx Br Sys Sz5 12mm [id number] - [id number] Implanted:Qty : 1 on 07/09/2021 by Jamin Siegel MD at [facility] Total Joint Componen t/Insert Right: Knee [employer] [id number] 07/29/2024 [id number] / / [id number] Procedures Procedure Name Priority Date/Time Associated Diagnosis Comments URINE DRUG SCREEN STAT 11/18/2023 3:5 5 AM CDT URINE DRUG SCREEN PANEL STAT 11/18/2023 3:55 AM CDT ROUTINE UA WITH MICROSCOPIC REFLEX TO CULTURE STAT 11/18/2023 3:55 AM CDT LACTIC ACID WHOLE BLOOD STAT 11/18/2023 2:23 AM CDT TROPONIN T, HIGH SENSITIVITY STAT 11/18/2023 2:23 AM CDT CBC WITH PLATELETS & DIFFERENTIAL STAT 11/18/2023 12:34 AM CDT CBC WITH PLATELETS AND DIFFERENTIAL STAT 11/18/2023 12:34 AM CDT ETHYL ALCOHOL LEVEL STAT 11/18/2023 1 2:34 AM CDT INR STAT 11/18/2023 12:34 AM CDT TROPONIN T, HIGH SENSITIVITY STAT 11/18/2023 12:34 AM CDT LACTIC ACID WHOLE BLOOD STAT 11/18/2023 12:34 AM CDT COMPREHENSIVE METABOLIC PANEL STAT 11/18/2023 12:34 AM CDT GLUCOSE BY METER STAT 11/18/2023 12:3 1 AM CDT EKG 12-LEAD, TRACING ONLY STAT 11/18/2023 12:27 AM CDT CBC WITH PLATELETS Routine 11/16/2023 4: 57 AM CDT FERRITIN Routine 11/15/2023 7:43 AM CDT BASIC METABOLIC PANEL Routine 11/15/2023 7:43 AM CDT CBC WITH PLATELETS Routine 11/15/2023 7: 43 AM CDT INR Routine 11/15/2023 7:43 AM CDT ECHO COMPLETE WITH CONTRAST Routine 11/14/2023 12:47 PM CDT CBC WITH PLATELETS STAT 11/14/2023 8: 36 AM CDT BASIC METABOLIC PANEL STAT 11/14/2023 5:48 AM CDT INR STAT 11/14/2023 5:48 AM CDT LACTIC ACID WHOLE BLOOD STAT 11/13/2023 9:13 PM CDT VITAMIN B1 WHOLE BLOOD STAT 9:13 PM CDT INR STAT 11/13/2023 9:[address] CHEST PULMONARY EMBOLISM W CONTRAST STAT 11/13/2023 4:50 PM CDT CBC WITH PLATELETS & DIFFERENTIAL STAT 11/13/2023 2:48 PM CDT IRON AND IRON BINDING CAPACITY Add-On 11/13/2023 2:48 PM CDT CBC WITH PLATELETS AND DIFFERENTIAL STAT 11/13/2023 2:48 PM CDT PROCALCITONIN STAT 11/13/2023 2:48 PM CDT NT PROBNP INPATIENT STAT 11/13/2023 2 :48 PM CDT TROPONIN T, HIGH SENSITIVITY STAT 11/13/2023 2:48 PM CDT CRP INFLAMMATION STAT 11/13/2023 2:48 PM CDT TSH WITH FREE T4 REFLEX STAT 11/13/2023 2:48 PM CDT MAGNESIUM STAT 11/13/2023 2:48 PM CDT LIPASE STAT 11/13/2023 2:48 PM CDT HEPATIC FUNCTION PANEL STAT 2:48 PM CDT BASIC METABOLIC PANEL STAT 11/13/2023 2:48 PM CDT INR STAT 11/13/2023 2:48 PM CDT EXTRA PURPLE TOP TUBE STAT 11/13/2023 2:48 PM CDT EXTRA GREEN TOP (LITHIUM HEPARIN) TUBE STAT 11/13/2023 2:48 PM CDT EXTRA BLUE TOP TUBE STAT 11/13/2023 2 :48 PM CDT EXTRA TUBE STAT 11/13/2023 2:48 PM CDT ECG 12-LEAD WITH MUSE ? LOVELY MANTILLA [facility] STAT 11/13/2023 2:42 PM CDT ECG 12-LEAD WITH MUSE ? LOVELY MANTILLA [facility] Routine 11/13/2023 2:11 PM CDT Longstanding persistent atrial fibrillation (H) HOLTER MONITOR 24 HOUR APPLICATION SCAN ANALYSIS AND PROVIDER INTERPRETATION Routine 10/14/2023 2:18 PM CDT Longstanding persistent atrial fibrillation (H) HEMOGLOBIN A1C Add-On 07/05/2021 10:09 AM MACHINE CLOTHING WORKER Type 2 diabetes mellitus without complication, without long-term current use of insulin (H) MA SCREENING BILATERAL W/ RILEY Routine 07/29/2019 11:25 AM MACHINE CLOTHING WORKER LIPID PROFILE Routine 03/09/2015 3:11 PM CDT Bariatric surgery status from Last 3 Months or Most Recently Relevant to Health Maintenance Results * UA with Microscopic reflex to Culture (11/18/2023 3:55 AM CDT) Color Urine Straw Colorless, Straw, Light Yellow, Yellow 11/18/2023 4:04 AM CDT LABORATORY Appearance Urine Clear Clear 11/18/19 4:04 AM CDT LABORATORY Glucose Urine Negative Negative mg/dL 11/18/2023 4:04 AM CDT LABORATORY Bilirubin Urine Negative Negative 4:04 AM CDT LABORATORY Ketones Urine Negative Negative mg/dL 11/18/2023 4:04 AM CDT LABORATORY Specific [place] Urine 1.004 1.003 - 1.035 11/18/2023 4:04 AM CDT LABORATORY Blood Urine Negative Negative 11/18/2023 4:04 AM CDT LABORATORY pH Urine 6.0 5.0 - 7.0 11/18/2023 4:04 AM CDT LABORATORY Protein Albumin Urine Negative Negative mg/dL 11/18/2023 4:04 AM CDT LABORATORY Urobilinogen Urine Normal Normal, 2.0 mg/dL 11/18/2023 4:04 AM CDT LABORATORY Nitrite Urine Negative Negative 11/18/2023 4:04 AM CDT LABORATORY Leukocyte Esterase Urine Negative Negative 11/18/2023 4:04 AM CDT LABORATORY RBC Urine 0 <=2 /HPF 11/18/2023 4:04 AM CDT LABORATORY WBC Urine <1 <=5 /HPF 11/18/2023 4:04 AM CDT LABORATORY Squamous Epithelials Urine <1 <=1 /HPF 11/18/2023 4:04 AM CDT LABORATORY Urine URINE SPECIMEN OBTAINED BY CLEAN CATCH PROCEDURE / Unknown Non-blood Collection / Unknown 11/18/2023 3:55 AM CDT 11/18/2023 3:58 AM CDT Narrative [facility] - 11/18/2023 4:04 AM CDT Urine Culture not indicated Shi Tabor MD LAB - URINE ORDERAB LES [facility] [address] Lab (1st floor, no room number) [place] [address], [facility] * Urine Drug Screen Panel (11/18/2023 3:55 AM CDT) [facility] Signature Amphetamines Urine Screen Negative Screen Negative 11/18/2023 4:20 AM CDT [facility] Comment:Cutoff for a negativ e amphetamine is less than 500 ng/mL. Barbituates Urine Screen Negative Screen Negative 11/18/2023 4:20 AM CDT [facility] Comment:Cutoff for a negativ e barbiturate is less than 200 ng/mL. Benzodiazepine Urine Screen Negative Screen Negative 11/18/2023 4:20 AM CDT [facility] Comment:Cutoff for a negativ e benzodiazepine is less than 100 ng/mL. Cannabinoids Urine Screen Negative Screen Negative 11/18/2023 4:20 AM CDT [facility] Comment:Cutoff for a negativ e cannabinoid is less than 50 ng/mL. Cocaine Urine Screen Negative Screen Negative 11/18/2023 4:20 AM CDT [facility] Comment:Cutoff for a negativ e cocaine is less than 300 ng/mL. Fentanyl Qual Urine Screen Negative Screen Negative 11/18/2023 4:20 AM CDT [facility] Comment:Cutoff for negative fentanyl is less than 5 ng/mL. Opiates Urine Screen Negative Screen Negative 11/18/2023 4:20 AM CDT [facility] Comment:Cutoff for a negativ e opiate is less than 300 ng/mL. PCP Urine Screen Negative Screen Negative 11/18/2023 4:20 AM CDT [facility] Comment:Cutoff for a negativ e PCP is less than 25 ng/mL. Urine URINE SPECIMEN OBTAINED BY CLEAN CATCH PROCEDURE / Unknown Non-blood Collection / Unknown 11/18/2023 3:55 AM CDT 11/18/2023 3:58 AM CDT Shi Tabor MD LAB - URINE ORDERAB LES [facility] [address] Lab (1st floor, no room number) [place] [address], [place] * Troponin T, High Sensitivity (11/18/2023 2:23 AM CDT) Only the most recent of3 resultswithin the time period is included. Troponin T, High Sensitivity 13 <=14 ng/L 11/18/2023 3:04 AM CDT LABORATORY Comment: Either a High Sensitivity Troponin T baseline (0 hours) value = 100 ng/L, or an increase in High Sensitivity Troponin T = 7 ng/L at 2 hours compared to 0 hours (2-0 hours), suggests myocardial injury, and urgent clinical attention is required. ?? If the 2-0 hours increase is <7 ng/L, a High Sensitivity Troponin T result above gender-specific reference ranges warrants further evaluation. Recommendations for further evaluation include correlation with clinical decision-making tool (e.g., HEART), a 3rd High Sensitivity Troponin T test 2 hours after the 2nd (a 20% change from baseline would represent concern), admission for observation, close PCC/cardiology follow-up, or urgent outpatient provocative testing. Blood BLOOD SPECIMEN / Unknown Venipuncture / Unknown 11/18/2023 2:23 AM CDT 11/18/2023 2:39 AM CDT Shi Tabor MD LAB - BLOOD ORDERAB LES [facility] [address] Lab (1st floor, no room number) [place] [address], [facility] * (ABNORMAL) Lactic acid whole blood (11/18/2023 2:23 AM CDT) Only the most recent of3 resultswithin the time period is included. Lactic Acid 2.5(H) 0.7 - 2.0 mmol/L 11/18/2023 2:41 AM CDT LABORATORY Blood BLOOD SPECIMEN / Unknown Venipuncture / Unknown 11/18/2023 2:23 AM CDT 11/18/2023 2:39 AM CDT Shi Tabor MD LAB - BLOOD ORDERAB LES [facility] [address] Lab (1st floor, no room number) [place] [address], [facility] * (ABNORMAL) CBC with platelets and differential (11/18/2023 12:34 AM CDT) Only the most recent of2 resultswithin the time period is included. WBC Count 14.3(H) 4.0 - 11.0 10e3/uL 11/18/2023 1:13 AM CDT [facility] RBC Count 4.71 3.80 - 5.20 10e6/uL 11/18/2023 1:13 AM CDT [facility] Hemoglobin 10.3(L) 11.7 - 15.7 g/dL 11/18/2023 1:13 AM CDT [facility] Hematocrit 36.3 35.0 - 47.0 % 11/18/2023 1:13 AM CDT [facility] MCV 77(L) 78 - 100 fL 11/18/2023 1:13 AM CDT [facility] MCH 21.9(L) 26.5 - 33.0 pg 11/18/2023 1:13 AM CDT [facility] MCHC 28.4(L) 31.5 - 36.5 g/dL 11/18/2023 1:13 AM CDT [facility] RDW 20.4(H) 10.0 - 15.0 % 11/18/2023 1:13 AM CDT [facility] Platelet Count 269 150 - 450 10e3/uL 11/18/2023 1:13 AM CDT [facility] % Neutrophils 72 % 11/18/2023 1:13 AM CDT [facility] % Lymphocytes 15 % 11/18/2023 1:13 AM CDT [facility] % Monocytes 8 % 11/18/2023 1:13 AM CDT [facility] % Eosinophils 3 % 11/18/2023 1:13 AM CDT [facility] % Basophils 1 % 11/18/2023 1:13 AM CDT [facility] % Immature Granulocytes 2 % 11/18/2023 1:13 AM CDT [facility] NRBCs per 100 WBC 0 <1 /100 024 1:13 AM CDT [facility] Absolute Neutrophils 10.3(H) 1.6 - 8.3 10e3/uL 11/18/2023 1:13 AM CDT [facility] Absolute Lymphocytes 2.1 0.8 - 5.3 10e3/uL 11/18/2023 1:13 AM CDT [facility] Absolute Monocytes 1.1 0.0 - 1.3 10e3/uL 11/18/2023 1:13 AM CDT [facility] Absolute Eosinophils 0.4 0.0 - 0.7 10e3/uL 11/18/2023 1:13 AM CDT [facility] Absolute Basophils 0.1 0.0 - 0.2 10e3/uL 11/18/2023 1:13 AM CDT [facility] Absolute Immature Granulocytes 0.2 <=0.4 10e3/uL 11/18/2023 1:13 AM CDT [facility] Absolute NRBCs 0.0 10e3/uL 11/18/2023 1:13 AM CDT [facility] Blood BLOOD SPECIMEN / Unknown Venipuncture / Unknown 11/18/2023 12:34 AM CDT 11/18/2023 12:42 AM CDT Champ Madrid MD LAB - BLOOD ORDERABL ES Performing Organization Address [facility]/ZIP Co de Phone Number [facility] [address] Lab (1st floor, no room number) [address] * (ABNORMAL) INR (11/18/2023 12:34 AM CDT) Only the most recent of5 resultswithin the time period is included. INR 1.48(H) 0.85 - 1.15 11/18/2023 12:57 AM CDT [facility] Blood BLOOD SPECIMEN / Unknown Venipuncture / Unknown 11/18/2023 12:34 AM CDT 11/18/2023 12:42 AM CDT Champ Madrid MD LAB - BLOOD ORDERABL ES [facility] [address] Lab (1st floor, no room number) [address] [place] [address] * (ABNORMAL) Comprehensive metabolic panel (11/18/2023 12:34 AM CDT) Sodium 131(L) 135 - 145 mmol/L 11/18/2023 1:09 AM CDT [facility] Comment:Reference intervals for this test were updated on 02/24/2023 to more accurately reflect our healthy population. There may be differences in the flagging of prior results with similar values performed with this method. Interpretation of those prior results can be made in the context of the updated reference intervals. Potassium 3.9 3.4 - 5.3 mmol/L 11/18/2023 1:09 AM CDT [facility] Carbon Dioxide (CO2) 17(L) 22 - 29 mmol/L 11/18/2023 1:09 AM CDT [facility] Anion Gap 16(H) 7 - 15 mmol/L 11/18/2023 1:09 AM CDT [facility] Urea Nitrogen 22.6 8.0 - 23.0 mg/dL 11/18/2023 1:09 AM CDT [facility] Creatinine 1.11(H) 0.51 - 0.95 mg/dL 11/18/2023 1:09 AM CDT [facility] GFR Estimate 56(L) >60 mL/min/1. 73m2 11/18/2023 1:09 AM CDT [facility] Comment:eGFR calculated usin 2020 CKD-EPI equation. Calcium 8.8 8.8 - 10.2 mg/dL 11/18/2023 1:09 AM CDT [facility] Chloride 98 98 - 107 mmol/L 11/18/2023 1:09 AM CDT [facility] Glucose 218(H) 70 - 99 mg/dL 11/18/2023 1:09 AM CDT [facility] Alkaline Phosphatase 132 40 - 150 U/L 11/18/2023 1:09 AM CDT [facility] AST 39 0 - 45 U/L 11/18/2023 1:09 AM CDT [facility] Comment:Reference intervals for this test were updated on 11/10/2022 to more accurately reflect our healthy population. There may be differences in the flagging of prior results with similar values performed with this method. Interpretation of those prior results can be made in the context of the updated reference intervals. ALT 44 0 - 50 U/L 11/18/2023 1:09 AM CDT [facility] Comment:Reference intervals for this test were updated on 11/10/2022 to more accurately reflect our healthy population. There may be differences in the flagging of prior results with similar values performed with this method. Interpretation of those prior results can be made in the context of the updated reference intervals. Protein Total 6.9 6.4 - 8.3 g/dL 11/18/2023 1:09 AM CDT [facility] Albumin 3.8 3.5 - 5.2 g/dL 11/18/2023 1:09 AM CDT [facility] Bilirubin Total 0.2 <=1.2 mg/dL 11/18/2023 1:09 AM CDT [facility] Blood BLOOD SPECIMEN / Unknown Venipuncture / Unknown 11/18/2023 12:34 AM CDT 11/18/2023 12:42 AM CDT Champ Madrid MD LAB - BLOOD ORDERABL ES Performing Organization Address City/[facility]/ZIP Co de Phone Number [facility] [address] Lab (1st floor, no room number) [address] * (ABNORMAL) Alcohol level blood (11/18/2023 12:34 AM CDT) Alcohol ethyl 0.20(H) <=0.01 g/dL 11/18/2023 1:06 AM CDT [facility] Blood BLOOD SPECIMEN / Unknown Venipuncture / Unknown 11/18/2023 12:34 AM CDT 11/18/2023 12:42 AM CDT Shi Tabor MD LAB - BLOOD ORDERAB LES [facility] [address] Lab (1st floor, no room number) [address] * (ABNORMAL) Glucose by meter (11/18/2023 12:31 AM CDT) GLUCOSE BY METER POCT 197(H) 70 - 99 mg/dL 11/18/2023 12:38 AM CDT [facility] POC Blood, venous BLOOD SPECIMEN / Unknown 11/18/2023 12:31 AM CDT 11/18/2023 12:38 AM CDT Shi Tabor MD LAB - BEAKER POCT Performing Organization Address City/[facility]/ZIP Co de Phone Number [facility] POC [facility] Lab [address] Lab (1st floor, no room number) [place] [address] * EKG 12 lead (11/18/2023 12:27 AM CDT) Systolic Blood Pressure mmHg RADIOLOGY RESULTS Diastolic Blood Pressure mmHg RADIOLOGY RESULTS Ventricular Rate 70 BPM RAD IOLOGY RESULTS Atrial Rate BPM RADIOLOG Y RESULTS WV Interval ms RADIOLOG Y RESULTS QRS Duration 92 ms RADIOLO GY RESULTS QT 440 ms RADIOLOGY RESULTS QTc 475 ms RADIOLOGY RESULTS P [place] degrees RADIOLOGY RESULTS R AXIS 48 degrees RADIOLOGY RESULTS T [place] 0 degrees RADIOLOGY RESULTS Interpretation ECG Atrial fibrillation Nonspecific ST abnormality Abnormal ECG When compared with ECG of 13-NOV-2023 14:42, Vent. rate has decreased BY ??67 BPM T wave inversion no longer evident in Lateral leads RADIOLOGY RESULTS 11/18/2023 12:2 7 AM CDT 11/18/2023 1:18 AM CDT Champ Madrid MD ECG ORDERABLES Performing Organization Address [facility] Co de Phone Number RADIOLOGY RESULTS * (ABNORMAL) CBC with platelets (11/16/2023 4:57 AM CDT) Only the most recent of3 resultswithin the time period is included. WBC Count 9.2 4.0 - 11.0 10e3/uL 11/16/2023 5:[address] [facility] RBC Count 5.02 3.80 - 5.20 10e6/uL 11/16/2023 5:[address] [facility] Hemoglobin 11.2(L) 11.7 - 15.7 g/dL 11/16/2023 5:[address] [facility] Hematocrit 36.8 35.0 - 47.0 % 11/16/2023 5:[address] [facility] MCV 73(L) 78 - 100 fL 11/16/2023 5:[address] [facility] MCH 22.3(L) 26.5 - 33.0 pg 11/16/2023 5:[address] [facility] MCHC 30.4(L) 31.5 - 36.5 g/dL 11/16/2023 5:[address] [facility] RDW 20.4(H) 10.0 - 15.0 % 11/16/2023 5:[address] [facility] Platelet Count 228 150 - 450 10e3/uL 11/16/2023 5:[address] [facility] Blood BLOOD SPECIMEN / Unknown Venipuncture / Unknown 11/16/2023 4:57 AM CDT 11/16/2023 5:07 AM CDT Pablito Morejon MD LAB - BLOOD ORDERABL ES [facility] [address] [place] [address], [facility] * Ferritin (11/15/2023 7:43 AM CDT) Ferritin 26 11 - 328 ng/mL 11/15/2023 12:43 PM CDT LABORATORY Blood BLOOD SPECIMEN / Unknown Venipuncture / Unknown 11/15/2023 7:43 AM CDT 11/15/2023 7:58 AM CDT Rhonda Haas MD LAB - BLOOD ORDERABL ES LABORATORY [facility] [place] [facility] [address], [address] [place] [address], [facility] * (ABNORMAL) Basic metabolic panel (11/15/2023 7:43 AM CDT) Only the most recent of3 resultswithin the time period is included. Sodium 136 135 - 145 mmol/L 11/15/2023 8:[address] [facility] Comment:Reference intervals for this test were updated on 02/24/2023 to more accurately reflect our healthy population. There may be differences in the flagging of prior results with similar values performed with this method. Interpretation of those prior results can be made in the context of the updated reference intervals. Potassium 4.2 3.4 - 5.3 mmol/L 11/15/2023 8:[address] [facility] Chloride 102 98 - 107 mmol/L 11/15/2023 8:[address] [facility] Carbon Dioxide (CO2) 20(L) 22 - 29 mmol/L 11/15/2023 8:[address] [facility] Anion Gap 14 7 - 15 mmol/L 11/15/2023 8:17 AM [facility] Urea Nitrogen 19.2 8.0 - 23.0 mg/dL 11/15/2023 8:17 AM [facility] Creatinine 0.50(L) 0.51 - 0.95 mg/dL 11/15/2023 8:[address] [facility] GFR Estimate >90 >60 mL/min/1. 73m2 11/15/2023 8:[address] [facility] Comment:eGFR calculated 2020 CKD-EPI equation. Calcium 9.1 8.8 - 10.2 mg/dL 11/15/2023 8:[address] [facility] Glucose 163(H) 70 - 99 mg/dL 11/15/2023 8:[address] [facility] Blood BLOOD SPECIMEN / Unknown Venipuncture / Unknown 11/15/2023 7:43 AM CDT 11/15/2023 7:58 AM CDT Rhonda Haas MD LAB - BLOOD ORDERABL ES [facility] [address] [place] [address], [place] * ECHO COMPLETE WITH CONTRAST (11/14/2023 12:47 PM CDT) LVEF 50-55% (borderlin e) CARDIOLOGY RESULTS Anatomical Region Laterality Modality Ultrasound 11/14/2023 12:1 5 PM CDT Narrative 11/14/2023 3:06 PM CDT [id number]^KAI^[place] [address] Name: BRANDEE CORDOVA : 1960 Study Date: 11/14/2023 12:15 PM Age: 63 yrs Gender: Female Patient Location: [facility] Reason For Study: Atrial Fibrillation Ordering Physician: LISANDRA QUINN Performed By: DAYO BSA: 1.9 m2 Height: 62 in Weight: 201 lb HR: 97 BP: 102/67 mmHg Procedure Complete Portable Echo Adult. Definity ([facility] #[id number]) given intravenously. No hemodynamically significant valvular abnormalities on 2D or color flow imaging. Interpretation Summary The left ventricle is normal in size. Left ventricular function is decreased. The ejection fraction is 50-55% (borderline). Normal right ventricle size and systolic function. The right atrium is mildly dilated. The left atrium is moderate to severely dilated. Mildly dilated aortic root. Left Ventricle The left ventricle is normal in size. Left ventricular function is decreased. The ejection fraction is 50-55% (borderline). There is normal left ventricular wall thickness. Left ventricular diastolic function is normal. There is borderline global hypokinesia of the left ventricle. Right Ventricle Normal right ventricle size and systolic function. Atria The left atrium is moderate to severely dilated. The right atrium is mildly dilated. There is no color Doppler evidence of an atrial shunt. Mitral Valve Mitral valve leaflets appear normal. There is mild (1+) mitral regurgitation. Tricuspid Valve The tricuspid valve is not well visualized. This degree of valvular regurgitation is within normal limits. Aortic Valve Aortic valve leaflets appear normal. There is trace aortic regurgitation. Pulmonic Valve The pulmonic valve is not well visualized. This degree of valvular regurgitation is within normal limits. Vessels Mildly dilated aortic root. IVC diameter <2.1 cm collapsing >50% with sniff suggests a normal RA pressure of 3 mmHg. Pericardium There is no pericardial effusion. MMode/2D Measurements & Calculations IVSd: 1.0 cm LVIDd: 4.5 cm LVIDs: 3.2 cm LVPWd: 1.1 cm FS: 29.3 % LV mass(C)d: 167.8 grams LV mass(C)dI: 87.6 grams/m2 Ao root diam: 4.1 cm LA dimension: 4.9 cm asc Aorta Diam: 3.9 cm LA/Ao: 1.2 LVOT diam: 2.1 cm LVOT area: 3.5 cm2 Ao root diam index Ht(cm/m): 2.6 Ao root diam index BSA (cm/m2): 2.1 Asc Ao diam index BSA (cm/m2): 2.0 Asc Ao diam index Ht(cm/m): 2.5 EF Biplane: 45.1 % LA Volume (BP): 67.2 ml LA Volume Index (BP): 35.0 ml/m2 LA Volume Indexed (AL/bp): 38.2 ml/m2 RV Base: 4.1 cm RWT: 0.49 TAPSE: 1.0 cm Time Measurements MM HR: 87.0 BPM Doppler Measurements & Calculations MV E max waldemar: 74.6 cm/sec MV dec slope: 465.7 cm/sec2 MV dec time: 0.16 sec Ao V2 max: 92.8 cm/sec Ao max P.0 mmHg Ao V2 mean: 74.8 cm/sec Ao mean P.0 mmHg Ao V2 VTI: 18.8 cm YG(I,D): 2.3 cm2 YG(V,D): 2.8 cm2 LV V1 max P.3 mmHg LV V1 max: 75.0 cm/sec LV V1 VTI: 12.6 cm SV(LVOT): 43.5 ml SI(LVOT): 22.7 ml/m2 AV Waldemar Ratio (DI): 0.81 YG Index (cm2/m2): 1.2 E/E': 6.6 E/E' av.4 Lateral E/e': 6.6 Medial E/e': 12.3 Peak E' Waldemar: 11.4 cm/sec RV S Waldemar: 8.6 cm/sec Report approved by: Trupti Mao 11/14/2023 03:06 PM Procedure Note Lisandra Quinn MD - 11/14/2023 [id number] [facility] [id number]^KAI^[place] [address] Name: BRANDEE CORDOVA : 1960 Study Date: 11/14/2023 12:15 PM Age: 63 yrs Gender: Female Patient Location: [facility] Reason For Study: Atrial Fibrillation Ordering Physician: LISANDRA QUINN Performed By: DAYO BSA: 1.9 m2 Height: 62 in Weight: 201 lb HR: 97 BP: 102/67 mmHg Procedure Complete Portable Echo Adult. Kuldeep ([facility] #[id number]) givenintravenously. No hemodynamically significant valvular abnormalities on 2D or colorflow imaging. Interpretation Summary The left ventricle is normal in size. Left ventricular function is decreased. The ejection fraction is 50-55% (borderline). Normal right ventricle size and systolic function. The right atrium is mildly dilated. The left atrium is moderate to severely dilated. Mildly dilated aortic root. Left Ventricle The left ventricle is normal in size. Left ventricular function isdecreased. The ejection fraction is 50-55% (borderline). There is normal leftventricular wall thickness. Left ventricular diastolic function is normal. There is borderline global hypokinesia of the left ventricle. Right Ventricle Normal right ventricle size and systolic function. Atria The left atrium is moderate to severely dilated. The right atrium ismildly dilated. There is no color Doppler evidence of an atrial shunt. Mitral Valve Mitral valve leaflets appear normal. There is mild (1+) mitralregurgitation. Tricuspid Valve The tricuspid valve is not well visualized. This degree of valvular regurgitation is within normal limits. Aortic Valve Aortic valve leaflets appear normal. There is trace aorticregurgitation. Pulmonic Valve The pulmonic valve is not well visualized. This degree of valvular regurgitation is within normal limits. Vessels Mildly dilated aortic root. IVC diameter <2.1 cm collapsing >50% withsniff suggests a normal RA pressure of 3 mmHg. Pericardium There is no pericardial effusion. MMode/2D Measurements & Calculations IVSd: 1.0 cm LVIDd: 4.5 cm LVIDs: 3.2 cm LVPWd: 1.1 cm FS: 29.3 % LV mass(C)d: 167.8 grams LV mass(C)dI: 87.6 grams/m2 Ao root diam: 4.1 cm LA dimension: 4.9 cm asc Aorta Diam: 3.9 cm LA/Ao: 1.2 LVOT diam: 2.1 cm LVOT area: 3.5 cm2 Ao root diam index Ht(cm/m): 2.6 Ao root diam index BSA (cm/m2): 2.1 Asc Ao diam index BSA (cm/m2): 2.0 Asc Ao diam index Ht(cm/m): 2.5 EF Biplane: 45.1 % LA Volume (BP): 67.2 ml LA Volume Index (BP): 35.0 ml/m2 LA Volume Indexed (AL/bp): 38.2 ml/m2 RV Base: 4.1 cm RWT: 0.49 TAPSE: 1.0 cm Time Measurements MM HR: 87.0 BPM Doppler Measurements & Calculations MV E max waldemar: 74.6 cm/sec MV dec slope: 465.7 cm/sec2 MV dec time: 0.16 sec Ao V2 max: 92.8 cm/sec Ao max P.0 mmHg Ao V2 mean: 74.8 cm/sec Ao mean P.0 mmHg Ao V2 VTI: 18.8 cm YG(I,D): 2.3 cm2 YG(V,D): 2.8 cm2 LV V1 max P.3 mmHg LV V1 max: 75.0 cm/sec LV V1 VTI: 12.6 cm SV(LVOT): 43.5 ml SI(LVOT): 22.7 ml/m2 AV Waldemar Ratio (DI): 0.81 YG Index (cm2/m2): 1.2 E/E': 6.6 E/E' av.4 Lateral E/e': 6.6 Medial E/e': 12.3 Peak E' Waldemar: 11.4 cm/sec RV S Waldemar: 8.6 cm/sec Report approved by: Trupti Mao 11/14/2023 03:06 PM Lisandra Quinn MD CV ECHO ORDERABLES * Vitamin B1 whole blood (11/13/2023 9:13 PM CDT) [facility] Vitamin B1 Whole Blood Level 164 70 - 180 nmol/L 11/19/2023 12:24 PM CDT [employer] Comment: INTERPRETIVE INFORMATION: Vitamin B1, Whole Blood This assay measures the concentration of thiamine diphosphate (TDP), the primary active form of vitamin B1. Approximately 90 percent of vitamin B1 present in whole blood is TDP. Thiamine and thiamine monophosphate, which comprise the remaining 10 percent, are not measured. This test was developed and its performance characteristics determined by [facility]. It has not been cleared or approved by the [place] Food and Drug Administration. This test was performed in a CLIA certified laboratory and is intended for clinical purposes. Performed By: [facility] [address] [place] [id number] [employer] Operator: Chay Mendez MD, PhD CLIA Number: [id number] Blood STRUCTURE OF LEFT UPPER LIMB / Unknown Venipuncture / Unknown 11/13/2023 9:13 PM CDT 11/13/2023 9:16 PM CDT Sosa Pablo DO LAB - BLOOD ORDERABL ES [facility] Daio [address] [place] [id number], [facility] [phone] * CT Chest Pulmonary Embolism w Contrast (11/13/2023 4:50 PM CDT) Anatomical Region Laterality Modality Chest, SUBRAD CT BODY, UMP CT CHEST Computed Tomography 11/13/2023 4:50 PM CDT Impressions 11/13/2023 5:03 PM CDT IMPRESSION: 1. ??No PE, dissection, or aneurysm. 2. ??Slight prominence of central pulmonary artery which can be associated with pulmonary arterial hypertension. 3. ??Mild cardiomegaly with no evidence for active CHF. 4. ??Moderate coronary artery calcification. Narrative 11/13/2023 5:03 PM CDT EXAM: CT CHEST PULMONARY EMBOLISM W CONTRAST LOCATION: [facility] DATE: 11/13/2023 INDICATION: chest pain, a fib RVR, low INR COMPARISON: 07/11/2021 TECHNIQUE: CT chest pulmonary angiogram during arterial phase injection of IV contrast. Multiplanar reformats and MIP reconstructions were performed. Dose reduction techniques were used. CONTRAST: ISOVUE 370 75mL FINDINGS: ANGIOGRAM CHEST: The main pulmonary artery measures 3.3 cm which is slightly prominent size (normal is 3.2 cm or less, these changes can be seen with findings of central pulmonary arterial hypertension. There is no evidence for pulmonary emboli right heart strain. The thoracic aorta is normal in caliber with no underlying changes of a dissection identified. LUNGS AND PLEURA: Normal. MEDIASTINUM/AXILLAE: Mild cardiomegaly with no evidence for active CHF. CORONARY ARTERY CALCIFICATION: Moderate and most pronounced in the proximal LAD. UPPER ABDOMEN: Prior postoperative changes of the stomach with no complications identified. Benign cyst in the right kidney with no follow-up recommended. The gallbladder surgically absent. MUSCULOSKELETAL: Spinal stimulator. Moderate scattered degenerative changes in the spine. Procedure Note Nick Kaba MD - 11/13/2023 EXAM: CT CHEST PULMONARY EMBOLISM W CONTRAST LOCATION: [facility] DATE: 11/13/2023 INDICATION: chest pain, a fib RVR, low INR COMPARISON: 07/11/2021 TECHNIQUE: CT chest pulmonary angiogram during arterial phase injection ofIV contrast. Multiplanar reformats and MIP reconstructions were performed.Dose reduction techniques were used. CONTRAST: ISOVUE 370 75mL FINDINGS: ANGIOGRAM CHEST: The main pulmonary artery measures 3.3 cm which isslightly prominent size (normal is 3.2 cm or less, these changes can beseen with findings of central pulmonary arterial hypertension. There is noevidence for pulmonary emboli right heart strain. The thoracic aorta is normal in caliber with no underlyingchanges of a dissection identified. LUNGS AND PLEURA: Normal. MEDIASTINUM/AXILLAE: Mild cardiomegaly with no evidence for active CHF. CORONARY ARTERY CALCIFICATION: Moderate and most pronounced in theproximal LAD. UPPER ABDOMEN: Prior postoperative changes of the stomach with nocomplications identified. Benign cyst in the right kidney with nofollow-up recommended. The gallbladder surgically absent. MUSCULOSKELETAL: Spinal stimulator. Moderate scattered degenerativechanges in the spine. IMPRESSION: 1. No PE, dissection, or aneurysm. 2. Slight prominence of central pulmonary artery which can be associatedwith pulmonary arterial hypertension. 3. Mild cardiomegaly with no evidence for active CHF. 4. Moderate coronary artery calcification. Mauro Soliman MD G CT ORDERABLES * Extra Purple Top Tube (11/13/2023 2:48 PM CDT) Hold Specimen [facility] 11/13/2023 4:[address] [facility] Blood STRUCTURE OF RIGHT UPPER LIMB / Unknown Venipuncture / Unknown 11/13/2023 2:48 PM CDT 11/13/2023 2:52 PM CDT Mauro Soliman MD LAB - BLOOD ORDERABL ES [facility] [address] [place] [address], [facility] * Extra Green Top (Gillett Heparin) Tube (11/13/2023 2:48 PM CDT) Hold Specimen [facility] 11/13/2023 4:[address] [facility] Blood STRUCTURE OF RIGHT UPPER LIMB / Unknown Venipuncture / Unknown 11/13/2023 2:48 PM CDT 11/13/2023 2:52 PM CDT Mauro Soliman MD LAB - BLOOD ORDERABL ES Performing Organization Address [facility]/ZIP Co de Phone Number [facility] [address] * Extra Blue Top Tube (11/13/2023 2:48 PM CDT) Hold Specimen [facility] 11/13/2023 4:[address] [facility] Blood STRUCTURE OF RIGHT UPPER LIMB / Unknown Venipuncture / Unknown 11/13/2023 2:48 PM CDT 11/13/2023 2:52 PM CDT Mauro Soliman MD LAB - BLOOD ORDERABL ES Performing Organization Address [facility] de Phone Number [facility] [address] * Procalcitonin (11/13/2023 2:48 PM CDT) [facility] Signature Procalcitonin 0.09 <0.50 ng/mL 11/13/2023 3:[address] [facility] Comment: Interpretation and Recommendations <0.5 ng/mL: Systemic bacterial infection unlikely. Local bacterial infection is possible. 0.5-1.99 ng/mL: Systemic bacterial infection possible, but various other conditions are known to induce PCT as well. >=2.00 ng/mL: Systemic bacterial infection likely, unless other causes are known. Decision to start antibiotics should not be based on procalcitonin level alone. See Procalcitonin Guidance document for more details. [email or web address] Factors that may affect PCT levels (not all-inclusive): ?? - Increased PCT level ?Severe trauma/anthony ?Invasive surgery ?Cooling therapy after cardiac arrest/surgery ?Treatment with agents which stimulate cytokines ?Acute kidney injury ?Chronic kidney disease and end stage renal disease ?Acute graft vs host disease ?Non-specific shock causing decreased organ perfusion and/or infarction ?? - Normal or unchanged PCT level ?Early in infections (if low and infection is suspected, repeating in 6-12 hours is recommended) ?Chronic infections (endocarditis, osteomyelitis, prosthetic device/graft infections) ?Localized infections (cellulitis, wound infections, intra-abdominal abscess) Note: PCT has not been extensively studied in /, pediatrics, severe immunosuppression, and cystic fibrosis. Blood STRUCTURE OF RIGHT UPPER LIMB / Unknown Venipuncture / Unknown 11/13/2023 2:48 PM CDT 11/13/2023 2:52 PM CDT Mauro Soliman MD LAB - BLOOD ORDERABL ES Performing Organization Address [facility] de Phone Number [facility] [place] [address] * TSH with free T4 reflex (11/13/2023 2:48 PM CDT) [facility] TSH 1.68 0.30 - 4.20 uIU/mL 11/13/2023 3:[address] [facility] Blood STRUCTURE OF RIGHT UPPER LIMB / Unknown Venipuncture / Unknown 11/13/2023 2:48 PM CDT 11/13/2023 2:52 PM CDT Mauro Soliman MD LAB - BLOOD ORDERABL ES Performing Organization Address [facility] de Phone Number [facility] [address] MONTI[address] * (ABNORMAL) Nt probnp inpatient (BNP) (11/13/2023 2:48 PM CDT) Pathologist [facility] N terminal Pro BNP Inpatient 1,082(H) 0 - 900 pg/mL 11/13/2023 3:[address] [facility] Comment: Reference range shown and results flagged as abnormal are suggested inpatient cut points for confirming diagnosis if CHF in an acute setting. Establishing a baseline value for each individual patient is useful for follow-up. An inpatient or emergency department NT-proPBNP <300 pg/mL effectively rules out acute CHF, with 99% negative predictive value. The outpatient non-acute reference range for ruling out CHF is: 0-125 pg/mL (age 18 to less than 75) 0-450 pg/mL (age 75 yrs and older) Blood STRUCTURE OF RIGHT UPPER LIMB / Unknown Venipuncture / Unknown 11/13/2023 2:48 PM CDT 11/13/2023 2:52 PM CDT Mauro Soliman MD LAB - BLOOD ORDERABL ES Performing Organization Address [facility] Co de Phone Number [facility] [address] [place] [address] * Magnesium (11/13/2023 2:48 PM CDT) [facility] Magnesium 2.0 1.7 - 2.3 mg/dL 11/13/2023 3:[address] [facility] Blood STRUCTURE OF RIGHT UPPER LIMB / Unknown Venipuncture / Unknown 11/13/2023 2:48 PM CDT 11/13/2023 2:52 PM CDT Mauro Soliman MD LAB - BLOOD ORDERABL ES Performing Organization Address [facility] Co de Phone Number [facility] [address] [place] [address] Dr. [place] [address], [facility] * (ABNORMAL) Lipase (11/13/2023 2:48 PM CDT) [facility] Lipase 63(H) 13 - 60 U/L 11/13/2023 3:[address] [facility] Blood STRUCTURE OF RIGHT UPPER LIMB / Unknown Venipuncture / Unknown 11/13/2023 2:48 PM CDT 11/13/2023 2:52 PM CDT Mauro Soliman MD LAB - BLOOD ORDERABL ES Performing Organization Address City/[facility]/ZIP Co de Phone Number [facility] [address] [facility] [address] * (ABNORMAL) Iron and iron binding capacity (11/13/2023 2:48 PM CDT) Iron 29(L) 37 - 145 ug/dL 11/13/2023 9:[address] [facility] Iron Binding Capacity 440(H) 240 - 430 ug/dL 11/13/2023 9:[address] [facility] Iron Sat Index 7(L) 15 - 46 % 11/13/2023 9:[address] [facility] Blood STRUCTURE OF RIGHT UPPER LIMB / Unknown Venipuncture / Unknown 11/13/2023 2:48 PM CDT 11/13/2023 2:52 PM CDT Sosa Pablo DO LAB - BLOOD ORDERABL ES Performing Organization Address [facility] Co de Phone Number [facility] [address] [facility] [address] * (ABNORMAL) Hepatic function panel (11/13/2023 2:48 PM CDT) Protein Total 7.0 6.4 - 8.3 g/dL 11/13/2023 3:[address] [facility] Albumin 4.1 3.5 - 5.2 g/dL 11/13/2023 3:[address] [facility] Bilirubin Total 0.2 <=1.2 mg/dL 11/13/2023 3:[address] [facility] Alkaline Phosphatase 138 40 - 150 U/L 11/13/2023 3:[address] [facility] AST 48(H) 0 - 45 U/L 11/13/2023 3:[address] [facility] Comment:Reference intervals for this test were updated on 11/10/2022 to more accurately reflect our healthy population. There may be differences in the flagging of prior results with similar values performed with this method. Interpretation of those prior results can be made in the context of the updated reference intervals. ALT 53(H) 0 - 50 U/L 11/13/2023 3:[address] [facility] Comment:Reference intervals for this test were updated on 11/10/2022 to more accurately reflect our healthy population. There may be differences in the flagging of prior results with similar values performed with this method. Interpretation of those prior results can be made in the context of the updated reference intervals. Bilirubin Direct <0.20 0.00 - 0.30 mg/dL 11/13/2023 3:[address] [facility] Blood STRUCTURE OF RIGHT UPPER LIMB / Unknown Venipuncture / Unknown 11/13/2023 2:48 PM CDT 11/13/2023 2:52 PM CDT Mauro Soliman MD LAB - BLOOD ORDERABL ES Performing Organization Address [facility] Co de Phone Number [facility] [address] [place], [place] [address] * CRP inflammation (11/13/2023 2:48 PM CDT) CRP Inflammation <3.00 <5.00 mg/L 11/13/19 3:[address] [facility] Blood STRUCTURE OF RIGHT UPPER LIMB / Unknown Venipuncture / Unknown 11/13/2023 2:48 PM CDT 11/13/2023 2:52 PM CDT Mauro Soliman MD LAB - BLOOD ORDERABL ES Performing Organization Address City/[facility]/ZIP Co de Phone Number [facility] [address] [place], [place] [address] * ECG 12-LEAD WITH MUSE (LHE) (11/13/2023 2:42 PM CDT) Only the most recent of2 resultswithin the time period is included. Systolic Blood Pressure mmHg RADIOLOGY RESULTS Diastolic Blood Pressure mmHg RADIOLOGY RESULTS Ventricular Rate 137 BPM RAD IOLOGY RESULTS Atrial Rate 120 BPM RADIOLOG Y RESULTS WV Interval ms RADIOLOG Y RESULTS QRS Duration 78 ms RADIOLO GY RESULTS QT 334 ms RADIOLOGY RESULTS QTc 504 ms RADIOLOGY RESULTS P [place] degrees RADIOLOGY RESULTS R AXIS 7 degrees RADIOLOGY RESULTS T [place] 167 degrees RADIOLOGY RESULTS Interpretation ECG Atrial fibrillation with rapid ventricular response ST & T wave abnormality, consider lateral ischemia Abnormal ECG When compared with ECG of 13-NOV-2023 14:11, T wave inversion now evident in Anterolateral leads Confirmed by SEE ED PROVIDER NOTE FOR, ECG INTERPRETATION ([id number]), social media editor CLAYTON MAURO ([id number]) on 11/13/2023 6:14:52 PM RADIOLOGY RESULTS 11/13/2023 2:42 PM CDT 11/13/2023 6:14 PM CDT Mauro Soliman MD ECG ORDERABLES RADIOLOGY RESULTS * HOLTER MONITOR 24 HOUR APPLICATION SCAN ANALYSIS AND PROVIDER INTERPRETATION (10/14/2023 2:18 PM CDT) Anatomical Region Laterality Modality Ultrasound, Othe r 10/14/2023 2:11 PM CDT 11/18/2023 7:24 AM CDT Narrative 11/18/2023 7:24 AM CDT Holter monitoring from 10/14/2023 to 10/15/2023. Continuous atrial fibrillation, ventricular rates 81 to 153bpm, average 107bpm. There were no pauses of greater than 3 seconds. Rare premature ventricular contractions (<1%). No diary available for review. Electronically signed by Deidre Garcia MD 11/16/2023 ??2:52 PM Confirmed by JOSE ??ROBERTO BOLES LOC:BRIJESH ([id number]), social media editor Vladimir Gilbert () on 11/18/2023 7:24:18 AM Procedure Note Deidre Garcia MD - 11/18/2023 Holter monitoring from 10/14/2023 to 10/15/2023. Continuous atrial fibrillation, ventricular rates 81 to 153bpm, [id number]. There were no pauses of greater than 3 seconds. Rare premature ventricular contractions (<1%). No diary available for review. 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 Diabetes 6.5% or higher Note: Adopted from ADA consensus guidelines. Blood VENOUS BLOOD / Unknown Venipuncture / Unknown 07/05/2021 10:09 AM MACHINE CLOTHING WORKER 07/05/2021 10:09 AM MACHINE CLOTHING WORKER Deborah Walsh MD LAB - BLOOD ORDERABL ES [facility] [address] [facility] (no room number, 1st floor of clinic) [place] [address] [phone] * Lipid Profile [LAB18] (03/09/2015 3:11 PM CDT) Cholesterol 112 <200 mg/dL [facility] Comment: LDL Cholesterol is the primary guide to therapy. The NCEP recommends further evaluation of: patients with cholesterol greater than 200 mg/dL if additional risk factors are present, cholesterol greater than 240 mg/dL, triglycerides greater than 150 mg/dL, or HDL less than 40 mg/dL. Triglycerides 60 0 - 150 mg/dL [facility] HDL Cholesterol 69 >50 mg/dL [facility] LDL Cholesterol Calculated 32 0 - 129 mg/dL [facility] Comment: LDL Cholesterol is the primary guide to therapy: LDL-cholesterol goal in high risk patients is <100 mg/dL and in very high risk patients is <70 mg/dL. VLDL-Cholesterol 12 0 - 30 mg/dL [facility] Cholesterol/HDL Ratio 1.6 0.0 - 5.0 [facility] Blood specimen (specimen) 03/09/2015 3:11 PM CDT 03/09/2015 3:12 PM CDT Brittney Daniel APRN [employer] LAB - BLOOD O RDERABLES [facility] [address] [place] [address] from Last 3 Months or Most Recently Relevant to Health Maintenance Advance Directives For more information, please contact: [phone] * Full Code (Latest Code Status on File) Date Activated Date Inactivated Comments 11/13/2023 8:09 PM 11/16/2023 3:40 PM All basic an d advanced life-sustaining interventions are performed as appropriate Question Answer Comments Code status determined by: Discussion with patie nt/ legal decision maker * Full Code Date Activated Date Inactivated Comments 07/09/2021 11:23 AM 07/13/2021 7:43 PM All basic an d advanced life-sustaining interventions are performed as appropriate Question Answer Comments Code status determined by: Discussion with patie nt/ legal decision maker Care Teams Body Sander Relationship Specialty Start Date End Date Adams Barrera [address] [facility] [address] [place] [address] PCP - General 03/30/20 Celia Kumar MD [address] [facility] [address] [place] [address] Plastic Surgery 04/20/15 Charan Corbin MD [address] [facility] [address] [place] [address] INTERNAL MEDICINE - ENDOCRINOLOGY, DIABETES & METABOLISM 06/19/15 [place] [address] [place] [address] Assigned PCP 03/21/21 Greta Thao APRN [employer] [facility] [place] [address] [place] [address] Nurse Practitioner Cardiology 06/09/23 Greta Thao APRN [employer] [facility] [place] [address] [place] [address] Assigned Heart and Vascular Provider 06/25/23
--- OUTSIDE RECORDS SUMMARY | 2023-11-30 08:38 | XMS_ITS | Clinical Summary ---
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 03/27/2020 2:38 PM * Full [...] 6:02 PM 03/03/2016 1:15 PM Care Teams Slagger Relationship Specialty [place] [address] [place] [address] PCP - General Family Practice 09/16/23 Celia Kumar MD [address] [address] [place], [place] [id number] Plastic and Reconstructive Surgery 10/31/19 Shi Ware RN [address] [address] Registered Nurse 06/12/20 Gricelda Meredith, ANDREINA [address] [address] Consulting Physician Nurse Practitioner - Adult 06/12/20 Minoo Hugo CNS [address] [place], [place] [address] Nurse Practitioner Clinical Nurse Specialist 09/06/[address] [place] [address] Registered Dietitian French Folding Machine Operator 09/06/20
--- OUTSIDE RECORDS SUMMARY | 2023-11-30 08:39 | XMS_ITS | Encounter Summary ---
Author Organization [facility] Address [address] [place] [address] Care Team Providers Care Parts Sales Representative Name Role Phone Celia Kumar Fortino Garcia MD Unavailable [phone] Charan Corbin MD Unavailable [phone] Adams Barrera Primary Care Provider [phone] Deborah Walsh MD Unavailable Greta Thao APRN QUALITY CONTROL INSPECTOR HEADING Unavailable [phone] Greta Thao APRN QUALITY CONTROL INSPECTOR HEADING Unavailable [phone] Encounter Details Date Type Department Care Team (Latest Contact Info) Description 11/18/2023 Travel Social History Tobacco Use Types Packs/Day [...] file 07/05/2021 [facility]? More than 4 times per year [...] Answer Date Recorded PHQ-2 Score 1 07/20/2019 [facility] - Occupational [...] Description 12/10/2023 9:30 AM CDT Office Visit [facility] [place] [id number] [place] [address] [address] [place], [place] [address] [place] [address] [place], [place] [id number] documented as of this encounter Visit Diagnoses Not on filedocumented in this encounter Care Teams Parts Sales Representative Relationship Specialty Start Date End Date Adams Barrera [address] [address] PCP - General 03/30/20 Celia Kumar MD [address] [address] Plastic Surgery 04/20/15 Charan Corbin MD [address] [facility] [address] [place], [place] [address] INTERNAL MEDICINE - ENDOCRINOLOGY, DIABETES & METABOLISM 06/19/15 [place] [address] [place], [place] [id number] Assigned PCP 03/21/21 Greta Thao APRN QUALITY CONTROL INSPECTOR [facility] [place] [address] [place] [address] Nurse Practitioner Cardiology 06/09/23 Greta Thao APRN QUALITY CONTROL INSPECTOR [facility] [address] [place] [address] Assigned Heart and Vascular Provider 06/25/23 documented as of this encounter
--- OUTSIDE RECORDS SUMMARY | 2023-11-30 08:39 | XMS_ITS | Encounter Summary ---
Author Organization [facility] Address [address] [place] [id number] Care Team Providers Care Dra[employer] Name Role Phone Celia Kumar Fortino Garcia MD Unavailable [phone] Charan Corbin MD Unavailable [phone] Adams Barrera Primary Care Provider [phone] Deborah Walsh MD Unavailable Greta Thao APRN BEVELLER OPERATOR Unavailable [phone] Greta Thao APRN BEVELLER OPERATOR Unavailable [phone] Reason for Visit * Reason Comments Hypotension Encounter Details Date Type Department Care Team (Late st Contact Info) Description 11/18/2023 12:22 AM CDT - 11/18/2023 4:39 AM CDT [facility] Emergency Dept [address] [place] [address] Shi Tabor MD [facility] [address] [place], [place] [id number] Volume depletion; Transient hypotension; Persistent atrial fibrillation [...] How often do you attend chur or rastafarian services? More than 4 times per year 07/05/2021 Do you belong to any clubs o r organizations such as baptism groups, unions, fraternal or athletic groups, or [...] Answer Date Recorded PHQ-2 Score 1 07/20/2019 [facility] Occupat ional Health - Occupational Stress [...] place to sleep or slept in a alf (including now)? No 07/05/2021 Adolescent Education Answer [...] CDT Temperature 36.5 ??C (97.7 ??F) 11/18/2023 12:40 AM C DT Respiratory Rate 14 11/18/2023 3:45 AM CDT [...] lungs every 6 hours as needed 01/02/2019 apixaban ANTICOAGULANT (ELIQUIS) 5 MG tabletIndications:Afib -non valvular Take 1 tablet (5 mg) by mouth 2 times daily 180 tablet 11/16/2023 atorvastatin 40 MG PO tablet Take 40 mg by mouth At Bedtime 01/29/2019 azelastine 0.1 % NA nasal sprayIndications:aller gies [place] 1 spray into both nostrils 2 times daily 02/18/2016 buprenorphine HCl-naloxone HCl (SUBOXONE) 8-[address] 1 Film under the tongue every morning busPIRone (BUSPAR) 15 MG tablet Take 15 mg by mouth every 6 hours as needed (anxiety) clobetasol propionate (TEMOVATE) 0.05 % external cream Apply topically 2 times daily as needed (dry feet) Apply to affected areas on feet twice daily as needed. cloNIDine (CATAPRES) 0.1 MG tablet Take 0.1 mg by mouth every 6 hours as needed (for withdrawal) Cyanocobalamin 1000 MCG CAPS Take 1,000 mcg by mouth every morning diazepam (VALIUM) 5 MG tablet Take 5 mg by mouth See Admin Instructions Take 30 minutes prior to procedure diltiazem ER COATED BEADS (CARDIZEM CD/CARTIA XT) 120 MG 24 hr capsuleIndications:Atr ial fibrillation with RVR (H) Take 1 capsule (120 mg) by mouth daily 90 capsule 11/16/2023 fluticasone (FLONASE) 50 MCG/ACT nasal spray [place] 1 spray into both nostrils 2 times daily 02/08/2020 fluticasone-salmeterol (ADVAIR) 250-50 MCG/DOSE inhalerIndications:Ast hma Inhale 1 puff into the lungs 2 times daily 12/14/2020 glycerin (ADULT) [address] 1 suppository rectally daily as needed for constipation haloperidol (HALDOL) 1 MG tablet Take 1 mg by mouth every 6 hours as needed for agitation May repeat twice in 24 hour period hydrocortisone, Perianal, (ANUSOL-HC) 2.5 % cream Place rectally 2 times daily as needed for hemorrhoids ipratropium - albuterol 0.5 mg/2.5 mg/3 mL (DUONEB) 0.5-2.5 (3) MG/3ML neb solution Take 1 vial by nebulization 2 times daily 02/25/2021 ketoconazole (NIZORAL) 2 % external shampoo Apply topically three times a week Wash affected areas on body and chest three times weekly. Lather and let sit 3-5 minutes before rinsing. lisinopril (ZESTRIL) 10 MG tablet Take 10 mg by mouth every morning loperamide (IMODIUM) 2 MG capsule Take 2 mg by mouth 4 times daily as needed for diarrhea loratadine (CLARITIN) 10 MG tablet Take 10 mg by mouth every morning 01/25/2021 methocarbamol (ROBAXIN) 500 MG tablet Take 500 mg by mouth 2 times daily as needed for muscle spasms metroNIDAZOLE (METROCREAM) 0.75 % external cream Apply topically 2 times daily Apply to affected areas on face. Apply a thin layer 1-2 times daily. mupirocin (BACTROBAN) 2 % external ointment Apply topically daily Apply a thin layer to the open sores on the body daily. naloxone (NARCAN) 4 MG/0.1ML nasal spray [place] 4 mg into one nostril alternating nostrils as needed for opioid reversal every 2-3 minutes until assistance arrives nystatin [id number] UNIT/GM EX external powder Apply topically 2 times daily as needed for dry skin 03/19/2019 omeprazole (PRILOSEC) [address] capsule Take 20 mg by mouth every morning ondansetron (ZOFRAN-ODT) [address] 4 mg under the tongue every 8 hours as needed for nausea polyethylene glycol (MIRALAX) 17 g packet Take 1 packet by mouth every morning rOPINIRole (REQUIP) 0.5 MG tablet Take 0.5 mg by mouth nightly as needed senna-docusate (SENOKOT-S/PERICOLACE) 8.6-50 MG tablet Take 1 tablet by mouth 2 times daily sertraline (ZOLOFT) 100 MG tablet Take 200 mg by mouth every morning 01/25/2021 SM GAS RELIEF EXTRA STRENGTH 125 MG PO CAPSIndications:Flatul ence Take 1 capsule by mouth 4 times daily as needed 07/15/2019 SUMAtriptan (IMITREX) 50 MG tablet Take 50 mg by mouth at onset of headache for migraine May repeat x1 in 2 hours if needed. 06/10/2021 tacrolimus (PROTOPIC) 0.1 % external ointment Apply topically 2 times daily Apply a thin layer to affected areas on body 1-2 times daily. torsemide 20 MG PO tablet Take 20 mg by mouth daily 04/25/2019 triamcinolone (KENALOG) 0.1 % external cream Apply topically 2 times daily Apply topically to affected areas on arms twice daily. zolpidem (AMBIEN) 5 MG tablet Take 5 mg by mouth At Bedtime 06/17/2021 Incontinence Supply Disposable (DEPEND FITTED BRIEFS SM/MED) MISC For home use. Will use 2 per day. Size large. 04/28/2018 metoprolol tartrate (LOPRESSOR) 100 MG tabletIndications:Atri al fibrillation with RVR (H) Take 0.5 tablets (50 mg) by mouth every morning AND 1 tablet (100 mg) every evening. Do all this for 60 days. 90 tablet 11/18/2023 01/17/2024 documented as of this encounter ED Notes * Karla Fu RN - 11/18/2023 4:19 AM CDT Assisted pt to get up and use bedside commode, pt was able to stand and move steadily on her feet. Assisted pt to get dress, and change diaper. Pt stated she is unable to get a cab. Called pt's daughter Ashlyn x3 and Keyla Rivas ([phone]) x2, no answer. Pt then received call back from Keyla,and reported unable to provide a ride. Pt was unable to reach [facility] at the moment. Pt was not qualifies for Wheelchair Van, therefore pt was assisted to WR to wait for her ride when available. PtVSS and alert oriented when assist to WR. * Padmini Enrique RN - 11/18/2023 12:24 AM CDT Pt arrives via EMS, pt's daughter called EMS because pt was reportedly sitting up in her chair unresponsive / altered. A&Ox4 for EMS, AOx4 on ED arrival talking and interactive. EMS initiated IV access and vasopressors, arrives with 0.1 mcg/kg norepinephrine, paused on arrival per MD Tabor order. Recently admitted to hospital for atrial fibrillation with RVR. * Padmini Enrique RN - 11/18/2023 12:22 AM CDT Bed: ED03 Expected date: 11/18/23 Expected time: 12:15 AM Means of arrival: Comments: Red Team * Shi Tabor MD - 11/18/2023 12:22 AM CDT Emergency Department Note History of Present Illness Chief Complaint Hypotension HPI Brandee Brown is a 63 year old female with history of atrial fibrillation heart failure reduced ejection fraction of 20%, type 2 diabetes, stroke, and chronic back pain, presenting via ambulance for evaluation of hypotension. Per paramedics, daughter was called because the patient was seen karl staring off and space. When S rig arrived, she was hypotensive with systolics in the 50s, which the EMS paramedics found as well. They started 16-gauge IV, gave her about 700 cc of IV fluid, andstarted her on a low-dose of Levophed. During transport, they had maps in the 70-75 range. On scene, they describe that several of the patient's daughters were present, and seem to be under the influence of marijuana. The patient herself admits to using marijuana today, which she says that she smokes. She denies any alcohol use. She states that she has had multiple episodes of vomiting and diarrhea since being discharged from the hospital. She denies any black or bloody stools. She has not had fevers or chills. She has mild lower abdominal pain. Patient is asking for Dilaudid, she states she cannot take Tylenol because it irritates her stomach. Independent Historian EMS as detailed above. Review of External Notes I reviewed discharge summary from yesterday. Patient was admitted with A-fib with RVR, subtherapeutic INR. Metoprolol was increased from 50 mg to 100 mg twice daily. Patient was transition from warfarin to Eliquis. She was started on diltiazem once a day. Digoxin was discontinued. She has history of alcohol abuse, distant history of meth and cocaine use. She requested Dilaudid frequently during her hospitalization. Past Medical History Medical History and Problem List Past Medical History: Diagnosis Date Alcohol abuse Anemia Anxiety Arthritis Asthma Bipolar 1 disorder Cerebrovascular accident, hemorrhagic 2016 CHF (congestive heart failure) Chronic back pain Depression Diabetes mellitus Gastroesophageal reflux disease History of cocaine 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/2010 Hypertension Obesity Paroxysmal atrial fibrillation 2018 Peptic ulcer disease PTSD (post-traumatic stress disorder) Rosacea Medications albuterol (VENTOLIN HFA) 108 (90 Base) MCG/ACT IN inhaler apixaban ANTICOAGULANT (ELIQUIS) 5 MG tablet atorvastatin 40 MG PO tablet azelastine 0.1 % NA nasal spray buprenorphine HCl-naloxone HCl (SUBOXONE) 8-2 MG per film busPIRone (BUSPAR) 15 MG tablet clobetasol propionate (TEMOVATE) 0.05 % external cream cloNIDine (CATAPRES) 0.1 MG tablet Cyanocobalamin 1000 MCG CAPS diazepam (VALIUM) 5 MG tablet diltiazem ER COATED BEADS (CARDIZEM CD/CARTIA XT) 120 MG 24 hr capsule fluticasone (FLONASE) 50 MCG/ACT nasal spray fluticasone-salmeterol (ADVAIR) 250-50 MCG/DOSE inhaler glycerin (ADULT) 2 g suppository haloperidol (HALDOL) 1 MG tablet hydrocortisone, Perianal, (ANUSOL-HC) 2.5 % cream Incontinence Supply Disposable (DEPEND FITTED BRIEFS SM/MED) MISC ipratropium - albuterol 0.5 mg/2.5 mg/3 mL (DUONEB) 0.5-2.5 (3) MG/3ML neb solution ketoconazole (NIZORAL) 2 % external shampoo lisinopril (ZESTRIL) 10 MG tablet loperamide (IMODIUM) 2 MG capsule loratadine (CLARITIN) 10 MG tablet methocarbamol (ROBAXIN) 500 MG tablet metoprolol tartrate (LOPRESSOR) 100 MG tablet metroNIDAZOLE (METROCREAM) 0.75 % external cream mupirocin (BACTROBAN) 2 % external ointment naloxone (NARCAN) 4 MG/0.1ML nasal spray nystatin [id number] UNIT/GM EX external powder omeprazole (PRILOSEC) [address] capsule ondansetron (ZOFRAN-ODT) 4 MG ODT tab polyethylene glycol (MIRALAX) 17 g packet rOPINIRole (REQUIP) 0.5 MG tablet senna-docusate (SENOKOT-S/PERICOLACE) 8.6-50 MG tablet sertraline (ZOLOFT) 100 MG tablet SM GAS RELIEF EXTRA STRENGTH 125 MG PO CAPS SUMAtriptan (IMITREX) 50 MG tablet tacrolimus (PROTOPIC) 0.1 % external ointment torsemide 20 MG PO tablet triamcinolone (KENALOG) 0.1 % external cream zolpidem (AMBIEN) 5 MG tablet Surgical History Past Surgical History: Procedure Laterality Date Abdominal hernia repair with mesh ANKLE SURGERY ARTHROPLASTY HIP Left ARTHROPLASTY KNEE Right 07/09/2021 Procedure: RIGHT TOTAL KNEE ARTHROPLASTY; Surgeon: Jamin Siegel MD; Location: [facility] ARTHROPLASTY SHOULDER Left BAND HEMORRHOIDECTOMY BLADDER SUSPENSION CHOLECYSTECTOMY ESOPHAGOSCOPY, GASTROSCOPY, DUODENOSCOPY (EGD), COMBINED N/A 05/02/2015 Procedure: COMBINED ESOPHAGOSCOPY, GASTROSCOPY, DUODENOSCOPY (EGD), BIOPSY SINGLE OR MULTIPLE; Surgeon: Dionte Rodriges MD; Location: [facility]IC [facility] 2002 HYSTERECTOMY LUMBAR FUSION PANNICULECTOMY N/A 06/04/2020 Procedure: PANNICULECTOMY; Surgeon: Celia Kumar MD; Location: OR SINUS SURGERY SPINAL CORD STIMULATOR IMPLANT ZZC TOTAL HIP ARTHROPLASTY Right 11/06/2020 Procedure: RIGHT POSTERIOR APPROACH TOTAL HIP ARTHROPLASTY; Surgeon: Jamin Siegel MD; Location: [facility]; Service: Orthopedics Physical Exam Patient Vitals for the past 24 hrs: BP Temp Temp src Pulse Resp SpO2 11/18/23 0040 -- 97.7 ??F (36.5 ??C) Temporal -- -- -- 11/18/23 003 -- -- -- 72 17 94 % 11/18/23 0030 (!) 89/73 -- -- 72 -- 100 % 11/18/23 0029 -- -- -- -- -- 96 % 11/18/23 0027 (!) 103/92 -- -- 107 -- -- Physical Exam General: awake, restless. HENT: mucous membranes dry CV: Regular rate, irregularly irregular rhythm. Resp: normal effort, clear throughout, no crackles or wheezing GI: abdomen soft and nontender, no guarding MSK: tenderness to the right hip, chronic per patient. Skin: appropriately warm and dry, no rash. Cheeks pink. Extremities: no edema, calves non-tender. Warm extremities. Neuro: Slurred speech, moving all extremities equally. Psych: Restless, somewhat rambling speech, cooperative. Diagnostics Lab Results Labs Ordered and Resulted from Time of ED Arrival to Time of ED Departure COMPREHENSIVE METABOLIC PANEL - Abnormal Result Value Sodium 131 (*) Potassium 3.9 Carbon Dioxide (CO2) 17 (*) Anion Gap 16 (*) Urea Nitrogen 22.6 Creatinine 1.11 (*) GFR Estimate 56 (*) Calcium 8.8 Chloride 98 Glucose 218 (*) Alkaline Phosphatase 132 AST 39 ALT 44 Protein Total 6.9 Albumin 3.8 Bilirubin Total 0.2 LACTIC ACID WHOLE BLOOD - Abnormal Lactic Acid 3.1 (*) TROPONIN T, HIGH SENSITIVITY - Abnormal Troponin T, High Sensitivity 17 (*) INR - Abnormal INR 1.48 (*) ETHYL ALCOHOL LEVEL - Abnormal Alcohol ethyl 0.20 (*) CBC WITH PLATELETS AND DIFFERENTIAL - Abnormal WBC Count 14.3 (*) RBC Count 4.71 Hemoglobin 10.3 (*) Hematocrit 36.3 MCV 77 (*) MCH 21.9 (*) MCHC 28.4 (*) RDW 20.4 (*) Platelet Count 269 % Neutrophils 72 % Lymphocytes 15 % Monocytes 8 % Eosinophils 3 % Basophils 1 % Immature Granulocytes 2 NRBCs per 100 WBC 0 Absolute Neutrophils 10.3 (*) Absolute Lymphocytes 2.1 Absolute Monocytes 1.1 Absolute Eosinophils 0.4 Absolute Basophils 0.1 Absolute Immature Granulocytes 0.2 Absolute NRBCs 0.0 GLUCOSE BY METER - Abnormal GLUCOSE BY METER POCT 197 (*) LACTIC ACID WHOLE BLOOD - Abnormal Lactic Acid 2.5 (*) TROPONIN T, HIGH SENSITIVITY - Normal Troponin T, High Sensitivity 13 ROUTINE UA WITH MICROSCOPIC REFLEX TO CULTURE Imaging No orders to display EKG ECG results from 11/18/23 EKG 12 lead Value Systolic Blood Pressure Diastolic Blood Pressure Ventricular Rate 70 Atrial Rate MS Interval QRS Duration 92 QT 440 QTc 475 P Avilla R AXIS 48 T Avilla 0 Interpretation ECG Atrial fibrillation Nonspecific ST abnormality Abnormal ECG When compared with ECG of 13-NOV-2023 14:42, Vent. rate has decreased BY 67 BPM T wave inversion no longer evident in Lateral leads Independent Interpretation None ED Course Medications Administered Medications lactated ringers BOLUS 1,000 mL (0 mLs Intravenous Stopped 11/18/23 0201) dextrose 5% and 0.45% NaCl infusion (0 mLs Intravenous Stopped 11/18/23 0338) Procedures Procedures Discussion of Management None Social Determinants of Health adding to complexity of care None ED Course ED Course as of 11/18/23 0307 ThuNov 18, 2023 0042 I spoke to the patient's daughter, Ashlyn. Sister was staying with the patient, when sister went into her room, patient's eyes had rolled back, patient was unresponsive, they thought she might have . They then called 911. Patient then woke up and said what are you doing? 0306 Patient was ambulatory in the ED with steady gait; elected to use the commode secondary to incontinence. Medical Decision Making / Diagnosis [facility] Diagnoses: I do not suspect sepsis as a cause of the patient's elevated lactate. She appears volume depleted, and does not have any source of infection or fever. Think volume depletion is likely the cause of elevated lactate. MIPS None [facility] Brandee Brown is a 63 year old female with history of atrial fibrillation, CHF with an EF of 20%, chronic back pain, presenting today with hypotension. Upon arrival, the patient appeared disinhibited, with slightly slurred speech. This is improved with observation in the ED. She was also hypotensive, initially on a Levophed drip. Levophed was stopped upon transfer to the ED [facility]. Patient has responded well to fluid resuscitation with normalization of blood pressure. She is currently ambulatory without dizziness. The cause of hypotension seems multifactorial, likely related to volume depletion given recent history of vomiting and diarrhea. In addition, the patient was started on increased dose of metoprolol, as well as diltiazem prior to discharge 2 days ago. The patient denied alcohol use, but blood alcohol level returned elevated at 0.2. This point, I do not suspect sepsis. Patient was noted to have an elevated lactate as well as leukocytosis. However, she does not have any obvious source of infection based on history, review of systems, or exam. Urinalysis is still pending. Patient was noted to have an elevated troponin, but this has decreased. EKG demonstrates rate controlled atrial fibrillation. During her ED stay, the patient has been asking frequently for Dilaudid,which contraindicated given hypotension and altered mental status. The patient's mental status has i mproved with observation in the ED, and she currently appears clinically sober. We will decrease metoprolol slightly to 50mg in the morning, 100mg in the evening. I have recommended avoiding alcohol,which is vasodilatory and will increase likelihood of holiday heart. At this point, she is safe for discharge back to assisted living. She will be signed out to my colleague awaiting a cab ride home. Disposition The patient was discharged. ICD-10 Codes: ICD-10-CM 1. Volume depletion E86.9 2. Transient hypotension I95.9 3. Persistent atrial fibrillation (H) I48.19 4. Alcoholic intoxication without complication (H24) F10.920 Discharge Medications Metoprolol 50 mg in the morning, 100 mg in the evening. MD Sharona Gonzalez Tracy Lynn, MD 11/18/23 1246 documented in this encounter Plan of Treatment Upcoming Encounters Date Type Department Care Team (Late st Contact Info) Description 12/10/2023 9:30 AM CDT Office Visit [facility] Pain Management [place] [id number] [place] [address] [address] [place], [place] [address] [place] [id number] [place] JOE LOZA [id number] documented as of this encounter Procedures Procedure Name Priority Date/Time Associated Diagnosis Comments URINE DRUG SCREEN STAT 11/18/2023 3:5 5 AM CDT ROUTINE UA WITH MICROSCOPIC REFLEX TO CULTURE STAT 11/18/2023 3:55 AM CDT URINE DRUG SCREEN PANEL STAT 11/18/2023 3:55 AM CDT TROPONIN T, HIGH SENSITIVITY STAT 11/18/2023 2:23 AM CDT LACTIC ACID WHOLE BLOOD STAT 11/18/2023 2:23 AM CDT CBC WITH PLATELETS AND DIFFERENTIAL STAT 11/18/2023 12:34 AM CDT TROPONIN T, HIGH SENSITIVITY STAT 11/18/2023 12:34 AM CDT CBC WITH PLATELETS & DIFFERENTIAL STAT 11/18/2023 12:34 AM CDT INR STAT 11/18/2023 12:34 AM CDT LACTIC ACID WHOLE BLOOD STAT 11/18/2023 12:34 AM CDT COMPREHENSIVE METABOLIC PANEL STAT 11/18/2023 12:34 AM CDT ETHYL ALCOHOL LEVEL STAT 11/18/2023 1 2:34 AM CDT GLUCOSE BY METER STAT 11/18/2023 12:3 1 AM CDT EKG 12-LEAD, TRACING ONLY STAT 11/18/2023 12:27 AM CDT documented in this encounter Results * Urine Drug Screen Panel (11/18/2023 3:55 AM CDT) [facility] Amphetamines Urine Screen Negative Screen Negative 11/18/2023 [...] Negative Screen Negative 11/18/2023 4:20 AM CDT LABORATORY Comment:Cutoff for negative fentanyl is less than 5 ng/mL. Opiates Urine Screen Negative Screen Negative 11/18/2023 4:20 AM CDT LABORATORY Comment:Cutoff for a negativ e opiate is less than 300 ng/mL. PCP Urine Screen Negative Screen Negative 11/18/2023 4:20 AM CDT LABORATORY Comment:Cutoff for a negativ e PCP is less than 25 ng/mL. Urine URINE SPECIMEN OBTAINED BY CLEAN CATCH PROCEDURE / Unknown Non-blood Collection / Unknown 11/18/2023 3:55 AM CDT 11/18/2023 3:58 AM CDT Shi Tabor MD LAB - URINE ORDERAB LES LABORATORY [facility] Lab [address] [facility] Lab (1st floor, no room number) [place] [address] * UA with Microscopic reflex to Culture (11/18/2023 3:55 AM CDT) Color Urine Straw Colorless, Straw, Light Yellow, Yellow 11/18/2023 4:04 AM CDT LABORATORY Appearance Urine Clear Clear 11/18/19 4:04 AM CDT LABORATORY Glucose Urine Negative Negative mg/dL 11/18/2023 4:04 AM CDT LABORATORY Bilirubin Urine Negative Negative 4:04 AM CDT LABORATORY Ketones Urine Negative Negative mg/dL 11/18/2023 4:04 AM CDT LABORATORY Specific [place] Urine 1.004 1.003 - 1.035 11/18/2023 4:04 AM CDT LABORATORY Blood Urine Negative Negative 11/18/2023 4:04 AM CDT LABORATORY pH Urine 6.0 5.0 - 7.0 11/18/2023 4:04 AM CDT LABORATORY Protein Albumin Urine Negative Negative mg/dL 11/18/2023 4:04 AM CDT LABORATORY Urobilinogen Urine Normal Normal, 2.0 mg/dL 11/18/2023 4:04 AM CDT [facility] Nitrite Urine Negative Negative 11/18/2023 4:04 AM CDT [facility] Leukocyte Esterase Urine Negative Negative 11/18/2023 4:04 AM CDT [facility] RBC Urine 0 <=2 /HPF 11/18/2023 4:04 AM CDT [facility] WBC Urine <1 <=5 /HPF 11/18/2023 4:04 AM CDT [facility] Squamous Epithelials Urine <1 <=1 /HPF 11/18/2023 4:04 AM CDT [facility] Urine URINE SPECIMEN OBTAINED BY CLEAN CATCH PROCEDURE / Unknown Non-blood Collection / Unknown 11/18/2023 3:55 AM CDT 11/18/2023 3:58 AM CDT Narrative [facility] - 11/18/2023 4:04 AM CDT Urine Culture not indicated Shi Tabor MD LAB - URINE ORDERAB LES LABORATORY [facility] Lab [address] (1st floor, no room number) [address] * (ABNORMAL) Lactic acid whole blood (11/18/2023 2:23 AM CDT) Lactic Acid 2.5(H) 0.7 - 2.0 mmol/L 11/18/2023 2:41 AM CDT LABORATORY Blood BLOOD SPECIMEN / Unknown Venipuncture / Unknown 11/18/2023 2:23 AM CDT 11/18/2023 2:39 AM CDT Shi Tabor MD LAB - BLOOD ORDERAB LES LABORATORY [facility] [address] Lab (1st floor, no room number) [address] * Troponin T, High Sensitivity (11/18/2023 2:23 AM CDT) Troponin T, High Sensitivity 13 <=14 ng/L [...] Tabor MD LAB - BLOOD ORDERAB LES [facility] LABORATORY [facility] [address] [facility] Lab (1st floor, no room number) [place] [address] * (ABNORMAL) CBC with platelets and differential (11/18/2023 12:34 AM CDT) WBC Count 14.3(H) 4.0 - 11.0 10e3/uL [...] LAB - BLOOD ORDERABL ES RH LABORATORY [facility] [address] [facility] Lab (1st floor, no room number) [address] * (ABNORMAL) Alcohol level blood (11/18/2023 12:34 AM CDT) Alcohol ethyl 0.20(H) <=0.01 g/dL 11/18/2023 1:06 AM CDT LABORATORY Blood BLOOD SPECIMEN / Unknown Venipuncture / Unknown 11/18/2023 12:34 AM CDT 11/18/2023 12:42 AM CDT Shi Tabor MD LAB - BLOOD ORDERAB LES LABORATORY [facility] [address] [facility] Lab (1st floor, no room number) [address] * (ABNORMAL) INR (11/18/2023 12:34 AM CDT) INR 1.48(H) 0.85 - 1.15 11/18/2023 12:57 AM CDT LABORATORY Blood BLOOD SPECIMEN / Unknown Venipuncture / Unknown 11/18/2023 12:34 AM CDT 11/18/2023 12:42 AM CDT Champ Madrid MD LAB - BLOOD ORDERABL ES Performing Organization Address [facility]/ZIP Co de Phone Number [facility] [address] Lab (1st floor, no room number) [address] * (ABNORMAL) Troponin T, High Sensitivity (now) (11/18/2023 12:34 AM CDT) Troponin T, High Sensitivity 17(H) <=14 ng/L 11/18/2023 1:06 AM CDT LABORATORY Comment: Either a High [...] - BLOOD ORDERABL ES Performing Organization Address City/[facility]/ZIP Co de Phone Number [facility] Lab [address] Lab (1st floor, no room number) [address] [place] [address] * (ABNORMAL) Lactic acid whole blood (11/18/2023 12:34 AM CDT) Lactic Acid 3.1(H) 0.7 - 2.0 mmol/L 11/18/2023 12:42 AM CDT LABORATORY Blood BLOOD SPECIMEN / Unknown Venipuncture / Unknown 11/18/2023 12:34 AM CDT 11/18/2023 12:40 AM CDT Champ Madrid MD LAB - BLOOD ORDERABL ES LABORATORY [facility] [address] Lab (1st floor, no room number) [place] [id number] * (ABNORMAL) Comprehensive metabolic panel (11/18/2023 12:34 AM CDT) Sodium 131(L) 135 - 145 mmol/L 11/18/2023 1:09 AM CDT LABORATORY Comment:Reference intervals for this test were [...] MD LAB - BLOOD ORDERABL ES LABORATORY [facility] [address] Lab (1st floor, no room number) [place] [address] * (ABNORMAL) Glucose by meter (11/18/2023 12:31 AM CDT) GLUCOSE BY METER POCT 197(H) 70 - 99 mg/dL 11/18/2023 12:38 AM CDT LABORATORY POC Blood, venous BLOOD SPECIMEN / Unknown 11/18/2023 12:31 AM CDT 11/18/2023 12:38 AM CDT Shi Tabor MD LAB - BEAKER POCT LABORATORY [facility] Lab [address] Lab (1st floor, no room number) [place] [id number] * EKG 12 lead (11/18/2023 12:27 AM CDT) Systolic Blood Pressure mmHg RADIOLOGY RESULTS Diastolic Blood Pressure mmHg RADIOLOGY RESULTS Ventricular Rate 70 BPM RAD IOLOGY RESULTS Atrial Rate BPM RADIOLOG Y RESULTS MS Interval ms RADIOLOG Y RESULTS QRS Duration 92 ms RADIOLO GY RESULTS QT 440 ms RADIOLOGY RESULTS QTc 475 ms RADIOLOGY RESULTS P [place] degrees RADIOLOGY RESULTS R AXIS 48 degrees RADIOLOGY RESULTS T [place] 0 degrees RADIOLOGY RESULTS Interpretation ECG Atrial fibrillation Nonspecific ST abnormality Abnormal ECG When compared with ECG of 13-NOV-2023 14:42, Vent. rate has decreased BY ??67 BPM T wave inversion no longer evident in Lateral leads RADIOLOGY RESULTS 11/18/2023 12:2 7 AM CDT 11/18/2023 1:18 AM CDT Champ Madrid MD ECG ORDERABLES RADIOLOGY RESULTS documented in this encounter Visit Diagnoses Diagnosis Volume depletion Volume depletion, unspecified Transient hypotension Nonspecific low blood pressure reading Persistent atrial fibrillation (H) Atrial fibrillation Alcoholic intoxication without complication (H24) Atrial fibrillation with RVR (H) Atrial fibrillation documented in this encounter Administered Medications Inactive Administered Medications - up to 3 most recent administrations Medication Order MAR Action Action Date Dose Rate Site dextrose 5% and 0.45% NaCl infusion at 125 mL/hr, Intravenous, ONCE, 1 dose, On Thu11/18/23 at 0245 $New Bag 11/18/2023 3:03 AM CDT 125 mL/hr lactated ringers BOLUS 1,000 mL Intravenous, 1,000 mL, ONCE, at 1,000 mL/hr, Administer over 1 Hours, On Thu11/18/23 at 0040, For 1 dose $New Bag 11/18/2023 12:40 AM CDT 1,000 mLs 1000 mL/hr documented in this encounter Active and Recently Administered Medications Times are shown in CDT. Scheduled Medication Order 11/16/2023 11/17/2023 11/18/2023 dextrose 5% and 0.45% NaCl infusion (COMPLETED) at 125 mL/hr, Intravenous, ONCE, 1 dose, On Thu11/18/23 at 0245 0303 ($New Bag - Pro vider: Padmini Enrique RN)[id number] (Stopped - Provider: Karla Fu RN) lactated ringers BOLUS 1,000 mL (COMPLETED) Intravenous, 1,000 mL, ONCE, at 1,000 mL/hr, Administer over 1 Hours, On Thu11/18/23 at 0040, For 1 dose 0040 ($New Bag - Pro vider: Padmini Enrique RN)[id number] (Stopped - Provider: Padmini Enrique RN) documented in this encounter Care Teams Drafter Plumbing Relationship Specialty Start Date End Date Adams Barrera [address] [place] [id number] PCP - General 03/30/20 Celia Kumar MD [address] [facility] [address] [place] [address] Plastic Surgery 04/20/15 Charan Corbin MD [address] [facility] [address] [place] [address] INTERNAL MEDICINE - ENDOCRINOLOGY, DIABETES & METABOLISM 06/19/15 [place] [id number] [place] [address] Assigned PCP 03/21/21 Greta Thao APRN [facility] [address] [place] [address] Nurse Practitioner Cardiology 06/09/23 Greta Thao APRN [facility] [address] [place] [address] Assigned Heart and Vascular Provider 06/25/23 documented as of this encounter
--- OUTSIDE RECORDS SUMMARY | 2023-11-30 08:39 | XMS_ITS | Referral Summary ---
Author Organization [place] Address [address] [place] [address] Care Team Providers Care Director [facility] Name Role Phone JoséCelia MD Unavailable [phone] Charan Corbin MD Unavailable [phone] Adams Barrera Primary Care Provider [phone] Deborah Walsh MD Unavailable Greta Thao APRN WEIGHT CONTROL LECTURER Unavailable [phone] Greta Thao APRN WEIGHT CONTROL LECTURER Unavailable [phone] Encounters Date Type Department Care Team Description 11/18/2023 Travel 11/18/2023 12:22 AM CDT - 11/18/2023 4:39 AM CDT Emergency [facility] Emergency Dept [address] [place] [address] [phone] Shi Tabor MD Volume depletion; Transient hypotension; Persistent atrial fibrillation (H); Alcoholic intoxication without complication (H24); Atrial fibrillation with RVR (H) Discharge Disposition: Home or Self Care 11/13/2023 2:36 PM CDT - 11/16/2023 1:34 PM CDT Hospital Encounter [facility] [place] [address] Mauro Soliman MD Zekri, MD Drew Lopez Casey S, MD Atrial fibrillation with RVR (H); Exertional dyspnea; Subtherapeutic international normalized ratio (INR); Warfarin anticoagulation Discharge Disposition: Intermediate Care Facility with Planned Hospital IP Readmission 11/13/2023 Travel 11/13/2023 1:30 PM CDT Office Visit [facility] [address] [facility] [address] [place] [phone] Greta Thao APRN CNP Nonischemic cardiomyopathy (H) (Primary Dx); Longstanding persistent atrial fibrillation (H) 10/15/2023 Telephone [facility] [place] [address] [facility] [address] [place] [address] Haley Khanna MD Injection Inquiry 10/15/2023 Travel 10/14/2023 Travel 10/14/2023 1:30 PM CDT - 10/14/2023 11:59 PM CDT Hospital Encounter [facility] [address] [place] [address] Greta Thao APRN CNP Longstanding persistent atrial [...] by mouth daily 04/25/20 19 Active nystatin 421327 UNIT/GM EX external powder Apply topically 2 [...] azelastine 0.1 % NA nasal sprayIndications: allergies [place] 1 spray into both nostrils 2 times daily 02/18/20 16 Active fluticasone (FLONASE) 50 MCG/ACT nasal spray [place] 1 spray into both nostrils 2 times [...] x1 in 2 hours if needed. 06/10/19 22 Active zolpidem (AMBIEN) 5 MG tablet Take 5 mg by mouth At Bedtime 06/17/19 22 Active polyethylene glycol (MIRALAX) 17 g packet [...] Active naloxone (NARCAN) 4 MG/0.1ML nasal spray [place] 4 mg into one nostril alternating nostrils [...] mouth daily as needed for constipation 05/18/20 024 Discontinued(Me d Rec(No AVS / No eCancel)) cyanocobalamin 1000 MCG/ML IJ injection Inject 1 mL into the muscle every 30 days 07/15/19 024 Discontinued(Me d Rec(No AVS / No eCancel)) diclofenac (VOLTAREN) 1 % topical gel Apply 2 g topically 4 times daily Apply to affected area. 6AM, 12PM, 6PM, 12AM 02/02/20 024 Discontinued(Me d Rec(No AVS / No eCancel)) Vaginal Lubricant (REPLENS) GEL Place vaginally every 72 hours as needed (dryness) 09/23/19 20 Discontinued(Me d Rec(No AVS / No eCancel)) Sharps Container (TPQHUR-F-HQABW LOCKING BRACKET) [facility] Length: calf Strength: 16-20 mmHg Circumference in cm: For calf: Ankle 12, Calf 18.5 , Ankle to calf length 12 . 03/15/20 18 024 Discontinued HYDROmorphone (DILAUDID) 2 MG tabletIndications :Open wound Take 1 tablet (2 mg) by mouth every 6 hours as needed for severe pain 12 tablet 06/26/19 21 024 Discontinued metFORMIN (GLUCOPHAGE) 500 MG tablet Take [...] Take 40 mg by mouth daily 12/15/19 024 Discontinued(Me d Rec(No AVS / No eCancel)) DIPHENHYDRAMINE HCL PO Take 25 mg by mouth every 4 hours as needed Discontinued(Me d Rec(No AVS / No eCancel)) MARY-LANTA 200-200-20 MG/5ML SUSP suspension Take 10 mLs by mouth 4 times daily as needed for indigestion 06/03/19 22 024 Discontinued(Me d Rec(No AVS / No eCancel)) prazosin (MINIPRESS) 2 MG capsule Take 2 mg by mouth At Bedtime 06/18/19 024 Discontinued pregabalin (LYRICA) 100 MG capsule Take 100 mg by mouth 3 times daily 06/17/19 024 Discontinued(Me d Rec(No AVS / No eCancel)) hydrocortisone (CORTAID) 1 % external cream Apply topically 4 times daily as needed for rash 06/03/19 024 Discontinued(Me d Rec(No AVS / No eCancel)) hydrOXYzine (VISTARIL) 50 MG capsuleIndication s:Status post total right knee replacement Take 1 capsule (50 mg) by mouth 3 times daily as needed for itching 30 capsule 07/13/19 024 Discontinued metroNIDAZOLE (METROCREAM) 0.75 % external cream 09/24/19 024 Discontinued metoprolol tartrate (LOPRESSOR) 50 MG tablet Take 50 mg by mouth 2 times daily 08/13/19 024 Discontinued(St op at Discharge) warfarin ANTICOAGULANT (COUMADIN) 3 MG tablet Take 1.5-3 mg by mouth See Admin Instructions Take 1.5 mg (1/2 tablet) on Thursday, Thursday, Thursday, and Thursday. Take 3 mg all other days of the week. 024 Discontinued(St op at Discharge) digoxin (LANOXIN) 125 MCG tablet Take 125 mcg by mouth every morning Discontinued(St op at Discharge) doxycycline hyclate (VIBRAMYCIN) 100 MG capsule Take 100 mg by mouth 2 times daily 024 Discontinued(St op at Discharge) amoxicillin (AMOXIL) 500 MG capsule Take 2,000 mg by mouth See Admin Instructions Take 2,000 mg 1 hour prior to dental appointment as needed. 024 Discontinued metoprolol tartrate (LOPRESSOR) 100 MG [...] Overview: Added automatically from request for surgery [id number] Nasal septal deviation 02/08/2020 Nasal trauma 02/08/2020 Nasal valve collapse 02/08/2020 Asthma 02/03/2019 Overview: Asthma. mild. only with URI. Asthma. mild. only with URI. Longstanding persistent atrial fibrillation 09/2018 Status post replacement of left shoulder joint 1 Diastasis of rectus abdominis 01/29/2018 Lacunar stroke 01/20/2018 Overview: Right parietal per [facility] Recurrent major depressive disorder (H24) 2017 Overview: [...] often do you attend chur ch or pentecostal services? More than 4 times per year 07/05/2021 Do you belong to any clubs o r organizations such as voodoo groups, unions, fraternal or athletic groups, or [...] Answer Date Recorded PHQ-2 Score 1 07/20/2019 [facility] - Occupational Stress Questionnaire Answer Date Recorded [...] Description 12/10/2023 9:30 AM CDT Office Visit [facility] [address] [place], [place] [address] Haley Khanna MD [id number] [place] [address] [place], [place] [id number] Medical Devices Implanted Type Area Quality Control Industrial Engineer Device Identifier Shelf Expiration Date Model / Serial / Lot Cement Surgical Tobramycin 6197-9-001 - [id number] Implanted:Qty : 2 on 07/09/2021 by Jamin Siegel MD at [facility] Cement, Bone Right: Knee [employer] 07/01/2022 6197-9-001 / / [id number] Imp Insert Jj Attune Medial Jaquelin Pat 38mm [id number] - [id number] Implanted:Qty : 1 on 07/09/2021 by Jamin Siegel MD at [facility] Total Joint Componen t/Insert Right: Knee [employer] [id number] 09/28/2025 [id number] / / [id number] Imp Comp Fem Jj Attune Post Stab Rt Ash Sz5 [id number] - [id number] Implanted:Qty : 1 on 07/09/2021 by Jamin Siegel MD at [facility] Total Joint Componen t/Insert Right: Knee [employer] [id number] 01/29/2026 [id number] / / [id number] Stem 50mm X 14mm - [id number] Implanted:Qty : 1 on 07/09/2021 by Jamin Siegel MD at [facility] Total Joint Componen t/Insert Right: Knee [employer] [id number] 02/28/2031 [id number] / / [id number] Tibial Base Sz 5 - [id number] Implanted:Qty : 1 on 07/09/2021 by Jamin Siegel MD at [facility] Total Joint Componen t/Insert Right: Knee [employer] [id number] 04/30/2030 [id number] / / [id number] Imp Insert Jj Attune Post Stab Fx Br Sys Sz5 12mm [id number] - [id number] Implanted:Qty : 1 on 07/09/2021 by Jamin Siegel MD at [facility] Total Joint Componen t/Insert Right: Knee [employer] [id number] 07/29/2024 [id number] / / [id number] Procedures Procedure Name Priority Date/Time Associated Diagnosis [...] PM CDT ECG 12-LEAD WITH MUSE ? SJN,SJO,WWH STAT 11/13/2023 2:42 PM CDT ECG 12-LEAD WITH MUSE ? SJN,SJO,WWH Routine 11/13/2023 2:11 PM CDT Longstanding persistent atrial fibrillation (H) HOLTER MONITOR 24 HOUR APPLICATION SCAN ANALYSIS AND PROVIDER INTERPRETATION Routine 10/14/2023 2:18 PM CDT Longstanding persistent atrial fibrillation (H) HEMOGLOBIN A1C Add-On 07/05/2021 10:09 AM MAXILLOFACIAL PROSTHETICS DENTIST Type 2 diabetes mellitus without complication, without long-term current use of insulin (H) MA SCREENING BILATERAL W/ RILEY Routine 07/29/2019 11:25 AM MAXILLOFACIAL PROSTHETICS DENTIST LIPID PROFILE Routine 03/09/2015 3:11 PM CDT Bariatric surgery status from Last 3 Months or Most Recently Relevant to Health Maintenance Results * UA with Microscopic reflex to Culture (11/18/2023 3:55 AM CDT) Color Urine Straw Colorless, Straw, Light Yellow, Yellow 11/18/2023 4:04 AM CDT [facility] Appearance Urine Clear Clear 11/18/19 24 4:04 AM CDT [facility] Glucose Urine Negative Negative mg/dL 11/18/2023 4:04 AM CDT [facility] Bilirubin Urine Negative Negative 4:04 AM CDT [facility] Ketones Urine Negative Negative mg/dL 11/18/2023 4:04 AM CDT [facility] Specific [place] Urine 1.004 1.003 - 1.035 11/18/2023 4:04 AM CDT [facility] Blood Urine Negative Negative 11/18/2023 4:04 AM CDT [facility] pH Urine 6.0 5.0 - 7.0 11/18/2023 4:04 AM CDT [facility] Protein Albumin Urine Negative Negative mg/dL 11/18/2023 4:04 AM CDT [facility] Urobilinogen Urine Normal Normal, 2.0 mg/dL [...] MD LAB - URINE ORDERAB LES LABORATORY [facility] [address] [facility] Lab (1st floor, no room number) [place] [address], [facility] * Urine Drug Screen Panel (11/18/2023 3:55 AM CDT) [facility] Amphetamines Urine Screen Negative Screen Negative 11/18/2023 4:20 AM CDT LABORATORY Comment:Cutoff for a negativ e amphetamine is less than 500 ng/mL. Barbituates Urine Screen Negative Screen Negative 11/18/2023 4:20 AM CDT LABORATORY Comment:Cutoff for a negativ e barbiturate is less than 200 ng/mL. Benzodiazepine Urine Screen Negative Screen Negative 11/18/2023 4:20 AM CDT LABORATORY Comment:Cutoff for a negativ e benzodiazepine [...] MD LAB - URINE ORDERAB LES LABORATORY [facility] [address] [facility] Lab (1st floor, no room number) [place] [address] * Troponin T, High Sensitivity (11/18/2023 2:23 AM CDT) Only the most recent of3 resultswithin the time period is included. Troponin T, High Sensitivity 13 <=14 ng/L 11/18/2023 3:04 AM CDT [facility] Comment: Either a High Sensitivity Troponin [...] Tabor MD LAB - BLOOD ORDERAB LES Performing Organization Address City/[facility]/ZIP Co de Phone Number [facility] [address] Lab (1st floor, no room number) [place] [phone] * (ABNORMAL) Lactic acid whole blood (11/18/2023 2:23 AM CDT) Only the most recent of3 resultswithin the time period is included. Lactic Acid 2.5(H) 0.7 - 2.0 mmol/L 11/18/2023 2:41 AM CDT LABORATORY Blood BLOOD SPECIMEN / Unknown Venipuncture / Unknown 11/18/2023 2:23 AM CDT 11/18/2023 2:39 AM CDT Shi Tabor MD LAB - BLOOD ORDERAB LES Performing Organization Address [facility] Co de Phone Number [facility] [address] Lab (1st floor, no room number) [place] [phone] * (ABNORMAL) CBC with platelets and [...] [facility] [address] Lab (1st floor, no room number) [address] * (ABNORMAL) INR (11/18/2023 12:34 AM CDT) Only the most recent of5 resultswithin the time period is included. INR 1.48(H) 0.85 - 1.15 11/18/2023 12:57 AM CDT LABORATORY Blood BLOOD SPECIMEN / Unknown Venipuncture / Unknown 11/18/2023 12:34 AM CDT 11/18/2023 12:42 AM CDT Champ [place] MD LAB - BLOOD ORDERABL ES Performing Organization Address [facility]/ZIP Co de Phone Number LABORATORY [facility] [address] Lab (1st floor, no room number) [address] * (ABNORMAL) Comprehensive metabolic panel (11/18/2023 [...] - 5.3 mmol/L 11/18/2023 1:09 AM CDT LABORATORY Carbon Dioxide (CO2) 17(L) 22 - [...] 1:09 AM CDT [facility] Comment:eGFR calculated us2020 CKD-EPI equation. Calcium 8.8 8.8 - 10.2 [...] - BLOOD ORDERABL ES Performing Organization Address City/[facility]/ZIP Co de Phone Number LABORATORY [facility] [address] Lab (1st floor, no room number) [place] [phone] [place] [address] * (ABNORMAL) Alcohol level blood (11/18/2023 12:34 AM CDT) Alcohol ethyl 0.20(H) <=0.01 g/dL 11/18/2023 1:06 AM CDT LABORATORY Blood BLOOD SPECIMEN / Unknown Venipuncture / Unknown 11/18/2023 12:34 AM CDT 11/18/2023 12:42 AM CDT Shi Tabor MD LAB - BLOOD ORDERAB LES Performing Organization Address [facility]/ZIP Co de Phone Number LABORATORY [facility] [address] Lab (1st floor, no room number) [place] [phone] * (ABNORMAL) Glucose by meter (11/18/2023 12:31 AM CDT) GLUCOSE BY METER POCT 197(H) 70 - 99 mg/dL 11/18/2023 12:38 AM CDT LABORATORY POC Blood, venous BLOOD SPECIMEN / Unknown 11/18/2023 12:31 AM CDT 11/18/2023 12:38 AM CDT Shi Tabor MD LAB - BEAKER POCT LABORATORY [facility] Lab [address] Lab (1st floor, no room number) [place] [address] * EKG 12 lead (11/18/2023 12:27 AM CDT) Systolic Blood Pressure mmHg RADIOLOGY RESULTS Diastolic Blood Pressure mmHg RADIOLOGY RESULTS Ventricular Rate 70 BPM RAD IOLOGY RESULTS Atrial Rate BPM RADIOLOG Y RESULTS MI Interval ms RADIOLOG Y RESULTS QRS Duration 92 ms RADIOLO GY RESULTS QT 440 ms RADIOLOGY RESULTS QTc 475 ms RADIOLOGY RESULTS P [place] degrees RADIOLOGY RESULTS R AXIS 48 degrees RADIOLOGY RESULTS T [place] 0 degrees RADIOLOGY RESULTS Interpretation ECG Atrial fibrillation Nonspecific ST abnormality Abnormal ECG When compared with ECG of 13-NOV-2023 14:42, Vent. rate has decreased BY ??67 BPM T wave inversion no longer evident in Lateral leads RADIOLOGY RESULTS 11/18/2023 12:2 7 AM CDT 11/18/2023 1:18 AM CDT Champ [place] MD ECG ORDERABLES RADIOLOGY RESULTS * (ABNORMAL) CBC with platelets (11/16/2023 4:57 AM CDT) Only the most recent of3 resultswithin the time period is included. WBC Count 9.2 4.0 - 11.0 10e3/uL 11/16/2023 5:12 AM [facility] RBC Count 5.02 3.80 - 5.20 10e6/uL 11/16/2023 5:12 AM [facility] Hemoglobin 11.2(L) 11.7 - 15.7 g/dL 11/16/2023 5:12 AM [facility] Hematocrit 36.8 35.0 - 47.0 % 11/16/2023 5:12 AM [facility] MCV 73(L) 78 - 100 fL 11/16/2023 5:12 AM [facility] MCH 22.3(L) 26.5 - 33.0 pg 11/16/2023 5:12 AM [facility] MCHC 30.4(L) 31.5 - 36.5 g/dL 11/16/2023 5:12 AM [facility] RDW 20.4(H) 10.0 - 15.0 % 11/16/2023 5:12 AM [facility] Platelet Count 228 150 - 450 10e3/uL 11/16/2023 5:12 AM [facility] Blood BLOOD SPECIMEN / Unknown Venipuncture / Unknown 11/16/2023 4:57 AM CDT 11/16/2023 5:07 AM CDT Pablito Morejon MD LAB - BLOOD ORDERABL ES [facility] [address] [facility] [place], [place] [address] * Ferritin (11/15/2023 7:43 AM CDT) Ferritin 26 11 - 328 ng/mL 11/15/2023 12:43 PM CDT [facility] Blood BLOOD SPECIMEN / Unknown Venipuncture / Unknown 11/15/2023 7:43 AM CDT 11/15/2023 7:58 AM CDT Rhonda Haas MD LAB - BLOOD ORDERABL ES LABORATORY [facility] [address] [facility], Room [address] [address] * (ABNORMAL) Basic metabolic panel (11/15/2023 7:43 AM CDT) Only the most recent of3 resultswithin the time period is included. Sodium 136 135 - 145 mmol/L 11/15/2023 8:17 AM T [facility] Comment:Reference intervals for this test were updated on 02/24/2023 to more accurately reflect our healthy population. There may be differences in the flagging of prior results with similar values performed with this method. Interpretation of those prior results can be made in the context of the updated reference intervals. Potassium 4.2 3.4 - 5.3 mmol/L 11/15/2023 8:17 AM T [facility] Chloride 102 98 - 107 mmol/L 11/15/2023 8:17 AM T [facility] Carbon Dioxide (CO2) 20(L) 22 - 29 mmol/L 11/15/2023 8:17 AM T [facility] Anion Gap 14 7 - 15 mmol/L 11/15/2023 8:17 AM CDT [facility] Urea Nitrogen 19.2 8.0 - 23.0 mg/dL 11/15/2023 8:17 AM T [facility] Creatinine 0.50(L) 0.51 - 0.95 mg/dL 11/15/2023 8:17 AM CDT [facility] GFR Estimate >90 >60 mL/min/1. 73m2 11/15/2023 8:17 AM CDT [facility] Comment:eGFR calculated usin 2020 CKD-EPI equation. Calcium 9.1 8.8 - 10.2 mg/dL 11/15/2023 8:17 AM CDT [facility] Glucose 163(H) 70 - 99 mg/dL 11/15/2023 8:17 AM CDT [facility] Blood BLOOD SPECIMEN / Unknown Venipuncture / Unknown 11/15/2023 7:43 AM CDT 11/15/2023 7:58 AM CDT Rhonda Haas MD LAB - BLOOD ORDERABL ES [facility] [address] [facility] [place] [address], [facility] * ECHO COMPLETE WITH CONTRAST (11/14/2023 12:47 PM CDT) LVEF 50-55% (borderlin e) CARDIOLOGY RESULTS Anatomical Region Laterality Modality Ultrasound 11/14/2023 12:1 5 PM CDT Narrative 11/14/2023 3:06 PM CDT [id number]^KAI^[place] [address] Name: BRANDEE CORDOVA : 1960 Study Date: 11/14/2023 12:15 PM Age: 63 yrs Gender: Female Patient Location: [facility] Reason For Study: Atrial Fibrillation Ordering Physician: LISANDRA QUINN Performed By: DAYO BSA: 1.9 m2 Height: 62 in Weight: 201 lb HR: 97 BP: 102/67 mmHg Procedure Complete Portable Echo Adult. Definity ([facility] #[id number]) given intravenously. No hemodynamically significant valvular abnormalities [...] Procedure Note Lisandra Quinn MD - 11/14/2023 [id number]^KAI^[place] [address] Name: BRANDEE CORDOVA : 1960 Study Date: 11/14/2023 12:15 PM Age: 63 yrs Gender: Female Patient Location: [facility] Reason For Study: Atrial Fibrillation Ordering Physician: LISANDRA QUINN Performed By: DAYO BSA: 1.9 m2 Height: 62 in Weight: 201 lb HR: 97 BP: 102/67 mmHg Procedure Complete Portable Echo Adult. Definity ([facility] #[id number]) givenintravenously. No hemodynamically significant valvular abnormalities on [...] B1 whole blood (11/13/2023 9:13 PM CDT) Vitamin B1 Whole Blood Level 164 70 - 180 nmol/L 11/19/2023 12:24 PM CDT [facility] Comment: INTERPRETIVE INFORMATION: Vitamin B1, Whole Blood This assay measures the concentration of thiamine diphosphate (TDP), the primary active form of vitamin B1. Approximately 90 percent of vitamin B1 present in whole blood is TDP. Thiamine and thiamine monophosphate, which comprise the remaining 10 percent, are not measured. This test was developed and its performance characteristics determined by [employer]. It has not been cleared or approved by the US Food and Drug Administration. This test was performed in a CLIA certified laboratory and is intended for clinical purposes. Performed By: [employer] [address] [place] [id number] Hitch Technician: Chay Mendez MD, PhD CLIA Number: [id number] Blood STRUCTURE OF LEFT UPPER LIMB / Unknown Venipuncture / Unknown 11/13/2023 9:13 PM CDT 11/13/2023 9:16 PM CDT Sosa Pablo DO LAB - BLOOD ORDERABL ES [facility] [address] [place] [address], [facility] [phone] * CT Chest Pulmonary Embolism w Contrast [...] CT CHEST PULMONARY EMBOLISM W CONTRAST LOCATION: [facility] DATE: 11/13/2023 INDICATION: chest pain, a fib [...] CT CHEST PULMONARY EMBOLISM W CONTRAST LOCATION: [facility] DATE: 11/13/2023 INDICATION: chest pain, a fib [...] Moderate coronary artery calcification. Mauro Soliman MD IMG CT ORDERABLES * Extra Purple Top Tube (11/13/2023 2:48 PM CDT) Hold Specimen [facility] 11/13/2023 4:04 PM CDT [facility] Blood STRUCTURE OF RIGHT UPPER LIMB / Unknown Venipuncture / Unknown 11/13/2023 2:48 PM CDT 11/13/2023 2:52 PM CDT Mauro Soliman MD LAB - BLOOD ORDERABL ES Performing Organization Address City/[facility]/ZIP Co de Phone Number [address] * Extra Green Top ([place] Heparin) Tube (11/13/2023 2:48 PM CDT) Hold Specimen [facility] 11/13/2023 4:04 PM CDT [facility] Blood STRUCTURE OF RIGHT UPPER LIMB / Unknown Venipuncture / Unknown 11/13/2023 2:48 PM CDT 11/13/2023 2:52 PM CDT Mauro Soliman MD LAB - BLOOD ORDERABL ES [address] [place] [address], [facility] * Extra Blue Top Tube (11/13/2023 2:48 PM CDT) Hold Specimen [facility] 11/13/2023 4:04 PM CDT [facility] Blood STRUCTURE OF RIGHT UPPER LIMB / Unknown Venipuncture / Unknown 11/13/2023 2:48 PM CDT 11/13/2023 2:52 PM CDT Mauro Soliman MD LAB - BLOOD ORDERABL ES [facility] [address] [place] [address], [facility] * Procalcitonin (11/13/2023 2:48 PM CDT) Procalcitonin 0.09 <0.50 ng/mL 11/13/2023 3:45 PM CDT [facility] Comment: Interpretation and Recommendations <0.5 ng/mL: Systemic bacterial infection unlikely. Local bacterial infection is possible. 0.5-1.99 ng/mL: Systemic bacterial infection possible, but various other conditions are known to induce PCT as well. >=2.00 ng/mL: Systemic bacterial infection likely, unless other causes are known. Decision to start antibiotics should not be based on procalcitonin level alone. See Procalcitonin Guidance document for more details. [email or web address] Factors that may affect PCT levels (not [...] - BLOOD ORDERABL ES Performing Organization Address [facility] Co de Phone Number [facility] [address] [place] [address] Dr. [place] [address], [facility] * TSH with free T4 reflex (11/13/2023 2:48 PM CDT) TSH 1.68 0.30 - 4.20 uIU/mL 11/13/2023 3:45 PM CDT [facility] Blood STRUCTURE OF RIGHT UPPER LIMB / Unknown Venipuncture / Unknown 11/13/2023 2:48 PM CDT 11/13/2023 2:52 PM CDT Mauro Soliman MD LAB - BLOOD ORDERABL ES Performing Organization Address [facility] de Phone Number [facility] [address] [place] [address] Dr. [place] [address], [facility] * (ABNORMAL) Nt probnp inpatient (BNP) (11/13/2023 2:48 PM CDT) N terminal Pro BNP Inpatient 1,082(H) 0 - 900 pg/mL 11/13/2023 3:45 PM CDT [facility] Comment: Reference range shown and results [...] - BLOOD ORDERABL ES Performing Organization Address [facility] Co de Phone Number [facility] [address] [place] [address] Dr. [place] [address], [facility] * Magnesium (11/13/2023 2:48 PM CDT) Magnesium 2.0 1.7 - 2.3 mg/dL 11/13/2023 3:45 PM CDT [facility] LABORATORY Blood STRUCTURE OF RIGHT UPPER LIMB / Unknown Venipuncture / Unknown 11/13/2023 2:48 PM CDT 11/13/2023 2:52 PM CDT Mauro Soliman MD LAB - BLOOD ORDERABL ES Performing Organization Address [facility]/ZIP Co de Phone Number [facility] [address] [place] [address] Dr. [place] [address], [facility] * (ABNORMAL) Lipase (11/13/2023 2:48 PM CDT) Lipase 63(H) 13 - 60 U/L 11/13/2023 3:45 PM CDT [facility] Blood STRUCTURE OF RIGHT UPPER LIMB / Unknown Venipuncture / Unknown 11/13/2023 2:48 PM CDT 11/13/2023 2:52 PM CDT Mauro Soliman MD LAB - BLOOD ORDERABL ES Performing Organization Address [facility]/ZIP Co de Phone Number [facility] [address] [facility] [address] [place] [address], [facility] * (ABNORMAL) Iron and iron binding capacity (11/13/2023 2:48 PM CDT) Iron 29(L) 37 - 145 ug/dL 11/13/2023 9:09 PM CDT [facility] Iron Binding Capacity 440(H) 240 - 430 ug/dL 11/13/2023 9:09 PM CDT [facility] Iron Sat Index 7(L) 15 - 46 % 11/13/2023 9:09 PM CDT [facility] Blood STRUCTURE OF RIGHT UPPER LIMB / Unknown Venipuncture / Unknown 11/13/2023 2:48 PM CDT 11/13/2023 2:52 PM CDT Sosa Pablo LAB - BLOOD ORDERABL ES [facility] [address] [facility] [place] [address], [facility] * (ABNORMAL) Hepatic function panel (11/13/2023 2:48 PM CDT) Pathologist [facility] Protein Total 7.0 6.4 - 8.3 g/dL 11/13/2023 3:45 PM CDT [facility] Albumin 4.1 3.5 - 5.2 g/dL 11/13/2023 3:45 PM CDT [facility] Bilirubin Total 0.2 <=1.2 mg/dL 11/13/2023 3:45 PM CDT [facility] Alkaline Phosphatase 138 40 - 150 U/L 11/13/2023 3:45 PM CDT [facility] AST 48(H) 0 - 45 U/L 11/13/2023 3:45 PM CDT [facility] Comment:Reference intervals for this test were updated on 11/10/2022 to more accurately reflect our healthy population. There may be differences in the flagging of prior results with similar values performed with this method. Interpretation of those prior results can be made in the context of the updated reference intervals. ALT 53(H) 0 - 50 U/L 11/13/2023 3:45 PM CDT [facility] Comment:Reference intervals for this test were updated on 11/10/2022 to more accurately reflect our healthy population. There may be differences in the flagging of prior results with similar values performed with this method. Interpretation of those prior results can be made in the context of the updated reference intervals. Bilirubin Direct <0.20 0.00 - 0.30 mg/dL 11/13/2023 3:45 PM CDT [facility] Blood STRUCTURE OF RIGHT UPPER LIMB / Unknown Venipuncture / Unknown 11/13/2023 2:48 PM CDT 11/13/2023 2:52 PM CDT Mauro Soliman MD LAB - BLOOD ORDERABL ES Performing Organization Address [facility]/ZIP Co de Phone Number [facility] [address] [place] [address] * CRP inflammation (11/13/2023 2:48 PM CDT) CRP Inflammation <3.00 <5.00 mg/L 11/13/19 3:45 PM CDT [facility] Blood STRUCTURE OF RIGHT UPPER LIMB / Unknown Venipuncture / Unknown 11/13/2023 2:48 PM CDT 11/13/2023 2:52 PM CDT Mauro Soliman MD LAB - BLOOD ORDERABL ES Performing Organization Address [facility] Co de Phone Number [facility] [address] * ECG 12-LEAD WITH MUSE (LHE) (11/13/2023 2:42 PM CDT) Only the most recent of2 resultswithin the time period is included. Systolic Blood Pressure mmHg RADIOLOGY RESULTS Diastolic Blood Pressure mmHg RADIOLOGY RESULTS Ventricular Rate 137 BPM RAD IOLOGY RESULTS Atrial Rate 120 BPM RADIOLOG Y RESULTS MI Interval ms RADIOLOG Y RESULTS QRS Duration 78 ms RADIOLO GY RESULTS QT 334 ms RADIOLOGY RESULTS QTc 504 ms RADIOLOGY RESULTS P [place] degrees RADIOLOGY RESULTS R AXIS 7 degrees RADIOLOGY RESULTS T [place] 167 degrees RADIOLOGY RESULTS Interpretation ECG Atrial fibrillation with rapid ventricular response ST & T wave abnormality, consider lateral ischemia Abnormal ECG When compared with ECG of 13-NOV-2023 14:11, T wave inversion now evident in Anterolateral leads Confirmed by SEE ED PROVIDER NOTE FOR, ECG INTERPRETATION ([id number]), index editor CLAYTON MAURO ([id number]) on 11/13/2023 6:14:52 PM RADIOLOGY RESULTS 11/13/2023 2:42 PM CDT 11/13/2023 6:14 PM CDT Mauro Soliman MD ECG ORDERABLES Performing Organization Address City/[facility]/ZIP Co de Phone Number RADIOLOGY RESULTS * HOLTER MONITOR 24 HOUR [...] PM Confirmed by JOSE ??ROBERTO BOLES LOC:BRIJESH [id number]), index editor Vladimir Gilbert () on 11/18/2023 7:24:18 AM Procedure Note Deidre Garcia MD - 11/18/2023 Holter monitoring from 10/14/2023 to 10/15/2023. Continuous atrial fibrillation, ventricular rates 81 to 153bpm, [id number]. There were no pauses of greater than 3 seconds. Rare premature ventricular contractions (<1%). No diary available for review. Electronically signed by Deidre Garcia MD 11/16/2023 2:52 PM Confirmed by ROBERTO GARCIA MD LOC:BRIJESH [id number]), index editor Vladimir Gilbert () on 11/18/2023 7:24:18 AM Greta Thao APRN WEIGHT CONTROL LECTURER CV CARDIAC SER VICES ORDERABLES * (ABNORMAL) Hemoglobin A1c (07/05/2021 10:09 AM MAXILLOFACIAL PROSTHETICS DENTIST) Hemoglobin A1C 6.8(H) 0.0 - 5.6 % 07/05/2021 11:24 AM MAXILLOFACIAL PROSTHETICS DENTIST [facility] Comment: Normal <5.7% Prediabetes 5.7-6.4% ?? Diabetes 6.5% or higher Note: Adopted from ADA consensus guidelines. Blood VENOUS BLOOD / Unknown Venipuncture / Unknown 07/05/2021 10:09 AM MAXILLOFACIAL PROSTHETICS DENTIST 07/05/2021 10:09 AM MAXILLOFACIAL PROSTHETICS DENTIST Deborah Walsh MD LAB - BLOOD ORDERABL ES [facility] [address] [facility] Lab (no room number, 1st floor of clinic) [place] [address], [facility] [phone] * Lipid Profile [LAB18] (03/09/2015 3:11 PM CDT) Cholesterol 112 <200 mg/dL [facility] Comment: LDL Cholesterol is the primary guide to therapy. The NCEP recommends further evaluation of: patients with cholesterol greater than 200 mg/dL if additional risk factors are present, cholesterol greater than 240 mg/dL, triglycerides greater than 150 mg/dL, or HDL less than 40 mg/dL. Triglycerides 60 0 - 150 mg/dL [facility] HDL Cholesterol 69 >50 mg/dL [facility] LDL Cholesterol Calculated 32 0 - 129 mg/dL [facility] Comment: LDL Cholesterol is the primary guide to therapy: LDL-cholesterol goal in high risk patients is <100 mg/dL and in very high risk patients is <70 mg/dL. VLDL-Cholesterol 12 0 - 30 mg/dL [facility] Cholesterol/HDL Ratio 1.6 0.0 - 5.[address] [facility] Blood specimen (specimen) 03/09/2015 3:11 PM CDT 03/09/2015 3:12 PM CDT Brittney Daniel APRN, CNP LAB - BLOOD O RDERABLES [facility] [address] [place] [address] from Last 3 Months or Most Recently Relevant to Health Maintenance Advance Directives For more information, please contact: [phone] * Full Code (Latest Code Status on [...] patie nt/ legal decision maker Care Teams Director [employer] Relationship Specialty Start Date End Date Adams Barrera [address] [address] PCP - General 03/30/20 Celia Kumar MD [address] [facility] [address] [place], [place] [address] Plastic Surgery 04/20/15 Charan Corbin MD [address] [facility] [address] [place], [place] [address] INTERNAL MEDICINE - ENDOCRINOLOGY, DIABETES & METABOLISM 06/19/15 [place] [address] [place], [place] [address] Assigned PCP 03/21/21 Greta Thao APRN WEIGHT CONTROL LECTURER [facility] [address] [place] [address] Nurse Practitioner Cardiology 06/09/23 Greta Thao APRN WEIGHT CONTROL LECTURER [facility] [address] [place] [address] Assigned Heart and Vascular Provider 06/25/23"
--- OUTSIDE RECORDS SUMMARY | 2023-11-30 08:40 | XMS_ITS | Encounter Summary ---
Author Organization [facility] Address [address] [place] [address] Care Team Providers Care Fish Pitcher Name Role Phone JoséCelia MD Unavailable [phone] Charan Corbin MD Unavailable [phone] Adams Barrera Primary Care Provider [phone] Deborah Walsh MD Unavailable Greta Thao APRN, CNP Unavailable + [phone] Greta Thao APRN, CNP Unavailable + [phone] Reason for Referral * CV Testing (Routine) - Closed Specialty Diagnoses / Procedures Referred By Contac t Referred To Contact Cardiology Diagnoses Longstanding persistent atrial fibrillation (H) Procedures Adult Holter Monitor 24 hour [facility] AMB BP MONITORING W/SW >=24 HR, RECORD/SCAN/INTRP/RPT [facility] HOLTER RECORDING 24 HRS [facility] HOLTER SCAN 24 HRS ND HOLTER RECORDING 24 HRS ND HOLTER SCAN 24 HRS ND AMB BP MONITORING W/SW >=24 HR, RECORD/SCAN/INTRP/RPT HC HOLTER RECORDING 24 HRS HC HOLTER SCAN 24 HRS, ANALYSIS WITH REPORT Greta Thao APRN SLEEVE SETTER SAFETY STITCH [facility] [place] [address] [place] [address] [facility] Cardiac Testing [address] [place] [address] Referral ID Status Reason Start Date Expiration Date Visits Re quested Visits Authorized [id number] Closed 06/19/2023 06/18/2024 1 1 Reason for Visit * CV Testing (Routine) - Closed Specialty Diagnoses / Procedures Referred By Katina t Referred To Contact Cardiology Diagnoses Longstanding persistent atrial fibrillation (H) Procedures Adult Holter Monitor 24 hour [facility] AMB BP MONITORING W/SW >=24 HR, RECORD/SCAN/INTRP/RPT [facility] HOLTER RECORDING 24 HRS [facility] HOLTER SCAN 24 HRS ND HOLTER RECORDING 24 HRS ND HOLTER SCAN 24 HRS ND AMB BP MONITORING W/SW >=24 HR, RECORD/SCAN/INTRP/RPT HC HOLTER RECORDING 24 HRS HC HOLTER SCAN 24 HRS, ANALYSIS WITH REPORT Greta Thao APRN CNP [facility] [place] [address] [place] [address] [facility] Cardiac Testing [address] [place] [address] Referral ID Status Reason Start Date Expiration Date Visits Re quested Visits Authorized [id number] Closed 06/19/2023 06/18/2024 1 1 Encounter Details Date Type Department Care Team (Latest Contact Info) Description 10/14/2023 1:30 PM CDT - 10/14/2023 11:59 PM CDT Hospital Encounter [facility] [address] [place] [address] Greta Thao APRN CNP [facility] [place] [address] [place] [address] Longstanding persistent atrial fibrillation (H) [...] often do you attend chur ch or jainism services? More than 4 times per year [...] Answer Date Recorded PHQ-2 Score 1 07/20/2019 [facility] - [...] place to sleep or slept in a chcf (including now)? No 07/05/2021 Adolescent Education Answer [...] lungs every 6 hours as needed 01/02/2019 atorvastatin 40 MG PO tablet Take 40 mg by mouth At Bedtime 01/29/2019 azelastine 0.1 % NA nasal sprayIndications:stephen rgies [place] 1 spray into both nostrils 2 times daily 02/18/2016 fluticasone (FLONASE) 50 MCG/ACT nasal spray [place] 1 spray into both nostrils 2 times daily 02/08/2020 fluticasone-salmetero l (ADVAIR) 250-50 MCG/DOSE inhalerIndications:As thma Inhale 1 puff into the lungs 2 times daily 12/14/2020 ipratropium - albuterol 0.5 mg/2.5 mg/3 mL (DUONEB) 0.5-2.5 (3) MG/3ML neb solution Take 1 vial by nebulization 2 times daily 02/25/2021 loratadine (CLARITIN) 10 MG tablet Take 10 mg by mouth every morning 01/25/2021 nystatin [id number] UNIT/GM EX external powder Apply topically 2 times daily as needed for dry skin 03/19/2019 ondansetron (ZOFRAN-ODT) [address] 4 mg under the tongue every 8 hours as needed for nausea polyethylene glycol (MIRALAX) 17 g packet Take 1 packet by mouth every morning senna-docusate (SENOKOT-S/PERICOLACE ) 8.6-50 MG tablet Take 1 tablet by mouth 2 times daily sertraline (ZOLOFT) 100 MG tablet Take 200 mg by mouth every morning 01/25/2021 GAS RELIEF EXTRA STRENGTH 125 MG PO CAPSIndications:Flatu lence Take 1 capsule by mouth 4 times daily as needed 07/15/2019 SUMAtriptan (IMITREX) 50 MG tablet Take 50 mg by mouth at onset of headache for migraine May repeat x1 in 2 hours if needed. 06/10/2021 torsemide 20 MG PO tablet Take 20 mg by mouth daily 04/25/2019 zolpidem (AMBIEN) 5 MG tablet Take 5 mg by mouth At Bedtime 06/17/2021 Incontinence Supply Disposable (DEPEND FITTED BRIEFS /MED) MISC For home use. Will use 2 per day. Size large. 04/28/2018 artificial saliva (BIOTENE DRY MOUTHWASH) LIQD liquid Swish and spit 15 mLs in mouth every 6 hours as needed for dry mouth 12/14/2020 11/13/2023 BANOPHEN 25 MG capsule Take 25 mg by mouth every 4 hours as needed for sleep 01/28/2021 11/13/2023 cyanocobalamin 1000 MCG/ML IJ injection Inject 1 mL into the muscle every 30 days 07/15/2019 11/13/2023 diclofenac (VOLTAREN) 1 % topical gel Apply 2 g topically 4 times daily Apply to affected area. 6AM, 12PM, 6PM, 12AM 02/02/2020 11/13/2023 DIPHENHYDRAMINE HCL PO Take 25 mg by mouth every 4 hours as needed 11/13/2023 MARY-LANTA 200-200-20 MG/5ML SUSP suspension Take 10 mLs by mouth 4 times daily as needed for indigestion 06/03/2021 11/13/2023 hydrocortisone (CORTAID) 1 % external cream Apply topically 4 times daily as needed for rash 06/03/2021 11/13/2023 HYDROmorphone (DILAUDID) 2 MG tabletIndications:Ope n wound Take 1 tablet (2 mg) by mouth every 6 hours as needed for severe pain 12 tablet 06/26/2020 11/13/2023 hydrOXYzine (VISTARIL) 50 MG capsuleIndications:St atus post total right knee replacement Take 1 capsule (50 mg) by mouth 3 times daily as needed for itching 30 capsule 07/13/2021 11/13/2023 metFORMIN (GLUCOPHAGE) 500 MG tablet Take 500 mg by mouth 2 times daily (with meals) 11/13/2023 metoprolol tartrate (LOPRESSOR) 50 MG tablet Take 50 mg by mouth 2 times daily 08/13/2023 11/15/2023 metroNIDAZOLE (METROCREAM) 0.75 % external cream 09/24/2023 11/13/2023 MILK OF MAGNESIA 400 MG/5ML PO suspension Take 30 mLs by mouth daily as needed for constipation 05/18/2019 11/13/2023 pantoprazole (PROTONIX) 40 MG EC tablet Take 40 mg by mouth daily 12/14/2020 11/13/2023 prazosin (MINIPRESS) 2 MG capsule Take 2 mg by mouth At Bedtime 06/18/2021 11/13/2023 pregabalin (LYRICA) 100 MG capsule Take 100 mg by mouth 3 times daily 06/17/2021 11/13/2023 Sharps Container (IUFSMU-T-TTVLT LOCKING BRACKET) MISC Length: calf Strength: 16-20 mmHg Circumference in cm: For calf: Ankle 12, Calf 18.5 , Ankle to calf length 12 . 03/15/2018 11/18/2023 Vaginal Lubricant (REPLENS) GEL Place vaginally every 72 hours as needed (dryness) 09/23/2019 11/13/2023 warfarin ANTICOAGULANT (COUMADIN) 2 MG tablet Take 1.5-3 mg by mouth See Admin Instructions Take 11/13/2023 documented as of this encounter Plan of Treatment Upcoming Encounters Date Type Department Care Team (Late st Contact Info) Description 12/10/2023 9:30 AM CDT Office Visit [facility] Pain Management [place] [address] [facility] [address] [place] [address] [place] [address] [address] [place] [place] [id number] documented as of this encounter Procedures Procedure Name Priority Date/Time Associated Diagnosis Comments HOLTER MONITOR 24 HOUR APPLICATION SCAN ANALYSIS AND PROVIDER INTERPRETATION Routine 10/14/2023 2:18 PM CDT Longstanding persistent atrial fibrillation (H) documented in this encounter Results * HOLTER MONITOR 24 HOUR APPLICATION SCAN [...] available for review. Electronically signed by Deidre Cardenas MD 11/16/2023 ??2:52 PM Confirmed by JOSE ??ROBERTO BOLES LOC:BRIJESH ([id number]), medical transcription editor Vladimir Gilbert () on 11/18/2023 7:24:18 AM Procedure Note Deidre Cardenas MD - 11/18/2023 Holter monitoring from 10/14/2023 to 10/15/2023. Continuous atrial fibrillation, ventricular rates 81 to 153bpm, [id number]. There were no pauses of greater than 3 seconds. Rare premature ventricular contractions (<1%). No diary available for review. Electronically signed by Deidre Cardenas MD 11/16/2023 2:52 PM Confirmed by ROBERTO CARDENAS MD LOC:BRIJESH ([id number]), medical transcription editor Vladimir Gilbert () on 11/18/2023 7:24:18 AM Authorizing Provider Result Willard Thao APRN, CNP CV CARDIAC SER VICES ORDERABLES documented in this encounter Visit Diagnoses Diagnosis Longstanding persistent atrial fibrillation (H) documented in this encounter Care Teams Fish Pitcher Relationship Specialty Start Date End Date Adams Barrera [address] [facility] [address] [place] [address] PCP - General 03/30/20 Celia Kumar MD [address] [facility] [address] [place], [place] [address] Plastic Surgery 04/20/15 Charan Corbin MD [address] [facility] [address] [place], [place] [address] INTERNAL MEDICINE - ENDOCRINOLOGY, DIABETES & METABOLISM 06/19/15 [place] [address] [place] [address] Assigned PCP 03/21/21 Greta Thao APRN SLEEVE SETTER SAFETY STITCH [facility] [address] [place] [address] Nurse Practitioner Cardiology 06/09/23 Greta Thao APRN CNP [facility] [address] [place] [address] Assigned Heart and Vascular Provider 06/25/23 documented as of this encounter
--- OUTSIDE RECORDS SUMMARY | 2023-11-30 08:40 | XMS_ITS | Encounter Summary ---
Author Organization [facility] Address [address] [place] [address] Care Team Providers Care Superintendent Maintenance Air[employer] Name Role Phone Celia Kumar MD Unavailable [phone] Charan Corbin MD Unavailable [phone] Celia Kumar MD Unavailable [phone] Adams Barrera Primary Care Provider [phone] Carolina De Dios CANCER GENETICS ASSISTANT RN OR LPN Unavailable Loyda Deborah Rust MD Unavailable Greta Thao APRN RN OR LPN Unavailable [phone] Greta Thao APRN RN OR LPN Unavailable [phone] Encounter Details Date Type Department Care Team [...] Description 12/10/2023 9:30 AM CDT Office Visit [facility] Pain Management [place] [address] [facility] [address] [place], [place] [address] [place] [address] [place] [address] documented as of this encounter Visit Diagnoses Not on filedocumented in this encounter Additional Health Concerns Infection Onset Date Last Indicated Resolved Time Rule Out COVID-19 05/22/2023 05/22/2023 05/22/2023 1:25 AM DIE BAKER COVID-19 05/22/2023 05/22/2023 06/12/2023 11:3 9 PM DIE BAKER documented as of this encounter Care Teams Superintendent Maintenance Airports Relationship Specialty Start Date End Date Adams Barrera [address] [facility] [address] [place], [place] [address] PCP - General 03/30/20 Celia Kumar MD [address] [facility] [address] [place], [place] [address] Plastic Surgery 04/20/15 Charan Corbin MD [address] [facility] [address] [place], [place] [address] INTERNAL MEDICINE - ENDOCRINOLOGY, DIABETES & METABOLISM 06/19/15 Celia Kumar MD [address] [facility] [address] [place] [address] Assigned Surgical Provider 03/23/20 12/20/21 Carolina De Dios APRN RN OR LPN [address] [facility] [address] [place] [address] Assigned Heart and Vascular Provider 12/14/20 09/12/22 [place] [address] [address] [place] [address] Assigned PCP 03/21/21 Greta Thao APRN RN OR LPN [facility] [address] [place] [address] Nurse Practitioner Cardiology 06/09/23 Greta Thao APRN RN OR LPN [facility] [address] [place] [address] Assigned Heart and Vascular Provider 06/25/23 documented as of this encounter
--- OUTSIDE RECORDS SUMMARY | 2023-11-30 08:40 | XMS_ITS | Encounter Summary ---
Author Organization [facility] Address [address] [place] [address] Care Team Providers Care Technical Sales Advisor Name Role Phone Celia Kumar MD Unavailable [phone] Charan Corbin MD Unavailable [phone] Celia Kumar MD Unavailable [phone] Adams Barrera Primary Care Provider [phone] Carolina De Dios HOME CARE ADMINISTRATOR AUDIO/VIDEO TECHNICIAN Unavailable Loyda Deborah Rust MD Unavailable Greta Thao HOME CARE ADMINISTRATOR AUDIO/VIDEO TECHNICIAN Unavailable [phone] Greta Thao APRN AUDIO/VIDEO TECHNICIAN Unavailable [phone] Encounter Details Date Type Department Care Team (Late st Contact Info) Description 10/17/2020 Records - [facility] CONVERSION Priscilla Mckay MD [address] [address] Social History Tobacco Use Types Packs/Day Years [...] Description 12/10/2023 9:30 AM CDT Office Visit [facility] [place] [address] [place], [place] [address] [place] [address] [place] [address] documented as of this encounter Visit Diagnoses Not on filedocumented in this encounter Additional Health Concerns Infection Onset Date Last Indicated Resolved Time Rule Out COVID-19 05/22/2023 05/22/2023 05/22/2023 1:25 AM CLOUD INFRASTRUCTURE ARCHITECT COVID-19 05/22/2023 05/22/2023 06/12/2023 11:3 9 PM CLOUD INFRASTRUCTURE ARCHITECT documented as of this encounter Care Teams Technical Sales Advisor Relationship Specialty Start Date End Date Adams Barrera [address] [facility] [address] [place], [place] [address] PCP - General 03/30/20 Celia Kumar MD [address] [facility] [address] [place], [place] [address] Plastic Surgery 04/20/15 Charan Corbin MD [address] [facility] [address] [place], [place] [address] INTERNAL MEDICINE - ENDOCRINOLOGY, DIABETES & METABOLISM 06/19/15 Celia Kumar MD [address] [facility] [address] [place] [address] Assigned Surgical Provider 03/23/20 12/20/21 Carolina De Dios APRN AUDIO/VIDEO TECHNICIAN [address] [facility] [address] [place] [address] Assigned Heart and Vascular Provider 12/14/20 09/12/22 [place] [address] [place] [address] Assigned PCP 03/21/21 Greta Thao APRN AUDIO/VIDEO TECHNICIAN [facility] [address] [place] [address] Nurse Practitioner Cardiology 06/09/23 Greta Thao APRN AUDIO/VIDEO TECHNICIAN [facility] [address] [place] [address] Assigned Heart and Vascular Provider 06/25/23 documented as of this encounter
--- OUTSIDE RECORDS SUMMARY | 2023-11-30 08:40 | XMS_ITS | Encounter Summary ---
Author Organization [place] Address [address] [place] [id number] Care Team Providers Care Permastone Applicator Name Role Phone JoséCelia MD Unavailable [phone] Charan Corbin MD Unavailable [phone] Nelson Townsend Primary Care Provider [phone] Deborah Walsh MD Unavailable Greta Thao APRN CONGRESSIONAL DISTRICT AIDE Unavailable [phone] Greta Thao APRN CONGRESSIONAL DISTRICT AIDE Unavailable [phone] Reason for Visit * Reason Comments Atrial Fib * Auth/Cert (Routine) Specialty Diagnoses / Procedures Referred By Katina t Referred To Contact Med Surg Diagnoses Exertional dyspnea Atrial fibrillation with RVR (H) Subtherapeutic international normalized ratio (INR) Warfarin anticoagulation Atrial fibrillation with RVR (H) Exertional dyspnea Subtherapeutic international normalized ratio (INR) Warfarin anticoagulation [address] [address] Referral ID Status Reason Start Date Expiration Date Visits Re quested Visits Authorized [id number] 1 1 Encounter Details Date Type Department Care Team (Latest Contact Info) Description 11/13/2023 2:36 PM CDT - 11/16/2023 1:34 PM CDT Hospital Encounter [facility] [address] [place] [address] Mauro Soliman MD [address] [place] [address] Jessica Sow MD [address] [place] [phone] Kike Russell MD [address] [place] [phone] Atrial fibrillation with RVR (H); Exertional dyspnea; Subtherapeutic international normalized ratio (INR); Warfarin anticoagulation Discharge Disposition: Intermediate Care Facility with Planned Hospital IP Readmission Social History Tobacco Use Types Packs/Day Years [...] Date Recorded PHQ-2 Score 1 07/20/2019 [facility] - Occupational Stress Questionnaire Answer Date Recorded [...] Sign Reading Time Taken Comments Blood Pressure 128/94 11/16/2023 11:00 AM CDT RN Notifyed Pulse 70 11/16/2023 11:00 AM CDT Temperature 36.6 ??C (97.8 ??F) 11/16/2023 1 1:00 AM CDT Respiratory Rate 18 11/16/2023 11:0 0 AM CDT Oxygen Saturation 98% 11/16/2023 11: 00 AM CDT Inhaled Oxygen Concentration - - Weight 89.7 kg (197 lb 12.8 oz) 11/15/2023 11:00 AM CDT Height 157.5 cm (5' 2) 11/14/2023 2:28 PM CDT Body Mass Index 36.18 11/14/2023 2:28 PM CDT documented in this encounter Discharge Summaries * Pablito Morejon MD - 11/16/2023 1:27 PM CDT [facility] Discharge Summary - Medicine & Pediatrics Date of Admission: 11/13/2023 Date of Discharge: 11/16/2023 Discharging Provider: Kike Russell MD; Pablito Morejon MD Discharge Service: Hospitalist Service Discharge Diagnoses Afib with RVR Subtherapeutic INR Clinically Significant Risk Factors # Obesity: Estimated body mass index is 36.18 kg/m?? as calculated from the following: Height as of this encounter: 1.575 m (5' 2). Weight as of this encounter: 89.7 kg (197 lb 12.8 oz). Follow-ups Needed After Discharge Follow-up Appointments Follow-up and recommended labs and tests Follow up with primary care provider, NELSON TOWNSEND, within 7 days to evaluate medication change and for hospital follow- up. No follow up labs or test are needed. Unresulted Labs Ordered in the Past 30 Days of this Admission Date and Time Order Name Status Description 11/13/2023 8:37 PM Vitamin B1 whole blood In process These results will be followed up by PCP Discharge Disposition Discharged to long-term care facility Condition at discharge: Stable Hospital Course Brandee Cordova is a 63 year old female admitted on 11/13/2023. She has a history of persistent atrial fibrillation (previously on warfarin), tachycardia mediated cardiomyopathy, HFrEF (28%) hypertension, hyperlipidemia, type 2 diabetes, lacunar CVA 2017, asthma, bipolar disorder, ADHD, anxiety and depression, nicotine use, morbid obesity status post gastric bypass 2002, polysubstance abuse (alcohol, methamphetamines, cocaine) and cognitive impairment. The following issues were addressed during this hospitalization: Persistent Atrial Fibrillation with RVR, resolved HFpEF (50-55% EF 11/16/23) Prior to arrival, patient's last echo was in 12/2022 with EF 40%. Echo this admission demonstrated EF 50-55, right atrium is mildly dilated, the left atrium is moderate to severely dilated. She presented to the hospital after she was found to be in RVR at her outpatient cardiology appointment. On arrival, EKG showed A fib without ST changes, normal troponin, elevated BNP, hgb 11.2, TSH wnl. Patient responded well to diltiazem 10mg. Cardiology was consulted and her metoprolol was increased from 50mg to 100mg BID. She also received 2 days of digoxin with normalization of her HR. 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 Recent dose changes on 11/05 and 11/10 per chart review of anticoag clinic notes. Patient stated she has not missed any doses of warfarin recently but does endorse some dietary changes with less green vegetables as of late. - Pharmacy consulted to manage warfarin --> stopped 11/13 in favor for doac as above -discharged home on Elliquis Polysubstance Use Disorder (alcohol, methamphetamines, cocaine) Nicotine Use Disorder Chronic back pain Patient states her use disorders are in full remission. Last EtOH consumption was >1 week ago. Last methamphetamine and/or cocaine use was 15-20 yrs prior. However, there is some concern regardingher substance use (please reference pharmacy note from 11/14/2023 regarding their conversation with her assisted living facility.) Patient has repeatedly requested dilaudid during this admission, however this mediation has not been filled since 09/28/23 and her facility has not administered any in over a month. She received 1mg dilaudid q6hr PRN for severe pain. No narcotics were refilled at discharge. RLS Iron deficiency anemia Failed treatment with ropinirole previously. Hgb 11.2 on admission. Microcytic anemia and iron studies suggestive of iron deficiency anemia. She received an iron infusion while admitted. Consultations This Hospital Stay INTERVENTIONAL RADIOLOGY ADULT/PEDS IP CONSULT PHARMACY TO DOSE WARFARIN CARDIOLOGY IP CONSULT PAIN MANAGEMENT ADULT IP CONSULT CARE MANAGEMENT / SOCIAL WORK IP CONSULT OCCUPATIONAL THERAPY ADULT IP CONSULT Code Status Full Code The patient was discussed with Dr. Kike Morejon MD ORANGE Team Service [facility] [address] [place] [id number] Physical Exam Vital Signs: Temp: 97.8 ??F (36.6 ??C) Temp src: Oral BP: (!) 128/94 (RN Notifyed) Pulse: 70 Resp: 18 SpO2: 98 % O2 Device: None (Room air) Weight: 197 lbs 12.8 oz Constitutional: awake, alert, cooperative, no apparent distress, and appears stated age ENT: normocephalic, without obvious abnormality Respiratory: No increased work of breathing, good air exchange, clear to auscultation bilaterally, no crackles or wheezing Cardiovascular: irregular rhythm, normal rate; no murmur noted, bilateral edema, and carotids without bruits bilaterally GI: Normal bowel sounds, soft, non-distended, non-tender, no masses palpated, no hepatosplenomegally Skin: normal skin color, texture, turgor Neurologic: Awake, alert, oriented to name, place and time. Neuropsychiatric: Affect: pleasant Primary Care Physician NELSON TOWNSEND Discharge Orders Reason for your hospital stay You were hospitalized for Afib with heart rates >120. You got your heart rate under control and now are safe to be discharge back to your assisted living facility. Follow-up and recommended labs and tests Follow up with primary care provider, NELSON TOWNSEND, within 7 days to evaluate medication change and for hospital follow- up. No follow up labs or test are needed. Activity Your activity upon discharge: activity as tolerated Diet Follow this diet upon discharge: Orders Placed This Encounter Combination Diet Regular Diet Adult; Moderate Consistent Carb (60 g CHO per Meal) Diet; 2 gm NA Diet Significant Results and Procedures Most Recent 3 CBC's: Recent Labs Lab Test 11/16/23 0457 11/15/23 0743 11/14/23 0836 WBC 9.2 8.0 6.3 HGB 11.2* 11.2* 9.9* MCV 73* 75* 75* PLT 228 215 184 Most Recent 3 BMP's: Recent Labs Lab Test 11/15/23 0743 11/14/23 0548 11/13/23 1448 NA 136 136 136 POTASSIUM 4.2 4.4 4.0 CHLORIDE 102 103 99 CO2 20* 19* 20* BUN 19.2 16.9 19.1 CR 0.50* 0.58 0.69 ANIONGAP 14 14 17* EMI 9.1 9.0 9.1 GLC 163* 135* 259* , Results for orders placed or performed during the hospital encounter of 11/13/23 CT Chest Pulmonary Embolism w Contrast Narrative EXAM: CT CHEST PULMONARY EMBOLISM W CONTRAST LOCATION: [facility] DATE: 11/13/2023 INDICATION: chest pain, a fib RVR, low INR COMPARISON: 07/11/2021 TECHNIQUE: CT chest pulmonary angiogram during arterial phase injection of IV contrast. Multiplanarreformats and MIP reconstructions were performed. Dose reduction techniques were used. CONTRAST: ISOVUE 370 75mL FINDINGS: ANGIOGRAM CHEST: The main pulmonary artery measures 3.3 cm which is slightly prominent size (normalis 3.2 cm or less, these changes can [...] Moderate scattered degenerative changes in the spine. Impression IMPRESSION: 1. No PE, dissection, or aneurysm. 2. Slight prominence of central pulmonary artery which can be associated with pulmonary arterial hypertension. 3. Mild cardiomegaly with no evidence for active CHF. 4. Moderate coronary artery calcification. Echocardiogram Complete Value LVEF 50-55% (borderline) [facility] [id number] [id number]^KAI^[place] [address] Name: BRANDEE CORDOVA : 1960 Study Date: 11/14/2023 12:15 PM Age: 63 yrs Gender: Female Patient Location: [facility] Reason For Study: Atrial Fibrillation Ordering Physician: LISANDRA QUINN Performed By: DAYO BSA: 1.9 m2 Height: 62 in Weight: 201 lb HR: 97 BP: 102/67 mmHg Procedure Complete Portable Echo Adult. Definity ([facility] #[id number]) given intravenously. No hemodynamically significant valvular abnormalities [...] approved by: Trupti Mao 11/14/2023 03:06 PM Discharge Medications Current Discharge Medication List START taking these medications Details apixaban ANTICOAGULANT (ELIQUIS) 5 MG tablet Take 1 tablet (5 mg) by mouth 2 times daily Qty: 180 tablet, Refills: 0 Associated Diagnoses: Atrial fibrillation with RVR (H) diltiazem ER COATED BEADS (CARDIZEM CD/CARTIA XT) 120 MG 24 hr capsule Take 1 capsule (120 mg) by mouth daily Qty: 90 capsule, Refills: 0 Associated Diagnoses: Atrial fibrillation with RVR (H) CONTINUE these medications which have CHANGED Details metoprolol tartrate (LOPRESSOR) 100 MG tablet Take 1 tablet (100 mg) by mouth 2 times daily Qty: 180 tablet, Refills: 0 Associated Diagnoses: Atrial fibrillation with RVR (H) CONTINUE these medications which have NOT CHANGED Details albuterol (VENTOLIN HFA) 108 (90 Base) MCG/ACT IN inhaler Inhale 2 puffs into the lungs every 6 hours as needed Comments: Pharmacy may dispense brand covered by insurance (Proair, or proventil or ventolin or generic albuterol inhaler) amoxicillin (AMOXIL) 500 MG capsule Take 2,000 mg by mouth See Admin Instructions Take 2,000 mg 1 hour prior to dental appointment as needed. atorvastatin 40 MG PO tablet Take 40 mg by mouth At Bedtime azelastine 0.1 % NA nasal spray [place] 1 spray into both nostrils 2 times daily buprenorphine HCl-naloxone HCl (SUBOXONE) 8-[address] 1 Film under the tongue every morning busPIRone (BUSPAR) 15 MG tablet Take 15 mg by mouth every 6 hours as needed (anxiety) clobetasol propionate (TEMOVATE) 0.05 % external cream Apply topically 2 times daily as needed (dryfeet) Apply to affected areas on feet twice daily as needed. cloNIDine (CATAPRES) 0.1 MG tablet Take 0.1 mg by mouth every 6 hours as needed (for withdrawal) Cyanocobalamin 1000 MCG CAPS Take 1,000 mcg by mouth every morning diazepam (VALIUM) 5 MG tablet Take 5 mg by mouth See Admin Instructions Take 30 minutes prior to procedure fluticasone (FLONASE) 50 MCG/ACT nasal spray [place] 1 spray into both nostrils 2 times daily fluticasone-salmeterol (ADVAIR) 250-50 MCG/DOSE inhaler Inhale 1 puff into the lungs 2 times daily glycerin (ADULT) [address] 1 [...] 1 vial by nebulization 2 times daily ketoconazole (NIZORAL) 2 % external shampoo Apply [...] Take 10 mg by mouth every morning methocarbamol (ROBAXIN) 500 MG tablet Take 500 [...] daily. naloxone (NARCAN) 4 MG/0.1ML nasal spray [place] 4 mg into one nostril alternating nostrils as neededfor opioid reversal every 2-3 minutes until assistance arrives nystatin [id number] UNIT/GM EX external powder Apply topically 2 times daily as needed for dry skin omeprazole (PRILOSEC) [address] capsule Take [...] Take 200 mg by mouth every morning SM GAS RELIEF EXTRA STRENGTH 125 MG PO CAPS Take 1 capsule by mouth 4 times daily as needed SUMAtriptan (IMITREX) 50 MG tablet Take 50 mg by mouth at onset of headache for migraine May repeatx1 in 2 hours if needed. tacrolimus (PROTOPIC) 0.1 % external ointment Apply topically 2 times daily Apply a thin layer to affected areas on body 1-2 times daily. torsemide 20 MG PO tablet Take 20 mg by mouth daily triamcinolone (KENALOG) 0.1 % external cream Apply topically 2 times daily Apply topically to affected areas on arms twice daily. zolpidem (AMBIEN) 5 MG tablet Take 5 mg by mouth At Bedtime Incontinence Supply Disposable (DEPEND FITTED BRIEFS SM/MED) MISC For home use. Will use 2 per day.Size large. Sharps Container (OMPYUM-X-JIUWQ LOCKING BRACKET) MISC Length: calf Strength: 16-20 mmHg Circumference in cm: For calf: Ankle 12, Calf 18.5 , Ankle to calf length 12 . STOP taking these medications digoxin (LANOXIN) 125 MCG tablet Comments: Reason for Stopping: doxycycline hyclate (VIBRAMYCIN) 100 MG capsule Comments: Reason for Stopping: warfarin ANTICOAGULANT (COUMADIN) 3 MG tablet Comments: Reason for Stopping: Allergies Allergies Allergen Reactions Gramineae Pollens Rash Trimethoprim Swelling and Rash Erythromycin Rash Penicillins Rash Sulfa Antibiotics Rash Latex Added based on information entered during log entry, please review and add reactions, type, and severity as needed Mold Nsaids GI Disturbance Short Ragweed Pollen Ext Trees Adhesive Tape Unknown and Rash Aspirin Other reaction(s): Other (see comments) Due to gastric bypass Cephalosporins Rash Ciprofloxacin Rash Liquid Adhesive Rash Patient allergic to pressure tape or foam tape. Tolmetin Rash Pt had bariatric surgery, should not ever take oral NSAIDS due to risk of gastric ulcers. Tramadol Rash Troleandomycin Rash Patient unsure if she also had angioedema from these medications. Associated attestation - Kike Russell MD - 11/16/2023 1:54 PM CDT Physician Attestation I saw and evaluated this patient prior to discharge. I discussed the patient with the resident/fellow and agree with plan of care as documented in the note. I personally reviewed vital signs, medications, and labs. I personally spent 15 minutes on discharge activities. Kike Russell MD Date of Service (when I saw the patient): 11/16/23 documented in this encounter Medications at Time of Discharge Medication Sig Dispensed Refills Start Date End Date albuterol (VENTOLIN HFA) 108 (90 Base) MCG/ACT IN inhaler Inhale 2 puffs into the lungs every 6 hours as needed 01/02/2019 apixaban ANTICOAGULANT (ELIQUIS) 5 MG tabletIndications:Anay b-non valvular Take 1 tablet (5 mg) by mouth 2 times daily 180 tablet 11/16/2023 atorvastatin 40 MG PO tablet Take 40 mg by mouth At Bedtime 01/29/2019 azelastine 0.1 % NA nasal sprayIndications:stephen rgies Inwood 1 spray into both nostrils 2 times [...] (CARDIZEM CD/CARTIA XT) 120 MG 24 hr capsuleIndications:At rial fibrillation with RVR (H) Take 1 capsule (120 mg) by mouth daily 90 capsule 11/16/2023 fluticasone (FLONASE) 50 MCG/ACT nasal spray [place] 1 spray into both nostrils 2 times [...] daily. naloxone (NARCAN) 4 MG/0.1ML nasal spray [place] 4 mg into one nostril alternating nostrils as needed for opioid reversal every 2-3 minutes until assistance arrives nystatin [id number] UNIT/GM EX external powder Apply topically 2 [...] mg by mouth nightly as needed senna-docusate (SENOKOT-S/PERICOLACE ) 8.6-50 MG tablet Take [...] use 2 per day. Size large. 04/28/2018 amoxicillin (AMOXIL) 500 MG capsule Take 2,000 mg by mouth See Admin Instructions Take 2,000 mg 1 hour prior to dental appointment as needed. 11/18/2023 metoprolol tartrate (LOPRESSOR) 100 MG tabletIndications:Atr ial fibrillation with RVR (H) Take 1 tablet (100 mg) by mouth 2 times daily 180 tablet 11/16/2023 11/18/2023 Sharps Container (BZCYHB-P-[id number] LOCKING BRACKET) MISC Length: calf Strength: 16-20 mmHg Circumference in cm: For calf: Ankle 12, Calf 18.5 , Ankle to calf length 12 . 03/15/2018 11/18/2023 documented as of this encounter Progress Notes * Rhonda Dee RN - 11/16/2023 1:32 PM CDT Discharge education provided about follow up appointments, medications, and daily care. Patient verbalized understanding. * Rebeca Nance RN - 11/16/2023 10:46 AM CDT Care Management Discharge Note Discharge Date: 11/16/2023 Discharge Disposition: Assisted Living Discharge Services: None Discharge DME: None Discharge Transportation: WC ride through health insurance Private pay costs discussed: Not applicable Does the patient's insurance plan have a 3 day qualifying hospital stay waiver? No PAS Confirmation Code: n/a Patient/family educated on Medicare website which has current facility and service quality ratings:n/a Education Provided on the Discharge Plan: yes Persons Notified of Discharge Plans: patient Patient/Family in Agreement with the Plan: yes Additional Information: Per patient's medical team, patient is medically ready for discharge back to [facility]. Faxed discharge paperwork to the [facility] facility. RN called the [facility] facility and spoke with nurse Ledbetter, who states she received the paperwork. Patient will need a medical ride for transport. Patient states she will schedule her own ride through her insurance company. Patient requested to speak with provider regarding her echo results, patient is stating she wants to knowwhat was found on the echo. Provider team updated, and will speak with patient around noon. [facility]was notified. [facility] Addendum: Received call from nurse Ledbetter from [facility] at 1:53 pm. Caller was askingfor a report or any updates to patient. Report was given. Rebeca Nance RN Care Manager 11/16/2023 * Russ Stewart RT - 11/16/2023 1:31 AM CDT Pt took her scheduled neb during my shift. Up on assessment pt was on RA with SAT in mid 90's. BS: clear diminished. RT will continue to administer this nebs as currently scheduled and will continue to monitor pt. * Pablito Morejon MD - 11/15/2023 4:23 PM CDT [facility] Progress Note - Hospitalist Service Date of Admission: 11/13/2023 Assessment & Plan Brandee Cordova is a 63 year old female admitted [...] and is admitted for a fib with RVR. No longer in RVR with stable normal rates. Anticipate discharge within the next 0-1 day back to her [facility] p ending transportation. Persistent Atrial Fibrillation with RVR, resolved HFpEF (50-55% EF 11/16/23) Prior to arrival, patient's last echo was in 12/2022 with EF 40%. Echo this admission demonstrated EF 50-55, right atrium is mildly dilated, the left atrium is moderate to severely dilated. She presented to the hospital after she was found to be in RVR at her outpatient cardiology appointment. On arrival, EKG showed A fib without ST changes, normal troponin, elevated BNP, hgb 11.2, TSH wnl. Patient responded well to diltiazem 10mg. Cardiology was consulted and her metoprolol was increased from 50mg to 100mg BID. She also received 2 days of digoxin with improvement of her HR. HR's now have been <120 and clinically stable. 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 Recent dose changes on 11/05 and 11/[address] [facility] clinic notes. Patient states she has not missed any doses of warfarin recently but does endorse some dietary changes with less green vegetables as of late. - Pharmacy consult to manage warfarin --> stopped 11/13 in favor for doac as above [id number] Most recent A1c of 6.9% in 07/2023. Reports she is on monotherapy with metformin though it appears to have been recently discontinued per med rec. BG elevated to 259 on admission. Sugars since have been within goal. - Diabetic diet Polysubstance Use Disorder (alcohol, methamphetamines, cocaine) Nicotine Use Disorder Chronic back pain Patient states her use disorders are in full remission. Last EtOH consumption was >1 week ago. Last methamphetamine and/or cocaine use was 15-20 yrs prior. However, there is some concern regardingher substance use (please reference pharmacy note from 11/14/2023 regarding their conversation with her assisted living facility.) Patient has repeatedly requested dilaudid during this admission, however this mediation has not been filled since 09/28/23 and her facility has not administered any in over a month. - Monitor - Nicotine replacement therapy with lozenges - Thiamine IM replacement - Pain team consulted; appreciate recs - s/p dilaudid x5 here -1 mg dilaudid q6h prn RLS Iron deficiency anemia Failed treatment with ropinirole previously. Hgb 11.2 on admission. Microcytic anemia and iron studies suggestive of iron deficiency anemia. Will give iron infusion. 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 Indication: Tachyarrhythmias, acute (48 hours) Code Status: Full Code Clinically Significant Risk Factors # Hypertension: Noted on problem list # Obesity: Estimated body mass index is 36.18 kg/m?? as calculated from the following: Height as of this encounter: 1.575 m (5' 2). Weight as of this encounter: 89.7 kg (197 lb 12.8 oz)., PRESENT ON ADMISSION # Financial/Environmental Concerns: none # Asthma: noted on problem list Disposition Plan Expected Discharge Date: 11/15/2023 Destination: assisted living The patient's care was discussed with the Attending Physician, Dr. Sow . Pablito Morejon MD Hospitalist Service [facility] Securely message with [employer] (more info) Text page via [facility] Paging/Directory Interval History Requesting pain meds overnight. Requesting zolpidem for sleep. Denies any chest pain or SOB this morning. Rates now normal. Physical Exam Vital Signs: Temp: 97.7 ??F (36.5 ??C) Temp src: Oral BP: (!) 143/90 Pulse: 79 Resp: 18 SpO2: 98 % O2 Device: None (Room air) Weight: 197 lbs 12.8 oz Constitutional: awake, alert, cooperative, no apparent distress, and appears stated age ENT: normocephalic, without obvious abnormality Respiratory: No increased work of breathing, good air exchange, clear to auscultation bilaterally, no crackles or wheezing Cardiovascular: irregular rhythm, normal rate; no murmur noted, bilateral edema, and carotids without bruits bilaterally GI: Normal bowel sounds, soft, non-distended, non-tender, no masses palpated, no hepatosplenomegally Skin: normal skin color, texture, turgor Neurologic: Awake, alert, oriented to name, place and time. Neuropsychiatric: Affect: pleasant Data Imaging results reviewed over the past 24 hrs: No results found for this or any previous visit (from the past 24 hour(s)). Most Recent 3 CBC's: Recent Labs Lab Test 11/15/23 0743 11/14/23 0836 11/13/23 1448 WBC 8.0 6.3 8.4 HGB 11.2* 9.9* 11.2* MCV 75* 75* 74* PLT 215 184 249 Most Recent 3 BMP's: Recent Labs Lab Test 11/15/23 0743 11/14/23 0548 11/13/23 1448 NA 136 136 136 POTASSIUM 4.2 4.4 4.0 CHLORIDE 102 103 99 CO2 20* 19* 20* BUN 19.2 16.9 19.1 CR 0.50* 0.58 0.69 ANIONGAP 14 14 17* EIM 9.1 9.0 9.1 GLC 163* 135* 259* Most Recent 3 INR's: Recent Labs Lab Test 11/15/23 0743 11/14/23 0548 11/13/23 2113 INR 1.34* 1.52* 1.60* Associated attestation - Jessica Sow MD - 11/15/2023 8:02 PM CDT Physician Attestation I personally examined and evaluated this patient. I discussed the patient with the resident/fellow and care team, and agree with the assessment and plan of care as documented in the note. Mc findings: Patient's heart rate is now controlled. Given patient's history of bariatric surgery,severe restless legs, and iron deficiency, will initiate parenteral iron therapy. Jessica Sow MD Date of Service (when I saw the patient): 11/15/23 * Lisandra Quinn MD - 11/15/2023 11:03 AM CDT Images from the original note were not included. HEART CARE CONSULTATON NOTE Assessment/Recommendations Assessment: 1. Atrial fibrillation: Persistent atrial fibrillation with history of cardioversion in the past had been maintained on amiodarone and sotalol. Taken off antiarrhythmic therapy and lost to follow-up for a few years. Persistent atrial fibrillation for unknown duration and when seen in atrial fibrillation clinic rate control strategy was initially recommended. Admitted to the hospital due to concerns for symptoms over the preceding few weeks and atrial fibrillation with rapid ventricular response. Atrial fibrillation is now well rate controlled 2. History of polysubstance abuse alcohol, cocaine and methamphetamines repeatedly asking for more Dilaudid 3. Bipolar, ADHD, anxiety/depression 4. History of CVA 2018 5. Cognitive dysfunction 6. Diabetes mellitus type 2 7. History of tachycardia mediated cardiomyopathy 8. Acute heart failure with preserved ejection fraction: Plan: 1. Continue on metoprolol 100 mg twice daily and add diltiazem 120 mg once daily 2. Would recommend considering stopping Coumadin and maintain on Eliquis 5 mg twice daily due to her difficulty maintaining therapeutic INRs 3. No further cardiac recommendations at this time. Please call if any further questions or concerns Clinically Significant Risk Factors # Hypertension: Noted on problem list # Obesity: Estimated body mass index is 36.18 kg/m?? as calculated from the following: Height as of this encounter: 1.575 m (5' 2). Weight as of this encounter: 89.7 kg (197 lb 12.8 oz)., PRESENT ON ADMISSION # Financial/Environmental Concerns: none # Asthma: noted on problem list History of Present Illness/Subjective Patient repeatedly asking for more pain medications. Otherwise no complaints of shortness of breath, chest pain. Telemetry showing now rate controlled atrial fibrillation. Echocardiogram 11/14/2023 The left ventricle is normal in size. Left ventricular function is decreased. The ejection fraction is 50-55% (borderline). Normal right ventricle size and systolic function. The right atrium is mildly dilated. The left atrium is moderate to severely dilated. Mildly dilated aortic root. Physical Examination Review of Systems VITALS: BP (!) 121/91 (BP Location: Right arm, Patient Position: Semi-Dimas's, Cuff Size: Adult Regular) Pulse 87 Temp 97.7 ??F (36.5 ??C) (Oral) Resp 18 Ht 1.575 m (5' 2) Wt 89.7 kg (197lb 12.8 oz) SpO2 96% BMI 36.18 kg/m?? BMI: Body mass index is 36.18 kg/m??. Wt Readings from Last 3 Encounters: 11/15/23 89.7 kg (197 lb 12.8 oz) 11/13/23 91.2 kg (201 lb) 08/27/23 94.3 kg (208 lb) Intake/Output Summary (Last 24 hours) at 11/15/2023 1107 Last data filed at 11/15/2023 0800 Gross per 24 hour Intake 960 ml Output 1300 ml Net -340 ml General Appearance: no distress, normal body habitus ENT/Mouth: membranes moist, no oral lesions or bleeding gums. EYES: no scleral icterus, normal conjunctivae Neck: no carotid bruits or thyromegaly Chest/Lungs: lungs are clear to auscultation Cardiovascular: irregular. Normal first and second heart sounds with no murmur no edema bilaterally Extremities: no cyanosis or clubbing Skin: no xanthelasma, warm. Neurologic: normal fence supervisor bilateral, no tremors Psychiatric: alert and oriented x3, calm Review Of Systems Skin: negative Eyes: negative Ears/Nose/Throat: negative Respiratory: No shortness of breath, dyspnea on exertion, cough, or hemoptysis Cardiovascular: negative Gastrointestinal: negative Genitourinary: negative Musculoskeletal: negative Neurologic: negative Psychiatric: negative Hematologic/Lymphatic/Immunologic: negative Endocrine: negative Lab Results Chemistry/lipid CBC Cardiac Enzymes/BNP/TSH/INR No results for input(s): CHOL, HDL, LDL, TRIG, CHOLHDLRATIO in the last 63861 hours. No results for input(s): LDL in the last 38128 hours. Recent Labs Lab Test 11/15/23 0743 NA 136 POTASSIUM 4.2 CHLORIDE 102 CO2 20* GLC 163* BUN 19.2 CR 0.50* GFRESTIMATED >90 EMI 9.1 Recent Labs Lab Test 11/15/23 0743 11/14/23 0548 11/13/23 1448 CR 0.50* 0.58 0.69 Recent Labs Lab Test 07/05/21 1009 04/08/21 1148 11/14/20 0551 A1C 6.8* 6.8* 6.3* Recent Labs Lab Test 11/15/23 0743 WBC 8.0 HGB 11.2* HCT 38.6 MCV 75* PLT 215 Recent Labs Lab Test 11/15/23 0743 11/14/23 0836 11/13/23 1448 HGB 11.2* 9.9* 11.2* Recent Labs Lab Test 11/09/20 0125 TROPONINI <0.01 Recent Labs Lab Test 11/13/23 1448 07/11/21 0525 11/10/20 0451 BNP -- 77 341* NTBNPI 1,082* -- -- Recent Labs Lab Test 11/13/23 1448 TSH 1.68 Recent Labs Lab Test 11/15/23 0743 11/14/23 0548 11/13/23 2113 INR 1.34* 1.52* 1.60* Medical History Surgical History Family History Social History Past Medical History: Diagnosis Date Alcohol abuse Anemia transfusion needed s/p uterine fibroids and gastric bypass Anxiety Arthritis OA Asthma Bipolar 1 disorder CHF (congestive heart failure) Chronic back pain Depression Diabetes mellitus Gastroesophageal reflux disease History of cocaine 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/2010 Per [facility] medical record Hypertension Obesity Paroxysmal atrial fibrillation 2018 Peptic ulcer disease PTSD (post-traumatic stress disorder) Rosacea Stroke 2016 bleed on brain, denies residual Past Surgical History: Procedure Laterality Date Abdominal hernia repair with mesh ANKLE SURGERY ARTHROPLASTY HIP Left ARTHROPLASTY KNEE Right 07/09/2021 Procedure: RIGHT TOTAL KNEE ARTHROPLASTY; Surgeon: Jamin Siegel MD; Location: [facility] Main OR ARTHROPLASTY SHOULDER Left BAND HEMORRHOIDECTOMY [...] HIP ARTHROPLASTY; Surgeon: Jamin Siegel MD; Location: [facility]; Service: Orthopedics Family History Problem Relation Age of Onset Atrial fibrillation Mother Diabetes Father Cerebrovascular Disease Father Diabetes Brother Social History Socioeconomic History Marital status: Spouse name: Not on file Number of children: Not on file Years of education: Not on file Highest education level: Not on file Occupational History Not on file Tobacco Use Smoking status: Every Day Current packs/day: 0.00 Types: Hookah, Cigarettes Last attempt to quit: 07/02/2020 Years since quittin.3 Smokeless tobacco: Never Tobacco comments: 3 cigarettes a day Vaping Use Vaping status: Never Used Substance and Sexual Activity Alcohol use: Not Currently Comment: former, maybe once at holidays Drug use: Not Currently Comment: marijuana former Sexual activity: Not on file Other Topics Concern Parent/sibling w/ CABG, CO or angioplasty before 65F 55M? Not Asked Social History Narrative Not on file Social Determinants of Health Financial Resource Strain: Medium Risk (07/05/2021) Overall Financial Resource Strain (CARDIA) Difficulty of Paying Living Expenses: Somewhat hard Food Insecurity: No Food Insecurity (07/05/2021) Hunger Vital Sign Worried About Running Out of Food in the Last Year: Never true Ran Out of Food in the Last Year: Never true Transportation Needs: No Transportation Needs (07/05/2021) PRAPARE - Transportation Lack of Transportation (Medical): No Lack of Transportation (Non-Medical): No Physical Activity: Inactive (07/05/2021) Exercise Vital Sign Days of Exercise per Week: 0 days Minutes of Exercise per Session: 10 min Stress: No Stress Concern Present (07/05/2021) [employer] [place] [employer] - Occupational Stress Questionnaire Feeling of Stress : Only a little Social Connections: Unknown (08/31/2023) Received from [facility] Social Connections Frequency of Communication with Friends and Family: Not on file Interpersonal Safety: Not on file Housing Stability: Low Risk (07/05/2021) Housing Stability Vital Sign Unable to Pay for Housing in the Last Year: No Number of Places Lived in the Last Year: 1 Unstable Housing in the Last Year: No Medications Allergies No current outpatient medications on file. Allergies Allergen Reactions Gramineae Pollens Rash Trimethoprim Swelling and Rash Erythromycin Rash Penicillins Rash Sulfa Antibiotics Rash Latex Added based on information entered during log entry, please review and add reactions, type, and severity as needed Mold Nsaids GI Disturbance Short Ragweed Pollen Ext Trees Adhesive Tape Unknown and Rash Aspirin Other reaction(s): Other (see comments) Due to gastric bypass Cephalosporins Rash Ciprofloxacin Rash Liquid Adhesive Rash Patient allergic to pressure tape or foam tape. Tolmetin Rash Pt had bariatric surgery, should not ever take oral NSAIDS due to risk of gastric ulcers. Tramadol Rash Troleandomycin Rash Patient unsure if she also had angioedema from these medications. Lisandra Quinn MD * oJvon Warner RT - 11/15/2023 5:02 AM CDT Patient received scheduled Duoneb per home routine. Patient on room air and breath sounds diminished bilaterally. RT will continue to follow. * Belkys Brown RN - 11/14/2023 6:42 PM CDT Pt admitted from the ED. Continually asking for IV dilaudid, Xanax, and Benadryl. Updated MD, see provider notification note for details. Medicated for pain within orders, controlled well. Pt made several statements about her care facility stating they are all high schoolers and can't manage my medications and they always give me too many of one medication and not enough of another, notified foam charger and left note for social work associate. 2 RN skin assessment completed. Telemetry with Afib 70-110. Tolerating a regular diet. Able to make needs known, bed alarms used for safety. * Live Ramirez MD - 11/14/2023 2:28 PM CDT [facility] Progress Note - Hospitalist Service Date of Admission: 11/13/2023 Assessment & Plan Brandee Cordova is a 63 year old female admitted on 11/13/2023. She has a history of persistent atrial fibrillation (on warfarin), tachycardia mediated cardiomyopathy, HFrEF (28%) hypertension, hyperlipidemia, type 2 diabetes, lacunar CVA 2017, asthma, bipolar disorder, ADHD, anxiety and depression, nicotine use, morbid obesity status post gastric bypass 2002, polysubstance abuse (alcohol, methamphetamines, cocaine) and cognitive impairment and is admitted for a fib with RVR. Persistent Atrial Fibrillation with RVR, improving HFrEF (40% EF in 12/2022) EKG showed A fib without ST changes, normal troponin, elevated BNP, hgb 11.2, TSH wnl. Most recent echo in 12/2022 with EF 40%. Appears euvolemic on admission. Echo demonstrates EF 50-55, right atrium is mildly dilated, the left atrium is moderate to severely dilated. - Cardiology consult -lasix IV 20 mg q6h -metoprolol 50 mg q6h -digoxin 125 mcg q6h -stopped diltiazem -start elliquis, stop warfarin -hold lisinopril -echo - Cardiac tele Subtherapeutic INR INR 1.55 on admission, goal of 2-3. Recent dose changes on 11/05 and 11/10 per chart review of anticoag clinic notes. Patient states she has not missed any doses of warfarin recently but does endorse some dietary changes with less green vegetables as of late. - Pharmacy consult to manage warfarin --> stopped 11/13 - Would require CRIS prior to DCCV T2DM Most recent A1c of 6.9% in 07/2023. Reports she is on monotherapy with metformin though it appears to have been recently discontinued per med rec. BG elevated to 259 on admission. - Diabetic diet - AM BMP Polysubstance Use Disorder (alcohol, methamphetamines, cocaine) Nicotine Use Disorder Patient states her use disorders are in full remission. Last EtOH consumption was >1 week ago. Last methamphetamine and/or cocaine use was 15-20 yrs prior. No signs of intoxication or withdrawal on exam. - Monitor - Nicotine replacement therapy with lozenges - Thiamine IM replacement - thiamine level Chronic pain - Pain team consult - s/p dilaudid x5 here -0.2 mg dilaudid q6h prn -ativan 0.5 mg prn at bedtime RLS Insomnia Failed treatment with ropinirole previously. Hgb 11.2 on admission. - iron studies showing low iron -consider iron infusion Diet: Combination Diet Regular Diet Adult; Moderate Consistent Carb (60 g CHO per Meal) Diet; 2 gm NA Diet DVT Prophylaxis: elliquis [place] Catheter: Not present Fluids: PO Lines: None Cardiac Monitoring: ACTIVE order. Indication: Tachyarrhythmias, acute (48 hours) Code Status: Full Code Clinically Significant Risk Factors Present on Admission # Drug Induced Coagulation Defect: home medication list includes an anticoagulant medication # Hypertension: Noted on problem list # Anemia: based on hgb <11 # Obesity: Estimated body mass index is 36.76 kg/m?? as calculated from the following: Height as of this encounter: 1.575 m (5' 2). Weight as of this encounter: 91.2 kg (201 lb). # Financial/Environmental Concerns: none # Asthma: noted on problem list Disposition Plan Expected Discharge Date: 11/15/2023 Destination: assisted living The patient's care was discussed with the Attending Physician, Dr. Sow . Live Ramirez MD Hospitalist Service [facility] Securely message with [employer] (more info) Text page via [facility] Paging/Directory Interval History Admitted overnight for Afib RVR. No CP or SOB at rest. Does have exertional dyspnea. S/p dilt 10 mgx 3. Rates 140s this morning on room air. Requesting opioids and xanax. She is decisional. Physical Exam Vital Signs: Temp: 97.6 ??F (36.4 ??C) Temp src: Oral BP: 137/87 Pulse: 94 Resp: 22 SpO2: 96 % O2 Device: None (Room air) Weight: 201 lbs 0 oz Constitutional: awake, alert, cooperative, no apparent distress, and appears stated age ENT: normocephalic, without obvious abnormality Respiratory: No increased work of breathing, good air exchange, clear to auscultation bilaterally, no crackles or wheezing Cardiovascular: irregularly irregular rhythm, no murmur noted, bilateral edema, and carotids without bruits bilaterally GI: Normal bowel sounds, soft, non-distended, non-tender, no masses palpated, no hepatosplenomegally Skin: normal skin color, texture, turgor Neurologic: Awake, alert, oriented to name, place and time. Cranial nerves II- XII are grossly intact. Neuropsychiatric: Affect: pleasant Medical Decision Making Please see A&P for additional details of medical decision making. Data Imaging results reviewed over the past 24 hrs: Recent Results (from the past 24 hour(s)) CT Chest Pulmonary Embolism w Contrast Narrative EXAM: CT CHEST PULMONARY EMBOLISM W CONTRAST LOCATION: [facility] DATE: 11/13/2023 INDICATION: chest pain, a fib RVR, low INR COMPARISON: 07/11/2021 TECHNIQUE: CT chest pulmonary angiogram during arterial phase injection of IV contrast. Multiplanarreformats and MIP reconstructions were performed. Dose reduction techniques were used. CONTRAST: ISOVUE 370 75mL FINDINGS: ANGIOGRAM CHEST: The main pulmonary artery measures 3.3 cm which is slightly prominent size (normalis 3.2 cm or less, these changes can [...] Moderate scattered degenerative changes in the spine. Impression IMPRESSION: 1. No PE, dissection, or aneurysm. 2. Slight prominence of central pulmonary artery which can be associated with pulmonary arterial hypertension. 3. Mild cardiomegaly with no evidence for active CHF. 4. Moderate coronary artery calcification. Echocardiogram Complete Result Value LVEF 50-55% (borderline) [facility] [id number]^KAI^[place] [address] Name: BRANDEE CORDOVA : 1960 Study Date: 11/14/2023 12:15 PM Age: 63 yrs Gender: Female Patient Location: [facility] Reason For Study: Atrial Fibrillation Ordering Physician: LISANDRA QUINN Performed By: DAYO BSA: 1.9 m2 Height: 62 in Weight: 201 lb HR: 97 BP: 102/67 mmHg Procedure Complete Portable Echo Adult. Definity ([facility] #[id number]) given intravenously. No hemodynamically significant valvular abnormalities [...] approved by: Trupti Mao 11/14/2023 03:06 PM Most Recent 3 CBC's: Recent Labs Lab Test 11/14/23 0836 11/13/23 1448 05/22/23 0039 WBC 6.3 8.4 5.4 HGB 9.9* 11.2* 8.0* MCV 75* 74* 77* PLT 184 249 142* Most Recent 3 BMP's: Recent Labs Lab Test 11/14/23 0548 11/13/23 1448 05/22/23 0039 NA 136 136 142 POTASSIUM 4.4 4.0 3.7 CHLORIDE 103 99 106 CO2 19* 20* 23 BUN 16.9 19.1 10.3 CR 0.58 0.69 0.50* ANIONGAP 14 17* 13 EMI 9.0 9.1 8.2* GLC 135* 259* 137* Most Recent 3 INR's: Recent Labs Lab Test 11/14/23 0548 11/13/23 2113 11/13/23 1448 INR 1.52* 1.60* 1.55* Associated attestation - Jessica Sow MD - 11/15/2023 7:59 PM CDT Physician Attestation I personally examined and evaluated this patient. I discussed the patient with the resident/fellow and care team, and agree with the assessment and plan of care as documented in the note. Mc findings: Patient's heart rate is improving, but still incompletely controlled. Patient's warfarin will be replaced with eliquis per cardiology recommendations. Jessica Sow MD Date of Service (when I saw the patient): 11/14/23 * Beatriz Hebert RN - 11/14/2023 1:57 PM CDT Transferring to room 330. Report given to RAQUEL Rizvi. documented in this encounter H&P Notes * Sosa Pablo DO - 11/13/2023 6:19 PM CDT [facility] History and Physical - Hospitalist Service Date of Admission: 11/13/2023 Assessment & Plan Brandee Cordova is a 63 year old female admitted on 11/13/2023. She has a history of persistent atrial fibrillation (on warfarin), tachycardia mediated cardiomyopathy, HFrEF (28%) hypertension, hyperlipidemia, type 2 diabetes, lacunar CVA 2017, asthma, bipolar disorder, ADHD, anxiety and depression, nicotine use, morbid obesity status post gastric bypass 2002, polysubstance abuse (alcohol, methamphetamines, cocaine) and cognitive impairment and is admitted for a fib with RVR. Persistent Atrial Fibrillation with RVR HFrEF (40% EF in 12/2022) Last known to be in SR in 2019, likely 2/2 tachycardia mediated cardiomyopathy. Failed rate controlwith sotalol and amiodarone previously, currently on metoprolol 50 mg BID and digoxin 125 mcg. Responded to 10 mg diltiazem in ED. EKG showed A fib without ST changes, normal troponin, elevated BNP, hgb 11.2, TSH wnl. Most recent echo in 12/2022 with EF 40%. Appears euvolemic on admission. - Admit to inpatient - Cardiology consult - Cardiac tele - s/p diltiazem 10 mg in ED x2 - Hold DRESS OPERATOR metoprolol 50 mg BID - Continue DRESS OPERATOR digoxin 125 mcg Subtherapeutic INR INR 1.55 on admission, goal of 2-3. Recent dose changes on 11/05 and 11/10 per chart review of anticoag clinic notes. Patient states she has not missed any doses of warfarin recently but does endorse some dietary changes with less green vegetables as of late. - Pharmacy consult to manage warfarin - Would require CRIS prior to DCCV T2DM Most recent A1c of 6.9% in 07/2023. Reports she is on monotherapy with metformin though it appears to have been recently discontinued per med rec. BG elevated to 259 on admission. - Diabetic diet - AM BMP for BG Polysubstance Use Disorder (alcohol, methamphetamines, cocaine) Nicotine Use Disorder Patient states her use disorders are in full remission. Last EtOH consumption was >1 week ago. Last methamphetamine and/or cocaine use was 15-20 yrs prior. No signs of intoxication or withdrawal on exam. - Monitor - Nicotine replacement therapy with lozenges - Thiamine IM replacement - Add on thiamine lab Chronic pain - Pain team consult - continue DRESS OPERATOR analgesics after med rec - s/p dilaudid x1 in ED RLS Insomnia Failed treatment with ropinirole previously. Hgb 11.2 on admission. - Clonazepam 1 mg at bedtime - hold DRESS OPERATOR Ambien - Add on iron studies Diet: Combination Diet Regular Diet Adult; Moderate Consistent Carb (60 g CHO per Meal) Diet; 2 gm NA Diet DVT Prophylaxis: Warfarin [place] Catheter: Not present Fluids: po Lines: None Cardiac Monitoring: ACTIVE order. Indication: Tachyarrhythmias, acute (48 hours) Code Status: Full Code Clinically Significant Risk Factors Present on Admission # Drug Induced Coagulation Defect: home medication list includes an anticoagulant medication # Hypertension: Noted on problem list # Obesity: Estimated body mass index is 36.76 kg/m?? as calculated from the following: Height as of this encounter: 1.575 m (5' 2). Weight as of this encounter: 91.2 kg (201 lb). # Asthma: noted on problem list Disposition Plan Expected Discharge Date: 11/15/2023 The patient's care was discussed with the Attending Physician, Dr. Sow, Bedside Nurse, and Patient. Sosa Pablo DO PGY2 Hospitalist Service [facility] Securely message with [employer] (more info) Text page via [facility] Paging/Directory Chief Complaint A fib with RVR, shortness of breath History is obtained from the patient History of Present Illness Brandee Cordova is a 63 year old female who has a history of persistent atrial fibrillation (onwarfarin), tachycardia mediated cardiomyopathy, HFrEF (40%) hypertension, hyperlipidemia, type 2 diabetes, lacunar CVA 2017, asthma, bipolar disorder, ADHD, anxiety and depression, nicotine use, morbid obesity status post gastric bypass 2002, polysubstance abuse (alcohol, methamphetamines, cocaine)and cognitive impairment and is admitted for a fib with RVR. 3 week history of fatigue, progressive shortness of breath, and intermittent chest discomfort. Shortness of breath and chest discomfort occur at rest as well as with exertion. No palpitations. Does not check HR at home. Went to her cardiology appointment earlier today and was found to be in RVR, sent to ED. In ED, EKG continued to show A fib with RVR. Normal troponin, elevated BNP. Hgb 11.2, TSH wnl. Responded well to diltiazem 10 mg. Feels subjective improvement of SOB (SpO2 >90% on room air throughout monitoring today). She is coming from an assisted living center. Past Medical History Past Medical History: Diagnosis Date Alcohol abuse Anemia transfusion needed s/p uterine fibroids and gastric bypass Anxiety Arthritis OA Asthma Bipolar 1 disorder CHF (congestive heart failure) Chronic back pain Depression Diabetes mellitus Gastroesophageal reflux disease History of cocaine 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/2010 Per [facility] medical record Hypertension Obesity Paroxysmal atrial fibrillation 2018 Peptic ulcer disease PTSD (post-traumatic stress disorder) Rosacea Stroke 2016 bleed on brain, denies residual Past Surgical History Past Surgical History: Procedure Laterality Date Abdominal hernia repair with mesh ANKLE SURGERY ARTHROPLASTY HIP Left ARTHROPLASTY KNEE Right 07/09/2021 Procedure: RIGHT TOTAL KNEE ARTHROPLASTY; Surgeon: Jamin Siegel MD; Location: [facility] OR ARTHROPLASTY SHOULDER Left BAND HEMORRHOIDECTOMY BLADDER [...] HIP ARTHROPLASTY; Surgeon: Jamin Siegel MD; Location: [facility]; Service: Orthopedics Prior to Admission Medications Prior to Admission Medications Prescriptions Last Dose Informant Patient Reported? Taking? BANOPHEN 25 MG capsule Yes No Sig: Take 25 mg by mouth every 4 hours as needed for sleep DIPHENHYDRAMINE HCL PO Yes No Sig: Take 25 mg by mouth every 4 hours as needed MARY-LANTA 200-200-20 MG/5ML SUSP suspension Yes No Sig: Take 10 mLs by mouth 4 times daily as needed for indigestion Incontinence Supply Disposable (DEPEND FITTED BRIEFS SM/MED) MISC Yes No Sig: For home use. Will use 2 per day. Size large. MILK OF MAGNESIA 400 MG/5ML PO suspension Yes No Sig: Take 30 mLs by mouth daily as needed for constipation SM GAS RELIEF EXTRA STRENGTH 125 MG PO CAPS Yes No Sig: Take 1 capsule by mouth 4 times daily SUMAtriptan (IMITREX) 50 MG tablet Yes No Sig: Take 50 mg by mouth at onset of headache for migraine May repeat x1 in 2 hours if needed. Sharps Container (CQUMQE-T-RXRMS LOCKING BRACKET) MIS Yes No Sig: Length: calf Strength: 16-20 mmHg Circumference in cm: For calf: Ankle 12, Calf 18.5 , Ankleto calf length 12 . Vaginal Lubricant (REPLENS) GEL Yes No Sig: Place vaginally every 72 hours as needed (dryness) albuterol (VENTOLIN HFA) 108 (90 Base) MCG/ACT IN inhaler Yes No Sig: Inhale 2 puffs into the lungs every 6 hours as needed artificial saliva (BIOTENE DRY MOUTHWASH) LIQD liquid Yes No Sig: Swish and spit 15 mLs in mouth every 6 hours as needed for dry mouth atorvastatin 40 MG PO tablet Yes No Sig: Take 40 mg by mouth At Bedtime azelastine 0.1 % NA nasal spray Yes No Sig: Inwood 1 spray into both nostrils 2 times daily cyanocobalamin 1000 MCG/ML IJ injection Yes No Sig: Inject 1 mL into the muscle every 30 days Patient not taking: Reported on 06/16/2023 diclofenac (VOLTAREN) 1 % topical gel Yes No Sig: Apply 2 g topically 4 times daily Apply to affected area. 6AM, 12PM, 6PM, 12AM fluticasone (FLONASE) 50 MCG/ACT nasal spray Yes No Sig: Inwood 1 spray into both nostrils 2 times daily fluticasone-salmeterol (ADVAIR) 250-50 MCG/DOSE inhaler Yes No Sig: Inhale 1 puff into the lungs 2 times daily hydrocortisone (CORTAID) 1 % external cream Yes No Sig: Apply topically 4 times daily as needed for rash ipratropium - albuterol 0.5 mg/2.5 mg/3 mL (DUONEB) 0.5-2.5 (3) MG/3ML neb solution Yes No Sig: Take 1 vial by nebulization 2 times daily loratadine (CLARITIN) 10 MG tablet Yes No Sig: Take 10 mg by mouth daily metFORMIN (GLUCOPHAGE) 500 MG tablet Yes No Sig: Take 500 mg by mouth 2 times daily (with meals) metoprolol tartrate (LOPRESSOR) 50 MG tablet Yes No Sig: Take 50 mg by mouth 2 times daily nystatin [id number] UNIT/GM EX external powder Yes No Sig: Apply topically 2 times daily as needed ondansetron (ZOFRAN-ODT) 4 MG ODT tab Yes No Sig: Take 4 mg by mouth every 8 hours as needed for nausea pantoprazole (PROTONIX) 40 MG EC tablet Yes No Sig: Take 40 mg by mouth daily polyethylene glycol (MIRALAX) 17 g packet Yes No Sig: Take 1 packet by mouth 2 times daily pregabalin (LYRICA) 100 MG capsule Yes No Sig: Take 100 mg by mouth 3 times daily senna-docusate (SENOKOT-S/PERICOLACE) 8.6-50 MG tablet Yes No Sig: Take 3 tablets by mouth 2 times daily sertraline (ZOLOFT) 100 MG tablet Yes No Sig: Take 200 mg by mouth daily torsemide 20 MG PO tablet Yes No Sig: Take 50 mg by mouth daily warfarin ANTICOAGULANT (COUMADIN) 2 MG tablet Yes No Sig: Take 3-4 mg by mouth See Admin Instructions Take 3 mg on Sundays. Take 4 mg all other days of the week. zolpidem (AMBIEN) 5 MG tablet Yes No Sig: Take 5 mg by mouth At Bedtime Facility-Administered Medications: None Social History I have reviewed this patient's social history and updated it with pertinent information if needed. Social History Tobacco Use Smoking status: Every Day Current packs/day: 0.00 Types: Hookah, Cigarettes Last attempt to quit: 07/02/2020 Years since quittin.3 Smokeless tobacco: Never Tobacco comments: 3 cigarettes a day Vaping Use Vaping status: Never Used Substance Use Topics Alcohol use: Not Currently Comment: former, maybe once at holidays Drug use: Not Currently Comment: marijuana former Family History I have reviewed this patient's family history and updated it with pertinent information if needed. Family History Problem Relation Age of Onset Atrial fibrillation Mother Diabetes Father Cerebrovascular Disease Father Diabetes Brother Allergies Allergies Allergen Reactions Gramineae Pollens Rash Trimethoprim Swelling and Rash Erythromycin Rash Penicillins Rash Sulfa Antibiotics Rash Latex Added based on information entered during log entry, please review and add reactions, type, and severity as needed Mold Nsaids GI Disturbance Short Ragweed Pollen Ext Trees Adhesive Tape Unknown and Rash Aspirin Other reaction(s): Other (see comments) Due to gastric bypass Cephalosporins Rash Ciprofloxacin Rash Liquid Adhesive Rash Patient allergic to pressure tape or foam tape. Tolmetin Rash Pt had bariatric surgery, should not ever take oral NSAIDS due to risk of gastric ulcers. Tramadol Rash Troleandomycin Rash Patient unsure if she also had angioedema from these medications. Physical Exam Vital Signs: Temp: 97.5 ??F (36.4 ??C) Temp src: Temporal BP: 134/72 Pulse: 119 Resp: 29 SpO2: 97 %O2 Device: None (Room air) Weight: 201 lbs 0 oz Constitutional: awake, alert, cooperative, no apparent distress, and appears stated age ENT: normocephalic, without obvious abnormality Respiratory: No increased work of breathing, good air exchange, clear to auscultation bilaterally, no crackles or wheezing Cardiovascular: irregularly irregular rhythm, no murmur noted, bilateral edema, and carotids without bruits bilaterally GI: Normal bowel sounds, soft, non-distended, non-tender, no masses palpated, no hepatosplenomegally Skin: normal skin color, texture, turgor Neurologic: Awake, alert, oriented to name, place and time. Cranial nerves II- XII are grossly intact. Neuropsychiatric: Affect: pleasant Medical Decision Making Please see A&P for additional details of medical decision making. Data PAST 24 HR DATA REVIEWED I have personally reviewed the following data over the past 24 hrs: 8.4 \ 11.2 (L) / 249 136 99 19.1 / 259 (H) 4.0 20 (L) 0.69 \ ALT: 53 (H) AST: 48 (H) AP: 138 TBILI: 0.2 ALB: 4.1 TOT PROTEIN: 7.0 LIPASE: 63 (H) Trop: 13 BNP: 1,082 (H) TSH: 1.68 T4: N/A A1C: N/A Procal: 0.09 CRP: <3.00 Lactic Acid: 1.8 INR: 1.60 (H) PTT: N/A D-dimer: N/A Fibrinogen: N/A Imaging results reviewed over the past 24 hrs: Recent Results (from the past 24 hour(s)) CT Chest Pulmonary Embolism w Contrast Narrative EXAM: CT CHEST PULMONARY EMBOLISM W CONTRAST LOCATION: [facility] DATE: 11/13/2023 INDICATION: chest pain, a fib RVR, low INR COMPARISON: 07/11/2021 TECHNIQUE: CT chest pulmonary angiogram during arterial phase injection of IV contrast. Multiplanarreformats and MIP reconstructions were performed. Dose reduction techniques were used. CONTRAST: ISOVUE 370 75mL FINDINGS: ANGIOGRAM CHEST: The main pulmonary artery measures 3.3 cm which is slightly prominent size (normalis 3.2 cm or less, these changes can [...] Moderate scattered degenerative changes in the spine. Impression IMPRESSION: 1. No PE, dissection, or aneurysm. 2. Slight prominence of central pulmonary artery which can be associated with pulmonary arterial hypertension. 3. Mild cardiomegaly with no evidence for active CHF. 4. Moderate coronary artery calcification. Associated attestation - Jessica Sow MD - 11/15/2023 7:52 PM CDT Physician Attestation I saw this patient with the resident and agree with the resident/fellow's findings and plan of careas documented in the note. Mc findings: Patient with afib with RVR and non-therapeutic INR. Doses of diltiazem have been adequate to, at least temporarily, reduce and control heart rate. Will admit for rate control. Will attempt to control pain and restless legs with home medication regimen only. Given patient's metabolic acidosis, history of gastric bypass, and history of alcohol use, will treat the patient for thiamine deficiency empirically. Jessica Sow MD Date of Service (when I saw the patient): 11/13/2023 documented in this encounter Consult Notes * Anayeli Alcazar APRN CONGRESSIONAL DISTRICT AIDE - 11/16/2023 10:28 AM CDTAssociated Order(s): PAIN MANAGEMENT ADULT IP CONSULT Will not see today: PAIN MANAGEMENT SERVICE CHART CHECK This patient's chart has been reviewed by the Pain Service. Plans for discharge. Pain team will notconsult. Discussed with Attending. If you would like the patient to be seen, please contact the service and ask to have the patient seen or re-consult Thank you! Anayeli Alcazar APRN, ASSISTANT FINANCE DIRECTOR-C Acute Care Pain Management Program [facility] Thursday-Thursday 8a-4p Page via [employer] [place] or [employer] * Lisandra Quinn MD - 11/14/2023 11:58 AM CDTAssociated Order(s): CARDIOLOGY IP CONSULT Images from the original note were not included. HEART CARE CONSULTATON NOTE Assessment/Recommendations Assessment: 1. Atrial fibrillation: Persistent atrial fibrillation with history of cardioversion in the past had been maintained on amiodarone and sotalol. Taken off antiarrhythmic therapy and lost to follow-up for a few years. And persistent atrial fibrillation for unknown duration and when seen in atrial fibrillation clinic rate control strategy was initially recommended. Admitted to the hospital due to concerns for symptoms over the preceding few weeks and atrial fibrillation with rapid ventricular response 2. History of polysubstance abuse alcohol, cocaine and methamphetamines repeatedly asking for more Dilaudid 3. Bipolar, ADHD, anxiety/depression 4. History of CVA 2018 5. Cognitive dysfunction 6. Diabetes mellitus type 2 7. History of tachycardia mediated cardiomyopathy 8. Acute heart failure with preserved ejection fraction: Plan: 1. Echocardiogram pending 2. Would recommend considering stopping Coumadin and maintain on Eliquis 5 mg twice daily due to her difficulty maintaining therapeutic INRs 3. Increase metoprolol and start digoxin for improved rate control 4. Hold lisinopril to allow for improved rate control 5. Start IV Lasix Clinically Significant Risk Factors Present on Admission # Drug Induced Coagulation Defect: home medication list includes an anticoagulant medication # Hypertension: Noted on problem list # Anemia: based on hgb <11 # Obesity: Estimated body mass index is 36.76 kg/m?? as calculated from the following: Height as of this encounter: 1.575 m (5' 2). Weight as of this encounter: 91.2 kg (201 lb). # Asthma: noted on problem list History of Present Illness/Subjective HPI: Brandee Cordova is a 63 year old female with history of persistent atrial fibrillation with history of tachycardia mediated cardiomyopathy with history of cardioversion 2018 and 2020 lost tofollow-up for a few years, bipolar disorder, ADHD, anxiety/depression, polysubstance abuse (alcohol, methamphetamine, cocaine), cognitive dysfunction, lacunar CVA 2018, diabetes mellitus type 2 who was admitted to the hospital from cardiology clinic yesterday. They were attempting a rate control strategy. She was complaining of symptoms that she felt began when she was transitioned off of Dilaudid started on Suboxone. She noted increasing fatigue. She has chronic dyspnea on exertion that she feels has worsened over the past few weeks. Denies any chest pain currently. Troponin negative at 13, BNP slightly elevated at 1082 Physical Examination Review of Systems VITALS: BP 102/67 Pulse (!) 130 Temp 97.6 ??F (36.4 ??C) (Oral) Resp 28 Ht 1.575 m (5' 2) Wt 91.2 kg (201 lb) SpO2 97% BMI 36.76 kg/m?? BMI: Body mass index is 36.76 kg/m??. Wt Readings from Last 3 Encounters: 11/13/23 91.2 kg (201 lb) 11/13/23 91.2 kg (201 lb) 08/27/23 94.3 kg (208 lb) Intake/Output Summary (Last 24 hours) at 11/14/2023 1158 Last data filed at 11/14/2023 0900 Gross per 24 hour Intake 890 ml Output -- Net 890 ml General Appearance: no distress, normal body habitus ENT/Mouth: membranes moist, no oral lesions or bleeding gums. EYES: no scleral icterus, normal conjunctivae Neck: no carotid bruits or thyromegaly Chest/Lungs: lungs are clear to auscultation Cardiovascular: irregular. Normal first and second heart sounds with no murmur no edema bilaterally Abdomen: bowel sounds are present Extremities: no cyanosis or clubbing Skin: no xanthelasma, warm. Neurologic: normal fence supervisor bilateral, no tremors Psychiatric: alert and oriented x3, calm Review Of Systems Skin: negative Eyes: negative Ears/Nose/Throat: negative Respiratory: No shortness of breath, dyspnea on exertion, cough, or hemoptysis Cardiovascular: negative Gastrointestinal: negative Genitourinary: negative Musculoskeletal: negative Neurologic: negative Psychiatric: negative Hematologic/Lymphatic/Immunologic: negative Endocrine: negative Lab Results Chemistry/lipid CBC Cardiac Enzymes/BNP/TSH/INR No results for input(s): CHOL, HDL, LDL, TRIG, CHOLHDLRATIO in the last 01454 hours. No results for input(s): LDL in the last 91473 hours. Recent Labs Lab Test 11/14/23 0548 NA 136 POTASSIUM 4.4 CHLORIDE 103 CO2 19* GLC 135* BUN 16.9 CR 0.58 GFRESTIMATED >90 EMI 9.0 Recent Labs Lab Test 11/14/23 0548 11/13/23 1448 05/22/23 0039 CR 0.58 0.69 0.50* Recent Labs Lab Test 07/05/21 1009 04/08/21 1148 11/14/20 0551 A1C 6.8* 6.8* 6.3* Recent Labs Lab Test 11/14/23 0836 WBC 6.3 HGB 9.9* HCT 33.6* MCV 75* PLT 184 Recent Labs Lab Test 11/14/23 0836 11/13/23 1448 05/22/23 0039 HGB 9.9* 11.2* 8.0* Recent Labs Lab Test 11/09/20 0125 TROPONINI <0.01 Recent Labs Lab Test 11/13/23 1448 07/11/21 0525 11/10/20 0451 BNP -- 77 341* NTBNPI 1,082* -- -- Recent Labs Lab Test 11/13/23 1448 TSH 1.68 Recent Labs Lab Test 11/14/23 0548 11/13/23 2113 11/13/23 1448 INR 1.52* 1.60* 1.55* Medical History Surgical History Family History Social History Past Medical History: Diagnosis Date Alcohol abuse Anemia transfusion needed s/p uterine fibroids and gastric bypass Anxiety Arthritis OA Asthma Bipolar 1 disorder CHF (congestive heart failure) Chronic back pain Depression Diabetes mellitus Gastroesophageal reflux disease History of cocaine 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/2010 Per [facility] medical record Hypertension Obesity Paroxysmal atrial fibrillation 2018 Peptic ulcer disease PTSD (post-traumatic stress disorder) Rosacea Stroke 2016 bleed on brain, denies residual Past Surgical History: Procedure Laterality Date Abdominal hernia repair with mesh ANKLE SURGERY ARTHROPLASTY HIP Left ARTHROPLASTY KNEE Right 07/09/2021 Procedure: RIGHT TOTAL KNEE ARTHROPLASTY; Surgeon: Jamin Siegel MD; Location: [facility] Main OR ARTHROPLASTY SHOULDER Left BAND HEMORRHOIDECTOMY [...] HIP ARTHROPLASTY; Surgeon: Jamin Siegel MD; Location: [facility]; Service: Orthopedics Family History Problem Relation Age of Onset Atrial fibrillation Mother Diabetes Father Cerebrovascular Disease Father Diabetes Brother Social History Socioeconomic History Marital status: Spouse name: Not on file Number of children: Not on file Years of education: Not on file Highest education level: Not on file Occupational History Not on file Tobacco Use Smoking status: Every Day Current packs/day: 0.00 Types: Hookah, Cigarettes Last attempt to quit: 07/02/2020 Years since quittin.3 Smokeless tobacco: Never Tobacco comments: 3 cigarettes a day Vaping Use Vaping status: Never Used Substance and Sexual Activity Alcohol use: Not Currently Comment: former, maybe once at holidays Drug use: Not Currently Comment: marijuana former Sexual activity: Not on file Other Topics Concern Parent/sibling w/ CABG, CO or angioplasty before 65F 55M? Not Asked Social History Narrative Not on file Social Determinants of Health Financial Resource Strain: Medium Risk (07/05/2021) Overall Financial Resource Strain (CARDIA) Difficulty of Paying Living Expenses: Somewhat hard Food Insecurity: No Food Insecurity (07/05/2021) Hunger Vital Sign Worried About Running Out of Food in the Last Year: Never true Ran Out of Food in the Last Year: Never true Transportation Needs: No Transportation Needs (07/05/2021) PRAPARE - Transportation Lack of Transportation (Medical): No Lack of Transportation (Non-Medical): No Physical Activity: Inactive (07/05/2021) Exercise Vital Sign Days of Exercise per Week: 0 days Minutes of Exercise per Session: 10 min Stress: No Stress Concern Present (07/05/2021) [employer] [place] [employer] - Occupational Stress Questionnaire Feeling of Stress : Only a little Social Connections: Unknown (08/31/2023) [facility] Frequency of Communication with Friends and Family: Not on file Interpersonal Safety: Not on file Housing Stability: Low Risk (07/05/2021) Housing Stability Vital Sign Unable to Pay for Housing in the Last Year: No Number of Places Lived in the Last Year: 1 Unstable Housing in the Last Year: No Medications Allergies Current Outpatient Medications Medication Sig Dispense Refill albuterol (VENTOLIN HFA) 108 (90 Base) MCG/ACT IN inhaler Inhale 2 puffs into the lungs every 6 hours as needed amoxicillin (AMOXIL) 500 MG capsule Take 2,000 mg by mouth See Admin Instructions Take 2,000 mg 1 hour prior to dental appointment as needed. atorvastatin 40 MG PO tablet Take 40 mg by mouth At Bedtime azelastine 0.1 % NA nasal spray Inwood 1 spray into both nostrils 2 times daily buprenorphine HCl-naloxone HCl (SUBOXONE) 8-[address] 1 Film under the tongue every morning busPIRone (BUSPAR) 15 MG tablet Take 15 mg by mouth every 6 hours as needed (anxiety) clobetasol propionate (TEMOVATE) 0.05 % external cream Apply topically 2 times daily as needed (dryfeet) Apply to affected areas on feet twice daily as needed. cloNIDine (CATAPRES) 0.1 MG tablet Take 0.1 mg by mouth every 6 hours as needed (for withdrawal) Cyanocobalamin 1000 MCG CAPS Take 1,000 mcg by mouth every morning diazepam (VALIUM) 5 MG tablet Take 5 mg by mouth See Admin Instructions Take 30 minutes prior to procedure digoxin (LANOXIN) 125 MCG tablet Take 125 mcg by mouth every morning doxycycline hyclate (VIBRAMYCIN) 100 MG capsule Take 100 mg by mouth 2 times daily fluticasone (FLONASE) 50 MCG/ACT nasal spray Inwood 1 spray into both nostrils 2 times daily fluticasone-salmeterol (ADVAIR) 250-50 MCG/DOSE inhaler Inhale 1 puff into the lungs 2 times daily glycerin (ADULT) [address] 1 [...] 1 vial by nebulization 2 times daily ketoconazole (NIZORAL) 2 % external shampoo Apply [...] Take 10 mg by mouth every morning methocarbamol (ROBAXIN) 500 MG tablet Take 500 mg by mouth 2 times daily as needed for muscle spasms metoprolol tartrate (LOPRESSOR) 50 MG tablet Take 50 mg by mouth 2 times daily metroNIDAZOLE (METROCREAM) 0.75 % external cream Apply topically 2 times daily Apply to affected areas on face. Apply a thin layer 1-2 times daily. mupirocin (BACTROBAN) 2 % external ointment Apply topically daily Apply a thin layer to the open sores on the body daily. naloxone (NARCAN) 4 MG/0.1ML nasal spray Inwood 4 mg into one nostril alternating nostrils as neededfor opioid reversal every 2-3 minutes until assistance arrives nystatin [id number] UNIT/GM EX external powder Apply topically 2 times daily as needed for dry skin omeprazole (PRILOSEC) [address] capsule Take [...] Take 200 mg by mouth every morning GAS RELIEF EXTRA STRENGTH 125 MG PO CAPS Take 1 capsule by mouth 4 times daily as needed SUMAtriptan (IMITREX) 50 MG tablet Take 50 mg by mouth at onset of headache for migraine May repeatx1 in 2 hours if needed. tacrolimus (PROTOPIC) 0.1 % external ointment Apply topically 2 times daily Apply a thin layer to affected areas on body 1-2 times daily. torsemide 20 MG PO tablet Take 20 mg by mouth daily triamcinolone (KENALOG) 0.1 % external cream Apply topically 2 times daily Apply topically to affected areas on arms twice daily. warfarin ANTICOAGULANT (COUMADIN) 3 MG tablet Take 1.5-3 mg by mouth See Admin Instructions Take 1.5 mg (1/2 tablet) on Thursday, Thursday, Thursday, and Thursday. Take 3 mg all other days of the week. zolpidem (AMBIEN) 5 MG tablet Take 5 mg by mouth At Bedtime Incontinence Supply Disposable (DEPEND FITTED BRIEFS SM/MED) MISC For home use. Will use 2 per day.Size large. Sharps Container (WYTDHV-F-MALUM LOCKING BRACKET) MISC Length: calf Strength: 16-20 mmHg Circumference in cm: For calf: Ankle 12, Calf 18.5 , Ankle to calf length 12 . Allergies Allergen Reactions Gramineae Pollens Rash Trimethoprim Swelling and Rash Erythromycin Rash Penicillins Rash Sulfa Antibiotics Rash Latex Added based on information entered during log entry, please review and add reactions, type, and severity as needed Mold Nsaids GI Disturbance Short Ragweed Pollen Ext Trees Adhesive Tape Unknown and Rash Aspirin Other reaction(s): Other (see comments) Due to gastric bypass Cephalosporins Rash Ciprofloxacin Rash Liquid Adhesive Rash Patient allergic to pressure tape or foam tape. Tolmetin Rash Pt had bariatric surgery, should not ever take oral NSAIDS due to risk of gastric ulcers. Tramadol Rash Troleandomycin Rash Patient unsure if she also had angioedema from these medications. Lisandra Quinn MD * Shila Burnett RN - 11/14/2023 11:30 AM CDTAssociated Order(s): CARE MANAGEMENT / SOCIAL WORK IP CONSULT Care Management Initial Consult General Information Assessment completed with: Patient, Care Permastone Applicator, Patient and facility staff person Type of CM/SW Visit: Initial Assessment Primary Care Provider verified and updated as needed: Yes Readmission within the last 30 days: no previous admission in last 30 days Reason for Consult: discharge planning Advance Care Planning: Advance Care Planning Reviewed: no concerns identified [facility] Information Comments: [facility] Communication Assessment Patient's communication style: spoken language (Barbadian or Bilingual) Hearing Difficulty or Deaf: no Wear Glasses or Blind: yes Cognitive Cognitive/Neuro/Behavioral: .WDL except, mood/behavior Level of Consciousness: alert Arousal Level:opens eyes spontaneously Orientation: oriented x 4 Mood/Behavior: agitated, anxious Best Language: 0 - No aphasia Speech: clear, spontaneous, logical Living Environment: People in home: alone, facility resident Current living Arrangements: assisted living, apartment Name of Facility: [facility] Able to return to prior arrangements: yes Living Arrangement Comments: Lives at Assisted Living Family/Social Support: Care provided by: self, other (see comments) (Facility Staff) Provides care for: no one Marital Status: Children, Facility resident(s)/Staff Description of Support System: Supportive, Involved Support Assessment: Adequate family and caregiver support Current Resources: Patient receiving home care services: No Community Resources: Financial/Insurance Equipment currently used at home: crutches, walker, rolling, other (see comments) (Electric scooter) Supplies currently used at home: None Employment/Financial: Employment Status: disabled Financial Concerns: none Does the patient's insurance plan have a 3 day qualifying hospital stay waiver? No Lifestyle & Psychosocial Needs: Social Determinants of Health Food Insecurity: No Food Insecurity (07/05/2021) Hunger Vital Sign Worried About Running Out of Food in the Last Year: Never true Ran Out of Food in the Last Year: Never true Depression: At risk (08/31/2023) [facility] PHQ-2 PHQ-2 TOTAL SCORE: 4 Housing Stability: Low Risk (07/05/2021) Housing Stability Vital Sign Unable to Pay for Housing in the Last Year: No Number of Places Lived in the Last Year: 1 Unstable Housing in the Last Year: No Tobacco Use: High Risk (11/13/2023) Patient History Smoking Tobacco Use: Every Day Smokeless Tobacco Use: Never Passive Exposure: Not on file Financial Resource Strain: Medium Risk (07/05/2021) Overall Financial Resource Strain (CARDIA) Difficulty of Paying Living Expenses: Somewhat hard Alcohol Use: Not At Risk (12/19/2021) [facility] Alcohol Use How often do you have a drink containing alcohol?: 1 How many drinks containing alcohol do you have on a typical day when you are drinking?: 1 How often do you have five or more drinks on one occasion?: 0 Transportation Needs: No Transportation Needs (07/05/2021) PRAPARE - Transportation Lack of Transportation (Medical): No Lack of Transportation (Non-Medical): No Physical Activity: Inactive (07/05/2021) Exercise Vital Sign Days of Exercise per Week: 0 days Minutes of Exercise per Session: 10 min Interpersonal Safety: Not on file Stress: No Stress Concern Present (07/05/2021) [employer] [place] [employer] - Occupational Stress Questionnaire Feeling of Stress : Only a little Social Connections: Unknown (08/31/2023) [facility] Social Connections Frequency of Communication with Friends and Family: Not on file Health Literacy: Not on file Functional Status: Prior to admission patient needed assistance: Dependent ADLs:: Ambulation-walker, Bathing, Wheelchair-independent (Electric scooter) Dependent IADLs:: Cleaning, Cooking, Laundry, Shopping, Meal Preparation, Medication Management, Transportation Assesssment of Functional Status: Not at functional baseline Mental Health Status: Chemical Dependency Status: Values/Beliefs: Spiritual, Cultural Beliefs, Restorationist Practices, Values that affect care: Additional Information: ???63yoF with history of persistent a-fib (takes warfarin), CHF (EF 40%), gastric bypass, bipolar 1, anxiety presenting from cardiology clinic for evaluation of 3 weeks of fatigue, exertional shortness of breath, intermittent chest pressure. Recent mild low INR levels (<2); HR 130s in clinic so sent to the ED---recommended admission, echo prior to cardioversion attempt given recent low INR?? . CM spoke with Gloria, staff person [facility] ([phone]) where patient resides. Nurse electronics detail draftsperson through 11/15/23 is RAQUEL Curry ([phone]). If discharging on Thursday, call main phone number. Facility manages patient medications, assists with showers, provides meals, and houseke eping. Transportation is provided by patient's [facility] [employer] health insurance. Uses crutches (with patient), walker, and a motorized scooter for mobility. Patient states she has resided at [facility] for past five years and is actively looking for a different facility because she no longer likes living there. When asked if anyone is helping her with her search for new living place, patient states she's doing it on her own because she doesn't want otherpeople involved. Has Cardiology and Pain Management Consult orders pending. Will need medical transport on discharge. SHILA BURNETT RN/ALEXUS documented in this encounter ED Notes * Shelley Naranjo RN - 11/13/2023 11:05 PM CDT Report given to RAQUEL Christensen * Shelley Naranjo RN - 11/13/2023 10:39 PM CDT Patient requesting at home medications including Xanax and pain medications. Provider made aware. New orders obtained. * Jose Gallegos RN - 11/13/2023 8:28 PM CDT Report given to Shelley Eason RN * Louise Lucas RN - 11/13/2023 2:33 PM CDT Pt c/o a-fib that has been going on for the last 3 weeks. She has a crazy rhythm and was seen at [facility] for this. She reports having a doctor start her on suboxone about 3 weeks ago but she stopped it about 2 weeks ago. Pt reports chronic back pain that is normal but does have some right sided chest pain. * Mauro Soliman MD - 11/13/2023 2:26 PM CDT EMERGENCY DEPARTMENT ENCOUNTER NAME: Brandee Cordova AGE: [age] year old female DATE OF : 1960 EVALUATION DATE & TIME: 11/13/2023 2:36 PM PCP: [facility] ED PROVIDER: Mauro Soliman M.D. Chief Complaint Patient presents with Atrial Fib IMPRESSION 1. Atrial fibrillation with RVR (H) 2. Exertional dyspnea 3. Subtherapeutic international normalized ratio (INR) 4. Warfarin anticoagulation PLAN - admit to family medicine for further care; cards tele admit ED COURSE & MEDICAL DECISION MAKING ED Course as of 11/13/23 1835 ThuNov 13, 2023 1508 63yoF with history of persistent a-fib (takes warfarin), CHF (EF 40%), gastric bypass, bipolar1, anxiety presenting from cardiology clinic for evaluation of 3 weeks of fatigue, exertional shortness of breath, intermittent chest pressure. Recent mild low INR levels (<2); HR 130s in clinic so sent to the ED---recommended admission, echo prior to cardioversion attempt given recent low INR. Here sitting in ED bed, patient states she feels well. Reports exertional shortness of breath over the past 3 weeks; no cough, fevers, sweats, chills, leg pain/swelling. States she has been taking hermeds as prescribed at her assisted living. Notes chronic low back pain (prior surgery) and takes PO Dilaudid chronically for pain; no numbness, tingling, focal weakness. HR 130s during exam with BP 120s/80s and otherwise normal vitals. Calm on exam with clear lungs, normal work of breathing, no peripheral edema or calf tenderness, benign abdomen, normal neuro exam. EKG with a-fib with RVR; no ST changes. Will obtain blood tests while giving IV Cardizem for rate control. Will likely require admission per cardiology clinic recommendations. Patient comfortable with this plan; no further questions at this time. 1830 Rate temporarily improved to 80s after 10mg IV Cardizem; back to 110s so second dose given. Nohypotension. High-sensitivity troponin within normal limits; doubt ACS. BNP just [address] chest with no pulmonary edema; not hypoxia; doubt luis enrique CHF. CT chest with no PE, pneumonia, pneumothorax,other acute abnormality or explanatory pathology. Labs otherwise with no HUMPHREY, hemoglobin 11.2, no leukocytosis, normal TSH. Still quite dyspneic with exertion; not hypoxic though. Stable for floor admission. Will admit per prior plan. Consulted family medicine for admission; they agreed. Patient understood and agreed withthe plan; no further questions at the time of admission. This patient involved a high degree of complexity in medical decision making, as significant risks were present and assessed. Recent encounters & results in medical record reviewed by me. All workup (i.e. any EKG/labs/imaging as per charting below) reviewed and independently interpretedby me. See respective sections for details. See additional MDM below if interested. MEDICATIONS GIVEN IN THE EMERGENCY DEPARTMENT Medications HYDROmorphone (PF) (DILAUDID) injection 0.5 mg (has no administration in time range) magnesium sulfate 2 g in 50 mL sterile water intermittent infusion (0 g Intravenous Stopped ) diltiazem (CARDIZEM) injection 10 mg (10 mg Intravenous $Given 11/13/23 1553) HYDROmorphone (PF) (DILAUDID) injection 0.5 mg (0.5 mg Intravenous $Given 11/13/231557) iopamidol (ISOVUE-370) solution 75 mL (75 mLs Intravenous $Given 11/13/23 164) diltiazem (CARDIZEM) injection 10 mg (10 mg Intravenous $Given 11/13/23 182) HPI Brandee Cordova is a 63 year old female with history of persistent a-fib (takes warfarin), CHF (EF 40%), gastric bypass, bipolar 1, anxiety presenting from cardiology clinic for evaluation of 3 weeks of fatigue, exertional shortness of breath, intermittent chest pressure. Recent mild low INR levels (<2); HR 130s in clinic so sent to the ED---recommended admission, echo prior to cardioversion attempt given recent low INR. Here sitting in ED bed, patient states she feels well. Reports exertional shortness of breath over the past 3 weeks; no cough, fevers, sweats, chills, leg pain/swelling. States she has been taking her meds as prescribed at her assisted living. Notes chronic low back p ain (prior surgery) and takes PO Dilaudid chronically for pain; no numbness, tingling, focal weakness. MEDICAL HISTORY PAST MEDICAL HISTORY: Reviewed by me. Past Medical History: Diagnosis Date Alcohol abuse [...] Stroke 2016 bleed on brain, denies residual Patient Active Problem List Diagnosis Bariatric surgery [...] Total knee replacement status History of hysterectomy Exertional dyspnea Atrial fibrillation with RVR (H) Subtherapeutic international normalized ratio (INR) Warfarin anticoagulation PAST SURGICAL HISTORY: Reviewed by me. Past Surgical History: Procedure Laterality Date Abdominal hernia repair with mesh ANKLE SURGERY ARTHROPLASTY HIP Left ARTHROPLASTY KNEE Right 07/09/2021 Procedure: RIGHT TOTAL KNEE ARTHROPLASTY; Surgeon: Jamin Siegel MD; Location: [facility] Main OR ARTHROPLASTY SHOULDER Left BAND HEMORRHOIDECTOMY [...] HIP ARTHROPLASTY; Surgeon: Jamin Siegel MD; Location: [facility]; Service: Orthopedics CURRENT MEDICATIONS: Reviewed by me. Current Facility-Administered Medications: HYDROmorphone (PF) (DILAUDID) injection 0.5 mg, 0.5 mg, Intravenous, Once, Mauro Soliman MD Current Outpatient Medications: albuterol (VENTOLIN HFA) 108 (90 Base) MCG/ACT IN inhaler, Inhale 2 puffs into the lungs every 6 hours as needed , Disp: , Rfl: artificial saliva (BIOTENE DRY MOUTHWASH) LIQD liquid, Swish and spit 15 mLs in mouth every 6 hoursas needed for dry mouth , Disp: , Rfl: atorvastatin 40 MG PO tablet, Take 40 mg by mouth At Bedtime , Disp: , Rfl: azelastine 0.1 % NA nasal spray, [place] 1 spray into both nostrils 2 times daily , Disp: , Rfl: BANOPHEN 25 MG capsule, Take 25 mg by mouth every 4 hours as needed for sleep , Disp: , Rfl: cyanocobalamin 1000 MCG/ML IJ injection, Inject 1 mL into the muscle every 30 days (Patient not taking: Reported on 06/16/2023), Disp: , Rfl: diclofenac (VOLTAREN) 1 % topical gel, Apply 2 g topically 4 times daily Apply to affected area. 6AM, 12PM, 6PM, 12AM, Disp: , Rfl: DIPHENHYDRAMINE HCL PO, Take 25 mg by mouth every 4 hours as needed , Disp: , Rfl: fluticasone (FLONASE) 50 MCG/ACT nasal spray, [place] 1 spray into both nostrils 2 times daily , Disp: , Rfl: fluticasone-salmeterol (ADVAIR) 250-50 MCG/DOSE inhaler, Inhale 1 puff into the lungs 2 times daily, Disp: , Rfl: MARY-LANTA 200-200-20 MG/5ML SUSP suspension, Take 10 mLs by mouth 4 times daily as needed for indigestion, Disp: , Rfl: hydrocortisone (CORTAID) 1 % external cream, Apply topically 4 times daily as needed for rash , Disp: , Rfl: Incontinence Supply Disposable (DEPEND FITTED BRIEFS SM/MED) MISC, For home use. Will use 2 per day. Size large., Disp: , Rfl: ipratropium - albuterol 0.5 mg/2.5 mg/3 mL (DUONEB) 0.5-2.5 (3) MG/3ML neb solution, Take 1 vial bynebulization 2 times daily , Disp: , Rfl: loratadine (CLARITIN) 10 MG tablet, Take 10 mg by mouth daily, Disp: , Rfl: metFORMIN (GLUCOPHAGE) 500 MG tablet, Take 500 mg by mouth 2 times daily (with meals) , Disp: , Rfl: metoprolol tartrate (LOPRESSOR) 50 MG tablet, Take 50 mg by mouth 2 times daily, Disp: , Rfl: MILK OF MAGNESIA 400 MG/5ML PO suspension, Take 30 mLs by mouth daily as needed for constipation , Disp: , Rfl: nystatin 146524 UNIT/GM EX external powder, Apply topically 2 times daily as needed , Disp: , Rfl: ondansetron (ZOFRAN-ODT) 4 MG ODT tab, Take 4 mg by mouth every 8 hours as needed for nausea, Disp:, Rfl: pantoprazole (PROTONIX) 40 MG EC tablet, Take 40 mg by mouth daily , Disp: , Rfl: polyethylene glycol (MIRALAX) 17 g packet, Take 1 packet by mouth 2 times daily, Disp: , Rfl: pregabalin (LYRICA) 100 MG capsule, Take 100 mg by mouth 3 times daily, Disp: , Rfl: senna-docusate (SENOKOT-S/PERICOLACE) 8.6-50 MG tablet, Take 3 tablets by mouth 2 times daily, Disp: , Rfl: sertraline (ZOLOFT) 100 MG tablet, Take 200 mg by mouth daily , Disp: , Rfl: Sharps Container (USSQCA-Q-WRHSV LOCKING BRACKET) [facility], Length: calf Strength: 16-20 mmHg Circumference in cm: For calf: Ankle 12, Calf 18.5 , Ankle to calf length 12 ., Disp: , Rfl: SM GAS RELIEF EXTRA STRENGTH 125 MG PO CAPS, Take 1 capsule by mouth 4 times daily, Disp: , Rfl: SUMAtriptan (IMITREX) 50 MG tablet, Take 50 mg by mouth at onset of headache for migraine May repeat x1 in 2 hours if needed., Disp: , Rfl: torsemide 20 MG PO tablet, Take 50 mg by mouth daily , Disp: , Rfl: Vaginal Lubricant (REPLENS) GEL, Place vaginally every 72 hours as needed (dryness), Disp: , Rfl: warfarin ANTICOAGULANT (COUMADIN) 2 MG tablet, Take 3-4 mg by mouth See Admin Instructions Take 3 mg on Sundays. Take 4 mg all other days of the week., Disp: , Rfl: zolpidem (AMBIEN) 5 MG tablet, Take 5 mg by mouth At Bedtime, Disp: , Rfl: ALLERGIES: Reviewed by me. Allergies Allergen Reactions Gramineae Pollens Rash Trimethoprim Swelling and Rash Erythromycin Rash Penicillins Rash Sulfa Antibiotics Rash Latex Added based on information entered during log entry, please review and add reactions, type, and severity as needed Mold Nsaids GI Disturbance Short Ragweed Pollen Ext Trees Adhesive Tape Unknown and Rash Aspirin Other reaction(s): Other (see comments) Due to gastric bypass Cephalosporins Rash Ciprofloxacin Rash Liquid Adhesive Rash Patient allergic to pressure tape or foam tape. Tolmetin Rash Pt had bariatric surgery, should not ever take oral NSAIDS due to risk of gastric ulcers. Tramadol Rash Troleandomycin Rash Patient unsure if she also had angioedema from these medications. FAMILY HISTORY: Reviewed by me. Family History Problem Relation Age of Onset Atrial fibrillation Mother Diabetes Father Cerebrovascular Disease Father Diabetes Brother SOCIAL HISTORY: Reviewed by me. Social History Socioeconomic History Marital status: Spouse name: None Number of children: None Years of education: None Highest education level: None Tobacco Use Smoking status: Every Day Current packs/day: 0.00 Types: Hookah, Cigarettes Last attempt to quit: 07/02/2020 Years since quittin.3 Smokeless tobacco: Never Tobacco comments: 3 cigarettes a day Vaping Use Vaping status: Never Used Substance and Sexual Activity Alcohol use: Not Currently Comment: former, maybe once at holidays Drug use: Not Currently Comment: marijuana former Social Determinants of Health Financial Resource Strain: Medium Risk (07/05/2021) Overall Financial Resource Strain (CARDIA) Difficulty of Paying Living Expenses: Somewhat hard Food Insecurity: No Food Insecurity (07/05/2021) Hunger Vital Sign Worried About Running Out of Food in the Last Year: Never true Ran Out of Food in the Last Year: Never true Transportation Needs: No Transportation Needs (07/05/2021) PRAPARE - Transportation Lack of Transportation (Medical): No Lack of Transportation (Non-Medical): No Physical Activity: Inactive (07/05/2021) Exercise Vital Sign Days of Exercise per Week: 0 days Minutes of Exercise per Session: 10 min Stress: No Stress Concern Present (07/05/2021) [employer] [place] [employer] - Occupational Stress Questionnaire Feeling of Stress : Only a little Received from [facility] Social Connections Housing Stability: Low Risk (07/05/2021) Housing Stability Vital Sign Unable to Pay for Housing in the Last Year: No Number of Places Lived in the Last Year: 1 Unstable Housing in the Last Year: No PHYSICAL EXAM Nursing notes and vitals independently reviewed by me. VITALS: Vitals: 11/13/23 1630 11/13/23 1700 11/13/23 1715 11/13/23 1730 BP: 116/65 118/62 126/77 118/85 Pulse: 102 104 99 110 Resp: 26 30 29 Temp: TempSrc: SpO2: 98% 97% 93% 93% Weight: Height: PHYSICAL EXAM: General: alert, interactive, no distress Eyes: conjunctivae clear, conjugate gaze HENT: atraumatic, nose with no rhinorrhea, oropharynx clear Neck: no meningismus Cardiovascular: HR 130s during exam, irregular rhythm, no murmurs, brisk cap refill Chest: no chest wall tenderness Pulmonary: no stridor, normal phonation, normal work of breathing, clear lungs bilaterally Abdomen: soft, nondistended, nontender : no CVA tenderness Back: no midline spinal tenderness Musculoskeletal: no pretibial edema, no calf tenderness. Gross ROM intact to joints of extremities with no obvious deformities. Skin: warm, dry, no rash Neuro: awake, alert, answers questions appropriately, follows commands, moves all limbs Psych: calm, normal affect RESULTS EKG: Reviewed and independently interpreted by me. - a-fib with RVR at 137bpm, no KEELEY, no TWI, QRS 78, QTc 504 - ongoing a-fib with RVR from earlier today My read. LAB: Reviewed and independently interpreted by me. Results for orders placed or performed during the hospital encounter of 11/13/23 CT Chest Pulmonary Embolism w Contrast Impression IMPRESSION: 1. No PE, dissection, or aneurysm. 2. Slight prominence of central pulmonary artery which can be associated with pulmonary arterial hypertension. 3. Mild cardiomegaly with no evidence for active CHF. 4. Moderate coronary artery calcification. Extra Blue Top Tube Result Value Ref Range Hold Specimen JIC Extra Green Top ([place] Heparin) Tube Result Value Ref Range Hold Specimen JIC Extra Purple Top Tube Result Value Ref Range Hold Specimen JIC Result Value Ref Range INR 1.55 (H) 0.85 - 1.15 Basic metabolic panel Result Value Ref Range Sodium 136 135 - 145 mmol/L Potassium 4.0 3.4 - 5.3 mmol/L Chloride 99 98 - 107 mmol/L Carbon Dioxide (CO2) 20 (L) 22 - 29 mmol/L Anion Gap 17 (H) 7 - 15 mmol/L Urea Nitrogen 19.1 8.0 - 23.0 mg/dL Creatinine 0.69 0.51 - 0.95 mg/dL GFR Estimate >90 >60 mL/min/1.73m2 Calcium 9.1 8.8 - 10.2 mg/dL Glucose 259 (H) 70 - 99 mg/dL Hepatic function panel Result Value Ref Range Protein Total 7.0 6.4 - 8.3 g/dL Albumin 4.1 3.5 - 5.2 g/dL Bilirubin Total 0.2 <=1.2 mg/dL Alkaline Phosphatase 138 40 - 150 U/L AST 48 (H) 0 - 45 U/L ALT 53 (H) 0 - 50 U/L Bilirubin Direct <0.20 0.00 - 0.30 mg/dL Result Value Ref Range Lipase 63 (H) 13 - 60 U/L Result Value Ref Range Magnesium 2.0 1.7 - 2.3 mg/dL TSH with free T4 reflex Result Value Ref Range TSH 1.68 0.30 - 4.20 uIU/mL Result Value Ref Range CRP Inflammation <3.00 <5.00 mg/L Result Value Ref Range Troponin T, High Sensitivity 13 <=14 ng/L Nt probnp inpatient (BNP) Result Value Ref Range N terminal Pro BNP Inpatient 1,082 (H) 0 - 900 pg/mL Result Value Ref Range Procalcitonin 0.09 <0.50 ng/mL CBC with platelets and differential Result Value Ref Range WBC Count 8.4 4.0 - 11.0 10e3/uL RBC Count 5.11 3.80 - 5.20 10e6/uL Hemoglobin 11.2 (L) 11.7 - 15.7 g/dL Hematocrit 38.0 35.0 - 47.0 % MCV 74 (L) 78 - 100 fL MCH 21.9 (L) 26.5 - 33.0 pg MCHC 29.5 (L) 31.5 - 36.5 g/dL RDW 20.9 (H) 10.0 - 15.0 % Platelet Count 249 150 - 450 10e3/uL % Neutrophils 81 % % Lymphocytes 10 % % Monocytes 6 % % Eosinophils 2 % % Basophils 1 % % Immature Granulocytes 1 % NRBCs per 100 WBC 0 <1 /100 Absolute Neutrophils 6.8 1.6 - 8.3 10e3/uL Absolute Lymphocytes 0.9 0.8 - 5.3 10e3/uL Absolute Monocytes 0.5 0.0 - 1.3 10e3/uL Absolute Eosinophils 0.2 0.0 - 0.7 10e3/uL Absolute Basophils 0.1 0.0 - 0.2 10e3/uL Absolute Immature Granulocytes 0.1 <=0.4 10e3/uL Absolute NRBCs 0.0 10e3/uL ECG 12-LEAD WITH MUSE (LHE) Result Value Ref Range Systolic Blood Pressure mmHg Diastolic Blood Pressure mmHg Ventricular Rate 137 BPM Atrial Rate 120 BPM IL Interval ms QRS Duration 78 ms QT 334 ms QTc 504 ms P Jolon degrees R AXIS 7 degrees T Jolon 167 degrees Interpretation ECG Atrial fibrillation with rapid ventricular response ST & T wave abnormality, consider lateral ischemia Abnormal ECG When compared with ECG of 13-NOV-2023 14:11, T wave inversion now evident in Anterolateral leads Confirmed by SEE ED PROVIDER NOTE FOR, ECG INTERPRETATION ([id number]), marketing editor CLAYTON MAURO ([id number]) on 11/13/2023 6:14:52 PM RADIOLOGY: Reviewed and independently interpreted by me. Please see official radiology report. Recent Results (from the past 24 hour(s)) CT Chest Pulmonary Embolism w Contrast Narrative EXAM: CT CHEST PULMONARY EMBOLISM W CONTRAST LOCATION: [facility] DATE: 11/13/2023 INDICATION: chest pain, a fib RVR, low INR COMPARISON: 07/11/2021 TECHNIQUE: CT chest pulmonary angiogram during arterial phase injection of IV contrast. Multiplanarreformats and MIP reconstructions were performed. Dose reduction techniques were used. CONTRAST: ISOVUE 370 75mL FINDINGS: ANGIOGRAM CHEST: The main pulmonary artery measures 3.3 cm which is slightly prominent size (normalis 3.2 cm or less, these changes can [...] Moderate scattered degenerative changes in the spine. Impression IMPRESSION: 1. No PE, dissection, or aneurysm. 2. Slight prominence of central pulmonary artery which can be associated with pulmonary arterial hypertension. 3. Mild cardiomegaly with no evidence for active CHF. 4. Moderate coronary artery calcification. PROCEDURES: Procedures Cardiac telemetry monitoring ordered by me secondary to the patient's history of shortness of breath and to monitor the patient for dysrhythmia. Reviewed & independently interpreted by me. Revealed a-fib with rates from 80s-140s. Critical Care Performed by: Mauro Soliman MD Authorized by: Mauro Soliman MD Total critical care time: 60 minutes (Critical care time was exclusive of separately billable procedures and treating other patients.) Critical care was necessary to treat or prevent imminent or life-threatening deterioration of the following conditions: A-fib with RVR requiring multiple doses of IV rate controlling medication, telemetry admission Critical care was time spent personally by me on the following activities: - obtaining history from patient or surrogate - examination of patient - development of treatment plan with patient or surrogate - ordering and performing treatments and interventions - ordering and review of laboratory studies - ordering and review of radiographic studies - re-evaluation of patient's condition - monitoring for potential decompensation - discussion with consultants ADDITIONAL MDM History: - I considered systemic symptoms of the presenting illness. - Supplemental history from: -- patient - External Record(s) reviewed: -- Inpatient/outpatient record, prior labs, prior imaging -- see above ED course & MDM for further details Workup: - Chart documentation above includes differential considered and any EKGs or imaging independently interpreted by provider. - In additional to work up documented, I considered the following work up: -- see above ED course & MDM for further details External Consultation: - Discussion of management with another provider: -- see above charting for additional Complicating Factors: - Care impacted by chronic illness: -- see above MDM, past medical history, & problem list - Care affected by social determinants of health: -- see above social history -- Access to Affordable Healthcare Disposition Considerations: - Admit Mauro Soliman MD 11/13/23 Emergency Medicine [facility] EMERGENCY ROOM [address] [facility] [id number] Dept: [phone] Mauro Soliman MD 11/13/23 1839 * Colten Sandoval MD - 11/13/2023 2:25 PM CDT Expected Patient Referral to ED 2:25 PM Referring Clinic/Provider: Greta with [facility] with EP Reason for referral/Clinical facts: Hx of long standing persistent Afib. Previously tachycardia mediated cardiomyopathy. Recent echo 40%. Recent dyspnea with [place] ED. Substance abuse history too with titration. On coumadin. Need CRIS cardiovertion due to prior subtherapeutic INR. Recommendations provided: Contact inpatient service to discuss direct admission Caller was informed that this institution does possess the capabilities and/or resources to providefor patient and should be transferred to our facility. Discussed that if direct admit is sought and any hurdles are encountered, this ED would be happy tosee the patient and evaluate. Informed caller that recommendations provided are recommendations based only on the facts provided and that they responsible to accept or reject the advice, or to seek a formal in person consultationas needed and that this ED will see/treat patient should they arrive. Colten Sandoval MD [facility] EMERGENCY ROOM [address] [facility] [id number] Colten Sandoval MD 11/13/23 1427 documented in this encounter Miscellaneous Notes * Plan of Care - Laurel Bell RN - 11/16/2023 5:45 AM CDT Problem: Adult Inpatient Plan of Care Goal: Optimal Comfort and Wellbeing Outcome: Progressing Problem: Pain Chronic (Persistent) Goal: Optimal Pain Control and Function Outcome: Progressing Intervention: Manage Persistent Pain Recent Flowsheet Documentation Taken 11/16/2023422 by Laurel Bell RN Medication Review/Management: medications reviewed Taken 11/16/202352 by Laurel Bell RN Medication Review/Management: medications reviewed Intervention: Optimize Psychosocial Wellbeing Recent Flowsheet Documentation Taken 11/16/2023422 by Laurel Bell RN Supportive Measures: active listening utilized Taken 11/16/202352 by Laurel Bell RN Supportive Measures: active listening utilized Goal Outcome Evaluation: Pt alert and oriented c/o pain in abdomen upper symptoms overnight. Pt also nauseated at this time.VSS. Pt states had a gastic bypass years ago and can act up at times. Pt medicated with Simethiconeand Tums. Observe. * Plan of Care - Dean Cano RN - 11/15/2023 11:30 PM CDT I Illness Severity: Stable PPatient Summary: Telemetry Orders: Yes Interpretation of Cardiac Rhythm: A fib Dyspnea improved and O2 sats >88% at RA or at prior home O2 therapy level: Yes Last Bowel Movement: Acute Symptoms or Concerns: Is this a new or worsening symptom or concern? Is this symptom or concern being adequately managed? Shift Summary: Pt received Iron dextran infusion. She is on Room Air and O2 sats in mid 90's range.Slight WOLF but recovers quickly. She is anticipating going back to her [facility] tomorrow. AActions: Diagnostic testing and/or procedures completed, and results are available for discharge: SSituational Awareness: Anticipated post discharge treatment plan formulated and the following needs have been identified: None identified SSynthesis: Was bedside rounding completed on your shift? No What team members present during bedside rounds? NA HLM Admission: HLM Daily6- Walk 10 steps or more Goal Outcome Evaluation: Plan of Care Reviewed With: patient Overall Patient Progress: improvingOverall Patient Progress: improving Outcome Evaluation: Pt in Afib with HR around 90-100bpm. She is on RA at 95%. WOLF noted but recovers quickly. She is eager to go back to her facility tomorrow. * Plan of Care - Amparo Jenkins RN - 11/15/2023 7:24 PM CDT Problem: Pain Chronic (Persistent) Goal: Optimal Pain Control and Function Intervention: Develop Pain Management Plan Recent Flowsheet Documentation Taken 11/15/2023 1551 by Amparo Jenkins RN Pain Management Interventions: medication (see MAR) repositioned Taken 11/15/2023 0738 by Amparo Jenkins RN Pain Management Interventions: medication offered but refused Problem: Comorbidity Management Goal: Blood Pressure in Desired Range Intervention: Maintain Blood Pressure Management Recent Flowsheet Documentation Taken 11/15/2023 1610 by Amparo Jenkins RN Medication Review/Management: medications reviewed Taken 11/15/2023 0738 by Amparo Jenkins RN Medication Review/Management: medications reviewed Pt A/O x 4. VSS. Denies CP or SOB. This morning patient complained of abdominal pain described as gas pains. Prn meds used with relief per patient. Pt complains of chronic low back pain today prn meds topicals and rest have been utilized. Pt persistent all day about needing more medications even though plan of care was discussed with patient multiple times. MD made aware and conversation was had pt agreeable to plan of care at this time. Pt receiving IV iron tolerating well. Voiding spontaneously. Up SBA. Able to make needs known. Calls appropriately. Plans for discharge home tomorrow morning. Amparo Jenkins RN [id number] * Plan of Care - Wen Jenkins RN - 11/15/2023 7:46 AM CDT Problem: Adult Inpatient Plan of Care Goal: Optimal Comfort and Wellbeing Outcome: Progressing Problem: Pain Chronic (Persistent) Goal: Optimal Pain Control and Function Outcome: Progressing Goal Outcome Evaluation: Patient is alert and oriented. Patient is still constantly asking for more IV dilaudid, toradol, and zolpidem which I reassured that she is unable to get them. IV Dilaudid was switched to PO and patient was not content. Was getting 1mg of Dilaudid and tylenol throughout night with a little bit of relief. Tele reading Afib ranging from 70-100's. Purewick is in place. Denies any chestpain, n/v, sob. * Provider Notification - Belkys Brown RN - 11/14/2023 6:37 PM CDT 3:15 PM: Text Paged Dr. Mancini: I saw you discontinued her xanax and dilaudid. She told me you were just in the room and talked about increasing the dose of both of these medications? Is that true? I just want to make sure I set boundaries and have an accurate plan. This is not the plan of care, they want to minimize narcotics and and benzodiazepines. Asked for POinstead of IV narcotics for chronic pain. Medications changed to PO. 6:33 PM: Text paged senior resident team: FYI Pt is requesting benadryl and ambien. I explained theplan to add ativan and PRN dilaudid. She claims she took these all last evening which is not shown in the MAR. Also wanted to clarify why we changed the Dilaudid back to IV? * Plan of Care - Amparo Hernández RN - 11/14/2023 5:02 AM CDT Pt is A&Ox4. Pt rated pain 5-8/10 during shift thus far. Imitrex given for migraine with good effect. Pt frequently requesting Dilaudid for chronic back pain. Pt questioning dose of Dilaudid as she could not taste it like when she first got a dose in the ED. Educated pt on medication order, pt verbalized understanding. Offered other prn medication but pt declined. SBA for transferring to bedside commode. Saline locked. Voiding adequately. Education on medication administration, alarms, and use of call-light to reduce risk for falls and injury. VSS other than elevated bp, did not meet parameters to notify provider. One time dose of 10mg IV diltiazem given with effectiveness. Tele afib HR 80-100s overnight. Denies chest pain and nausea. * Medication Scribe - Admission Medication History - CloverdaleShad kennedyrachael Del Cid - 11/14/2023 12:09 AM CDT Medication Scribe Admission Medication History Admission medication history is complete. The information provided in this note is only as accurateas the sources available at the time of the update. Information Source(s): Patient, Clinic records, Facility ([facility] medication list/MAR, and CareEverywhere/SureScripts via in-person and phone. Patient is coming from an assisted living facility [facility] under the organization [facility] ([phone]) Pertinent Information: Joint effort between the pharmacist on duty and myself for this patient's medication history. Initially spoke with the patient, but when it was determined that she does not handle her own medications and had some level of uncertainty of what medications she is on, we called the facility she is residing at. Spoke with a nursing education specialist there who transferred us to the on-call nurse. The facility has requested a release of information request from the patient which was indeed signed by thepatient and sent to the electronics detail draftsperson nurse. After some time, a barn manager who works at the [facility] called the ED pharmacy number which had previously been provided to them. The nursing consultant reports that maintenance medications are given appropriately and as scheduled. However, as of 11/03 the patient should not have been on alprazolam or diphenhydramine and was put on hold due to increased impairment. They reported she frequently asks for all PRN medications to be administered at the same time which had included buspirone, methocarbamol, haloperidol, clonidine, andropinirole. Facility has NOT been giving these simultaneously. immigration manager reports that [facility] did not renew the amphetamine salts prescription. Facility reports that the patient takes several OTC products, but does not know what these are. Reports that the patient has them in theirroom and the patient's daughter sometimes sneaks them in sometimes which makes it difficult to determine what all the patient has been taking. This is notable as when the medication list was faxed over to us, it included a wellness check 6 times per day specifically mentioning to listen for the patient's daughter in the room. During my time in the room, the patient asked for controlled medications a few times. Notably, Dilauded was mentioned by name several times. This medication has not been filled since 09/28/2023 and was dispensed at a quantity of 8 tablets. Patient reports she gets 1-2 hydromorphone every 4-6 hours. Facility reports they have not administered any in over a month. Additionally, during a visit with the primary care provider on 10/19 the provider declined requests for fills of tramadol, diphenhydramine, pregabalin, and would no longer be filling controlled substances at this time. Due to several conflicting statements from patient interview and previous medical records, the length of this note and high number of sources needed to verify the information given was deemed necessary. Changes made to DRESS OPERATOR medication list: Added: None Deleted: Artificial saliva Diclofenac external gel Diphenhydramine (duplicate) Aluminum and magnesium hydroxide suspension Hydrocortisone 1% Metformin 500 mg Magnesium hydroxide suspension Pantoprazole 40 mg Pregabalin 100 mg (provider discontinued) Vaginal lubricant gel Changed: None Allergies reviewed with patient and updates made in EHR: yes Medication History Completed By: Cayden Cole 11/14/2023 12:10 AM DRESS OPERATOR Med List Medication Sig Note Last Dose albuterol (VENTOLIN HFA) 108 (90 Base) MCG/ACT IN inhaler Inhale 2 puffs into the lungs every 6 hours as needed at unable to bring amoxicillin (AMOXIL) 500 MG capsule Take 2,000 mg by mouth See Admin Instructions Take 2,000 mg 1 hour prior to dental appointment as needed. atorvastatin 40 MG PO tablet Take 40 mg by mouth At Bedtime 11/13/2023: Pt ran out of medication andprescription . Needs to be seen by provider to get a new prescription. Currently on hold at facility. 11/11/2023 azelastine 0.1 % NA nasal spray [place] 1 spray into both nostrils 2 times daily 11/13/2023 at x 1 (unable to bring) buprenorphine HCl-naloxone HCl (SUBOXONE) 8-[address] 1 Film under the tongue every morning 11/13/2023 at AM busPIRone (BUSPAR) 15 MG tablet Take 15 mg by mouth every 6 hours as needed (anxiety) clobetasol propionate (TEMOVATE) 0.05 % external cream Apply topically 2 times daily as needed (dryfeet) Apply to affected areas on feet twice daily as needed. cloNIDine (CATAPRES) 0.1 MG tablet Take 0.1 mg by mouth every 6 hours as needed (for withdrawal) Cyanocobalamin 1000 MCG CAPS Take 1,000 mcg by mouth every morning 11/13/2023 at AM diazepam (VALIUM) 5 MG tablet Take 5 mg by mouth See Admin Instructions Take 30 minutes prior to procedure digoxin (LANOXIN) 125 MCG tablet Take 125 mcg by mouth every morning 11/13/2023 at AM doxycycline hyclate (VIBRAMYCIN) 100 MG capsule Take 100 mg by mouth 2 times daily 11/13/2023 at x 1 fluticasone (FLONASE) 50 MCG/ACT nasal spray [place] 1 spray into both nostrils 2 times daily 11/13/2023 at x 1; unable to bring fluticasone-salmeterol (ADVAIR) 250-50 MCG/DOSE inhaler Inhale 1 puff into the lungs 2 times daily 11/13/2023 at x 1; unable to bring glycerin (ADULT) [address] 1 [...] 1 vial by nebulization 2 times daily 11/13/2023 at x 1 ketoconazole (NIZORAL) 2 % external shampoo Apply topically three times a week Wash affected areas on body and chest three times weekly. Lather and let sit 3-5 minutes before rinsing. Past Week lisinopril (ZESTRIL) 10 MG tablet Take 10 mg by mouth every morning 11/13/2023 at AM loperamide (IMODIUM) 2 MG capsule Take 2 mg by mouth 4 times daily as needed for diarrhea loratadine (CLARITIN) 10 MG tablet Take 10 mg by mouth every morning 11/13/2023 at AM methocarbamol (ROBAXIN) 500 MG tablet Take 500 mg by mouth 2 times daily as needed for muscle spasms metoprolol tartrate (LOPRESSOR) 50 MG tablet Take 50 mg by mouth 2 times daily 11/13/2023 at x 1 metroNIDAZOLE (METROCREAM) 0.75 % external cream Apply topically 2 times daily Apply to affected areas on face. Apply a thin layer 1-2 times daily. 11/13/2023 at x 1 mupirocin (BACTROBAN) 2 % external ointment Apply topically daily Apply a thin layer to the open sores on the body daily. 11/13/2023 at AM naloxone (NARCAN) 4 MG/0.1ML nasal spray [place] 4 mg into one nostril alternating nostrils as neededfor opioid reversal every 2-3 minutes until assistance arrives nystatin [id number] UNIT/GM EX external powder Apply topically 2 times daily as needed for dry skin omeprazole (PRILOSEC) [address] capsule Take 20 mg by mouth every morning 11/13/2023 at AM ondansetron (ZOFRAN-ODT) [address] 4 mg under the tongue every 8 hours as needed for nausea polyethylene glycol (MIRALAX) 17 g packet Take 1 packet by mouth every morning 11/13/2023 at AM rOPINIRole (REQUIP) 0.5 MG tablet Take 0.5 mg by mouth nightly as needed senna-docusate (SENOKOT-S/PERICOLACE) 8.6-50 MG tablet Take 1 tablet by mouth 2 times daily 11/13/2023 at x 1 sertraline (ZOLOFT) 100 MG tablet Take 200 mg by mouth every morning 11/13/2023 at AM SM GAS RELIEF EXTRA STRENGTH 125 MG PO CAPS Take 1 capsule by mouth 4 times daily as needed SUMAtriptan (IMITREX) 50 MG tablet Take 50 mg by mouth at onset of headache for migraine May repeatx1 in 2 hours if needed. tacrolimus (PROTOPIC) 0.1 % external ointment Apply topically 2 times daily Apply a thin layer to affected areas on body 1-2 times daily. 11/13/2023 at x 1 torsemide 20 MG PO tablet Take 20 mg by mouth daily 11/13/2023 at AM triamcinolone (KENALOG) 0.1 % external cream Apply topically 2 times daily Apply topically to affected areas on arms twice daily. 11/13/2023 at x 1 warfarin ANTICOAGULANT (COUMADIN) 3 MG tablet Take 1.5-3 mg by mouth See Admin Instructions Take 1.5 mg (1/2 tablet) on Thursday, Thursday, Thursday, and Thursday. Take 3 mg all other days of the week. 11/12/2023 zolpidem (AMBIEN) 5 MG tablet Take 5 mg by mouth At Bedtime 11/12/2023 * Pharmacy-Anticoagulation Service - Rhonda Nam RPH - 11/13/2023 10:42 PM CDT Clinical Pharmacy - Warfarin Dosing Consult Pharmacy has been consulted to manage this patient???s warfarin therapy. Indication: Atrial Fibrillation Therapy Goal: INR 2-3 Warfarin Prior to Admission: Yes Warfarin DRESS OPERATOR Regimen: 3 mg on Thursday, Thursday, . Take 1.5 mg all other days of the week. Significant drug interactions: Home meds = omeprazole, sertraline, ropinirole Dose Comments: INR subtherapeutic. Will give 3 mg tonight. INR Date Value Ref Range Status 11/13/2023 1.60 (H) 0.85 - 1.15 Final 11/13/2023 1.55 (H) 0.85 - 1.15 Final Recommend warfarin 3 mg today. Pharmacy will monitor Brandee Cordova daily and order warfarin doses to achieve specified goal. Please contact pharmacy as soon as possible if the warfarin needs to be held for a procedure or if the warfarin goals change. documented in this encounter Plan of Treatment Upcoming Encounters Date Type Department Care Team (Late st Contact Info) Description 12/10/2023 9:30 AM CDT Office Visit [facility] [place] [address] [place] [address] [place] [address] [place] [id number] documented as of this encounter Procedures Procedure Name Priority Date/Time Associated Diagnosis Comments CBC WITH PLATELETS Routine 11/16/2023 4: 57 AM CDT INR Routine 11/15/2023 7:43 AM CDT FERRITIN Routine 11/15/2023 7:43 AM CDT BASIC METABOLIC PANEL Routine 11/15/2023 7:43 AM CDT CBC WITH PLATELETS Routine 11/15/2023 7: 43 AM CDT ECHO COMPLETE WITH CONTRAST Routine 11/14/2023 12:47 PM CDT CBC WITH PLATELETS STAT 11/14/2023 8: 36 AM CDT INR STAT 11/14/2023 5:48 AM CDT BASIC METABOLIC PANEL STAT 11/14/2023 5:48 AM CDT VITAMIN B1 WHOLE BLOOD STAT 9:13 PM CDT INR STAT 11/13/2023 9:13 PM CDT LACTIC ACID WHOLE BLOOD STAT 11/13/2023 9:[address] CHEST PULMONARY EMBOLISM W CONTRAST STAT 11/13/2023 4:50 PM CDT EXTRA TUBE STAT 11/13/2023 2:48 PM CDT EXTRA PURPLE TOP TUBE STAT 11/13/2023 2:48 PM CDT EXTRA GREEN TOP (LITHIUM HEPARIN) TUBE STAT 11/13/2023 2:48 PM CDT EXTRA BLUE TOP TUBE STAT 11/13/2023 2 :48 PM CDT CBC WITH PLATELETS AND DIFFERENTIAL STAT 11/13/2023 2:48 PM CDT TROPONIN T, HIGH SENSITIVITY STAT 11/13/2023 2:48 PM CDT PROCALCITONIN STAT 11/13/2023 2:48 PM CDT CBC WITH PLATELETS & DIFFERENTIAL STAT 11/13/2023 2:48 PM CDT TSH WITH FREE T4 REFLEX STAT 11/13/2023 2:48 PM CDT INR STAT 11/13/2023 2:48 PM CDT NT PROBNP INPATIENT STAT 11/13/2023 2 :48 PM CDT MAGNESIUM STAT 11/13/2023 2:48 PM CDT LIPASE STAT 11/13/2023 2:48 PM CDT IRON AND IRON BINDING CAPACITY Add-On 11/13/2023 2:48 PM CDT HEPATIC FUNCTION PANEL STAT 2:48 PM CDT CRP INFLAMMATION STAT 11/13/2023 2:48 PM CDT BASIC METABOLIC PANEL STAT 11/13/2023 2:48 PM CDT ECG 12-LEAD WITH MUSE ? [facility],S[facility] STAT 11/13/2023 2:42 PM CDT documented in this encounter Results * (ABNORMAL) CBC with platelets (11/16/2023 4:57 AM CDT) WBC Count 9.2 4.0 - 11.0 10e3/uL 11/16/2023 5:12 AM CDT [facility] RBC Count 5.02 3.80 - 5.20 10e6/uL 11/16/2023 5:12 AM CDT [facility] Hemoglobin 11.2(L) 11.7 - 15.7 g/dL 11/16/2023 5:12 AM CDT [facility] Hematocrit 36.8 35.0 - 47.0 % 11/16/2023 5:12 AM CDT [facility] MCV 73(L) 78 - 100 fL 11/16/2023 5:12 AM CDT [facility] MCH 22.3(L) 26.5 - 33.0 pg 11/16/2023 5:12 AM CDT [facility] MCHC 30.4(L) 31.5 - 36.5 g/dL 11/16/2023 5:12 AM CDT [facility] RDW 20.4(H) 10.0 - 15.0 % 11/16/2023 5:12 AM CDT [facility] Platelet Count 228 150 - 450 10e3/uL 11/16/2023 5:12 AM CDT [facility] Blood BLOOD SPECIMEN / Unknown Venipuncture / Unknown 11/16/2023 4:57 AM CDT 11/16/2023 5:07 AM CDT Pablito Morejon MD LAB - BLOOD ORDERABL ES [facility] [address] [place] [address], [facility] * Ferritin (11/15/2023 7:43 AM CDT) Pathologist [facility] Ferritin 26 11 - 328 ng/mL 11/15/2023 12:43 PM CDT [facility] Blood BLOOD SPECIMEN / Unknown Venipuncture / Unknown 11/15/2023 7:43 AM CDT 11/15/2023 7:58 AM CDT Rhonda Haas MD LAB - BLOOD ORDERABL ES [facility] [place] [facility] [address][1], [address] [place] [address], [facility] * (ABNORMAL) Basic metabolic panel (11/15/2023 7:43 AM CDT) Sodium 136 135 - 145 mmol/L 11/15/2023 8:17 AM [facility] Comment:Reference intervals for this test were updated on 02/24/2023 to more accurately reflect our healthy population. There may be differences in the flagging of prior results with similar values performed with this method. Interpretation of those prior results can be made in the context of the updated reference intervals. Potassium 4.2 3.4 - 5.3 mmol/L 11/15/2023 8:17 AM [facility] Chloride 102 98 - 107 mmol/L 11/15/2023 8:17 AM [facility] Carbon Dioxide (CO2) 20(L) 22 - 29 mmol/L 11/15/2023 8:17 AM [facility] Anion Gap 14 7 - 15 mmol/L 11/15/2023 8:17 AM [facility] Urea Nitrogen 19.2 8.0 - 23.0 mg/dL 11/15/2023 8:17 AM [facility] Creatinine 0.50(L) 0.51 - 0.95 mg/dL 11/15/2023 8:17 AM [facility] GFR Estimate >90 >60 mL/min/1. 73m2 11/15/2023 8:17 AM [facility] Comment:eGFR calculated usin 2020 CKD-EPI equation. Calcium 9.1 8.8 - 10.2 mg/dL 11/15/2023 8:17 AM [facility] Glucose 163(H) 70 - 99 mg/dL 11/15/2023 8:17 AM [facility] Blood BLOOD SPECIMEN / Unknown Venipuncture / Unknown 11/15/2023 7:43 AM CDT 11/15/2023 7:58 AM CDT Rhonda Haas MD LAB - BLOOD ORDERABL ES [facility] [address] [place] [address] * (ABNORMAL) CBC with platelets (11/15/2023 7:43 AM CDT) WBC Count 8.0 4.0 - 11.0 10e3/uL 11/15/2023 8:11 AM CDT [facility] RBC Count 5.14 3.80 - 5.20 10e6/uL 11/15/2023 8:11 AM CDT [facility] Hemoglobin 11.2(L) 11.7 - 15.7 g/dL 11/15/2023 8:11 AM CDT [facility] Hematocrit 38.6 35.0 - 47.0 % 11/15/2023 8:11 AM CDT [facility] MCV 75(L) 78 - 100 fL 11/15/2023 8:11 AM CDT [facility] MCH 21.8(L) 26.5 - 33.0 pg 11/15/2023 8:11 AM CDT [facility] MCHC 29.0(L) 31.5 - 36.5 g/dL 11/15/2023 8:11 AM CDT [facility] RDW 20.6(H) 10.0 - 15.0 % 11/15/2023 8:11 AM CDT [facility] Platelet Count 215 150 - 450 10e3/uL 11/15/2023 8:11 AM CDT [facility] Blood BLOOD SPECIMEN / Unknown Venipuncture / Unknown 11/15/2023 7:43 AM CDT 11/15/2023 7:58 AM CDT Rhonda Haas MD LAB - BLOOD ORDERABL ES [facility] [address] [place] [address] * (ABNORMAL) INR (11/15/2023 7:43 AM CDT) INR 1.34(H) 0.85 - 1.15 11/15/2023 8:09 AM CDT [facility] Blood BLOOD SPECIMEN / Unknown Venipuncture / Unknown 11/15/2023 7:43 AM CDT 11/15/2023 7:57 AM CDT Live Ramirez MD LAB - BLOOD ORDERABL ES [facility] [address] [place] [address], [facility] * ECHO COMPLETE WITH CONTRAST (11/14/2023 12:47 PM CDT) LVEF 50-55% (borderlin e) CARDIOLOGY RESULTS Anatomical Region Laterality Modality Ultrasound 11/14/2023 12:1 5 PM CDT Narrative 11/14/2023 3:06 PM CDT [id number]^KAI^[place] [address] Name: BRANDEE CORDOVA : 1960 Study Date: 11/14/2023 12:15 PM Age: 63 yrs Gender: Female Patient Location: [facility] Reason For Study: Atrial Fibrillation Ordering Physician: LISANDRA QUINN Performed By: DAYO BSA: 1.9 m2 Height: 62 in Weight: 201 lb HR: 97 BP: 102/67 mmHg Procedure Complete Portable Echo Adult. Definity ([facility] #[id number]) given intravenously. No hemodynamically significant valvular abnormalities [...] Procedure Note Lisandra Quinn MD - 11/14/2023 [id number]^KAI^[place] [address] Name: BRANDEE CORDOVA : 1960 Study Date: 11/14/2023 12:15 PM Age: 63 yrs Gender: Female Patient Location: [facility] Reason For Study: Atrial Fibrillation Ordering Physician: LISANDRA QUINN Performed By: DAYO BSA: 1.9 m2 Height: 62 in Weight: 201 lb HR: 97 BP: 102/67 mmHg Procedure Complete Portable Echo Adult. Definity ([facility] #[id number]) givenintravenously. No hemodynamically significant valvular abnormalities on [...] Lisandra Quinn MD CV ECHO ORDERABLES * (ABNORMAL) CBC with platelets (11/14/2023 8:36 AM CDT) [facility] WBC Count 6.3 4.0 - 11.0 10e3/uL 11/14/2023 8:50 AM CDT [facility] RBC Count 4.47 3.80 - 5.20 10e6/uL 11/14/2023 8:50 AM CDT [facility] Hemoglobin 9.9(L) 11.7 - 15.7 g/dL 11/14/2023 8:50 AM CDT [facility] Hematocrit 33.6(L) 35.0 - 47.0 % 11/14/2023 8:50 AM CDT [facility] MCV 75(L) 78 - 100 fL 11/14/2023 8:50 AM CDT [facility] MCH 22.1(L) 26.5 - 33.0 pg 11/14/2023 8:50 AM CDT [facility] MCHC 29.5(L) 31.5 - 36.5 g/dL 11/14/2023 8:50 AM CDT [facility] RDW 20.6(H) 10.0 - 15.0 % 11/14/2023 8:50 AM CDT [facility] Platelet Count 184 150 - 450 10e3/uL 11/14/2023 8:50 AM CDT [facility] Blood BLOOD SPECIMEN / Unknown Venipuncture / Unknown 11/14/2023 8:36 AM CDT 11/14/2023 8:39 AM CDT Sosa Pablo DO LAB - BLOOD ORDERABL ES Performing Organization Address [facility] Co de Phone Number [facility] [address] [place] [address] * (ABNORMAL) INR (11/14/2023 5:48 AM CDT) INR 1.52(H) 0.85 - 1.15 11/14/2023 6:32 AM CDT [facility] Blood BLOOD SPECIMEN / Unknown Venipuncture / Unknown 11/14/2023 5:48 AM CDT 11/14/2023 6:14 AM CDT Live Ramirez MD LAB - BLOOD ORDERABL ES Performing Organization Address City/[facility]/ZIP Co de Phone Number [facility] [address] [place] [address] * (ABNORMAL) Basic metabolic panel (11/14/2023 5:48 AM CDT) Sodium 136 135 - 145 mmol/L 11/14/2023 6:45 AM [facility] Comment:Reference intervals for this test were updated on 02/24/2023 to more accurately reflect our healthy population. There may be differences in the flagging of prior results with similar values performed with this method. Interpretation of those prior results can be made in the context of the updated reference intervals. Potassium 4.4 3.4 - 5.3 mmol/L 11/14/2023 6:45 AM T [facility] Chloride 103 98 - 107 mmol/L 11/14/2023 6:45 AM T [facility] Carbon Dioxide (CO2) 19(L) 22 - 29 mmol/L 11/14/2023 6:45 AM [facility] Anion Gap 14 7 - 15 mmol/L 11/14/2023 6:45 AM [facility] Urea Nitrogen 16.9 8.0 - 23.0 mg/dL 11/14/2023 6:45 AM T [facility] Creatinine 0.58 0.51 - 0.95 mg/dL 11/14/2023 6:45 AM T [facility] GFR Estimate >90 >60 mL/min/1. 73m2 11/14/2023 6:45 AM T [facility] Comment:eGFR calculated usin 2020 CKD-EPI equation. Calcium 9.0 8.8 - 10.2 mg/dL 11/14/2023 6:45 AM T [facility] Glucose 135(H) 70 - 99 mg/dL 11/14/2023 6:45 AM T [facility] Blood BLOOD SPECIMEN / Unknown Venipuncture / Unknown 11/14/2023 5:48 AM CDT 11/14/2023 6:14 AM CDT Sosa Pablo DO LAB - BLOOD ORDERABL ES [facility] [address] [place] [address], [facility] * Lactic acid whole blood (11/13/2023 9:13 PM CDT) Lactic Acid 1.8 0.7 - 2.0 mmol/L 11/13/2023 9:21 PM CDT [facility] Blood STRUCTURE OF LEFT UPPER LIMB / Unknown Venipuncture / Unknown 11/13/2023 9:13 PM CDT 11/13/2023 9:16 PM CDT Sosa Pablo DO LAB - BLOOD ORDERABL ES Performing Organization Address City/[facility]/ZIP Co de Phone Number [facility] [address] [place], [place] [address] * Vitamin B1 whole blood (11/13/2023 9:13 PM CDT) Vitamin B1 Whole Blood Level 164 70 - 180 nmol/L 11/19/2023 12:24 PM CDT I AM AT Comment: INTERPRETIVE INFORMATION: Vitamin B1, Whole Blood This assay measures the concentration of thiamine diphosphate (TDP), the primary active form of vitamin B1. Approximately 90 percent of vitamin B1 present in whole blood is TDP. Thiamine and thiamine monophosphate, which comprise the remaining 10 percent, are not measured. This test was developed and its performance characteristics determined by [facility]. It has not been cleared or approved by the [place] Food and Drug Administration. This test was performed in a CLIA certified laboratory and is intended for clinical purposes. Performed By: [facility] [address] [place] [address] Global Project Manager: Chay Mendez MD, PhD CLIA Number: [id number] Blood STRUCTURE OF LEFT UPPER LIMB / Unknown Venipuncture / Unknown 11/13/2023 9:13 PM CDT 11/13/2023 9:16 PM CDT Sosa Pablo DO LAB - BLOOD ORDERABL ES Performing Organization Address City/[facility]/ZIP Co de Phone Number [facility] [address] [place] [address], [facility] [phone] * (ABNORMAL) INR (11/13/2023 9:13 PM CDT) INR 1.60(H) 0.85 - 1.15 11/13/2023 9:29 PM CDT [facility] Blood STRUCTURE OF LEFT UPPER LIMB / Unknown Venipuncture / Unknown 11/13/2023 9:13 PM CDT 11/13/2023 9:16 PM CDT Sosa Pablo DO LAB - BLOOD ORDERABL ES [facility] [address] [place] [address], [facility] * CT Chest Pulmonary Embolism w Contrast [...] CT CHEST PULMONARY EMBOLISM W CONTRAST LOCATION: [facility] DATE: 11/13/2023 INDICATION: chest pain, a fib [...] CT CHEST PULMONARY EMBOLISM W CONTRAST LOCATION: [facility] DATE: 11/13/2023 INDICATION: chest pain, a fib [...] Moderate coronary artery calcification. Mauro Soliman MD [facility] ORDERABLES * (ABNORMAL) Iron and iron binding capacity (11/13/2023 2:48 PM CDT) Iron 29(L) 37 - 145 ug/dL 11/13/2023 9:09 PM CDT [facility] Iron Binding Capacity 440(H) 240 - 430 ug/dL 11/13/2023 9:09 PM CDT [facility] Iron Sat Index 7(L) 15 - 46 % 11/13/2023 9:09 PM CDT [facility] Blood STRUCTURE OF RIGHT UPPER LIMB / Unknown Venipuncture / Unknown 11/13/2023 2:48 PM CDT 11/13/2023 2:52 PM CDT Sosa Pablo LAB - BLOOD ORDERABL ES [facility] [address] [place] [address], [facility] * (ABNORMAL) CBC with platelets and differential (11/13/2023 2:48 PM CDT) WBC Count 8.4 4.0 - 11.0 10e3/uL 11/13/2023 3:30 PM CDT [facility] RBC Count 5.11 3.80 - 5.20 10e6/uL 11/13/2023 3:30 PM CDT [facility] Hemoglobin 11.2(L) 11.7 - 15.7 g/dL 11/13/2023 3:30 PM CDT [facility] Hematocrit 38.0 35.0 - 47.0 % 11/13/2023 3:30 PM CDT [facility] MCV 74(L) 78 - 100 fL 11/13/2023 3:30 PM CDT [facility] MCH 21.9(L) 26.5 - 33.0 pg 11/13/2023 3:30 PM CDT [facility] MCHC 29.5(L) 31.5 - 36.5 g/dL 11/13/2023 3:30 PM CDT [facility] RDW 20.9(H) 10.0 - 15.0 % 11/13/2023 3:30 PM CDT [facility] Platelet Count 249 150 - 450 10e3/uL 11/13/2023 3:30 PM CDT [facility] % Neutrophils 81 % 11/13/2023 3:30 PM CDT [facility] % Lymphocytes 10 % 11/13/2023 3:30 PM CDT [facility] % Monocytes 6 % 11/13/2023 3:30 PM CDT [facility] % Eosinophils 2 % 11/13/2023 3:30 PM CDT [facility] % Basophils 1 % 11/13/2023 3:30 PM CDT [facility] % Immature Granulocytes 1 % 11/13/2023 3:30 PM CDT [facility] NRBCs per 100 WBC 0 <1 /100 024 3:30 PM CDT [facility] Absolute Neutrophils 6.8 1.6 - 8.3 10e3/uL 11/13/2023 3:30 PM CDT [facility] Absolute Lymphocytes 0.9 0.8 - 5.3 10e3/uL 11/13/2023 3:30 PM CDT [facility] Absolute Monocytes 0.5 0.0 - 1.3 10e3/uL 11/13/2023 3:30 PM CDT [facility] Absolute Eosinophils 0.2 0.0 - 0.7 10e3/uL 11/13/2023 3:30 PM CDT [facility] Absolute Basophils 0.1 0.0 - 0.2 10e3/uL 11/13/2023 3:30 PM CDT [facility] Absolute Immature Granulocytes 0.1 <=0.4 10e3/uL 11/13/2023 3:30 PM CDT [facility] Absolute NRBCs 0.0 10e3/uL 11/13/2023 3:30 PM CDT [facility] Blood STRUCTURE OF RIGHT UPPER LIMB / Unknown Venipuncture / Unknown 11/13/2023 2:48 PM CDT 11/13/2023 2:52 PM CDT Mauro Soliman MD LAB - BLOOD ORDERABL ES [facility] Organization Address City/State/ZIP Co de Phone Number [facility] [address] [place] [address], [facility] * Procalcitonin (11/13/2023 2:48 PM CDT) Procalcitonin 0.09 <0.50 ng/mL 11/13/2023 3:45 PM CDT [facility] Comment: Interpretation and Recommendations <0.5 [...] See Procalcitonin Guidance document for more details. [email or web address] Factors that may affect PCT levels (not [...] Soliman MD LAB - BLOOD ORDERABL ES [facility] [address] [place], [place] [address] * (ABNORMAL) Nt probnp inpatient (BNP) (11/13/2023 2:48 PM CDT) N terminal Pro BNP Inpatient 1,082(H) 0 - 900 pg/mL 11/13/2023 3:45 PM CDT [facility] Comment: Reference range shown and [...] - BLOOD ORDERABL ES Performing Organization Address [facility] Co de Phone Number [facility] [address] [place] [address], [facility] * Troponin T, High Sensitivity (11/13/2023 2:48 PM CDT) [facility] Troponin T, High Sensitivity 13 <=14 ng/L 11/13/2023 3:45 PM CDT [facility] Comment: Either a High Sensitivity Troponin [...] follow-up, or urgent outpatient provocative testing. Blood STRUCTURE OF RIGHT UPPER LIMB / Unknown Venipuncture / Unknown 11/13/2023 2:48 PM CDT 11/13/2023 2:52 PM CDT Mauro Soliman MD LAB - BLOOD ORDERABL ES Performing Organization Address [facility]/ZIP Co de Phone Number [facility] [address] [place] [address], [facility] * CRP inflammation (11/13/2023 2:48 PM CDT) Pathologist [facility] CRP Inflammation <3.00 <5.00 mg/L 11/13/19 3:45 PM CDT [facility] Blood STRUCTURE OF RIGHT UPPER LIMB / Unknown Venipuncture / Unknown 11/13/2023 2:48 PM CDT 11/13/2023 2:52 PM CDT Mauro Soliman MD LAB - BLOOD ORDERABL ES Performing Organization Address [facility] Co de Phone Number [facility] [address] [place] [address] Dr. [place], [place] [address], [facility] * TSH with free T4 reflex (11/13/2023 2:48 PM CDT) [facility] TSH 1.68 0.30 - 4.20 uIU/mL 11/13/2023 3:45 PM CDT [facility] Blood STRUCTURE OF RIGHT UPPER LIMB / Unknown Venipuncture / Unknown 11/13/2023 2:48 PM CDT 11/13/2023 2:52 PM CDT Mauro Soliman MD LAB - BLOOD ORDERABL ES Performing Organization Address [facility] Phone Number [facility] [address] [place], [place] [address]rafael [place], [place] [address], [facility] * Magnesium (11/13/2023 2:48 PM CDT) [facility] Magnesium 2.0 1.7 - 2.3 mg/dL 11/13/2023 3:45 PM CDT [facility] Blood STRUCTURE OF RIGHT UPPER LIMB / Unknown Venipuncture / Unknown 11/13/2023 2:48 PM CDT 11/13/2023 2:52 PM CDT Mauro Soliman MD LAB - BLOOD ORDERABL ES Performing Organization Address [facility] Co de Phone Number [facility] [address] [place] [address], [facility] * (ABNORMAL) Lipase (11/13/2023 2:48 PM CDT) Lipase 63(H) 13 - 60 U/L 11/13/2023 3:45 PM CDT [facility] Blood STRUCTURE OF RIGHT UPPER LIMB / Unknown Venipuncture / Unknown 11/13/2023 2:48 PM CDT 11/13/2023 2:52 PM CDT Mauro Soliman MD LAB - BLOOD ORDERABL ES [facility] [address] [place] [address], [facility] * (ABNORMAL) Hepatic function panel (11/13/2023 2:48 PM CDT) Pathologist [facility] Protein Total 7.0 6.4 - 8.3 g/dL 11/13/2023 3:45 PM CDT [facility] Albumin 4.1 3.5 - 5.2 g/dL 11/13/2023 3:45 PM CDT [facility] Bilirubin Total 0.2 <=1.2 mg/dL 11/13/2023 3:45 PM CDT [facility] Alkaline Phosphatase 138 40 - 150 U/L 11/13/2023 3:45 PM CDT [facility] AST 48(H) 0 - 45 U/L 11/13/2023 3:45 PM CDT [facility] Comment:Reference intervals for this test were updated on 11/10/2022 to more accurately reflect our healthy population. There may be differences in the flagging of prior results with similar values performed with this method. Interpretation of those prior results can be made in the context of the updated reference intervals. ALT 53(H) 0 - 50 U/L 11/13/2023 3:45 PM CDT [facility] Comment:Reference intervals for this test were updated on 11/10/2022 to more accurately reflect our healthy population. There may be differences in the flagging of prior results with similar values performed with this method. Interpretation of those prior results can be made in the context of the updated reference intervals. Bilirubin Direct <0.20 0.00 - 0.30 mg/dL 11/13/2023 3:45 PM CDT [facility] Blood STRUCTURE OF RIGHT UPPER LIMB / Unknown Venipuncture / Unknown 11/13/2023 2:48 PM CDT 11/13/2023 2:52 PM CDT Mauro Soliman MD LAB - BLOOD ORDERABL ES [facility] [address] [place] [address], [facility] * (ABNORMAL) Basic metabolic panel (11/13/2023 2:48 PM CDT) Pathologist [facility] Sodium 136 135 - 145 mmol/L 11/13/2023 3:45 PM CDT [facility] Comment:Reference intervals for this test were updated on 02/24/2023 to more accurately reflect our healthy population. There may be differences in the flagging of prior results with similar values performed with this method. Interpretation of those prior results can be made in the context of the updated reference intervals. Potassium 4.0 3.4 - 5.3 mmol/L 11/13/2023 3:45 PM CDT [facility] Chloride 99 98 - 107 mmol/L 11/13/2023 3:45 PM CDT [facility] Carbon Dioxide (CO2) 20(L) 22 - 29 mmol/L 11/13/2023 3:45 PM CDT [facility] Anion Gap 17(H) 7 - 15 mmol/L 11/13/2023 3:45 PM CDT [facility] Urea Nitrogen 19.1 8.0 - 23.0 mg/dL 11/13/2023 3:45 PM CDT [facility] Creatinine 0.69 0.51 - 0.95 mg/dL 11/13/2023 3:45 PM CDT [facility] GFR Estimate >90 >60 mL/min/1. 73m2 11/13/2023 3:45 PM CDT [facility] Comment:eGFR calculated usin 2020 CKD-EPI equation. Calcium 9.1 8.8 - 10.2 mg/dL 11/13/2023 3:45 PM CDT [facility] Glucose 259(H) 70 - 99 mg/dL 11/13/2023 3:45 PM CDT [facility] Blood STRUCTURE OF RIGHT UPPER LIMB / Unknown Venipuncture / Unknown 11/13/2023 2:48 PM CDT 11/13/2023 2:52 PM CDT Mauro Soliman MD LAB - BLOOD ORDERABL ES Performing Organization Address [facility]/ZIP Co de Phone Number [facility] [address] [place] [address] JOE Garcia [facility], [facility] * (ABNORMAL) INR (11/13/2023 2:48 PM CDT) INR 1.55(H) 0.85 - 1.15 11/13/2023 3:29 PM CDT [facility] Blood STRUCTURE OF RIGHT UPPER LIMB / Unknown Venipuncture / Unknown 11/13/2023 2:48 PM CDT 11/13/2023 2:52 PM CDT Mauro Soliman MD LAB - BLOOD ORDERABL ES Performing Organization Address [facility] Co de Phone Number [facility] [address] [place] [address] JOE Garcia [facility], [facility] * Extra Purple Top Tube (11/13/2023 2:48 PM CDT) Hold Specimen [facility] 11/13/2023 4:04 PM CDT [facility] Blood STRUCTURE OF RIGHT UPPER LIMB / Unknown Venipuncture / Unknown 11/13/2023 2:48 PM CDT 11/13/2023 2:52 PM CDT Mauro Soliman MD LAB - BLOOD ORDERABL ES Performing Organization Address [facility]/ZIP Co de Phone Number [facility] [address] [facility], [facility] * Extra Green Top ([place] Heparin) Tube (11/13/2023 2:48 PM CDT) Hold Specimen [facility] 11/13/2023 4:04 PM CDT [facility] Blood STRUCTURE OF RIGHT UPPER LIMB / Unknown Venipuncture / Unknown 11/13/2023 2:48 PM CDT 11/13/2023 2:52 PM CDT Mauro Soliman MD LAB - BLOOD ORDERABL ES Performing Organization Address City/[facility]/ZIP Co de Phone Number [facility] [address] [place] [address] [place] [address], [facility] * Extra Blue Top Tube (11/13/2023 2:48 PM CDT) Hold Specimen [facility] 11/13/2023 4:04 PM CDT [facility] Blood STRUCTURE OF RIGHT UPPER LIMB / Unknown Venipuncture / Unknown 11/13/2023 2:48 PM CDT 11/13/2023 2:52 PM CDT Mauro Soliman MD LAB - BLOOD ORDERABL ES Performing Organization Address [facility] Co de Phone Number [facility] [address] [place] [address], [facility] * ECG 12-LEAD WITH MUSE (LHE) (11/13/2023 2:42 PM CDT) Systolic Blood Pressure mmHg RADIOLOGY RESULTS Diastolic Blood Pressure mmHg RADIOLOGY RESULTS Ventricular Rate 137 BPM RAD IOLOGY RESULTS Atrial Rate 120 BPM RADIOLOG Y RESULTS IL Interval ms RADIOLOG Y RESULTS QRS Duration 78 ms RADIOLO GY RESULTS QT 334 ms RADIOLOGY RESULTS QTc 504 ms RADIOLOGY RESULTS P [place] degrees RADIOLOGY RESULTS R AXIS 7 degrees RADIOLOGY RESULTS T [place] 167 degrees RADIOLOGY RESULTS Interpretation ECG Atrial fibrillation with rapid ventricular response ST & T wave abnormality, consider lateral ischemia Abnormal ECG When compared with ECG of 13-NOV-2023 14:11, T wave inversion now evident in Anterolateral leads Confirmed by SEE ED PROVIDER NOTE FOR, ECG INTERPRETATION ([id number]), marketing editor CLAYTON MAURO ([id number]) on 11/13/2023 6:14:52 PM RADIOLOGY RESULTS 11/13/2023 2:42 PM CDT 11/13/2023 6:14 PM CDT Mauro Soliman MD ECG ORDERABLES RADIOLOGY RESULTS documented in this encounter Visit Diagnoses Diagnosis Atrial fibrillation with RVR (H) Atrial fibrillation Exertional dyspnea Other dyspnea and respiratory abnormality Subtherapeutic international normalized ratio (INR) Abnormal coagulation profile Warfarin anticoagulation Encounter for long-term (current) use of anticoagulants Exertional dyspnea Other dyspnea and respiratory abnormality Atrial fibrillation with RVR (H) Atrial fibrillation Subtherapeutic international normalized ratio (INR) Abnormal coagulation profile Warfarin anticoagulation Encounter for long-term (current) use of anticoagulants documented in this encounter Administered Medications Inactive Administered Medications - up to 3 most recent administrations Medication Order MAR Action Action Date Dose Rate Site acetaminophen (TYLENOL) Suppository 650 mg 650 mg, Rectal, EVERY 4 HOURS SCHEDULED, First dose (after last modification) on Thu11/15/23 at 1600, Alternate with ibuprofen if ordered. Maximum acetaminophen dose from all sources = 75 mg/kg/day not to exceed 4 grams/day. acetaminophen (TYLENOL) tablet 650 mg 650 mg, Oral, EVERY 4 HOURS PRN, mild pain, other, and adjunct with moderate or severe pain or per patient request, Starting on Thu11/13/23 at 2007, Alternate with ibuprofen if ordered. Maximum acetaminophen dose from all sources = 75 mg/kg/day not to exceed 4 grams/day. $Given 11/15/2023 12:04 PM CDT 650 mg $Given 11/15/2023 2:37 AM CDT 650 mg $Given 11/14/2023 10:58 PM CDT 650 mg acetaminophen (TYLENOL) tablet 650 mg 650 mg, Oral, EVERY 4 HOURS SCHEDULED, First dose (after last modification) on Thu11/15/23 at 1600, Alternate with ibuprofen if ordered. Maximum acetaminophen dose from all sources = 75 mg/kg/day not to exceed 4 grams/day. $Given 11/16/2023 4:30 AM CDT 650 mg $Given 11/16/2023 12:53 AM CDT 650 mg $Given 11/15/2023 8:18 PM CDT 650 mg ALPRAZolam (XANAX) tablet 0.5 mg 0.5 mg, Oral, ONCE, On Thu11/13/23 at 2300, For 1 dose, Avoid taking with grapefruit juice $Given 11/13/2023 11:20 PM CDT 0.5 mg apixaban ANTICOAGULANT (ELIQUIS) tablet 5 mg 5 mg, Oral, 2 TIMES DAILY, First dose on Thu11/14/23 at 2100, Indications: Afib-non valvular $Given 11/16/2023 8:15 AM CDT 5 mg $Given 11/15/2023 8:19 PM CDT 5 mg $Given 11/15/2023 9:15 AM CDT 5 mg atorvastatin (LIPITOR) tablet 40 mg 40 mg, Oral, AT BEDTIME, First dose on Thu11/14/23 at 2200 $Given 11/15/2023 10:30 PM CDT 40 mg $Given 11/14/2023 9:07 PM CDT 40 mg azelastine (ASTELIN) nasal spray 1 spray 1 spray, Both Nostrils, 2 TIMES DAILY, First dose on Thu11/14/23 at 0800, Indications: allergies $Given 11/16/2023 8:34 AM CDT 1 spray $Given 11/15/2023 8:20 PM CDT 1 spray $Given 11/15/2023 9:17 AM CDT 1 spray calcium carbonate (TUMS) chewable tablet 1,000 mg 1,000 mg, Oral, 4 TIMES DAILY PRN, heartburn, Starting on Thu11/13/23 at 1953 $Given 11/16/2023 10:15 AM CDT 1,000 mg $Given 11/16/2023 5:01 AM CDT 1,000 mg $Given 11/15/2023 6:28 AM CDT 1,000 mg capsaicin (ZOSTRIX) 0.025 % cream Topical, 3 TIMES DAILY, First dose on Thu11/15/23 at 1400, Apply to affected area of pain. Please use gloves while applying and do not touch face. $Given 11/15/2023 3:07 PM CDT clonazePAM (klonoPIN) tablet 1 mg 1 mg, Oral, AT BEDTIME, First dose on Thu11/13/23 at 2200 $Given 11/13/2023 10:19 PM CDT 1 mg cyanocobalamin (VITAMIN B-12) tablet 1,000 mcg 1,000 mcg, Oral, EVERY MORNING, First dose on Thu11/14/23 at 0800 $Given 11/16/2023 8:16 AM CDT 1,000 mcg $Given 11/14/2023 9:04 AM CDT 1,000 mcg digoxin (LANOXIN) injection 125 mcg 125 mcg, Intravenous, Administer over 5 Minutes, EVERY 6 HOURS, First dose on Thu11/14/23 at 1230, For 2 doses, Up to 0.5 mg may be given IV Push undiluted over a minimum of 5 minutes. Vesicant. Monitor apical pulse for 60 seconds before giving dose. Hold if pulse is less than 60. $Given 11/14/2023 11:53 PM CDT 125 mc g $Given 11/14/2023 1:20 PM CDT 125 mcg digoxin (LANOXIN) tablet 125 mcg 125 mcg, Oral, EVERY MORNING, First dose on Thu11/14/23 at 0800 $Given 11/14/2023 9:04 AM CDT 125 mcg diltiazem (CARDIZEM) injection 10 mg 10 mg, Intravenous, ONCE, Administer over 2 Minutes, On Thu11/13/23 at 1530, For 1 dose, Irritant. $Given 11/13/2023 3:53 PM CDT 10 mg diltiazem (CARDIZEM) injection 10 mg 10 mg, Intravenous, ONCE, Administer over 2 Minutes, On Thu11/13/23 at 1800, For 1 dose, Irritant. $Given 11/13/2023 6:29 PM CDT 10 mg diltiazem (CARDIZEM) injection 10 mg 10 mg, Intravenous, ONCE, Administer over 2 Minutes, On Thu11/13/23 at 2330, For 1 dose, Irritant. $Given 11/13/2023 11:32 PM CDT 10 mg diltiazem ER [place] (CARDIZEM CD/CARTIA XT) 24 hr capsule 120 mg 120 mg, Oral, DAILY, First dose on Thu11/15/23 at 1130, DO NOT CRUSH. $Given 11/16/2023 8:16 AM CDT 120 mg $Given 11/15/2023 12:03 PM CDT 120 mg diphenhydrAMINE (BENADRYL) capsule 25 mg 25 mg, Oral, ONCE PRN, sleep, Starting on 11/16/23 at 0352, For 1 dose $Given 11/16/2023 4:30 AM CDT 25 mg diphenhydrAMINE (BENADRYL) injection 50 mg 50 mg, Intravenous, ONCE PRN, other, hives, itching, rash, flushing, swollen lips/tongue, or respiratory distress associated with IV iron hypersensitivity., Starting on 11/15/23 at 1044, For 1 dose, Can be given with famotidine. Discontinue when parenteral iron therapy complete. doxycycline hyclate (VIBRAMYCIN) capsule 100 mg Routine, 100 mg, Oral, 2 TIMES DAILY, First dose on 11/14/23 at 0600, Administer at least 2 hours before or after aluminum, calcium, iron, zinc or magnesium containing products., Indications: Skin and Soft Tissue Infection $Given 11/16/2023 10:20 AM CDT 100 mg $Given 11/15/2023 10:30 PM CDT 100 mg $Given 11/15/2023 5:00 AM CDT 100 mg EPINEPHrine (ADRENALIN) kit 0.3 mg 0.3 mg, Intramuscular, EVERY 3 MIN PRN, hypotension or airway obstruction associated with IV iron hypersensitivity, Starting on 11/15/23 at 1044, For 2 doses, Up to a maximum of 2 doses. Administer in the anterior or lateral thigh. Discontinue when IV iron therapy complete. See kit labeling for dosing instructions. Not for direct undiluted intravenous injection (1mg/mL = 1:1000). famotidine (PEPCID) injection 20 mg 20 mg, Intravenous, ONCE PRN, hives, itching, rash associated with IV iron hypersensitivity., Administer over 2 Minutes, Starting on 11/15/23 at 1044, For 1 dose, Can be given with diphenhydramine. Discontinue when parenteral iron therapy complete. For ordered IV doses 1-20 mg, give IV Push diluted with 5-10 mL NS over a minimum of 2 minutes. fluticasone (FLONASE) 50 MCG/ACT spray 1 spray 1 spray, Both Nostrils, 2 TIMES DAILY, First dose on 11/14/23 at 0800 $Given 11/16/2023 8:34 AM CDT 1 spray $Given 11/15/2023 8:20 PM CDT 1 spray $Given 11/15/2023 9:17 AM CDT 1 spray fluticasone-vilanterol (BREO ELLIPTA) 100-25 MCG/ACT inhaler 1 puff 1 puff, Inhalation, DAILY, First dose on 11/14/23 at 0800, This therapy was substituted for Fluticasone salmeterol (ADVAIR DISKUS) 100/50 mcg inhaler 1-2 puffs Daily or BID. Check the dose counter on the inhaler to ensure there are doses remaining before administering. $Given 11/16/2023 8:31 AM CDT 1 puff $Given 11/15/2023 9:17 AM CDT 1 puff $Given 11/14/2023 9:11 AM CDT 1 puff furosemide (LASIX) injection 20 mg 20 mg, Intravenous, EVERY 12 HOURS, Administer over 1-3 Minutes, First dose on 11/14/23 at 1000, For 3 doses $Given 11/15/2023 9:15 AM CDT 20 mg $Given 11/14/2023 11:52 PM CDT 20 mg $Given 11/14/2023 10:41 AM CDT 20 mg HYDROmorphone (DILAUDID) half-tab 1 mg 1 mg, Oral, EVERY 6 HOURS PRN, moderate pain, Starting on 11/14/23 at 2230 $Given 11/16/2023 10:20 AM CDT 1 mg $Given 11/16/2023 12:53 AM CDT 1 mg $Given 11/15/2023 6:09 PM CDT 1 mg HYDROmorphone (DILAUDID) injection 0.2 mg 0.2 mg, Intravenous, EVERY 4 HOURS PRN, moderate pain, Starting on 11/14/23 at 0212 $Given 11/14/2023 10:41 AM CDT 0.2 mg $Given 11/14/2023 6:28 AM CDT 0.2 mg $Given 11/14/2023 2:24 AM CDT 0.2 mg HYDROmorphone (DILAUDID) tablet 2 mg 2 mg, Oral, EVERY 6 HOURS PRN, severe pain, Starting on 11/14/23 at 1610 $Given 11/14/2023 4:33 PM CDT 2 mg HYDROmorphone (PF) (DILAUDID) injection 0.5 mg 0.5 mg, Intravenous, ONCE, On Thu11/13/23 at 1600, For 1 dose $Given 11/13/2023 3:58 PM CDT 0.5 mg HYDROmorphone (PF) (DILAUDID) injection 0.5 mg 0.5 mg, Intravenous, ONCE, On Thu11/13/23 at 1900, For 1 dose $Given 11/13/2023 6:50 PM CDT 0.5 mg iopamidol (ISOVUE-370) solution 75 mL 75 mL, Intravenous, ONCE, On Thu11/13/23 at 1700, For 1 dose $Given 11/13/2023 4:48 PM CDT 75 mLs ipratropium - albuterol 0.5 mg/2.5 mg/3 mL (DUONEB) neb solution 3 mL 3 mL (1 vial), Nebulization, 2 TIMES DAILY, First dose on Thu11/14/23 at 0800 $Given 11/15/2023 8:13 PM CDT 3 mLs $Given 11/14/2023 9:03 PM CDT 3 mLs $Given 11/14/2023 8:47 AM CDT 3 mLs iron dextran complex (INFED) 25 mg in sodium chloride 0.9 % 55.5 mL intermittent infusion (test dose) 25 mg, Intravenous, ONCE, On Thu11/15/23 at 1200, For 1 dose, Administer over 15 Minutes, TEST DOSE:Contact pharmacy to prepare the remainder of dose if no acute reaction 1 hour after test dose. $New Bag 11/15/2023 3:55 PM CDT 25 mg 222 mL/hr iron dextran complex (INFED) 975 mg in sodium chloride 0.9 % 294.5 mL intermittent infusion 975 mg, Intravenous, ONCE, On Thu11/15/23 at 1300, For 1 dose, Administer over 4 Hours, Stop all other infusions while iron dextran infusing. Administer 1 hour AFTER test dose, IF no adverse reaction. Vesicant. $New Bag 11/15/2023 5:59 PM CDT 975 mg 73.6 mL/hr Lidocaine (LIDOCARE) 4 % Patch 1 patch 1 patch, Transdermal, EVERY 24 HOURS 0800, Administer over 12 Hours, First dose on Thu11/16/23 at 0800, Apply patch(s) to area of pain. To prevent lidocaine toxicity, patient should be patch free for 12 hrs daily. Patches may be cut to smaller size prior to removing release liner. Reminder: Remove previous patch before applying new patch. NEVER APPLY HEAT OVER PATCH which increases absorption and may lead to local anesthetic toxicity. Do not apply over area where liposomal bupivacaine was injected for 96 hours post injection. $Patch/Med Applied 11/16/2023 8:27 AM CDT 1 patch Other (see comments) lidocaine (LMX4) cream Topical, EVERY 1 HOUR PRN, pain, with VAD insertion, Starting on Thu11/13/23 at 1953, Apply at least 30 minutes prior to VAD insertion in divided doses as needed for size of site for insertion. MAX Dose: 2.5 g (?? of 5 g tube) Do NOT give if patient has a history of allergy to any local anesthetic or any rashi product. Do NOT use both lidocaine intradermal/subcutaneo us injection and the lidocaine cream on the same site. lidocaine 1 % 0.1-1 mL 0.1-1 mL, Other, EVERY 1 HOUR PRN, mild pain with VAD insertion, Starting on Thu11/13/23 at 1953, MAX dose 1 mL subcutaneous OR intradermal along the side of the vein in divided doses as needed for VAD insertion. Do NOT give if patient has a history of allergy to any local anesthetic or any rashi product. Do NOT use both lidocaine intradermal/subcutaneo us injection and the lidocaine cream on the same site. lisinopril (ZESTRIL) tablet 10 mg 10 mg, Oral, EVERY MORNING, First dose on Thu11/14/23 at 0800, On hold since Thu11/14/2023 at 0919 until manually unheld $Given 11/14/2023 9:00 AM CDT 10 mg loratadine (CLARITIN) tablet 10 mg 10 mg, Oral, EVERY MORNING, First dose on Thu11/14/23 at 0800 $Given 11/16/2023 8:16 AM CDT 10 mg $Given 11/15/2023 9:15 AM CDT 10 mg $Given 11/14/2023 9:04 AM CDT 10 mg LORazepam (ATIVAN) tablet 0.5 mg 0.5 mg, Oral, AT BEDTIME PRN, anxiety, agitation, Starting on Thu11/14/23 at 1555 $Given 11/15/2023 8:58 PM CD T 0.5 mg $Given 11/14/2023 8:35 PM CDT 0.5 mg magnesium sulfate 2 g in 50 mL sterile water intermittent infusion 2 g, Intravenous, Administer over 30 Minutes, at 100 mL/hr, ONCE, On Thu11/13/23 at 1530, For 1 dose $New Bag 11/13/2023 3:59 PM CDT 2 g 100 mL/hr methylPREDNISolone sodium succinate (solu-MEDROL) injection 125 mg 125 mg, Intravenous, Administer over 2 Minutes, ONCE PRN, respiratory distress associated with hypersensitivity reaction to iron., Starting on Thu11/15/23 at 1044, For 1 dose, Discontinue when parenteral iron therapy complete. metoprolol tartrate (LOPRESSOR) tablet 100 mg 100 mg, Oral, 2 TIMES DAILY, First dose (after last modification) on Thu11/15/23 at 0900, Tablets can be crushed and given via enteral route. Hold for SBP < 90 $Given 11/16/2023 8:16 AM CDT 100 mg $Given 11/15/2023 8:19 PM CDT 100 mg $Given 11/15/2023 9:15 AM CDT 100 mg metoprolol tartrate (LOPRESSOR) tablet 50 mg 50 mg, Oral, EVERY 6 HOURS, First dose (after last modification) on Thu11/14/23 at 1000, Tablets can be crushed and given via enteral route. Hold for SBP < 90 $Given 11/15/2023 5:00 AM CDT 50 mg $Given 11/14/2023 9:07 PM CDT 50 mg $Given 11/14/2023 4:33 PM CDT 50 mg metroNIDAZOLE (METROCREAM) 0.75 % cream Topical, 2 TIMES DAILY, First dose on Thu11/14/23 at 0800, Apply to vaginal area $Given 11/14/2023 8:36 PM CDT mupirocin (BACTROBAN) 2 % ointment Topical, DAILY, First dose on Thu11/14/23 at 0800, Apply to any open sores $Given 11/14/2023 9:10 AM CDT Right Arm nicotine (COMMIT) lozenge 2 mg 2 mg, Buccal, EVERY 1 HOUR PRN, nicotine withdrawal symptoms, Starting on Thu11/13/23 at 2008, Allow lozenge to dissolve slowly. Do not swallow. Not to exceed 40 mg in a 24 hour time period. $Given 11/15/2023 9:27 AM CDT 2 mg $Given 11/13/2023 11:21 PM CDT 2 mg ondansetron (ZOFRAN) tablet 4 mg 4 mg, Oral, EVERY 6 HOURS PRN, nausea, vomiting, Starting on 11/16/23 at 1207 $Given 11/16/2023 12:32 PM CDT 4 mg pantoprazole (PROTONIX) EC tablet 40 mg 40 mg, Oral, EVERY MORNING, First dose on 11/14/23 at 0800, Formulary sub for omeprazole $Given 11/16/2023 8:16 AM CDT 40 mg $Given 11/15/2023 6:28 AM CDT 40 mg $Given 11/14/2023 9:00 AM CDT 40 mg Patient is already receiving anticoagulation with heparin, enoxaparin (LOVENOX), warfarin (COUMADIN) or other anticoagulant medication CONTINUOUS PRN, Starting on Thu11/13/23 at 2008, Until Thu11/16/23 at 1535 perflutren lipid microsphere (DEFINITY) injection SUSP 4 mL 4 mL, Intravenous, ONCE, On 11/14/23 at 1300, For 1 dose $Given 11/14/2023 12:37 PM CDT 4 mLs senna-docusate (SENOKOT-S/PERICOLACE) 8.6-50 MG per tablet 1 tablet 1 tablet, Oral, 2 TIMES DAILY, First dose on 11/14/23 at 0800, Hold for loose stools. $Given 11/15/2023 10:29 PM CDT 1 tablet $Given 11/14/2023 8:35 PM CDT 1 tablet $Given 11/14/2023 9:05 AM CDT 1 tablet sertraline (ZOLOFT) tablet 200 mg 200 mg, Oral, EVERY MORNING, First dose on 11/14/23 at 0800 $Given 11/16/2023 8:15 AM CDT 200 mg $Given 11/15/2023 9:15 AM CDT 200 mg $Given 11/14/2023 9:00 AM CDT 200 mg simethicone (MYLICON) chewable tablet 80 mg 80 mg, Oral, EVERY 6 HOURS PRN, cramping, Starting on Thu11/15/23 at 0936 $Given 11/16/2023 11:09 AM CDT 80 mg $Given 11/16/2023 5:01 AM CDT 80 mg $Given 11/15/2023 9:48 AM CDT 80 mg sodium chloride (PF) 0.9% PF flush 3 mL 3 mL, Intracatheter, EVERY 8 HOURS, First dose on Thu11/13/23 at 2030, to lock peripheral IV dormant line $Given 11/16/2023 8:30 AM CDT 3 mLs $Given 11/16/2023 12:59 AM CDT 3 mLs $Given 11/15/2023 3:42 PM CDT 3 mLs sodium chloride (PF) 0.9% PF flush 3 mL 3 mL, Intracatheter, EVERY 1 MIN PRN, line flush, other, to ensure patency or to lock dormant line, Starting on Thu11/13/23 at 1953 SUMAtriptan (IMITREX) tablet 25 mg 25 mg, Oral, ONCE, On Thu11/13/23 at 2330, For 1 dose, May repeat dose in 2 hours if no relief. Do not exceed 2 doses in 24 hours. $Given 11/13/2023 11:53 PM C DT 25 mg tacrolimus (PROTOPIC) 0.1 % ointment Topical, 2 TIMES DAILY, First dose on Thu11/14/23 at 0800, Apply to affected area $Given 11/15/2023 8:48 PM CDT $Given 11/15/2023 9:28 AM CDT $Given 11/14/2023 8:37 PM CDT thiamine (B-1) injection 250 mg 250 mg, Intravenous, DAILY, First dose on Thu11/16/23 at 0800, For 5 doses $Given 11/16/2023 8:16 AM CDT 250 mg thiamine (B-1) injection 500 mg 500 mg, Intravenous, 3 TIMES DAILY, First dose on Thu11/13/23 at 2130, For 6 doses $Given 11/15/2023 3:41 PM CDT 500 mg $Given 11/15/2023 9:28 AM CDT 500 mg $Given 11/14/2023 11:52 PM CDT 500 mg thiamine (B-1) tablet 100 mg 100 mg, Oral, DAILY, First dose on Thu11/21/23 at 0800 torsemide (DEMADEX) tablet 20 mg 20 mg, Oral, DAILY, First dose on Thu11/14/23 at 0800, On hold since Thu11/14/2023 at 0932 until manually unheld $Given 11/14/2023 9:06 AM CDT 20 mg triamcinolone (KENALOG) 0.1 % cream Topical, 2 TIMES DAILY, First dose on 11/14/23 at 0800, Apply to affected area $Given 11/15/2023 8:44 PM CDT $Given 11/14/2023 8:37 PM CDT warfarin ANTICOAGULANT (COUMADIN) tablet 3 mg 3 mg, Oral, ONCE AT 6PM, On Thu11/13/23 at 2230, For 1 dose $Given 11/13/2023 11:21 PM CDT 3 mg documented in this encounter Active and Recently Administered Medications Times are shown in CDT. Scheduled Medication Order 11/14/2023 11/15/2023 11/16/2023 acetaminophen (TYLENOL) Suppository 650 mg(Linked Group 1) 650 mg, Rectal, EVERY 4 HOURS SCHEDULED, First dose (after last modification) on 11/15/23 at 1600, Alternate with ibuprofen if ordered. Maximum acetaminophen dose from all sources = 75 mg/kg/day not to exceed 4 grams/day. 1538 (See Alternative - Provider: Amparo Jenkins RN)2017 (See Alternative - Provider: Dean Cano RN) 0053 (See Alternative - Provider: Laurel Bell RN)0430 (See Alternative - Provider: Laurel Bell RN)0814 (See Alternative - Provider: Rhonda Dee, RAQUEL)1110 (See Alternative - Provider: Rhonda Dee, RAQUEL) acetaminophen (TYLENOL) tablet 650 mg(Linked Group 1) 650 mg, Oral, EVERY 4 HOURS SCHEDULED, First dose (after last modification) on 11/15/23 at 1600, Alternate with ibuprofen if ordered. Maximum acetaminophen dose from all sources = 75 mg/kg/day not to exceed 4 grams/day. 1538 ($Given - Provider: Amparo Jenkins RN)2017 ($Given - Provider: Dean Cano RN) 0053 ($Given - Provider: Laurel Bell RN)0430 ($Given - Provider: Laurel Bell RN)0814 (Not Given - Provider: Rhonda Dee RN - Reason: Patient/family refused - Comment: States gave her an upset stomach)1110 (Not Given - Provider: Rhonda Dee, RAQUEL - Reason: Patient/family refused) apixaban ANTICOAGULANT (ELIQUIS) tablet 5 mg 5 mg, Oral, 2 TIMES DAILY, First dose on 11/14/23 at 2100, Indications: Afib-non valvular 2034 ($Given - Provider: Wen Jenkins, RAQUEL) 0915 ($Given - Provider: Amparo Jenkins RN)2019 ($Given - Provider: Dean Cano RN) 0815 ($Given - Provider: Rhonda Dee, RAQUEL) atorvastatin (LIPITOR) tablet 40 mg 40 mg, Oral, AT BEDTIME, First dose on 11/14/23 at 2200 2107 ($Given - Provider: Wen Jenkins RN) 2230 ($Given - Provider: Dean Cano RN) azelastine (ASTELIN) nasal spray 1 spray 1 spray, Both Nostrils, 2 TIMES DAILY, First dose on 11/14/23 at 0800, Indications: allergies 0916 ($Given - Provider: Beatriz Hebert RN)2035 ($Given - Provider: Wen Jenkins RN) 0917 ($Given - Provider: Amparo Jenkins RN)2019 ($Given - Provider: Dean Cano RN) 0834 ($Given - Provider: Rhonda Dee, RAQUEL) capsaicin (ZOSTRIX) 0.025 % cream Topical, 3 TIMES DAILY, First dose on Thu11/15/23 at 1400, Apply to affected area of pain. Please use gloves while applying and do not touch face. 1507 ($Given - Provider: Amparo Jenkins RN)2026 (Not Given - Provider: Dean Cano RN - Reason: Patient/family refused - Comment: pt thinks it makes her itchy) 0836 (Not Given - Provider: Rhonda Dee RN - Reason: Patient/family refused)1400 (Canceled Entry - Provider: Orders Generic Provider - Comment: Automatically canceled at discontinue of medication order) cyanocobalamin (VITAMIN B-12) tablet 1,000 mcg 1,000 mcg, Oral, EVERY MORNING, First dose on 11/14/23 at 0800 0904 ($Given - Provider: Beatriz Hebert RN) 0907 (Not Given - Provider: Amparo Jenkins RN - Reason: Patient/family refused) 0816 ($Given - Provider: Rhonda Dee, RAQUEL) digoxin (LANOXIN) injection 125 mcg (COMPLETED) 125 mcg, Intravenous, Administer over 5 Minutes, EVERY 6 HOURS, First dose on 11/14/23 at 1230, For 2 doses, Up to 0.5 mg may be given IV Push undiluted over a minimum of 5 minutes. Vesicant. Monitor apical pulse for 60 seconds before giving dose. Hold if pulse is less than 60. 1320 ($Given - Provider: Beatriz Hebert RN)2353 ($Given - Provider: Wen Jenkins RN - Comment: Lost IV access) digoxin (LANOXIN) tablet 125 mcg (CANCELED) 125 mcg, Oral, EVERY MORNING, First dose on 11/14/23 at 0800 0904 ($Given - Provider: Beatriz Hebert RN) diltiazem ER COATED BEADS (CARDIZEM CD/CARTIA XT) 24 hr capsule 120 mg 120 mg, Oral, DAILY, First dose on 11/15/23 at 1130, DO NOT CRUSH. 1203 ($Given - Provider: Amparo Jenkins RN) 0816 ($Given - Provider: Rhonda Dee, RAQUEL) doxycycline hyclate (VIBRAMYCIN) capsule 100 mg Routine, 100 mg, Oral, 2 TIMES DAILY, First dose on 11/14/23 at 0600, Administer at least 2 hours before or after aluminum, calcium, iron, zinc or magnesium containing products., Indications: Skin and Soft Tissue Infection 0628 ($Given - Provider: Amparo Hernández, RAQUEL)1826 ($Given - Provider: Belkys Brown RN) 0500 ($Given - Provider: Wen Jenkins RN)2230 ($Given - Provider: Dean Cano, RAQUEL) 1020 ($Given - Provider: Rhonda Dee, RAQUEL) fluticasone (FLONASE) 50 MCG/ACT spray 1 spray 1 spray, Both Nostrils, 2 TIMES DAILY, First dose on 11/14/23 at 0800 0914 ($Given - Provider: Beatriz Hebert RN)2037 ($Given - Provider: Wen Jenkins, RAQUEL) 0917 ($Given - Provider: Amparo Jenkins, RAQUEL)2019 ($Given - Provider: Dean Cano, RAQUEL) 0834 ($Given - Provider: Rhonda Dee, RAQUEL) fluticasone-vilanterol (BREO ELLIPTA) 100-25 MCG/ACT inhaler 1 puff 1 puff, Inhalation, DAILY, First dose on 11/14/23 at 0800, This therapy was substituted for Fluticasone salmeterol (ADVAIR DISKUS) 100/50 mcg inhaler 1-2 puffs Daily or BID. Check the dose counter on the inhaler to ensure there are doses remaining before administering. 0911 ($Given - Provider: Beatriz Hebert RN) 0917 ($Given - Provider: Amparo Jenkins RN) 0831 ($Given - Provider: Rhonda Dee RN) furosemide (LASIX) injection 20 mg (COMPLETED) 20 mg, Intravenous, EVERY 12 HOURS, Administer over 1-3 Minutes, First dose on 11/14/23 at 1000, For 3 doses 1041 ($Given - Provider: Beatriz Hebert RN)2352 ($Given - Provider: eWn Jenkins RN) 0915 ($Given - Provider: Amparo Jenkins RN) ipratropium - albuterol 0.5 mg/2.5 mg/3 mL (DUONEB) neb solution 3 mL 3 mL (1 vial), Nebulization, 2 TIMES DAILY, First dose on 11/14/23 at 0800 0847 ($Given - Provider: Nora Griffin, RT)2103 ($Given - Provider: Jovon Warner, RT) 0831 (Not Given - Provider: RT Taylor - Reason: Other - Comment: pt declined, is nauseatedwill call if needed)2012 ($Given - Provider: Russ Stewart, RT) 0836 (Not Given - Provider: Rhonda Dee RN - Reason: Patient/family refused) iron dextran complex (INFED) 25 mg in sodium chloride 0.9 % 55.5 mL intermittent infusion (test dose) (COMPLETED) 25 mg, Intravenous, ONCE, On 11/15/23 at 1200, For 1 dose, Administer over 15 Minutes, TEST DOSE:Contact pharmacy to prepare the remainder of dose if no acute reaction 1 hour after test dose. 1552 ($New Bag - Provider: Amparo Jenkins RN - Comment: started at this time) iron dextran complex (INFED) 975 mg in sodium chloride 0.9 % 294.5 mL intermittent infusion (COMPLETED) 975 mg, Intravenous, ONCE, On 11/15/23 at 1300, For 1 dose, Administer over 4 Hours, Stop all other infusions while iron dextran infusing. Administer 1 hour AFTER test dose, IF no adverse reaction. Vesicant. 6022 ($New Bag - Provider: Amparo Jenkins RN) Lidocaine (LIDOCARE) 4 % Patch 1 patch 1 patch, Transdermal, EVERY 24 HOURS 0800, Administer over 12 Hours, First dose on Thu11/16/23 at 0800, Apply patch(s) to area of pain. To prevent lidocaine toxicity, patient should be patch free for 12 hrs daily. Patches may be cut to smaller size prior to removing release liner. Reminder: Remove previous patch before applying new patch. NEVER APPLY HEAT OVER PATCH which increases absorption and may lead to local anesthetic toxicity. Do not apply over area where liposomal bupivacaine was injected for 96 hours post injection. 0827 ($Patch/Med Applied - Provider: Rhonda Dee RN - Comment: mid lower back)1334 (Due: Patch/Med Removed - Provider: Orders Generic Provider - Comment: Time automatically adjusted from order being discontinued) lisinopril (ZESTRIL) tablet 10 mg (CANCELED) 10 mg, Oral, EVERY MORNING, First dose on 11/14/23 at 0800, On hold since 11/14/2023 at 0919 until manually unheld 0900 ($Given - Provider: Beatriz Hebert RN)0919 (Held by provider - Provider: Lisandra Quinn MD - Reason: Change in Vitals) 0800 (Automatically Held - Provider: Lisandra Quinn MD)1111 (Unheld by provider - Provider: Lisandra Quinn MD) loratadine (CLARITIN) tablet 10 mg 10 mg, Oral, EVERY MORNING, First dose on 11/14/23 at 0800 0904 ($Given - Provider: Beatriz Hebert RN) 0915 ($Given - Provider: Amparo Jenkins, RAQUEL) 0816 ($Given - Provider: Rhonda Dee, RAQUEL) metoprolol tartrate (LOPRESSOR) tablet 100 mg 100 mg, Oral, 2 TIMES DAILY, First dose (after last modification) on 11/15/23 at 0900, Tablets can be crushed and given via enteral route. Hold for SBP < 90 0915 ($Given - Provider: Amparo Jenkins, RAQUEL)2019 ($Given - Provider: Dean Cano RN) 0816 ($Given - Provider: Rhonda Dee, RAQUEL) metoprolol tartrate (LOPRESSOR) tablet 50 mg (CANCELED) 50 mg, Oral, EVERY 6 HOURS, First dose (after last modification) on 11/14/23 at 1000, Tablets can be crushed and given via enteral route. Hold for SBP < 90 1041 ($Given - Provider: Beatriz Hebert RN)1633 ($Given - Provider: Belkys Brown RN)2107 ($Given - Provider: Wen Jenkins RN) 0500 ($Given - Provider: Wen Jenkins RN) metroNIDAZOLE (METROCREAM) 0.75 % cream Topical, 2 TIMES DAILY, First dose on 11/14/23 at 0800, Apply to vaginal area 0917 (Not Given - Provider: Beatriz Hebert RN - Reason: Patient/family refused)2035 ($Given - Provider: Wen Jenkins RN) 1117 (Not Given - Provider: Amparo Jenkins RN - Reason: Patient/family refused)2022 (Not Given - Provider: Dean Cano RN - Reason: Patient/family refused - Comment: pt refused) 0836 (Not Given - Provider: Rhonda Dee RN - Reason: Patient/family refused) mupirocin (BACTROBAN) 2 % ointment Topical, DAILY, First dose on 11/14/23 at 0800, Apply to any open sores 0910 ($Given - Provider: Beatriz Hebert RN) 1118 (Not Given - Provider: Amparo Jenkins RN - Reason: Patient/family refused) 0837 (Not Given - Provider: Rhonda Dee RN - Reason: Patient/family refused) pantoprazole (PROTONIX) EC tablet 40 mg 40 mg, Oral, EVERY MORNING, First dose on 11/14/23 at 0800, Formulary sub for omeprazole 0900 ($Given - Provider: Beatriz Hebert RN) 0628 ($Given - Provider: Wen Jenkins RN) 0816 ($Given - Provider: Rhonda Dee RN) perflutren lipid microsphere (DEFINITY) injection SUSP 4 mL (COMPLETED) 4 mL, Intravenous, ONCE, On 11/14/23 at 1300, For 1 dose 1237 ($Given - Provider: Carmen Ortega) polyethylene glycol (MIRALAX) Packet 17 g 17 g, Oral, EVERY MORNING, First dose on 11/14/23 at 0800, 1 Packet = 17 grams. Mix each gram with at least 1/2 ounce (15 mL) of water - 8 ounces for 17 g dose, 4 ounces for 8.5 g dose, 2 ounces for 4 g dose. Follow with the same volume of water. Hold for loose stools unless being administered as part of a bowel prep regimen or bowel clean out. 0917 (Not Given - Provider: Beatriz Hebert RN - Reason: Patient/family refused) 0907 (Not Given - Provider: Amparo Jenkins RN - Reason: Other - Comment: loose stools) 0831 (Not Given - Provider: Rhonda Dee RN - Reason: Patient/family refused - Comment: Had a BM at 5am this morning) senna-docusate (SENOKOT-S/PERICOLACE) 8.6-50 MG per tablet 1 tablet 1 tablet, Oral, 2 TIMES DAILY, First dose on 11/14/23 at 0800, Hold for loose stools. 0905 ($Given - Provider: Beatriz Hebert RN)203 ($Given - Provider: Wen Jenkins RN) 0908 (Not Given - Provider: Amparo Jenkins RN - Reason: Other - Comment: loose stools)2229 ($Given - Provider: Dean Cano RN - Comment: pt wanted it with bedtime meds) 0816 (Not Given - Provider: Rhonda Dee RN - Reason: Patient/family refused) sertraline (ZOLOFT) tablet 200 mg 200 mg, Oral, EVERY MORNING, First dose on 11/14/23 at 0800 0900 ($Given - Provider: Beatriz Hebert RN) 0915 ($Given - Provider: Amparo Jenkins RN) 0815 ($Given - Provider: Rhonda Dee RN) sodium chloride (PF) 0.9% PF flush 3 mL 3 mL, Intracatheter, EVERY 8 HOURS, First dose on Thu11/13/23 at 2030, to lock peripheral IV dormant line 0918 ($Given - Provider: Beatriz Hebert RN)1638 (Canceled Entry - Provider: Belkys Brown RN)2352 ($Given - Provider: Wen Jenkins RN) 0928 ($Given - Provider: Amparo Jenkins, RAQUEL)1542 ($Given - Provider: Amparo Jenkins, RAQUEL) 0059 ($Given - Provider: Laurel Bell RN)0830 ($Given - Provider: Rhonda Dee RN) tacrolimus (PROTOPIC) 0.1 % ointment Topical, 2 TIMES DAILY, First dose on 11/14/23 at 0800, Apply to affected area 0909 ($Given - Provider: Beatriz Hebert RN)2036 ($Given - Provider: Wen Jenkins RN) 0928 ($Given - Provider: Amparo Jenkins, RAQUEL)204 ($Given - Provider: Dean Cano, RAQUEL) 0837 (Not Given - Provider: Rhonda Dee RN - Reason: Patient/family refused) thiamine (B-1) injection 250 mg(Linked Group 2) 250 mg, Intravenous, DAILY, First dose on Thu11/16/23 at 0800, For 5 doses 0816 ($Given - Provider: Rhonda Dee RN) thiamine (B-1) injection 500 mg (COMPLETED)(Linked Group 2) 500 mg, Intravenous, 3 TIMES DAILY, First dose on Thu11/13/23 at 2130, For 6 doses 0918 ($Given - Provider: Beatriz Hebert RN)1318 ($Given - Provider: Beatriz Hebert RN)2352 ($Given - Provider: Wen Jenkins RN - Comment: Lost IV access) 0928 ($Given - Provider: Amparo Jenkins, RAQUEL)1541 ($Given - Provider: Amparo Jenkins RN) thiamine (B-1) tablet 100 mg(Linked Group 2) 100 mg, Oral, DAILY, First dose on 11/21/23 at 0800 torsemide (DEMADEX) tablet 20 mg 20 mg, Oral, DAILY, First dose on Thu11/14/23 at 0800, On hold since Thu11/14/2023 at 0932 until manually unheld 0906 ($Given - Provider: Beatriz Hebert RN)0932 (Held by provider - Provider: Lisandra Quinn MD - Reason: Other - Comment: While on IV furosemide) 0800 (Automatically Held - Provider: Lisandra Quinn MD) 0800 (Automatically Held - Provider: Lisandra Quinn MD)1535 (Unheld by provider - Provider: Orders Generic Provider) triamcinolone (KENALOG) 0.1 % cream Topical, 2 TIMES DAILY, First dose on Thu11/14/23 at 0800, Apply to affected area 0921 (Not Given - Provider: Beatriz Hebert RN - Reason: Patient/family refused)2036 ($Given - Provider: Wen Jenkins RN) 1118 (Not Given - Provider: Amparo Jenkins RN - Reason: Patient/family refused)2043 ($Given - Provider: Dean Cano RN - Comment: arms) 0837 (Not Given - Provider: Rhonda Dee RN - Reason: Patient/family refused) PRN Medication Order 11/14/2023 11/15/2023 11/16/2023 acetaminophen (TYLENOL) tablet 650 mg (CANCELED) 650 mg, Oral, EVERY 4 HOURS PRN, mild pain, other, and adjunct with moderate or severe pain or per patient request, Starting on Thu11/13/23 at 2008, Alternate with ibuprofen if ordered. Maximum acetaminophen dose from all sources = 75 mg/kg/day not to exceed 4 grams/day. 2258 ($Given - Provider: Wen Jenkins RN) 0237 ($Given - Provider: Meg Nunez RN)0628 (Not Given - Provider: Wen Jenkins RN - Reason: Patient/family refused)1204 ($Given - Provider: Amparo Jenkins RN) albuterol (PROVENTIL HFA/VENTOLIN HFA) inhaler 2 puff, Inhalation, EVERY 6 HOURS PRN, wheezing, shortness of breath, Starting on 11/14/23 at 0118, Check the dose counter on the inhaler to ensure there are doses remaining before administering. Prime by spraying into the air 4 times prior to first use and if not used within 2 weeks. calcium carbonate (TUMS) chewable tablet 1,000 mg 1,000 mg, Oral, 4 TIMES DAILY PRN, heartburn, Starting on Thu11/13/23 at 1953 0628 ($Given - Provider: Wen Jenkins RN) 0501 ($Given - Provider: Laurel Bell, RAQUEL)1015 ($Given - Provider: Rhonda Dee RN) clobetasol propionate (TEMOVATE) 0.05 % cream Topical, 2 TIMES DAILY PRN, dry feet, Starting on 11/14/23 at 0118, Apply to feet diphenhydrAMINE (BENADRYL) capsule 25 mg (COMPLETED) 25 mg, Oral, ONCE PRN, sleep, Starting on 11/16/23 at 0352, For 1 dose 0430 ($Given - Provider: Laurel Bell, RAQUEL) diphenhydrAMINE (BENADRYL) injection 50 mg 50 mg, Intravenous, ONCE PRN, other, hives, itching, rash, flushing, swollen lips/tongue, or respiratory distress associated with IV iron hypersensitivity., Starting on 11/15/23 at 1044, For 1 dose, Can be given with famotidine. Discontinue when parenteral iron therapy complete. EPINEPHrine (ADRENALIN) kit 0.3 mg 0.3 mg, Intramuscular, EVERY 3 MIN PRN, hypotension or airway obstruction associated with IV iron hypersensitivity, Starting on 11/15/23 at 1044, For 2 doses, Up to a maximum of 2 doses. Administer in the anterior or lateral thigh. Discontinue when IV iron therapy complete. See kit labeling for dosing instructions. Not for direct undiluted intravenous injection (1mg/mL = 1:1000). famotidine (PEPCID) injection 20 mg 20 mg, Intravenous, ONCE PRN, hives, itching, rash associated with IV iron hypersensitivity., Administer over 2 Minutes, Starting on 11/15/23 at 1044, For 1 dose, Can be given with diphenhydramine. Discontinue when parenteral iron therapy complete. For ordered IV doses 1-20 mg, give IV Push diluted with 5-10 mL NS over a minimum of 2 minutes. hydrocortisone (Perianal) (ANUSOL-HC) 2.5 % cream Rectal, 2 TIMES DAILY PRN, hemorrhoids, Starting on 11/14/23 at 0116 HYDROmorphone (DILAUDID) half-tab 1 mg 1 mg, Oral, EVERY 6 HOURS PRN, moderate pain, Starting on 11/14/23 at 2230 2250 ($Given - Provider: Wen Jenkins RN) 0500 ($Given - Provider: Wen Jenkins RN)1203 ($Given - Provider: Amparo Jenkins RN)1809 ($Given - Provider: Amparo Jenkins RN) 0053 ($Given - Provider: Laurel Bell RN)1020 ($Given - Provider: Rhonda Dee RN) HYDROmorphone (DILAUDID) injection 0.2 mg (CANCELED) 0.2 mg, Intravenous, EVERY 4 HOURS PRN, moderate pain, Starting on 11/14/23 at 0212 0224 ($Given - Provider: Amparo Hernández, RAQUEL)0628 ($Given - Provider: Amparo Hernández, RAQUEL)1041 ($Given - Provider: Beatriz Hebert RN - Comment: forgot to scan) HYDROmorphone (DILAUDID) tablet 2 mg (CANCELED) 2 mg, Oral, EVERY 6 HOURS PRN, severe pain, Starting on 11/14/23 at 1610 1633 ($Given - Provider: Belkys Brown RN) lidocaine (LMX4) cream Topical, EVERY 1 HOUR PRN, pain, with VAD insertion, Starting on Thu11/13/23 at 1953, Apply at least 30 minutes prior to VAD insertion in divided doses as needed for size of site for insertion. MAX Dose: 2.5 g (?? of 5 g tube) Do NOT give if patient has a history of allergy to any local anesthetic or any rashi product. Do NOT use both lidocaine intradermal/subcutaneous injection and the lidocaine cream on the same site. lidocaine 1 % 0.1-1 mL 0.1-1 mL, Other, EVERY 1 HOUR PRN, mild pain with VAD insertion, Starting on Thu11/13/23 at 1953, MAX dose 1 mL subcutaneous OR intradermal along the side of the vein in divided doses as needed for VAD insertion. Do NOT give if patient has a history of allergy to any local anesthetic or any rashi product. Do NOT use both lidocaine intradermal/subcutaneous injection and the lidocaine cream on the same site. LORazepam (ATIVAN) tablet 0.5 mg 0.5 mg, Oral, AT BEDTIME PRN, anxiety, agitation, Starting on Thu11/14/23 at 1555 2035 ($Given - Provider: Wen Jenkins RN) 2057 ($Given - Provider: Dean Cano RN) methylPREDNISolone sodium succinate (solu-MEDROL) injection 125 mg 125 mg, Intravenous, Administer over 2 Minutes, ONCE PRN, respiratory distress associated with hypersensitivity reaction to iron., Starting on Thu11/15/23 at 1044, For 1 dose, Discontinue when parenteral iron therapy complete. naloxone (NARCAN) nasal spray 4 mg 4 mg, Alternating Nostrils, ONCE PRN, opioid reversal, Starting on 11/14/23 at 0123, For 1 dose, Place and hold the tip of the nozzle in either nostril until your fingers touch the bottom of the patient's nose. Press the plunger firmly to release the dose into the patient's nose. nicotine (COMMIT) lozenge 2 mg 2 mg, Buccal, EVERY 1 HOUR PRN, nicotine withdrawal symptoms, Starting on Thu11/13/23 at 2008, Allow lozenge to dissolve slowly. Do not swallow. Not to exceed 40 mg in a 24 hour time period. 926 ($Given - Provider: Amparo Jenkins RN) ondansetron (ZOFRAN) tablet 4 mg 4 mg, Oral, EVERY 6 HOURS PRN, nausea, vomiting, Starting on Thu11/16/23 at 1207 1232 ($Given - Provider: Rhonda Dee, RAQUEL) Patient is already receiving anticoagulation with heparin, enoxaparin (LOVENOX), warfarin (COUMADIN) or other anticoagulant medication CONTINUOUS PRN, Starting on Thu11/13/23 at 2008, Until Thu11/16/23 at 1535 simethicone (MYLICON) chewable tablet 80 mg 80 mg, Oral, EVERY 6 HOURS PRN, cramping, Starting on Thu11/15/23 at 0936 0948 ($Given - Provider: Amparo Jenkins RN) 0501 ($Given - Provider: Laurel Bell RN)1109 ($Given - Provider: Rhonda Dee, RAQUEL) sodium chloride (PF) 0.9% PF flush 3 mL 3 mL, Intracatheter, EVERY 1 MIN PRN, line flush, other, to ensure patency or to lock dormant line, Starting on Thu11/13/23 at 1953 SUMAtriptan (IMITREX) tablet 50 mg 50 mg, Oral, AT ONSET OF HEADACHE, migraine, Starting on Thu11/14/23 at 0112, May repeat dose in 2 hours if no relief. Do not exceed 2 doses in 24 hours. Linked Groups Order Group 1: acetaminophen (TYLENOL) tablet 650 mgJump to med 650 mg, Oral, EVERY 4 HOURS SCHEDULED, First dose (after last modification) on Thu11/15/23 at 1600, Alternate with ibuprofen if ordered. Maximum acetaminophen dose from all sources = 75 mg/kg/day not to exceed 4 grams/day. Or acetaminophen (TYLENOL) Suppository 650 mgJump to med 650 mg, Rectal, EVERY 4 HOURS SCHEDULED, First dose (after last modification) on Thu11/15/23 at 1600, Alternate with ibuprofen if ordered. Maximum acetaminophen dose from all sources = 75 mg/kg/day not to exceed 4 grams/day. Group 2: thiamine (B-1) injection 500 mg (COMPLETED)Jump to med 500 mg, Intravenous, 3 TIMES DAILY, First dose on Thu11/13/23 at 2130, For 6 doses Followed by thiamine (B-1) injection 250 mgJump to med 250 mg, Intravenous, DAILY, First dose on 11/16/23 at 0800, For 5 doses Followed by thiamine (B-1) tablet 100 mgJump to med 100 mg, Oral, DAILY, First dose on 11/21/23 at 0800 documented in this encounter Care Teams Permastone Applicator Relationship Specialty Start Date End Date Nelson Townsend [address] [facility] [address] [place], [place] [address] PCP - General 03/30/20 Celia Kumar MD [address] [facility] 195 [place] [address] Plastic Surgery 04/20/15 Charan Corbin MD 420 [facility] 101 [place] [address] INTERNAL MEDICINE - ENDOCRINOLOGY, DIABETES & METABOLISM 06/19/15 [place] [address] [place] [address] Assigned PCP 03/21/21 Greta Thao APRN CONGRESSIONAL DISTRICT AIDE [facility] [place] [address] [place] [address] Nurse Practitioner Cardiology 06/09/23 Greta Thao APRN CONGRESSIONAL DISTRICT AIDE [facility] [place] [address] [place] [address] Assigned Heart and Vascular Provider 06/25/23 documented as of this encounter
--- OUTSIDE RECORDS SUMMARY | 2023-11-30 08:40 | XMS_ITS | Encounter Summary ---
Author Organization [facility] Address [address] [place] [address] Care Team Providers Care Television Schedule Coordinator Name Role Phone Celia Kumar Fortino Garcia MD Unavailable [phone] Charan Corbin MD Unavailable [phone] Adams Barrera Primary Care Provider [phone] Deborah Walsh MD Unavailable Greta Thao APRN MANAGER CRISIS Unavailable [phone] Greta Thao APRN MANAGER CRISIS Unavailable [phone] Reason for Visit * Reason Onset Date Comments Injection Inquiry 10/15/2023 Encounter Details Date Type Department Care Team (Late st Contact Info) Description 10/15/[address] [facility] Management [address] [place] [address] [place] [address] [place] [address] Injection Inquiry Social History Tobacco Use [...] often do you attend chur ch or orthodox services? More than 4 times per year 07/05/2021 Do you belong to any clubs o r organizations such as anabaptist groups, unions, fraternal or athletic groups, or [...] Answer Date Recorded PHQ-2 Score 1 07/20/2019 [facility] - Occupational [...] in a usp (including now)? No 07/05/2021 Adolescent Education Answer Date Record ed Getting School Help Needed Not on file 02/20 Sex and Gender Information Value Date Recorded Sex Assigned at Not on file Gender Identity Not on file Sexual Orientation Not on file documented as of this encounter Miscellaneous Notes * Telephone Encounter - Mariluz Palomino RN - 11/27/2023 10:51 AM CDT Called pt. Kyle with details below Mariluz SHAH, RN Drum Stock Clerk [facility] * Telephone Encounter - Mariluz Palomino RN - 10/29/2023 10:49 AM CDT Called pt. Lm to call back to discuss Mariluz SHAH, RN Drum Stock Clerk [facility] * Telephone Encounter - Mariluz Palomino RN - 10/16/2023 9:46 AM CDT Called pt. Kyle to call back to discuss upcoming appt. [...] PCP is in system. Mariluz SHAH, RN Drum Stock Clerk [facility] Management * Telephone Encounter - Sue [...] Visit [facility] [address] [place], [place] [address] Haley Khanna MD [address] [place] [address] [place] [id number] documented as of this encounter Visit Diagnoses Not on filedocumented in this encounter Care Teams Television Schedule Coordinator Relationship Specialty Start Date End Date Adams Barrera 420 [facility] 101 [place], [place] [id number] PCP - General 03/30/20 Celia Kumar MD [address] [facility] 195 [place], [place] [address] Plastic Surgery 04/20/15 Charan Corbin MD [address] [place] [address] 101 [place] [address] INTERNAL MEDICINE - ENDOCRINOLOGY, DIABETES & METABOLISM 06/19/15 [place] [address] [place] [address] Assigned PCP 03/21/21 Greta Thao APRN MANAGER CRISIS [facility] [address] [place] [address] Nurse Practitioner Cardiology 06/09/23 Greta Thao APRN MANAGER CRISIS [facility] [address] [place] [address] Assigned Heart and Vascular Provider 06/25/23 documented as of this encounter
--- OUTSIDE RECORDS SUMMARY | 2023-11-30 08:40 | XMS_ITS | Encounter Summary ---
Author Organization [facility] Address [address] [place] [address] Care Team Providers Care Retail Salesworker Name Role Phone Celia Kumar MD Unavailable [phone] Charan Corbin MD Unavailable [phone] Celia Kumar MD Unavailable [phone] Adams Barrera Primary Care Provider [phone] Carolina De Dios CLIENT SOLUTIONS DIRECTOR FISCAL ACCOUNTING CLERK Unavailable Lodya Deborah Rust MD Unavailable Greta Thao CLIENT SOLUTIONS DIRECTOR FISCAL ACCOUNTING CLERK Unavailable [phone] Greta Thao APRN FISCAL ACCOUNTING CLERK Unavailable [phone] Encounter Details Date Type Department Care Team [...] Department Care Team (Late Contact Info) Description 12/10/2023 9:30 AM CDT Office Visit [facility] [place] [address] [place] [address] [place] [address] [place] [address] documented as of this encounter Visit Diagnoses Not on filedocumented in this encounter Additional Health Concerns Infection Onset Date Last Indicated Resolved Time Rule Out COVID-19 05/22/2023 05/22/2023 05/22/2023 1:25 AM SAP FICO ARCHITECT COVID-19 05/22/2023 05/22/2023 06/12/2023 11:3 9 PM SAP FICO ARCHITECT documented as of this encounter Care Teams Retail Salesworker Relationship Specialty Start Date End Date [place] Barrera [address] [facility] 195 [place], [place] [address] PCP - General 03/30/20 Celia Kumar MD [address] [facility] 195 [place], [place] [address] Plastic Surgery 04/20/15 Charan Corbin MD [address] [facility] [address] [place], [place] [address] INTERNAL MEDICINE - ENDOCRINOLOGY, DIABETES & METABOLISM 06/19/15 Celia Kumar MD [address] [facility] [address] [place] [address] Assigned Surgical Provider 03/23/20 12/20/21 Carolina De Dios APRN [facility] [address] [facility] 195 [place] [address] Assigned Heart and Vascular Provider 12/14/20 09/12/22 [place] [address] [place] [address] Assigned PCP 03/21/21 Greta Thao APRN FISCAL ACCOUNTING CLERK [facility] [address] [place] [address] Nurse Practitioner Cardiology 06/09/23 Greta Thao APRN FISCAL ACCOUNTING CLERK [facility] [address] [place] [address] Assigned Heart and Vascular Provider 06/25/23 documented as of this encounter
--- OUTSIDE RECORDS SUMMARY | 2023-11-30 08:40 | XMS_ITS | Encounter Summary ---
Author Organization [facility] Address [address] [place] [address] Care Team Providers Care Electronic Technologist Name Role Phone Celia Kumar Fortino Garcia MD Unavailable [phone] Charan Corbin MD Unavailable [phone] [place] Barrera Primary Care Provider [phone] Deborah Walsh MD Unavailable Greta Thao APRN SHIPYARD PAINTER Unavailable [phone] Greta Thao APRN SHIPYARD PAINTER Unavailable [phone] Encounter Details Date Type Department Care Team (Latest Contact Info) Description 11/13/2023 Travel Social History Tobacco Use Types Packs/Day [...] file 07/05/2021 How often do you attend [facility] or synagogue services? More than 4 times per year [...] Answer Date Recorded PHQ-2 Score 1 07/20/2019 [facility] - [...] Description 12/10/2023 9:30 AM CDT Office Visit [facility] [place] [id number] [place] [address] [address] [place], [place] [address] [place] [address] [place], [place] [id number] documented as of this encounter Visit Diagnoses Not on filedocumented in this encounter Care Teams Electronic Technologist Relationship Specialty Start Date End Date Adams Barrera [address] [address] PCP - General 03/30/20 Celia Kumar MD [address] [address] Plastic Surgery 04/20/15 Charan Corbin MD 420 [facility] 101 [place], [place] [address] INTERNAL MEDICINE - ENDOCRINOLOGY, DIABETES & METABOLISM 06/19/15 [place] [address] [place], [place] [address] Assigned PCP 03/21/21 Greta Thao APRN SHIPYARD PAINTER [facility] [address] [place] [address] Nurse Practitioner Cardiology 06/09/23 Greta Thao APRN SHIPYARD PAINTER [facility] [address] [place] [address] Assigned Heart and Vascular Provider 06/25/23 documented as of this encounter
--- OUTSIDE RECORDS SUMMARY | 2023-11-30 08:40 | XMS_ITS | Encounter Summary ---
Author Organization [facility] Address [address] [place] [address] Care Team Providers Care Rolling Chair Pusher Name Role Phone Celia Kumar MD Unavailable [phone] Charan Corbin MD Unavailable [phone] Celia Kumar MD Unavailable [phone] [place] Barrera Primary Care Provider [phone] Carolina De Dios EKG MONITOR TECH PYROMETER MECHANIC Unavailable Loyda Deborah Rust MD Unavailable Greta Thao APRN PYROMETER MECHANIC Unavailable [phone] Greta Thao APRN PYROMETER MECHANIC Unavailable + [phone] Encounter Details Date Type Department Care Team [...] Description 12/10/2023 9:30 AM CDT Office Visit [facility] [place] [address] [place] [address] [address] [place], [place] [address] [place] [address] [place] [address] documented as of this encounter Visit Diagnoses Not on filedocumented in this encounter Additional Health Concerns Infection Onset Date Last Indicated Resolved Time Rule Out COVID-19 05/22/2023 05/22/2023 05/22/2023 1:25 AM EIGHT SECTION BLOWER COVID-19 05/22/2023 05/22/2023 06/12/2023 11:3 9 PM EIGHT SECTION BLOWER documented as of this encounter Care Teams Rolling Chair Pusher Relationship Specialty Start Date End Date [place] Barrera [address] [facility] 195 [place], [place] [address] PCP - General 03/30/20 Celia Kumar MD [address] [facility] 195 [place], [place] [address] Plastic Surgery 04/20/15 Charan Corbin MD [address] [facility] 101 [place], [place] [address] INTERNAL MEDICINE - ENDOCRINOLOGY, DIABETES & METABOLISM 06/19/15 Celia Kumar MD [address] [facility] [address] [facility] 195 [place] [address] Assigned Surgical Provider 03/23/20 12/20/21 Carolina De Dios APRN PYROMETER MECHANIC [address] [facility] [address] [facility] [address] [place] [address] Assigned Heart and Vascular Provider 12/14/20 09/12/22 [place] [address] [place] [address] Assigned PCP 03/21/21 Greta Thao APRN PYROMETER MECHANIC [facility] [address] [place] [address] Nurse Practitioner Cardiology 06/09/23 Greta Thao APRN PYROMETER MECHANIC [facility] [address] [place] [address] Assigned Heart and Vascular Provider 06/25/23 documented as of this encounter
--- OUTSIDE RECORDS SUMMARY | 2023-11-30 08:40 | XMS_ITS | Encounter Summary ---
Author Organization [facility] Address [address] [place] [address] Care Team Providers Care Appliance Assembler Name Role Phone Celia Kumar MD Unavailable [phone] Charan Corbin MD Unavailable [phone] Celia Kumar MD Unavailable [phone] [place] Barrera Primary Care Provider [phone] Carolina De Dios HOME VISIT FIELD CARE MANAGER ANIMAL CRUELTY INVESTIGATOR Unavailable Loyda Deborah Rust MD Unavailable Greta Thao APRN ANIMAL CRUELTY INVESTIGATOR Unavailable [phone] Greta Thao APRN ANIMAL CRUELTY INVESTIGATOR Unavailable + [phone] Encounter Details Date Type Department Care Team [...] Description 12/10/2023 9:30 AM CDT Office Visit [facility] [place] [address] [facility] [address] [place], [place] [address] [place] [address] [place] [address] documented as of this encounter Visit Diagnoses Not on filedocumented in this encounter Additional Health Concerns Infection Onset Date Last Indicated Resolved Time Rule Out COVID-19 05/22/2023 05/22/2023 05/22/2023 1:25 AM HEATING AND COOLING TECHNICIAN COVID-19 05/22/2023 05/22/2023 06/12/2023 11:3 9 PM HEATING AND COOLING TECHNICIAN documented as of this encounter Care Teams Appliance Assembler Relationship Specialty Start Date End Date Adams Barrera [address] [facility] 195 [place], [place] [address] PCP - General 03/30/20 Celia Kumar MD [address] [facility] 195 [place], [place] [address] Plastic Surgery 04/20/15 Charan Corbin MD [address] [facility] [address] [place], [place] [address] INTERNAL MEDICINE - ENDOCRINOLOGY, DIABETES & METABOLISM 06/19/15 Celia Kumar MD [address] [facility] [address] [place] [address] Assigned Surgical Provider 03/23/20 12/20/21 Carolina De Dios APRN ANIMAL CRUELTY INVESTIGATOR [address] [facility] 195 [place] [address] Assigned Heart and Vascular Provider 12/14/20 09/12/22 [place] [address] [place] [address] Assigned PCP 03/21/21 Greta Thao APRN ANIMAL CRUELTY INVESTIGATOR [facility] [address] [place] [address] Nurse Practitioner Cardiology 06/09/23 Greta Thao APRN ANIMAL CRUELTY INVESTIGATOR [facility] [address] [place] [address] Assigned Heart and Vascular Provider 06/25/23 documented as of this encounter
--- OUTSIDE RECORDS SUMMARY | 2023-11-30 08:40 | XMS_ITS | Encounter Summary ---
Author Organization [facility] Address [address] [place] [address] Care Team Providers Care Auditing Clerk Name Role Phone Celia Kumar MD Unavailable [phone] Charan Corbin MD Unavailable [phone] Celia Kumar MD Unavailable [phone] Adams Barrera Primary Care Provider [phone] Carolina De Dios SAP MANAGER AUDITING CLERK Unavailable Loyda Deborah Rust MD Unavailable Greta Thao APRN AUDITING CLERK Unavailable + [phone] Greta Thao APRN AUDITING CLERK Unavailable + [phone] Encounter Details Date Type Department Care Team (Late st Contact Info) Description 11/02/2020 External Order Results [facility] [address] [place] [address] Outside, Provider Social History Tobacco [...] Description 12/10/2023 9:30 AM CDT Office Visit [facility] [place] [address] [place] [address] Drive [address] [place], [place] [address] [place] [address] [place] [address] documented as of this encounter Visit Diagnoses Not on filedocumented in this encounter Additional Health Concerns Infection Onset Date Last Indicated Resolved Time Rule Out COVID-19 05/22/2023 05/22/2023 05/22/2023 1:25 AM COUNSELING DEPARTMENT CHAIR COVID-19 05/22/2023 05/22/2023 06/12/2023 11:3 9 PM COUNSELING DEPARTMENT CHAIR documented as of this encounter Care Teams Auditing Clerk Relationship Specialty Start Date End Date Adams Barrera [address] [facility] 195 [place], [place] [address] PCP - General 03/30/20 Celia Kumar MD [address] [facility] 195 [place], [place] [address] Plastic Surgery 04/20/15 Charan Corbin MD [address] [facility] 101 [place], [place] [address] INTERNAL MEDICINE - ENDOCRINOLOGY, DIABETES & METABOLISM 06/19/15 Celia Kumar MD [address] [facility] [address] [place], [place] [address] Assigned Surgical Provider 03/23/20 12/20/21 Carolina De Dios APRN AUDITING CLERK 420 [facility] 195 [place] [address] Assigned Heart and Vascular Provider 12/14/20 09/12/22 [place] [address] [address] [place] [address] Assigned PCP 03/21/21 Greta Thao APRN AUDITING CLERK [facility] [address] [place] [address] Nurse Practitioner Cardiology 06/09/23 Greta Thao APRN AUDITING CLERK [facility] [address] [place] [address] Assigned Heart and Vascular Provider 06/25/23 documented as of this encounter
--- OUTSIDE RECORDS SUMMARY | 2023-11-30 08:40 | XMS_ITS | Encounter Summary ---
Author Organization [place] Address [address] [place] [address] Care Team Providers Care Labor Commissioner Name Role Phone José Celia Garcia MD Unavailable [phone] Charan Corbin MD Unavailable [phone] Adams Barrera Primary Care Provider [phone] Deborah Walsh MD Unavailable Greta Thao APRN BRIQUETTE OPERATOR Unavailable [phone] Greta Thao APRN BRIQUETTE OPERATOR Unavailable + [phone] Reason for Visit * Reason Comments Follow Up * Consultation (Routine) - Pending Review Specialty Diagnoses / Procedures Referred By Katina ribera Referred To Contact Cardiovascular Disease Diagnoses Longstanding persistent atrial fibrillation (H) Greta Thao APRN BRIQUETTE OPERATOR [facility] [address] [place] [address] Referral ID Status Reason Start Date Expiration Date V isits Requested Visits Authorized [id number] Pending Review 06/19/2023 06/18/2024 1 1 Encounter Details Date Type Department Care Team (Late st Contact Info) Description 11/13/2023 1:30 PM CDT Office Visit [place] [id number] [facility] [address] [place] [phone] Greta Thao APRN [facility] [address] [place] [address] Nonischemic cardiomyopathy (H) (Primary Dx); Longstanding persistent atrial fibrillation (H) Social History Tobacco Use Types Packs/Day Years [...] any clubs o r organizations such as faith groups, unions, fraternal or athletic groups, or [...] Answer Date Recorded PHQ-2 Score 1 07/20/2019 [place] [facility] - Occupational Stress [...] place to sleep or slept in a fpc (including now)? No 07/05/2021 Adolescent Education Answer Date Record ed Getting School Help Needed Not on file 02/20 Sex and Gender Information Value Date Recorded Sex Assigned at Not on file Gender Identity Not on file Sexual Orientation Not on file documented as of this encounter Last Filed Vital Signs Vital Sign Reading Time Taken Comments Blood Pressure 85/57 11/13/2023 1:27 PM CDT Pulse 50 11/13/2023 1:27 PM CDT Temperature - - Respiratory Rate 18 11/13/2023 1:27 PM CDT Oxygen Saturation 97% 11/13/2023 1:27 PM CDT Inhaled Oxygen Concentration - - Weight 91.2 kg (201 lb) 11/13/2023 1:27 PM CDT Height - - Body Mass Index 36.76 08/27/2023 3:52 PM CDT documented in this encounter Progress Notes * Greta Thao APRN BRIQUETTE OPERATOR - 11/13/2023 1:30 PM CDT Images from the original note were not included. [facility] Cardiac Electrophysiology [address] [facility] [address] [place] [address] Office: [phone] HEART CARE ELECTROPHYSIOLOGY FOLLOW UP Primary Care: Adams Barrera MD Assessment/Recommendations Longstanding persistent atrial fibrillation/stage 3C: Longstanding history of back to 2019 with history of tachycardia mediated cardiomyopathy. Failed sotalol and amiodarone due to breakthrough. She was last documented in sinus rhythm in 2020. At last visit discussed rate control and recommended Holter monitor to evaluate ventricular response results of which are not available. Does not appear overtly hypervolemic but with ongoing symptoms, previous history of tachycardia mediated cardiomyopathy and AFRVR recommended ED evaluation. She would require CRIS prior to DCCV to rule out CHIRAG thrombus with subtherapeutic INR within the past 3 weeks. She is unlikely to maintain sinus rhythm post DCCV as well. We discussed mcfp rhythm management is likely untenable and she may be a better candidate for AV node ablation/device therapy [id number] score of 6 for gender, hypertension, type 2 diabetes, cardiomyopathy, VTE history-CVA History of Present Illness/Subjective Brandee Brown is a 63 year old female with past medical history significant for persistent atrial fibrillation, tachycardia mediated cardiomyopathy, hypertension, hyperlipidemia, type 2 diabetes, lacunar CVA 2017, asthma, bipolar disorder, ADHD, anxiety and depression, nicotine use, morbid obesity status post gastric bypass 2002, polysubstance abuse (alcohol, methamphetamines, cocaine) and cognitive impairment, seen today for EP follow-up She was diagnosed with AF with RVR in 2018 in the setting of acutely decompensated heart failure, CRIS significant for LVEF 20%. She underwent DCCV 02/07/2019 following initiation of apixaban and amiodarone, with symptomatic improvement. She was back in AF within 6 weeks of DCCV; TTE 02/11/2019 showed n ormalized EF. Catheter ablation was briefly discussed in 2019 and she elected to continue current medical management including amiodarone. She required CRIS/DCCV 2020 for recurrent AFL and ADHF. Her amiodarone was discontinued and beta larissa uptitrated, with switch to warfarin due to potential malabsorption secondary to gastric bypass surgery. She was admitted for elective hip surgery 10/2020, developing AFRVR after multiple missed doses metoprolol. She was briefly on oral amiodarone, discontinued 01/30/2021 after maintaining SR, and transitioned to sotalol. She was lost to cardiology follow-upfor the next several years. TTE 01/11/2023 shows interval reduction in LVEF to 40%. At last visit we discussed ongoing rate control and she was recommended to complete 24-hour Holter.She notes significant dyspnea on exertion, decreased activity tolerance, weakness and fatigue over the past several weeks. She has intermittent chest discomfort under her left breast both with activity and at rest. She was recently transitioned off Dilaudid and started on Suboxone through her primary care provider became significantly obtunded and fatigued with this so she independently discontinued. She denies pedal edema, lightheadedness/dizziness or syncope. Data Review Arrhythmia hx: Dx/date: Persistent AF with RVR 02/03/2019 Sx: Shortness of breath with exertion, worsening heart failure [id number]/OAC: 6 for gender, hypertension, type 2 diabetes, cardiomyopathy, VTE history-CVA Prior rate control: metoprolol, digoxin Prior AAD: amiodarone DCCV: 01/2019, 09/27/2020 Ablation: NA EKG 11/13/2023 AF with RVR 147 bpm == EK05/22/2023: AF 94 bpm 07/13/2021: AF versus AFL 134 bpm 03/22/2021: SB 47 bpm Personally reviewed. TTE/CRIS: 01/11/2023: 1. Normal LV size, mildly reduced function with an estimated EF of ~40%. 2. Right ventricular cavity size is normal, global systolic RV function is mildly reduced. 3. Mildly enlarged left atrium. 4. No significant valve disease detected. 11/11/2020: ?? Moderate concentric left ventricular hypertrophy ?? Severe left atrial enlargement ?? Left ventricle ejection fraction is normal. The calculated left ventricular ejection fraction is56% without wall motion abnormality. ?? Normal right ventricular size with mildly reduced systolic function. ?? No significant valvular heart disease. ?? No previous study for comparison. CCTA: 2019 ([facility]) 1. Diffuse coronary atherosclerosis involving the LAD and RCA with mild stenosis but no significant obstructive disease. 2. Elevated coronary artery calcium score of 1411, puts the patient into the 99th percentile for her age and gender. Aggressive risk factor modification is recommended. 3. Mild right atrial dilation in this patient with history of atrial fibrillation and morbid obesity. I have reviewed and updated the patient's past medical history, allergy list and medication list. Physical Examination Vitals: BP (!) 85/57 (BP Location: Left arm, Patient Position: Sitting, Cuff Size: Adult Large) Pulse 50 Resp 18 Wt 91.2 kg (201 lb) SpO2 97% BMI 36.76 kg/m?? BMI= Body mass index is 36.76 kg/m??. Wt Readings from Last 3 Encounters: 11/13/23 91.2 kg (201 lb) 11/13/23 91.2 kg (201 lb) 08/27/23 94.3 kg (208 lb) General Appearance: Alert and oriented. Distressed female appearing older than stated age HEENT: Normocephalic and atraumatic. Conjunctiva and sclera are clear. Moist oral mucosa. Neck: No JVP, carotid bruit or obvious thyromegaly. Lungs: Respirations unlabored. No overt wheezing or rhonchi by auscultation Cardiovascular: Rhythm is irregular. S1 and S2 are normal. No significant murmur is present. Lower extremities demonstrate 1+ nonpitting edema. Posterior tibial pulses are intact bilaterally. Extremities: No cyanosis or clubbing Skin: Skin is warm, dry, and otherwise intact. Neurologic: In wheelchair. Somewhat poor historian. Affect appropriate Medical History Surgical History Family History Social History Past Medical History: Diagnosis Date Alcohol abuse Anemia transfusion needed s/p uterine fibroids and gastric bypass Anxiety Arthritis OA Asthma Bipolar 1 disorder CHF (congestive heart failure) Chronic back pain Depression Diabetes mellitus Gastroesophageal reflux disease History of cocaine 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/2010 Per [facility] medical record Hypertension Obesity Paroxysmal atrial fibrillation 2017 Peptic ulcer disease PTSD (post-traumatic stress disorder) Rosacea Stroke 2016 bleed on brain, denies residual Past Surgical History: Procedure Laterality Date Abdominal hernia repair with mesh ANKLE SURGERY ARTHROPLASTY HIP Left ARTHROPLASTY KNEE Right 07/09/2021 Procedure: RIGHT TOTAL KNEE ARTHROPLASTY; Surgeon: Jamin Siegel MD; Location: [facility] OR ARTHROPLASTY SHOULDER Left BAND HEMORRHOIDECTOMY [...] HIP ARTHROPLASTY; Surgeon: Jamin Siegel MD; Location: [facility]; Service: Orthopedics Family History Problem Relation Age [...] file Other Topics Concern Parent/sibling w/ CABG, AR or angioplasty before 65F 55M? Not Asked [...] min Stress: No Stress Concern Present (07/05/2021) [place] [facility] - Occupational Stress Questionnaire Feeling of Stress : Only a little Social Connections: Unknown (08/31/2023) Received from [employer] [facility] Social Connections Frequency of Communication with Friends and Family: Not on file Interpersonal Safety: Not on file Housing Stability: Low Risk (07/05/2021) Housing Stability Vital Sign Unable to Pay for Housing in the Last Year: No Number of Places Lived in the Last Year: 1 Unstable Housing in the Last Year: No Medications Allergies Scheduled Meds: Current Outpatient Medications Medication Sig Dispense Refill albuterol (VENTOLIN HFA) 108 (90 Base) MCG/ACT IN inhaler Inhale 2 puffs into the lungs every 6 hours as needed artificial saliva (BIOTENE DRY MOUTHWASH) LIQD liquid Swish and spit 15 mLs in mouth every 6 hours as needed for dry mouth atorvastatin 40 MG PO tablet Take 40 mg by mouth At Bedtime azelastine 0.1 % NA nasal spray [place] 1 spray into both nostrils 2 times daily BANOPHEN 25 MG capsule Take 25 mg by mouth every 4 hours as needed for sleep diclofenac (VOLTAREN) 1 % topical gel Apply 2 g topically 4 times daily Apply to affected area. 6AM, 12PM, 6PM, 12AM DIPHENHYDRAMINE HCL PO Take 25 mg by mouth every 4 hours as needed fluticasone (FLONASE) 50 MCG/ACT nasal spray [place] 1 spray into both nostrils 2 times daily fluticasone-salmeterol (ADVAIR) 250-50 MCG/DOSE inhaler Inhale 1 puff into the lungs 2 times daily MARY-LANTA 200-200-20 MG/5ML SUSP suspension Take 10 mLs by mouth 4 times daily as needed for indigestion hydrocortisone (CORTAID) 1 % external cream Apply topically 4 times daily as needed for rash Incontinence Supply Disposable (DEPEND FITTED BRIEFS SM/MED) MISC For home use. Will use 2 per day.Size large. ipratropium - albuterol 0.5 mg/2.5 mg/3 mL (DUONEB) 0.5-2.5 (3) MG/3ML neb solution Take 1 vial by nebulization 2 times daily loratadine (CLARITIN) 10 MG tablet Take 10 mg by mouth daily metFORMIN (GLUCOPHAGE) 500 MG tablet Take 500 mg by mouth 2 times daily (with meals) metoprolol tartrate (LOPRESSOR) 50 MG tablet Take 50 mg by mouth 2 times daily MILK OF MAGNESIA 400 MG/5ML PO suspension Take 30 mLs by mouth daily as needed for constipation nystatin [id number] UNIT/GM EX external powder Apply topically 2 times daily as needed ondansetron (ZOFRAN-ODT) 4 MG ODT tab Take 4 mg by mouth every 8 hours as needed for nausea pantoprazole (PROTONIX) 40 MG EC tablet Take 40 mg by mouth daily polyethylene glycol (MIRALAX) 17 g packet Take 1 packet by mouth 2 times daily pregabalin (LYRICA) 100 MG capsule Take 100 mg by mouth 3 times daily senna-docusate (SENOKOT-S/PERICOLACE) 8.6-50 MG tablet Take 3 tablets by mouth 2 times daily sertraline (ZOLOFT) 100 MG tablet Take 200 mg by mouth daily AllofMes Container (NMVBLB-R-SCZTR LOCKING BRACKET) MISC Length: calf Strength: 16-20 mmHg Circumference in cm: For calf: Ankle 12, Calf 18.5 , Ankle to calf length 12 . SM GAS RELIEF EXTRA STRENGTH 125 MG PO CAPS Take 1 capsule by mouth 4 times daily SUMAtriptan (IMITREX) 50 MG tablet Take 50 mg by mouth at onset of headache for migraine May repeatx1 in 2 hours if needed. torsemide 20 MG PO tablet Take 50 mg by mouth daily Vaginal Lubricant (REPLENS) GEL Place vaginally every 72 hours as needed (dryness) warfarin ANTICOAGULANT (COUMADIN) 2 MG tablet Take 3-4 mg by mouth See Admin Instructions Take 3 mgon Sundays. Take 4 mg all other days of the week. zolpidem (AMBIEN) 5 MG tablet Take 5 mg by mouth At Bedtime cyanocobalamin 1000 MCG/ML IJ injection Inject 1 mL into the muscle every 30 days (Patient not taking: Reported on 06/16/2023) Allergies Allergen Reactions Gramineae Pollens Rash Trimethoprim [...] she also had angioedema from these medications. Lab Results Chemistry/lipid CBC Cardiac Enzymes/BNP/TSH/INR Lab Results Component Value Date CHOL 112 03/09/2015 HDL 69 03/09/2015 TRIG 60 03/09/2015 BUN 10.3 05/22/2023 NA 142 05/22/2023 CO2 23 05/22/2023 Lab Results Component Value Date WBC 5.4 05/22/2023 HGB 8.0 (L) 05/22/2023 HCT 27.8 (L) 05/22/2023 MCV 77 (L) 05/22/2023 PLT 142 (L) 05/22/2023 @RESUFAST(BMP,CBC,BNP,TSH, INR)@ 47 minutes spent reviewing prior records (including documentation, laboratory studies, cardiac testing/imaging), history and physical exam, planning, and subsequent documentation. This note has been dictated using voice recognition software. Any grammatical, typographical, or context distortions are unintentional and inherent to the software. The longitudinal plan of care for atrial fibrillation was addressed during this visit. Due to the added complexity in care, I will continue to support Brandee in the subsequent management of this condition(s) and with the ongoing continuity of care of this condition(s). Greta Thao CNP Clinical Cardiac Electrophysiology [facility] and [phone] Electrophysiology Nurses: [phone] documented in this encounter Plan of Treatment Upcoming Encounters Date Type Department Care Team (Late st Contact Info) Description 12/10/2023 9:30 AM CDT Office Visit [facility] [address] [place] [address] [place] [address] [place] [id number] documented as of this encounter Procedures Procedure Name Priority Date/Time Associated Diagnosis Comments ECG 12-LEAD WITH MUSE ? SJN,SJO,WWH Routine 11/13/2023 2:11 PM CDT Longstanding persistent atrial fibrillation (H) documented in this encounter Results * ECG 12-LEAD WITH MUSE (LHE) (11/13/2023 2:11 PM CDT) Systolic Blood Pressure mmHg RADIOLOGY RESULTS Diastolic Blood Pressure mmHg RADIOLOGY RESULTS Ventricular Rate 147 BPM RAD IOLOGY RESULTS Atrial Rate 147 BPM RADIOLOG Y RESULTS ND Interval ms RADIOLOG Y RESULTS QRS Duration 80 ms RADIOLO GY RESULTS QT 324 ms RADIOLOGY RESULTS QTc 507 ms RADIOLOGY RESULTS P Dunlow degrees RADIOLOGY RESULTS R AXIS 15 degrees RADIOLOGY RESULTS T Dunlow 232 degrees RADIOLOGY RESULTS Interpretation ECG Atrial fibrillation with rapid ventricular response ST & T wave abnormality, consider inferolateral ischemia or digitalis effect Abnormal ECG When compared with ECG of 22-MAY-2023 00:53, Vent. rate has increased BY ??[address] now depressed in Lateral leads T wave inversion now evident in Inferior leads Nonspecific T wave abnormality, improved in Lateral leads Confirmed by ADRIANA ??ANITA BOLES LOC:JN ([id number]) on 11/13/2023 4:01:33 PM RADIOLOGY RESULTS 11/13/2023 2:11 PM CDT 11/13/2023 4:01 PM CDT Greta Thao CASINO SLOT SUPERVISOR BRIQUETTE OPERATOR ECG ORDERABLES RADIOLOGY RESULTS documented in this encounter Visit Diagnoses Diagnosis Nonischemic cardiomyopathy (H)- Primary Other primary cardiomyopathies Longstanding persistent atrial fibrillation (H) documented in this encounter Care Teams Labor Commissioner Relationship Specialty Start Date End Date Adams Barrera [address] [facility] [address] [place] [address] PCP - General 03/30/20 Celia Kumar MD [address] [facility] [address] [place], [place] [address] Plastic Surgery 04/20/15 Charan Corbin MD [address] [facility] [address] [place], [place] [address] INTERNAL MEDICINE - ENDOCRINOLOGY, DIABETES & METABOLISM 06/19/15 [place] [address] [address] [address] Assigned PCP 03/21/21 Greta Thao APRN BRIQUETTE OPERATOR [facility] [address] [place] [address] Nurse Practitioner Cardiology 06/09/23 Greta Thao APRN BRIQUETTE OPERATOR [facility] [address] [place] [address] Assigned Heart and Vascular Provider 06/25/23 documented as of this encounter
--- OUTSIDE RECORDS SUMMARY | 2023-11-30 08:40 | XMS_ITS | Encounter Summary ---
Author Organization [facility] Address [address] [place] [address] Care Team Providers Care Fisher Crab Name Role Phone Celia Kumar MD Unavailable [phone] Charan Corbin MD Unavailable [phone] Celia Kumar MD Unavailable [phone] Adams Barrera Primary Care Provider [phone] Carolina De Dios APRN TARIFF CLERK Unavailable Loyda Deborah Rust MD Unavailable Greta Thao APRN TARIFF CLERK Unavailable [phone] Greta Thao APRN TARIFF CLERK Unavailable + [phone] Reason for Visit * Reason Onset Date Comments Medication Question 06/26/2021 Rx Vyvanse Encounter Details Date Type Department Care Team (Late st Contact Info) Description 06/26/2021 Telephone [facility] [address] [facility] [address] [place] [address] Carolina De Dios APRN TARIFF CLERK Medication Question (Rx Vyvanse ) Social History [...] COVID-19? No / Unsure 06/19/2021 7:08 AM CATHEAD OPERATOR documented as of this encounter Miscellaneous Notes * Telephone Encounter - Acacia Choudhary - 07/02/2021 10:56 AM CST Patient called and spoke with verse writer, she states she is still waiting to hear from care team.Pleasecall patient at [phone]. EAD OPERATOR * Telephone Encounter - Katerin Isabel - 06/26/2021 12:58 PM CST [facility] Call Center Phone Message May a detailed message be left on voicemail: no Reason for Call: Other: Brandee called to request clarification if Rx Vyvanse can be used safely without crossing the heart? If so, please provide a wriiten E- mail with approval for use to [email or web address]. If you have any questions, please reach out to Brandee's daughter Keyla Rivas at . Action Taken: Other: [facility] Travel Screening: Not Applicable EAD OPERATOR documented in this encounter Plan of Treatment Upcoming Encounters Date Type Department Care Team (Late st Contact Info) Description 12/10/2023 9:30 AM CDT Office Visit [facility] [address] [place], [place] [id number] [place] [address] [address] [phone] documented as of this encounter Visit Diagnoses Not on filedocumented in this encounter Additional Health Concerns Infection Onset Date Last Indicated Resolved Time Rule Out COVID-19 05/22/2023 05/22/2023 05/22/2023 1:25 AM CATHEAD OPERATOR COVID-19 05/22/2023 05/22/2023 06/12/2023 11:3 9 PM CATHEAD OPERATOR documented as of this encounter Care Teams Fisher Crab Relationship Specialty Start Date End Date Adams Barrera [address] [place] [address] [address] PCP - General 03/30/20 Celia Kumar MD [address] [address] [address] Plastic Surgery 04/20/15 Charan Corbin MD [address] [facility] [address] [address] INTERNAL MEDICINE - ENDOCRINOLOGY, DIABETES & METABOLISM 06/19/15 Celia Kumar MD [address] [facility] [address] [address] Assigned Surgical Provider 03/23/20 12/20/21 Carolina De Dios APRN TARIFF CLERK [address] [address] Assigned Heart and Vascular Provider 12/14/20 09/12/22 [place] [address] [place] [address] Assigned PCP 03/21/21 Greta Thao APRN TARIFF CLERK [facility] [address] [place] [address] Nurse Practitioner Cardiology 06/09/23 Greta Thao APRN TARIFF CLERK [facility] [address] [place] [address] Assigned Heart and Vascular Provider 06/25/23 documented as of this encounter
--- OUTSIDE RECORDS SUMMARY | 2023-11-30 08:40 | XMS_ITS | Encounter Summary ---
Author Organization [place] Address [address] [place] [address] Care Team Providers Care Counseling Case Manager Name Role Phone Celia Kumar Fortino Garcia MD Unavailable [phone] Charan Corbin MD Unavailable [phone] Adams Barrera Primary Care Provider [phone] Deborah Walsh MD Unavailable Greta Thao APRN SURFACING TECHNICIAN Unavailable [phone] Greta Thao APRN SURFACING TECHNICIAN Unavailable [phone] Encounter Details Date Type Department Care Team [...] How often do you attend [facility] or evangelical services? More than 4 times per year [...] Answer Date Recorded PHQ-2 Score 1 07/20/2019 [facility] - Occupational [...] Description 12/10/2023 9:30 AM CDT Office Visit [facility] [place] [address] [place] [address] [address] [place], [place] [address] [place] [address] [place], [place] [phone] documented as of this encounter Visit Diagnoses Not on filedocumented in this encounter Care Teams Counseling Case Manager Relationship Specialty Start Date End Date Adams Barrera [address] [id number] PCP - General 03/30/20 Celia Kumar MD [address] [address] Plastic Surgery 04/20/15 Charan Corbin MD [address] [facility] [address] [place], [place] [address] INTERNAL MEDICINE - ENDOCRINOLOGY, DIABETES & METABOLISM 06/19/15 [place] [address] [address] [place], [place] [phone] Assigned PCP 03/21/21 Greta Thao APRN SURFACING TECHNICIAN [facility] [address] [place] [address] Nurse Practitioner Cardiology 06/09/23 Greta Thao APRN SURFACING TECHNICIAN [facility] [address] [place] [address] Assigned Heart and Vascular Provider 06/25/23 documented as of this encounter
--- OUTSIDE RECORDS SUMMARY | 2023-11-30 08:40 | XMS_ITS | Encounter Summary ---
Author Organization [facility] Address [address] [place] [address]. [place] [address] Care Team Providers Care Mh Teacher Name Role Phone Celia Kumar Fortino Garcia MD Unavailable [phone] Charan Corbin MD Unavailable [phone] Adams Barrera Primary Care Provider [phone] Deborah Walsh MD Unavailable Greta Thao APRN MOLD BLOWER Unavailable [phone] Greta Thao APRN MOLD BLOWER Unavailable [phone] Reason for Visit * Reason Comments Urgent Care In between PMD , dio l be out of pain medication on Thursday, has appointment to establish care. Is out of Warfarin , needs enough to get through to Thursday. Needs INR checked today. Encounter Details Date Type Department Care Team (Late st Contact Info) Description 08/27/2023 4:15 PM CDT Office Visit [facility] [place] [address] [place] [address] Ashley Camargo, YULIANA Chronic atrial [...] How often do you attend chur or nondenominational services? More than 4 times per year 07/05/2021 Do you belong to any clubs o r organizations such as worship groups, unions, fraternal or athletic groups, or [...] Answer Date Recorded PHQ-2 Score 1 07/20/2019 [facility] of Occupat ional Health - Occupational [...] between primary care clinics. Has been with [facility] and will be establishing next week with [facility]. 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 Fib. INR goal of 2-3. She was wanting today warfarin and dilaudid that she takes for chronic pain. INR done. She was just able during time waiting to obtain refill of coumadin with [facility]. Discussed that chronic pain management will need to be done by PCP and not done in urgent care setting. INR was sent out instead of done in clinic. Unable to change. INR came back later in evening and 2.37 at goal. No change in INR dosing. Letter written with results and dosing and faxed to [place], nurse care team. Has scheduled Follow-up next [...] further activities per the note Subjective: HPI: Bradnee is a 63 year old female who [...] takes 4mg. In between providers. Was at [facility] in [place] and will be seeing doctor at [facility]. Wants to get INR order done. Also wants dilaudid refilled for chronic pain. She would like results and information for nurses at assisted living faxed: Fax [place] [phone] [place] [phone] [facility] notes: Your next INR will be 3-28-24. This will be your last ACO visit with [facility] Anticoagulation Department. You willneed to have your new provider, Dr. Mayer at at the [facility] manage your Warfarin Therapy Plan going [...] Description 12/10/2023 9:30 AM CDT Office Visit [facility] [place] [address] [place] [address] [address] [place], [place] [id number] [place] [address] [place], [place] [address] Scheduled Orders Name Type Priority Associated Diagnoses [...] PM CDT 08/27/2023 4:43 PM CDT Ashley L [place] PA-C LAB - BLOOD ORDERAB LES [facility] Acute Care Lab [address] [facility] (1st floor, no room number) [place] [address], [facility] documented in this encounter Visit Diagnoses Diagnosis Chronic atrial fibrillation (H)- Primary Atrial fibrillation Longstanding persistent atrial fibrillation (H) Anticoagulation goal of INR 2 to 3 Encounter for therapeutic drug monitoring documented in this encounter Care Teams Mh Teacher Relationship Specialty Start Date End Date Adams Barrera 420 [facility] 101 [place] [address] PCP - General 03/30/20 Celia Kumar MD 420 [facility] 195 [place] [address] Plastic Surgery 04/20/15 Charan Corbin MD 420 [facility] 101 [place] [address] INTERNAL MEDICINE - ENDOCRINOLOGY, DIABETES & METABOLISM 06/19/15 [place] [address] [place] [address] Assigned PCP 03/21/21 Greta Thao APRN [facility] [address] [place] [address] Nurse Practitioner Cardiology 06/09/23 Greta Thao APRN MOLD BLOWER [facility] [address] [place] [address] Assigned Heart and Vascular Provider 06/25/23 documented as of this encounter
--- OUTSIDE RECORDS SUMMARY | 2023-11-30 08:40 | XMS_ITS | Encounter Summary ---
Author Organization [facility] Address [address] [place] [address] Care Team Providers Care Child Life Specialist Name Role Phone José Celia Garcia MD Unavailable [phone] Charan Corbin MD Unavailable [phone] Adams Barrera Primary Care Provider [phone] Deborah Walsh MD Unavailable Greta Thao APRN CLINICAL RESEARCH PHYSICIAN Unavailable [phone] Greta Thao APRN CLINICAL RESEARCH PHYSICIAN Unavailable + [phone] Reason for Visit * Reason Comments Lab Only Encounter Details Date Type Department Care Team (Late st Contact Info) Description 08/27/2023 Documentation Only [facility] [address] [place] [address] Adams Barrera [facility] [address] [place] [address] Lab Only Social History [...] How often do you attend chur or jew services? More than 4 times per year 07/05/2021 Do you belong to any clubs o r organizations such as restorationism groups, unions, fraternal or athletic groups, or [...] Recorded PHQ-2 Score 1 07/20/2019 [facility] of Occupat ional Health - Occupational [...] place to sleep or slept in a penitentiary (including now)? No 07/05/2021 Adolescent Education Answer [...] Description 12/10/2023 9:30 AM CDT Office Visit [facility] [address] [facility] [address] [place] [address] [place] [address] [address] [place] [place] [id number] documented as of this encounter Visit Diagnoses Not on filedocumented in this encounter Care Teams Child Life Specialist Relationship Specialty Start Date End Date Adams Barrera [address] [facility] 101 [place] [address] PCP - General 03/30/20 Celia Kumar MD [address] [facility] 195 [place], [place] [address] Plastic Surgery 04/20/15 Charan Corbin MD [address] [facility] 101 [place], [place] [address] INTERNAL MEDICINE - ENDOCRINOLOGY, DIABETES & METABOLISM 06/19/15 [place] [address] [place] [address] Assigned PCP 03/21/21 Greta Thao APRN CLINICAL RESEARCH PHYSICIAN [facility] [address] [place] [address] Nurse Practitioner Cardiology 06/09/23 Greta Thao APRN CLINICAL RESEARCH PHYSICIAN [facility] [address] [place] [address] Assigned Heart and Vascular Provider 06/25/23 documented as of this encounter
--- OUTSIDE RECORDS SUMMARY | 2023-11-30 08:40 | XMS_ITS | Encounter Summary ---
Author Organization [facility] Address [address] [place] [address] Care Team Providers Care Computer Security Coordinator Name Role Phone Celia Kumar MD Unavailable [phone] Charan Corbin MD Unavailable [phone] Celia Kumar MD Unavailable [phone] Adams Barrera Primary Care Provider [phone] Carolina De Dios SAP ENTERPRISE PORTAL CONSULTANT STAFF REGISTERED NURSE Unavailable Loyda Deborah Rust MD Unavailable Greta Thao APRN STAFF REGISTERED NURSE Unavailable + [phone] Greta Thao APRN STAFF REGISTERED NURSE Unavailable + [phone] Encounter Details Date Type Department Care Team [...] any clubs o r organizations such as caodaism groups, unions, fraternal or athletic groups, or [...] Answer Date Recorded PHQ-2 Score 1 07/20/2019 [facility] of Occupat ional Health - Occupational Stress [...] a senior care (including now)? No 07/05/2021 Sex and Gender Information Value Date Recorded Sex Assigned at Not on file Gender Identity Not on file Sexual Orientation Not on file COVID-19 Exposure Response Date Recorded In the last month, have you been in contact with someone who was confirmed or suspected to have Coronavirus / COVID-19? No / Unsure 07/05/2021 9:03 AM ASSEMBLER TESTER documented as of this encounter Plan of Treatment Upcoming Encounters Date Type Department Care Team (Late st Contact Info) Description 12/10/2023 9:30 AM CDT Office Visit [facility] [place] [address] [place] [address] [address] [place] [address] [place] [id number] [place] [address] [place], [place] [id number] documented as of this encounter Visit Diagnoses Not on filedocumented in this encounter Additional Health Concerns Infection Onset Date Last Indicated Resolved Time Rule Out COVID-19 05/22/2023 05/22/2023 05/22/2023 1:25 AM ASSEMBLER TESTER COVID-19 05/22/2023 05/22/2023 06/12/2023 11:3 9 PM ASSEMBLER TESTER documented as of this encounter Care Teams Computer Security Coordinator Relationship Specialty Start Date End Date Adams Barrera [address] [place] [address] 195 [place] [address] PCP - General 03/30/20 Celia Kumar MD [address] [place] [address] [facility] 195 [place] [address] Plastic Surgery 04/20/15 Charan Corbin MD 420 [facility] 101 [place] [address] INTERNAL MEDICINE - ENDOCRINOLOGY, DIABETES & METABOLISM 06/19/15 Celia Kumar MD 420 [facility] 195 [place] [address] Assigned Surgical Provider 03/23/20 12/20/21 Carolina De Dios APRN STAFF REGISTERED NURSE 420 [facility] 195 [place] [address] Assigned Heart and Vascular Provider 12/14/20 09/12/22 [place] [address] [place] [address] Assigned PCP 03/21/21 Greta Thao APRN STAFF REGISTERED NURSE [facility] [place] [address] [place] [address] Nurse Practitioner Cardiology 06/09/23 Greta Thao APRN STAFF REGISTERED NURSE [facility] [address] [place] [address] Assigned Heart and Vascular Provider 06/25/23 documented as of this encounter
--- OUTSIDE RECORDS SUMMARY | 2023-11-30 08:40 | XMS_ITS | Encounter Summary ---
Author Organization [facility] Address [address] [place] [address] Care Team Providers Care Party Demonstrator Name Role Phone Celia Kumar Fortino Garcia MD Unavailable [phone] Charan Corbin MD Unavailable [phone] Adams Barrera Primary Care Provider [phone] Deborah Walsh MD Unavailable Greta Thao APRN COMMUNITY ASSOCIATE Unavailable [phone] Greta Thao APRN COMMUNITY ASSOCIATE Unavailable [phone] Encounter Details Date Type Department Care Team [...] file 07/05/2021 How often do you attend [facility] or jainism services? More than 4 times [...] Answer Date Recorded PHQ-2 Score 1 07/20/2019 [facility] of Occupat ional Health - [...] Description 12/10/2023 9:30 AM CDT Office Visit [facility] [place] [address] [place] [address] [address] [place], [place] [address] [place] [address] [address] [place], [place] [address] documented as of this encounter Visit Diagnoses Not on filedocumented in this encounter Care Teams Party Demonstrator Relationship Specialty Start Date End Date Adams Barrera [address] [address] PCP - General 03/30/20 Celia Kumar MD [address] [address] Plastic Surgery 04/20/15 Charan Corbin MD 420 [facility] 101 [place], [place] [address] INTERNAL MEDICINE - ENDOCRINOLOGY, DIABETES & METABOLISM 06/19/15 [place] [address] [address] [place], [place] [address] Assigned PCP 03/21/21 Greta Thao APRN COMMUNITY ASSOCIATE [facility] [address] [place] [address] Nurse Practitioner Cardiology 06/09/23 Greta Thao APRN COMMUNITY ASSOCIATE [facility] [address] [place] [address] Assigned Heart and Vascular Provider 06/25/23 documented as of this encounter
--- OUTSIDE RECORDS SUMMARY | 2023-11-30 08:40 | XMS_ITS | Encounter Summary ---
Author Organization [facility] Address [address] [place] [address] Care Team Providers Care Pneumatic Hoist Operator Name Role Phone Celia Kumar Fortino Garcia MD Unavailable [phone] Charan Corbin MD Unavailable [phone] Adams Barrera Primary Care Provider [phone] Deborah Walsh MD Unavailable Greta Thao APRN THEATRICAL DRESSER Unavailable [phone] Greta Thao APRN THEATRICAL DRESSER Unavailable [phone] Encounter Details Date Type Department Care Team [...] How often do you attend [facility] or christian services? More than 4 times per year 07/05/2021 Do you belong to any clubs o r organizations such as samaritan groups, unions, fraternal or athletic groups, or [...] Description 12/10/2023 9:30 AM CDT Office Visit [facility] [place] [address] [place] [address] [address] [place], [place] [address] [place] [address] [place], [place] [address] documented as of this encounter Visit Diagnoses Not on filedocumented in this encounter Care Teams Pneumatic Hoist Operator Relationship Specialty Start Date End Date Adams Barrera [address] [address] PCP - General 03/30/20 Celia Kumar MD [address] [address] Plastic Surgery 04/20/15 Charan Corbin MD 420 [facility] 101 [place], [place] [address] INTERNAL MEDICINE - ENDOCRINOLOGY, DIABETES & METABOLISM 06/19/15 [place] [address] [address] [place], [place] [address] Assigned PCP 03/21/21 Greta Thao APRN THEATRICAL DRESSER [facility] [address] [place] [address] Nurse Practitioner Cardiology 06/09/23 Greta Thao APRN THEATRICAL DRESSER [facility] [address] [place] [address] Assigned Heart and Vascular Provider 06/25/23 documented as of this encounter
--- OUTSIDE RECORDS SUMMARY | 2023-11-30 08:41 | XMS_ITS ---
Author Organization [facility] Address [facility]0 [place] [address] Care Team Providers Care Health Information Managers Name Role Phone JoséCelia MD Unavailable [phone] Charan Corbin MD Unavailable [phone] Adams Barrera Primary Care Provider [phone] Deborah Walsh MD Unavailable Greta Thao APRN FRAMING AND HANGING Unavailable + [phone] Greta Thao APRN FRAMING AND HANGING Unavailable [phone] Transitional Care Management Status:Closed (Closed) Start date:11/17/2023 End date:11/17/2023 Continued Care and Services Coordination
--- OUTSIDE RECORDS SUMMARY | 2023-11-30 08:41 | XMS_ITS | Encounter Summary ---
Author Organization [employer] Address [address] [place] [address] Care Team Providers Care Psychometric Examiner Name Role Phone Celia Kumar MD Unavailable [phone] Charan Corbin MD Unavailable [phone] Celia Kumar MD Unavailable [phone] Adams Barrera Primary Care Provider [phone] Carolina De Dios INFORMATION SYSTEMS SECURITY DEVELOPER CREEL OPERATOR Unavailable Loyda Deborah Rust MD Unavailable Greta Thao INFORMATION SYSTEMS SECURITY DEVELOPER CREEL OPERATOR Unavailable + [phone] Greta Thao APRN CREEL OPERATOR Unavailable + [phone] Encounter Details Date Type Department Care Team (Late st Contact Info) Description 07/02/2020 Records - [facility] CONVERSION Priscilla Mckay MD [address] [address] Social History Tobacco Use Types Packs/Day Years [...] COVID-19? Unable to assess 07/05/2020 1:28 PM WINDOWS SERVER ARCHITECT documented as of this encounter Plan of Treatment Upcoming Encounters Date Type Department Care Team (Late st Contact Info) Description 12/10/2023 9:30 AM CDT Office Visit [facility] [place] [address] [place] [address] [address] [place], [place] [address] [place] [address] [address] [place] [address] documented as of this encounter Visit Diagnoses Not on filedocumented in this encounter Additional Health Concerns Infection Onset Date Last Indicated Resolved Time Rule Out COVID-19 05/22/2023 05/22/2023 05/22/2023 1:25 AM WINDOWS SERVER ARCHITECT COVID-19 05/22/2023 05/22/2023 06/12/2023 11:3 9 PM WINDOWS SERVER ARCHITECT documented as of this encounter Care Teams Psychometric Examiner Relationship Specialty Start Date End Date Adams Barrera [address] [place] [address] [facility] 195 [place], [place] [address] PCP - General 03/30/20 Celia Kumar MD [address] [place] [address] [facility] 195 [place], [place] [address] Plastic Surgery 04/20/15 Charan Corbin MD [address] [place] [address] [facility] 101 [place], [place] [address] INTERNAL MEDICINE - ENDOCRINOLOGY, DIABETES & METABOLISM 06/19/15 Celia Kumar MD [address] [place] [address] [facility] 195 [place] [address] Assigned Surgical Provider 03/23/20 12/20/21 Carolina De Dios APRN CREEL OPERATOR 420 [facility] 195 [place] [address] Assigned Heart and Vascular Provider 12/14/20 09/12/22 [place] [address] [place] [address] Assigned PCP 03/21/21 Greta Thao APRN CREEL OPERATOR [facility] [address] [place] [address] Nurse Practitioner Cardiology 06/09/23 Greta Thao APRN CREEL OPERATOR [facility] [address] [place] [address] Assigned Heart and Vascular Provider 06/25/23 documented as of this encounter
--- OUTSIDE RECORDS SUMMARY | 2023-11-30 08:41 | XMS_ITS | Encounter Summary ---
Author Organization [facility] Address [address] [place] [address] Care Team Providers Care General Accounting Clerk Name Role Phone Celia Kumar MD Unavailable [phone] Charan Corbin MD Unavailable [phone] Celia Kumar MD Unavailable [phone] Adams Barrera Primary Care Provider [phone] Carolina De Dios CLINICAL ENGINEER MICROBIOLOGICAL LABORATORY TECHNICIAN Unavailable Loyda Deborah Rust MD Unavailable Greta Thao CLINICAL ENGINEER MICROBIOLOGICAL LABORATORY TECHNICIAN Unavailable + [phone] Greta Thao APRN MICROBIOLOGICAL LABORATORY TECHNICIAN Unavailable + [phone] Encounter Details Date Type Department Care Team (Late st Contact Info) Description 06/25/2020 Records - [facility] [place] [address] [place] [address] Zoraida Ellis, RN Social History [...] COVID-19? No / Unsure 06/28/2020 1:07 PM MODELING INSTRUCTOR documented as of this encounter Progress Notes * Zoraida Ellis, RN - 06/25/2020 12:15 PM CST 05/23/20 0001 Discharge Planning Patient expects to be discharged to: Assisted Living Facility Living Arrangements Alone Type of Residence Assisted living Do you have stairs? No Support Systems Other (Comment) (Help from assisted living staff) Pt/Rep Education / Interventions Discuss d/c LING INSTRUCTOR documented in this encounter Plan of Treatment Upcoming Encounters Date Type Department Care Team (Late st Contact Info) Description 12/10/2023 9:30 AM CDT Office Visit [facility] [address] [place], [place] [address] Haley Khanna [place] [id number] [place] [address] [address] [place] 012067 documented as of this encounter Visit Diagnoses Not on filedocumented in this encounter Additional Health Concerns Infection Onset Date Last Indicated Resolved Time Rule Out COVID-19 05/22/2023 05/22/2023 05/22/2023 1:25 AM MODELING INSTRUCTOR COVID-19 05/22/2023 05/22/2023 06/12/2023 11:3 9 PM MODELING INSTRUCTOR documented as of this encounter Care Teams General Accounting Clerk Relationship Specialty Start Date End Date Adams Barrera [address] [place] [address] [facility] 195 [place], [place] [address] PCP - General 03/30/20 Celia Kumar MD [address] [place] [address] [facility] 195 [place], [place] [address] Plastic Surgery 04/20/15 Charan Corbin MD [address] [facility] 101 [place] [address] INTERNAL MEDICINE - ENDOCRINOLOGY, DIABETES & METABOLISM 06/19/15 Celia Kumar MD [address] [facility] 195 [place] [address] Assigned Surgical Provider 03/23/20 12/20/21 Carolina De Dios APRN MICROBIOLOGICAL LABORATORY TECHNICIAN 420 [facility] 195 [place] [address] Assigned Heart and Vascular Provider 12/14/20 09/12/22 [place] [address] [place] [address] Assigned PCP 03/21/21 Greta Thao APRN MICROBIOLOGICAL LABORATORY TECHNICIAN [facility] [place] [address] [place] [address] Nurse Practitioner Cardiology 06/09/23 Greta Thao APRN MICROBIOLOGICAL LABORATORY TECHNICIAN [facility] [place] [address] [place] [address] Assigned Heart and Vascular Provider 06/25/23 documented as of this encounter
== END 2023-11-17 23:54 | disposition home or self-care (01) ==
LOC: AMB 11-30 08:31
PROVIDERS: Visit Provider Family Medicine
DX: I95.9 Hypotension, unspecified (principal); R41.82 Altered mental status, unspecified
CPT/HCPCS: A0425; A0427

== ENCOUNTER 2024-11-04 08:11 | Outpatient (CLI) | payer OTHER, SELFPAY | END 2024-11-04 08:12 | disposition home or self-care (01) | PROVIDERS: Visit Provider Family Medicine | DX: R10.9 Unspecified abdominal pain (principal) | CPT/HCPCS: A0425; A0427 ==

== ENCOUNTER 2025-02-01 22:08 | Outpatient (CLI) | payer OTHER, SELFPAY | END 2025-02-01 22:09 | disposition home or self-care (01) | LOC: AMB 02-02 15:10 | PROVIDERS: Visit Provider Family Medicine | DX: S09.90XA Unspecified injury of head, initial encounter (principal); W01.0XXA Fall on same level from slipping, tripping and stumbling without subsequent striking against object, initial encounter; Y92.000 Kitchen of unspecified non-institutional (private) residence as the place of occurrence of the external cause | CPT/HCPCS: A0998 ==

== ENCOUNTER 2025-03-15 16:36 | Outpatient (CLI) | payer MEDICARE, MEDICAID, SELFPAY | END 2025-03-15 16:37 | disposition home or self-care (01) | LOC: AMB 03-17 01:24 | PROVIDERS: Visit Provider Emergency Medicine Emergency Medical Services | DX: R10.9 Unspecified abdominal pain (principal); R11.2 Nausea with vomiting, unspecified; R19.7 Diarrhea, unspecified | CPT/HCPCS: A0425; A0427 ==